=== PATIENT | female | born 1940 | race Caucasian/White ===

== ENCOUNTER 2017-06-14 23:19 | Emergency (ER) | payer MEDICARE, SELFPAY ==
[2017-06-14 23:19] VITALS: BP 201/83; PULSE 102; RESP 16; TEMP 36.3; O2SAT 98; BMI 27.4
[2017-06-14 23:50] VITALS: BP 165/73; PULSE 78; RESP 18; O2SAT 98
--- NOTE | 2017-06-15 00:16 | ED.VISSUMM ---
- ER Visit Summary Date of Service: 06/15/17 Chief Complaint: Allergic reaction History of Present Illness: The patient is a 76 F presents with concerns allergic reaction with itching on the skin in her thighs. No lip or tongue swelling. No trouble breathing. History of psoriasis and itching around these regions. States proximal week ago seen in the ED for swelling of the lips. She is on losartan. Follow-up with her PCP yesterday, losartan is held. She is referred to an knitting inspector pending appointment. No new foods. No change in soaps or detergents. She is only on topical creams for her psoriasis. No history of diabetes. Physical Examination: General: Alert and oriented ?3, no acute distress HEENT: Normocephalic, atraumatic. Moist mucosa membranes Neck: supple, nontender. Cardiovascular: Regular rate and rhythm, no murmurs Respiratory: Normal breath sounds, symmetric, no distress Abdomen: Soft, nontender, nondistended Extremities: Nontender, no edema, pulses intact ?4 Neuro: no focal neurological deficits. Skin: Psoriasis plaques on her bilateral lateral thighs, volar forearm, back or her symptoms are. There is no urticaria. No active drainage. Nontender to palpation. Test Results: [] Emergency Department Course and Treatment: Patient with pruritic symptoms around her psoriasis plaques. There is no signs of infection. She is not a diabetic. She will be placed on prednisone for 10 days. She did an elevated blood pressure 201/83 in the triage. Checked in the room, 190/68. She is on blood pressure medications. She is asymptomatic. She will recheck as an outpatient. Treatment Plan: [] Disposition: Discharge Impression: 1. Psoriasis 2. Elevated blood pressure This note was generated with [employer] software. It may contain incorrect words, spelling, and punctuation that were not noted in review of the chart prior to signing ED Disposition - Plan for ED Patient: Disposition: Home or Assisted Living Chief Complaint: Allergic Reaction Diagnosis: Psoriasis, Elevated blood pressure reading Instructions: ED Psoriasis Prescriptions: Prednisone 20 mg PO DAILY #10 tablet Referrals: Marilu Singletary MD [Primary Care Provider] - 5-7 Days Additional Instructions: Blood pressure 190/68. Take your blood pressure medicines record her blood pressure at home. Follow-up with your doctor. Take steroids as prescribed. Follow-up with her knitting inspector's for evaluation as referred by your PCP.
--- NOTE | 2017-06-15 00:21 | ED.DCSUM_ITS ---
- ER Visit Summary Date of Service: 06/15/17 Chief Complaint: Allergic reaction History of Present Illness: The patient is a 76 F presents with concerns allergic reaction with itching on the skin in her thighs. No lip or tongue swelling. No trouble breathing. History of psoriasis and itching around these regions. States proximal week ago seen in the ED for swelling of the lips. She is on losartan. Follow-up with her PCP yesterday, losartan is held. She is referred to an airplane engineer pending appointment. No new foods. No change in soaps or detergents. She is only on topical creams for her psoriasis. No history of diabetes. Physical Examination: General: Alert and oriented ?3, no acute distress HEENT: Normocephalic, atraumatic. Moist mucosa membranes Neck: supple, nontender. Cardiovascular: Regular rate and rhythm, no murmurs Respiratory: Normal breath sounds, symmetric, no distress Abdomen: Soft, nontender, nondistended Extremities: Nontender, no edema, pulses intact ?4 Neuro: no focal neurological deficits. Skin: Psoriasis plaques on her bilateral lateral thighs, volar forearm, back or her symptoms are. There is no urticaria. No active drainage. Nontender to palpation. Test Results: [] Emergency Department Course and Treatment: Patient with pruritic symptoms around her psoriasis plaques. There is no signs of infection. She is not a diabetic. She will be placed on prednisone for 10 days. She did an elevated blood pressure 201/83 in the triage. Checked in the room, 190/68. She is on blood pressure medications. She is asymptomatic. She will recheck as an outpatient. Treatment Plan: [] Disposition: Discharge Impression: 1. Psoriasis 2. Elevated blood pressure This note was generated with [employer] software. It may contain incorrect words, spelling, and punctuation that were not noted in review of the chart prior to signing ED Disposition - Plan for ED Patient: Disposition: Home or Assisted Living Chief Complaint: Allergic Reaction Diagnosis: Psoriasis, Elevated blood pressure reading Instructions: ED Psoriasis Prescriptions: Prednisone 20 mg PO DAILY #10 tablet Referrals: Marilu Singletary MD [Primary Care Provider] - 5-7 Days Additional Instructions: Blood pressure 190/68. Take your blood pressure medicines record her blood pressure at home. Follow-up with your doctor. Take steroids as prescribed. Follow-up with her airplane engineer's for evaluation as referred by your PCP.
[2017-06-15] MEDS: DiphenhydrAMINE 25 MG Capsule 50 MG PO (00:49)
== END 2017-06-15 00:50 | disposition home or self-care (01) ==
PROVIDERS: Emergency Provider Emergency Medicine; Family Provider Internal Medicine; PCP Internal Medicine
DX: L40.9 Psoriasis, unspecified (principal); I10 Essential (primary) hypertension; E78.00 Pure hypercholesterolemia, unspecified; I25.10 Atherosclerotic heart disease of native coronary artery without angina pectoris; Z95.1 Presence of aortocoronary bypass graft; Z85.3 Personal history of malignant neoplasm of breast; Z72.0 Tobacco use
CPT/HCPCS: 99283

== ENCOUNTER 2017-06-22 20:17 | Observation (INO) | payer MEDICARE, SELFPAY ==
[2017-06-22 20:18] VITALS: BP 181/75; PULSE 72; RESP 18; TEMP 36.7; O2SAT 97; BMI 27.3
--- NOTE | 2017-06-22 20:35 | EKG12_ITS ---
Test Reason : CP Blood Pressure : / mmHG Vent. Rate : 076 BPM Atrial Rate : 076 BPM P-R Int : 164 ms QRS Dur : 094 ms QT Int : 400 ms P-R-T Axes : 068 035 088 degrees QTc Int : 450 ms Normal sinus rhythm Septal infarct , age undetermined Abnormal ECG Confirmed by FAYE DELGADILLO, KAREN ([id number]), news video editor FABIEN COVARRUBIAS ([id number]) on 06/28/2017 2:02:19 PM Referred By: Marilu Singletary Confirmed By:KAREN MCKINNEY MD
--- NOTE | 2017-06-22 20:35 | RAD_ITS ---
STUDY: X-RAY CHEST REASON FOR EXAM: Female, 76 years old. Chest pain TECHNIQUE: Single AP portable view of the chest. COMPARISON: None. FINDINGS: The lungs are clear and expanded. There is no demonstrated pleural abnormality. Normal size heart. Patient status post sternotomy. Normal mediastinum and erasmo. Normal visualized pulmonary arteries. Normal visualized aortic arch and descending thoracic aorta. Normal visualized thoracic spine. Normal visualized ribs, clavicles, and shoulders. Right and left axillary surgical clips. There is no demonstrated abnormality of the visualized soft tissue structures of the upper abdomen. RAD/Chest 1 View (Portable) IMPRESSION: No acute infiltrate. Electronically Signed: Brian Shen DO at 20:57 EST , Service support ,
[2017-06-22 20:39] VITALS: BP 181/75; PULSE 74; RESP 15; O2SAT 95; O2SAT 96
[2017-06-22 20:47] LABS: Absolute Lymphocyte Count 3.33 X10^3/ul (0.83-4.51); Absolute Neutrophil Count 7.6 X10^3/uL (2.0-7.7); Basophil# 0.04 X10^3/uL; Basophil% 0.3 % (0-1); Eosinophil# 0.35 X10^3/uL; Eosinophils% 2.8 % (0-5); Hematocrit 32.7 % (37-47); Hemoglobin 9.8 g/dl (12.0-15.0); Lymphocyte # 3.33 X10^3/ul (4.0); Lymphocyte % 26.9 % (19-41); Mean Corpuscular Volume 80.1 fL (81-99); Mean Platelet Vol. 8.6 fl (6.2-12.0); Monocyte# 1.01 X10^3/uL; Monocyte% 8.2 % (0-10); Neutrophil # 7.61 X10^3/uL (2.7-7.7); Neutrophil % 61.5 % (47-70); Platelet Count 336 K/mm3 (150-450); RBC Distribution Width CV 16.4 % (11.6-14.6); RBC Distribution Width SD 47.8 fl (35.1-43.9); Red Blood Count 4.08 M/mm3 (4.2-5.4); White Blood Count 12.4 K/mm3 (4.4-11.0)
[2017-06-22 20:48] LABS: POSITIVE COUNT NO; POSITIVE DIFFERENTIAL NO; POSITIVE MORPHOLOGY NO
[2017-06-22 21:07] LABS: Anion Gap 9 (5-15); BUN 19 mg/dL (7-18); BUN/Creat Ratio 15.1 RATIO (10-20); Calcium,Total 8.3 mg/dL (8.5-10.1); Chloride 102 mmol/L (98-107); Creatinine, Serum 1.26 mg/dL (0.55-1.02); EST Glomerular Filtration Rate 44 mL/min (>60); Est Glom Filt Rate - Afr Amer 53 mL/min (>60); Estimated Creatinine Clearance 34.18 ml/min; Glucose 102 mg/dL (74-106); Sodium Level 139 mmol/L (136-145)
[2017-06-22 21:20] VITALS: BP 167/72; PULSE 75; RESP 16; O2SAT 100
[2017-06-22 22:15] VITALS: BP 139/62; PULSE 76; RESP 16; O2SAT 97
--- NOTE | 2017-06-22 22:43 | PCM.HP.STD ---
Problem List (1) Atypical chest pain Status: Acute (2) SOB (shortness of breath) on exertion Status: Chronic (3) Sleep disorder breathing Status: Chronic (4) History of mastectomy Status: Resolved (5) GERD (gastroesophageal reflux disease) Status: Chronic (6) HTN (hypertension) Status: Chronic (7) Psoriasis Status: Chronic (8) Carotid stenosis Status: Chronic (9) Paroxysmal A-fib Status: Chronic (10) Hypercholesterolemia Status: Chronic (11) CAD (coronary artery disease) Status: Chronic (12) Effusion, left knee Status: Chronic (13) Osteoarthritis Status: Chronic (14) Sleep disorder Status: Chronic (15) Tobacco abuse Status: Chronic (16) PND (post-nasal drip) Status: Chronic (17) DENVER (obstructive sleep apnea) Status: Chronic History of Present Illness Date of Admission: 06/23/17 Chief Complaint: Chest tightness bilateral today The patient is a 76 year old F with multiple comorbidities including coronary artery disease status post two-vessel CABG and bioprosthetic aortic valve replacement in August 2013, and [facility], his floor coverer Dr. Espinoza bilateral carotid endarterectomy came to ER with chest tightness across both chest in the evening today. Chest pain started spontaneously while patient was feeding her cats, persistent with radiation to bilateral carotids and neck. This was not associated with shortness of breath, palpitation, or syncope but patient felt mildly dizzy and her eyes were fluttering. Patient also had sweating. In the ED, EKG shows normal sinus rhythm at 76 bpm with old septal infarct. No change from the previous EKG of January 2016. Patient is further admitted. [] Past Medical History Past Medical History (Chronic Problems): Chronic Problems (Last Reviewed 06/22/17 @ 17:01 by Marci Zabala NP-C) SOB (shortness of breath) on exertion (Chronic) Sleep disorder breathing (Chronic) GERD (gastroesophageal reflux disease) (Chronic) HTN (hypertension) (Chronic) Psoriasis (Chronic) Carotid stenosis (Chronic) Paroxysmal A-fib (Chronic) Hypercholesterolemia (Chronic) CAD (coronary artery disease) (Chronic) Effusion, left knee (Chronic) Osteoarthritis (Chronic) Sleep disorder (Chronic) Tobacco abuse (Chronic) PND (post-nasal drip) (Chronic) DENVER (obstructive sleep apnea) (Chronic) Allergies Sulfa (Sulfonamide Antibiotics) Allergy (Severe, Verified 06/22/17 12:50) HEART RACING Latex, Natural Rubber Allergy (Verified 06/22/17 12:50) Rash amoxicillin [From Augmentin] Adverse Reaction (Verified 06/22/17 14:25) Nausea atorvastatin [From Lipitor] Adverse Reaction (Verified 06/22/17 14:25) Other CRAMPS clavulanic acid [From Augmentin] Adverse Reaction (Verified 06/22/17 14:25) Nausea Iodinated Contrast- Oral and IV Dye [CONTRASTS] Adverse Reaction (Verified 06/22/17 12:50) Other LOCKJAW niacin [From Niaspan Extended-Release] Adverse Reaction (Verified 06/22/17 14:25) Other FLUSH rosuvastatin [From Crestor] Adverse Reaction (Verified 06/22/17 14:25) Other CRAMPS turkey grease Adverse Reaction (Uncoded 06/22/17 12:50) Rash Home Medications: Ambulatory Orders Medication Instructions Recorded Cilostazol [Pletal] 50 mg PO BIDAC 09/01/13 Clopidogrel Bisulfate [Plavix] 75 mg PO DAILY 09/01/13 Ezetimibe [Zetia] 10 mg PO DAILY 09/01/13 Metoprolol Tartrate [Lopressor 75 mg PO BID 09/01/13 (Beta Johnathon)] Nitroglycerin [Nitrostat] 0.4 mg SUBLINGUAL Q5M PRN 09/01/13 Pantoprazole Sodium [Protonix] 40 mg PO DAILY 09/01/13 Triamterene 37.5MG/Hctz 25MG 1 tab PO DAILY 09/01/13 [Maxzide 37.5 mg-25 mg Tablet] Aspirin E.C. [Ecotrin] 1 tab PO DAILY 01/24/16 Acetaminophen [Tylenol] 325 mg PO PRN PRN 03/08/16 Niacin (Inositol Niacinate) 1,000 mg PO BID 03/08/16 [Niacin Flush Free 500 mg Cap] Prednisone 10 mg PO DAILY 06/22/17 Smoking Status: Never smoker - *Family History Paternal History Items: No pertinent history Review of Systems Constitutional: Denies: Chills, Fever, Weight Change HEENT: Denies: Head Aches, Sinus Congestion, Sinus Drainage Cardiovascular: Reports: Chest Tightness, - - History of CABG. Denies: Chest Pain, Palpitations Respiratory: Reports: Shortness of breath upon exertion. Denies: Cough, Shortness of breath at rest, Sputum production Gastrointestinal: Denies: Abdominal Pain, Nausea, Vomiting Genitourinary: Denies: Dysuria Musculoskeletal: Denies: Joint Pain, Joint Tenderness Skin: Denies: Rash, Wounds Neurological: Denies: Numbness, Tingling, Focal weakness Psychiatric: Denies: Anxiety, Depression, Homicidal Ideations, Suicidal Ideations Hematologic/ Lymphatic: Denies: Easy Bruising, Easy Bleeding VTE Information - Inpt Only VTE Present on Admission: No VTE Mechan Device Prophylaxis: SCD's VTE Pharm Prophylaxis ordered?: Yes Patient Problems: Active and Suspected Problems (Last Reviewed 06/22/17 @ 17:01 by Marci Zabala NP-C) Atypical chest pain (Acute) - Physical Exam General: Alert, Oriented x3, Cooperative HEENT: Atraumatic, PERRLA, EOMI, Normocephalic Neck: Supple, No JVD, Negative Carotid Bruits Lungs: Diminished, Rhonchi - Bilateral expiratory rhonchi present Cardiovascular: Regular rate, Regular Rhythm, Normal S1, Normal S2, No murmurs, - - CABG scar present Abdomen: Bowel Sounds Present, Soft, Non Tender, Non-Distended Extremities: No edema, Capillary Refill Less than 3 Seconds Skin: No breakdown, Rash Present - Patient has diffuse psoriatic rash mainly on lower legs and lumbar spinal region. Musculoskeletal: No Tenderness to Palpation of Joints or Extremities, Arthritic Changes Neurological: Cranial nerves II-XII grossly intact Psych/Mental Status: Normal Affect, Appropriate Vital Signs Temp Pulse Resp BP Pulse Ox 98.1 F 76 16 139/62 H 97 06/22/17 20:18 06/22/17 22:15 06/22/17 22:15 06/22/17 22:15 06/22/17 22:15 Assessment/Plan Active and Suspected Problems (Last Reviewed 06/22/17 @ 17:01 by Marci Zabala NP-C) Atypical chest pain (Acute) The patient is a 76 year old F with multiple comorbidities including coronary artery disease status post two-vessel CABG and bioprosthetic aortic valve replacement in August 2013, and [facility], his floor coverer Dr. Espinoza bilateral carotid endarterectomy, left CVA 1988, right CEA 1998 came to ER with chest tightness across both chest in the evening today. Chest pain started spontaneously while patient was feeding her cats, persistent with radiation to bilateral carotids and neck. This was not associated with shortness of breath, palpitation, or syncope but patient felt mildly dizzy and her eyes were fluttering. Patient also had sweating. In the ED, EKG shows normal sinus rhythm at 76 bpm with old septal infarct. No change from the previous EKG of January 2016. Patient is further admitted. 1. Atypical chest tightness, rule out acute coronary syndrome: Patient is admitted on the PCU. On ACS protocol with serial cardiac enzymes and if negative Lexiscan stress test tomorrow morning. Continue aspirin, Plavix, metoprolol and Zetia. Nitro sublingual and/or Nitro ointment as needed for chest pain 2. Cardiac disease: Coronary artery disease status post two-vessel CABG, valvular heart disease, aortic stenosis status post bioprosthetic bovine aortic valve replacement and paroxysmal A. fib: Continue home cardiac medications. 3. Peripheral arterial disease: Bilateral carotid stenosis: Admission above patient had bilateral CVA. As per patient, last carotid Doppler shows 75% carotid stenosis in left, 65% on right carotid artery. He is on cilostazol. 4. COPD with sleep disorder: Patient is still a smoker and smokes about 5 cigarettes daily, started at the age of 25. Smoking cessation counseling done. On bronchodilator. Advair added. CA breast status post bilateral mastectomy: Patient had right CA breast and benign cyst in the left breast. She had mastectomy in 1988. In remission. 5. Other multiple comorbidities include hypertension, osteoarthritis, obstructive sleep apnea, diffuse cutaneous psoriasis, GERD: Home medication reconciliation done. Code Visit OBSV E&M: 99582 Initial observation care L3
--- NOTE | 2017-06-22 22:53 | ED.VISSUMM ---
- ER Visit Summary Date of Service: 06/22/17 Chief Complaint: Chest pain History of Present Illness: The patient is a [address] Espinoza, Dr. Singletary, and Dr. Neves. She reports is 645 this evening while feeding the cat she had an onset of a substernal pressure and tightness. This radiates up into her neck. Made her very nauseated, diaphoretic, and lightheaded. She reports pain is 5 out of 10 severity at worst and currently. However, she reports that it is worse if she walks around. It is relieved by rest. States that she took nitroglycerin and to decrease the sweating associated with this. Physical Examination: Vitals: Stable. Afebrile. General: Well-nourished and well-developed. Head: Normocephalic atraumatic. Neck: Supple, no lymphadenopathy. No JVD. Nontender. Cardiovascular: Regular rate and rhythm. No murmurs. Respiratory: No respiratory distress. Clear to auscultation bilaterally. Abdominal: Soft, nontender, nondistended, normal bowel sounds. No guarding, rebound, or peritoneal signs. Back: Nontender. Extremities: Nontender, no edema. Skin: Normal color, no rash. Neurologic: Alert and oriented ?3. Cranial nerves II through XII are intact. Normal strength and sensation. Psych: Normal affect. Test Results: EKG is sinus at [address] changes. It actually looks better than her last EKG in 2016. CBC is more for white count of 12.4, H&H of 9.8 and 32.7. Chem-7 is more for BUN of 19, creatinine 1.26, calcium 8.3. Troponin is negative. Chest x-ray shows cardiomegaly and no acute disease. Emergency Department Course and Treatment: She was treated with aspirin. She refused any further nitro or pain medications. She is resting comfortably. Treatment Plan: The patient was discussed with Dr. Costa. She will be admitted to the hospital for further wish and treatment. Disposition: Admitted in improved condition. Impression: 1. Chest pain. 2. AVA score 4. This note was generated with uromovie dictation software. It may contain incorrect words, spelling, and punctuation that were not noted in review of the chart prior to signing ED Disposition - Plan for ED Patient: Chief Complaint: Chest Pain
--- NOTE | 2017-06-22 22:56 | ED.DCSUM_ITS ---
- ER Visit Summary Date of Service: 06/22/17 Chief Complaint: Chest pain History of Present Illness: The patient is a [address] Espinoza, Dr. Singletary, and Dr. Neves. She reports is 645 this evening while feeding the cat she had an onset of a substernal pressure and tightness. This radiates up into her neck. Made her very nauseated, diaphoretic, and lightheaded. She reports pain is 5 out of 10 severity at worst and currently. However, she reports that it is worse if she walks around. It is relieved by rest. States that she took nitroglycerin and to decrease the sweating associated with this. Physical Examination: Vitals: Stable. Afebrile. General: Well-nourished and well-developed. Head: Normocephalic atraumatic. Neck: Supple, no lymphadenopathy. No JVD. Nontender. Cardiovascular: Regular rate and rhythm. No murmurs. Respiratory: No respiratory distress. Clear to auscultation bilaterally. Abdominal: Soft, nontender, nondistended, normal bowel sounds. No guarding, rebound, or peritoneal signs. Back: Nontender. Extremities: Nontender, no edema. Skin: Normal color, no rash. Neurologic: Alert and oriented ?3. Cranial nerves II through XII are intact. Normal strength and sensation. Psych: Normal affect. Test Results: EKG is sinus at [address] changes. It actually looks better than her last EKG in 2016. CBC is more for white count of 12.4, H& H of 9.8 and 32.7. Chem-7 is more for BUN of 19, creatinine 1.26, calcium 8.3. Troponin is negative. Chest x-ray shows cardiomegaly and no acute disease. Emergency Department Course and Treatment: She was treated with aspirin. She refused any further nitro or pain medications. She is resting comfortably. Treatment Plan: The patient was discussed with Dr. Costa. She will be admitted to the hospital for further wish and treatment. Disposition: Admitted in improved condition. Impression: 1. Chest pain. 2. AVA score 4. This note was generated with [employer] dictation software. It may contain incorrect words, spelling, and punctuation that were not noted in review of the chart prior to signing ED Disposition - Plan for ED Patient: Chief Complaint: Chest Pain
[2017-06-22 23:09] VITALS: BP 113/55; PULSE 81; RESP 20; TEMP 36.7; O2SAT 97
[2017-06-23] VITALS (11 sets, daily range): BP systolic 131–143; BP diastolic 58–78; PULSE 70–83; RESP 12–16; TEMP 36.6–37.1; O2SAT 92–98; BMI 27.9; BMI 28.0
[2017-06-23 01:22] LABS: BNP,B-Type NATRIURETIC PEPTIDE 65.4 pg/mL (0-100)
[2017-06-23 05:28] LABS: Absolute Lymphocyte Count 2.55 X10^3/ul (0.83-4.51); Basophil# 0.04 X10^3/uL; Basophil% 0.4 % (0-1); Eosinophil# 0.38 X10^3/uL; Eosinophils% 3.5 % (0-5); Hemoglobin 9.7 g/dl (12.0-15.0); Lymphocyte # 2.55 X10^3/ul (4.0); Lymphocyte % 23.8 % (19-41); Mean Corp Hgb Conc 30.3 g/gl (32-36); Mean Corpuscular Hgb 24.4 pg (27.0-32.0); Mean Corpuscular Volume 80.4 fL (81-99); Mean Platelet Vol. 8.5 fl (6.2-12.0); Monocyte# 0.75 X10^3/uL; Neutrophil # 6.97 X10^3/uL (2.7-7.7); Platelet Count 361 K/mm3 (150-450); RBC Distribution Width CV 16.4 % (11.6-14.6); RBC Distribution Width SD 47.3 fl (35.1-43.9); Red Blood Count 3.98 M/mm3 (4.2-5.4); White Blood Count 10.7 K/mm3 (4.4-11.0)
[2017-06-23 05:34] LABS: International Normalized Ratio 1.1
[2017-06-23 05:35] LABS: Partial Thromboplast Time 31.8 Seconds (24.1-36.2)
[2017-06-23 05:42] LABS: POSITIVE COUNT NO; POSITIVE DIFFERENTIAL NO; POSITIVE MORPHOLOGY NO
[2017-06-23 05:51] LABS: AST(SGOT) 16 U/L (15-37); Alanine Aminotransfer ALT/SGPT 17 U/L (13-56); Albumin, Serum 3.2 g/dL (3.2-5.0); Alkaline Phosphatase 74 U/L (45-117); Anion Gap 7 (5-15); BUN 18 mg/dL (7-18); BUN/Creat Ratio 16.8 RATIO (10-20); Calcium,Total 8.4 mg/dL (8.5-10.1); Chloride 102 mmol/L (98-107); Cholesterol 180 mg/dL (200); Creatinine, Serum 1.07 mg/dL (0.55-1.02); EST Glomerular Filtration Rate 53 mL/min (>60); Est Glom Filt Rate - Afr Amer 64 mL/min (>60); Estimated Creatinine Clearance 38.63 ml/min; Globulin 3.3 g/dL (2.2-4.2); Glucose 83 mg/dL (74-106); High Density Lipoprotein 56 mg/dL; Magnesium 2.1 mg/dL (1.6-2.6); Potassium 4.1 mmol/L (3.5-5.1); Protein, Total 6.5 g/dL (6.4-8.2); Sodium Level 139 mmol/L (136-145); Thyroid Stim Hormone (TSH) 4.38 uIU/mL (0.358-3.74); Triglycerides 162 mg/dL; Very Low Density Lipoprotein 32 mg/dL (5-40)
--- NOTE | 2017-06-23 05:55 | EKG12_ITS ---
Test Reason : EM AKG Blood Pressure : / mmHG Vent. Rate : 077 BPM Atrial Rate : 077 BPM P-R Int : 152 ms QRS Dur : 092 ms QT Int : 386 ms P-R-T Axes : 067 018 097 degrees QTc Int : 436 ms Normal sinus rhythm Septal infarct , age undetermined Abnormal ECG When compared with ECG of 22-JUN-2017 20:22, MANUAL COMPARISON REQUIRED, DATA IS UNCONFIRMED Confirmed by FAYE DELGADILLO, KAREN ([id number]), state editor FABIEN COVARRUBIAS ([id number]) on 06/29/2017 1:18:59 PM Referred By: Confirmed By:KAREN MCKINNEY MD
[2017-06-23] MEDS: Aspirin E.C. 81 MG Tablet PO (06:32)
[2017-06-23] MEDS: Clopidogrel Bisulfate 75 MG Tablet PO (06:32)
[2017-06-23] MEDS: Cilostazol 50 MG Tablet PO (06:32)
[2017-06-23] MEDS: 0.9% NaCl Peripheral Flush Adult/Peds IV (06:34)
--- NOTE | 2017-06-23 10:47 | STRESSREP ---
Stress Test Report Pharmacologic myocardial perfusion stress test. 76-year-old lady with a history of chest pain. Stress protocol: Resting EKG demonstrates normal sinus rhythm with a rate of 83 bpm. Resting blood pressure is 184/70 mmHg. 0.4 mg of regadenoson was infused per usual protocol followed by rapid intravenous saline flush injection. Continuous EKG monitoring was performed. There were no ST or T-wave changes noted suggest abnormal flow reserve and at peak infusion no ST or T-wave changes were noted to suggest abnormal flow reserve. No clinical angina was noted. Heart rate attained was 96 bpm which was 66% maximum predicted heart rate the maximum workload was 1 metabolic equivalent. Myocardial perfusion protocol. 11.2 mCi of technetium 99m sestamibi was injected at rest. 0.4 mg of regadenoson was infused per usual protocol. Peak infusion 32.8 mCi of technetium 99m sestamibi was injected. Stress images were obtained. Stress and rest images were reconstructed and compared in the short axis vertical long and horizontal long axis. Gated images were also obtained. Perfusion SPECT analysis: Review of the stress images demonstrate normal uptake of tracer noted in all areas of the myocardium. The resting images similarly demonstrate normal uptake of tracer noted in all areas of the myocardium. No areas of reversibility are noted suggest ischemia. Gated SPECT analysis: The gated ejection fraction is noted to be 83%. Conclusion: Normal pharmacologic myocardial perfusion stress test. Preserved ejection fraction.
--- NOTE | 2017-06-23 11:04 | PCM.DC ---
- Discharge Diagnoses Current Active Problems: Current Active and Chronic Problems (Last Reviewed 06/22/17 @ 17:01 by JACLYN Morales) Atypical chest pain (Acute) You will use the following diet at home:: Cardiac Discharge Activity: Return to Normal Activity Call your doctor if you observe: Shortness of breath, Dizziness, Fainting spells, Chest pain, Increased palpitations (irregular heartbeat) Allergies/Adverse Reactions: Allergies Sulfa (Sulfonamide Antibiotics) Allergy (Severe, Verified 06/22/17 12:50) HEART RACING Latex, Natural Rubber Allergy (Verified 06/22/17 12:50) Rash amoxicillin [From Augmentin] Adverse Reaction (Verified 06/22/17 14:25) Nausea atorvastatin [From Lipitor] Adverse Reaction (Verified 06/22/17 14:25) Other CRAMPS clavulanic acid [From Augmentin] Adverse Reaction (Verified 06/22/17 14:25) Nausea Iodinated Contrast- Oral and IV Dye [CONTRASTS] Adverse Reaction (Verified 06/22/17 12:50) Other LOCKJAW niacin [From Niaspan Extended-Release] Adverse Reaction (Verified 06/22/17 14:25) Other FLUSH rosuvastatin [From Crestor] Adverse Reaction (Verified 06/22/17 14:25) Other CRAMPS turkey grease Adverse Reaction (Uncoded 06/22/17 12:50) Rash Medications to take at Discharge Cilostazol [Pletal] 50 mg PO BIDAC 09/01/13 Clopidogrel Bisulfate [Plavix] 75 mg PO DAILY 09/01/13 Ezetimibe [Zetia] 10 mg PO DAILY 09/01/13 Metoprolol Tartrate [Lopressor (beta mariah)] 75 mg PO BID 09/01/13 Nitroglycerin [Nitrostat] 0.4 mg SUBLINGUAL Q5M PRN 09/01/13 Pantoprazole Sodium [Protonix] 40 mg PO DAILY 09/01/13 Triamterene 37.5MG/Hctz 25MG [Maxzide 37.5 mg-25 mg Tablet] 1 tab PO DAILY 09/01/13 Aspirin E.C. [Ecotrin] 1 tab PO DAILY 01/24/16 Acetaminophen [Tylenol] 325 mg PO PRN PRN 03/08/16 Niacin (Inositol Niacinate) [Niacin Flush Free 500 mg Cap] 1,000 mg PO BID 03/08/16 Primary Care Physician: Marilu Singletary MD [Primary Care Provider] - Please follow up with your Primary Care Physician in: 3-5 Days Please Follow Up With: Tanner Bro MD When: 1-2 Weeks Please Follow Up With: Sung Neves DO When: As scheduled Proposed Discharge Date: 06/23/17
--- NOTE | 2017-06-23 11:08 | DCINST_ITS ---
- Discharge Diagnoses Current Active Problems: Current Active and Chronic Problems (Last Reviewed 06/22/17 @ 17:01 by JACLYN Morales) Atypical chest pain (Acute) You will use the following diet at home:: Cardiac Discharge Activity: Return to Normal Activity Call your doctor if you observe: Shortness of breath, Dizziness, Fainting spells , Chest pain, Increased palpitations (irregular heartbeat) Allergies/Adverse Reactions: Allergies Sulfa (Sulfonamide Antibiotics) Allergy (Severe, Verified 06/22/17 12:50) HEART RACING Latex, Natural Rubber Allergy (Verified 06/22/17 12:50) Rash amoxicillin [From Augmentin] Adverse Reaction (Verified 06/22/17 14:25) Nausea atorvastatin [From Lipitor] Adverse Reaction (Verified 06/22/17 14:25) Other CRAMPS clavulanic acid [From Augmentin] Adverse Reaction (Verified 06/22/17 14:25) Nausea Iodinated Contrast- Oral and IV Dye [CONTRASTS] Adverse Reaction (Verified 06/22 12:50) Other LOCKJAW niacin [From Niaspan Extended-Release] Adverse Reaction (Verified 06/22/17 14:25 ) Other FLUSH rosuvastatin [From Crestor] Adverse Reaction (Verified 06/22/17 14:25) Other CRAMPS turkey grease Adverse Reaction (Uncoded 06/22/17 12:50) Rash Medications to take at Discharge Cilostazol [Pletal] 50 mg PO BIDAC 09/01/13 Clopidogrel Bisulfate [Plavix] 75 mg PO DAILY 09/01/13 Ezetimibe [Zetia] 10 mg PO DAILY 09/01/13 Metoprolol Tartrate [Lopressor (beta mariah)] 75 mg PO BID 09/01/13 Nitroglycerin [Nitrostat] 0.4 mg SUBLINGUAL Q5M PRN 09/01/13 Pantoprazole Sodium [Protonix] 40 mg PO DAILY 09/01/13 Triamterene 37.5MG/Hctz 25MG [Maxzide 37.5 mg-25 mg Tablet] 1 tab PO DAILY 09/01 Aspirin E.C. [Ecotrin] 1 tab PO DAILY 01/24/16 Acetaminophen [Tylenol] 325 mg PO PRN PRN 03/08/16 Niacin (Inositol Niacinate) [Niacin Flush Free 500 mg Cap] 1,000 mg PO BID 03/08 Primary Care Physician: Marilu Singletary MD [Primary Care Provider] - Please follow up with your Primary Care Physician in: 3-5 Days Please Follow Up With: Tanner Bro MD When: 1-2 Weeks Please Follow Up With: Sung Neves DO When: As scheduled Proposed Discharge Date: 06/23/17
--- NOTE | 2017-06-23 11:09 | PCM.DC.SUM ---
Discharge Date and Diagnosis Date of Admission: 06/23/17 Date of Discharge: 06/23/17 - Primary Discharge Diagnosis Active and Suspected Problems (Last Reviewed 06/22/17 @ 17:01 by JACLYN Morales) 1. Atypical chest pain- ACS ruled out. - Secondary Discharge Diagnosis Chronic Problems (Last Reviewed 06/22/17 @ 17:01 by JACLYN Morales) SOB (shortness of breath) on exertion (Chronic) Sleep disorder breathing (Chronic) GERD (gastroesophageal reflux disease) (Chronic) HTN (hypertension) (Chronic) Psoriasis (Chronic) Carotid stenosis (Chronic) Paroxysmal A-fib (Chronic) Hypercholesterolemia (Chronic) CAD (coronary artery disease) (Chronic) Effusion, left knee (Chronic) Osteoarthritis (Chronic) Sleep disorder (Chronic) Tobacco abuse (Chronic) PND (post-nasal drip) (Chronic) [place] (obstructive sleep apnea) (Chronic) Hospital Course and Treatment Imaging Results: 06/23/17 05:55 Nuclear Stress Test - Chemical [NM] AM (NON MEDS) Operations: None Procedures: Stress test Summary of Care Provided: The patient is a 76 year old F admitted 06/23/2017 due to chest tightness. 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 ACS ruled out. Troponin negative. Patient underwent nuclear stress test which was negative for ischemia. Chest x-ray unremarkable. She follows with Dr. Bro [facility]. Patient will continue outpatient follow-up with cardiology. She follows up with vascular at [facility] for carotid artery stenosis. Patient is undergoing workup for COPD with Dr. Neves. Chest pain has resolved. Patient was started on prednisone and Benadryl as outpatient for reported hives of unknown etiology. These were discontinued going forward. Chronic medical conditions as noted above are stable at this time. Patient seen and examined prior to discharge. Heart rate regular in rate and rhythm. Lungs clear, diminished. Neuro grossly intact. No edema. Patient is stable for discharge home with the follow-up as noted above. This patient was seen by JACLYN Escamilla under the supervision of Dr. Leong. Discharge Diet: Low fat/ Low Cholesterol Discharge Activity: Return to Normal Activity Call your doctor if you observe: Shortness of breath, Dizziness, Fainting spells, Chest pain, Increased palpitations (irregular heartbeat) Home Medications: Medications to take at Discharge Cilostazol [Pletal] 50 mg PO BIDAC 09/01/13 Clopidogrel Bisulfate [Plavix] 75 mg PO DAILY 09/01/13 Ezetimibe [Zetia] 10 mg PO DAILY 09/01/13 Metoprolol Tartrate [Lopressor (beta mariah)] 75 mg PO BID 09/01/13 Nitroglycerin [Nitrostat] 0.4 mg SUBLINGUAL Q5M PRN 09/01/13 Pantoprazole Sodium [Protonix] 40 mg PO DAILY 09/01/13 Triamterene 37.5MG/Hctz 25MG [Maxzide 37.5 mg-25 mg Tablet] 1 tab PO DAILY 09/01/13 Aspirin E.C. [Ecotrin] 1 tab PO DAILY 01/24/16 Acetaminophen [Tylenol] 325 mg PO PRN PRN 03/08/16 Niacin (Inositol Niacinate) [Niacin Flush Free 500 mg Cap] 1,000 mg PO BID 03/08/16 Primary Care Physician: Marilu Singletary MD [Primary Care Provider] - Please follow up with your Primary Care Physician in: 3-5 Days Please Follow Up With: Tanner Bro MD When: 1-2 Weeks Please Follow Up With: Sung Neves DO When: As scheduled Disposition: Home Minutes spent on discharge:: 35 Patient Condition:: Stable Meaningful Use Info Meaningful Use Diagnoses (Choose all that apply): None applicable
[2017-06-23] MEDS: Pantoprazole Sodium 40 MG Tablet PO (11:16)
[2017-06-23] MEDS: Metoprolol Tartrate 25 MG Tablet 75 MG PO (11:16)
--- NOTE | 2017-06-23 11:22 | DS.PCM_ITS ---
Discharge Date and Diagnosis Date of Admission: 06/23/17 Date of Discharge: 06/23/17 - Primary Discharge Diagnosis Active and Suspected Problems (Last Reviewed 06/22/17 @ 17:01 by JACLYN Morales) 1. Atypical chest pain- ACS ruled out. - Secondary Discharge Diagnosis Chronic Problems (Last Reviewed 06/22/17 @ 17:01 by JACLYN Morales) SOB (shortness of breath) on exertion (Chronic) Sleep disorder breathing (Chronic) GERD (gastroesophageal reflux disease) (Chronic) HTN (hypertension) (Chronic) Psoriasis (Chronic) Carotid stenosis (Chronic) Paroxysmal A-fib (Chronic) Hypercholesterolemia (Chronic) CAD (coronary artery disease) (Chronic) Effusion, left knee (Chronic) Osteoarthritis (Chronic) Sleep disorder (Chronic) Tobacco abuse (Chronic) PND (post-nasal drip) (Chronic) [place] (obstructive sleep apnea) (Chronic) Hospital Course and Treatment Imaging Results: 06/23/17 05:55 Nuclear Stress Test - Chemical [NM] AM (NON MEDS) Operations: None Procedures: Stress test Summary of Care Provided: The patient is a 76 year old F admitted 06/23/2017 due to chest tightness. 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 ACS ruled out. Troponin negative. Patient underwent nuclear stress test which was negative for ischemia. Chest x-ray unremarkable. She follows with Dr. Bro [facility]. Patient will continue outpatient follow-up with cardiology. She follows up with vascular at [facility] for carotid artery stenosis. Patient is undergoing workup for COPD with Dr. Neves. Chest pain has resolved. Patient was started on prednisone and Benadryl as outpatient for reported hives of unknown etiology. These were discontinued going forward. Chronic medical conditions as noted above are stable at this time. Patient seen and examined prior to discharge. Heart rate regular in rate and rhythm. Lungs clear, diminished. Neuro grossly intact. No edema. Patient is stable for discharge home with the follow-up as noted above. This patient was seen by JACLYN Escamilla under the supervision of Dr. Leong. Discharge Diet: Low fat/ Low Cholesterol Discharge Activity: Return to Normal Activity Call your doctor if you observe: Shortness of breath, Dizziness, Fainting spells , Chest pain, Increased palpitations (irregular heartbeat) Home Medications: Medications to take at Discharge Cilostazol [Pletal] 50 mg PO BIDAC 09/01/13 Clopidogrel Bisulfate [Plavix] 75 mg PO DAILY 09/01/13 Ezetimibe [Zetia] 10 mg PO DAILY 09/01/13 Metoprolol Tartrate [Lopressor (beta mariah)] 75 mg PO BID 09/01/13 Nitroglycerin [Nitrostat] 0.4 mg SUBLINGUAL Q5M PRN 09/01/13 Pantoprazole Sodium [Protonix] 40 mg PO DAILY 09/01/13 Triamterene 37.5MG/Hctz 25MG [Maxzide 37.5 mg-25 mg Tablet] 1 tab PO DAILY 09/01 Aspirin E.C. [Ecotrin] 1 tab PO DAILY 01/24/16 Acetaminophen [Tylenol] 325 mg PO PRN PRN 03/08/16 Niacin (Inositol Niacinate) [Niacin Flush Free 500 mg Cap] 1,000 mg PO BID 03/08 Primary Care Physician: Marilu Singletary MD [Primary Care Provider] - Please follow up with your Primary Care Physician in: 3-5 Days Please Follow Up With: Tanner Bro MD When: 1-2 Weeks Please Follow Up With: Sung Neves DO When: As scheduled Disposition: Home Minutes spent on discharge:: 35 Patient Condition:: Stable Meaningful Use Info Meaningful Use Diagnoses (Choose all that apply): None applicable
[2017-06-23] MEDS: Albuterol 2.5 MG/3 ML VIAL.NEB. INHALATION (12:55)
[2017-06-23] MEDS: Budesonide Respules 0.5 MG/2 ML AMPUL.NEB. INHALATION (12:55)
== END 2017-06-23 11:06 | disposition home or self-care (01) ==
LOC: ED 20:54 → PCU 22:42
PROVIDERS: Admitting Provider Internal Medicine; Emergency Provider Emergency Medicine; Family Provider Internal Medicine; PCP Internal Medicine; Visit Provider Family Medicine
DX: R07.89 Other chest pain (principal); K21.9 Gastro-esophageal reflux disease without esophagitis; I10 Essential (primary) hypertension; L40.9 Psoriasis, unspecified; I48.0 Paroxysmal atrial fibrillation; E78.00 Pure hypercholesterolemia, unspecified; I25.10 Atherosclerotic heart disease of native coronary artery without angina pectoris; M19.90 Unspecified osteoarthritis, unspecified site; G47.33 Obstructive sleep apnea (adult) (pediatric); Z95.1 Presence of aortocoronary bypass graft; Z95.2 Presence of prosthetic heart valve; Z79.899 Other long term (current) drug therapy; Z79.02 Long term (current) use of antithrombotics/antiplatelets; Z79.82 Long term (current) use of aspirin; J44.9 Chronic obstructive pulmonary disease, unspecified; I65.23 Occlusion and stenosis of bilateral carotid arteries; I73.9 Peripheral vascular disease, unspecified; Z85.3 Personal history of malignant neoplasm of breast; R06.02 Shortness of breath; F17.210 Nicotine dependence, cigarettes, uncomplicated; K90.9 Intestinal malabsorption, unspecified; D50.9 Iron deficiency anemia, unspecified
CPT/HCPCS: 36415; 71045; 78452; 80048; 80053; 80061; 83735; 83880; 84443; 84484; 85025; 85610; 85730; 93005; 93017; 94640; 99218; 99285; 99406; A9500; J1756; J7030; J7050; A4216; G0378; J2785

== ENCOUNTER → 2017-06-22 | Outpatient (CLI) | payer MEDICARE, SELFPAY ==
[2017-06-22 14:09] VITALS: BP 170/68; PULSE 81; RESP 18; TEMP 36.5; O2SAT 98; BMI 27.3
[2017-06-22 15:52] VITALS: BP 151/62
== END | disposition home or self-care (01) ==
PROVIDERS: Family Provider Internal Medicine; PCP Internal Medicine; Visit Provider Internal Medicine
DX: D64.9 Anemia, unspecified (principal); K90.9 Intestinal malabsorption, unspecified
CPT/HCPCS: 96365; J1756; J7050; A4216

== ENCOUNTER → 2017-06-24 10:46 | Outpatient (CLI) | payer MEDICARE, SELFPAY ==
[2017-06-24 12:31] LABS: Absolute Lymphocyte Count 1.48 X10^3/ul (0.83-4.51); Absolute Neutrophil Count 7.5 X10^3/uL (2.0-7.7); Basophil# 0.03 X10^3/uL; Basophil% 0.3 % (0-1); Eosinophil# 0.16 X10^3/uL; Eosinophils% 1.6 % (0-5); Hemoglobin 9.1 g/dl (12.0-15.0); Lymphocyte # 1.48 X10^3/ul (4.0); Lymphocyte % 14.8 % (19-41); Mean Corp Hgb Conc 29.4 g/gl (32-36); Mean Corpuscular Hgb 23.8 pg (27.0-32.0); Mean Corpuscular Volume 81.2 fL (81-99); Mean Platelet Vol. 9.3 fl (6.2-12.0); Monocyte# 0.81 X10^3/uL; Monocyte% 8.1 % (0-10); Neutrophil # 7.48 X10^3/uL (2.7-7.7); Neutrophil % 74.5 % (47-70); Platelet Count 357 K/mm3 (150-450); RBC Distribution Width CV 16.5 % (11.6-14.6); RBC Distribution Width SD 47.2 fl (35.1-43.9); Red Blood Count 3.82 M/mm3 (4.2-5.4)
[2017-06-24 12:49] LABS: ALB/GLOB Ratio 1.1 RATIO (0.9-2.4); AST(SGOT) 17 U/L (15-37); Alanine Aminotransfer ALT/SGPT 17 U/L (13-56); Albumin, Serum 3.1 g/dL (3.2-5.0); Alkaline Phosphatase 71 U/L (45-117); Amylase 35 U/L (25-115); Anion Gap 7 (5-15); BUN 18 mg/dL (7-18); BUN/Creat Ratio 18.1 RATIO (10-20); Calcium,Total 7.7 mg/dL (8.5-10.1); Chloride 105 mmol/L (98-107); Creatinine, Serum 0.99 mg/dL (0.55-1.02); EST Glomerular Filtration Rate 58 mL/min (>60); Est Glom Filt Rate - Afr Amer 70 mL/min (>60); Globulin 2.8 g/dL (2.2-4.2); Glucose 113 mg/dL (74-106); Lipase 151 U/L (73-393); Potassium 4.6 mmol/L (3.5-5.1); Protein, Total 5.9 g/dL (6.4-8.2); Sodium Level 141 mmol/L (136-145)
[2017-06-24 12:55] LABS: POSITIVE COUNT NO; POSITIVE DIFFERENTIAL NO; POSITIVE MORPHOLOGY NO
[2017-06-24 12:58] LABS: Erythrocyte Sedimentation Rate 13 mm/hr (0-30)
== END ==
PROVIDERS: Family Provider Internal Medicine; PCP Internal Medicine; Visit Provider Internal Medicine
DX: R10.11 Right upper quadrant pain (principal)
CPT/HCPCS: 80053; 82150; 83690; 85025; 85652

== ENCOUNTER → 2017-06-27 10:13 | Outpatient (CLI) | payer MEDICARE, SELFPAY ==
--- NOTE | 2017-06-27 10:17 | CT_ITS ---
STUDY: CT ABDOMEN AND PELVIS WITHOUT CONTRAST REASON FOR EXAM: Female, 76 years old. Chronic right lower quadrant pain. History of breast cancer. RADIATION DOSAGE (If Supplied By Facility): CTDIvol = ( 9.87 ) mGy, DLP = ( 483.23 ) mGycm TECHNIQUE: Transaxial images were obtained from the dome of the diaphragm to the symphysis pubis without oral contrast, and without intravenous contrast. Sagittal and coronal images were reconstructed. Individualized dose optimization techniques were used for this CT. COMPARISON: None. FINDINGS: The visualized lung bases are unremarkable. Coronary artery calcification. Prior CABG. Normal liver. Normal gallbladder and extrahepatic biliary system. Normal spleen. Normal pancreas. Normal bilateral adrenal glands. Normal right kidney. Normal left kidney. Normal visualized stomach. Normal small intestine. There are multiple colonic diverticula consistent with diverticulosis. The appendix is visualized and appears normal. There is diffuse atherosclerotic calcification of the abdominal aorta and its major visceral branches, without a demonstrated aneurysm. Normal inferior vena cava. Normal retroperitoneum. Normal urinary bladder. There is a small umbilical hernia containing fat. Small right inguinal hernia containing fat. Normal osseous structures. CT/Abdomen/Pelvis without Cont IMPRESSION: Sigmoid diverticulosis. Electronically Signed: Manolo Sierra MD at 11:15 EST Tel [phone], Service support ,
== END ==
PROVIDERS: Family Provider Internal Medicine; PCP Internal Medicine; Visit Provider Internal Medicine
DX: R10.31 Right lower quadrant pain (principal)
CPT/HCPCS: 74176

== ENCOUNTER → 2017-09-13 13:18 | Outpatient (CLI) | payer MEDICARE, SELFPAY ==
--- NOTE | 2017-09-13 13:40 | CPS ---
Patient attempted testing and is not able to keep nose clips on or mouth piece in her mouth. Explained to patient that we need those things so we can measure all of the air she is breathing in and out for testing and that she would need to use those for proper Pulmonary Function Testing. Patient states she feels like she is going to throw up when her nose is plugged and cannot do the testing.
--- NOTE | 2017-09-13 13:45 | CPS ---
Patient attempted pulmonary function testing but cannot keep the nose clips on or the mouth piece in her mouth needed for proper testing. Patient states that she feels like she is going to throw up every time she puts the nose clips on. Patient refused to do testing at this time.
== END ==
PROVIDERS: Family Provider Internal Medicine; PCP Internal Medicine; Visit Provider Nurse Practitioner Acute Care
DX: R06.02 Shortness of breath (principal)

== ENCOUNTER → 2018-04-11 12:36 | Outpatient (CLI) | payer MEDICARE, SELFPAY ==
--- NOTE | 2018-04-11 12:59 | BD_ITS ---
STUDY: DUAL ENERGY X-RAY ABSORPTIOMETRY / DXA REASON FOR EXAM: Female, 77 years old. The patient is postmenopausal. History of breast cancer. Loss of height. TECHNIQUE: Bone Mineral Density (BMD) measurements of lumbar spine and bilateral hips were obtained. COMPARISON: Comparison is made with prior study dated February 24, 2016. FINDINGS: Lumbar Spine (L1-L4): g/cm2 (1.208) / T-score (0.1) / Z-score (1.9) Findings are suggestive of normal bone density with a low fracture risk. Increased thoracic kyphosis. Left Femur Total: g/cm2 (0.966) / T-score (-0.3) / Z-score (1.5) Left Femoral Neck: g/cm2 (0.892) / T-score (-1.1) / Z-score (1.0) Right Femur Total: g/cm2 (0.940) / T-score (-0.5) / Z-score (1.3) Right Femoral Neck: g/cm2 (0.837) / T-score (-1.4) / Z-score (0.6) The T-Scores on the most recent prior examination were: Lumbar Spine (L1-L4): There has been improvement of bone density since the previous examination. Left Femur Total: which represents an improvement of 2.8%. Right Femur Total: which represents an improvement of 0.4%. BD/Dexa Bone Density Study IMPRESSION: The patient is considered osteopenic as outlined below according to World Brandon Organization (WHO) criteria with a low fracture risk. There has been improvement of bone density since the previous examination. Reference Information: The T-score is the number of standard deviations above or below the standard which is normal for young adults at their peak bone mineral density. The World Health Organization (WHO) interprets the T-scores as follows: Above -1 Normal bone density Between -1 and -2.5 Osteopenia Equal to / or below -2.5 Osteoporosis As a practical clinical guideline, osteopenia may be graded as follows: Mild -1 through -1.5 Moderate -1.6 through -2.0 Severe -2.1 through -2.4 The Z-score is the number of standard deviations above or below age-matched controls. A Z-score of less than -1.5 would be considered abnormal. References: 1. NIH Osteoporosis and Related Bone Diseases http://www.osteo.org 2. International Society for Clinical Densitometry http://www.iscd.org 3. National Osteoporosis Foundation http://www.nof.org Electronically Signed: Manolo Sierra MD at 14:26 EST Tel [phone], Service support ,
--- OUTSIDE RECORDS SUMMARY | 2018-07-13 22:34 | XMS RPT_ITS | Continuity of Care Document ---
:1940 Author Organization [facility] Address [facility] [address] [place] [address] Phone Care Team Providers Name Role Phone Gemini DELGADILLO, Marilu Harris Unavailable Hearing Services-- Aldo Estrada Unavailable Phyllis Mcghee Unavailable Jean Pierre DELGADILLO, Hector Robins Unavailable Venice DELGADILLO, Brian Martínez Unavailable Luis DELGADILLO, Omega Lucero Unavailable Jae Glez MD Unavailable Dr. Dav Montero Unavailable Marilu Uribe MD Unavailable Toro Meek MD Unavailable TANNER Menendez Unavailable Unavailable Unavailable Unavailable Problems Name Dates Details Abdominal pain, acute, right lower quadrant (Renamed from Acute abdominal pain in right lower quadrant) (R10.31, 789.03) Comments: pt still having alot she now thinks that had chronic RLL pain into back for 3months. worsen after venofer. she though hip now think in abd. Status: Active Abdominal pain, acute, right upper quadrant (Renamed from Acute abdominal pain in right upper quadrant) (R10.11, 789.01) Status: Active Anemia (D64.9, 285.9) Status: Active Annual Medicare Physical (Z00.01, V70.0) Comments: 03-07-17 Medicare exam:03-07-17 [facility] reviewed with patient all questions. bilateral mastectomy. scope 2005 Dr. Smith states will not do anymore with age and comorbidities talk about again a ndtold if would consider than do cologuard her mother had poluyps . refuse immunizations. recommend bring copy here. BD 03-10 Status: Active Aortic valve disorder (I35.9, 424.1) Comments: replaced wt pericardial prosthesis. Status: Active BMI 29.0-29.9,adult (Z68.29, V85.25) Status: Active Carotid stenosis (I65.29, 433.10) Comments: Dr. Carroll orders, left 70% consider surgery soon. she refuse the CEA past. was in hospital for vertigo. not think stroke seeing Dr. casie meeks in past. seen in hospital and told asymptoma tic. MRI brain and US vertebral. carotids 11-08 and other 1999CTA showed 79% stenosis in right carotid bulb, and proximal internal carotid artery, and 60% stenosis in the proximal left internal carotid artery Status: Active Chronic nonintractable headache, unspecified headache type (R51, 784.0) Comments: think relaed to ension, could be related venofer because worse after that. ? sinus. Status: Active Coronary artery disease (I25.10, 414.00) Comments: stable had CAB. see Dr. carroll reviewed with patient specialist's note [facility]. 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 was taken off plavix and on 2 asa. 11-02-13 treadmill stress good. did rehab stable. seen Dr. carroll. she had some chest tightness with reaction and mo re fatigue. she thought musclar. will see Dr. carroll soon. Status: Active Deliveries (Parity) Comments: 2 Status: Active Diabetes mellitus type II, controlled, with no complications (Renamed from Controlled type 2 diabetes mellitus without complication) (E11.9, 250.00) Comments: 03-07-17 6.6% Status: Active Excessive daytime sleepiness (G47.19, 780.54) Comments: ? narcolepsy or [place]. passign out recomend see sleep lab but holdign off until see Dr. neves. Status: Active Gastroesophageal reflux disease without esophagitis (K21.9, 530.81) Comments: hx of duod ulcer. smith has her on PPI now with new literature told could try zantac, told risk of gastritis and bleeding Status: Active Hives (L50.9, 708.9) Comments: pt poor historian. but 2 episodes wonder angioedema by description will check C1 esterase inhibitor. w saw Dr. montero. did alergy testing and negative. still lip swelling episodic is off the [place]. now with benadryl every night not get again. Status: Active Hypercholesterolemia (E78.00, 272.0) Comments: MPO high so will add fish oil. cod liver oil. told how to take. handout given on fish oils. she is on niacin long talk about about stoppoing with sugars but upset her so much and flush free so just allegra p on this. will do [facility]. LDL higher than want but particle number and small particles not as bad as thought whoudl be. consider curcumin Status: Active Hyperlipidemia, mild (E78.5, 272.4) Comments: reveiwed with patient recent tests adn not able to take statins on niacin ? help because flush free. consider later PCKS9a Status: Active Iron deficiency anemia due to chronic blood loss (D50.0, 280.0) Comments: saw Dr. smith but with ministroke held on scopes. history of duod ulcer. feel good on protonix. right now on 1 baby aspirin, no nsiads. off iron and hgb and ferrtin went down./ not take ferrex both er stomach recheck labs. hgb lower and want her to be scoped will do CT scan talke to her again about doing colonscopy now that other medical issues stable. reaction to iron IV but able to do it in small dose IV Status: Active Malabsorption (K90.9, 579.9) Status: Active Mild hypertension (I10, 401.9) Comments: off losartan with lipi swelling. change dyazide to loop. Status: Active Paroxysmal a-fib (I48.0, 427.31) Comments: saw EP 02-05 and stable. Status: Active Personal history of breast cancer (Z85.3, V10.3) Comments: stable bilateral mastectomy Status: Active Personal history of TIA (transient ischemic attack) (Z86.73, V12.54) Comments: still gets small visiual ones told need to see about surgery at [facility] adn she will talkt to Dr. carroll talk to Dr. carroll and he willsee in in office and will go to plavix with one aspirin. will get US through him. know if worsen then usual TIA signs and symptoms then ER Status: Active Postnasal drip (R09.82, 784.91) Comments: makes cough at times. talka meka tynetti pot to rinse. Status: Active Pregnancies () Comments: 2 Status: Active Psoriasis (L40.9, 696.1) Comments: some around eye and near lid. will give steriod drop for eye and this area where irritated.only use for week Status: Active Renal insufficiency (N28.9, 593.9) Comments: told to increase water intake. talk about try zantac instead of PPI but GI want on PPI with ulcer histoyr Status: Active Stress reaction (Renamed from Acute reaction to stress) (F43.0, 308.9) Comments: with sister alot issues and live in her home. notice some signs and symptoms with upset. sister live with her and butt head. granddtr of her sister issues. niece with fetus have issues. Status: Active Subclavian artery stenosis, right (I77.1, 447.1) Comments: seen on us 10-16 will get reoprt form [facility]. Status: Active Tinnitus, left (H93.12, 388.30) Comments: seen Dr. alfaro ENT. MRI negative over year ? virus. saw Dr workman and told her what cause. told to avoid certain foods and better. not able to have caffiene it is better. Status: Active Tobacco use disorder (Renamed from Nondependent tobacco use disorder) (F17.200, 305.1) Comments: quit 5-14. she restart 12-15 because of stress sneak some. talk about stress and see counselor. has smoked for over 50 years, now 3-5 cigs a day but previous 1PPDLDCT 3-17 Status: Active Vitamin D insufficiency (E55.9, 268.9) Status: Active Medications Name Dates Details ASPIRIN, 81MG (Oral Tablet) 1 (one) Tablet QD for 0 days Quantity: 60 {Tablet} Refills: 0 Ordered:21-Aug-2015 Marilu Uribe MD, MD, Dana M Start : 21-Aug-2015 Active Basic's Multi Vitamin 1 qd Active Comments:with iron Gluten Free (18 mg ferrous sulfate) Cilostazol 50 MG Oral Tablet 1 (one) Tablet bid for 0 days Quantity: 180 {Tablet} Refills: 3 Ordered:24-Jan-2018 Marilu Uribe MD, MD, Dana M Start : 24-Jan-2018 Active Clopidogrel Bisulfate 75 MG Oral Tablet 1 Tablet daily for 0 days Quantity: 90 {Tablet} Refills: 3 Ordered:24-Jan-2018 Marilu Uribe MD, MD, Dana M Start : 24-Jan-2018 Active Lasix 20 MG Oral Tablet 1/2 Tablet Tablet in am for 0 days Quantity: 30 {Tablet} Refills: 3 Ordered:28-Jul-2017 Gen Jacobo Start : 28-Jul-2017 Active Lopressor 50 MG Oral Tablet 1 1/2 Tablet BID for 0 days Quantity: 270 {Tablet} Refills: 3 Ordered:24-Jan-2018 Marilu Uribe MD, MD, Dana M Start : 24-Jan-2018 Active Niacin Flush Free 500 MG Oral Capsule 2 (two) Capsule Capsule bid for 0 days Quantity: 120 {Capsule} Refills: 0 Ordered:11-Nov-2015 Marilu Uribe MD, MD, Dana M Start : 10-Nov-2015 Active Nitrostat 0.4 MG Sublingual Tablet Sublingual 1 Tab Sublingual q 5 minutes x3 doses for 0 days Quantity: 1 {Bottle} Refills: 1 Ordered:24-Jun-2017 Marilu Uribe MD, MD, Dana M Start : 24-Jun-2017 Active Peridex 0.12 % Mouth/Throat Solution 1 (one) Solution Solution 15 cc swich and spit bid for 0 days Quantity: 240 {Milliliter} Refills: 0 Ordered:16-May-2017 TANNER Menendez Start : 16-May-2017 Active Protonix 40 MG Oral Tablet Delayed Release 1 (one) Tablet DR qd for 0 days Quantity: 90 {Tablet} Refills: 3 Ordered:11-Apr-2017 Gemini DELGADILLO, Marilu Bartlett MD, Marilu Harris Start : 11-Apr-2017 Active Vitamin D3 Super Strength 2000 UNIT Oral Capsule 1 (one) Capsule Capsule in am for 0 days Quantity: 30 {Capsule} Refills: 0 Ordered:09-Jun-2017 TANNER Menendez Start : 07-Mar-2017 Active Zetia 10 MG Oral Tablet 1 Tablet QD for 0 days Quantity: 90 {Tablet} Refills: 3 Ordered:24-Jan-2018 Gemini DELGADILLO, Marilu Bartlett MD, Marilu Harris Start : 24-Jan-2018 Active ACETAMINOPHEN EXTRA STRENGTH, 500MG (Oral Tablet) 1 (one) Tablet qd for 30 days Refills: 0 Ordered:23-Oct-2013 Long NAIL FEEDER, Thelma L Start : 21-Sep-2013 End : 23-Oct-2013 Inactive AUGMENTIN, 875-125MG (Oral Tablet) 1 (one) Tablet bid for 0 days Quantity: 20 {Tablet} Refills: 0 Ordered:21-Aug-2015 TANNER Menendez Start : 28-Jul-2015 End : 21-Aug-2015 Inactive Comments:ignore bother patient stomach Calcium Inactive CARAFATE, 1GM (Oral Tablet) 1 Tablet QID/PRN for 0 days Quantity: 120 {Tablet} Refills: 3 Ordered:19-Mar-2014 TANNER Menendez Start : 18-Dec-2013 End : 19-Mar-2014 Inactive CHANTIX STARTING MONTH SHUKRI, 0.5 MG X 11 &1 MG X 42 (Oral Miscellaneous) 1 Daily x 1 month for 0 days Refills: 0 Ordered:16-Dec-2008 TANNER Menendez End : 16-Dec-2008 Inactive CIPRO HC, 0.2-1% (Otic Suspension) 3 (three) Drop(s) BID 7 days affected ear for 0 days Quantity: 1 {Suspension} Refills: 0 Ordered:29-Sep-2009 TANNER Menendez Start : 18-Mar-2009 Inactive COLCHICINE-PROBENECID, 0.5-500MG (Oral Tablet) 1 (one) Tablet qd x 3 weeks for 21 days Refills: 0 Ordered:23-Oct-2013 Long NAIL FEEDERGorgemilena Gonzalez Start : 21-Sep-2013 End : 23-Oct-2013 Inactive CYCLOBENZAPRINE HCL, 10MG (Oral Tablet) 1 Tablet Tablet tid prn for 0 days Quantity: 30 {Tablet} Refills: 2 Ordered:21-Sep-2013 Nithya Nieto LPN Start : 02-Feb-2013 End : 21-Sep-2013 Inactive Comments:thirty DOCUSATE SODIUM, 100MG (Oral Capsule) 1 (one) Capsule bid for 30 days Refills: 0 Ordered:23-Oct-2013 Gonzalo DYLAN Thelma Gonzalez Start : 21-Sep-2013 End : 23-Oct-2013 Inactive DOVONEX, 0.005% (External Cream) uad Cream Cream to affected area(s) prn for 0 days Quantity: 1 {Cream} Refills: 1 Ordered:16-May-2015 TANNER Menendez Start : 02-Feb-2013 End : 16-May-2015 Inactive ESCITALOPRAM OXALATE, 5MG (Oral Tablet) 1 Tablet daily for 0 days Quantity: 30 {Tablet} Refills: 1 Ordered:23-Oct-2013 Gonzalo RICHARDSON Thelma Gonzalez Start : 24-Jul-2012 End : 23-Oct-2013 Inactive FLUoxetine HCl 10 MG Oral Capsule 1 (one) Capsule Capsule in am for 0 days Quantity: 30 {Capsule} Refills: 0 Ordered:01-Jul-2016 Gemini DELGADILLO, Marilu Bartlett MD, Marilu Harris Start : 01-Jul-2016 End : 01-Jul-2016 Inactive FUROSEMIDE, 40MG (Oral Tablet) 1 (one) Tablet qd for 7 days Refills: 0 Ordered:15-Oct-2013 Casie Ramirez DO Start : 21-Sep-2013 End : 28-Sep-2013 Inactive IMDUR, 60MG (Oral Tablet Extended Release 24 Hour) 1 Tablet ER 24HR QD for 0 days Quantity: 30 {Tablet_ER_24HR} Refills: 6 Ordered:21-Sep-2013 Nithya Nieto LPN Start : 02-Feb-2013 End : 21-Sep-2013 Inactive Levaquin 500 MG Oral Tablet 1 (one) Tablet qd for 0 days Quantity: 10 {Tablet} Refills: 0 Ordered:27-Jan-2016 TANNER Menendez Start : 22-Dec-2015 End : 27-Jan-2016 Inactive Maxzide 25mg. QD Inactive MOBIC, 7.5MG (Oral Tablet) 1 Tablet daily for 0 days Quantity: 15 {Tablet} Refills: 0 Ordered:15-Jan-2011 TANNER Menendez Start : 12-Feb-2010 End : 15-Jan-2011 Inactive Multivitamin - Centrum QD Inactive Multivitamin Women 50+ Oral Tablet 1 (one) Tablet with iron daily for 0 days Quantity: 30 {Tablet} Refills: 0 Ordered:10-Nov-2015 TANNER Menendez Start : 05-Nov-2015 End : 10-Nov-2015 Inactive NIACIN, 500MG (Oral Tablet) Tablet TID for 0 days Refills: 0 Ordered:26-Feb-2008 TANNER Menendez Start : 06-Jan-2007 End : 26-Feb-2008 Inactive Niaspan 500 MG Oral Tablet Extended Release 1 (one) Tablet ER QD for 30 days Quantity: 30 {Tablet} Refills: 6 Ordered:07-Nov-2015 Gemini DELGADILLO, Marilu Bartlett MD, Marilu Harris Start : 07-Nov-2015 End : 07-Nov-2015 Inactive Comments:Adverse reaction, ?diabetes NICOTINE, 14MG/24HR (Transdermal Patch 24 Hour) uad Patch 24HR daily for 1 week for 0 days Quantity: 1 {Each} Refills: 0 Ordered:30-Jun-2015 TANNER Menendez Start : 16-May-2015 End : 30-Jun-2015 Inactive NICOTINE, 7MG/24HR (Transdermal Patch 24 Hour) 1 (one) Patch 24HR Patch 24HR change daily for 1 week then stop for 0 days Quantity: 7 {Each} Refills: 0 Ordered:28-Jul-2015 TANNER Menendez Start : 16-May-2015 End : 28-Jul-2015 Inactive NORVASC, 5MG (Oral Tablet) 1 Tablet bid for 30 days Quantity: 60 {Tablet} Refills: 6 Ordered:19-Mar-2014 TANNER Menendez Start : 18-Dec-2013 End : 19-Mar-2014 Inactive Nystatin 029117 UNIT/GM External Cream 1 (one) Cream Cream apply bid to skin rash for 0 days Quantity: 1 {Tube} Refills: 0 Ordered:07-Mar-2017 TANNER Menendez Start : 07-Oct-2016 End : 07-Mar-2017 Inactive PANTOPRAZOLE SODIUM, 40MG (Oral Tablet Delayed Release) [address] qd for 0 days Quantity: 30 {Tablet_DR} Refills: 6 Ordered:23-Oct-2013 Gonzalo RICHARDSONGorgen L Start : 02-Feb-2013 End : 23-Oct-2013 Inactive POTASSIUM CHLORIDE ER, 10MEQ (Oral Capsule Extended Release) 1 (one) Capsule ER qd for 7 days Refills: 0 Ordered:15-Oct-2013 Casie Ramirez DO Start : 21-Sep-2013 End : 28-Sep-2013 Inactive Pred Mild 0.12 % Ophthalmic Suspension 2 (two) gtt's to left corner of each eye for 1 week for 0 days Quantity: 1 {Bottle} Refills: 0 Ordered:27-Jan-2016 TANNER Menendez Start : 14-Nov-2015 End : 27-Jan-2016 Inactive PRILOSEC, 20MG (Oral Capsule Delayed Release) 1 QD for 0 days Refills: 0 Ordered:07-Nov-2012 TANNER Menendez End : 07-Nov-2012 Inactive TACLONEX, 0.005-0.064% (External Ointment) uad Ointment apply to affected areas prn for 0 days Refills: 3 Ordered:15-Jan-2011 TANNER Menendez Start : 29-Oct-2008 End : 15-Jan-2011 Inactive Temovate 0.05 % External Ointment uad Ointment bid to affected area(s) for 0 days Quantity: 15 {Gram} Refills: 0 Ordered:01-Jul-2016 TANNER Menendez Start : 09-Apr-2016 End : 01-Jul-2016 Inactive TRAMADOL HCL, 50MG (Oral Tablet) 1 (one) Tablet q 6hrs prn for 30 days Refills: 0 Ordered:23-Oct-2013 Thelma Sánchez LPN L Start : 21-Sep-2013 End : 23-Oct-2013 Inactive TYLENOL, 325MG (Oral Tablet) 2 (two) Tablet q6h prn for 0 days Quantity: 30 {Tablet} Refills: 0 Ordered:30-Jun-2015 TANNER Menendez Start : 23-Oct-2013 End : 30-Jun-2015 Inactive VALIUM, 5MG (Oral Tablet) Tablet BID/PRN for 0 days Quantity: 30 {Tablet} Refills: 1 Ordered:15-Jan-2011 TANNER Menendez Start : 25-Jun-2008 End : 15-Jan-2011 Inactive WELCHOL, 625MG (Oral Tablet) 3 (three) Tablet BID for 0 days Quantity: 180 {Tablet(s)} Refills: 6 Ordered:06-Jan-2007 TANNER Menendez Start : 21-Apr-2006 End : 06-Jan-2007 Inactive WELCHOL, 625MG (Oral Tablet) 2 Tablet tid for 0 days Quantity: 180 {Tablet} Refills: 4 Ordered:26-Nov-2011 TANNER Menendez Start : 26-Nov-2011 End : 26-Nov-2011 Inactive Comments:muscle aches and diarrhea ZITHROMAX Z-SHUKRI, 250MG (Oral Tablet) 1 (one) Tablet uad for 0 days Quantity: 1 {Package} Refills: 0 Ordered:21-Aug-2015 TANNER Menendez Start : 28-Jul-2015 End : 21-Aug-2015 Inactive Zofran 4 MG Oral Tablet 1 (one) Tablet every 8hours prn nasuea for 0 days Quantity: 20 {Tablet} Refills: 0 Ordered:15-Nov-2017 TANNER Menendez Start : 27-Jun-2017 End : 15-Nov-2017 Inactive CHANTIX CONTINUING MONTH SHUKRI, 1MG (Oral Tablet) Tablet BID for 0 days Quantity: 60 {Tablet} Refills: 1 Ordered:06-Oct-2006 TANNER Menendez Start : 06-Oct-2006 End : 13-Jul-2007 Discontinued CHANTIX STARTING MONTH HSUKRI, 0.5 MG X 11 &1 MG X 42 (Oral Miscellaneous) Misc BID for 0 days Refills: 0 Ordered:06-Oct-2006 TANNER Menendez Start : 06-Oct-2006 End : 13-Jul-2007 Discontinued Fergon 240 (27 Fe) MG Oral Tablet 1 (one) Tablet Tablet daily for 0 days Quantity: 30 {Tablet} Refills: 6 Ordered:05-Nov-2015 Marilu Uribe MD, MD, Dana M Start : 05-Nov-2015 End : 05-Nov-2015 Discontinued Ferrex 150 150 MG Oral Capsule 1 (one) Capsule in am with breakfast for 0 days Quantity: 90 {Capsule} Refills: 3 Ordered:15-Nov-2017 Gemini DELGADILLO, Marilu Nicholas MD Start : 15-Nov-2017 End : 15-Nov-2017 Discontinued Comments:bother stomach Ferrous Sulfate 325 (65 Fe) MG Oral Tablet Delayed Release [address] bid for 0 days Quantity: 60 {Tablet} Refills: 6 Ordered:07-Mar-2017 Marilu Uribe MD, MD, Dana M Start : 07-Mar-2017 End : 07-Mar-2017 Discontinued FLEXERIL, 10MG (Oral Tablet) 1 Tablet po tid prn for 0 days Quantity: 30 {Tablet} Refills: 1 Ordered:27-Jul-2012 Marilu Uribe MD, MD, Dana M Start : 27-Jul-2012 End : 21-Sep-2013 Discontinued Comments:This order discontinued per [facility]. Losartan Potassium 25 MG Oral Tablet 1/2 Tablet daily for 0 days Quantity: 45 {Tablet} Refills: 3 Ordered:09-Jun-2017 Marilu Uribe MD, MD, Dana M Start : 09-Jun-2017 End : 09-Jun-2017 Discontinued OMNICEF, 300MG (Oral Capsule) Capsule BID for 0 days Quantity: 20 {Capsule} Refills: 0 Ordered:07-Jul-2007 TANNER Menendez Start : 07-Jul-2007 End : 01-Aug-2007 Discontinued Triamterene-HCTZ 37.5-25 MG Oral Capsule 1 (one) Capsule qd for 0 days Quantity: 90 {Capsule} Refills: 3 Ordered:28-Jul-2017 Marilu Uribe MD, MD, Dana M Start : 28-Jul-2017 End : 28-Jul-2017 Discontinued ZOLOFT, 25MG (Oral Tablet) 1 (one) Tablet Tablet in am for 0 days Quantity: 30 {Tablet} Refills: 3 Ordered:21-Aug-2015 Marilu Uribe MD, MD, Dana M Start : 21-Aug-2015 End : 21-Aug-2015 Discontinued Allergies and Adverse Reactions Name Dates Details Augmentin *PENICILLINS* (Allergy) Status: Active Comments: side effects of nausea stomach upset Crestor (Allergy) Status: Active Iodinated Contrast (Allergy) Status: Active Latex (Allergy) Status: Active Lipitor (Allergy) Status: Active Niaspan *ANTIHYPERLIPIDEMICS* (Allergy) Status: Active Comments: flush and red. side effects Sulfa Drugs (Allergy) Status: Active Past Medical History Name Dates Details Abnormal blood chemistry (R79.9, 790.6) Comments: uric acid up talk about cut back red meat Status: Resolved as of 09-Jun-2017 Allergic reaction, sequela (T78.40XS, 909.9) Comments: happen twice when ate the blue frosting. not think related to losartan told her if have swellingof lip again then must stop losartan. she will stay away from blue dyes. Status: Resolved as of 07-Mar-2017 Atelectasis (J98.11, 518.0) Status: Inactive as of 04-Jul-2014 BMI 28.0-28.9,adult (Z68.28, V85.24) Comments: pt gaining since stop smoking. Status: Inactive as of 07-Oct-2014 BMI 28.0-28.9,adult (Z68.28, V85.24) Status: Resolved as of 15-Jun-2017 BMI 30.0-30.9,adult (Z68.30, V85.30) Comments: 30.61 Status: Resolved as of 15-Jun-2017 BMI 31.0-31.9,adult (Z68.31, V85.31) Comments: 30.99 Status: Resolved as of 15-Jun-2017 Cough (R05, 786.2) Comments: stillhave some cough off lisnipril. mucous. no reflux. try mucinex. get CT will see Dr. karen neves 06-12. await his input. Status: Resolved as of 14-Sep-2017 Current nonsmoker (Renamed from Current non-smoker) (Z78.9, V49.89) Status: Inactive as of 01-Jul-2016 Dehydration (E86.0, 276.51) Status: Resolved as of 15-Nov-2017 drug reaction Status: Inactive as of 02-Feb-2013 Duodenal ulcer, unspecified as acute or chronic, without hemorrhage or perforation, without mention of obstruction (532.90) 22-May-2010 Status: Inactive as of 02-Feb-2013 Encounter for screening fecal occult blood testing (Z12.11, V76.51) Status: Inactive as of 01-Jul-2016 Epigastric pain (Renamed from Abdominal pain, epigastric) (R10.13, 789.06) Status: Inactive as of 02-Feb-2013 Flu-like symptoms (R68.89, 780.99) Status: Resolved as of 15-Nov-2017 Hearing change Status: Inactive as of 02-Feb-2013 Hoarseness (R49.0, 784.42) Comments: stable on ppi Status: Inactive as of 19-Mar-2014 Hypokalemia (E87.6, 276.8) Status: Resolved as of 08-Feb-2017 Idiosyncratic reaction to medication after proper dose, subsequent encounter (T50.905D, V58.89) Comments: related to higher dose venofer. will repeat at lower dose did fine withthat. Status: Resolved as of 14-Sep-2017 Inflamed seborrheic keratosis (L82.0, 702.11) Status: Inactive as of 02-Feb-2013 Left knee pain (M25.562, 719.46) Comments: twisted only been one week. will rest, knee sleeve, and tyelnol. if not better in 2 weeks follow up for injection. Status: Inactive as of 16-May-2015 Low back pain (Renamed from LBP (low back pain)) (M54.5, 724.2) Comments: right lower back she think kidney Status: Inactive as of 19-Mar-2014 Malabsorption of iron (K90.9, 579.8) Status: Resolved as of 08-Feb-2017 Malignant neoplasm of breast (female) (C50.919, 174.9) Status: Inactive as of 17-Sep-2010 Nausea (R11.0, 787.02) Status: Resolved as of 28-Jul-2017 Other acute sinusitis (J01.80, 461.8) Status: Inactive as of 21-Aug-2015 Other chest pain (R07.89, 786.59) Comments: stable sounds muscular. in right pect and trap. talk about using muscle relaxnat. heat massage. with hisotry of PUD no nsaids tylenol 500 2 bid. Status: Inactive as of 02-Feb-2013 Other specified viral infection, in conditions classified elsewhere and of unspecified site (B97.89, 079.89) Comments: told when to call, if not better 1 week or sob higher fever call in Status: Resolved as of 01-Aug-2007 Otitis externa (Renamed from External otitis) (H60.90, 380.10) Comments: ? because has psoarosis Status: Inactive as of 02-Feb-2013 Palpitation (785.1) Comments: no change had episode sound vagal ? low sugar. alot situational things cause. allyn jennyferlibby and saulo send ekg over to Dr. carroll. Status: Inactive as of 02-Feb-2013 PMB (postmenopausal bleeding) (N95.0, 627.1) Comments: workup see Dr. bell [facility]. wanted to do endometrial biopsy and plan but not see set up. Dr. nguyen could not get in and sent to her. cause psoriasis out with stress. Status: Resolved as of 21-Jan-2015 Postmenopausal (Renamed from Postmenopausal status) (Z78.0, V49.81) Status: Resolved as of 08-Feb-2017 Rash (R21, 782.1) Status: Resolved as of 08-Feb-2017 Sebaceous cyst (L72.3, 706.2) Status: Inactive as of 02-Feb-2013 Skin yeast infection (B37.2, 112.3) Status: Resolved as of 15-Jun-2017 Stress-related physiological response affecting physical condition (F43.8, 308.3) Comments: issue with sister live with talk about downsizing. recommend counselor refuse. she is taking on more responsibility at home because sister sick. Status: Resolved as of 15-Nov-2017 Syncope (Renamed from Episode of syncope) (R55, 780.2) Comments: sound vagal episode. no reoccurance. had holter. see Dr. carroll in next week. Status: Inactive as of 07-Aug-2013 Tinnitus, left (H93.12, 388.30) Comments: told not able to do MRI because cow valve no other nuero signs and symptoms had CT scan and CTA head her sister had aneurysm in brain. . allie seen. saw Dr. hinds at [facility] noting suggest for this ringing in ear. not bother her at night and now able to do okay4-4-16 per patient better than was at last ov, Status: Resolved as of 09-Jun-2017 Tobacco abuse, in remission (Renamed from Tobacco dependence in remission) (F17.201, V15.82) Status: Inactive as of 05-Nov-2015 Tongue abnormality (Q38.3, 750.10) Comments: bleeding pimple now scrapit and not bleed at all no w. no foreign body no other pimple ? broken capillary. check patelets and PT and PTT. not think yeast. upper gums irriate ? why. ? reactionto eating dorritos Status: Resolved as of 09-Jun-2017 Unspecified Diagnosis Status: Inactive as of 19-Mar-2014 Unspecified Diagnosis Status: Inactive as of 16-May-2015 Unspecified Diagnosis Status: Inactive as of 16-May-2015 Vertigo (R42, 780.4) Comments: in hopital CT and MRI head 10-16 and good. CTA head and bneck Right 79% Left 60% gone now ? cause had preceding URI. ? inner ear. not felt ministroke will see Dr. carroll soon for heart workup. no signs and symptoms now seen up at [facility] main and had MRI , US vertebrals ? subclavian stenosis talk to Dr. carroll who talked to Dr. huffman. 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 [place] [address] OFFICE VISIT Date of Service: 06/22/17 MR#: [id number] Acct: [id number] Name: SAMMY MARTE Rep #: [id number] : 1940 Provider: Marci Zabala Age/Sex: 76/F [place] [facility] [place] Status: Signed Assessment AND Plan 1. SOB (shortness of breath) on exertion R06.02 Status Chron ic Plan Likely related to undiagnosed COPD. Plan to complete pulmonary function test as well as formal stress test prior to a 3 month follow-up with Dr. Neves. Patient is agreeable. No inhalers at this time, await pulmonary function test to determine if inhalers are appropriate. Orders Orders: 2. Tobacco abuse Z72.0 Status Chronic Plan 9 minute discussion on the continued deleterious effects of ongoi ng smoking. Discussed the nicotine addiction as well as the psychological addiction to cigarettes. Patient plans to quit cold turkey at this time. Continue to encourage smoking cessation. Plan Detail F ollow Up 3 Months (DMB) HPI 3 M FU: Chief Complaint: cough HPI Comments Details: This patient presents to the office today for routine follow-up on her shortness of breath. She is ambulatory and curre ntly on room air. She has not been seen in the ED urgent care since her last office visit for any respiratory illnesses. She has not required treatment with antibiotics or steroids. She is not currentl y on any inhalers. She did not receive the Flonase that was prescribed at her last office visit. She continues to have a cough that is productive of thick yellow sputum. She also has an occasional sore throat secondary to frequent coughing. She reports experiencing chest tightness and chest congestion. She has not tried any ieev-lkg-xmssnwq medications for these symptoms. She notices that her cough i s more frequent at night, after eating cold foods such as ice cream, and occasionally it is present in the morning. She admits that she continues to smoke 3-5 cigarettes per day. At the last office vis it she was recommended to have a sleep study, it was scheduled but she did not follow through. She reports that she does not have any sleep problems and does not need a sleep study. Robert jamison reports that she sleeps well at night, feels rested upon arising in the morning. She admits to a daily nap but states that it is only because she is retired and has nothing to do. See complete review of systems. She does report that she began having hives back in February 2017 and has been undergoing treatment off and on with her primary care physician as well as ER physicians regarding these hives . She has an appointment with an restaurant greeter next week. It Is unclear of the etiology of the hives. Intake Vital Signs06/22/17 Height 5 ft 5 in 06/22/17 Weight: 164 lb Intake Visit Reasons: 3 M FU Int erpreter Required: No Accompanied by: Self Is patient in pain?: No Allergies Sulfa (Sulfonamide Antibiotics) Allergy (Severe, Verified 06/22/17 12:50) HEART RACING Latex, Natural Rubber Allergy (Verifi ed 06/22/17 12:50) Rash amoxicillin [From Augmentin] Adverse Reaction (Verified 06/22/17 14:25) Nausea atorvastatin [From Lipitor] Adverse Reaction (Verified 06/22/17 14:25) Other clavulanic acid [From Augmentin] Adverse Reaction (Verified 06/22/17 14:25) Nausea Iodinated Contrast- Oral and IV Dye [CONTRASTS] Adverse Reaction (Verified 06/22/17 12:50) Other niacin [From Niaspan Extended-Release] Adver se Reaction (Verified 06/22/17 14:25) Other rosuvastatin [From Crestor] Adverse Reaction (Verified 06/22/17 14:25) Other turkey grease Adverse Reaction (Uncoded 06/22/17 12:50) Rash Medications Cilos tazol [Pletal] 50 mg PO BIDAC 09/01/13 [History Confirmed 06/22/17] Clopidogrel Bisulfate [Plavix] 75 mg PO DAILY 09/01/13 [History Confirmed 06/22/17] Ezetimibe [Zetia] 10 mg PO DAILY 09/01/13 [History Confirmed 06/22/17] Metoprolol Tartrate [Lopressor (Beta Johnathon)] 75 mg PO BID 09/01/13 [History Confirmed 06/22/17] Nitroglycerin [Nitrostat] 0.4 mg SUBLINGUAL Q5M PRN 09/01/13 [History Confirmed ] Pantoprazole Sodium [Protonix] 40 mg PO DAILY 09/01/13 [History Confirmed 06/22/17] Triamterene 37.5MG/Hctz 25MG [Maxzide 37.5 mg-25 mg Tablet] 1 tab PO DAILY 09/01/13 [History Confirmed 06/22/17 ] Aspirin E.C. [Ecotrin] 1 tab PO DAILY 01/24/16 [History Confirmed 06/22/17] Acetaminophen [Tylenol] 325 mg PO PRN PRN 03/08/16 [History Confirmed 06/22/17] Niacin (Inositol Niacinate) [Niacin Flush Fr ee 500 mg Cap] 1,000 mg PO BID 03/08/16 [History Confirmed 06/22/17] Prednisone 10 mg PO DAILY 06/22/17 [History Confirmed 06/22/17] [facility] Medical History GERD (gastroesophageal reflux disease) (Chronic) HTN (hypertension) (Chronic) Psoriasis (Chronic) Carotid stenosis (Chronic) Paroxysmal A-fib (Chronic) Hypercholesterolemia (Chronic) CAD (brooke nary artery disease) (Chronic) Effusion, left knee (Chronic) Osteoarthritis (Chronic) Sleep disorder (Chronic) Tobacco abuse (Chronic) PND (post-nasal drip) (Chronic) [place] (obstructive sleep apnea) ([employer] Cp[employer] skip) Surgical History History of mastectomy (Resolved) Family History Mother Heart diseas e Cancer Father Heart disease Cancer Sister Cancer Social History Smoking Status: Current some day smoker second hand exposure: Yes alcohol inta ke: never substance use type: does not use caffeine: Yes what type of physical activity do you participate in: none Review of Systems Const CONSTITUTIONAL: Positive fatigue and headache(s); nega tive anorexia, body ache, chills, daytime sleepiness, fever(s), night sweats, oral thrush, stops breathing during sleep, weight loss, sleeping in chair, weight loss, weight gain, frequent colds, seasona l allergies, other or orthopnea EETM Ear Nose Throat Mouth: Positive hearing normal, hoarseness, dry mouth in morning and headache(s); negative hard of hearing, change in vision, itchy eyes, eye pain, s wallowing Difficulty, ear pain, nose bleed, mouth pain, nasal congestion, nasal discharge, post nasal drip, sinus pain, sinus pressure, sore throat or other Cardio Cardiovascular: Positive edema; negati ve chest pain, chest pain at rest, chest pain with activity, irregular heart rhythm, shortness of breath when lying down, palpitations, murmur or other Resp Respiratory: Positive as per HPI and chest ti ghtness; negative shortness of breath, pain with cough, wheezing, chest congestion, cough, pain on inspiration, inhalers, increase use of rescue inhalers, snoring, apnea or other Gastro Gastrointestiona l: Negative bloody stools, change in appetite, difficulty swallowing, reflux, hematemesis, melena stool, loose stool, constipation or other Genitourinary: Negative blood in urine, nocturia, pain with urination or other Musc Musculoskeletal: Positive neck pain; negative body pain, back pain or other Skin/Breast Skin/Breast: Positive itching; negative dry skin, rash, unusual bruising, breast lump or other Neuro Neurological: Negative restless legs, confusion, weakness or other Psych Psychocological: Negative abnormal sleep pattern, anxiety, thoughts of hurting self/others, hopelessness or other Lym ph Lymphatic: Negative easy bleeding, easy bruising, swollen lymph nodes or other Exam Const Constitutional: Positive conversant, cooperative, in no acute respiratory distress, healthy appearing, well developed, well nourished and good hygiene Head Head: Positive normocephalic and atraumatic; negative cyanosis of lips/distal nose Eyes Eye: Positive clear conjunctiva and nystagmus; negative scleral a bnormality Ears Ear: Positive hearing normal and external ears normal; negative hard of hearing Nose Nose: Positive external nose normal and no nasal discharge; negative epistaxis Mouth Mouth: Positive oral mucosae normal, good dentition, no lesions and posterior oropharynx is adequate; negative post nasal drip, oral thrush present or malodorous breath Mallampati Score: II: Mallampati Score Neck Neck: Positive normal visual inspection, full ROM and trachea midline; negative lymphadenopathy, JVD or tender Chest Wall Chest: Positive normal inspection of the chest and symmetric chest movement; negative increased A/P diameter Resp lung sounds: Positive normal expiratory time, normal respiratory effort, clear to auscultation and diminished; negative wheezes, rhonchi, rales, dullness to percussion or wh eeze present on forced exhalation Cardio Cardiac: Positive regular rate, regular rhythm, S1 normal and S2 normal; negative murmur GI GI: Positive normal to inspection and normal bowel sounds; negative d istended Genitourinary: Positive deferred Musc Musculoskeletal: Positive steady gait and ROM normal; negative kyphosis or scoliosis Skin Pulmonary Skin Exam: Positive intact; negative rash, lesion, u lcers, erythema, scaly or dermal atrophy Pulses Pulse: Yes pulses normal x4 extremities Extremities Extremities: Yes capillary refill normal, No clubbing, No cyanosis, No edema, No stasis dermatitis Maria Alejandra ro Neurologic: Yes conversant, Yes no focal neuro deficits, Yes cooperative, Yes normal cognition, Yes normal coordination, Yes normal concentration, Yes understands questions Lymph Lymphatic: No lympha denopathy, No tenderness, No cervical adenopathy, No axillary adenopathy Psych Appearance: Positive grossly normal, eye contact and well kempt Mental Status: Positive mental status grossly normal Mood: Positive congruent mood Affect: Positive normal affect Office Procedures Smoking Cessation Time Spent 3-10 minutes: Yes Coding Level of Care Code Off vis,est,level 3 Diagnoses SOB (shortness of jcarlos ath) on exertion R06.02 Tobacco abuse Z72.0 Additional Codes Time Spent - 3-10 minutes: Yes (91959) 06/27/17 1553 <Electronically signed by Marci ANAYA> Date __ Marci ANAYA Cosigner Signature: Date (if applicable) CC: 27-Jun-2017 Abdomen/Pelvis without Cont Result: Comments: See Note; NOTES: [facility] Imaging Services [address] [place] [address] Abdomen/Pelvis without Cont MR#: [id number] Acct: [id number] Name: SAMMY SWANN Rep #: [id number] : 1940 F 76 From: Manolo Sierra MD PCP: Marilu Uribe MD Status: REG CLI Study: Abdomen/Pelvis without Cont Date of Exam: 06/27/17 Exam# [id number] Ordering Dr: Marilu Uribe MD STUDY: CT ABDOMEN AND PELVIS WITHOUT CONTRAST REASON FOR EXAM: Female, 76 years old. Chronic right lower quadrant pain. History of breast cancer. RADIATION DOSAGE (If Supplied By Facility): CTDIvol = ( 9.87 ) mGy, DLP = ( 483.23 ) mGycm TECHNIQUE: Transaxial images were obtained from the dome of the diaphragm to the symphysis pubis without oral contrast, and without intravenous contrast. Sagittal a nd coronal images were reconstructed. Individualized dose optimization techniques were used for this CT. COMPARISON: None. FINDINGS: The visualized lung bases are unremarkable. Coronary artery calcification. Prior CABG. Normal liver. Normal gallbladder and extrahepatic biliary system. Normal spleen. Normal pancreas. Normal bilateral adrenal glands. Normal righ t kidney. Normal left kidney. Normal visualized stomach. Normal small intestine. There are multiple colonic diverticula consistent with diverticulosis. The appendix is visualized and appears normal. T here is diffuse atherosclerotic calcification of the abdominal aorta and its major visceral branches, without a demonstrated aneurysm. Normal inferior vena cava. Normal retroperitoneum. Normal urinary bladder. There is a small umbilical hernia containing fat. Small right inguinal hernia containing fat. Normal osseous structures. CT/Abdomen/Pel vis without Cont IMPRESSION: Sigmoid diverticulosis. Electronically Signed: Manolo Sierra MD at 11:15 EST Tel [phone], Service support , CC: Marilu Uribe MD Turning Lathe Tender: Signed 22-Jun-2017 Chest 1 View (Portable) Result: Comments: See Note; NOTES: [facility] Imaging Services [address] [place] [address] Chest 1 View (Portable) MR#: [id number] Acct: [id number] Name: SAMMY SWANN Rep #: [id number] : 1940 F 76 From: Brian Shen PCP: Marilu Uribe MD Status: REG ER Study: Chest 1 View (Portable) Date of Exam: 06/22/17 Exam# [id number] Ordering Dr: Rodrigo Finley MD STUDY: X-RAY CHEST REASON FOR EXAM: Female, 76 years old. Chest pain TECHNIQUE: Single AP portable view of the chest. COMPARISON: None. FINDINGS: The lungs are clear and expanded. There is no demonstrated pleural abnormality. Normal size heart. Patient status post sternotomy. Normal mediastinum and erasmo. Normal visualized pulmonary arteries. Normal visualized aortic arch and michael cending thoracic aorta. Normal visualized thoracic spine. Normal visualized ribs, clavicles, and shoulders. Right and left axillary surgical clips. There is no demonstrated abnormality of the visualiz ed soft tissue structures of the upper abdomen. RAD/Chest 1 View (Portable) IMPRESSION: No acute infiltrate. Electronically Signed: Charlotte Fenton at 20:57 EST , Service support , CC: Marilu Uribe MD; Rodrigo Finley MD Turning Lathe Tender: Signed 15-Jun-2017 Emergency Department Summary Result: Comments: See Note; NOTES: [facility] Medical Records Department [address] [place] [address] Emergency Department Summary 06/15/17 0016 MR#: [id number] Acct: [id number] Name: SAMMY SWANN Rep #: [id number] : 1940 76 From: Maury Carmen PCP: Marilu Uribe MD Status: REG ER - ER Visit Summary Date of Service: 06/15/17 Chief Complaint: Allergic reaction History of Pr esent Illness: The patient is a 76 F presents with concerns allergic reaction with itching on the skin in her thighs. No lip or tongue swelling. No trouble breathing. History of psoriasis and itching ar ound these regions. States proximal week ago seen in the ED for swelling of the lips. She is on losartan. Follow-up with her PCP yesterday, losartan is held. She is referred to an restaurant greeter pending appo intment. No new foods. No change in soaps or detergents. She is only on topical creams for her psoriasis. No history of diabetes. Physical Examination: General: Alert and oriented 3, no acute distress HEENT: Normocephalic, atraumatic. Moist mucosa membranes Neck: supple, nontender. Cardiovascular: Regular rate and rhythm, no murmurs Respiratory: Normal breath sounds, symmetric, no distress Abdomen: S oft, nontender, nondistended Extremities: Nontender, no edema, pulses intact 4 Neuro: no focal neurological deficits. Skin: Psoriasis plaques on her bilateral lateral thighs, volar forearm, back or her symptoms are. There is no urticaria. No active drainage. Nontender to palpation. Test Results: [] Emergency Department Course and Treatment: Patient with pruritic symptoms around her psoriasis plaques . There is no signs of infection. She is not a diabetic. She will be placed on prednisone for 10 days. She did an elevated blood pressure 201/83 in the triage. Checked in the room, 190/68. She is on blo od pressure medications. She is asymptomatic. She will recheck as an outpatient. Treatment Plan: [] Disposition: Discharge Impression: 1. Psoriasis 2. Elevated blood pressure This note was generat ed with [employer] dictation software. It may contain incorrect words, spelling, and punctuation that were not noted in review of the chart prior to signing ED Disposition - Plan for ED Patient: Disposit ion: Home or Assisted Living Chief Complaint: Allergic Reaction Diagnosis: Psoriasis, Elevated blood pressure reading Instructions: ED Psoriasis Prescriptions: Prednisone 20 mg PO DAILY #10 tablet Refe rrals: Marilu Uribe MD [Primary Care Provider] - 5-7 Days Additional Instructions: Blood pressure 190/68. Take your blood pressure medicines record her blood pressure at home. Follow-up with your docto r. Take steroids as prescribed. Follow-up with her restaurant greeter's for evaluation as referred by your PCP. What to do if you have Problems For any increased pain, shortness of breath, bleeding, nausea o r vomiting, chest pain, or any unexpected problems, contact your Primary Care Provider. Call [facility] ([phone]) or report to the closest Emergency Room. Call 911 if necessary. 06/15/17 00 21 <Electronically signed by Maury Carmen> Date Maury Carmen Cosigner Signature (If Indicated): Date CC: Marilu Uribe MD 05-Feb-2017 Emergency Department Summary Result: Comments: See Note; NOTES: [facility] Medical Records Department [address] [place] [address] Emergency Department Summary 02/05/17 191 MR#: [id number] Acct: [id number] Name: SAMMY SWANN Rep #: [id number] : 1940 76 From: Anna Rincon MD PCP: aMrilu Uribe MD Status: DEP ER - ER Visit Summary Date of Service: 02/05/17 Chief Complaint: Lip and throat swelling History of Present Illness: The patient is a 76 F reports eating ice cream cake last week and developing mild swelling to the right upper and lower lip. She went to bed and then does resolve the next mo rning. She is somewhat ice cream cake tonight. Shortly after she developed right upper lip swelling and she feels tightness in the right side of her throat. She is able to swallow without difficulty. Keyshawn cassidy has a history of valve replacement with a cow valve and she was worried about taking any caji-dqp-hiyargr medications at home for allergies. Physical Examination: Blood pressure is 192/94, temper ature 97.8, heart rate 90, respiratory rate 16, pulse ox 97% on room air. Head and neck examination reveals mild right upper lip edema. There is no tongue edema. She is a strong voice and is tolerating secretions well. She has mild bilateral cervical lymphadenopathy that is equal. Heart is regular rate and rhythm. 2/6 murmur is noted. Lungs are clear with good air movement throughout. Abdomen is soft nontender. Skin examination reveals no rash or hives. Test Results: [] Emergency Department Course and Treatment: Patient is given Benadryl, Pepcid, and Solu- Medrol. Patient was rechecked multiple eileen es throughout her ER stay. She is now been observed for 3 hours and has had resolution of her symptoms. She has been able tolerate p.o. without difficulty. Treatment Plan: [] Disposition: Discharge I mpression: Allergic reaction This note was generated with [employer] dictation software. It may contain incorrect words, spelling, and punctuation that were not noted in review of the chart prior to signin g. ED Disposition - Plan for ED Patient: Chief Complaint: Allergic Reaction Referrals: Marilu Uribe MD [Primary Care Provider] - What to do if you have Problems For any increased pain, shortness of breath, bleeding, nausea or vomiting, chest pain, or any unexpected problems, contact your Primary Care Provider. Call [facility] ([phone]) or report to the closest Emergency Room. Call [phone] if necessary. 02/05/17 2344 <Electronically signed by Anna Rincon MD> Date Anna Rincon MD Cosigner Signature (If Indicated ): Date CC: Marilu Uribe MD 05-Feb-2017 Discharge Instruction Result: Comments: See Note; NOTES: [facility] Medical Records Department [address] [place] [address] Discharge Instruction 02/05/172235 MR#: [id number] Acct: [id number] Name: Boris SWANN Rep #: [id number] : 1940 76 From: Anna Rincon MD PCP: Marilu Uribe MD Status: REG ER ED Disposition - Plan for ED Patient: Disposition: Home or Assisted Living Chief Complaint: Al lergic Reaction Instructions: ED Allergic Reaction General Other Referrals: Marilu Uribe MD [Primary Care Provider] - As Needed What to do if you have Problems For any increased pain, shortness of breath, bleeding, nausea or vomiting, chest pain, or any unexpected problems, contact your Primary Care Provider. Call [facility] ([phone]) or report to the closest Emergency Room. Call 911 i f necessary. 02/05/172235 <Electronically signed by Anna Rincon MD> Date Anna Rincon MD Cosigner Signature (If Indicated): D ate CC: Marilu Uribe MD 07-Jul-[address] Lung Screening Result: Comments: See Note; NOTES: [facility] Imaging Services [address] [place] [address] Lung Screening MR#: [id number] Acct: [id number] Name: LUCIE SWANN Rep #: [id number] : 1940 F 75 From: Manolo Sierra MD PCP: Marilu Uribe MD Status: [facility] CLI Study: Low Dose CT Lung Screening Date of Exam: 07/07/16 Exam# [id number] Ordering Dr: Charlotte Uribe MD STUDY: CT CHEST WITHOUT CONTRAST- LOW DOSE SCREENING PROTOCOL REASON FOR EXAM: Female, 75 years old. Current smoker. 15 pack per year history. No current symptoms of lung cancer or pulmonary i nfection. Shared decision-making with referring PCP documented in patient's record. RADIATION DOSAGE (If Supplied By Facility): CTDIvol = ( 3.02 ) mGy, DLP = ( 102.69 ) mGycm TECHNIQUE: Low dose scree janie CT examination performed from the base of the neck to the upper abdomen. Sagittal and coronal reformatted images performed. Sagittal and coronal MIP images provided. The measurements provided are a verage, rounded measurements per ACR guidelines. Individualized dose optimization techniques were used for this CT. COMPARISON: None. FINDINGS: Hyperinflation. Mi ld degree of increased markings at the lung apices suggestive of apical scarring. Minimal increased markings in the lingular segment of the left upper lobe suggestive of mild degree of scarring. There i s no demonstrated pleural abnormality. Sternal cerclage wires and vascular clips are present from a prior sternotomy and coronary artery bypass graft procedure (CABG). There are calcifications of the c oronary arteries. Normal mediastinum. Normal hilar regions. Normal unenhanced pulmonary arteries. There is atherosclerotic calcification of the aortic arch and descending thoracic aorta. There are mul ti-level degenerative changes of the thoracic spine. Increased thoracic kyphosis. There is no demonstrated abnormality of the visualized upper abdomen. ORDER #: [id number] CT/Low Dose CT Lung Screening IMPRESSION: 1. No significant indeterminate incidental findings requiring additional imaging. 2. Incidental findings include findings suggestive of biapical scarr ing as well as scarring in the anterior aspect of the right middle lobe.. ASSESSMENT CATEGORY: LungRADS 2 - Benign Appearance or Behavior. Continue annual screening with LDCT in 12 months, per establi shed ACR guidelines. Electronically Signed: Manolo Sierra MD at 9:52 EDT Tel [phone], Service support [phone], CC: Marilu Uribe MD Turning Lathe Tender: Signed 24-Feb-2016 Dexa Bone Density Study (HP) Result: Comments: See Note; NOTES: [facility] Imaging Services [address] [place] [address] Verdana 4d Dexa Bone Density Study (HP) MR#: [id number] Acct: [id number] Name: ANGELES SWANN Rep #: [id number] : 1940 F 75 From: Manolo Sierra MD PCP: Mrailu Uribe MD Status: REG CLI Study: Dexa Bone Density Study (HP) Date of Exam: 02/24/16 Exam# [id number] Ordering Dr: Marilu Abreu MD STUDY: DUAL ENERGY X-RAY ABSORPTIOMETRY / DXA REASON FOR EXAM: Female, 75 years old. The patient is postmenopausal. Loss of height. TECHNIQUE: Bone Mineral Density (BMD) measurements of lumbar spine and bilateral hips were obtained. COMPARISON: None. FINDINGS: Lumbar Spine (L1-L4): g/cm2 (1.135) / T-score (-0.5) / Z-score (1.2) Findings are sugge stive of normal bone density with a low fracture risk. Increased thoracic kyphosis. Left Femur Total: g/cm2 (0.940) / T-score (-0.5) / Z-score (1.2) Left Femoral Neck: g/cm2 (0.944) / T-score (-0.7) / Z-score (1.3) Right Femur Total: g/cm2 (0.936) / T-score (-0.6) / Z-score (1.2) Right Femoral Neck: g/cm2 (0.883) / T-score (-1.1) / Z-score (0.8) 07 HPBD/Dexa Bone Density Study (HP) IMPRESSION: The patient is considered normal as outlined below according to World Brandon Organization (WHO) criteria with a low fracture risk. Reference Information: The T-score is the number of standard deviations above or below the standard which is normal for young adults at their peak bone mineral density. The World Health O rganization (WHO) interprets the T-scores as follows: Above -1 Normal bone density Between -1 and -2.5 Osteopenia Equal to / or below -2.5 Osteoporosis As a practical clinical guideline, osteopenia ma y be graded as follows: Mild -1 through -1.5 Moderate -1.6 through -2.0 Severe -2.1 through -2.4 The Z-score is the number of standard deviations above or below age-matched controls. A Z-score of less than -1.5 would be considered abnormal. References: 1. NIH Osteoporosis and Related Bone Diseases http://www.osteo.org 2. International Society for Clinical Densitometry http://www.iscd.org 3. National Osteoporosis Foundation http://www.nof.org Electronically Signed: Manolo Sierra MD at 12:31 EDT Tel [phone], Service support [phone], CC: Marilu Uribe MD Turning Lathe Tender: Signed 27-Jan-2016 12 Lead Electrocardiogram Result: Comments: See Note; NOTES: [facility] Cardiovascular Services [address] [place] [address] 12 Lead EKG 01/24/161955 MR#: [id number] Acct: [id number] Name: SAMMY SWANN Rebecca del real #: [id number] : 1940 75 From: Rigoberto Tadeo MD Attending Dr: Status: DEP ER Ordering Dr: Selene Sullivan MD Date: 01/24/16 Location: ED Sex: F C Admitted: Test Reason : DIZZINESS Blood Pressure : / mmHG Vent. Rate : 080 BPM Atrial Rate : 080 BPM P-R Int : 158 ms QRS Dur : 096 ms QT Int : 384 ms P-R-T Axes : 066 028 096 degrees QTc Int : 442 ms Normal sinus rhythm Septal infarct , age u ndetermined Abnormal ECG Confirmed by FAYE DELGADILLO, RIGOBERTO ([id number]), school photograph editor FABIEN COVARRUBIAS ([id number]) on 01/27/2016 3:55:07 PM Referred By: KALLI Confirmed By:RIGOBERTO TADEO MD 01/27/16 1555 Date Rigoberto Tadeo MD CC: Marilu Uribe MD Date Dictated: 01/24/161955 Date Transcribed: 01/24/161955 Turning Lathe Tender: Signed 25-Jan-2016 Emergency Department Summary Result: Comments: See Note; NOTES: [facility] Medical Records Department [address] [place] [address] Emergency Department Summary MR#: [id number] Acct: [id number] Name: SAADIA SWANN Rep #: [id number] : 1940 75 From: Selene Sullivan MD PCP: Marilu Uribe MD Status: DEP ER DATE OF SERVICE: 01/24/2016 CHIEF COMPLAINT: Lightheadedness. HISTORY OF PRESENT ILLNESS: This is a 75-year-old female who started having symptoms today of severe lightheadedness, especially when she turns her head. It is most noticeable when she turns her head to the right. She feels like she is abo ut to pass out. She breaks out in a cold sweat. She is not having any chest pain or dyspnea. No visual changes or tinnitus, no diplopia. She has never experienced anything like this before. Denies any t rauma or injury. PAST MEDICAL HISTORY: Coronary artery disease, hypertension, hypercholesterolemia, bilateral carotid endarterectomies with the right being done in 1998 and the left done in 1988. She h ad a bovine valve replacement at the [facility] back in July. PHYSICAL EXAMINATION: VITAL SIGNS: She is hypertensive with a blood pressure of 213/83 initially. Other vitals are unremarkable. GEN ERAL: She looks well, is sitting quietly in bed. NEUROLOGIC: Cranial nerves II- XII are intact. There is no carotid bruit. NIH is 0. HEART: Rate is regular. LUNGS: Clear to auscultation bilaterally with no respiratory distress. HEENT: Mucous membranes are moist. NECK: Supple and nontender. CLINICAL COURSE AND DECISION MAKING: EKG was normal sinus. Given the description of the patient's symptoms, I was concerned for potential vascular etiology and I did get a noncontrast head CT as well as a CTA of head and neck and she was pretreated with Benadryl and Solu-Medrol for reported ALLERGY OR REACTION TO CONTRAST DYE. She tolerated the imaging just fine and was actually found to have critical stenosis to the right carotid artery at 79% with only 1.1 mm patency. The left side was at a little over 60% occ lusion. CBC was notable for chronic anemia. Chemistry notable for potassium of 3.3 and glucose of 129. Troponin was negative. The patient reported that she is feeling better when I reevaluated her and t hat her symptoms have lessened, but she has not gotten out of bed. Case was initially discussed with Dr. Fox, who confirmed that he does not manage this type of patient. She will likely need stenting as opposed to endarterectomy because she has already had the endarterectomies and he recommended transfer and the patient requested the [facility] where she has been a patient in the past. I am cu rrently awaiting their call and presuming I am able to get a receiving physician. She will be transferred there in stable condition. DIAGNOSES: 1. Critical carotid stenosis with symptoms. 2. Hypertensi on. 3. Hypokalemia. 4. Anemia. MD Julienne Wilkerson C: Marilu Uribe MD T: [facility] JOB: [id number] 01/25/16 1520 <Electronically signed by Selene Sullivan MD> Date Selene Sullivan MD Cosigner Signature (If Indicated): Date CC: Marilu Uribe MD Date Dictated: 01/25/1624 Date Transcribed: 01/25/1624 Turning Lathe Tender: Signed 24-Jan-2016 CTA Head W/WO Contrast Result: Comments: See Note; NOTES: [facility] Imaging Services [address] [place] [address] Verdana 4d CTA Head W/WO Contrast MR#: [id number] Acct: [id number] Name: JUANITOSAMMY R #: [id number] : 1940 F 75 From: Catherine Lomas DO PCP: Marilu Uribe MD Status: REG ER Study: CTA Head W/WO Contrast Date of Exam: 01/24/16 Exam# [id number] Ordering Dr: Selene Sullivan MD STUD Y: CTA OF THE BRAIN REASON FOR EXAM: Female, 75 years old. Dizziness, hypertension, coronary artery disease, breast carcinoma, carotid endarterectomy RADIATION DOSAGE (If Supplied By Facility): CTDIvo l = ( 28.79 ) mGy, DLP = ( 1434.7 ) mGycm TECHNIQUE: CT angiography was performed with a multi-detector CT scanner. Data acquisition was obtained from the skull base through the vertex following intrav enous administration of 100 ml of Isovue-300. Axial coronal and sagittal images are sent for review. Individualized dose optimization techniques were used for this CT. COMPARISON: None. FINDINGS: Normal bilateral petrous carotid arteries. There is calcified plaque formation of the right cavernous carotid artery, with a mild stenosis (less than 50%). There is calc ified plaque formation of the left cavernous carotid artery, with a mild stenosis (less than 50%). Normal right A1 segments of the anterior cerebral artery. Normal left A1 segments of the anterior cere bral artery. Normal intact anterior communicating artery (ACOM). Normal bilateral A2 segments of the anterior cerebral arteries. Normal right M1 and M2 segments of the middle cerebral arteries, with a normal M1 bifurcation. Normal left M1 and M2 segments of the middle cerebral arteries, with a normal M1 bifurcation. There is non-visualization of the right posterior communicating artery (PCOM). There is non-visualization of the left posterior communicating artery (PCOM). Normal bilateral vertebral arteries. Normal basilar artery with a normal basilar bifurcation. The visualized bilateral superior cerebellar (SCA) arteries are normal. Normal bilateral P1, P2 and visualized P3 segments of the posterior cerebral arteries. There is no demonstrated aneurysm of the [place]. There is no demo nstrated abnormality of the visualized brain. CT/CTA Head W/WO Contrast IMPRESSION: Incomplete [place], a normal anatomic variation. No nstenotic calcification of the cavernous portions of the internal carotid arteries. Otherwise normal intracranial CTA. Electronically Signed: Catherine Lomas DO at 22:59 EDT Tel , Service support [phone], CC: Selene Sullivan MD; Marilu Uribe MD Turning Lathe Tender: Signed 24-Jan-2016 CTA Head W/WO Contrast Result: Comments: See Note; NOTES: [facility] Imaging Services [address] [place] [address] Verdana 4d CTA Head W/WO Contrast MR#: [id number] Acct: [id number] Name: SAMMY SWANN #: [id number] : 1940 F 75 From: Catherine Lomas DO PCP: Marilu Uribe MD Status: DEP ER Study: CTA Head W/WO Contrast Date of Exam: 01/24/16 Exam# [id number] Ordering Dr: Selene Sullivan MD ADDE NDUM by Catherine Lomas DO on 02/24/[address]/CTA Head W/WO Contrast 02/24/16 180 Date cc: Selene Sullivan MD; Marilu Uribe MD * Signed ADDENDUM by Catherine Porter O on 02/24/16 at 1802 ADDENDUM ADDENDUM: Request of the referring clinician study is reevaluated for patency of the left subclavian vein. There is hyperdense contrast in the left subclavian vein. This is seen on the coronal and sagittal reformatted images obtained through the neck. Venous evaluation i s limited. Left upper extremity venous sonogram is recommended in further assessment. Electronically Signed: Catherine Lomas DO at 18:02 EDT Tel , Service support [phone], 02/24/16 1802 Date cc: Selene Sullivan MD; Marilu Uribe MD * Signed STUDY: CTA OF THE BRAIN REASON FOR EXAM: Female, 75 years old. Dizziness, hypertension, coronary ar bridgette disease, breast carcinoma, carotid endarterectomy RADIATION DOSAGE (If Supplied By Facility): CTDIvol = ( 28.79 ) mGy, DLP = ( 1434.7 ) mGycm TECHNIQUE: CT angiography was performed with a multi- detector CT scanner. Data acquisition was obtained from the skull base through the vertex following intravenous administration of 100 ml of Isovue-300. Axial coronal and sagittal images are sent for rev iew. Individualized dose optimization techniques were used for this CT. COMPARISON: None. FINDINGS: Normal bilateral petrous carotid arteries. There is calcified p laque formation of the right cavernous carotid artery, with a mild stenosis (less than 50%). There is calcified plaque formation of the left cavernous carotid artery, with a mild stenosis (less than 50% ). Normal right A1 segments of the anterior cerebral artery. Normal left A1 segments of the anterior cerebral artery. Normal intact anterior communicating artery (ACOM). Normal bilateral A2 segments of the anterior cerebral arteries. Normal right M1 and M2 segments of the middle cerebral arteries, with a normal M1 bifurcation. Normal left M1 and M2 segments of the middle cerebral arteries, with a no rmal M1 bifurcation. There is non-visualization of the right posterior communicating artery (PCOM). There is non-visualization of the left posterior communicating artery (PCOM). Normal bilateral verte bral arteries. Normal basilar artery with a normal basilar bifurcation. The visualized bilateral superior cerebellar (SCA) arteries are normal. Normal bilateral P1, P2 and visualized P3 segments of the posterior cerebral arteries. There is no demonstrated aneurysm of the [place]. There is no demonstrated abnormality of the visualized brain. ORDER #: CT/CTA Head W/WO Contrast IMPRESSION: Incomplete [place], a normal anatomic variation. Nonstenotic calcification of the cavernous portions of the internal carotid arteries. Otherwise no rmal intracranial CTA. Electronically Signed: Catherine Lomas DO at 22:59 EDT Tel , Service support [phone], CC: Selene Sullivan MD; Marilu Uribe MD Turning Lathe Tender: Signed 24-Jan-2016 CTA Neck W/WO Contrast Result: Comments: See Note; NOTES: [facility] Imaging Services [address] [place] [address] Verdana 4d CTA Neck W/WO Contrast MR#: [id number] Acct: [id number] Name: SAMMY SWANN ep #: [id number] : 1940 F 75 From: Catherine Lomas DO PCP: Marilu Uribe MD Status: DEP ER Study: CTA Neck W/WO Contrast Date of Exam: 01/24/16 Exam# [id number] Ordering Dr: Selene Sullivan MD ADDE NDUM by Catherine Lomas DO on 02/24/[address]/CTA Neck W/WO Contrast 02/24/16 1751 Date cc: Selene Sullivan MD; Marilu Uribe MD * Signed ADDENDUM by Catherine Garcia on 02/24/16 at 1744 ADDENDUM ADDENDUM: This examination is being reevaluated at the request of the referring clinician specifically with respect to potential stenosis of the left subclavian vein. Site of injection is not specified. There is hyperdense contrast entering the superior vena cava from a small vessel anterior to the left subclavian vein which may represent collateral flow. The left subclavian vein enhances and demonstrates normal caliber. It is not clear if this is related to antegrade or retrograde flow. Sonogram may be beneficial in further assessment. Distal occlusion in the axillary vein or more peripheral cannot be excluded. Electronically Signed: Catherine Lomas DO a t 17:44 EDT Tel , Service support [phone], 02/24/16 1744 Date cc: Selene Sullivan MD; Marilu Uribe MD * Signed STUDY: CTA NECK WITH CONTRAST REASON FOR EXAM: Female, 75 years old. Dizziness, hypertension, coronary artery disease, breast carcinoma, carotid endarterectomy RADIATION DOSAGE (If Supplied By Facility): CTDIvol = ( ) mGy, DLP = ( ) mGycm TECHNIQUE: CT angiography with multi-detector data acquisition was performed from the aortic arch to the skull base following intravenous administration of 100 ml of Isovue 300 contrast. MIP images we re reconstructed from the axial data set. Post-processing of the angiographic images was performed, with multiplanar reformation and 3D reconstruction. Individualized dose optimization techniques were used for this CT. COMPARISON: None. FINDINGS: AORTIC ARCH: There is atherosclerotic calcific plaque formation of the aortic arch and great vessels arising from the aortic arch, without a hemodynamically significant stenosis. There is a normal origin of the brachiocephalic, left common carotid, and left subclavian arteries. RIGHT CAROTID ARTERIES: There is athero sclerotic tortuous elongation of the right common carotid artery. There is focal narrowing of the enhancing lumen in the right carotid bulb. The lumen measures 1.1 Mm diameter compared with the proximal right internal carotid artery 5.1 mm. There is estimated at 79 % diameter stenosis. There are is similar stenosis extending into the proximal right internal carotid artery. There is atherosclerotic to rtuous elongation of the cervical portion of the right internal carotid artery. There is mild distal calcific plaque. Normal origin of the right external carotid artery (ECA). LEFT CAROTID ARTERIES: T here is atherosclerotic tortuous elongation of the left common carotid artery. There is moderate atherosclerotic plaque formation with moderate narrowing of the carotid bulb. There is calcific and fibr ofatty atherosclerotic plaque at the origin of the left internal carotid artery. There is estimated 60% diameter stenosis at the origin of the left internal carotid artery. The patent lumen measures 1.8 mm. More distal the patent lumen measures 4.4 mm. There is atherosclerotic tortuous elongation of the cervical portion of the left internal carotid artery. Normal origin of the left external carotid a rtery (ECA). VERTEBRAL ARTERIES: Normal bilateral vertebral arteries. CT/CTA Neck W/WO Contrast IMPRESSION: Estimated 79% diameter stenosis in the right carotid bulb and proximal internal carotid artery. The patent lumen measures 1.1 mm. Estimated 60% diameter stenosis in the proximal left internal carotid artery. N.B. : The above information has been verbally conveyed by Catherine Lomas DO to Selene Sullivan MD, Referring Physician, on 01/24/2016 23:15:16 (ET). Electronically Signed: Catherine Lomas DO at 23:09 EDT Tel , Service support [phone], N.B. : The above information has been verbally conveyed by Catherine Lomas DO to Selene Sullivan MD, Referring Physician, on 01/24/2016 23:15:16 (ET). CC: Selene Sullivan MD; Marilu Uribe MD Turning Lathe Tender: Signed 24-Jan-2016 CTA Neck W/WO Contrast Result: Comments: See Note; NOTES: [facility] Imaging Services [address] [place] [address] Verdana 4d CTA Neck W/WO Contrast MR#: [id number] Acct: [id number] Name: SAMMY SWANN #: [id number] : 1940 F 75 From: Catherine Lomas DO PCP: Marilu Uribe MD Status: REG ER Study: CTA Neck W/WO Contrast Date of Exam: 01/24/16 Exam# [id number] Ordering Dr: Selene Sullivan MD STUD Y: CTA NECK WITH CONTRAST REASON FOR EXAM: Female, 75 years old. Dizziness, hypertension, coronary artery disease, breast carcinoma, carotid endarterectomy RADIATION DOSAGE (If Supplied By Facility): CTDIvol = ( ) mGy, DLP = ( ) mGycm TECHNIQUE: CT angiography with multi-detector data acquisition was performed from the aortic arch to the skull base following intravenous administration of 100 ml of Isovue 300 contrast. MIP images were reconstructed from the axial data set. Post- processing of the angiographic images was performed, with multiplanar reformation and 3D reconstruction. Individualized dose optimization techniques were used for this CT. COMPARISON: None. FINDINGS: AORTIC ARCH: There is atherosclerotic calcific plaque formation of the aortic arch and great vessels arising from the aortic arch, without a hemodynamically significant stenosis. There is a normal origin of the brachiocephalic, left common carotid, and left subclavian arteries. RIGHT CAROTID ARTERIES: There is atherosclerotic tortuous elongation of the right common carotid artery. There is focal narrowing of the enhancing lumen in the right carotid bulb. The lumen measures 1.1 Mm d iameter compared with the proximal right internal carotid artery 5.1 mm. There is estimated at 79 % diameter stenosis. There are is similar stenosis extending into the proximal right internal carotid a rtery. There is atherosclerotic tortuous elongation of the cervical portion of the right internal carotid artery. There is mild distal calcific plaque. Normal origin of the right external carotid arter y (ECA). LEFT CAROTID ARTERIES: There is atherosclerotic tortuous elongation of the left common carotid artery. There is moderate atherosclerotic plaque formation with moderate narrowing of the carotid bulb. There is calcific and fibrofatty atherosclerotic plaque at the origin of the left internal carotid artery. There is estimated 60% diameter stenosis at the origin of the left internal carotid art tami. The patent lumen measures 1.8 mm. More distal the patent lumen measures 4.4 mm. There is atherosclerotic tortuous elongation of the cervical portion of the left internal carotid artery. Normal sh[place]el gin of the left external carotid artery (ECA). VERTEBRAL ARTERIES: Normal bilateral vertebral arteries. CT/CTA Neck W/WO Contrast IMPRESSION: E stimated 79% diameter stenosis in the right carotid bulb and proximal internal carotid artery. The patent lumen measures 1.1 mm. Estimated 60% diameter stenosis in the proximal left internal carotid art tami. N.B. : The above information has been verbally conveyed by Catherine Lomas DO to Selene Sullivan MD, Referring Physician, on 01/24/2016 23:15:16 (ET). Electronically Signed: Catherine Lomas DO at 23:09 EDT Tel , Service support [phone], N.B. : The above information has been verbally conveyed by Catherine Lomas DO to Selene Sullivan MD, Referring Physicia n, on 01/24/2016 23:15:16 (ET). CC: Selene Sullivan MD; Marilu Uribe MD Turning Lathe Tender: Signed 15-Nov-2014 Transvaginal Non- Result: Comments: See Note; NOTES: [facility] Imaging Services [address] [place] [address] Ultrasound Report MR#: [id number] Acct: [id number] Name: SAMMY SWANN Rep #: [id number] : 1940 F 74 From: Isidro Walden DO PCP: Marilu Uribe MD Status: REG CLI Study: Transvaginal Non- Date of Exam: 11/15/14 Exam# [id number] Ordering Dr: Marilu Uribe MD STUDY: ULTRASOUND OF THE FEMALE PELVIS - COMPLETE REASON FOR EXAM: Female, 74 years old. LMP: Postmenopausal. Postmenopausal bleeding. TECHNIQUE: Transabdominal and Transvaginal TECHNICAL QUALITY: Adeq uate. COMPARISON: None. FINDINGS: The uterus is anteverted and is in a midline position. The uterus measures 5.5 x 3.7 x 3.0 cm. Normal uterine cervix. The end ometrium measures 7.4 mm in thickness, and is hyperechoic with multiple focal anechoic areas which may represent cystic change fluid.. There is no demonstrated endometrial mass. There is no demonstra shay myometrial mass. I.U.D. - The patient does not have an I.U.D. The right ovary is nonvisualized. There is no visualized right adnexal mass or complex lesion. The left ovary is visualized. The l eft ovary measures 2.1 x 1.4 x 1.1 cm. There is no left ovarian cyst or ovarian mass. There is no visualized left adnexal mass or complex lesion. There is normal arterial and normal venous vascularit y. There is no fluid in the cul-de-sac. The volume of the urinary bladder was 150 ml. IMPRESSION: 1. Mild prominence of the endometrium and questionable cyst ic changes versus fluid within the endometrial canal. 2. Nonvisualization of the right ovary. Electronically Signed: Isidro Walden DO at 13:25 EDT Tel [phone], Service support , CC: Marilu Uribe MD Turning Lathe Tender: Signed 15-Nov-2014 Pelvic (Non ) Result: Comments: See Note; NOTES: [facility] Imaging Services [address] [place] [address] Ultrasound Report MR#: [id number] Acct: [id number] Name: SAMMY SWANN Rep #: [id number] : 1940 F 74 From: Isidro Walden DO PCP: Marilu Uribe MD Status: REG CLI Study: Pelvic (Non ) Date of Exam: 11/15/14 Exam# [id number] Ordering Dr: Marilu Uribe MD STUDY: ULT RASOUND OF THE FEMALE PELVIS - COMPLETE REASON FOR EXAM: Female, 74 years old. LMP: Postmenopausal. Postmenopausal bleeding. TECHNIQUE: Transabdominal and Transvaginal TECHNICAL QUALITY: Adequate . COMPARISON: None. FINDINGS: The uterus is anteverted and is in a midline position. The uterus measures 5.5 x 3.7 x 3.0 cm. Normal uterine cervix. The endomet rium measures 7.4 mm in thickness, and is hyperechoic with multiple focal anechoic areas which may represent cystic change fluid.. There is no demonstrated endometrial mass. There is no demonstrated myometrial mass. I.U.D. - The patient does not have an I.U.D. The right ovary is nonvisualized. There is no visualized right adnexal mass or complex lesion. The left ovary is visualized. The left ovary measures 2.1 x 1.4 x 1.1 cm. There is no left ovarian cyst or ovarian mass. There is no visualized left adnexal mass or complex lesion. There is normal arterial and normal venous vascularity. There is no fluid in the cul-de-sac. The volume of the urinary bladder was 150 ml. IMPRESSION: 1. Mild prominence of the endometrium and questionable cystic c hanges versus fluid within the endometrial canal. 2. Nonvisualization of the right ovary. Electronically Signed: Isidro Walden DO at 13:25 EDT Tel [phone], Service support , CC: Marilu Uribe MD Turning Lathe Tender: Signed 22-Oct-2014 Knee 4 or More Views Result: Comments: See Note; NOTES: [facility] Imaging Services [address] [place] [address] Radiology Report MR#: [id number] Acct: [id number] Name: SAMMY SWANN Rep #: [id number] : 1940 F 74 From: Hector Oliva MD PCP: Marilu Uribe MD Status: REG CLI Study: Knee 4 or More Views Date of Exam: 10/22/14 Exam# [id number] Ordering Dr: Verna Silveira DO STUDY: X- RAY - LEFT KNEE REASON FOR EXAM: Female, 74 years old. Anterior knee pain and swelling. TECHNIQUE: 4 view(s) of the knee. COMPARISON: None. FINDINGS: Normal visualized distal femur. Normal visualized proximal tibia and fibula. Normal proximal tibiofibular articulation. There is mild degenerative arthrosis of the medial femorotibial compartment. Normal lateral femorotibial compartment. Normal patellofemoral articulation. There is a small joint effusion. The soft tissue structures are unremarkable. IMPRESSION: Medial compartmental arthrosis with small joint effusion. 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 Electronically Signed: Hector Oliva MD at 16:21 EDT , Servic e support [phone], CC: Verna Silveira DO; Marilu Uribe MD Turning Lathe Tender: Signed 15-May-2014 Emergency Department Summary Result: Comments: See Note; NOTES: [facility] Medical Records Department [address] [place] [address] Emergency Department Summary MR#: [id number] Acct: [id number] Name: SAMMY SWANN Rep #: [id number] : 1940 73 From: Donnie Escobar MD PCP: Marilu Uribe MD Status: DEP ER DATE OF SERVICE: 05/11/2014 METHOD OF ARRIVAL: EMS. CHIEF COMPLAINT: Nosebleed. PRIMA RY CARE: Marilu Uribe M.D. 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 She is on Pletal. She denies being on Plavix or Coumadin. She comes in by squad with nosebleed that just occurred prior to arrival. She states she sneezed and blew her nose and the n started bleeding. It is on right side only. She states it lasted 15 minutes. By the time she came in, it resolved. She denies any other complaints. Denies fever, chills, cough, shortness of breat h, nausea, vomiting, diarrhea or other complaints. PHYSICAL EXAMINATION: VITAL SIGNS: Stable. Afebrile. HEENT: There is no active bleeding at this time. She does have a clot in the right anterior septum without bleeding. There is no blood in the posterior pharynx. The left naris is unremarkable. LUNGS: Clear. HEART: Regular. ABDOMEN: Soft and nontender with remainder of the exam unremarkabl e. EMERGENCY DEPARTMENT COURSE: At this time, I do not believe blood work is indicated. She is not on anything that requires PT and INR. Her bleeding only lasted 15 minutes. I do not believe a CBC is indicated. She does have a scab on the right anterior septum. I discussed with her about no packing, option #2 was Merocel pack and option #3 was Rhino Rocket. She does not wish to do a Rhino Ruperto ket. She wished to go ahead and do Merocel pack; therefore, the patient had Afrin instilled cotton swabs and the Merocel pack was placed. She tolerated this well. She will be placed on clindamycin. E ncouraged to follow up with Dr. Toro Meek, who is on for ENT. CLINICAL IMPRESSION: Right anterior epistaxis. DISPOSITION: Home. MD Julienne Brennan C: Marilu Meek MD T: [facility] JOB: [id number] 05/15/14 0838 <Electronically signed by Donnie Escobar MD> Date Donnie Escobar MD CC: Marilu Uribe MD; Toro escalante MD Date Dictated: 05/11/141321 Date Transcribed: 05/11/141321 Turning Lathe Tender: Signed 11-May-2014 Discharge Instruction Result: Comments: See Note; NOTES: [facility] Medical Records Department [address] [place] [address] Discharge Instruction 05/11/14 1317 MR#: [id number] Acct: [id number] Name: SAMMY SWANN Rep #: [id number] : 1940 73 From: Donnie Escobar MD PCP: Marilu Uribe MD Status: PRE ER ED Disposition - Plan for ED Patient: Disposition: Home Chief Complaint: Nosebleed Instructions: Nosebleed Prescriptions: Clindamycin HCl 300 mg PO Q8 #30 capsule Referrals: Marilu Uribe MD [Primary Care Provider] - Toro Meek MD [STAFF PHYSICIAN] - 3-5 Days Additional Ins tructions: follow up with dr Meek. packing out in 3 days. return with problems. What to do if you have Problems For any increased pain, shortness of breath, bleeding, nausea or vomiting, chest pain, or any unexpected problems, contact your doctor. Call [facility] ) or report to the closest Emergency Room. Call 911 if necessary. 05/11/14 1319 <Electronically si gned by Donnie Escobar MD> Date Donnie Escobar MD Cosigner Signature (If Indicated): Date CC: Marilu Uribe MD 05-Sep-2013 Emergency Department Summary Result: Comments: See Note; NOTES: [facility] Medical Records Department [address] [place] [address] Emergency Department Summary MR#: [id number] Acct: [id number] Name: SAMMY SWANN Rep #: [id number] : 1940 73 From: Michael Jain MD PCP: Marilu Uribe MD Status: DEP ER DATE OF SERVICE: 09/01/2013 CHIEF COMPLAINT: Chest pain. HISTORY OF PRESENT ILLNESS: This is a 73-year-old female with known history of heart disease, has had prior heart catheterization, nothing done recently. She has also had carotid disease and bilateral carotid endarterectomies. States that she has had chest pain today, came on suddenly while she was in bed just watching TV. It was across her chest, there was a burning sensation in her shoulder. She became diaphoretic, florian seated and short of breath. This was without exertion. Currently, she said her symptoms are improving and almost resolved. PHYSICAL EXAMINATION: GENERAL: A 73-year-old female. VITAL SIGNS: Stable , afebrile. Pulse oximetry 100% on 3 L. No hypoxia. HEENT: Unremarkable. NECK: Nontender. LUNGS: Clear to auscultation bilaterally. HEART: Regular rate and rhythm with a IV/ systolic ejection murm ur. She has known history of heart murmur. Chest wall nontender. ABDOMEN: Soft, nontender and nondistended. No organomegaly or masses. EXTREMITIES: Moves all 4. Calves nontender. No edema. No cords. NEUROLOGIC: She is awake. She is alert. She has no focal motor deficits. EMERGENCY DEPARTMENT COURSE: Elderly female with chest discomfort. TEST RESULTS: Chest x-ray normal cardiac silhouette and mediastinum, portable 1 view, no acute process, read by myself. EKG sinus rhythm, rate 83 with LVH. CBC normal. Electrolytes normal. Normal BUN, creatinine and gap. Cardiac enzymes, her troponin is abnormal, slightly elevated at 0.18. Otherwise, her CK and MB are normal at 95 and 1.2. Repeat exam at 0418, resting comfortably and pain-free. IMPRESSION: 1. Chest pain of uncertain etiology. 2 . Abnormal troponin. 3. Valvular heart disease. 4. History of prior carotid disease. PLAN: I will speak to Dr. Leong about admitting the patient for further enzymes and some form of further cardi ac testing and evaluation. MD Julienne Okeefe C: Marilu Carroll MD T: [facility] JOB: [id number] 09/05/13 1701 <Electronically signed by Michael Jain MD> Date ___ Michael Jain MD CC: Marilu Uribe MD; Tanner Carroll MD Date Dictated: 09/01/134 Date Transcribed: 09/01/13423 Turning Lathe Tender: Signed 05-Sep-2013 Emergency Department Summary Result: Comments: See Note; NOTES: [facility] Medical Records Department [address] [place] [address] Emergency Department Summary MR#: [id number] Acct: [id number] Name: SAMMY SWANN Rep #: [id number] : 1940 73 From: Michael Jain MD PCP: Marilu Uribe MD Status: DEP ER DATE OF SERVICE: 09/01/2013 CHIEF COMPLAINT: Chest discomfort. HISTORY OF PRESENT ILL NESS: This is a 73-year-old female was at home in bed watching TV when she had a burning across her chest, across her shoulders, associated with dyspnea, diaphoresis and nausea. She has had these s ymptoms before. She has had prior bilateral carotid endarterectomies, one 25 years ago, the other 10. She has never had any cardiac surgeries but has had prior cardiac catheterization, never had any stents. She does have a history of aortic valvular heart disease and was told that she was going to need further evaluation of her carotids. PHYSICAL EXAMINATION: VITAL SIGNS: Stable, afebrile. Do es not look septic or toxic. Pulse ox 100 percent on 3 L. No hypoxia. HEENT: Unremarkable. NECK: Nontender. LUNGS: Clear. HEART: Regular rate and rhythm, IV/ systolic ejection murmur. Chest wall nontender. ABDOMEN: Soft and nontender. EXTREMITIES: Moves all 4. Calves nontender. No edema. No cords. NEUROLOGIC: Awake, alert, no focal deficits. EMERGENCY DEPARTMENT COURSE: 73-year-old with nonexertional chest pain with a known history of prior carotid disease and valvular heart disease. TEST RESULTS: Chest x-ray, normal cardiac silhouette, normal mediastinum. EKG sinus rhythm, rate 83, LVH. No acute signs of NC or ischemia. No old EKG available for comparison. CBC, white count is 6, H and H 10 and 31, no bands. Electrolytes are normal. Normal BUN, creatinine and gap. Troponin slightly elevated at 0.18. Normal CK-MB. The patient initially aspirin, but she deferred due to her being on Plavix. On repeat exam, she is doing well at 0418. IMPRESSION: 1. Chest pain, uncertai n etiology. 2. Abnormal troponin. 3. History of carotid disease. 4. History of valvular heart disease. PLAN: I spoke to hospitalist, Dr. Leong, was concerned of the patient's complexity of her car e including potential carotid and/or interventional cath with valvular heart disease. She would need a larger facility. Discussed with the patient and she will be transferred to [facility]. T mayi are on page, awaiting to speak to their physician. MD Julienne Okeefe C: Marilu Carroll MD T: [facility] JOB: [id number] 09/05/13 1701 <Electronically signed by Michael Jain MD> Date Michael Jain MD CC: Marilu Uribe MD; Tanner Carroll MD Date Dictated: 09/01/13447 Date Transcribed: 09/01/13447 Turning Lathe Tender: Signed 03-Sep-2013 12 Lead Electrocardiogram Result: Comments: See Note; NOTES: [facility] Cardiovascular Services [address] [place] [address] 12 Lead EKG 09/01/13255 MR#: [id number] Acct: [id number] Name: SAADIA SWANN Rep #: [id number] : 1940 73 From: Fredi Aponte MD Attending Dr: Status: DEP ER Ordering Dr: Michael Jain MD Date: 09/01/13 Location: ED Sex: F C Admitted: Test Reason : CP Bl ood Pressure : / mmHG Vent. Rate : 083 BPM Atrial Rate : 083 BPM P-R Int : 154 ms QRS Dur : 100 ms QT Int : 402 ms P-R-T Axes : 070 031 125 degrees QTc Int : 472 ms Normal sinus rhythm Left atrial enlargement Left ventricular hypertrophy with repolarization abnormality Abnormal ECG Confirmed by JOSE MANUEL DELGADILLO, FREDI ([id number]), school photograph editor FABIEN COVARRUBIAS ([id number]) on 2013 10:38:27 AM Referred By: Michael Jain Confirmed By:FREDI APONTE MD CC: Marilu Uribe MD Date Dictated: 09/01/13255 Date Transcribed: 09/01/13255 Turning Lathe Tender: Signed 01-Sep-2013 Chest 1 View (Portable) Result: Comments: See Note; NOTES: [facility] Imaging Services [address] [place] [address] Radiology Report MR#: [id number] Acct: [id number] Name: SAMMY SWANN Rep #: [id number] : 1940 F 73 From: Zeinab Escalona PCP: Marilu Uribe MD Status: DEP ER Study: Chest 1 View (Portable) Date of Exam: 09/01/13 Exam# [id number] Ordering Dr: Michael Jain MD STUDY: X-RAY CHEST REASON FOR EXAM: Female, 73 years old. Nausea, lightheadedness and shortness of breath. TECHNIQUE: Single AP portable view of the chest. COMPARISON: 11/26/2011 FINDINGS: There is hyperinflation of the lungs consistent with chronic obstructive lung disease (COPD). Bilaterally there is mild chronic diffuse interstitial thickening. There is no acut e demonstrable pulmonary abnormality. There is no demonstrated pleural abnormality. Normal size heart. Normal mediastinum and erasmo. Normal visualized pulmonary arteries. There is atherosclerotic nicolás cification of the aortic arch. There is demineralization of the osseous structures. Normal visualized ribs, clavicles, and shoulders. Surgical clips are seen along the right and left axilla/chest w all. There is no demonstrated abnormality of the visualized soft tissue structures of the upper abdomen. IMPRESSION: No evidence of acute cardiopulmonary diseas e. Stable chest. Electronically Signed: Virgen Escalona MD at 9:04 EDT Tel , Service support [phone], RAD/Chest 1 View (Portabl e) IMPRESSION: No evidence of acute cardiopulmonary disease. Stable chest. Electronically Signed: Virgen Escalona MD at 9:04 EDT Tel , Service support [phone], Fax CC: Marilu Uribe MD; Michael Jain MD Turning Lathe Tender: Signed Family History Unknown Family Member Name Dates Details Father Comments: Anxiety/depression, cancer (muscle cancer and pancreatic?) Status: Active Mother Comments: Breast 35 yo, colon polyps & HBP & Heart disease Status: Active Sister 1 Comments: Heart.lung disease, HBP & High cholesterol. Status: Active Social History Name Dates Details Caffeine Use Comments: 4 Cups QD Status: Active Current Work/Study Status Comments: Retired, [employer] Status: Active Exercise History Comments: mow yard and house work..not sedentary, walk hour a day use seat belt Status: Active Living Situation Comments: lives with sister, son live in [place] Status: Active No Drug Use Status: Active Non Drinker/No Alcohol Use Status: Active Tobacco Use: Light tobacco smoker. Comments: 3-5 cigs for over 50 years Status: Active Tobacco use: Current every day smoker. Comments: updated 08-27-11 Status: Inactive Smoking Status Name Dates Details Former smoker Light tobacco smoker Vital Signs Date Test Result Details :24 Temperature 97.2 f Comments: Method: Temporal Pulse 80 /min Comments: Pattern: Regular Respiration Rate 18 /min Comments: Pattern: Unlabored O2 SAT 97 % Comments: Room air BP Systolic 140 mm[Hg] Comments: Patient Position: Sitting; Cuff Location: Left Arm; Cuff Size: Standard BP Diastolic 74 mm[Hg] Comments: Patient Position: Sitting; Cuff Location: Left Arm; Cuff Size: Standard Weight 164 lb Height 62.5 in Body Mass Index Calculated 29.52 kg/m2 Body Surface Area Calculated 1.77 m2 :36 Temperature 96.9 f Pulse 88 /min Comments: Pattern: Regular Respiration Rate 18 /min Comments: Pattern: Unlabored O2 SAT 97 % Comments: Room air BP Systolic 146 mm[Hg] Comments: Patient Position: Sitting; Cuff Location: Left Arm; Cuff Size: Standard BP Diastolic 62 mm[Hg] Comments: Patient Position: Sitting; Cuff Location: Left Arm; Cuff Size: Standard Weight 166 lb Height 62.5 in Body Mass Index Calculated 29.88 kg/m2 Body Surface Area Calculated 1.78 m2 [id number] Temperature 97.6 f Comments: Method: Temporal Pulse 74 /min Comments: Pattern: Regular Respiration Rate 20 /min Comments: Pattern: Unlabored O2 SAT 98 % Comments: Room air BP Systolic 160 mm[Hg] Comments: Patient Position: Sitting; Cuff Location: Left Arm; Cuff Size: Standard BP Diastolic 80 mm[Hg] Comments: Patient Position: Sitting; Cuff Location: Left Arm; Cuff Size: Standard Weight 166 lb Height 62.5 in Body Mass Index Calculated 29.88 kg/m2 Body Surface Area Calculated 1.78 m2 :15 Temperature 97.8 f Pulse 78 /min Comments: Pattern: Regular Respiration Rate 18 /min Comments: Pattern: Unlabored O2 SAT 96 % Comments: Room air BP Systolic 148 mm[Hg] Comments: Patient Position: Sitting; Cuff Location: Left Arm; Cuff Size: Standard BP Diastolic 68 mm[Hg] Comments: Patient Position: Sitting; Cuff Location: Left Arm; Cuff Size: Standard Weight 165.125 lb Height 62.5 in Body Mass Index Calculated 29.72 kg/m2 Body Surface Area Calculated 1.77 m2 :50 Temperature 97.9 f Comments: Method: Temporal Pulse 88 /min Comments: Pattern: Regular Respiration Rate 20 /min Comments: Pattern: Unlabored O2 SAT 97 % Comments: Room air BP Systolic 170 mm[Hg] Comments: Patient Position: Sitting; Cuff Location: Left Arm; Cuff Size: Standard BP Diastolic 70 mm[Hg] Comments: Patient Position: Sitting; Cuff Location: Left Arm; Cuff Size: Standard Weight 165 lb Height 62.5 in Body Mass Index Calculated 29.7 kg/m2 Body Surface Area Calculated 1.77 m2 [id number] Temperature 97.6 f Comments: Method: Temporal Pulse 76 /min Comments: Pattern: Regular Respiration Rate 20 /min Comments: Pattern: Unlabored O2 SAT 98 % Comments: Room air BP Systolic 140 mm[Hg] Comments: Patient Position: Sitting; Cuff Location: Left Arm; Cuff Size: Standard BP Diastolic 78 mm[Hg] Comments: Patient Position: Sitting; Cuff Location: Left Arm; Cuff Size: Standard Weight 165 lb Height 62.5 in Body Mass Index Calculated 29.7 kg/m2 Body Surface Area Calculated 1.77 m2 [id number]:51 Temperature 96.8 f Pulse 86 /min Comments: Pattern: Regular Respiration Rate 16 /min Comments: Pattern: Unlabored O2 SAT 96 % Comments: Room air BP Systolic 124 mm[Hg] Comments: Patient Position: Sitting; Cuff Location: Left Arm; Cuff Size: Standard BP Diastolic 68 mm[Hg] Comments: Patient Position: Sitting; Cuff Location: Left Arm; Cuff Size: Standard Weight 161.375 lb Height 62.5 in Body Mass Index Calculated 29.05 kg/m2 Body Surface Area Calculated 1.76 m2 :55 Temperature 97.6 f Comments: Method: Temporal Pulse 90 /min Comments: Pattern: Regular Respiration Rate 24 /min Comments: Pattern: Unlabored O2 SAT 98 % Comments: Room air BP Systolic 136 mm[Hg] Comments: Patient Position: Sitting; Cuff Location: Left Arm; Cuff Size: Standard BP Diastolic 70 mm[Hg] Comments: Patient Position: Sitting; Cuff Location: Left Arm; Cuff Size: Standard Weight 160 lb Height 62.5 in Body Mass Index Calculated 28.8 kg/m2 Body Surface Area Calculated 1.75 m2 :18 Pulse 67 /min Comments: Pattern: Regular Respiration Rate 16 /min Comments: Pattern: Unlabored O2 SAT 97 % Comments: Room air BP Systolic 144 mm[Hg] Comments: Patient Position: Sitting; Cuff Location: Left Arm; Cuff Size: Standard BP Diastolic 60 mm[Hg] Comments: Patient Position: Sitting; Cuff Location: Left Arm; Cuff Size: Standard Weight 161.5 lb Height 61 in Body Mass Index Calculated 30.51 kg/m2 Body Surface Area Calculated 1.73 m2 :14 Temperature 97.4 f Comments: Method: Temporal Pulse 78 /min Comments: Pattern: Regular Respiration Rate 20 /min Comments: Pattern: Unlabored O2 SAT 97 % Comments: Room air BP Systolic 154 mm[Hg] Comments: Patient Position: Sitting; Cuff Location: Left Arm; Cuff Size: Standard BP Diastolic 80 mm[Hg] Comments: Patient Position: Sitting; Cuff Location: Left Arm; Cuff Size: Standard Weight 162 lb Height 61 in Body Mass Index Calculated 30.61 kg/m2 Body Surface Area Calculated 1.73 m2 :33 Comments: at home 130/70 Temperature 97.6 f Comments: Method: Temporal Pulse 84 /min Comments: Pattern: Regular Respiration Rate 20 /min Comments: Pattern: Unlabored O2 SAT 95 % Comments: Room air BP Systolic 160 mm[Hg] Comments: Patient Position: Sitting; Cuff Location: Left Arm; Cuff Size: Standard BP Diastolic 80 mm[Hg] Comments: Patient Position: Sitting; Cuff Location: Left Arm; Cuff Size: Standard Weight 167 lb Height 61 in Body Mass Index Calculated 31.55 kg/m2 Body Surface Area Calculated 1.75 m2 :31 Temperature 97.6 f Comments: Method: Temporal Pulse 74 /min Comments: Pattern: Regular Respiration Rate 20 /min Comments: Pattern: Unlabored O2 SAT 97 % Comments: Room air BP Systolic 140 mm[Hg] Comments: Patient Position: Sitting; Cuff Location: Left Arm; Cuff Size: Standard BP Diastolic 80 mm[Hg] Comments: Patient Position: Sitting; Cuff Location: Left Arm; Cuff Size: Standard Weight 165 lb Height 61 in Body Mass Index Calculated 31.18 kg/m2 Body Surface Area Calculated 1.74 m2 :14 Temperature 97.6 f Comments: Method: Temporal Pulse 76 /min Comments: Pattern: Regular Respiration Rate 20 /min Comments: Pattern: Unlabored O2 SAT 98 % Comments: Room air BP Systolic 120 mm[Hg] Comments: Patient Position: Sitting; Cuff Location: Left Arm; Cuff Size: Standard BP Diastolic 70 mm[Hg] Comments: Patient Position: Sitting; Cuff Location: Left Arm; Cuff Size: Standard Weight 164 lb Height 61 in Body Mass Index Calculated 30.99 kg/m2 Body Surface Area Calculated 1.74 m2 :21 Pulse 96 /min Comments: Pattern: Regular BP Systolic 140 mm[Hg] Comments: Patient Position: Sitting; Cuff Location: Left Arm; Cuff Size: Standard BP Diastolic 70 mm[Hg] Comments: Patient Position: Sitting; Cuff Location: Left Arm; Cuff Size: Standard :21 Pulse 94 /min Comments: Pattern: Regular BP Systolic 144 mm[Hg] Comments: Patient Position: Sitting; Cuff Location: Left Arm; Cuff Size: Standard BP Diastolic 74 mm[Hg] Comments: Patient Position: Sitting; Cuff Location: Left Arm; Cuff Size: Standard :17 Temperature 97.6 f Comments: Method: Temporal Pulse 96 /min Comments: Pattern: Regular Respiration Rate 20 /min Comments: Pattern: Unlabored O2 SAT 97 % Comments: Room air BP Systolic 160 mm[Hg] Comments: Patient Position: Supine; Cuff Location: Left Arm; Cuff Size: Standard BP Diastolic 80 mm[Hg] Comments: Patient Position: Supine; Cuff Location: Left Arm; Cuff Size: Standard Weight 164 lb Height 61 in Body Mass Index Calculated 30.99 kg/m2 Body Surface Area Calculated 1.74 m2 :07 Temperature 97.6 f Comments: Method: Temporal Pulse 86 /min Comments: Pattern: Regular Respiration Rate 24 /min Comments: Pattern: Labored O2 SAT 98 % Comments: Room air BP Systolic 140 mm[Hg] Comments: Patient Position: Sitting; Cuff Location: Left Arm; Cuff Size: Standard BP Diastolic 80 mm[Hg] Comments: Patient Position: Sitting; Cuff Location: Left Arm; Cuff Size: Standard Weight 164 lb Height 61 in Body Mass Index Calculated 30.99 kg/m2 Body Surface Area Calculated 1.74 m2 :25 Temperature 97.9 f Comments: Method: Temporal Pulse 78 /min Comments: Pattern: Regular Respiration Rate 20 /min Comments: Pattern: Unlabored O2 SAT 97 % Comments: Room air BP Systolic 110 mm[Hg] Comments: Patient Position: Sitting; Cuff Location: Left Arm; Cuff Size: Standard BP Diastolic 80 mm[Hg] Comments: Patient Position: Sitting; Cuff Location: Left Arm; Cuff Size: Standard Weight 162 lb Height 61 in Body Mass Index Calculated 30.61 kg/m2 Body Surface Area Calculated 1.73 m2 :00 Temperature 97.5 f Comments: Method: Temporal Pulse 74 /min Comments: Pattern: Regular Respiration Rate 20 /min Comments: Pattern: Unlabored O2 SAT 97 % Comments: Room air BP Systolic 120 mm[Hg] Comments: Patient Position: Sitting; Cuff Location: Left Arm; Cuff Size: Standard BP Diastolic 74 mm[Hg] Comments: Patient Position: Sitting; Cuff Location: Left Arm; Cuff Size: Standard Weight 155 lb Height 61 in Body Mass Index Calculated 29.29 kg/m2 Body Surface Area Calculated 1.7 m2 :39 Temperature 97.6 f Comments: Method: Temporal Pulse 82 /min Comments: Pattern: Regular Respiration Rate 20 /min Comments: Pattern: Unlabored O2 SAT 95 % Comments: Room air BP Systolic 140 mm[Hg] Comments: Patient Position: Sitting; Cuff Location: Left Arm; Cuff Size: Standard BP Diastolic 80 mm[Hg] Comments: Patient Position: Sitting; Cuff Location: Left Arm; Cuff Size: Standard Weight 155 lb Height 61 in Body Mass Index Calculated 29.29 kg/m2 Body Surface Area Calculated 1.7 m2 :46 Temperature 97.6 f Comments: Method: Temporal Pulse 70 /min Comments: Pattern: Regular Respiration Rate 18 /min Comments: Pattern: Unlabored O2 SAT 97 % Comments: Room air BP Systolic 140 mm[Hg] Comments: Patient Position: Sitting; Cuff Location: Left Arm; Cuff Size: Standard BP Diastolic 76 mm[Hg] Comments: Patient Position: Sitting; Cuff Location: Left Arm; Cuff Size: Standard Weight 159 lb Height 61 in Body Mass Index Calculated 30.04 kg/m2 Body Surface Area Calculated 1.71 m2 :03 Temperature 97.8 f Comments: Method: Temporal Pulse 80 /min Comments: Pattern: Regular Respiration Rate 20 /min Comments: Pattern: Unlabored O2 SAT 98 % Comments: Room air BP Systolic 142 mm[Hg] Comments: Patient Position: Sitting; Cuff Location: Left Arm; Cuff Size: Standard BP Diastolic 60 mm[Hg] Comments: Patient Position: Sitting; Cuff Location: Left Arm; Cuff Size: Standard Weight 161 lb Height 64 in Body Mass Index Calculated 27.64 kg/m2 Body Surface Area Calculated 1.78 m2 :27 Temperature 97.6 f Comments: Method: Temporal Pulse 74 /min Comments: Pattern: Regular Respiration Rate 20 /min Comments: Pattern: Unlabored O2 SAT 98 % Comments: Room air BP Systolic 120 mm[Hg] Comments: Patient Position: Sitting; Cuff Location: Left Arm; Cuff Size: Standard BP Diastolic 80 mm[Hg] Comments: Patient Position: Sitting; Cuff Location: Left Arm; Cuff Size: Standard Weight 165 lb Height 64 in Body Mass Index Calculated 28.32 kg/m2 Body Surface Area Calculated 1.8 m2 :27 Temperature 97.6 f Comments: Method: Temporal Pulse 76 /min Comments: Pattern: Regular Respiration Rate 18 /min Comments: Pattern: Unlabored O2 SAT 98 % Comments: Room air BP Systolic 140 mm[Hg] Comments: Patient Position: Sitting; Cuff Location: Left Arm; Cuff Size: Standard BP Diastolic 70 mm[Hg] Comments: Patient Position: Sitting; Cuff Location: Left Arm; Cuff Size: Standard Weight 165 lb Height 64 in Body Mass Index Calculated 28.32 kg/m2 Body Surface Area Calculated 1.8 m2 :06 Temperature 97.6 f Comments: Method: Temporal Pulse 70 /min Comments: Pattern: Regular Respiration Rate 18 /min Comments: Pattern: Unlabored O2 SAT 97 % Comments: Room air BP Systolic 160 mm[Hg] Comments: Patient Position: Sitting; Cuff Location: Left Arm; Cuff Size: Standard BP Diastolic 80 mm[Hg] Comments: Patient Position: Sitting; Cuff Location: Left Arm; Cuff Size: Standard Weight 165 lb Height 64 in Body Mass Index Calculated 28.32 kg/m2 Body Surface Area Calculated 1.8 m2 :09 Temperature 98.6 f Comments: Method: Oral Pulse 88 /min Comments: Pattern: Regular Respiration Rate 16 /min Comments: Pattern: Unlabored O2 SAT 98 % Comments: Room air BP Systolic 170 mm[Hg] Comments: Patient Position: Sitting; Cuff Location: Left Arm; Cuff Size: Standard BP Diastolic 68 mm[Hg] Comments: Patient Position: Sitting; Cuff Location: Left Arm; Cuff Size: Standard Weight 164 lb Height 64 in Body Mass Index Calculated 28.15 kg/m2 Body Surface Area Calculated 1.8 m2 :43 Temperature 98.2 f Comments: Method: Temporal Pulse 76 /min Comments: Pattern: Regular Respiration Rate 16 /min Comments: Pattern: Unlabored O2 SAT 97 % Comments: Room air BP Systolic 120 mm[Hg] Comments: Patient Position: Sitting; Cuff Location: Left Arm; Cuff Size: Standard BP Diastolic 74 mm[Hg] Comments: Patient Position: Sitting; Cuff Location: Left Arm; Cuff Size: Standard Weight 162 lb Height 64 in Body Mass Index Calculated 27.81 kg/m2 Body Surface Area Calculated 1.79 m2 :59 Temperature 97.4 f Comments: Method: Temporal Pulse 80 /min Comments: Pattern: Regular Respiration Rate 20 /min Comments: Pattern: Unlabored O2 SAT 98 % Comments: Room air BP Systolic 120 mm[Hg] Comments: Patient Position: Sitting; Cuff Location: Left Arm; Cuff Size: Standard BP Diastolic 80 mm[Hg] Comments: Patient Position: Sitting; Cuff Location: Left Arm; Cuff Size: Standard Weight 162 lb Height 64 in Body Mass Index Calculated 27.81 kg/m2 Body Surface Area Calculated 1.79 m2 :10 Temperature 97.5 f Comments: Method: Temporal Pulse 80 /min Comments: Pattern: Regular Respiration Rate 20 /min Comments: Pattern: Unlabored O2 SAT 98 % Comments: Room air BP Systolic 122 mm[Hg] Comments: Patient Position: Sitting; Cuff Location: Left Arm; Cuff Size: Standard BP Diastolic 80 mm[Hg] Comments: Patient Position: Sitting; Cuff Location: Left Arm; Cuff Size: Standard Weight 168 lb Height 64 in Body Mass Index Calculated 28.84 kg/m2 Body Surface Area Calculated 1.82 m2 :35 Temperature 97.7 f Comments: Method: Temporal Pulse 77 /min Comments: Pattern: Regular Respiration Rate 18 /min Comments: Pattern: Unlabored O2 SAT 98 % Comments: Room air BP Systolic 130 mm[Hg] Comments: Patient Position: Sitting; Cuff Location: Left Arm; Cuff Size: Standard BP Diastolic 80 mm[Hg] Comments: Patient Position: Sitting; Cuff Location: Left Arm; Cuff Size: Standard Weight 161 lb Height 64 in Body Mass Index Calculated 27.64 kg/m2 Body Surface Area Calculated 1.78 m2 :33 Temperature 97.6 f Comments: Method: Temporal Pulse 84 /min Comments: Pattern: Regular Respiration Rate 16 /min Comments: Pattern: Unlabored O2 SAT 96 % Comments: Room air BP Systolic 132 mm[Hg] Comments: Patient Position: Sitting; Cuff Location: Left Arm; Cuff Size: Standard BP Diastolic 78 mm[Hg] Comments: Patient Position: Sitting; Cuff Location: Left Arm; Cuff Size: Standard Weight 153.1 lb Height 64 in Body Mass Index Calculated 26.28 kg/m2 Body Surface Area Calculated 1.75 m2 :01 Temperature 98.5 f Comments: Method: Temporal Pulse 92 /min Comments: Pattern: Regular Respiration Rate 18 /min Comments: Pattern: Unlabored O2 SAT 98 % Comments: Room air BP Systolic 142 mm[Hg] Comments: Patient Position: Sitting; Cuff Location: Left Arm; Cuff Size: Standard BP Diastolic 80 mm[Hg] Comments: Patient Position: Sitting; Cuff Location: Left Arm; Cuff Size: Standard Weight 146 lb Height 64 in Body Mass Index Calculated 25.06 kg/m2 Body Surface Area Calculated 1.71 m2 :33 Weight 137.25 lb Height 64 in Body Mass Index Calculated 23.56 kg/m2 Body Surface Area Calculated 1.67 m2 :10 Temperature 97.6 f Comments: Method: Oral Pulse 104 /min Comments: Pattern: Regular Respiration Rate 20 /min Comments: Pattern: Unlabored O2 SAT 97 % Comments: Room air BP Systolic 140 mm[Hg] Comments: Patient Position: Sitting; Cuff Location: Left Arm; Cuff Size: Standard BP Diastolic 70 mm[Hg] Comments: Patient Position: Sitting; Cuff Location: Left Arm; Cuff Size: Standard Weight 137.25 lb Height 64 in Body Mass Index Calculated 23.56 kg/m2 Body Surface Area Calculated 1.67 m2 :15 Pulse 76 /min Comments: Pattern: Regular Respiration Rate 16 /min Comments: Pattern: Unlabored O2 SAT 98 % Comments: Room air BP Systolic 115 mm[Hg] Comments: Patient Position: Sitting; Cuff Location: Left Arm; Cuff Size: Standard BP Diastolic 62 mm[Hg] Comments: Patient Position: Sitting; Cuff Location: Left Arm; Cuff Size: Standard Weight 142 lb Height 64 in Body Mass Index Calculated 24.37 kg/m2 Body Surface Area Calculated 1.69 m2 :03 Temperature 98.5 f Comments: Method: Temporal Pulse 96 /min Comments: Pattern: Regular Respiration Rate 16 /min Comments: Pattern: Unlabored O2 SAT 98 % Comments: Room air BP Systolic 120 mm[Hg] Comments: Patient Position: Sitting; Cuff Location: Left Arm; Cuff Size: Standard BP Diastolic 70 mm[Hg] Comments: Patient Position: Sitting; Cuff Location: Left Arm; Cuff Size: Standard Weight 144 lb Height 64 in Body Mass Index Calculated 24.72 kg/m2 Body Surface Area Calculated 1.7 m2 :56 Temperature 97.6 f Comments: Method: Oral Pulse 76 /min Comments: Pattern: Regular Respiration Rate 20 /min Comments: Pattern: Unlabored BP Systolic 120 mm[Hg] Comments: Patient Position: Sitting; Cuff Location: Left Arm; Cuff Size: Standard BP Diastolic 78 mm[Hg] Comments: Patient Position: Sitting; Cuff Location: Left Arm; Cuff Size: Standard Weight 144 lb Height 64 in Body Mass Index Calculated 24.72 kg/m2 Body Surface Area Calculated 1.7 m2 :59 Temperature 98.7 f Comments: Method: Oral Pulse 86 /min Comments: Pattern: Regular Respiration Rate 20 /min Comments: Pattern: Unlabored O2 SAT 97 % Comments: Room air BP Systolic 160 mm[Hg] Comments: Patient Position: Sitting; Cuff Location: Left Arm; Cuff Size: Standard BP Diastolic 90 mm[Hg] Comments: Patient Position: Sitting; Cuff Location: Left Arm; Cuff Size: Standard Weight 142 lb Height 64 in Body Mass Index Calculated 24.37 kg/m2 Body Surface Area Calculated 1.69 m2 :20 Temperature 97.9 f Comments: Method: Oral Pulse 74 /min Comments: Pattern: Regular Respiration Rate 18 /min Comments: Pattern: Unlabored BP Systolic 118 mm[Hg] Comments: Patient Position: Sitting; Cuff Location: Left Arm; Cuff Size: Standard BP Diastolic 78 mm[Hg] Comments: Patient Position: Sitting; Cuff Location: Left Arm; Cuff Size: Standard Weight 142 lb Height 64 in Body Mass Index Calculated 24.37 kg/m2 Body Surface Area Calculated 1.69 m2 :59 Temperature 97.9 f Comments: Method: Oral Pulse 82 /min Comments: Pattern: Regular Respiration Rate 20 /min Comments: Pattern: Unlabored BP Systolic 114 mm[Hg] Comments: Patient Position: Sitting; Cuff Location: Left Arm; Cuff Size: Standard BP Diastolic 78 mm[Hg] Comments: Patient Position: Sitting; Cuff Location: Left Arm; Cuff Size: Standard Weight 142 lb Height 64 in Body Mass Index Calculated 24.37 kg/m2 Body Surface Area Calculated 1.69 m2 :01 Temperature 97.6 f Comments: Method: Oral Pulse 76 /min Comments: Pattern: Regular Respiration Rate 16 /min Comments: Pattern: Unlabored BP Systolic 130 mm[Hg] Comments: Patient Position: Sitting; Cuff Location: Left Arm; Cuff Size: Standard BP Diastolic 76 mm[Hg] Comments: Patient Position: Sitting; Cuff Location: Left Arm; Cuff Size: Standard Weight 149.5625 lb Height 64 in Body Mass Index Calculated 25.67 kg/m2 Body Surface Area Calculated 1.73 m2 :53 Temperature 98.1 f Comments: Method: Oral Pulse 72 /min Comments: Pattern: Regular Respiration Rate 16 /min Comments: Pattern: Unlabored BP Systolic 112 mm[Hg] Comments: Patient Position: Sitting; Cuff Location: Left Arm; Cuff Size: Standard BP Diastolic 60 mm[Hg] Comments: Patient Position: Sitting; Cuff Location: Left Arm; Cuff Size: Standard Weight 149.5625 lb Height 64 in Body Mass Index Calculated 25.67 kg/m2 Body Surface Area Calculated 1.73 m2 :42 Temperature 98.6 f Comments: Method: Oral Pulse 84 /min Comments: Pattern: Regular Respiration Rate 16 /min Comments: Pattern: Unlabored BP Systolic 142 mm[Hg] Comments: Patient Position: Sitting; Cuff Location: Left Arm; Cuff Size: Standard BP Diastolic 74 mm[Hg] Comments: Patient Position: Sitting; Cuff Location: Left Arm; Cuff Size: Standard Weight 148.5625 lb Height 64 in Body Mass Index Calculated 25.5 kg/m2 Body Surface Area Calculated 1.72 m2 :03 Temperature 97.8 f Comments: Method: Oral Pulse 70 /min Comments: Pattern: Regular Respiration Rate 20 /min Comments: Pattern: Unlabored BP Systolic 114 mm[Hg] Comments: Patient Position: Sitting; Cuff Location: Left Arm; Cuff Size: Standard BP Diastolic 74 mm[Hg] Comments: Patient Position: Sitting; Cuff Location: Left Arm; Cuff Size: Standard Weight 145 lb Height 64 in Body Mass Index Calculated 24.89 kg/m2 Body Surface Area Calculated 1.71 m2 :53 Temperature 98 f Comments: Method: Oral Pulse 88 /min Comments: Pattern: Regular Respiration Rate 18 /min Comments: Pattern: Unlabored O2 SAT 97 % Comments: Room air BP Systolic 110 mm[Hg] Comments: Patient Position: Sitting; Cuff Location: Left Arm; Cuff Size: Standard BP Diastolic 74 mm[Hg] Comments: Patient Position: Sitting; Cuff Location: Left Arm; Cuff Size: Standard Weight 143 lb Height 64 in Body Mass Index Calculated 24.55 kg/m2 Body Surface Area Calculated 1.7 m2 :14 Temperature 97.8 f Comments: Method: Oral Pulse 72 /min Comments: Pattern: Regular Respiration Rate 20 /min Comments: Pattern: Unlabored BP Systolic 114 mm[Hg] Comments: Patient Position: Sitting; Cuff Location: Left Arm; Cuff Size: Standard BP Diastolic 72 mm[Hg] Comments: Patient Position: Sitting; Cuff Location: Left Arm; Cuff Size: Standard Weight 143 lb Height 64 in Body Mass Index Calculated 24.55 kg/m2 Body Surface Area Calculated 1.7 m2 :30 Temperature 97.9 f Comments: Method: Oral Pulse 70 /min Comments: Pattern: Regular Respiration Rate 18 /min Comments: Pattern: Unlabored BP Systolic 122 mm[Hg] Comments: Patient Position: Sitting; Cuff Location: Left Arm; Cuff Size: Standard BP Diastolic 76 mm[Hg] Comments: Patient Position: Sitting; Cuff Location: Left Arm; Cuff Size: Standard Weight 144 lb Height 64 in Body Mass Index Calculated 24.72 kg/m2 Body Surface Area Calculated 1.7 m2 :26 Temperature 97.9 f Comments: Method: Oral Pulse 68 /min Comments: Pattern: Regular Respiration Rate 18 /min Comments: Pattern: Unlabored BP Systolic 130 mm[Hg] Comments: Patient Position: Sitting; Cuff Location: Left Arm; Cuff Size: Standard BP Diastolic 78 mm[Hg] Comments: Patient Position: Sitting; Cuff Location: Left Arm; Cuff Size: Standard Weight 148 lb Height 64 in Body Mass Index Calculated 25.4 kg/m2 Body Surface Area Calculated 1.72 m2 :26 Temperature 97.6 f Comments: Method: Oral Pulse 76 /min Comments: Pattern: Regular Respiration Rate 20 /min Comments: Pattern: Unlabored BP Systolic 116 mm[Hg] Comments: Patient Position: Sitting; Cuff Location: Left Arm; Cuff Size: Standard BP Diastolic 74 mm[Hg] Comments: Patient Position: Sitting; Cuff Location: Left Arm; Cuff Size: Standard Weight 144 lb Height 64 in Body Mass Index Calculated 24.72 kg/m2 Body Surface Area Calculated 1.7 m2 :22 Temperature 97.6 f Comments: Method: Oral Pulse 72 /min Comments: Pattern: Regular Respiration Rate 18 /min Comments: Pattern: Unlabored BP Systolic 130 mm[Hg] Comments: Patient Position: Sitting; Cuff Location: Left Arm; Cuff Size: Standard BP Diastolic 78 mm[Hg] Comments: Patient Position: Sitting; Cuff Location: Left Arm; Cuff Size: Standard Weight 142 lb Height 64 in Body Mass Index Calculated 24.37 kg/m2 Body Surface Area Calculated 1.69 m2 :43 Temperature 98.1 f Comments: Method: Oral Pulse 68 /min Comments: Pattern: Regular Respiration Rate 18 /min Comments: Pattern: Unlabored BP Systolic 120 mm[Hg] Comments: Patient Position: Sitting; Cuff Location: Left Arm; Cuff Size: Standard BP Diastolic 72 mm[Hg] Comments: Patient Position: Sitting; Cuff Location: Left Arm; Cuff Size: Standard Weight 138 lb :28 Temperature 97.6 f Comments: Method: Oral Pulse 70 /min Comments: Pattern: Regular Respiration Rate 18 /min Comments: Pattern: Unlabored BP Systolic 116 mm[Hg] Comments: Patient Position: Sitting; Cuff Location: Left Arm; Cuff Size: Standard BP Diastolic 76 mm[Hg] Comments: Patient Position: Sitting; Cuff Location: Left Arm; Cuff Size: Standard Weight 139 lb :24 Pulse 74 /min Comments: Pattern: Regular Respiration Rate 18 /min Comments: Pattern: Unlabored BP Systolic 118 mm[Hg] Comments: Patient Position: Sitting; Cuff Location: Left Arm; Cuff Size: Standard BP Diastolic 78 mm[Hg] Comments: Patient Position: Sitting; Cuff Location: Left Arm; Cuff Size: Standard Weight 139.05 lb :59 Pulse 70 /min Comments: Pattern: Regular Respiration Rate 16 /min Comments: Pattern: Unlabored BP Systolic 120 mm[Hg] Comments: Patient Position: Sitting; Cuff Location: Left Arm; Cuff Size: Standard BP Diastolic 80 mm[Hg] Comments: Patient Position: Sitting; Cuff Location: Left Arm; Cuff Size: Standard Weight 140 lb Height 0 in Head Circumference 0.00 cm :17 Pulse 74 /min Comments: Pattern: Regular Respiration Rate 18 /min Comments: Pattern: Unlabored BP Systolic 118 mm[Hg] Comments: Patient Position: Sitting; Cuff Location: Left Arm; Cuff Size: Standard BP Diastolic 74 mm[Hg] Comments: Patient Position: Sitting; Cuff Location: Left Arm; Cuff Size: Standard Weight 144.0375 lb Height 0 in Head Circumference 0.00 cm :45 Pulse 68 /min Comments: Pattern: Regular Respiration Rate 16 /min Comments: Pattern: Unlabored BP Systolic 120 mm[Hg] Comments: Patient Position: Sitting; Cuff Location: Left Arm; Cuff Size: Standard BP Diastolic 80 mm[Hg] Comments: Patient Position: Sitting; Cuff Location: Left Arm; Cuff Size: Standard Weight 153.0188 lb Height 0 in Head Circumference 0.00 cm :53 Pulse 70 /min Comments: Pattern: Regular Respiration Rate 16 /min Comments: Pattern: Unlabored BP Systolic 130 mm[Hg] Comments: Patient Position: Sitting; Cuff Location: Left Arm; Cuff Size: Standard BP Diastolic 84 mm[Hg] Comments: Patient Position: Sitting; Cuff Location: Left Arm; Cuff Size: Standard Weight 153 lb Height 0 in Head Circumference 0.00 cm :04 Pulse 76 /min Comments: Pattern: Regular Respiration Rate 16 /min Comments: Pattern: Unlabored BP Systolic 136 mm[Hg] Comments: Patient Position: Sitting; Cuff Location: Left Arm; Cuff Size: Standard BP Diastolic 80 mm[Hg] Comments: Patient Position: Sitting; Cuff Location: Left Arm; Cuff Size: Standard Weight 153 lb Height 0 in Head Circumference 0.00 cm :54 Temperature 98.2 f Comments: Method: Oral Pulse 68 /min Comments: Pattern: Regular Respiration Rate 16 /min Comments: Pattern: Unlabored BP Systolic 120 mm[Hg] Comments: Patient Position: Sitting; Cuff Location: Left Arm; Cuff Size: Standard BP Diastolic 80 mm[Hg] Comments: Patient Position: Sitting; Cuff Location: Left Arm; Cuff Size: Standard Weight 149 lb Height 0 in Head Circumference 0.00 cm :35 Temperature 98.2 f Comments: Method: Oral Pulse 70 /min Comments: Pattern: Regular Respiration Rate 16 /min Comments: Pattern: Unlabored BP Systolic 120 mm[Hg] Comments: Patient Position: Sitting; Cuff Location: Left Arm; Cuff Size: Standard BP Diastolic 80 mm[Hg] Comments: Patient Position: Sitting; Cuff Location: Left Arm; Cuff Size: Standard Weight 149.025 lb Height 0 in Head Circumference 0.00 cm :23 Temperature 98.2 f Comments: Method: Oral Pulse 70 /min Comments: Pattern: Regular Respiration Rate 18 /min Comments: Pattern: Unlabored BP Systolic 122 mm[Hg] Comments: Patient Position: Sitting; Cuff Location: Left Arm; Cuff Size: Standard BP Diastolic 78 mm[Hg] Comments: Patient Position: Sitting; Cuff Location: Left Arm; Cuff Size: Standard Weight 152 lb Height 0 in Head Circumference 0.00 cm :41 Temperature 98.6 f Comments: Method: Oral Pulse 76 /min Comments: Pattern: Regular Respiration Rate 18 /min Comments: Pattern: Unlabored BP Systolic 122 mm[Hg] Comments: Patient Position: Sitting; Cuff Location: Left Arm; Cuff Size: Standard BP Diastolic 82 mm[Hg] Comments: Patient Position: Sitting; Cuff Location: Left Arm; Cuff Size: Standard Weight 0 lb Height 0 in Head Circumference 0.00 cm :03 Temperature 98.2 f Comments: Method: Oral Pulse 80 /min Comments: Pattern: Regular Respiration Rate 18 /min Comments: Pattern: Unlabored BP Systolic 144 mm[Hg] Comments: Patient Position: Sitting; Cuff Location: Left Arm; Cuff Size: Standard BP Diastolic 84 mm[Hg] Comments: Patient Position: Sitting; Cuff Location: Left Arm; Cuff Size: Standard Weight 0 lb Height 0 in Head Circumference 0.00 cm :56 Temperature 97.6 f Comments: Method: Oral Pulse 74 /min Comments: Pattern: Regular Respiration Rate 18 /min Comments: Pattern: Unlabored BP Systolic 124 mm[Hg] Comments: Patient Position: Sitting; Cuff Location: Left Arm; Cuff Size: Standard BP Diastolic 78 mm[Hg] Comments: Patient Position: Sitting; Cuff Location: Left Arm; Cuff Size: Standard Weight 0 lb Height 0 in Head Circumference 0.00 cm :40 Temperature 97.8 f Comments: Method: Oral Pulse 74 /min Comments: Pattern: Regular Respiration Rate 20 /min Comments: Pattern: Unlabored BP Systolic 124 mm[Hg] Comments: Patient Position: Sitting; Cuff Location: Left Arm; Cuff Size: Standard BP Diastolic 80 mm[Hg] Comments: Patient Position: Sitting; Cuff Location: Left Arm; Cuff Size: Standard Weight 143 lb Height 0 in Head Circumference 0.00 cm :12 Temperature 97.6 f Comments: Method: Oral Pulse 70 /min Comments: Pattern: Regular Respiration Rate 20 /min Comments: Pattern: Unlabored BP Systolic 140 mm[Hg] Comments: Patient Position: Sitting; Cuff Location: Left Arm; Cuff Size: Standard BP Diastolic 80 mm[Hg] Comments: Patient Position: Sitting; Cuff Location: Left Arm; Cuff Size: Standard Weight 143 lb Height 0 in Head Circumference 0.00 cm :17 Temperature 97.6 f Comments: Method: Oral Pulse 72 /min Comments: Pattern: Regular Respiration Rate 20 /min Comments: Pattern: Unlabored BP Systolic 118 mm[Hg] Comments: Patient Position: Sitting; Cuff Location: Left Arm; Cuff Size: Standard BP Diastolic 76 mm[Hg] Comments: Patient Position: Sitting; Cuff Location: Left Arm; Cuff Size: Standard Weight 143 lb Height 0 in Head Circumference 0.00 cm :44 Temperature 97.7 f Comments: Method: Oral Pulse 71 /min Comments: Pattern: Regular Respiration Rate 16 /min Comments: Pattern: Undefined BP Systolic 118 mm[Hg] Comments: Patient Position: Sitting; Cuff Location: Undefined; Cuff Size: Undefined BP Diastolic 74 mm[Hg] Comments: Patient Position: Sitting; Cuff Location: Undefined; Cuff Size: Undefined Weight 147 lb Height 0 in Head Circumference 0.00 cm :42 Temperature 98.1 f Comments: Method: Oral Pulse 71 /min Comments: Pattern: Regular Respiration Rate 15 /min Comments: Pattern: Undefined BP Systolic 122 mm[Hg] Comments: Patient Position: Sitting; Cuff Location: Left Arm; Cuff Size: Standard BP Diastolic 72 mm[Hg] Comments: Patient Position: Sitting; Cuff Location: Left Arm; Cuff Size: Standard Weight 148.0625 lb Height 0 in Head Circumference 0.00 cm Results Date Description Value Details :01 CALCIFIDIOL (29645) VIT D 25 Comments: PATIENT NOT FASTINGPERFORMED BY: [email or web address] [facility] [id number] Vitamin D, 25-Hydroxy 31.1 ng/mL (Normal) Range: 30.0-100.0 Comments: Vitamin D deficiency has been defined by the [place] of[employer] and an Endocrine Society practice guideline as alevel of serum 25-OH vitamin D less than 20 ng/mL (1,2).The Endocrine Society went on to further define vitamin Dinsufficiency as a level between 21 and 29 ng/mL (2).1. IOM ([place] of [employer]). 2010. Dietary reference intakes for calcium and D. [place]: The National Academies Press.2. Kayleen MF, Rohit NC, Roxanna BUENO, et al. Evaluation, treatment, and prevention of vitamin D deficiency: an Endocrine Society clinical practice guideline. JCEM. 2010; 96(7):1911-30. [id number] Metabolic Panel, Comprehensive Comments: PATIENT NOT FASTINGPERFORMED BY: CastleOS [email or web address] [facility] [id number] ([id number]) ALT (SGPT) 15 [iU]/L (Normal) Range: 0-32 AST (SGOT) 21 [iU]/L (Normal) Range: 0-40 Alkaline Phosphatase 77 [iU]/L (Normal) Range: 39-117 Bilirubin, Total 0.5 mg/dL (Normal) Range: 0.0-1.2 A/G Ratio 1.7 (Normal) Range: 1.2-2.2 Globulin, Total 2.6 g/dL (Normal) Range: 1.5-4.5 Albumin 4.4 g/dL (Normal) Range: 3.5-4.8 Protein, Total 7.0 g/dL (Normal) Range: 6.0-8.5 Calcium 9.2 mg/dL (Normal) Range: 8.7-10.3 Carbon Dioxide, Total 24 mmol/L (Normal) Range: 20-29 Chloride 104 mmol/L (Normal) Range: 96-106 Potassium 4.4 mmol/L (Normal) Range: 3.5-5.2 Sodium 140 mmol/L (Normal) Range: 134-144 BUN/Creatinine Ratio 13 (Normal) Range: 12-28 eGFR If Africn Am 57 mL/min/1.73 (Abnormal) eGFR If NonAfricn Am 50 mL/min/1.73 (Abnormal) Creatinine 1.08 mg/dL (Abnormal) Range: 0.57-1.00 BUN 14 mg/dL (Normal) Range: 8-27 Glucose 110 mg/dL (Abnormal) Range: 65-99 [id number] Ferritin ([id number]) Comments: PATIENT NOT FASTINGPERFORMED BY: [facility]reobotNew [facility] Medical CenterReieos7831 [facility] [id number] Ferritin, Serum 15 ng/mL (Normal) Range: 15-150 [id number] CBC (Auto) ([id number]) Comments: PATIENT NOT FASTINGPERFORMED BY: LabCoNew [facility] Medical CenterPzzsrq8899 [facility] [id number] Platelets 354 {x10E3/uL} (Normal) Range: 150-379 RDW 17.2 % (Abnormal) Range: 12.3-15.4 MCHC 31.7 g/dL (Normal) Range: 31.5-35.7 MCH 24.5 pg (Abnormal) Range: 26.6-33.0 MCV 77 fL (Abnormal) Range: 79-97 Hematocrit 32.5 % (Abnormal) Range: 34.0-46.6 Hemoglobin 10.3 g/dL (Abnormal) Range: 11.1-15.9 RBC 4.20 {x10E6/uL} (Normal) Range: 3.77-5.28 WBC 8.0 {x10E3/uL} (Normal) Range: 3.4-10.8 [id number] HgA1C , Office ([id number]) HgA1C , Office 6.4 % (Normal) Range: 4.6 - 7.1 [id number] CBC, Platelets & Auto Diff Comments: PATIENT NOT FASTINGPERFORMED BY: LabCoNew [facility] CenterKksuiu3158 [facility] [id number] ([id number]) Immature Grans (Abs) 0.0 {x10E3/uL} (Normal) Range: 0.0-0.1 Immature Granulocytes 0 % (Normal) Baso (Absolute) 0.0 {x10E3/uL} (Normal) Range: 0.0-0.2 Eos (Absolute) 0.2 {x10E3/uL} (Normal) Range: 0.0-0.4 Monocytes(Absolute) 0.8 {x10E3/uL} (Normal) Range: 0.1-0.9 Lymphs (Absolute) 2.0 {x10E3/uL} (Normal) Range: 0.7-3.1 Neutrophils (Absolute) 5.6 {x10E3/uL} (Normal) Range: 1.4-7.0 Basos 1 % (Normal) Eos 3 % (Normal) Monocytes 9 % (Normal) Lymphs 23 % (Normal) Neutrophils 64 % (Normal) Platelets 349 {x10E3/uL} (Normal) Range: 150-379 RDW 17.7 % (Abnormal) Range: 12.3-15.4 MCHC 31.4 g/dL (Abnormal) Range: 31.5-35.7 MCH 25.7 pg (Abnormal) Range: 26.6-33.0 MCV 82 fL (Normal) Range: 79-97 Hematocrit 32.5 % (Abnormal) Range: 34.0-46.6 Hemoglobin 10.2 g/dL (Abnormal) Range: 11.1-15.9 RBC 3.97 {x10E6/uL} (Normal) Range: 3.77-5.28 WBC 8.7 {x10E3/uL} (Normal) Range: 3.4-10.8 [id number] Ferritin ([id number]) Comments: PATIENT NOT FASTINGPERFORMED BY: [facility]CoNew [facility] [id number] [facility] [id number] Ferritin, Serum 12 ng/mL (Abnormal) Range: 15-150 [id number] Metabolic Panel, Basic Comments: PATIENT NOT FASTINGPERFORMED BY: LabCoNew [facility] CenterVhkbil1246 [facility] [id number] ([id number]) Calcium 9.0 mg/dL (Normal) Range: 8.7-10.3 Carbon Dioxide, Total 27 mmol/L (Normal) Range: 18-29 Chloride 100 mmol/L (Normal) Range: 96-106 Potassium 4.6 mmol/L (Normal) Range: 3.5-5.2 Sodium 142 mmol/L (Normal) Range: 134-144 BUN/Creatinine Ratio 13 (Normal) Range: 12-28 eGFR If Africn Am 61 mL/min/1.73 (Normal) eGFR If NonAfricn Am 53 mL/min/1.73 (Abnormal) Creatinine 1.02 mg/dL (Abnormal) Range: 0.57-1.00 BUN 13 mg/dL (Normal) Range: 8-27 Glucose 123 mg/dL (Abnormal) Range: 65-99 0-Sic-707527:23 CBC W/Diff, Automated Comments: Order Date: 06/24/17Order Info: [id number] - CBCDOrder Info: [id number] - [facility] [address] [place], [address] Absolute Lymph 1.48 {X10_3/ul} (Normal) Range: 0.83-4.51 Absolute Neut 7.5 {X10_3/uL} (Normal) Range: 2.0-7.7 IM GRAN % 0.700 % (Normal) Range: 0.0-0.9 Comments: IG% - Immature Granulocytes (promyelocytes, myelocytes andmetamyelocytes) > 1% indicates that a LEFT SHIFT is Present. BASO% 0.3 % (Normal) Range: 0-1 EO% 1.6 % (Normal) Range: 0-5 MONO% 8.1 % (Normal) Range: 0-10 LY% 14.8 % (Abnormal) Range: 19-41 NEUT% 74.5 % (Abnormal) Range: 47-70 MPV 9.3 fL (Normal) Range: 6.2-12.0 PLT 357 K/mm3 (Normal) Range: 150-450 RDW SD 47.2 fL (Abnormal) Range: 35.1-43.9 RDW CV 16.5 % (Abnormal) Range: 11.6-14.6 MCHC 29.4 {g/gl} (Abnormal) Range: 32-36 MCH 23.8 pg (Abnormal) Range: 27.0-32.0 MCV 81.2 fL (Normal) Range: 81-99 HCT 31.0 % (Abnormal) Range: 37-47 HGB 9.1 g/dL (Abnormal) Range: 12.0-15.0 RBC 3.82 {M/mm3} (Abnormal) Range: 4.2-5.4 WBC 10.0 K/mm3 (Normal) Range: 4.4-11.0 1-Qkq-874061:23 Comprehensive Metabolic Profil Comments: Order Date: 06/24/17Order Info: [id number] - CMPOrder Info: [id number] - AMYComments: stat all labs.Order Info: 3040-3 - [facility] [address] [place], [place], [address] GAP 7 (Normal) Range: 5-15 CO2 29.0 mmol/L (Normal) Range: 21.0-32.0 CL 105 mmol/L (Normal) Range: 98-107 K 4.6 mmol/L (Normal) Range: 3.5-5.1 NA 141 mmol/L (Normal) Range: 136-145 T BILI 0.50 mg/dL (Normal) Range: 0.20-1.00 ALT 17 U/L (Normal) Range: 13-56 Comments: Please note revised ALT reference range cyzgbxjce91/28/2018. ALK P 71 U/L (Normal) Range: 45-117 AST 17 U/L (Normal) Range: 15-37 CA 7.7 mg/dL (Abnormal) Range: 8.5-10.1 A/G 1.1 {RATIO} (Normal) Range: 0.9-2.4 GLOB 2.8 g/dL (Normal) Range: 2.2-4.2 ALB 3.1 g/dL (Abnormal) Range: 3.2-5.0 T PROT 5.9 g/dL (Abnormal) Range: 6.4-8.2 BUN/CRE 18.1 {RATIO} (Normal) Range: 10-20 EST GFR - AA 70 mL/min (Normal) Comments: GFR Calc EST GFR 58 mL/min (Abnormal) Comments: Non- GFR Calc CREAT,SERUM 0.99 mg/dL (Normal) Range: 0.55-1.02 Comments: The validity of the calculated GFR AND GFRAA in patients over70 years has not been determined. Clinical correlation isessential. BUN 18 mg/dL (Normal) Range: 7-18 GLU 113 mg/dL (Abnormal) Range: 74-106 Comments: Fasting Glucose result from 100 to 125 mg/dLsuggests IMPAIRED HOMEOSTASIS per A.D.A. criteria.Please note revised GLUCOSE reference range blbxbseaz91/02/2018. 8-Mwd-906517:23 Erythrocyte Sed Rate Comments: Order Date: 06/24/17Order Info: [id number] - CBCDOrder Info: [id number] - [facility] [address]vrg[address] [place], [place], [address] SED RATE 13 mm/h (Normal) Range: 0-30 4-Nmz-647265:23 Amylase (35746) Comments: stat all labs.; Order Date: 06/24/17Order Info: [id number] - CMPOrder Info: [id number] - AMYComments: stat all labs.Order Info: 3040-3 - [facility] [address]ggeum[address] [place], [address] SELENE 35 U/L (Normal) Range: 25-115 6-Hgk-521494:23 Lipase (03753) Comments: Order Date: 06/24/17Order Info: 0786- [id number] - CMPOrder Info: [id number] - AMYComments: stat all labs.Order Info: 3040-3 - [facility] X[address]fcdnibo[address] [place], [address] LIPASE 151 U/L (Normal) Range: 73-393 :52 FLU A+B DIRECT AG, (RAPID) (30971) FLU A+B DIRECT AG, (RAPID) negative (Normal) 22-Jrx-807869:32 Basic Metabolic Profile (BMP) Comments: 'TROP' Serial specimen #1, #2, #3, or #4: 1WK[facility] [address]mprmaoqdg[address] [place], [place], [address] GAP 9 (Normal) Range: 5-15 CO2 28.0 mmol/L (Normal) Range: 21.0-32.0 CL 102 mmol/L (Normal) Range: 98-107 K 4.0 mmol/L (Normal) Range: 3.5-5.1 NA 139 mmol/L (Normal) Range: 136-145 CA 8.3 mg/dL (Abnormal) Range: 8.5-10.1 BUN/CRE 15.1 {RATIO} (Normal) Range: 10-20 Estimated CRCL 34.18 ml/min (Normal) EST GFR - AA 53 mL/min (Abnormal) Comments: GFR Calc EST GFR 44 mL/min (Abnormal) Comments: Non- GFR Calc CREAT,SERUM 1.26 mg/dL (Abnormal) Range: 0.55-1.02 Comments: The validity of the calculated GFR AND GFRAA in patients over70 years has not been determined. Clinical correlation isessential. BUN 19 mg/dL (Abnormal) Range: 7-18 GLU 102 mg/dL (Normal) Range: 74-106 Comments: Fasting Glucose result from 100 to 125 mg/dLsuggests IMPAIRED HOMEOSTASIS per A.D.A. criteria.Please note revised GLUCOSE reference range osckxrqws77/02/2018. 61-Iod-801111:32 CBC W/Diff, Automated Comments: [facility] [address] [place], [place], [address] Absolute Lymph 3.33 {X10_3/ul} (Normal) Range: 0.83-4.51 Absolute Neut 7.6 {X10_3/uL} (Normal) Range: 2.0-7.7 IM GRAN % 0.300 % (Normal) Range: 0.0-0.9 Comments: IG% - Immature Granulocytes (promyelocytes, myelocytes andmetamyelocytes) > 1% indicates that a LEFT SHIFT is Present. BASO% 0.3 % (Normal) Range: 0-1 EO% 2.8 % (Normal) Range: 0-5 MONO% 8.2 % (Normal) Range: 0-10 LY% 26.9 % (Normal) Range: 19-41 NEUT% 61.5 % (Normal) Range: 47-70 MPV 8.6 fL (Normal) Range: 6.2-12.0 PLT 336 K/mm3 (Normal) Range: 150-450 RDW SD 47.8 fL (Abnormal) Range: 35.1-43.9 RDW CV 16.4 % (Abnormal) Range: 11.6-14.6 MCHC 30.0 {g/gl} (Abnormal) Range: 32-36 MCH 24.0 pg (Abnormal) Range: 27.0-32.0 MCV 80.1 fL (Abnormal) Range: 81-99 HCT 32.7 % (Abnormal) Range: 37-47 HGB 9.8 g/dL (Abnormal) Range: 12.0-15.0 RBC 4.08 {M/mm3} (Abnormal) Range: 4.2-5.4 WBC 12.4 K/mm3 (Abnormal) Range: 4.4-11.0 80-Ynr-298926:32 Troponin-I Comments: 'TROP' Serial specimen #1, #2, #3, or #4: [address] [place] [address] [address] [place], [place], [address] TROPONIN-I < 0.02 ng/mL (Normal) Comments: TROPONIN-I EXPECTED VALUES <0.05 NEGATIVE 0.06 - 0.59 AT RISK OF NC > OR = 0.60 SUGGEST NC 76-Mpk-989352:05 C1 Esterase Inhibitor, Comments: PATIENT NOT FASTINGPERFORMED BY: [facility] Jzqgmghaon5881 [facility] [id number] BY: [facility] Vaegcc2796 [facility] [id number] [facility] C1 Est.Inhib.Funct. 107 {%mean_normal} Comments: Abnormal <41 Equivocal 41 - 67 Normal >67 (Normal) 09-Jun-19 Thyroid Peroxidase (TPO) 7 {IU/mL} (Normal) Comments: PATIENT NOT FASTINGPERFORMED BY: [address] [id number] BY: LabVibeWrite Elnqmt1767 Brown RoadDublin [place] [id number] 1814:05 Ab Range: 0-34 32-Krt-726879:05 COMPLEMENT C1Q (69232) Comments: coming out complement NEED N7OSBVOPJW INHIBITOR; PATIENT NOT FASTINGPERFORMED BY: [address] [id number] BY: StereobotChristian Ville 9677070 Brown RoadDublin [place] [id number] C1 Esterase Inhibitor, Serum 47 mg/dL (Abnormal) Range: 21-39 Comments: Results verified by repeat testing :05 CBC (Auto) (68589) Comments: PATIENT NOT FASTINGPERFORMED BY: [address] [id number] BY: [employer] Zcnkhf5760 [address] [facility] HospitalDublin [place] [id number] Platelets 358 {x10E3/uL} (Normal) Range: 150-379 RDW 16.2 % (Abnormal) Range: 12.3-15.4 MCHC 31.2 g/dL (Abnormal) Range: 31.5-35.7 MCH 24.2 pg (Abnormal) Range: 26.6-33.0 MCV 78 fL (Abnormal) Range: 79-97 Hematocrit 32.4 % (Abnormal) Range: 34.0-46.6 Hemoglobin 10.1 g/dL (Abnormal) Range: 11.1-15.9 RBC 4.18 {x10E6/uL} (Normal) Range: 3.77-5.28 WBC 9.7 {x10E3/uL} (Normal) Range: 3.4-10.8 37-Aua-347011:05 Vitamin B-12 Comments: PATIENT NOT FASTINGPERFORMED BY: [address] [id number] BY: [employer] Srcjlr6082 Brown RoadDublin [place] [id number] (cyanocobalamin) (56086) Vitamin B12 667 pg/mL (Normal) Range: 232-1245 93-Sfy-600098:05 Iron Binding Capacity Comments: PATIENT NOT FASTINGPERFORMED BY: Stereobot[address] [id number] BY: [employer] Ewisez4373 [address] RoadDublin [place] [id number] (TIBC) (39824) Iron Saturation 7 % (Abnormal) Range: 15-55 Iron, Serum 30 ug/dL (Normal) Range: 27-139 UIBC 407 ug/dL (Abnormal) Range: 118-369 Iron Bind.Cap.(TIBC) 437 ug/dL (Normal) Range: 250-450 46-Keo-879253:05 Ferritin (00988) Comments: PATIENT NOT FASTINGPERFORMED BY: Stereobot[address] [id number] BY: [employer] Uswzxw3345 Brown RoadDublin [place] [id number] Ferritin, Serum 11 ng/mL (Abnormal) Range: 15-150 13-Myp-237227:05 GLORIA (ANTINUCLEAR ANTIBODY) Comments: all these labs to Dr. carvalho; PATIENT NOT FASTINGPERFORMED BY: Stereobot[address] [id number] BY: [employer] Eouoax9886 [address] RoadDublin [place] [id number] ([address]76) GLORIA Direct Negative (Normal) 81-Far-485738:05 ESR-F (SED RATE Comments: PATIENT NOT FASTINGPERFORMED BY: [facility] [id number] BY: [employer] Zwgmdj4875 Brown RoadDublin [place] [id number] ERYTHROCYTE - FEMALE) (57427) Sedimentation Rate-Westergren 25 mm/h (Normal) Range: 0-40 92-Afk-814185:05 ANCA-C (ANTI NEUTROPHIL Comments: PATIENT NOT FASTINGPERFORMED BY: [facility] [employer] [facility] [id number] BY: CastleOS Bbmndr6716 [facility] [id number] CYTOPLASMIC ANTIBODY) Atypical pANCA <1:20 {titer} Comments: The atypical pANCA pattern has been observed in a significantpercentage of patients with ulcerative colitis, primary sclerosingcholangitis and autoimmune hepatitis. (Normal) Perinuclear (P-ANCA) <1:20 {titer} Comments: The presence of positive fluorescence exhibiting P-ANCA or C-ANCApatterns alone is not specific for the diagnosis of Arlet'sGranulomatosis (WG) or microscopic polyangiitis. Decisions about treatment sh (Normal) ould not be based solely on ANCA IFA results. TheInternational ANCA Group Consensus recommends follow up testing ofpositive sera with both NJ-3 and MPO-ANCA enzyme immunoassays. Asmany as 5% serum samp les are positive only by EIA.Ref. AM J Clin Pathol 1999;111:507-513. Cytoplasmic (C-ANCA) <1:20 {titer} (Normal) Antiproteinase 3 (NJ-3) Abs <3.5 U/mL (Normal) Range: 0.0-3.5 Antimyeloperoxidase (MPO) Abs <9.0 U/mL (Normal) Range: 0.0-9.0 89-Pvt-191923:05 TSH (48614) Comments: PATIENT NOT FASTINGPERFORMED BY: [facility] [id number] BY: StereobotNew Bridge Medical CenterXrhvpx4363 [facility] [id number] TSH 3.920 {uIU/mL} (Normal) Range: 0.450-4.500 56-Faf-851465:03 HgA1C , Office (30486) HgA1C , Office 6.3 % (Normal) Range: 4.6 - 7.1 82-Wsb-784039:58 Platelet Count on Citrated Comments: PATIENT NOT FASTINGPERFORMED BY: [facility] Hospital6370 [facility] [id number] Bld Plt Count, Citrated Bld 295 {X10E3/uL} (Normal) Range: 150-379 76-Zuu-191712:58 PTT (Activated Partial Comments: PATIENT NOT FASTINGPERFORMED BY: [facility]Select [facility] Hospital6370 [facility] [id number] Thromboplastin Time) (42269) aPTT 26 {sec} (Normal) Range: 24-33 Comments: This test has not been validated for monitoring unfractionated heparintherapy. aPTT-based therapeutic ranges for unfractionated heparintherapy have not been established. For general guidelines onHeparin monitoring, refer to the [facility] Directory of Services. 66-Fwh-690919:58 PT (Prothrobim Time) (79551) Comments: PATIENT NOT FASTINGPERFORMED BY: [facility]6370 [facility] [id number] Prothrombin Time 11.1 {sec} (Normal) Range: 9.1-12.0 INR 1.1 (Normal) Range: 0.8-1.2 Comments: Reference interval is for non-anticoagulated patients. . Suggested INR therapeutic range for Vitamin K anta gonist therapy: Standard Dose (moderate intensity therapeutic range): 2.0 - 3.0 Higher intensity therapeutic range 2.5 - 3.5 82-Lsp-675505:24 Bedside Glucose Comments: [facility] LaboratoryPoint of Owxk[address] [place] [address] BEDSIDE GLU 195 mg/dL (Abnormal) Range: 70-110 Comments: MANAGEMENT OF PATIENT CARE PER NURSING PROTOCOL 2-Kxk-445242:34 CBC (Auto) (21831) Comments: PATIENT NOT FASTINGPERFORMED BY: [facility]6370 [facility] [id number] Platelets 294 {x10E3/uL} (Normal) Range: 150-379 RDW 15.3 % (Normal) Range: 12.3-15.4 MCHC 32.1 g/dL (Normal) Range: 31.5-35.7 MCH 26.7 pg (Normal) Range: 26.6-33.0 MCV 83 fL (Normal) Range: 79-97 Hematocrit 34.9 % (Normal) Range: 34.0-46.6 Hemoglobin 11.2 g/dL (Normal) Range: 11.1-15.9 RBC 4.19 {x10E6/uL} (Normal) Range: 3.77-5.28 WBC 7.4 {x10E3/uL} (Normal) Range: 3.4-10.8 :34 Metabolic Panel, Comments: PATIENT NOT FASTINGPERFORMED BY: StereobotShiprock-Northern Navajo Medical CenterbOtvska5066 [facility] [id number] Information: NURSE DRAW Comprehensive (60994) ALT (SGPT) 16 [iU]/L (Normal) Range: 0-32 AST (SGOT) 20 [iU]/L (Normal) Range: 0-40 Alkaline Phosphatase, S 78 [iU]/L (Normal) Range: 39-117 Bilirubin, Total 0.6 mg/dL (Normal) Range: 0.0-1.2 A/G Ratio 1.4 (Normal) Range: 1.2-2.2 Globulin, Total 2.8 g/dL (Normal) Range: 1.5-4.5 Albumin, Serum 3.9 g/dL (Normal) Range: 3.5-4.8 Protein, Total, Serum 6.7 g/dL (Normal) Range: 6.0-8.5 Calcium, Serum 9.1 mg/dL (Normal) Range: 8.7-10.3 Carbon Dioxide, Total 25 mmol/L (Normal) Range: 18-29 Chloride, Serum 100 mmol/L (Normal) Range: 96-106 Potassium, Serum 4.6 mmol/L (Normal) Range: 3.5-5.2 Sodium, Serum 142 mmol/L (Normal) Range: 134-144 BUN/Creatinine Ratio 11 (Abnormal) Range: 12-28 eGFR If Africn Am 50 mL/min/1.73 (Abnormal) eGFR If NonAfricn Am 43 mL/min/1.73 (Abnormal) Creatinine, Serum 1.22 mg/dL (Abnormal) Range: 0.57-1.00 BUN 13 mg/dL (Normal) Range: 8-27 Glucose, Serum 115 mg/dL (Abnormal) Range: 65-99 :34 Ferritin (79429) Comments: PATIENT NOT FASTINGPERFORMED BY: [facility] Hospital6370 [facility] [id number] Ferritin, Serum 19 ng/mL (Normal) Range: 15-150 16-Jzh-487719:17 HgA1C , Office (39840) HgA1C , Office 6.3 % (Normal) Range: 4.6 - 7.1 47-Wmj-130651:13 LIPOPROTEIN, BLD, BY NMR Comments: copy to Dr. carroll; PATIENT WAS FASTINGPERFORMED BY: BN [facility] Ttbqbkqnmk8867 [facility] [id number] BY: CB [facility] Tvthkv0002 [facility] [id number] (22816) LP-IR Score 71 (Abnormal) Comments: INSULIN RESISTANCE MARKER <--Insulin Sensitive Insulin Resistant--> Percentile in Reference PopulationInsulin Resistance ScoreLP-IR Score Low 25th 50th 75th High <27 27 45 63 >63LP-IR Score is inaccurate if patient is non-fasting. .The LP-IR score is a laboratory developed i [facility] that has beenassociated with insulin resistance and diabetes risk and should beused as one component of a physician's clinical assessment. TheLP-IR score listed above has not been cleared by the [place] Food andDrug Administration. LDL Size 20.9 nm (Normal) Comments: INTERPRETATIVE INFORMATION PARTICLE CONCENTRATION AND SIZE <--Lower CVD Risk Highe r CVD Risk--> LDL AND HDL PARTICLES Percentile in Reference Population HDL-P (total) High 75th 50th 25th Low >34.9 34.9 30.5 26.7 <26.7 . Small LDL-P Low 25th 50th 75th High <117 117 527 839 >839 . LDL Size <-Large (Pattern A)-> <-Small (Pattern B)-> 23.0 20.6 20.5 19.0 Small LDL-P and LDL Size are associated with CVD risk, but not afterLDL-P is taken into account. .These assays were developed and their performance characteristicsdetermined by [employer]. These assays have not been cleared by [place] Food and Drug Administration. The clinical utility of theselaboratory values have not been fully established. Small LDL-P 197 nmol/L (Normal) HDL-P (Total) 35.3 umol/L (Normal) Cholesterol, Total 187 mg/dL (Normal) Range: 100-199 Triglycerides 158 mg/dL (Abnormal) Range: 0-149 HDL-C 52 mg/dL (Normal) LDL-C 103 mg/dL (Abnormal) Range: 0-99 Comments: . Optimal < 100 Above optimal 100 - 129 Borderline 1 30 - 159 High 160 - 189 Very high > 189 .LDL-C is inaccurate if patient is non-fasting. LDL-P 1080 nmol/L (Abnormal) Comments: Low < 1000 Moderate 1000 - 1299 Borderline-High 1300 - 1599 High 1600 - 2000 Very High > 2000 28-Lnc-739276:13 Ferritin (34126) Comments: PATIENT WAS FASTINGPERFORMED BY: [facility] [id number] BY: Crysalin [facility]South [facility]70 [facility] [id number] Ferritin, Serum 36 ng/mL (Normal) Range: 15-150 95-Rzc-906472:13 CBC with auto diff Comments: PATIENT WAS FASTINGPERFORMED BY: ticketscript LabCoMist.ioKiegmhasnd85[address] [id number] BY: Crysalin [employer] Klnhjh0072 [facility] [id number] (41495) Immature Grans (Abs) 0.0 {x10E3/uL} (Normal) Range: 0.0-0.1 Immature Granulocytes 0 % (Normal) Baso (Absolute) 0.0 {x10E3/uL} (Normal) Range: 0.0-0.2 Eos (Absolute) 0.3 {x10E3/uL} (Normal) Range: 0.0-0.4 Monocytes(Absolute) 0.6 {x10E3/uL} (Normal) Range: 0.1-0.9 Lymphs (Absolute) 1.7 {x10E3/uL} (Normal) Range: 0.7-3.1 Neutrophils (Absolute) 4.5 {x10E3/uL} (Normal) Range: 1.4-7.0 Basos 1 % (Normal) Eos 5 % (Normal) Monocytes 8 % (Normal) Lymphs 24 % (Normal) Neutrophils 62 % (Normal) Platelets 295 {x10E3/uL} (Normal) Range: 150-379 RDW 15.5 % (Abnormal) Range: 12.3-15.4 MCHC 32.5 g/dL (Normal) Range: 31.5-35.7 MCH 28.8 pg (Normal) Range: 26.6-33.0 MCV 89 fL (Normal) Range: 79-97 Hematocrit 38.8 % (Normal) Range: 34.0-46.6 Hemoglobin 12.6 g/dL (Normal) Range: 11.1-15.9 RBC 4.38 {x10E6/uL} (Normal) Range: 3.77-5.28 WBC 7.2 {x10E3/uL} (Normal) Range: 3.4-10.8 07-Kce-152121:13 METABOLIC PANEL, Comments: PATIENT WAS FASTINGPERFORMED BY: [facility] [address] [id number] BY: CB [facility] [address] [id number] COMPREHENSIVE (40662) ALT (SGPT) 13 [iU]/L (Normal) Range: 0-32 AST (SGOT) 18 [iU]/L (Normal) Range: 0-40 Alkaline Phosphatase, S 73 [iU]/L (Normal) Range: 39-117 Bilirubin, Total 0.5 mg/dL (Normal) Range: 0.0-1.2 A/G Ratio 1.6 (Normal) Range: 1.2-2.2 Globulin, Total 2.5 g/dL (Normal) Range: 1.5-4.5 Albumin, Serum 3.9 g/dL (Normal) Range: 3.5-4.8 Protein, Total, Serum 6.4 g/dL (Normal) Range: 6.0-8.5 Calcium, Serum 9.0 mg/dL (Normal) Range: 8.7-10.3 Carbon Dioxide, Total 27 mmol/L (Normal) Range: 18-29 Chloride, Serum 96 mmol/L (Normal) Range: 96-106 Potassium, Serum 4.2 mmol/L (Normal) Range: 3.5-5.2 Sodium, Serum 140 mmol/L (Normal) Range: 134-144 BUN/Creatinine Ratio 13 (Normal) Range: 12-28 eGFR If Africn Am 60 mL/min/1.73 (Normal) eGFR If NonAfricn Am 52 mL/min/1.73 (Abnormal) Creatinine, Serum 1.05 mg/dL (Abnormal) Range: 0.57-1.00 BUN 14 mg/dL (Normal) Range: 8-27 Glucose, Serum 121 mg/dL (Abnormal) Range: 65-99 9-Pcy-520900:39 HgA1C , Office (59272) HgA1C , Office 6.4 % (Normal) Range: 4.6 - 7.1 53-Tor-720938:20 Fecal Occult Blood , Office (87359) Fecal Occult Blood , Office (Inhouse) negative (Normal) 95-Sei-032629:52 Stool Guiac Test, Office (Medicare) (G0107) Stool Guiac Test, Office (Medicare) Negative (Normal) 5-Iwh-766626:54 Ferritin (88378) Comments: recheck in 4 weeks; PATIENT WAS FASTINGPERFORMED BY: [employer]6370 [facility] groupHardin [facility] Hospital [id number] Ferritin, Serum 139 ng/mL (Normal) Range: 15-150 5-Snn-502431:54 Iron Binding Capacity (TIBC) Comments: recheck in 4 weeks; PATIENT WAS FASTINGPERFORMED BY: [facility]70 [facility]wampEC[facility] [id number] (87329) Iron Saturation 14 % (Abnormal) Range: 15-55 Iron, Serum 50 ug/dL (Normal) Range: 27-139 UIBC 296 ug/dL (Normal) Range: 118-369 Iron Bind.Cap.(TIBC) 346 ug/dL (Normal) Range: 250-450 :54 CBC WITH MANUAL DIFF (66410) Comments: recheck in 4 weeks; PATIENT WAS FASTINGPERFORMED BY: [facility]70 [facility]wampEC[facility] [id number]; fu 12-16 Immature Grans (Abs) 0.0 {x10E3/uL} Range: 0.0-0.1 (Normal) Immature Granulocytes 0 % (Normal) Baso (Absolute) 0.0 {x10E3/uL} Range: 0.0-0.2 (Normal) Eos (Absolute) 0.2 {x10E3/uL} Range: 0.0-0.4 (Normal) Monocytes(Absolute) 0.7 {x10E3/uL} Range: 0.1-0.9 (Normal) Lymphs (Absolute) 1.7 {x10E3/uL} Range: 0.7-3.1 (Normal) Neutrophils (Absolute) 5.3 {x10E3/uL} Range: 1.4-7.0 (Normal) Basos 1 % (Normal) Eos 2 % (Normal) Monocytes 9 % (Normal) Lymphs 22 % (Normal) Neutrophils 66 % (Normal) Platelets 292 {x10E3/uL} Range: 150-379 (Normal) RDW 20.1 % (Abnormal) Range: 12.3-15.4 MCHC 32.1 g/dL (Normal) Range: 31.5-35.7 MCH 26.4 pg (Abnormal) Range: 26.6-33.0 MCV 82 fL (Normal) Range: 79-97 Hematocrit 35.5 % (Normal) Range: 34.0-46.6 Hemoglobin 11.4 g/dL (Normal) Range: 11.1-15.9 RBC 4.32 {x10E6/uL} Range: 3.77-5.28 (Normal) WBC 7.9 {x10E3/uL} Range: 3.4-10.8 (Normal) C-Reactive Protein, 8.3 mg/L (Abnormal) Comments: PERFORMED BY: StereobotNew Bridge Medical CenterOoncjb6[address] [place] [address] [id number] BY: [address] [id number] 3:14 Quant Range: 0.0-4.9 9-Tyy-169242:14 CBC, Platelet, No Comments: PERFORMED BY: StereobotNew Bridge Medical CenterGocvok89[address] [place] [address] [id number] BY: [address] [id number] Differential Platelets 346 {x10E3/uL} Range: 150-379 (Normal) RDW 16.2 % (Abnormal) Range: 12.3-15.4 MCHC 32.3 g/dL (Normal) Range: 31.5-35.7 MCH 25.3 pg (Abnormal) Range: 26.6-33.0 MCV 78 fL (Abnormal) Range: 79-97 Hematocrit 30.3 % (Abnormal) Range: 34.0-46.6 Hemoglobin 9.8 g/dL (Abnormal) Range: 11.1-15.9 RBC 3.88 {x10E6/uL} Range: 3.77-5.28 (Normal) WBC 7.9 {x10E3/uL} Range: 3.4-10.8 (Normal) Ferritin, Serum 12 ng/mL (Abnormal) Comments: PERFORMED BY: B[facility] [id number] BY: Stereobot[address] [id number] :14 Range: 15-150 Folate (Folic Acid), 14.8 ng/mL (Normal) Comments: PERFORMED BY: Bizily [facility] HospitalIntellipharmaceutics InternationalECU [facility] [id number] BY: [address] [id number] :14 Serum Comments: A serum folate concentration of less than 3.1 ng/mL isconsidered to represent clinical deficiency. :14 Iron and TIBC Comments: PERFORMED BY: [facility] [facility] [id number] BY: [address] [id number] Iron Saturation 7 % (Abnormal) Range: 15-55 Iron, Serum 32 ug/dL (Normal) Range: 27-139 UIBC 395 ug/dL (Abnormal) Range: 118-369 Iron Bind.Cap.(TIBC) 427 ug/dL (Normal) Range: 250-450 Methylmalonic Acid, 288 nmol/L (Normal) Comments: PERFORMED BY: [employer] [facility] [id number] BY: [address] [id number] 3:14 Serum Range: 0-378 Potassium, Serum 4.2 mmol/L (Normal) Comments: PERFORMED BY: [facility] CenterRqivbr0678 [facility] [id number] BY: [address] [id number] 3:14 Range: 3.5-5.2 Reticulocyte Count 1.5 % (Normal) Comments: PERFORMED BY: [facility] Aevrse6322 [facility] [id number] BY: [address] [id number] 3:14 Range: 0.6-2.6 Sedimentation 24 mm/h (Normal) Comments: PERFORMED BY: [facility] Lcludz1646 [facility] [id number] BY: [address] [id number] 3:14 Rate-Westergren Range: 0-40 Vitamin B12 532 pg/mL (Normal) Comments: PERFORMED BY: [facility] Rjkdxz4423 [facility] [id number] BY: [address] [id number] 3:14 Range: 211-946 [id number] Urinalysis, Complete Comments: note - microscopic exam done on unspun urine because only 1ml sample obtainedHow was Urine Obtained? [facility] [id number] PATRICK Snider, [id number] MUCUS, URINE 0 SEEN {/hpf} (Normal) BACTERIA 0 SEEN {/hpf} (Normal) SQUAM EPI 0-5 SEEN {/hpf} (Normal) Range: 5-10 RBC-UA 0-5 SEEN {/hpf} (Normal) Range: 0-5 WBC 0-5 SEEN {/hpf} (Normal) Range: 0-5 LEUK ESTERASE 100 /ul (Abnormal) OCCULT BLOOD-UR 10 /ul (Abnormal) NITRITE UR Negative (Normal) UROBILI Normal mg/dL (Normal) PROT DIPSTX Negative mg/dL (Normal) pH UR 8.0 (Normal) Range: 5.0 - 8.0 SP.GR. DIPSTX 1.010 (Normal) Range: 1.002-1.030 KETONE UR Negative mg/dL (Normal) BILIRUBIN URINE Negative mg/dL (Normal) GLUCOSE, UR Normal mg/dL (Normal) CLARITY Sl. Cloudy (Normal) COLOR Yellow (Normal) [id number] Basic Metabolic Profile (BMP) Comments: 'TROP' Serial specimen #1, #2, #3, or #4: [address] [place] [address] [address]unm[address]. [place], [place], [id number] GAP 6 (Normal) Range: 5-15 CO2 31.0 mmol/L (Normal) Range: 21.0-32.0 CL 101 mmol/L (Normal) Range: 98-107 K 3.3 mmol/L (Abnormal) Range: 3.5-5.1 NA 138 mmol/L (Normal) Range: 136-145 CA 9.1 mg/dL (Normal) Range: 8.5-10.1 BUN/CRE 15.8 {RATIO} (Normal) Range: 10-20 Estimated CRCL 38.37 ml/min (Normal) EST GFR - AA 60 mL/min (Normal) Comments: GFR Calc EST GFR 49 mL/min (Abnormal) Comments: Non- GFR Calc CREAT,SERUM 1.14 mg/dL (Normal) Range: 0.55-1.20 Comments: The validity of the calculated GFR AND GFRAA in patients over70 years has not been determined. Clinical correlation isessential. BUN 18 mg/dL (Normal) Range: 7-18 GLU 129 mg/dL (Abnormal) Range: 70-110 Comments: Fasting Glucose result greater than or equal to 126 mg/dLsuggests DIABETES MELLITUS per A.D.A. criteria. 3-Yhw-048922:25 CBC W/Diff, Automated Comments: [facility] Nweoepwfxk[address] [place], [address] Absolute Lymph 1.98 {X10_3/ul} (Normal) Range: 0.83-4.51 Absolute Neut 5.4 {X10_3/uL} (Normal) Range: 2.0-7.7 IM GRAN % 0.300 % (Normal) Range: 0.0-0.9 Comments: IG% - Immature Granulocytes (promyelocytes, myelocytes andmetamyelocytes) > 1% indicates that a LEFT SHIFT is Present. BASO% 0.3 % (Normal) Range: 0-1 EO% 3.4 % (Normal) Range: 0-5 MONO% 10.8 % (Abnormal) Range: 0-10 LY% 22.9 % (Normal) Range: 19-41 NEUT% 62.3 % (Normal) Range: 47-70 MPV 8.9 fL (Normal) Range: 6.2-12.0 PLT 344 K/mm3 (Normal) Range: 150-450 RDW SD 46.8 fL (Abnormal) Range: 35.1-43.9 RDW CV 15.5 % (Abnormal) Range: 11.6-14.6 MCHC 30.8 {g/gl} (Abnormal) Range: 32-36 MCH 25.4 pg (Abnormal) Range: 27.0-32.0 MCV 82.4 fL (Normal) Range: 81-99 HCT 35.1 % (Abnormal) Range: 37-47 HGB 10.8 g/dL (Abnormal) Range: 12.0-15.0 RBC 4.26 {M/mm3} (Normal) Range: 4.2-5.4 WBC 8.7 K/mm3 (Normal) Range: 4.4-11.0 4-Wka-888807:25 Troponin-I Comments: 'TROP' Serial specimen #1, #2, #3, or #4: [facility] Cawpilnbqp9[address] [place], [address] TROPONIN-I < 0.02 ng/mL (Normal) Comments: TROPONIN-I EXPECTED VALUES <0.05 NEGATIVE 0.06 - 0.59 AT RISK OF NC > OR = 0.60 SUGGEST NC 14-Agv-175774:54 CBC (Auto) (46403) Comments: PATIENT NOT FASTINGPERFORMED BY: LabGary [place] 1287570 [facility] [id number] BY: [address] [id number] Inf ormation: [id number], [id number] Platelets 374 {x10E3/uL} (Normal) Range: 150-379 RDW 14.8 % (Normal) Range: 12.3-15.4 MCHC 33.0 g/dL (Normal) Range: 31.5-35.7 MCH 27.6 pg (Normal) Range: 26.6-33.0 MCV 84 fL (Normal) Range: 79-97 Hematocrit 32.4 % (Abnormal) Range: 34.0-46.6 Hemoglobin 10.7 g/dL (Abnormal) Range: 11.1-15.9 RBC 3.87 {x10E6/uL} (Normal) Range: 3.77-5.28 WBC 9.4 {x10E3/uL} (Normal) Range: 3.4-10.8 :54 RETICULOCYTE COUNT (47254) Comments: PATIENT NOT FASTINGPERFORMED BY: [facility] [id number] BY: [address] [id number] Reticulocyte Count 2.0 % (Normal) Range: 0.6-2.6 :54 LDH (LD) (LACTATE Comments: PATIENT NOT FASTINGPERFORMED BY: [facility] Administration[facility]Write[address] [id number] BY: [address] [id number] DEHYDROGENASE) (69009) LDH 213 [iU]/L (Normal) Range: 119-226 :54 Methymalonic Acid, Serum Comments: PATIENT NOT FASTINGPERFORMED BY: [facility] Administration[facility] [id number] BY: [address] [id number] (11167) Methylmalonic Acid, Serum 238 nmol/L (Normal) Range: 0-378 47-Vtl-047756:54 Vitamin B-12 Comments: PATIENT NOT FASTINGPERFORMED BY: [facility]otShiprock-[facility] CenterbBjgvqc3174 [facility] [id number] BY: [address] [id number] (cyanocobalamin) (49057) Vitamin B12 565 pg/mL (Normal) Range: 211-946 99-Fpf-128093:54 Iron Binding Capacity Comments: PATIENT NOT FASTINGPERFORMED BY: [facility]obotNew Bridge Medical CenterUmzfus6396 [facility] [id number] BY: [address] [id number] (TIBC) (83216) Iron Saturation 7 % (Abnormal) Range: 15-55 Iron, Serum 31 ug/dL (Normal) Range: 27-139 UIBC 434 ug/dL (Abnormal) Range: 118-369 Iron Bind.Cap.(TIBC) 465 ug/dL (Abnormal) Range: 250-450 31-Gdy-080718:54 Ferritin (72383) Comments: PATIENT NOT FASTINGPERFORMED BY: [facility]otChristian [place] 9677070 [facility] [id number] BY: [address] [id number] Ferritin, Serum 10 ng/mL (Abnormal) Range: 15-150 :54 Folic Acid Serum (24987) Comments: PATIENT NOT FASTINGPERFORMED BY: [facility] [place] 9677070 [facility] [id number] BY: [address] [id number] Folate (Folic Acid), Serum 12.7 ng/mL (Normal) Comments: A serum folate concentration of less than 3.1 ng/mL isconsidered to represent clinical deficiency. 01-Jbt-630237:54 Metabolic Panel, Comments: PATIENT NOT FASTINGPERFORMED BY: [facility]6370 [facility] [id number] Information: [id number] Comprehensive (73392) ALT (SGPT) 20 [iU]/L (Normal) Range: 0-32 AST (SGOT) 28 [iU]/L (Normal) Range: 0-40 Alkaline Phosphatase, S 73 [iU]/L (Normal) Range: 39-117 Bilirubin, Total 0.6 mg/dL (Normal) Range: 0.0-1.2 A/G Ratio 1.6 (Normal) Range: 1.1-2.5 Globulin, Total 2.6 g/dL (Normal) Range: 1.5-4.5 Albumin, Serum 4.2 g/dL (Normal) Range: 3.5-4.8 Protein, Total, Serum 6.8 g/dL (Normal) Range: 6.0-8.5 Calcium, Serum 8.9 mg/dL (Normal) Range: 8.7-10.3 Carbon Dioxide, Total 25 mmol/L (Normal) Range: 18-29 Chloride, Serum 100 mmol/L (Normal) Range: 97-108 Potassium, Serum 4.0 mmol/L (Normal) Range: 3.5-5.2 Sodium, Serum 141 mmol/L (Normal) Range: 134-144 BUN/Creatinine Ratio 12 (Normal) Range: 11-26 eGFR If Africn Am 67 mL/min/1.73 (Normal) eGFR If NonAfricn Am 58 mL/min/1.73 (Abnormal) Creatinine, Serum 0.97 mg/dL (Normal) Range: 0.57-1.00 BUN 12 mg/dL (Normal) Range: 8-27 Glucose, Serum 132 mg/dL (Abnormal) Range: 65-99 94-Kat-857552:54 CBC (Auto) (17637) Comments: PATIENT NOT FASTINGPERFORMED BY: [facility] Szgfsa1733 [facility] [id number] Platelets 323 {x10E3/uL} (Normal) Range: 150-379 RDW 16.9 % (Abnormal) Range: 12.3-15.4 MCHC 32.8 g/dL (Normal) Range: 31.5-35.7 MCH 26.7 pg (Normal) Range: 26.6-33.0 MCV 82 fL (Normal) Range: 79-97 Hematocrit 36.6 % (Normal) Range: 34.0-46.6 Hemoglobin 12.0 g/dL (Normal) Range: 11.1-15.9 RBC 4.49 {x10E6/uL} (Normal) Range: 3.77-5.28 WBC 8.1 {x10E3/uL} (Normal) Range: 3.4-10.8 :54 Iron (33305) Comments: PATIENT NOT FASTINGPERFORMED BY: [facility] Ouxddk9553 [facility] [id number] Iron, Serum 40 ug/dL (Normal) Range: 27-139 Comments: Please note reference interval change :54 Ferritin (75123) Comments: PATIENT NOT FASTINGPERFORMED BY: [facility] Dvigrd5475 [facility] [id number] Ferritin, Serum 22 ng/mL (Normal) Range: 15-150 :01 TSH (89949) Comments: PATIENT NOT FASTINGPERFORMED BY: [facility] Khamfq7642 [facility] [id number] TSH 2.620 {uIU/mL} (Normal) Range: 0.450-4.500 :01 CBC (Auto) (41763) Comments: PATIENT NOT FASTINGPERFORMED BY: [facility] Ljfrmm0190 [facility] [id number] Information: [id number] Platelets 316 {x10E3/uL} (Normal) Range: 150-379 RDW 17.8 % (Abnormal) Range: 12.3-15.4 MCHC 31.2 g/dL (Abnormal) Range: 31.5-35.7 MCH 25.4 pg (Abnormal) Range: 26.6-33.0 MCV 82 fL (Normal) Range: 79-97 Hematocrit 35.3 % (Normal) Range: 34.0-46.6 Hemoglobin 11.0 g/dL (Abnormal) Range: 11.1-15.9 RBC 4.33 {x10E6/uL} (Normal) Range: 3.77-5.28 WBC 8.8 {x10E3/uL} (Normal) Range: 3.4-10.8 82-Ppf-858218:01 Ferritin (86069) Comments: PATIENT NOT FASTINGPERFORMED BY: [facility] Qhnczb7278 [address] [place] [id number] Ferritin, Serum 20 ng/mL (Normal) Range: 15-150 :54 Pap IG (Image Comments: Source.............Cervical;EndocervicalNo. of containers..01 CYTYC Thin Prep VialPATIENT NOT FASTINGPERFORMED BY: =G [facility] Kprxuwukar616 [address] PlazaSherry[place] [id number] BY: WB L Guided) abCIndoorAtlas120 [address] PlazaCharleston [place] [id number] Note: PAPSMR (Normal) Comments: The Pap smear is a screening test designed to aid in the detection ofpremalignant and malignant conditions of the uterine cervix. It is not adiagnostic procedure and should not be used as the sole mean s of detectingcervical cancer. Both false-positive and false-negative reports do occur. .This liquid based ThinPrep(R) pap test w as screened with theuse of an image guided system. See Note . (Normal) DIAGNOSIS: SPRCS (Normal) Comments: NEGATIVE FOR INTRAEPITHELIAL LESION AND MALIGNANCY.CELLULAR CHANGES ASSOCIATED WITH INFLAMMATION ARE PRESENT.THIS SPECIMEN WAS RESCREENED PART OF OUR CUSTOMER QUALITY ENGINEER PROGRAM.Satisfactory for evaluati on. Endocervical and/or squamous metaplasticcells (endocervical component) are present.627.1 ; Postmenopausal bleedingCynthitamar Horta Hotbed Operator (ASCP)Usha Davis Hotbed Operator (ASCP) 60-Ztd-67659:54 Thin Prep Pap Comments: Source.............Cervical;EndocervicalNo. of containers..01 CYTYC Thin Prep VialPATIENT NOT FASTINGPERFORMED BY: =G [facility] Bmammaatuc253 [address] PlazaSherryrl[place] [id number] BY: WB L (82629) [facility] Ufiemsgjun919 [address] PlazaCharleston [place] [id number] Information: [id number] Age Gdln ACOG Testing AGE6 (Normal) Comments: <21 or >65 or no age provided :56 Urinalysis, Office (03631) UA - LEUKOCYTE ESTERASE Small (Normal) UA - NITRITE Negative (Normal) URINE UROBILINGN BLANCO TIMED Normal mg/dL (Normal) UA - PROTEIN Negative mg/dL (Normal) UA - PH 7.5 (Normal) UA - BLOOD Non Hemolyzed Trace (Normal) UA - SPECIFIC GRAVITY 1.015 (Normal) UA - KETONES Negative mg/dL (Normal) UA - BILIRUBIN Negative (Normal) UA - GLUCOSE Negative (Normal) :13 Culture, Body Fluid Comments: Test performed at:[facility] Rxcntjstrd4285 [facility] [place] [address] ; ordered by another doctor CUBF See Note (Normal) Comments: List Antibiotics Last 48 Hours? UList Antibiotics to be Started? UComments: LEFT KNEEGram StainGram Stain No organisms seen No White Blood Cells Body Fluid CultNO GROWTH IN 14 DAYS Cult, AnaerobicNo anaerobic bacteria isolated. :13 Miscellaneous Lab Procedure Comments: Comments: LEFT KNEETest(s) Ordered: PROTEIN SYNOVIAL LC#[id number] Test(s) Ordered by Physician: GLUCOSE SYNOVIAL LC#[id number] performed at:[facility] Ibsqdhbjzs4895 [place] [address] MISC Comments: TEST RESULT UNITS REFERENCE INTERVALGlucose, Body Fluid 87 mg/dL : Peritoneal : Pleural : Synov LAB (Normal) ial :: : : :: : Transudate : Exudate : :: : : : :: Not Estab. : Equ TEST al to simultaneously drawn plasma :: : :The method performance specifications have not beenestablished for this test in body fluid. The test resul tshould be integrated into clinical context forinterpretation. The reference intervals and other methodperformance specifications have not been established forthis test. The test result should be integr ated into theclinical context for interpretation. TESTING PERFORMED AT [facility]. ORIGINAL REPORT ON FILE IN LAB CONTAINS ADDITIONAL TEST SITE INF ORMATION. 17-Mzh-455280:13 Miscellaneous Lab Procedure 2 Comments: Comments: LEFT KNEETest(s) Ordered: PROTEIN SYNOVIAL LC#[id number] Test(s) Ordered by Physician: GLUCOSE SYNOVIAL LC#[id number] performed at:[address] [id number] [facility] Comments: TEST RESULT UNITS REFERENCE INTERVALProtein, Body Fluid 3.6 g/dL : Peritoneal : Pleural : Synovial LAB (Normal) :: : : :: : Transudate : Exudate : :: : : : :: Not Estab. : < TEST 3 g/dL : >3 g/dL : <2.5 g/dL :: : : : :The method performance specifications have not beenestablished for this test in body fluid. The te 2 st resultshould be integrated into the clinical context forinterpretation. The method performance specifications havenot been established for this test in body fluid. The testresult should be integrated into the clinical context forinterpretation. TESTING PERFORMED AT [facility]. ORIGINAL REPORT ON FILE IN LAB CONTAINS ADDITIONAL TEST SITE INFORMA TION. 19-Jus-845290:13 Synovial Fluid RBC, WBC AND Comments: Test performed at:[facility] Zplwvcfbgw6741 [place], [place] [id number] ; ordered by Dr. Raoul Cordova PATH COM/SYFL May follow (Normal) MONO 96 % (Normal) LYMPH 2 % (Normal) NEUTROPHIL 2 % (Normal) Range: 0-25 SYBF MN WBC% 92.1 % (Normal) SYBF PMN WBC# 0.033 {10_3/ul} (Normal) SYBF PMN WBC% 7.9 % (Normal) SYNOVIAL WBC 0.4180 {10_3uL} Range: 0.000-0.002 (Abnormal) SYNOVIAL RBC 0.003 {10_6/uL} (Abnormal) SYN Tot Cell Ct 0.4290 {10_3_uL} Range: 0.000-0.000 (Abnormal) Comments: This is the Total Number of Nucleated Cell Types in the BodyFluid. SYNOVIAL WOJCIECH. Sl Cl (Normal) SYNOVIAL COLOR Yellow (Normal) SYNOVIAL SOURCE LT KNEE (Normal) :2 Reticulocyte Count 1.5 % (Normal) Comments: PATIENT NOT FASTINGPERFORMED BY: [facility]70 [facility] [id number] Information: [id number] Range: 0.6-2.6 :27 CBC With Differential/Platelet Comments: PATIENT WAS FASTINGPERFORMED BY: [facility]70 [facility] [id number] Information: [id number] Immature Grans (Abs) 0.0 {x10E3/uL} (Normal) Range: 0.0-0.1 Immature Granulocytes 0 % (Normal) Baso (Absolute) 0.0 {x10E3/uL} (Normal) Range: 0.0-0.2 Eos (Absolute) 0.3 {x10E3/uL} (Normal) Range: 0.0-0.4 Monocytes(Absolute) 0.5 {x10E3/uL} (Normal) Range: 0.1-0.9 Lymphs (Absolute) 1.4 {x10E3/uL} (Normal) Range: 0.7-3.1 Neutrophils (Absolute) 4.3 {x10E3/uL} (Normal) Range: 1.4-7.0 Basos 1 % (Normal) Eos 4 % (Normal) Monocytes 8 % (Normal) Lymphs 22 % (Normal) Neutrophils 65 % (Normal) Platelets 330 {x10E3/uL} (Normal) Range: 150-379 RDW 16.7 % (Abnormal) Range: 12.3-15.4 MCHC 31.4 g/dL (Abnormal) Range: 31.5-35.7 MCH 25.1 pg (Abnormal) Range: 26.6-33.0 MCV 80 fL (Normal) Range: 79-97 Hematocrit 34.1 % (Normal) Range: 34.0-46.6 Hemoglobin 10.7 g/dL (Abnormal) Range: 11.1-15.9 RBC 4.26 {x10E6/uL} (Normal) Range: 3.77-5.28 WBC 6.6 {x10E3/uL} (Normal) Range: 3.4-10.8 :27 Comp. Metabolic Panel (14) Comments: PATIENT WAS FASTINGPERFORMED BY: LabCoNew Bridge Medical CenterHuyryn3946 [facility] [id number] ALT (SGPT) 13 [iU]/L (Normal) Range: 0-32 AST (SGOT) 20 [iU]/L (Normal) Range: 0-40 Alkaline Phosphatase, 68 [iU]/L (Normal) Range: 39-117 S Bilirubin, Total 0.4 mg/dL (Normal) Range: 0.0-1.2 A/G Ratio 1.7 (Normal) Range: 1.1-2.5 Globulin, Total 2.3 g/dL (Normal) Range: 1.5-4.5 Albumin, Serum 4.0 g/dL (Normal) Range: 3.5-4.8 Protein, Total, Serum 6.3 g/dL (Normal) Range: 6.0-8.5 Calcium, Serum 9.0 mg/dL (Normal) Range: 8.7-10.3 Carbon Dioxide, Total 26 mmol/L (Normal) Range: 18-29 Chloride, Serum 100 mmol/L (Normal) Range: 97-108 Potassium, Serum 4.2 mmol/L (Normal) Range: 3.5-5.2 Sodium, Serum 141 mmol/L (Normal) Range: 134-144 BUN/Creatinine Ratio 15 (Normal) Range: 11-26 eGFR If Africn Am 63 mL/min/1.73 (Normal) eGFR If NonAfricn Am 55 mL/min/1.73 (Abnormal) Creatinine, Serum 1.01 mg/dL Range: 0.57-1.00 (Abnormal) BUN 15 mg/dL (Normal) Range: 8-27 Glucose, Serum 106 mg/dL Range: 65-99 (Abnormal) : Ferritin, Serum 18 ng/mL (Normal) Comments: PATIENT WAS FASTINGPERFORMED BY: [facility]6370 [facility] [id number] 27 Range: 15-150 Lipid Panel With LDL/HDL Comments: PATIENT WAS FASTINGPERFORMED BY: [facility]6370 [facility] [id number] Ratio LDL/HDL Ratio 2.0 {ratio_units} (Normal) Range: 0.0-3.2 Comments: LDL/HDL Ratio Men Women 1/2 Avg.Risk 1.0 1.5 Av g.Risk 3.6 3.2 2X Avg.Risk 6.2 5.0 3X Avg.Risk 8.0 6.1 LDL Cholesterol Calc 100 mg/dL (Abnormal) Range: 0-99 VLDL Cholesterol Nicolás 25 mg/dL (Normal) Range: 5-40 HDL Cholesterol 50 mg/dL (Normal) Comments: According to ATP-III Guidelines, HDL-C >59 mg/dL is considered anegative risk factor for CHD. Triglycerides 127 mg/dL (Normal) Range: 0-149 Cholesterol, Total 175 mg/dL (Normal) Range: 100-199 :27 Microscopic Examination Comments: PATIENT WAS FASTINGPERFORMED BY: [facility]6370 [facility] [id number] Bacteria Few (Normal) Mucus Threads Present (Normal) Epithelial Cells (non renal) 0-10 {/hpf} (Normal) Range: 0 - 10 RBC 3-10 {/hpf} (Abnormal) Range: 0 - 2 WBC 11-30 {/hpf} (Abnormal) Range: 0 - 5 Urinalysis, Complete Comments: PATIENT WAS FASTINGPERFORMED BY: [facility]6370 [facility] [id number] Microscopic Examination See below: (Normal) Comments: Microscopic was indicated and was performed. Nitrite, Urine Negative (Normal) Urobilinogen,Semi-Qn 0.2 mg/dL (Normal) Range: 0.0-1.9 Bilirubin Negative (Normal) Occult Blood 1+ (Abnormal) Ketones Negative (Normal) Glucose Negative (Normal) Protein Trace (Normal) WBC Esterase 2+ (Abnormal) Appearance Clear (Normal) Urine-Color Yellow (Normal) pH 6.5 (Normal) Range: 5.0-7.5 Specific [place]bee 1.021 (Normal) Range: 1.005-1.030 :37 CBC, Platelets & Auto Comments: PATIENT NOT FASTINGPERFORMED BY: [facility]6370 [facility] [id number] Information: [id number] Diff (64583) Immature Grans (Abs) 0.0 {x10E3/uL} (Normal) Range: 0.0-0.1 Immature Granulocytes 0 % (Normal) Baso (Absolute) 0.0 {x10E3/uL} (Normal) Range: 0.0-0.2 Eos (Absolute) 0.3 {x10E3/uL} (Normal) Range: 0.0-0.4 Monocytes(Absolute) 0.6 {x10E3/uL} (Normal) Range: 0.1-0.9 Lymphs (Absolute) 1.6 {x10E3/uL} (Normal) Range: 0.7-3.1 Neutrophils (Absolute) 4.9 {x10E3/uL} (Normal) Range: 1.4-7.0 Basos 0 % (Normal) Eos 4 % (Normal) Monocytes 8 % (Normal) Lymphs 22 % (Normal) Neutrophils 66 % (Normal) Platelets 307 {x10E3/uL} (Normal) Range: 150-379 RDW 16.1 % (Abnormal) Range: 12.3-15.4 MCHC 32.2 g/dL (Normal) Range: 31.5-35.7 MCH 26.5 pg (Abnormal) Range: 26.6-33.0 MCV 83 fL (Normal) Range: 79-97 Hematocrit 33.9 % (Abnormal) Range: 34.0-46.6 Hemoglobin 10.9 g/dL (Abnormal) Range: 11.1-15.9 RBC 4.11 {x10E6/uL} (Normal) Range: 3.77-5.28 WBC 7.4 {x10E3/uL} (Normal) Range: 3.4-10.8 :37 Metabolic Panel, Comprehensive Comments: PATIENT NOT FASTINGPERFORMED BY: [facility]6370 [facility] [id number] (52281) ALT (SGPT) 16 [iU]/L (Normal) Range: 0-32 AST (SGOT) 21 [iU]/L (Normal) Range: 0-40 Alkaline Phosphatase, S 74 [iU]/L (Normal) Range: 39-117 Bilirubin, Total 0.7 mg/dL (Normal) Range: 0.0-1.2 A/G Ratio 1.8 (Normal) Range: 1.1-2.5 Globulin, Total 2.3 g/dL (Normal) Range: 1.5-4.5 Albumin, Serum 4.1 g/dL (Normal) Range: 3.5-4.8 Protein, Total, Serum 6.4 g/dL (Normal) Range: 6.0-8.5 Calcium, Serum 8.8 mg/dL (Normal) Range: 8.7-10.3 Carbon Dioxide, Total 26 mmol/L (Normal) Range: 18-29 Chloride, Serum 98 mmol/L (Normal) Range: 97-108 Potassium, Serum 4.2 mmol/L (Normal) Range: 3.5-5.2 Sodium, Serum 143 mmol/L (Normal) Range: 134-144 BUN/Creatinine Ratio 14 (Normal) Range: 11-26 eGFR If Africn Am 65 mL/min/1.73 (Normal) eGFR If NonAfricn Am 56 mL/min/1.73 (Abnormal) Creatinine, Serum 1.00 mg/dL (Normal) Range: 0.57-1.00 BUN 14 mg/dL (Normal) Range: 8-27 Glucose, Serum 115 mg/dL (Abnormal) Range: 65-99 32-Asm-818058:37 Ferritin (48157) Comments: PATIENT NOT FASTINGPERFORMED BY: [facility] Cmoviv9795 [facility] [id number] Ferritin, Serum 20 ng/mL (Normal) Range: 15-150 63-Vhp-27139:49 Lipid Panel (29049) Comments: copy to Dr. carroll all labs.; PATIENT WAS FASTINGPERFORMED BY: [facility] Ztcmgt1990 [facility] [id number] LDL/HDL Ratio 1.9 {ratio_units} (Normal) Range: 0.0-3.2 Comments: LDL/HDL Ratio Men Women 1/2 Avg.Risk 1.0 1.5 Av g.Risk 3.6 3.2 2X Avg.Risk 6.2 5.0 3X Avg.Risk 8.0 6.1 LDL Cholesterol Calc 105 mg/dL (Abnormal) Range: 0-99 VLDL Cholesterol Nicolás 35 mg/dL (Normal) Range: 5-40 HDL Cholesterol 55 mg/dL (Normal) Comments: According to ATP-III Guidelines, HDL-C >59 mg/dL is considered anegative risk factor for CHD. Triglycerides 175 mg/dL (Abnormal) Range: 0-149 Cholesterol, Total 195 mg/dL (Normal) Range: 100-199 :49 Metabolic Panel, Comprehensive Comments: PATIENT WAS FASTINGPERFORMED BY: [facility]CoNew [facility] CenterPhvids7687 [facility] [id number] (63852) ALT (SGPT) 12 [iU]/L (Normal) Range: 0-32 AST (SGOT) 21 [iU]/L (Normal) Range: 0-40 Alkaline Phosphatase, S 74 [iU]/L (Normal) Range: 39-117 Bilirubin, Total 0.4 mg/dL (Normal) Range: 0.0-1.2 A/G Ratio 1.7 (Normal) Range: 1.1-2.5 Globulin, Total 2.4 g/dL (Normal) Range: 1.5-4.5 Albumin, Serum 4.1 g/dL (Normal) Range: 3.5-4.8 Protein, Total, Serum 6.5 g/dL (Normal) Range: 6.0-8.5 Calcium, Serum 8.9 mg/dL (Normal) Range: 8.6-10.2 Carbon Dioxide, Total 26 mmol/L (Normal) Range: 18-29 Chloride, Serum 97 mmol/L (Normal) Range: 97-108 Potassium, Serum 4.1 mmol/L (Normal) Range: 3.5-5.2 Sodium, Serum 141 mmol/L (Normal) Range: 134-144 BUN/Creatinine Ratio 14 (Normal) Range: 11-26 eGFR If Africn Am 65 mL/min/1.73 (Normal) eGFR If NonAfricn Am 56 mL/min/1.73 (Abnormal) Creatinine, Serum 1.00 mg/dL (Normal) Range: 0.57-1.00 BUN 14 mg/dL (Normal) Range: 8-27 Glucose, Serum 99 mg/dL (Normal) Range: 65-99 :49 Ferritin (49683) Comments: PATIENT WAS FASTINGPERFORMED BY: [facility]CoNew [facility] CenterNmnglv0414 [facility] [id number] Ferritin, Serum 21 ng/mL (Normal) Range: 15-150 :49 CBC W/AUTO DIFF WBC Comments: PATIENT WAS FASTINGPERFORMED BY: [facility]CoNew [facility] CenterPpibcq0539 [facility] [id number] Information: [id number] (97092) Immature Grans (Abs) 0.0 {x10E3/uL} (Normal) Range: 0.0-0.1 Immature Granulocytes 0 % (Normal) Baso (Absolute) 0.1 {x10E3/uL} (Normal) Range: 0.0-0.2 Eos (Absolute) 0.4 {x10E3/uL} (Normal) Range: 0.0-0.4 Monocytes(Absolute) 0.6 {x10E3/uL} (Normal) Range: 0.1-0.9 Lymphs (Absolute) 1.3 {x10E3/uL} (Normal) Range: 0.7-3.1 Neutrophils (Absolute) 4.3 {x10E3/uL} (Normal) Range: 1.4-7.0 Basos 1 % (Normal) Eos 5 % (Normal) Monocytes 9 % (Normal) Lymphs 20 % (Normal) Neutrophils 65 % (Normal) Platelets 315 {x10E3/uL} (Normal) Range: 150-379 RDW 16.1 % (Abnormal) Range: 12.3-15.4 MCHC 32.3 g/dL (Normal) Range: 31.5-35.7 MCH 26.3 pg (Abnormal) Range: 26.6-33.0 MCV 82 fL (Normal) Range: 79-97 Hematocrit 35.0 % (Normal) Range: 34.0-46.6 Hemoglobin 11.3 g/dL (Normal) Range: 11.1-15.9 RBC 4.29 {x10E6/uL} (Normal) Range: 3.77-5.28 WBC 6.6 {x10E3/uL} (Normal) Range: 3.4-10.8 [id number] Metabolic Panel, Comments: PATIENT NOT FASTINGPERFORMED BY: [facility]otNew [facility] CenterOmayvq9602 [facility] [id number] Information: [id number] Comprehensive ([id number]) ALT (SGPT) 14 [iU]/L (Normal) Range: 0-32 AST (SGOT) 22 [iU]/L (Normal) Range: 0-40 Alkaline Phosphatase, S 90 [iU]/L (Normal) Range: 39-117 Bilirubin, Total 0.5 mg/dL (Normal) Range: 0.0-1.2 A/G Ratio 2.0 (Normal) Range: 1.1-2.5 Globulin, Total 2.2 g/dL (Normal) Range: 1.5-4.5 Albumin, Serum 4.4 g/dL (Normal) Range: 3.5-4.8 Protein, Total, Serum 6.6 g/dL (Normal) Range: 6.0-8.5 Calcium, Serum 9.8 mg/dL (Normal) Range: 8.6-10.2 Carbon Dioxide, Total 26 mmol/L (Normal) Range: 18-29 Chloride, Serum 98 mmol/L (Normal) Range: 97-108 Potassium, Serum 4.4 mmol/L (Normal) Range: 3.5-5.2 Sodium, Serum 141 mmol/L (Normal) Range: 134-144 BUN/Creatinine Ratio 15 (Normal) Range: 11-26 eGFR If Africn Am 70 mL/min/1.73 (Normal) eGFR If NonAfricn Am 60 mL/min/1.73 (Normal) Creatinine, Serum 0.94 mg/dL (Normal) Range: 0.57-1.00 BUN 14 mg/dL (Normal) Range: 8-27 Glucose, Serum 79 mg/dL (Normal) Range: 65-99 [id number] CBC (Auto) ([id number]) Comments: PATIENT NOT FASTINGPERFORMED BY: LabCoNew [facility] CenterRwwbbb7708 [facility] [id number] Platelets 332 {x10E3/uL} (Normal) Range: 150-379 RDW 15.9 % (Abnormal) Range: 12.3-15.4 MCHC 32.0 g/dL (Normal) Range: 31.5-35.7 MCH 26.6 pg (Normal) Range: 26.6-33.0 MCV 83 fL (Normal) Range: 79-97 Hematocrit 34.7 % (Normal) Range: 34.0-46.6 Hemoglobin 11.1 g/dL (Normal) Range: 11.1-15.9 RBC 4.18 {x10E6/uL} (Normal) Range: 3.77-5.28 WBC 8.3 {x10E3/uL} (Normal) Range: 3.4-10.8 :40 Ferritin (54199) Comments: PATIENT NOT FASTINGPERFORMED BY: LabCoNew Bridge Medical CenterDcvpqy7380 [facility] [id number] Ferritin, Serum 35 ng/mL (Normal) Range: 15-150 :19 BMP Comments: Serial Specimen #1, #2 or #3? 1'TROP' Serial specimen #1, #2, #3, or #4: 1 GAP 6 (Normal) Range: 5-15 CO2 31.0 mmol/L (Normal) Range: 21.0-32.0 CL 100 mmol/L (Normal) Range: 98-107 K 3.5 mmol/L (Normal) Range: 3.5-5.1 Comments: Specimen slightly hemolyzed. Results may be affected. NA 137 mmol/L (Normal) Range: 136-145 CA 9.0 mg/dL (Normal) Range: 8.5-10.1 BC 16.3 {RATIO} (Normal) Range: 10-20 CREAT 0.8 mg/dL (Normal) Range: 0.6-1.0 BUN 13 mg/dL (Normal) Range: 7-18 GLU 95 mg/dL (Normal) Range: 70-110 :12 CBCD DC SCANNED (Normal) ANC 3.2 {X10_3/uL} (Normal) Range: 2.0-7.7 IG% 0.200 % (Normal) Range: 0.0-0.9 Comments: IG% - Immature Granulocytes (promyelocytes, myelocytes andmetamyelocytes) > 1% indicates that a LEFT SHIFT is Present. B% 0.5 % (Normal) Range: 0-1 E% 2.9 % (Normal) Range: 0-5 L% 34.2 % (Normal) Range: 19-41 M% 10.1 % (Abnormal) Range: 0-10 N% 52.1 % (Normal) Range: 47-70 MPV 9.6 fL (Normal) Range: 6.2-12.0 PLT 254 K/mm3 (Normal) Range: 150-450 RDWSD 46.9 fL (Abnormal) Range: 35.1-43.9 MCHC 32.4 {g/gl} (Normal) Range: 32-36 RDWCV 15.3 % (Abnormal) Range: 11.6-14.6 MCH 27.0 pg (Normal) Range: 27.0-32.0 MCV 83.5 fL (Normal) Range: 81-99 HCT 31.8 % (Abnormal) Range: 37-47 HGB 10.3 g/dL (Abnormal) Range: 12.0-15.0 RBC 3.81 {M/mm3} (Abnormal) Range: 4.2-5.4 WBC 6.1 K/mm3 (Normal) Range: 4.4-11.0 :19 CKMB Comments: Serial Specimen #1, #2 or #3? 1'TROP' Serial specimen #1, #2, #3, or #4: 1 CPKMB 1.2 ng/mL (Normal) Range: 0.0-5.0 Comments: CK-MB and RI Interpretation MB Relative IndexNon-AMI <or= 5 NAIndeterminate > 5 <or= 4AMI > 5 > 4 CPK 95 U/L (Normal) Range: 26-192 Comments: Specimen slightly hemolyzed. Results may be affected. :19 TROP 0.18 ng/mL (Abnormal) Comments: Serial Specimen #1, #2 or #3? 1'TROP' Serial specimen #1, #2, #3, or #4: 1 Comments: TROPONIN-I EXPECTED VALUES <0.05 NEGATIVE0.06 - 0.59 AT RISK OF NC> OR = 0.60 SUGGEST NC 37-Bbh-236394:16 Lipid Panel (15853) Comments: PATIENT WAS FASTINGPERFORMED BY: [facility]6370 [facility] [id number] LDL/HDL Ratio 1.8 {ratio_units} (Normal) Range: 0.0-3.2 LDL Cholesterol Calc 115 mg/dL (Abnormal) Range: 0-99 VLDL Cholesterol Nicolás 20 mg/dL (Normal) Range: 5-40 Cholesterol, Total 200 mg/dL (Abnormal) Range: 100-199 HDL Cholesterol 65 mg/dL (Normal) Comments: According to ATP-III Guidelines, HDL-C >59 mg/dL is considered anegative risk factor for CHD. Triglycerides 101 mg/dL (Normal) Range: 0-149 25-Uvn-129546:16 Ferritin (28081) Comments: PATIENT WAS FASTINGPERFORMED BY: [place] 7699870 [facility] [id number] Ferritin, Serum 9 ng/mL (Abnormal) Range: 15-150 88-Hpd-937381:43 URINE MUKESH CULTURE-IDENTIFICATN Comments: PATIENT NOT FASTINGPERFORMED BY: [place] 7699870 [facility] [id number] Information: [id number] ([id number]) Result 1 MUG (Normal) Comments: Mixed urogenital flora10,000-25,000 colony forming units per mL Urine Final report (Normal) Culture,Comprehensive 26-Ncs-126941:16 METABOLIC PANEL, COMPREHENSIVE Comments: PATIENT WAS FASTINGPERFORMED BY: [place] 7699870 [facility] [id number] ([id number]) ALT (SGPT) 11 [iU]/L (Normal) Range: 0-32 AST (SGOT) 21 [iU]/L (Normal) Range: 0-40 Alkaline Phosphatase, S 66 [iU]/L (Normal) Range: 39-117 Bilirubin, Total 0.5 mg/dL (Normal) Range: 0.0-1.2 A/G Ratio 1.9 (Normal) Range: 1.1-2.5 Globulin, Total 2.3 g/dL (Normal) Range: 1.5-4.5 Albumin, Serum 4.3 g/dL (Normal) Range: 3.5-4.8 Protein, Total, Serum 6.6 g/dL (Normal) Range: 6.0-8.5 Calcium, Serum 9.1 mg/dL (Normal) Range: 8.6-10.2 Carbon Dioxide, Total 28 mmol/L (Normal) Range: 19-28 Chloride, Serum 100 mmol/L (Normal) Range: 97-108 Potassium, Serum 3.5 mmol/L (Normal) Range: 3.5-5.2 Sodium, Serum 141 mmol/L (Normal) Range: 134-144 BUN/Creatinine Ratio 12 (Normal) Range: 11-26 eGFR If Africn Am 62 mL/min/1.73 (Normal) eGFR If NonAfricn Am 54 mL/min/1.73 (Abnormal) Creatinine, Serum 1.03 mg/dL (Abnormal) Range: 0.57-1.00 BUN 12 mg/dL (Normal) Range: 8-27 Glucose, Serum 103 mg/dL (Abnormal) Range: 65-99 37-Wfj-549055:16 CBC WITH MANUAL DIFF Comments: PATIENT WAS FASTINGPERFORMED BY: [facility] Sxfxaz1286 [facility] [id number] Information: [id number] (27959) Immature Grans (Abs) 0.0 {x10E3/uL} (Normal) Range: 0.0-0.1 Immature Granulocytes 0 % (Normal) Range: 0-2 Baso (Absolute) 0.0 {x10E3/uL} (Normal) Range: 0.0-0.2 Eos (Absolute) 0.2 {x10E3/uL} (Normal) Range: 0.0-0.4 Monocytes(Absolute) 0.6 {x10E3/uL} (Normal) Range: 0.1-0.9 Lymphs (Absolute) 1.8 {x10E3/uL} (Normal) Range: 0.7-3.1 Neutrophils (Absolute) 4.9 {x10E3/uL} (Normal) Range: 1.4-7.0 Basos 1 % (Normal) Range: 0-3 Eos 2 % (Normal) Range: 0-5 Monocytes 8 % (Normal) Range: 4-12 Lymphs 24 % (Normal) Range: 14-46 Neutrophils 65 % (Normal) Range: 40-74 Platelets 322 {x10E3/uL} (Normal) Range: 155-379 RDW 15.4 % (Normal) Range: 12.3-15.4 MCHC 33.2 g/dL (Normal) Range: 31.5-35.7 MCH 26.8 pg (Normal) Range: 26.6-33.0 MCV 81 fL (Normal) Range: 79-97 Hematocrit 34.0 % (Normal) Range: 34.0-46.6 Hemoglobin 11.3 g/dL (Normal) Range: 11.1-15.9 RBC 4.22 {x10E6/uL} (Normal) Range: 3.77-5.28 WBC 7.5 {x10E3/uL} (Normal) Range: 3.4-10.8 51-Hpu-463264:30 Urinalysis, Office (37444) UA - LEUKOCYTE ESTERASE Small (Normal) UA - NITRITE Negative (Normal) URINE UROBILINGN BLANCO TIMED Normal mg/dL (Normal) UA - PROTEIN Negative mg/dL (Normal) UA - PH 8 (Abnormal) UA - BLOOD Negative (Normal) UA - SPECIFIC GRAVITY 1.015 (Normal) UA - KETONES Negative mg/dL (Normal) UA - BILIRUBIN Negative (Normal) UA - GLUCOSE Negative (Normal) 54-Cje-716460:42 Lipid Panel (46965) Comments: PATIENT WAS FASTINGPERFORMED BY: [facility]ea [facility] [id number] LDL/HDL Ratio 1.8 {ratio_units} (Normal) Range: 0.0-3.2 LDL Cholesterol Calc 116 mg/dL (Abnormal) Range: 0-99 VLDL Cholesterol Nicolás 24 mg/dL (Normal) Range: 5-40 HDL Cholesterol 64 mg/dL (Normal) Comments: According to ATP-III Guidelines, HDL-C >59 mg/dL is considered anegative risk factor for CHD. Triglycerides 118 mg/dL (Normal) Range: 0-149 Cholesterol, Total 204 mg/dL (Abnormal) Range: 100-199 14-Mzw-327388:42 CBC (Auto) (27909) Comments: PATIENT WAS FASTINGPERFORMED BY: CastleOSNew Bridge Medical CenterFihpng5761 [facility] [id number] Information: [id number] Platelets 292 {x10E3/uL} (Normal) Range: 155-379 RDW 15.7 % (Abnormal) Range: 12.3-15.4 MCH 27.6 pg (Normal) Range: 26.6-33.0 MCHC 32.1 g/dL (Normal) Range: 31.5-35.7 MCV 86 fL (Normal) Range: 79-97 Hematocrit 39.0 % (Normal) Range: 34.0-46.6 Hemoglobin 12.5 g/dL (Normal) Range: 11.1-15.9 RBC 4.53 {x10E6/uL} (Normal) Range: 3.77-5.28 WBC 6.4 {x10E3/uL} (Normal) Range: 3.4-10.8 61-Zga-615632:30 METABOLIC PANEL, COMPREHENSIVE Comments: PATIENT NOT FASTINGPERFORMED BY: [facility] Tzqpky2858 [facility] [id number] ([id number]) ALT (SGPT) 15 [iU]/L (Normal) Range: 0-32 AST (SGOT) 24 [iU]/L (Normal) Range: 0-40 Alkaline Phosphatase, S 68 [iU]/L (Normal) Range: 45-108 Bilirubin, Total 0.6 mg/dL (Normal) Range: 0.0-1.2 A/G Ratio 1.4 (Normal) Range: 1.1-2.5 Globulin, Total 2.9 g/dL (Normal) Range: 1.5-4.5 Albumin, Serum 4.2 g/dL (Normal) Range: 3.5-4.8 Protein, Total, Serum 7.1 g/dL (Normal) Range: 6.0-8.5 Calcium, Serum 9.4 mg/dL (Normal) Range: 8.6-10.2 Carbon Dioxide, Total 27 mmol/L (Normal) Range: 19-28 Chloride, Serum 98 mmol/L (Normal) Range: 97-108 Potassium, Serum 3.6 mmol/L (Normal) Range: 3.5-5.2 Sodium, Serum 139 mmol/L (Normal) Range: 134-144 BUN/Creatinine Ratio 15 (Normal) Range: 11-26 eGFR If Africn Am 72 mL/min/1.73 (Normal) eGFR If NonAfricn Am 62 mL/min/1.73 (Normal) Creatinine, Serum 0.92 mg/dL (Normal) Range: 0.57-1.00 BUN 14 mg/dL (Normal) Range: 8-27 Glucose, Serum 104 mg/dL (Abnormal) Range: 65-99 91-Mbo-907382:30 CBC with manual diff Comments: PATIENT NOT FASTINGPERFORMED BY: LabCoNew Bridge Medical CenterQcqiyu1675 Stephanie Velazquez [place] [id number] Information: [id number] (76039) Immature Grans (Abs) 0.0 {x10E3/uL} (Normal) Range: 0.0-0.1 Immature Granulocytes 0 % (Normal) Range: 0-2 Baso (Absolute) 0.0 {x10E3/uL} (Normal) Range: 0.0-0.2 Eos (Absolute) 0.2 {x10E3/uL} (Normal) Range: 0.0-0.4 Monocytes(Absolute) 0.7 {x10E3/uL} (Normal) Range: 0.1-0.9 Lymphs (Absolute) 1.7 {x10E3/uL} (Normal) Range: 0.7-3.1 Neutrophils (Absolute) 5.2 {x10E3/uL} (Normal) Range: 1.4-7.0 Basos 1 % (Normal) Range: 0-3 Eos 2 % (Normal) Range: 0-5 Monocytes 9 % (Normal) Range: 4-12 Lymphs 22 % (Normal) Range: 14-46 Neutrophils 66 % (Normal) Range: 40-74 Platelets 304 {x10E3/uL} (Normal) Range: 155-379 RDW 16.1 % (Abnormal) Range: 12.3-15.4 MCHC 32.9 g/dL (Normal) Range: 31.5-35.7 MCH 27.3 pg (Normal) Range: 26.6-33.0 MCV 83 fL (Normal) Range: 79-97 Hematocrit 35.9 % (Normal) Range: 34.0-46.6 Hemoglobin 11.8 g/dL (Normal) Range: 11.1-15.9 RBC 4.32 {x10E6/uL} (Normal) Range: 3.77-5.28 WBC 7.8 {x10E3/uL} (Normal) Range: 3.4-10.8 60-Onz-263989:30 Iron (97626) Comments: PATIENT NOT FASTINGPERFORMED BY: [facility]6370 [facility] [id number] Iron, Serum 61 ug/dL (Normal) Range: 35-155 43-Taf-626657:30 Ferritin (92644) Comments: PATIENT NOT FASTINGPERFORMED BY: [place] 7699870 [facility] [id number] Ferritin, Serum 12 ng/mL (Abnormal) Range: 15-150 6-Swe-539803:40 CBC (Auto) (92877) Comments: PATIENT NOT FASTINGPERFORMED BY: [address] [id number] Information: [id number] Platelets 307 {x10E3/uL} (Normal) Range: 140-415 RDW 21.0 % (Abnormal) Range: 12.3-15.4 MCHC 31.6 g/dL (Normal) Range: 31.5-35.7 MCH 25.3 pg (Abnormal) Range: 26.6-33.0 MCV 80 fL (Normal) Range: 79-97 Hematocrit 34.8 % (Normal) Range: 34.0-46.6 Hemoglobin 11.0 g/dL (Abnormal) Range: 11.1-15.9 RBC 4.35 {x10E6/uL} (Normal) Range: 3.77-5.28 WBC 7.4 {x10E3/uL} (Normal) Range: 4.0-10.5 4-Udi-177953:40 Iron (92148) Comments: PATIENT NOT FASTINGPERFORMED BY: [place] [id number] [facility] [id number] Iron, Serum 30 ug/dL (Abnormal) Range: 35-155 2-Nhg-982166:40 Ferritin (10859) Comments: PATIENT NOT FASTINGPERFORMED BY: [address] [id number] Ferritin, Serum 16 ng/mL (Normal) Range: 15-150 2-Zur-451258:11 CBC (Auto) (87538) Comments: PATIENT NOT FASTINGPERFORMED BY: [address] [id number] Information: [id number] Platelets 428 {x10E3/uL} Range: 140-415 (Abnormal) RDW 16.9 % (Abnormal) Range: 12.3-15.4 MCHC 30.7 g/dL (Abnormal) Range: 31.5-35.7 MCH 22.5 pg (Abnormal) Range: 26.6-33.0 MCV 73 fL (Abnormal) Range: 79-97 Hematocrit 31.6 % (Abnormal) Range: 34.0-46.6 Hemoglobin 9.7 g/dL (Abnormal) Range: 11.1-15.9 RBC 4.32 {x10E6/uL} Range: 3.77-5.28 (Normal) WBC 6.9 {x10E3/uL} Range: 4.0-10.5 (Normal) : H. pylori Stool Ag, EIA Negative (Normal) Comments: PERFORMED BY: [facility] [address] [id number] Information: [facility] 71-Azw-55730:47 CBC With Differential/Platelet Comments: PERFORMED BY: [facility] Riksvz5164 [facility] [id number] Immature Grans (Abs) 0.0 {x10E3/uL} (Normal) Range: 0.0-0.1 Immature Granulocytes 0 % (Normal) Range: 0-2 Baso (Absolute) 0.1 {x10E3/uL} (Normal) Range: 0.0-0.2 Eos (Absolute) 0.3 {x10E3/uL} (Normal) Range: 0.0-0.4 Monocytes(Absolute) 0.7 {x10E3/uL} (Normal) Range: 0.1-1.0 Lymphs (Absolute) 1.7 {x10E3/uL} (Normal) Range: 0.7-4.5 Neutrophils (Absolute) 4.7 {x10E3/uL} (Normal) Range: 1.8-7.8 Basos 1 % (Normal) Range: 0-3 Eos 4 % (Normal) Range: 0-7 Monocytes 10 % (Normal) Range: 4-13 Lymphs 23 % (Normal) Range: 14-46 Neutrophils 62 % (Normal) Range: 40-74 Platelets 367 {x10E3/uL} (Normal) Range: 140-415 RDW 16.2 % (Abnormal) Range: 12.3-15.4 MCHC 30.3 g/dL (Abnormal) Range: 31.5-35.7 MCH 23.5 pg (Abnormal) Range: 26.6-33.0 MCV 78 fL (Abnormal) Range: 79-97 Hematocrit 31.4 % (Abnormal) Range: 34.0-46.6 Hemoglobin 9.5 g/dL (Abnormal) Range: 11.1-15.9 RBC 4.05 {x10E6/uL} (Normal) Range: 3.77-5.28 WBC 7.5 {x10E3/uL} (Normal) Range: 4.0-10.5 :47 Comp. Metabolic Panel (14) Comments: PERFORMED BY: LabCoNew [facility] Medical CenterRvpaww2088 [facility] [id number] ALT (SGPT) 14 [iU]/L (Normal) Range: 0-32 AST (SGOT) 20 [iU]/L (Normal) Range: 0-40 Alkaline Phosphatase, 73 [iU]/L (Normal) Range: 25-165 S Bilirubin, Total 0.5 mg/dL (Normal) Range: 0.0-1.2 A/G Ratio 1.8 (Normal) Range: 1.1-2.5 Globulin, Total 2.4 g/dL (Normal) Range: 1.5-4.5 Albumin, Serum 4.2 g/dL (Normal) Range: 3.5-4.8 Protein, Total, Serum 6.6 g/dL (Normal) Range: 6.0-8.5 Calcium, Serum 9.1 mg/dL (Normal) Range: 8.6-10.2 Carbon Dioxide, Total 25 mmol/L (Normal) Range: 20-32 Chloride, Serum 100 mmol/L (Normal) Range: 97-108 Potassium, Serum 3.9 mmol/L (Normal) Range: 3.5-5.2 Sodium, Serum 141 mmol/L (Normal) Range: 134-144 BUN/Creatinine Ratio 18 (Normal) Range: 11-26 eGFR If Africn Am 71 mL/min/1.73 (Normal) eGFR If NonAfricn Am 61 mL/min/1.73 (Normal) Creatinine, Serum 0.94 mg/dL (Normal) Range: 0.57-1.00 BUN 17 mg/dL (Normal) Range: 8-27 Glucose, Serum 98 mg/dL (Normal) Range: 65-99 : Ferritin, Serum 6 ng/mL (Abnormal) Comments: PERFORMED BY: [facility]Ship[facility] CenterbQuahld3803 [facility] [id number] 47 Range: 13-150 : Iron, Serum 28 ug/dL (Abnormal) Comments: PERFORMED BY: [facility] [place] [address] [id number] 47 Range: 35-155 : LDH 203 [iU]/L (Normal) Comments: PERFORMED BY: [facility]otNew [facility] Medical CenterBrphla2247 [facility] [id number] 47 Range: 0-214 :47 Lipid Panel With LDL/HDL Comments: PERFORMED BY: [facility]obotNew [facility] Medical CenterDpdekl4548 [facility] [id number] Ratio LDL/HDL Ratio 1.6 {ratio_units} Range: 0.0-3.2 (Normal) LDL Cholesterol Calc 110 mg/dL (Abnormal) Range: 0-99 VLDL Cholesterol Nicolás 16 mg/dL (Normal) Range: 5-40 HDL Cholesterol 67 mg/dL (Normal) Comments: According to ATP-III Guidelines, HDL-C >59 mg/dL is considered anegative risk factor for CHD. Triglycerides 82 mg/dL (Normal) Range: 0-149 Cholesterol, Total 193 mg/dL (Normal) Range: 100-199 14-Jul-2012 Reticulocyte Count 1.8 % (Normal) Comments: PERFORMED BY: [facility] [place] [address] [id number] 8:47 Range: 0.6-2.6 4-Uea-853816:36 CHEST, PA AND LATERAL Radiology Report See Note (Normal) Comments: PROCEDURE: X-RAY CHEST REASON FOR EXAM: Female, 71 years old. Chest tightness. TECHNIQUE: PA and lateral views of the chest. COMPARISON: None. FINDINGS: The lungs are expanded. 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 No acute infiltration is seen. There is no demonstratedpleuralabnormality. Normal heart and pericardium. Normal mediastinum and erasmo. Normal visualized pulmo nary arteries.Normalvisualized aortic arch and descending thoracic aorta. There are diffuse degenerative changes of the visualized thoracic spine.The patient is status post bilateral mastectomy and bila teral axillarylymph node dissection. There is no demonstrated abnormality of the visualized soft tissuestructures of the upper abdomen. IMPRESSION:No acute abnormality is seen. Signed:Manolo Sierra M.D.November 27, 2011 at 7:18:04 AM [id number] Signed GP/GP If you are the referring physician and would like to consult with theradiologist who provided this interpretation, please co ntact Natasha Cade at [phone]. If this radiologist is unavailable, youwill be directed to another radiologist to assist. If you are a patient with a question regarding this report, pleas econtactyour referring physician directly. Professional Interpretation Provided By: [employer], Phone , These documents contain legally protected and confidential healthin formation intended only for the use of the individual or entity namedabove. If you are not the intended recipient, you are hereby notifiedthatany disclosure, copying, distribution, or other use of these documents isstrictly prohibited. If you have received this information in error,pleasenotify the sender immediately and arrange for the return or destructionofthese documents. Dictated on 11/26/11 1 147 by Salvatore Sierra MDranscribed on 11/27/11 0723 by ITS IMPORTSign by Manolo Sierra MD on 11/27/11723 Sign by: Manolo Sierra MD 41-Hkb-42060:35 MICROALBUMIN: CREATININE RATIO Comments: PATIENT WAS FASTINGPERFORMED BY: [facility]CoNew [facility] CenterWdwwmm9984 [facility] [id number] (81173) AND (27171) Microalb/Creat Ratio 7.6 {mg/g_creat} (Normal) Range: 0.0-30.0 Microalbumin, Urine 5.9 ug/mL (Normal) Range: 0.0-17.0 Creatinine, Urine 77.3 mg/dL (Normal) Range: 15.0-278.0 61-Fbz-054555:09 Comp. Metabolic Panel (14) Comments: PATIENT WAS FASTINGPERFORMED BY: [facility] [id number] ALT (SGPT) 16 [iU]/L (Normal) Range: 0-40 AST (SGOT) 23 [iU]/L (Normal) Range: 0-40 Alkaline Phosphatase, S 71 [iU]/L (Normal) Range: 25-165 Bilirubin, Total 0.5 mg/dL (Normal) Range: 0.0-1.2 A/G Ratio 1.7 (Normal) Range: 1.1-2.5 Globulin, Total 2.5 g/dL (Normal) Range: 1.5-4.5 Albumin, Serum 4.2 g/dL (Normal) Range: 3.5-4.8 Protein, Total, Serum 6.7 g/dL (Normal) Range: 6.0-8.5 Calcium, Serum 9.3 mg/dL (Normal) Range: 8.6-10.2 Carbon Dioxide, Total 27 mmol/L (Normal) Range: 20-32 Chloride, Serum 101 mmol/L (Normal) Range: 97-108 Potassium, Serum 3.9 mmol/L (Normal) Range: 3.5-5.2 Sodium, Serum 141 mmol/L (Normal) Range: 134-144 BUN/Creatinine Ratio 15 (Normal) Range: 11-26 eGFR If Africn Am 79 mL/min/1.73 (Normal) eGFR If NonAfricn Am 68 mL/min/1.73 (Normal) Creatinine, Serum 0.86 mg/dL (Normal) Range: 0.57-1.00 BUN 13 mg/dL (Normal) Range: 8-27 Glucose, Serum 94 mg/dL (Normal) Range: 65-99 :35 LIPID PANEL (95962) Comments: PATIENT WAS FASTINGPERFORMED BY: [facility] [id number] LDL/HDL Ratio 1.8 {ratio_units} (Normal) Range: 0.0-3.2 LDL Cholesterol Calc 112 mg/dL (Abnormal) Range: 0-99 VLDL Cholesterol Nicolás 28 mg/dL (Normal) Range: 5-40 HDL Cholesterol 62 mg/dL (Normal) Comments: According to ATP-III Guidelines, HDL-C >59 mg/dL is considered anegative risk factor for CHD. Triglycerides 139 mg/dL (Normal) Range: 0-149 Cholesterol, Total 202 mg/dL (Abnormal) Range: 100-199 19-Vla-61885:35 CBC WITH MANUAL DIFF Comments: PATIENT WAS FASTINGPERFORMED BY: [facility]CoChristian [facility] 9677070 [facility] [id number] Information: [id number] (73843) Immature Grans (Abs) 0.0 {x10E3/uL} (Normal) Range: 0.0-0.1 Immature Granulocytes 0 % (Normal) Range: 0-2 Baso (Absolute) 0.0 {x10E3/uL} (Normal) Range: 0.0-0.2 Eos (Absolute) 0.2 {x10E3/uL} (Normal) Range: 0.0-0.4 Monocytes(Absolute) 0.5 {x10E3/uL} (Normal) Range: 0.1-1.0 Lymphs (Absolute) 1.5 {x10E3/uL} (Normal) Range: 0.7-4.5 Neutrophils (Absolute) 4.6 {x10E3/uL} (Normal) Range: 1.8-7.8 Basos 0 % (Normal) Range: 0-3 Eos 3 % (Normal) Range: 0-7 Monocytes 8 % (Normal) Range: 4-13 Lymphs 22 % (Normal) Range: 14-46 Neutrophils 67 % (Normal) Range: 40-74 Platelets 348 {x10E3/uL} (Normal) Range: 140-415 RDW 15.0 % (Normal) Range: 12.3-15.4 MCHC 32.1 g/dL (Normal) Range: 31.5-35.7 MCH 26.3 pg (Abnormal) Range: 26.6-33.0 MCV 82 fL (Normal) Range: 79-97 Hematocrit 34.3 % (Normal) Range: 34.0-46.6 Hemoglobin 11.0 g/dL (Abnormal) Range: 11.1-15.9 RBC 4.19 {x10E6/uL} (Normal) Range: 3.77-5.28 WBC 6.9 {x10E3/uL} (Normal) Range: 4.0-10.5 :57 LIPID PANEL (55615) Comments: PATIENT WAS FASTINGPERFORMED BY: [facility] [id number] LDL/HDL Ratio 1.7 {ratio_units} (Normal) Range: 0.0-3.2 LDL Cholesterol Calc 107 mg/dL (Abnormal) Range: 0-99 VLDL Cholesterol Nicolás 25 mg/dL (Normal) Range: 5-40 HDL Cholesterol 63 mg/dL (Normal) Comments: According to ATP-III Guidelines, HDL-C >59 mg/dL is considered anegative risk factor for CHD. Triglycerides 125 mg/dL (Normal) Range: 0-149 Cholesterol, Total 195 mg/dL (Normal) Range: 100-199 :57 CBC WITH MANUAL DIFF Comments: PATIENT WAS FASTINGPERFORMED BY: [employer].sh6370 [facility] [id number] Information: [id number] ([id number]) Immature Grans (Abs) 0.0 {x10E3/uL} (Normal) Range: 0.0-0.1 Immature Granulocytes 0 % (Normal) Range: 0-2 Baso (Absolute) 0.1 {x10E3/uL} (Normal) Range: 0.0-0.2 Eos (Absolute) 0.3 {x10E3/uL} (Normal) Range: 0.0-0.4 Monocytes(Absolute) 0.7 {x10E3/uL} (Normal) Range: 0.1-1.0 Lymphs (Absolute) 1.8 {x10E3/uL} (Normal) Range: 0.7-4.5 Neutrophils (Absolute) 3.5 {x10E3/uL} (Normal) Range: 1.8-7.8 Basos 1 % (Normal) Range: 0-3 Eos 4 % (Normal) Range: 0-7 Monocytes 10 % (Normal) Range: 4-13 Lymphs 29 % (Normal) Range: 14-46 Neutrophils 56 % (Normal) Range: 40-74 Platelets 315 {x10E3/uL} (Normal) Range: 140-415 RDW 14.7 % (Normal) Range: 11.7-15.0 MCHC 32.6 g/dL (Normal) Range: 32.0-36.0 MCH 29.0 pg (Normal) Range: 27.0-34.0 MCV 89 fL (Normal) Range: 80-98 Hematocrit 38.9 % (Normal) Range: 34.0-44.0 Hemoglobin 12.7 g/dL (Normal) Range: 11.5-15.0 RBC 4.38 {x10E6/uL} (Normal) Range: 3.80-5.10 WBC 6.3 {x10E3/uL} (Normal) Range: 4.0-10.5 03-May-20119:28 CBC WITH MANUAL DIFF Comments: PATIENT WAS FASTINGPERFORMED BY: [facility] [id number] Information: [id number] ([id number]) Immature Grans (Abs) 0.0 {x10E3/uL} (Normal) Range: 0.0-0.1 Immature Granulocytes 0 % (Normal) Range: 0-2 Baso (Absolute) 0.0 {x10E3/uL} (Normal) Range: 0.0-0.2 Eos (Absolute) 0.2 {x10E3/uL} (Normal) Range: 0.0-0.4 Monocytes(Absolute) 0.4 {x10E3/uL} (Normal) Range: 0.1-1.0 Lymphs (Absolute) 1.5 {x10E3/uL} (Normal) Range: 0.7-4.5 Neutrophils (Absolute) 3.7 {x10E3/uL} (Normal) Range: 1.8-7.8 Basos 1 % (Normal) Range: 0-3 Eos 3 % (Normal) Range: 0-7 Monocytes 8 % (Normal) Range: 4-13 Lymphs 25 % (Normal) Range: 14-46 Neutrophils 63 % (Normal) Range: 40-74 Platelets 282 {x10E3/uL} (Normal) Range: 140-415 RDW 14.9 % (Normal) Range: 11.7-15.0 MCHC 32.9 g/dL (Normal) Range: 32.0-36.0 MCH 29.1 pg (Normal) Range: 27.0-34.0 MCV 89 fL (Normal) Range: 80-98 Hematocrit 39.2 % (Normal) Range: 34.0-44.0 Hemoglobin 12.9 g/dL (Normal) Range: 11.5-15.0 RBC 4.43 {x10E6/uL} (Normal) Range: 3.80-5.10 WBC 5.9 {x10E3/uL} (Normal) Range: 4.0-10.5 :28 LIPID PANEL ([id number]) Comments: PATIENT WAS FASTINGPERFORMED BY: [facility] [id number] LDL/HDL Ratio 2.0 {ratio_units} (Normal) Range: 0.0-3.2 LDL Cholesterol Calc 127 mg/dL (Abnormal) Range: 0-99 VLDL Cholesterol Nicolás 19 mg/dL (Normal) Range: 5-40 HDL Cholesterol 62 mg/dL (Normal) Comments: According to ATP-III Guidelines, HDL-C >59 mg/dL is considered anegative risk factor for CHD. Triglycerides 95 mg/dL (Normal) Range: 0-149 Cholesterol, Total 208 mg/dL (Abnormal) Range: 100-199 :28 METABOLIC PANEL, COMPREHENSIVE Comments: PATIENT WAS FASTINGPERFORMED BY: [id number] [facility] [id number] ([id number]) ALT (SGPT) 19 [iU]/L (Normal) Range: 0-40 AST (SGOT) 25 [iU]/L (Normal) Range: 0-40 Alkaline Phosphatase, S 69 [iU]/L (Normal) Range: 25-165 Bilirubin, Total 0.5 mg/dL (Normal) Range: 0.0-1.2 A/G Ratio 1.8 (Normal) Range: 1.1-2.5 Globulin, Total 2.4 g/dL (Normal) Range: 1.5-4.5 Albumin, Serum 4.2 g/dL (Normal) Range: 3.5-4.8 Protein, Total, Serum 6.6 g/dL (Normal) Range: 6.0-8.5 Calcium, Serum 9.3 mg/dL (Normal) Range: 8.6-10.2 Carbon Dioxide, Total 28 mmol/L (Normal) Range: 20-32 Chloride, Serum 101 mmol/L (Normal) Range: 97-108 Potassium, Serum 3.8 mmol/L (Normal) Range: 3.5-5.2 Sodium, Serum 141 mmol/L (Normal) Range: 134-144 Comments: Please note reference interval change BUN/Creatinine Ratio 16 (Normal) Range: 11-26 eGFR If Africn Am 77 mL/min/1.73 (Normal) Comments: Note: A persistent eGFR <60 mL/min/1.73 m2 (3 months or more) mayindicate chronic kidney disease. An eGFR >59 mL/min/1.73 m2 with anelevated urine protein also may indicate chronic kidney disease.Calculated using CKD-EPI formula. eGFR If NonAfricn Am 67 mL/min/1.73 (Normal) Creatinine, Serum 0.88 mg/dL (Normal) Range: 0.57-1.00 BUN 14 mg/dL (Normal) Range: 8-27 Glucose, Serum 92 mg/dL (Normal) Range: 65-99 :51 LIPID PANEL ([id number]) Comments: PATIENT WAS FASTINGPERFORMED BY: [facility] [id number] LDL Cholesterol Calc 105 mg/dL (Abnormal) Range: 0-99 LDL/HDL Ratio 1.8 {ratio_units} (Normal) Range: 0.0-3.2 VLDL Cholesterol Nicolás 34 mg/dL (Normal) Range: 5-40 HDL Cholesterol 57 mg/dL (Normal) Comments: According to ATP-III Guidelines, HDL-C >59 mg/dL is considered anegative risk factor for CHD. Triglycerides 171 mg/dL (Abnormal) Range: 0-149 Cholesterol, Total 196 mg/dL (Normal) Range: 100-199 :51 METABOLIC PANEL, Comments: PATIENT WAS FASTINGPERFORMED BY: [facility]70 [facility] [id number] Information: [id number] COMPREHENSIVE (91609) ALT (SGPT) 20 [iU]/L (Normal) Range: 0-40 AST (SGOT) 27 [iU]/L (Normal) Range: 0-40 Alkaline Phosphatase, S 69 [iU]/L (Normal) Range: 25-165 Bilirubin, Total 0.6 mg/dL (Normal) Range: 0.0-1.2 A/G Ratio 1.8 (Normal) Range: 1.1-2.5 Globulin, Total 2.4 g/dL (Normal) Range: 1.5-4.5 Albumin, Serum 4.4 g/dL (Normal) Range: 3.5-4.8 Protein, Total, Serum 6.8 g/dL (Normal) Range: 6.0-8.5 Calcium, Serum 9.2 mg/dL (Normal) Range: 8.6-10.2 Carbon Dioxide, Total 27 mmol/L (Normal) Range: 20-32 Chloride, Serum 100 mmol/L (Normal) Range: 97-108 Potassium, Serum 4.2 mmol/L (Normal) Range: 3.5-5.2 Sodium, Serum 142 mmol/L (Normal) Range: 135-145 BUN/Creatinine Ratio 14 (Normal) Range: 11-26 eGFR If Africn Am 75 mL/min/1.73 (Normal) Comments: Note: A persistent eGFR <60 mL/min/1.73 m2 (3 months or more) mayindicate chronic kidney disease. An eGFR >59 mL/min/1.73 m2 with anelevated urine protein also may indicate chronic kidney disease.Calculated using CKD-EPI formula. eGFR If NonAfricn Am 65 mL/min/1.73 (Normal) Creatinine, Serum 0.90 mg/dL (Normal) Range: 0.57-1.00 BUN 13 mg/dL (Normal) Range: 8-27 Glucose, Serum 85 mg/dL (Normal) Range: 65-99 31-Ezr-35158:00 Microscopic Examination Comments: PERFORMED BY: [facility]6370 [facility] [id number] Bacteria None seen (Normal) Crystal Type Amorphous Sediment (Normal) Crystals Present (Abnormal) Mucus Threads Present (Normal) Epithelial Cells (non renal) 0-10 {/hpf} (Normal) Range: 0 - 10 RBC None seen {/hpf} (Normal) Range: 0 - 3 WBC 0-5 {/hpf} (Normal) Range: 0 - 5 :22 Microscopic Examination Comments: PATIENT WAS FASTINGPERFORMED BY: [facility] Eyqjaf1792 [facility] [id number] Bacteria None seen (Normal) Mucus Threads Present (Normal) Crystal Type Calcium Oxalate (Normal) Crystals Present (Abnormal) Cast Type Hyaline casts (Normal) Casts Present {/lpf} (Abnormal) Epithelial Cells (non renal) 0-10 {/hpf} (Normal) Range: 0 - 10 RBC 0-3 {/hpf} (Normal) Range: 0 - 3 WBC 6-10 {/hpf} (Abnormal) Range: 0 - 5 :22 LIPID PANEL ([id number]) Comments: PATIENT WAS FASTINGPERFORMED BY: [facility] [id number] LDL Cholesterol Calc 119 mg/dL (Abnormal) Range: 0-99 LDL/HDL Ratio 2.4 {ratio_units} (Normal) Range: 0.0-3.2 VLDL Cholesterol Nicolás 33 mg/dL (Normal) Range: 5-40 HDL Cholesterol 49 mg/dL (Normal) Comments: According to ATP-III Guidelines, HDL-C >59 mg/dL is considered anegative risk factor for CHD. Triglycerides 164 mg/dL (Abnormal) Range: 0-149 Cholesterol, Total 201 mg/dL (Abnormal) Range: 100-199 :22 URINALYSIS (70667) Comments: PATIENT WAS FASTINGPERFORMED BY: [facility] [id number] Microscopic Examination See below: (Normal) Nitrite, Urine Negative (Normal) Urobilinogen,Semi-Qn 0.2 mg/dL (Normal) Range: 0.0-1.9 Bilirubin Negative (Normal) Occult Blood Negative (Normal) Glucose Negative (Normal) Ketones Negative (Normal) Protein Trace (Normal) WBC Esterase 2+ (Abnormal) Appearance Clear (Normal) pH 7.0 (Normal) Range: 5.0-7.5 Specific [place] 1.025 (Normal) Range: 1.005-1.030 Urine-Color Yellow (Normal) :22 CBC (Auto) (77896) Comments: PATIENT WAS FASTINGPERFORMED BY: [facility]6370 [facility] [id number] Platelets 274 {x10E3/uL} (Normal) Range: 140-415 RDW 14.5 % (Normal) Range: 11.7-15.0 Hematocrit 40.6 % (Normal) Range: 34.0-44.0 MCH 30.9 pg (Normal) Range: 27.0-34.0 MCHC 34.7 g/dL (Normal) Range: 32.0-36.0 MCV 89 fL (Normal) Range: 80-98 Hemoglobin 14.1 g/dL (Normal) Range: 11.5-15.0 RBC 4.57 {x10E6/uL} (Normal) Range: 3.80-5.10 WBC 7.0 {x10E3/uL} (Normal) Range: 4.0-10.5 :22 Metabolic Panel, Comments: PATIENT WAS FASTINGPERFORMED BY: [facility]CoNew Bridge Medical CenterFcyknx9348 [facility] [id number] Information: [id number] Comprehensive (59356) ALT (SGPT) 15 [iU]/L (Normal) Range: 0-40 Alkaline Phosphatase, S 66 [iU]/L (Normal) Range: 25-165 AST (SGOT) 25 [iU]/L (Normal) Range: 0-40 Bilirubin, Total 0.5 mg/dL (Normal) Range: 0.0-1.2 A/G Ratio 1.8 (Normal) Range: 1.1-2.5 Albumin, Serum 4.3 g/dL (Normal) Range: 3.6-4.8 Globulin, Total 2.4 g/dL (Normal) Range: 1.5-4.5 Protein, Total, Serum 6.7 g/dL (Normal) Range: 6.0-8.5 Calcium, Serum 9.5 mg/dL (Normal) Range: 8.6-10.2 Carbon Dioxide, Total 27 mmol/L (Normal) Range: 20-32 Chloride, Serum 100 mmol/L (Normal) Range: 97-108 Potassium, Serum 4.3 mmol/L (Normal) Range: 3.5-5.2 Sodium, Serum 140 mmol/L (Normal) Range: 135-145 BUN/Creatinine Ratio 20 (Normal) Range: 8-27 eGFR AfricanAmerican >59 mL/min/1.73 Comments: Note: Persistent reduction for 3 months or more in an eGFR<60 mL/min/1.73 m2 defines CKD. Patients with eGFR values>/=60 mL/min/1.73 m2 may also have CKD if evidence of persistentproteinuria is (Normal) present. Additional information may be found [email or web address]. eGFR >59 mL/min/1.73 (Normal) BUN 17 mg/dL (Normal) Range: 5-26 Creatinine, Serum 0.87 mg/dL (Normal) Range: 0.57-1.00 Glucose, Serum 91 mg/dL (Normal) Range: 65-99 88-Pvg-291616:04 CBC With Differential/Platelet Comments: A courtesy copy of this report has been sent [phone].PATIENT WAS FASTINGClinical Information: [id number] PERFORMED BY: [facility]6370 [facility] [id number] Baso (Absolute) 0.0 {x10E3/uL} (Normal) Range: 0.0-0.2 Basos 0 % (Normal) Range: 0-3 Eos 3 % (Normal) Range: 0-7 Eos (Absolute) 0.2 {x10E3/uL} (Normal) Range: 0.0-0.4 Hematocrit 41.5 % (Normal) Range: 34.0-44.0 Hemoglobin 14.1 g/dL (Normal) Range: 11.5-15.0 Lymphs 24 % (Normal) Range: 14-46 Lymphs (Absolute) 1.6 {x10E3/uL} (Normal) Range: 0.7-4.5 MCH 31.5 pg (Normal) Range: 27.0-34.0 MCHC 33.9 g/dL (Normal) Range: 32.0-36.0 MCV 93 fL (Normal) Range: 80-98 Monocytes 6 % (Normal) Range: 4-13 Monocytes(Absolute) 0.4 {x10E3/uL} (Normal) Range: 0.1-1.0 Neutrophils 67 % (Normal) Range: 40-74 Neutrophils (Absolute) 4.4 {x10E3/uL} (Normal) Range: 1.8-7.8 Platelets 244 {x10E3/uL} (Normal) Range: 140-415 RBC 4.47 {x10E6/uL} (Normal) Range: 3.80-5.10 RDW 15.7 % (Abnormal) Range: 11.7-15.0 WBC 6.6 {x10E3/uL} (Normal) Range: 4.0-10.5 89-Hfx-011138:04 Comp. Metabolic Panel (14) Comments: A courtesy copy of this report has been sent [phone].PATIENT WAS FASTINGPERFORMED BY: [facility] Lmuwdb5867 [facility] [id number] A/G Ratio 1.6 (Normal) Range: 1.1-2.5 Albumin, Serum 4.4 g/dL (Normal) Range: 3.6-4.8 Alkaline Phosphatase, S 73 [iU]/L (Normal) Range: 25-165 ALT (SGPT) 21 [iU]/L (Normal) Range: 0-40 AST (SGOT) 29 [iU]/L (Normal) Range: 0-40 Bilirubin, Total 0.8 mg/dL (Normal) Range: 0.1-1.2 BUN 12 mg/dL (Normal) Range: 5-26 BUN/Creatinine Ratio 13 (Normal) Range: 8-27 Calcium, Serum 9.6 mg/dL (Normal) Range: 8.5-10.6 Carbon Dioxide, Total 32 mmol/L (Normal) Range: 20-32 Chloride, Serum 102 mmol/L Range: 97-108 (Normal) Creatinine, Serum 0.95 mg/dL Range: 0.57-1.00 (Normal) eGFR 58 mL/min/1.73 (Abnormal) eGFR AfricanAmerican >59 mL/min/1.73 Comments: Note: Persistent reduction for 3 months or more in an eGFR<60 mL/min/1.73 m2 defines CKD. Patients with eGFR values>/=60 mL/min/1.73 m2 may also have CKD if evidence of persistentproteinuria is (Normal) present. Additional information may be found [email or web address]. Globulin, Total 2.7 g/dL (Normal) Range: 1.5-4.5 Glucose, Serum 87 mg/dL (Normal) Range: 65-99 Potassium, Serum 4.4 mmol/L Range: 3.5-5.2 (Normal) Protein, Total, Serum 7.1 g/dL (Normal) Range: 6.0-8.5 Sodium, Serum 142 mmol/L Range: 135-145 (Normal) 21-Feb-2009 LDH 198 [iU]/L Comments: A courtesy copy of this report has been sent [phone].PATIENT WAS FASTINGPERFORMED BY: [employer] Iwuryi9109 [facility] [id number] 11:04 (Normal) Range: 100-250 03-Dri-046665:04 Lipid Panel With LDL/HDL Comments: A courtesy copy of this report has been sent [phone].PATIENT WAS FASTINGPERFORMED BY: [employer] Zjoskc9813 [facility] [id number] Ratio Cholesterol, Total 210 mg/dL (Abnormal) Range: 100-199 HDL Cholesterol 57 mg/dL (Normal) Comments: According to ATP-III Guidelines, HDL-C >59 mg/dL is considered anegative risk factor for CHD. LDL Cholesterol Calc 129 mg/dL (Abnormal) Range: 0-99 LDL/HDL Ratio 2.3 {ratio_units} (Normal) Range: 0.0-3.2 Triglycerides 118 mg/dL (Normal) Range: 0-149 VLDL Cholesterol Nicolás 24 mg/dL (Normal) Range: 5-40 21-Uln-590044:04 Microscopic Examination Comments: A courtesy copy of this report has been sent [phone].PATIENT WAS FASTINGPERFORMED BY: [facility]obotNew Bridge Medical CenterUadbqa8775 [facility] [id number] Bacteria None seen (Normal) Cast Type Hyaline casts (Normal) Casts Present {/lpf} (Abnormal) Crystal Type Calcium Oxalate (Normal) Comments: Amorphous Sediment Crystals Present (Abnormal) Epithelial Cells (non renal) 0-10 {/hpf} (Normal) Range: 0 - 10 Mucus Threads Present (Normal) RBC None seen {/hpf} (Normal) Range: 0 - 3 WBC 0-5 {/hpf} (Normal) Range: 0 - 5 50-Zmm-748430:04 Urinalysis, Routine Comments: A courtesy copy of this report has been sent [phone].PATIENT WAS FASTINGPERFORMED BY: [facility] [id number] Appearance Cloudy (Abnormal) Bilirubin Negative (Normal) Glucose Negative (Normal) Ketones Negative (Normal) Microscopic Examination See below: (Normal) Nitrite, Urine Negative (Normal) Occult Blood Negative (Normal) pH 7.0 (Normal) Range: 5.0-7.5 Protein 1+ (Abnormal) Specific [place] 1.023 (Normal) Range: 1.005-1.030 Urine-Color Yellow (Normal) Urobilinogen,Semi-Qn 0.2 mg/dL (Normal) Range: 0.0-1.9 WBC Esterase 1+ (Abnormal) 93-Owi-39966:00 URINALYSIS W/O MICRO (99320) Comments: PERFORMED BY: [employer] Vscpbb3974 [facility] [id number] Bilirubin Negative (Normal) Microscopic Examination See below: (Normal) Nitrite, Urine Negative (Normal) Occult Blood Negative (Normal) Urobilinogen,Semi-Qn 0.2 mg/dL (Normal) Range: 0.0-1.9 Glucose Negative (Normal) Ketones Negative (Normal) Protein Trace (Normal) WBC Esterase Trace (Abnormal) Appearance Cloudy (Abnormal) pH 7.0 (Normal) Range: 5.0-7.5 Specific [place] 1.021 (Normal) Range: 1.005-1.030 Urine-Color Yellow (Normal) :00 METABOLIC PANEL, COMPREHENSIVE Comments: PERFORMED BY: [facility]6370 [facility] [id number] ([id number]) A/G Ratio 1.6 (Normal) Range: 1.1-2.5 Albumin, Serum 4.2 g/dL (Normal) Range: 3.6-4.8 Alkaline Phosphatase, S 65 [iU]/L (Normal) Range: 25-165 ALT (SGPT) 18 [iU]/L (Normal) Range: 0-40 AST (SGOT) 24 [iU]/L (Normal) Range: 0-40 Bilirubin, Total 0.7 mg/dL (Normal) Range: 0.0-1.2 Globulin, Total 2.6 g/dL (Normal) Range: 1.5-4.5 Calcium, Serum 9.1 mg/dL (Normal) Range: 8.6-10.2 Carbon Dioxide, Total 29 mmol/L (Normal) Range: 20-32 Chloride, Serum 102 mmol/L (Normal) Range: 97-108 Potassium, Serum 3.9 mmol/L (Normal) Range: 3.5-5.2 Protein, Total, Serum 6.8 g/dL (Normal) Range: 6.0-8.5 BUN/Creatinine Ratio 14 (Normal) Range: 11-26 Comments: Please note reference interval change eGFR AfricanAmerican >59 mL/min/1.73 Comments: Note: Persistent reduction for 3 months or more in an eGFR<60 mL/min/1.73 m2 defines CKD. Patients with eGFR values>/=60 mL/min/1.73 m2 may also have CKD if evidence of persistentproteinuria is (Normal) present. Additional information may be found [email or web address]. Sodium, Serum 143 mmol/L (Normal) Range: 135-145 BUN 12 mg/dL (Normal) Range: 8-27 Comments: Please note reference interval change Creatinine, Serum 0.87 mg/dL (Normal) Range: 0.57-1.00 eGFR >59 mL/min/1.73 (Normal) Glucose, Serum 84 mg/dL (Normal) Range: 65-99 42-Fgk-09560:00 LIPID PANEL (50340) Comments: PERFORMED BY: [facility]6370 [facility] [id number] HDL Cholesterol 52 mg/dL (Normal) Comments: According to ATP-III Guidelines, HDL-C >59 mg/dL is considered anegative risk factor for CHD. LDL Cholesterol Calc 121 mg/dL (Abnormal) Range: 0-99 LDL/HDL Ratio 2.3 {ratio_units} (Normal) Range: 0.0-3.2 VLDL Cholesterol Nicolás 29 mg/dL (Normal) Range: 5-40 Cholesterol, Total 202 mg/dL (Abnormal) Range: 100-199 Triglycerides 143 mg/dL (Normal) Range: 0-149 71-Mgu-44985:00 CBC WITH MANUAL DIFF (73722) Comments: send copy to Dr. sav carroll and yakov; PERFORMED BY: [facility] [facility] NetworkNov[facility] [id number] Baso (Absolute) 0.0 {x10E3/uL} (Normal) Range: 0.0-0.2 Immature Grans (Abs) 0.0 {x10E3/uL} (Normal) Range: 0.0-0.1 Immature Granulocytes 0 % (Normal) Range: 0-1 Eos (Absolute) 0.2 {x10E3/uL} (Normal) Range: 0.0-0.4 Lymphs (Absolute) 1.6 {x10E3/uL} (Normal) Range: 0.7-4.5 Monocytes(Absolute) 0.6 {x10E3/uL} (Normal) Range: 0.1-1.0 Neutrophils (Absolute) 3.6 {x10E3/uL} (Normal) Range: 1.8-7.8 Basos 1 % (Normal) Range: 0-3 Eos 3 % (Normal) Range: 0-7 Lymphs 27 % (Normal) Range: 14-46 MCHC 32.6 g/dL (Normal) Range: 32.0-36.0 Monocytes 10 % (Normal) Range: 4-13 Neutrophils 59 % (Normal) Range: 40-74 Platelets 265 {x10E3/uL} (Normal) Range: 140-415 RDW 14.7 % (Normal) Range: 11.7-15.0 MCH 30.4 pg (Normal) Range: 27.0-34.0 MCV 93 fL (Normal) Range: 80-98 Hematocrit 41.4 % (Normal) Range: 34.0-44.0 Hemoglobin 13.5 g/dL (Normal) Range: 11.5-15.0 RBC 4.44 {x10E6/uL} (Normal) Range: 3.80-5.10 WBC 6.0 {x10E3/uL} (Normal) Range: 4.0-10.5 45-Fcp-75667:43 Metabolic Panel, Comprehensive Comments: in three months (approximately); PATIENT WAS FASTINGClinical Information: ADD DRAW FEE [id number] ADD J [id number] PERFORMED BY: Breitbart News NetworkDublin [place] [address] [id number] (10418) A/G Ratio 1.7 (Normal) Range: 1.1-2.5 Albumin, Serum 4.3 g/dL (Normal) Range: 3.6-4.8 Alkaline Phosphatase, S 78 [iU]/L (Normal) Range: 25-165 ALT (SGPT) 20 [iU]/L (Normal) Range: 0-40 AST (SGOT) 28 [iU]/L (Normal) Range: 0-40 Bilirubin, Total 0.8 mg/dL (Normal) Range: 0.1-1.2 BUN 10 mg/dL (Normal) Range: 5-26 BUN/Creatinine Ratio 11 (Normal) Range: 8-27 Calcium, Serum 9.7 mg/dL (Normal) Range: 8.5-10.6 Carbon Dioxide, Total 28 mmol/L (Normal) Range: 20-32 Chloride, Serum 103 mmol/L (Normal) Range: 97-108 Creatinine, Serum 0.91 mg/dL (Normal) Range: 0.57-1.00 eGFR >59 mL/min/1.73 (Normal) eGFR AfricanAmerican >59 mL/min/1.73 Comments: Note: Persistent reduction for 3 months or more in an eGFR<60 mL/min/1.73 m2 defines CKD. Patients with eGFR values>/=60 mL/min/1.73 m2 may also have CKD if evidence of persistentproteinuria is (Normal) present. Additional information may be found [email or web address]. Globulin, Total 2.6 g/dL (Normal) Range: 1.5-4.5 Glucose, Serum 97 mg/dL (Normal) Range: 65-99 Potassium, Serum 4.3 mmol/L (Normal) Range: 3.5-5.2 Protein, Total, Serum 6.9 g/dL (Normal) Range: 6.0-8.5 Sodium, Serum 142 mmol/L (Normal) Range: 135-145 09-Icw-05470:43 Lipid Panel (36765) Comments: PATIENT WAS FASTINGPERFORMED BY: JOHNATHON [facility] Aeehxw7226 [facility] [id number] Cholesterol, Total 207 mg/dL (Abnormal) Range: 100-199 Comment SPRCS (Normal) Comments: If initial LDL-cholesterol result is >100 mg/dL, assess forrisk factors. HDL Cholesterol 55 mg/dL (Normal) Comments: According to ATP-III Guidelines, HDL-C >59 mg/dL is considered anegative risk factor for CHD. LDL Cholesterol Calc 130 mg/dL (Abnormal) Range: 0-99 LDL/HDL Ratio 2.4 {ratio_units} (Normal) Range: 0.0-3.2 Triglycerides 110 mg/dL (Normal) Range: 0-149 VLDL Cholesterol Nicolás 22 mg/dL (Normal) Range: 5-40 : MICROALBUMIN: CREATININE RATIO Comments: PATIENT WAS FASTINGPERFORMED BY: [facility]OSNew Bridge Medical CenterXadqww9861 [facility] [id number] ([id number]) AND (32860) Creatinine, Urine 224.8 mg/dL (Normal) Range: 15.0-278.0 Microalb/Creat Ratio 3.4 {ug/mg_creat} (Normal) Range: 0.0-30.0 Microalbum.,U,Random 7.7 ug/mL (Normal) Range: 0.0-17.0 : METABOLIC PANEL, COMPREHENSIVE Comments: PATIENT WAS FASTINGPERFORMED BY: [employer]6370 [facility] [id number] (26119) A/G Ratio 1.6 (Normal) Range: 1.1-2.5 Albumin, Serum 4.1 g/dL (Normal) Range: 3.6-4.8 Alkaline Phosphatase, S 72 [iU]/L (Normal) Range: 25-165 ALT (SGPT) 17 [iU]/L (Normal) Range: 0-40 AST (SGOT) 24 [iU]/L (Normal) Range: 0-40 Bilirubin, Total 0.4 mg/dL (Normal) Range: 0.1-1.2 BUN 12 mg/dL (Normal) Range: 5-26 BUN/Creatinine Ratio 13 (Normal) Range: 8-27 Calcium, Serum 9.6 mg/dL (Normal) Range: 8.5-10.6 Carbon Dioxide, Total 32 mmol/L (Normal) Range: 20-32 Chloride, Serum 102 mmol/L (Normal) Range: 97-108 Creatinine, Serum 0.90 mg/dL (Normal) Range: 0.57-1.00 Globulin, Total 2.5 g/dL (Normal) Range: 1.5-4.5 Glom Filt Rate, Est >59 mL/min/1.73 (Normal) Glucose, Serum 89 mg/dL (Normal) Range: 65-99 If -Canadian >59 mL/min/1.73 Comments: Note: Persistent reduction for 3 months or more in an eGFR<60 mL/min/1.73 m2 defines CKD. Patients with eGFR values>/=60 mL/min/1.73 m2 may also have CKD if evidence of persistentproteinur ia is (Normal) present. Additional information may be found [email or web address]. Potassium, Serum 4.8 mmol/L (Normal) Range: 3.5-5.2 Protein, Total, Serum 6.6 g/dL (Normal) Range: 6.0-8.5 Sodium, Serum 143 mmol/L (Normal) Range: 135-145 :00 LIPID PANEL (95718) Comments: PATIENT WAS FASTINGPERFORMED BY: [employer] [place] [id number] Cholesterol, Total 208 mg/dL (Abnormal) Range: 100-199 Comment SPRCS (Normal) Comments: If initial LDL-cholesterol result is >100 mg/dL, assess forrisk factors. HDL Cholesterol 46 mg/dL (Normal) Comments: According to ATP-III Guidelines, HDL-C >59 mg/dL is considered anegative risk factor for CHD. LDL Cholesterol Calc 118 mg/dL (Abnormal) Range: 0-99 LDL/HDL Ratio 2.6 {ratio_units} (Normal) Range: 0.0-3.2 Triglycerides 222 mg/dL (Abnormal) Range: 0-149 VLDL Cholesterol Nicolás 44 mg/dL (Abnormal) Range: 5-40 :00 CBC WITH MANUAL DIFF (44514) Comments: PATIENT WAS FASTINGClinical Information: ADD DRAW FEE [id number] ADD J [id number] PERFORMED BY: [facility] [id number] Baso (Absolute) 0.1 {x10E3/uL} (Normal) Range: 0.0-0.2 Basos 1 % (Normal) Range: 0-3 Eos 3 % (Normal) Range: 0-7 Eos (Absolute) 0.2 {x10E3/uL} (Normal) Range: 0.0-0.4 Hematocrit 39.8 % (Normal) Range: 34.0-44.0 Hemoglobin 13.4 g/dL (Normal) Range: 11.5-15.0 Lymphs 23 % (Normal) Range: 14-46 Lymphs (Absolute) 1.6 {x10E3/uL} (Normal) Range: 0.7-4.5 MCH 31.1 pg (Normal) Range: 27.0-34.0 MCHC 33.8 g/dL (Normal) Range: 32.0-36.0 MCV 92 fL (Normal) Range: 80-98 Monocytes 8 % (Normal) Range: 4-13 Monocytes(Absolute) 0.6 {x10E3/uL} (Normal) Range: 0.1-1.0 Neutrophils 65 % (Normal) Range: 40-74 Neutrophils (Absolute) 4.5 {x10E3/uL} (Normal) Range: 1.8-7.8 Platelets 266 {x10E3/uL} (Normal) Range: 140-415 RBC 4.33 {x10E6/uL} (Normal) Range: 3.80-5.10 RDW 14.9 % (Normal) Range: 11.7-15.0 WBC 6.9 {x10E3/uL} (Normal) Range: 4.0-10.5 :01 LIPID CHOL 196 mg/dL (Normal) Comments: <200 mg/dL Desirable 200-240 mg/dL Borderline >240 mg/dL High Risk HDL 55 mg/dL (Normal) Comments: Reference Range HDL <40 mg/dL Low HDL Cholesterol HDL >or= 60 mg/dL High HDL Cholesterol LDL 123 mg/dL (Normal) Range: 0-130 TRIG 91 mg/dL (Normal) Comments: Serum Triglycerides Reference Interval Normal <150 mg/dL Borderline high 150 - 199 mg/dL High 200 - 499 mg/dL Very High > or = 500 mg/dL VLDL 18 mg/dL (Normal) Range: 5-40 :01 LIVER ALB 4.0 g/dL (Normal) Range: 3.4-5.0 ALK P 78 U/L (Normal) Range: 50-136 ALT 37 U/L (Normal) Range: 30-65 AST 22 U/L (Normal) Range: 15-37 D BILI 0.08 mg/dL (Normal) Range: 0.00-0.30 T BILI 0.43 mg/dL (Normal) Range: 0.00-1.00 T PROT 7.3 g/dL (Normal) Range: 6.4-8.2 :16 CBCD BASO% 0.4 % (Normal) Range: 0-1 EO% 3.9 % (Normal) Range: 0-5 HCT 38.3 % (Normal) Range: 37-47 HGB 12.9 g/dL (Normal) Range: 12.0-16.0 LY% 27.0 % (Normal) Range: 19-41 MCH 30.0 pg (Normal) Range: 27.0-32.0 MCHC 33.7 g/dL (Normal) Range: 32-36 MCV 88.9 fL (Normal) Range: 81-99 MONO% 8.1 % (Normal) Range: 0-10 MPV 8.6 fL (Normal) Range: 6.5-12.0 NEUT% 60.6 % (Normal) Range: 47-70 PLT 305 K/mm3 (Normal) Range: 150-450 RBC 4.31 {M/mm3} (Normal) Range: 4.2-5.4 RDW 14.9 % (Abnormal) Range: 11.6-14.6 WBC 7.0 K/mm3 (Normal) Range: 4.4-11.0 :16 COMP METABOLIC A/G 1.1 {RATIO} (Normal) Range: 0.9-2.4 ALB 3.6 g/dL (Normal) Range: 3.4-5.0 ALK P 66 U/L (Normal) Range: 50-136 ALT 35 [iU]/L (Normal) Range: 30-65 AST 20 U/L (Normal) Range: 15-37 BUN 15 mg/dL (Normal) Range: 7-18 BUN/CRE 16.7 {RATIO} (Normal) Range: 10-20 CA 8.6 mg/dL (Normal) Range: 8.5-10.1 CL 103 mmol/L (Normal) Range: 98-107 CO2 29.3 mmol/L (Normal) Range: 21.0-32.0 CREAT,SERUM 0.9 mg/dL (Normal) Range: 0.6-1.0 GAP 7 (Normal) Range: 5-15 GLOB 3.4 g/dL (Normal) Range: 2.7-4.2 GLU 94 mg/dL (Normal) Range: 70-110 K 4.0 mmol/L (Normal) Range: 3.5-5.1 NA 139 mmol/L (Normal) Range: 136-145 T BILI 0.41 mg/dL (Normal) Range: 0.00-1.00 T PROT 7.0 g/dL (Normal) Range: 6.4-8.2 :16 LIPID CHOL 182 mg/dL (Normal) Comments: <200 mg/dL Desirable 200-240 mg/dL Borderline >240 mg/dL High Risk HDL 39 mg/dL (Normal) Comments: Reference Range HDL <40 mg/dL Low HDL Cholesterol HDL >or= 60 mg/dL High HDL Cholesterol LDL 111 mg/dL (Normal) Range: 0-130 TRIG 162 mg/dL (Normal) Comments: Serum Triglycerides Reference Interval Normal <150 mg/dL Borderline high 150 - 199 mg/dL High 200 - 499 mg/dL Very High > or = 500 mg/dL VLDL 32 mg/dL (Normal) Range: 5-40 :22 LIPID CHOL 196 mg/dL (Normal) Comments: <200 mg/dL Desirable 200-240 mg/dL Borderline >240 mg/dL High Risk HDL 52 mg/dL (Normal) Comments: Reference Range HDL <40 mg/dL Low HDL Cholesterol HDL >or= 60 mg/dL High HDL Cholesterol LDL 120 mg/dL (Normal) Range: 0-130 TRIG 119 mg/dL (Normal) Comments: Serum Triglycerides Reference Interval Normal <150 mg/dL Borderline high 150 - 199 mg/dL High 200 - 499 mg/dL Very High > or = 500 mg/dL VLDL 24 mg/dL (Normal) Range: 5-40 :41 L/S SPINE,MIN 4 VIEWS Radiology Report See Note (Normal) Comments: Exam Number: [id number] FIVE VIEW LUMBAR SPINE AP, LATERAL, BOTH OBLIQUES AND CONED DOWN L5-S1 HISTORYLow back pain. There is a mild scoliosis with convexity to the left. Pedicles areintact. SI joints are unremarkable as demonstrated. There aremoderate sclerotic changes in the L4-5 and L5-S1 facet articulations. There is moderate calcification in the abdominal aorta. Ultrasound orCT suggested to ev aluate the abdominal aorta in view of the patient'vera and amount of calcification present. I do not see any aneurysmaldilatation. IMPRESSIONDegenerative changes, lower lumbar spine. If patient pers ists inbeing symptomatic, MR scan is suggested to evaluate possible nerveroot irritation. Reported By: FREDI QUICK M.D. :30 COMP METABOLIC A/G 1.1 {RATIO} (Normal) Range: 0.9-2.4 ALB 3.7 g/dL (Normal) Range: 3.4-5.0 ALK P 70 U/L (Normal) Range: 50-136 ALT 34 [iU]/L (Normal) Range: 30-65 AST 22 U/L (Normal) Range: 15-37 BUN 13 mg/dL (Normal) Range: 7-18 BUN/CRE 16.3 {RATIO} (Normal) Range: 10-20 CA 8.5 mg/dL (Normal) Range: 8.5-10.1 CL 102 mmol/L (Normal) Range: 98-107 CO2 29.0 mmol/L (Normal) Range: 21.0-32.0 Comments: Please Note Reference Interval Change CREAT,SERUM 0.8 mg/dL (Normal) Range: 0.6-1.0 GAP 10 (Normal) Range: 5-15 GLOB 3.3 g/dL (Normal) Range: 2.7-4.2 Comments: Please Note Reference Interval Change GLU 88 mg/dL (Normal) Range: 70-110 K 3.7 mmol/L (Normal) Range: 3.5-5.1 NA 141 mmol/L (Normal) Range: 136-145 T BILI 0.50 mg/dL (Normal) Range: 0.00-1.00 T PROT 7.0 g/dL (Normal) Range: 6.4-8.2 :30 LIPID CHOL 188 mg/dL (Normal) Comments: <200 mg/dL Desirable 200-240 mg/dL Borderline >240 mg/dL High Risk HDL 45 mg/dL (Normal) Comments: Reference Range HDL <40 mg/dL Low HDL Cholesterol HDL >or= 60 mg/dL High HDL Cholesterol LDL 115 mg/dL (Normal) Range: 0-130 TRIG 140 mg/dL (Normal) Comments: Serum Triglycerides Reference Interval Normal <150 mg/dL Borderline high 150 - 199 mg/dL High 200 - 499 mg/dL Very High > or = 500 mg/dL VLDL 28 mg/dL (Normal) Range: 40 :04 LIPID CHOL 187 mg/dL (Normal) Comments: <200 mg/dL Desirable 200-240 mg/dL Borderline >240 mg/dL High Risk HDL 43 mg/dL (Normal) Comments: Reference Range HDL <40 mg/dL Low HDL Cholesterol HDL >or= 60 mg/dL High HDL Cholesterol LDL 115 mg/dL (Normal) Range: 0-130 TRIG 144 mg/dL (Normal) Comments: Serum Triglycerides Reference Interval Normal <150 mg/dL Borderline high 150 - 199 mg/dL High 200 - 499 mg/dL Very High > or = 500 mg/dL VLDL 29 mg/dL (Normal) Range: 40 :04 LIVER ALB 3.7 g/dL (Normal) Range: 3.4-5.0 ALK P 64 U/L (Normal) Range: 50-136 ALT 37 [iU]/L (Normal) Range: 30-65 AST 24 U/L (Normal) Range: 15-37 D BILI 0.06 mg/dL (Normal) Range: 0.00-0.30 T BILI 0.34 mg/dL (Normal) Range: 0.00-1.00 T PROT 6.7 g/dL (Normal) Range: 6.4-8.2 :56 BMP BUN 13 mg/dL (Normal) Range: 7-18 BUN/CRE 14.4 {RATIO} (Normal) Range: 10-20 CA 9.2 mg/dL (Normal) Range: 8.5-10.1 CL 104 mmol/L (Normal) Range: 98-107 CO2 32.7 mmol/L (Abnormal) Range: 22.0-29.0 CREAT,SERUM 0.9 mg/dL (Normal) Range: 0.6-1.0 GAP 5 (Normal) Range: 5-15 GLU 90 mg/dL (Normal) Range: 70-110 K 3.9 mmol/L (Normal) Range: 3.5-5.1 NA 142 mmol/L (Normal) Range: 136-145 :56 CBCD,SMEAR DIFF CELLS COUNTED 100 (Normal) EOS 3 % (Normal) Range: 0-5 HCT 40.6 % (Normal) Range: 37-47 HGB 13.9 g/dL (Normal) Range: 12.0-16.0 LYMPH 19 % (Normal) Range: 19-41 MCH 31.0 pg (Normal) Range: 27.0-32.0 MCHC 34.3 g/dL (Normal) Range: 32-36 MCV 90.6 fL (Normal) Range: 81-99 PLT 271 K/mm3 (Normal) Range: 150-450 PLT EST SeeNote (Normal) Comments: Result: ADEQUATE RBC 4.49 {M/mm3} (Normal) Range: 4.2-5.4 RDW 14.5 % (Normal) Range: 11.6-14.6 RED CELL MORPH SeeNote {NORMAL} (Normal) Comments: Result: NORM C&C SEGS 78 % (Abnormal) Range: 47-70 WBC 9.1 K/mm3 (Normal) Range: 4.4-11.0 :56 COMPLETE UA BACTERIA 0 SEEN {/hpf} (Normal) BILIRUBIN URINE SeeNote (Normal) Comments: Result: NEGATIVE CLARITY CLEAR (Normal) COLOR YELLOW (Normal) GLUCOSE, UR SeeNote (Normal) Comments: Result: NEGATIVE KETONE UR SeeNote mg/dL (Normal) Comments: Result: NEGATIVE LEUK ESTERASE 1+ (Abnormal) MUCUS, URINE 0 SEEN {/hpf} (Normal) NITRITE UR SeeNote (Normal) Comments: Result: NEGATIVE OCCULT BLOOD-UR SeeNote (Normal) Comments: Result: NEGATIVE pH UR 7.0 (Normal) Range: 5.0-8.0 PROT DIPSTX SeeNote (Normal) Comments: Result: NEGATIVE RBC-UA 0 SEEN {/hpf} (Normal) Range: 0-5 SP.GR. DIPSTX 1.010 (Normal) Range: 1.002-1.030 SQUAM EPI SeeNote {/hpf} (Normal) Range: 5-10 Comments: Result: 0-5 SEEN UROBILI 0.2 EU/dl (Normal) Range: 0.2 - 1.0 WBC SeeNote {/hpf} (Normal) Range: 0-5 Comments: Result: 0-5 SEEN :56 PFLIP CHOL 202 mg/dL (Abnormal) Comments: <200 mg/dL Desirable 200-240 mg/dL Borderline >240 mg/dL High Risk HDL 48 mg/dL (Normal) Comments: Reference Range HDL <40 mg/dL Low HDL Cholesterol HDL >or= 60 mg/dL High HDL Cholesterol LDL 134 mg/dL (Abnormal) Range: 0-130 TRIG 99 mg/dL (Normal) Comments: Serum Triglycerides Reference Interval Normal <150 mg/dL Borderline high 150 - 199 mg/dL High 200 - 499 mg/dL Very High > or = 500 mg/dL VLDL 20 mg/dL (Normal) Range: 5-40 Plan of Care Name Dates Details Instructions Hives : Eprescribed prescriptions (G8553) Indication: Hives Tobacco use disorder (Renamed from Nondependent tobacco use disorder) : Eprescribed prescriptions (G8553) Indication: Tobacco use disorder (Renamed from Nondependent tobacco use disorder) Tobacco use disorder (Renamed from Nondependent tobacco use disorder) : Eprescribed prescriptions (G8553) Indication: Tobacco use disorder (Renamed from Nondependent tobacco use disorder) Tobacco use disorder (Renamed from Nondependent tobacco use disorder) : Eprescribed prescriptions (G8553) Indication: Tobacco use disorder (Renamed from Nondependent tobacco use disorder) Rash : Eprescribed prescriptions (G8553) Indication: Rash Tobacco use disorder (Renamed from Nondependent tobacco use disorder) : fall reduction handout Indication: Tobacco use disorder (Renamed from Nondependent tobacco use disorder) Tobacco use disorder (Renamed from Nondependent tobacco use disorder) : elderly packet given Indication: Tobacco use disorder (Renamed from Nondependent tobacco use disorder) Tobacco use disorder (Renamed from Nondependent tobacco use disorder) : advance planning information Indication: Tobacco use disorder (Renamed from Nondependent tobacco use disorder) Mild hypertension : Flu (Influenza) *: flu Indication: Mild hypertension Mild hypertension : Eprescribed prescriptions (G8553) Indication: Mild hypertension PMB (postmenopausal bleeding) : Eprescribed prescriptions (G8553) Indication: PMB (postmenopausal bleeding) Mild hypertension : Eprescribed prescriptions (G8553) Indication: Mild hypertension Mild hypertension : Eprescribed prescriptions (G8553) Indication: Mild hypertension Coronary atherosclerosis of bypass graft : Eprescribed prescriptions (G8553) Indication: Coronary atherosclerosis of bypass graft Atelectasis : Follow up in [address] uribe and keep october as well Indication: Atelectasis Coronary artery disease : Reviewed Diagnostic Tests Indication: Coronary artery disease Coronary artery disease : Reviewed Plant Quality Manager Letter Indication: Coronary artery disease Tobacco use disorder (Renamed from Nondependent tobacco use disorder) : Smoking: Ways to Quit: addiction Indication: Tobacco use disorder (Renamed from Nondependent tobacco use disorder) Hypercholesterolemia : High Cholesterol (Hypercholesterolemia) *: cardiovascular health Indication: Hypercholesterolemia Hypercholesterolemia : High Cholesterol (Hypercholesterolemia) *: cardiovascular health Indication: Hypercholesterolemia Mild hypertension : High Blood Pressure (Essential Hypertension) *: bp Indication: Mild hypertension Sebaceous cyst : I/D Cyst/Abscess Indication: Sebaceous cyst Planned Observations CBC WITH MANUAL DIFF (10423)Indication: Anemia On: 47-Bcp-859376:39 Request Comments: recheck in February Ferritin (78943)Indication: Anemia On: 59-Lkt-193529:38 Request Comments: re check in February Stool Guiac Test, Office (Medicare) (G0107)Indication: Iron deficiency anemia due to chronic blood loss On: 27-Jun-20179:36 Request Sed Rate Erythrocyte (35633)Indication: Abdominal pain, acute, right upper quadrant (Renamed from Acute abdominal pain in right upper quadrant) On: 2-Lpr-365405:20 Request CBC, Platelets & Auto Diff (24129)Indication: Abdominal pain, acute, right upper quadrant (Renamed from Acute abdominal pain in right upper quadrant) On: 7-Ajh-657958:20 Request Metabolic Panel, Comprehensive (65009)Indication: Abdominal pain, acute, right upper quadrant (Renamed from Acute abdominal pain in right upper quadrant) On: 8-Taf-707909:19 Request COMPLEMENT FUNC ACT-EA COMP (48515)Indication: Hives On: 19-Jdo-651371:47 Request Comments: C1 esterase inhibitor functional Iron (91955)Indication: Iron deficiency anemia due to chronic blood loss On: 15-Fak-655659:42 Request ANCA-P (ANTI NEUTROPHIL CYTOPLASMIC ANTIBODY)Indication: Hives On: 34-Oxd-864273:34 Request Anti-TPO Antibody (43787)Indication: Hives On: 56-Xpm-633348:34 Request Platelet 07832 (citrate, nonclumping tube)Indication: Tongue abnormality On: :26 Request LIPOPROTEIN, BLD, BY NMR (92534)Indication: Mild hypertension On: 39-Gow-957402:32 Request METABOLIC PANEL, COMPREHENSIVE (92683)Indication: Mild hypertension On: :32 Request CALCIFIDIOL (14794) VIT D 25Indication: Vitamin D insufficiency On: :31 Request MICROALBUMIN: CREATININE RATIO (00219) AND (30352)Indication: Mild hypertension On: :53 Request LIPOPROTEIN, BLD, BY NMR (33800)Indication: Mild hypertension On: :53 Request Ferritin (97333)Indication: Iron deficiency anemia due to chronic blood loss On: 61-Tus-189227:11 Request CBC (Auto) (20312)Indication: Iron deficiency anemia due to chronic blood loss On: 36-Fbf-510989:10 Request Iron (25454)Indication: Iron deficiency anemia due to chronic blood loss On: 9-Qlu-212983:46 Request Comments: recheck in 4 weeks RETICULOCYTE COUNT (27070)Indication: Iron deficiency anemia due to chronic blood loss On: 1-Lej-199331:51 Request Iron Binding Capacity (TIBC) (16778)Indication: Iron deficiency anemia due to chronic blood loss On: 6-Gnk-539223:51 Request Iron (69578)Indication: Iron deficiency anemia due to chronic blood loss On: 9-Qys-537601:51 Request Methymalonic Acid, Serum (81959)Indication: Iron deficiency anemia due to chronic blood loss On: 5-Thq-990416:50 Request Vitamin B-12 (cyanocobalamin) (62356)Indication: Iron deficiency anemia due to chronic blood loss On: :50 Request Folic Acid Serum (89076)Indication: Iron deficiency anemia due to chronic blood loss On: 2-Ygo-347262:50 Request Ferritin (94551)Indication: Iron deficiency anemia due to chronic blood loss On: 7-Eto-439919:50 Request CBC (Auto) (87907)Indication: Iron deficiency anemia due to chronic blood loss On: 0-Nwv-850757:50 Request POTASSIUM SERUM (70517)Indication: Hypokalemia On: :48 Request C-Reactive Protein (18927)Indication: Chronic nonintractable headache, unspecified headache type On: :46 Request Sed Rate Erythrocyte (77582)Indication: Chronic nonintractable headache, unspecified headache type On: :46 Request Renal function Panel (79534)Indication: Mild hypertension On: 49-Cdi-825776:46 Request Stool Guiac Test, Office (Medicare) (G0107)Indication: Iron deficiency anemia due to chronic blood loss On: :52 Request Iron (42687)Indication: Iron deficiency anemia due to chronic blood loss On: :51 Request Iron (17473)Indication: Iron deficiency anemia due to chronic blood loss On: 33-Lso-497578:14 Request Ferritin (60729)Indication: Iron deficiency anemia due to chronic blood loss On: 03-Qeh-274252:14 Request CBC & PLATELETS (AUTO) (14032)Indication: PMB (postmenopausal bleeding) On: :12 Request PTT (ACTIVATED PARTIAL THROMBOPLASTIN TIME) (76017)Indication: PMB (postmenopausal bleeding) On: :12 Request PT/INR, Office (33656)Indication: PMB (postmenopausal bleeding) On: :12 Request PROLACTIN (89090)Indication: PMB (postmenopausal bleeding) On: :12 Request TSH (THYROID STIMULATING HORMONE) (75442)Indication: PMB (postmenopausal bleeding) On: 04-Xpq-425833:12 Request RETICULOCYTE COUNT (70878)Indication: Iron deficiency anemia due to chronic blood loss On: :38 Request Ferritin (48797)Indication: Iron deficiency anemia due to chronic blood loss On: :35 Request URINALYSIS, W/ MICRO (97751)Indication: Mild hypertension On: :33 Request METABOLIC PANEL, COMPREHENSIVE (19058)Indication: Mild hypertension On: :33 Request LIPID PANEL (60320)Indication: Mild hypertension On: 89-Fbi-015645:33 Request CBC with auto diff (18383)Indication: Mild hypertension On: 45-Gtq-816783:33 Request Ferritin (97982)Indication: Iron deficiency anemia due to chronic blood loss On: 83-Fms-604513:19 Request Comments: recheck in 6 weeks Iron Binding Capacity (TIBC) (54691)Indication: Iron deficiency anemia due to chronic blood loss On: 57-Zot-567218:19 Request Comments: recheck in 6 weeks Iron (71053)Indication: Iron deficiency anemia due to chronic blood loss On: 79-Xhx-023125:19 Request Comments: recheck in 6 weeks METABOLIC PANEL, COMPREHENSIVE (41897)Indication: Mild hypertension On: 49-Ctv-645248:29 Request CBC (Auto) (22810)Indication: Iron deficiency anemia due to chronic blood loss On: 74-Amy-423353:27 Request Ferritin (73977)Indication: Iron deficiency anemia due to chronic blood loss On: 19-Mba-476681:27 Request Metabolic Panel, Comprehensive (34124)Indication: Iron deficiency anemia due to chronic blood loss On: 1-Gmw-558592:46 Request CBC with manual diff (38743)Indication: Iron deficiency anemia due to chronic blood loss On: 1-Wab-688463:46 Request Ferritin (99682)Indication: Iron deficiency anemia due to chronic blood loss On: 3-Bpf-489132:46 Request CBC (Auto) (28909)Indication: Iron deficiency anemia due to chronic blood loss On: 68-Atp-436421:16 Request Ferritin (09716)Indication: Iron deficiency anemia due to chronic blood loss On: 7-Yge-765902:36 Request Comments: 4 weeks CBC (Auto) (04962)Indication: Iron deficiency anemia due to chronic blood loss On: 6-Wqi-545824:36 Request Comments: 4 weeks Helicobacter pylori Ag, EIA (22874)Indication: Iron deficiency anemia due to chronic blood loss On: 5-Wuy-015304:31 Request Comments: do [place] RETICULOCYTE COUNT (54459)Indication: Abnormal blood chemistry On: :26 Request IRON (99230)Indication: Abnormal blood chemistry On: :26 Request FERRITIN (42076)Indication: Abnormal blood chemistry On: :26 Request LDH (LD) (LACTATE DEHYDROGENASE) (81720)Indication: Abnormal blood chemistry On: :25 Request OCCULT BLOOD FECES SCREEN - card done in office (96471)Indication: Abnormal blood chemistry On: : Request FECAL OCCULT- Tubes sent home (04187)Indication: Abnormal blood chemistry On: :25 Request METABOLIC PANEL, COMPREHENSIVE (45601)Indication: Mild hypertension On: :40 Request LIPID PANEL (48778)Indication: Mild hypertension On: :40 Request CBC WITH MANUAL DIFF (08425)Indication: Mild hypertension On: :40 Request Comments: in three months (approximately) CBC (Auto) (43289)Indication: Mild hypertension On: :02 Request Metabolic Panel, Comprehensive (37725)Indication: Mild hypertension On: :02 Request Lipid Panel (13998)Indication: Mild hypertension On: :02 Request Comments: in three months (approximately) HEPATIC FUNCTION PANEL (00614)Indication: Hypercholesterolemia On: :58 Request Comments: in three months (approximately) Lipid Panel (36729)Indication: Hypercholesterolemia On: 5-Eda-484135:58 Request CBC (Auto) (48142)Indication: Mild hypertension On: :18 Request Metabolic Panel, Comprehensive (68350)Indication: Mild hypertension On: 46-Puf-730467:18 Request Lipid Panel (09365)Indication: Mild hypertension On: 25-Hgg-337473:18 Request Comments: in three months (approximately) CBC WITH MANUAL DIFF (71853)Indication: Hypercholesterolemia On: 25-Grj-170390:50 Request METABOLIC PANEL, COMPREHENSIVE (84064)Indication: Hypercholesterolemia On: 86-Ikx-012901:50 Request LIPID PANEL (76066)Indication: Hypercholesterolemia On: 78-Yuj-428226:50 Request Metabolic Panel, Comprehensive (35383)Indication: Hypercholesterolemia On: 23-Dzk-836040:48 Request Lipid Panel (97976)Indication: Hypercholesterolemia On: 99-Jjd-030419:48 Request Comments: in three months HEPATIC FUNCTION PANEL (36016)Indication: Hypercholesterolemia On: 71-Pmj-967965:07 Request LIPID PANEL (76043)Indication: Hypercholesterolemia On: 23-Luw-549512:07 Request Comments: in six months URINALYSIS W/O MICRO (58512)Indication: Mild hypertension On: 39-Qbm-286334:04 Request CBC WITH MANUAL DIFF (28298)Indication: Mild hypertension On: 71-Nes-709068:04 Request LIPID PANEL (76641)Indication: Mild hypertension On: 07-Cqo-312949:04 Request METABOLIC PANEL, COMPREHENSIVE (57230)Indication: Mild hypertension On: 78-Akl-402678:04 Request Planned Encounters Medical; [facility] Exam (Nurse) - On: 06-Mar-2018 10:00 [facility]; [facility] (Doctor) - On: 03-Apr-2018 13:30 [facility] Marilu Uribe MD, MD, Dana M Planned Procedures CT - Abdomen & Pelvis (Without On: 27-Jun-2017 Intent Contrast)By: Marilu Uribe MD Comments: rule out appenditis rule out tumor with iron def. anemia Marilu Uribe MD INFUSION, NORMAL SALINE SOLUTION , On: 24-Jun-2017 Intent 1000 CC (Special Coverage Comments: IV Therapy [id number], 1 inchSite: L ac Tolerated: wellno redness or swelling, no s/s infiltrationmlong, import/export specialist Instructions Apply. See MCM: 2047) (J7030)By: Marilu Uribe MD, MD, Dana M CT - LDCT CHEST ( WITHOUT CONTRAST On: 01-Jul-2016 Intent )By: Marilu Uribe MD, MD, Comments: LDCT pt has over 30 pack year history, current smoker, no had one in the last year, would have curative surgery if need, no current signs or suymptoms Marilu Harris DEXA SCAN AXIAL SKELETON (73637)By: On: 19-Feb-2016 Intent Marilu Uribe MD, MD, Dana M CT - Chest (Without Contrast)By: On: 05-Nov-2015 Intent Marilu Uribe MD, MD, Dana Comments: LDCT for smoking history no contrastMasha Harris Ultrasound - PelvisBy: Gemini DELGADILLO, On: 12-Nov-2014 Intent Marilu Berman MD Comments: can do transvaginal probe Eprescribed prescriptions On: 13-Aug-2013 Intent (G8553)By: Marilu Uribe MD, MD, Dana M Eprescribed prescriptions On: 13-Aug-2013 Intent (G8553)By: Marilu Uribe MD, MD, Dana M Eprescribed prescriptions On: 08-May-2013 Intent (G8553)By: Thelma Sánchez LPN Holter Monitor 24 hrsBy: Gemini On: 22-Jan-2013 Intent Marilu DELGADILLO MD, Dana M EKG (38568)By: Marilu Uribe MD On: 22-Jan-2013 Intent Marilu Uribe MD Comments: see scanned document of test done to see results reviewed today with patient EKG ([id number])By: Nithya Nieto On: 29-Jun-2012 Intent NAIL FEEDER Eprescribed prescriptions On: 21-Mar-2012 Intent (G8553)By: Marilu Uribe MD, MD, Dana M Radiology - ChestBy: Gemini DELGADILLO, On: 26-Nov-2011 Intent Marilu Berman MD Radiology - Lumbar SpineBy: Gemini On: 06-Jan-2007 Intent Marilu DELGADILLO MD, Dana M Planned Medications INFUSION, NORMAL SALINE SOLUTION , 1000 CC Ordered: 24-Jun-2017 Pending Marilu Uribe MD, MD, Dana M Instructions Name Dates Details Tobacco use disorder (Renamed from Nondependent tobacco use disorder) : How to access health information online Indication: Tobacco use disorder (Renamed from Nondependent tobacco use disorder) Tobacco use disorder (Renamed from Nondependent tobacco use disorder) : How to access health information online - Detail Indication: Tobacco use disorder (Renamed from Nondependent tobacco use disorder) Tobacco use disorder (Renamed from Nondependent tobacco use disorder) : Patient Instructions Indication: Tobacco use disorder (Renamed from Nondependent tobacco use disorder) Hives : How to access health information online Indication: Hives Hives : How to access health information online - Detail Indication: Hives Hives : Patient Instructions Indication: Hives BMI 29.0-29.9,adult : How to access health information online Indication: BMI 29.0-29.9,adult BMI 29.0-29.9,adult : How to access health information online - Detail Indication: BMI 29.0-29.9,adult BMI 29.0-29.9,adult : Patient Instructions Indication: BMI 29.0-29.9,adult Tobacco use disorder (Renamed from Nondependent tobacco use disorder) : How to access health information online Indication: Tobacco use disorder (Renamed from Nondependent tobacco use disorder) Tobacco use disorder (Renamed from Nondependent tobacco use disorder) : How to access health information online - Detail Indication: Tobacco use disorder (Renamed from Nondependent tobacco use disorder) Tobacco use disorder (Renamed from Nondependent tobacco use disorder) : Patient Instructions Indication: Tobacco use disorder (Renamed from Nondependent tobacco use disorder) Flu-like symptoms : How to access health information online Indication: Flu-like symptoms Flu-like symptoms : How to access health information online - Detail Indication: Flu-like symptoms Flu-like symptoms : Patient Instructions Indication: Flu-like symptoms BMI 29.0-29.9,adult : How to access health information online Indication: BMI 29.0-29.9,adult BMI 29.0-29.9,adult : How to access health information online - Detail Indication: BMI 29.0-29.9,adult BMI 29.0-29.9,adult : Patient Instructions Indication: BMI 29.0-29.9,adult Tobacco use disorder (Renamed from Nondependent tobacco use disorder) : How to access health information online Indication: Tobacco use disorder (Renamed from Nondependent tobacco use disorder) Tobacco use disorder (Renamed from Nondependent tobacco use disorder) : How to access health information online - Detail Indication: Tobacco use disorder (Renamed from Nondependent tobacco use disorder) Tobacco use disorder (Renamed from Nondependent tobacco use disorder) : Patient Instructions Indication: Tobacco use disorder (Renamed from Nondependent tobacco use disorder) Annual Medicare Physical : How to access health information online Indication: Annual Medicare Physical Annual Medicare Physical : How to access health information online - Detail Indication: Annual Medicare Physical Annual Medicare Physical : Patient Instructions Indication: Annual Medicare Physical Tobacco use disorder (Renamed from Nondependent tobacco use disorder) : How to access health information online Indication: Tobacco use disorder (Renamed from Nondependent tobacco use disorder) Tobacco use disorder (Renamed from Nondependent tobacco use disorder) : How to access health information online - Detail Indication: Tobacco use disorder (Renamed from Nondependent tobacco use disorder) Tobacco use disorder (Renamed from Nondependent tobacco use disorder) : Patient Instructions Indication: Tobacco use disorder (Renamed from Nondependent tobacco use disorder) Diabetes mellitus type II, controlled, with no complications (Renamed from Controlled type 2 diabetes mellitus without complication) : How to access health information online Indication: Diabetes mellitus type II, controlled, with no complications (Renamed from Controlled type 2 diabetes mellitus without complication) Diabetes mellitus type II, controlled, with no complications (Renamed from Controlled type 2 diabetes mellitus without complication) : How to access health information online - Detail Indication: Diabetes mellitus type II, controlled, with no complications (Renamed from Controlled type 2 diabetes mellitus without complication) Diabetes mellitus type II, controlled, with no complications (Renamed from Controlled type 2 diabetes mellitus without complication) : Patient Instructions Indication: Diabetes mellitus type II, controlled, with no complications (Renamed from Controlled type 2 diabetes mellitus without complication) Tobacco use disorder (Renamed from Nondependent tobacco use disorder) : How to access health information online Indication: Tobacco use disorder (Renamed from Nondependent tobacco use disorder) Tobacco use disorder (Renamed from Nondependent tobacco use disorder) : How to access health information online - Detail Indication: Tobacco use disorder (Renamed from Nondependent tobacco use disorder) Tobacco use disorder (Renamed from Nondependent tobacco use disorder) : Patient Instructions Indication: Tobacco use disorder (Renamed from Nondependent tobacco use disorder) Iron deficiency anemia due to chronic blood loss : How to access health information online Indication: Iron deficiency anemia due to chronic blood loss Iron deficiency anemia due to chronic blood loss : How to access health information online - Detail Indication: Iron deficiency anemia due to chronic blood loss Iron deficiency anemia due to chronic blood loss : Patient Instructions Indication: Iron deficiency anemia due to chronic blood loss BMI 31.0-31.9,adult : How to access health information online Indication: BMI 31.0-31.9,adult BMI 31.0-31.9,adult : How to access health information online - Detail Indication: BMI 31.0-31.9,adult BMI 31.0-31.9,adult : Patient Instructions Indication: BMI 31.0-31.9,adult Vertigo : How to access health information online Indication: Vertigo Vertigo : How to access health information online - Detail Indication: Vertigo Vertigo : Patient Instructions Indication: Vertigo Annual Medicare Physical : How to access health information online Indication: Annual Medicare Physical Annual Medicare Physical : How to access health information online - Detail Indication: Annual Medicare Physical Annual Medicare Physical : Patient Instructions Indication: Annual Medicare Physical Carotid stenosis : How to access health information online Indication: Carotid stenosis Carotid stenosis : How to access health information online - Detail Indication: Carotid stenosis Carotid stenosis : Patient Instructions Indication: Carotid stenosis Iron deficiency anemia due to chronic blood loss : How to access health information online Indication: Iron deficiency anemia due to chronic blood loss Iron deficiency anemia due to chronic blood loss : How to access health information online - Detail Indication: Iron deficiency anemia due to chronic blood loss Iron deficiency anemia due to chronic blood loss : Patient Instructions Indication: Iron deficiency anemia due to chronic blood loss Annual Medicare Physical : How to access health information online Indication: Annual Medicare Physical Annual Medicare Physical : How to access health information online - Detail Indication: Annual Medicare Physical Annual Medicare Physical : Patient Instructions Indication: Annual Medicare Physical Cough : How to access health information online Indication: Cough Cough : How to access health information online - Detail Indication: Cough Cough : Patient Instructions Indication: Cough Mild hypertension : How to access health information online Indication: Mild hypertension Mild hypertension : How to access health information online - Detail Indication: Mild hypertension Mild hypertension : Patient Instructions Indication: Mild hypertension Tinnitus, left : How to access health information online Indication: Tinnitus, left Tinnitus, left : How to access health information online - Detail Indication: Tinnitus, left Tinnitus, left : Patient Instructions Indication: Tinnitus, left Mild hypertension : How to access health information online Indication: Mild hypertension Mild hypertension : How to access health information online - Detail Indication: Mild hypertension Mild hypertension : Patient Instructions Indication: Mild hypertension Mild hypertension : How to access health information online Indication: Mild hypertension Mild hypertension : How to access health information online - Detail Indication: Mild hypertension Mild hypertension : Patient Instructions Indication: Mild hypertension Mild hypertension : How to access health information online Indication: Mild hypertension Mild hypertension : How to access health information online - Detail Indication: Mild hypertension Mild hypertension : Patient Instructions Indication: Mild hypertension PMB (postmenopausal bleeding) : How to access health information online Indication: PMB (postmenopausal bleeding) PMB (postmenopausal bleeding) : How to access health information online - Detail Indication: PMB (postmenopausal bleeding) PMB (postmenopausal bleeding) : Patient Instructions Indication: PMB (postmenopausal bleeding) Mild hypertension : How to access health information online - Detail Indication: Mild hypertension Coronary atherosclerosis of bypass graft : Patient Instructions Indication: Coronary atherosclerosis of bypass graft Atelectasis : Patient Instructions Indication: Atelectasis Mild hypertension : Patient Instructions Indication: Mild hypertension Hypercholesterolemia : Patient Instructions Indication: Hypercholesterolemia Syncope (Renamed from Episode of syncope) : Patient Instructions Indication: Syncope (Renamed from Episode of syncope) Tobacco use disorder (Renamed from Nondependent tobacco use disorder) : Patient Instructions Indication: Tobacco use disorder (Renamed from Nondependent tobacco use disorder) Hypercholesterolemia : Patient Instructions Indication: Hypercholesterolemia Hypercholesterolemia : Patient Instructions Indication: Hypercholesterolemia Other chest pain : Patient Instructions Indication: Other chest pain Encounters Lab Order On: 17-Nov-2017 10:36 Encounter Diagnosis: Anemia End: 17-Nov-2017 10:39 [facility] Office Visit On: 15-Nov-2017 15:24 Encounter Reason: Follow up for chronic medical issues - The patient feels well with no complaints and has good energy level. Patient has been compliant with instructions. Current medication use: no side effects and comp End: 15-Nov-2017 15:53 liant with dosing regimen. Patient sleeps 7 hours per night. Impact of disease: emotional impact-mild. Nutrition: balanced diet and low salt diet. The medical issues the patient is following up for incl ude blood sugar issues, cardiac issues, depression, high blood pressure, high cholesterol, kidney problems and other (anemia, malabsorption, psoriasis, hx. breast cancer).Encounter Diagnosis: BMI 29.0-29.9,adult, Tobacco use disorder (Renamed from Nondependent tobacco use disorder), Diabetes mellitus type II, controlled, with no complications (Renamed from Controlled type 2 diabetes mellitus without complication), Hypercholesterolemia, Psoriasis, Personal history of breast cancer, Hyperlipidemia, mild, Coronary atherosclerosis of bypass graft, Aortic valve disorder, Paroxysmal a-fib, Coronary artery disease, Excessive daytime sleepiness, Mild hypertension, Postnasal drip, Personal history of TIA (transient ischemic attack), Subclavian artery stenosis, right, Vitamin D insufficiency, Gastroesophageal reflux disease without esophagitis, Renal insufficiency, Carotid stenosis, Stress reaction (Renamed from Acute reaction to stress), Tinnitus, left, Malabsorption, Iron deficiency anemia due to chronic blood loss, Stress-related physiological response affecting physical condition, Chronic nonintractable headache, unspecified headache type, Abdominal pain, acute, right upper quadrant (Renamed from Acute abdominal pain in right upper quadrant), Hives, Abdominal pain, acute, right lower quadrant (Renamed from Acute abdominal pain in right lower quadrant) [facility] Office Visit On: 14-Sep-2017 11:34 Encounter Reason: Follow up for chronic medical issues - The patient feels well with minor complaints and has decreased energy level. Patient has been compliant with instructions. Current medication use: compliant with d End: 14-Sep-2017 12:29 osing regimen. Patient sleeps 7 hours per night. Impact of disease: emotional impact- mild. Nutrition: balanced diet and supplemental vitamins. The medical issues the patient is following up for include cardiac issues, depression, gastric reflux, high blood pressure, high cholesterol, kidney problems, other (chronic h/a, psoriasis, vitamin d def., tobacco use) and peripheral vascular disease.Encounter Diagnosis: Hives, Mild hypertension, Tobacco use disorder (Renamed from Nondependent tobacco use disorder), BMI 29.0- 29.9,adult, Excessive daytime sleepiness, Coronary artery disease, Subclavian artery stenosis, right, Personal history of TIA (transient ischemic attack), Diabetes mellitus type II, controlled, with no complications (Renamed from Controlled type 2 diabetes mellitus without complication), Postnasal drip, Paroxysmal a- fib, Personal history of breast cancer, Psoriasis, Hypercholesterolemia, Aortic valve disorder, Coronary atherosclerosis of bypass graft, Abdominal pain, acute, right upper quadrant (Renamed from Acute abdominal pain in right upper quadrant), Hyperlipidemia, mild, Malabsorption, Tinnitus, left, Iron deficiency anemia due to chronic blood loss, Carotid stenosis, Chronic nonintractable headache, unspecified headache type, Stress-related physiological response affecting physical condition, Gastroesophageal reflux disease without esophagitis, Vitamin D insufficiency, Idiosyncratic reaction to medication after proper dose, subsequent encounter, Renal insufficiency, Abdominal pain, acute, right lower quadrant (Renamed from Acute abdominal pain in right lower quadrant), Cough, Flu-like symptoms, Dehydration, Stress reaction (Renamed from Acute reaction to stress) [facility] Office Visit On: 28-Jul-2017 13:35 Encounter Reason: Follow up acute care visit - The patient feels the same. Patient has been compliant with instructions. Current medication use: experiencing side effects (?rash from Triamterene). Patient sleeps 7 hours End: 28-Jul-2017 14:26 per night. Impact of disease: emotional impact-moderate. Nutrition: balanced diet and supplemental vitamins. The medical issues the patient is following up for include other (RUQ pain, fatigue and hives).Encounter Diagnosis: BMI 29.0-29.9,adult, Tobacco use disorder (Renamed from Nondependent tobacco use disorder), Hives, Abdominal pain, acute, right upper quadrant (Renamed from Acute abdominal pain in right upper quadrant), Iron deficiency anemia due to chronic blood loss, Carotid stenosis , Mild hypertension, Tinnitus, left [facility] Office Visit On: 27-Jun-2017 9:11 Encounter Reason: Flu Like Symptoms - Symptoms include chills, body aches, nasal congestion, scratchy throat, hoarseness and headache. Associated symptoms include fatigue and weakness. Note for Flu like symptoms: f/u f End: 27-Jun-2017 9:43 delilah hicks. pt states she feels about the sameEncounter Diagnosis: BMI 29.0-29.9,adult, Tobacco use disorder (Renamed from Nondependent tobacco use disorder), Iron deficiency anemia due to chronic blood loss, Nausea, Abdominal pain, acute, right lower quadrant (Renamed from Acute abdominal pain in right lower quadrant), Chronic nonintractable headache, unspecified headache type [facility] Office Visit On: 24-Jun-2017 9:50 Encounter Reason: Flu Like Symptoms - Symptoms include chills, body aches, nasal congestion, scratchy throat, hoarseness and headache. Associated symptoms include fatigue and weakness., End: 24-Jun-2017 12:45 [ADDITIONAL REASON] Follow up hospital - Reason for ER visit: note: (chills, fever, sweats nausea). The patient does not feel well and has decreased energy level. Encounter Diagnosis: Flu-like symptoms, Nausea, Abdominal pain, acute, right upper quadrant (Renamed from Acute abdominal pain in right upper quadrant), Chronic nonintractable headache, unspecified headache type, Dehydration, Idiosyncratic reaction to medication after proper dose, subsequent encounter [facility] Phone Encounter On: 15-Jun-2017 15:33 Encounter Diagnosis: Malabsorption End: 15-Jun-2017 15:38 [facility] Office Visit On: 09-Jun-2017 12:56 Encounter Reason: Follow up for chronic medical issues - The patient feels well with minor complaints and has decreased energy level. Patient has been compliant with instructions. Current medication use: compliant with d End: 09-Jun-2017 13:51 osing regimen. Patient sleeps 7 hours per night. Impact of disease: emotional impact- mild. Nutrition: balanced diet and supplemental vitamins. The medical issues the patient is following up for include cardiac issues, depression, gastric reflux, high blood pressure, high cholesterol, kidney problems, other (chronic h/a, psoriasis, vitamin d def., tobacco use) and peripheral vascular disease.Encounter Diagnosis: Tobacco use disorder (Renamed from Nondependent tobacco use disorder), BMI 29.0- 29.9,adult, Diabetes mellitus type II, controlled, with no complications (Renamed from Controlled type 2 diabetes mellitus without complication), Coronary artery disease , Subclavian artery stenosis, right, Chronic nonintractable headache, unspecified headache type, Paroxysmal a-fib, Personal history of breast cancer, Excessive daytime sleepiness, Psoriasis, Mild hypertension, Coronary atherosclerosis of bypass graft , Aortic valve disorder, Hypercholesterolemia, Renal insufficiency, Stress-related physiological response affecting physical condition, Tongue abnormality, Gastroesophageal reflux disease without esophagitis, Postnasal drip, Personal history of TIA (transient ischemic attack), Vitamin D insufficiency, Hyperlipidemia, mild, Carotid stenosis, BMI 31.0-31.9,adult, BMI 30.0-30.9,adult, Skin yeast infection, BMI 28.0-28.9,adult, Stress reaction (Renamed from Acute reaction to stress), Hives, Cough, Iron deficiency anemia due to chronic blood loss [facility] Office Visit On: 16-May-2017 12:46 Encounter Reason: Tongue Abnormalities - The history today is reported by the patient. Symptoms include tongue pain (and bleeding) and lesion(s) on tongue. Symptoms are located on the right side of tongue. Onset was 1 da End: 16-May-2017 13:33 y(s) ago. There is no known event that preceded symptom onset. Associated symptoms include rash (itchy, all over, came last night and now are gone) and gum inflammation (and redness).Encounter Diagnosis: Tobacco use disorder (Renamed from Nondependent tobacco use disorder), BMI 29.0- 29.9,adult, Tongue abnormality [facility] Office Visit On: 07-Mar-2017 9:53 Encounter Reason: Physical female exam - Last seen between 1-3 months ago. General health: feels well with minor complaints and has decreased energy level. The patient's appetite is normal. Nutrition: normal/adequate. Ex End: 10-Mar-2017 9:29 ercises 5 days per week. Sleeps on average 8 hours per night. Normal bowel and bladder habits. Safety measures include appropriate use of safety belts and home smoke detectors. Current emotional problem s include anxiety. screening, colonoscopy (2005) and screening, mammography (2016)., [ADDITIONAL REASON] Annual Medicare Exam - The patient had reviewed and updated the family history, medication/s, past medical history and social history. Yes the patient did have a mini mental status exam done today. The activities of daily living the patient needs help with are none. The patient wood s have durable power of estate planning attorney and living will. Other providers contributing to the patient's care are layaway clerk. Note for Annual Medicare Exam: see all scanned mdvip documents. has all these Encounter Diagnosis: Personal history of breast cancer, Carotid stenosis, Diabetes mellitus type II, controlled, with no complications (Renamed from Controlled type 2 diabetes mellitus without complication), Subclavian artery stenosis, right, Stress-related physiological response affecting physical condition, Chronic nonintractable headache, unspecified headache type, Coronary artery disease, Tobacco use disorder (Renamed from Nondependent tobacco use disorder), Coronary atherosclerosis of bypass graft, Allergic reaction, sequela, Aortic valve disorder, Gastroesophageal reflux disease without esophagitis, Mild hypertension, Psoriasis, Personal history of TIA (transient ischemic attack), BMI 28.0-28.9,adult, Annual Medicare Physical (V70.0), Excessive daytime sleepiness, Postnasal drip, Tinnitus, left, Renal insufficiency, Hyperlipidemia, mild, Vitamin D insufficiency, Abnormal blood chemistry, Iron deficiency anemia due to chronic blood loss [facility] Office Visit On: 08-Feb-2017 11:14 Encounter Reason: Follow up ER - Reason for hospitalization note: (lip and throat swelling). Patient has been compliant with instructions. Current medication use: no side effects (was not sent home with any meds. Got sle End: 08-Feb-2017 12:05 epy with the Benadryl given to her in the hospital). The patient feels well with minor complaints (still not feeling the greatest. Feels strange) and has decreased energy level.Encounter Diagnosis: BMI 30.0-30.9,adult, Tobacco use disorder (Renamed from Nondependent tobacco use disorder), Allergic reaction, sequela, Coronary atherosclerosis of bypass graft [facility] Office Visit On: 07-Oct-2016 14:13 Encounter Reason: Follow up for chronic medical issues - The patient feels well with minor complaints and has decreased energy level. Patient has been compliant with instructions. Current medication use: no side effects, End: 16-Nov-2016 12:36 compliant with dosing regimen and considered effective by patient. Patient sleeps 7 hours per night. Impact of disease: emotional impact-mild. Nutrition: balanced diet and supplemental vitamins. The vt dical issues the patient is following up for include blood sugar issues, cardiac issues, depression, high blood pressure, high cholesterol and other (psoriasis, hx. breast cancer, anemia ).Encounter Diagnosis: BMI 30.0-30.9,adult, Diabetes mellitus type II, controlled, with no complications (Renamed from Controlled type 2 diabetes mellitus without complication), Tobacco use disorder (Renamed from Nondependent tobacco use disorder), Rash, Carotid stenosis, Personal history of breast cancer, Paroxysmal a-fib, Subclavian artery stenosis, right, Stress-related physiological response affecting physical condition, Chronic nonintractable headache, unspecified headache type, Malabsorption of iron, Coronary atherosclerosis of bypass graft, Hypercholesterolemia, Coronary artery disease, Personal history of TIA (transient ischemic attack), Gastroesophageal reflux disease without esophagitis, Stress reaction (Renamed from Acute reaction to stress) , Iron deficiency anemia due to chronic blood loss, Aortic valve disorder, Psoriasis, Mild hypertension, BMI 31.0-31.9,adult, Skin yeast infection [facility] Office Visit On: 01-Jul-2016 11:33 Encounter Reason: Follow up for chronic medical issues - The patient feels well with minor complaints and has decreased energy level. Patient has been compliant with instructions. Current medication use: no side effects, End: 01-Jul-2016 12:19 compliant with dosing regimen and considered effective by patient. Patient sleeps 7 hours per night. Impact of disease: emotional impact-moderate. Nutrition: balanced diet and supplemental vitamins. Th e medical issues the patient is following up for include blood sugar issues, cardiac issues, COPD, depression, gastric reflux, high blood pressure, high cholesterol and other (anemia, hx. breast cancer, current smoker, psoriasis ). Encounter Diagnosis: BMI 31.0-31.9,adult, Tobacco use disorder (Renamed from Nondependent tobacco use disorder), Diabetes mellitus type II, controlled, with no complications (Renamed from Controlled type 2 diabetes mellitus without complication), Malabsorption of iron, Chronic nonintractable headache, unspecified headache type, Stress reaction (Renamed from Acute reaction to stress), Hypercholesterolemia, Gastroesophageal reflux disease without esophagitis, Coronary atherosclerosis of bypass graft, Stress-related physiological response affecting physical condition, Personal history of breast cancer, Carotid stenosis, Subclavian artery stenosis, right, Vertigo, Paroxysmal a-fib, Aortic valve disorder, Iron deficiency anemia due to chronic blood loss, Mild hypertension, Postmenopausal (Renamed from Postmenopausal status), Psoriasis, Personal history of TIA (transient ischemic attack), Hypokalemia, Coronary artery disease, Rash [facility] Office Visit On: 09-Apr-2016 14:18 Encounter Diagnosis: Encounter for screening fecal occult blood testing End: 12-Apr-2016 7:54 [facility] Office Visit On: 09-Apr-2016 13:30 Encounter Reason: Follow up, Diagnostic Procedure Results - Diagnostic tests include other (labs ). Date: (03-31-16).Encounter Diagnosis: Iron deficiency anemia due to chronic blood loss, End: 09-Apr-2016 14:18 Tobacco use disorder (Renamed from Nondependent tobacco use disorder), Rash, Mild hypertension [facility] Phone Encounter On: 25-Mar-2016 14:18 Encounter Diagnosis: Malabsorption of iron End: 25-Mar-2016 14:20 [facility] Office Visit On: 11-Mar-2016 11:13 Encounter Reason: Follow up acute care visit - The patient worsening. Patient has been compliant with instructions. Current medication use: experiencing side effects (?from IV iron ). Patient sleeps 7 hours per night. Im End: 11-Mar-2016 12:10 pact of disease: emotional impact-mild. Nutrition: balanced diet and supplemental vitamins. The medical issues the patient is following up for include other (patient did not start the prozac and or test her blood sugars bc too many things to do at once she seen Dr. Huffman, she sent to ENT and he said vertigo is from her b/p meds, not coming from her inner ear ).Encounter Diagnosis: BMI 31.0-31.9,adult, Tobacco use disorder (Renamed from Nondependent tobacco use disorder), Iron deficiency anemia due to chronic blood loss, Carotid stenosis, Tinnitus, left, Chronic nonintractable headache, unspecified headache type, Stress reaction (Renamed from Acute reaction to stress), Hypertension [facility] Lab Order On: 01-Mar-2016 12:36 Encounter Diagnosis: Iron deficiency anemia due to chronic blood loss End: 01-Mar-2016 12:47 [facility] Visit On: 26-Feb-2016 12:17 Encounter Diagnosis: Vertigo, Tobacco use disorder (Renamed from Nondependent tobacco use disorder), Chronic nonintractable headache, unspecified headache type, Hypokalemia, Iron deficiency anemia due to chronic blood loss, End: 26-Feb-2016 12:56 Stress reaction (Renamed from Acute reaction to stress) [facility] Historical Summary On: 25-Feb-2016 10:04 Encounter Diagnosis: Carotid stenosis End: 25-Feb-2016 10:16 [facility] Office Visit On: 19-Feb-2016 10:52 Encounter Reason: Annual Medicare Exam - The patient had reviewed and updated the family history, medication/s, past medical history and social history. Yes the patient did have (MOCA=25/30 ) a mini mental status exam do End: 19-Feb-2016 16:24 ne today. The patient would like education and information on smoking cessation. The activities of daily living the patient needs help with are none. The patient has driven in past 6 months, but the pat ient has not had fecal incontinence, had urinary incontinence, missed or ran out of medications to soon, fallen in the past 6 months, gotten lost, has a medalert necklace or bracelet, put area rugs thro ugh house or put handrails in bathroom. The patient has completed the following preventative measures: PAP smear (over 70 yrs old ), mammography (bilateral masectomy ) and colonoscopy (2005). The patien t does have durable power of estate planning attorney and living will. The patient has noticed getting bored and lack of energy (intermittent ). Other providers contributing to the patient's care are layaway clerk (Dr. Carroll ), gastrologist (Dr. Smith ) and other: (Opthalm: Dr. Greenfield ).Encounter Diagnosis: Annual Medicare Physical (V70.0), Tobacco use disorder (Renamed from Nondependent tobacco use disorder), BMI 31.0-31.9,adult, Personal history of breast cancer , Aortic valve disorder, Coronary atherosclerosis of bypass graft, Coronary artery disease, Psoriasis, Iron deficiency anemia, unspecified, Personal history of TIA (transient ischemic attack), Gastroesophageal reflux disease without esophagitis, Hypertension, Carotid stenosis, Hypercholesterolemia, Stress-related physiological response affecting physical condition, Paroxysmal a-fib, Diabetes mellitus type II, controlled, with no complications (Renamed from Controlled type 2 diabetes mellitus without complication), Cough, Subclavian artery stenosis, right, Postmenopausal (Renamed from Postmenopausal status), Vertigo [facility] Office Visit On: 27-Jan-2016 12:25 Encounter Reason: Follow up hospital - Reason for ER visit: note: (carotid stenosis ). The patient feels well with minor complaints and has decreased energy level. Patient has been compliant with instructions. Current me End: 27-Jan-2016 13:11 dication use: compliant with dosing regimen. Patient sleeps 7 hours per night. Impact of disease: emotional impact-mild. Nutrition: balanced diet and supplemental vitamins.Encounter Diagnosis: Carotid stenosis, Tobacco use disorder (Renamed from Nondependent tobacco use disorder), Vertigo, Diabetes mellitus type II, controlled, with no complications (Renamed from Controlled type 2 diabetes mellitus without complication), Hypertension, Hypercholesterolemia [facility] Phone Encounter On: 22-Dec-2015 17:35 Encounter Diagnosis: Cough End: 22-Dec-2015 17:37 [facility] Office Visit On: 11-Nov-2015 12:51 Encounter Reason: Follow up, Diagnostic Procedure Results - Diagnostic tests include other (labs ). Date: (11-05-15).Encounter Diagnosis: Iron deficiency anemia, unspecified, Tobacco use disorder (Renamed from Nondependent tobacco use disorder), End: 14-Nov-2015 13:03 Diabetes mellitus type II, controlled, with no complications (Renamed from Controlled type 2 diabetes mellitus without complication), Hypercholesterolemia, Psoriasis [facility] Refill Request On: 10-Nov-2015 16:58 Encounter Diagnosis: Hypercholesterolemia End: 10-Nov-2015 17:13 [facility] Office Visit On: 05-Nov-2015 14:39 Encounter Diagnosis: Annual Medicare Physical (V70.0), Tobacco use disorder (Renamed from Nondependent tobacco use disorder), Coronary atherosclerosis of bypass graft, Gastroesophageal reflux disease without esophagitis, End: 06-Nov-2015 7:05 Iron deficiency anemia, unspecified, Paroxysmal a-fib, Hypertension, Personal history of breast cancer, Aortic valve disorder, Stress-related physiological response affecting physical condition, Coronary artery disease, Carotid stenosis, Hypercholesterolemia, Personal history of TIA (transient ischemic attack), Psoriasis, Cough, Diabetes mellitus type II, controlled, with no complications (Renamed from Controlled type 2 diabetes mellitus without complication) [facility] Office Visit On: 21-Oct-2015 10:45 Encounter Reason: Follow up for chronic medical issues - The patient feels well with minor complaints. Patient has been compliant with instructions. Current medication use: experiencing side effects (lisinopril causing c End: 21-Oct-2015 11:29 ough ) and compliant with dosing regimen. Patient sleeps 7 hours per night. Impact of disease: emotional impact-moderate. Nutrition: balanced diet and supplemental vitamins. The medical issues the patie nt is following up for include cardiac issues, depression, gastric reflux, high blood pressure, high cholesterol and other (anemia, psoriasis, hx. breast cancer, smoker ).Encounter Diagnosis: Cough, Tobacco use disorder (Renamed from Nondependent tobacco use disorder), Hypertension, Personal history of breast cancer, Aortic valve disorder, Paroxysmal a-fib, Coronary atherosclerosis of bypass graft, Gastroesophageal reflux disease without esophagitis, Iron deficiency anemia, unspecified, Hypercholesterolemia, Carotid stenosis, Personal history of TIA (transient ischemic attack), Psoriasis, Stress-related physiological response affecting physical condition, Coronary artery disease [facility] Office Visit On: 21-Aug-2015 12:15 Encounter Diagnosis: Personal history of TIA (transient ischemic attack) End: 21-Aug-2015 12:19 [facility] Office Visit On: 21-Aug-2015 11:02 Encounter Reason: Follow up for chronic medical issues - The patient feels well with minor complaints and has decreased energy level. Patient has been compliant with instructions. Current medication use: no side effects, End: 21-Aug-2015 12:03 compliant with dosing regimen and considered effective by patient. Patient sleeps 7 hours per night. Impact of disease: emotional impact-mild. Nutrition: balanced diet and supplemental vitamins. The me dical issues the patient is following up for include cardiac issues, depression, gastric reflux, high blood pressure, high cholesterol and other (anemia, hx. breast cancer ).Encounter Diagnosis: Hypertension, Tobacco use disorder (Renamed from Nondependent tobacco use disorder), Coronary atherosclerosis of bypass graft, Gastroesophageal reflux disease without esophagitis, Iron deficiency anemia, unspecified, Personal history of TIA (transient ischemic attack), Personal history of breast cancer, Aortic valve disorder, Paroxysmal a-fib, Psoriasis, Stress-related physiological response affecting physical condition, Tinnitus, left, Coronary artery disease, Carotid stenosis, Hypercholesterolemia [facility] Office Visit On: 28-Jul-2015 13:25 Encounter Reason: Follow up acute care visit - The patient feeling better since last seen and improving. Patient has been compliant with instructions. Current medication use: experiencing side effects (zoloft caused cram End: 28-Jul-2015 14:16 ping in hands and legs ). Patient sleeps 7 hours per night. Impact of disease: emotional impact-mild. Nutrition: balanced diet and supplemental vitamins. The medical issues the patient is following up for include other (tinnitus ). Encounter Diagnosis: Tinnitus, left, Tobacco use disorder (Renamed from Nondependent tobacco use disorder), Stress-related physiological response affecting physical condition, Other acute sinusitis [facility] Office Visit On: 30-Jun-2015 13:26 Encounter Reason: Follow up acute care visit - The patient feeling better since last seen and improving. Patient has been compliant with instructions. Current medication use: no side effects, compliant with dosing regime End: 30-Jun-2015 14:23 n and considered effective by patient. Patient sleeps 7 hours per night. Impact of disease: emotional impact-mild. Nutrition: balanced diet and supplemental vitamins. The medical issues the patient is following up for include high blood pressure. Encounter Diagnosis: Hypertension, Tobacco use disorder (Renamed from Nondependent tobacco use disorder), Tinnitus, left [facility] Office Visit On: 16-May-2015 11:06 Encounter Reason: Follow up for chronic medical issues - The patient feels well with minor complaints, has good energy level and is sleeping well. Patient has been compliant with instructions. Current medication use: no End: 16-May-2015 11:47 side effects, compliant with dosing regimen and considered effective by patient. Patient sleeps 8 hours per night. Impact of disease: emotional impact-mild. Nutrition: balanced diet and supplemental vit amins. The medical issues the patient is following up for include cardiac issues, gastric reflux, high blood pressure, high cholesterol and other (anemia, psoriasis, hx. TIA, hx. breast cancer ).Encounter Diagnosis: Hypertension, Personal history of TIA (transient ischemic attack) (V12.54), Coronary atherosclerosis of bypass graft, Hypercholesterolemia, Gastroesophageal reflux disease without esophagitis, Paroxysmal a-fib, Psoriasis, Aortic valve disorder, Personal history of breast cancer, Stress-related physiological response affecting physical condition, Carotid stenosis, Coronary artery disease, Iron deficiency anemia, unspecified, Tobacco use disorder (Renamed from Nondependent tobacco use disorder) [facility] Office Visit On: 21-Jan-2015 14:05 Encounter Reason: Annual Medicare Exam - The patient had reviewed and updated the family history, medication/s, past medical history and social history. Yes the patient did have ( Alert) a mini mental status exam do End: 21-Jan-2015 14:53 ne today. The activities of daily living the patient needs help with are none. The patient has driven in past 6 months, has a medalert necklace or bracelet and put handrails in bathroom, but the patient has not had fecal incontinence, had urinary incontinence, missed or ran out of medications to soon, fallen in the past 6 months, gotten lost or put area rugs through house. The patient has completed following preventative measures: PAP smear (2014), mammography (unsure of timing, had masectomy) and colonoscopy (longer than 10 yrs). The patient does not have durable power of estate planning attorney or living saulo l. The patient has noticed nothing from the geriatic depression scale. Other providers contributing to the patient's care are layaway clerk (Dr. Carroll)., [ADDITIONAL REASON] Follow up for chronic medical issues - The patient feels well with no complaints, has good energy level and is sleeping well. Patient has been compliant with instructions. Current m edication use: no side effects, compliant with dosing regimen and considered effective by patient. Patient sleeps 7 hours per night. Impact of disease: emotional impact-mild. Nutrition: balanced diet an d supplemental vitamins. The medical issues the patient is following up for include cardiac issues, gastric reflux, high blood pressure, high cholesterol and other (anemia, psoriasis, hx. breast cancer ). Encounter Diagnosis: Hypertension 401.1 (Renamed from Hypertension (401.0)), Coronary Artery Disease (414.00), Iron Deficiency Anemia,Unspecified (280.9), Gastroesophageal reflux disease without esophagitis, Paroxysmal a-fib, Psoriasis, Left knee pain, Carotid stenosis (433.10), Personal history of TIA (transient ischemic attack) (V12.54), AORTIC VALVE DISORDERS (424.1), PMB (postmenopausal bleeding), Coronary atherosclerosis of bypass graft, Hypercholesterolemia (272.0), Stress reaction (308.3), HX, PERSONAL, MALIGNANCY, BREAST (V10.3), Annual Medicare Physical (V70.0) [facility] Office Visit On: 12-Nov-2014 15:42 Encounter Diagnosis: PMB (postmenopausal bleeding) End: 12-Nov-2014 16:27 [facility] Office Visit On: 07-Oct-2014 13:59 Encounter Reason: Follow up for chronic medical issues - The patient feels well with minor complaints and has decreased energy level. Patient has been compliant with instructions. Current medication use: no side effects, End: 07-Oct-2014 15:02 compliant with dosing regimen and considered effective by patient. Patient sleeps 7 hours per night. Impact of disease: emotional impact-mild. Nutrition: balanced diet and supplemental vitamins. The me dical issues the patient is following up for include cardiac issues, gastric reflux, high blood pressure, high cholesterol and other (anemia, psoriasis, hx. breast cancer ).Encounter Diagnosis: Hypercholesterolemia (272.0), Hypertension 401.1 (Renamed from Hypertension (401.0)), Iron Deficiency Anemia,Unspecified (280.9), Gastroesophageal reflux disease without esophagitis, Stress reaction (308.3), Personal history of TIA (transient ischemic attack) (V12.54), AORTIC VALVE DISORDERS (424.1), HX, PERSONAL, MALIGNANCY, BREAST (V10.3), Coronary atherosclerosis of bypass graft, Coronary Artery Disease (414.00), Carotid stenosis (433.10), Paroxysmal a-fib, Psoriasis, Left knee pain [facility] Phone Encounter On: 08-Jul-2014 16:35 Encounter Diagnosis: Iron Deficiency Anemia,Unspecified (280.9) End: 08-Jul-2014 16:38 [facility] Office Visit On: 04-Jul-2014 13:10 Encounter Reason: Follow up for chronic medical issues - The patient feels well with no complaints, has good energy level and is sleeping well. Patient has been compliant with instructions. Current medication use: no polo End: 04-Jul-2014 13:41 e effects, compliant with dosing regimen and considered effective by patient. Patient sleeps 7 hours per night. Impact of disease: emotional impact-mild. Nutrition: balanced diet and supplemental vitami ns. The medical issues the patient is following up for include cardiac issues, gastric reflux, high blood pressure, high cholesterol and other (anemia, psoriasis, hx. breast cancer ).Encounter Diagnosis: AORTIC VALVE DISORDERS (424.1), Hypercholesterolemia (272.0), HX, PERSONAL, MALIGNANCY, BREAST (V10.3), Stress reaction (308.3), Coronary Artery Disease (414.00), Personal history of TIA (transient ischemic attack) (V12.54), Coronary atherosclerosis of bypass graft, Paroxysmal a-fib, Hypertension 401.1 (Renamed from Hypertension (401.0)), Gastroesophageal reflux disease without esophagitis, Carotid stenosis (433.10), Psoriasis, Iron Deficiency Anemia,Unspecified (280.9), BMI 28.0-28.9,adult [facility] Office Visit On: 19-Mar-2014 14:35 Encounter Reason: Follow up for chronic medical issues - The patient feels well with minor complaints, has decreased energy level and is sleeping well. Patient has been compliant with instructions. Current medication use End: 19-Mar-2014 15:03 : no side effects, compliant with dosing regimen and considered effective by patient. Patient sleeps 7 hours per night. Impact of disease: emotional impact-mild. Nutrition: balanced diet and supplementa l vitamins. The medical issues the patient is following up for include cardiac issues, high blood pressure, high cholesterol and other (anemia ).Encounter Diagnosis: Hypertension 401.1 (Renamed from Hypertension (401.0)), Hoarseness, Stress reaction (308.3), Coronary Artery Disease (414.00), Personal history of TIA (transient ischemic attack) (V12.54), AORTIC VALVE DISORDERS (424.1), Hypercholesterolemia (272.0), HX, PERSONAL, MALIGNANCY, BREAST (V10.3), Coronary atherosclerosis of bypass graft, Carotid stenosis (433.10), Psoriasis, Paroxysmal a-fib, Atelectasis, Iron Deficiency Anemia,Unspecified (280.9), Gastroesophageal reflux disease without esophagitis [facility] Office Visit On: 18-Dec-2013 14:24 Encounter Reason: Follow up for chronic medical issues - The patient has decreased energy level and is sleeping well. Patient has been compliant with instructions. Current medication use: no side effects. Patient sleeps End: 18-Dec-2013 15:28 6 hours per night. Impact of disease: emotional impact-mild. Nutrition: balanced diet. The medical issues the patient is following up for include cardiac issues, high blood pressure, high cholesterol an d other (psoriasis, anemia, tobacco use, duodenal ulcer ).Encounter Diagnosis: Hypertension 401.1 (Renamed from Hypertension (401.0)), Hypercholesterolemia (272.0), Hoarseness, Coronary atherosclerosis of bypass graft, Iron Deficiency Anemia,Unspecified (280.9), Carotid stenosis (433.10), Psoriasis, Tobacco use disorder (Renamed from Nondependent tobacco use disorder) [facility] Office Visit On: 23-Oct-2013 12:57 Encounter Reason: Follow up acute care visit - The patient feels the same. Current medication use: experiencing side effects (iron pill). Patient sleeps 6 hours per night.Encounter Diagnosis: Hoarseness, Coronary atherosclerosis of bypass graft, End: 23-Oct-2013 13:41 AORTIC VALVE DISORDERS (424.1), Iron Deficiency Anemia,Unspecified (280.9), Hypertension 401.1 (Renamed from Hypertension (401.0)) [facility] Error Encounter On: 16-Oct-2013 11:28 Encounter Reason: Follow up acute care visit - The medical issues the patient is following up for include other (cardiac -- seea ppt 09/21/13 with [facility]).Encounter Diagnosis: Coronary atherosclerosis of bypass graft End: 16-Oct-2013 12:16 [facility] Office Visit On: 21-Sep-2013 11:10 Encounter Reason: Transition into care - The patient is transitioning into care from a hospital (09/06/13 to 09/14/13 she was at for a triple bypass) and a summary of care was reviewed .Encounter Diagnosis: AORTIC VALVE DISORDERS (424.1), End: 21-Sep-2013 12:24 Coronary Artery Disease (414.00), Paroxysmal a-fib, Coronary atherosclerosis of bypass graft, Atelectasis [facility] Lab Order On: 21-Aug-2013 12:18 Encounter Diagnosis: Iron Deficiency Anemia,Unspecified (280.9) End: 21-Aug-2013 12:20 [facility] Office Visit On: 13-Aug-2013 13:06 Encounter Reason: Follow up for chronic medical issues - The patient feels well with minor complaints (vaginal discharge), has decreased energy level and is sleeping well. Patient has been compliant with instructions. Cu End: 13-Aug-2013 13:49 rrent medication use: no side effects. Patient sleeps 8 hours per night. Impact of disease: emotional impact-mild. Nutrition: balanced diet. The medical issues the patient is following up for include ca rdiac issues, high blood pressure, high cholesterol and other (psoriasis, anemia, tobacco use, duodenal ulcer ).Encounter Diagnosis: Hypertension 401.1 (Renamed from Hypertension (401.0)), Hypercholesterolemia (272.0), Psoriasis, Tobacco use disorder (Renamed from Nondependent tobacco use disorder), AORTIC VALVE DISORDERS (424.1), HX, PERSONAL, MALIGNANCY, BREAST (V10.3), Coronary Artery Disease (414.00), Stress reaction (308.3), Iron Deficiency Anemia,Unspecified (280.9), Personal history of TIA (transient ischemic attack) (V12.54), Carotid stenosis (433.10), Low back pain (Renamed from LBP (low back pain)) [facility] Office Visit On: 08-May-2013 12:58 Encounter Reason: Follow up for chronic medical issues - The patient feels well with minor complaints and has decreased energy level. Patient has been compliant with instructions. Current medication use: no side effects. End: 08-May-2013 13:30 Patient sleeps 7 hours per night. Impact of disease: emotional impact-mild. Nutrition: balanced diet. The medical issues the patient is following up for include cardiac issues, high blood pressure, hig h cholesterol and other (psoriasis, anemia, tobacco use, duodenal ulcer ).Encounter Diagnosis: Hypercholesterolemia (272.0), HX, PERSONAL, MALIGNANCY, BREAST (V10.3), WWV, Coronary Artery Disease (414.00), Tobacco use disorder (Renamed from Nondependent tobacco use disorder), Psoriasis, Hypertension 401.1 (Renamed from Hypertension (401.0)), Syncope (Renamed from Episode of syncope), Stress reaction (308.3), Carotid stenosis (433.10), Iron Deficiency Anemia,Unspecified (280.9), AORTIC VALVE DISORDERS (424.1), Personal history of TIA (transient ischemic attack) (V12.54) [facility] Office Visit On: 02-Feb-2013 12:56 Encounter Reason: Annual Medicare Exam - The patient had reviewed and updated the family history, medication/s, past medical history and social history. Yes the patient did have a mini mental status exam done today. The End: 02-Feb-2013 13:37 patient would like education and information on smoking cessation. The activities of daily living the patient needs help with are none. The patient has driven in past 6 months. The patient has completed the following preventative measures: PAP smear (many years ago ), mammography (hx. bilateral masectomy ) and colonoscopy (Dr. Smith 2005). The patient does have durable power of estate planning attorney (patient need s to have updated since her husbands ) and living will. The patient has noticed nothing from the geriatic depression scale. Other providers contributing to the patient's care are layaway clerk (Dr. Sav Carroll ), gastrologist (Dr. Smith ) and other: (Opthalm: Dr. Olmstead ).Encounter Diagnosis: Low back pain (Renamed from LBP (low back pain)), Tobacco use disorder (Renamed from Nondependent tobacco use disorder), Psoriasis, Hypertension 401.1 (Renamed from Hypertension (401.0)), Abnormal blood chemistry (790.6), HX, PERSONAL, MALIGNANCY, BREAST (V10.3), Hypercholesterolemia (272.0), WWV, Coronary Artery Disease (414.00), Carotid stenosis (433.10), Syncope (Renamed from Episode of syncope), Iron Deficiency Anemia,Unspecified (280.9), AORTIC VALVE DISORDERS (424.1), Stress reaction (308.3), Personal history of TIA (transient ischemic attack) (V12.54), Annual Medicare Physical (V70.0) [facility] Lab Order On: 23-Jan-2013 12:45 Encounter Diagnosis: Iron Deficiency Anemia,Unspecified (280.9) End: 23-Jan-2013 12:46 [facility] Office Visit On: 22-Jan-2013 15:59 Encounter Diagnosis: Syncope (780.2) End: 22-Jan-2013 16:41 [facility] Prescription Refill On: 07-Nov-2012 14:28 Encounter Diagnosis: Epigastric pain (789.06) End: 07-Nov-2012 14:29 [facility] Office Visit On: 06-Nov-2012 14:20 Encounter Diagnosis: Carotid stenosis (433.10), Iron Deficiency Anemia,Unspecified (280.9), Personal history of TIA (transient ischemic attack) (V12.54) End: 06-Nov-2012 15:21 [facility] Annotation/Addendum On: 27-Oct-2012 8:13 Encounter Diagnosis: Iron Deficiency Anemia,Unspecified (280.9) End: 27-Oct-2012 8:15 [facility] Office Visit On: 24-Oct-2012 12:59 Encounter Reason: Follow up for chronic medical issues - The patient feels well with minor complaints and has decreased energy level. Patient has been compliant with instructions. Current medication use: no side effects, End: 24-Oct-2012 13:43 compliant with dosing regimen and considered effective by patient. Patient sleeps 7 hours per night. Impact of disease: emotional impact-mild. Nutrition: balanced diet. The medical issues the patient i s following up for include cardiac issues, high blood pressure, high cholesterol and other (psoriasis, anemia, tobacco use, duodenal ulcer ).Encounter Diagnosis: Hypercholesterolemia (272.0), Duodenal ulcer, unspecified as acute or chronic, without hemorrhage or perforation, without mention of obstruction (532.90), Psoriasis (696.1), Palpitation (785.1), Coronary Artery Disease (414.00), WWV, Abnormal blood chemistry (790.6), Hypertension 401.1 (Renamed from Hypertension (401.0)), Carotid stenosis (433.10), Stress reaction (308.3), Iron Deficiency Anemia,Unspecified (280.9), HX, PERSONAL, MALIGNANCY, BREAST (V10.3), Tobacco use disorder (305.1), AORTIC VALVE DISORDERS (424.1) [facility] Office Visit On: 28-Aug-2012 11:53 Encounter Diagnosis: Stress reaction (308.3), Iron Deficiency Anemia,Unspecified (280.9), Nausea (787.02) End: 29-Aug-2012 16:47 [facility] Office Visit On: 24-Jul-2012 11:50 Encounter Reason: Follow up tests - Date: (07/14/12).Encounter Diagnosis: Iron Deficiency Anemia,Unspecified (280.9), Stress reaction (308.3) End: 24-Jul-2012 12:41 [facility] Office Visit On: 29-Jun-2012 12:37 Encounter Reason: Follow up for chronic medical issues - The patient feels well with minor complaints, has good energy level and is sleeping poorly. Patient has been compliant with instructions. Current medication use: n End: 29-Jun-2012 13:35 o side effects and compliant with dosing regimen. Patient sleeps 6 hours per night. Nutrition: balanced diet and supplemental vitamins. The medical issues the patient is following up for include All heidi ntified problems below, high blood pressure and high cholesterol.Encounter Diagnosis: Palpitation (785.1), Carotid stenosis (433.10), Tobacco use disorder (305.1), Low back pain (724.2), Hypercholesterolemia (272.0), Hypertension 401.1 (Renamed from Hypertension (401.0)), WWV, AORTIC VALVE DISORDERS (424.1), Abnormal blood chemistry (790.6), Coronary Artery Disease (414.00), HX, PERSONAL, MALIGNANCY, BREAST (V10.3), Psoriasis (696.1) [facility] Phone Encounter On: 24-Mar-2012 9:22 Encounter Diagnosis: Abnormal blood chemistry (790.6) End: 24-Mar-2012 9:26 [facility] Office Visit On: 21-Mar-2012 9:03 Encounter Reason: Follow up for chronic medical issues - The patient feels well with minor complaints and has decreased energy level. Patient has been compliant with instructions. Current medication use: no side effects, End: 21-Mar-2012 9:34 compliant with dosing regimen and considered effective by patient. Patient sleeps 7 hours per night. Impact of disease: emotional impact-mild. Nutrition: balanced diet and supplemental vitamins. The me dical issues the patient is following up for include cardiac issues, high blood pressure, high cholesterol and other (tobacco use ).Encounter Diagnosis: Hypercholesterolemia (272.0), Hypertension 401.1 (Renamed from Hypertension (401.0)), Low back pain (724.2), Carotid stenosis (433.10), Tobacco use disorder (305.1), WWV, HX, PERSONAL, MALIGNANCY, BREAST (V10.3), Coronary Artery Disease (414.00), Psoriasis (696.1), Duodenal ulcer, unspecified as acute or chronic, without hemorrhage or perforation, without mention of obstruction (532.90), Epigastric pain (789.06), Sebaceous cyst (706.2), drug reaction, Otitis externa (380.10), Hearing change, AORTIC VALVE DISORDERS (424.1) [facility] Office Visit On: 07-Feb-2012 11:52 Encounter Reason: Breast pain - The onset of the pain has been sudden and has been occurring for days (4).Encounter Diagnosis: Chest pain (786.59) End: 07-Feb-2012 12:27 [facility] Office Visit On: 26-Nov-2011 10:13 Encounter Reason: Follow up for chronic medical issues - The patient feels well with minor complaints, has good energy level and is sleeping well. Patient has been compliant with instructions. Current medication use: no End: 26-Nov-2011 11:12 side effects, compliant with dosing regimen and considered effective by patient. Patient sleeps 7 hours per night. Impact of disease: emotional impact-mild. Nutrition: balanced diet and supplemental vit amins. The medical issues the patient is following up for include cardiac issues, high blood pressure, high cholesterol and other (tobacco use, psoriasis ).Encounter Diagnosis: Hypertension 401.1 (Renamed from Hypertension (401.0)), Hypercholesterolemia (272.0), Coronary Artery Disease (414.00), HX, PERSONAL, MALIGNANCY, BREAST (V10.3), Tobacco use disorder (305.1), Carotid stenosis (433.10), WWV, Chest pain (786.59) [facility] Office Visit On: 27-Aug-2011 10:30 Encounter Reason: Follow up for chronic medical issues - The patient feels well with minor complaints and has decreased energy level. Patient has been compliant with instructions. Current medication use: no side effects, End: 27-Aug-2011 11:35 compliant with dosing regimen and considered effective by patient. Patient sleeps 7 hours per night. Impact of disease: emotional impact-mild. Nutrition: balanced diet and supplemental vitamins. The me dical issues the patient is following up for include cardiac issues, high blood pressure, high cholesterol and other (psoriasis, hx. breast cancer, tobacco use ).Encounter Diagnosis: Hypertension 401.1 (Renamed from Hypertension (401.0)), Hypercholesterolemia (272.0), Carotid stenosis (433.10), Coronary Artery Disease (414.00), Tobacco use disorder (305.1), HX, PERSONAL, MALIGNANCY, BREAST (V10.3), WWV, Nausea (787.02) [facility] Lab Order On: 09-Aug-2011 11:56 Encounter Diagnosis: Hypertension 401.1 (Renamed from Hypertension (401.0)), Hypercholesterolemia (272.0) End: 09-Aug-2011 11:57 [facility] Office Visit On: 15-Apr-2011 11:26 Encounter Reason: Follow up for chronic medical issues - The patient feels well with no complaints, has good energy level and is sleeping well. Patient has been compliant with instructions. Current medication use: no polo End: 15-Apr-2011 12:05 e effects, compliant with dosing regimen and considered effective by patient. Patient sleeps 7 hours per night. Impact of disease: emotional impact-mild. Nutrition: balanced diet and supplemental vitami ns. The medical issues the patient is following up for include cardiac issues, gastric reflux, high blood pressure, high cholesterol and other (hx. breast cancer, tobacco use, psoriasis ).Encounter Diagnosis: HX, PERSONAL, MALIGNANCY, BREAST (V10.3) , Hypercholesterolemia (272.0), Hypertension 401.1 (Renamed from Hypertension (401.0)), Carotid stenosis (433.10), Tobacco use disorder (305.1), Coronary Artery Disease (414.00) [facility] Office Visit On: 15-Jan-2011 10:26 Encounter Reason: Follow up for chronic medical issues - The patient feels well with minor complaints and has decreased energy level. Patient has been compliant with instructions. Current medication use: no side effects End: 15-Jan-2011 10:55 and compliant with dosing regimen. Patient sleeps 7 hours per night. Impact of disease: emotional impact-mild. Nutrition: balanced diet and supplemental vitamins. The medical issues the patient is follo wing up for include cardiac issues, high blood pressure, high cholesterol and other (tobacco use, psoriasis ).Encounter Diagnosis: Coronary Artery Disease (414.00), HX, PERSONAL, MALIGNANCY, BREAST (V10.3), Tobacco use disorder (305.1), Hypercholesterolemia (272.0), Carotid stenosis (433.10), Hypertension 401.1 (Renamed from Hypertension (401.0)) [facility] Office Visit On: 17-Sep-2010 11:22 Encounter Reason: Follow up for chronic medical issues - The patient feels well with no complaints, has good energy level and is sleeping well. Patient has been compliant with instructions. Current medication use: no polo End: 17-Sep-2010 11:55 e effects, compliant with dosing regimen and considered effective by patient. Patient sleeps 7 hours per night. Impact of disease: emotional impact-mild. Nutrition: balanced diet and supplemental vitami ns. The medical issues the patient is following up for include cardiac issues, high blood pressure, high cholesterol and other (tobacco use, psoriasis, hx. breast cancer ).Encounter Diagnosis: Hypertension 401.1 (Renamed from Hypertension (401.0)), Psoriasis (696.1), Coronary Artery Disease (414.00), Carotid stenosis (433.10), Hypercholesterolemia (272.0), Breast Cancer (174.9), Tobacco use disorder (305.1), HX, PERSONAL, MALIGNANCY, BREAST (V10.3) [facility] Office Visit On: 22-May-2010 11:42 Encounter Reason: Follow up for chronic medical issues - The patient feels well with minor complaints, has good energy level and is sleeping well. Patient has been compliant with instructions. Current medication use: no End: 22-May-2010 12:15 side effects, compliant with dosing regimen and considered effective by patient. Patient sleeps 8 hours per night. Impact of disease: emotional impact-mild. Nutrition: balanced diet and supplemental vit amins. The medical issues the patient is following up for include cardiac issues, gastric reflux, high blood pressure, high cholesterol and other (tobacco use, hx. breast cancer, psoriasis ).Encounter Diagnosis: Hypercholesterolemia (272.0), Carotid stenosis (433.10), Tobacco use disorder (305.1), Hypertension 401.1 (Renamed from Hypertension (401.0)), Breast Cancer (174.9), Coronary Artery Disease (414.00), Psoriasis (696.1), Duodenal ulcer, unspecified as acute or chronic, without hemorrhage or perforation, without mention of obstruction (532.90), Inflamed seborrheic keratosis (702.11) [facility] Office Visit On: 12-Feb-2010 8:25 Encounter Diagnosis: Chest pain (786.59) End: 12-Feb-2010 8:58 [facility] Phone Encounter On: 09-Oct-2009 15:02 [facility] End: 09-Oct-2009 15:04 Office Visit On: 29-Sep-2009 13:24 Encounter Reason: Follow up for chronic medical issues - The patient feels well with no complaints ,has good energy level and is sleeping well. Patient has been compliant with instructions. Current medication use: no polo End: 29-Sep-2009 14:03 e effects ,compliant with dosing regimen and considered effective by patient. Patient sleeps 8 hours per night. Impact of disease: emotional impact-mild. Nutrition: balanced diet and supplemental vitami ns. The medical issues the patient is following up for include cardiac issues ,high blood pressure and other (tobacco use, hx. breast cancer, psoriasis). Encounter Diagnosis: Hypertension 401.1 (Renamed from Hypertension (401.0)), Hypercholesterolemia (272.0), Carotid stenosis (433.10), Tobacco use disorder (305.1), Psoriasis (696.1), Breast Cancer (174.9), Coronary Artery Disease (414.00) [facility] Office Visit On: 18-Mar-2009 12:58 Encounter Reason: Follow up for chronic medical issues - The patient feels well with minor complaints ,has good energy level and is sleeping well. Patient has been compliant with instructions. Current medication use: no End: 18-Mar-2009 13:41 side effects ,compliant with dosing regimen and considered effective by patient. Patient sleeps 8 hours per night. Impact of disease: emotional impact-mild. Nutrition: balanced diet and supplemental vit amins. The medical issues the patient is following up for include cardiac issues ,high blood pressure ,high cholesterol and other (psoriasis, hx. breast cancer, tobacco use disorder ). Encounter Diagnosis: Hypertension 401.1 (Renamed from Hypertension (401.0)), Hypercholesterolemia (272.0), Tobacco use disorder (305.1), Carotid stenosis (433.10), Psoriasis (696.1), Breast Cancer (174.9), Coronary Artery Disease (414.00), Duodenal ulcer, unspecified as acute or chronic, without hemorrhage or perforation, without mention of obstruction (532.90), Otitis externa (380.10) [facility] Office Visit On: 16-Dec-2008 13:17 Encounter Reason: Follow up for chronic medical issues - The patient feels well with no complaints ,has good energy level and is sleeping well. Patient has been compliant with instructions. Current medication use: no polo End: 16-Dec-2008 13:56 e effects ,compliant with dosing regimen and considered effective by patient. Patient sleeps 7 hours per night. Impact of disease: emotional impact-mild. Nutrition: balanced diet and supplemental vitami ns. The medical issues the patient is following up for include cardiac issues ,high blood pressure ,high cholesterol and other (psoriasis, hx. breast cancer ). Encounter Diagnosis: Tobacco use disorder (305.1), Carotid stenosis (433.10), Psoriasis (696.1), Breast Cancer (174.9), Coronary Artery Disease (414.00), Hypertension 401.1 (Renamed from Hypertension (401.0)), Hypercholesterolemia (272.0), [facility] Office Visit On: 10-Sep-2008 12:45 Encounter Reason: Follow up for chronic medical issues - The patient feels well with no complaints ,has good energy level and is sleeping well. Patient has been compliant with instructions. Current medication use: no polo End: 10-Sep-2008 13:16 e effects ,compliant with dosing regimen and considered effective by patient. Patient sleeps 7 hours per night. Impact of disease: emotional impact-mild. Nutrition: balanced diet and supplemental vitami ns. The medical issues the patient is following up for include cardiac issues ,high blood pressure ,high cholesterol and other (hx. breast cacner, tob. abuse, psoriasis ). Encounter Diagnosis: Hypertension (401.0), Hypercholesterolemia (272.0), Tobacco use disorder (305.1), Carotid stenosis (433.10), Duodenal ulcer, unspecified as acute or chronic, without hemorrhage or perforation, without mention of obstruction (532.90), Psoriasis (696.1), Breast Cancer (174.9), Coronary Artery Disease (414.00), [facility] Historical Summary On: 25-Jun-2008 16:31 [facility] End: 25-Jun-2008 16:32 Office Visit On: 25-Jun-2008 12:53 Encounter Diagnosis: Tobacco use disorder (305.1), Carotid stenosis (433.10), Coronary Artery Disease (414.00), Duodenal ulcer, unspecified as acute or chronic, without hemorrhage or perforation, without mention of obstruction (532.90) End: 25-Jun-2008 13:18 [facility] Office Visit On: 11-Jun-2008 10:04 Encounter Reason: Follow up for chronic medical issues - The patient feels well with minor complaints ,has good energy level and is sleeping well. Patient has been compliant with instructions. Current medication use: no End: 11-Jun-2008 10:32 side effects ,compliant with dosing regimen and considered effective by patient. Patient sleeps 7 hours per night. Impact of disease: emotional impact-mild. Nutrition: balanced diet and supplemental vit amins. The medical issues the patient is following up for include cardiac issues ,high blood pressure ,high cholesterol and other (hx. breast cancer, psoriasis, tob. abuse ). Encounter Diagnosis: Hypertension 401.1 (Renamed from Hypertension (401.0)) , Hypercholesterolemia (272.0), Tobacco use disorder (305.1), Carotid stenosis (433.10), Coronary Artery Disease (414.00), Breast Cancer (174.9), Psoriasis (696.1), Duodenal ulcer, unspecified as acute or chronic, without hemorrhage or perforation, without mention of obstruction (532.90), [facility] Office Visit On: 26-Feb-2008 12:54 Encounter Reason: Follow up for chronic medical issues - The patient feels well with no complaints ,has good energy level and is sleeping well. Patient has been compliant with instructions. Current medication use: no polo End: 26-Feb-2008 13:07 e effects ,compliant with dosing regimen and considered effective by patient. Patient sleeps 7 hours per night. Impact of disease: emotional impact-mild. Nutrition: balanced diet and supplemental vitami ns. The medical issues the patient is following up for include cardiac issues ,gastric reflux ,high blood pressure ,high cholesterol and other (hx. breast cancer ). Encounter Diagnosis: Hypertension 401.1 (Renamed from Hypertension (401.0)), Hypercholesterolemia (272.0), Tobacco use disorder (305.1), Psoriasis (696.1), Breast Cancer (174.9), Carotid stenosis (433.10), Coronary Artery Disease (414.00), [facility] Office Visit On: 21-Nov-2007 14:35 Encounter Reason: Follow up for chronic medical issues - The patient feels well with minor complaints ,has good energy level and is sleeping well. Patient has been compliant with instructions. Current medication use: no End: 21-Nov-2007 15:03 side effects ,compliant with dosing regimen and considered effective by patient. Patient sleeps 7 hours per night. Impact of disease: emotional impact-mild. Nutrition: balanced diet. The medical issues the patient is following up for include cardiac issues ,gastric reflux ,high blood pressure ,high cholesterol and other (breast cancer, psoriasis ). Encounter Diagnosis: Hypertension 401.1 (Renamed from Hypertension (401.0)), Hypercholesterolemia (272.0), Tobacco use disorder (305.1), Carotid stenosis (433.10), Breast Cancer (174.9), Psoriasis (696.1), Coronary Artery Disease (414.00), Duodenal ulcer, unspecified as acute or chronic, without hemorrhage or perforation, without mention of obstruction (532.90), Hearing change [facility] Office Visit On: 01-Aug-2007 14:23 Encounter Reason: Follow up for chronic medical issues - The patient feels well with no complaints ,has good energy level and is sleeping well. Patient has been compliant with instructions. Current medication use: no polo End: 01-Aug-2007 15:01 e effects ,compliant with dosing regimen and considered effective by patient. Patient sleeps 7 hours per night. Impact of disease: emotional impact-mild. Nutrition: balanced diet. The medical issues the patient is following up for include cardiac issues ,COPD ,high blood pressure ,high cholesterol and other (psoriasis, hx breast cancer ). Encounter Diagnosis: Hypertension 401.1 (Renamed from Hypertension (401.0)), Sebaceous cyst (706.2), Viral infection, unspecified (079.99), Breast Cancer (174.9), Psoriasis (696.1), Hypercholesterolemia (272.0), Coronary Artery Disease (414.00), Duodenal ulcer, unspecified as acute or chronic, without hemorrhage or perforation, without mention o f obstruction (532.90), Hearing change, Epigastric pain (789.06), drug reaction, Tobacco use disorder (305.1), Carotid stenosis (433.10), Low back pain (724.2) [facility] Office Visit On: 13-Jul-2007 11:41 Encounter Reason: Follow up acute care visit - The patient feeling better since last seen. Patient has been compliant with instructions. Current medication use: no side effects ,compliant with dosing regimen and consider End: 13-Jul-2007 12:07 ed effective by patient. Patient sleeps 7 hours per night. Impact of disease: emotional impact-mild. Nutrition: balanced diet. The medical issues the patient is following up for include other (miguel cyst to vaginal area ). Note for Follow up acute care visit: having bad cough. fever 2 days ago, sick.Encounter Diagnosis: Hypertension 401.1 (Renamed from Hypertension (401.0)), Sebaceous cyst (706.2), Viral infection, unspecified (079.99) [facility] Office Visit On: 07-Jul-2007 10:04 Encounter Reason: Skin lesion - The skin lesion appeared rapidly and has been occurring for 3 days. It has been increasing in size. The skin lesion is characterized as red and raised above the skin. The skin lesion is lo End: 07-Jul-2007 10:41 cated on the genital area. There has been associated pain. Encounter Diagnosis: Sebaceous cyst (706.2) [facility] Office Visit On: 02-Jun-2007 7:55 Encounter Diagnosis: Hearing change, Epigastric pain (789.06), drug reaction End: 02-Jun-2007 8:52 [facility] Office Visit On: 07-Apr-2007 9:40 Encounter Reason: Follow up for chronic medical issues - The patient feels well with no complaints ,has good energy level and is sleeping well. Patient has been compliant with instructions. Current medication use: no polo End: 07-Apr-2007 10:25 e effects ,compliant with dosing regimen and considered effective by patient. Patient sleeps 8 hours per night. Impact of disease: emotional impact-mild. Nutrition: balanced diet. The medical issues the patient is following up for include cardiac issues ,COPD ,high blood pressure ,high cholesterol and other (psoriasis, hx breast cancer ). Encounter Diagnosis: hypertension 401.1 (Renamed from Hypertension (401.0)), Hypercholesterolemia (272.0), Psoriasis (696.1), Tobacco use disorder (305.1), Carotid stenosis (433.10), Duodenal ulcer, unspecified as acute or chronic, without hemorrhage or perforation, without mention of obstruction (532.90), Coronary Artery Disease (414.00), Low back pain (724.2), Breast Cancer (174.9) [facility] Office Visit On: 06-Jan-2007 10:12 Encounter Reason: Follow up for chronic medical issues - The patient feels well with no complaints ,has good energy level and is sleeping well. Patient has been compliant with instructions. Current medication use: experi End: 06-Jan-2007 13:03 encing side effects (stopped welchol d/t duodenal ulcer ) and considered effective by patient. Patient sleeps 6 hours per night. Impact of disease: emotional impact-mild. Nutrition: balanced diet and lezama pplemental vitamins. The medical issues the patient is following up for include cardiac issues ,high blood pressure ,high cholesterol and other (hx breast cancer ). Note for Follow up for chronic medic al issues: noting in summer, restart 3 weeks ago, on and off ache. not hard to walk once get going work way outEncounter Diagnosis: Breast Cancer (174.9), Psoriasis (696.1), Tobacco use disorder (305.1), Carotid stenosis (433.10), Duodenal ulcer, unspecified as acute or chronic, without hemorrhage or perforation, without mention of obstruction (532.90), hypertension 401.1 (Renamed from Hypertension (401.0)), Hypercholesterolemia (272.0), Coronary Artery Disease (414.00), Low back pain (724.2) [facility] Office Visit On: 06-Oct-2006 11:17 Encounter Reason: Follow up for chronic medical issues - The patient feels well with no complaints ,has good energy level and is sleeping well. Patient has been compliant with instructions. Current medication use: no polo End: 06-Oct-2006 11:53 e effects ,compliant with dosing regimen and considered effective by patient. Patient sleeps 8 hours per night. Impact of disease: emotional impact-mild. Nutrition: balanced diet and supplemental vitami ns. The medical issues the patient is following up for include cardiac issues ,COPD ,gastric reflux ,high blood pressure ,high cholesterol and other (psoriasis, hx. breast cancer ). Encounter Diagnosis: Hypertension (401.0), Hypercholesterolemia (272.0), Coronary Artery Disease (414.00), Breast Cancer (174.9), Psoriasis (696.1), Tobacco use disorder (305.1), Carotid stenosis (433.10) [facility] Office Visit On: 21-Apr-2006 11:36 Encounter Reason: Follow up, Laboratory Test Results - Lab results: other. Date: (04-08-2006). Current symptoms/reason for visit include/s Follow up visit with no current symptoms. , End: 21-Apr-2006 12:11 [ADDITIONAL REASON] Follow up for chronic medical issues - The patient feels well with no complaints ,has good energy level and is sleeping well. Patient has been compliant with instructions. Current m edication use: compliant with dosing regimen. Patient sleeps 8 hours per night. Impact of disease: no overall impact. Nutrition: balanced diet. The medical issues the patient is following up for include cardiac issues ,high blood pressure ,high cholesterol and other (CAD,breast cancer). Encounter Diagnosis: Hypertension (401.0), Hypercholesterolemia (272.0), Breast Cancer (174.9), Psoriasis (696.1), Coronary Artery Disease (414.00), Duodenal ulcer, unspecified as acute or chronic, without hemorrhage or perforation, without mention of obstruction (532.90), Tobacco use disorder (305.1), Carotid stenosis (433.10) [facility] Office Visit On: 21-Jan-2006 9:42 Encounter Reason: Follow up Hypertension - The symptoms have been associated with excessive caffeine intake (4 cups of coffee daily) and family history of hypertension (parents, sibling). Encounter Diagnosis: Breast Cancer (174.9), Psoriasis (696.1) End: 21-Jan-2006 10:15 , Hypertension (401.0), Hypercholesterolemia (272.0), Coronary Artery Disease (414.00), Duodenal ulcer, unspecified as acute or chronic, without hemorrhage or perforation, without mention of obstruction (532.90), Tobacco use disorder (305.1), Carotid stenosis (433.10) [facility] Historical Summary On: 20-Jan-2006 11:55 [facility] End: 20-Jan-2006 12:07 Payers Hardytlissette Zhao Ins/MedicareROSEMARY BRUCE; tamar guarantor
--- OUTSIDE RECORDS SUMMARY | 2018-07-13 22:36 | XMS RPT_ITS | Continuity of Care Document ---
:1940 Author Organization [facility] Address [facility] [facility] [address] [place] [address] Phone Care Team Providers Name Role Phone [...] told need to see about surgery at [facility] adn she will talkt to Dr. carroll [...] on us 10-16 will get reoprt form [facility]. Status: Active Tinnitus, left (H93.12, 388.30) [...] for 30 days Refills: 0 Ordered:23-Oct-2013 Long TELEGRAPH PRINTER MECHANIC, Thelma L Start : 21-Sep-2013 End : [...] for 21 days Refills: 0 Ordered:23-Oct-2013 Long TELEGRAPH PRINTER MECHANICGorgemilena Gonzalez Start : 21-Sep-2013 End : 23-Oct-2013 [...] : 18-Dec-2013 End : 19-Mar-2014 Inactive Nystatin 548410 UNIT/GM External Cream 1 (one) Cream Cream [...] End : 13-Jul-2007 Discontinued CHANTIX STARTING MONTH SHUKRI, 0.5 MG X [...] (N95.0, 627.1) Comments: workup see Dr. bell [facility]. wanted to do endometrial biopsy and plan [...] . allie seen. saw Dr. hinds at [facility] noting suggest for this ringing in ear. [...] signs and symptoms now seen up at [facility] main and had MRI , US vertebrals [...] Comments: See Note; NOTES: [facility] of [address] [place] [address] OFFICE VISIT Date of Service: 06/22/17 MR#: [id number] Acct: [id number] Name: SAMMY MARTE Rep #: [id number] : 1940 Provider: Marci Zabala Age/Sex: 76/F [place] [facility] [place] Status: Signed Assessment AND Plan 1. SOB [...] chest congestion. She has not tried any ogrq-fux-gsgnzlv medications for these symptoms. She notices that [...] . She has an appointment with an manufacturing technician next week. 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) Surgical History History of mastectomy (Resolved) [...] Codes Time Spent - 3-10 minutes: Yes (22950) 06/27/17 1553 <Electronically signed by Marci ANAYA> Date __ Marci ANAYA Cosigner Signature: Date (if applicable) CC: 27-Jun-2017 Abdomen/Pelvis without Cont Result: Comments: See Note; NOTES: [facility] Imaging Services [address] [place] [address] Abdomen/Pelvis without Cont MR#: [id number] Acct: [id number] Name: SAMMY SWANN Rep #: [id number] : 1940 F 76 From: Manolo Sierra MD PCP: Marilu Uribe MD Status: REG CLI Study: Abdomen/Pelvis without Cont Date of Exam: 06/27/17 Exam# [id number] Ordering Dr: Marilu Uribe MD STUDY: CT [...] Manolo Sierra MD at 11:15 EST Tel [phone], Service support , CC: Marilu Uribe MD Relocation Director: Signed 22-Jun-2017 Chest 1 View (Portable) Result: Comments: See Note; NOTES: [facility] Imaging Services [address] [place] [address] Chest 1 View (Portable) MR#: [id number] Acct: [id number] Name: SAMMY SWANN Rep #: [id number] : 1940 F 76 From: Brian Shen PCP: Marilu Uribe MD Status: REG ER Study: Chest 1 View (Portable) Date of Exam: 06/22/17 Exam# [id number] Ordering Dr: Rodrigo Finley MD STUDY: X-RAY [...] CC: Marilu Uribe MD; Rodrigo Finley MD Relocation Director: Signed 15-Jun-2017 Emergency Department Summary Result: Comments: See Note; NOTES: [facility] Medical Records Department [address] [place] [address] Emergency Department Summary 06/15/17 0016 MR#: [id number] Acct: [id number] Name: SAMMY SWANN Rep #: [id number] : 1940 76 From: Maury Carmen PCP: [...] is held. She is referred to an manufacturing technician pending appo intment. No new foods. No [...] pressure This note was generat ed with [employer] dictation software. It may contain incorrect words, [...] Take steroids as prescribed. Follow-up with her manufacturing technician's for evaluation as referred by your PCP. What to do if you have Problems For any increased pain, shortness of breath, bleeding, nausea o r vomiting, chest pain, or any unexpected problems, contact your Primary Care Provider. Call [facility] ([phone]) or report to the closest Emergency Room. Call 911 if necessary. 06/15/17 00 21 <Electronically signed by Maury Carmen> Date Maury Carmen Cosigner Signature (If Indicated): Date CC: Marilu Uribe MD 05-Feb-2017 Emergency Department Summary Result: Comments: See Note; NOTES: [facility] Medical Records Department [address] [place] [address] Emergency Department Summary 02/05/17 191 MR#: [id number] Acct: [id number] Name: SAMMY SWANN Rep #: [id number] : 1940 76 From: Anna Rincon MD PCP: Marilu Uribe MD Status: DEP ER - ER [...] and she was worried about taking any evtk-vqj-ykaeuxk medications at home for allergies. Physical Examination: [...] Allergic reaction This note was generated with [employer] dictation software. It may contain incorrect words, [...] your Primary Care Provider. Call [facility] ([phone]) or report to the closest Emergency Room. Call [phone] if necessary. 02/05/17 2344 <Electronically signed by Anna Rincon MD> Date Anna Rincon MD Cosigner Signature (If Indicated ): Date CC: Marilu Uribe MD 05-Feb-2017 Discharge Instruction Result: Comments: See Note; NOTES: [facility] Medical Records Department [address] [place] [address] Discharge Instruction 02/05/172235 MR#: [id number] Acct: [id number] Name: Boris SWANN Rep #: [id number] : 1940 76 From: Anna Rincon MD [...] your Primary Care Provider. Call [facility] ([phone]) or report to the closest Emergency Room. Call 911 i f necessary. 02/05/172235 <Electronically signed by Anna Rincon MD> Date Anna Rincon MD Cosigner Signature (If Indicated): D ate CC: Marilu Uribe MD 07-Jul-[address] Lung Screening Result: Comments: See Note; NOTES: [facility] Imaging Services [address] [place] [address] Lung Screening MR#: [id number] Acct: [id number] Name: LUCIE SWANN Rep #: [id number] : 1940 F 75 From: Manolo Sierra MD PCP: Marilu Uribe MD Status: [facility] CLI Study: Low Dose CT Lung Screening Date of Exam: 07/07/16 Exam# [id number] Ordering Dr: Charlotte Uribe MD STUDY: CT [...] Manolo Sierra MD at 9:52 EDT Tel [phone], Service support [phone], CC: Marilu Uribe MD Relocation Director: Signed 24-Feb-2016 Dexa Bone Density Study (HP) Result: Comments: See Note; NOTES: [facility] Imaging Services [address] [place] [address] Verdana 4d Dexa Bone Density Study (HP) MR#: [id number] Acct: [id number] Name: ANGELES SWANN Rep #: [id number] : 1940 F 75 From: Manolo Sierra MD PCP: Marilu Uribe MD Status: REG CLI Study: Dexa Bone Density Study (HP) Date of Exam: 02/24/16 Exam# [id number] Ordering Dr: Marilu Abreu MD STUDY: DUAL [...] Manolo Sierra MD at 12:31 EDT Tel [phone], Service support [phone], CC: Marilu Uribe MD Relocation Director: Signed 27-Jan-2016 12 Lead Electrocardiogram Result: Comments: See Note; NOTES: [facility] Cardiovascular Services [address] [place] [address] 12 Lead EKG 01/24/161955 MR#: [id number] Acct: [id number] Name: SAMMY SWANN Rebecca del real #: [id number] : 1940 75 From: Rigoberto Tadeo MD [...] ECG Confirmed by FAYE DELGADILLO, RIGOBERTO ([id number]), telegraph editor FABIEN COVARRUBIAS (56) on 01/27/2016 3:55:07 PM Referred By: KALLI Confirmed By:RIGOBERTO TADEO MD 01/27/16 1555 Date Rigoberto Tadeo MD CC: Marilu Uribe MD Date Dictated: 01/24/161955 Date Transcribed: 01/24/161955 Relocation Director: Signed 25-Jan-2016 Emergency Department Summary Result: Comments: See Note; NOTES: [facility] Medical Records Department [address] [place] [address] Emergency Department Summary MR#: [id number] Acct: [id number] Name: SAADIA SWANN Rep #: [id number] : 1940 75 From: Selene Sullivan MD [...] ad a bovine valve replacement at the [facility] back in July. PHYSICAL EXAMINATION: [...] bed. Case was initially discussed with Dr. Fxo, who confirmed that he does not manage this type of patient. She will likely need stenting as opposed to endarterectomy because she has already had the endarterectomies and he recommended transfer and the patient requested the [facility] where she has been a patient in the past. I am cu rrently awaiting their call and presuming I am able to get a receiving physician. She will be transferred there in stable condition. DIAGNOSES: 1. Critical carotid stenosis with symptoms. 2. Hypertensi on. 3. Hypokalemia. 4. Anemia. MD Julienne Wilkerson C: Marilu Uribe MD T: [facility] JOB: [id number] 01/25/16 1520 <Electronically signed by Selene Sullivan MD> Date Selene Sullivan MD Cosigner Signature (If Indicated): Date CC: Marilu Uribe MD Date Dictated: 01/25/1624 Date Transcribed: 01/25/1624 Relocation Director: Signed 24-Jan-2016 CTA Head W/WO Contrast Result: Comments: See Note; NOTES: [facility] Imaging Services [address] [place] [address] Verdana 4d CTA Head W/WO Contrast MR#: [id number] Acct: [id number] Name: JUANITOSAMMY R #: [id number] : 1940 F 75 From: Catherine Lomas DO PCP: Marilu Uribe MD Status: REG ER Study: CTA Head W/WO Contrast Date of Exam: 01/24/16 Exam# [id number] Ordering Dr: Selene Sullivan MD STUD Y: [...] There is no demonstrated aneurysm of the [place] of [place]. There is no demo nstrated abnormality of the visualized brain. CT/CTA Head W/WO Contrast IMPRESSION: Incomplete [place] of [place], a normal anatomic variation. No nstenotic calcification of the cavernous portions of the internal carotid arteries. Otherwise normal intracranial CTA. Electronically Signed: Catherine Lomas DO at 22:59 EDT Tel , Service support [phone], CC: Selene Sullivan MD; Marilu Uribe MD Relocation Director: Signed 24-Jan-2016 CTA Head W/WO Contrast Result: Comments: See Note; NOTES: [facility] Imaging Services [address] [place] [address] Verdana 4d CTA Head W/WO Contrast MR#: [id number] Acct: [id number] Name: SAMMY SWANN #: [id number] : 1940 F 75 From: Catherine Lomas DO PCP: Marilu Uribe MD Status: DEP ER Study: CTA Head W/WO Contrast Date of Exam: 01/24/16 Exam# [id number] Ordering Dr: Selene Sullivan MD ADDE NDUM [...] at 18:02 EDT Tel , Service support [phone], 02/24/16 1802 Date cc: Selene Sullivan MD; [...] There is no demonstrated aneurysm of the [place] of [place]. There is no demonstrated abnormality of the visualized brain. ORDER #: CT/CTA Head W/WO Contrast IMPRESSION: Incomplete [place] of [place], a normal anatomic variation. Nonstenotic calcification of the cavernous portions of the internal carotid arteries. Otherwise no rmal intracranial CTA. Electronically Signed: Catherine Lomas DO at 22:59 EDT Tel , Service support [phone], CC: Selene Sullivan MD; Marilu Uribe MD Relocation Director: Signed 24-Jan-2016 CTA Neck W/WO Contrast Result: Comments: See Note; NOTES: [facility] Imaging Services [address] [place] [address] Verdana 4d CTA Neck W/WO Contrast MR#: [id number] Acct: [id number] Name: SAMMY SWANN ep #: [id number] : 1940 F 75 From: Catherine Lomas DO PCP: Marilu Uribe MD Status: DEP ER Study: CTA Neck W/WO Contrast Date of Exam: 01/24/16 Exam# [id number] Ordering Dr: Selene Sullivan MD ADDE NDUM [...] t 17:44 EDT Tel , Service support [phone], 02/24/16 1744 Date cc: Selene Sullivan MD; [...] at 23:09 EDT Tel , Service support [phone], N.B. : The above information has been verbally conveyed by Catherine Lomas DO to Selene Sullivan MD, Referring Physician, on 01/24/2016 23:15:16 (ET). CC: Selene Sullivan MD; Marilu Uribe MD Relocation Director: Signed 24-Jan-2016 CTA Neck W/WO Contrast Result: Comments: See Note; NOTES: [facility] Imaging Services [address] [place] [address] Verdana 4d CTA Neck W/WO Contrast MR#: [id number] Acct: [id number] Name: SAMMY SWANN #: [id number] : 1940 F 75 From: Catherine Lomas DO PCP: Marilu Uribe MD Status: REG ER Study: CTA Neck W/WO Contrast Date of Exam: 01/24/16 Exam# [id number] Ordering Dr: Selene Sullivan MD STUD Y: [...] at 23:09 EDT Tel , Service support [phone], N.B. : The above information has been verbally conveyed by Catherine Lomas DO to Selene Sullivan MD, Referring Physicia n, on 01/24/2016 23:15:16 (ET). CC: Selene Sullivan MD; Marilu Uribe MD Relocation Director: Signed 15-Nov-2014 Transvaginal Non- Result: Comments: See Note; NOTES: [facility] Imaging Services [address] [place] [address] Ultrasound Report MR#: [id number] Acct: [id number] Name: SAMMY SWANN Rep #: [id number] : 1940 F 74 From: Isidro Walden DO PCP: Marilu Uribe MD Status: REG CLI Study: Transvaginal Non- Date of Exam: 11/15/14 Exam# [id number] Ordering Dr: Marilu Uribe MD STUDY: ULTRASOUND [...] Isidro Walden DO at 13:25 EDT Tel [phone], Service support , CC: Marilu Uribe MD Relocation Director: Signed 15-Nov-2014 Pelvic (Non ) Result: Comments: See Note; NOTES: [facility] Imaging Services [address] [place] [address] Ultrasound Report MR#: [id number] Acct: [id number] Name: SAMMY SWANN Rep #: [id number] : 1940 F 74 From: Isidro Walden DO PCP: Marilu Uribe MD Status: REG CLI Study: Pelvic (Non ) Date of Exam: 11/15/14 Exam# [id number] Ordering Dr: Marilu Uribe MD STUDY: ULT [...] Isidro Walden DO at 13:25 EDT Tel [phone], Service support [phone], CC: Marilu Uribe MD Relocation Director: Signed 22-Oct-2014 Knee 4 or More Views Result: Comments: See Note; NOTES: [facility] Imaging Services [address] [place] [address] Radiology Report MR#: [id number] Acct: [id number] Name: SAMMY SWANN Rep #: [id number] : 1940 F 74 From: Hector Oliva MD PCP: Marilu Uribe MD Status: REG CLI Study: Knee 4 or More Views Date of Exam: 10/22/14 Exam# [id number] Ordering Dr: Verna Silveira DO STUDY: X- [...] MD at 16:21 EDT , Service support [phone], RAD/Knee 4 or More Views IMPRESSION: Medial compartmental arthrosis with small joint effusion. Electronically Signed: Hector Oliva MD at 16:21 EDT , Servic e support [phone], CC: Verna Silveira DO; Marilu Uribe MD Relocation Director: Signed 15-May-2014 Emergency Department Summary Result: Comments: See Note; NOTES: [facility] Medical Records Department [address] [place] [address] Emergency Department Summary MR#: [id number] Acct: [id number] Name: SAMMY SWANN Rep #: [id number] : 1940 73 From: Donnie Escobar MD [...] C: Marilu Meek MD T: [facility] JOB: [id number] 05/15/14 0838 <Electronically signed by Donnie Escobar MD> Date Donnie Escobar MD CC: Marilu Uribe MD; Toro escalante MD Date Dictated: 05/11/141321 Date Transcribed: 05/11/141321 Relocation Director: Signed 11-May-2014 Discharge Instruction Result: Comments: See Note; NOTES: [facility] Medical Records Department [address] [place] [address] Discharge Instruction 05/11/14 1317 MR#: [id number] Acct: [id number] Name: SAMMY SWANN Rep #: [id number] : 1940 73 From: Donnie Escobar MD [...] any unexpected problems, contact your doctor. Call [employer] [facility] ) or report to the closest Emergency Room. Call 911 if necessary. 05/11/14 1319 <Electronically si gned by Donnie Escobar MD> Date Donnie Escobar MD Cosigner Signature (If Indicated): Date CC: Marilu Uribe MD 05-Sep-2013 Emergency Department Summary Result: Comments: See Note; NOTES: [facility] Medical Records Department [address] [place] [address] Emergency Department Summary MR#: [id number] Acct: [id number] Name: SAMMY SWANN Rep #: [id number] : 1940 73 From: Michael Jain MD [...] Julienne Okeefe C: Marilu Carroll MD T: [facility] JOB: [id number] 09/05/13 1701 <Electronically signed by Michael Jain MD> Date ___ Michael Jain MD CC: Marilu Uribe MD; Tanner Carroll MD Date Dictated: 09/01/134 Date Transcribed: 09/01/13423 Relocation Director: Signed 05-Sep-2013 Emergency Department Summary Result: Comments: See Note; NOTES: [facility] Medical Records Department [address] [place] [address] Emergency Department Summary MR#: [id number] Acct: [id number] Name: SAMMY SWANN Rep #: [id number] : 1940 73 From: Michael Jain MD [...] rate 83, LVH. No acute signs of VT or ischemia. No old EKG available for [...] patient and she will be transferred to [facility]. T mayi are on page, awaiting to speak to their physician. MD Julienne Okeefe C: Marilu Carroll MD T: [facility] JOB: [id number] 09/05/13 1701 <Electronically signed by Michael Jain MD> Date Michael Jain MD CC: Marilu Uribe MD; Tanner Carroll MD Date Dictated: 09/01/13447 Date Transcribed: 09/01/13447 Relocation Director: Signed 03-Sep-2013 12 Lead Electrocardiogram Result: Comments: See Note; NOTES: [facility] Cardiovascular Services [address] [place] [address] 12 Lead EKG 09/01/13255 MR#: [id number] Acct: [id number] Name: SAADIA SWANN Rep #: [id number] : 1940 73 From: Fredi Aponte MD [...] Confirmed by JOSE MANUEL DELGADILLO, FREDI ([id number]), telegraph editor FABIEN COVARRUBIAS (56) on 2013 10:38:27 AM Referred By: Michael Jain Confirmed By:FREDI APONTE MD CC: Marilu Uribe MD Date Dictated: 09/01/13255 Date Transcribed: 09/01/13255 Relocation Director: Signed 01-Sep-2013 Chest 1 View (Portable) Result: Comments: See Note; NOTES: [facility] Imaging Services [address] [place] [address] Radiology Report MR#: [id number] Acct: [id number] Name: SAMYM SWANN Rep #: [id number] : 1940 F 73 From: Zeinab Escalona PCP: Marilu Uribe MD Status: DEP ER Study: Chest 1 View (Portable) Date of Exam: 09/01/13 Exam# [id number] Ordering Dr: Michael Jain MD STUDY: X-RAY [...] at 9:04 EDT Tel , Service support [phone], RAD/Chest 1 View (Portabl e) IMPRESSION: No evidence of acute cardiopulmonary disease. Stable chest. Electronically Signed: Virgen Escalona MD at 9:04 EDT Tel , Service support [phone], Fax CC: Marilu Uribe MD; Michael Jain MD Relocation Director: Signed Family History Unknown Family Member Name Dates Details Father Comments: Anxiety/depression, cancer (muscle cancer and pancreatic?) Status: Active Mother Comments: Breast 35 yo, colon polyps & HBP & Heart disease Status: Active Sister 1 Comments: Heart.lung disease, HBP & High cholesterol. Status: Active Social History Name Dates Details Caffeine Use Comments: 4 Cups QD Status: Active Current Work/Study Status Comments: Retired, [employer] Status: Active Exercise History Comments: mow yard and house work..not sedentary, walk hour a day use seat belt Status: Active Living Situation Comments: lives with sister, son live in [place] Status: Active No Drug Use Status: Active [...] kg/m2 Body Surface Area Calculated 1.78 m2 0-Wam-275917:35 Temperature 97.6 f Comments: Method: Temporal Pulse [...] kg/m2 Body Surface Area Calculated 1.77 m2 05-Mfb-611599:57 Temperature 97.6 f Comments: Method: Temporal Pulse [...] kg/m2 Body Surface Area Calculated 1.77 m2 45-Mhm-142900:51 Temperature 96.8 f Pulse 86 /min Comments: [...] Results Date Description Value Details :01 CALCIFIDIOL (87361) VIT D 25 Comments: PATIENT NOT FASTINGPERFORMED BY: [employer]6370 [facility] [id number] Vitamin D, 25-Hydroxy 31.1 ng/mL (Normal) Range: 30.0-100.0 Comments: Vitamin D deficiency has been defined by the [place] of[place]icine and an Endocrine Society practice guideline as alevel of serum 25-OH vitamin D less than 20 ng/mL (1,2).The Endocrine Society went on to further define vitamin Dinsufficiency as a level between 21 and 29 ng/mL (2).1. IOM ([place] of Medicine). 2010. Dietary reference intakes for calcium and D. [place]: The National Academies Press.2. Kayleen MF, Rohit NC, Roxanna BUENO, et al. Evaluation, treatment, and prevention of vitamin D deficiency: an Endocrine Society clinical practice guideline. JCEM. 2010; 96(7):1911-30. 34-Msk-512885:01 Metabolic Panel, Comprehensive Comments: PATIENT NOT FASTINGPERFORMED BY: [employer] Chnmnh9597 [employer] [facility] [id number] (86556) ALT (SGPT) 15 [iU]/L (Normal) Range: 0-32 [...] 8-27 Glucose 110 mg/dL (Abnormal) Range: 65-99 67-Jcj-678285:01 Ferritin (43941) Comments: PATIENT NOT FASTINGPERFORMED BY: [facility] RehabilitationAtlantiCare [facility] CampusRfwrpo6974 [facility] [id number] Ferritin, Serum 15 ng/mL (Normal) Range: 15-150 59-Utu-795883:01 CBC (Auto) (18582) Comments: PATIENT NOT FASTINGPERFORMED BY: LabCoAtlantiCare [facility], [facility] CampusNthrzm4901 [facility] [id number] Platelets 354 {x10E3/uL} (Normal) Range: 150-379 RDW 17.2 % (Abnormal) Range: 12.3-15.4 MCHC 31.7 g/dL (Normal) Range: 31.5-35.7 MCH 24.5 pg (Abnormal) Range: 26.6-33.0 MCV 77 fL (Abnormal) Range: 79-97 Hematocrit 32.5 % (Abnormal) Range: 34.0-46.6 Hemoglobin 10.3 g/dL (Abnormal) Range: 11.1-15.9 RBC 4.20 {x10E6/uL} (Normal) Range: 3.77-5.28 WBC 8.0 {x10E3/uL} (Normal) Range: 3.4-10.8 10-Lwz-093682:27 HgA1C , Office (90193) HgA1C , Office 6.4 % (Normal) Range: 4.6 - 7.1 31-Hgb-353280:27 CBC, Platelets & Auto Diff Comments: PATIENT NOT FASTINGPERFORMED BY: LabCoAtl[facility], [facility] CampusIeeaoy8647 [facility] [id number] (64424) Immature Grans (Abs) 0.0 {x10E3/uL} (Normal) Range: [...] 3.77-5.28 WBC 8.7 {x10E3/uL} (Normal) Range: 3.4-10.8 87-Lqz-836819:27 Ferritin (93066) Comments: PATIENT NOT FASTINGPERFORMED BY: LabCoAtl[facility] CampusClctni2728 [facility] [id number] Ferritin, Serum 12 ng/mL (Abnormal) Range: 15-150 01-Trg-042070:27 Metabolic Panel, Basic Comments: PATIENT NOT FASTINGPERFORMED BY: LabCoAtl[facility] CampusUkeweh3071 [facility] [id number] (77935) Calcium 9.0 mg/dL (Normal) Range: 8.7-10.3 Carbon [...] 8-27 Glucose 123 mg/dL (Abnormal) Range: 65-99 4-Nht-357198:23 CBC W/Diff, Automated Comments: Order Date: 06/24/17Order Info: 0184-1 - CBCDOrder Info: 75382-8 - [facility] [address] [place], [address] Absolute Lymph 1.48 {X10_3/ul} (Normal) [...] 4.2-5.4 WBC 10.0 K/mm3 (Normal) Range: 4.4-11.0 3-Rog-455616:23 Comprehensive Metabolic Profil Comments: Order Date: 06/24/17Order Info: 0786-1 - CMPOrder Info: 1798-8 - AMYComments: stat all labs.Order Info: 3040-3 - [facility] [address] [place], [place], [address] GAP 7 (Normal) Range: 5-15 CO2 29.0 mmol/L (Normal) Range: 21.0-32.0 CL 105 mmol/L (Normal) Range: 98-107 K 4.6 mmol/L (Normal) Range: 3.5-5.1 NA 141 mmol/L (Normal) Range: 136-145 T BILI 0.50 mg/dL (Normal) Range: 0.20-1.00 ALT 17 U/L (Normal) Range: 13-56 Comments: Please note revised ALT reference range jdyfxctxe30/28/2018. ALK P 71 U/L (Normal) Range: 45-117 [...] A.D.A. criteria.Please note revised GLUCOSE reference range hfnolahvv87/02/2018. 2-Gmp-892117:23 Erythrocyte Sed Rate Comments: Order Date: 06/24/17Order Info: 0184-1 - CBCDOrder Info: 33641-6 - [facility] [address] [place], [place], [address] SED RATE 13 mm/h (Normal) Range: 0-30 5-Bqu-937751:23 Amylase (43600) Comments: stat all labs.; Order Date: 06/24/17Order Info: 0786-1 - CMPOrder Info: 1798-8 - AMYComments: stat all labs.Order Info: 3040-3 - [facility] [address] [place], [address] SELENE 35 U/L (Normal) Range: 25-115 6-Oli-243786:23 Lipase (41701) Comments: Order Date: 06/24/17Order Info: 0786- 1 - CMPOrder Info: 1798-8 - AMYComments: stat all labs.Order Info: 3040-3 - [facility] Sapsawrcsx05[address], [address] LIPASE 151 U/L (Normal) Range: 73-393 :52 FLU A+B DIRECT AG, (RAPID) (83439) FLU A+B DIRECT AG, (RAPID) negative (Normal) 23-Hrf-287892:32 Basic Metabolic Profile (BMP) Comments: 'TROP' Serial specimen #1, #2, #3, or #4: 1[facility] Jdhegigfvz13[address]. [place], [place], [address] GAP 9 (Normal) Range: 5-15 CO2 28.0 [...] A.D.A. criteria.Please note revised GLUCOSE reference range oxigldmgg96/02/2018. 20-Ucj-527715:32 CBC W/Diff, Automated Comments: [facility] Lslqujcpds62[address]. [place], [place], [address] Absolute Lymph 3.33 {X10_3/ul} (Normal) Range: 0.83-4.51 [...] 4.2-5.4 WBC 12.4 K/mm3 (Abnormal) Range: 4.4-11.0 42-Zll-825024:32 Troponin-I Comments: 'TROP' Serial specimen #1, #2, #3, or #4: [address] [place] [address] Husrbdsqxp0881 Eugenie [place], [place], [address] TROPONIN-I < 0.02 ng/mL (Normal) Comments: TROPONIN-I EXPECTED VALUES <0.05 NEGATIVE 0.06 - 0.59 AT RISK OF VT > OR = 0.60 SUGGEST VT 81-Rgf-616448:05 C1 Esterase Inhibitor, Comments: PATIENT NOT FASTINGPERFORMED BY: [facility] Cuweehfizs5994 [facility] [id number] BY: [facility] Ecqnbp0610 [facility] [id number] [facility] C1 Est.Inhib.Funct. 107 {%mean_normal} Comments: Abnormal <41 Equivocal 41 - 67 Normal >67 (Normal) 09-Jun-19 Thyroid Peroxidase (TPO) 7 {IU/mL} (Normal) Comments: PATIENT NOT FASTINGPERFORMED BY: [address] [id number] BY: LabBuddytruk Qmqpfr4945 Brown RoadDublin [place] [id number] 1814:05 Ab Range: 0-34 68-Xtp-300170:05 COMPLEMENT C1Q (40675) Comments: coming out complement NEED C6CGDSAEBL INHIBITOR; PATIENT NOT FASTINGPERFORMED BY: [address] [id number] BY: [facility] RehabilitationSherry Ville 9164570 Brown RoadDublin [place] [id number] C1 Esterase Inhibitor, Serum 47 mg/dL (Abnormal) Range: 21-39 Comments: Results verified by repeat testing :05 CBC (Auto) (28582) Comments: PATIENT NOT FASTINGPERFORMED BY: [address] [id number] BY: [facility] Gzweed9934 [address] [facility] SystemDublin [place] [id number] Platelets 358 {x10E3/uL} (Normal) Range: 150-379 RDW 16.2 % (Abnormal) Range: 12.3-15.4 MCHC 31.2 g/dL (Abnormal) Range: 31.5-35.7 MCH 24.2 pg (Abnormal) Range: 26.6-33.0 MCV 78 fL (Abnormal) Range: 79-97 Hematocrit 32.4 % (Abnormal) Range: 34.0-46.6 Hemoglobin 10.1 g/dL (Abnormal) Range: 11.1-15.9 RBC 4.18 {x10E6/uL} (Normal) Range: 3.77-5.28 WBC 9.7 {x10E3/uL} (Normal) Range: 3.4-10.8 21-Gqv-556813:05 Vitamin B-12 Comments: PATIENT NOT FASTINGPERFORMED BY: [address] [id number] BY: [facility] Zhzpfv4616 Brown RoadDublin [place] [id number] (cyanocobalamin) (61361) Vitamin B12 667 pg/mL (Normal) Range: 232-1245 65-Kjy-301590:05 Iron Binding Capacity Comments: PATIENT NOT FASTINGPERFORMED BY: [facility] [id number] BY: [facility] Qnpdkd1895 Brown RoadDublin [place] [id number] (TIBC) (40359) Iron Saturation 7 % (Abnormal) Range: 15-55 Iron, Serum 30 ug/dL (Normal) Range: 27-139 UIBC 407 ug/dL (Abnormal) Range: 118-369 Iron Bind.Cap.(TIBC) 437 ug/dL (Normal) Range: 250-450 44-Eqq-836207:05 Ferritin (72038) Comments: PATIENT NOT FASTINGPERFORMED BY: [facility] [id number] BY: [facility] Gpjniq5524 Brown RoadDublin [place] [id number] Ferritin, Serum 11 ng/mL (Abnormal) Range: 15-150 74-Aqp-099660:05 GLORIA (ANTINUCLEAR ANTIBODY) Comments: all these labs to Dr. carvalho; PATIENT NOT FASTINGPERFORMED BY: [facility] [id number] BY: [facility] Neluph4355 Brown RoadDublin [place] [id number] (31506) GLORIA Direct Negative (Normal) 32-Hqh-868011:05 ESR-F (SED RATE Comments: PATIENT NOT FASTINGPERFORMED BY: [employer] [id number] BY: [facility] Aziiey2678 Brown RoadDublin [place] [id number] ERYTHROCYTE - FEMALE) (51692) Sedimentation Rate-Westergren 25 mm/h (Normal) Range: 0-40 02-Gxp-515040:05 ANCA-C (ANTI NEUTROPHIL Comments: PATIENT NOT FASTINGPERFORMED BY: [employer] [id number] BY: [employer] Swpuok8250 [facility] [id number] CYTOPLASMIC ANTIBODY) Atypical pANCA <1:20 {titer} Comments: [...] follow up testing ofpositive sera with both PA-3 and MPO-ANCA enzyme immunoassays. Asmany as 5% serum samp les are positive only by EIA.Ref. AM J Clin Pathol 1999;111:507-513. Cytoplasmic (C-ANCA) <1:20 {titer} (Normal) Antiproteinase 3 (PA-3) Abs <3.5 U/mL (Normal) Range: 0.0-3.5 Antimyeloperoxidase (MPO) Abs <9.0 U/mL (Normal) Range: 0.0-9.0 77-Mic-633085:05 TSH (87543) Comments: PATIENT NOT FASTINGPERFORMED BY: [employer] [id number] BY: [facility] RehabilitationAtlantiCare [facility] Center, Atlantic [facility] CampusBzpbpp5266 [facility] [id number] TSH 3.920 {uIU/mL} (Normal) Range: 0.450-4.500 40-Ioy-768828:03 HgA1C , Office (94684) HgA1C , Office 6.3 % (Normal) Range: 4.6 - 7.1 17-Efa-310235:58 Platelet Count on Citrated Comments: PATIENT NOT FASTINGPERFORMED BY: [employer] Global PrivateHenry Ford West Bloomfield Hospital6370 [facility] [id number] Bld Plt Count, Citrated Bld 295 {X10E3/uL} (Normal) Range: 150-379 71-Fes-406116:58 PTT (Activated Partial Comments: PATIENT NOT FASTINGPERFORMED BY: LabHenry [facility] Hospital6370 [facility] [id number] Thromboplastin Time) (71009) aPTT 26 {sec} (Normal) Range: 24-33 Comments: This test has not been validated for monitoring unfractionated heparintherapy. aPTT-based therapeutic ranges for unfractionated heparintherapy have not been established. For general guidelines onHeparin monitoring, refer to the [facility] Directory of Services. 67-Lta-664197:58 PT (Prothrobim Time) (55081) Comments: PATIENT NOT FASTINGPERFORMED BY: [facility]6370 [facility] [id number] Prothrombin Time 11.1 {sec} (Normal) Range: 9.1-12.0 INR 1.1 (Normal) Range: 0.8-1.2 Comments: Reference interval is for non-anticoagulated patients. . Suggested INR therapeutic range for Vitamin K anta gonist therapy: Standard Dose (moderate intensity therapeutic range): 2.0 - 3.0 Higher intensity therapeutic range 2.5 - 3.5 46-Uha-315440:24 Bedside Glucose Comments: [facility] LaboratoryPoint of Paqt45[address] [place] [address] BEDSIDE GLU 195 mg/dL (Abnormal) Range: 70-110 Comments: MANAGEMENT OF PATIENT CARE PER NURSING PROTOCOL 6-Efp-621878:34 CBC (Auto) (79396) Comments: PATIENT NOT FASTINGPERFORMED BY: [facility]6370 [facility] [id number] Platelets 294 {x10E3/uL} (Normal) Range: 150-379 RDW 15.3 % (Normal) Range: 12.3-15.4 MCHC 32.1 g/dL (Normal) Range: 31.5-35.7 MCH 26.7 pg (Normal) Range: 26.6-33.0 MCV 83 fL (Normal) Range: 79-97 Hematocrit 34.9 % (Normal) Range: 34.0-46.6 Hemoglobin 11.2 g/dL (Normal) Range: 11.1-15.9 RBC 4.19 {x10E6/uL} (Normal) Range: 3.77-5.28 WBC 7.4 {x10E3/uL} (Normal) Range: 3.4-10.8 :34 Metabolic Panel, Comments: PATIENT NOT FASTINGPERFORMED BY: [facility] RehabilitationAdvanced Care Hospital of Southern New MexicoYknqod6685 [facility] [id number] Information: NURSE DRAW Comprehensive (40005) ALT (SGPT) 16 [iU]/L (Normal) Range: 0-32 [...] 115 mg/dL (Abnormal) Range: 65-99 :34 Ferritin (98284) Comments: PATIENT NOT FASTINGPERFORMED BY: [employer] Global PrivateHenry Ford West Bloomfield Hospital6370 [facility] [id number] Ferritin, Serum 19 ng/mL (Normal) Range: 15-150 04-Wvd-553436:17 HgA1C , Office (58549) HgA1C , Office 6.3 % (Normal) Range: 4.6 - 7.1 27-Cva-304098:13 LIPOPROTEIN, BLD, BY NMR Comments: copy to Dr. carroll; PATIENT WAS FASTINGPERFORMED BY: BN [facility] Bonukrogwg4222 [facility] [id number] BY: CB [facility] Rrpvhs5848 [facility] [id number] (11884) LP-IR Score 71 (Abnormal) Comments: INSULIN RESISTANCE MARKER <--Insulin Sensitive Insulin Resistant--> Percentile in Reference PopulationInsulin Resistance ScoreLP-IR Score Low 25th 50th 75th High <27 27 45 63 >63LP-IR Score is inaccurate if patient is non-fasting. .The LP-IR score is a laboratory developed i [facility] that has beenassociated with insulin [...] 1600 - 2000 Very High > 2000 21-Yyq-879753:13 Ferritin (73970) Comments: PATIENT WAS FASTINGPERFORMED BY: [employer] [id number] BY: [employer] LabHoudini, Inc.70 [facility] [id number] Ferritin, Serum 36 ng/mL (Normal) Range: 15-150 35-May-685404:13 CBC with auto diff Comments: PATIENT WAS FASTINGPERFORMED BY: [employer] LabCoUserVoiceCutkqpukpg[address] [id number] BY: [employer] LabCoImpact Driven Qbyvrl3078 [facility] [id number] (35777) Immature Grans (Abs) 0.0 {x10E3/uL} (Normal) Range: [...] 3.77-5.28 WBC 7.2 {x10E3/uL} (Normal) Range: 3.4-10.8 31-Cwg-370196:13 METABOLIC PANEL, Comments: PATIENT WAS FASTINGPERFORMED BY: [facility] [address] [id number] BY: CB [facility] [address] [id number] COMPREHENSIVE (72566) ALT (SGPT) 13 [iU]/L (Normal) Range: 0-32 [...] Glucose, Serum 121 mg/dL (Abnormal) Range: 65-99 6-Zfg-199876:39 HgA1C , Office (53291) HgA1C , Office 6.4 % (Normal) Range: 4.6 - 7.1 95-Umm-694434:20 Fecal Occult Blood , Office (79409) Fecal Occult Blood , Office (Inhouse) negative (Normal) 20-Lih-691547:52 Stool Guiac Test, Office (Medicare) (G0107) Stool Guiac Test, Office (Medicare) Negative (Normal) 4-Edn-590952:54 Ferritin (96655) Comments: recheck in 4 weeks; PATIENT WAS FASTINGPERFORMED BY: Chosen.fm6370 RJMetricsJackson [facility] [id number] Ferritin, Serum 139 ng/mL (Normal) Range: 15-150 6-Ddf-221700:54 Iron Binding Capacity (TIBC) Comments: recheck in 4 weeks; PATIENT WAS FASTINGPERFORMED BY: [facility]70 [facility]aBlue [facility] Hospital [id number] (24922) Iron Saturation 14 % (Abnormal) Range: 15-55 Iron, Serum 50 ug/dL (Normal) Range: 27-139 UIBC 296 ug/dL (Normal) Range: 118-369 Iron Bind.Cap.(TIBC) 346 ug/dL (Normal) Range: 250-450 :54 CBC WITH MANUAL DIFF (14687) Comments: recheck in 4 weeks; PATIENT WAS FASTINGPERFORMED BY: Pathflow70 ArzedaBlue Ridge Regional Hospital [id number]; fu 12-16 Immature Grans (Abs) 0.0 {x10E3/uL} [...] Protein, 8.3 mg/L (Abnormal) Comments: PERFORMED BY: [facility] RehabilitationAtlantiCare Regional Medical Center, Atlantic City CampusNamgbc317[address] [place] [address] [id number] BY: [address] [id number] 3:14 Quant Range: 0.0-4.9 7-Cce-804214:14 CBC, Platelet, No Comments: PERFORMED BY: [facility] RehabilitationAtlantiCare [facility] Medical Center, [facility] CampusWttyzr3515[address] [place] [address] [id number] BY: [address] [id number] Differential Platelets 346 {x10E3/uL} Range: 150-379 (Normal) RDW 16.2 % (Abnormal) Range: 12.3-15.4 MCHC 32.3 g/dL (Normal) Range: 31.5-35.7 MCH 25.3 pg (Abnormal) Range: 26.6-33.0 MCV 78 fL (Abnormal) Range: 79-97 Hematocrit 30.3 % (Abnormal) Range: 34.0-46.6 Hemoglobin 9.8 g/dL (Abnormal) Range: 11.1-15.9 RBC 3.88 {x10E6/uL} Range: 3.77-5.28 (Normal) WBC 7.9 {x10E3/uL} Range: 3.4-10.8 (Normal) Ferritin, Serum 12 ng/mL (Abnormal) Comments: PERFORMED BY: Ro[facility]yn [facility] [id number] BY: [facility] [id number] :14 Range: 15-150 Folate (Folic Acid), 14.8 ng/mL (Normal) Comments: PERFORMED BY: Roovyn [facility] SystemRoundarchBlue Ridge Regional Hospital [id number] BY: [facility] [id number] :14 Serum Comments: A serum folate concentration of less than 3.1 ng/mL isconsidered to represent clinical deficiency. :14 Iron and TIBC Comments: PERFORMED BY: [employer] [facility] [id number] BY: [facility] [id number] Iron Saturation 7 % (Abnormal) Range: 15-55 Iron, Serum 32 ug/dL (Normal) Range: 27-139 UIBC 395 ug/dL (Abnormal) Range: 118-369 Iron Bind.Cap.(TIBC) 427 ug/dL (Normal) Range: 250-450 Methylmalonic Acid, 288 nmol/L (Normal) Comments: PERFORMED BY: [employer] [facility] [id number] BY: [address] [id number] 3:14 Serum Range: 0-378 Potassium, Serum 4.2 mmol/L (Normal) Comments: PERFORMED BY: LabCoAtlantiCare Regional Medical Center, [facility] CampusNfgzxt7157 [facility] [id number] BY: [address] [id number] 3:14 Range: 3.5-5.2 Reticulocyte Count 1.5 % (Normal) Comments: PERFORMED BY: [facility] Vaacdj1324 [facility] [id number] BY: [address] [id number] 3:14 Range: 0.6-2.6 Sedimentation 24 mm/h (Normal) Comments: PERFORMED BY: [facility] Eyfusm7392 [facility] [id number] BY: [address] [id number] 3:14 Rate-Westergren Range: 0-40 Vitamin B12 532 pg/mL (Normal) Comments: PERFORMED BY: [facility] Kjedlr0982 [facility] [id number] BY: [address] [id number] 3:14 Range: 211-946 2-Txo-762908:05 Urinalysis, Complete Comments: note - microscopic exam done on unspun urine because only 1ml sample obtainedHow was Urine Obtained? [facility] Shoelkpxvh4625 PATRICK Snider, [id number] MUCUS, URINE 0 SEEN {/hpf} (Normal) BACTERIA [...] CLARITY Sl. Cloudy (Normal) COLOR Yellow (Normal) 1-Apj-833937:25 Basic Metabolic Profile (BMP) Comments: 'TROP' Serial specimen #1, #2, #3, or #4: [address] [place] [address] Jzzopsdxmr1563 [address]. [place], [place], [address] GAP 6 (Normal) Range: 5-15 CO2 31.0 [...] 126 mg/dLsuggests DIABETES MELLITUS per A.D.A. criteria. 4-Svm-243180:25 CBC W/Diff, Automated Comments: [facility] Hdztnpuivh1670 [place], [address] Absolute Lymph 1.98 {X10_3/ul} (Normal) [...] 4.2-5.4 WBC 8.7 K/mm3 (Normal) Range: 4.4-11.0 7-Pna-494798:25 Troponin-I Comments: 'TROP' Serial specimen #1, #2, #3, or #4: 1[facility] Pwuyhgyime7813 [place], [address] TROPONIN-I < 0.02 ng/mL (Normal) Comments: TROPONIN-I EXPECTED VALUES <0.05 NEGATIVE 0.06 - 0.59 AT RISK OF VT > OR = 0.60 SUGGEST VT 29-Ljn-439104:54 CBC (Auto) (90984) Comments: PATIENT NOT FASTINGPERFORMED BY: LabSandra Ville 9386070 [facility] [id number] BY: [address] [id number] Inf ormation: C03988, 523974 Platelets 374 {x10E3/uL} (Normal) Range: 150-379 RDW 14.8 % (Normal) Range: 12.3-15.4 MCHC 33.0 g/dL (Normal) Range: 31.5-35.7 MCH 27.6 pg (Normal) Range: 26.6-33.0 MCV 84 fL (Normal) Range: 79-97 Hematocrit 32.4 % (Abnormal) Range: 34.0-46.6 Hemoglobin 10.7 g/dL (Abnormal) Range: 11.1-15.9 RBC 3.87 {x10E6/uL} (Normal) Range: 3.77-5.28 WBC 9.4 {x10E3/uL} (Normal) Range: 3.4-10.8 :54 RETICULOCYTE COUNT (14690) Comments: PATIENT NOT FASTINGPERFORMED BY: [employer] [id number] BY: [address] [id number] Reticulocyte Count 2.0 % (Normal) Range: 0.6-2.6 :54 LDH (LD) (LACTATE Comments: PATIENT NOT FASTINGPERFORMED BY: [facility] Medical CenterBuddytruk[address] [id number] BY: [address] [id number] DEHYDROGENASE) (38130) LDH 213 [iU]/L (Normal) Range: 119-226 :54 Methymalonic Acid, Serum Comments: PATIENT NOT FASTINGPERFORMED BY: [facility] Medical CenterBuddytruk[address] [id number] BY: [address] [id number] (49161) Methylmalonic Acid, Serum 238 nmol/L (Normal) Range: 0-378 07-Ekf-554808:54 Vitamin B-12 Comments: PATIENT NOT FASTINGPERFORMED BY: [facility] RehabilitationAdvanced Care Hospital of Southern New MexicoYskepn8429 [facility] [id number] BY: [address] [id number] (cyanocobalamin) (24849) Vitamin B12 565 pg/mL (Normal) Range: 211-946 49-Tjq-855522:54 Iron Binding Capacity Comments: PATIENT NOT FASTINGPERFORMED BY: [facility] RehabilitationAtlantiCare [facility] Medical Center, [facility] CampusJrwyss4578 [facility] [id number] BY: [address] [id number] (TIBC) (44776) Iron Saturation 7 % (Abnormal) Range: 15-55 Iron, Serum 31 ug/dL (Normal) Range: 27-139 UIBC 434 ug/dL (Abnormal) Range: 118-369 Iron Bind.Cap.(TIBC) 465 ug/dL (Abnormal) Range: 250-450 95-Nyo-939726:54 Ferritin (73833) Comments: PATIENT NOT FASTINGPERFORMED BY: [facility] RehabilitationSherry [place] 9164570 [facility] [id number] BY: [address] [id number] Ferritin, Serum 10 ng/mL (Abnormal) Range: 15-150 :54 Folic Acid Serum (55070) Comments: PATIENT NOT FASTINGPERFORMED BY: [facility] RehabilitationSherry [place] 9164570 [facility] [id number] BY: [address] [id number] Folate (Folic Acid), Serum 12.7 ng/mL (Normal) Comments: A serum folate concentration of less than 3.1 ng/mL isconsidered to represent clinical deficiency. 02-Jfx-328441:54 Metabolic Panel, Comments: PATIENT NOT FASTINGPERFORMED BY: [employer] Global PrivateHenry Ford [facility] Bloom[facility] Hospital6370 [facility] [id number] Information: [id number],[id number] Comprehensive (90159) ALT (SGPT) 20 [iU]/L (Normal) Range: 0-32 [...] Glucose, Serum 132 mg/dL (Abnormal) Range: 65-99 72-Juu-241984:54 CBC (Auto) (40121) Comments: PATIENT NOT FASTINGPERFORMED BY: [facility] Yyyvhu6344 [facility] [id number] Platelets 323 {x10E3/uL} (Normal) Range: 150-379 RDW 16.9 % (Abnormal) Range: 12.3-15.4 MCHC 32.8 g/dL (Normal) Range: 31.5-35.7 MCH 26.7 pg (Normal) Range: 26.6-33.0 MCV 82 fL (Normal) Range: 79-97 Hematocrit 36.6 % (Normal) Range: 34.0-46.6 Hemoglobin 12.0 g/dL (Normal) Range: 11.1-15.9 RBC 4.49 {x10E6/uL} (Normal) Range: 3.77-5.28 WBC 8.1 {x10E3/uL} (Normal) Range: 3.4-10.8 :54 Iron (64831) Comments: PATIENT NOT FASTINGPERFORMED BY: [facility] Kkkdbz8406 [facility] [id number] Iron, Serum 40 ug/dL (Normal) Range: 27-139 Comments: Please note reference interval change :54 Ferritin (26215) Comments: PATIENT NOT FASTINGPERFORMED BY: [facility] Ifwfht9176 [facility] [id number] Ferritin, Serum 22 ng/mL (Normal) Range: 15-150 :01 TSH (30630) Comments: PATIENT NOT FASTINGPERFORMED BY: [facility] Efuwgp4443 [facility] [id number] TSH 2.620 {uIU/mL} (Normal) Range: 0.450-4.500 :01 CBC (Auto) (59189) Comments: PATIENT NOT FASTINGPERFORMED BY: [facility] Ewrvgp5439 [facility] [id number] Information: 544140,S41875 Platelets 316 {x10E3/uL} (Normal) Range: 150-379 RDW 17.8 % (Abnormal) Range: 12.3-15.4 MCHC 31.2 g/dL (Abnormal) Range: 31.5-35.7 MCH 25.4 pg (Abnormal) Range: 26.6-33.0 MCV 82 fL (Normal) Range: 79-97 Hematocrit 35.3 % (Normal) Range: 34.0-46.6 Hemoglobin 11.0 g/dL (Abnormal) Range: 11.1-15.9 RBC 4.33 {x10E6/uL} (Normal) Range: 3.77-5.28 WBC 8.8 {x10E3/uL} (Normal) Range: 3.4-10.8 35-Yow-617931:01 Ferritin (33843) Comments: PATIENT NOT FASTINGPERFORMED BY: [facility] Yrtqzs1795 Stephanie Juarezgillian [place] [id number] Ferritin, Serum 20 ng/mL (Normal) Range: 15-150 :54 Pap IG (Image Comments: Source.............Cervical;EndocervicalNo. of containers..01 CYTYC Thin Prep VialPATIENT NOT FASTINGPERFORMED BY: =G [facility] Xrklqoqtpb867 [address] PlazaSherryrleston [place] [id number] BY: WB L Guided) abCCloudjutsu120 [address]ley PlazaCharleston [place] [id number] Note: PAPSMR (Normal) Comments: The Pap smear [...] PRESENT.THIS SPECIMEN WAS RESCREENED PART OF OUR HALL WORKER PROGRAM.Satisfactory for evaluati on. Endocervical and/or squamous metaplasticcells (endocervical component) are present.627.1 ; Postmenopausal bleedingCynthitamar Horta Dry Wall Installer (ASCP)Usha Davis Dry Wall Installer (ASCP) 14-Lcs-77665:54 Thin Prep Pap Comments: Source.............Cervical;EndocervicalNo. of containers..01 CYTYC Thin Prep VialPATIENT NOT FASTINGPERFORMED BY: =G [facility] Zvbzspkrmr711 [address] PlazaSherryrleston [place] [id number] BY: WB L (43633) [facility] Emjiwsfgjd923 [address] PlazaCharleston [place] [id number] Information: [id number] Age Gdln ACOG Testing AGE6 (Normal) Comments: <21 or >65 or no age provided :56 Urinalysis, Office (96393) UA - LEUKOCYTE ESTERASE Small (Normal) UA [...] :13 Culture, Body Fluid Comments: Test performed at:[facility] Hcuuezjwny5279 [facility] [place] [address] ; ordered by another doctor CUBF See Note (Normal) Comments: List Antibiotics Last 48 Hours? UList Antibiotics to be Started? UComments: LEFT KNEEGram StainGram Stain No organisms seen No White Blood Cells Body Fluid CultNO GROWTH IN 14 DAYS Cult, AnaerobicNo anaerobic bacteria isolated. :13 Miscellaneous Lab Procedure Comments: Comments: LEFT KNEETest(s) Ordered: PROTEIN SYNOVIAL LC#[id number] Test(s) Ordered by Physician: GLUCOSE SYNOVIAL LC#[id number] performed at:[facility] Eajsqhbero6946 [place] [address] MISC Comments: TEST RESULT UNITS [...] theclinical context for interpretation. TESTING PERFORMED AT [facility]. ORIGINAL REPORT ON FILE IN LAB CONTAINS ADDITIONAL TEST SITE INF ORMATION. 96-Xov-907094:13 Miscellaneous Lab Procedure 2 Comments: Comments: LEFT KNEETest(s) Ordered: PROTEIN SYNOVIAL LC#[id number] Test(s) Ordered by Physician: GLUCOSE SYNOVIAL LC#[id number] performed at:[address] [id number] [facility] Comments: TEST RESULT UNITS REFERENCE INTERVALProtein, Body [...] the clinical context forinterpretation. TESTING PERFORMED AT [facility]. ORIGINAL REPORT ON FILE IN LAB CONTAINS ADDITIONAL TEST SITE INFORMA TION. 10-Wnn-303945:13 Synovial Fluid RBC, WBC AND Comments: Test performed at:[facility] Qyxcvhvihk6895 [place], [place] [address] ; ordered by Dr. Raoul Cordova PATH [...] % (Normal) Comments: PATIENT NOT FASTINGPERFORMED BY: [employer]flow70 [facility] [id number] Information: [id number] 8 Range: 0.6-2.6 :27 CBC With Differential/Platelet Comments: PATIENT WAS FASTINGPERFORMED BY: [employer] [facility] [id number] Information: [id number] Immature Grans (Abs) 0.0 {x10E3/uL} (Normal) Range: [...] Panel (14) Comments: PATIENT WAS FASTINGPERFORMED BY: [facility] CampusCzmbef9934 [facility] [id number] ALT (SGPT) 13 [iU]/L (Normal) Range: 0-32 [...] ng/mL (Normal) Comments: PATIENT WAS FASTINGPERFORMED BY: [facility] [facility] [id number] 27 Range: 15-150 Lipid Panel With LDL/HDL Comments: PATIENT WAS FASTINGPERFORMED BY: [facility] [facility] [id number] Ratio LDL/HDL Ratio 2.0 {ratio_units} (Normal) Range: [...] Microscopic Examination Comments: PATIENT WAS FASTINGPERFORMED BY: [facility]6[address] [facility] [id number] Bacteria Few (Normal) Mucus Threads Present (Normal) Epithelial Cells (non renal) 0-10 {/hpf} (Normal) Range: 0 - 10 RBC 3-10 {/hpf} (Abnormal) Range: 0 - 2 WBC 11-30 {/hpf} (Abnormal) Range: 0 - 5 Urinalysis, Complete Comments: PATIENT WAS FASTINGPERFORMED BY: [facility]6[address] [facility] [id number] Microscopic Examination See below: (Normal) Comments: Microscopic was indicated and was performed. Nitrite, Urine Negative (Normal) Urobilinogen,Semi-Qn 0.2 mg/dL (Normal) Range: 0.0-1.9 Bilirubin Negative (Normal) Occult Blood 1+ (Abnormal) Ketones Negative (Normal) Glucose Negative (Normal) Protein Trace (Normal) WBC Esterase 2+ (Abnormal) Appearance Clear (Normal) Urine-Color Yellow (Normal) pH 6.5 (Normal) Range: 5.0-7.5 Specific Marston 1.021 (Normal) Range: 1.005-1.030 :37 CBC, Platelets & Auto Comments: PATIENT NOT FASTINGPERFORMED BY: [facility] [id number] Information: [id number] Diff (65162) Immature Grans (Abs) 0.0 {x10E3/uL} (Normal) Range: [...] Panel, Comprehensive Comments: PATIENT NOT FASTINGPERFORMED BY: [facility]Henry [facility] [id number] (42785) ALT (SGPT) 16 [iU]/L (Normal) Range: 0-32 [...] Glucose, Serum 115 mg/dL (Abnormal) Range: 65-99 91-Uiu-643623:37 Ferritin (82158) Comments: PATIENT NOT FASTINGPERFORMED BY: [facility] Cziahw0699 [facility] [id number] Ferritin, Serum 20 ng/mL (Normal) Range: 15-150 13-Kba-81801:49 Lipid Panel (35030) Comments: copy to Dr. carroll all labs.; PATIENT WAS FASTINGPERFORMED BY: [facility] Fengef4579 [facility] [id number] LDL/HDL Ratio 1.9 {ratio_units} (Normal) Range: 0.0-3.2 [...] Panel, Comprehensive Comments: PATIENT WAS FASTINGPERFORMED BY: [facility]CoAtlantiCare [facility] CampusDhulbf8876 [facility] [id number] (79022) ALT (SGPT) 12 [iU]/L (Normal) Range: 0-32 [...] 99 mg/dL (Normal) Range: 65-99 :49 Ferritin (36722) Comments: PATIENT WAS FASTINGPERFORMED BY: LabCoAtlantiCare [facility] CampusNbuvyq6069 [facility] [id number] Ferritin, Serum 21 ng/mL (Normal) Range: 15-150 :49 CBC W/AUTO DIFF WBC Comments: PATIENT WAS FASTINGPERFORMED BY: [facility]CoAtlantiCare [facility] CampusIegzlo8034 [facility] [id number] Information: [id number] (56898) Immature Grans (Abs) 0.0 {x10E3/uL} (Normal) Range: [...] 3.77-5.28 WBC 6.6 {x10E3/uL} (Normal) Range: 3.4-10.8 6-Xdb-938235:40 Metabolic Panel, Comments: PATIENT NOT FASTINGPERFORMED BY: [facility] RehabilitationAtlantiCare [facility] CampusWvqhwc3562 [facility] [id number] Information: [id number] Comprehensive (59684) ALT (SGPT) 14 [iU]/L (Normal) Range: 0-32 [...] Glucose, Serum 79 mg/dL (Normal) Range: 65-99 5-Joc-410929:40 CBC (Auto) (24482) Comments: PATIENT NOT FASTINGPERFORMED BY: LabCoAtlantiCare [facility] CampusIsetqg4212 [facility] [id number] Platelets 332 {x10E3/uL} (Normal) Range: 150-379 RDW 15.9 % (Abnormal) Range: 12.3-15.4 MCHC 32.0 g/dL (Normal) Range: 31.5-35.7 MCH 26.6 pg (Normal) Range: 26.6-33.0 MCV 83 fL (Normal) Range: 79-97 Hematocrit 34.7 % (Normal) Range: 34.0-46.6 Hemoglobin 11.1 g/dL (Normal) Range: 11.1-15.9 RBC 4.18 {x10E6/uL} (Normal) Range: 3.77-5.28 WBC 8.3 {x10E3/uL} (Normal) Range: 3.4-10.8 :40 Ferritin (72281) Comments: PATIENT NOT FASTINGPERFORMED BY: LabCoAtlantiCare [facility], [facility] CampusPmsnrh7263 [facility] [id number] Ferritin, Serum 35 ng/mL (Normal) Range: 15-150 [...] <0.05 NEGATIVE0.06 - 0.59 AT RISK OF VT> OR = 0.60 SUGGEST VT 88-Zsn-852203:16 Lipid Panel (76491) Comments: PATIENT WAS FASTINGPERFORMED BY: [facility]6[address] [facility] [id number] LDL/HDL Ratio 1.8 {ratio_units} (Normal) Range: 0.0-3.2 LDL Cholesterol Calc 115 mg/dL (Abnormal) Range: 0-99 VLDL Cholesterol Nicolás 20 mg/dL (Normal) Range: 5-40 Cholesterol, Total 200 mg/dL (Abnormal) Range: 100-199 HDL Cholesterol 65 mg/dL (Normal) Comments: According to ATP-III Guidelines, HDL-C >59 mg/dL is considered anegative risk factor for CHD. Triglycerides 101 mg/dL (Normal) Range: 0-149 73-Ziw-736980:16 Ferritin (44321) Comments: PATIENT WAS FASTINGPERFORMED BY: [place] 7444570 [facility] [id number] Ferritin, Serum 9 ng/mL (Abnormal) Range: 15-150 41-Yeb-946242:43 URINE MUKESH CULTURE-IDENTIFICATN Comments: PATIENT NOT FASTINGPERFORMED BY: [place] 7444570 [facility] [id number] Information: [id number] (99948) Result 1 MUG (Normal) Comments: Mixed urogenital flora10,000-25,000 colony forming units per mL Urine Final report (Normal) Culture,Comprehensive 85-Cif-531062:16 METABOLIC PANEL, COMPREHENSIVE Comments: PATIENT WAS FASTINGPERFORMED BY: [place] 7444570 [facility] [id number] (24563) ALT (SGPT) 11 [iU]/L (Normal) Range: 0-32 [...] Glucose, Serum 103 mg/dL (Abnormal) Range: 65-99 36-Yzc-157373:16 CBC WITH MANUAL DIFF Comments: PATIENT WAS FASTINGPERFORMED BY: LabSt. [facility] Rtowna1041 [facility] [id number] Information: [id number] (88643) Immature Grans (Abs) 0.0 {x10E3/uL} (Normal) Range: [...] 3.77-5.28 WBC 7.5 {x10E3/uL} (Normal) Range: 3.4-10.8 80-Nvq-791835:30 Urinalysis, Office (76543) UA - LEUKOCYTE ESTERASE Small (Normal) UA - NITRITE Negative (Normal) URINE UROBILINGN BLANCO TIMED Normal mg/dL (Normal) UA - PROTEIN Negative mg/dL (Normal) UA - PH 8 (Abnormal) UA - BLOOD Negative (Normal) UA - SPECIFIC GRAVITY 1.015 (Normal) UA - KETONES Negative mg/dL (Normal) UA - BILIRUBIN Negative (Normal) UA - GLUCOSE Negative (Normal) 25-Izm-523496:42 Lipid Panel (53378) Comments: PATIENT WAS FASTINGPERFORMED BY: [employer] [facility] [id number] LDL/HDL Ratio 1.8 {ratio_units} (Normal) Range: 0.0-3.2 LDL Cholesterol Calc 116 mg/dL (Abnormal) Range: 0-99 VLDL Cholesterol Nicolás 24 mg/dL (Normal) Range: 5-40 HDL Cholesterol 64 mg/dL (Normal) Comments: According to ATP-III Guidelines, HDL-C >59 mg/dL is considered anegative risk factor for CHD. Triglycerides 118 mg/dL (Normal) Range: 0-149 Cholesterol, Total 204 mg/dL (Abnormal) Range: 100-199 41-Rng-471887:42 CBC (Auto) (66452) Comments: PATIENT WAS FASTINGPERFORMED BY: RocketOnAtlantiCare Regional Medical Center, [facility] CampusVilwpb8003 [facility] [id number] Information: [id number] Platelets 292 {x10E3/uL} (Normal) Range: 155-379 RDW 15.7 % (Abnormal) Range: 12.3-15.4 MCH 27.6 pg (Normal) Range: 26.6-33.0 MCHC 32.1 g/dL (Normal) Range: 31.5-35.7 MCV 86 fL (Normal) Range: 79-97 Hematocrit 39.0 % (Normal) Range: 34.0-46.6 Hemoglobin 12.5 g/dL (Normal) Range: 11.1-15.9 RBC 4.53 {x10E6/uL} (Normal) Range: 3.77-5.28 WBC 6.4 {x10E3/uL} (Normal) Range: 3.4-10.8 28-Abq-116427:30 METABOLIC PANEL, COMPREHENSIVE Comments: PATIENT NOT FASTINGPERFORMED BY: [facility] Yglhhw8852 [facility] [id number] (73016) ALT (SGPT) 15 [iU]/L (Normal) Range: 0-32 [...] Glucose, Serum 104 mg/dL (Abnormal) Range: 65-99 82-Uwu-903929:30 CBC with manual diff Comments: PATIENT NOT FASTINGPERFORMED BY: LabCoAtlantiCare [facility], [facility] [place] CampusYduwto7066 Stephanie Velazquez [place] [id number] Information: [id number] (91894) Immature Grans (Abs) 0.0 {x10E3/uL} (Normal) Range: [...] 3.77-5.28 WBC 7.8 {x10E3/uL} (Normal) Range: 3.4-10.8 41-Efb-600880:30 Iron (02943) Comments: PATIENT NOT FASTINGPERFORMED BY: [facility]6[address] [facility] [id number] Iron, Serum 61 ug/dL (Normal) Range: 35-155 35-Ots-221389:30 Ferritin (22400) Comments: PATIENT NOT FASTINGPERFORMED BY: [place] 7444570 [facility] [id number] Ferritin, Serum 12 ng/mL (Abnormal) Range: 15-150 5-Neb-844104:40 CBC (Auto) (72652) Comments: PATIENT NOT FASTINGPERFORMED BY: [address] [id number] Information: [id number] Platelets 307 {x10E3/uL} (Normal) Range: 140-415 RDW 21.0 % (Abnormal) Range: 12.3-15.4 MCHC 31.6 g/dL (Normal) Range: 31.5-35.7 MCH 25.3 pg (Abnormal) Range: 26.6-33.0 MCV 80 fL (Normal) Range: 79-97 Hematocrit 34.8 % (Normal) Range: 34.0-46.6 Hemoglobin 11.0 g/dL (Abnormal) Range: 11.1-15.9 RBC 4.35 {x10E6/uL} (Normal) Range: 3.77-5.28 WBC 7.4 {x10E3/uL} (Normal) Range: 4.0-10.5 7-Lro-073597:40 Iron (85774) Comments: PATIENT NOT FASTINGPERFORMED BY: [place] 7444570 [facility] [id number] Iron, Serum 30 ug/dL (Abnormal) Range: 35-155 8-Pzt-922131:40 Ferritin (50518) Comments: PATIENT NOT FASTINGPERFORMED BY: [address] [id number] Ferritin, Serum 16 ng/mL (Normal) Range: 15-150 8-Qgo-539701:11 CBC (Auto) (90953) Comments: PATIENT NOT FASTINGPERFORMED BY: [address] [id number] Information: [id number] Platelets 428 {x10E3/uL} Range: 140-415 (Abnormal) RDW [...] EIA Negative (Normal) Comments: PERFORMED BY: [facility] [address] [id number] Information: [facility] 71-Vmb-50723:47 CBC With Differential/Platelet Comments: PERFORMED BY: [facility] Envgbs3936 [facility] [id number] Immature Grans (Abs) 0.0 {x10E3/uL} (Normal) Range: [...] Comp. Metabolic Panel (14) Comments: PERFORMED BY: LabCoAtlantiCare [facility], [facility] CampusVeeckk2969 [facility] [id number] ALT (SGPT) 14 [iU]/L (Normal) Range: 0-32 [...] Serum 6 ng/mL (Abnormal) Comments: PERFORMED BY: [facility] RehabilitationAdvanced [facility] Hospital of Southern New MexicoXygxhd1663 [facility] [id number] 47 Range: 13-150 : Iron, Serum 28 ug/dL (Abnormal) Comments: PERFORMED BY: [facility] Global PrivateHenry [facility] Hospital[address] [place] [address] [id number] Range: 35-155 : LDH 203 [iU]/L (Normal) Comments: PERFORMED BY: [facility] RehabilitationAtlantiCare [facility] CampusGmoxoj6793 [facility] [id number] 47 Range: 0-214 :47 Lipid Panel With LDL/HDL Comments: PERFORMED BY: [facility] RehabilitationAtl[facility]Care [facility], [facility] CampusDtlzzg4463 [facility] [id number] Ratio LDL/HDL Ratio 1.6 {ratio_units} Range: 0.0-3.2 [...] Count 1.8 % (Normal) Comments: PERFORMED BY: [facility] PrivateHenry [facility] Hospital[address] [place] [address] [id number] 8:47 Range: 0.6-2.6 3-Dyf-022606:36 CHEST, PA AND LATERAL Radiology Report See [...] Sierra M.D.November 27, 2011 at 7:18:04 AM [id number] Signed GP/GP If you are the referring physician and would like to consult with theradiologist who provided this interpretation, please co ntact Natasha Cade at [phone]. If this radiologist is unavailable, youwill be directed to another radiologist to assist. If you are a patient with a question regarding this report, pleas econtactyour referring physician directly. Professional Interpretation Provided By: [employer], Phone , These documents contain legally protected [...] on 11/27/11723 Sign by: Manolo Sierra MD 61-Dnd-77315:35 MICROALBUMIN: CREATININE RATIO Comments: PATIENT WAS FASTINGPERFORMED BY: LabCoAtlantiCare [facility] CampusNcnlhw2678 [facility] [id number] (91445) AND (40274) Microalb/Creat Ratio 7.6 {mg/g_creat} (Normal) Range: 0.0-30.0 Microalbumin, Urine 5.9 ug/mL (Normal) Range: 0.0-17.0 Creatinine, Urine 77.3 mg/dL (Normal) Range: 15.0-278.0 09-Kdz-316853:09 Comp. Metabolic Panel (14) Comments: PATIENT WAS FASTINGPERFORMED BY: Pathflow70 [facility] [id number] ALT (SGPT) 16 [iU]/L (Normal) Range: 0-40 [...] mg/dL (Normal) Range: 65-99 :35 LIPID PANEL (83767) Comments: PATIENT WAS FASTINGPERFORMED BY: [facility]ordBlue [facility] [id number] LDL/HDL Ratio 1.8 {ratio_units} (Normal) Range: 0.0-3.2 LDL Cholesterol Calc 112 mg/dL (Abnormal) Range: 0-99 VLDL Cholesterol Nicolás 28 mg/dL (Normal) Range: 5-40 HDL Cholesterol 62 mg/dL (Normal) Comments: According to ATP-III Guidelines, HDL-C >59 mg/dL is considered anegative risk factor for CHD. Triglycerides 139 mg/dL (Normal) Range: 0-149 Cholesterol, Total 202 mg/dL (Abnormal) Range: 100-199 08-Vow-91128:35 CBC WITH MANUAL DIFF Comments: PATIENT WAS FASTINGPERFORMED BY: LabCoSherry Ville 9164570 [facility] [id number] Information: [id number] (91894) Immature Grans (Abs) 0.0 {x10E3/uL} (Normal) Range: [...] {x10E3/uL} (Normal) Range: 4.0-10.5 :57 LIPID PANEL (01844) Comments: PATIENT WAS FASTINGPERFORMED BY: Pathflow70 [facility] [id number] LDL/HDL Ratio 1.7 {ratio_units} (Normal) Range: 0.0-3.2 [...] MANUAL DIFF Comments: PATIENT WAS FASTINGPERFORMED BY: [employer]6370 [facility] [id number] Information: [id number] (29922) Immature Grans (Abs) 0.0 {x10E3/uL} (Normal) Range: [...] MANUAL DIFF Comments: PATIENT WAS FASTINGPERFORMED BY: [facility]6370 [facility] [id number] Information: [id number] (48306) Immature Grans (Abs) 0.0 {x10E3/uL} (Normal) Range: [...] {x10E3/uL} (Normal) Range: 4.0-10.5 :28 LIPID PANEL (05988) Comments: PATIENT WAS FASTINGPERFORMED BY: Pathflow70 [facility] [id number] LDL/HDL Ratio 2.0 {ratio_units} (Normal) Range: 0.0-3.2 [...] PANEL, COMPREHENSIVE Comments: PATIENT WAS FASTINGPERFORMED BY: biNu Cswxwg1997 [facility] [id number] (41291) ALT (SGPT) 19 [iU]/L (Normal) Range: 0-40 [...] mg/dL (Normal) Range: 65-99 :51 LIPID PANEL (05135) Comments: PATIENT WAS FASTINGPERFORMED BY: Pathflow70 [employer] [facility] [id number] LDL Cholesterol Calc 105 mg/dL (Abnormal) Range: [...] METABOLIC PANEL, Comments: PATIENT WAS FASTINGPERFORMED BY: Pathflow70 [facility] [id number] Information: [id number] COMPREHENSIVE (96853) ALT (SGPT) 20 [iU]/L (Normal) Range: 0-40 [...] Glucose, Serum 85 mg/dL (Normal) Range: 65-99 09-Alf-33513:00 Microscopic Examination Comments: PERFORMED BY: LabHenry [facility] Hospital6370 [facility] [id number] Bacteria None seen (Normal) Crystal Type Amorphous Sediment (Normal) Crystals Present (Abnormal) Mucus Threads Present (Normal) Epithelial Cells (non renal) 0-10 {/hpf} (Normal) Range: 0 - 10 RBC None seen {/hpf} (Normal) Range: 0 - 3 WBC 0-5 {/hpf} (Normal) Range: 0 - 5 :22 Microscopic Examination Comments: PATIENT WAS FASTINGPERFORMED BY: [employer] Iuhaff3259 [facility] [id number] Bacteria None seen (Normal) Mucus Threads Present (Normal) Crystal Type Calcium Oxalate (Normal) Crystals Present (Abnormal) Cast Type Hyaline casts (Normal) Casts Present {/lpf} (Abnormal) Epithelial Cells (non renal) 0-10 {/hpf} (Normal) Range: 0 - 10 RBC 0-3 {/hpf} (Normal) Range: 0 - 3 WBC 6-10 {/hpf} (Abnormal) Range: 0 - 5 :22 LIPID PANEL (39356) Comments: PATIENT WAS FASTINGPERFORMED BY: Pathflow70 [facility] [id number] LDL Cholesterol Calc 119 mg/dL (Abnormal) Range: 0-99 LDL/HDL Ratio 2.4 {ratio_units} (Normal) Range: 0.0-3.2 VLDL Cholesterol Nicolás 33 mg/dL (Normal) Range: 5-40 HDL Cholesterol 49 mg/dL (Normal) Comments: According to ATP-III Guidelines, HDL-C >59 mg/dL is considered anegative risk factor for CHD. Triglycerides 164 mg/dL (Abnormal) Range: 0-149 Cholesterol, Total 201 mg/dL (Abnormal) Range: 100-199 :22 URINALYSIS (85918) Comments: PATIENT WAS FASTINGPERFORMED BY: Pathflow70 [facility] [id number] Microscopic Examination See below: (Normal) Nitrite, Urine Negative (Normal) Urobilinogen,Semi-Qn 0.2 mg/dL (Normal) Range: 0.0-1.9 Bilirubin Negative (Normal) Occult Blood Negative (Normal) Glucose Negative (Normal) Ketones Negative (Normal) Protein Trace (Normal) WBC Esterase 2+ (Abnormal) Appearance Clear (Normal) pH 7.0 (Normal) Range: 5.0-7.5 Specific Marston 1.025 (Normal) Range: 1.005-1.030 Urine-Color Yellow (Normal) :22 CBC (Auto) (27702) Comments: PATIENT WAS FASTINGPERFORMED BY: [facility] Global PrivateHenry [facility] Hospital6370 [facility] [id number] Platelets 274 {x10E3/uL} (Normal) Range: 140-415 RDW 14.5 % (Normal) Range: 11.7-15.0 Hematocrit 40.6 % (Normal) Range: 34.0-44.0 MCH 30.9 pg (Normal) Range: 27.0-34.0 MCHC 34.7 g/dL (Normal) Range: 32.0-36.0 MCV 89 fL (Normal) Range: 80-98 Hemoglobin 14.1 g/dL (Normal) Range: 11.5-15.0 RBC 4.57 {x10E6/uL} (Normal) Range: 3.80-5.10 WBC 7.0 {x10E3/uL} (Normal) Range: 4.0-10.5 :22 Metabolic Panel, Comments: PATIENT WAS FASTINGPERFORMED BY: LabCoAtlantiCare [facility], [facility] CampusPwxkvb9861 [facility] [id number] Information: [id number] Comprehensive (94904) ALT (SGPT) 15 [iU]/L (Normal) Range: 0-40 [...] Glucose, Serum 91 mg/dL (Normal) Range: 65-99 01-Nmu-633143:04 CBC With Differential/Platelet Comments: A courtesy copy of this report has been sent [phone].PATIENT WAS FASTINGClinical Information: [id number] PERFORMED BY: LabHenry [facility]6370 [facility] [id number] Baso (Absolute) 0.0 {x10E3/uL} (Normal) Range: 0.0-0.2 [...] 11.7-15.0 WBC 6.6 {x10E3/uL} (Normal) Range: 4.0-10.5 60-Awn-291892:04 Comp. Metabolic Panel (14) Comments: A courtesy copy of this report has been sent [phone].PATIENT WAS FASTINGPERFORMED BY: LabSt. [facility] Crdmts5351 [facility] [id number] A/G Ratio 1.6 (Normal) Range: 1.1-2.5 Albumin, [...] copy of this report has been sent [phone].PATIENT WAS FASTINGPERFORMED BY: [facility] Xbyzpw6831 [facility] [id number] 11:04 (Normal) Range: 100-250 33-Jgr-010280:04 Lipid Panel With LDL/HDL Comments: A courtesy copy of this report has been sent [phone].PATIENT WAS FASTINGPERFORMED BY: [facility] Opyyff3334 [facility] [id number] Ratio Cholesterol, Total 210 mg/dL (Abnormal) Range: 100-199 HDL Cholesterol 57 mg/dL (Normal) Comments: According to ATP-III Guidelines, HDL-C >59 mg/dL is considered anegative risk factor for CHD. LDL Cholesterol Calc 129 mg/dL (Abnormal) Range: 0-99 LDL/HDL Ratio 2.3 {ratio_units} (Normal) Range: 0.0-3.2 Triglycerides 118 mg/dL (Normal) Range: 0-149 VLDL Cholesterol Nicolás 24 mg/dL (Normal) Range: 5-40 52-Nlt-711771:04 Microscopic Examination Comments: A courtesy copy of this report has been sent [phone].PATIENT WAS FASTINGPERFORMED BY: [facility] RehabilitationAtlantiCare [facility] CampusIhrgsy5430 [facility] [id number] Bacteria None seen (Normal) Cast Type Hyaline casts (Normal) Casts Present {/lpf} (Abnormal) Crystal Type Calcium Oxalate (Normal) Comments: Amorphous Sediment Crystals Present (Abnormal) Epithelial Cells (non renal) 0-10 {/hpf} (Normal) Range: 0 - 10 Mucus Threads Present (Normal) RBC None seen {/hpf} (Normal) Range: 0 - 3 WBC 0-5 {/hpf} (Normal) Range: 0 - 5 77-Jft-164210:04 Urinalysis, Routine Comments: A courtesy copy of this report has been sent [phone].PATIENT WAS FASTINGPERFORMED BY: [facility]6370 [facility] [id number] Appearance Cloudy (Abnormal) Bilirubin Negative (Normal) Glucose Negative (Normal) Ketones Negative (Normal) Microscopic Examination See below: (Normal) Nitrite, Urine Negative (Normal) Occult Blood Negative (Normal) pH 7.0 (Normal) Range: 5.0-7.5 Protein 1+ (Abnormal) Specific Marston 1.023 (Normal) Range: 1.005-1.030 Urine-Color Yellow (Normal) Urobilinogen,Semi-Qn 0.2 mg/dL (Normal) Range: 0.0-1.9 WBC Esterase 1+ (Abnormal) 34-Gru-82134:00 URINALYSIS W/O MICRO (87275) Comments: PERFORMED BY: [facility] Hyacdr7945 [facility] [id number] Bilirubin Negative (Normal) Microscopic Examination See below: (Normal) Nitrite, Urine Negative (Normal) Occult Blood Negative (Normal) Urobilinogen,Semi-Qn 0.2 mg/dL (Normal) Range: 0.0-1.9 Glucose Negative (Normal) Ketones Negative (Normal) Protein Trace (Normal) WBC Esterase Trace (Abnormal) Appearance Cloudy (Abnormal) pH 7.0 (Normal) Range: 5.0-7.5 Specific Marston 1.021 (Normal) Range: 1.005-1.030 Urine-Color Yellow (Normal) :00 METABOLIC PANEL, COMPREHENSIVE Comments: PERFORMED BY: [facility] [facility] PrivateHenry [facility]6370 [facility] [id number] (03048) A/G Ratio 1.6 (Normal) Range: 1.1-2.5 Albumin, [...] Glucose, Serum 84 mg/dL (Normal) Range: 65-99 31-Cea-10850:00 LIPID PANEL (56465) Comments: PERFORMED BY: LabHenry [facility] Hospital6370 [facility] [id number] HDL Cholesterol 52 mg/dL (Normal) Comments: According to ATP-III Guidelines, HDL-C >59 mg/dL is considered anegative risk factor for CHD. LDL Cholesterol Calc 121 mg/dL (Abnormal) Range: 0-99 LDL/HDL Ratio 2.3 {ratio_units} (Normal) Range: 0.0-3.2 VLDL Cholesterol Nicolás 29 mg/dL (Normal) Range: 5-40 Cholesterol, Total 202 mg/dL (Abnormal) Range: 100-199 Triglycerides 143 mg/dL (Normal) Range: 0-149 16-Ptv-90812:00 CBC WITH MANUAL DIFF (84383) Comments: send copy to Dr. sav carroll and yakov; PERFORMED BY: TempoIQFormerly [facility] [id number] Baso (Absolute) 0.0 {x10E3/uL} (Normal) Range: 0.0-0.2 [...] 3.80-5.10 WBC 6.0 {x10E3/uL} (Normal) Range: 4.0-10.5 07-Egs-05464:43 Metabolic Panel, Comprehensive Comments: in three months (approximately); PATIENT WAS FASTINGClinical Information: ADD DRAW FEE [id number] ADD J 25188 PERFORMED BY: TempoIQDublin [place] [address] [id number] (30977) A/G Ratio 1.7 (Normal) Range: 1.1-2.5 Albumin, [...] Sodium, Serum 142 mmol/L (Normal) Range: 135-145 59-Ehi-04094:43 Lipid Panel (63609) Comments: PATIENT WAS FASTINGPERFORMED BY: JOHNATHON [facility] Tizlrl0490 [facility] [id number] Cholesterol, Total 207 mg/dL (Abnormal) Range: 100-199 [...] CREATININE RATIO Comments: PATIENT WAS FASTINGPERFORMED BY: RocketOnAtlantiCare Regional Medical Center, [facility] CampusZtvvef9952 [facility] [id number] (87255) AND (48783) Creatinine, Urine 224.8 mg/dL (Normal) Range: 15.0-278.0 Microalb/Creat Ratio 3.4 {ug/mg_creat} (Normal) Range: 0.0-30.0 Microalbum.,U,Random 7.7 ug/mL (Normal) Range: 0.0-17.0 : METABOLIC PANEL, COMPREHENSIVE Comments: PATIENT WAS FASTINGPERFORMED BY: Chosen.fm6370 [facility] [id number] (79554) A/G Ratio 1.6 (Normal) Range: 1.1-2.5 Albumin, [...] Serum 89 mg/dL (Normal) Range: 65-99 If -South African >59 mL/min/1.73 Comments: Note: Persistent reduction for [...] mmol/L (Normal) Range: 135-145 :00 LIPID PANEL (72105) Comments: PATIENT WAS FASTINGPERFORMED BY: [employer] [place] [id number] Cholesterol, Total 208 mg/dL (Abnormal) Range: 100-199 [...] Range: 5-40 :00 CBC WITH MANUAL DIFF (59026) Comments: PATIENT WAS FASTINGClinical Information: ADD DRAW FEE [id number] ADD J 86700 PERFORMED BY: [facility] [id number] Baso (Absolute) 0.1 {x10E3/uL} (Normal) Range: 0.0-0.2 [...] Report See Note (Normal) Comments: Exam Number: [id number] FIVE VIEW LUMBAR SPINE AP, LATERAL, BOTH [...] artery disease Coronary artery disease : Reviewed Facial Operator Letter Indication: Coronary artery disease Tobacco use [...] I/D Cyst/Abscess Indication: Sebaceous cyst Planned Observations MICROALBUMIN: CREATININE RATIO (49429) AND (59126)Indication: Diabetes mellitus type II, controlled, with no complications (Renamed from Controlled type 2 diabetes mellitus without complication) On: 4-Phf-139246:23 Request URINALYSIS (97502)Indication: Diabetes mellitus type II, controlled, with no complications (Renamed from Controlled type 2 diabetes mellitus without complication) On: 3-Vnc-580534:23 Request CBC WITH MANUAL DIFF (16109)Indication: Diabetes mellitus type II, controlled, with no complications (Renamed from Controlled type 2 diabetes mellitus without complication) On: 9-Sqh-786346:23 Request Metabolic Panel, Comprehensive (42230)Indication: Diabetes mellitus type II, controlled, with no complications (Renamed from Controlled type 2 diabetes mellitus without complication) On: 4-Oqy-853417:23 Request CBC WITH MANUAL DIFF (94814)Indication: Anemia On: 93-Qca-387156:39 Request Comments: recheck in February Ferritin (96673)Indication: Anemia On: 53-Uwj-028930:38 Request Comments: re check in February Stool Guiac Test, Office (Medicare) (G0107)Indication: Iron deficiency anemia due to chronic blood loss On: 27-Jun-20179:36 Request Sed Rate Erythrocyte (27965)Indication: Abdominal pain, acute, right upper quadrant (Renamed from Acute abdominal pain in right upper quadrant) On: 5-Rxx-125805:20 Request CBC, Platelets & Auto Diff (72183)Indication: Abdominal pain, acute, right upper quadrant (Renamed from Acute abdominal pain in right upper quadrant) On: :20 Request Metabolic Panel, Comprehensive (15637)Indication: Abdominal pain, acute, right upper quadrant (Renamed from Acute abdominal pain in right upper quadrant) On: :19 Request COMPLEMENT FUNC ACT-EA COMP (16848)Indication: Hives On: :47 Request Comments: C1 esterase inhibitor functional Iron (51274)Indication: Iron deficiency anemia due to chronic blood loss On: :42 Request ANCA-P (ANTI NEUTROPHIL CYTOPLASMIC ANTIBODY)Indication: Hives On: :34 Request Anti-TPO Antibody (85437)Indication: Hives On: :34 Request Platelet 70814 (citrate, nonclumping tube)Indication: Tongue abnormality On: 60-Vlz-760537:26 Request LIPOPROTEIN, BLD, BY NMR (30541)Indication: Mild hypertension On: 15-Bbg-344664:32 Request METABOLIC PANEL, COMPREHENSIVE (28098)Indication: Mild hypertension On: 14-Vts-513139:32 Request CALCIFIDIOL (33486) VIT D 25Indication: Vitamin D insufficiency On: 35-Cew-296229:31 Request MICROALBUMIN: CREATININE RATIO (72875) AND (10666)Indication: Mild hypertension On: 52-Yjr-035283:53 Request LIPOPROTEIN, BLD, BY NMR (21004)Indication: Mild hypertension On: 32-Hsx-502906:53 Request Ferritin (07878)Indication: Iron deficiency anemia due to chronic blood loss On: 99-Akz-849577:11 Request CBC (Auto) (65963)Indication: Iron deficiency anemia due to chronic blood loss On: 08-Vtu-749486:10 Request Iron (68275)Indication: Iron deficiency anemia due to chronic blood loss On: 4-Dru-702139:46 Request Comments: recheck in 4 weeks RETICULOCYTE COUNT (33820)Indication: Iron deficiency anemia due to chronic blood loss On: 5-Ndj-060661:51 Request Iron Binding Capacity (TIBC) (36196)Indication: Iron deficiency anemia due to chronic blood loss On: 0-Zpp-820885:51 Request Iron (44920)Indication: Iron deficiency anemia due to chronic blood loss On: 7-Aym-721161:51 Request Methymalonic Acid, Serum (05714)Indication: Iron deficiency anemia due to chronic blood loss On: :50 Request Vitamin B-12 (cyanocobalamin) (13583)Indication: Iron deficiency anemia due to chronic blood loss On: :50 Request Folic Acid Serum (75924)Indication: Iron deficiency anemia due to chronic blood loss On: :50 Request Ferritin (73126)Indication: Iron deficiency anemia due to chronic blood loss On: :50 Request CBC (Auto) (79952)Indication: Iron deficiency anemia due to chronic blood loss On: :50 Request POTASSIUM SERUM (06362)Indication: Hypokalemia On: :48 Request C-Reactive Protein (40742)Indication: Chronic nonintractable headache, unspecified headache type On: :46 Request Sed Rate Erythrocyte (72457)Indication: Chronic nonintractable headache, unspecified headache type On: :46 Request Renal function Panel (95997)Indication: Mild hypertension On: 08-Pao-747891:46 Request Stool Guiac Test, Office (Medicare) (G0107)Indication: Iron deficiency anemia due to chronic blood loss On: 60-Ekq-115111:52 Request Iron (47190)Indication: Iron deficiency anemia due to chronic blood loss On: 47-Rnd-494843:51 Request Iron (07382)Indication: Iron deficiency anemia due to chronic blood loss On: 61-Awp-123763:14 Request Ferritin (04208)Indication: Iron deficiency anemia due to chronic blood loss On: 90-Myx-903821:14 Request CBC & PLATELETS (AUTO) (76724)Indication: PMB (postmenopausal bleeding) On: :12 Request PTT (ACTIVATED PARTIAL THROMBOPLASTIN TIME) (64736)Indication: PMB (postmenopausal bleeding) On: :12 Request PT/INR, Office (58685)Indication: PMB (postmenopausal bleeding) On: 67-Nmf-156936:12 Request PROLACTIN (06320)Indication: PMB (postmenopausal bleeding) On: 85-Jtp-056846:12 Request TSH (THYROID STIMULATING HORMONE) (29955)Indication: PMB (postmenopausal bleeding) On: 47-Dwo-376209:12 Request RETICULOCYTE COUNT (09826)Indication: Iron deficiency anemia due to chronic blood loss On: 42-Hcg-099993:38 Request Ferritin (17784)Indication: Iron deficiency anemia due to chronic blood loss On: 84-Nnm-541157:35 Request URINALYSIS, W/ MICRO (90637)Indication: Mild hypertension On: 70-Oyc-039651:33 Request METABOLIC PANEL, COMPREHENSIVE (64312)Indication: Mild hypertension On: :33 Request LIPID PANEL (39257)Indication: Mild hypertension On: :33 Request CBC with auto diff (77890)Indication: Mild hypertension On: :33 Request Ferritin (97287)Indication: Iron deficiency anemia due to chronic blood loss On: 56-Bif-388986:19 Request Comments: recheck in 6 weeks Iron Binding Capacity (TIBC) (36950)Indication: Iron deficiency anemia due to chronic blood loss On: 66-Tze-146678:19 Request Comments: recheck in 6 weeks Iron (56224)Indication: Iron deficiency anemia due to chronic blood loss On: 18-Elt-719249:19 Request Comments: recheck in 6 weeks METABOLIC PANEL, COMPREHENSIVE (04680)Indication: Mild hypertension On: 99-Jwz-416473:29 Request CBC (Auto) (39864)Indication: Iron deficiency anemia due to chronic blood loss On: 63-Vif-647007:27 Request Ferritin (59914)Indication: Iron deficiency anemia due to chronic blood loss On: 35-Jkg-237663:27 Request Metabolic Panel, Comprehensive (83351)Indication: Iron deficiency anemia due to chronic blood loss On: 5-Tzw-597448:46 Request CBC with manual diff (06295)Indication: Iron deficiency anemia due to chronic blood loss On: 2-Kjw-786737:46 Request Ferritin (87544)Indication: Iron deficiency anemia due to chronic blood loss On: 1-Byz-808047:46 Request CBC (Auto) (04499)Indication: Iron deficiency anemia due to chronic blood loss On: 68-Sed-826284:16 Request Ferritin (21799)Indication: Iron deficiency anemia due to chronic blood loss On: 6-Sds-115629:36 Request Comments: 4 weeks CBC (Auto) (02070)Indication: Iron deficiency anemia due to chronic blood loss On: 3-Ima-792809:36 Request Comments: 4 weeks Helicobacter pylori Ag, EIA (52594)Indication: Iron deficiency anemia due to chronic blood loss On: 0-Auu-564557:31 Request Comments: do [place] RETICULOCYTE COUNT (19423)Indication: Abnormal blood chemistry On: :26 Request IRON (13074)Indication: Abnormal blood chemistry On: :26 Request FERRITIN (30078)Indication: Abnormal blood chemistry On: :26 Request LDH (LD) (LACTATE DEHYDROGENASE) (95229)Indication: Abnormal blood chemistry On: :25 Request OCCULT BLOOD FECES SCREEN - card done in office (17588)Indication: Abnormal blood chemistry On: :25 Request FECAL OCCULT- Tubes sent home (94263)Indication: Abnormal blood chemistry On: :25 Request METABOLIC PANEL, COMPREHENSIVE (45440)Indication: Mild hypertension On: 65-Xpb-827727:40 Request LIPID PANEL (44868)Indication: Mild hypertension On: 75-Msh-372389:40 Request CBC WITH MANUAL DIFF (63154)Indication: Mild hypertension On: 88-Nme-820158:40 Request Comments: in three months (approximately) CBC (Auto) (14859)Indication: Mild hypertension On: 28-Usm-732567:02 Request Metabolic Panel, Comprehensive (31804)Indication: Mild hypertension On: 16-Pci-773889:02 Request Lipid Panel (38005)Indication: Mild hypertension On: 30-Rvg-880970:02 Request Comments: in three months (approximately) HEPATIC FUNCTION PANEL (89660)Indication: Hypercholesterolemia On: :58 Request Comments: in three months (approximately) Lipid Panel (89528)Indication: Hypercholesterolemia On: 0-Ocx-136691:58 Request CBC (Auto) (36346)Indication: Mild hypertension On: 78-Joc-092177:18 Request Metabolic Panel, Comprehensive (35418)Indication: Mild hypertension On: 85-Pif-343089:18 Request Lipid Panel (16220)Indication: Mild hypertension On: 19-Igf-746674:18 Request Comments: in three months (approximately) CBC WITH MANUAL DIFF (51291)Indication: Hypercholesterolemia On: 38-Efq-179515:50 Request METABOLIC PANEL, COMPREHENSIVE (32328)Indication: Hypercholesterolemia On: 31-Fyl-866189:50 Request LIPID PANEL (53763)Indication: Hypercholesterolemia On: 64-Fck-763452:50 Request Metabolic Panel, Comprehensive (79025)Indication: Hypercholesterolemia On: 22-Xyi-582471:48 Request Lipid Panel (17604)Indication: Hypercholesterolemia On: 08-Bfz-277496:48 Request Comments: in three months HEPATIC FUNCTION PANEL (45114)Indication: Hypercholesterolemia On: :07 Request LIPID PANEL (22759)Indication: Hypercholesterolemia On: :07 Request Comments: in six months URINALYSIS W/O MICRO (34456)Indication: Mild hypertension On: 34-Zkd-070547:04 Request CBC WITH MANUAL DIFF (27149)Indication: Mild hypertension On: 83-Uoh-733234:04 Request LIPID PANEL (39434)Indication: Mild hypertension On: 05-Rhm-455878:04 Request METABOLIC PANEL, COMPREHENSIVE (22864)Indication: Mild hypertension On: 53-Lam-376527:04 Request Planned Encounters Medical; [facility] (Doctor) - On: 03-Apr-2018 13:30 [facility] Gemini DELGADILLO, Marilu Berman MD Planned Procedures CT - Abdomen & Pelvis (Without On: 27-Jun-2017 Intent Contrast)By: Marilu Uribe MD Comments: rule out appenditis rule out tumor with iron def. anemia Marilu Uribe MD INFUSION, NORMAL SALINE SOLUTION , On: 24-Jun-2017 Intent 1000 CC (Special Coverage Comments: IV Therapy [id number], 1 inchSite: L ac Tolerated: wellno redness or swelling, no s/s infiltrationmlong, surveillance sensor officer Instructions Apply. See MCM: 2049) (J7030)By: Gemini DELGADILLO, Marilu Berman MD CT - LDCT CHEST ( WITHOUT CONTRAST On: 01-Jul-2016 Intent )By: Gemini DELGADILLO, Marilu Uribe MD, Comments: LDCT pt has over 30 pack year history, current smoker, no had one in the last year, would have curative surgery if need, no current signs or suymptoms Marilu Harris DEXA SCAN AXIAL SKELETON (79209)By: On: 19-Feb-2016 Intent Marilu Uribe MD, MD, Dana M CT - Chest (Without Contrast)By: On: 05-Nov-2015 Intent Marilu Uribe MD, MD, Dana Comments: LDCT for smoking history no contrast. M Ultrasound - PelvisBy: Gemini DELGADILLO, On: 12-Nov-2014 Intent Marilu Berman MD Comments: can do transvaginal probe Eprescribed prescriptions On: 13-Aug-2013 Intent (G8553)By: Marilu Uribe MD, MD, Dana M Eprescribed prescriptions On: 13-Aug-2013 Intent (G8553)By: Marilu Uribe MD, MD, Dana M Eprescribed prescriptions On: 08-May-2013 Intent (G8553)By: Thelma Sánchez LPN Holter Monitor 24 hrsBy: Gemini On: 22-Jan-2013 Intent Marilu DELGADILLO MD, Dana M EKG (58080)By: Marilu Uribe MD On: 22-Jan-2013 Intent Marilu Uribe MD Comments: see scanned document of test done to see results reviewed today with patient EKG (02025)By: Nithya Nieto On: 29-Jun-2012 Intent DYLAN Eprescribed prescriptions On: 21-Mar-2012 Intent (G8553)By: Marilu Uribe MD, MD, Dana M Radiology - ChestBy: Gemini DELGADILLO, On: 26-Nov-2011 Intent Marilu Berman MD Radiology - Lumbar SpineBy: Gemini On: 06-Jan-2007 Marilu Escobedo MD, MD, Dana M Planned Medications INFUSION, NORMAL [...] Other chest pain Encounters Lab Order On: 03-Mar-2018 15:20 Encounter Diagnosis: Diabetes mellitus type II, controlled, with no complications (Renamed from Controlled type 2 diabetes mellitus without complication) End: 03-Mar-2018 15:24 [facility] Lab Order On: 17-Nov-2017 10:36 Encounter Diagnosis: [...] like symptoms: f/u f End: 27-Jun-2017 9:43 rom fabiola. pt states she feels about the sameEncounter [...] patient wood s have durable power of attorney law clerk and living will. Other providers contributing to the patient's care are application operations engineer. Note for Annual Medicare Exam: see all [...] in past 6 months, but the pat barry has not had fecal incontinence, had urinary [...] (bilateral masectomy ) and colonoscopy (2005). The naten t does have durable power of attorney law clerk and living will. The patient has noticed getting bored and lack of energy (intermittent ). Other providers contributing to the patient's care are application operations engineer (Dr. Carroll ), gastrologist (Dr. Smith ) [...] patient does not have durable power of attorney law clerk or living saulo l. The patient has noticed nothing from the geriatic depression scale. Other providers contributing to the patient's care are application operations engineer (Dr. Carroll)., [ADDITIONAL REASON] Follow up for [...] Nutrition: balanced diet and supplemental vitamins. The ar dical issues the patient is following up [...] The patient does have durable power of attorney law clerk (patient need s to have updated since her husbands ) and living will. The patient has noticed nothing from the geriatic depression scale. Other providers contributing to the patient's care are application operations engineer (Dr. Sav Carroll ), gastrologist (Dr. Smith [...] 401.1 (Renamed from Hypertension (401.0)), Hypercholesterolemia (272.0), [facility] Office Visit On: 10-Sep-2008 [...] Breast Cancer (174.9), Coronary Artery Disease (414.00), [facility] Historical Summary On: 25-Jun-2008 16:31 [...] or perforation, without mention of obstruction (532.90), [facility] Office Visit On: 26-Feb-2008 [...] Carotid stenosis (433.10), Coronary Artery Disease (414.00), [facility] Office Visit On: 21-Nov-2007 [...] [facility] End: 20-Jan-2006 12:07 Payers [employer]/MedicareSAMMY SWANN; tamar guarantor
--- OUTSIDE RECORDS SUMMARY | 2018-07-13 22:38 | XMS RPT_ITS | Continuity of Care Document ---
:1940 Author Organization [facility] Address [facility] [address] [place] [address] Phone Care Team Providers Name Role Phone Gemini DELGADILLO, Marilu Harris Unavailable Hearing Services-- Aldo Estrada Unavailable Phyllis Mcghee Unavailable Jean Pierre DELGADILLO, Hector Robins Unavailable [place] DELGADILLO, Brian Martínez Unavailable Luis DELGADILLO, Omega Lucero Unavailable Jae Glez MD Unavailable Dr. Dav Montero Unavailable Gemini DELGADILLO, Marilu Harris Unavailable Toro Meek MD Unavailable TANNER Menendez Unavailable Unavailable Unavailable Unavailable Problems Name Dates Details Anemia (D64.9, 285.9) Status: Active Annual Medicare Physical (Z00.01, V70.0) Comments: 03-07-17 Medicare exam:04-03-18 [facility] reviewed with patient all questions. bilateral mastectomy. scope 2005 Dr. Smith states will not do anymore with age and comorbidities talk about again a nd told if would consider than do cologuard her mother had polyp refuse immunizations, BD 11-16, hx. bilateral masectomy does not do mammogram, last eye exam was with Dr. 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 Status: Active BMI 29.0-29.9,adult (Z68.29, V85.25) Status: Active Carotid stenosis (I65.29, 433.10) Comments: Dr. Carroll orders, left 70% consider surgery soon. she refuse the CEA past. was in hospital for vertigo. not think stroke seeing Dr. casie huffman vasc sx in past. seen in hospital and told [...] 414.00) Comments: stable had CAB. see Dr. Carroll reviewed with patient specialist's note from [facility]. Status: Active Coronary atherosclerosis of [...] (K21.9, 530.81) Comments: hx of duod ulcer. luis has her on PPI now with new [...] Status: Active Malabsorption (K90.9, 579.9) Status: Active Menopausal state (N95.1, 627.2) Status: Active Mild hypertension (I10, 401.9) Comments: off Losartan with lip swelling. change Dyazide to loop. Status: Active Paroxysmal a-fib (I48.0, 427.31) Comments: saw EMILY Petersen 02-05 and stable. Status: Active Personal history of breast cancer (Z85.3, V10.3) Comments: stable bilateral mastectomy Status: Active Personal history of TIA (transient ischemic attack) (Z86.73, V12.54) Comments: still gets small visiual ones told need to see about surgery at [facility] adn she will talkt to Dr. carroll talk to Dr. carroll and he willsee in in office and will go to plavix with one aspirin. will get US through him. know if worsen then usual TIA signs and symptoms then ER Status: Active Postnasal drip (R09.82, 784.91) Comments: makes cough at times told to use netti pot to rinse. Status: Active Pregnancies () [...] on us 10-16 will get reoprt form [facility] neuro. Status: Active Tinnitus, left (H93.12, 388.30) [...] MD, Dana M Start : 21-Aug-2015 Active Cilostazol 50 MG Oral Tablet 1 (one) Tablet bid for 0 days Quantity: 180 {Tablet} Refills: 3 Ordered:03-Apr-2018 Marilu Uribe MD, MD, Dana M Start : 03-Apr-2018 Active Clopidogrel Bisulfate 75 MG Oral Tablet 1 Tablet daily for 0 days Quantity: 90 {Tablet} Refills: 3 Ordered:03-Apr-2018 Marilu Uribe MD, MD, Dana M Start : 03-Apr-2018 Active Lasix 20 MG Oral Tablet 1/2 Tablet Tablet in am for 0 days Quantity: 30 {Tablet} Refills: 3 Ordered:28-Jul-2017 Gen Jacobo Start : 28-Jul-2017 Active Lopressor 50 MG Oral Tablet 1 1/2 Tablet BID for 0 days Quantity: 270 {Tablet} Refills: 3 Ordered:03-Apr-2018 Marilu Uribe MD, MD, Dana M Start : 03-Apr-2018 Active Niacin Flush Free 500 MG Oral [...] MD, Dana M Start : 24-Jun-2017 Active Protonix 40 MG Oral Tablet Delayed Release 1 (one) Tablet DR qd for 0 days Quantity: 90 {Tablet} Refills: 3 Ordered:03-Apr-2018 Marilu Uribe MD, MD, Dana M Start : 03-Apr-2018 Active Zetia 10 MG Oral Tablet 1 Tablet QD for 0 days Quantity: 90 {Tablet} Refills: 3 Ordered:03-Apr-2018 Marilu Uribe MD, MD, Dana M Start : 03-Apr-2018 Active ACETAMINOPHEN EXTRA STRENGTH, 500MG (Oral Tablet) 1 (one) Tablet qd for 30 days Refills: 0 Ordered:23-Oct-2013 Thelma Sánchez LPN Start : 21-Sep-2013 End : 23-Oct-2013 Inactive AUGMENTIN, 875-125MG (Oral Tablet) 1 (one) Tablet bid for 0 days Quantity: 20 {Tablet} Refills: 0 Ordered:21-Aug-2015 TANNER Menendez Start : 28-Jul-2015 End : 21-Aug-2015 Inactive Comments:ignore bother patient stomach Basic's Multi Vitamin 1 qd Inactive Comments:with iron Gluten Free (18 mg ferrous sulfate) Calcium Inactive CARAFATE, 1GM (Oral Tablet) 1 [...] weeks for 21 days Refills: 0 Ordered:23-Oct-2013 Thelma Sánchez LPN Start : 21-Sep-2013 End : 23-Oct-2013 Inactive CYCLOBENZAPRINE HCL, 10MG (Oral Tablet) 1 Tablet Tablet tid prn for 0 days Quantity: 30 {Tablet} Refills: 2 Ordered:21-Sep-2013 Nithya Nieto LPN Start : 02-Feb-2013 End : 21-Sep-2013 Inactive Comments:thirty DOCUSATE SODIUM, 100MG (Oral Capsule) 1 (one) Capsule bid for 30 days Refills: 0 Ordered:23-Oct-2013 Thelma Sánchez LPN Start : 21-Sep-2013 End : 23-Oct-2013 Inactive DOVONEX, 0.005% (External Cream) uad Cream Cream to affected area(s) prn for 0 days Quantity: 1 {Cream} Refills: 1 Ordered:16-May-2015 TANNER Menendez Start : 02-Feb-2013 End : 16-May-2015 Inactive ESCITALOPRAM OXALATE, 5MG (Oral Tablet) 1 Tablet daily for 0 days Quantity: 30 {Tablet} Refills: 1 Ordered:23-Oct-2013 Thelma Sánchez LPN Start : 24-Jul-2012 End : 23-Oct-2013 Inactive FLUoxetine HCl 10 MG Oral Capsule 1 (one) Capsule Capsule in am for 0 days Quantity: 30 {Capsule} Refills: 0 Ordered:01-Jul-2016 Gemini DELGADILLO, Marilu Bartlett MD, Mairlu Harris Start : 01-Jul-2016 End : 01-Jul-2016 [...] : 18-Dec-2013 End : 19-Mar-2014 Inactive Nystatin 486715 UNIT/GM External Cream 1 (one) Cream Cream apply bid to skin rash for 0 days Quantity: 1 {Tube} Refills: 0 Ordered:07-Mar-2017 TANNER Menendez Start : 07-Oct-2016 End : 07-Mar-2017 Inactive PANTOPRAZOLE SODIUM, 40MG (Oral Tablet Delayed Release) [address] qd for 0 days Quantity: 30 {Tablet_DR} Refills: 6 Ordered:23-Oct-2013 Thelma Sánchez LPN Start : 02-Feb-2013 End : 23-Oct-2013 Inactive Peridex 0.12 % Mouth/Throat Solution 1 (one) Solution Solution 15 cc swich and spit bid for 0 days Quantity: 240 {Milliliter} Refills: 0 Ordered:03-Apr-2018 TANNER Menendez Start : 16-May-2017 End : 03-Apr-2018 Inactive POTASSIUM CHLORIDE ER, 10MEQ (Oral Capsule [...] prn for 30 days Refills: 0 Ordered:23-Oct-2013 Long SHEET METAL ROOFER, Thelma L Start : 21-Sep-2013 End : 23-Oct-2013 Inactive TYLENOL, 325MG (Oral Tablet) 2 (two) Tablet q6h prn for 0 days Quantity: 30 {Tablet} Refills: 0 Ordered:30-Jun-2015 TANNER Menendez Start : 23-Oct-2013 End : 30-Jun-2015 Inactive VALIUM, 5MG (Oral Tablet) Tablet BID/PRN for 0 days Quantity: 30 {Tablet} Refills: 1 Ordered:15-Jan-2011 TANNER Menendez Start : 25-Jun-2008 End : 15-Jan-2011 Inactive Vitamin D3 Super Strength 2000 UNIT Oral Capsule 1 (one) Capsule Capsule in am for 0 days Quantity: 30 {Capsule} Refills: 0 Ordered:03-Apr-2018 TANNER Menendez Start : 07-Mar-2017 End : 03-Apr-2018 Inactive WELCHOL, 625MG (Oral Tablet) 3 (three) [...] days Quantity: 90 {Capsule} Refills: 3 Ordered:15-Nov-2017 Marilu Uribe MD, MD, Marilu Harris Start : 15-Nov-2017 End : 15-Nov-2017 Discontinued [...] Active Past Medical History Name Dates Details Abdominal pain, acute, right lower quadrant (Renamed from Acute abdominal pain in right lower quadrant) (R10.31, 789.03) Comments: pt still having alot she now thinks that had chronic RLL pain into back for 3months. worsen after venofer. she though hip now think in abd. Status: Resolved as of 03-Apr-2018 Abdominal pain, acute, right upper quadrant (Renamed from Acute abdominal pain in right upper quadrant) (R10.11, 789.01) Status: Resolved as of 03-Apr-2018 Abnormal blood chemistry (R79.9, 790.6) Comments: uric [...] as of 04-Jul-2014 BMI 28.0-28.9,adult (Z68.28, V85.24) Status: Resolved as of 15-Jun-2017 BMI 28.0-28.9,adult (Z68.28, V85.24) Comments: pt gaining since stop smoking. Status: Inactive as of 07-Oct-2014 BMI 30.0-30.9,adult (Z68.30, V85.30) Comments: 30.61 Status: [...] low sugar. alot situational things cause. allyn rnow and saulo send ekg over to Dr. carroll. Status: Inactive as of 02-Feb-2013 PMB (postmenopausal bleeding) (N95.0, 627.1) Comments: workup see Dr. bell [facility]. wanted to do endometrial biopsy and plan [...] . allie seen. saw Dr. hinds at [facility] noting suggest for this ringing in ear. [...] signs and symptoms now seen up at [facility] main and had MRI , US vertebrals [...] bilateral 1998 Completed Tubal ligation Completed Comments: 1969's also had adhesions 1972 Triple Bypass Completed Date Value Details 27-Jun-2017 Pulmonary Visit Report Result: Comments: See Note; NOTES: [facility] [address] [place] [address] OFFICE VISIT Date of Service: 06/22/17 MR#: [id number] Acct: [id number] Name: SAMMY MARTE Rep #: [id number] : 1940 Provider: Marci Zabala Age/Sex: 76/F Location: [facility].PMW Status: Signed Assessment AND Plan 1. SOB [...] chest congestion. She has not tried any vnwj-wwy-dedbjnj medications for these symptoms. She notices that [...] and does not need a sleep study. Sh keren reports that she sleeps well at night, [...] . She has an appointment with an graphotype operator next week. 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) Surgical History History of mastectomy (Resolved) [...] colds, seasona l allergies, other or orthopnea EE Ear Nose Throat Mouth: Positive hearing normal, [...] Codes Time Spent - 3-10 minutes: Yes (88540) 06/27/17 1553 <Electronically signed by aMrci ANAYA> Date __ Marci ANAYA Cosigner Signature: Date (if applicable) CC: 27-Jun-2017 Abdomen/Pelvis without Cont Result: Comments: See Note; NOTES: [facility] Imaging Services [address] [place] [address] Abdomen/Pelvis without Cont MR#: [id number] Acct: [id number] Name: SAMMY SWANN Rep #: [id number] : 1940 F 76 From: Manolo Sierra MD PCP: Marilu Uribe MD Status: REG CLI Study: Abdomen/Pelvis without Cont Date of Exam: 06/27/17 Exam# [id number] Ordering Dr: Marilu Uribe MD STUDY: CT [...] Manolo Sierra MD at 11:15 EST Tel [phone], Service support , CC: Marilu Uribe MD Anode Worker: Signed 22-Jun-2017 Chest 1 View (Portable) Result: Comments: See Note; NOTES: [facility] Imaging Services [address] [place] [address] Chest 1 View (Portable) MR#: [id number] Acct: [id number] Name: SAMMY SWANN Rep #: [id number] : 1940 F 76 From: Brian Shen PCP: Marilu Uribe MD Status: REG ER Study: Chest 1 View (Portable) Date of Exam: 06/22/17 Exam# [id number] Ordering Dr: Rodrigo Finley MD STUDY: X-RAY [...] CC: Marilu Uribe MD; Rodrigo Finley MD Anode Worker: Signed 15-Jun-2017 Emergency Department Summary Result: Comments: See Note; NOTES: [facility] Medical Records Department [address] [place] [address] Emergency Department Summary 06/15/17 0016 MR#: [id number] Acct: [id number] Name: SAMMY SWANN Rep #: [id number] : 1940 76 From: Maury Carmen PCP: [...] is held. She is referred to an graphotype operator pending appo intment. No new foods. No [...] pressure This note was generat ed with [employer] dictation software. It may contain incorrect words, [...] Take steroids as prescribed. Follow-up with her graphotype operator's for evaluation as referred by your PCP. What to do if you have Problems For any increased pain, shortness of breath, bleeding, nausea o r vomiting, chest pain, or any unexpected problems, contact your Primary Care Provider. Call [facility] ([phone]) or report to the closest Emergency Room. Call 911 if necessary. 06/15/17 00 21 <Electronically signed by Maury Carmen> Date Maury Carmen Cosigner Signature (If Indicated): Date CC: Marilu Uribe MD 05-Feb-2017 Emergency Department Summary Result: Comments: See Note; NOTES: [facility] Medical Records Department [address] [place] [address] Emergency Department Summary 02/05/17 191 MR#: [id number] Acct: [id number] Name: SAMMY SWANN Rep #: [id number] : 1940 76 From: Anna Rincon MD [...] and she was worried about taking any tmkc-jwd-ctiwehm medications at home for allergies. Physical Examination: [...] Allergic reaction This note was generated with [employer] dictation software. It may contain incorrect words, spelling, and punctuation that were not noted in review of the chart prior to [facility] ED Disposition - Plan for ED Patient: Chief Complaint: Allergic Reaction Referrals: Marilu Uribe MD [Primary Care Provider] - What to do if you have Problems For any increased pain, shortness of breath, bleeding, nausea or vomiting, chest pain, or any unexpected problems, contact your Primary Care Provider. Call [facility] ([phone]) or report to the closest Emergency Room. Call [phone] if necessary. 02/05/17 2344 <Electronically signed by Anna Rincon MD> Date Anna Rincon MD Cosigner Signature (If Indicated ): Date CC: Marilu Uribe MD 05-Feb-2017 Discharge Instruction Result: Comments: See Note; NOTES: [facility] Medical Records Department [facility] [place] [address] Discharge Instruction 02/05/17 2236 MR#: [id number] Acct: [id number] Name: Boris SWANN Rep #: [id number] : 1940 76 From: Anna Rincon MD [...] your Primary Care Provider. Call [facility] ([phone]) or report to the closest Emergency Room. Call 911 i f necessary. 02/05/17 2236 <Electronically signed by Anna Rincon MD> Date Anna Rincon MD Cosigner Signature (If Indicated): D ate CC: Marilu Uribe MD 07-Jul-[address] Lung Screening Result: Comments: See Note; NOTES: [facility] Imaging Services [address] [place] [address] Lung Screening MR#: [id number] Acct: [id number] Name: LUCIE SWANN Rep #: [id number] : 1940 F 75 From: Manolo Sierra MD PCP: Marilu Uribe MD Status: REG CLI Study: Low Dose CT Lung Screening Date of Exam: 07/07/16 Exam# [id number] Ordering Dr: Charlotte Uribe MD STUDY: CT [...] Manolo Sierra MD at 9:52 EDT Tel [phone], Service support [phone], CC: Marilu Uribe MD Anode Worker: Signed 24-Feb-2016 Dexa Bone Density Study (HP) Result: Comments: See Note; NOTES: [facility] Imaging Services [address] [place] [address] Verdana 4d Dexa Bone Density Study (HP) MR#: [id number] Acct: [id number] Name: ANGELES SWANN Rep #: [id number] : 1940 F 75 From: Manolo Sierra MD PCP: Marilu Uribe MD Status: REG CLI Study: Dexa Bone Density Study (HP) Date of Exam: 02/24/16 Exam# [id number] Ordering Dr: Marilu Abreu MD STUDY: DUAL [...] Manolo Sierra MD at 12:31 EDT Tel [phone], Service support [phone], CC: Marilu Uribe MD Anode Worker: Signed 27-Jan-2016 12 Lead Electrocardiogram Result: Comments: See Note; NOTES: [facility] Cardiovascular Services [address] [place] [address] 12 Lead EKG 01/24/161955 MR#: [id number] Acct: [id number] Name: SAMMY SWANN Rebecca del real #: [id number] : 1940 75 From: Rigoberto Tadeo MD [...] age u ndetermined Abnormal ECG Confirmed by RIGOBERTO TADEO MD ([id number]), film editor supervisor FABIEN COVARRUBIAS ([id number]) on 01/27/2016 3:55:07 PM Referred By: KALLI Confirmed By:RIGOBERTO TADEO MD 01/27/16 1555 Date Rigoberto Tadeo MD CC: Marilu Uribe MD Date Dictated: 01/24/161955 Date Transcribed: 01/24/161955 Anode Worker: Signed 2-Oct-2016 Emergency Department Summary Result: Comments: See Note; NOTES: [facility] Medical Records Department [address] [place] [address] Emergency Department Summary MR#: [id number] Acct: [id number] Name: SAADIA SWANN Rep #: [id number] : 1940 75 From: Selene Sullivan MD [...] ad a bovine valve replacement at the [facility] back in July. PHYSICAL EXAMINATION: VITAL SIGNS: [...] recommended transfer and the patient requested the [facility] where she has been a patient in the past. I am cu rrently awaiting their call and presuming I am able to get a receiving physician. She will be transferred there in stable condition. DIAGNOSES: 1. Critical carotid stenosis with symptoms. 2. Hypertensi on. 3. Hypokalemia. 4. Anemia. MD Julienne Wilkerson C: Marilu Uribe MD T: NTS JOB: [id number] 01/25/16 1520 <Electronically signed by Selene Sullivan MD> Date Selene Sullivan MD Cosigner Signature (If Indicated): Date CC: Marilu Uribe MD Date Dictated: 01/25/1624 Date Transcribed: 01/25/1624 Anode Worker: Signed 24-Jan-2016 CTA Head W/WO Contrast Result: Comments: See Note; NOTES: [facility] Imaging Services [address] [place] [address] Verdana 4d CTA Head W/WO Contrast MR#: [id number] Acct: [id number] Name: SAMMY SWANN ep #: [id number] : 1940 F 75 From: Catherine Lomas DO PCP: Marilu Uribe MD Status: REG ER Study: CTA Head W/WO Contrast Date of Exam: 01/24/16 Exam# [id number] Ordering Dr: Selene Sullivan MD STUD Y: [...] There is no demonstrated aneurysm of the lower elwha of Bender. There is no demo nstrated abnormality of the visualized brain. CT/CTA Head W/WO Contrast IMPRESSION: Incomplete lower elwha of [place], a normal anatomic variation. No nstenotic calcification of the cavernous portions of the internal carotid arteries. Otherwise normal intracranial CTA. Electronically Signed: Catherine Lomas DO at 22:59 EDT Tel [phone], Service support [phone], CC: Selene Sullivan MD; Marilu Uribe MD Anode Worker: Signed 24-Jan-2016 CTA Head W/WO Contrast Result: Comments: See Note; NOTES: [facility] Imaging Services [address] [place] [address] Verdana 4d CTA Head W/WO Contrast MR#: [id number] Acct: [id number] Name: SAMMY SWANN ep #: [id number] : 1940 F 75 From: Catherine Lomas DO PCP: Marilu Uribe MD Status: DEP ER Study: CTA Head W/WO Contrast Date of Exam: 01/24/16 Exam# [id number] Ordering Dr: Selene Sullivan MD ADDE NDUM by Catherine Lomas DO on 02/24/[address]/CTA Head W/WO Contrast 02/24/16 1809 Date cc: Selene Sullivan MD; Marilu Uribe MD * Signed ADDENDUM by Catherine Garcia on 02/24/16 at 1802 ADDENDUM ADDENDUM: Request [...] at 18:02 EDT Tel , Service support [phone], 02/24/161801 Date cc: Selene Sullivan MD; Marilu Uribe [...] There is no demonstrated aneurysm of the lower elwha of [place]. There is no demonstrated abnormality of the visualized brain. ORDER #: CT/CTA Head W/WO Contrast IMPRESSION: Incomplete lower elwha of [place], a normal anatomic variation. Nonstenotic calcification of the cavernous portions of the internal carotid arteries. Otherwise no rmal intracranial CTA. Electronically Signed: Catherine Lomas DO at 22:59 EDT Tel , Service support [phone], CC: Selene Sullivan MD; Marilu Uribe MD Anode Worker: Signed 24-Jan-2016 CTA Neck W/WO Contrast Result: Comments: See Note; NOTES: [facility] Imaging Services [address] [place] [address] Verdana 4d CTA Neck W/WO Contrast MR#: [id number] Acct: [id number] Name: SAMMY SWANN ep #: [id number] : 1940 F 75 From: Catherine Lomas DO PCP: Marilu Uribe MD Status: DEP ER Study: CTA Neck W/WO Contrast Date of Exam: 01/24/16 Exam# [id number] Ordering Dr: Selene Sullivan MD ADDE NDUM [...] be excluded. Electronically Signed: Catherine Lomas DO tamar t 17:44 EDT Tel , Service support [phone], 02/24/16 6331 Date cc: Selene Sullivan MD; Marilu Uribe [...] at 23:09 EDT Tel , Service support [phone], N.B. : The above information has been verbally conveyed by Catherine Lomas DO to Selene Sullivan MD, Referring Physician, on 01/24/2016 23:15:16 (ET). CC: Selene Sullivan MD; Marilu Uribe MD Anode Worker: Signed 24-Jan-2016 CTA Neck W/WO Contrast Result: Comments: See Note; NOTES: [facility] Imaging Services [address] [place] [address] Verdana 4d CTA Neck W/WO Contrast MR#: [id number] Acct: [id number] Name: SAMMY SWANN #: [id number] : 1940 F 75 From: Catherine Lomas DO PCP: Marilu Uribe MD Status: REG ER Study: CTA Neck W/WO Contrast Date of Exam: 01/24/16 Exam# [id number] Ordering Dr: Selene Sullivan MD Y: CTA NECK WITH CONTRAST REASON FOR [...] of the left internal carotid artery. Normal hsantel gin of the left external carotid artery [...] at 23:09 EDT Tel , Service support [phone], N.B. : The above information has been verbally conveyed by Catherine Lomas DO to Selene Sullivan MD, Referring Physicia n, on 01/24/2016 23:15:16 (ET). CC: Selene Sullivan MD; Marilu Uribe MD Anode Worker: Signed 15-Nov-2014 Transvaginal Non- Result: Comments: See Note; NOTES: [facility] Imaging Services [address] [place] [address] Ultrasound Report MR#: [id number] Acct: [id number] Name: SAMMY SWANN Rep #: [id number] : 1940 F 74 From: Isidro Walden DO PCP: Marilu Uribe MD Status: REG CLI Study: Transvaginal Non- Date of Exam: 11/15/14 Exam# [id number] Ordering Dr: Marilu Uribe MD STUDY: ULTRASOUND [...] Isidro Walden DO at 13:25 EDT Tel [phone], Service support , CC: Marilu Uribe MD Anode Worker: Signed 15-Nov-2014 Pelvic (Non ) Result: Comments: See Note; NOTES: [facility] Imaging Services [address] [place] [address] Ultrasound Report MR#: [id number] Acct: [id number] Name: SAMMY SWANN Rep #: [id number] : 1940 F 74 From: Isidro Walden DO PCP: Marilu Uribe MD Status: REG CLI Study: Pelvic (Non ) Date of Exam: 11/15/14 Exam# [id number] Ordering Dr: Marilu Uribe MD STUDY: ULT [...] Isidro Walden DO at 13:25 EDT Tel [phone], Service support [phone], CC: Marilu Uribe MD Anode Worker: Signed 22-Oct-2014 Knee 4 or More Views Result: Comments: See Note; NOTES: [facility] Imaging Services [address] [place] [address] Radiology Report MR#: [id number] Acct: [id number] Name: SAMMY SWANN Rep #: [id number] : 1940 F 74 From: Hector Oliva MD PCP: Marilu Uribe MD Status: REG CLI Study: Knee 4 or More Views Date of Exam: 10/22/14 Exam# [id number] Ordering Dr: Verna Silveira DO STUDY: X- [...] MD at 16:21 EDT , Service support [phone], RAD/Knee 4 or More Views IMPRESSION: Medial compartmental arthrosis with small joint effusion. Electronically Signed: Hector Oliva MD at 16:21 EDT , Servic e support [phone], CC: Verna Silveira DO; Marilu Uribe MD Anode Worker: Signed 15-May-2014 Emergency Department Summary Result: Comments: See Note; NOTES: [facility] Medical Records Department [address] [place] [address] Emergency Department Summary MR#: [id number] Acct: [id number] Name: SAMMY SWANN Rep #: [id number] : 1940 73 From: Donnie Escobar MD [...] Julienne Brennan C: Marilu Meek MD T: MIL[place] JOB: [id number] 05/15/14 0838 <Electronically signed by Donnie Escobar MD> Date Donnie Escobar MD CC: Marilu Uribe MD; Toro shane MD Date Dictated: 05/11/14 1322 Date Transcribed: 05/11/141321 Anode Worker: Signed 11-May-2014 Discharge Instruction Result: Comments: See Note; NOTES: [facility] Medical Records Department [address] [place] [address] Discharge Instruction 05/11/147 MR#: [id number] Acct: [id number] Name: SAMMY SWANN Rep #: [id number] : 1940 73 From: Donnie Escobar MD [...] any unexpected problems, contact your doctor. Call [facility] ( [phone]) or report to the closest Emergency Room. Call 911 if necessary. 05/11/141318 <Electronically si gned by Donnie Escobar MD> Date Donnie Escobar MD Cosigner Signature (If Indicated): Date CC: Marilu Uribe MD 05-Sep-2013 Emergency Department Summary Result: Comments: See Note; NOTES: [facility] Medical Records Department [address] [place] [address] Emergency Department Summary MR#: [id number] Acct: [id number] Name: SAMMY SWANN Rep #: [id number] : 1940 73 From: Michael Jain MD [...] Julienne Okeefe C: Marilu Carroll MD T: [facility] JOB: [id number] 09/05/13 8829 <Electronically signed by Michael Jain MD> Date ___ Michael Jain MD CC: Marilu Uribe MD; Tanner Carroll MD Date Dictated: 09/01/13423 Date Transcribed: 09/01/13423 Anode Worker: Signed 05-Sep-2013 Emergency Department Summary Result: Comments: See Note; NOTES: [facility] Medical Records Department [address] [place] [address] Emergency Department Summary MR#: [id number] Acct: [id number] Name: SAMMY SWANN Rep #: [id number] : 1940 73 From: Michael Jain MD [...] rate 83, LVH. No acute signs of VA or ischemia. No old EKG available for [...] patient and she will be transferred to [facility]. Ligia see are on page, awaiting to speak to their physician. MD Julienne Okeefe C: Marilu Carroll MD T: [facility] JOB: [id number] 09/05/13 1701 <Electronically signed by Michael Jain MD> Date Michael Jain MD CC: Marilu Uribe MD; Tanner Carroll MD Date Dictated: 09/01/13447 Date Transcribed: 09/01/13447 Anode Worker: Signed 03-Sep-2013 12 Lead Electrocardiogram Result: Comments: See Note; NOTES: [facility] Cardiovascular Services [address] [place] [address] 12 Lead EKG 09/01/13 0256 MR#: [id number] Acct: [id number] Name: SAADIA SWANN Rep #: [id number] : 1940 73 From: Fredi Aponte MD [...] ECG Confirmed by JOSE MANUEL DELGADILLO, FREDI ([id number]), film editor supervisor FABIEN COVARRUBIAS ([id number]) on 2013 10:38:27 AM Referred By: Michael Jain Confirmed By:FREDI APONTE MD CC: Marilu Uribe MD Date Dictated: 09/01/13255 Date Transcribed: 09/01/13255 Anode Worker: Signed 01-Sep-2013 Chest 1 View (Portable) Result: Comments: See Note; NOTES: [facility] Imaging Services [address] [place] [address] Radiology Report MR#: [id number] Acct: [id number] Name: SAMMY SWANN Rep #: [id number] : 1940 F 73 From: Zeinab Escalona PCP: Marilu Uribe MD Status: DEP ER Study: Chest 1 View (Portable) Date of Exam: 09/01/13 Exam# [id number] Ordering Dr: Michael Jain MD STUDY: X-RAY [...] at 9:04 EDT Tel , Service support [phone], RAD/Chest 1 View (Portabl e) IMPRESSION: No evidence of acute cardiopulmonary disease. Stable chest. Electronically Signed: Virgen Escalona MD at 9:04 EDT Tel , Service support [phone], Fax CC: Marilu Uribe MD; Michael Jain MD Anode Worker: Signed Family History Unknown Family Member Name Dates Details Father Comments: Anxiety/depression, cancer (muscle cancer and pancreatic?) Status: Active Mother Comments: Breast 35 yo, colon polyps & HBP & Heart disease Status: Active Sister 1 Comments: Heart.lung disease, HBP & High cholesterol. Status: Active Social History Name Dates Details Caffeine Use Comments: 4 Cups QD Status: Active Current Work/Study Status Comments: Retired, [place] Status: Active Exercise History Comments: mow yard and house work..not sedentary, walk hour a day use seat belt Status: Active Living Situation Comments: lives with sister, son live in [place] Status: Active No Drug Use Status: Active Non Drinker/No Alcohol Use Status: Active Tobacco Use: Light tobacco smoker. Comments: 3-5 cigs for over 50 years Status: Active Tobacco use: Current every day smoker. Comments: updated 08-27-11 Status: Inactive Smoking Status Name Dates Details Former smoker Light tobacco smoker Vital Signs Date Test Result Details :34 Temperature 97.9 f Comments: Method: Temporal Pulse 76 /min Comments: Pattern: Regular Respiration Rate 20 /min Comments: Pattern: Unlabored O2 SAT 98 % Comments: Room air BP Systolic 160 mm[Hg] Comments: Patient Position: Sitting; Cuff Location: Left Arm; Cuff Size: Standard BP Diastolic 70 mm[Hg] Comments: Patient Position: Sitting; Cuff Location: Left Arm; Cuff Size: Standard Weight 163 lb Height 62.5 in Body Mass Index Calculated 29.34 kg/m2 Body Surface Area Calculated 1.76 m2 :24 Temperature 97.2 f Comments: Method: Temporal [...] kg/m2 Body Surface Area Calculated 1.78 m2 :35 Temperature 97.6 f Comments: Method: Temporal Pulse [...] kg/m2 Body Surface Area Calculated 1.77 m2 :57 Temperature 97.6 f Comments: Method: Temporal Pulse [...] kg/m2 Body Surface Area Calculated 1.77 m2 :51 Temperature 96.8 f Pulse 86 /min Comments: [...] kg/m2 Body Surface Area Calculated 1.75 m2 42-Qgm-088108:18 Pulse 67 /min Comments: Pattern: Regular Respiration [...] kg/m2 Body Surface Area Calculated 1.73 m2 30-Wal-288382:00 Temperature 97.5 f Comments: Method: Temporal Pulse [...] Height 0 in Head Circumference 0.00 cm 03-Oie-435616:45 Pulse 68 /min Comments: Pattern: Regular Respiration [...] 0.00 cm Results Date Description Value Details :53 Ferritin, Serum 11 ng/mL Comments: PATIENT NOT FASTINGPERFORMED BY: [employer] Jlwhgv6339 [facility] [id number] (Abnormal) Range: 15-150 :53 MICROALBUMIN: CREATININE RATIO Comments: PATIENT NOT FASTINGPERFORMED BY: [employer] Eftzib9071 [facility] [id number] (09150) AND (44001) Alb/Creat Ratio 10.1 {mg/g_creat} (Normal) Range: 0.0-30.0 Comments: Normal: 0.0 - 30.0 Albuminuria: 31.0 - 300.0 Clinical albuminuria: >300.0 Albumin, Urine 25.6 ug/mL (Normal) Creatinine, Urine 254.0 mg/dL (Normal) 75-Bpt-637940:53 URINALYSIS (14306) Comments: PATIENT NOT FASTINGPERFORMED BY: Youbei GameDeborah Heart and Lung CenterCbtnbj9554 [facility] [id number] Microscopic Examination MICNIP (Normal) Comments: Microscopic not indicated and not performed. Nitrite, Urine Negative (Normal) Urobilinogen,Semi-Qn 0.2 mg/dL (Normal) Range: 0.2-1.0 Bilirubin Negative (Normal) Occult Blood Negative (Normal) Ketones Negative (Normal) Glucose Negative (Normal) Protein Trace (Normal) WBC Esterase Negative (Normal) Appearance Turbid (Abnormal) Urine-Color Yellow (Normal) pH 5.0 (Normal) Range: 5.0-7.5 Specific [place] 1.024 (Normal) Range: 1.005-1.030 00-Fiz-773532:53 CBC WITH MANUAL DIFF Comments: PATIENT NOT FASTINGPERFORMED BY: Youbei GameDeborah Heart and Lung CenterUhitne6799 [facility] [id number] Information: ADD FERRITIN 907019 NURSE DRAW; fu 12-10 DB (73618) Immature Grans (Abs) 0.0 {x10E3/uL} (Normal) Range: 0.0-0.1 Immature Granulocytes 0 % (Normal) Baso (Absolute) 0.0 {x10E3/uL} (Normal) Range: 0.0-0.2 Eos (Absolute) 0.2 {x10E3/uL} (Normal) Range: 0.0-0.4 Monocytes(Absolute) 0.7 {x10E3/uL} (Normal) Range: 0.1-0.9 Lymphs (Absolute) 1.5 {x10E3/uL} (Normal) Range: 0.7-3.1 Neutrophils (Absolute) 6.8 {x10E3/uL} (Normal) Range: 1.4-7.0 Basos 0 % (Normal) Eos 2 % (Normal) Monocytes 7 % (Normal) Lymphs 16 % (Normal) Neutrophils 75 % (Normal) Platelets 379 {x10E3/uL} (Normal) Range: 150-379 RDW 16.4 % (Abnormal) Range: 12.3-15.4 MCHC 30.0 g/dL (Abnormal) Range: 31.5-35.7 MCH 23.8 pg (Abnormal) Range: 26.6-33.0 MCV 80 fL (Normal) Range: 79-97 Hematocrit 33.7 % (Abnormal) Range: 34.0-46.6 Hemoglobin 10.1 g/dL (Abnormal) Range: 11.1-15.9 RBC 4.24 {x10E6/uL} (Normal) Range: 3.77-5.28 WBC 9.2 {x10E3/uL} (Normal) Range: 3.4-10.8 66-Wau-341927:53 Metabolic Panel, Comprehensive Comments: PATIENT NOT FASTINGPERFORMED BY: LabCoDeborah Heart and Lung CenterUjtmmy2836 [facility] [id number] (49882) ALT (SGPT) 14 [iU]/L (Normal) Range: 0-32 AST (SGOT) 19 [iU]/L (Normal) Range: 0-40 Alkaline Phosphatase 83 [iU]/L (Normal) Range: 39-117 Bilirubin, Total 0.5 mg/dL (Normal) Range: 0.0-1.2 A/G Ratio 1.7 (Normal) Range: 1.2-2.2 Globulin, Total 2.6 g/dL (Normal) Range: 1.5-4.5 Albumin 4.5 g/dL (Normal) Range: 3.5-4.8 Protein, Total 7.1 g/dL (Normal) Range: 6.0-8.5 Calcium 9.3 mg/dL (Normal) Range: 8.7-10.3 Carbon Dioxide, Total 25 mmol/L (Normal) Range: 20-29 Chloride 98 mmol/L (Normal) Range: 96-106 Potassium 4.7 mmol/L (Normal) Range: 3.5-5.2 Sodium 143 mmol/L (Normal) Range: 134-144 BUN/Creatinine Ratio 13 (Normal) Range: 12-28 eGFR If Africn Am 47 mL/min/1.73 (Abnormal) eGFR If NonAfricn Am 41 mL/min/1.73 (Abnormal) Creatinine 1.26 mg/dL (Abnormal) Range: 0.57-1.00 BUN 17 mg/dL (Normal) Range: 8-27 Glucose 131 mg/dL (Abnormal) Range: 65-99 55-Jut-334531:01 CALCIFIDIOL (52216) VIT D 25 Comments: PATIENT NOT FASTINGPERFORMED BY: [facility]6370 [facility] [id number] Vitamin D, 25-Hydroxy 31.1 ng/mL (Normal) Range: 30.0-100.0 Comments: Vitamin D deficiency has been defined by the [place] ofFire[facility] Medical Centercine and an Endocrine Society practice guideline as alevel of serum 25-OH vitamin D less than 20 ng/mL (1,2).The Endocrine Society went on to further define vitamin Dinsufficiency as a level between 21 and 29 ng/mL (2).1. IOM ([place] of Medicine). 2010. Dietary reference intakes for calcium and D. [place]: The National Academies Press.2. Kayleen MF, Rohit BOLANOS, Roxanna BUENO, et al. Evaluation, treatment, and prevention of vitamin D deficiency: an Endocrine Society clinical practice guideline. JCEM. 2010; 96(7):1911-30. 35-Xek-806812:01 Metabolic Panel, Comprehensive Comments: PATIENT NOT FASTINGPERFORMED BY: LabCoDeborah Heart and Lung CenterQegkqz5583 [facility] [id number] (91560) ALT (SGPT) 15 [iU]/L (Normal) Range: 0-32 [...] 8-27 Glucose 110 mg/dL (Abnormal) Range: 65-99 98-Uky-339047:01 Ferritin (78943) Comments: PATIENT NOT FASTINGPERFORMED BY: [employer] Oumgtd4932 [facility]BN[facility] [id number] Ferritin, Serum 15 ng/mL (Normal) Range: 15-150 04-Zzk-971785:01 CBC (Auto) (76860) Comments: PATIENT NOT FASTINGPERFORMED BY: [employer] Matomy MarketNovant Health [facility] Center [id number] Platelets 354 {x10E3/uL} (Normal) Range: 150-379 RDW 17.2 % (Abnormal) Range: 12.3-15.4 MCHC 31.7 g/dL (Normal) Range: 31.5-35.7 MCH 24.5 pg (Abnormal) Range: 26.6-33.0 MCV 77 fL (Abnormal) Range: 79-97 Hematocrit 32.5 % (Abnormal) Range: 34.0-46.6 Hemoglobin 10.3 g/dL (Abnormal) Range: 11.1-15.9 RBC 4.20 {x10E6/uL} (Normal) Range: 3.77-5.28 WBC 8.0 {x10E3/uL} (Normal) Range: 3.4-10.8 86-Sij-672709:27 HgA1C , Office (06276) HgA1C , Office 6.4 % (Normal) Range: 4.6 - 7.1 86-Tsp-075619:27 CBC, Platelets & Auto Diff Comments: PATIENT NOT FASTINGPERFORMED BY: [employer] Ipwqwg4727 [facility]BNovant Health [facility] Center [id number] (56391) Immature Grans (Abs) 0.0 {x10E3/uL} (Normal) Range: [...] 3.77-5.28 WBC 8.7 {x10E3/uL} (Normal) Range: 3.4-10.8 56-Qfm-600927:27 Ferritin (65674) Comments: PATIENT NOT FASTINGPERFORMED BY: [facility]6370 [facility] [id number] Ferritin, Serum 12 ng/mL (Abnormal) Range: 15-150 83-Pxu-024471:27 Metabolic Panel, Basic Comments: PATIENT NOT FASTINGPERFORMED BY: [facility]6370 [facility] [id number] (58560) Calcium 9.0 mg/dL (Normal) Range: 8.7-10.3 Carbon [...] 8-27 Glucose 123 mg/dL (Abnormal) Range: 65-99 0-Wwb-212853:23 CBC W/Diff, Automated Comments: Order Date: 06/24/17Order Info: 0184-1 - CBCDOrder Info: 65469-2 - [facility] [address] [place], [address] Absolute Lymph 1.48 {X10_3/ul} (Normal) Range: 0.83-4.51 [...] 4.2-5.4 WBC 10.0 K/mm3 (Normal) Range: 4.4-11.0 1-Azq-415270:23 Comprehensive Metabolic Profil Comments: Order Date: 06/24/17Order Info: 0786-1 - CMPOrder Info: 1798-8 - AMYComments: stat all labs.Order Info: 3040-3 - [facility] [address] [place], [place], [address] GAP 7 (Normal) Range: 5-15 CO2 29.0 mmol/L (Normal) Range: 21.0-32.0 CL 105 mmol/L (Normal) Range: 98-107 K 4.6 mmol/L (Normal) Range: 3.5-5.1 NA 141 mmol/L (Normal) Range: 136-145 T BILI 0.50 mg/dL (Normal) Range: 0.20-1.00 ALT 17 U/L (Normal) Range: 13-56 Comments: Please note revised ALT reference range phvrizkca81/28/2018. ALK P 71 U/L (Normal) Range: 45-117 [...] A.D.A. criteria.Please note revised GLUCOSE reference range nvljelfld62/02/2018. 8-Hwq-883592:23 Erythrocyte Sed Rate Comments: Order Date: 06/24/17Order Info: 0184-1 - CBCDOrder Info: 75775-9 - [facility] Pxjkrvbnur[address] Sn[address], [id number] SED RATE 13 mm/h (Normal) Range: 0-30 9-Jmw-805333:23 Amylase (72713) Comments: stat all labs.; Order Date: 06/24/17Order Info: 0786-1 - CMPOrder Info: 1798-8 - AMYComments: stat all labs.Order Info: 3040-3 - L[facility]ASEBl[facility] Gdbyhveavo2362 [address] Snider, [id number] SELENE 35 U/L (Normal) Range: 25-115 3-Ugj-794055:23 Lipase (90424) Comments: Order Date: 06/24/17Order Info: 0786- 1 - CMPOrder Info: 1798-8 - AMYComments: stat all labs.Order Info: 3040- - [facility]ASEBl[facility] Hfhhqxeeed8205 [address] Snider, [id number] LIPASE 151 U/L (Normal) Range: 73-393 24-Jun-20179:52 FLU A+B DIRECT AG, (RAPID) (12277) FLU A+B DIRECT AG, (RAPID) negative (Normal) 31-Euw-830250:32 Basic Metabolic Profile (BMP) Comments: 'TROP' Serial specimen #1, #2, #3, or #4: 1[facility] Esxuaissic1982PATRICK Jameson, [id number] GAP 9 (Normal) Range: 5-15 CO2 28.0 [...] A.D.A. criteria.Please note revised GLUCOSE reference range lljroaiiz96/02/2018. 74-Qfl-298511:32 CBC W/Diff, Automated Comments: [facility] [address] [place], [address] Absolute Lymph 3.33 {X10_3/ul} (Normal) Range: 0.83-4.51 [...] 4.2-5.4 WBC 12.4 K/mm3 (Abnormal) Range: 4.4-11.0 50-Nxq-963196:32 Troponin-I Comments: 'TROP' Serial specimen #1, #2, #3, or #4: [address] [place] [address] Szshoftefu225[address] [place], [place], [id number] TROPONIN-I < 0.02 ng/mL (Normal) Comments: TROPONIN-I EXPECTED VALUES <0.05 NEGATIVE 0.06 - 0.59 AT RISK OF VA > OR = 0.60 SUGGEST VA 77-Ovl-850271:05 C1 Esterase Inhibitor, Comments: PATIENT NOT FASTINGPERFORMED BY: [employer] [id number] BY: DTTNovant Health Matthews Medical Center [id number] Func C1 Est.Inhib.Funct. 107 {%mean_normal} Comments: Abnormal <41 Equivocal 41 - 67 Normal >67 (Normal) 09-Jun-19 Thyroid Peroxidase (TPO) 7 {IU/mL} (Normal) Comments: PATIENT NOT FASTINGPERFORMED BY: [employer] [address] [id number] BY: [employer]70 [facility] ServicesAarden PharmaceuticalsNovant Health [facility] Medical Center [id number] 1814:05 Ab Range: 0-34 30-Fuc-720559:05 COMPLEMENT C1Q (16827) Comments: coming out complement NEED F5HOVPUWCV INHIBITOR; PATIENT NOT FASTINGPERFORMED BY: [employer] [address] [id number] BY: [employer]70 [facility] [id number] C1 Esterase Inhibitor, Serum 47 mg/dL (Abnormal) Range: 21-39 Comments: Results verified by repeat testing :05 CBC (Auto) (26888) Comments: PATIENT NOT FASTINGPERFORMED BY: Youbei Game[address] [id number] BY: [employer] Devyzh6108 Brown RoadCritical Access Hospitalin [place] [id number] Platelets 358 {x10E3/uL} (Normal) Range: 150-379 RDW 16.2 % (Abnormal) Range: 12.3-15.4 MCHC 31.2 g/dL (Abnormal) Range: 31.5-35.7 MCH 24.2 pg (Abnormal) Range: 26.6-33.0 MCV 78 fL (Abnormal) Range: 79-97 Hematocrit 32.4 % (Abnormal) Range: 34.0-46.6 Hemoglobin 10.1 g/dL (Abnormal) Range: 11.1-15.9 RBC 4.18 {x10E6/uL} (Normal) Range: 3.77-5.28 WBC 9.7 {x10E3/uL} (Normal) Range: 3.4-10.8 22-Qxk-233232:05 Vitamin B-12 Comments: PATIENT NOT FASTINGPERFORMED BY: [employer]bei Game[address] [id number] BY: [employer] Fmwwub8757 ZYBNovant Health Matthews Medical Center [id number] (cyanocobalamin) (74444) Vitamin B12 667 pg/mL (Normal) Range: 232-1245 33-Tfu-837070:05 Iron Binding Capacity Comments: PATIENT NOT FASTINGPERFORMED BY: Youbei Game[address] [id number] BY: [employer] Murtmp3251 [address] [place] [id number] (TIBC) (45733) Iron Saturation 7 % (Abnormal) Range: 15-55 Iron, Serum 30 ug/dL (Normal) Range: 27-139 UIBC 407 ug/dL (Abnormal) Range: 118-369 Iron Bind.Cap.(TIBC) 437 ug/dL (Normal) Range: 250-450 41-Zog-635903:05 Ferritin (36880) Comments: PATIENT NOT FASTINGPERFORMED BY: [employer] [address] [id number] BY: [employer] Rspqfr6484 [facility] [id number] Ferritin, Serum 11 ng/mL (Abnormal) Range: 15-150 51-Khx-008903:05 GLORIA (ANTINUCLEAR ANTIBODY) Comments: all these labs to Dr. carvalho; PATIENT NOT FASTINGPERFORMED BY: Youbei Game[address] [id number] BY: [email or web address] [facility] [id number] (19466) GLORIA Direct Negative (Normal) 26-Vrb-881457:05 ESR-F (SED RATE Comments: PATIENT NOT FASTINGPERFORMED BY: [employer] [address] [id number] BY: C4Robolin6370 [facility] [id number] ERYTHROCYTE - FEMALE) (75678) Sedimentation Rate-Westergren 25 mm/h (Normal) Range: 0-40 39-Lva-064502:05 ANCA-C (ANTI NEUTROPHIL Comments: PATIENT NOT FASTINGPERFORMED BY: [employer] [address] [id number] BY: C4Robolin6370 [facility] [id number] CYTOPLASMIC ANTIBODY) Atypical pANCA <1:20 {titer} Comments: [...] follow up testing ofpositive sera with both KY-3 and MPO-ANCA enzyme immunoassays. Asmany as 5% serum samp les are positive only by EIA.Ref. AM J Clin Pathol 1999;111:507-513. Cytoplasmic (C-ANCA) <1:20 {titer} (Normal) Antiproteinase 3 (KY-3) Abs <3.5 U/mL (Normal) Range: 0.0-3.5 Antimyeloperoxidase (MPO) Abs <9.0 U/mL (Normal) Range: 0.0-9.0 64-Crp-475168:05 TSH (68103) Comments: PATIENT NOT FASTINGPERFORMED BY: [place] 374127 [facility] [id number] BY: [address] [id number] TSH 3.920 {uIU/mL} (Normal) Range: 0.450-4.500 88-Kpa-963883:03 HgA1C , Office (94954) HgA1C , Office 6.3 % (Normal) Range: 4.6 - 7.1 33-Jvw-499144:58 Platelet Count on Citrated Comments: PATIENT NOT FASTINGPERFORMED BY: [address] [id number] Bld Plt Count, Citrated Bld 295 {X10E3/uL} (Normal) Range: 150-379 09-Bhz-988054:58 PTT (Activated Partial Comments: PATIENT NOT FASTINGPERFORMED BY: [facility]6370 [facility] [id number] Thromboplastin Time) (68019) aPTT 26 {sec} (Normal) Range: 24-33 Comments: This test has not been validated for monitoring unfractionated heparintherapy. aPTT-based therapeutic ranges for unfractionated heparintherapy have not been established. For general guidelines onHeparin monitoring, refer to the [facility] Directory of Services. 82-Hin-856071:58 PT (Prothrobim Time) (76310) Comments: PATIENT NOT FASTINGPERFORMED BY: [place] 7377870 [facility] [id number] Prothrombin Time 11.1 {sec} (Normal) Range: 9.1-12.0 INR 1.1 (Normal) Range: 0.8-1.2 Comments: Reference interval is for non-anticoagulated patients. . Suggested INR therapeutic range for Vitamin K anta gonist therapy: Standard Dose (moderate intensity therapeutic range): 2.0 - 3.0 Higher intensity therapeutic range 2.5 - 3.5 :24 Bedside Glucose Comments: [facility] LaboratoryPoint of Nyqc[address] [place], [place] [address] BEDSIDE GLU 195 mg/dL (Abnormal) Range: 70-110 Comments: MANAGEMENT OF PATIENT CARE PER NURSING PROTOCOL :34 CBC (Auto) (80260) Comments: PATIENT NOT FASTINGPERFORMED BY: Youbei GameDeborah Heart and Lung CenterOyhuis7646 [facility] [id number] Platelets 294 {x10E3/uL} (Normal) Range: 150-379 RDW 15.3 % (Normal) Range: 12.3-15.4 MCHC 32.1 g/dL (Normal) Range: 31.5-35.7 MCH 26.7 pg (Normal) Range: 26.6-33.0 MCV 83 fL (Normal) Range: 79-97 Hematocrit 34.9 % (Normal) Range: 34.0-46.6 Hemoglobin 11.2 g/dL (Normal) Range: 11.1-15.9 RBC 4.19 {x10E6/uL} (Normal) Range: 3.77-5.28 WBC 7.4 {x10E3/uL} (Normal) Range: 3.4-10.8 :34 Metabolic Panel, Comments: PATIENT NOT FASTINGPERFORMED BY: LabCoDeborah Heart and Lung CenterWbuwhm9047 [facility] [id number] Information: NURSE DRAW Comprehensive (54733) ALT (SGPT) 16 [iU]/L (Normal) Range: 0-32 [...] Glucose, Serum 115 mg/dL (Abnormal) Range: 65-99 7-Eke-108941:34 Ferritin (48515) Comments: PATIENT NOT FASTINGPERFORMED BY: [employer] Bzzxhu9280 [facility] [id number] Ferritin, Serum 19 ng/mL (Normal) Range: 15-150 11-Nso-483129:17 HgA1C , Office (83923) HgA1C , Office 6.3 % (Normal) Range: 4.6 - 7.1 10-Kgd-952116:13 LIPOPROTEIN, BLD, BY NMR Comments: copy to Dr. carroll; PATIENT WAS FASTINGPERFORMED BY: LabCoDorothy Ville 175997 [facility] [id number] BY: [employer] Dfncci9414 [facility] [id number] (46127) LP-IR Score 71 (Abnormal) Comments: INSULIN RESISTANCE MARKER <--Insulin Sensitive Insulin Resistant--> Percentile in Reference PopulationInsulin Resistance ScoreLP-IR Score Low 25th 50th 75th High <27 27 45 63 >63LP-IR Score is inaccurate if patient is non-fasting. .The LP-IR score is a laboratory developed [facility] that has beenassociated with insulin resistance and [...] 1600 - 2000 Very High > 2000 13-Iha-857358:13 Ferritin (72860) Comments: PATIENT WAS FASTINGPERFORMED BY: Youbei Game[address] [id number] BY: [facility]6370 [facility] [id number] Ferritin, Serum 36 ng/mL (Normal) Range: 15-150 13-Ict-719729:13 CBC with auto diff Comments: PATIENT WAS FASTINGPERFORMED BY: Youbei Game[address] [id number] BY: Youbei GameDeborah Heart and Lung CenterWfvjso9709 [facility] [id number] (27730) Immature Grans (Abs) 0.0 {x10E3/uL} (Normal) Range: [...] 3.77-5.28 WBC 7.2 {x10E3/uL} (Normal) Range: 3.4-10.8 99-Ran-186866:13 METABOLIC PANEL, Comments: PATIENT WAS FASTINGPERFORMED BY: BN [facility] Dkvqjbhkvb4058 [facility] [id number] BY: CB [facility] Ywiftk0557 [facility] [id number] COMPREHENSIVE (12066) ALT (SGPT) 13 [iU]/L (Normal) Range: 0-32 [...] Glucose, Serum 121 mg/dL (Abnormal) Range: 65-99 6-Vgz-905547:39 HgA1C , Office (65595) HgA1C , Office 6.4 % (Normal) Range: 4.6 - 7.1 24-Yun-345787:20 Fecal Occult Blood , Office (63858) Fecal Occult Blood , Office (Inhouse) negative (Normal) 27-Zea-966891:52 Stool Guiac Test, Office (Medicare) (G0107) Stool Guiac Test, Office (Medicare) Negative (Normal) 7-Coz-363786:54 Ferritin (28718) Comments: recheck in 4 weeks; PATIENT WAS FASTINGPERFORMED BY: [email or web address] [facility]ooCarroll [facility] Hospital [id number] Ferritin, Serum 139 ng/mL (Normal) Range: 15-150 8-Cpw-074966:54 Iron Binding Capacity (TIBC) Comments: recheck in 4 weeks; PATIENT WAS FASTINGPERFORMED BY: DTTNovant Health Matthews Medical Center [id number] ([id number]) Iron Saturation 14 % (Abnormal) Range: 15-55 Iron, Serum 50 ug/dL (Normal) Range: 27-139 UIBC 296 ug/dL (Normal) Range: 118-369 Iron Bind.Cap.(TIBC) 346 ug/dL (Normal) Range: 250-450 :54 CBC WITH MANUAL DIFF ([id number]) Comments: recheck in 4 weeks; PATIENT WAS FASTINGPERFORMED BY: [email or web address] ZYBNov[facility] [id number]; fu 12-16 Immature Grans (Abs) 0.0 {x10E3/uL} [...] Protein, 8.3 mg/L (Abnormal) Comments: PERFORMED BY: Youbei [address] [id number] BY: [address] [id number] 3:14 Quant Range: 0.0-4.9 [id number]-[id number]:14 CBC, Platelet, No Comments: PERFORMED BY: Youbei Game08 [address] [id number] BY: [address] [id number] Differential Platelets 346 {x10E3/uL} Range: 150-379 (Normal) RDW 16.2 % (Abnormal) Range: 12.3-15.4 MCHC 32.3 g/dL (Normal) Range: 31.5-35.7 MCH 25.3 pg (Abnormal) Range: 26.6-33.0 MCV 78 fL (Abnormal) Range: 79-97 Hematocrit 30.3 % (Abnormal) Range: 34.0-46.6 Hemoglobin 9.8 g/dL (Abnormal) Range: 11.1-15.9 RBC 3.88 {x10E6/uL} Range: 3.77-5.28 (Normal) WBC 7.9 {x10E3/uL} Range: 3.4-10.8 (Normal) Ferritin, Serum 12 ng/mL (Abnormal) Comments: PERFORMED BY: Youbei GameDeborah Heart and Lung CenterMlnmxc7326 [facility] [id number] BY: [place] [id number] :14 Range: 15-150 Folate (Folic Acid), 14.8 ng/mL (Normal) Comments: PERFORMED BY: Youbei GameDeborah Heart and Lung CenterSattky0568 [facility] [id number] BY: [place] [id number] :14 Serum Comments: A serum folate concentration of less than 3.1 ng/mL isconsidered to represent clinical deficiency. :14 Iron and TIBC Comments: PERFORMED BY: Youbei GameDeborah Heart and Lung CenterDkmrtx4777 [facility] [id number] BY: [place] [id number] Iron Saturation 7 % (Abnormal) Range: 15-55 Iron, Serum 32 ug/dL (Normal) Range: 27-139 UIBC 395 ug/dL (Abnormal) Range: 118-369 Iron Bind.Cap.(TIBC) 427 ug/dL (Normal) Range: 250-450 Methylmalonic Acid, 288 nmol/L (Normal) Comments: PERFORMED BY: Youbei GameDeborah Heart and Lung CenterIvjvvh3237 [facility] [id number] BY: [address] [id number] 3:14 Serum Range: 0-378 Potassium, Serum 4.2 mmol/L (Normal) Comments: PERFORMED BY: Youbei GameDeborah Heart and Lung CenterMcgtbx2583 [facility] [id number] BY: [address] [id number] 3:14 Range: 3.5-5.2 Reticulocyte Count 1.5 % (Normal) Comments: PERFORMED BY: [facility] Fuajoy0814 [facility] [id number] BY: Lab[address] [id number] 3:14 Range: 0.6-2.6 Sedimentation 24 mm/h (Normal) Comments: PERFORMED BY: [facility] Fvggwc4776 [facility] [id number] BY: LabCo[address] [id number] 3:14 Rate-Westergren Range: 0-40 Vitamin B12 532 pg/mL (Normal) Comments: PERFORMED BY: [facility] Jidcqd5654 [facility] [id number] BY: LabCo[address] [id number] 3:14 Range: 211-946 4-Ezn-658515:05 Urinalysis, Complete Comments: note - microscopic exam done on unspun urine because only 1ml sample obtainedHow was Urine Obtained? [facility] Szvczncvlw7417 [place], [place], [id number] MUCUS, URINE 0 SEEN {/hpf} (Normal) BACTERIA [...] CLARITY Sl. Cloudy (Normal) COLOR Yellow (Normal) 9-Lru-388373:25 Basic Metabolic Profile (BMP) Comments: 'TROP' Serial specimen #1, #2, #3, or #4: [facility] Sguksioawi[address] [place], [place], [id number] GAP 6 (Normal) Range: 5-15 CO2 31.0 [...] 126 mg/dLsuggests DIABETES MELLITUS per A.D.A. criteria. 1-Dme-674409:25 CBC W/Diff, Automated Comments: [facility] Rmbjzimbkz12[address] [place], [place], [address] Absolute Lymph 1.98 {X10_3/ul} (Normal) Range: 0.83-4.51 [...] 4.2-5.4 WBC 8.7 K/mm3 (Normal) Range: 4.4-11.0 9-Bqy-233240:25 Troponin-I Comments: 'TROP' Serial specimen #1, #2, #3, or #4: [address] [place] [address] Xxrfmyoads8229 [address] [place], [place], [address] TROPONIN-I < 0.02 ng/mL (Normal) Comments: TROPONIN-I EXPECTED VALUES <0.05 NEGATIVE 0.06 - 0.59 AT RISK OF VA > OR = 0.60 SUGGEST VA 15-Yhu-512362:54 CBC (Auto) (12474) Comments: PATIENT NOT FASTINGPERFORMED BY: CB [facility] [address] [id number] BY: BN [facility] [address] [id number] Inf ormation: [id number], 827169 Platelets 374 {x10E3/uL} (Normal) Range: 150-379 RDW 14.8 % (Normal) Range: 12.3-15.4 MCHC 33.0 g/dL (Normal) Range: 31.5-35.7 MCH 27.6 pg (Normal) Range: 26.6-33.0 MCV 84 fL (Normal) Range: 79-97 Hematocrit 32.4 % (Abnormal) Range: 34.0-46.6 Hemoglobin 10.7 g/dL (Abnormal) Range: 11.1-15.9 RBC 3.87 {x10E6/uL} (Normal) Range: 3.77-5.28 WBC 9.4 {x10E3/uL} (Normal) Range: 3.4-10.8 :54 RETICULOCYTE COUNT (73545) Comments: PATIENT NOT FASTINGPERFORMED BY: CinnaBid LabCartesian Yqzrvo2646 Brown RoadDublin [place] [id number] BY: [address] [id number] Reticulocyte Count 2.0 % (Normal) Range: 0.6-2.6 :54 LDH (LD) (LACTATE Comments: PATIENT NOT FASTINGPERFORMED BY: [employer] Suikfd0316 Brown RoadDublin [place] [id number] BY: [address] [id number] DEHYDROGENASE) (32247) LDH 213 [iU]/L (Normal) Range: 119-226 09-Ygy-338763:54 Methymalonic Acid, Serum Comments: PATIENT NOT FASTINGPERFORMED BY: [employer] Htdmpj9693 Brown RoadDublin [place] [id number] BY: [address] [id number] (99437) Methylmalonic Acid, Serum 238 nmol/L (Normal) Range: 0-378 :54 Vitamin B-12 Comments: PATIENT NOT FASTINGPERFORMED BY: [employer] Qfealq2746 Brown RoadDublin [place] [id number] BY: [address] [id number] (cyanocobalamin) (13454) Vitamin B12 565 pg/mL (Normal) Range: 211-946 :54 Iron Binding Capacity Comments: PATIENT NOT FASTINGPERFORMED BY: LabCartesian Cttafa3207 Brown RoadDublin [place] [id number] BY: [facility] [id number] (TIBC) (69329) Iron Saturation 7 % (Abnormal) Range: 15-55 Iron, Serum 31 ug/dL (Normal) Range: 27-139 UIBC 434 ug/dL (Abnormal) Range: 118-369 Iron Bind.Cap.(TIBC) 465 ug/dL (Abnormal) Range: 250-450 :54 Ferritin (73232) Comments: PATIENT NOT FASTINGPERFORMED BY: WhirlpoolPatrick Ville 7237270 [facility] [id number] BY: Leetchi[address] [id number] Ferritin, Serum 10 ng/mL (Abnormal) Range: 15-150 :54 Folic Acid Serum (92922) Comments: PATIENT NOT FASTINGPERFORMED BY: WhirlpoolPatrick Ville 7237270 [facility] [id number] BY: Youbei Game[address] [id number] Folate (Folic Acid), Serum 12.7 ng/mL (Normal) Comments: A serum folate concentration of less than 3.1 ng/mL isconsidered to represent clinical deficiency. :54 Metabolic Panel, Comments: PATIENT NOT FASTINGPERFORMED BY: WhirlpoolDeborah Heart and Lung CenterZivfub2859 [facility] [id number] Information: [id number] [facility] (29871) ALT (SGPT) 20 [iU]/L (Normal) Range: 0-32 [...] Glucose, Serum 132 mg/dL (Abnormal) Range: 65-99 :54 CBC (Auto) (37063) Comments: PATIENT NOT FASTINGPERFORMED BY: Tifen.comCommunity Health [id number] Platelets 323 {x10E3/uL} (Normal) Range: 150-379 RDW 16.9 % (Abnormal) Range: 12.3-15.4 MCHC 32.8 g/dL (Normal) Range: 31.5-35.7 MCH 26.7 pg (Normal) Range: 26.6-33.0 MCV 82 fL (Normal) Range: 79-97 Hematocrit 36.6 % (Normal) Range: 34.0-46.6 Hemoglobin 12.0 g/dL (Normal) Range: 11.1-15.9 RBC 4.49 {x10E6/uL} (Normal) Range: 3.77-5.28 WBC 8.1 {x10E3/uL} (Normal) Range: 3.4-10.8 :54 Iron (99146) Comments: PATIENT NOT FASTINGPERFORMED BY: WhirlpoolDeborah Heart and Lung CenterVnyjru7062 Tap2printCommunity Health [id number] Iron, Serum 40 ug/dL (Normal) Range: 27-139 Comments: Please note reference interval change :54 Ferritin (39429) Comments: PATIENT NOT FASTINGPERFORMED BY: LabCoDeborah Heart and Lung CenterUwakwz2396 [facility] [id number] Ferritin, Serum 22 ng/mL (Normal) Range: 15-150 45-Sax-409802:01 TSH (94833) Comments: PATIENT NOT FASTINGPERFORMED BY: LabCoDeborah Heart and Lung CenterSlyetj7372 [facility] [id number] TSH 2.620 {uIU/mL} (Normal) Range: 0.450-4.500 95-Nna-130785:01 CBC (Auto) (46170) Comments: PATIENT NOT FASTINGPERFORMED BY: [facility]6370 [facility] [id number] Information: [id number] Platelets 316 {x10E3/uL} (Normal) Range: 150-379 RDW 17.8 % (Abnormal) Range: 12.3-15.4 MCHC 31.2 g/dL (Abnormal) Range: 31.5-35.7 MCH 25.4 pg (Abnormal) Range: 26.6-33.0 MCV 82 fL (Normal) Range: 79-97 Hematocrit 35.3 % (Normal) Range: 34.0-46.6 Hemoglobin 11.0 g/dL (Abnormal) Range: 11.1-15.9 RBC 4.33 {x10E6/uL} (Normal) Range: 3.77-5.28 WBC 8.8 {x10E3/uL} (Normal) Range: 3.4-10.8 61-Vid-321001:01 Ferritin (07057) Comments: PATIENT NOT FASTINGPERFORMED BY: LabCoDeborah Heart and Lung CenterNuvfeh4548 [facility] [id number] Ferritin, Serum 20 ng/mL (Normal) Range: 15-150 :54 Pap IG (Image Comments: Source.............Cervical;EndocervicalNo. of containers..01 CYTYC Thin Prep VialPATIENT NOT FASTINGPERFORMED BY: =Annia LabCochrissy Jmwhqupsxo245 [facility] [id number] BY: BRADY L Guided) Neida Hotktlvzpa130 [facility] W [id number] Note: PAPSMR (Normal) Comments: The Pap smear [...] PRESENT.THIS SPECIMEN WAS RESCREENED PART OF OUR CASE FITTER PROGRAM.Satisfactory for evaluati on. Endocervical and/or squamous metaplasticcells (endocervical component) are present.627.1 ; Postmenopausal bleedingCyntjose d Horta, Etiology Teacher (ASCP)Usha Davis Etiology Teacher (ASCP) 99-Jbz-66168:54 Thin Prep Pap Comments: Source.............Cervical;EndocervicalNo. of containers..01 CYTYC Thin Prep VialPATIENT NOT FASTINGPERFORMED BY: =G [facility] [address] [id number] BY: BRADY Gonzalez (35461) [facility] Aepfuflvpe689 [facility] [id number] Information: [id number] Age Gdln ACOG Testing AGE6 (Normal) Comments: <21 or >65 or no age provided 10-Jox-847659:56 Urinalysis, Office (65867) UA - LEUKOCYTE ESTERASE Small (Normal) UA - NITRITE Negative (Normal) URINE UROBILINGN BLANCO TIMED Normal mg/dL (Normal) UA - PROTEIN Negative mg/dL (Normal) UA - PH 7.5 (Normal) UA - BLOOD Non Hemolyzed Trace (Normal) UA - SPECIFIC GRAVITY 1.015 (Normal) UA - KETONES Negative mg/dL (Normal) UA - BILIRUBIN Negative (Normal) UA - GLUCOSE Negative (Normal) 33-Gsv-091494:13 Culture, Body Fluid Comments: Test performed at:[facility] Rkvulglumg[address] [place] [address] ; ordered by another doctor CUBF See Note (Normal) Comments: List Antibiotics Last 48 Hours? UList Antibiotics to be Started? UComments: LEFT KNEEGram StainGram Stain No organisms seen No White Blood Cells Body Fluid CultNO GROWTH IN 14 DAYS Cult, AnaerobicNo anaerobic bacteria isolated. 41-Tns-551045:13 Miscellaneous Lab Procedure Comments: Comments: LEFT KNEETest(s) Ordered: PROTEIN SYNOVIAL LC#[id number] Test(s) Ordered by Physician: GLUCOSE SYNOVIAL LC#[id number] performed at:[facility] Pumhygxwxu8440 [facility] [place], [place] [address] MISC Comments: TEST RESULT UNITS REFERENCE INTERVALGlucose, [...] theclinical context for interpretation. TESTING PERFORMED AT [facility]. ORIGINAL REPORT ON FILE IN LAB CONTAINS ADDITIONAL TEST SITE INF ORMATION. 21-Osd-801521:13 Miscellaneous Lab Procedure 2 Comments: Comments: LEFT KNEETest(s) Ordered: PROTEIN SYNOVIAL LC#[id number] Test(s) Ordered by Physician: GLUCOSE SYNOVIAL LC#[id number] performed at:[facility] [place] [address] [facility] Comments: TEST RESULT UNITS REFERENCE INTERVALProtein, Body [...] the clinical context forinterpretation. TESTING PERFORMED AT [facility]. ORIGINAL REPORT ON FILE IN LAB CONTAINS ADDITIONAL TEST SITE INFORMA TION. :13 Synovial Fluid RBC, WBC AND Comments: Test performed at:[facility] Nauzpovtkg7968 [place] [address] ; ordered by Dr. Silveira Diff PATH COM/SYFL May follow (Normal) MONO 96 [...] % (Normal) Comments: PATIENT NOT FASTINGPERFORMED BY: JOHNATHON [facility]Saint [facility] Qrymuu8804 [facility] [id number] Information: [id number] Range: 0.6-2.6 :27 CBC With Differential/Platelet Comments: PATIENT WAS FASTINGPERFORMED BY: [facility]6370 [facility] [id number] Information: [id number] Immature Grans (Abs) 0.0 {x10E3/uL} (Normal) Range: [...] Panel (14) Comments: PATIENT WAS FASTINGPERFORMED BY: [facility]6370 [facility] [id number] ALT (SGPT) 13 [iU]/L (Normal) Range: 0-32 [...] ng/mL (Normal) Comments: PATIENT WAS FASTINGPERFORMED BY: [employer]6370 [facility] [id number] 27 Range: 15-150 :27 Lipid Panel With LDL/HDL Comments: PATIENT WAS FASTINGPERFORMED BY: [employer] Kjsnpu2184 [facility] [id number] Ratio LDL/HDL Ratio 2.0 {ratio_units} (Normal) Range: [...] Microscopic Examination Comments: PATIENT WAS FASTINGPERFORMED BY: [employer] [place] EnplugCommunity [facility] [id number] Bacteria Few (Normal) Mucus Threads Present (Normal) Epithelial Cells (non renal) 0-10 {/hpf} (Normal) Range: 0 - 10 RBC 3-10 {/hpf} (Abnormal) Range: 0 - 2 WBC 11-30 {/hpf} (Abnormal) Range: 0 - 5 :27 Urinalysis, Complete Comments: PATIENT WAS FASTINGPERFORMED BY: [employer] [facility] [id number] Microscopic Examination See below: (Normal) Comments: Microscopic was indicated and was performed. Nitrite, Urine Negative (Normal) Urobilinogen,Semi-Qn 0.2 mg/dL (Normal) Range: 0.0-1.9 Bilirubin Negative (Normal) Occult Blood 1+ (Abnormal) Ketones Negative (Normal) Glucose Negative (Normal) Protein Trace (Normal) WBC Esterase 2+ (Abnormal) Appearance Clear (Normal) Urine-Color Yellow (Normal) pH 6.5 (Normal) Range: 5.0-7.5 Specific [place] 1.021 (Normal) Range: 1.005-1.030 65-Znm-491430:37 CBC, Platelets & Auto Comments: PATIENT NOT FASTINGPERFORMED BY: [employer]i [employer] Anmhty4825 [facility] [id number] Information: [id number] Diff (06498) Immature Grans (Abs) 0.0 {x10E3/uL} (Normal) Range: [...] 3.77-5.28 WBC 7.4 {x10E3/uL} (Normal) Range: 3.4-10.8 39-Lme-750870:37 Metabolic Panel, Comprehensive Comments: PATIENT NOT FASTINGPERFORMED BY: LabCoDeborah Heart and Lung CenterXjkzst5309 [facility] [id number] (65774) ALT (SGPT) 16 [iU]/L (Normal) Range: 0-32 [...] Glucose, Serum 115 mg/dL (Abnormal) Range: 65-99 53-Dll-640535:37 Ferritin (35942) Comments: PATIENT NOT FASTINGPERFORMED BY: CinnaBid LabCoEdoomeMmbfcg2155 [facility] [id number] Ferritin, Serum 20 ng/mL (Normal) Range: 15-150 :49 Lipid Panel (55573) Comments: copy to Dr. carroll all labs.; PATIENT WAS FASTINGPERFORMED BY: CinnaBid [facility] Jlxjhv8479 [facility] [id number] LDL/HDL Ratio 1.9 {ratio_units} (Normal) Range: 0.0-3.2 [...] Panel, Comprehensive Comments: PATIENT WAS FASTINGPERFORMED BY: [employer] Amgwbu9213 [facility] [id number] (57666) ALT (SGPT) 12 [iU]/L (Normal) Range: 0-32 [...] 99 mg/dL (Normal) Range: 65-99 :49 Ferritin (96596) Comments: PATIENT WAS FASTINGPERFORMED BY: [employer] Nnfutt1376 [facility] [id number] Ferritin, Serum 21 ng/mL (Normal) Range: 15-150 :49 CBC W/AUTO DIFF WBC Comments: PATIENT WAS FASTINGPERFORMED BY: [employer] Zbsghm3816 [facility] [id number] Information: [id number] (91943) Immature Grans (Abs) 0.0 {x10E3/uL} (Normal) Range: [...] 3.77-5.28 WBC 6.6 {x10E3/uL} (Normal) Range: 3.4-10.8 4-Nyi-296093:40 Metabolic Panel, Comments: PATIENT NOT FASTINGPERFORMED BY: LabCoDeborah Heart and Lung CenterYhqfie4475 [facility] [id number] Information: [id number] Comprehensive (35172) ALT (SGPT) 14 [iU]/L (Normal) Range: 0-32 [...] Glucose, Serum 79 mg/dL (Normal) Range: 65-99 0-Xdo-912409:40 CBC (Auto) (35372) Comments: PATIENT NOT FASTINGPERFORMED BY: [facility] Wwaron0591 [facility] [id number] Platelets 332 {x10E3/uL} (Normal) Range: 150-379 RDW 15.9 % (Abnormal) Range: 12.3-15.4 MCHC 32.0 g/dL (Normal) Range: 31.5-35.7 MCH 26.6 pg (Normal) Range: 26.6-33.0 MCV 83 fL (Normal) Range: 79-97 Hematocrit 34.7 % (Normal) Range: 34.0-46.6 Hemoglobin 11.1 g/dL (Normal) Range: 11.1-15.9 RBC 4.18 {x10E6/uL} (Normal) Range: 3.77-5.28 WBC 8.3 {x10E3/uL} (Normal) Range: 3.4-10.8 6-Kvs-483959:40 Ferritin (32147) Comments: PATIENT NOT FASTINGPERFORMED BY: LabCoDeborah Heart and Lung CenterJietww1206 Stephanie FountainCritical Access Hospitalgillian [place] [id number] Ferritin, Serum 35 ng/mL (Normal) Range: 15-150 [...] <0.05 NEGATIVE0.06 - 0.59 AT RISK OF VA> OR = 0.60 SUGGEST VA 79-Hxl-588268:16 Lipid Panel (95251) Comments: PATIENT WAS FASTINGPERFORMED BY: [facility] Gkzqnp8469 [facility] [id number] LDL/HDL Ratio 1.8 {ratio_units} (Normal) Range: 0.0-3.2 LDL Cholesterol Calc 115 mg/dL (Abnormal) Range: 0-99 VLDL Cholesterol Nicolás 20 mg/dL (Normal) Range: 5-40 Cholesterol, Total 200 mg/dL (Abnormal) Range: 100-199 HDL Cholesterol 65 mg/dL (Normal) Comments: According to ATP-III Guidelines, HDL-C >59 mg/dL is considered anegative risk factor for CHD. Triglycerides 101 mg/dL (Normal) Range: 0-149 87-Hag-558422:16 Ferritin (46003) Comments: PATIENT WAS FASTINGPERFORMED BY: [facility]chiTr[facility]6370 [facility] [id number] Ferritin, Serum 9 ng/mL (Abnormal) Range: 15-150 43-Egi-255641:43 URINE MUKESH CULTURE-IDENTIFICATN Comments: PATIENT NOT FASTINGPERFORMED BY: [facility]chiTr[facility]6370 [facility] [id number] Information: [id number] (47293) Result 1 MUG (Normal) Comments: Mixed urogenital flora10,000-25,000 colony forming units per mL Urine Final report (Normal) Culture,Comprehensive 62-Mld-886316:16 METABOLIC PANEL, COMPREHENSIVE Comments: PATIENT WAS FASTINGPERFORMED BY: [facility]chiTr[facility]6370 [facility] [id number] (95496) ALT (SGPT) 11 [iU]/L (Normal) Range: 0-32 [...] Glucose, Serum 103 mg/dL (Abnormal) Range: 65-99 :16 CBC WITH MANUAL DIFF Comments: PATIENT WAS FASTINGPERFORMED BY: LabCoMountain View Regional Medical CenterArwczy8741 [facility] [id number] Information: [id number] (67034) Immature Grans (Abs) 0.0 {x10E3/uL} (Normal) Range: [...] 3.77-5.28 WBC 7.5 {x10E3/uL} (Normal) Range: 3.4-10.8 37-Qlj-552869:30 Urinalysis, Office (46958) UA - LEUKOCYTE ESTERASE Small (Normal) UA - NITRITE Negative (Normal) URINE UROBILINGN BLANCO TIMED Normal mg/dL (Normal) UA - PROTEIN Negative mg/dL (Normal) UA - PH 8 (Abnormal) UA - BLOOD Negative (Normal) UA - SPECIFIC GRAVITY 1.015 (Normal) UA - KETONES Negative mg/dL (Normal) UA - BILIRUBIN Negative (Normal) UA - GLUCOSE Negative (Normal) 13-Dcy-544085:42 Lipid Panel (39606) Comments: PATIENT WAS FASTINGPERFORMED BY: [employer] Zzddcw6103 [facility] [id number] LDL/HDL Ratio 1.8 {ratio_units} (Normal) Range: 0.0-3.2 LDL Cholesterol Calc 116 mg/dL (Abnormal) Range: 0-99 VLDL Cholesterol Nicolás 24 mg/dL (Normal) Range: 5-40 HDL Cholesterol 64 mg/dL (Normal) Comments: According to ATP-III Guidelines, HDL-C >59 mg/dL is considered anegative risk factor for CHD. Triglycerides 118 mg/dL (Normal) Range: 0-149 Cholesterol, Total 204 mg/dL (Abnormal) Range: 100-199 77-Yan-959084:42 CBC (Auto) (67895) Comments: PATIENT WAS FASTINGPERFORMED BY: Youbei GameDeborah Heart and Lung CenterXjrqab5465 [facility] [id number] Information: [id number] Platelets 292 {x10E3/uL} (Normal) Range: 155-379 RDW 15.7 % (Abnormal) Range: 12.3-15.4 MCH 27.6 pg (Normal) Range: 26.6-33.0 MCHC 32.1 g/dL (Normal) Range: 31.5-35.7 MCV 86 fL (Normal) Range: 79-97 Hematocrit 39.0 % (Normal) Range: 34.0-46.6 Hemoglobin 12.5 g/dL (Normal) Range: 11.1-15.9 RBC 4.53 {x10E6/uL} (Normal) Range: 3.77-5.28 WBC 6.4 {x10E3/uL} (Normal) Range: 3.4-10.8 97-Gto-711555:30 METABOLIC PANEL, COMPREHENSIVE Comments: PATIENT NOT FASTINGPERFORMED BY: Youbei GameDeborah Heart and Lung CenterHupbjh8192 [facility] [id number] (85198) ALT (SGPT) 15 [iU]/L (Normal) Range: 0-32 [...] Glucose, Serum 104 mg/dL (Abnormal) Range: 65-99 90-Jhh-725265:30 CBC with manual diff Comments: PATIENT NOT FASTINGPERFORMED BY: [facility]6370 [facility] [id number] Information: [id number] (95149) Immature Grans (Abs) 0.0 {x10E3/uL} (Normal) Range: [...] 3.77-5.28 WBC 7.8 {x10E3/uL} (Normal) Range: 3.4-10.8 67-Dlc-725881:30 Iron (39318) Comments: PATIENT NOT FASTINGPERFORMED BY: [facility]chiTr[facility]6370 [facility] [id number] Iron, Serum 61 ug/dL (Normal) Range: 35-155 34-Vwf-829720:30 Ferritin (62872) Comments: PATIENT NOT FASTINGPERFORMED BY: [facility]chiTr[facility] Hospital[address] [place] [address] [id number] Ferritin, Serum 12 ng/mL (Abnormal) Range: 15-150 8-Sqi-566286:40 CBC (Auto) (25715) Comments: PATIENT NOT FASTINGPERFORMED BY: [facility] [place] [address] [id number] Information: [id number] Platelets 307 {x10E3/uL} (Normal) Range: 140-415 RDW 21.0 % (Abnormal) Range: 12.3-15.4 MCHC 31.6 g/dL (Normal) Range: 31.5-35.7 MCH 25.3 pg (Abnormal) Range: 26.6-33.0 MCV 80 fL (Normal) Range: 79-97 Hematocrit 34.8 % (Normal) Range: 34.0-46.6 Hemoglobin 11.0 g/dL (Abnormal) Range: 11.1-15.9 RBC 4.35 {x10E6/uL} (Normal) Range: 3.77-5.28 WBC 7.4 {x10E3/uL} (Normal) Range: 4.0-10.5 3-Bdm-533733:40 Iron (66715) Comments: PATIENT NOT FASTINGPERFORMED BY: [employer] [facility] Gjqzri2358 [facility] [id number] Iron, Serum 30 ug/dL (Abnormal) Range: 35-155 5-Kfz-951651:40 Ferritin (31314) Comments: PATIENT NOT FASTINGPERFORMED BY: CinnaBid [facility] Bozsfv1304 [facility] [id number] Ferritin, Serum 16 ng/mL (Normal) Range: 15-150 8-Vwl-111341:11 CBC (Auto) (94362) Comments: PATIENT NOT FASTINGPERFORMED BY: [facility] Gngsnh1557 [facility] [id number] Information: [id number] Platelets 428 {x10E3/uL} Range: 140-415 (Abnormal) RDW [...] EIA Negative (Normal) Comments: PERFORMED BY: [facility] Vxgnldjapr5911 [facility] [id number] Information: SRC: 43 :47 CBC With Differential/Platelet Comments: PERFORMED BY: [facility] Dpwknq9325 [facility] [id number] Immature Grans (Abs) 0.0 {x10E3/uL} (Normal) Range: [...] Comp. Metabolic Panel (14) Comments: PERFORMED BY: [employer] [facility] [id number] ALT (SGPT) 14 [iU]/L (Normal) Range: 0-32 [...] Serum 6 ng/mL (Abnormal) Comments: PERFORMED BY: [employer] [facility] [id number] 47 Range: 13-150 : Iron, Serum 28 ug/dL (Abnormal) Comments: PERFORMED BY: Figure 1 [facility] [id number] 47 Range: 35-155 [id number]-[id number]: LDH 203 [iU]/L (Normal) Comments: [facility]: [facility] [id number] 47 Range: 0-214 [id number]:47 Lipid Panel With LDL/HDL Comments: [facility]: [facility] [id number] Ratio LDL/HDL Ratio 1.6 {ratio_units} Range: 0.0-3.2 [...] Count 1.8 % (Normal) Comments: [facility]: [facility] [id number] 8:47 Range: 0.6-2.6 [id number] CHEST, PA AND LATERAL Radiology Report See [...] Sierra M.D.November 27, 2011 at 7:18:04 AM [id number] Signed GP/GP If you are the referring physician and would like to consult with theradiologist who provided this interpretation, please co eduard Cade M.D. at [phone]. If this radiologist is unavailable, youwill be directed to another radiologist to assist. If you are a patient with a question regarding this report, rashaun waltersyoavery referring physician directly. Professional Interpretation Provided By: Exam18, Phone , These documents contain legally protected [...] ITS IMPORTSign by Manolo Sierra MD on 11/27/11 0724 Sign by: Manolo Sierra MD 28-Kqw-09631:35 MICROALBUMIN: CREATININE RATIO Comments: PATIENT WAS FASTINGPERFORMED BY: [employer] Mfksic7887 [facility] ServicesAarden PharmaceuticalsNovant Health [facility] Medical Center [id number] (23981) AND (64980) Microalb/Creat Ratio 7.6 {mg/g_creat} (Normal) Range: 0.0-30.0 Microalbumin, Urine 5.9 ug/mL (Normal) Range: 0.0-17.0 Creatinine, Urine 77.3 mg/dL (Normal) Range: 15.0-278.0 04-Zdg-537224:09 Comp. Metabolic Panel (14) Comments: PATIENT WAS FASTINGPERFORMED BY: WhirlpoolDeborah Heart and Lung CenterTvqsvg6985 [facility] [id number] ALT (SGPT) 16 [iU]/L (Normal) Range: 0-40 [...] mg/dL (Normal) Range: 65-99 :35 LIPID PANEL (85384) Comments: PATIENT WAS FASTINGPERFORMED BY: DTTNovant Health Matthews Medical Center [id number] LDL/HDL Ratio 1.8 {ratio_units} (Normal) Range: 0.0-3.2 LDL Cholesterol Calc 112 mg/dL (Abnormal) Range: 0-99 VLDL Cholesterol Nicolás 28 mg/dL (Normal) Range: 5-40 HDL Cholesterol 62 mg/dL (Normal) Comments: According to ATP-III Guidelines, HDL-C >59 mg/dL is considered anegative risk factor for CHD. Triglycerides 139 mg/dL (Normal) Range: 0-149 Cholesterol, Total 202 mg/dL (Abnormal) Range: 100-199 :35 CBC WITH MANUAL DIFF Comments: PATIENT WAS FASTINGPERFORMED BY: DTTNovant Health Matthews Medical Center [id number] Information: [id number] (14003) Immature Grans (Abs) 0.0 {x10E3/uL} (Normal) Range: [...] {x10E3/uL} (Normal) Range: 4.0-10.5 :57 LIPID PANEL (09056) Comments: PATIENT WAS FASTINGPERFORMED BY: [facility] Sibrup8757 [facility] [id number] LDL/HDL Ratio 1.7 {ratio_units} (Normal) Range: 0.0-3.2 LDL Cholesterol Calc 107 mg/dL (Abnormal) Range: 0-99 VLDL Cholesterol Nioclás 25 mg/dL (Normal) Range: 5-40 HDL Cholesterol 63 mg/dL (Normal) Comments: According to ATP-III Guidelines, HDL-C >59 mg/dL is considered anegative risk factor for CHD. Triglycerides 125 mg/dL (Normal) Range: 0-149 Cholesterol, Total 195 mg/dL (Normal) Range: 100-199 92-Upt-455917:57 CBC WITH MANUAL DIFF Comments: PATIENT WAS FASTINGPERFORMED BY: LabCoDeborah Heart and Lung CenterQvfwdq1524 [facility] [id number] Information: [id number] (42022) Immature Grans (Abs) 0.0 {x10E3/uL} (Normal) Range: [...] 3.80-5.10 WBC 6.3 {x10E3/uL} (Normal) Range: 4.0-10.5 :28 CBC WITH MANUAL DIFF Comments: PATIENT WAS FASTINGPERFORMED BY: LabTr[facility]6370 [facility] [id number] Information: [id number] (39619) Immature Grans (Abs) 0.0 {x10E3/uL} (Normal) Range: [...] {x10E3/uL} (Normal) Range: 4.0-10.5 :28 LIPID PANEL (03226) Comments: PATIENT WAS FASTINGPERFORMED BY: Youbei GameDeborah Heart and Lung CenterQptcle9585 [facility] [id number] LDL/HDL Ratio 2.0 {ratio_units} (Normal) Range: 0.0-3.2 [...] PANEL, COMPREHENSIVE Comments: PATIENT WAS FASTINGPERFORMED BY: Culture Kitchenlin6370 [facility] [id number] (31031) ALT (SGPT) 19 [iU]/L (Normal) Range: 0-40 [...] mg/dL (Normal) Range: 65-99 :51 LIPID PANEL (12562) Comments: PATIENT WAS FASTINGPERFORMED BY: Rally.org70 [facility] [id number] LDL Cholesterol Calc 105 mg/dL (Abnormal) Range: [...] METABOLIC PANEL, Comments: PATIENT WAS FASTINGPERFORMED BY: C4Robolin6370 [facility] [id number] Information: [id number] COMPREHENSIVE (17172) ALT (SGPT) 20 [iU]/L (Normal) Range: 0-40 [...] Glucose, Serum 85 mg/dL (Normal) Range: 65-99 79-Ryd-33231:00 Microscopic Examination Comments: PERFORMED BY: Rally.org70 [facility]YBNovant Health [facility] Medical Center [id number] Bacteria None seen (Normal) Crystal Type Amorphous Sediment (Normal) Crystals Present (Abnormal) Mucus Threads Present (Normal) Epithelial Cells (non renal) 0-10 {/hpf} (Normal) Range: 0 - 10 RBC None seen {/hpf} (Normal) Range: 0 - 3 WBC 0-5 {/hpf} (Normal) Range: 0 - 5 09-Ubt-28216:22 Microscopic Examination Comments: PATIENT WAS FASTINGPERFORMED BY: Athos6370 [facility]BNovant [facility] [id number] Bacteria None seen (Normal) Mucus Threads Present (Normal) Crystal Type Calcium Oxalate (Normal) Crystals Present (Abnormal) Cast Type Hyaline casts (Normal) Casts Present {/lpf} (Abnormal) Epithelial Cells (non renal) 0-10 {/hpf} (Normal) Range: 0 - 10 RBC 0-3 {/hpf} (Normal) Range: 0 - 3 WBC 6-10 {/hpf} (Abnormal) Range: 0 - 5 :22 LIPID PANEL (39479) Comments: PATIENT WAS FASTINGPERFORMED BY: Youbei GameDeborah Heart and Lung CenterEprorx3043 [facility] [id number] LDL Cholesterol Calc 119 mg/dL (Abnormal) Range: 0-99 LDL/HDL Ratio 2.4 {ratio_units} (Normal) Range: 0.0-3.2 VLDL Cholesterol Nicolás 33 mg/dL (Normal) Range: 5-40 HDL Cholesterol 49 mg/dL (Normal) Comments: According to ATP-III Guidelines, HDL-C >59 mg/dL is considered anegative risk factor for CHD. Triglycerides 164 mg/dL (Abnormal) Range: 0-149 Cholesterol, Total 201 mg/dL (Abnormal) Range: 100-199 :22 URINALYSIS (78636) Comments: PATIENT WAS FASTINGPERFORMED BY: Youbei Game Xkbnlp8504 [facility] [id number] Microscopic Examination See below: (Normal) Nitrite, Urine Negative (Normal) Urobilinogen,Semi-Qn 0.2 mg/dL (Normal) Range: 0.0-1.9 Bilirubin Negative (Normal) Occult Blood Negative (Normal) Glucose Negative (Normal) Ketones Negative (Normal) Protein Trace (Normal) WBC Esterase 2+ (Abnormal) Appearance Clear (Normal) pH 7.0 (Normal) Range: 5.0-7.5 Specific [place] 1.025 (Normal) Range: 1.005-1.030 Urine-Color Yellow (Normal) :22 CBC (Auto) (80416) Comments: PATIENT WAS FASTINGPERFORMED BY: Youbei GameDeborah Heart and Lung CenterDkludk8419 [facility] [id number] Platelets 274 {x10E3/uL} (Normal) Range: 140-415 RDW 14.5 % (Normal) Range: 11.7-15.0 Hematocrit 40.6 % (Normal) Range: 34.0-44.0 MCH 30.9 pg (Normal) Range: 27.0-34.0 MCHC 34.7 g/dL (Normal) Range: 32.0-36.0 MCV 89 fL (Normal) Range: 80-98 Hemoglobin 14.1 g/dL (Normal) Range: 11.5-15.0 RBC 4.57 {x10E6/uL} (Normal) Range: 3.80-5.10 WBC 7.0 {x10E3/uL} (Normal) Range: 4.0-10.5 :22 Metabolic Panel, Comments: PATIENT WAS FASTINGPERFORMED BY: LabCoDeborah Heart and Lung CenterCzaixm3360 [facility] [id number] Information: [id number] Comprehensive (28777) ALT (SGPT) 15 [iU]/L (Normal) Range: 0-40 [...] Glucose, Serum 91 mg/dL (Normal) Range: 65-99 60-Zci-966284:04 CBC With Differential/Platelet Comments: A courtesy copy of this report has been sent [phone].PATIENT WAS FASTINGClinical Information: [id number] PERFORMED BY: JOHNATHON LabTr[facility] Hospital6370 [facility] [id number] Baso (Absolute) 0.0 {x10E3/uL} (Normal) Range: 0.0-0.2 [...] 11.7-15.0 WBC 6.6 {x10E3/uL} (Normal) Range: 4.0-10.5 :04 Comp. Metabolic Panel (14) Comments: A courtesy copy of this report has been sent [phone].PATIENT WAS FASTINGPERFORMED BY: JOHNATHON Youbei Game Guumbd9721 [facility] [id number] A/G Ratio 1.6 (Normal) Range: 1.1-2.5 Albumin, [...] Sodium, Serum 142 mmol/L Range: 135-145 (Normal) -Jan-2009 LDH 198 [iU]/L Comments: A courtesy copy of this report has been sent [phone].PATIENT WAS FASTINGPERFORMED BY: Youbei GameDeborah Heart and Lung CenterGfucxo0753 [facility] [id number] 11:04 (Normal) Range: 100-250 03-Ear-788562:04 Lipid Panel With LDL/HDL Comments: A courtesy copy of this report has been sent [phone].PATIENT WAS FASTINGPERFORMED BY: [facility]6370 [facility] [id number] Ratio Cholesterol, Total 210 mg/dL (Abnormal) Range: 100-199 HDL Cholesterol 57 mg/dL (Normal) Comments: According to ATP-III Guidelines, HDL-C >59 mg/dL is considered anegative risk factor for CHD. LDL Cholesterol Calc 129 mg/dL (Abnormal) Range: 0-99 LDL/HDL Ratio 2.3 {ratio_units} (Normal) Range: 0.0-3.2 Triglycerides 118 mg/dL (Normal) Range: 0-149 VLDL Cholesterol Nicolás 24 mg/dL (Normal) Range: 5-40 80-Jwg-273325:04 Microscopic Examination Comments: A courtesy copy of this report has been sent [phone].PATIENT WAS FASTINGPERFORMED BY: LeetchiTrinity Health Oakland Hospital6370 [facility] [id number] Bacteria None seen (Normal) Cast Type Hyaline casts (Normal) Casts Present {/lpf} (Abnormal) Crystal Type Calcium Oxalate (Normal) Comments: Amorphous Sediment Crystals Present (Abnormal) Epithelial Cells (non renal) 0-10 {/hpf} (Normal) Range: 0 - 10 Mucus Threads Present (Normal) RBC None seen {/hpf} (Normal) Range: 0 - 3 WBC 0-5 {/hpf} (Normal) Range: 0 - 5 09-Avy-068199:04 Urinalysis, Routine Comments: A courtesy copy of this report has been sent [phone].PATIENT WAS FASTINGPERFORMED BY: [facility]6370 [facility] [id number] Appearance Cloudy (Abnormal) Bilirubin Negative (Normal) Glucose Negative (Normal) Ketones Negative (Normal) Microscopic Examination See below: (Normal) Nitrite, Urine Negative (Normal) Occult Blood Negative (Normal) pH 7.0 (Normal) Range: 5.0-7.5 Protein 1+ (Abnormal) Specific [place] 1.023 (Normal) Range: 1.005-1.030 Urine-Color Yellow (Normal) Urobilinogen,Semi-Qn 0.2 mg/dL (Normal) Range: 0.0-1.9 WBC Esterase 1+ (Abnormal) :00 URINALYSIS W/O MICRO (99415) Comments: PERFORMED BY: C4Robolin6370 [facility] [id number] Bilirubin Negative (Normal) Microscopic Examination See below: (Normal) Nitrite, Urine Negative (Normal) Occult Blood Negative (Normal) Urobilinogen,Semi-Qn 0.2 mg/dL (Normal) Range: 0.0-1.9 Glucose Negative (Normal) Ketones Negative (Normal) Protein Trace (Normal) WBC Esterase Trace (Abnormal) Appearance Cloudy (Abnormal) pH 7.0 (Normal) Range: 5.0-7.5 Specific [place] 1.021 (Normal) Range: 1.005-1.030 Urine-Color Yellow (Normal) :00 METABOLIC PANEL, COMPREHENSIVE Comments: PERFORMED BY: C4Robolin6370 [facility] [id number] (09225) A/G Ratio 1.6 (Normal) Range: 1.1-2.5 Albumin, [...] Glucose, Serum 84 mg/dL (Normal) Range: 65-99 :00 LIPID PANEL (30876) Comments: PERFORMED BY: NoWait [place] [id number] HDL Cholesterol 52 mg/dL (Normal) Comments: According to ATP-III Guidelines, HDL-C >59 mg/dL is considered anegative risk factor for CHD. LDL Cholesterol Calc 121 mg/dL (Abnormal) Range: 0-99 LDL/HDL Ratio 2.3 {ratio_units} (Normal) Range: 0.0-3.2 VLDL Cholesterol Nicolás 29 mg/dL (Normal) Range: 5-40 Cholesterol, Total 202 mg/dL (Abnormal) Range: 100-199 Triglycerides 143 mg/dL (Normal) Range: 0-149 :00 CBC WITH MANUAL DIFF (77831) Comments: send copy to Dr. sav sanderson; PERFORMED BY: CinnaBid LabCoEdoomeLdwjmb3109 [facility]BNovant [facility] [id number] Baso (Absolute) 0.0 {x10E3/uL} (Normal) Range: 0.0-0.2 [...] 3.80-5.10 WBC 6.0 {x10E3/uL} (Normal) Range: 4.0-10.5 88-Qii-65610:43 Metabolic Panel, Comprehensive Comments: in three months (approximately); PATIENT WAS FASTINGClinical Information: ADD DRAW FEE [id number] ADD J 53370 PERFORMED BY: LabSharon V[place] [id number] [place] [address] [id number] (01912) A/G Ratio 1.7 (Normal) Range: 1.1-2.5 Albumin, [...] Sodium, Serum 142 mmol/L (Normal) Range: 135-145 :43 Lipid Panel (12275) Comments: PATIENT WAS FASTINGPERFORMED BY: SeekSherpa [facility] [id number] Cholesterol, Total 207 mg/dL (Abnormal) Range: 100-199 [...] Cholesterol Nicolás 22 mg/dL (Normal) Range: 5-40 52-Jnp-47036:00 MICROALBUMIN: CREATININE RATIO Comments: PATIENT WAS FASTINGPERFORMED BY: Tifen.comDublin [place] [id number] (36391) AND (20099) Creatinine, Urine 224.8 mg/dL (Normal) Range: 15.0-278.0 Microalb/Creat Ratio 3.4 {ug/mg_creat} (Normal) Range: 0.0-30.0 Microalbum.,U,Random 7.7 ug/mL (Normal) Range: 0.0-17.0 15-Iif-48217:00 METABOLIC PANEL, COMPREHENSIVE Comments: PATIENT WAS FASTINGPERFORMED BY: JOHNATHON LabCoDeborah Heart and Lung CenterEmhgjq3834 [facility] [id number] (08167) A/G Ratio 1.6 (Normal) Range: 1.1-2.5 Albumin, [...] Serum 89 mg/dL (Normal) Range: 65-99 If -Bahraini >59 mL/min/1.73 Comments: Note: Persistent reduction for [...] Sodium, Serum 143 mmol/L (Normal) Range: 135-145 68-Fyl-94149:00 LIPID PANEL (39389) Comments: PATIENT WAS FASTINGPERFORMED BY: CinnaBid LabHopkins Golf70 [facility] [id number] Cholesterol, Total 208 mg/dL (Abnormal) Range: 100-199 [...] Range: 5-40 :00 CBC WITH MANUAL DIFF (45875) Comments: PATIENT WAS FASTINGClinical Information: ADD DRAW FEE [id number] ADD J 89731 PERFORMED BY: LabGemvaraTjaxvw6074 [facility] [id number] Baso (Absolute) 0.1 {x10E3/uL} (Normal) Range: 0.0-0.2 [...] 500 mg/dL VLDL 24 mg/dL (Normal) Range: -40 :41 L/S SPINE,MIN 4 VIEWS Radiology Report See Note (Normal) Comments: Exam Number: [id number] FIVE VIEW LUMBAR SPINE AP, LATERAL, BOTH [...] 500 mg/dL VLDL 28 mg/dL (Normal) Range: 5-40 :04 LIPID CHOL 187 mg/dL (Normal) Comments: [...] 500 mg/dL VLDL 29 mg/dL (Normal) Range: 5-40 :04 LIVER ALB 3.7 g/dL (Normal) Range: [...] artery disease Coronary artery disease : Reviewed Inside Wireman Letter Indication: Coronary artery disease Tobacco use [...] cyst Planned Observations CBC WITH MANUAL DIFF (40885)Indication: Anemia On: 54-Ews-293376:39 Request Comments: recheck in February Ferritin (40274)Indication: Anemia On: 00-Lqz-256543:38 Request Comments: re check in February Stool Guiac Test, Office (Medicare) (G0107)Indication: Iron deficiency anemia due to chronic blood loss On: 27-Jun-20179:36 Request Sed Rate Erythrocyte (32078)Indication: Abdominal pain, acute, right upper quadrant (Renamed from Acute abdominal pain in right upper quadrant) On: 8-Ahu-451957:20 Request CBC, Platelets & Auto Diff (30675)Indication: Abdominal pain, acute, right upper quadrant (Renamed from Acute abdominal pain in right upper quadrant) On: 3-Xah-559225:20 Request Metabolic Panel, Comprehensive (93643)Indication: Abdominal pain, acute, right upper quadrant (Renamed from Acute abdominal pain in right upper quadrant) On: 8-Swu-551870:19 Request COMPLEMENT FUNC ACT-EA COMP (73680)Indication: Hives On: 56-Wpw-536299:47 Request Comments: C1 esterase inhibitor functional Iron (55677)Indication: Iron deficiency anemia due to chronic blood loss On: 08-Oce-774569:42 Request ANCA-P (ANTI NEUTROPHIL CYTOPLASMIC ANTIBODY)Indication: Hives On: 20-Gbm-619274:34 Request Anti-TPO Antibody (64930)Indication: Hives On: 85-Drg-172221:34 Request Platelet 47037 (citrate, nonclumping tube)Indication: Tongue abnormality On: 71-Ttf-490824:26 Request LIPOPROTEIN, BLD, BY NMR (27670)Indication: Mild hypertension On: 16-Ywl-631228:32 Request METABOLIC PANEL, COMPREHENSIVE (29261)Indication: Mild hypertension On: 17-Vjy-354788:32 Request CALCIFIDIOL (78853) VIT D 25Indication: Vitamin D insufficiency On: 24-Oyr-720919:31 Request MICROALBUMIN: CREATININE RATIO (02926) AND (25549)Indication: Mild hypertension On: 38-Pkq-005030:53 Request LIPOPROTEIN, BLD, BY NMR (17479)Indication: Mild hypertension On: :53 Request Ferritin (35087)Indication: Iron deficiency anemia due to chronic blood loss On: :11 Request CBC (Auto) (79232)Indication: Iron deficiency anemia due to chronic blood loss On: :10 Request Iron (55449)Indication: Iron deficiency anemia due to chronic blood loss On: :46 Request Comments: recheck in 4 weeks RETICULOCYTE COUNT (43965)Indication: Iron deficiency anemia due to chronic blood loss On: :51 Request Iron Binding Capacity (TIBC) (58531)Indication: Iron deficiency anemia due to chronic blood loss On: :51 Request Iron (48909)Indication: Iron deficiency anemia due to chronic blood loss On: :51 Request Methymalonic Acid, Serum (73202)Indication: Iron deficiency anemia due to chronic blood loss On: :50 Request Vitamin B-12 (cyanocobalamin) (15442)Indication: Iron deficiency anemia due to chronic blood loss On: :50 Request Folic Acid Serum (67622)Indication: Iron deficiency anemia due to chronic blood loss On: :50 Request Ferritin (37994)Indication: Iron deficiency anemia due to chronic blood loss On: :50 Request CBC (Auto) (00279)Indication: Iron deficiency anemia due to chronic blood loss On: :50 Request POTASSIUM SERUM (62785)Indication: Hypokalemia On: :48 Request C-Reactive Protein (76750)Indication: Chronic nonintractable headache, unspecified headache type On: :46 Request Sed Rate Erythrocyte (23465)Indication: Chronic nonintractable headache, unspecified headache type On: :46 Request Renal function Panel (85048)Indication: Mild hypertension On: :46 Request Stool Guiac Test, Office (Medicare) (G0107)Indication: Iron deficiency anemia due to chronic blood loss On: 13-Ron-960055:52 Request Iron (14302)Indication: Iron deficiency anemia due to chronic blood loss On: 29-Ssb-362174:51 Request Iron (84980)Indication: Iron deficiency anemia due to chronic blood loss On: 79-Xkq-017196:14 Request Ferritin (87302)Indication: Iron deficiency anemia due to chronic blood loss On: 64-Yjf-792832:14 Request CBC & PLATELETS (AUTO) (46762)Indication: PMB (postmenopausal bleeding) On: 95-Nkv-258329:12 Request PTT (ACTIVATED PARTIAL THROMBOPLASTIN TIME) (34399)Indication: PMB (postmenopausal bleeding) On: 04-Bas-528133:12 Request PT/INR, Office (31309)Indication: PMB (postmenopausal bleeding) On: :12 Request PROLACTIN (22195)Indication: PMB (postmenopausal bleeding) On: :12 Request TSH (THYROID STIMULATING HORMONE) (35573)Indication: PMB (postmenopausal bleeding) On: 47-Rze-254481:12 Request RETICULOCYTE COUNT (22523)Indication: Iron deficiency anemia due to chronic blood loss On: 99-Pul-063897:38 Request Ferritin (33621)Indication: Iron deficiency anemia due to chronic blood loss On: 48-Suf-971034:35 Request URINALYSIS, W/ MICRO (13093)Indication: Mild hypertension On: 56-Eet-245599:33 Request METABOLIC PANEL, COMPREHENSIVE (26354)Indication: Mild hypertension On: 70-Ekn-687033:33 Request LIPID PANEL (98293)Indication: Mild hypertension On: :33 Request CBC with auto diff (77873)Indication: Mild hypertension On: 43-Hjd-777127:33 Request Ferritin (65251)Indication: Iron deficiency anemia due to chronic blood loss On: 03-Yit-783002:19 Request Comments: recheck in 6 weeks Iron Binding Capacity (TIBC) (38411)Indication: Iron deficiency anemia due to chronic blood loss On: 99-Epx-621680:19 Request Comments: recheck in 6 weeks Iron (98958)Indication: Iron deficiency anemia due to chronic blood loss On: 26-Nte-173062:19 Request Comments: recheck in 6 weeks METABOLIC PANEL, COMPREHENSIVE (80958)Indication: Mild hypertension On: 01-Wsm-790035:29 Request CBC (Auto) (92704)Indication: Iron deficiency anemia due to chronic blood loss On: 71-Oon-780918:27 Request Ferritin (19912)Indication: Iron deficiency anemia due to chronic blood loss On: 64-Tae-922126:27 Request Metabolic Panel, Comprehensive (91914)Indication: Iron deficiency anemia due to chronic blood loss On: 2-Ldi-541824:46 Request CBC with manual diff (90784)Indication: Iron deficiency anemia due to chronic blood loss On: 2-Otf-155390:46 Request Ferritin (13570)Indication: Iron deficiency anemia due to chronic blood loss On: 5-Utb-084739:46 Request CBC (Auto) (79290)Indication: Iron deficiency anemia due to chronic blood loss On: 12-Sxa-341368:16 Request Ferritin (51247)Indication: Iron deficiency anemia due to chronic blood loss On: 3-Sld-936452:36 Request Comments: 4 weeks CBC (Auto) (81517)Indication: Iron deficiency anemia due to chronic blood loss On: 8-Tvd-244645:36 Request Comments: 4 weeks Helicobacter pylori Ag, EIA (48123)Indication: Iron deficiency anemia due to chronic blood loss On: 5-Vus-779030:31 Request Comments: do [place] RETICULOCYTE COUNT (79762)Indication: Abnormal blood chemistry On: :26 Request IRON (43883)Indication: Abnormal blood chemistry On: :26 Request FERRITIN (03882)Indication: Abnormal blood chemistry On: :26 Request LDH (LD) (LACTATE DEHYDROGENASE) (62165)Indication: Abnormal blood chemistry On: :25 Request OCCULT BLOOD FECES SCREEN - card done in office (33040)Indication: Abnormal blood chemistry On: :25 Request FECAL OCCULT- Tubes sent home (91924)Indication: Abnormal blood chemistry On: :25 Request METABOLIC PANEL, COMPREHENSIVE (85606)Indication: Mild hypertension On: :40 Request LIPID PANEL (96184)Indication: Mild hypertension On: :40 Request CBC WITH MANUAL DIFF (09585)Indication: Mild hypertension On: :40 Request Comments: in three months (approximately) CBC (Auto) (14554)Indication: Mild hypertension On: :02 Request Metabolic Panel, Comprehensive (95033)Indication: Mild hypertension On: :02 Request Lipid Panel (92631)Indication: Mild hypertension On: :02 Request Comments: in three months (approximately) HEPATIC FUNCTION PANEL (86692)Indication: Hypercholesterolemia On: :58 Request Comments: in three months (approximately) Lipid Panel (14473)Indication: Hypercholesterolemia On: :58 Request CBC (Auto) (31752)Indication: Mild hypertension On: :18 Request Metabolic Panel, Comprehensive (73304)Indication: Mild hypertension On: :18 Request Lipid Panel (99446)Indication: Mild hypertension On: :18 Request Comments: in three months (approximately) CBC WITH MANUAL DIFF (79750)Indication: Hypercholesterolemia On: 83-Ntx-531130:50 Request METABOLIC PANEL, COMPREHENSIVE (92226)Indication: Hypercholesterolemia On: 69-Eyu-974339:50 Request LIPID PANEL (96333)Indication: Hypercholesterolemia On: 68-Prq-920667:50 Request Metabolic Panel, Comprehensive (46515)Indication: Hypercholesterolemia On: 32-Aqx-248741:48 Request Lipid Panel (01332)Indication: Hypercholesterolemia On: 63-Luz-413476:48 Request Comments: in three months HEPATIC FUNCTION PANEL (18828)Indication: Hypercholesterolemia On: 41-Wzq-847691:07 Request LIPID PANEL (60621)Indication: Hypercholesterolemia On: 41-Ozn-089105:07 Request Comments: in six months URINALYSIS W/O MICRO (37741)Indication: Mild hypertension On: 48-Zos-163544:04 Request CBC WITH MANUAL DIFF (22550)Indication: Mild hypertension On: 34-Ash-929826:04 Request LIPID PANEL (48423)Indication: Mild hypertension On: 08-Mdc-845511:04 Request METABOLIC PANEL, COMPREHENSIVE (73501)Indication: Mild hypertension On: 10-Vrt-217577:04 Request Planned Procedures Bone Density StudyBy: Gemini DELGADILLO, On: 03-Apr-2018 Intent Marilu Uribe MD, Marilu Harris CT - Abdomen & Pelvis (Without On: 27-Jun-2017 Intent Contrast)By: Marilu Uribe MD Comments: rule out appenditis rule out tumor with iron def. anemia Marilu Uribe MD INFUSION, NORMAL SALINE SOLUTION , On: 24-Jun-2017 Intent 1000 CC (Special Coverage Comments: IV Therapy eclllgpep80V, 1 inchSite: L ac Tolerated: wellno redness or swelling, no s/s infiltrationmlong, advertising designer Instructions Apply. See MCM: 2049) (J7030)By: Marilu Uribe MD, MD, Dana M CT - LDCT CHEST ( WITHOUT CONTRAST On: 01-Jul-2016 Intent )By: Marilu Uribe MD, MD, Comments: LDCT pt has over 30 pack year history, current smoker, no had one in the last year, would have curative surgery if need, no current signs or suymptoms Marilu Harris DEXA SCAN AXIAL SKELETON (25153)By: On: 19-Feb-2016 Intent Marilu Uribe MD, MD, [...] Intent Marilu DELGADILLO MD, Dana M EKG (21462)By: Marilu Uribe MD On: 22-Jan-2013 Intent Marilu Uribe MD Comments: see scanned document of test done to see results reviewed today with patient EKG (21332)By: Nithya Nieto On: 29-Jun-2012 Intent [employer]ET [employer]OOFER Eprescribed prescriptions On: 21-Mar-2012 Intent (G8553)By: Gemini DELGADILLO, Marilu Berman MD Radiology - ChestBy: Gemini DELGADILLO, On: 26-Nov-2011 Intent Marilu Berman MD Radiology - Lumbar SpineBy: Gemini On: 06-Jan-2007 Intent Marilu DELGADILLO MD, Dana M Planned Medications INFUSION, NORMAL SALINE SOLUTION , 1000 CC Ordered: 24-Jun-2017 Pending Marilu Uribe MD, MD, Marilu Harris Instructions Name Dates Details Annual Medicare Physical : How to access [...] Patient Instructions Indication: Other chest pain Encounters Review On: 03-Apr-2018 12:34 Encounter Reason: Physical female exam - Last seen between 3-6 months ago. General health: feels well with minor complaints and has good energy level. The patient's appetite is normal. Nutrition: normal/adequate. Exercis es 3 days per week. Sleeps on average 7 hours per night. Normal bowel and bladder habits. Safety measures include appropriate use of safety belts and home smoke detectors. Current emotional problems inc lude anxiety. screening, colonoscopy (not do anymore with age), screening, mammography (hx. bilateral masectomy) and screening, visual acuity (Dr. Greenfield November 2017).Encounter Diagnosis: Annual Medicare Physical (V70.0), Tobacco use disorder (Renamed from Nondependent tobacco use disorder), BMI 29.0- 29.9,adult, Excessive daytime sleepiness, Coronary artery disease, Paroxysmal a- fib, Personal history of TIA (transient ischemic attack), Postnasal drip, Mild hypertension, Personal history of breast cancer, Psoriasis, Hypercholesterolemia, Aortic valve disorder, Coronary atherosclerosis of bypass graft, Hyperlipidemia, mild, Tinnitus, left, Carotid stenosis, Diabetes mellitus type II, controlled, with no complications (Renamed from Controlled type 2 diabetes mellitus without complication), Anemia, Renal insufficiency, Gastroesophageal reflux disease without esophagitis, Vitamin D insufficiency, Subclavian artery stenosis, right, Stress reaction (Renamed from Acute reaction to stress), Iron deficiency anemia due to chronic blood loss, Chronic nonintractable headache, unspecified headache type, Menopausal state [facility] Lab Order On: 03-Mar-2018 15:20 Encounter Diagnosis: [...] symptoms: f/u f End: 27-Jun-2017 9:43 delilah fabiola. pt states she feels about the [...] patient wood s have durable power of sports attorney and living will. Other providers contributing to the patient's care are radio equipment repairer. Note for Annual Medicare Exam: see all [...] Nutrition: balanced diet and supplemental vitamins. The al dical issues the patient is following up [...] naten t does have durable power of sports attorney and living will. The patient has noticed getting bored and lack of energy (intermittent ). Other providers contributing to the patient's care are radio equipment repairer (Dr. Carroll ), gastrologist (Dr. Smith ) [...] patient does not have durable power of sports attorney or living saulo l. The patient has noticed nothing from the geriatic depression scale. Other providers contributing to the patient's care are radio equipment repairer (Dr. Carroll)., [ADDITIONAL REASON] Follow up for [...] The patient does have durable power of sports attorney (patient need s to have updated since her husbands ) and living will. The patient has noticed nothing from the geriatic depression scale. Other providers contributing to the patient's care are radio equipment repairer (Dr. Sav Carroll ), gastrologist (Dr. Smith [...] 401.1 (Renamed from Hypertension (401.0)), Hypercholesterolemia (272.0), [facility] Office Visit On: [...] Breast Cancer (174.9), Coronary Artery Disease (414.00), [facility] Historical Summary On: [...] or perforation, without mention of obstruction (532.90), [facility] Office Visit On: [...] Carotid stenosis (433.10), Coronary Artery Disease (414.00), [facility] Office Visit On: [...]
--- OUTSIDE RECORDS SUMMARY | 2018-07-13 22:38 | XMS RPT_ITS ---
:1940 Author Organization OHIP Support Name Relationship Address Phone LEMUS, ZAINAB Unavailable [address] + [place] [address] R Unavailable Unavailable Unavailable LEMUS, ZAINAB Unavailable [address] + [place] [address] R Unavailable Unavailable Unavailable LEMUS, ZAINAB Unavailable [address] + [place] [address] R Unavailable Unavailable Unavailable LEMUS, ZAINAB Unavailable [address] + [place] [address] R Unavailable Unavailable Unavailable LEMUS, ZAINAB Unavailable [address] + [place] [address] R Unavailable Unavailable Unavailable LEMUS, ZAINAB Unavailable [address] + [place] [address] R Unavailable Unavailable Unavailable LEMUS, ZAINAB Unavailable [address] + [place] [address] R Unavailable Unavailable Unavailable LEMUS, ZAINAB Unavailable [address] + [place] [address] R Unavailable Unavailable Unavailable LEMUS, ZAINAB Unavailable [address] + [place] [address] R Unavailable Unavailable Unavailable LEMUS, ZAINAB Unavailable [address] + [place] [address] R Unavailable Unavailable Unavailable LEMUS, ZAINAB Unavailable [address] + [place] [address] R Unavailable Unavailable Unavailable LEMUS, ZAINAB Unavailable [address] + [place] [address] R Unavailable Unavailable Unavailable Care Team Providers Name Role Phone Marilu Singletary Attending Unavailable Marilu Singletary Referring Unavailable Bonezzi, Marilu Primary Care Unavailable Bonezzi, Marilu Primary Care Unavailable Maury Negron Attending Unavailable Bonezzi, Marilu Attending Unavailable Bonezzi, Marilu Referring Unavailable Bonezzi, Marilu Primary Care Unavailable Marci Zabala Attending Unavailable Bonezzi, Marilu Referring Unavailable Bonezzi, Marilu Primary Care Unavailable Igor, Patrice Admitting Unavailable White, Ria Attending Unavailable Igor, Patrice Admitting Unavailable Igor, Patrice Attending Unavailable Bonezzi, Marilu Primary Care Unavailable Igor, Patrice Consulting Unavailable Igor, Patrice Admitting Unavailable White, Ria Attending Unavailable Bonezzi, Marilu Primary Care Unavailable White, Ria Consulting Unavailable Bonezzi, Marilu Attending Unavailable Bonezzi, Marilu Referring Unavailable Bonezzi, Marilu Primary Care Unavailable Bonezzi, Marilu Attending Unavailable Bonezzi, Marilu Referring Unavailable Bonezzi, Marilu Primary Care Unavailable Rigoberto Tadeo Attending Unavailable Igor, Patrice Referring Unavailable ZabalaMarci Attending Unavailable Zabala, Marci Referring Unavailable Bonezzi, Marilu Primary Care Unavailable Sung Neves D.O. Attending Unavailable Bonezzi, Marilu Referring Unavailable CELE HAMILTON Referring Unavailable BRITT MCALLISTER Attending Unavailable BRITT MCALLISTER Referring Unavailable Bonezzi Marilu DELGADILLO Attending Unavailable Bonezzi Marilu DELGADILLO Referring Unavailable Bonezzi Marilu DELGADILLO Consulting Unavailable BRITT MCALLISTER Attending Unavailable BRITT MCALLISTER Referring Unavailable BONEZZI, MARILU Primary Care Unavailable PROBLEMS PROBLEMS DATE TYPE CONDITION / CODE ATTENDING STATUS SOURCE 04/11/2018 Unknown N95.9 - Unspecified Bonezzi, Marilu Active [place] menopausal and [facility] perimenopausal Hospital disorder / Repository N95.9(ICD-10) 10/24/2017 Active Unknown / ESVIN, Active [place] UNK(Unknown) [facility] [place] Repository 10/24/2017 Admitting Unknown / ESVIN, Active [place] [facility] diagnosis UNK(Unknown) [facility] Repository 08/31/2017 Active [place] and NA Active [place] stenosis of Clinic Main bilateral carotid [place] arteries / Repository I65.23(ICD-10) 06/24/2017 Unknown R10.11 - Right upper Bonezzi, Marilu Active [place] quadrant pain / Community R10.11(ICD-10) Hospital Repository 07/26/2017 Unknown R07.9 - Chest pain, [place], [place] Active [place] unspecified / Community R07.9(ICD-10) Hospital Repository 06/29/2017 Unknown D64.9 - Anemia, Marilu Singletary Active [place] unspecified / Community D64.9(ICD-10) Hospital Repository 06/22/2017 Unknown R06.02 - Shortness Zabala, Active [place] of breath / Marci Community R06.02(ICD-10) Hospital Repository PROCEDURES PROCEDURES No Procedure Records FoundRESULTS RESULTS DEXA BONE DENSITY Observed: 04/11/2018 Status: F Source: [place] STUDY 12:40 PM [facility] REPOSITORY [facility] Imaging Services [address] [place] [address] Dexa Bone Density Study MR#: [id number] Acct: [id number] Name: IVANNA SWANN Rep #: [id number] : 1940 F 77 From: Manolo Sierra MD PCP: Marilu Singletary MD Status: REG CLI Study: Dexa Bone Density Study Date of Exam: 04/11/18 Exam# [id number] Ordering Dr: Marilu Singletary MD STUDY: DUAL ENERGY X-RAY ABSORPTIOMETRY / DXA REASON FOR EXAM: Female, 77 years old. The patient is postmenopausal. History of breast cancer. Loss of height. TECHNIQUE: Bone Mineral Density (BMD) measurements of lumbar spine and bilateral hips were obtained. COMPARISON: Comparison is made with prior study dated February 24, 2016. FINDINGS: Lumbar Spine (L1-L4): g/cm2 (1.208) / T-score (0.1) / Z-score (1.9) Findings are suggestive of normal bone density with a low fracture risk. Increased thoracic kyphosis. Left Femur Total: g/cm2 (0.966) / T-score (-0.3) / Z- score (1.5) Left Femoral Neck: g/cm2 (0.892) / T-score (-1.1) / Z- score (1.0) Right Femur Total: g/cm2 (0.940) / T-score (-0.5) / Z- score (1.3) Right Femoral Neck: g/cm2 (0.837) / T-score (-1.4) / Z-score (0.6) The T-Scores on the most recent prior examination were: Lumbar Spine (L1-L4): There has been improvement of bone density since the previous examination. Left Femur Total: which represents an improvement of 2.8%. Right Femur Total: which represents an improvement of 0.4%. BD/Dexa Bone Density Study IMPRESSION: The patient is considered osteopenic as outlined below according to World Brandon Organization (WHO) criteria with a low fracture risk. There has been improvement of bone density since the previous examination. Reference Information: The T-score is the number of standard deviations above or below the standard which is normal for young adults at their peak bone mineral density. The World Health Organization (WHO) interprets the T-scores as follows: Above -1 Normal bone density Between -1 and -2.5 Osteopenia Equal to / or below -2.5 Osteoporosis As a practical clinical guideline, osteopenia may be graded as follows: Mild -1 through [...] http://www.nof.org Electronically Signed: Manolo Sierra MD at 14:26 EST Tel [phone], Service support , CC: Marilu Singletary MD Outbound Sales Representative: Signed PROGRESS Observed: 10/24/2017 Status: COMPLETED Source: [place] 5:51 PM [facility] REPOSITORY O ID: [id number] Author: Britt Mcallister Service: (none) Author Type: Physician Type: Progress Notes Filed: 10/24/2017 5:55 PM Note Text: PERTINENT CARDIAC HISTORY ASHD - CABGx2 2013 Aortic stenosis - AVR (bio) 2013 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 Statin therapy for ASHD or FHL or DM - intolerant BMI documented and plan if >25 (NQF 0421) - lifestyle recommendation form Tobacco use screening and referral (NQF 0028) - lifestyle recommendation form Recommendation for whole food, plant based diet - lifestyle recommendation form CLINICAL IMPRESSION/PLAN: Ivanna Swann has stable cardiac issues, as itemized above. She's had no recent angina. She reports blood pressures in the 130/70 range at home. She continues to be statin intolerant. I encouraged her to follow-up with vascular surgery. She would benefit from more intensive drug therapy for her lipid disturbance but cannot tolerate this. She will continue her current medications. I will see her in 8 months, at which time she will have an echocardiogram for follow-up of her LV function and valvular disease. If there is increased chest pain or shortness of breath, she has been advised to contact me. Written and verbal health teaching given to patient, patient verbalizes understanding and agrees with treatment plan. DIAGNOSIS FOR VISIT: ASHD AVR HISTORY OF PRESENT ILLNESS Ivanna Swann returns for follow-up of multiple cardiac issues, as noted above. She's had no recent chest discomfort. She reports stable exercise tolerance. She's had no orthopnea, syncope, TIAs, amaurosis or claudication. She's had minimal edema. She's had no recent palpitations. She is overdue follow-up with vascular surgery. ALLERGIES: ALLERGIES Allergen Reactions - Augmentin [Amoxicil* GI Upset - Crestor [Rosuvastat* - Iodine And Iodide C* Intolerance LOCKJAW - Latex - Lipitor [Atorvastat* Other: See Comments Muscle cramps - Lisinopril Cough - Niaspan [Niacin] Rash, Itching - Penicillins GI Upset Oral pills per patient, pain in abdomen - Sulfa (Sulfonamide * Intolerance TACHYCARDIA - [place] Grease [Othe* Intolerance CURRENT OUTPATIENT MEDICATIONS: furosemide (LASIX) 20 mg tablet Take 10 mg by mouth once daily. NITROSTAT 0.4 mg SL tablet clopidogrel (PLAVIX) 75 mg tablet Take 1 tablet by mouth once daily. metoprolol tartrate, short acting, (LOPRESSOR) 50 mg tablet Take 1.5 tablets by mouth twice daily. aspirin 81 mg chewable tablet Take 2 tablets by mouth once daily. acetaminophen 325 mg tablet Take 2 tablets by mouth every 4 hours as needed for Pain (mild pain). (Do not exceed 4000mg of acetaminophen in 24 hours from all sources). pantoprazole (PROTONIX) 40 mg tablet Take 1 tablet by mouth once daily. calcipotriene (DOVONEX) 0.005 % cream Apply 1 application to affected area as needed (psoriasis). cilostazol (PLETAL) 50 mg tablet Take 50 mg by mouth twice daily. niacin(NIASPAN 500 MG TAB) take 2 in the morning and 2 at night ezetimibe(ZETIA 10 MG TAB) Take one(1) tablet daily. FLUoxetine (PROZAC) 10 mg capsule triamterene-hydrochlorothiazide 37.5-25 mg per capsule Take 1 capsule by mouth once daily. PHYSICAL EXAMINATION: VITAL SIGNS: BP 132/70 Pulse 76 Wt 166 lb 1.6 oz (75.3kg) Chest: Clear to percussion and auscultation. Trachea is midline. Air entry is equal. Cardiac: Regular rhythm. S1 and S2 are normal. PMI is nondisplaced. There is a soft systolic ejection murmur. Carotids are brisk With soft bilateral bruits. JVP is less than 10 cm. Abdomen: Soft and nontender. There are no pulsatile masses or bruits. No liver enlargement. Bowel sounds are active. Extremities: No edema. Pulses are diminished but symmetrical. EKG shows sinus rhythm and is unchanged from 06/17/15. There is a septal Q wave. Recent labs were reviewed. Calculated LDL was 111. There is moderate renal insufficiency. Electronically Signed: Britt Mcallister MD October 24, 2017 5:51 PM CC: Marilu Singletary MD CNOV Observed: 10/24/2017 Status: COMPLETED Source: [place] 1:00 PM [facility] REPOSITORY Office Visit (CAWSTR) IVANNA SWANN ([id number]) 1940 F Date Time Provider Department 10/24/17 1:00 PM BRITT MCALLISTER [facility]WSTR During your visit today, we recorded the following information about you: Pulse Blood pressure Weight 76/minute 132/70 75.3 kg Britt Mcallister MD 10/24/2017 1:32 PM Signed LIFESTYLE CHANGE A healthy lifestyle is the most important component of your overall treatment plan. Please give serious thought to the following areas and commit to making watermelon inspector changes. EAT A WHOLE FOOD, PLANT BASED DIET The nutrition your body gets is more important than the medicine you take. What matters most is the overall way you eat. We encourage you to minimize the use of animal products (which include dairy and all meats except fatty fish) and use whole, unprocessed plant foods to provide your protein, vitamins and other nutrients. We have a lot of information to share with you on this topic. This is not a diet. It is a way of life that you will keep with you. EXERCISE REGULARLY It is not important to spend hours in the gym, lifting weights and perspiring heavily. A total of 2-3 hours per week of aerobic (causing you to be moderately short of breath) exercise is sufficient to improve your health. Talk to us before you begin a new exercise program, if you have heart disease or experience shortness of breath or chest pain. REDUCE STRESS Chronic emotional and physical stress leads to disease. Ways of reducing stress include meditation, visualization, prayer, yoga and other forms of relaxation therapy. Consistency is the valentin. Find a technique that works for you and do it every day. CULTIVATE RELATIONSHIPS Loneliness and isolation have a major negative impact on health. Seek out others who can love, care for and nurture you. Avoid hurtful relationships. MAINTAIN IDEAL BODY WEIGHT The best way to do this is to do all the things above. Our bodies naturally find the right weight if we keep moving and feed ourselves the right food. If your BMI is greater than 25, we strongly recommend a referral to a weight management program. Please speak to us or your family physician about available programs. AVOID NICOTINE IN ALL FORMS This includes all tobacco products, whether chewed, smoked, vaped, or rubbed on the skin. Smoking cessation programs, which can make use of tobacco substitutes, medications to suppress cravings and behavior management, are available. Please contact your family physician about programs in your area. 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 Statin therapy for ASHD or FHL or DM - intolerant BMI documented and plan if >25 (NQF 0421) - lifestyle recommendation form Tobacco use screening and referral (NQF 0028) - lifestyle recommendation form Recommendation for whole food, plant based diet - lifestyle recommendation form CLINICAL IMPRESSION/PLAN: Ivanna Swann has stable cardiac issues, as itemized above. She's had no recent angina. She reports blood pressures in the 130/70 range at home. She continues to be statin intolerant. I encouraged her to follow-up with vascular surgery. She would benefit from more intensive drug therapy for her lipid disturbance but cannot tolerate this. She will continue her current medications. I will see her in 8 months, at which time she will have an echocardiogram for follow-up of her LV function and valvular disease. If there is increased chest pain or shortness of breath, she has been advised to contact me. Written and verbal health teaching given to patient, patient verbalizes understanding and agrees with treatment plan. DIAGNOSIS FOR VISIT: ASHD AVR HISTORY OF PRESENT ILLNESS Ivanna Swann returns for follow-up of multiple cardiac issues, as noted above. She's had no recent chest discomfort. She reports stable exercise tolerance. She's had no orthopnea, syncope, TIAs, amaurosis or claudication. She's had minimal edema. She's had no recent palpitations. She is overdue follow-up with vascular surgery. ALLERGIES: ALLERGIES Allergen Reactions - Augmentin [Amoxicil* GI Upset - Crestor [Rosuvastat* - Iodine And Iodide C* Intolerance LOCKJAW - Latex - Lipitor [Atorvastat* Other: See Comments Muscle cramps - Lisinopril Cough - Niaspan [Niacin] Rash, Itching - Penicillins GI Upset Oral pills per patient, pain in abdomen - Sulfa (Sulfonamide * Intolerance TACHYCARDIA - [place] Grease [Othe* Intolerance CURRENT OUTPATIENT MEDICATIONS: furosemide (LASIX) 20 mg tablet Take 10 mg by mouth once daily. NITROSTAT 0.4 mg SL tablet clopidogrel (PLAVIX) 75 mg tablet Take 1 tablet by mouth once daily. metoprolol tartrate, short acting, (LOPRESSOR) 50 mg tablet Take 1.5 tablets by mouth twice daily. aspirin 81 mg chewable tablet Take 2 tablets by mouth once daily. acetaminophen 325 mg tablet Take 2 tablets by mouth every 4 hours as needed for Pain (mild pain). (Do not exceed 4000mg of acetaminophen in 24 hours from all sources). pantoprazole (PROTONIX) 40 mg tablet Take 1 tablet by mouth once daily. calcipotriene (DOVONEX) 0.005 % cream Apply 1 application to affected area as needed (psoriasis). cilostazol (PLETAL) 50 mg tablet Take 50 mg by mouth twice daily. niacin(NIASPAN 500 MG TAB) take 2 in the morning and 2 at night ezetimibe(ZETIA 10 MG TAB) Take one(1) tablet daily. FLUoxetine (PROZAC) 10 mg capsule triamterene-hydrochlorothiazide 37.5-25 mg per capsule Take 1 capsule by mouth once daily. PHYSICAL EXAMINATION: VITAL SIGNS: BP 132/70 Pulse 76 Wt 166 lb 1.6 oz (75.3kg) Chest: Clear to percussion and auscultation. Trachea is midline. Air entry is equal. Cardiac: Regular rhythm. S1 and S2 are normal. PMI is nondisplaced. There is a soft systolic ejection murmur. Carotids are brisk With soft bilateral bruits. JVP is less than 10 cm. Abdomen: Soft and nontender. There are no pulsatile masses or bruits. No liver enlargement. Bowel sounds are active. Extremities: No edema. Pulses are diminished but symmetrical. EKG shows sinus rhythm and is unchanged from 06/17/15. There is a septal Q wave. Recent labs were reviewed. Calculated LDL was 111. There is moderate renal insufficiency. Electronically Signed: Britt Mcallister MD October 24, 2017 5:51 PM CC: Marilu Singletary MD Referring Provider: BRITT MCALLISTER [[id number]] Allergies As of Date: 10/24/2017 Noted Allergy Reaction AUGMENTIN (AMOXICILLIN-POT CLAVUL*09/04/2015 8 - GI Upset CRESTOR (ROSUVASTATIN CALCIUM) 08/10/2005 IODINE AND IODIDE CONTAINING PROD*05/17/2003 5 - Intolerance Comments: LOCKJAW LATEX 06/19/2008 LIPITOR (ATORVASTATIN) 11/03/2004 14 - Other: See Comments Comments: Muscle cramps LISINOPRIL 02/17/2016 3 - Cough NIASPAN (NIACIN) 09/01/2013 2 - Rash 9 - Itching PENICILLINS 12/12/2014 8 - GI Upset Comments: Oral pills per patient, pain in abdomen SULFA (SULFONAMIDE ANTIBIOTICS) 05/17/2003 5 - Intolerance Comments: TACHYCARDIA turkey grease [Other] 06/19/2008 5 - Intolerance Date Reviewed: 10/24/2017 Reviewed by: Jacob Gomez RN - Fully Assessed Reason for Visit: Recheck [92] Primary Visit Diagnosis:ASHD (arteriosclerotic heart disease) [I25.10] Other Visit Diagnosis:S/P AVR [Z95.2] Order(s):ECG COMPLETE W INTERPRETATION [ECG01] Order #: [id number] FUTURE ECHO [837651] Order #: [id number]: 1 FUTURE Prescriptions as of 10/24/2017 Sig: FUROSEMIDE 20 MG TABLET Take 10 mg by mouth once jeffery* NITROSTAT 0.4 MG SUBLINGUAL T* CLOPIDOGREL 75 MG TABLET Take 1 tablet by mouth once d* METOPROLOL TARTRATE 50 MG TAB* Take 1.5 tablets by mouth twi* ASPIRIN 81 MG CHEWABLE TABLET Take 2 tablets by mouth once * Patient taking differently: Take 81 mg by mouth once jeffery* ACETAMINOPHEN 325 MG TABLET Take 2 tablets by mouth every* PANTOPRAZOLE 40 MG TABLET,DEL* Take 1 tablet by mouth once d* CALCIPOTRIENE 0.005 % TOPICAL* Apply 1 application to affect* CILOSTAZOL 50 MG TABLET Take 50 mg by mouth twice milagros* * NIASPAN 500 MG TABLET,EXTENDE* take 2 in the morning and 2 a* * ZETIA 10 MG TABLET Take one(1) tablet daily. FLUOXETINE 10 MG CAPSULE TRIAMTERENE 37.5 MG-HYDROCHLO* Take 1 capsule by mouth once * Patient not taking: Reported on 10/24/2017 Medication notes this encounter FLUOXETINE 10 MG CAPSULE >> Jacob Gomez RN 10/24/2017 1:10 PM >> JACOB GOMEZ RN Mon Oct 24, 2017 1:10 PM Problem List As Of Date 10/24/2017 Noted Resolved ENLARGEMENT LYMPH NODES [R59.9] INVALID FOR* TOBACCO USE DISORDER [F17.200] INVALID FOR* ASA CLASS III [1003] INVALID FOR* Mixed hyperlipidemia [E78.2] Priority: B More... HYPERTENSION NOS [I10] More... CORONARY ATHEROSCLER UNSPEC VESSEL [I25.10] More... PERIPH VASCULAR DIS NOS [I73.9] More... 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 SUMMARY [V999.95] INVALID FOR* Priority: Mild More... CAD: 09/06/2013 CABG x 2 [I25.10] INVALID FOR* Priority: A More... Lightheadedness [R42] INVALID FOR* Priority: D More... Aortic stenosis: 09/06/2013 AVR [I35.0] INVALID FOR* Priority: A More... Carotid artery stenosis [I65.29] INVALID FOR* Priority: D More... DVT prophylaxis [[id number]] INVALID FOR* Priority: H More... Atrial fibrillation: 09/06/2013 PVI, EARL clip [I*INVALID FOR* Priority: A More... More... Mechanically assisted ventilation (HCC) [Z99.11]INVALID FOR*09/07/2013 Priority: B More... Tobacco abuse [Z72.0] INVALID FOR* Priority: G More... More... Stress hyperglycemia [R73.9] INVALID FOR*09/11/2013 Priority: E More... Cardiac insufficiency following cardiac surgery*INVALID FOR*09/10/2013 Priority: C More... Hypertension [I10] INVALID FOR* Priority: B More... Hyperkalemia [E87.5] INVALID FOR*09/11/2013 Priority: F More... Pericardial rub [R01.2] INVALID FOR*09/11/2013 Priority: E Iron deficiency [E61.1] INVALID FOR* Priority: E More... post op Anemia [D64.9] INVALID FOR* Priority: E More... Pericardial rub [R01.2] INVALID FOR* Priority: B More... Pleural effusion [J90] INVALID FOR* Priority: C More... S/P CABG (coronary artery bypass graft) [Z95.1] INVALID FOR* Palpitation [R00.2] INVALID FOR* Vertigo [R42] INVALID FOR* Carotid stenosis [I65.29] INVALID FOR* Other instructions from your clinician: LIFESTYLE CHANGE A healthy lifestyle is the most important component of your overall treatment plan. Please give serious thought to the following areas and commit to making watermelon inspector changes. EAT A WHOLE FOOD, PLANT BASED DIET The nutrition your body gets is more important than the medicine you take. What matters most is the overall way you eat. We encourage you to minimize the use of animal products (which include dairy and all meats except fatty fish) and use whole, unprocessed plant foods to provide your protein, vitamins and other nutrients. We have a lot of information to share with you on this topic. This is not a diet. It is a way of life that you will keep with you. EXERCISE REGULARLY It is not important to spend hours in the gym, lifting weights and perspiring heavily. A total of 2-3 hours per week of aerobic (causing you to be moderately short of breath) exercise is sufficient to improve your health. Talk to us before you begin a new exercise program, if you have heart disease or experience shortness of breath or chest pain. REDUCE STRESS Chronic emotional and physical stress leads to disease. Ways of reducing stress include meditation, visualization, prayer, yoga and other forms of relaxation therapy. Consistency is the valentin. Find a technique that works for you and do it every day. CULTIVATE RELATIONSHIPS Loneliness and isolation have a major negative impact on health. Seek out others who can love, care for and nurture you. Avoid hurtful relationships. MAINTAIN IDEAL BODY WEIGHT The best way to do this is to do all the things above. Our bodies naturally find the right weight if we keep moving and feed ourselves the right food. If your BMI is greater than 25, we strongly recommend a referral to a weight management program. Please speak to us or your family physician about available programs. AVOID NICOTINE IN ALL FORMS This includes all tobacco products, whether chewed, smoked, vaped, or rubbed on the skin. Smoking cessation programs, which can make use of tobacco substitutes, medications to suppress cravings and behavior management, are available. Please contact your family physician about programs in your area. Encounter Status:Closed by BRITT MCALLISTER MD on 10/24/17 12 LEAD ELECTROCARDIOGRAM Observed: 06/29/2017 Status: F Source: [place] 1:19 PM [facility] REPOSITORY [facility] [facility] [address] [place] [address] 12 Lead EKG 06/23/17 0609 MR#: [id number] Acct: [id number] Name: IVANNA SWANN Rep #: [id number] : 1940 76 From: Rigoberto Tadeo MD Attending Dr: Ria Leong Status: DIS NESTOR Ordering Dr: Patrice Costa MD Date: 06/23/17 Location: U Sex: F C Admitted: 06/22/17 Test Reason : EM AKG Blood Pressure : / mmHG Vent. Rate : 077 BPM Atrial Rate : 077 BPM P-R Int : 152 ms QRS Dur : 092 ms QT Int : 386 ms P-R-T Axes : 067 018 097 degrees QTc Int : 436 ms Normal sinus rhythm Septal infarct , age undetermined Abnormal ECG When compared with ECG of 22-JUN-2017 20:22, MANUAL COMPARISON REQUIRED, DATA IS UNCONFIRMED Confirmed by RIGOBERTO TADEO MD ([id number]), mapping editor FABIEN COVARRUBIAS ([id number]) on 06/29/2017 1:18:59 PM Referred By: Confirmed By:RIGOBERTO TADEO MD 06/29/17 1319 Date Rigoberto Tadeo MD CC: Marilu Singletary MD; Patrice Costa MD Signed 12 LEAD ELECTROCARDIOGRAM Observed: 06/28/2017 Status: F Source: [place] 2:02 PM [facility] REPOSITORY [facility] Cardiovascular Services [address] [place] [address] [place] [address] 12 Lead EKG 06/22/172021 MR#: [id number] Acct: [id number] Name: IVANNA SWANN Rep #: [id number] : 1940 76 From: Rigoberto Tadeo MD Attending Dr: Ria Leong Status: DIS NESTOR Ordering Dr: Rodrigo Finley MD Date: 06/22/17 Location: [facility] Sex: F C Admitted: 06/22/17 Test Reason : CP Blood Pressure : / mmHG Vent. Rate : 076 BPM Atrial Rate : 076 BPM P-R Int : 164 ms QRS Dur : 094 ms QT Int : 400 ms P-R-T Axes : 068 035 088 degrees QTc Int : 450 ms Normal sinus rhythm Septal infarct , age undetermined Abnormal ECG Confirmed by RIGOBERTO TADEO MD ([id number]), mapping editor FABIEN COVARRUBIAS ([id number]) on 06/28/2017 2:02:19 PM Referred By: Marilu Singletary Confirmed By:RIGOBERTO TADEO MD 06/28/17 1402 Date Rigoberto Tadeo MD CC: Marilu Singletary MD; Rodrigo Finley MD Signed PULMONARY VISIT REPORT Observed: 06/27/2017 Status: F Source: [place] 3:53 PM [facility] REPOSITORY [facility] [address] [place] [address] OFFICE VISIT Date of Service: 06/22/17 MR#: [id number] Acct: [id number] Name: IVANNA SWANN Rep #: [id number] : 1940 Provider: Marci Zabala Age/Sex: 76/F Location[place] [facility] Status: Signed Assessment AND Plan 1. SOB (shortness of breath) on exertion R06.02 Status Chronic Plan Likely related to undiagnosed COPD. Plan to complete pulmonary function test as well as formal stress test prior to a 3 month follow-up with Dr. Neves. Patient is agreeable. No inhalers at this time, await pulmonary function test to determine if inhalers are appropriate. Orders Orders: 2. Tobacco abuse Z72.0 Status Chronic Plan 9 minute discussion on the continued deleterious effects of ongoing smoking. Discussed the nicotine addiction as well as the psychological addiction to cigarettes. Patient plans to quit cold turkey at this time. Continue to encourage smoking cessation. Plan Detail Follow Up 3 Months (DMB) HPI 3 M FU: Chief Complaint: cough HPI Comments Details: This patient presents to the office today for routine follow-up on her shortness of breath. She is ambulatory and currently on room air. She has not been seen in the ED urgent care since her last office visit for any respiratory illnesses. She has not required treatment with antibiotics or steroids. She is not currently on any inhalers. She did not receive the Flonase that was prescribed at her last office visit. She continues to have a cough that is productive of thick yellow sputum. She also has an occasional sore throat secondary to frequent coughing. She reports experiencing chest tightness and chest congestion. She has not tried any bhxy-ndl-epvqyfy medications for these symptoms. She notices that her cough is more frequent at night, after eating cold foods such as ice cream, and occasionally it is present in the morning. She admits that she continues to smoke 3-5 cigarettes per day. At the last office visit she was recommended to have a sleep study, it was scheduled but she did not follow through. She reports that she does not have any sleep problems and does not need a sleep study. She reports that she sleeps well at night, [...] as well as ER physicians regarding these hives. She has an appointment with an underground truck operator next week. It Is unclear of the etiology of the hives. Intake Vital Signs06/22/17 Height 5 ft 5 in 06/22/17 Weight: 164 lb Intake Visit Reasons: 3 M FU Stick Feeder Required: No Accompanied by: Self Is patient in pain?: No Allergies Sulfa (Sulfonamide Antibiotics) Allergy (Severe, Verified 06/22/17 12:50) HEART RACING Latex, Natural Rubber Allergy (Verified 06/22/17 12:50) Rash amoxicillin [From Augmentin] Adverse Reaction (Verified 06/22/17 14:25) Nausea atorvastatin [From Lipitor] Adverse Reaction (Verified 06/22/17 14:25) Other clavulanic acid [From Augmentin] Adverse Reaction (Verified 06/22/17 14:25) Nausea Iodinated Contrast- Oral and IV Dye [CONTRASTS] Adverse Reaction (Verified 06/22/17 12:50) Other niacin [From Niaspan Extended-Release] Adverse Reaction (Verified 06/22/17 14:25) Other rosuvastatin [From Crestor] Adverse Reaction (Verified 06/22/17 14:25) Other turkey grease Adverse Reaction (Uncoded 06/22/17 12:50) Rash Medications Cilostazol [Pletal] 50 mg PO BIDAC 09/01/13 [History Confirmed 06/22/17] Clopidogrel Bisulfate [Plavix] 75 mg PO DAILY 09/01/13 [History Confirmed 06/22/17] Ezetimibe [Zetia] 10 mg PO DAILY 09/01/13 [History Confirmed 06/22/17] Metoprolol Tartrate [Lopressor (Beta Johnathon)] 75 mg PO BID 09/01/13 [History Confirmed 06/22/17] Nitroglycerin [Nitrostat] 0.4 mg SUBLINGUAL Q5M PRN 09/01/13 [History Confirmed 06/22/17] Pantoprazole Sodium [Protonix] 40 mg PO DAILY 09/01/13 [History Confirmed 06/22/17] Triamterene 37.5MG/Hctz 25MG [Maxzide 37.5 mg-25 mg Tablet] 1 tab PO DAILY 09/01/13 [History Confirmed 06/22/17] Aspirin E.C. [Ecotrin] 1 tab PO DAILY 01/24/16 [History Confirmed 06/22/17] Acetaminophen [Tylenol] 325 mg PO PRN PRN 03/08/16 [History Confirmed 06/22/17] Niacin (Inositol Niacinate) [Niacin Flush Free 500 mg Cap] 1,000 mg PO BID 03/08/16 [History Confirmed 06/22/17] Prednisone 10 mg PO DAILY 06/22/17 [History Confirmed 06/22/17] [facility] Medical History GERD (gastroesophageal reflux disease) (Chronic) HTN (hypertension) (Chronic) Psoriasis (Chronic) Carotid stenosis (Chronic) Paroxysmal A-fib (Chronic) Hypercholesterolemia (Chronic) CAD (coronary artery disease) (Chronic) Effusion, left knee (Chronic) Osteoarthritis (Chronic) Sleep disorder (Chronic) Tobacco abuse (Chronic) PND (post-nasal drip) (Chronic) DENVER (obstructive sleep apnea) (Chronic) Surgical History History of mastectomy (Resolved) Family History Mother Heart disease Cancer Father Heart disease Cancer Sister Cancer Social History Smoking Status: Current some day smoker second hand exposure: Yes alcohol intake: never substance use type: does not use caffeine: Yes what type of physical activity do you participate in: none Review of Systems Const CONSTITUTIONAL: Positive fatigue and headache(s); negative anorexia, body ache, chills, daytime sleepiness, fever(s), night sweats, oral thrush, stops breathing during sleep, weight loss, sleeping in chair, weight loss, weight gain, frequent colds, seasonal allergies, other or orthopnea EETM Ear Nose Throat Mouth: Positive hearing normal, hoarseness, dry mouth in morning and headache(s); negative hard of hearing, change in vision, itchy eyes, eye pain, swallowing Difficulty, ear pain, nose bleed, mouth pain, nasal congestion, nasal discharge, post nasal drip, sinus pain, sinus pressure, sore throat or other Cardio Cardiovascular: Positive edema; negative chest pain, chest pain at rest, chest pain with activity, irregular heart rhythm, shortness of breath when lying down, palpitations, murmur or other Resp Respiratory: Positive as per HPI and chest tightness; negative shortness of breath, pain with cough, wheezing, chest congestion, cough, pain on inspiration, inhalers, increase use of rescue inhalers, snoring, apnea or other Gastro Gastrointestional: Negative bloody stools, change in appetite, difficulty [...] thoughts of hurting self/others, hopelessness or other Lymph Lymphatic: Negative easy bleeding, easy bruising, swollen lymph nodes or other Exam Const Constitutional: Positive conversant, cooperative, in no acute respiratory distress, healthy appearing, well developed, well nourished and good hygiene Head Head: Positive normocephalic and atraumatic; negative cyanosis of lips/distal nose Eyes Eye: Positive clear conjunctiva and nystagmus; negative scleral abnormality Ears Ear: Positive hearing normal and external [...] wheezes, rhonchi, rales, dullness to percussion or wheeze present on forced exhalation Cardio Cardiac: Positive regular rate, regular rhythm, S1 normal and S2 normal; negative murmur GI GI: Positive normal to inspection and normal bowel sounds; negative distended Genitourinary: Positive deferred Musc Musculoskeletal: Positive steady gait and ROM normal; negative kyphosis or scoliosis Skin Pulmonary Skin Exam: Positive intact; negative rash, lesion, ulcers, erythema, scaly or dermal atrophy Pulses Pulse: Yes pulses normal x4 extremities Extremities Extremities: Yes capillary refill normal, No clubbing, No cyanosis, No edema, No stasis dermatitis Neuro Neurologic: Yes conversant, Yes no focal neuro deficits, Yes cooperative, Yes normal cognition, Yes normal coordination, Yes normal concentration, Yes understands questions Lymph Lymphatic: No lymphadenopathy, No tenderness, No cervical adenopathy, No axillary adenopathy Psych Appearance: Positive grossly normal, eye contact and well kempt Mental Status: Positive mental status grossly normal Mood: Positive congruent mood Affect: Positive normal affect Office Procedures Smoking Cessation Time Spent 3-10 minutes: Yes Coding Level of Care Code Off vis,est,level 3 Diagnoses SOB (shortness of breath) on exertion R06.02 Tobacco abuse Z72.0 Additional Codes Time Spent - 3-10 minutes: Yes ([id number]) 06/27/17 1553 <Electronically signed by Marci ANAYA> Date Marci ANAYA Cosigner Signature: Date (if applicable) CC: ABDOMEN/PELVIS WITHOUT Observed: 06/27/2017 Status: F Source: [place] CONT 10:18 AM [facility] REPOSITORY [facility] Imaging Services [address] [place] [address] Abdomen/Pelvis without Cont MR#: [id number] Acct: [id number] Name: IVANNA SWANN Rep #: [id number] : 1940 F 76 From: Manolo Sierra MD PCP: Marilu Singletary MD Status: REG CLI Study: Abdomen/Pelvis without Cont Date of Exam: 06/27/17 Exam# [id number] Ordering Dr: Marilu Singletary MD STUDY: CT ABDOMEN AND PELVIS WITHOUT [...] oral contrast, and without intravenous contrast. Sagittal and coronal images were reconstructed. Individualized dose optimization techniques were used for this CT. COMPARISON: None. FINDINGS: The visualized lung bases are unremarkable. Coronary artery calcification. Prior CABG. Normal liver. Normal gallbladder and extrahepatic biliary system. Normal spleen. Normal pancreas. Normal bilateral adrenal glands. Normal right kidney. Normal left kidney. Normal visualized stomach. Normal small intestine. There are multiple colonic diverticula consistent with diverticulosis. The appendix is visualized and appears normal. There is diffuse atherosclerotic calcification of the abdominal aorta and its major visceral branches, without a demonstrated aneurysm. Normal inferior vena cava. Normal retroperitoneum. Normal urinary bladder. There is a small umbilical hernia containing fat. Small right inguinal hernia containing fat. Normal osseous structures. CT/Abdomen/Pelvis without Cont IMPRESSION: Sigmoid diverticulosis. Electronically Signed: Manolo Sierra MD at 11:15 EST Tel [phone], Service support , CC: Marilu Singletary MD Outbound Sales Representative: Signed EMERGENCY DEPARTMENT Observed: 06/24/2017 Status: F Source: [place] SUMMARY 2:49 PM [facility] REPOSITORY [facility] Medical Records Department [address] [place] [address] Emergency Department Summary 06/22/17 2253 MR#: [id number] Acct: [id number] Name: IVANNA SWANN Rep #: [id number] : 1940 76 From: Rodrigo Finley MD PCP: Marilu Singletary MD Status: DIS NESTOR - ER Visit Summary Date of Service: 06/22/17 Chief Complaint: Chest pain History of Present Illness: The patient is a [address] Espinoza, Dr. Singletary, and Dr. Neves. She reports is 645 this evening while feeding the cat she had an onset of a substernal pressure and tightness. This radiates up into her neck. Made her very nauseated, diaphoretic, and lightheaded. She reports pain is 5 out of 10 severity at worst and currently. However, she reports that it is worse if she walks around. It is relieved by rest. States that she took nitroglycerin and to decrease the sweating associated with this. Physical Examination: Vitals: Stable. Afebrile. General: Well-nourished and well-developed. Head: Normocephalic atraumatic. Neck: Supple, no lymphadenopathy. No JVD. Nontender. Cardiovascular: Regular rate and rhythm. No murmurs. Respiratory: No respiratory distress. Clear to auscultation bilaterally. Abdominal: Soft, nontender, nondistended, normal bowel sounds. No guarding, rebound, or peritoneal signs. Back: Nontender. Extremities: Nontender, no edema. Skin: Normal color, no rash. Neurologic: Alert and oriented 3. Cranial nerves II through XII are intact. Normal strength and sensation. Psych: Normal affect. Test Results: EKG is sinus at [address] changes. It actually looks better than her last EKG in 2016. CBC is more for white count of 12.4, H AND H of 9.8 and 32.7. Chem-7 is more for BUN of 19, creatinine 1.26, calcium 8.3. Troponin is negative. Chest x-ray shows cardiomegaly and no acute disease. Emergency Department Course and Treatment: She was treated with aspirin. She refused any further nitro or pain medications. She is resting comfortably. Treatment Plan: The patient was discussed with Dr. Costa. She will be admitted to the hospital for further wish and treatment. Disposition: Admitted in improved condition. Impression: 1. Chest pain. 2. AVA score 4. This note was generated with [employer] dictation software. It may contain incorrect words, spelling, and punctuation that were not noted in review of the chart prior to signing ED Disposition - Plan for ED Patient: Chief Complaint: Chest Pain What to do if you have Problems For any increased pain, shortness of breath, bleeding, nausea or vomiting, chest pain, or any unexpected problems, contact your Primary Care Provider. Call [facility] ([phone]) or report to the closest Emergency Room. Call 911 if necessary. 06/24/17 1449 <Electronically signed by Rodrigo Finley MD> Date Rodrigo Finley MD Cosigner Signature (If Indicated): Date CC: Marilu Singletary MD COMPREHENSIVE METABOLIC Collected: 06/24/2017 Status: F Source: [place] OLIVEROS 12:23 PM [facility] REPOSITORY Order Comment: Order Date: 06/24/17 Order Info: [id number] - CMP Order Info: [id number] - YARON Comments: stat all labs. Order Info: 3040-3 - LIPASE TYPE CODE TESTS RESULT OUT OF RANGE REFERENCE UNITS LAB L501.0100 74-106 mg/dL High GLU 113 Result Comment: Fasting Glucose result from 100 to 125 mg/dL suggests IMPAIRED HOMEOSTASIS per A.D.A. criteria. Please note revised GLUCOSE reference range effective 2017. LAB L501.1000 7-18 mg/dL Normal BUN 18 LAB L501.1100 0.55-1.02 mg/dL Normal CREAT,SERUM 0.99 Result Comment: The validity of the calculated GFR AND GFRAA in patients over 70 years has not been determined. Clinical correlation is essential. LAB L501.1110 >60 mL/min Low EST GFR 58 Result Comment: Non- GFR Calc LAB L501.1115 >60 mL/min Normal EST GFR - AA 70 Result Comment: GFR Calc LAB L501.1300 10-20 RATIO Normal BUN/CRE 18.1 LAB L501.1500 6.4-8.2 g/dL Low T PROT 5.9 LAB L501.1800 3.2-5.0 g/dL Low ALB 3.1 LAB L501.1950 2.2-4.2 g/dL Normal GLOB 2.8 LAB L501.2000 0.9-2.4 RATIO Normal A/G 1.1 LAB L501.2200 8.5-10.1 mg/dL Low CA 7.7 LAB L501.4100 15-37 U/L Normal AST 17 LAB L501.4305 45-117 U/L Normal ALK P 71 LAB L501.4405 13-56 U/L Normal ALT 17 Result Comment: Please note revised ALT reference range effective 2017. LAB L501.4600 0.20-1.00 mg/dL Normal T BILI 0.50 LAB L501.5300 136-145 mmol/L Normal NA 141 LAB L501.5600 3.5-5.1 mmol/L Normal K 4.6 LAB L501.5900 98-107 mmol/L Normal CL 105 LAB L501.6100 21.0-32.0 mmol/L Normal CO2 29.0 LAB L501.6200 5-15 Normal GAP 7 Performed By: #### L500.4050, L501.2400, L501.2450, L100.0100, L101.9900 #### [facility] [address] [facility] [address] [place], [place], [address] AMYLASE Collected: 06/24/2017 Status: F Source: [place] 12:23 PM [facility] REPOSITORY Order Comment: Order Date: 06/24/17 Order Info: [id number] - CMP Order Info: [id number] - YARON Comments: stat all labs. Order Info: 3040-3 - LIPASE TYPE CODE TESTS RESULT OUT OF RANGE REFERENCE UNITS LAB L501.2400 25-115 U/L Normal YARON 35 Performed By: #### L500.4050, L501.2400, L501.2450, L100.0100, L101.9900 #### [facility] [address] [place], [place], [address] LIPASE Collected: 06/24/2017 Status: F Source: [place] 12:23 PM [facility] REPOSITORY Order Comment: Order Date: 06/24/17 Order Info: [id number] - CMP Order Info: [id number] - YARON Comments: stat all labs. Order Info: 3040-3 - LIPASE TYPE CODE TESTS RESULT OUT OF RANGE REFERENCE UNITS LAB L501.2450 73-393 U/L Normal LIPASE 151 Performed By: #### L500.4050, L501.2400, L501.2450, L100.0100, L101.9900 #### [facility] [address] [place], [address] CBC W/DIFF, AUTOMATED Collected: 06/24/2017 Status: F Source: [place] 12:23 PM [facility] REPOSITORY Order Comment: Order Date: 06/24/17 Order Info: [id number] - CBCD Order Info: [id number] - SED TYPE CODE TESTS RESULT OUT OF RANGE REFERENCE UNITS LAB L100.1000 4.4-11.0 K/mm3 Normal WBC 10.0 LAB L100.1200 4.2-5.4 M/mm3 Low RBC 3.82 LAB L100.1300 12.0-15.0 g/dl Low HGB 9.1 LAB L100.1400 37-47 % Low HCT 31.0 LAB L100.1500 81-99 fL Normal MCV 81.2 LAB L100.1600 27.0-32.0 pg Low MCH 23.8 LAB L100.1700 32-36 g/gl Low MCHC 29.4 LAB L100.1810 11.6-14.6 % High RDW CV 16.5 LAB L100.1820 35.1-43.9 fl High RDW SD 47.2 LAB L100.1900 150-450 K/mm3 Normal PLT 357 LAB L100.2000 6.2-12.0 fl Normal MPV 9.3 LAB L100.2100 47-70 % High NEUT% 74.5 LAB L100.2200 19-41 % Low LY% 14.8 LAB L100.2300 0-10 % Normal MONO% 8.1 LAB L100.2400 0-5 % Normal EO% 1.6 LAB L100.2500 0-1 % Normal BASO% 0.3 LAB L100.2550 0.0-0.9 % Normal IM GRAN % 0.700 Result Comment: IG% - Immature Granulocytes (promyelocytes, myelocytes and metamyelocytes) > 1% indicates that a LEFT SHIFT is Present. LAB L100.2620 2.0-7.7 X10 3/uL Normal Absolute Neut 7.5 LAB L100.2720 0.83-4.51 X10 3/ul Normal Absolute Lymph 1.48 Performed By: #### L500.4050, L501.2400, L501.2450, L100.0100, L101.9900 #### [facility] [address] [facility] [place], [address] ERYTHROCYTE SED RATE Collected: 06/24/2017 Status: F Source: [place] 12:23 PM [facility] REPOSITORY Order Comment: Order Date: 06/24/17 Order Info: [id number] - CBCD Order Info: [id number] - SED TYPE CODE TESTS RESULT OUT OF RANGE REFERENCE UNITS LAB L102.0000 0-30 mm/hr Normal SED RATE 13 Performed By: #### L500.4050, L501.2400, L501.2450, L100.0100, L101.9900 #### [facility] [address] [place], [address] DISCHARGE SUMMARY Observed: 06/23/2017 Status: F Source: [place] 2:14 PM [facility] REPOSITORY [facility] Medical Records Department [address] [place] [address] Discharge Summary 06/23/17 1109 MR#: [id number] Acct: [id number] Name: IVANNA SWANN Rep #: [id number] : 1940 76 From: Yolanda Patel ELECTION WATCHER-C PCP: Marilu Singletary MD Status: ADM NESTOR Y Location: [place] [address] ADDENDUM by Ria Leong on 06/23/17 at 1414 Code Visit ATTENDING PHYSICIAN DISCHARGE NOTE: I have seen and examined the patient independently and agree with the assessment, plan, history per Yolanda Patel as noted. Discharge Diagnoses: Chest Pain, Atypical, ACS ruled out, Non-cardiac, possible musculoskeletal etiology CAD s/p CABG x 2 Bioprosthetic aortic valve replacement Carotid Stenosis HTN HLD GERD PAF DENVER Tobacco use COPD Anxiety Hx Breast CA Recent Hives secondary to ? ARB/ACEI Discharge Summary: The patient is a 76 y/o F w/ PMHx: CAD, Carotid Disease, HTN, HLD, Chronic COPD, Continued Tobacco use, Anxiety, Hx Breast CA, PAF, Valvular Heart Disease s/p AVR, DENVER, recent hives onset 1.5 weeks prior felt likely secondary to ARB/ACEI reaction who presents to the [facility] ED on 06/22/17 w/ chest tightness with dizziness, lightheadedness following a long day of irritability, recent ongoing burst steroid usage and benadryl with hives onst 1.5 weeks prior felt likely secondary to ACEI/ARB. In the ED work-up included EKG sinus rhythm without evidence of acute ischemia, CXR without acute process, unremarkable CBC and chemistry, cardiac enzyme set x 1 normal. The patient was admitted to PCU, maintained on cardiac telemetry, serial cardiac enzymes were obtained as well as serial EKGs which remained unremarable. Patient underwent stress testing which was noted to be negative for inducible ischemia. FLP was obtained during admission and noted to be unremarkable. Patient was discharged to home in stable condition with recommendation for follow-up with primary care physician within 1-2 weeks, General Accountant Dr. Mcallister 1-2 weeks and Tube Puller 1-2 weeks. Discharge Time: 35 Minutes DAY OF DISCHARGE PROGRESS NOTE: Subjective: Patient without acute event overnight per self and nursing report. Patient denies fever, chills, nausea, emesis, abdominal pain, chest pain or dyspnea. Patient agreeable to discharge to home with recommended given resolution hives discontinuation steroids and benadryl given > 1 week treatment. Patient will be discharged with follow-up with primary care physician within 1-2 weeks, General Accountant Dr. Mcallister 1-2 weeks and Tube Puller 1-2 weeks. Objective: T 97.9, HR 70, BP 136/78, RR 16, 98% on RA. Physical Examination: General: awake, alert, oriented x 3 and cooperative, seated upright in the bed, NAD. Skin: normal color, turgor, no icterus, cyanosis. HEENT: AT/NC, EOMI, PERRLA, MMM. Lungs: Diminished BS, > bases, moderate effort, no rales, ronchi or wheezing. Heart: Regular rate and rhythm; no gallop, rub audible, murmur s/p AVR. Abdomen: soft, NTTP, ND, normal BS. Extremities: no cyanosis, clubbing, or edema. Neurological: patient awake, alert, oriented x 3; cognitive function appears intact upon questioning,; pupils equally reactive to light and accomodation; cranial nerves II-XII grossly normal, moving all 4 extremities, strength mildly globally decreased. Psychiatric: affect appears normal, no acute evidence of depressive or anxiety feelings. Assessment and Plan: Please see hospital summary above. OBSV E AND M: [id number] Observation care discharge 06/23/17 1414 <Electronically signed by Ria Leong > Date Ria Leong cc: JACLYN Patel; Ria Leong; Marilu Singletary MD * Signed Discharge Date and Diagnosis Date of Admission: 06/23/17 Date of Discharge: 06/23/17 - Primary Discharge Diagnosis Active and Suspected Problems (Last Reviewed 06/22/17 @ 17:01 by JACLYN Morales) 1. Atypical chest pain- ACS ruled out. - Secondary Discharge Diagnosis Chronic Problems (Last Reviewed 06/22/17 @ 17:01 by JACLYN Morales) SOB (shortness of breath) on exertion (Chronic) Sleep disorder breathing (Chronic) GERD (gastroesophageal reflux disease) (Chronic) HTN (hypertension) (Chronic) Psoriasis (Chronic) Carotid stenosis (Chronic) Paroxysmal A-fib (Chronic) Hypercholesterolemia (Chronic) CAD (coronary artery disease) (Chronic) Effusion, left knee (Chronic) Osteoarthritis (Chronic) Sleep disorder (Chronic) Tobacco abuse (Chronic) PND (post-nasal drip) (Chronic) DENVER (obstructive sleep apnea) (Chronic) Hospital Course and Treatment Imaging Results: 06/23/17 05:55 Nuclear Stress Test - Chemical [NM] AM (NON MEDS) Operations: None Procedures: Stress test Summary of Care Provided: The patient is a 76 year old F admitted 06/23/2017 due to chest tightness. 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 ACS ruled out. Troponin negative. Patient underwent nuclear stress test which was negative for ischemia. Chest x-ray unremarkable. She follows with MYRIAM Mathur. Patient will continue outpatient follow-up with cardiology. She follows up with vascular at [facility] for carotid artery stenosis. Patient is undergoing workup for COPD with Dr. Neves. Chest pain has resolved. Patient was started on prednisone and Benadryl as outpatient for reported hives of unknown etiology. These were discontinued going forward. Chronic medical conditions as noted above are stable at this time. Patient seen and examined prior to discharge. Heart rate regular in rate and rhythm. Lungs clear, diminished. Neuro grossly intact. No edema. Patient is stable for discharge home with the follow-up as noted above. This patient was seen by JACLYN Escamilla under the supervision of Dr. Leong. Discharge Diet: Low fat/ Low Cholesterol Discharge Activity: Return to Normal Activity Call your doctor if you observe: Shortness of breath, Dizziness, Fainting spells, Chest pain, Increased palpitations (irregular heartbeat) Home Medications: Medications to take at Discharge Cilostazol [Pletal] 50 mg PO BIDAC 09/01/13 Clopidogrel Bisulfate [Plavix] 75 mg PO DAILY 09/01/13 Ezetimibe [Zetia] 10 mg PO DAILY 09/01/13 Metoprolol Tartrate [Lopressor (beta johnathon)] 75 mg PO BID 09/01/13 Nitroglycerin [Nitrostat] 0.4 mg SUBLINGUAL Q5M PRN 09/01/13 Pantoprazole Sodium [Protonix] 40 mg PO DAILY 09/01/13 Triamterene 37.5MG/Hctz 25MG [Maxzide 37.5 mg-25 mg Tablet] 1 tab PO DAILY 09/01/13 Aspirin E.C. [Ecotrin] 1 tab PO DAILY 01/24/16 Acetaminophen [Tylenol] 325 mg PO PRN PRN 03/08/16 Niacin (Inositol Niacinate) [Niacin Flush Free 500 mg Cap] 1,000 mg PO BID 03/08/16 Primary Care Physician: Marilu Singletary MD [Primary Care Provider] - Please follow up with your Primary Care Physician in: 3-5 Days Please Follow Up With: Britt Mcallister MD When: 1-2 Weeks Please Follow Up With: Sung Neves DO When: As scheduled Disposition: Home Minutes spent on discharge:: 35 Patient Condition:: Stable Meaningful Use Info Meaningful Use Diagnoses (Choose all that apply): None applicable 06/23/17 1124 <Electronically signed by Yolanda Patel NP-C> Date Yolanda Patel ELECTION WATCHERLuzC 06/23/17 1353<Electronically signed by Ria Leong > Cosigner Signature (if applicable): Date Ria Leong CC: ELECTION WATCHER-C Yolanda Patel; Ria Leong; Marilu Singletary MD Signed TROPONIN-I Collected: 06/23/2017 Status: F Source: [place] 11:32 AM [facility] REPOSITORY Order Comment: 'TROP' Serial specimen #1, #2, #3, or #4: 4 TYPE CODE TESTS RESULT OUT OF RANGE REFERENCE UNITS LAB L501.4010 <0.06 ng/mL Normal < 0.02 TROPONIN-I Result Comment: TROPONIN-I EXPECTED VALUES <0.05 NEGATIVE 0.06 - 0.59 AT RISK OF AK > OR = 0.60 SUGGEST AK Performed By: #### L501.4010 #### [facility] Laboratory [address] [place], [address] DISCHARGE INSTRUCTION Observed: 06/23/2017 Status: F Source: [place] 11:09 AM [facility] REPOSITORY [facility] Medical Records Department [address] [place] [address] Instructions for Home/Discharge Instructions 06/23/17 1104 MR#: [id number] Acct: [id number] Name: IVANNA SWANN Rep #: [id number] : 1940 76 From: Yolanda ANAYA PCP: Marilu Singletary MD Status: ADM NESTOR - Discharge Diagnoses Current Active Problems: Current Active and Chronic Problems (Last Reviewed 06/22/17 @ 17:01 by JACLYN Morales) Atypical chest pain (Acute) You will use the following diet at home:: Cardiac Discharge Activity: Return to Normal Activity Call your doctor if you observe: Shortness of breath, Dizziness, Fainting spells, Chest pain, Increased palpitations (irregular heartbeat) Allergies/Adverse Reactions: Allergies Sulfa (Sulfonamide Antibiotics) Allergy (Severe, Verified 06/22/17 12:50) HEART RACING Latex, Natural Rubber Allergy (Verified 06/22/17 12:50) Rash amoxicillin [From Augmentin] Adverse Reaction (Verified 06/22/17 14:25) Nausea atorvastatin [From Lipitor] Adverse Reaction (Verified 06/22/17 14:25) Other CRAMPS clavulanic acid [From Augmentin] Adverse Reaction (Verified 06/22/17 14:25) Nausea Iodinated Contrast- Oral and IV Dye [CONTRASTS] Adverse Reaction (Verified 06/22/17 12:50) Other LOCKJAW niacin [From Niaspan Extended-Release] Adverse Reaction (Verified 06/22/17 14:25) Other FLUSH rosuvastatin [From Crestor] Adverse Reaction (Verified 06/22/17 14:25) Other CRAMPS turkey grease Adverse Reaction (Uncoded 06/22/17 12:50) Rash Medications to take at Discharge Cilostazol [Pletal] 50 mg PO BIDAC 09/01/13 Clopidogrel Bisulfate [Plavix] 75 mg PO DAILY 09/01/13 Ezetimibe [Zetia] 10 mg PO DAILY 09/01/13 Metoprolol Tartrate [Lopressor (beta johnathon)] 75 mg PO BID 09/01/13 Nitroglycerin [Nitrostat] 0.4 mg SUBLINGUAL Q5M PRN 09/01/13 Pantoprazole Sodium [Protonix] 40 mg PO DAILY 09/01/13 Triamterene 37.5MG/Hctz 25MG [Maxzide 37.5 mg-25 mg Tablet] 1 tab PO DAILY 09/01/13 Aspirin E.C. [Ecotrin] 1 tab PO DAILY 01/24/16 Acetaminophen [Tylenol] 325 mg PO PRN PRN 03/08/16 Niacin (Inositol Niacinate) [Niacin Flush Free 500 mg Cap] 1,000 mg PO BID 03/08/16 Primary Care Physician: Marilu Singletary MD [Primary Care Provider] - Please follow up with your Primary Care Physician in: 3-5 Days Please Follow Up With: Britt Mcallister MD When: 1-2 Weeks Please Follow Up With: Sung Neves DO When: As scheduled Proposed Discharge Date: 06/23/17 06/23/17 1109 <Electronically signed by Yolanda LORDC> Date Yolanda LORDC CC: Marilu Singletary MD STRESS REPORT Observed: 06/23/2017 Status: F Source: [place] 10:51 AM [facility] REPOSITORY [facility] Cardiovascular Services [address] [place] [address] MR#: [id number] Acct: [id number] Name: IVANNA SWANN Rep #: [id number] : 1940 76 From: Rigoberto Tadeo MD Primary Care: Marilu Singletary MD Status: ADM NESTOR Ordering Dr: Sex: F C Stress Test Report Pharmacologic myocardial perfusion stress test. 76-year-old lady with a history of chest pain. Stress protocol: Resting EKG demonstrates normal sinus rhythm with a rate of 83 bpm. Resting blood pressure is 184/70 mmHg. 0.4 mg of regadenoson was infused per usual protocol followed by rapid intravenous saline flush injection. Continuous EKG monitoring was performed. There were no ST or T-wave changes noted suggest abnormal flow reserve and at peak infusion no ST or T-wave changes were noted to suggest abnormal flow reserve. No clinical angina was noted. Heart rate attained was 96 bpm which was 66% maximum predicted heart rate the maximum workload was 1 metabolic equivalent. Myocardial perfusion protocol. 11.2 mCi of technetium 99m sestamibi was injected at rest. 0.4 mg of regadenoson was infused per usual protocol. Peak infusion 32.8 mCi of technetium 99m sestamibi was injected. Stress images were obtained. Stress and rest images were reconstructed and compared in the short axis vertical long and horizontal long axis. Gated images were also obtained. Perfusion SPECT analysis: Review of the stress images demonstrate normal uptake of tracer noted in all areas of the myocardium. The resting images similarly demonstrate normal uptake of tracer noted in all areas of the myocardium. No areas of reversibility are noted suggest ischemia. Gated SPECT analysis: The gated ejection fraction is noted to be 83%. Conclusion: Normal pharmacologic myocardial perfusion stress test. Preserved ejection fraction. 06/23/17 1051 <Electronically signed by Rigoberto Tadeo MD> Date Rigoberto Tadeo MD CC: Marilu Singletary MD Date Dictated: 06/23/171046 Date Transcribed: 06/23/171046 Outbound Sales Representative: [place] Signed CBC W/DIFF, AUTOMATED Collected: 06/23/2017 Status: F Source: [place] 5:15 AM [facility] REPOSITORY TYPE CODE TESTS RESULT OUT OF RANGE REFERENCE UNITS LAB L100.1000 4.4-11.0 K/mm3 Normal WBC 10.7 LAB L100.1200 4.2-5.4 M/mm3 Low RBC 3.98 LAB L100.1300 12.0-15.0 g/dl Low HGB 9.7 LAB L100.1400 37-47 % Low HCT 32.0 LAB L100.1500 81-99 fL Low MCV 80.4 LAB L100.1600 27.0-32.0 pg Low MCH 24.4 LAB L100.1700 32-36 g/gl Low MCHC 30.3 LAB L100.1810 11.6-14.6 % High RDW CV 16.4 LAB L100.1820 35.1-43.9 fl High RDW SD 47.3 LAB L100.1900 150-450 K/mm3 Normal PLT 361 LAB L100.2000 6.2-12.0 fl Normal MPV 8.5 LAB L100.2100 47-70 % Normal NEUT% 65.0 LAB L100.2200 19-41 % Normal LY% 23.8 LAB L100.2300 0-10 % Normal MONO% 7.0 LAB L100.2400 0-5 % Normal EO% 3.5 LAB L100.2500 0-1 % Normal BASO% 0.4 LAB L100.2550 0.0-0.9 % Normal IM GRAN % 0.300 Result Comment: IG% - Immature Granulocytes (promyelocytes, myelocytes and metamyelocytes) > 1% indicates that a LEFT SHIFT is Present. LAB L100.2620 2.0-7.7 X10 3/uL Normal Absolute Neut 7.0 LAB L100.2720 0.83-4.51 X10 3/ul Normal Absolute Lymph 2.55 Performed By: #### L100.0100 #### [facility] Laboratory [address] [place], [address] PROTHROMBIN TIME W/INR Collected: 06/23/2017 Status: F Source: [place] 5:15 AM [facility] REPOSITORY TYPE CODE TESTS RESULT OUT OF RANGE REFERENCE UNITS LAB L300.4150 11.7-14.9 SECONDS Normal PROTIME 14.0 LAB L300.4200 Normal INR 1.1 Performed By: #### L300.3900, L300.4310 #### [facility] [address] [place], [address] PARTIAL THROMBOPLAST Collected: 06/23/2017 Status: F Source: [facility] 5:15 AM [facility] REPOSITORY TYPE CODE TESTS RESULT OUT OF RANGE REFERENCE UNITS LAB L300.4310 24.1-36.2 Seconds Normal PTT 31.8 Performed By: #### L300.3900, L300.4310 #### [facility] Laboratory [address] [place], [address] COMPREHENSIVE METABOLIC Collected: 06/23/2017 Status: F Source: [place]IL 5:15 AM [facility] REPOSITORY Order Comment: 'TROP' Serial specimen #1, #2, #3, or #4: 3 TYPE CODE TESTS RESULT OUT OF RANGE REFERENCE UNITS LAB L501.0100 74-106 mg/dL Normal GLU 83 Result Comment: Please note revised GLUCOSE reference range effective 2017. LAB L501.1000 7-18 mg/dL Normal BUN 18 LAB L501.1100 0.55-1.02 mg/dL High CREAT,SERUM 1.07 Result Comment: The validity of the calculated GFR AND GFRAA in patients over 70 years has not been determined. Clinical correlation is essential. LAB L501.1110 >60 mL/min Low EST GFR 53 Result Comment: Non- GFR Calc LAB L501.1115 >60 mL/min Normal EST GFR - AA 64 Result Comment: GFR Calc LAB L501.1255 ml/min Normal Estimated CRCL 38.63 LAB L501.1300 10-20 RATIO Normal BUN/CRE 16.8 LAB L501.1500 6.4-8. g/dL Normal 2 T PROT 6.5 LAB L501.1800 3.2-5. g/dL Normal 0 ALB 3.2 LAB L501.1950 2.2-4. g/dL Normal 2 GLOB 3.3 LAB L501.2000 0.9-2. RATIO Normal 4 A/G 1.0 LAB L501.2200 8.5-10 mg/dL Low .1 CA 8.4 LAB L501.4100 15-37 U/L Normal AST 16 LAB L501.4305 45-117 U/L Normal ALK P 74 LAB L501.4405 13-56 U/L Normal ALT 17 Result Comment: Please note revised ALT reference range effective 2017. LAB L501.4600 0.20-1.00 mg/dL Normal T BILI 0.70 LAB L501.5300 136-145 mmol/L Normal NA 139 LAB L501.5600 3.5-5.1 mmol/L Normal K 4.1 LAB L501.5900 98-107 mmol/L Normal CL 102 LAB L501.6100 21.0-32.0 mmol/L Normal CO2 30.0 LAB L501.6200 5-15 Normal GAP 7 Performed By: #### L500.4050, L500.4100, L501.4010, L501.5200, L501.9520 #### [facility] Laboratory [address] [place], [place], [id number] LIPID PROFILE Collected: 06/23/2017 Status: F Source: [place] 5:15 AM [facility] REPOSITORY Order Comment: 'TROP' Serial specimen #1, #2, #3, or #4: 3 TYPE CODE TESTS RESULT OUT OF RANGE REFERENCE UNITS LAB L501.4900 200 mg/dL Normal CHOL 180 Result Comment: <200 mg/dL Desirable 200-240 mg/dL Borderline >240 mg/dL High Risk LAB L501.5000 mg/dL Normal TRIG 162 Result Comment: The drugs N-Acetylcysteine and Metamizole may falsely depress this assay. Serum Triglycerides Reference Interval Normal <150 mg/dL Borderline high 150 - 199 mg/dL High 200 - 499 mg/dL Very High > or = 500 mg/dL LAB L501.6400 mg/dL Normal HDL 56 Result Comment: The drugs N-Acetylcysteine and Metamizole may falsely depress this assay. Reference Range HDL <40 mg/dL Low HDL Cholesterol HDL >or= 60 mg/dL High HDL Cholesterol LAB L501.6500 0-130 mg/dL Normal LDL 92 LAB L501.6600 5-40 mg/dL Normal VLDL 32 Performed By: #### L500.4050, L500.4100, L501.4010, L501.5200, L501.9520 #### [facility] [address] [place], [place], [id number] TROPONIN-I Collected: 06/23/2017 Status: F Source: [place] 5:15 AM [facility] REPOSITORY Order Comment: 'TROP' Serial specimen #1, #2, #3, or #4: 3 TYPE CODE TESTS RESULT OUT OF RANGE REFERENCE UNITS LAB L501.4010 <0.06 ng/mL Normal < 0.02 TROPONIN-I Result Comment: TROPONIN-I EXPECTED VALUES <0.05 NEGATIVE 0.06 - 0.59 AT RISK OF AK > OR = 0.60 SUGGEST AK Performed By: #### L500.4050, L500.4100, L501.4010, L501.5200, L501.9520 #### [facility] [address] [place], [place], [id number] MAGNESIUM Collected: 06/23/2017 Status: F Source: [place] 5:15 AM [facility] REPOSITORY Order Comment: 'TROP' Serial specimen #1, #2, #3, or #4: 3 TYPE CODE TESTS RESULT OUT OF RANGE REFERENCE UNITS LAB L501.5200 1.6-2.6 mg/dL Normal MG 2.1 Result Comment: Please note revised Magnesium reference range effective 2017. Performed By: #### L500.4050, L500.4100, L501.4010, L501.5200, L501.9520 #### [facility] [address] [place], [address] THYROID STIM HORMONE Collected: 06/23/2017 Status: F Source: [place] (TSH) 5:15 AM [facility] REPOSITORY Order Comment: 'TROP' Serial specimen #1, #2, #3, or #4: 3 TYPE CODE TESTS RESULT OUT OF RANGE REFERENCE UNITS LAB L501.9520 0.358-3.74 uIU/mL High TSH 4.38 Performed By: #### L500.4050, L500.4100, L501.4010, L501.5200, L501.9520 #### [facility] [address] [place], [address] TROPONIN-I Collected: 06/23/2017 Status: F Source: [place] 1:55 AM [facility] REPOSITORY Order Comment: 'TROP' Serial specimen #1, #2, #3, or #4: 2 TYPE CODE TESTS RESULT OUT OF RANGE REFERENCE UNITS LAB L501.4010 <0.06 ng/mL Normal < 0.02 TROPONIN-I Result Comment: TROPONIN-I EXPECTED VALUES <0.05 NEGATIVE 0.06 - 0.59 AT RISK OF AK > OR = 0.60 SUGGEST AK Performed By: #### L501.4010 #### [facility] [address], [address] HISTORY AND PHYSICAL Observed: 06/23/2017 Status: F Source: [place] EXAM 12:46 AM [facility] REPOSITORY [facility] Medical Records Department [address] [place] [address] History and Physical 06/22/17 2243 MR#: [id number] Acct: [id number] Name: IVANNA SWANN Rep #: [id number] : 1940 76 From: Patrice Costa MD PCP: Marilu Singletary MD Status: ADM NESTOR Y Location: [place] [address] Problem List (1) Atypical chest pain Status: Acute (2) SOB (shortness of breath) on exertion Status: Chronic (3) Sleep disorder breathing Status: Chronic (4) History of mastectomy Status: Resolved (5) GERD (gastroesophageal reflux disease) Status: Chronic (6) HTN (hypertension) Status: Chronic (7) Psoriasis Status: Chronic (8) Carotid stenosis Status: Chronic (9) Paroxysmal A-fib Status: Chronic (10) Hypercholesterolemia Status: Chronic (11) CAD (coronary artery disease) Status: Chronic (12) Effusion, left knee Status: Chronic (13) Osteoarthritis Status: Chronic (14) Sleep disorder Status: Chronic (15) Tobacco abuse Status: Chronic (16) PND (post-nasal drip) Status: Chronic (17) DENVER (obstructive sleep apnea) Status: Chronic History of Present Illness Date of Admission: 06/23/17 Chief Complaint: Chest tightness bilateral today The patient is a 76 year old F with multiple comorbidities including coronary artery disease status post two-vessel CABG and bioprosthetic aortic valve replacement in August 2013, and [facility], 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 Espinoza bilateral carotid endarterectomy came to ER with chest tightness across both chest in the evening today. Chest pain started spontaneously while patient was feeding her cats, persistent with radiation to bilateral carotids and neck. This was not associated with shortness of breath, palpitation, or syncope but patient felt mildly dizzy and her eyes were fluttering. Patient also had sweating. In the ED, EKG shows normal sinus rhythm at 76 bpm with old septal infarct. No change from the previous EKG of January 2016. Patient is further admitted. [] Past Medical History Past Medical History (Chronic Problems): Chronic Problems (Last Reviewed 06/22/17 @ 17:01 by JACLYN Morales) SOB (shortness of breath) on exertion (Chronic) Sleep disorder breathing (Chronic) GERD (gastroesophageal reflux disease) (Chronic) HTN (hypertension) (Chronic) Psoriasis (Chronic) Carotid stenosis (Chronic) Paroxysmal A-fib (Chronic) Hypercholesterolemia (Chronic) CAD (coronary artery disease) (Chronic) Effusion, left knee (Chronic) Osteoarthritis (Chronic) Sleep disorder (Chronic) Tobacco abuse (Chronic) PND (post-nasal drip) (Chronic) DENVER (obstructive sleep apnea) (Chronic) Allergies Sulfa (Sulfonamide Antibiotics) Allergy (Severe, Verified 06/22/17 12:50) HEART RACING Latex, Natural Rubber Allergy (Verified 06/22/17 12:50) Rash amoxicillin [From Augmentin] Adverse Reaction (Verified 06/22/17 14:25) Nausea atorvastatin [From Lipitor] Adverse Reaction (Verified 06/22/17 14:25) Other CRAMPS clavulanic acid [From Augmentin] Adverse Reaction (Verified 06/22/17 14:25) Nausea Iodinated Contrast- Oral and IV Dye [CONTRASTS] Adverse Reaction (Verified 06/22/17 12:50) Other LOCKJAW niacin [From Niaspan Extended-Release] Adverse Reaction (Verified 06/22/17 14:25) Other FLUSH rosuvastatin [From Crestor] Adverse Reaction (Verified 06/22/17 14:25) Other CRAMPS turkey grease Adverse Reaction (Uncoded 06/22/17 12:50) Rash Home Medications: Ambulatory Orders Medication Instructions Recorded Cilostazol [Pletal] 50 mg PO BIDAC 09/01/13 Clopidogrel Bisulfate [Plavix] 75 mg PO DAILY 09/01/13 Smoking Status: Never smoker - *Family History Paternal History Items: No pertinent history Review of Systems Constitutional: Denies: Chills, Fever, Weight Change HEENT: Denies: Head Aches, Sinus Congestion, Sinus Drainage Cardiovascular: Reports: Chest Tightness, - - History of CABG. Denies: Chest Pain, Palpitations Respiratory: Reports: Shortness of breath upon exertion. Denies: Cough, Shortness of breath at rest, Sputum production Gastrointestinal: Denies: Abdominal Pain, Nausea, Vomiting Genitourinary: Denies: Dysuria Musculoskeletal: Denies: Joint Pain, Joint Tenderness Skin: Denies: Rash, Wounds Neurological: Denies: Numbness, Tingling, Focal weakness Psychiatric: Denies: Anxiety, Depression, Homicidal Ideations, Suicidal Ideations Hematologic/ Lymphatic: Denies: Easy Bruising, Easy Bleeding VTE Information - Inpt Only VTE Present on Admission: No VTE Mechan Device Prophylaxis: SCD's VTE Pharm Prophylaxis ordered?: Yes Patient Problems: Active and Suspected Problems (Last Reviewed 06/22/17 @ 17:01 by Marci Zabala NP-C) Atypical chest pain (Acute) - Physical Exam General: Alert, Oriented x3, Cooperative HEENT: Atraumatic, PERRLA, EOMI, Normocephalic Neck: Supple, No JVD, Negative Carotid Bruits Lungs: Diminished, Rhonchi - Bilateral expiratory rhonchi present Cardiovascular: Regular rate, Regular Rhythm, Normal S1, Normal S2, No murmurs, - - CABG scar present Abdomen: Bowel Sounds Present, Soft, Non Tender, Non-Distended Extremities: No edema, Capillary Refill Less than 3 Seconds Skin: No breakdown, Rash Present - Patient has diffuse psoriatic rash mainly on lower legs and lumbar spinal region. Musculoskeletal: No Tenderness to Palpation of Joints or Extremities, Arthritic Changes Neurological: Cranial nerves II-XII grossly intact Psych/Mental Status: Normal Affect, Appropriate Vital Signs Temp Pulse Resp BP Pulse Ox 98.1 F 76 16 139/62 H 97 06/22/17 20:18 06/22/17 22:15 06/22/17 22:15 06/22/17 22:15 06/22/17 22:15 Assessment/Plan Active and Suspected Problems (Last Reviewed 06/22/17 @ 17:01 by Marci Zabala NP-C) Atypical chest pain (Acute) The patient is a 76 year old F with multiple comorbidities including coronary artery disease status post two-vessel CABG and bioprosthetic aortic valve replacement in August 2013, and [facility], 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 Espinoza bilateral carotid endarterectomy, left CVA 1988, right CEA 1998 came to ER with chest tightness across both chest in the evening today. Chest pain started spontaneously while patient was feeding her cats, persistent with radiation to bilateral carotids and neck. This was not associated with shortness of breath, palpitation, or syncope but patient felt mildly dizzy and her eyes were fluttering. Patient also had sweating. In the ED, EKG shows normal sinus rhythm at 76 bpm with old septal infarct. No change from the previous EKG of January 2016. Patient is further admitted. 1. Atypical chest tightness, rule out acute coronary syndrome: Patient is admitted on the PCU. On ACS protocol with serial cardiac enzymes and if negative Lexiscan stress test tomorrow morning. Continue aspirin, Plavix, metoprolol and Zetia. Nitro sublingual and/or Nitro ointment as needed for chest pain 2. Cardiac disease: Coronary artery disease status post two- vessel CABG, valvular heart disease, aortic stenosis status post bioprosthetic bovine aortic valve replacement and paroxysmal A. fib: Continue home cardiac medications. 3. Peripheral arterial disease: Bilateral carotid stenosis: Admission above patient had bilateral CVA. As per patient, last carotid Doppler shows 75% carotid stenosis in left, 65% on right carotid artery. He is on cilostazol. 4. COPD with sleep disorder: Patient is still a smoker and smokes about 5 cigarettes daily, started at the age of 25. Smoking cessation counseling done. On bronchodilator. Advair added. CA breast status post bilateral mastectomy: Patient had right CA breast and benign cyst in the left breast. She had mastectomy in 1988. In remission. 5. Other multiple comorbidities include hypertension, osteoarthritis, obstructive sleep apnea, diffuse cutaneous psoriasis, GERD: Home medication reconciliation done. Code Visit OBSV E AND M: [id number] Initial observation care L3 06/23/17 0046 <Electronically signed by Patrice Costa MD> Date Patrice Costa MD Cosigner Signature: Date (if applicable) CC: Marilu Singletary MD; Patrice Costa MD Signed CHEST 1 VIEW Observed: 06/22/2017 Status: F Source: [place] (PORTABLE) 8:36 PM [facility] REPOSITORY [facility] Imaging Services [address] [place] [id number] Chest 1 View (Portable) MR#: [id number] Acct: [id number] Name: IVANNA SWANN Rep #: [id number] : 1940 F 76 From: Brian Shen PCP: Marilu Singletary MD Status: REG ER Study: Chest 1 View (Portable) Date of Exam: 06/22/17 Exam# [id number] Ordering Dr: Rodrigo Finley MD STUDY: X-RAY CHEST REASON FOR EXAM: Female, 76 years old. Chest pain TECHNIQUE: Single AP portable view of the chest. COMPARISON: None. FINDINGS: The lungs are clear and expanded. There is no demonstrated pleural abnormality. Normal size heart. Patient status post sternotomy. Normal mediastinum and erasmo. Normal visualized pulmonary arteries. Normal visualized aortic arch and descending thoracic aorta. Normal visualized thoracic spine. Normal visualized ribs, clavicles, and shoulders. Right and left axillary surgical clips. There is no demonstrated abnormality of the visualized soft tissue structures of the upper abdomen. RAD/Chest 1 View (Portable) IMPRESSION: No acute infiltrate. Electronically Signed: Brian Shen DO at 20:57 EST , Service support , CC: Marilu Singletary MD; Rodrigo Finley MD Outbound Sales Representative: Signed CBC W/DIFF, AUTOMATED Collected: 06/22/2017 Status: F Source: [place] 8:32 PM [facility] REPOSITORY TYPE CODE TESTS RESULT OUT OF RANGE REFERENCE UNITS LAB L100.1000 4.4-11.0 K/mm3 High WBC 12.4 LAB L100.1200 4.2-5.4 M/mm3 Low RBC 4.08 LAB L100.1300 12.0-15.0 g/dl Low HGB 9.8 LAB L100.1400 37-47 % Low HCT 32.7 LAB L100.1500 81-99 fL Low MCV 80.1 LAB L100.1600 27.0-32.0 pg Low MCH 24.0 LAB L100.1700 32-36 g/gl Low MCHC 30.0 LAB L100.1810 11.6-14.6 % High RDW CV 16.4 LAB L100.1820 35.1-43.9 fl High RDW SD 47.8 LAB L100.1900 150-450 K/mm3 Normal PLT 336 LAB L100.2000 6.2-12.0 fl Normal MPV 8.6 LAB L100.2100 47-70 % Normal NEUT% 61.5 LAB L100.2200 19-41 % Normal LY% 26.9 LAB L100.2300 0-10 % Normal MONO% 8.2 LAB L100.2400 0-5 % Normal EO% 2.8 LAB L100.2500 0-1 % Normal BASO% 0.3 LAB L100.2550 0.0-0.9 % Normal IM GRAN % 0.300 Result Comment: IG% - Immature Granulocytes (promyelocytes, myelocytes and metamyelocytes) > 1% indicates that a LEFT SHIFT is Present. LAB L100.2620 2.0-7.7 X10 3/uL Normal Absolute Neut 7.6 LAB L100.2720 0.83-4.51 X10 3/ul Normal Absolute Lymph 3.33 Performed By: #### L100.0100 #### [facility] [address] [place], [address] BASIC METABOLIC Collected: 06/22/2017 Status: F Source: [place] PROFILE (BMP) 8:32 PM [facility] REPOSITORY Order Comment: 'TROP' Serial specimen #1, #2, #3, or #4: 1 TYPE CODE TESTS RESULT OUT OF RANGE REFERENCE UNITS LAB L501.0100 74-106 mg/dL Normal GLU 102 Result Comment: Fasting Glucose result from 100 to 125 mg/dL suggests IMPAIRED HOMEOSTASIS per A.D.A. criteria. Please note revised GLUCOSE reference range effective 2017. LAB L501.1000 7-18 mg/dL High BUN 19 LAB L501.1100 0.55-1.02 mg/dL High CREAT,SERUM 1.26 Result Comment: The validity of the calculated GFR AND GFRAA in patients over 70 years has not been determined. Clinical correlation is essential. LAB L501.1110 >60 mL/min Low EST GFR 44 Result Comment: Non- GFR Calc LAB L501.1115 >60 mL/min Low EST GFR - AA 53 Result Comment: GFR Calc LAB L501.1255 ml/min Normal Estimated CRCL 34.18 LAB L501.1300 10-20 RATIO Normal BUN/CRE 15.1 LAB L501.2200 8.5-10 mg/dL Low .1 CA 8.3 LAB L501.5300 136-14 mmol/L Normal 5 NA 139 LAB L501.5600 3.5-5. mmol/L Normal 1 K 4.0 LAB L501.5900 98-107 mmol/L Normal CL 102 LAB L501.6100 21.0-3 mmol/L Normal 2.0 CO2 28.0 LAB L501.6200 5-15 Normal GAP 9 Performed By: #### L500.2500, L501.4010 #### [facility] [address] [place], [address] TROPONIN-I Collected: 06/22/2017 Status: F Source: [place] 8:32 PM [facility] REPOSITORY Order Comment: 'TROP' Serial specimen #1, #2, #3, or #4: 1 TYPE CODE TESTS RESULT OUT OF RANGE REFERENCE UNITS LAB L501.4010 <0.06 ng/mL Normal < 0.02 TROPONIN-I Result Comment: TROPONIN-I EXPECTED VALUES <0.05 NEGATIVE 0.06 - 0.59 AT RISK OF AK > OR = 0.60 SUGGEST AK Performed By: #### L500.2500, L501.4010 #### [facility] [address] [place], [address] BNP,B-TYPE NATRIURETIC Collected: 06/22/2017 Status: F Source: [place] PEPTIDE 8:32 PM [facility] REPOSITORY TYPE CODE TESTS RESULT OUT OF RANGE REFERENCE UNITS LAB L503.6620 0-100 pg/mL Normal B-TYPE 65.4 PANCHO PEP Performed By: #### L503.6620 #### [facility] [address] [place], [address] EMERGENCY DEPARTMENT Observed: 06/15/2017 Status: F Source: [place] SUMMARY 12:21 AM [facility] REPOSITORY [facility] Medical Records Department [address] [place] [address] Emergency Department Summary 06/15/17 0016 MR#: [id number] Acct: [id number] Name: IVANNA SWANN Rep #: [id number] : 1940 76 From: Maury Carmen PCP: Marilu Singletary MD Status: REG ER - ER Visit Summary Date of Service: 06/15/17 Chief Complaint: Allergic reaction History of Present Illness: The patient is a 76 F presents with concerns allergic reaction with itching on the skin in her thighs. No lip or tongue swelling. No trouble breathing. History of psoriasis and itching around these regions. States proximal week ago seen in the ED for swelling of the lips. She is on losartan. Follow-up with her PCP yesterday, losartan is held. 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 No new foods. No change in soaps or detergents. She is only on topical creams for her psoriasis. No history of diabetes. Physical Examination: General: Alert and oriented 3, no acute distress HEENT: Normocephalic, atraumatic. Moist mucosa membranes Neck: supple, nontender. Cardiovascular: Regular rate and rhythm, no murmurs Respiratory: Normal breath sounds, symmetric, no distress Abdomen: Soft, nontender, nondistended Extremities: Nontender, no edema, pulses intact 4 Neuro: no focal neurological deficits. Skin: Psoriasis plaques on her bilateral lateral thighs, volar forearm, back or her symptoms are. There is no urticaria. No active drainage. Nontender to palpation. Test Results: [] Emergency Department Course and Treatment: Patient with pruritic symptoms around her psoriasis plaques. There is no signs of infection. She is not a diabetic. She will be placed on prednisone for 10 days. She did an elevated blood pressure 201/83 in the triage. Checked in the room, 190/68. She is on blood pressure medications. She is asymptomatic. She will recheck as an outpatient. Treatment Plan: [] Disposition: Discharge Impression: 1. Psoriasis 2. Elevated blood pressure This note was generated with Skoovyation software. It may contain incorrect words, spelling, and punctuation that were not noted in review of the chart prior to signing ED Disposition - Plan for ED Patient: Disposition: Home or Assisted Living Chief Complaint: Allergic Reaction Diagnosis: Psoriasis, Elevated blood pressure reading Instructions: ED Psoriasis Prescriptions: Prednisone 20 mg PO DAILY #10 tablet Referrals: Marilu Singletary MD [Primary Care Provider] - 5-7 Days Additional Instructions: Blood pressure 190/68. Take your blood pressure medicines record her blood pressure at home. Follow-up with your doctor. Take steroids as prescribed. Follow-up with her underground truck operator's for evaluation as referred by your PCP. What to do if you have Problems For any increased pain, shortness of breath, bleeding, nausea or vomiting, chest pain, or any unexpected problems, contact your Primary Care Provider. Call [facility] ([phone]) or report to the closest Emergency Room. Call 911 if necessary. 06/15/17 0021 <Electronically signed by Maury Carmen> Date aMury Carmen Cosigner Signature (If Indicated): Date CC: Marilu Singletary MD ALLERGIES ALLERGIES DATE TYPE / CODE NAME / CODE REACTION SEVERITY SOURCE Drug Iodinated Other Unknown [place] [facility] Allergy/268609807( Contrast- Oral Community SNOMED CT) and IV Hospital Dye/T602808108(RX Repository NORM) Drug Sulfa heart racing SV [place] 8 Allergy/124727202( (Sulfonamide Community SNOMED CT) Antibiotics)/F001 Hospital 256757(RXNORM) Repository Drug Latex, Natural Rash Unknown [place] Allergy/336558534( Rubber/[id number] Community SNOMED CT) (RXNORM) Hospital Repository Drug niacin/D270326950 Other Unknown [place] Allergy/899996743( (RXNORM) Community SNOM[facility]) Hospital Repository Drug clavulanic Nausea Unknown [place] [facility] Allergy/671296747( acid/O060683943(R Community SNOMED CT) XNORM) Hospital Repository Drug amoxicillin/F0060 Nausea Unknown [place] Allergy/088663445( 33392(RXNORM) Community SNOMED CT) Hospital Repository Drug atorvastatin/F006 Other Unknown [place] Allergy/129220933( 318620(RXNORM) Community SNOMED CT) Hospital Repository Drug rosuvastatin/F006 Other Unknown [place] Allergy/476179699( 003943(RXNORM) [facility] SNOMED CT) Hospital Repository Miscellaneous turkey grease Rash Unknown [place] 8 Allergy/682785798( [facility] SNOMED CT) Hospital Repository Drug Penicillins/F0010 Abd MO [place] Allergy/817240828( [address]288(RXNORM) cramps/diarrhea [facility] SNOMED CT) Hospital Repository DRUG LISINOPRIL COUGH [place] [facility] INGREDI/023688167( Clinic Main SNOMED [facility]) [place] Repository DRUG/626164915(SNO AMOXICILLIN-POT GI UPSET [place] [address]) CLAVULANATE Clinic Main [place] Repository Drug PENICILLINS GI UPSET [place] Class/376808380(SN Clinic Main OMED CT) [place] Repository DRUG NIACIN RASH [place] 4 INGREDI/314163705( Clinic Main SNOMED CT) [place] Repository DRUG LATEX [place] INGREDI/115979733( Clinic Main SNOMED CT) [place] Repository Miscellaneous OTHER INTOLERANCE [place] 9 Allergy/765661576( Clinic Main SNOMED CT) [place] Repository DRUG ROSUVASTATIN [place] INGREDI/991322826( CALCIUM Clinic Main SNOMED CT) [place] Repository DRUG ATORVASTATIN OTHER: SEE C [place] INGREDI/554611510( Clinic Main SNOMED CT) [place] Repository Drug IODINE AND IODIDE INTOLERANCE [place] Class/345869091(SN CONTAINING Clinic Main OMED CT) PRODUCTS [place] Repository Drug SULFA INTOLERANCE [place] Class/576757609(SN (SULFONAMIDE Clinic Main OMED CT) ANTIBIOTICS) [place] Repository NG/465828257(SNOME AMOXICILLIN-POT [facility] D CT) CLAVULANATE [facility] Repository NG/702599864(SNOME ROSUVASTATIN [facility] D CT) CALCIUM [facility] Repository NG/369576650(SNOME IODINE AND IODIDE [facility] D CT) CONTAINING Health System PRODUCTS Repository NG/595445895(SNOME LATEX [facility] D CT) [facility] System Repository NG/213206074(SNOME ATORVASTATIN [facility] D CT) Health System Repository NG/896526706(SNOME LISINOPRIL [facility] D CT) Health System Repository NG/320880884(SNOME NIACIN [facility] D CT) Health System Repository NG/097487023(SNOME PENICILLINS [facility] D CT) Health System Repository NG/428113902(SNOME SULFA [facility] D CT) (SULFONAMIDE Health System ANTIBIOTICS) Repository NG/619503706(SNOME OTHER [facility] D CT) Health System Repository ENCOUNTERS ENCOUNTERS ADMIT/DISCHARGE ACCOUNT NUMBER ADMITTING ENCOUNTER LOCATION SOURCE CLASS 04/11/2018 [id number] Ambulatory [facility] ding:OPBD Repository 04/03/2018 [id number] Ambulatory Building:[facility] Repository 10/24/2017/10/25/19 [id number] Ambulatory [address] Repository 10/24/[id number] [facility] MEDICAL Repository CENTERBuildi ng:CAGWS 10/03/2017/10/04/19 [id number] Ambulatory BMSBuilding: [place] Repository 09/13/2017 [id number] Ambulatory [facility] ding:PSN Repository 08/31/2017/09/11/19 [id number] Ambulatory [address] Repository 06/27/2017 [id number] Ambulatory [facility] ding:CT Repository 06/24/2017 [id number] Ambulatory [facility] ding:LABSPEC Repository 06/23/2017/06/24/19 [id number] Ambulatory BMSBuilding: [place] 18 [facility] Repository 06/22/2017/06/24/19 [id number] I[place], Ambulatory [address] ding:PCURoom Repository : HYD303Dex: 1 06/22/2017 [id number] [place], Ambulatory BMSBuilding: [place] [facility] Repository 06/22/2017 [id number] [place], Ambulatory BMSBuilding: [place] [facility] Repository 06/22/2017/06/22/19 [id number] Ambulatory [place] [facility] ding:MEDOUTP Repository 06/22/2017/06/22/19 [id number] Ambulatory BMSBuilding: [place] 18 BMS.PMW [facility] [place] [place] Repository 06/14/2017/06/15/19 [id number] Emergency [place] 18 [facility] ding:ED Repository PAYERS PAYERS ENCOUNTER GUARANTOR PAYER SUBSCRIBER SOURCE 04/11/2018 IVANNA Primary IVANNA [place] [id number] [place] Insurance:AETNA BRUCEDOB: [facility] Number: [id number] Hospital [address]Qae: (330) [id number] Repository [phone] () Date:6880-02-21BI [address] [place]ACO[place] [address]MY: 04/11/2018 Secondary NOT GIVENUNK [place] Insurance:SELF PAY [facility] Number: Effective Repository Date:2018-04-03 04/03/2018 IVANNA Primary IVANNA OHIP Practices BRUCEDOB: Insurance:[employer] Life BRUCEDOB: Repository [id number] [facility]/MedicarePolicy [id number] [place] [address], Number: 7 [facility] [address]Rap: [id number] [place], [place] Date:4269-56-08Qsqu [address]Oic: [phone]) ()Tel: [phone]) Name:[facility] [phone] () [phone] () 525186Hw MOE Jacobs [id number]: 04/03/2018 Secondary IVANNA OHIP Practices Insurance:MANGO Clarke BRUCEDOB: Repository Sony.Policy Number: [id number] 7 [place] Date:2003-03-25 - [place] 3290-07-68Xxcn [address]Hef: [phone]) Name:[facility] [phone] () [place], [place] [address]OI: 10/24/2017 IVANNA Primary IVANNA [facility] BRUCEDOB: Insurance:AETNA BRUCEDOB: Health System MEDICARE PPOPolicy [id number] Repository [place] RDWOCTAVIA, Number: [place] [address]Szl: [id number] Date: (HP) 10/03/2017 IVANNA Primary IVANNA Salcedo [id number] [place] Insurance:AETNA BRUCEDOB: [facility] Number: [id number] Hospital [address]Lad: (330) [id number] Repository [phone] (HP) Date:1650-55-64ZO [address] [place] [address]PY: 10/03/2017 Secondary NOT GIVENUNK [place] Insurance:SELF PAY [facility] Number: Effective Repository Date:2017-09-23 09/13/2017 IVANNA Primary IVANNA [place] [id number] [place] Insurance:AETNA BRUCEDOB: [facility] Number: [id number] Hospital [address]Yis: (330) [id number] Repository [phone] () Date:0266-22-31TS [address] [place] [address]JG: 09/13/2017 Secondary NOT GIVENUNK [place] Insurance:SELF PAY [facility] Number: Effective Repository Date:2017-06-22 06/27/2017 IVANNA Primary IVANNA [place] [id number] [place] Insurance:AETNA BRUCEDOB: [facility] Number: [id number] Hospital [address]Qzc: (330) [id number] Repository [phone] (HP) Date:1713-48-80JN [address] [place] [address]GG: 06/27/2017 Secondary NOT GIVENUNK [place] Insurance:SELF PAY [facility] Number: Effective Repository Date:2017-06-27 06/24/2017 IVANNA Primary IVANNA Salcedo [id number] ANH Insurance:AETNA [facility]: [id number] Hospital [address]Pfr: (330) [id number] Repository [phone] () Date:2943-69-09CX [address] [place] [address]AM: 06/24/2017 Secondary NOT GIVENUNK [place] Insurance:SELF PAY [facility] Number: Effective Repository Date:2017-06-24 06/23/2017 IVANNA Primary IVANNA Salcedo [id number] [place] Insurance:AETNA BRUCEDOB: [facility] Number: [id number] Hospital [address]Ioy: (115) [id number] Repository [phone] () Date:6747-98-50AO [address] [place] [address]UC: 06/23/2017 Secondary NOT GIVENUNK [place] Insurance:SELF PAY [facility] Number: Effective Repository Date:2017-06-23 06/22/2017 IVANNA Primary IVANNA Saldanaoster [id number] [place] Insurance:AETNA BRUCEDOB: [facility] Number: [id number] Hospital [address]Its: (330) [id number] Repository [phone] (HP) Date:8859-25-31SJ [address]HB[address] [place] [address]YL: 06/22/2017 Secondary NOT GIVENUNK [place] Insurance:SELF PAY [facility] Number: Effective Repository Date:2017-06-22 06/22/2017 IVANNA Primary IVANNA Salcedo [id number] [place] Insurance:AETNA BRUCEDOB: [facility] Number: [id number] Hospital [address]Yix: (330) [id number] Repository [phone] () Date:1311-77-69DR [address] [place] [address]MM: 06/22/2017 Secondary NOT GIVENUNK [place] Insurance:SELF PAY [facility] Number: Effective Repository Date:2017-06-22 06/22/2017 IVANNA Primary IVANNA [place] [id number] [place] Insurance:AETNA BRUCEDOB: [facility] Number: [id number] Hospital [address]Cdm: 330 [id number] Repository [phone] () Date:9342-92-00AG [address] [place] [address]SV: 06/22/2017 Secondary NOT GIVENUNK [place] Insurance:SELF PAY [facility] Number: Effective Repository Date:2017-06-22 06/22/2017 IVANNA Primary IVANNA [place] [id number] [place] Insurance:AETNA [facility]OB[facility]: [id number] Hospital [address]Qnh: 330 [id number] Repository [phone] () Date:0975-81-39AM [address] [address]FY: 06/22/2017 Secondary NOT GIVENUNK [place] Insurance:SELF PAY [facility] Number: Effective Repository Date:2017-06-20 06/22/2017 IVANNA Primary IVANNA [place] [id number] [place] Insurance:MEDICARE BRUCEDOB: [place] PART A BPolicy [id number] Hospital [address]Zcs: (330) Number: Repository [phone] () [id number] Date:2017-04-04 06/22/2017 Secondary IVANNA [place] Insurance:ANTHEMPolic BRUCEDOB: Community y Number: [id number] Hospital [id number] Repository Date:7153-20-69NB [address]Z[address], [place] [address]TK: 06/22/2017 Tertiary NOT GIVENUNK [place] Insurance:SELF PAY [facility] Number: Effective Repository Date:2017-04-04 06/14/2017 IVANNA Primary IVANNA Salcedo [id number] [place] Insurance:AETNA ISRAELB: [facility]DWOOROYA, [facility]: [id number] Hospital [address]Bgq: ([phone]) [id number] Repository [phone] () Date:1594-31-89BT [address] [place] [place] [address]OR: 06/14/2017 Secondary NOT GIVENUNK [place] Insurance:SELF PAY [facility] Number: Effective Repository Date:2017-06-14
== END ==
PROVIDERS: Family Provider Internal Medicine; PCP Internal Medicine; Referring Provider Internal Medicine; Visit Provider Internal Medicine
DX: N95.9 Unspecified menopausal and perimenopausal disorder (principal)
CPT/HCPCS: 77080

== ENCOUNTER → 2019-03-21 16:04 | Outpatient (CLI) | payer MEDICARE, SELFPAY ==
[2019-03-21 14:50] VITALS: BMI 28.8
--- NOTE | 2019-03-21 16:10 | RAD_ITS ---
STUDY: X-RAY CHEST REASON FOR EXAM: Female, 78 years old. Chest pain. TECHNIQUE: PA and lateral views of the chest. COMPARISON: June 22, 2017. FINDINGS: There is no new focal consolidation. Sternal cerclage wires are present from a prior sternotomy. There appears to be in atrial appendage clip in place. The cardiac silhouette is within normal limits. Normal mediastinum and erasmo. Normal visualized pulmonary arteries. There is atherosclerotic calcification of the aortic arch and descending thoracic aorta. There are diffuse degenerative changes of the visualized thoracic spine. Normal visualized ribs, clavicles, and shoulders. There are surgical clips projecting over the axilla. There is no demonstrated abnormality of the visualized soft tissue structures of the upper abdomen. RAD/Chest PA and Lateral IMPRESSION: No acute cardiopulmonary process. Electronically Signed: Jessica Prakash MD at 16:52 EST Tel , Service support ,
== END ==
PROVIDERS: Family Provider Internal Medicine; PCP Internal Medicine; Referring Provider Nurse Practitioner Family; Visit Provider Nurse Practitioner Family
DX: I25.10 Atherosclerotic heart disease of native coronary artery without angina pectoris (principal); R07.9 Chest pain, unspecified; Z95.1 Presence of aortocoronary bypass graft; Z95.3 Presence of xenogenic heart valve
CPT/HCPCS: 71046

== ENCOUNTER → 2019-04-10 07:00 | Outpatient (CLI) | payer MEDICARE, SELFPAY ==
[2019-03-21 14:50] VITALS: BMI 28.8
--- NOTE | 2019-04-10 13:37 | STRESSREP_ITS ---
Stress Test Report Date: 04-10-19 Procedure: Pharmacologic stress nuclear imaging study Indications: Chest pain; CAD; CABG; aortic valve replacement Consent: Per the patient Procedure: The patient underwent pharmacologic (Regadenoson) evaluation with a peak heart rate of 126 beats per minute (88 %predicted maximal heart rate) and a peak blood pressure of 172/110 mmHg. The baseline ECG demonstrated normal sinus rhythm; incomplete left bundle branch block pattern. The peak pharmacologic ECG demonstrated a left bundle branch block pattern. There was a rare PVC during infusion and recovery. The patient experienced chest pain, abdominal pain, nausea, emesis, and headache during infusion and recovery with improvement status post nitroglycerin lezama blingual. The examination was discontinued secondary to completion of protocol. Impression: 1. Pharmacologic (Regadenoson) evaluation 2. Peak pharmacologic ECG with left bundle branch block pattern. 3. There was a rare PVC during infusion and recovery. 4. Nuclear images pending Myocardial perfusion imaging study: Technique: The patient was injected with 10.0 millicuries of technetium 99m Cardiolite and subsequently rest SPECT Cardiolite nuclear imaging was obtained in the horizontal long, vertical long, and short axis views. The patient underwent pharmacologic (Regadenoson) evaluation with a peak heart rate of 126 beats per minute (88 % percent predicted maximal heart rate) and a peak blood pressure of 172/110 mmHg. The patient was injected with 30.0 millicuries of technetium 99m Cardiolite and subsequently stress SPECT Cardiolite nuclear imaging was obtained in the horizontal long, vertical long, and short axis views. A gated Cardiolite study at peak stress was obtained. Interpretation: Rest and stress SPECT Cardiolite nuclear imaging status post realignment, normalization, and attenuation correction demonstrate relative uniform tracer uptake and myocardial perfusion appearing within normal limits. There is end systolic thickening and brightening. The gated Cardiolite study demonstrates myocardial thickening and inward wall motion. The reported LVEF is 77 %. Impression: 1. Rest and stress SPECT Cardiolite nuclear imaging demonstrate relative uniform tracer uptake and myocardial perfusion appearing within normal limits. 2. The gated Cardiolite study reports an LVEF of 77 %. Comment: The patient's case was discussed and reviewed with the patient's primary care physician-Dr. Singletary. This note was generated with LocalSortation software. It may contain incorrect words, spelling, and punctuation that were not noted in checking the note before signing.
== END ==
PROVIDERS: Family Provider Internal Medicine; PCP Internal Medicine; Referring Provider Nurse Practitioner Family; Visit Provider Nurse Practitioner Family
DX: I25.10 Atherosclerotic heart disease of native coronary artery without angina pectoris (principal); I48.0 Paroxysmal atrial fibrillation; I10 Essential (primary) hypertension; E78.00 Pure hypercholesterolemia, unspecified; I65.23 Occlusion and stenosis of bilateral carotid arteries; Z95.1 Presence of aortocoronary bypass graft; Z95.3 Presence of xenogenic heart valve; R07.9 Chest pain, unspecified
CPT/HCPCS: 78452; 93017; A9500; A4216; J2785

== ENCOUNTER → 2019-04-11 09:01 | Outpatient (CLI) | payer MEDICARE, SELFPAY ==
[2019-03-21 14:50] VITALS: BMI 28.8
[2019-04-11] VITALS (7 sets, daily range): BP systolic 132–163; BP diastolic 42–81; PULSE 70–81; RESP 16–18; TEMP 35.9–37.1; O2SAT 97–100; BMI 28.8
== END ==
PROVIDERS: Family Provider Internal Medicine; PCP Internal Medicine; Referring Provider Internal Medicine; Visit Provider Internal Medicine
DX: D64.9 Anemia, unspecified (principal)
CPT/HCPCS: 36415; 36430; 86850; 86900; 86901; 86920; 86922; J7040; P9016; A4216

== ENCOUNTER 2019-04-12 18:27 | Observation (INO) | payer MEDICARE, SELFPAY ==
[2019-04-11 09:34] VITALS: BMI 28.8
[2019-04-12] VITALS (7 sets, daily range): BP systolic 170–204; BP diastolic 66–80; PULSE 76–115; RESP 14–18; TEMP 36.7–36.8; O2SAT 98–99; BMI 29.9; BMI 29.4
--- NOTE | 2019-04-12 18:51 | RAD_ITS ---
STUDY: X-RAY CHEST REASON FOR EXAM: Female, 78 years old. PT STATED CHEST PRESSURE, HX OF HEART VALVE REPLACEMENT AND BYPASS SURG TECHNIQUE: AP COMPARISON: 03/21/2019 FINDINGS: Bilateral mastectomy with surgical clips in the axilla. The lungs are clear and expanded. There is no demonstrated pleural abnormality. Normal size heart. Sternal wires and mediastinal surgical clips compatible with prior CABG. Atrial appendage clip noted. Normal mediastinum and erasmo. Normal visualized pulmonary arteries. There is atherosclerotic calcification of the aortic arch with tortuosity. No acute bony process. There is no demonstrated abnormality of the visualized soft tissue structures of the upper abdomen. RAD/Chest 1 View (Portable) IMPRESSION: Stable, nonacute portable x-ray examination of the chest. Electronically Signed: Cristian Hickey MD ([place]) at 19:22 EST , Service support ,
--- NOTE | 2019-04-12 18:51 | EKG12_ITS ---
Test Reason : CP Blood Pressure : / mmHG Vent. Rate : 076 BPM Atrial Rate : 076 BPM P-R Int : 134 ms QRS Dur : 100 ms QT Int : 388 ms P-R-T Axes : 059 001 112 degrees QTc Int : 436 ms Sinus rhythm with occasional Premature ventricular complexes Possible Left atrial enlargement Septal infarct , age undetermined ST & T wave abnormality, consider lateral ischemia Abnormal ECG Confirmed by FAYE DELGADILLO, KAREN ([id number]), television news video editor CHRISTIN BARTHOLOMEW ([id number]) on 04/16/2019 11:33:31 AM Referred By: LISA Confirmed By:KAREN MCKINNEY MD
--- NOTE | 2019-04-12 18:59 | ED.DCSUM_ITS ---
- ER Visit Summary Date of Service: 04/12/19 Chief Complaint: Chest pain History of Present Illness: The patient is a 78 F presenting with chest pressure and tightness. She states she initially started having tightness in her chest. She had pain that radiated to the right side of her neck and her right face. She took 2 nitro and this improved her symptoms. She denies headache. She states she had blurry vision after taking nitro that has now resolved. She had associated shortness of breath. She had a blood transfusion yesterday due to anemia. Her Plavix was recently stopped. Physical Examination: Vitals are stable. Patient is afebrile. Alert no acute distress. HEENT exam is unremarkable. Neck is supple. Lungs are clear and equal bilaterally. Heart is regular rate and rhythm. Abdomen is soft nontender nondistended. Extremities are unremarkable. Skin is warm and dry. No focal neurologic deficit. Remainder of exam is unremarkable. Emergency Department Course and Treatment: Patient was given aspirin. EKG is sinus rhythm rate of 76 with PVCs. Chest x-ray shows no acute process. CBC shows hemoglobin 9.6. Chemistries show glucose 151, creatinine 1.13. Troponin is negative. Discussed with Dr. Aponte. Patient had a nuclear stress test 2 days ago. Following the nuclear stress she was found to be anemic and was transfused 2 units of blood. Patient will need upper endoscopy and possible heart catheterization. Discussed with Dr. Jimenez who is agreeable to upper endoscopy. Discussed with the hospitalist who will admit the patient. Disposition: Admission Impression: Chest pain This note was generated with [employer] dictation software. It may contain incorrect words, spelling, and punctuation that were not noted in review of the chart prior to signing ED Disposition - Plan for ED Patient: Referrals: Marilu Singletary MD [Primary Care Provider] -
[2019-04-12] MEDS: Aspirin 81 MG TAB.CHEW 324 MG PO (19:04)
[2019-04-12 19:08] LABS: Absolute Lymphocyte Count 1.76 X10^3/uL (0.83-4.51); Absolute Neutrophil Count 6.1 X10^3/uL (2.0-7.7); Basophil# 0.06 X10^3/uL; Basophil% 0.6 % (0-1); Eosinophil# 0.45 X10^3/uL; Eosinophils% 4.9 % (0-5); Hematocrit 32.4 % (37-47); Hemoglobin 9.6 g/dL (12.0-15.0); Lymphocyte # 1.76 X10^3/ul (4.0); Mean Corp Hgb Conc 29.6 g/dL (32-36); Mean Corpuscular Hgb 24.1 pg (27.0-32.0); Mean Corpuscular Volume 81.4 fL (81-99); Mean Platelet Vol. 9.2 fl (6.2-12.0); Monocyte# 0.82 X10^3/uL; Monocyte% 8.9 % (0-10); NRBC Flagged by Analyzer 0 % (0-5); Neutrophil # 6.12 X10^3/uL (2.7-7.7); Neutrophil % 66.3 % (47-70); Platelet Count 330 K/mm3 (150-450); RBC Distribution Width CV 17.1 % (11.6-14.6); Red Blood Count 3.98 M/mm3 (4.2-5.4); White Blood Count 9.2 K/mm3 (4.4-11.0)
[2019-04-12 19:51] LABS: Anion Gap 5 (5-15); BUN 14 mg/dL (7-18); BUN/Creat Ratio 12.4 RATIO (10-20); Calcium,Total 8.8 mg/dL (8.5-10.1); Chloride 107 mmol/L (98-107); Creatinine, Serum 1.13 mg/dL (0.55-1.02); EST Glomerular Filtration Rate 49 mL/min (>60); Est Glom Filt Rate - Afr Amer 60 mL/min (>60); Estimated Creatinine Clearance 32.45 ml/min; Glucose 151 mg/dL (74-106); Potassium 4.3 mmol/L (3.5-5.1); Sodium Level 141 mmol/L (136-145)
--- NOTE | 2019-04-12 21:29 | PCM.HP.STD ---
Problem List (1) Chest pain Status: Acute (2) Bilateral carotid bruits Status: Chronic (3) Bilateral carotid artery stenosis Status: Chronic (4) Type 2 diabetes mellitus Status: Chronic (5) TIA (transient ischemic attack) Status: Inactive (6) History of bilateral carotid endarterectomy Status: Resolved Comment: 1997,1998 (7) History of aortic valve replacement with bioprosthetic valve Status: Chronic Comment: 21mm Trifecta pericardial prosthesis (8) Nonrheumatic aortic (valve) stenosis Status: Chronic (9) Jayson's syndrome Status: Inactive (10) Pure hypercholesterolemia Status: Chronic (11) Paroxysmal atrial fibrillation Status: Chronic (12) Essential hypertension Status: Chronic (13) History of coronary artery bypass surgery Status: Chronic Comment: CABG x2- YADIRA to LAD, SVG to OM1 w/pulmonary vein isolation and isolation of the left atrial appendage 09/06/13 @ [facility] (14) Atherosclerotic heart disease of [place] coronary artery without angina pectoris Status: Chronic Qualifiers: [place] vs. transplanted heart: [place] heart Qualified Code(s): I25.10 - Atherosclerotic heart disease of [place] coronary artery without angina pectoris (15) Atypical chest pain Status: Acute (16) SOB (shortness of breath) on exertion Status: Chronic (17) Sleep disorder breathing Status: Chronic (18) GERD (gastroesophageal reflux disease) Status: Chronic (19) Psoriasis Status: Chronic (20) Effusion, left knee Status: Chronic (21) Osteoarthritis Status: Chronic (22) Sleep disorder Status: Chronic (23) Tobacco abuse Status: Chronic (24) DENVER (obstructive sleep apnea) Status: Chronic History of Present Illness Date of Admission: 04/13/19 Chief Complaint: Chest pain The patient is a 78 year old F with a significant history of CAD; GERD; hypertension; nonrheumatic aortic valve stenosis; obstructive sleep apnea; paroxysmal A. fib who presents emergency department with chest pain. She describes the chest pain as a tightness. The chest pain started few hours before presentation. Her pain is predominantly located at the right neck; and her right head; her right shoulder and her right chest. Patient is unable to quantify her chest pain. He describes her chest pain as a tightness. Walking made the pain worse. She denies any relieving factors. Patient had a stress test 2 days ago. While having a stress test she had chest pain and was given nitroglycerin which took her pain away. Because her hemoglobin was low at 7.4 patient was taken off her Plavix and her aspirin which was twice daily was changed to once daily. On this new presentation at the emergency department hemoglobin was 9.6. Emergent department doctor discussed the case with Dr. Aponte who recommended the patient get an EGD and then further cardiac work-up to be considered. Past Medical History Past Medical History (Chronic Problems): Chronic Problems (Last Reviewed 04/13/19 @ 09:20 by Russ Rooney MD) Bilateral carotid bruits (Chronic) Bilateral carotid artery stenosis (Chronic) Type 2 diabetes mellitus (Chronic) History of aortic valve replacement with bioprosthetic valve (Chronic ~09/06/13) 21mm Trifecta pericardial prosthesis Nonrheumatic aortic (valve) stenosis (Chronic) Pure hypercholesterolemia (Chronic) Paroxysmal atrial fibrillation (Chronic) Essential hypertension (Chronic) History of coronary artery bypass surgery (Chronic) CABG x2- YADIRA to LAD, SVG to OM1 w/pulmonary vein isolation and isolation of the left atrial appendage 09/06/13 @ [facility] Atherosclerotic heart disease of [place] coronary artery without angina pectoris (Chronic) SOB (shortness of breath) on exertion (Chronic) Sleep disorder breathing (Chronic) GERD (gastroesophageal reflux disease) (Chronic) Psoriasis (Chronic) Effusion, left knee (Chronic) Osteoarthritis (Chronic) Sleep disorder (Chronic) Tobacco abuse (Chronic) DEN[place] (obstructive sleep apnea) (Chronic) Medical History: Medical History (Last Reviewed 04/13/19 @ 09:20 by Russ Rooney MD) Bilateral carotid bruits (Chronic) R09.89 Bilateral carotid artery stenosis (Chronic) I65.23 Type 2 diabetes mellitus (Chronic) E11.9 TIA (transient ischemic attack) (Chronic) G45.9 Nonrheumatic aortic (valve) stenosis (Acute) 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 Pure hypercholesterolemia (Chronic) E78.00 Paroxysmal atrial fibrillation (Chronic) I48.0 Essential hypertension (Chronic) I10 Atherosclerotic heart disease of [place] coronary artery without angina pectoris (Chronic) I25.10 Atypical chest pain (Acute) R07.89 SOB (shortness of breath) on exertion (Chronic) R06.02 Sleep disorder breathing (Chronic) G47.30 GERD (gastroesophageal reflux disease) (Chronic) K21.9 Psoriasis (Chronic) L40.9 Effusion, left knee (Chronic) M25.462 Osteoarthritis (Chronic) M19.90 Sleep disorder (Chronic) G47.9 Tobacco abuse (Chronic) Z72.0 [place] (obstructive sleep apnea) (Chronic) G47.33 CAD (coronary artery disease) (Inactive) I25.10 Carotid stenosis (Inactive) I65.29 HTN (hypertension) (Inactive) I10 PND (post-nasal drip) (Inactive) R09.82 Allergies Sulfa (Sulfonamide Antibiotics) Allergy (Severe, Verified 03/21/19 14:50) HEART RACING Latex, Natural Rubber Allergy (Verified 03/21/19 14:50) Rash amoxicillin [From Augmentin] Adverse Reaction (Verified 03/21/19 14:50) Nausea atorvastatin [From Lipitor] Adverse Reaction (Verified 03/21/19 14:50) Other CRAMPS clavulanic acid [From Augmentin] Adverse Reaction (Verified 03/21/19 14:50) Nausea Iodinated Contrast Media [CONTRASTS] Adverse Reaction (Verified 03/21/19 14:50) Other LOCKJAW niacin [From Niaspan Extended-Release] Adverse Reaction (Verified 03/21/19 14:50) Other FLUSH rosuvastatin [From Crestor] Adverse Reaction (Verified 03/21/19 14:50) Other CRAMPS turkey grease Adverse Reaction (Uncoded 10/05/18 14:15) Rash Home Medications: Ambulatory Orders Medication Instructions Recorded Cilostazol [Pletal] 50 mg PO BIDAC 09/01/13 Ezetimibe [Zetia] 10 mg PO QHS 09/01/13 Pantoprazole Sodium [Protonix] 40 mg PO BID 09/01/13 Aspirin E.C. [Ecotrin] 81 mg PO DAILY 01/24/16 metoprolol tartrate 100 mg tablet 100 mg PO BID #180 tab 10/05/18 nitroglycerin 0.4 mg sublingual 0.4 mg SUBLINGUAL Q5M PRN #25 tab 10/05/18 tablet Acetaminophen [Tylenol Extra 500 mg PO DAILY PRN PRN 04/12/19 Strength] Niacin (Inositol Niacinate) 1,000 mg PO DAILY 04/12/19 [Niacin 500 mg Capsule] Surgical History: Surgical History (Last Reviewed 04/13/19 @ 09:21 by Russ Rooney MD) History of bilateral carotid endarterectomy (Resolved) Z98.890 1997,1998 History of aortic valve replacement with bioprosthetic valve (Chronic) Onset Date: ~09/06/13 Z95.3 21mm Trifecta pericardial prosthesis History of coronary artery bypass surgery (Chronic) Z95.1 CABG x2- YADIRA to LAD, SVG to OM1 w/pulmonary vein isolation and isolation of the left atrial appendage 09/06/13 @ [facility] History of left mastectomy Onset Date: ~1998 Z90.12 simple, phrophylactic 1998 History of right mastectomy Onset Date: ~1998 Z90.11 Mod Radical History of tubal ligation Z98.51 Smoking Status: Current every day smoker Tobacco Use: Cigarettes - *Family History Paternal Family History: Family History (Last Reviewed 04/13/19 @ 09:21 by Russ Rooney MD) Mother Heart disease Cancer Father Heart disease Cancer Sister Cancer History Items: No pertinent history Review of Systems Constitutional: Denies: Chills, Fever, Weight Change HEENT: Denies: Head Aches, Sinus Congestion, Sinus Drainage Cardiovascular: Reports: Chest Pain. Denies: Palpitations Respiratory: Denies: Cough, Shortness of breath at rest, Sputum production Gastrointestinal: Reports: Abdominal Pain. Denies: Nausea, Vomiting Genitourinary: Denies: Dysuria Musculoskeletal: Denies: Joint Pain, Joint Tenderness Skin: Denies: Rash, Wounds Neurological: Denies: Numbness, Tingling, Focal weakness Psychiatric: Denies: Anxiety, Depression, Homicidal Ideations, Suicidal Ideations Hematologic/ Lymphatic: Denies: Easy Bruising, Easy Bleeding VTE Information - Inpt Only VTE Present on Admission: No VTE Mechan Device Prophylaxis: SCD's VTE Pharm Prophylaxis ordered?: No Patient Problems: Active and Suspected Problems (Last Reviewed 04/13/19 @ 09:20 by Russ Rooney MD) Chest pain (Acute) - Physical Exam Vitals/I&O's: Vital Signs Temp Pulse Resp BP Pulse Ox 98.3 F 82 16 170/78 H 98 04/12/19 18:27 04/12/19 21:00 04/12/19 21:00 04/12/19 21:00 04/12/19 21:00 Oxygen Delivery Method Room Air Weight: 74.2 kg Body Mass Index (BMI) 29.9 Finger Stick Blood Glucose 195 General: Alert, Oriented x3, Cooperative HEENT: Atraumatic, PERRLA, EOMI, Normocephalic Neck: Supple, No JVD, Negative Carotid Bruits Lungs: Clear to auscultation, Normal air movement Cardiovascular: Regular rate, - - Click heart sounds Abdomen: Bowel Sounds Present, Soft, Non Tender Extremities: No edema, Capillary Refill Less than 3 Seconds Skin: No rashes, No breakdown Musculoskeletal: No Tenderness to Palpation of Joints or Extremities Neurological: Cranial nerves II-XII grossly intact Psych/Mental Status: - - Excessive talkativeness and does not produced direct answers. Laboratory Results 04/12/19 18:55: WBC 9.2, RBC 3.98 L, Hgb 9.6 L, Hct 32.4 L, MCV 81.4, MCH 24.1 L, MCHC 29.6 L, RDW Std Deviation 50.0 H, RDW Coeff of Velasquez 17.1 H, Plt Count 330, MPV 9.2, Immature Gran % (Auto) 0.300, Neut % (Auto) 66.3, Lymph % (Auto) 19.0, [place] % (Auto) 8.9, Eos % (Auto) 4.9, Baso % (Auto) 0.6, Absolute Neuts (auto) 6.1, Absolute Lymphs (auto) 1.76, Nucleated RBC % 0 04/12/19 18:55: Sodium 141, Potassium 4.3, Chloride 107, Carbon Dioxide 29.0, Anion Gap 5, BUN 14, Creatinine 1.13 H, Estim Creat Clear Calc 32.45, Est GFR (MDRD) Af Amer 60, Est GFR (MDRD) Non-Af 49 L, BUN/Creatinine Ratio 12.4, Glucose 151 H, Calcium 8.8, Troponin I < 0.015 Assessment/Plan All Active Problems (Last Reviewed 04/13/19 @ 09:20 by Russ Rooney MD) Chest pain (Acute) History of bilateral carotid endarterectomy (Resolved) Atypical chest pain (Acute) The patient is a 78 year old F with a significant history of CAD; GERD; hypertension; nonrheumatic aortic valve stenosis; obstructive sleep apnea; paroxysmal A. fib who presents emergency department with chest pain Chest pain Place on a monitored bed at [facility] CXR independently reviewed confirms no acute cardiopulmonary process. EKG independently reviewed confirms Q waves in V1 V2 which is unchanged. ASA 81 mg p.o. daily daily continued SL NTG 0.4 mg prn as needed for chest pain Serial cardiac enzymes Stat EKG as needed for chest pain Per recommendation from cardiology will consult general surgery for endoscopy. Emergent department doctor discussed the case with general surgery empiric mentations patient put on clear liquid diet and later n.p.o. prepare for endoscopy. Patient is on home Protonix 40 mg p.o. twice daily and emergency department upper recommendation from cardiology patient was given Protonix 40 mg IV. Continue patient on Protonix 40 mg IV twice daily. So far plan is after an endoscopy further cardiology work-up will be continued. Metoprolol continued DVT prophylaxis SCD Code Visit OBSV E&M: 94228 Initial observation care L3
--- NOTE | 2019-04-12 22:29 | EKG12_ITS ---
Test Reason : CP ADMIT Blood Pressure : / mmHG Vent. Rate : 077 BPM Atrial Rate : 077 BPM P-R Int : 158 ms QRS Dur : 096 ms QT Int : 384 ms P-R-T Axes : 070 020 101 degrees QTc Int : 434 ms Normal sinus rhythm Septal infarct , age undetermined Abnormal ECG No previous ECGs available Confirmed by CHRISTINA DELGADILLO, JANE ([id number]), art editor FABIEN COVARRUBIAS ([id number]) on 04/20/2019 10:38:20 AM Referred By: DR RIVER Confirmed By:VARUN VASQUEZ MD
[2019-04-12] MEDS: 0.9% Saline Lock 10 ML Syringe IV (23:30)
[2019-04-12] MEDS: Ezetimibe 10 MG Tablet PO (23:31)
[2019-04-12] MEDS: Cilostazol 50 MG Tablet PO (23:31)
[2019-04-12] MEDS: Metoprolol Tartrate 100 MG Tablet PO (23:32)
[2019-04-13] VITALS (14 sets, daily range): BP systolic 120–158; BP diastolic 51–71; PULSE 72–82; RESP 16–18; TEMP 36.7–37.2; O2SAT 93–98
--- NOTE | 2019-04-13 | EGD_PTH ---
PATIENT: SAMMY SOLOMON LOC: [facility] U#:[id number] AGE/SX: 78/F ROOM: [facility] RE04/12/[address]: Dr. Carolann Naranjo MD : [id number] BED: 1 DIS: 04/14/2019 SPEC #: [id number] RECD: 04/13/19 17:23 STATUS: JANIS REQ #: [id number] KEMAL: 04/13/19 00:[address]: Dona Crump DEPT: SURGICAL PATHOLOGY RECD BY: Hao Montes ENTERED: 04/16/19 12:05 SP TYPE: EGD BIOPSY OTHR DR: MD Dr. Marilu Rosas MD Dr. Joseph Agyepong, MD Dr. Nana Yaa Koram, MD Dr. Tamera Robotham, MD Tissues: A - Stomach, NOS B - Gastric mucous membrane Procedures: Special Stain Group II Surgery Specimen Level IV Alcian Blue/PAS (control) Comments: @ Ordering doctor for DARNELL edited from to @ by RGOOD at 04/16/19 1311 @ Submitting doctor edited from to @ by RGOOD at 04/16/19 1317 HEADER OPERATION: EGD ([facility]) PRE-OP DIAGNOSIS: Anemia TISSUE SUBMITTED: A - Body of stomach biopsy for H. pylori and pathology, B - GE junction biopsy MICROSCOPIC DIAGNOSIS A. Body of stomach, biopsy: Moderate chronic gastritis. See microscopic description and comment. B. GE junction, biopsy: A fragment of gastric mucosa with mild to moderate chronic inflammation, congestion and hemorrhage. Intestinal metaplasia (goblet cell metaplasia) is not identified. Minute lymphoid aggregates, favor benign. See comment. SJ:bruno 04/17/19 COMMENT A. The results of immunohistochemistry for Helicobacter pylori will be reported separately ([id number]). B. Alcian blue/PAS stain with matched control is used in the evaluation of the specimen. MICROSCOPIC DESCRIPTION Slides are reviewed. A. The specimen shows fragments of gastric mucosa with chronic inflammatory cell infiltrates in the lamina propria consisting of lymphocytes and plasma cells, consistent with moderate chronic gastritis. Focal mucosal congestion and hemorrhage are also noted. GROSS DESCRIPTION A - Received in fixative is one container labeled with the patient's name and designated body of stomach biopsy. The specimen consists of one irregular fragment of light bah soft tissue that measures 0.4 x 0.2 x 0.1 cm. The specimen is totally submitted in one cassette. B - Received in fixative is one container labeled with the patient's name and designated GE junction biopsy. The specimen consists of one irregular fragment of light bah soft tissue that measures 0.5 x 0.2 x 0.1 cm. The specimen is totally submitted in one cassette. / SJ:rg 04/16/19 TC:3 CPT: 01446 x2, 56020
[2019-04-13 06:17] LABS: Magnesium 2.2 mg/dL (1.6-2.6)
[2019-04-13] MEDS: Cilostazol 50 MG Tablet PO ×2 (06:39→17:34)
[2019-04-13 06:55] LABS: Absolute Lymphocyte Count 1.63 X10^3/uL (0.83-4.51); Absolute Neutrophil Count 5.3 X10^3/uL (2.0-7.7); Basophil# 0.05 X10^3/uL; Basophil% 0.6 % (0-1); Eosinophil# 0.41 X10^3/uL; Hematocrit 31.8 % (37-47); Hemoglobin 9.5 g/dL (12.0-15.0); Lymphocyte # 1.63 X10^3/ul (4.0); Mean Corp Hgb Conc 29.9 g/dL (32-36); Mean Corpuscular Hgb 24.1 pg (27.0-32.0); Mean Corpuscular Volume 80.7 fL (81-99); Mean Platelet Vol. 9.3 fl (6.2-12.0); Monocyte# 0.74 X10^3/uL; Monocyte% 9.1 % (0-10); NRBC Flagged by Analyzer 0 % (0-5); Neutrophil # 5.27 X10^3/uL (2.7-7.7); Neutrophil % 64.9 % (47-70); Platelet Count 333 K/mm3 (150-450); RBC Distribution Width CV 17.1 % (11.6-14.6); RBC Distribution Width SD 50.4 fl (35.1-43.9); Red Blood Count 3.94 M/mm3 (4.2-5.4); White Blood Count 8.1 K/mm3 (4.4-11.0)
--- NOTE | 2019-04-13 07:37 | PCM.CONS.GEN ---
Reason for Consult Date of Consultation: 04/13/19 History of Present Illness: The patient is a 78 year old F presented to the ER due to tightness chestnuts which did repeat improved with some nitro. Patient saw her PCP on Tuesday is noted to have a hemoglobin of 7.4 at her PCPs office. Patient is Plavix was stopped and patient's Protonix at 40 mg p.o. daily was increased to twice daily. Patient denies any symptoms of heartburn or reflux prior to Tuesday or after Tuesday. Patient did undergo a stress test on Tuesday and again have recurrent chest pain during the test which did appear otherwise normal. Pain did report improved with nitro. Patient was given 2 units packed red blood cells on Tuesday patient's current hemoglobin is 9.5 on admit. Patient states she has daily light brown bowel movements denies any blood. Patient states her last colonoscopy was 7 years ago and was negative. Patient states her last EGD was prior greater than 10 years ago and is due to a duodenal ulcer she did have increased stress at that time. Patient was also given Carafate during that time as well. Plan is for patient to get on EGD prior to any cardiac cath due to the anemia. Past Medical History Past Medical History (Chronic Problems): Chronic Problems (Last Reviewed 10/05/18 @ 14:23 by Dayan Singh) Bilateral carotid bruits (Chronic) Bilateral carotid artery stenosis (Chronic) Type 2 diabetes mellitus (Chronic) TIA (transient ischemic attack) (Chronic) History of aortic valve replacement with bioprosthetic valve (Chronic ~09/06/13) 21mm Trifecta pericardial prosthesis Pure hypercholesterolemia (Chronic) Paroxysmal atrial fibrillation (Chronic) Essential hypertension (Chronic) History of coronary artery bypass surgery (Chronic) CABG x2- YADIRA to LAD, SVG to OM1 w/pulmonary vein isolation and isolation of the left atrial appendage 09/06/13 @ [facility] Atherosclerotic heart disease of [place] coronary artery without angina pectoris (Chronic) SOB (shortness of breath) on exertion (Chronic) Sleep disorder breathing (Chronic) GERD (gastroesophageal reflux disease) (Chronic) Psoriasis (Chronic) Effusion, left knee (Chronic) Osteoarthritis (Chronic) Sleep disorder (Chronic) Tobacco abuse (Chronic) [place] (obstructive sleep apnea) (Chronic) Medical History: Medical History (Last Reviewed 10/05/18 @ 14:23 by Dayan Singh) Bilateral carotid bruits (Chronic) R09.89 Bilateral carotid artery stenosis (Chronic) I65.23 Type 2 diabetes mellitus (Chronic) E11.9 TIA (transient ischemic attack) (Chronic) G45.9 Nonrheumatic aortic (valve) stenosis (Acute) 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 Pure hypercholesterolemia (Chronic) E78.00 Paroxysmal atrial fibrillation (Chronic) I48.0 Essential hypertension (Chronic) I10 Atherosclerotic heart disease of [place] coronary artery without angina pectoris (Chronic) I25.10 Atypical chest pain (Acute) R07.89 SOB (shortness of breath) on exertion (Chronic) R06.02 Sleep disorder breathing (Chronic) G47.30 GERD (gastroesophageal reflux disease) (Chronic) K21.9 Psoriasis (Chronic) L40.9 Effusion, left knee (Chronic) M25.462 Osteoarthritis (Chronic) M19.90 Sleep disorder (Chronic) G47.9 Tobacco abuse (Chronic) Z72.0 [place] (obstructive sleep apnea) (Chronic) G47.33 CAD (coronary artery disease) (Inactive) I25.10 Carotid stenosis (Inactive) I65.29 HTN (hypertension) (Inactive) I10 PND (post-nasal drip) (Inactive) R09.82 Allergies Sulfa (Sulfonamide Antibiotics) Allergy (Severe, Verified 04/12/19 22:47) HEART RACING Latex, Natural Rubber Allergy (Verified 04/12/19 22:47) Rash, psioriasis amoxicillin [From Augmentin] Adverse Reaction (Verified 04/12/19 22:47) Nausea atorvastatin [From Lipitor] Adverse Reaction (Verified 04/12/19 22:47) Other CRAMPS clavulanic acid [From Augmentin] Adverse Reaction (Verified 04/12/19 22:47) Nausea Iodinated Contrast Media [CONTRASTS] Adverse Reaction (Verified 04/12/19 22:47) Other LOCKJAW niacin [From Niaspan Extended-Release] Adverse Reaction (Verified 04/12/19 22:47) Other FLUSH rosuvastatin [From Crestor] Adverse Reaction (Verified 04/12/19 22:47) Other CRAMPS turkey grease Adverse Reaction (Uncoded 04/12/19 22:47) Rash Home Medications: Ambulatory Orders Medication Instructions Recorded Cilostazol [Pletal] 50 mg PO BIDAC 09/01/13 Ezetimibe [Zetia] 10 mg PO QHS 09/01/13 Pantoprazole Sodium [Protonix] 40 mg PO BID 09/01/13 Aspirin E.C. [Ecotrin] 81 mg PO DAILY 01/24/16 metoprolol tartrate 100 mg tablet 100 mg PO BID #180 tab 10/05/18 nitroglycerin 0.4 mg sublingual 0.4 mg SUBLINGUAL Q5M PRN #25 tab 10/05/18 tablet Acetaminophen [Tylenol Extra 500 mg PO DAILY PRN PRN 04/12/19 Strength] Niacin (Inositol Niacinate) 1,000 mg PO DAILY 04/12/19 [Niacin 500 mg Capsule] Surgical History: Surgical History (Last Reviewed 10/05/18 @ 14:23 by Dayan Singh) History of bilateral carotid endarterectomy (Resolved) Z98.890 1997,1998 History of aortic valve replacement with bioprosthetic valve (Chronic) Onset Date: ~09/06/13 Z95.3 21mm Trifecta pericardial prosthesis History of coronary artery bypass surgery (Chronic) Z95.1 CABG x2- YADIRA to LAD, SVG to OM1 w/pulmonary vein isolation and isolation of the left atrial appendage 09/06/13 @ [facility] History of left mastectomy Onset Date: ~1998 Z90.12 simple, phrophylactic 1998 History of right mastectomy Onset Date: ~1998 Z90.11 Mod Radical History of tubal ligation Z98.51 Smoking Status: Current some day smoker - *Family History Paternal Family History: Family History (Last Reviewed 10/05/18 @ 14:23 by Dayan Singh) Mother Heart disease Cancer Father Heart disease Cancer Sister Cancer History Items: No pertinent history Review of Systems Constitutional: Denies: Anorexia HEENT: Denies: Difficulty Swallowing Cardiovascular: Reports: Chest Tightness - Had go before she went to the ER denies any now Respiratory: Denies: Shortness of Breath Gastrointestinal: Denies: Abdominal Pain, Nausea, Vomiting - Physical Exam Vitals/I&O's: Vital Signs Temp Pulse Resp BP Pulse Ox 98.3 F 79 16 148/64 H 98 04/13/19 04:29 04/13/19 04:29 04/13/19 04:29 04/13/19 04:29 04/13/19 04:29 Oxygen Delivery Method Room Air Weight: 160 lb 11.472 oz Body Mass Index (BMI) 29.4 Finger Stick Blood Glucose 195 Intake and Output for Last 24 Hours 04/11/19 04/12/19 04/13/19 23:59 23:59 23:59 Intake Total 240 / 240 Balance 240 / 240 General: Alert, Oriented x3, Cooperative, No apparent distress HEENT: Atraumatic Lungs: Normal air movement Cardiovascular: Regular rate Abdomen: Soft, Non Tender, Non-Distended Extremities: No clubbing, No cyanosis, No edema Neurological: Cranial nerves II-XII grossly intact Psych/Mental Status: Normal Affect Laboratory Results 04/12/19 18:55: WBC 9.2, RBC 3.98 L, Hgb 9.6 L, Hct 32.4 L, MCV 81.4, MCH 24.1 L, MCHC 29.6 L, RDW Std Deviation 50.0 H, RDW Coeff of [place] 17.1 H, Plt Count 330, MPV 9.2, Immature Gran % (Auto) 0.300, Neut % (Auto) 66.3, Lymph % (Auto) 19.0, [place] % (Auto) 8.9, Eos % (Auto) 4.9, Baso % (Auto) 0.6, Absolute Neuts (auto) 6.1, Absolute Lymphs (auto) 1.76, Nucleated RBC % 0 04/12/19 18:55: Sodium 141, Potassium 4.3, Chloride 107, Carbon Dioxide 29.0, Anion Gap 5, BUN 14, Creatinine 1.13 H, Estim Creat Clear Calc 32.45, Est GFR (MDRD) Af Amer 60, Est GFR (MDRD) Non-Af 49 L, BUN/Creatinine Ratio 12.4, Glucose 151 H, Calcium 8.8, Troponin I < 0.015 04/12/19 22:20: Troponin I < 0.015 04/13/19 00:50: Troponin I < 0.015 04/13/19 00:50: Magnesium 2.2 04/13/19 06:22: WBC 8.1, RBC 3.94 L, Hgb 9.5 L, Hct 31.8 L, MCV 80.7 L, MCH 24.1 L, MCHC 29.9 L, RDW Std Deviation 50.4 H, RDW Coeff of [place] 17.1 H, Plt Count 333, MPV 9.3, Immature Gran % (Auto) 0.400, Neut % (Auto) 64.9, Lymph % (Auto) 20.0, [place] % (Auto) 9.1, Eos % (Auto) 5.0, Baso % (Auto) 0.6, Absolute Neuts (auto) 5.3, Absolute Lymphs (auto) 1.63, Nucleated RBC % 0 Current Medications Acetaminophen (Tylenol) 500 mg PO DAILY PRN PRN PRN Reason: Pain Score 1-10/10 Aspirin (Ecotrin) 81 mg PO DAILY@0800 [facility] Cilostazol (Pletal) 50 mg PO BIDAC [facility] Last Admin: 04/13/19 06:39 Dose: 50 mg Documented by: Ezetimibe (Zetia) 10 mg PO QHS [facility] Glucagon () 1 mg IM .X1 PRN PRN Reason: Hypoglycemia Pantoprazole Sodium 40 mg/ (Sodium Chloride) 110 mls @ 330 mls/hr IV Q12 [facility] Sodium Chloride () 250 mls @ 15 mls/hr IV .[id number] PRN PRN Reason: Saline Flush Sodium Chloride () 250 mls @ 15 mls/hr IV .[id number] PRN PRN Reason: Additional IVPB Infusion Melatonin (Melatonin) 3 mg PO QHS PRN PRN PRN Reason: INSOMNIA Metoprolol Tartrate (Lopressor (Beta Johnathon)) 100 mg PO BID [facility] Last Admin: 04/12/19 23:32 Dose: 100 mg Documented by: Nitroglycerin (Nitrostat) 0.4 mg SUBLINGUAL Q5M PRN PRN Reason: CARDIAC/CHEST PAIN Ondansetron HCl (Zofran) 4 mg IV Q8H PRN PRN PRN Reason: NAUSEA/VOMITING Sodium Chloride () 10 - 40 ml IV UD PRN PRN Reason: SALINE FLUSH Last Admin: 04/12/19 23:30 Dose: 10 ml Documented by: Assessment/Plan All Active Problems (Last Reviewed 10/05/18 @ 14:23 by Dayan Singh) History of bilateral carotid endarterectomy (Resolved) Nonrheumatic aortic (valve) stenosis (Acute) Jayson's syndrome (Acute) Atypical chest pain (Acute) 78-year-old female with anemia status post 2 units packed red blood cells on Tuesday after hemoglobin 7.4 on Tuesday at PCPs office?current hemoglobin 9.5, stress test on Tuesday with some chest pain during the test. 1. I have discussed the above with the patient. I have offered the patient EGD for evaluation. Will be sometime this afternoon. I have explained the risks/benefits of the procedure and described the procedure. I have discussed the risks with the patient, including but not limited to: infection, bleeding, perforation of the GI tract requiring emergency surgery, inability to complete the procedure, injury to any internal organs, complications of anesthesia, etc. - the patient understands and agrees to proceed. I have answered all the patient's questions to the patient's satisfaction and the patient has no further questions. 2. Continue IV Protonix. Patient states she is also on Protonix once a day then on Tuesday her PCP did up it to twice a day. Dona Crump M.D. Pager: [phone] [facility] [address] [place] [address], [facility], [address] [place] [address] Office: [phone] Code Visit Inpatient E&M: 62209 Init Hosp L1
--- NOTE | 2019-04-13 07:56 | PCM.CONS.C ---
Reason for Consult History of Present Illness: The patient is a 78 year old F who presented to the emergency room with complaints of chest discomfort. She had previously been seen by her primary physician and had a pharmacologic stress test ordered earlier on during the week. It was reportedly negative. Blood work that had been done reportedly demonstrated a hemoglobin of 7.4 and she was in the process of being worked up, she did receive 2 units of packed red blood cells and had her aspirin dose reduced. She presented to the hospital with the above and cardiology was consulted to see her. She has a history of underlying CAD, CABG, valvular heart disease with aortic valve stenosis status post aortic valve replacement-bioprosthetic, cardiac dysrhythmia with report based on past medical records of paroxysmal atrial fibrillation as well as ventricular arrhythmia , bilateral carotid artery disease status post bilateral carotid endarterectomies, hyperlipidemia, and hypertension. Has not had any further chest discomfort since she has been in the hospital. Past Medical History Allergies/Adverse Reactions: Allergies Sulfa (Sulfonamide Antibiotics) Allergy (Severe, Verified 04/12/19 22:47) HEART RACING Latex, Natural Rubber Allergy (Verified 04/12/19 22:47) Rash, psioriasis amoxicillin [From Augmentin] Adverse Reaction (Verified 04/12/19 22:47) Nausea atorvastatin [From Lipitor] Adverse Reaction (Verified 04/12/19 22:47) Other CRAMPS clavulanic acid [From Augmentin] Adverse Reaction (Verified 04/12/19 22:47) Nausea Iodinated Contrast Media [CONTRASTS] Adverse Reaction (Verified 04/12/19 22:47) Other LOCKJAW niacin [From Niaspan Extended-Release] Adverse Reaction (Verified 04/12/19 22:47) Other FLUSH rosuvastatin [From Crestor] Adverse Reaction (Verified 04/12/19 22:47) Other CRAMPS turkey grease Adverse Reaction (Uncoded 04/12/19 22:47) Rash Home Medications: Ambulatory Orders Medication Instructions Recorded Cilostazol [Pletal] 50 mg PO BIDAC 09/01/13 Ezetimibe [Zetia] 10 mg PO QHS 09/01/13 Pantoprazole Sodium [Protonix] 40 mg PO BID 09/01/13 Aspirin E.C. [Ecotrin] 81 mg PO DAILY 01/24/16 metoprolol tartrate 100 mg tablet 100 mg PO BID #180 tab 10/05/18 nitroglycerin 0.4 mg sublingual 0.4 mg SUBLINGUAL Q5M PRN #25 tab 10/05/18 tablet Acetaminophen [Tylenol Extra 500 mg PO DAILY PRN PRN 04/12/19 Strength] Niacin (Inositol Niacinate) 1,000 mg PO DAILY 04/12/19 [Niacin 500 mg Capsule] Past Medical History (Chronic Problems): Chronic Problems (Last Reviewed 10/05/18 @ 14:23 by Dayan Singh) Bilateral carotid bruits (Chronic) Bilateral carotid artery stenosis (Chronic) Type 2 diabetes mellitus (Chronic) TIA (transient ischemic attack) (Chronic) History of aortic valve replacement with bioprosthetic valve (Chronic ~09/06/13) 21mm Trifecta pericardial prosthesis Pure hypercholesterolemia (Chronic) Paroxysmal atrial fibrillation (Chronic) Essential hypertension (Chronic) History of coronary artery bypass surgery (Chronic) CABG x2- YADIRA to LAD, SVG to OM1 w/pulmonary vein isolation and isolation of the left atrial appendage 09/06/13 @ [facility] Atherosclerotic heart disease of [place] coronary artery without angina pectoris (Chronic) SOB (shortness of breath) on exertion (Chronic) Sleep disorder breathing (Chronic) GERD (gastroesophageal reflux disease) (Chronic) Psoriasis (Chronic) Effusion, left knee (Chronic) Osteoarthritis (Chronic) Sleep disorder (Chronic) Tobacco abuse (Chronic) [place] (obstructive sleep apnea) (Chronic) - *Family History Paternal Family History: Family History (Last Reviewed 10/05/18 @ 14:23 by Dayan Singh) Mother Heart disease Cancer Father Heart disease Cancer Sister Cancer History Items: No pertinent history Smoking Status: Current some day smoker Alcohol: None Drugs: None Review of Systems - Review of Systems General: Denies: Fever, Night Sweats, Fatigue HEENT: Denies: Vision Change Cardiovascular: Reports: Chest Discomfort. Denies: Shortness of Breath, Orthopnea, PND, Peripheral Edema, Palpitations, Lightheadedness, Dizziness, Near Syncope, Syncope Respiratory: Denies: Cough, Sputum Production, Hemoptysis Gastrointestinal: Denies: Hematemesis, Hematochezia, Melena Genitourinary: Denies: Dysuria, Hematuria Muscoloskeletal: Denies: Myalgias Skin: Denies: Rash Neurological: Denies: Dizziness Psychiatric: Denies: Anxiety Endocrine: Denies: Heat Intolerance Hematologic/ Lymphatic: Reports: Anemia Subjectve: Pleasant lady in no distress Objective: Vital Signs Temp Pulse Resp BP Pulse Ox 98.3 F 72 16 148/64 H 98 04/13/19 04:29 04/13/19 07:00 04/13/19 04:29 04/13/19 04:29 04/13/19 04:29 Oxygen Delivery Method Room Air Weight: 160 lb 11.472 oz Body Mass Index (BMI) 29.4 Finger Stick Blood Glucose 195 Intake and Output for Last 24 Hours 04/11/19 04/12/19 04/13/19 23:59 23:59 23:59 Intake Total / 265 240 / 240 Balance / 265 240 / 240 General: Awake, Alert, Oriented x 3 HEENT: PERRL, EOMI, Sclera Non Icteric, Pallor Neck: Supple, Good ROM, No Lymph Node Enlargement Lungs: Clear to auscultation Cardiovascular: Regular Rhythm, Normal S1, Normal S2, No Murmurs, No Rubs, No Gallops Vascular: No Carotid Bruits, Normal Femoral Pulses, Normal Radial Pulses, Normal Dorsalis Pedal Pulse, Normal Posterior Tibial Pulses Abdomen: Bowel Sounds Present, Soft, Non Tender, No HSM, No Organomegaly Extremities: No Cyanosis, No Clubbing, No edema Musculoskeletal: No Erythema Skin: No Rashes Neurological: No Focal Motor or Sensory Deficit Psych/Mental Status: Appropriate 04/12/19 18:55: WBC 9.2, RBC 3.98 L, Hgb 9.6 L, Hct 32.4 L, MCV 81.4, MCH 24.1 L, MCHC 29.6 L, Plt Count 330, MPV 9.2, Immature Gran % (Auto) 0.300, Neut % (Auto) 66.3, Lymph % (Auto) 19.0, [place] % (Auto) 8.9, Eos % (Auto) 4.9, Baso % (Auto) 0.6, Absolute Neuts (auto) 6.1, Nucleated RBC % 0 04/12/19 18:55: Sodium 141, Potassium 4.3, Chloride 107, Carbon Dioxide 29.0, Anion Gap 5, BUN 14, Creatinine 1.13 H, Est GFR (MDRD) Af Amer 60, Est GFR (MDRD) Non-Af 49 L, BUN/Creatinine Ratio 12.4, Glucose 151 H, Calcium 8.8, Troponin I < 0.015 04/12/19 22:20: Troponin I < 0.015 04/13/19 00:50: Troponin I < 0.015 04/13/19 00:50: Magnesium 2.2 04/13/19 06:22: WBC 8.1, RBC 3.94 L, Hgb 9.5 L, Hct 31.8 L, MCV 80.7 L, MCH 24.1 L, MCHC 29.9 L, Plt Count 333, MPV 9.3, Immature Gran % (Auto) 0.400, Neut % (Auto) 64.9, Lymph % (Auto) 20.0, [place] % (Auto) 9.1, Eos % (Auto) 5.0, Baso % (Auto) 0.6, Absolute Neuts (auto) 5.3, Nucleated RBC % 0 Rhythm: EKG: Normal sinus rhythm with nonspecific ST changes ECHO: Stress Test: Cardiac Cath: PCI: CT Surgery: Holter monitor: EPS: PPM: CXR: Chest CT Scan: Assessment/Plan 1. Atherosclerosis of [place] coronary artery of [place] heart She did undergo stress testing which did not demonstrate any evidence of ischemia. It is possible that she does have underlying fixed coronary artery disease and this was exacerbated by her anemia. My recommendation at this time would be to work-up her anemia and as a cardiac enzymes are normal to treat this and get her blood hemoglobin to a decent level before considering any invasive therapy. That can be considered and undertaken as an outpatient. 2. History of coronary artery bypass surgery Z95.1 CABG x2- YADIRA to LAD, SVG to OM1 w/pulmonary vein isolation and isolation of the left atrial appendage 09/06/13 @ [facility] Patient appears to be stable at this particular time and we will plan on continue medical therapy. 3. Paroxysmal atrial fibrillation I48.0 Plan She did undergo pulmonary vein isolation during her open heart surgery in August 2013. She is also undergo isolation of her left atrial appendage. She is not on oral anticoagulation. She will continue current beta-mariah and we will continue to monitor. 4. History of aortic valve replacement with bioprosthetic valve Z95.3 21mm Trifecta pericardial prosthesis Plan Her most recent echocardiogram in June 2018 showed just fraction of 68% with trace aortic valve insufficiency. This appears stable on exam. She will continue current medical therapy and will continue to monitor. She will continue with antibiotic prophylaxis according to AHA guidelines. 5. Essential hypertension I10 Plan She states her blood pressure has been better controlled outside the office. If no etiology for chest pain is discerned, she may benefit for such medication as Isosorbide or Amlodipine to assist both chest pain and hypertension seen in the office. Orders 6. Pure hypercholesterolemia E78.00 Plan She is expecting this be monitored by PCP in the near future. She will continue current cholesterol lower medication. Orders 7. Bilateral carotid artery stenosis I65.23 Plan She was instructed that her carotid artery disease could be followed by Dr. Fox or Dr. Cervantes locally. She wishes to contemplate this further. At this juncture of the overall approach would be watchful waiting from the cardiac standpoint. It would be prudent to optimize her hemoglobin, get her off her antiplatelet agents, improve her iron stores, and then see her as an outpatient to determine whether any other investigative therapy needs to be undertaken. Thank you for allowing me to participate in the care of your patient. Please don't hesitate to call if any issues arise
[2019-04-13] MEDS: Aspirin E.C. 81 MG Tablet PO (09:32)
[2019-04-13] MEDS: Metoprolol Tartrate 100 MG Tablet PO ×2 (09:33→21:17)
[2019-04-13] MEDS: 0.9% Saline Lock 10 ML Syringe IV ×3 (09:36→21:47)
--- NOTE | 2019-04-13 12:51 | PN_ITS ---
<Yolanda Patel - Last Filed: 04/13/19 13:02> Patient Problems: Active and Suspected Problems (Last Reviewed 04/13/19 @ 09:20 by Russ Rooeny MD) Chest pain (Acute) Subjective: Patient seen and examined. Reports continuous pain across to her chest and into her bilateral axillary area. She does note improved from prior. Denies shortness of breath or other symptoms. Denies blood in stool/black stool. - Physical Exam Vitals/I&O's: Vital Signs Temp Pulse Resp BP Pulse Ox 98.9 F 73 16 126/51 H 96 04/13/19 09:29 04/13/19 09:33 04/13/19 09:29 04/13/19 09:29 04/13/19 09:29 Oxygen Delivery Method Room Air Weight: 160 lb 11.472 oz Body Mass Index (BMI) 29.4 Finger Stick Blood Glucose 195 Intake and Output for Last 24 Hours 04/11/19 04/12/19 04/13/19 23:59 23:59 23:59 Intake Total 25 / 265 350 / 350 Balance 25 / 265 350 / 350 General: Alert, Oriented x3, Cooperative HEENT: Atraumatic, PERRLA, EOMI, Normocephalic Neck: Supple, No JVD, Negative Carotid Bruits Lungs: Clear to auscultation, Normal air movement Cardiovascular: Regular rate, Regular Rhythm, Normal S1, Normal S2, No murmurs Abdomen: Bowel Sounds Present, Soft, Non Tender Extremities: No clubbing, No cyanosis, No edema, Capillary Refill Less than 3 Seconds Skin: No rashes, No breakdown Musculoskeletal: No Tenderness to Palpation of Joints or Extremities Neurological: Cranial nerves II-XII grossly intact, Neuro grossly intact Psych/Mental Status: Normal Affect, Appropriate Laboratory Results 04/12/19 18:55: WBC 9.2, RBC 3.98 L, Hgb 9.6 L, Hct 32.4 L, MCV 81.4, MCH 24.1 L , MCHC 29.6 L, RDW Std Deviation 50.0 H, RDW Coeff of Velasquez 17.1 H, Plt Count 330, MPV 9.2, Immature Gran % (Auto) 0.300, Neut % (Auto) 66.3, Lymph % (Auto) 19.0, Price % (Auto) 8.9, Eos % (Auto) 4.9, Baso % (Auto) 0.6, Absolute Neuts (auto) 6.1, Absolute Lymphs (auto) 1.76, Nucleated RBC % 0 04/12/19 18:55: Sodium 141, Potassium 4.3, Chloride 107, Carbon Dioxide 29.0, Anion Gap 5, BUN 14, Creatinine 1.13 H, Estim Creat Clear Calc 32.45, Est GFR (MDRD) Af Amer 60, Est GFR (MDRD) Non-Af 49 L, BUN/Creatinine Ratio 12.4, Glucose 151 H, Calcium 8.8, Troponin I < 0.015 04/12/19 22:20: Troponin I < 0.015 04/13/19 00:50: Troponin I < 0.015 04/13/19 00:50: Magnesium 2.2 04/13/19 06:22: WBC 8.1, RBC 3.94 L, Hgb 9.5 L, Hct 31.8 L, MCV 80.7 L, MCH 24.1 L, MCHC 29.9 L, RDW Std Deviation 50.4 H, RDW Coeff of Velasquez 17.1 H, Plt Count 333, MPV 9.3, Immature Gran % (Auto) 0.400, Neut % (Auto) 64.9, Lymph % (Auto) 20.0, Price % (Auto) 9.1, Eos % (Auto) 5.0, Baso % (Auto) 0.6, Absolute Neuts (auto) 5.3, Absolute Lymphs (auto) 1.63, Nucleated RBC % 0 Current Medications Acetaminophen (Tylenol) 500 mg PO DAILY PRN PRN PRN Reason: Pain Score 1-10/10 Aspirin (Ecotrin) 81 mg PO DAILY@0800 [facility] Last Admin: 04/13/19 09:32 Dose: 81 mg Documented by: Cilostazol (Pletal) 50 mg PO BIDAC [facility] Last Admin: 04/13/19 06:39 Dose: 50 mg Documented by: Ezetimibe (Zetia) 10 mg PO QHS [facility] Glucagon () 1 mg IM .X1 PRN PRN Reason: Hypoglycemia Pantoprazole Sodium 40 mg/ (Sodium Chloride) 110 mls @ 330 mls/hr IV Q12 [facility] Last Infusion: 04/13/19 10:16 Dose: Infused Documented by: Sodium Chloride () 250 mls @ 15 mls/hr IV .[id number] PRN PRN Reason: Saline Flush Sodium Chloride () 250 mls @ 15 mls/hr IV .[id number] PRN PRN Reason: Additional IVPB Infusion Melatonin (Melatonin) 3 mg PO QHS PRN PRN PRN Reason: INSOMNIA Metoprolol Tartrate (Lopressor (Beta Johnathon)) 100 mg PO BID [facility] Last Admin: 04/13/19 09:33 Dose: 100 mg Documented by: Nitroglycerin (Nitrostat) 0.4 mg SUBLINGUAL Q5M PRN PRN Reason: CARDIAC/CHEST PAIN Ondansetron HCl (Zofran) 4 mg IV Q8H PRN PRN PRN Reason: NAUSEA/VOMITING Sodium Chloride () 10 - 40 ml IV UD PRN PRN Reason: SALINE FLUSH Last Admin: 04/13/19 09:36 Dose: 10 ml Documented by: Medical Necessity - Tobacco Use Smoking Status: Current some day smoker Tobacco Use: Cigarettes Assessment/Plan All Active Problems (Last Reviewed 04/13/19 @ 09:20 by Russ Rooney MD) Chest pain (Acute) History of bilateral carotid endarterectomy (Resolved) Atypical chest pain (Acute) 1. Chest pain-troponin negative. EKG without ST-T changes. Recent stress test 04/10/2019 negative for ischemia. Cardiology consulted. Patient will undergo work-up for anemia and consider further cardiac evaluation as outpatient. Continue medical management. 2. Acute on chronic normocytic/microcytic anemia- Dr. Crump, general surgery on consult. Plan for EGD this afternoon. Continue IV PPI. Recent outpatient blood transfusion for hemoglobin 7.4. Trend CBC. Check iron studies. 3. CAD-history of CABG x2 in 2013. Continue aspirin, Zetia, metoprolol. 4. Hypertension-stable, continue metoprolol regimen. 5. 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 6. Paroxysmal atrial fibrillation-continue beta-johnathon. Not on anticoagulation. 7. [place] 8. Carotid stenosis-continue outpatient follow-up with vascular surgery. 9. History of breast cancer status post mastectomy 10. GERD-on IV PPI. DVT prophylaxis-SCDs This patient was seen by JACLYN Escamilla under the supervision of Dr. Naranjo. <Carolann Naranjo - Last Filed: 04/13/19 15:17> - Physical Exam Vitals/I&O's: Vital Signs Temp Pulse Resp BP Pulse Ox 98.3 F 76 16 147/62 H 97 04/13/19 13:38 04/13/19 13:38 04/13/19 13:38 04/13/19 13:38 04/13/19 13:38 Oxygen Delivery Method Room Air Weight: 160 lb 11.472 oz Body Mass Index (BMI) 29.4 Finger Stick Blood Glucose 195 Intake and Output for Last 24 Hours 04/11/19 04/12/19 04/13/19 23:59 23:59 23:59 Intake Total 265 350 / 350 Balance 265 350 / 350 Laboratory Results 04/12/19 18:55: WBC 9.2, RBC 3.98 L, Hgb 9.6 L, Hct 32.4 L, MCV 81.4, MCH 24.1 L , MCHC 29.6 L, RDW Std Deviation 50.0 H, RDW Coeff of Velasquez 17.1 H, Plt Count 330, MPV 9.2, Immature Gran % (Auto) 0.300, Neut % (Auto) 66.3, Lymph % (Auto) 19.0, Price % (Auto) 8.9, Eos % (Auto) 4.9, Baso % (Auto) 0.6, Absolute Neuts (auto) 6.1, Absolute Lymphs (auto) 1.76, Nucleated RBC % 0 04/12/19 18:55: Sodium 141, Potassium 4.3, Chloride 107, Carbon Dioxide 29.0, Anion Gap 5, BUN 14, Creatinine 1.13 H, Estim Creat Clear Calc 32.45, Est GFR (MDRD) Af Amer 60, Est GFR (MDRD) Non-Af 49 L, BUN/Creatinine Ratio 12.4, Glucose 151 H, Calcium 8.8, Troponin I < 0.015 04/12/19 22:20: Troponin I < 0.015 04/13/19 00:50: Troponin I < 0.015 04/13/19 00:50: Magnesium 2.2 04/13/19 06:22: WBC 8.1, RBC 3.94 L, Hgb 9.5 L, Hct 31.8 L, MCV 80.7 L, MCH 24.1 L, MCHC 29.9 L, RDW Std Deviation 50.4 H, RDW Coeff of Velasquez 17.1 H, Plt Count 333, MPV 9.3, Immature Gran % (Auto) 0.400, Neut % (Auto) 64.9, Lymph % (Auto) 20.0, Price % (Auto) 9.1, Eos % (Auto) 5.0, Baso % (Auto) 0.6, Absolute Neuts (auto) 5.3, Absolute Lymphs (auto) 1.63, Nucleated RBC % 0 04/13/19 13:45: Vitamin B12 406 04/13/19 13:45: Iron 25 L, TIBC 435, Iron Saturation 5.7 L, Ferritin 8, Folate 19.80 Current Medications Acetaminophen (Tylenol) 500 mg PO DAILY PRN PRN PRN Reason: Pain Score 1-10/10 Aspirin (Ecotrin) 81 mg PO DAILY@0800 [facility] Last Admin: 04/13/19 09:32 Dose: 81 mg Documented by: Cilostazol (Pletal) 50 mg PO BIDAC [facility] Last Admin: 04/13/19 06:39 Dose: 50 mg Documented by: Ezetimibe (Zetia) 10 mg PO QHS [facility] Glucagon () 1 mg IM .X1 PRN PRN Reason: Hypoglycemia Pantoprazole Sodium 40 mg/ (Sodium Chloride) 110 mls @ 330 mls/hr IV Q12 [facility] Last Infusion: 04/13/19 10:16 Dose: Infused Documented by: Sodium Chloride () 250 mls @ 15 mls/hr IV .[id number] PRN PRN Reason: Saline Flush Sodium Chloride () 250 mls @ 15 mls/hr IV .[id number] PRN PRN Reason: Additional IVPB Infusion Melatonin (Melatonin) 3 mg PO QHS PRN PRN PRN Reason: INSOMNIA Metoprolol Tartrate (Lopressor (Beta Johnathon)) 100 mg PO BID [facility] Last Admin: 04/13/19 09:33 Dose: 100 mg Documented by: Nitroglycerin (Nitrostat) 0.4 mg SUBLINGUAL Q5M PRN PRN Reason: CARDIAC/CHEST PAIN Ondansetron HCl (Zofran) 4 mg IV Q8H PRN PRN PRN Reason: NAUSEA/VOMITING Sodium Chloride () 10 - 40 ml IV UD PRN PRN Reason: SALINE FLUSH Last Admin: 04/13/19 09:36 Dose: 10 ml Documented by: Assessment/Plan Patient seen by JACLYN Escamilla under my supervision. Patient was admitted with a complaint of chest pain which he described as tightness and started a few hours prior to presentation. Admission, troponins x3 were negative. He had recently had a stress test 2 days ago which was negative for ischemia. Cardiology was consulted. Noted to be anemic with hemoglobin of 9.5. General surgery on board and patient is for EGD today. She is currently on IV pantoprazole. She had recently been transfused 2 units of packed red blood cells in the outpatient unit for hemoglobin of 7.4. Patient complains of chest pain this morning, which she describes as a burning tightness across her chest. SHe does admit to having a history of peptic ulcer disease. Review of systems otherwise negative. o/e: Vital Signs Height 5 ft 2 in Weight: 160 lb 11.472 oz Weight in Pounds 160.7 lbs Pulse Ox 97 Temperature 98.3 F Pulse Rate 76 Respiratory Rate 16 Blood Pressure 147/62 Blood Pressure Position Semi-Fowlers General: Alert, Oriented x3, Cooperative HEENT: Atraumatic, PERRLA, EOMI, Normocephalic Neck: Supple, No JVD, Negative Carotid Bruits Lungs: Clear to auscultation, Normal air movement Cardiovascular: Regular rate, Regular Rhythm, Normal S1, Normal S2, No murmurs Abdomen: Bowel Sounds Present, Soft, Non Tender Extremities: No clubbing, No cyanosis, No edema, Capillary Refill Less than 3 Seconds Skin: No rashes, No breakdown Musculoskeletal: No Tenderness to Palpation of Joints or Extremities Neurological: Cranial nerves II-XII grossly intact, Neuro grossly intact Psych/Mental Status: Normal Affect, Appropriate Plan is for EGD today. Cardiology consulted on account of chest pain to me that she had a negative stress test 2 days ago. Per cardiology, overall approach would be for watchful waiting, and to optimize her hemoglobin and get her off antiplatelet agents as well as improve her iron stores. She can then be followed up on outpatient basis. Will await findings of EGD to determine further management. Continue IV PPI. Rest of management as per Yolanda Jorge, CALL WORKER PERSON-C's notes which I reviewed and endorsed. Code Visit OBSV E&M: 65452 Subsequent observation care L2
[2019-04-13 14:28] LABS: Vitamin B12 406 pg/mL (211-911)
[2019-04-13 14:54] LABS: Ferritin 8 ng/mL (8-252); Iron 25 ug/dL (50-170); Iron Binding Capacity,Total 435 ug/dL (250-450); PERCENT IRON SATURATION 5.7 % (15.0-55.0)
--- NOTE | 2019-04-13 15:05 | IMM_PTH ---
PATIENT: SAMMY SOLOMON LOC: PCU U#:[id number] AGE/SX: 78/F ROOM: [facility] RE04/12/[address]: Dr. Carolann Naranjo MD : 1940 BED: 1 DIS: 04/14/2019 SPEC #: [id number] RECD: 04/16/19 12:29 STATUS: JANIS REQ #: [id number] KEMAL: 04/13/19 15:[address]: Dona Crump DEPT: IMMUNOHISTOCHEMISTRY RECD BY: Rajwinder Jennings ENTERED: 04/16/19 12:32 SP TYPE: IMMUNO OTHR DR: MD Dr. Marilu Rosas MD Dr. Joseph Agyepong, MD Dr. Nana Yaa Koram, MD Tissues: A - Stomach, NOS Procedures: H Pylori (initial) PHYSICIAN & INSTITUTION [place] [id number] SPECIMEN INFORMATION: Tissue Source: A - Body of stomach biopsy Clinical Info: [place] Specimen Number: [id number] CPT code: 33144 METHODOLOGY: Deparaffinized sections of prefer/formalin-fixed tissue or PAP/DQ stained slides are incubated with monoclonal/polyclonal antibodies/oligonucleotide probes. Localization is made via biotin free immunoperoxidase method. Appropriate controls are performed and reacted as expected. Results on target cell population are indicated in the following table: RESULTS: ANTIBODY / CLONE RESULT Block A H Pylori (polyclonal) negative These tests were developed and their performance characteristics determined by [facility]. They may not have been cleared or approved by the U.S. Food and Drug Administration. The FDA has determined that such clearance or approval is not necessary. INTERPRETATION: A. Body of stomach biopsy: Negative for Helicobacter pylori organisms. SJ:bruno 04/17/19
[2019-04-13] MEDS: Lactated Ringers 1,000 ML 100 ML IV (15:25)
--- NOTE | 2019-04-13 16:47 | OP.EGD_ITS ---
Patient Name: Ivanna Swann Procedure Date: 04/13/2019 2:26 PM Date of : 1940 Age: 78 Procedure: Upper GI endoscopy Indications: Iron deficiency anemia Providers: Dona Crump MD Medicines: Monitored Anesthesia Care Patient Profile: This is a 78 year old female. Complications: No immediate complications. Procedure: Pre-Anesthesia Assessment: - Prior to the procedure, a History and Physical was performed, and patient medications and allergies were reviewed. The patient's tolerance of previous anesthesia was also reviewed. The risks and benefits of the procedure and the sedation options and risks were discussed with the patient. All questions were answered, and informed consent was obtained. Prior Anticoagulants: The patient has taken no previous anticoagulant or antiplatelet agents. ASA Grade Assessment: II - A patient with mild systemic disease. After reviewing the risks and benefits, the patient was deemed in satisfactory condition to undergo the procedure. After obtaining informed consent, the endoscope was passed under direct vision. Throughout the procedure, the patient's blood pressure, pulse, and oxygen saturations were monitored continuously. The gastroscope was introduced through the mouth, and advanced to the second part of duodenum. The upper GI endoscopy was accomplished without difficulty. The patient tolerated the procedure well. Scope In: 4:27:28 PM Scope Out: 4:39:40 PM Total Procedure Duration Time 0 hours 12 minutes 12 seconds Findings: A small hiatal hernia was present. The Z-line was irregular and was found 35 cm from the incisors. Biopsies were taken with a cold forceps for histology. Inflammation was found in the gastric body and in the gastric antrum. Biopsies were taken with a cold forceps for histology. Biopsies were taken with a cold forceps for Helicobacter pylori cultures. The examined duodenum was normal. Impression: - Small hiatal hernia. - Z-line irregular, 35 cm from the incisors. Biopsied. - Gastritis. Biopsied. - Normal examined duodenum. Recommendation: - Await pathology results. - Cardiac diet. - Continue present medications. - Use sucralfate tablets 1 gram PO QID. Procedure Code(s): --- Professional --- 94068, Esophagogastroduodenoscopy, flexible, transoral; with biopsy, single or multiple Diagnosis Code(s): --- Professional --- K44.9, Diaphragmatic hernia without obstruction or gangrene K22.8, Other specified diseases of esophagus K29.70, Gastritis, unspecified, without bleeding D50.9, Iron deficiency anemia, unspecified CPT copyright 2017 [employer]. All rights reserved. The codes documented in this report are preliminary and upon humanities department chair review may be revised to meet current compliance requirements. MD Dona Horn MD 04/13/2019 4:47:21 PM This report has been signed electronically. Number of Addenda: 0 Note Initiated On: 04/13/2019 2:26 PM
[2019-04-13] MEDS: Ezetimibe 10 MG Tablet PO (21:17)
[2019-04-14 02:58] VITALS: PULSE 73
[2019-04-14 03:15] VITALS: BP 140/82; PULSE 77; RESP 16; TEMP 36.8; O2SAT 95
--- NOTE | 2019-04-14 05:22 | PN.SURG_ITS ---
Patient Problems: Active and Suspected Problems (Last Reviewed 04/13/19 @ 09:20 by Russ Rooney MD) Chest pain (Acute) Subjective: Pt resting No recorded stools - Physical Exam Vitals/I&O's: Vital Signs Temp Pulse Resp BP Pulse Ox 98.3 F 77 16 140/82 H 95 04/14/19 03:15 04/14/19 03:15 04/14/19 03:15 04/14/19 03:15 04/14/19 03:15 Oxygen Delivery Method Room Air Weight: 160 lb 11.472 oz Body Mass Index (BMI) 29.4 Finger Stick Blood Glucose 195 Intake and Output for Last 24 Hours 04/12/19 04/13/19 04/14/19 23:59 23:59 23:59 Intake Total 1076.67 / 1076.67 Balance 1076.67 / 1076.67 Abdomen: Bowel Sounds Present, Soft, Non Tender Laboratory Results 04/13/19 00:50: Magnesium 2.2 04/13/19 06:22: WBC 8.1, RBC 3.94 L, Hgb 9.5 L, Hct 31.8 L, MCV 80.7 L, MCH 24.1 L, MCHC 29.9 L, RDW Std Deviation 50.4 H, RDW Coeff of Velasquez 17.1 H, Plt Count 333, MPV 9.3, Immature Gran % (Auto) 0.400, Neut % (Auto) 64.9, Lymph % (Auto) 20.0, [place] % (Auto) 9.1, Eos % (Auto) 5.0, Baso % (Auto) 0.6, Absolute Neuts (auto) 5.3, Absolute Lymphs (auto) 1.63, Nucleated RBC % 0 04/13/19 13:45: Vitamin B12 406 04/13/19 13:45: Iron 25 L, TIBC 435, Iron Saturation 5.7 L, Ferritin 8, Folate 19.80 Current Medications Acetaminophen (Tylenol) 500 mg PO DAILY PRN PRN PRN Reason: Pain Score 1-10/10 Aspirin (Ecotrin) 81 mg PO DAILY@0800 [facility] Last Admin: 04/13/19 09:32 Dose: 81 mg Documented by: Cilostazol (Pletal) 50 mg PO BIDAC [facility] Last Admin: 04/13/19 17:34 Dose: 50 mg Documented by: Ezetimibe (Zetia) 10 mg PO QHS [facility] Last Admin: 04/13/19 21:17 Dose: 10 mg Documented by: Glucagon () 1 mg IM .X1 PRN PRN Reason: Hypoglycemia Pantoprazole Sodium 40 mg/ (Sodium Chloride) 110 mls @ 330 mls/hr IV Q12 [facility] Last Infusion: 04/13/19 21:39 Dose: Infused Documented by: Sodium Chloride () 250 mls @ 15 mls/hr IV .[id number] PRN PRN Reason: Saline Flush Sodium Chloride () 250 mls @ 15 mls/hr IV .[id number] PRN PRN Reason: Additional IVPB Infusion Melatonin (Melatonin) 3 mg PO QHS PRN PRN PRN Reason: INSOMNIA Metoprolol Tartrate (Lopressor (Beta Johnathon)) 100 mg PO BID [facility] Last Admin: 04/13/19 21:17 Dose: 100 mg Documented by: Nitroglycerin (Nitrostat) 0.4 mg SUBLINGUAL Q5M PRN PRN Reason: CARDIAC/CHEST PAIN Ondansetron HCl (Zofran) 4 mg IV Q8H PRN PRN PRN Reason: NAUSEA/VOMITING Sodium Chloride () 10 - 40 ml IV UD PRN PRN Reason: SALINE FLUSH Last Admin: 04/13/19 21:47 Dose: 10 ml Documented by: Sodium Chloride/Electrolytes (Nulytely) 4,000 ml PO X1 ONE Stop: 04/15/19 10:01 Medical Necessity - Tobacco Use Smoking Status: Current some day smoker Tobacco Use: Cigarettes Assessment/Plan All Active Problems (Last Reviewed 04/13/19 @ 09:20 by Russ Rooney MD) Chest pain (Acute) History of bilateral carotid endarterectomy (Resolved) Atypical chest pain (Acute) Findings do not suggest an active GI bleed Preparations underway for a colonoscopy on Tuesday
[2019-04-14] MEDS: Cilostazol 50 MG Tablet PO (06:42)
[2019-04-14 06:56] LABS: Hematocrit 32.3 % (37-47); Hemoglobin 9.8 g/dL (12.0-15.0); Mean Corp Hgb Conc 30.3 g/dL (32-36); Mean Corpuscular Hgb 24.4 pg (27.0-32.0); Mean Corpuscular Volume 80.3 fL (81-99); Platelet Count 311 K/mm3 (150-450); RBC Distribution Width CV 17.4 % (11.6-14.6); RBC Distribution Width SD 50.7 fl (35.1-43.9); Red Blood Count 4.02 M/mm3 (4.2-5.4)
[2019-04-14 07:04] VITALS: PULSE 70
[2019-04-14 08:36] VITALS: BP 135/53; PULSE 72; RESP 16; TEMP 36.8; O2SAT 93
[2019-04-14 08:39] VITALS: BP 135/53; PULSE 72
[2019-04-14] MEDS: Metoprolol Tartrate 100 MG Tablet PO (08:39)
[2019-04-14] MEDS: Aspirin E.C. 81 MG Tablet PO (08:39)
--- NOTE | 2019-04-14 09:19 | PCM.DC ---
- Discharge Diagnoses Current Active Problems: Current Active and Chronic Problems (Last Reviewed 04/13/19 @ 09:20 by Russ Rooney MD) Chest pain (Acute) You will use the following diet at home:: Cardiac Discharge Activity: Return to Normal Activity Call your doctor if you observe: Shortness of breath, Dizziness, Fainting spells, Chest pain Allergies/Adverse Reactions: Allergies Sulfa (Sulfonamide Antibiotics) Allergy (Severe, Verified 04/12/19 22:47) HEART RACING Latex, Natural Rubber Allergy (Verified 04/12/19 22:47) Rash, psioriasis amoxicillin [From Augmentin] Adverse Reaction (Verified 04/12/19 22:47) Nausea atorvastatin [From Lipitor] Adverse Reaction (Verified 04/12/19 22:47) Other CRAMPS clavulanic acid [From Augmentin] Adverse Reaction (Verified 04/12/19 22:47) Nausea Iodinated Contrast Media [CONTRASTS] Adverse Reaction (Verified 04/12/19 22:47) Other LOCK[place]AW niacin [From Niaspan Extended-Release] Adverse Reaction (Verified 04/12/19 22:47) Other FLUSH rosuvastatin [From Crestor] Adverse Reaction (Verified 04/12/19 22:47) Other CRAMPS turkey grease Adverse Reaction (Uncoded 04/12/19 22:47) Rash Medications to take at Discharge Cilostazol [Pletal] 50 mg PO BIDAC 09/01/13 Ezetimibe [Zetia] 10 mg PO QHS 09/01/13 Pantoprazole Sodium [Protonix] 40 mg PO BID 09/01/13 Aspirin E.C. [Ecotrin] 81 mg PO DAILY 01/24/16 metoprolol tartrate 100 mg tablet 100 mg PO BID #180 tab 10/05/18 nitroglycerin 0.4 mg sublingual tablet 0.4 mg SUBLINGUAL Q5M PRN #25 tab 10/05/18 Acetaminophen [Tylenol Extra Strength] 500 mg PO DAILY PRN PRN 04/12/19 Niacin (Inositol Niacinate) [Niacin 500 mg Capsule] 1,000 mg PO DAILY 04/12/19 Ferrous Sulfate [Iron] 325 mg PO BID #60 tab 04/14/19 The following prescriptions were given: Ferrous Sulfate [Iron] 325 mg PO BID #60 tab Transmission Status: Pending to [facility]/pharmacy #[id number] Primary Care Physician: Marilu Singletary MD [Primary Care Provider] - Please follow up with your Primary Care Physician in: 3-5 Days Test Results: Test results from this visit will be discussed in further detail at your follow-up appointment, if applicable. Please Follow Up With: Dona Crump MD When: Call if you decide to complete colonoscopy Proposed Discharge Date: 04/14/19
--- NOTE | 2019-04-14 09:24 | PCM.DC.SUM ---
<Yolanda Patel - Last Filed: 04/14/19 09:43> Discharge Date and Diagnosis Date of Admission: 04/13/19 Date of Discharge: 04/14/19 - Primary Discharge Diagnosis Active and Suspected Problems (Last Reviewed 04/13/19 @ 09:20 by Russ Rooney MD) 1. Musculoskeletal chest pain, ACS ruled out 2. Acute on chronic microcytic anemia/iron deficiency anemia 3. CAD-history of CABG x2 in 2013. 4. Hypertension 5. 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 6. Paroxysmal atrial fibrillation 7. DENVER 8. Carotid stenosis 9. History of breast cancer status post mastectomy 10. GERD - Secondary Discharge Diagnosis Chronic Problems (Last Reviewed 04/13/19 @ 09:20 by Russ Rooney MD) Bilateral carotid bruits (Chronic) Bilateral carotid artery stenosis (Chronic) Type 2 diabetes mellitus (Chronic) History of aortic valve replacement with bioprosthetic valve (Chronic ~09/06/13) 21mm Trifecta pericardial prosthesis Nonrheumatic aortic (valve) stenosis (Chronic) Pure hypercholesterolemia (Chronic) Paroxysmal atrial fibrillation (Chronic) Essential hypertension (Chronic) History of coronary artery bypass surgery (Chronic) CABG x2- YADIRA to LAD, SVG to OM1 w/pulmonary vein isolation and isolation of the left atrial appendage 09/06/13 @ [facility] Atherosclerotic heart disease of circle coronary artery without angina pectoris (Chronic) SOB (shortness of breath) on exertion (Chronic) Sleep disorder breathing (Chronic) GERD (gastroesophageal reflux disease) (Chronic) Psoriasis (Chronic) Effusion, left knee (Chronic) Osteoarthritis (Chronic) Sleep disorder (Chronic) Tobacco abuse (Chronic) DENVER (obstructive sleep apnea) (Chronic) Hospital Course and Treatment Imaging Results: Diagnostic Data Chest X-Ray 04/12/19 18:51 IMPRESSION: Stable, nonacute portable x-ray examination of the chest. Electronically Signed: Cristian Hickey MD (Brooks) at 19:22 EST , Service support , Dr. Crump- General surgery Dr. Tadeo- Cardiology Operations: None Procedures: EGD Summary of Care Provided: The patient is a 78 year old F admitted 04/13/2019 due to chest pain. 1. Musculoskeletal chest pain-troponin negative. EKG without ST-T changes. Recent stress test 04/10/2019 negative for ischemia. Cardiology consulted. Patient will undergo work-up for anemia and consider further cardiac evaluation as outpatient. Continue medical management. Pain is reproducible and more so in the bilateral axillary areas. Feel continuous discomfort is musculoskeletal in nature. Follow-up with cardiology in 1 to 2 weeks. 2. Acute on chronic microcytic anemia/iron deficiency anemia- Dr. Crump, general surgery on consult. Recent outpatient blood transfusion for hemoglobin 7.4. Patient underwent EGD 04/13/2019 which demonstrated small hiatal hernia, gastritis. Continue home PPI regimen. Additionally added sucralfate 1 g p.o. 4 times daily. Patient was recommended colonoscopy however declined. Follow up with Dr. Crump in 1 Week. Iron 25, iron saturation 5.7. Initiated on ferrous sulfate 325 mg p.o. twice daily. 3. CAD-history of CABG x2 in 2013. Continue aspirin, Zetia, metoprolol. 4. Hypertension-stable, continue metoprolol regimen. 5. 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 6. Paroxysmal atrial fibrillation-continue beta-johnathon. Not on anticoagulation. 7. DENVER 8. Carotid stenosis-continue outpatient follow-up with vascular surgery. 9. History of breast cancer status post mastectomy 10. GERD-continue PPI. General: Alert, Oriented x3, Cooperative HEENT: Atraumatic, PERRLA, EOMI, Normocephalic Neck: Supple, No JVD, Negative Carotid Bruits Lungs: Clear to auscultation, Normal air movement Cardiovascular: Regular rate, Regular Rhythm, Normal S1, Normal S2, No murmurs Abdomen: Bowel Sounds Present, Soft, Non Tender Extremities: No clubbing, No cyanosis, No edema, Capillary Refill Less than 3 Seconds Skin: No rashes, No breakdown Musculoskeletal: No Tenderness to Palpation of Joints or Extremities Neurological: Cranial nerves II-XII grossly intact, Neuro grossly intact Psych/Mental Status: Normal Affect, Appropriate Patient seen and examined prior to discharge. Physical assessment as noted above. Patient is stable for discharge with follow up recommendations as noted above. This patient was seen by JACLYN Escamilla under the supervision of Dr. Naranjo. - Physical Exam Vitals/I&O's: Vital Signs Temp Pulse Resp BP Pulse Ox 98.3 F 72 16 135/53 H 93 04/14/19 08:36 04/14/19 08:39 04/14/19 08:36 04/14/19 08:39 04/14/19 08:36 Oxygen Delivery Method Room Air Weight: 160 lb 11.472 oz Body Mass Index (BMI) 29.4 Finger Stick Blood Glucose 195 Intake and Output for Last 24 Hours 04/12/19 04/13/19 04/14/19 23:59 23:59 23:59 Intake Total 1076.67 / 1076.67 Balance 1076.67 / 1076.67 Laboratory Results 04/13/19 13:45: Vitamin B12 406 04/13/19 13:45: Iron 25 L, TIBC 435, Iron Saturation 5.7 L, Ferritin 8, Folate 19.80 04/14/19 06:41: WBC 8.0, RBC 4.02 L, Hgb 9.8 L, Hct 32.3 L, MCV 80.3 L, MCH 24.4 L, MCHC 30.3 L, RDW Std Deviation 50.7 H, RDW Coeff of Velasquez 17.4 H, Plt Count 311, MPV 9.0 Current Medications Acetaminophen (Tylenol) 500 mg PO DAILY PRN PRN PRN Reason: Pain Score 1-10/10 Aspirin (Ecotrin) 81 mg PO DAILY@0800 [facility] [place] Last Admin: 04/14/19 08:39 Dose: 81 mg Documented by: Cilostazol (Pletal) 50 mg PO BIDAC [facility] [place] Last Admin: 04/14/19 06:42 Dose: 50 mg Documented by: Ezetimibe (Zetia) 10 mg PO QHS [facility] [place] Last Admin: 04/13/19 21:17 Dose: 10 mg Documented by: Glucagon () 1 mg IM .X1 PRN PRN Reason: Hypoglycemia Pantoprazole Sodium 40 mg/ (Sodium Chloride) 110 mls @ 330 mls/hr IV Q12 [facility] [place] Last Admin: 04/14/19 08:42 Dose: 330 mls/hr Documented by: Sodium Chloride () 250 mls @ 15 mls/hr IV .[id number] PRN PRN Reason: Saline Flush Sodium Chloride () 250 mls @ 15 mls/hr IV .[id number] PRN PRN Reason: Additional IVPB Infusion Melatonin (Melatonin) 3 mg PO QHS PRN PRN PRN Reason: INSOMNIA Metoprolol Tartrate (Lopressor (Beta Johnathon)) 100 mg PO BID [facility] Last Admin: 04/14/19 08:39 Dose: 100 mg Documented by: Nitroglycerin (Nitrostat) 0.4 mg SUBLINGUAL Q5M PRN PRN Reason: CARDIAC/CHEST PAIN Ondansetron HCl (Zofran) 4 mg IV Q8H PRN PRN PRN Reason: NAUSEA/VOMITING Sodium Chloride () 10 - 40 ml IV UD PRN PRN Reason: SALINE FLUSH Last Admin: 04/13/19 21:47 Dose: 10 ml Documented by: Sodium Chloride/Electrolytes (Nulytely) 4,000 ml PO X1 ONE Stop: 04/15/19 10:01 Discharge Diet: Low fat/ Low Cholesterol Discharge Activity: Return to Normal Activity Call your doctor if you observe: Shortness of breath, Dizziness, Fainting spells, Chest pain Home Medications: Medications to take at Discharge Cilostazol [Pletal] 50 mg PO BIDAC 09/01/13 Ezetimibe [Zetia] 10 mg PO QHS 09/01/13 Pantoprazole Sodium [Protonix] 40 mg PO BID 09/01/13 Aspirin E.C. [Ecotrin] 81 mg PO DAILY 01/24/16 metoprolol tartrate 100 mg tablet 100 mg PO BID #180 tab 10/05/18 nitroglycerin 0.4 mg sublingual tablet 0.4 mg SUBLINGUAL Q5M PRN #25 tab 10/05/18 Acetaminophen [Tylenol Extra Strength] 500 mg PO DAILY PRN PRN 04/12/19 Niacin (Inositol Niacinate) [Niacin 500 mg Capsule] 1,000 mg PO DAILY 04/12/19 Ferrous Sulfate [Iron] 325 mg PO BID #60 tab 04/14/19 Sucralfate [Carafate] 1 gm PO 4X/DAY #120 tab 04/14/19 Following Prescrptions Were Given to Patient: Sucralfate [Carafate] 1 gm PO 4X/DAY #120 tab Transmission Status: Received by [id number] Ferrous Sulfate [Iron] 325 mg PO BID #60 tab Transmission Status: Received by [id number] Primary Care Physician: Marilu Singletary MD [Primary Care Provider] - Please follow up with your Primary Care Physician in: 3-5 Days Please Follow Up With: Dona Crump MD When: Call if you decide to complete colonoscopy Disposition: Home Minutes spent on discharge:: 35 Patient Condition:: Stable Medical Necessity - Tobacco Use Smoking Status: Current some day smoker Tobacco Use: Cigarettes Meaningful Use Info Meaningful Use Diagnoses (Choose all that apply): None applicable <Carolann Naranjo - Last Filed: 04/14/19 14:20> Discharge Date and Diagnosis - Secondary Discharge Diagnosis Chronic Problems (Last Reviewed 04/13/19 @ 09:20 by Russ Rooney MD) Bilateral carotid bruits (Chronic) Bilateral carotid artery stenosis (Chronic) Type 2 diabetes mellitus (Chronic) History of aortic valve replacement with bioprosthetic valve (Chronic ~09/06/13) 21mm Trifecta pericardial prosthesis Nonrheumatic aortic (valve) stenosis (Chronic) Pure hypercholesterolemia (Chronic) Paroxysmal atrial fibrillation (Chronic) Essential hypertension (Chronic) History of coronary artery bypass surgery (Chronic) CABG x2- YADIRA to LAD, SVG to OM1 w/pulmonary vein isolation and isolation of the left atrial appendage 09/06/13 @ [facility] Atherosclerotic heart disease of circle coronary artery without angina pectoris (Chronic) SOB (shortness of breath) on exertion (Chronic) Sleep disorder breathing (Chronic) GERD (gastroesophageal reflux disease) (Chronic) Psoriasis (Chronic) Effusion, left knee (Chronic) Osteoarthritis (Chronic) Sleep disorder (Chronic) Tobacco abuse (Chronic) DENVER (obstructive sleep apnea) (Chronic) Hospital Course and Treatment Summary of Care Provided: Patient seen by JACLYN Escamilla under my supervision The patient is a 78 year old F who was admitted with a complaint of chest pain and abdominal pain. EKG x3 was negative and he had had a stress test on 04/10/2019 which was negative for ischemia. Cardiology was consulted and plan was for medical management and follow-up with cardiology on outpatient basis. Of note, patient was noted to be anemic and she had recently had transfusion on outpatient basis. General surgery was consulted and she had EGD on 04/13/2019 which was essentially negative. He had recently been transfused with 2 units of packed red blood cells on account of hemoglobin of 7.4. She had EGD on 04/14/2019 findings of which was mostly hiatal hernia and the Z line which was irregular and biopsies were taken. There was inflammation in the gastric body in the gastric antrum but was otherwise negative. Plan was for patient to have colonoscopy on 04/16/2019. However patient insisted on being discharged on 04/14/2019 and she says she felt stable and did not see what she should stay in the hospital till Tuesday just for colonoscopy. She also stated that she had cats to take care of at home and so wanted to be home to clean up any meds that the cats had made while she was in the hospital. She stated that she had been given a kit to check for stool occult blood by her primary care doctor and she preferred to do that and if that was abnormal, then she would follow-up for colonoscopy. Patient was counseled about risks of worsening anemia if she did not have colonoscopy on Tuesday. Patient stated that she did not think that her anemia was that severe and she knew that she did not have any bleeding going on. When asked how she knew she just replied, because I just know. Patient was discharged home on 04/14/2019 with a prescription for pantoprazole and sucralfate. She is follow-up with her primary care doctor and general surgery. Patient seen and examined prior to discharge. She had no complaints and felt well. Review of systems otherwise negative. Labs and vitals reviewed. Home medication reviewed and reconciled. o/e: Vital Signs Height 5 ft 2 in Weight: 160 lb 11.472 oz Weight in Pounds 160.7 lbs Pulse Ox 93 Temperature 98.3 F Pulse Rate 72 Respiratory Rate 16 Blood Pressure 135/53 Blood Pressure Position Semi-Fowlers General: Alert, Oriented x3, Cooperative HEENT: Atraumatic, PERRLA, EOMI, Normocephalic Neck: Supple, No JVD, Negative Carotid Bruits Lungs: Clear to auscultation, Normal air movement Cardiovascular: Regular rate, Regular Rhythm, Normal S1, Normal S2, No murmurs Abdomen: Bowel Sounds Present, Soft, Non Tender Extremities: No clubbing, No cyanosis, No edema, Capillary Refill Less than 3 Seconds Skin: No rashes, No breakdown Musculoskeletal: No Tenderness to Palpation of Joints or Extremities Neurological: Cranial nerves II-XII grossly intact, Neuro grossly intact Psych/Mental Status: Normal Affect, Appropriate Plan as above. Rest as per Yolanda Patel COMMUNITY RELATIONS REPRESENTATIVE-c's note, which I have reviewed, and endorsed. [] - Physical Exam Vitals/I&O's: Vital Signs Temp Pulse Resp BP Pulse Ox 98.3 F 72 16 135/53 H 93 04/14/19 08:36 04/14/19 08:39 04/14/19 08:36 04/14/19 08:39 04/14/19 08:36 Oxygen Delivery Method Room Air Weight: 160 lb 11.472 oz Body Mass Index (BMI) 29.4 Finger Stick Blood Glucose 195 Intake and Output for Last 24 Hours 04/12/19 04/13/19 04/14/19 23:59 23:59 23:59 Intake Total 1076.67 / 1076.67 110 / 110 Balance 1076.67 / 1076.67 110 / 110 Laboratory Results 04/13/19 13:45: Vitamin B12 406 04/13/19 13:45: Iron 25 L, TIBC 435, Iron Saturation 5.7 L, Ferritin 8, Folate 19.80 04/14/19 06:41: WBC 8.0, RBC 4.02 L, Hgb 9.8 L, Hct 32.3 L, MCV 80.3 L, MCH 24.4 L, MCHC 30.3 L, RDW Std Deviation 50.7 H, RDW Coeff of Velasquez 17.4 H, Plt Count 311, MPV 9.0 Code Visit OBSV E&M: 66050 Observation care discharge
== END 2019-04-14 09:26 | disposition home or self-care (01) ==
LOC: ED 18:46 → PCU 21:40
PROVIDERS: Nurse Practitioner Family; Surgery; Admitting Provider Hospitalist; Emergency Provider Emergency Medicine; Family Provider Internal Medicine; PCP Internal Medicine; Visit Provider Student in an Organized Health Care Education/Training Program
PROC: 0DJ08ZZ Inspection of Upper Intestinal Tract, Via Natural or Artificial Opening Endoscopic (ICD-10-PCS; CPT 43235; principal; 2019-04-13 15:00)
DX: R07.89 Other chest pain (principal); D50.9 Iron deficiency anemia, unspecified; E78.00 Pure hypercholesterolemia, unspecified; K44.9 Diaphragmatic hernia without obstruction or gangrene; K29.50 Unspecified chronic gastritis without bleeding; I25.10 Atherosclerotic heart disease of native coronary artery without angina pectoris; I10 Essential (primary) hypertension; G47.33 Obstructive sleep apnea (adult) (pediatric); I48.0 Paroxysmal atrial fibrillation; K21.9 Gastro-esophageal reflux disease without esophagitis; E11.9 Type 2 diabetes mellitus without complications; F17.210 Nicotine dependence, cigarettes, uncomplicated; R06.02 Shortness of breath; I65.23 Occlusion and stenosis of bilateral carotid arteries; L40.9 Psoriasis, unspecified; M19.90 Unspecified osteoarthritis, unspecified site; Z95.1 Presence of aortocoronary bypass graft; Z95.2 Presence of prosthetic heart valve; Z79.899 Other long term (current) drug therapy; Z79.82 Long term (current) use of aspirin; Z87.11 Personal history of peptic ulcer disease
CPT/HCPCS: 43239; 36415; 71045; 80048; 82607; 82728; 82746; 83540; 83550; 83735; 84484; 85025; 85027; 88305; 88313; 88342; 93005; 96361; 96365; 96366; 99218; 99283; 99406; J7120; A4216; G0378; J3490

== ENCOUNTER → 2019-04-17 11:17 | Outpatient (CLI) | payer MEDICARE, SELFPAY ==
[2019-04-12 22:33] VITALS: BMI 29.4
--- NOTE | 2019-04-17 11:29 | RAD_ITS ---
HISTORY: anterior left rib pain, no trauma, hx bilateral mastectomy many years ago EXAMINATION/TECHNIQUE: XR Ribs Unilateral W/ PA Chest Min 3 Views: Left COMPARISON: Chest x-ray from April 12, 2019 FINDINGS: LINES/DEVICES: Sternal wires. Left atrial appendage clip. Mediastinal clips. Left and right axillary surgical clips. Prosthetic aortic valve is unchanged. LUNGS: No consolidation, edema or effusion. No pneumothorax. MEDIASTINUM AND CARDIOVASCULAR STRUCTURES: Cardiac silhouette not enlarged. Central airways and mediastinal contour are unremarkable. RIBS AND OSSEOUS STRUCTURES: Unremarkable. No evidence of displaced rib fractures. RAD/Ribs Uni Min 3V w/PA Chest IMPRESSION: Negative chest and ribs series. Multiple surgeries with left and right axillary clips, mediastinal clips, sternal wires, aortic valve replacement, and left atrial appendage clip. Carotid bulb calcifications at 0601 Reported and signed by: Lee Blevins MD Electronically Signed: Lee Blevins MD at 6:00 EST Tel , Service support ,
== END ==
PROVIDERS: Family Provider Internal Medicine; PCP Internal Medicine; Referring Provider Internal Medicine; Visit Provider Internal Medicine
DX: R07.89 Other chest pain (principal)
CPT/HCPCS: 71101

== ENCOUNTER 2019-05-22 14:00 | Outpatient (RCR) | payer MEDICARE, SELFPAY ==
[2019-04-12 22:33] VITALS: BMI 29.4
--- NOTE | 2019-04-27 12:43 | HP.PTEVAL ---
Patient's Visit Information SAMMY SOLOMON is a 78 year old F referred to Physical Therapy by Marilu Singletary MD with a diagnosis of MUSCOSKELETAL CHEST AND NECK PAIN. Date of Evaluation: 04/27/19 Physical Therapist: Omega Shields, PT, Cert MDT, OCS - Visit Plan Frequency: 2x /Week Duration: 4 Weeks Plan: PT INTERVENTIONS MANUAL THERAPY STM,US,MHP,CERVICAL/POSTURAL EX'S - Subjective Findings: This 78 y/o female presents to physical therapy with neck and musculosckeletal chest pain pain. Patient has had cervical pain about pain incidous onset on right side .Pain is located right chest shoulder pain.Patient has multiple comorbities with found to have anemia ,hospitalilized blood test anemia cuase is unknown. Comorbities carotid surgery, breast CA masectomy 1998 , H/O TIA,CABG. Decsribed as burning pain chest/neck shoulder. Aggraveing factors lifting heavy affects housework tasks and ADL'S. Alleviating factors rest.Patient has BUENO ,occasional dizziness ,denies tinnutus. Patient condtion affects QOL. SOCAIL: single. VOCATION: retired - Pain Bilateral Neck Pain Intensity (Out of 10): 8 Pain Intensity Range: 10 - Objective POSTURE:mild foward posture rounded shoulders head foward. PALAPTION: tender UT/levators/paraspinals right worse. AROM: BUE WFL. NEURO: denies parathesia/tingling,reflexes C5-6-7 1/3. CERCVICAL ROM: flexion min loss,rotation/lateral flexion mod loss ,extension mod loss - Special Tests C/S Radiculapathy - Left Upper limb tension test: Negative C/S Radiculapathy - Right Upper limb tension test: Negative C/S Radiculapathy - Left Spurlings: Negative C/S Radiculapathy - Right Spurlings: Negative C/S Radiculapathy - Left Cervical distraction: Negative C/S Radiculapathy - Right Cervical distraction: Negative Sharp Lino: Negative Vertebral Artery Test: Negative Alar Ligament Test: Negative - Goals Goal 1:: Independant with HEP. Goal Time Frame: 4-6 Weeks Goal 2:: Improve posture for ADL'S Goal Time Frame: 4-6 Weeks Goal 3:: Decrease cercvical pain by 40% or > to improve function. Goal Time Frame: 4-6 Weeks Goal 4:: Patient to improve cervical ROM for function of recovery Goal Time Frame: 4-6 Weeks Goal 5:: Patient improve cervical owestry score by 5 points or > to improve QOL. Goal Time Frame: 4-6 Weeks - Rehabilitation Potential Physical Therapy Diagnosis: This 78 y/o female presents to physical therapy with muscoskeletal and neck pain with decrease ROM,tenderness impairs ADL'S and functional tasks Rehabilitation Potential: Good - Anticipated Interventions Patient/Client Instruction: Educate patient on: Condition, Plan of Care For the Purpose of:: To decrease pain, To increase ROM, To improve muscle performance and motor function, To improve ability to perform ADL's, To increase tolerance to activity/condition/position, To improve ability of physical actions for home/community/work/leisure, To improve health of tissue, To decrease soft tissue restriction, To increase flexibility/ROM, To reduce risk of recurrence, To improve ability to perform tasks related to life management Therapeutic Exercise to Include: Strength training, Postural training, Flexibilty training, Active ROM For the Purpose of:: To decrease pain, To increase ROM, To improve muscle performance and motor function, To improve ability to perform ADL's, To improve ability of physical actions for home/community/work/leisure, To improve health of tissue, To decrease soft tissue restriction, To improve ability to perform tasks related to life management Manual Therapy Techniques to Include: Soft tissue mobilization For the Purpose of:: To decrease pain, To increase ROM, To improve nutrient delivery to tissue, To increase oxygenation perfusion, To improve health of tissue, To decrease soft tissue restriction Thermo therapy (hot pack): Yes Ultrasound (thermal/non thermal): Yes For the Purpose of:: To decrease pain, To increase ROM, To improve health of tissue, To decrease soft tissue restriction Thank you for the opportunity to evaluate your patient. For Medicare and Medicare HMO plans, please review the plan of care and approve it. It will need to be FAXED BACK to us at [phone] for Medicare purposes. For Medicare only, by signing this I certify the plan of care. Please let me know if there are questions or concerns regarding this plan of care. Physician Signature: Date:
--- NOTE | 2019-06-15 13:17 | HP.PT.NRP ---
HP - Discharge Summary (1) - Patient Information SAMMY SOLOMON was seen in my office for initial evaluation on 04/27/19. The following Plan of Care was established for this patient: Initial Frequency: 2x /Week Initial Duration: 4 Weeks - Anticipated Interventions Patient/Client Instruction: Educate patient on: Condition, Plan of Care For the Purpose of:: To decrease pain, To increase ROM, To improve muscle performance and motor function, To improve ability to perform ADL's, To increase tolerance to activity/condition/position, To improve ability of physical actions for home/community/work/leisure, To improve health of tissue, To decrease soft tissue restriction, To increase flexibility/ROM, To reduce risk of recurrence, To improve ability to perform tasks related to life management Therapeutic Exercise to Include: Strength training, Postural training, Flexibilty training, Active ROM For the Purpose of:: To decrease pain, To increase ROM, To improve muscle performance and motor function, To improve ability to perform ADL's, To improve ability of physical actions for home/community/work/leisure, To improve health of tissue, To decrease soft tissue restriction, To improve ability to perform tasks related to life management Manual Therapy Techniques to Include: Soft tissue mobilization For the Purpose of:: To decrease pain, To increase ROM, To improve nutrient delivery to tissue, To increase oxygenation perfusion, To improve health of tissue, To decrease soft tissue restriction Thermo therapy (hot pack): Yes Ultrasound (thermal/non thermal): Yes For the Purpose of:: To decrease pain, To increase ROM, To improve health of tissue, To decrease soft tissue restriction This patient was last seen in our office 05/22/19. Pertinent comments regarding their Physical therapy will appear below: Pateint seen for PT for cervical spasm with tx on posture,modalties and manual therapy ,Pateint did well thus is d/c from therapy. At this point I will be discontinuing this patient from physical therapy. I would be happy to see this patient again in the future if found appropriate by the physician. Thank you! Omega Shields, PT, Cert MDT, OCS
== END 2019-05-22 19:00 | disposition home or self-care (01) ==
LOC: PT 14:00
PROVIDERS: Family Provider Internal Medicine; PCP Internal Medicine; Referring Provider Internal Medicine; Visit Provider Internal Medicine
DX: R07.9 Chest pain, unspecified (principal); M54.2 Cervicalgia
CPT/HCPCS: 97035; 97140; 97162

== ENCOUNTER → 2019-05-28 13:47 | Outpatient (CLI) | payer MEDICARE, SELFPAY ==
[2019-05-10 13:59] VITALS: BMI 28.5
--- NOTE | 2019-05-28 13:47 | ECHOD_ITS ---
Reason For Study: VALVE REPLACEMENT EVAL Procedure This was a 2D Doppler, Color Flow transthoracic echocardiogram. The study was technically difficult. Exam performed in department. Left Ventricle Normal LV size. Sigmoid septum. Left ventricular systolic function is normal. The estimated ejection fraction is 60 %. No regional wall motion abnormalities noted. Right Ventricle Normal RV size. Normal systolic function. Atria The left atrium is mildly enlarged. Normal right atrium. No doppler evidence for ASD. Mitral Valve There is moderate mitral annular calcification. Extension of the mitral annular calcification onto the mitral valve leaflets. Mild diffuse mitral valve thickening. Trivial mitral valve insufficiency. Tricuspid Valve Normal tricuspid valve. Mild tricuspid valve insufficiency. Right ventricular systolic pressure estimated to be 32 mmHg. Aortic Valve Mild diffuse aortic valve thickening. Moderate diffuse aortic valve calcification. Moderate aortic stenosis. Stable appearing bioprosthetic aortic valve apparatus. Trivial transvalvular insufficiency of the aortic valve. Pulmonic Valve The pulmonic valve is not well visualized. Great Vessels The aortic root is not well visualized. Pericardium/Pleural No pericardial effusion. MMode/2D Measurements & Calculations LVIDd: 3.6 cm IVSd: 1.3 cm LVOT diam: 1.8 cm LVIDs: 2.4 cm LVPWd: 1.1 cm LVOT area: 2.5 cm2 RVDd: 3.3 cm FS: 33.8 % LAV(MOD-bp): 51.5 ml LA A4 area: 16.8 cm2 LA dimension(2D): 4.1 cm LAV(MOD-bp) Indexed: 29.6 ml/m2 LAV(MOD-sp2): 57.4 ml LAV(MOD-sp4): 46.3 ml RA A4 area: 14.9 cm2 Time Measurements MV dec time: 0.26 sec Doppler Measurements & Calculations MV E max andrews: 145.9 cm/sec Lat Peak E' Andrews: 4.8 cm/sec Med Peak E' Andrews: 3.1 cm/sec MV A max andrews: 86.8 cm/sec E/E' lat: 30.5 E/E' med: 47.8 MV E/A: 1.7 Ao V2 max: 309.9 cm/sec LV V1 max: 122.3 cm/sec SV(LVOT): 77.0 ml Ao max P.4 mmHg LV V1 max P.0 mmHg Ao V2 mean: 235.4 cm/sec LV V1 mean P.5 mmHg Ao mean P.9 mmHg LV V1 mean: 90.4 cm/sec Ao V2 VTI: 78.2 cm LV V1 VTI: 30.2 cm MILES(I,D): 0.98 cm2 MILES(V,D): 1.0 cm2 PA V2 max: 127.2 cm/sec TR max andrews: 256.0 cm/sec PA V2 mean: 83.6 cm/sec TR max P.0 mmHg PA V2 VTI: 27.6 cm Interpretation Summary The study was technically difficult. Left ventricular systolic function is normal. The estimated ejection fraction is 60 %. Sigmoid septum. The left atrium is mildly enlarged. There is moderate mitral annular calcification. Extension of the mitral annular calcification onto the mitral valve leaflets Mild diffuse mitral valve thickening. Trivial mitral valve insufficiency. Mild tricuspid valve insufficiency. Stable appearing bioprosthetic aortic valve apparatus. Moderate aortic stenosis. Trivial transvalvular insufficiency of the aortic valve. Right ventricular systolic pressure estimated to be 32 mmHg. Transmitral diastolic flow velocities suggest diastolic dysfunction (pseudonormal pattern). Ordering Physician: Fredi Aponte MD Referring Physician: Fredi Aponte Performed By: Susan Mckenzie, FABRICIO, RVT
== END ==
PROVIDERS: PCP Internal Medicine; Referring Provider Internal Medicine Cardiovascular Disease; Visit Provider Internal Medicine Cardiovascular Disease
DX: I25.10 Atherosclerotic heart disease of native coronary artery without angina pectoris (principal)
CPT/HCPCS: 93306

== ENCOUNTER 2019-11-04 14:42 | Emergency (ER) | payer MEDICARE, SELFPAY ==
[2019-05-10 13:59] VITALS: BMI 28.5
[2019-11-04 14:45] VITALS: BP 156/83; PULSE 71; RESP 17; TEMP 36.6; O2SAT 96; BMI 29.8
[2019-11-04] MEDS: Tetracaine 0.5% Ophthalmic Bottle OPHTHALMIC (15:10)
[2019-11-04] MEDS: Fluorescein 1 MG STRIP 1 STRIP OPHTHALMIC (15:11)
--- NOTE | 2019-11-04 15:42 | ED.VISSUMM ---
- ER Visit Summary Date of Service: 11/04/19 Chief Complaint: Foreign body sensation right eye History of Present Illness: The patient is a [address] Ramirez and Dr. Greenfield. She reports that yesterday she was out weeding and developed a foreign body sensation in her right eye. She reports she has an aching pain that is mild currently moderate at worst. Is worsened by blinking. Is relieved by nothing. She reports that her eyes been tearing. It itches from time to time. She does complain of blurred vision in his right eye. She does not wear contacts. She has not been welding or grinding. Physical Examination: Vitals: Stable. Afebrile. General: Well-nourished and well-developed. Head: Normocephalic atraumatic. Eyes: Right upper eyelid was everted. This was swept with a Q-tip and there was a small foreign body that removed. Patient reports that the foreign body sensation is resolved. She does have diffuse conjunctival injection. There is a half-rosa shaped corneal abrasion just inferior to her pupil with fluorescein dye uptake. Neck: Supple, no lymphadenopathy. No JVD. Nontender. Cardiovascular: Regular rate and rhythm. No murmurs. Respiratory: No respiratory distress. Clear to auscultation bilaterally. Abdominal: Soft, nontender, nondistended, normal bowel sounds. No guarding, rebound, or peritoneal signs. Back: Nontender. Extremities: Nontender, no edema. Skin: Normal color, no rash. Neurologic: Alert and oriented ?3. Cranial nerves II through XII are intact. Normal strength and sensation. Psych: Normal affect. Emergency Department Course and Treatment: Patient was treated with erythromycin ointment. Treatment Plan: Patient will be discharged erythromycin ointment. Instructed to follow-up with Dr. Greenfield in 2 days for another exam. Return to the emergency department for any worsening symptoms. Disposition: To home in improved and stable condition. Impression: 1. Corneal abrasion right eye. This note was generated with [employer] dictation software. It may contain incorrect words, spelling, and punctuation that were not noted in review of the chart prior to signing ED Disposition - Plan for ED Patient: Instructions: ED Corneal Abrasion Referrals: Hector Greenfield MD [STAFF PHYSICIAN] - 2 Days
[2019-11-04] MEDS: Erythromycin Base 1 OPTH.TUBE 1 APPLIC RIGHT EYE (15:51)
== END 2019-11-04 15:52 | disposition home or self-care (01) ==
LOC: ED 15:27
PROVIDERS: Emergency Provider Emergency Medicine; PCP Internal Medicine
DX: S05.01XA Injury of conjunctiva and corneal abrasion without foreign body, right eye, initial encounter (principal); W45.8XXA Other foreign body or object entering through skin, initial encounter; Y93.H2 Activity, gardening and landscaping; Y92.89 Other specified places as the place of occurrence of the external cause; Y99.9 Unspecified external cause status; I10 Essential (primary) hypertension; F17.210 Nicotine dependence, cigarettes, uncomplicated; Z86.73 Personal history of transient ischemic attack (TIA), and cerebral infarction without residual deficits
CPT/HCPCS: 99283

== ENCOUNTER 2020-01-31 13:39 | Emergency (ER) | payer MEDICARE, SELFPAY ==
[2019-11-22 15:43] VITALS: BMI 28.5
[2020-01-31 13:40] VITALS: BP 161/69; PULSE 86; RESP 16; TEMP 36.4; O2SAT 98; BMI 29.6
--- NOTE | 2020-01-31 14:07 | ED.VIS.GEN ---
History of Present Illness Chief Complaint: Other, Pain/Inj Narrative: 79-year-old female presents with concern for bleeding tongue. Patient states that she has had a small dot on her tongue for a decade which she attributes to eating a [employer] and cutting her tongue approximately 8 to 9 years ago. States that she was putting her dentures in when she noticed it was bleeding. Made an appointment with her primary care physician who was able to cauterize this with silver nitrate. Primary care concerned that she may need suturing. Sent in for further evaluation. Past Medical History - Allergies and Home Meds Allergies/Adverse Reactions: Allergies Sulfa (Sulfonamide Antibiotics) Allergy (Severe, Verified 01/31/20 13:43) HEART RACING Latex, Natural Rubber Allergy (Verified 01/31/20 13:43) Rash, psioriasis amoxicillin [From Augmentin] Adverse Reaction (Verified 01/31/20 13:43) Nausea atorvastatin [From Lipitor] Adverse Reaction (Verified 01/31/20 13:43) Other CRAMPS clavulanic acid [From Augmentin] Adverse Reaction (Verified 01/31/20 13:43) Nausea Iodinated Contrast Media [CONTRASTS] Adverse Reaction (Verified 01/31/20 13:43) Other LOCKJAW niacin [From Niaspan Extended-Release] Adverse Reaction (Verified 01/31/20 13:43) Other FLUSH rosuvastatin [From Crestor] Adverse Reaction (Verified 01/31/20 13:43) Other CRAMPS turkey grease Adverse Reaction (Uncoded 01/31/20 13:43) Rash Primary Care Physician: Daisha Ramirez DO [Primary Care Provider] - Past Medical History: - - CAD, HTN, Valvular disease, CVA, DMII Surgical History: noncontributory Smoking Status: Former smoker Alcohol: None Drugs: None - Family History Paternal Family History: Family History (Last Reviewed 05/10/19 @ 14:01 by Dayan Singh) Mother Heart disease Cancer Father Heart disease Cancer Sister Cancer Family History: Reports: No pertinent history Review of Systems General: Denies: Chills, Fever, Sweats Eyes: Denies: Visual changes - bilaterally, Diplopia ENT: Reports: - - Bleeding tongue. Denies: Rhinorrhea, Sore throat Cardiovascular: Denies: Chest pain, Palpitations Respiratory: Denies: Dyspnea, Cough, Dyspnea on exertion Gastrointestinal: Denies: Abdominal pain, Nausea, Vomiting, Diarrhea, Melena, Hematochezia Genitourinary: Denies: Dysuria, Hematuria, Frequency Musculoskeletal: Denies: Back pain, Extremity Pain Skin: Denies: Rash, Wounds Neurological: Denies: Headache, Weakness, Numbness Physical Exam Vital Signs/Narrative: Vital Signs Temp Pulse Resp BP Pulse Ox 01/31/20 13:40 97.6 F L 86 16 161/69 H 98 General: Well nourished, Well developed, No Acute Distress Head: Normocephalic, Atraumatic Eyes: Perrl, EOMI ENT: Moist mucous membranes, No rhinorrhea, - - Area on the tongue which is dark and appears to be cauterized. Not actively bleeding. Neck: Supple, Nontender Cardiovascular: Regular rate, Regular rhythm, No murmurs Respiratory: No distress, CTA bilaterally, Chest nontender Abdomen: Soft, Nontender, Nondistended, Normal bowel sounds Back: Nontender, Normal Inspection Extremities: Nontender, No edema Skin: Normal color, No rash Neurological: Alert, Oriented x3, Cranial nerves II-XII grossly intact, Normal Strength, Normal Sensation Psychological: Normal affect, Normal Mood Diagnostic/Tx/Re-eval - Medical Decision Making Patient appears well nontoxic. Vital signs within normal limits. Lesion not actively bleeding. Spoke with primary care provider Dr. Escalera. I will refer to ENT for possible biopsy. Asked to return for any further bleeding. Patient agreeable and discharged home in stable condition. 1. Tongue lesion 2. Tongue bleeding - resolved ED Disposition - Plan for ED Patient: Disposition: Home or Assisted Living Instructions: What Are Oral Lesions? (Precancerous and Cancerous) Referrals: Toro Meek MD [STAFF PHYSICIAN] - 3-5 Days Daisha Ramirez DO [Primary Care Provider] - 1 Day
== END 2020-01-31 14:21 | disposition home or self-care (01) ==
LOC: ED 14:16
PROVIDERS: Emergency Provider Emergency Medicine
CPT/HCPCS: 99284

== ENCOUNTER → 2020-02-05 14:51 | Outpatient (CLI) | payer MEDICARE, SELFPAY ==
[2020-01-31 13:40] VITALS: BMI 29.6
[2020-02-05 17:41] LABS: Absolute Lymphocyte Count 1.59 X10^3/uL (0.83-4.51); Absolute Neutrophil Count 6.2 X10^3/uL (2.0-7.7); Basophil# 0.05 X10^3/uL; Basophil% 0.6 % (0-1); Eosinophils% 3.3 % (0-5); Hematocrit 25.2 % (37-47); Hemoglobin 6.8 g/dL (12.0-15.0); Lymphocyte # 1.59 X10^3/ul (4.0); Lymphocyte % 17.5 % (19-41); Mean Corpuscular Hgb 23.2 pg (27.0-32.0); Mean Platelet Vol. 9.7 fl (6.2-12.0); Monocyte# 0.85 X10^3/uL; Monocyte% 9.4 % (0-10); NRBC Flagged by Analyzer 0 % (0-5); Neutrophil # 6.22 X10^3/uL (2.7-7.7); Neutrophil % 68.4 % (47-70); Platelet Count 333 K/mm3 (150-450); RBC Distribution Width CV 17.2 % (11.6-14.6); RBC Distribution Width SD 53.6 fl (35.1-43.9); Red Blood Count 2.93 M/mm3 (4.2-5.4); White Blood Count 9.1 K/mm3 (4.4-11.0)
== END ==
PROVIDERS: PCP Internal Medicine; Referring Provider Internal Medicine; Visit Provider Internal Medicine
DX: K14.8 Other diseases of tongue (principal)
CPT/HCPCS: 36415; 85025

== ENCOUNTER → 2020-02-08 09:57 | Outpatient (CLI) | payer MEDICARE, SELFPAY ==
[2020-01-31 13:40] VITALS: BMI 29.6
[2020-02-08] MEDS: 0.9% NaCl Peripheral Flush Adult/Peds IV (09:30)
[2020-02-08 10:43] VITALS: BP 132/44; PULSE 73; RESP 16; TEMP 36.3; O2SAT 99; BMI 29.2
[2020-02-08 12:51] VITALS: BP 132/44; PULSE 73; RESP 16; TEMP 36.3; O2SAT 99
[2020-02-08 13:06] VITALS: BP 146/45; PULSE 77; RESP 16; TEMP 36.3; O2SAT 95
[2020-02-08 14:06] VITALS: BP 134/43; PULSE 84; RESP 16; TEMP 36.4; O2SAT 98
[2020-02-08 15:06] VITALS: BP 136/44; PULSE 83; RESP 16; TEMP 36.1; O2SAT 99
[2020-02-08 16:12] VITALS: BP 122/39; PULSE 80; RESP 14; TEMP 36.1; O2SAT 97
== END ==
PROVIDERS: PCP Internal Medicine; Referring Provider Internal Medicine; Visit Provider Internal Medicine
DX: D64.9 Anemia, unspecified (principal)
CPT/HCPCS: 36430; 86850; 86900; 86901; 86920; 86922; J7040; P9016; P9040; A4216

== ENCOUNTER → 2020-02-11 07:39 | Outpatient (CLI) | payer MEDICARE, SELFPAY ==
[2020-02-08 10:43] VITALS: BMI 29.2
[2020-02-11 08:11] VITALS: BP 149/48; PULSE 73; RESP 16; TEMP 36.2; O2SAT 97; BMI 29.2
[2020-02-11 08:34] VITALS: BP 149/48; PULSE 73; RESP 16; TEMP 36.2; O2SAT 97
[2020-02-11 08:55] VITALS: BP 127/45; PULSE 62; RESP 16; TEMP 35.9; O2SAT 98
[2020-02-11 10:49] VITALS: BP 138/45; PULSE 57; RESP 16; TEMP 36; O2SAT 99
[2020-02-11 12:10] VITALS: BP 175/49; PULSE 72; RESP 14; TEMP 36.3; O2SAT 98
[2020-02-11 13:10] VITALS: BP 146/44; PULSE 69; RESP 16; TEMP 36.3; O2SAT 98
== END ==
PROVIDERS: PCP Internal Medicine; Referring Provider Internal Medicine; Visit Provider Internal Medicine
DX: D64.9 Anemia, unspecified (principal)
CPT/HCPCS: 36430; 86850; 86900; 86901; 86920; 86922; J7040; P9016

== ENCOUNTER 2020-05-14 22:19 | Observation (INO) | payer MEDICARE, SELFPAY ==
[2020-02-11 08:11] VITALS: BMI 29.2
[2020-05-14 22:21] VITALS: PULSE 82; RESP 16; TEMP 36.9; O2SAT 97; BMI 32.2
--- NOTE | 2020-05-14 22:41 | EKG12_ITS ---
Test Reason : CP Blood Pressure : / mmHG Vent. Rate : 077 BPM Atrial Rate : 077 BPM P-R Int : 170 ms QRS Dur : 118 ms QT Int : 396 ms P-R-T Axes : 063 007 136 degrees QTc Int : 448 ms Normal sinus rhythm Septal infarct (cited on or before 24-JAN-2016) ST & T wave abnormality, consider lateral ischemia Abnormal ECG Confirmed by FAYE DELGADILLO, KAREN ([id number]), editorial specialist REECE NUNEZ ([id number]) on 05/15/2020 2:16:07 PM Referred By: HEVER/LUCIANA Confirmed By:KAREN MCKINNEY MD
--- NOTE | 2020-05-14 22:42 | CT_ITS ---
STUDY: CTA CHEST REASON FOR EXAM: Female, 79 years old. CONCERN FOR DISSECTION, SUDDEN ONSET BACK PAIN WRAPPING AROUND CHEST AND LEFT ARM, HX TIA, HTN, CABG, BREAST CA, DIAB, DRESSLERS SYNDROME, IODINE ALLERGIE-LOCKJAW, PT WAS PRE-MEDICATED AND TOLERATED WELL RADIATION DOSAGE (If Supplied By Facility): CTDIvol = ( 12.08 ) mGy, DLP = ( 385.36 ) mGycm TECHNIQUE: The examination was performed with the intravenous administration of IV 100mL Isovue-370. Post-processing of the angiographic images was performed, with multiplanar reformation and 3D reconstruction. Individualized dose optimization techniques were used for this CT. COMPARISON: CT chest dated 07/07/2016 FINDINGS: Normal enhancement of the main pulmonary artery and right and left pulmonary arteries. Normal enhancement of the bilateral peripheral pulmonary arteries. There is no demonstrated pulmonary embolism. Normal thoracic aorta and visualized great vessels. There is no demonstrated aortic dissection. Normal heart and pericardium. Stable mildly prominent AP window lymph node and subcarinal lymph node. Normal hilar regions. Normal visualized trachea and bronchi. The lungs are hyper expanded, with flattening of the hemidiaphragms. Stable appearance of mild COPD and emphysema. No evidence of acute airspace disease or suspicious masses or nodules. Normal pleura. Normal chest wall structures. Normal osseous structures. Normal visualized upper abdomen. CT/CTA Chest W/WO Contrast IMPRESSION: Normal CTA chest examination, without a demonstrated pulmonary embolism or arterial dissection. Stable COPD and emphysema. Lungs are clear. Stable mediastinal lymph nodes compared to 2017 exam Electronically Signed: Jamal Vasquez DO at 0:16 EST Tel , Service support ,
--- NOTE | 2020-05-14 22:44 | ED.VIS.GEN ---
History of Present Illness Chief Complaint: Chest Pain Informant: Patient Onset: Today Current Severity: Mild Maximum Severity: Moderate Narrative: Patient present secondary to back pain that radiated around to her chest. Patient states that for the last several nights she is got up in the middle the night to go the bathroom. Upon getting back in bed she has to hold the pillow to her chest because she has some anterior chest pain. Tonight she got up to go to the restroom. Upon standing from the commode she developed severe pain to the mid to lower thoracic area of her back that wrapped around to her chest. She states the pain did feel it went down the back of her arms and up into the right side of her neck. She states pain is improved currently but is not resolved. She denies shortness of breath. - Past Medical History (1) Essential hypertension Status: Chronic (2) GERD (gastroesophageal reflux disease) Status: Chronic (3) History of aortic valve replacement with bioprosthetic valve Status: Chronic Comment: 21mm Trifecta pericardial prosthesis (4) History of coronary artery bypass surgery Status: Chronic Comment: CABG x2- YADIRA to LAD, SVG to OM1 w/pulmonary vein isolation and isolation of the left atrial appendage 09/06/13 @ [facility] (5) Osteoarthritis Status: Chronic (6) Paroxysmal atrial fibrillation Status: Chronic (7) Pure hypercholesterolemia Status: Chronic (8) Type 2 diabetes mellitus Status: Chronic Past Medical History - Allergies and Home Meds Allergies/Adverse Reactions: Allergies Sulfa (Sulfonamide Antibiotics) Allergy (Severe, Verified 05/14/20 22:24) HEART RACING Latex, Natural Rubber Allergy (Verified 05/14/20 22:24) Rash, psioriasis amoxicillin [From Augmentin] Adverse Reaction (Verified 05/14/20 22:24) Nausea atorvastatin [From Lipitor] Adverse Reaction (Verified 05/14/20 22:24) Other CRAMPS clavulanic acid [From Augmentin] Adverse Reaction (Verified 05/14/20 22:24) Nausea Iodinated Contrast Media [CONTRASTS] Adverse Reaction (Verified 05/14/20 22:24) Other LOCKJAW niacin [From Niaspan Extended-Release] Adverse Reaction (Verified 05/14/20 22:24) Other FLUSH rosuvastatin [From Crestor] Adverse Reaction (Verified 05/14/20 22:24) Other CRAMPS turkey grease Adverse Reaction (Uncoded 05/14/20 22:24) Rash Primary Care Physician: Daisha Ramirez DO [Primary Care Provider] - Prior records reviewed: Yes Surgical History: noncontributory Smoking Status: Never smoker - Family History Paternal Family History: Family History (Last Reviewed 05/10/19 @ 14:01 by Dayan Singh) Mother Heart disease Cancer Father Heart disease Cancer Sister Cancer Family History: Reports: No pertinent history Review of Systems General: Denies: Chills, Fever Eyes: Denies: Visual changes - bilaterally ENT: Denies: Bilateral ear pain Cardiovascular: Reports: Chest pain. Denies: Palpitations, Heart racing Respiratory: Denies: Dyspnea Gastrointestinal: Denies: Abdominal pain, Vomiting, Diarrhea Musculoskeletal: Reports: Neck pain, Extremity Pain Skin: Denies: Rash Hematologic: Denies: Easy bruising, Easy bleeding Allergy: Denies: Uticaria Physical Exam Vital Signs/Narrative: Vital Signs Temp Pulse Resp Pulse Ox 05/14/20 22:21 98.4 F 82 16 97 Inital Vital Signs reviewed: Yes General: Well nourished, Well developed Head: Normocephalic ENT: Moist mucous membranes Neck: Supple Cardiovascular: Regular rate, Regular rhythm Respiratory: No distress, CTA bilaterally Abdomen: Soft, Nontender Extremities: Nontender, - - Equal radial pulses bilaterally Skin: Normal color Neurological: Alert, Oriented x3 Psychological: Normal affect Diagnostic/Tx/Re-eval Chest X-Ray - ED: 1 View, Read by ED Physician, Normal, Heart, Lungs, Mediastinum Impressions Chest CTA 05/14/20 22:42 IMPRESSION: Normal CTA chest examination, without a demonstrated pulmonary embolism or arterial dissection. Stable COPD and emphysema. Lungs are clear. Stable mediastinal lymph nodes compared to 2017 exam Electronically Signed: Jamal Vasquez DO at 0:16 EST Tel , Service support , Chest X-Ray 05/14/20 22:58 IMPRESSION: Lungs are clear Electronically Signed: Jamal Vasquez DO at 23:36 EST Tel , Service support , 05/14/20 22:42 CTA Chest W/WO Contrast [CT] Stat 05/14/20 22:58 Chest 1 View (Portable) [RAD] Stat Laboratory Results 05/14/20 05/14/20 22:08 22:08 WBC 8.7 RBC 3.49 L Hgb 8.9 L Hct 30.1 L MCV 86.2 MCH 25.5 L MCHC 29.6 L RDW Std Deviation 53.8 H RDW Coeff of Velasquez 17.4 H Plt Count 391 MPV 9.2 Immature Gran % (Auto) 0.500 Neut % (Auto) 67.8 Lymph % (Auto) 18.2 L [place] % (Auto) 8.9 Eos % (Auto) 4.0 Baso % (Auto) 0.6 Absolute Neuts (auto) 5.9 Absolute Lymphs (auto) 1.58 Nucleated RBC % 0 Sodium 138 Potassium 4.0 Chloride 105 Carbon Dioxide 29.0 Anion Gap 4 L BUN 17 Creatinine 1.16 H Estim Creat Clear Calc 31.10 Est GFR (MDRD) Af Amer 58 L Est GFR (MDRD) Non-Af 48 L BUN/Creatinine Ratio 14.7 Glucose 161 H Calcium 8.6 Troponin I 0.033 - EKG Initial EKG Interpretation: Sinus Rhythm - Sinus at 77. Lateral T inversions, more pronounced when compared to prior study of March 2019. - Medical Decision Making Patient story is concerning for possible aortic disease. She was premedicated with Benadryl and Solu-Medrol and underwent CTA of her chest. There is no evidence of aortic dissection or PE. Blood work reveals mild anemia. Troponin is 0.033. Her EKG does appear slightly different than her prior study 13 months ago. I will recommend observation for cycling of cardiac enzymes. Patient is comfortable this plan. ED Disposition - Plan for ED Patient: Disposition: Acute Care Hospital [facility] Diagnosis: Chest pain Referrals: Daisha Ramirez DO [Primary Care Provider] -
[2020-05-14] MEDS: DiphenhydrAMINE 50 MG/ML Syringe 25 MG IV (22:49)
[2020-05-14] MEDS: MethylPREDNISolone 125 MG/2 ML Vial 60 MG IV (22:49)
[2020-05-14 22:50] LABS: Absolute Lymphocyte Count 1.58 X10^3/uL (0.83-4.51); Absolute Neutrophil Count 5.9 X10^3/uL (2.0-7.7); Basophil# 0.05 X10^3/uL; Basophil% 0.6 % (0-1); Eosinophil# 0.35 X10^3/uL; Hematocrit 30.1 % (37-47); Hemoglobin 8.9 g/dL (12.0-15.0); Lymphocyte # 1.58 X10^3/ul (4.0); Lymphocyte % 18.2 % (19-41); Mean Corp Hgb Conc 29.6 g/dL (32-36); Mean Corpuscular Hgb 25.5 pg (27.0-32.0); Mean Corpuscular Volume 86.2 fL (81-99); Mean Platelet Vol. 9.2 fl (6.2-12.0); Monocyte# 0.77 X10^3/uL; Monocyte% 8.9 % (0-10); NRBC Flagged by Analyzer 0 % (0-5); Neutrophil # 5.89 X10^3/uL (2.7-7.7); Neutrophil % 67.8 % (47-70); Platelet Count 391 K/mm3 (150-450); RBC Distribution Width CV 17.4 % (11.6-14.6); RBC Distribution Width SD 53.8 fl (35.1-43.9); Red Blood Count 3.49 M/mm3 (4.2-5.4); White Blood Count 8.7 K/mm3 (4.4-11.0)
--- NOTE | 2020-05-14 22:58 | RAD_ITS ---
STUDY: X-RAY CHEST REASON FOR EXAM: Female, 79 years old. SUDDEN ONSET BACK PAIN WRAPPING AROUND CHEST AND BACK OF ARMS. TECHNIQUE: Single AP portable view of the chest. COMPARISON: 04/17/2019 FINDINGS: The lungs are clear and expanded. There is no demonstrated pleural abnormality. Stable postsurgical changes of the heart. Normal mediastinum and erasmo. Normal visualized pulmonary arteries. Normal visualized aortic arch and descending thoracic aorta. Normal visualized thoracic spine. Normal visualized ribs, clavicles, and shoulders. There is no demonstrated abnormality of the visualized soft tissue structures of the upper abdomen. RAD/Chest 1 View (Portable) IMPRESSION: Lungs are clear Electronically Signed: Jamal Vasquez DO at 23:36 EST Tel , Service support ,
[2020-05-14 23:04] LABS: Anion Gap 4 (5-15); BUN 17 mg/dL (7-18); BUN/Creat Ratio 14.7 RATIO (10-20); Calcium,Total 8.6 mg/dL (8.5-10.1); Chloride 105 mmol/L (98-107); Creatinine, Serum 1.16 mg/dL (0.55-1.02); EST Glomerular Filtration Rate 48 mL/min (>60); Est Glom Filt Rate - Afr Amer 58 mL/min (>60); Glucose 161 mg/dL (74-106); Sodium Level 138 mmol/L (136-145)
[2020-05-14 23:20] VITALS: BP 185/79; PULSE 83; RESP 19; O2SAT 95
[2020-05-15] VITALS (10 sets, daily range): BP systolic 140–189; BP diastolic 65–83; PULSE 81–89; RESP 15–18; TEMP 36.4–36.7; O2SAT 93–97; BMI 30.5
--- NOTE | 2020-05-15 00:58 | HP.PCM_ITS ---
Problem List (1) Chest pain Status: Acute (2) Bilateral carotid bruits Status: Chronic (3) Bilateral carotid artery stenosis Status: Chronic (4) Type 2 diabetes mellitus Status: Chronic (5) History of bilateral carotid endarterectomy Status: Resolved Comment: (6) History of aortic valve replacement with bioprosthetic valve Status: Chronic Comment: 21mm Trifecta pericardial prosthesis (7) Nonrheumatic aortic (valve) stenosis Status: Chronic (8) Pure hypercholesterolemia Status: Chronic (9) Paroxysmal atrial fibrillation Status: Chronic (10) Essential hypertension Status: Chronic (11) History of coronary artery bypass surgery Status: Chronic Comment: CABG x2- YADIRA to LAD, SVG to OM1 w/pulmonary vein isolation and isolation of the left atrial appendage 09/06/13 @ [facility] (12) Atherosclerotic heart disease of [place] coronary artery without angina pectoris Status: Chronic Qualifiers: [place] vs. transplanted heart: [place] heart Qualified Code(s): I25.10 - Atherosclerotic heart disease of [place] coronary artery without angina pectoris (13) Atypical chest pain Status: Acute (14) SOB (shortness of breath) on exertion Status: Chronic (15) Sleep disorder breathing Status: Chronic (16) GERD (gastroesophageal reflux disease) Status: Chronic (17) Psoriasis Status: Chronic (18) Effusion, left knee Status: Chronic (19) Osteoarthritis Status: Chronic (20) Sleep disorder Status: Chronic (21) Tobacco abuse Status: Chronic (22) DEN[place] (obstructive sleep apnea) Status: Chronic History of Present Illness Date of Admission: 05/15/20 Chief Complaint: chest pain The patient is a 79 year old F with a significant history of CAD status post CABG in 2013; bovine aortic valve; carotid enterectomy who presents to the emergency department with intermittent excruciating chest pain that radiates to her neck to bilateral arms and to her upper back. She reported her chest pain has been going on for about a year. But on the day of presentation it was so severe that she could not bear it. However chest pain as heaviness; a tightness and burning. Associated with her symptoms is anxiety. Past Medical History Past Medical History (Chronic Problems): Chronic Problems (Last Reviewed 05/15/20 @ 02:[address] Russ Rooney MD) Bilateral carotid bruits (Chronic) Bilateral carotid artery stenosis (Chronic) Type 2 diabetes mellitus (Chronic) History of aortic valve replacement with bioprosthetic valve (Chronic ~09/06/13) 21mm Trifecta pericardial prosthesis Nonrheumatic aortic (valve) stenosis (Chronic) Pure hypercholesterolemia (Chronic) Paroxysmal atrial fibrillation (Chronic) Essential hypertension (Chronic) History of coronary artery bypass surgery (Chronic) CABG x2- YADIRA to LAD, SVG to OM1 w/pulmonary vein isolation and isolation of the left atrial appendage 09/06/13 @ [facility] Atherosclerotic heart disease of [place] coronary artery without angina pectoris (Chronic) SOB (shortness of breath) on exertion (Chronic) Sleep disorder breathing (Chronic) GERD (gastroesophageal reflux disease) (Chronic) Psoriasis (Chronic) Effusion, left knee (Chronic) Osteoarthritis (Chronic) Sleep disorder (Chronic) Tobacco abuse (Chronic) [place] (obstructive sleep apnea) (Chronic) Medical History: Medical History (Last Reviewed 05/15/20 @ 02:[address] 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) I24.1 Pure hypercholesterolemia (Chronic) E78.00 Paroxysmal atrial fibrillation (Chronic) I48.0 Essential hypertension (Chronic) I10 Atherosclerotic heart disease of [place] coronary artery without angina pectoris (Chronic) I25.10 Atypical chest pain (Acute) R07.89 SOB (shortness of breath) on exertion (Chronic) R06.02 Sleep disorder breathing (Chronic) G47.30 GERD (gastroesophageal reflux disease) (Chronic) K21.9 Psoriasis (Chronic) L40.9 Effusion, left knee (Chronic) M25.462 Osteoarthritis (Chronic) M19.90 Sleep disorder (Chronic) G47.9 Tobacco abuse (Chronic) Z72.0 [place] (obstructive sleep apnea) (Chronic) G47.33 CAD (coronary artery disease) (Inactive) I25.10 Carotid stenosis (Inactive) I65.29 HTN (hypertension) (Inactive) I10 PND (post-nasal drip) (Inactive) R09.82 Allergies Sulfa (Sulfonamide Antibiotics) Allergy (Severe, Verified 05/14/20 22:24) HEART RACING Latex, Natural Rubber Allergy (Verified 05/14/20 22:24) Rash, psioriasis amoxicillin [From Augmentin] Adverse Reaction (Verified 05/14/20 22:24) Nausea atorvastatin [From Lipitor] Adverse Reaction (Verified 05/14/20 22:24) Other CRAMPS clavulanic acid [From Augmentin] Adverse Reaction (Verified 05/14/20 22:24) Nausea Iodinated Contrast Media [CONTRASTS] Adverse Reaction (Verified 05/14/20 22:24) Other LOCKJAW niacin [From Niaspan Extended-Release] Adverse Reaction (Verified 05/14/20 22:24) Other FLUSH rosuvastatin [From Crestor] Adverse Reaction (Verified 05/14/20 22:24) Other CRAMPS turkey grease Adverse Reaction (Uncoded 05/14/20 22:24) Rash Home Medications: Ambulatory Orders Medication Instructions Recorded Cilostazol [Pletal] 50 mg PO BIDAC 09/01/13 Ezetimibe [Zetia] 10 mg PO QHS 09/01/13 Pantoprazole Sodium [Protonix] 40 mg PO BID 09/01/13 Aspirin E.C. [Ecotrin] 81 mg PO BID 01/24/16 metoprolol tartrate 100 mg tablet 100 mg PO BID #180 tab 10/05/18 nitroglycerin 0.4 mg sublingual 0.4 mg SUBLINGUAL Q5M PRN #25 tab 10/05/18 tablet Acetaminophen [Tylenol Extra 500 mg PO DAILY PRN PRN 04/12/19 Strength] Niacin (Inositol Niacinate) 1,000 mg PO DAILY 04/12/19 [Niacin 500 mg Capsule] Ferrous Sulfate [Iron] 325 mg PO BID #60 tab 04/14/19 clopidogrel 75 mg tablet 75 mg PO DAILY 11/22/19 Ascorbic Acid [Vitamin C] 500 mg PO DAILY 05/14/20 Surgical History: Surgical History (Last Reviewed 05/15/20 @ 02:[address] Russ Rooney MD) History of bilateral carotid endarterectomy (Resolved) Z98.890 1997,1998 History of aortic valve replacement with bioprosthetic valve (Chronic) Onset Date: ~09/06/13 Z95.3 21mm Trifecta pericardial prosthesis History of coronary artery bypass surgery (Chronic) Z95.1 CABG x2- YADIRA to LAD, SVG to OM1 w/pulmonary vein isolation and isolation of the left atrial appendage 09/06/13 @ [facility] History of left mastectomy Onset Date: ~1998 Z90.12 simple, phrophylactic 1998 History of right mastectomy Onset Date: ~1998 Z90.11 Mod Radical History of tubal ligation Z98.51 Smoking Status: Current some day smoker Tobacco Use: Cigarettes - *Family History Paternal Family History: Family History (Last Reviewed 05/15/20 @ 02:[address] Russ Rooney MD) Mother Heart disease Cancer Father Heart disease Cancer Sister Cancer History Items: No pertinent history Review of Systems Constitutional: Denies: Chills, Fever, Weight Change HEENT: Denies: Head Aches, Sinus Congestion, Sinus Drainage Cardiovascular: Reports: Chest Pain. Denies: Palpitations Respiratory: Denies: Cough, Shortness of breath at rest, Sputum production Gastrointestinal: Denies: Abdominal Pain, Nausea, Vomiting Genitourinary: Denies: Dysuria Musculoskeletal: Reports: Back Pain, Neck Pain. Denies: Joint Pain, Joint Tenderness Skin: Denies: Rash, Wounds Neurological: Denies: Numbness, Tingling, Focal weakness Psychiatric: Denies: Anxiety, Depression, Homicidal Ideations, Suicidal Ideations Hematologic/ Lymphatic: Denies: Easy Bruising, Easy Bleeding VTE Information - Inpt Only VTE Present on Admission: No VTE Mechan Device Prophylaxis: SCD's VTE Pharm Prophylaxis ordered?: No Patient Problems: Active and Suspected Problems (Last Reviewed 05/15/20 @ 02:[address] Russ Rooney MD) Chest pain (Acute) Atypical chest pain (Acute) - Physical Exam Vitals/I&O's: Vital Signs Temp Pulse Resp BP Pulse Ox 98.4 F 83 18 189/73 H 93 05/14/20 22:21 05/15/20 00:00 05/15/20 00:00 05/15/20 00:00 05/15/20 00:00 Oxygen Delivery Method Room Air Weight: 79.9 kg Body Mass Index (BMI) 32.2 Finger Stick Blood Glucose 195 General: Alert, Oriented x3, Cooperative HEENT: Atraumatic, PERRLA, EOMI, Normocephalic, - - Bilateral injection of conjunctiva Neck: Supple, No JVD, Negative Carotid Bruits Lungs: Clear to auscultation, Normal air movement Cardiovascular: Regular rate, Normal S1, Normal S2 Abdomen: Bowel Sounds Present, Soft, Non Tender Extremities: No edema, Capillary Refill Less than 3 Seconds Skin: No rashes, No breakdown Musculoskeletal: No Tenderness to Palpation of Joints or Extremities Neurological: Cranial nerves II-XII grossly intact Psych/Mental Status: Normal Affect, Appropriate Laboratory Results 05/14/20 22:08: WBC 8.7, RBC 3.49 L, Hgb 8.9 L, Hct 30.1 L, MCV 86.2, MCH 25.5 L , MCHC 29.6 L, RDW Std Deviation 53.8 H, RDW Coeff of Velasquez 17.4 H, Plt Count 391, MPV 9.2, Immature Gran % (Auto) 0.500, Neut % (Auto) 67.8, Lymph % (Auto) 18.2 L , [place] % (Auto) 8.9, Eos % (Auto) 4.0, Baso % (Auto) 0.6, Absolute Neuts (auto) 5.9, Absolute Lymphs (auto) 1.58, Nucleated RBC % 0 05/14/20 22:08: Sodium 138, Potassium 4.0, Chloride 105, Carbon Dioxide 29.0, Anion Gap 4 L, BUN 17, Creatinine 1.16 H, Estim Creat Clear Calc 31.10, Est GFR (MDRD) Af Amer 58 L, Est GFR (MDRD) Non-Af 48 L, BUN/Creatinine Ratio 14.7, Glucose 161 H, Calcium 8.6, Troponin I 0.033 Assessment/Plan All Active Problems (Last Reviewed 05/15/20 @ 02:[address] Russ Rooney MD) Chest pain (Acute) History of bilateral carotid endarterectomy (Resolved) Atypical chest pain (Acute) The patient is a 79 year old F with a significant history of CAD status post CABG in 2014; bovine aortic valve; carotid enterectomy who presents to the emergency department with intermittent excruciating chest pain. Chest pain Her chest pain could be from cardiac source; hypertension; anxiety disorder; or esophageal disorder. Place on a monitored bed at the PCU Impression of chest x-ray by radiologist: Lungs are clear. Actual CXR image was independently visualized. No acute cardiopulmonary process was noted. Actual EKG tracing was independently visualized. EKG tracing showed T wave inversions in lead aVL; V4 to V6. Review of old EKG shows that previous EKG has worsening of T wave inversions in above leads. Patient took a baby aspirin at home and received aspirin at emergency department. ASA 81 mg p.o. daily ordered On aspirin; and Plavix which will be continued. Morphine as needed for pain ordered Initial cardiac enzymes was negative. Serial cardiac enzymes ordered Stat EKG as needed for chest pain Chemical stress test in the AM if the cardiac enzymes are negative Hypertension Her blood pressure is uncontrolled and may be contributing to her chest pain. Metoprolol continue PRN hydralazine ordered. Trend blood pressure and adjust blood pressure medication as necessary. Peripheral artery disease With history of endarterectomy Aspirin; Plavix and Pletal continued Bilateral conjunctivitis This is been going on for more than 4 weeks. Reportedly patient has already seen [facility] press hand. Per patient the ophtha lmologist she saw did not provide her with any help. Advised her to follow-up with another [facility] hand outpatient. Tobacco abuse Counseled DVT prophylaxis SCD while planning for cardiac work up for chest pain OBSV E&M: [id number] Initial observation care L2
[2020-05-15] MEDS: Aspirin 81 MG TAB.CHEW 243 MG PO (01:14)
[2020-05-15] MEDS: Labetalol (Prefilled) 20 MG/4 ML 10 MG IV (01:37)
--- NOTE | 2020-05-15 02:15 | EKG12_ITS ---
Test Reason : CP ADMIT Blood Pressure : / mmHG Vent. Rate : 084 BPM Atrial Rate : 084 BPM P-R Int : 178 ms QRS Dur : 116 ms QT Int : 394 ms P-R-T Axes : 072 001 141 degrees QTc Int : 465 ms Normal sinus rhythm Septal infarct , age undetermined ST & T wave abnormality, consider lateral ischemia Abnormal ECG When compared with ECG of 14-MAY-2020 22:27, MANUAL COMPARISON REQUIRED, DATA IS UNCONFIRMED Confirmed by FAYE DELGADILLO, KAREN ([id number]), clinical editor REECE NUNEZ ([id number]) on 05/21/2020 11:20:46 AM Referred By: HOSPITALIST Confirmed By:KAREN MCKINNEY MD
--- NOTE | 2020-05-15 05:43 | PCS.PANDOC ---
PANDEMIC DOCUMENTATION INITIATED: Date: 05/15/2020 Time: 5404
[2020-05-15 05:50] LABS: Cholesterol 175 mg/dL (200); High Density Lipoprotein 53 mg/dL; Triglycerides 56 mg/dL; Very Low Density Lipoprotein 11 mg/dL (5-40)
[2020-05-15] MEDS: 0.9% Saline Lock 10 ML Syringe IV (06:09)
[2020-05-15] MEDS: Pantoprazole Sodium 40 MG Tablet PO (06:15)
[2020-05-15] MEDS: Aspirin E.C. 81 MG Tablet PO ×2 (06:16→17:26)
--- NOTE | 2020-05-15 08:17 | ECHOD_ITS ---
Reason For Study: Abn.EKG Procedure This was a 2D Doppler, Color Flow transthoracic echocardiogram. The exam was of adequate technical quality. Exam performed in department. Left Ventricle Normal LV size. Moderate concentric left ventricular hypertrophy. Left ventricular systolic function is normal. The estimated ejection fraction is 65 %. There is evidence of diastolic dysfunction. Right Ventricle Normal RV size. Normal systolic function. Atria The left atrium is moderately enlarged. Normal right atrium. No doppler evidence for ASD. Mitral Valve There is moderate mitral annular calcification. Extension of the mitral annular calcification on the base of the posterior mitral valve leaflet. Anterior leaflet diffuse mitral valve thickening. Mild (1+) mitral valve insufficiency. Tricuspid Valve Normal tricuspid valve. Mild to moderate (1-2+) eccentric tricuspid valve insufficiency. Right ventricular systolic pressure estimated to be 34 mmHg. Aortic Valve Mild diffuse aortic valve thickening. Moderate focal aortic valve calcification. Severe aortic stenosis. Stable appearing bioprosthetic aortic valve apparatus. Pulmonic Valve The pulmonic valve is not well visualized. Great Vessels Normal sized aortic root. Pericardium/Pleural No pericardial effusion. MMode/2D Measurements & Calculations LVIDd: 3.6 cm IVSd: 1.8 cm LVOT diam: 1.8 cm LVIDs: 1.8 cm LVPWd: 1.3 cm LVOT area: 2.5 cm2 RVDd: 3.0 cm FS: 50.9 % Ao root diam: 2.9 cm LAV(MOD-sp2): 45.3 ml Doppler Measurements & Calculations MV E max andrews: 144.2 cm/sec Lat Peak E' Andrews: 5.9 cm/sec Med Peak E' Andrews: 7.6 cm/sec MV A max andrews: 173.2 cm/sec E/E' lat: 24.2 E/E' med: 18.9 MV E/A: 0.83 MV V2 max: 182.1 cm/sec Ao V2 max: 411.2 cm/sec LV V1 max: 149.8 cm/sec MV max P.3 mmHg Ao max P.8 mmHg LV V1 max P.0 mmHg MV V2 mean: 137.4 cm/sec Ao V2 mean: 303.1 cm/sec LV V1 mean P.8 mmHg MV mean P.2 mmHg Ao mean P.9 mmHg LV V1 mean: 104.8 cm/sec MV V2 VTI: 36.8 cm Ao V2 VTI: 92.1 cm LV V1 VTI: 31.8 cm MVA(VTI): 2.1 cm2 MILES(I,D): 0.85 cm2 MILES(V,D): 0.89 cm2 SV(LVOT): 77.9 ml PA V2 max: 158.3 cm/sec TR max andrews: 280.1 cm/sec TR max P.4 mmHg Interpretation Summary Left ventricular systolic function is normal. The estimated ejection fraction is 65 %. Moderate concentric left ventricular hypertrophy. The left atrium is moderately enlarged. There is moderate mitral annular calcification. Extension of the mitral annular calcification on the base of the posterior mitral valve leaflet. Anterior leaflet diffuse mitral valve thickening. Mild (1+) mitral valve insufficiency. Mild to moderate (1-2+) eccentric tricuspid valve insufficiency. Stable appearing bioprosthetic aortic valve apparatus. Severe aortic stenosis. Right ventricular systolic pressure estimated to be 34 mmHg. There is evidence of diastolic dysfunction. Ordering Physician: Minor Griffin Referring Physician: Daisha Ramirez M.D. Performed By: Kourtney Dominguez RDCS
--- NOTE | 2020-05-15 08:59 | CON.PCM_ITS ---
Problem List (1) Chest pain Status: Acute Qualifiers: Chest pain type: precordial pain Qualified Code(s): R07.2 - Precordial pain - Consult Date of Consult: 05/15/20 79-year-old patient Admitted last night with symptoms of chest pain. Patient had history of CAD with aorto?coronary bypass surgery done in September 06, 2013 Patient also has [place] aortic valve replacement/tissue valve in the same setting. Has multiple other medical problems with history of vascular disease and bilateral carotid endarterectomy This was done last year patient had a history of TIA anemia, diabetes mellitus. She had nonspecific symptoms of chest pain with some radiation to the back. There is no other associated symptoms in particular no symptoms of dizziness no symptoms of shortness of breath. She is a , lives by herself Also she mentioned to me that she currently has been seen in follow-up up by the primary information consultant I reviewed her current evaluation here in the hospital On physical exam she has diastolic murmur in the aortic valve area. Review of the EKG showed sinus with evidence of LVH Assessment and plan;. From cardiac standpoint she had atypical symptoms of chest pain with a prior bypass surgery we will get the record of bypass surgery and also will proceed with nuclear stress test She had clear evidence of diastolic murmur and will evaluate with echocardiogram. The series of cardiac biomarkers with high sensitive troponin has been negative. I will continue to monitor and follow-up this patient during this admission and will review the results of his stress test and echocardiogram and based on that we will discuss possible need for cardiac catheterization.
--- NOTE | 2020-05-15 09:14 | CON.PCM_ITS ---
Problem List (1) Chest pain Status: Acute Qualifiers: Chest pain type: precordial pain Qualified Code(s): R07.2 - Precordial pain Reason for Consult Date of Consultation: 05/15/20 History of Present Illness: 79-year-old patient Admitted last night with symptoms of chest pain. Patient had history of CAD with aorto?coronary bypass surgery done in September 06, 2013 Patient also has [place] aortic valve replacement/tissue valve in the same setting. Has multiple other medical problems with history of vascular disease and bilateral carotid endarterectomy This was done last year patient had a history of TIA anemia, diabetes mellitus. She had nonspecific symptoms of chest pain with some radiation to the back. There is no other associated symptoms in particular no symptoms of dizziness no symptoms of shortness of breath. 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 Review of the EKG showed sinus with evidence of LVH Assessment and plan;. From cardiac standpoint she had atypical symptoms of chest pain with a prior bypass surgery we will get the record of bypass surgery and also will proceed with nuclear stress test She had clear evidence of diastolic murmur and will evaluate with echocardiogram. The series of cardiac biomarkers with high sensitive troponin has been negative. I will continue to monitor and follow-up this patient during this admission and will review the results of his stress test and echocardiogram and based on that we will discuss possible need for cardiac catheterization. Past Medical History Allergies/Adverse Reactions: Allergies Sulfa (Sulfonamide Antibiotics) Allergy (Severe, Verified 05/14/20 22:24) HEART RACING Latex, Natural Rubber Allergy (Verified 05/14/20 22:24) Rash, psioriasis amoxicillin [From Augmentin] Adverse Reaction (Verified 05/14/20 22:24) Nausea atorvastatin [From Lipitor] Adverse Reaction (Verified 05/14/20 22:24) Other CRAMPS clavulanic acid [From Augmentin] Adverse Reaction (Verified 05/14/20 22:24) Nausea Iodinated Contrast Media [CONTRASTS] Adverse Reaction (Verified 05/14/20 22:24) Other LOCKJAW niacin [From Niaspan Extended-Release] Adverse Reaction (Verified 05/14/20 22:24) Other FLUSH rosuvastatin [From Crestor] Adverse Reaction (Verified 05/14/20 22:24) Other CRAMPS turkey grease Adverse Reaction (Uncoded 05/14/20 22:24) Rash Home Medications: Ambulatory Orders Medication Instructions Recorded Cilostazol [Pletal] 50 mg PO BIDAC 09/01/13 Ezetimibe [Zetia] 10 mg PO QHS 09/01/13 Pantoprazole Sodium [Protonix] 40 mg PO BID 09/01/13 Aspirin E.C. [Ecotrin] 81 mg PO BID 01/24/16 metoprolol tartrate 100 mg tablet 100 mg PO BID #180 tab 10/05/18 nitroglycerin 0.4 mg sublingual 0.4 mg SUBLINGUAL Q5M PRN #25 tab 10/05/18 tablet Acetaminophen [Tylenol Extra 500 mg PO DAILY PRN PRN 04/12/19 Strength] Niacin (Inositol Niacinate) 1,000 mg PO DAILY 04/12/19 [Niacin 500 mg Capsule] Ferrous Sulfate [Iron] 325 mg PO BID #60 tab 04/14/19 clopidogrel 75 mg tablet 75 mg PO DAILY 11/22/19 Ascorbic Acid [Vitamin C] 500 mg PO DAILY 05/14/20 Past Medical History (Chronic Problems): Chronic Problems (Last Reviewed 05/15/20 @ 02:[address] Russ Rooney MD) Bilateral carotid bruits (Chronic) Bilateral carotid artery stenosis (Chronic) Type 2 diabetes mellitus (Chronic) History of aortic valve replacement with bioprosthetic valve (Chronic ~09/06/13) 21mm Trifecta pericardial prosthesis Nonrheumatic aortic (valve) stenosis (Chronic) Pure hypercholesterolemia (Chronic) Paroxysmal atrial fibrillation (Chronic) Essential hypertension (Chronic) History of coronary artery bypass surgery (Chronic) CABG x2- YADIRA to LAD, SVG to OM1 w/pulmonary vein isolation and isolation of the left atrial appendage 09/06/13 @ [facility] Atherosclerotic heart disease of [place] coronary artery without angina pectoris (Chronic) SOB (shortness of breath) on exertion (Chronic) Sleep disorder breathing (Chronic) GERD (gastroesophageal reflux disease) (Chronic) Psoriasis (Chronic) Effusion, left knee (Chronic) Osteoarthritis (Chronic) Sleep disorder (Chronic) Tobacco abuse (Chronic) [place] (obstructive sleep apnea) (Chronic) Surgical History: noncontributory - *Family History Paternal Family History: Family History (Last Reviewed 05/15/20 @ 02:[address] Russ Rooney MD) Mother Heart disease Cancer Father Heart disease Cancer Sister Cancer History Items: No pertinent history Smoking Status: Current some day smoker Tobacco Use: Cigarettes Objective: Vital Signs Temp Pulse Resp BP Pulse Ox 97.5 F L 81 18 140/73 H 93 05/15/20 06:07 05/15/20 07:00 05/15/20 06:07 05/15/20 06:07 05/15/20 06:07 Oxygen Delivery Method Room Air Weight: 166 lb 14.239 oz Body Mass Index (BMI) 30.5 Finger Stick Blood Glucose 195 Intake and Output for Last 24 Hours 05/13/20 05/14/20 05/15/20 23:59 23:59 23:59 Intake Total 0 / 0 Balance 0 / 0 Murmur Murmur: - - Patient had mid diastolic murmur well heard in the aortic valve area. 05/14/20 22:08: WBC 8.7, RBC 3.49 L, Hgb 8.9 L, Hct 30.1 L, MCV 86.2, MCH 25.5 L , MCHC 29.6 L, Plt Count 391, MPV 9.2, Immature Gran % (Auto) 0.500, Neut % (Auto) 67.8, Lymph % (Auto) 18.2 L, [place] % (Auto) 8.9, Eos % (Auto) 4.0, Baso % (Auto) 0.6, Absolute Neuts (auto) 5.9, Nucleated RBC % 0 05/14/20 22:08: Sodium 138, Potassium 4.0, Chloride 105, Carbon Dioxide 29.0, Anion Gap 4 L, BUN 17, Creatinine 1.16 H, Est GFR (MDRD) Af Amer 58 L, Est GFR (MDRD) Non-Af 48 L, BUN/Creatinine Ratio 14.7, Glucose 161 H, Calcium 8.6, Troponin I 0.033 05/15/20 02:30: Troponin I 0.036 05/15/20 05:18: Troponin I 0.024, Triglycerides 56, Cholesterol 175, LDL Cholesterol 111, VLDL Cholesterol 11, HDL Cholesterol 53 Rhythm: EKG: Electrocardiogram reveals normal sinus rhythm with LVH. ECHO: Will be evaluated by echocardiogram during this admission Stress Test: Scheduled to undergo stress test today. Cardiac Cath: CV S?surgery: Patient has a prior AVR/[place] tissue valve/aorto?coronary bypass surgery As well has bilateral carotid endarterectomy.
--- NOTE | 2020-05-15 12:42 | STRESSREP_ITS ---
Stress Test Report Date: 05-15-2020 Procedure: Pharmacologic stress nuclear imaging study Indications: Chest pain; CAD; CABG; status post AVR; PAF Consent: Per the patient Procedure: The patient underwent pharmacologic (Regadenoson) evaluation with a peak heart rate of 115 beats per minute (81%predicted maximal heart rate) and a peak blood pressure of 200/90 mmHg. The baseline ECG demonstrated sinus rhythm; left bundle branch block pattern. The peak pharmacologic ECG demonstrated no obvious ECG changes. There were no cardiac dysrhythmias pretest, during pharmacologic infusion, or recovery. The patient noted, chest discomfort which was reported as both right and left- sided for which she received nitroglycerin sublingual x1 and O2 nasal cannula and was evaluated by interventional cardiology and was subsequently noted to have spontaneous resolution of her symptoms.. The examination was discontinued secondary to completion of protocol. Impression: 1. Pharmacologic (Regadenoson) evaluation 2. Peak pharmacologic ECG with no obvious ECG changes. 3. There were no cardiac dysrhythmias pretest, during pharmacologic infusion, or recovery. 4. Nuclear images pending Myocardial perfusion imaging study: Technique: The patient was injected with 11.3 millicuries of technetium 99m Cardiolite and subsequently rest SPECT Cardiolite nuclear imaging was obtained in the horizontal long, vertical long, and short axis views. The patient underwent pharmacologic (Regadenoson) evaluation with a peak heart rate of 115 beats per minute (81% percent predicted maximal heart rate) and a peak blood pressure of 200/90 mmHg. The patient was injected with 32.8 millicuries of technetium 99m Cardiolite and subsequently stress SPECT Cardiolite nuclear imaging was obtained in the horizontal long, vertical long, and short axis views. A gated Cardiolite study at peak stress was obtained. Interpretation: Rest and stress SPECT Cardiolite nuclear imaging status post realignment, normalization, and attenuation correction demonstrate relative uniform tracer uptake and myocardial perfusion appearing within normal limits. There is end systolic thickening and brightening. The gated Cardiolite study demonstrates myocardial thickening and inward wall motion. The reported LVEF is 59%. Impression: 1. Rest and stress SPECT Cardiolite nuclear imaging demonstrate relative uniform tracer uptake and myocardial perfusion appearing within normal limits. 2. The gated Cardiolite study reports an LVEF of 59%. This note was generated with paymio software. It may contain incorrect words, spelling, and punctuation that were not noted in checking the note before signing.
[2020-05-15] MEDS: Metoprolol Tartrate 100 MG Tablet PO (13:19)
[2020-05-15] MEDS: Ascorbic Acid 500 MG Tablet PO (13:19)
[2020-05-15] MEDS: Clopidogrel Bisulfate 75 MG Tablet PO (13:19)
[2020-05-15] MEDS: Cilostazol 50 MG Tablet PO ×2 (13:19→17:25)
[2020-05-15] MEDS: Ferrous Sulfate 325 MG Tablet PO ×2 (13:19→17:26)
--- NOTE | 2020-05-15 13:41 | PCM.DC ---
- Discharge Diagnoses Current Active Problems: Current Active and Chronic Problems (Last Reviewed 05/15/20 @ 02:[address] Russ Rooney MD) Chest pain (Acute) Bilateral carotid bruits (Chronic) Bilateral carotid artery stenosis (Chronic) Type 2 diabetes mellitus (Chronic) History of aortic valve replacement with bioprosthetic valve (Chronic ~09/06/13) 21mm Trifecta pericardial prosthesis Nonrheumatic aortic (valve) stenosis (Chronic) Pure hypercholesterolemia (Chronic) Paroxysmal atrial fibrillation (Chronic) Essential hypertension (Chronic) History of coronary artery bypass surgery (Chronic) CABG x2- YADIRA to LAD, SVG to OM1 w/pulmonary vein isolation and isolation of the left atrial appendage 09/06/13 @ [facility] Atherosclerotic heart disease of [place] coronary artery without angina pectoris (Chronic) Atypical chest pain (Acute) SOB (shortness of breath) on exertion (Chronic) Sleep disorder breathing (Chronic) GERD (gastroesophageal reflux disease) (Chronic) Psoriasis (Chronic) Effusion, left knee (Chronic) Osteoarthritis (Chronic) Sleep disorder (Chronic) Tobacco abuse (Chronic) [place] (obstructive sleep apnea) (Chronic) You will use the following diet at home:: Cardiac Your food should be the consistency of: Regular Discharge Activity: Return to Normal Activity Weight Bearing Status: Weight bearing as tolerated Call your doctor if you observe: Fever of 101 or Higher, Shortness of breath, Dizziness, Fainting spells, Chest pain, Increased palpitations (irregular heartbeat), Uncontrolled pain Allergies/Adverse Reactions: Allergies Sulfa (Sulfonamide Antibiotics) Allergy (Severe, Verified 05/14/20 22:24) HEART RACING Latex, Natural Rubber Allergy (Verified 05/14/20 22:24) Rash, psioriasis amoxicillin [From Augmentin] Adverse Reaction (Verified 05/14/20 22:24) Nausea atorvastatin [From Lipitor] Adverse Reaction (Verified 05/14/20 22:24) Other CRAMPS clavulanic acid [From Augmentin] Adverse Reaction (Verified 05/14/20 22:24) Nausea Iodinated Contrast Media [CONTRASTS] Adverse Reaction (Verified 05/14/20 22:24) Other LOCKJAW niacin [From Niaspan Extended-Release] Adverse Reaction (Verified 05/14/20 22:24) Other FLUSH rosuvastatin [From Crestor] Adverse Reaction (Verified 01/20/21 22:24) Other CRAMPS turkey grease Adverse Reaction (Uncoded 05/14/20 22:24) Rash Medications to take at Discharge Cilostazol [Pletal] 50 mg PO BIDAC 09/01/13 Ezetimibe [Zetia] 10 mg PO QHS 09/01/13 Pantoprazole Sodium [Protonix] 40 mg PO BID 09/01/13 Aspirin E.C. [Ecotrin] 81 mg PO BID 01/24/16 metoprolol tartrate 100 mg tablet 100 mg PO BID #180 tab 10/05/18 nitroglycerin 0.4 mg sublingual tablet 0.4 mg SUBLINGUAL Q5M PRN #25 tab 10/05/18 Acetaminophen [Tylenol Extra Strength] 500 mg PO DAILY PRN PRN 04/12/19 Niacin (Inositol Niacinate) [Niacin 500 mg Capsule] 1,000 mg PO DAILY 04/12/19 Ferrous Sulfate [Iron] 325 mg PO BID #60 tab 04/14/19 clopidogrel 75 mg tablet 75 mg PO DAILY 11/22/19 Ascorbic Acid [Vitamin C] 500 mg PO DAILY 05/14/20 Primary Care Physician: Daisha Ramirez DO [Primary Care Provider] - Please follow up with your Primary Care Physician in: 1 week. Test Results: Test results from this visit will be discussed in further detail at your follow-up appointment, if applicable. Please Follow Up With: Ari Cruz MD When: Please call his office.
--- NOTE | 2020-05-15 13:43 | DS.PCM_ITS ---
Discharge Date and Diagnosis - Problem List Patient Problems: Active and Suspected Problems (Last Reviewed 05/15/20 @ 02:[address] Russ Rooney MD) Atypical chest pain (Acute) Date of Admission: 05/15/20 Date of Discharge: 05/15/20 - Primary Discharge Diagnosis Acute Problems: Active Problems (Last Reviewed 05/15/20 @ 02:[address] Russ Rooney MD) #1 atypical chest pain. #2 severe aortic stenosis. - Secondary Discharge Diagnosis Chronic Problems: Chronic Problems (Last Reviewed 05/15/20 @ 02:[address] Russ Rooney MD) Bilateral carotid bruits (Chronic) Bilateral carotid artery stenosis (Chronic) Type 2 diabetes mellitus (Chronic) History of aortic valve replacement with bioprosthetic valve (Chronic ~09/06/13) 21mm Trifecta pericardial prosthesis Nonrheumatic aortic (valve) stenosis (Chronic) Pure hypercholesterolemia (Chronic) Paroxysmal atrial fibrillation (Chronic) Essential hypertension (Chronic) History of coronary artery bypass surgery (Chronic) CABG x2- YADIRA to LAD, SVG to OM1 w/pulmonary vein isolation and isolation of the left atrial appendage 09/06/13 @ [facility] Atherosclerotic heart disease of [place] coronary artery without angina pectoris (Chronic) SOB (shortness of breath) on exertion (Chronic) Sleep disorder breathing (Chronic) GERD (gastroesophageal reflux disease) (Chronic) Psoriasis (Chronic) Effusion, left knee (Chronic) Osteoarthritis (Chronic) Sleep disorder (Chronic) Tobacco abuse (Chronic) [place] (obstructive sleep apnea) (Chronic) Hospital Course and Treatment Imaging Results: 05/15/20 05:55 Nuclear Stress Test - Chemical [NM] AM (NON MEDS) 05/15/20 08:17 Echo Complete [ECHO] Urgent Clinical Impression(s) from Imaging Studies Chest CTA 05/14/20 22:42 IMPRESSION: Normal CTA chest examination, without a demonstrated pulmonary embolism or arterial dissection. Stable COPD and emphysema. Lungs are clear. Stable mediastinal lymph nodes compared to 2017 exam Electronically Signed: Jamal Vasquez DO at 0:16 EST Tel , Service support , Chest X-Ray 05/14/20 22:58 IMPRESSION: Lungs are clear Electronically Signed: Jamal Vasquez DO at 23:36 EST Tel , Service support , Dr. Landers, cardiology. Operations: None Procedures: 2-D Echocardiogram, EKG, Stress test Summary of Care Provided: Patient seen and examined on the day of discharge and appeared to be stable to be discharged home. Her pain has been kind of atypical, intermittent but improved. Her vital signs are stable. The patient is a 79 year old F presented to the emergency room because of atypical chest pain and she was admitted for evaluation. EKG revealed normal sinus rhythm, inverted T waves in leads I, V4, V5 and V6 and peak T waves in leads V1 and V2, no acute ST elevation. Her troponin was negative x3. Routine blood work was remarkable only for chronic anemia with stable hemoglobin. Chest x-ray showed no acute findings. CTA of the chest showed no PE or dissection, no infiltrate or consolidation. Cardiology consulted and recommended 2D echocardiogram and nuclear stress test. Nuclear stress test done and showed no evidence of stress-induced myocardial ischemia. Acute ACS ruled out. 2D echocardiogram revealed ejection fraction 65% and severe aortic stenosis with aortic valve surface area of 0.89 cm? and mean gradient of 40.9 mhg. Patient had a history of aortic valve replacement with bioprosthetic valve back in [address] [facility]. After discussion with cardiology, patient will need evaluation for this severe arctic stenosis which was recurrent which can be done as outpatient. I called patient's laboratory asst at [facility], Dr. Cruz and I spoke with his nurse and I left a message and a request for the doctor to see this patient in the near future for this recurrent severe aortic stenosis and probably she would need referral to [facility] for further evaluation and treatment. I requested the patient to call Dr. Lopez office on Tuesday if they did not call her tomorrow or Tuesday. Patient discharged home in a stable condition, continued on her previous home medications without any changes, recommended follow-up with cardiology as above, follow-up with PCP in 1 week. Patient Problems: Active and Suspected Problems (Last Reviewed 05/15/20 @ 02:[address] Russ Rooney MD) Atypical chest pain (Acute) - Physical Exam Vitals/I&O's: Vital Signs Temp Pulse Resp BP Pulse Ox 98.1 F 89 18 154/65 H 96 05/15/20 12:00 05/15/20 13:19 05/15/20 12:00 05/15/20 12:00 05/15/20 12:00 Oxygen Delivery Method Room Air Weight: 166 lb 14.239 oz Body Mass Index (BMI) 30.5 Finger Stick Blood Glucose 195 Intake and Output for Last 24 Hours 05/13/20 05/14/20 05/15/20 23:59 23:59 23:59 Intake Total 0 / 0 Balance 0 / 0 General: Alert, Oriented x3, Cooperative, No apparent distress HEENT: Atraumatic, PERRLA, EOMI, Normocephalic Oral: Moist Mucosa, No Gingival or Mucosal Lesions/ Ulcerations Neck: Supple, No JVD, Negative Carotid Bruits, Trachea Midline, Thyroid Normal Size and Texture Lungs: Clear to auscultation, Normal air movement, No rhonchi, No wheeze, No rales, Diminished Cardiovascular: Regular rate, Regular Rhythm, Normal S1, Normal S2, Murmur Abdomen: Bowel Sounds Present, Soft, Non Tender, Non-Distended, No Hepato- splenomegaly Extremities: No clubbing, No cyanosis, No edema Skin: No rashes, No breakdown Lymphatic: No Cervical, Supraclavicular, or Inguinal Adenopathy Neurological: Cranial nerves II-XII grossly intact, Neuro grossly intact Psych/Mental Status: Normal Affect, Appropriate Laboratory Results 05/14/20 22:08: WBC 8.7, RBC 3.49 L, Hgb 8.9 L, Hct 30.1 L, MCV 86.2, MCH 25.5 L , MCHC 29.6 L, RDW Std Deviation 53.8 H, RDW Coeff of Velasquez 17.4 H, Plt Count 391, MPV 9.2, Immature Gran % (Auto) 0.500, Neut % (Auto) 67.8, Lymph % (Auto) 18.2 L, Cooper % (Auto) 8.9, Eos % (Auto) 4.0, Baso % (Auto) 0.6, Absolute Neuts (auto) 5.9, Absolute Lymphs (auto) 1.58, Nucleated RBC % 0 05/14/20 22:08: Sodium 138, Potassium 4.0, Chloride 105, Carbon Dioxide 29.0, Anion Gap 4 L, BUN 17, Creatinine 1.16 H, Estim Creat Clear Calc 31.10, Est GFR (MDRD) Af Amer 58 L, Est GFR (MDRD) Non-Af 48 L, BUN/Creatinine Ratio 14.7, Glucose 161 H, Calcium 8.6, Troponin I 0.033 05/15/20 02:30: Troponin I 0.036 05/15/20 05:18: Troponin I 0.024, Triglycerides 56, Cholesterol 175, LDL Cholesterol 111, VLDL Cholesterol 11, HDL Cholesterol 53 Current Medications Acetaminophen (Acetaminophen 500 Mg Tablet) 500 mg PO DAILY PRN PRN PRN Reason: Pain 1-10 or Fever Ascorbic Acid (Ascorbic Acid 500 Mg Tablet) 500 mg PO DAILY [facility] Last Admin: 05/15/20 13:19 Dose: 500 mg Documented by: Aspirin (Aspirin E.C. 81 Mg Tablet) [facility] Last Admin: 05/15/20 06:16 Dose: 81 mg Documented by: Cilostazol ([facility] 50 Mg Table[facility]) [facility] Last Admin: 05/15/20 13:19 Dose: 50 mg Documented by: Clopidogrel Bisulfate (Clopidogrel Bisulfate 75 Mg Tablet) 75 mg PO DAILY [facility] Last Admin: 05/15/20 13:19 Dose: 75 mg Documented by: Ezetimibe (Ezetimibe 10 Mg Tablet) 10 mg PO QHS [facility] Ferrous Sulfate (Ferrous Sulfate 325 Mg Tablet) [facility] Last Admin: 05/15/20 13:19 Dose: 325 mg Documented by: Hydralazine HCl (Hydralazine 20 Mg/Ml Vial) 10 mg IV Q4H PRN PRN PRN Reason: SBP > 160 or DBP > 120 Melatonin (Melatonin 3 Mg Tablet) 3 mg PO QHS PRN PRN PRN Reason: INSOMNIA Metoprolol Tartrate (Metoprolol Tartrate 100 Mg Tablet) 100 mg PO BID [facility] Last Admin: 05/15/20 13:19 Dose: 100 mg Documented by: Morphine Sulfate (Morphine 2 Mg/Ml Syringe) 2 mg IV Q3H PRN PRN PRN Reason: Pain Score 6-10 Ondansetron HCl (Ondansetron 4 Mg/2 Ml Vial) 4 mg IV Q8H PRN PRN PRN Reason: NAUSEA/VOMITING Pantoprazole Sodium (Pantoprazole Sodium 40 Mg Tablet) 40 mg PO BID [facility] Last Admin: 05/15/20 06:15 Dose: 40 mg Documented by: Senna/Docusate Sodium (Senna/Docusate Sodium 1 Tablet) 2 tablet PO BID PRN PRN PRN Reason: Constipation Sodium Chloride (0.9% Saline Lock 10 Ml Syringe) 10 - 40 ml IV UD PRN PRN Reason: SALINE FLUSH Last Admin: 05/15/20 06:09 Dose: 10 ml Documented by: Discharge Activity: Return to Normal Activity Weight Bearing Status: Weight bearing as tolerated Call your doctor if you observe: Fever of 101 or Higher, Shortness of breath, Dizziness, Fainting spells, Chest pain, Increased palpitations (irregular heartbeat), Uncontrolled pain Home Medications: Medications to take at Discharge Cilostazol [Pletal] 50 mg PO BIDAC 09/01/13 Ezetimibe [Zetia] 10 mg PO QHS 09/01/13 Pantoprazole Sodium [Protonix] 40 mg PO BID 09/01/13 Aspirin E.C. [Ecotrin] 81 mg PO BID 01/24/16 metoprolol tartrate 100 mg tablet 100 mg PO BID #180 tab 10/05/18 nitroglycerin 0.4 mg sublingual tablet 0.4 mg SUBLINGUAL Q5M PRN #25 tab 10/05/18 Acetaminophen [Tylenol Extra Strength] 500 mg PO DAILY PRN PRN 04/12/19 Niacin (Inositol Niacinate) [Niacin 500 mg Capsule] 1,000 mg PO DAILY 04/12/19 Ferrous Sulfate [Iron] 325 mg PO BID #60 tab 04/14/19 clopidogrel 75 mg tablet 75 mg PO DAILY 11/22/19 Ascorbic Acid [Vitamin C] 500 mg PO DAILY 05/14/20 Primary Care Physician: Daisha Ramirez DO [Primary Care Provider] - Please follow up with your Primary Care Physician in: 1 week. Please Follow Up With: Ari Cruz MD When: Please call his office. Disposition: Home Minutes spent on discharge:: 28 Patient Condition:: Stable Medical Necessity - Tobacco Use Smoking Status: Current some day smoker Tobacco Use: Cigarettes Meaningful Use Info Meaningful Use Diagnoses (Choose all that apply): None applicable OBSV E&M: 33690 Observ/hosp same date L2
== END 2020-05-15 13:42 | disposition home or self-care (01) ==
LOC: ED 05-15 00:31 → PCU 05-15 01:17
PROVIDERS: Admitting Provider Hospitalist; Emergency Provider Emergency Medicine; PCP Internal Medicine; Visit Provider Hospitalist
DX: R07.89 Other chest pain (principal); I35.0 Nonrheumatic aortic (valve) stenosis; K21.9 Gastro-esophageal reflux disease without esophagitis; I10 Essential (primary) hypertension; M19.90 Unspecified osteoarthritis, unspecified site; I48.0 Paroxysmal atrial fibrillation; E78.00 Pure hypercholesterolemia, unspecified; I25.10 Atherosclerotic heart disease of native coronary artery without angina pectoris; G47.33 Obstructive sleep apnea (adult) (pediatric); L40.9 Psoriasis, unspecified; E11.51 Type 2 diabetes mellitus with diabetic peripheral angiopathy without gangrene; F41.9 Anxiety disorder, unspecified; F17.210 Nicotine dependence, cigarettes, uncomplicated; H10.9 Unspecified conjunctivitis; Z79.899 Other long term (current) drug therapy; Z79.02 Long term (current) use of antithrombotics/antiplatelets; Z79.82 Long term (current) use of aspirin; Z95.3 Presence of xenogenic heart valve; Z95.1 Presence of aortocoronary bypass graft
CPT/HCPCS: 36415; 71045; 71275; 78452; 80048; 80061; 84484; 85025; 93005; 93017; 93306; 96374; 96375; 99218; 99285; A9500; Q9967; A4216; G0378; J2785

== ENCOUNTER → 2020-07-01 07:43 | Outpatient (CLI) | payer MEDICARE, SELFPAY ==
[2020-05-15 02:06] VITALS: BMI 30.5
[2020-07-01] VITALS (8 sets, daily range): BP systolic 112–145; BP diastolic 46–68; PULSE 70–82; RESP 16; TEMP 35.9–36.1; O2SAT 96–98; BMI 30.5
[2020-07-01] MEDS: 0.9% NaCl Peripheral Flush Adult/Peds IV (08:05)
[2020-07-01] MEDS: Furosemide 20 MG/2 ML VIAL IV ×2 (11:40→15:12)
== END ==
PROVIDERS: PCP Internal Medicine; Referring Provider Nurse Practitioner; Visit Provider Nurse Practitioner
DX: D50.0 Iron deficiency anemia secondary to blood loss (chronic) (principal)
CPT/HCPCS: 36430; 86850; 86900; 86901; 86920; 86922; J7040; P9016; A4216; J1940

== ENCOUNTER → 2020-08-20 15:02 | Outpatient (CLI) | payer MEDICARE, SELFPAY ==
[2020-07-01 08:00] VITALS: BMI 30.5
[2020-08-20 15:17] LABS: Hematocrit 26.6 % (37-47); Hemoglobin 7.5 g/dL (12.0-15.0); Mean Corp Hgb Conc 28.2 g/dL (32-36); Mean Corpuscular Hgb 24.8 pg (27.0-32.0); Mean Corpuscular Volume 88.1 fL (81-99); Mean Platelet Vol. 9.7 fl (6.2-12.0); Platelet Count 347 K/mm3 (150-450); RBC Distribution Width CV 17.6 % (11.6-14.6); RBC Distribution Width SD 55.5 fl (35.1-43.9); Red Blood Count 3.02 M/mm3 (4.2-5.4); White Blood Count 9.9 K/mm3 (4.4-11.0)
== END ==
PROVIDERS: PCP Internal Medicine; Referring Provider Internal Medicine; Visit Provider Internal Medicine
DX: R53.83 Other fatigue (principal)
CPT/HCPCS: 85027

== ENCOUNTER → 2020-08-21 07:40 | Outpatient (CLI) | payer MEDICARE, SELFPAY ==
[2020-07-01 08:00] VITALS: BMI 30.5
[2020-08-21] VITALS (9 sets, daily range): BP systolic 111–153; BP diastolic 45–83; PULSE 72–85; RESP 16; TEMP 36.3–37; O2SAT 96–99; BMI 30.2
[2020-08-21] MEDS: 0.9% NaCl Peripheral Flush Adult/Peds IV (08:57)
[2020-08-21] MEDS: Furosemide 20 MG/2 ML VIAL IV (11:38)
== END ==
PROVIDERS: PCP Internal Medicine; Referring Provider Internal Medicine; Visit Provider Internal Medicine
DX: D50.0 Iron deficiency anemia secondary to blood loss (chronic) (principal)
CPT/HCPCS: 36415; 36430; 86850; 86900; 86901; 86920; 86922; J7040; P9016; A4216; J1940

== ENCOUNTER → 2020-10-10 07:58 | Outpatient (CLI) | payer MEDICARE, SELFPAY ==
[2020-08-21 07:54] VITALS: BMI 30.2
[2020-10-10] VITALS (7 sets, daily range): BP systolic 112–139; BP diastolic 38–53; PULSE 67–82; RESP 16; TEMP 36–36.6; O2SAT 97–99; BMI 30.2
[2020-10-10] MEDS: 0.9% NaCl Peripheral Flush Adult/Peds IV (10:11)
[2020-10-10] MEDS: Furosemide 20 MG/2 ML VIAL IV (11:14)
== END ==
PROVIDERS: PCP Internal Medicine; Referring Provider Internal Medicine; Visit Provider Internal Medicine
DX: D50.0 Iron deficiency anemia secondary to blood loss (chronic) (principal)
CPT/HCPCS: 36415; 36430; 86850; 86900; 86901; 86920; 86922; J7040; J7050; P9016; A4216; J1940

== ENCOUNTER → 2020-11-21 07:32 | Outpatient (CLI) | payer MEDICARE, SELFPAY ==
[2020-10-10 08:23] VITALS: BMI 30.2
[2020-11-21] VITALS (8 sets, daily range): BP systolic 121–161; BP diastolic 41–54; PULSE 71–86; RESP 16–18; TEMP 36.2–36.4; O2SAT 97–100; BMI 29.6
[2020-11-21] MEDS: 0.9% NaCl Peripheral Flush Adult/Peds IV (08:11)
[2020-11-21] MEDS: Furosemide 20 MG/2 ML VIAL IV (10:55)
== END ==
PROVIDERS: PCP Internal Medicine; Referring Provider Internal Medicine; Visit Provider Internal Medicine
DX: D58.9 Hereditary hemolytic anemia, unspecified (principal)
CPT/HCPCS: 36415; 36430; 86644; 86850; 86900; 86901; 86920; 86922; J7040; P9016; P9040; A4216; J1940

== ENCOUNTER 2020-12-15 00:12 | Emergency (ER) | payer MEDICARE, SELFPAY ==
[2020-12-15] VITALS (30 sets, daily range): BP systolic 120–161; BP diastolic 50–93; PULSE 71–844; RESP 15–143; TEMP 36.6–37.1; O2SAT 94–99; BMI 31.3
--- NOTE | 2020-12-15 00:50 | RAD_ITS ---
STUDY: X-RAY CHEST REASON FOR EXAM: Female, 80 years old. Chest pain TECHNIQUE: Portable, upright, AP chest radiograph COMPARISON: 06/30/2020 FINDINGS: CABG, atrial exclusion device, and bilateral axillary surgical clips redemonstrated. The lungs are clear and expanded. There is no demonstrated pleural abnormality. Normal size heart. Normal mediastinum and erasmo. Normal visualized pulmonary arteries. Normal visualized aortic arch and descending thoracic aorta. There are diffuse degenerative changes of the visualized thoracic spine. There is degenerative osteoarthritis of the bilateral shoulders. There is no demonstrated abnormality of the visualized soft tissue structures of the upper abdomen. RAD/Chest 1 View (Portable) IMPRESSION: No acute abnormal cardiopulmonary finding. Electronically Signed: Fredi Hirsch MD at 1:32 EDT Tel , Service support ,
--- NOTE | 2020-12-15 00:50 | EKG12_ITS ---
Test Reason : CP Blood Pressure : / mmHG Vent. Rate : 089 BPM Atrial Rate : 089 BPM P-R Int : 174 ms QRS Dur : 126 ms QT Int : 386 ms P-R-T Axes : 069 -01 143 degrees QTc Int : 469 ms Normal sinus rhythm Left bundle branch block Abnormal ECG Confirmed by FAYE DELGADILLO, KAREN ([id number]), online editor CHRISTIN BARTHOLOMEW ([id number]) on 12/18/2020 10:14:14 AM Referred By: ZEE Confirmed By:KAREN MCKINNEY MD
--- NOTE | 2020-12-15 00:57 | ED.VIS.CHEST ---
HPI History of Present Illness Chief Complaint: Chest Pain Informant: patient Onset/Context/Timing Onset: Today Timing: Intermittent Quality: Positive for Heaviness Location: Substernal Current Severity: Gone Maximum Severity: Mild Worsened By: Nothing Associated Symptoms: Positive for Nausea and Vomiting Narrative Prior Similar Symptoms: Yes Recent Illness/Hospitalization: Yes CVD Risk Factors: Positive for Hypertension, Diabetes and Hypercholesterolemia PE Risk Factors: Negative for Recent Travel/Surgery and Prior DVT or PE TAD Risk Factors: Positive for Marfan's Syndrome PFSH [facility] Medical History Atherosclerotic heart disease of [place] coronary artery without angina pectoris Atypical chest pain Bilateral carotid artery stenosis Bilateral carotid bruits CAD (coronary artery disease) Carotid stenosis Jayson's syndrome Effusion, left knee Essential hypertension GERD (gastroesophageal reflux disease) History of left heart catheterization (LHC) (~07/14/20) HTN (hypertension) Nonrheumatic aortic (valve) stenosis [place] (obstructive sleep apnea) Osteoarthritis Paroxysmal atrial fibrillation PND (post-nasal drip) Psoriasis Pure hypercholesterolemia Sleep disorder Sleep disorder breathing SOB (shortness of breath) on exertion TIA (transient ischemic attack) Tobacco abuse Type 2 diabetes mellitus Home Medications cilostazol 50 mg PO BIDAC 09/01/13 [History Last Taken 04/12/19] ezetimibe 10 mg PO QHS 09/01/13 [History Last Taken 04/11/19] pantoprazole 40 mg PO BID 09/01/13 [History Last Taken 04/12/19] aspirin 81 mg PO BID 01/24/16 [History Last Taken 04/11/19] metoprolol tartrate 100 mg tablet 100 mg PO BID #180 tab 10/05/18 [Rx Last Taken 04/12/19] nitroglycerin 0.4 mg sublingual tablet 0.4 mg SUBLINGUAL Q5M PRN #25 tab 10/05/18 [Rx Last Taken 04/12/19] acetaminophen 500 mg PO DAILY PRN PRN 04/12/19 [History Last Taken 04/08/19] niacin (inositol niacinate) 1,000 mg PO DAILY 04/12/19 [History Last Taken 04/12/19] clopidogrel 75 mg tablet 75 mg PO DAILY 11/22/19 [History Last Taken Unknown] ascorbic acid (vitamin C) 500 mg PO DAILY 05/14/20 [History Last Taken Unknown] ferrous sulfate 325 mg PO DAILY 08/21/20 [History Last Taken Unknown] furosemide [Lasix] 20 mg DAILY 12/15/20 [History Last Taken Unknown] Allergy/AdvReac Type Severity Reaction Status Date / Time Sulfa (Sulfonamide Allergy Severe HEART Verified 12/15/20 00:25 Antibiotics) RACING Latex, Natural Rubber Allergy Rash, Verified 12/15/20 00:25 psioriasis amoxicillin [From Augmentin] AdvReac Nausea Verified 12/15/20 00:25 atorvastatin [From Lipitor] AdvReac Other Verified 12/15/20 00:25 clavulanic acid AdvReac Nausea Verified 12/15/20 00:25 [From Augmentin] Iodinated Contrast Media AdvReac Other Verified 12/15/20 00:25 [CONTRASTS] niacin AdvReac Other Verified 12/15/20 00:25 [From Niaspan Extended-Release] rosuvastatin [From Crestor] AdvReac Other Verified 12/15/20 00:25 turkey grease AdvReac Rash Uncoded 12/15/20 00:25 Family History Mother Heart disease Cancer Father Heart disease Cancer Sister Cancer Surgical History History of aortic valve replacement with bioprosthetic valve (~09/06/13) History of bilateral carotid endarterectomy History of coronary artery bypass surgery (~09/06/13) History of left mastectomy (~1998) History of right mastectomy (~1998) History of tubal ligation Social History Smoking Status: Former smoker second hand exposure: Yes alcohol intake: never substance use type: does not use caffeine: Yes Type: coffee Number of servings: 2 what type of physical activity do you participate in: none ROS ROS ED ROS Narrative Denies recent illness. States she has felt weak recently. Review of Systems ROS Unobtainable: Denies due to encephalopathy Constitutional Constitutional ED: Denies chills or fever(s) Eyes Eyes: Denies none ENT ENT ED: Denies ear pain or sore throat Cardiovascular Cardiovascular: Reports as per HPI and chest pain Respiratory/Chest Respiratory/Chest: Denies cough or dyspnea Gastrointestinal Gastrointestinal: Reports nausea and vomiting; Denies abdominal pain or diarrhea Genitourinary Genitourinary ED: Denies dysuria Musculoskeletal Musculoskeletal: Denies myalgias Integumentary Denies rash Neurologic Neurologic: Denies headache(s) Psychiatric Psychiatric: Denies depression Endocrine Endocrinology: Denies polyuria Hematologic/Lymphatic Hematologic/Lymphatic: Denies easy bruising Allergic/Immunologic Allergic/Immunologic ED: Denies urticaria EXAM Physical Exam Narrative Exam Narrative: 80-year-old female no acute distress vital signs stable afebrile. Pulse ox 97%. HEENT exam unremarkable. Lungs are clear equal symmetrical. Heart regular rhythm for over 6 murmur. Abdomen soft nontender. Const Vital Signs: 12/15/20 00:13 12/15/20 00:29 12/15/20 00:56 Temperature 98.4 F Temperature Source Oral Pulse Rate 86 Respiratory Rate 16 Respiratory Effort Normal Blood Pressure 141/52 H Blood Pressure Mean 81 Blood Pressure Source Blood Pressure Position Blood Pressure Location Pulse Ox 97 95 Oxygen Delivery Method Room Air Room Air 12/15/20 03:00 12/15/20 03:04 12/15/20 03:15 Temperature 98.2 F 98.1 F 98.4 F Temperature Source Oral Oral Oral Pulse Rate 79 844 H 84 Respiratory Rate 17 16 16 Respiratory Effort Blood Pressure 140/60 H 146/61 H 138/57 H Blood Pressure Mean 86 89 84 Blood Pressure Source Monitor Monitor Blood Pressure Position Semi-Fowlers Semi-Fowlers Blood Pressure Location Left Arm Left Arm Pulse Ox 98 96 97 Oxygen Delivery Method Room Air Room Air Room Air 12/15/20 03:19 12/15/20 03:24 12/15/20 03:25 Temperature 98.5 F 98.4 F 98.4 F Temperature Source Oral Oral Oral Pulse Rate 79 82 81 Respiratory Rate 17 16 16 Respiratory Effort Blood Pressure 141/58 H 153/50 H 153/50 H Blood Pressure Mean 85 84 84 Blood Pressure Source Monitor Monitor Blood Pressure Position Semi-Fowlers Supine Blood Pressure Location Left Arm Left Arm Pulse Ox 97 94 98 Oxygen Delivery Method Room Air Room Air Room Air 12/15/20 04:19 12/15/20 05:45 12/15/20 05:46 Temperature 98.4 F 98.5 F 98.8 F Temperature Source Oral Oral Oral Pulse Rate 84 80 86 Respiratory Rate 17 16 16 Respiratory Effort Blood Pressure 120/63 144/62 H 161/66 H Blood Pressure Mean 82 89 97 Blood Pressure Source Monitor Monitor Blood Pressure Position Semi-Fowlers Blood Pressure Location Left Arm Left Arm Pulse Ox 98 97 98 Oxygen Delivery Method Room Air Room Air Room Air 12/15/20 05:50 12/15/20 06:24 12/15/20 06:38 Temperature 98.4 F 98 F Temperature Source Oral Oral Pulse Rate 80 77 75 Respiratory Rate 17 18 17 Respiratory Effort Blood Pressure 126/58 H 146/62 H 123/54 H Blood Pressure Mean 80 90 77 Blood Pressure Source Monitor Blood Pressure Position Semi-Fowlers Blood Pressure Location Left Arm Pulse Ox 98 98 97 Oxygen Delivery Method Room Air Room Air Room Air Positive well nourished and well developed General Appearance ED: well developed and NAD HEENT Reports moist mucous membranes normocephalic and atraumatic; Negative for trauma or tenderness Eyes PERRL and EOMs intact bilaterally Neck no lymphadenopathy, supple and no JVD General: Negative for tenderness Chest Wall inspection of chest normal and palpation of chest normal Resp normal respiratory effort and clear to auscultation bilaterally Effort and Inspection: respiratory distress Auscultation: Negative for rales, rhonchi or wheezes Cardio regular rate and regular rhythm Rate: other Other Details: For 6 murmur. GI normal to inspection, nondistended, normoactive bowel sounds, soft to palpation, non-tender, non-distended and no masses Auscultation: Negative for hyperactive bowel sounds Back/Spine no CVA tenderness Extremity normal to inspection General Extremety ED: Negative for edema or tenderness General Extremity: Negative for edema Neuro oriented x3 Sensorium / Orientation: awake, alert, oriented to person and oriented to place Motor Exam: strength 5/5 throughout Psych mental status grossly normal Mood & Affect: Negative for depressed Skin no rashes or lesions noted and no wounds General Skin Exam: Negative for jaundice Heart Score History: Moderately Suspicious ECG: Normal Age: >/= 65 years Risk Factors: >/= 3 Risk Factors or History of CAD Troponin: </= Normal Limit Score: 5 MDM MDM MDM Narrative Medical decision making narrative: 80-year-old female history of coronary disease. Chest pain is concerning. Exam benign. Chronic murmur. She undergo cardiac work-up. Repeat exam patient doing well at 1:29 AM. I will speak to the hospitalist about admission. Repeat exam patient is doing well at 5 AM. The hospitalist has not admitted her as of this time. The patient is doing well. I do not find any need to transfer her. She is having all of her chronic conditions specifically for aortic stenosis being followed and worked up at [facility] facilities. Her last blood transfusion was 2 months ago in September. She said her symptoms tonight were no different than they have been in the past. She did not realize her blood count was so low. She is currently receiving her first unit of blood and is doing well. Lab Data Attestation: I reviewed the patient's lab results. Lab results narrative: CBC shows a white count of 10. Hemoglobin of 5.7. Patient has a history of chronic anemia requiring transfusions. She was transfused several weeks ago. She has been typed and crossed and will be started on transfusion again. Electrolytes potassium 3.4 gap of 6 creatinine 1.1. High-sensitivity troponin 49. Labs: Laboratory Results - last 24 hr 12/15/20 12/15/20 12/15/20 00:34 01:15 Unknown WBC 10.5 RBC 2.30 L Hgb 5.7 L* Hct 19.7 L MCV 85.7 MCH 24.8 L MCHC 28.9 L RDW Std Deviation 54.7 H RDW Coeff of Velasquez 17.6 H Plt Count 316 MPV 9.7 Immature Gran % (Auto) 1.400 H Neut % (Auto) 78.1 H Lymph % (Auto) 10.7 L Saline % (Auto) 6.2 Eos % (Auto) 3.1 Baso % (Auto) 0.5 Absolute Neuts (auto) 8.2 H Absolute Lymphs (auto) 1.12 Nucleated RBC % 0.3 Sodium 138 Potassium 3.4 L Chloride 102 Carbon Dioxide 30.0 Anion Gap 6 BUN 22 H Creatinine 1.13 H Estim Creat Clear Calc 31.40 Est GFR (MDRD) Af Amer 60 Est GFR (MDRD) Non-Af 49 L BUN/Creatinine Ratio 19.5 Glucose 133 H Calcium 8.4 L Troponin I High Sens 49 Blood Type A POSITIVE Antibody Screen NEGATIVE Crossmatch See Detail Radiography Chest X-Ray - ED: 1 View, Read by ED Physician, Normal, Heart, Lungs, Mediastinum, Bony Structures, No Acute Disease and Chronic Changes Diagnostic Testing: Radiology Impression Chest X-Ray 12/15/20 00:50 IMPRESSION: No acute abnormal cardiopulmonary finding. Electronically Signed: Fredi Hirsch MD at 1:32 EDT Tel , Service support , Portable single view chest x-ray interpreted by myself shows no acute abnormality. Chronic changes. No acute change. Prior sternotomy. Rhythm Strip Rhythm Strip: Sinus Rhythm Rate: 89 Ectopy: None EKG Initial EKG: Attestation: I personally reviewed and interpreted this EKG as follows: Interpretation: Sinus Rhythm and No Acute Injury Pattern Comments: Normal sinus rhythm rate 89. Interim ventricular conduction delay. 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 Prior EKG tracings: available for review Prior: Unchanged Follow-up EKG: Attestation: I personally reviewed and interpreted this EKG as follows: Interpretation: Sinus Rhythm and No Acute Injury Pattern Comments: Repeat EKG was obtained by nursing staff to the patient having recurrent chest pain. Patient often has chest pain. Second EKG showed a normal sinus rhythm with no acute change. Patient has an old septal infarct. Discharge Plan Dx/Rx/DC Orders Clinical Impression: Acute on chronic anemia, Chest pain, History of coronary artery disease, History of heart valve replacement Disposition Disposition: [facility]
[2020-12-15 01:05] LABS: Absolute Lymphocyte Count 1.12 X10^3/uL (0.83-4.51); Absolute Neutrophil Count 8.2 X10^3/uL (2.0-7.7); Basophil# 0.05 X10^3/uL; Basophil% 0.5 % (0-1); Eosinophil# 0.33 X10^3/uL; Eosinophils% 3.1 % (0-5); Hematocrit 19.7 % (37-47); Lymphocyte # 1.12 X10^3/ul (0.83-4.51); Lymphocyte % 10.7 % (19-41); Mean Corp Hgb Conc 28.9 g/dL (32-36); Mean Corpuscular Hgb 24.8 pg (27.0-32.0); Mean Corpuscular Volume 85.7 fL (81-99); Mean Platelet Vol. 9.7 fl (6.2-12.0); Monocyte# 0.65 X10^3/uL; Monocyte% 6.2 % (0-10); NRBC Flagged by Analyzer 0.3 % (0-5); Neutrophil # 8.18 X10^3/uL (2.7-7.7); Neutrophil % 78.1 % (47-70); POSITIVE COUNT YES; Platelet Count 316 K/mm3 (150-450); RBC Distribution Width CV 17.6 % (11.6-14.6); RBC Distribution Width SD 54.7 fl (35.1-43.9); White Blood Count 10.5 K/mm3 (4.4-11.0)
[2020-12-15 01:12] LABS: Hemoglobin 5.7 g/dL (12.0-15.0)
[2020-12-15 01:24] LABS: Anion Gap 6 (5-15); BUN 22 mg/dL (7-18); BUN/Creat Ratio 19.5 RATIO (10-20); Calcium,Total 8.4 mg/dL (8.5-10.1); Chloride 102 mmol/L (98-107); Creatinine, Serum 1.13 mg/dL (0.55-1.02); EST Glomerular Filtration Rate 49 mL/min (>60); Est Glom Filt Rate - Afr Amer 60 mL/min (>60); Glucose 133 mg/dL (74-106); Potassium 3.4 mmol/L (3.5-5.1); Sodium Level 138 mmol/L (136-145); Troponin-I HS 49 pg/mL (3.0-54.0)
--- NOTE | 2020-12-15 02:09 | PCM.HP.STD ---
HPI - General HPI Narrative SAMMY SOLOMON, is a 80 F with a significant history of CAD status post 2 vessel-CABG and bovine aortic valve replacements; and chronic anemia who presents to emergency department with 1 day history of chest tightness. Her symptoms started with her first feeling warm. After which she vomited. She attributes her feeling warm to her severe aortic stenosis. In regard to her chest tightness it radiates to her back. She took multiple deep breaths and her symptoms improved. She denies any aggravating factor to her chest tightness. Associated with her symptoms is presyncope x2 and dyspnea. [facility] Medical History Atherosclerotic heart disease of [place] coronary artery without angina pectoris Atypical chest pain Bilateral carotid artery stenosis Bilateral carotid bruits CAD (coronary artery disease) Carotid stenosis Jayson's syndrome Effusion, left knee Essential hypertension GERD (gastroesophageal reflux disease) History of left heart catheterization (LHC) (~07/14/20) HTN (hypertension) Nonrheumatic aortic (valve) stenosis [place] (obstructive sleep apnea) Osteoarthritis Paroxysmal atrial fibrillation PND (post-nasal drip) Psoriasis Pure hypercholesterolemia Sleep disorder Sleep disorder breathing SOB (shortness of breath) on exertion TIA (transient ischemic attack) Tobacco abuse Type 2 diabetes mellitus Home Medications cilostazol 50 mg PO BIDAC 09/01/13 [History Last Taken 04/12/19] ezetimibe 10 mg PO QHS 09/01/13 [History Last Taken 04/11/19] pantoprazole 40 mg PO BID 09/01/13 [History Last Taken 04/12/19] aspirin 81 mg PO BID 01/24/16 [History Last Taken 04/11/19] metoprolol tartrate 100 mg tablet 100 mg PO BID #180 tab 10/05/18 [Rx Last Taken 04/12/19] nitroglycerin 0.4 mg sublingual tablet 0.4 mg SUBLINGUAL Q5M PRN #25 tab 10/05/18 [Rx Last Taken 04/12/19] acetaminophen 500 mg PO DAILY PRN PRN 04/12/19 [History Last Taken 04/08/19] niacin (inositol niacinate) 1,000 mg PO DAILY 04/12/19 [History Last Taken 04/12/19] clopidogrel 75 mg tablet 75 mg PO DAILY 07/30/20 [History Last Taken Unknown] ascorbic acid (vitamin C) 500 mg PO DAILY 05/14/20 [History Last Taken Unknown] ferrous sulfate 325 mg PO DAILY 08/21/20 [History Last Taken Unknown] furosemide [Lasix] 20 mg DAILY 12/15/20 [History Last Taken Unknown] Allergy/AdvReac Type Severity Reaction Status Date / Time Sulfa (Sulfonamide Allergy Severe HEART Verified 12/15/20 00:25 Antibiotics) RACING Latex, Natural Rubber Allergy Rash, Verified 12/15/20 00:25 psioriasis amoxicillin [From Augmentin] AdvReac Nausea Verified 12/15/20 00:25 atorvastatin [From Lipitor] AdvReac Other Verified 12/15/20 00:25 clavulanic acid AdvReac Nausea Verified 12/15/20 00:25 [From Augmentin] Iodinated Contrast Media AdvReac Other Verified 12/15/20 00:25 [CONTRASTS] niacin AdvReac Other Verified 12/15/20 00:25 [From Niaspan Extended-Release] rosuvastatin [From Crestor] AdvReac Other Verified 12/15/20 00:25 turkey grease AdvReac Rash Uncoded 12/15/20 00:25 Family History Mother Heart disease Cancer Father Heart disease Cancer Sister Cancer Surgical History History of aortic valve replacement with bioprosthetic valve (~09/06/13) History of bilateral carotid endarterectomy History of coronary artery bypass surgery (~09/06/13) History of left mastectomy (~1998) History of right mastectomy (~1998) History of tubal ligation Social History Smoking Status: Former smoker second hand exposure: Yes alcohol intake: never substance use type: does not use caffeine: Yes Type: coffee Number of servings: 2 what type of physical activity do you participate in: none ROS ROS Narrative Constitutional: Denies anorexia and change in weight Eyes: Denies blurry vision, change in eye color, change in vision, discharge from eye(s), double vision, erythema, eye pain, loss of vision or other HEENT: Denies abnormal hearing, dysphagia, ear pain, epistaxis, headache(s), hearing loss, nasal congestion, nasal discharge, post nasal drip, sinus pressure, sore throat or other Cardiovascular: Reports chest pain. Denies orthopnea and paroxysmal nocturnal dyspnea Respiratory/Chest: Denies cough, excessive phlegm production, shortness of breath with exertion and wheezing Gastrointestinal: Reports vomiting. Denies abdominal pain, coffee ground emesis, constipation, diarrhea, dyspepsia, hematemesis, hematochezia, loose stools, melena, nausea, or other Genitourinary: Denies burning urination, difficulty urinating, dysuria, hematuria, nocturia, urinary frequency, urinary hesitancy, urinary incontinence, urinary urgency or other Musculoskeletal: Denies arthralgias, back pain, joint pain, joint stiffness, joint swelling, myalgias, neck pain or other Neurologic: Denies abnormal gait, abnormal speech, confusion, disequilibrium, dizziness, focal weakness, headache(s), numbness, paresthesias, seizure-like activity, seizures, tingling, tremor(s) or other Psychiatric: Denies anxiety, depression, homicidal ideation, suicidal ideation or other Endocrinology: Denies change in body appearance, cold intolerance, excessive sweating, heat intolerance, polydipsia, polyuria or other Hematologic/Lymphatic: Reports anemia. Denies easy bleeding, easy bruising, lymphadenopathy or other Integumentary: Denies rashes on buttocks. Allergic/Immunologic: Denies rhinitis, hives, eczema, asthma or other Vital Signs Vital Signs Vital Signs: 12/15/20 00:13 12/15/20 00:29 12/15/20 00:56 Temperature 98.4 F Temperature Source Oral Pulse Rate 86 Respiratory Rate 16 Respiratory Effort Normal Blood Pressure 141/52 H Blood Pressure Mean 81 Pulse Ox 97 95 Oxygen Delivery Method Room Air Room Air Weight Weight: 77.6 kg Body Mass Index (BMI) 31.3 Physical Exam Narrative Physical exam: General: Well-nourished, well-developed, no acute distress Head: Normocephalic, atraumatic, no tenderness Eyes: PERRLA, EOMI ENT, no trauma, moist mucous membranes, no rhinorrhea Neck: Nontender, full range of motion, no spinal tenderness, deformities, step-off CVS: Regular rate and rhythm. Murmur 5 out of 6 present. Respiratory no acute distress, clear to auscultation bilaterally, chest wall nontender, no wheezing Abdomen: Soft, nontender, nondistended, normal bowel sounds, no masses : Deferred Back: Nontender, no CVA tenderness, no midline spinal tenderness, deformities, step-offs Extremities: Nontender full range of motion, no trauma Skin: Normal color, no trauma, abrasions Neuro: Alert, oriented, cranial nerves II through XII grossly intact. Psychiatry: Normal mood. Normal affect. Not depressed. Not anxious. Results Lab / Micro Data Result Diagrams: 12/15/20 00:34 12/15/20 Unknown Labs: Laboratory Results - last 24 hr 12/15/20 00:34: WBC 10.5, RBC 2.30 L, Hgb 5.7 L*, Hct 19.7 L, MCV 85.7, MCH 24.8 L, MCHC 28.9 L, RDW Std Deviation 54.7 H, RDW Coeff of Velasquez 17.6 H, Plt Count 316, MPV 9.7, Immature Gran % (Auto) 1.400 H, Neut % (Auto) 78.1 H, Lymph % (Auto) 10.7 L, [place] % (Auto) 6.2, Eos % (Auto) 3.1, Baso % (Auto) 0.5, Absolute Neuts (auto) 8.2 H, Absolute Lymphs (auto) 1.12, Nucleated RBC % 0.3 12/15/20 01:15: Crossmatch See Detail 12/15/20 : Sodium 138, Potassium 3.4 L, Chloride 102, Carbon Dioxide 30.0, Anion Gap 6, BUN 22 H, Creatinine 1.13 H, Estim Creat Clear Calc 31.40, Est GFR (MDRD) Af Amer 60, Est GFR (MDRD) Non-Af 49 L, BUN/Creatinine Ratio 19.5, Glucose 133 H, Calcium 8.4 L, Troponin I High Sens 49 Rhythm Strip Rhythm Strip: Sinus Rhythm Rate: 89 Ectopy: None Radiology Impression Chest X-Ray 12/15/20 00:50 IMPRESSION: No acute abnormal cardiopulmonary finding. Electronically Signed: Fredi Hirsch MD at 1:32 EDT Tel , Service support , Assessment & Plan Assessment/Plan (1) Severe aortic stenosis: (2) Acute on chronic anemia: PLAN: Severe aortic stenosis CXR showed no acute abnormal cardiopulmonary finding. Actual CXR was independently interpreted and I agree with radiologist interpretation. EKG upon my interpretation shows left bundle branch block. Previous EKG reviewed showed LBBB which is unchanged from current. Initial high sensitivity troponin is negative. Review of charts showed that patient has a history of aorto?coronary bypass surgery in August 2013; and also [place] aortic valve replacement/tissue valve at that same time. Patient had a stress test at our hospital on 05/15/2020. Impression of stress test report by cardiology: 1. Rest and stress SPECT Cardiolite nuclear imaging demonstrate relative uniform tracer uptake and myocardial perfusion appearing within normal limits. 2. The gated Cardiolite study reports an LVEF of 59%. Echocardiogram on 05/15/2020 showed severe aortic stenosis. Cardiac cath at [facility] showed patent YOO graft, patent SVG to the left circumflex obtuse marginal branch, right coronary with mild diffuse disease. Mild disease in the left main and proximal LAD. Discussed with emergency doctor to discuss case with cardiology. Patient was seen and examined. After examination case were discussed with cardiology who recommended that patient be transferred to outside institution where she is being followed up for her aortic stenosis and with plan to do TAVR vs Surgical AVR. Case was accordingly discussed with ED doc. Symptomatic anemia Hgb on presentation was 5.7. Patient reports history of multiple transfusions and a history of iron replacement. Per ED doc, patient has been typed and crossed for 3 units of blood; and with plans to give 2 units as soon as possible. Charges/Coding Multi Select Codes Visit Charges Office Visit/Consults: 30267 ED Visit; Moderate Severity
[2020-12-15] MEDS: Furosemide 20 MG/2 ML VIAL IV ×2 (05:24→08:59)
--- NOTE | 2020-12-15 06:26 | NURSING ---
Addendum entered by hTelma Sánchez RN 12/15/20 06:27: transfusion stopped for this time to alert doctor Original Note: patient c/o chest pain that is new again for her and denies chikks, fever itching, back pain, etc. Called for ECG and blood transfusioni stopped for this tinm
--- NOTE | 2020-12-15 06:35 | EKG12_ITS ---
Test Reason : REPEAT-CP Blood Pressure : / mmHG Vent. Rate : 076 BPM Atrial Rate : 076 BPM P-R Int : 164 ms QRS Dur : 118 ms QT Int : 404 ms P-R-T Axes : 060 -05 138 degrees QTc Int : 454 ms Normal sinus rhythm Septal infarct , age undetermined ST & T wave abnormality, consider lateral ischemia Abnormal ECG Confirmed by FAYE DELGADILLO, KAREN ([id number]), online content editor CHRISTIN BARTHOLOMEW ([id number]) on 12/18/2020 10:16:04 AM Referred By: ZEE Confirmed By:KAREN MCKINNEY MD
--- NOTE | 2020-12-15 06:41 | ED.RN ---
blood restarted and Dr Jain is aware
--- NOTE | 2020-12-15 07:13 | ED.RN ---
Lasix to be given before 3rd bag of blood per .
--- NOTE | 2020-12-15 09:16 | CASEMGMT ---
Insurance review for hospitals In-network with [employer] PPO Insurance if transfer is recommended is as follows: [facility], [place], [facility], [facility], [facility], [facility]), and . Hank CHANDN RN CM
--- NOTE | 2020-12-15 18:28 | NURSING ---
PER [facility] STILL WAITING ON A BED; COULD BE A WEEK
[2020-12-16 01:44] VITALS: BP 154/59; PULSE 73; RESP 14; O2SAT 98
[2020-12-16 03:55] VITALS: BP 166/66; PULSE 126; RESP 20
--- NOTE | 2020-12-16 03:56 | ED.RN ---
PT HAD A 6 BEAT RUN OF VTACH. PT DENIES FEELING LIGHTHEADED.
--- NOTE | 2020-12-16 04:48 | ED.RN ---
THIS NURSE IN THE ROOM TO TELL THE PT WE ORDERED ALL OF HER DAILY MEDICATIONS AND TO DRAW ADDITIONAL BLOOD. PT BECAME VERY ARGUMENTATIVE WITH THIS NURSE. PT STATES I'M LEAVING. I HAVE NOTHING HERE. NO CLOTHES. NO SHOWER. NO FOOD. THIS NURSE EXPLAINED TO THE PT THAT WE WILL GET HER MEAL TRAYS BUT UNFORTUNATELY WE DO NOT HAVE SHOWERS IN THE ER ROOMS. PT STATES IT COULD BE A WEEK BEFORE I GET TO [facility]. THIS IS ILLEGAL. YOU CAN'T KEEP SOMEONE IN THE ER FOR A WEEK. I'M GOING TO LEAVE. THIS NURSE ATTEMPTED TO EXPLAIN TO THE PT WE ARE WILLING TO ADMIT HER TO [facility] BUT I HAVE NO WAY OF GETTING HER A BED RIGHT NOW AT [facility]. PT STARTED RAISING HER VOICE. THIS NURSE LET THE PT KNOW THAT I WILL TELL THE DOCTOR THAT SHE WANTS TO LEAVE AGAINST MEDICAL ADVICE. DR OWUSU INFORMED OF THE SAME
--- NOTE | 2020-12-16 08:02 | NURSING ---
CALLED [facility], TALKED TO ETELVINA IN TRANSFER LINE. CANCELLED TRANSFER BED
[2020-12-16 08:04] VITALS: BP 138/54; PULSE 83; RESP 16; O2SAT 96
[2020-12-16 12:40] LABS: Pathologist Review Reviewed
== END 2020-12-16 08:06 | disposition left against medical advice (07) ==
PROVIDERS: Emergency Provider Emergency Medicine; PCP Internal Medicine
DX: R07.9 Chest pain, unspecified (principal); D64.9 Anemia, unspecified; I25.10 Atherosclerotic heart disease of native coronary artery without angina pectoris; Z95.2 Presence of prosthetic heart valve; E11.9 Type 2 diabetes mellitus without complications; E78.00 Pure hypercholesterolemia, unspecified; G47.33 Obstructive sleep apnea (adult) (pediatric); I10 Essential (primary) hypertension; I35.0 Nonrheumatic aortic (valve) stenosis; I44.7 Left bundle-branch block, unspecified; I48.0 Paroxysmal atrial fibrillation; K21.9 Gastro-esophageal reflux disease without esophagitis; Z79.82 Long term (current) use of aspirin; Z79.899 Other long term (current) drug therapy; Z87.891 Personal history of nicotine dependence; Z95.1 Presence of aortocoronary bypass graft; Z86.73 Personal history of transient ischemic attack (TIA), and cerebral infarction without residual deficits; Z90.13 Acquired absence of bilateral breasts and nipples
CPT/HCPCS: 36430; 71045; 80048; 84484; 85025; 86850; 86900; 86901; 86920; 86922; 87426; 93005; 99285; J7030; P9016; A4216; J1940

== ENCOUNTER 2021-01-01 09:49 | Inpatient (IN) | payer MEDICARE, SELFPAY ==
[2021-01-01] VITALS (22 sets, daily range): BP systolic 108–157; BP diastolic 42–80; PULSE 86–122; RESP 14–20; TEMP 36.6–36.9; O2SAT 2–100; BMI 31.0; BMI 29.5
--- NOTE | 2021-01-01 10:05 | EKG12_ITS ---
Test Reason : Blood Pressure : / mmHG Vent. Rate : 084 BPM Atrial Rate : 084 BPM P-R Int : 162 ms QRS Dur : 116 ms QT Int : 384 ms P-R-T Axes : 062 015 172 degrees QTc Int : 453 ms Normal sinus rhythm Left ventricular hypertrophy with QRS widening with repolarization abnormality Abnormal ECG Confirmed by JOSE MANUEL DELGADILLO, CRISTIAN ([id number]), electronic news gathering editor CHRISTIN BARTHOLOMEW ([id number]) on 01/05/2021 1:02:54 PM Referred By: ZEE Confirmed By:CRISTIAN RICHARD MD
[2021-01-01 10:15] LABS: Absolute Lymphocyte Count 1.39 X10^3/uL (0.83-4.51); Absolute Neutrophil Count 8.8 X10^3/uL (2.0-7.7); Basophil# 0.03 X10^3/uL; Basophil% 0.3 % (0-1); Eosinophil# 0.47 X10^3/uL; Eosinophils% 4.2 % (0-5); Hematocrit 22.1 % (37-47); Hemoglobin 6.5 g/dL (12.0-15.0); Lymphocyte # 1.39 X10^3/ul (0.83-4.51); Lymphocyte % 12.3 % (19-41); Mean Corp Hgb Conc 29.4 g/dL (32-36); Mean Corpuscular Hgb 26.7 pg (27.0-32.0); Mean Corpuscular Volume 90.9 fL (81-99); Mean Platelet Vol. 9.6 fl (6.2-12.0); Monocyte# 0.54 X10^3/uL; Monocyte% 4.8 % (0-10); NRBC Flagged by Analyzer 0.3 % (0-5); Neutrophil # 8.76 X10^3/uL (2.7-7.7); Neutrophil % 77.4 % (47-70); Platelet Count 333 K/mm3 (150-450); RBC Distribution Width CV 17.1 % (11.6-14.6); RBC Distribution Width SD 55.5 fl (35.1-43.9); Red Blood Count 2.43 M/mm3 (4.2-5.4); White Blood Count 11.3 K/mm3 (4.4-11.0)
--- NOTE | 2021-01-01 10:16 | EX.ED.DYSGE1 ---
HPI History of Present Illness Chief Complaint: Dizziness Informant: patient Onset/Context/Timing Onset: Yesterday Context: Gradual Onset Timing: Intermittent Current Severity: Mild Maximum Severity: Mild Narrative Narrative: 80-year-old female history of chronic anemia was transfused 3 units of blood about 3 weeks ago. She also has a history of coronary disease, double bypass surgery 2013 and a cow valve replacement. She is also had breast cancer and carotid endarterectomies. She is on Plavix and aspirin. Patient has a history of chronic anemia with MBL figure out the specific cause. She states she just feels generally weak and more lightheaded when she stands. She is also had some intermittent chest discomfort. Prior similar symptoms: Yes Recent Illness/Hospitalization: Yes [facility] Medical History Atherosclerotic heart disease of [place] coronary artery without angina pectoris Atypical chest pain Bilateral carotid artery stenosis Bilateral carotid bruits CAD (coronary artery disease) Carotid stenosis Jayson's syndrome Effusion, left knee Essential hypertension GERD (gastroesophageal reflux disease) History of left heart catheterization (LHC) (~07/14/20) HTN (hypertension) Nonrheumatic aortic (valve) stenosis [place] (obstructive sleep apnea) Osteoarthritis Paroxysmal atrial fibrillation PND (post-nasal drip) Psoriasis Pure hypercholesterolemia Sleep disorder Sleep disorder breathing SOB (shortness of breath) on exertion TIA (transient ischemic attack) Tobacco abuse Type 2 diabetes mellitus Home Medications cilostazol 50 mg PO BIDAC 09/01/13 [History Last Taken 04/12/19] ezetimibe 10 mg PO QHS 09/01/13 [History Last Taken 04/11/19] pantoprazole 40 mg PO BID 09/01/13 [History Last Taken 04/12/19] aspirin 81 mg PO BID 01/24/16 [History Last Taken 04/11/19] metoprolol tartrate 100 mg tablet 100 mg PO BID #180 tab 10/05/18 [Rx Last Taken 04/12/19] nitroglycerin 0.4 mg sublingual tablet 0.4 mg SUBLINGUAL Q5M PRN #25 tab 10/05/18 [Rx Last Taken 04/12/19] acetaminophen 500 mg PO DAILY PRN PRN 04/12/19 [History Last Taken 04/08/19] niacin (inositol niacinate) 1,000 mg PO DAILY 04/12/19 [History Last Taken 04/12/19] clopidogrel 75 mg tablet 75 mg PO DAILY 11/22/19 [History Last Taken Unknown] ascorbic acid (vitamin C) 500 mg PO DAILY 05/14/20 [History Last Taken Unknown] ferrous sulfate 325 mg PO DAILY 08/21/20 [History Last Taken Unknown] furosemide [Lasix] 20 mg DAILY PRN 12/15/20 [History Last Taken Unknown] Allergy/AdvReac Type Severity Reaction Status Date / Time Sulfa (Sulfonamide Allergy Severe HEART Verified 01/01/21 09:58 Antibiotics) RACING Latex, Natural Rubber Allergy Rash, Verified 01/01/21 09:58 psioriasis amoxicillin [From Augmentin] AdvReac Nausea Verified 01/01/21 09:58 atorvastatin [From Lipitor] AdvReac Other Verified 01/01/21 09:58 clavulanic acid AdvReac Nausea Verified 01/01/21 09:58 [From Augmentin] Iodinated Contrast Media AdvReac Other Verified 01/01/21 09:58 [CONTRASTS] niacin AdvReac Other Verified 01/01/21 09:58 [From Niaspan Extended-Release] rosuvastatin [From Crestor] AdvReac Other Verified 01/01/21 09:58 turkey grease AdvReac Rash Uncoded 01/01/21 09:58 Family History Mother Heart disease Cancer Father Heart disease Cancer Sister Cancer Surgical History History of aortic valve replacement with bioprosthetic valve (~09/06/13) History of bilateral carotid endarterectomy History of coronary artery bypass surgery (~09/06/13) History of left mastectomy (~1998) History of right mastectomy (~1998) History of tubal ligation Social History Smoking Status: Former smoker second hand exposure: Yes alcohol intake: never substance use type: does not use caffeine: Yes Type: coffee Number of servings: 2 what type of physical activity do you participate in: none ROS ROS ED ROS Narrative Denies nausea, vomiting diarrhea. Review of Systems ROS Unobtainable: Denies due to encephalopathy Constitutional Constitutional ED: Denies chills or fever(s) Eyes Eyes: Denies change in vision ENT ENT ED: Denies ear pain Cardiovascular Cardiovascular: Reports chest pain; Denies palpitations Respiratory/Chest Respiratory/Chest: Denies cough or dyspnea Gastrointestinal Gastrointestinal: Denies abdominal pain, diarrhea, nausea or vomiting Genitourinary Genitourinary ED: Denies dysuria or hematuria Musculoskeletal Musculoskeletal: Denies myalgias Integumentary Denies rash Neurologic Neurologic: Denies headache(s) Psychiatric Psychiatric: Denies depression Endocrine Endocrinology: Denies polyuria Allergic/Immunologic Allergic/Immunologic ED: Denies urticaria EXAM Physical Exam Narrative Exam Narrative: Well-appearing 80-year-old female no acute distress. Vital signs are stable. HEENT exam unremarkable. Neck nontender. Lungs clear to auscultation. Heart regular rhythm rate about 85 with a 4/6 talk ejection murmur. Abdomen soft nontender. Moving all 4 extremities. Calves are nontender. No edema. Neurologically she is awake alert with no focal motor deficits. Const Vital Signs: 01/01/21 09:55 01/01/21 10:00 01/01/21 10:13 Temperature 98.4 F Temperature Source Oral Pulse Rate 87 Respiratory Rate 20 H Respiratory Effort Normal Non-Labored Blood Pressure 150/54 H Blood Pressure Mean 86 Pulse Ox 98 Oxygen Delivery Method Room Air Room Air 01/01/21 11:24 Temperature Temperature Source Pulse Rate 86 Respiratory Rate 17 Respiratory Effort Blood Pressure 157/53 H Blood Pressure Mean 87 Pulse Ox 99 Oxygen Delivery Method Room Air Positive well nourished and well developed; Negative for obese, cachectic, contractures or unkempt General Appearance ED: well developed and NAD; Negative for unkempt, cachectic or contractures Nutritional Appearance: Negative for cachectic or obese HEENT Reports moist mucous membranes Negative for trauma or tenderness Eyes PERRL and EOMs intact bilaterally Neck no lymphadenopathy, supple and no JVD General: Negative for tenderness Chest Wall inspection of chest normal and palpation of chest normal Resp normal respiratory effort and clear to auscultation bilaterally Resp Narrative: 4/6 systolic ejection murmur. Effort and Inspection: Negative for pain with movement Auscultation: Negative for rales, rhonchi or wheezes Cardio regular rate, regular rhythm and no murmurs GI normal to inspection, nondistended, normoactive bowel sounds, non-tender, non-distended and no masses Auscultation: normoactive bowel sounds Palpation: soft; Negative for tender or guarding Back/Spine no CVA tenderness Extremity normal to inspection General Extremety ED: Negative for edema or tenderness General Extremity: Negative for edema Neuro oriented x3 Sensorium / Orientation: alert; Negative for lethargic or stuporous Motor Exam: strength 5/5 throughout; Negative for general weakness Psych mental status grossly normal Appearance: Negative for unkempt Skin no rashes or lesions noted and no wounds MDM MDM MDM Narrative Medical decision making narrative: 80 female history recurrent anemia on both Plavix and aspirin due to underlying cardiac disease. Think she may be anemic again. She is also had some intermittent chest pain shortness on cardiac work-up along with type and screen. Most likely is going to need to be admitted. Repeat exam patient is doing well at 11:50 AM. He is currently not having any chest pain. We went over her test results. I am going to add a type and cross for 2 units and began transfusing her and speak to the hospitalist about admission. Lab Data Attestation: I reviewed the patient's lab results. Lab results narrative: CBC shows a white count 11. Hemoglobin is 6.5. Electrolytes unremarkable gap of 5 creatinine of 1 glucose 163 and troponin of 26. Labs: Laboratory Results - last 24 hr 01/01/21 01/01/21 01/01/21 09:36 09:36 10:15 WBC 11.3 H RBC 2.43 L Hgb 6.5 L Hct 22.1 L MCV 90.9 MCH 26.7 L MCHC 29.4 L RDW Std Deviation 55.5 H RDW Coeff of Velasquez 17.1 H Plt Count 333 MPV 9.6 Immature Gran % (Auto) 1.000 H Neut % (Auto) 77.4 H Lymph % (Auto) 12.3 L [place] % (Auto) 4.8 Eos % (Auto) 4.2 Baso % (Auto) 0.3 Absolute Neuts (auto) 8.8 H Absolute Lymphs (auto) 1.39 Nucleated RBC % 0.3 Sodium 141 Potassium 4.1 Chloride 108 H Carbon Dioxide 28.0 Anion Gap 5 BUN 35 H Creatinine 1.00 Estim Creat Clear Calc 35.49 Est GFR (MDRD) Af Amer 69 Est GFR (MDRD) Non-Af 57 L BUN/Creatinine Ratio 35.1 H Glucose 163 H Calcium 8.6 Troponin I High Sens 26 Blood Type A POSITIVE Antibody Screen NEGATIVE Radiography Chest X-Ray - ED: 1 View, Read by ED Physician, Read by Radiologist, Heart, Lungs, Mediastinum, Bony Structures, No Acute Disease and Chronic Changes Diagnostic Testing: Radiology Impression Chest X-Ray 01/01/21 10:36 IMPRESSION: Hyperinflation. No acute abnormality is seen. Electronically Signed: Manolo Sierra MD at 10:56 EDT , Service support , Rhythm Strip Rhythm Strip: Sinus Rhythm Rate: 84 Ectopy: None EKG Initial EKG: Attestation: I personally reviewed and interpreted this EKG as follows: Interpretation: Sinus Rhythm and No Acute Injury Pattern Comments: Normal sinus rhythm rate 84 no acute signs of [place] or ischemia. LVH with an interventricular conduction delay. Seen on a prior EKG from November. Old septal infarct. Prior: Unchanged Follow-up EKG: Interpretation: No Acute Injury Pattern Comments: Repeat EKG showed a normal sinus rhythm rate 84 with interventricular conduction delay and no change from the prior. Prior EKG tracings: available for review Prior: Unchanged Discharge Plan Dx/Rx/DC Orders Clinical Impression: Symptomatic anemia, Chest pain, Coronary artery disease Disposition Disposition: Acute Care Hospital [facility]
[2021-01-01 10:32] LABS: Anion Gap 5 (5-15); BUN 35 mg/dL (7-18); BUN/Creat Ratio 35.1 RATIO (10-20); Calcium,Total 8.6 mg/dL (8.5-10.1); Chloride 108 mmol/L (98-107); EST Glomerular Filtration Rate 57 mL/min (>60); Est Glom Filt Rate - Afr Amer 69 mL/min (>60); Estimated Creatinine Clearance 35.49 ml/min; Glucose 163 mg/dL (74-106); Potassium 4.1 mmol/L (3.5-5.1); Sodium Level 141 mmol/L (136-145); Troponin-I HS 26 pg/mL (3.0-54.0)
--- NOTE | 2021-01-01 10:36 | RAD_ITS ---
STUDY: X-RAY CHEST REASON FOR EXAM: Female, 80 years old. Chest pain TECHNIQUE: Single AP portable view of the chest. COMPARISON: Comparison is made with prior study dated 12/15/2020. FINDINGS: EKG electrodes are seen. Once again, surgical clips are seen in both axillary region. Findings suggestive of bilateral mastectomy. There is hyperinflation of the lungs consistent with chronic obstructive lung disease (COPD). There is no demonstrated pleural abnormality. Sternal cerclage wires and vascular clips are present from a prior sternotomy and coronary artery bypass graft procedure (CABG). Normal mediastinum and erasmo. Normal visualized pulmonary arteries. Normal visualized aortic arch and descending thoracic aorta. Normal visualized thoracic spine. Normal visualized ribs, clavicles, and shoulders. There is no demonstrated abnormality of the visualized soft tissue structures of the upper abdomen. RAD/Chest 1 View (Portable) IMPRESSION: Hyperinflation. No acute abnormality is seen. Electronically Signed: Manolo Sierra MD at 10:56 EDT , Service support ,
--- NOTE | 2021-01-01 11:25 | ED.RN ---
PT C/O CHEST PAIN ON LEFT SIDE. CALLED FOR EKG
--- NOTE | 2021-01-01 12:02 | NURSING ---
DR ELENA IN ER
--- NOTE | 2021-01-01 12:06 | NURSING ---
PCU ANEMIA, CP, HX OF CAD KASSY
--- NOTE | 2021-01-01 12:26 | HP.PCM.HOS_ITS ---
HPI - General HPI Narrative SAMMY SOLOMON, is a 80 F who presented to the emergency department [facility] on 01/01/2021 with a chief complaint of fatigue and intermittent chest pain. The patient was here approximately 3 weeks ago on 12/15/2020 and was noted to be anemic. She received 3 units of blood at that time and was pending transfer to [facility] per her wishes but never got a bed so she left from the emergency department AGAINST MEDICAL ADVICE. She states she was feeling better but over the last several days she has been feeling worse. She states yesterday she saw her PCP for right hip pain for which she was given a muscle relaxant but she did not fill the prescription or take it as she was afraid that the muscle relaxant would make her heart weaker. She has a marked cardiac history with a history of coronary artery disease status post bypass and aortic valve replacement. Her aortic valve is currently failing and she is undergoing evaluation for TAVR versus SAVR. She follows with Dr. Cruz for this and has an appointment with him in January. She has had an ongoing anemia for which an EGD was done in 2018 and showed mild gastritis but no other signs of bleeding. She does states she has a history of duodenal ulcer remotely. She has had no abdominal pain, nausea, vomiting, diarrhea, constipation, melena, hematochezia, or hematemesis. She feels generally weak and more lightheaded when she stands and took her blood pressure after standing and noted that was lower than she typically runs. She called her doctor's office and they told her to come to the emergency department. On arrival she was hemodynamically stable. Her CBC shows a mild leukocytosis of 11.3, hemoglobin of 6.5 with a normal MCV and a normal platelet count. Her BNP is overall fairly unremarkable other than a mildly elevated BUN at 35. Given her chest pain high-sensitivity troponin was done and it was 26. An EKG was performed and shows and shows chronic changes that are stable but no acute ST-T wave changes consistent with acute ischemia. Her chest x-ray showed hyperinflation but no other abnormalities. The ER ordered 2 units of packed red blood cells and requested admission. The patient is agreeable for further work- up at this time and transfusion. Given her chest pain and her cardiac history, I will admit her to PCU. [facility] Medical History Atherosclerotic heart disease of [place] coronary artery without angina pectoris Atypical chest pain Bilateral carotid artery stenosis Bilateral carotid bruits CAD (coronary artery disease) Carotid stenosis Jayson's syndrome Effusion, left knee Essential hypertension GERD (gastroesophageal reflux disease) History of left heart catheterization (LHC) (~07/14/20) HTN (hypertension) Nonrheumatic aortic (valve) stenosis [place] (obstructive sleep apnea) Osteoarthritis Paroxysmal atrial fibrillation PND (post-nasal drip) Psoriasis Pure hypercholesterolemia Sleep disorder Sleep disorder breathing SOB (shortness of breath) on exertion TIA (transient ischemic attack) Tobacco abuse Type 2 diabetes mellitus Home Medications cilostazol 50 mg PO BIDAC 09/01/13 [History Last Taken 04/12/19] ezetimibe 10 mg PO QHS 09/01/13 [History Last Taken 04/11/19] pantoprazole 40 mg PO BID 09/01/13 [History Last Taken 04/12/19] aspirin 81 mg PO BID 01/24/16 [History Last Taken 04/11/19] metoprolol tartrate 100 mg tablet 100 mg PO BID #180 tab 10/05/18 [Rx Last Taken 04/12/19] nitroglycerin 0.4 mg sublingual tablet 0.4 mg SUBLINGUAL Q5M PRN #25 tab 10/05/18 [Rx Last Taken 04/12/19] acetaminophen 500 mg PO DAILY PRN PRN 04/12/19 [History Last Taken 04/08/19] niacin (inositol niacinate) 1,000 mg PO DAILY 04/12/19 [History Last Taken 04/12/19] clopidogrel 75 mg tablet 75 mg PO DAILY 11/22/19 [History Last Taken Unknown] ascorbic acid (vitamin C) 500 mg PO DAILY 05/14/20 [History Last Taken Unknown] ferrous sulfate 325 mg PO DAILY 08/21/20 [History Last Taken Unknown] furosemide [Lasix] 20 mg DAILY PRN 12/15/20 [History Last Taken Unknown] Allergy/AdvReac Type Severity Reaction Status Date / Time Sulfa (Sulfonamide Allergy Severe HEART Verified 01/01/21 09:58 Antibiotics) RACING Latex, Natural Rubber Allergy Rash, Verified 01/01/21 09:58 psioriasis amoxicillin [From Augmentin] AdvReac Nausea Verified 01/01/21 09:58 atorvastatin [From Lipitor] AdvReac Other Verified 01/01/21 09:58 clavulanic acid AdvReac Nausea Verified 01/01/21 09:58 [From Augmentin] Iodinated Contrast Media AdvReac Other Verified 01/01/21 09:58 [CONTRASTS] niacin AdvReac Other Verified 01/01/21 09:58 [From Niaspan Extended-Release] rosuvastatin [From Crestor] AdvReac Other Verified 01/01/21 09:58 turkey grease AdvReac Rash Uncoded 01/01/21 09:58 Family History Mother Heart disease Cancer Father Heart disease Cancer Sister Cancer Surgical History History of aortic valve replacement with bioprosthetic valve (~09/06/13) History of bilateral carotid endarterectomy History of coronary artery bypass surgery (~09/06/13) History of left mastectomy (~1998) History of right mastectomy (~1998) History of tubal ligation Social History Smoking Status: Former smoker second hand exposure: Yes alcohol intake: never substance use type: does not use caffeine: Yes Type: coffee Number of servings: 2 what type of physical activity do you participate in: none ROS Constitutional Constitutional: Reports fatigue and weakness; Denies anorexia, change in weight, chills, fever(s), malaise, night sweats or other Eyes Eyes: Denies blurry vision, change in eye color, change in vision, discharge from eye(s), double vision, erythema, eye pain, loss of vision or other ENT HEENT: Denies abnormal hearing, dysphagia, ear pain, epistaxis, headache(s), he aring loss, nasal congestion, nasal discharge, post nasal drip, sinus pressure, sore throat or other Cardiovascular Cardiovascular: Reports chest pain and dyspnea on exertion; Denies claudication, edema, lightheadedness, orthopnea, palpitations, paroxysmal nocturnal dyspnea, rapid heart rate, syncope or other Respiratory/Chest Respiratory/Chest: Reports shortness of breath with exertion; Denies cough, d yspnea, excessive phlegm production, hemoptysis, productive cough, shortness of breath at rest, wheezing or other Gastrointestinal Gastrointestinal: Denies abdominal pain, coffee ground emesis, constipation, diarrhea, dyspepsia, hematemesis, hematochezia, loose stools, melena, nausea, vomiting or other Genitourinary Genitourinary: Denies burning urination, difficulty urinating, dysuria, hematuria, nocturia, urinary frequency, urinary hesitancy, urinary incontinence, urinary urgency or other Musculoskeletal Musculoskeletal: Reports joint pain, joint stiffness, myalgias and other Details: Right lower extremity sciatica Psychiatric Psychiatric: Denies anxiety, depression, homicidal ideation, suicidal ideation or other Endocrine Endocrinology: Denies change in body appearance, cold intolerance, excessive sweating, heat intolerance, polydipsia, polyuria or other Hematologic/Lymphatic Hematologic/Lymphatic: Reports anemia; Denies easy bleeding, easy bruising, lymphadenopathy or other Allergic/Immunologic Allergic/Immunologic: Denies rhinitis, hives, eczemia, asthma or other Vital Signs Vital Signs Vital Signs: 01/01/21 09:55 01/01/21 10:00 01/01/21 10:13 Temperature 98.4 F Temperature Source Oral Pulse Rate 87 Respiratory Rate 20 H Respiratory Effort Normal Non-Labored Blood Pressure 150/54 H Blood Pressure Mean 86 Pulse Ox 98 Oxygen Delivery Method Room Air Room Air 01/01/21 11:24 01/01/21 12:11 Temperature 98 F Temperature Source Temporal Pulse Rate 86 90 Respiratory Rate 17 18 Respiratory Effort Blood Pressure 157/53 H 143/46 H Blood Pressure Mean 87 78 Pulse Ox 99 95 Oxygen Delivery Method Room Air Room Air Weight Weight: 76.9 kg Body Mass Index (BMI) 31.0 Results Lab / Micro Data Result Diagrams: 01/01/21 09:36 01/01/21 09:36 Labs: Laboratory Results - last 24 hr 01/01/21 09:36: WBC 11.3 H, RBC 2.43 L, Hgb 6.5 L, Hct 22.1 L, MCV 90.9, MCH 26.7 L, MCHC 29.4 L, RDW Std Deviation 55.5 H, RDW Coeff of Velasquez 17.1 H, Plt Count 333, MPV 9.6, Immature Gran % (Auto) 1.000 H, Neut % (Auto) 77.4 H, Lymph % (Auto) 12.3 L, [place] % (Auto) 4.8, Eos % (Auto) 4.2, Baso % (Auto) 0.3, Absolut e Neuts (auto) 8.8 H, Absolute Lymphs (auto) 1.39, Nucleated RBC % 0.3 01/01/21 09:36: Sodium 141, Potassium 4.1, Chloride 108 H, Carbon Dioxide 28.0, Anion Gap 5, BUN 35 H, Creatinine 1.00, Estim Creat Clear Calc 35.49, Est GFR (MDRD) Af Amer 69, Est GFR (MDRD) Non-Af 57 L, BUN/Creatinine Ratio 35.1 H, Glucose 163 H, Calcium 8.6, Troponin I High Sens 26 01/01/21 10:15: Blood Type A POSITIVE, Antibody Screen NEGATIVE 01/01/21 10:15: Crossmatch See Detail Micro: Microbiology 01/01/21 10:22 Nasal Secretion SARS-CoV-2 Antigen (Rapid) - Final Rhythm Strip Rhythm Strip: Sinus Rhythm Rate: 84 Ectopy: None Radiology Impression Chest X-Ray 01/01/21 10:36 IMPRESSION: Hyperinflation. No acute abnormality is seen. Electronically Signed: Manolo Sierra MD at 10:56 EDT , Service support , Assessment & Plan Assessment/Plan (1) Symptomatic anemia: (2) Chest pain: (3) Severe aortic stenosis: (4) Coronary artery disease: PLAN: Acute on chronic symptomatic anemia -Patient has required repeated transfusions and initially has been resistant to work-up but is now agreeable -EGD done in 2018 showed gastritis but no other abnormalities -Patient does have a history of duodenal ulcer -Transfuse 2 units packed red blood cells -Cycle H&H -Consult general surgery for consideration of repeat EGD and colonoscopy -Check iron studies prior to transfusion, reticulocyte count, B12, folate -These may be a bit skewed given her transfusions recently -Continue home iron -Plavix and cilostazol on hold Chest pain -No EKG changes consistent with acute ischemia -High-sensitivity troponin negative -We will cycle cardiac enzymes -If any cardiac needs patient will need transfer to [facility] CAD/aortic valve stenosis -Patient is status post CABG and aortic valve replacement with bovine graft -Unfortunately aortic valve has failed and she is undergoing further evaluation for TAVR versus TAVR with surgery -Follows with Dr. Cruz and has appointment with him in January - home Plavix and cilostazol -Continue baby aspirin -Continue all other cardiac medications Hypertension/hyperlipidemia -Continue Lasix -Continue metoprolol -Continue Zetia -Patient has statin intolerance Gastritis/history of duodenal ulcer/GERD -Remote -Continue p.o. Protonix 40 mg twice daily -Patient has been on Carafate in the past but appears that this has been discontinued DM-2 -It appears the patient is not on any medications for this -Blood sugar in the emergency department was 163 -Monitor fasting sugars and if remain elevated consider checking a hemoglobin A 1c and starting a sliding scale Psoriasis -Patient is not on any chronic treatment -Lotion as needed DVT prophylaxis -SCDs -Hold chemical prophylaxis given recurrent anemia without known source Charges/Coding Visit Charges Inpatient E&M: 32021 Init Hosp L3
[2021-01-01 13:01] LABS: Platelet Count 268 K/mm3 (150-450); Reticulocyte Count 4.12 % (0.5-1.5)
[2021-01-01 13:25] LABS: Ferritin 7 ng/mL (8-252); Iron 36 ug/dL (50-170); Iron Binding Capacity,Total 384 ug/dL (250-450); PERCENT IRON SATURATION 9.4 % (15.0-55.0); Troponin-I HS 28 pg/mL (3.0-54.0)
[2021-01-01] MEDS: morphine 8 MG/ML Syringe 6 MG IV (13:38)
[2021-01-01] MEDS: Ondansetron 4 MG/2 ML Vial IV (13:39)
--- NOTE | 2021-01-01 15:24 | ED.RN ---
this rn in to room to draw repeat troponin
--- NOTE | 2021-01-01 15:25 | ED.RN ---
pt yelling at this rn about her pain. states no-one has been in to see me in hours, so I started taking my nitroglycerin. pt aware that is not appropriate. dr schwartz
[2021-01-01 15:47] LABS: Troponin-I HS 34 pg/mL (3.0-54.0)
--- NOTE | 2021-01-01 17:32 | EKG12_ITS ---
Test Reason : CP REPEAT Blood Pressure : / mmHG Vent. Rate : 115 BPM Atrial Rate : 115 BPM P-R Int : 150 ms QRS Dur : 134 ms QT Int : 364 ms P-R-T Axes : 079 -11 100 degrees QTc Int : 503 ms Sinus tachycardia Left ventricular hypertrophy with QRS widening and repolarization abnormality Abnormal ECG When compared with ECG of 01-JAN-2021 17:32, MANUAL COMPARISON REQUIRED, DATA IS UNCONFIRMED Confirmed by FAYE DELGADILLO, KAREN ([id number]), editor book CHRISTIN BARTHOLOMEW ([id number]) on 01/06/2021 10:42:24 AM Referred By: KASSY Confirmed By:KAREN MCKINNEY MD
[2021-01-01] MEDS: Nitroglycerin (INPATIENT USE) 0.4 MG TAB.SUBL SL (17:35)
--- NOTE | 2021-01-01 17:37 | EKG12_ITS ---
Test Reason : CP Blood Pressure : / mmHG Vent. Rate : 124 BPM Atrial Rate : 124 BPM P-R Int : 124 ms QRS Dur : 132 ms QT Int : 342 ms P-R-T Axes : 073 -14 111 degrees QTc Int : 491 ms Sinus tachycardia Left ventricular hypertrophy with QRS widening and repolarization abnormality Abnormal ECG When compared with ECG of 01-JAN-2021 11:35, MANUAL COMPARISON REQUIRED, DATA IS UNCONFIRMED Confirmed by FAYE DELGADILLO, KAREN ([id number]), acquisitions editor CHRISTIN BARTHOLOMEW ([id number]) on 01/06/2021 10:42:15 AM Referred By: KASSY Confirmed By:KAREN MCKINNEY MD
[2021-01-01] MEDS: Morphine 2 MG/ML Syringe IV (17:46)
--- NOTE | 2021-01-01 17:54 | ECHOD_ITS ---
Reason For Study: CHF Procedure This was a 2D Doppler, Color Flow transthoracic echocardiogram. Exam performed portable in patient room. Left Ventricle Normal left ventricle. Mild Concentric LVH. The estimated ejection fraction is EF 55-60 %. Right Ventricle Normal right ventricle. Normal systolic function. Atria The left atrium is mildly enlarged. Normal right atrium. Mitral Valve There is moderate mitral annular calcification. Mild (1+) mitral valve insufficiency. Tricuspid Valve Normal tricuspid valve. Moderate (2+) tricuspid valve insufficiency. Aortic Valve Moderate diffuse aortic valve calcification. Severe aortic stenosis. Mild (1+) aortic valve insufficiency. Bioprosthetic aortic valve. Pulmonic Valve The pulmonic valve is not well visualized. Great Vessels Normal aortic root. Pericardium/Pleural No pericardial effusion. MMode/2D Measurements & Calculations LVIDd: 4.0 cm IVSd: 1.2 cm LVOT diam: 1.8 cm LVIDs: 2.8 cm LVPWd: 1.2 cm LVOT area: 2.4 cm2 RVDd: 3.0 cm FS: 29.5 % Ao root diam: 2.9 cm LAV(MOD-bp): 59.8 ml LVAd ap4: 22.5 cm2 LAV(MOD-bp) Indexed: 34.3 ml/m2 LVLd ap4: 7.1 cm LAV(MOD-sp2): 50.7 ml EDV(MOD-sp4): 57.6 ml LAV(MOD-sp4): 62.3 ml EDV(sp4-el): 60.7 ml LVAs ap4: 12.4 cm2 LVLs ap4: 5.9 cm ESV(MOD-sp4): 21.5 ml ESV(sp4-el): 22.4 ml EF(MOD-sp4): 62.7 % EF(sp4-el): 63.0 % LVAd ap2: 29.6 cm2 SV(MOD-sp4): 36.2 ml SV(MOD-sp2): 56.4 ml LVLd ap2: 8.3 cm EDV(MOD-sp2): 87.2 ml EDV(sp2-el): 89.9 ml LVAs ap2: 16.2 cm2 LVLs ap2: 6.9 cm ESV(MOD-sp2): 30.8 ml ESV(sp2-el): 32.2 ml EF(MOD-sp2): 64.6 % SV(sp4-el): 38.2 ml Aortic Valve Planimetry: 0.64 cm2 LA A4 area: 19.4 cm2 LA dimension(2D): 4.2 cm RA A4 area: 14.0 cm2 Doppler Measurements & Calculations MV E max andrews: 175.7 cm/sec Lat Peak E' Andrews: 5.7 cm/sec Med Peak E' Andrews: 1.7 cm/sec MV A max andrews: 151.3 cm/sec E/E' lat: 30.9 E/E' med: 100.8 MV E/A: 1.2 MV V2 max: 230.5 cm/sec Ao V2 max: 417.9 cm/sec LV V1 max: 131.9 cm/sec MV max P.5 mmHg Ao max P.0 mmHg LV V1 max P.7 mmHg MV V2 mean: 146.1 cm/sec Ao V2 mean: 329.2 cm/sec LV V1 mean P.6 mmHg MV mean P.8 mmHg Ao mean P.3 mmHg LV V1 mean: 102.4 cm/sec MV V2 VTI: 42.4 cm Ao V2 VTI: 100.7 cm LV V1 VTI: 33.7 cm MVA(VTI): 1.9 cm2 MILES(I,D): 0.82 cm2 MILES(V,D): 0.77 cm2 SV(LVOT): 82.3 ml PA V2 max: 138.4 cm/sec TR max andrews: 335.5 cm/sec TR max P.0 mmHg MV P1/2t-pr_phl: 42.7 msec ECHO/Echo Complete Interpretation Summary Normal LV systolic function. The estimated ejection fraction is EF 55-60 %. Mild Concentric LVH Moderate Pulmonary hypertension. PASP 55 mmhg Severe MILES 0.77 cm2 Mild AI Ordering Physician: Kaelyn Landers Referring Physician: CELE OLVERA Performed By: Pam Rodarte, FABRICIO, RVT
--- NOTE | 2021-01-01 18:04 | PCM.HOSP.N ---
Hospitalist Note Called at about 5:30 in the evening. The patient had gotten up to go to the bathroom and had a dark stool but I was able to observe. The stool was very dark and had a red halo around it. She then developed what she called crushing chest pain and was screaming became tachycardic and hypertensive and began hyperventilating. She was able to be lied in the bed and she was given nitroglycerin and 2 of morphine and her symptoms subsided. EKG showed a chronic left bundle branch with possible depression in the lateral leads I discussed this case with Dr. Landers from cardiology who came to the bedside and he did not think any acute coronary intervention needed to be performed at this time. She has not yet received her blood. I discussed with the nurse to start hang the blood to transfuse her and continue her every 4 hour H&H's. I also discussed the case with Dr. Villa who will be and evaluate the patient. I discontinued her oral PPI given her stool and will place her on IV Protonix drip. I also discontinued her aspirin at this time other anticoagulants and platelet hemorrhages were discontinued earlier today. The patient symptoms had completely resolved by the time I left the floor.
--- NOTE | 2021-01-01 18:26 | CON.PCM.CA_ITS ---
Documented by User: Dr. Kaelyn Landers MD 01/01/21 18:33 Assessment & Plan Assessment/Plan (1) Symptomatic anemia: (2) History of coronary artery disease: (3) History of heart valve replacement: (4) History of aortic valve replacement with bioprosthetic valve: (5) History of coronary artery bypass surgery: PLAN: 80-year-old patient who presented to the ER with symptoms of intermittent chest pain and fatigue I saw in PCU along with the nursing staff she was having left-sided chest pain EKG showed underlying left bundle branch block with sinus tachycardia This patient had history of CAD with CABG done in 2013 YOO to LAD and SVG to OM1 she underwent cardiac catheterization in June 2020, findings revealed mild left main and proximal LAD stenosis significant atherosclerosis of mid LAD and occluded circumflex Patency of YOO to LAD and patency of SVG to the left circumflex and n onobstructive sclerosis of the RCA She also had evaluation by stress test here at [facility] which showed ejection fraction 49% with normal perfusion. Patient has bioprosthetic aortic valve and has severe aortic stenosis and plan is to proceed with TAVR at [facility] Patient regularly see her shorthand teacher Dr. Ari Cruz On this admission noted she had anemia with hemoglobin 6.5 and started on blood transfusion Cardiac recommendation plan; 1. Continue to monitor and follow-up on PCU/high sensitive troponins negative We will continue medical treatment with the nitroglycerin and patient will be evaluated for the underlying etiology of anemia which she has a prior EGD in 2019 which showed mild gastritis. 2. We will repeat an echocardiogram in the morning 3. Primary shorthand teacher Dr. Aponte/will discuss cardiac plan in the morning. HPI Consult Data Date of Consult: 01/01/21 HPI Narrative Reason for Consultation: Chest pain with abnormal EKG/ HPI Narrative: SAMMY SOLOMON, is a 80 F who presents [facility] Medical History Atherosclerotic heart disease of [place] coronary artery without angina pectoris Atypical chest pain Bilateral carotid artery stenosis Bilateral carotid bruits CAD (coronary artery disease) Carotid stenosis Jayson's syndrome Effusion, left knee Essential hypertension GERD (gastroesophageal reflux disease) History of left heart catheterization (LHC) (~07/14/20) HTN (hypertension) Nonrheumatic aortic (valve) stenosis [place] (obstructive sleep apnea) Osteoarthritis Paroxysmal atrial fibrillation PND (post-nasal drip) Psoriasis Pure hypercholesterolemia Sleep disorder Sleep disorder breathing SOB (shortness of breath) on exertion TIA (transient ischemic attack) Tobacco abuse Type 2 diabetes mellitus Home Medications cilostazol 50 mg PO BIDAC 09/01/13 [History Last Taken 04/12/19] ezetimibe 10 mg PO QHS 09/01/13 [History Last Taken 04/11/19] pantoprazole 40 mg PO BID 09/01/13 [History Last Taken 04/12/19] aspirin 81 mg PO BID 01/24/16 [History Last Taken 04/11/19] metoprolol tartrate 100 mg tablet 100 mg PO BID #180 tab 10/05/18 [Rx Last Taken 04/12/19] nitroglycerin 0.4 mg sublingual tablet 0.4 mg SUBLINGUAL Q5M PRN #25 tab 10/05/18 [Rx Last Taken 04/12/19] acetaminophen 500 mg PO DAILY PRN PRN 04/12/19 [History Last Taken 04/08/19] niacin (inositol niacinate) 1,000 mg PO DAILY 04/12/19 [History Last Taken 04/12/19] clopidogrel 75 mg tablet 75 mg PO DAILY 11/22/19 [History Last Taken Unknown] ascorbic acid (vitamin C) 500 mg PO DAILY 05/14/20 [History Last Taken Unknown] ferrous sulfate 325 mg PO DAILY 08/21/20 [History Last Taken Unknown] furosemide [Lasix] 20 mg DAILY PRN 12/15/20 [History Last Taken Unknown] Allergy/AdvReac Type Severity Reaction Status Date / Time Sulfa (Sulfonamide Allergy Severe HEART Verified 01/01/21 09:58 Antibiotics) RACING Latex, Natural Rubber Allergy Rash, Verified 01/01/21 09:58 psioriasis amoxicillin [From Augmentin] AdvReac Nausea Verified 01/01/21 09:58 atorvastatin [From Lipitor] AdvReac Other Verified 01/01/21 09:58 clavulanic acid AdvReac Nausea Verified 01/01/21 09:58 [From Augmentin] Iodinated Contrast Media AdvReac Other Verified 01/01/21 09:58 [CONTRASTS] niacin AdvReac Other Verified 01/01/21 09:58 [From Niaspan Extended-Release] rosuvastatin [From Crestor] AdvReac Other Verified 01/01/21 09:58 turkey grease AdvReac Rash Uncoded 01/01/21 09:58 Family History Mother Heart disease Cancer Father Heart disease Cancer Sister Cancer Surgical History History of aortic valve replacement with bioprosthetic valve (~09/06/13) History of bilateral carotid endarterectomy History of coronary artery bypass surgery (~09/06/13) History of left mastectomy (~1998) History of right mastectomy (~1998) History of tubal ligation Social History (Updated 01/01/21 @ 17:55 by Jaja Carcamo) household members: none housing: house Smoking Status: Former smoker second hand exposure: Yes alcohol intake: never substance use type: does not use caffeine: Yes Type: coffee Number of servings: 2 what type of physical activity do you participate in: none Physical Exam Narrative She was still having chest pain when I came to see him left-sided improving with nitroglycerin and morphine Cardiovascular examination S1-S2 is regular, she had systolic murmur heard in the aortic valve area Chest examination clear to auscultation Abdomen soft Central nervous system exam no focal logical deficit Examination lower extremity no clubbing no cyanosis no lower extremity edema Objective Data Vital Signs: Vital Signs Temp Pulse Resp BP Pulse Ox 98.4 F 104 H 15 130/55 H 2 01/01/21 18:14 01/01/21 18:14 01/01/21 18:14 01/01/21 18:14 01/01/21 18:17 Oxygen Flow Rate (L/min) 2 Oxygen Delivery Method Nasal Cannula Weight: 161 lb 9.581 oz Body Mass Index (BMI) 29.5 Intake & Output: Intake and Output for Last 24 Hours 12/30/20 12/31/20 01/01/21 23:59 23:59 23:59 Intake Total 0 / 0 Balance 0 / 0 Lab / Micro Data Result Diagrams: 01/02/21 09:58 01/02/21 05:24 Labs: Laboratory Results - last 24 hr 01/01/21 09:36: WBC 11.3 H, RBC 2.43 L, Hgb 6.5 L, Hct 22.1 L, MCV 90.9, MCH 26.7 L, MCHC 29.4 L, RDW Std Deviation 55.5 H, RDW Coeff of Velasquez 17.1 H, Plt Count 333, MPV 9.6, Immature Gran % (Auto) 1.000 H, Neut % (Auto) 77.4 H, Lymph % (Auto) 12.3 L, Banner % (Auto) 4.8, Eos % (Auto) 4.2, Baso % (Auto) 0.3, Absolute Neuts (auto) 8.8 H, Absolute Lymphs (auto) 1.39, Nucleated RBC % 0.3 01/01/21 09:36: Sodium 141, Potassium 4.1, Chloride 108 H, Carbon Dioxide 28.0, Anion Gap 5, BUN 35 H, Creatinine 1.00, Estim Creat Clear Calc 35.49, Est GFR (MDRD) Af Amer 69, Est GFR (MDRD) Non-Af 57 L, BUN/Creatinine Ratio 35.1 H, Glucose 163 H, Calcium 8.6, Troponin I High Sens 26 01/01/21 10:15: Blood Type A POSITIVE, Antibody Screen NEGATIVE 01/01/21 10:15: Crossmatch See Detail 01/01/21 12:48: Retic Count 4.12 H, Immature Retic Fraction 47.60 H, Retic Hgb Equivalent 28.0 L 01/01/21 12:48: Iron 36 L, TIBC 384, Iron Saturation 9.4 L, Ferritin 7 L, Trop onin I High Sens 28, Folate 9.30 01/01/21 15:20: Troponin I High Sens 34 Micro: Microbiology 01/01/21 10:22 Nasal Secretion SARS-CoV-2 Antigen (Rapid) - Final Rhythm Strip Rhythm Strip: Sinus Rhythm Rate: 84 Ectopy: None Cardiology Labs/Tests 01/01/21 09:36: WBC 11.3 H, RBC 2.43 L, Hgb 6.5 L, Hct 22.1 L, MCV 90.9, MCH 26.7 L, MCHC 29.4 L, Plt Count 333, MPV 9.6, Immature Gran % (Auto) 1.000 H, Neut % (Auto) 77.4 H, Lymph % (Auto) 12.3 L, Banner % (Auto) 4.8, Eos % (Auto) 4.2, Baso % (Auto) 0.3, Absolute Neuts (auto) 8.8 H, Nucleated RBC % 0.3 01/01/21 09:36: Sodium 141, Potassium 4.1, Chloride 108 H, Carbon Dioxide 28.0, Anion Gap 5, BUN 35 H, Creatinine 1.00, Est GFR (MDRD) Af Amer 69, Est GFR (MDRD) Non-Af 57 L, BUN/Creatinine Ratio 35.1 H, Glucose 163 H, Calcium 8.6 01/01/21 12:48: Iron 36 L, TIBC 384, Iron Saturation 9.4 L, Ferritin 7 L Rhythm: Sinus tach/normal sinus rhythm EKG: Left bundle branch block with sinus tachycardia Radiography Diagnostic Testing: Radiology Impression Chest X-Ray 01/01/21 10:36 IMPRESSION: Hyperinflation. No acute abnormality is seen. Electronically Signed: Manolo Sierra MD at 10:56 EDT , Service support , Documented by User: SHELLEY Cruz 01/02/21 16:54 HPI Consult Data Date of Consult: 01/02/21 HPI Narrative HPI Narrative: 80-year-old patient who presented to the ER with symptoms of inte rmittent chest pain and fatigue. On this admission noted she had anemia with hemoglobin 6.5 and started on blood transfusion She has a hx of history of underlying CAD, CABG, paroxysmal atrial fibrillation, bioprosthetic aortic valve replacement, bilateral carotid artery stenosis status post endarterectomy, superimposed upon hyperlipidemia and hypertension. Her bioprosthetic aortic valve has severe aortic stenosis. She follow with Dr. Cruz for this. She sts that she was told that her aortic valve is not bad enough to be replaced yet and she has a f/u with them in January. She also has a hx of anemia. EKG showed underlying left bundle branch block with sinus tachycardia [facility] Medical History Atherosclerotic heart disease of [place] coronary artery without angina pectoris Atypical chest pain Bilateral carotid artery stenosis Bilateral carotid bruits CAD (coronary artery disease) Carotid stenosis Jayson's syndrome Effusion, left knee Essential hypertension GERD (gastroesophageal reflux disease) History of left heart catheterization (LHC) (~07/14/20) HTN (hypertension) Nonrheumatic aortic (valve) stenosis [place] (obstructive sleep apnea) Osteoarthritis Paroxysmal atrial fibrillation PND (post-nasal drip) Psoriasis Pure hypercholesterolemia Sleep disorder Sleep disorder breathing SOB (shortness of breath) on exertion TIA (transient ischemic attack) Tobacco abuse Type 2 diabetes mellitus Home Medications cilostazol 50 mg PO BIDAC 09/01/13 [History Last Taken 04/12/19] ezetimibe 10 mg PO QHS 09/01/13 [History Last Taken 04/11/19] pantoprazole 40 mg PO BID 09/01/13 [History Last Taken 04/12/19] aspirin 81 mg PO BID 01/24/16 [History Last Taken 04/11/19] metoprolol tartrate 100 mg tablet 100 mg PO BID #180 tab 10/05/18 [Rx Last Taken 04/12/19] nitroglycerin 0.4 mg sublingual tablet 0.4 mg SUBLINGUAL Q5M PRN #25 tab 10/05/18 [Rx Last Taken 04/12/19] acetaminophen 500 mg PO DAILY PRN PRN 04/12/19 [History Last Taken 04/08/19] niacin (inositol niacinate) 1,000 mg PO DAILY 04/12/19 [History Last Taken 04/12/19] clopidogrel 75 mg tablet 75 mg PO DAILY 11/22/19 [History Last Taken Unknown] ascorbic acid (vitamin C) 500 mg PO DAILY 05/14/20 [History Last Taken Unknown] ferrous sulfate 325 mg PO DAILY 08/21/20 [History Last Taken Unknown] furosemide [Lasix] 20 mg DAILY PRN 12/15/20 [History Last Taken Unknown] Allergy/AdvReac Type Severity Reaction Status Date / Time Sulfa (Sulfonamide Allergy Severe HEART Verified 01/01/21 09:58 Antibiotics) RACING Latex, Natural Rubber Allergy Rash, Verified 01/01/21 09:58 psioriasis amoxicillin [From Augmentin] AdvReac Nausea Verified 01/01/21 09:58 atorvastatin [From Lipitor] AdvReac Other Verified 01/01/21 09:58 clavulanic acid AdvReac Nausea Verified 01/01/21 09:58 [From Augmentin] Iodinated Contrast Media AdvReac Other Verified 01/01/21 09:58 [CONTRASTS] niacin AdvReac Other Verified 01/01/21 09:58 [From Niaspan Extended-Release] rosuvastatin [From Crestor] AdvReac Other Verified 01/01/21 09:58 turkey grease AdvReac Rash Uncoded 01/01/21 09:58 Family History Mother Heart disease Cancer Father Heart disease Cancer Sister Cancer Surgical History History of aortic valve replacement with bioprosthetic valve (~09/06/13) History of bilateral carotid endarterectomy History of coronary artery bypass surgery (~09/06/13) History of left mastectomy (~1998) History of right mastectomy (~1998) History of tubal ligation Social History (Updated 01/01/21 @ 17:55 by Jaja Carcamo) household members: none housing: house Smoking Status: Former smoker second hand exposure: Yes alcohol intake: never substance use type: does not use caffeine: Yes Type: coffee Number of servings: 2 what type of physical activity do you participate in: none ROS Constitutional Constitutional: Reports fatigue; Denies fever(s), frequent falls or weight gain Eyes Eyes: Reports systems reviewed and no addt'l complaints, except as documented ENT HEENT: Reports systems reviewed and no addt'l complaints, except as documented Cardiovascular Cardiovascular: Reports chest pain, chest pain at rest, chest pain with activity, dyspnea on exertion, easily tiring during activity, pounding heartbeat and racing heartbeat; Denies irregular heart rhythm, pedal edema or syncope Respiratory/Chest Respiratory/Chest: Reports shortness of breath with exertion; Denies dry cough or wheezing Gastrointestinal Gastrointestinal: Denies coffee ground emesis, diarrhea, hematemesis or rectal bleeding Musculoskeletal Musculoskeletal: Reports arthralgias, muscle weakness and myalgias Psychiatric Psychiatric: Reports systems reviewed and no addt'l complaints, except as documented Charges/Coding Visit Charges Office Visits / Consults: [id number] IP Consult L3 Lab / Micro Data Result Diagrams: 01/02/21 09:58 01/02/21 05:24
[2021-01-01 19:07] LABS: Troponin-I HS 44 pg/mL (3.0-54.0)
[2021-01-01 19:38] LABS: Vitamin B12 323 pg/mL (211-911)
[2021-01-01] MEDS: Aspirin E.C. 81 MG Tablet PO (20:30)
[2021-01-01] MEDS: 0.9% Saline Lock 10 ML Syringe IV ×2 (20:57→22:26)
[2021-01-01] MEDS: Ezetimibe 10 MG Tablet PO (21:07)
[2021-01-01] MEDS: Metoprolol Tartrate 100 MG Tablet PO (21:07)
[2021-01-01 22:30] LABS: Hematocrit 22.1 % (37-47); Hemoglobin 7.1 g/dL (12.0-15.0)
[2021-01-02] VITALS (18 sets, daily range): BP systolic 114–172; BP diastolic 46–61; PULSE 71–93; RESP 14–18; TEMP 36.3–37.3; O2SAT 2–100
[2021-01-02 03:14] LABS: Hematocrit 27.6 % (37-47); Hemoglobin 8.6 g/dL (12.0-15.0)
[2021-01-02 05:54] LABS: Absolute Lymphocyte Count 1.56 X10^3/uL (0.83-4.51); Absolute Neutrophil Count 7.7 X10^3/uL (2.0-7.7); Basophil# 0.06 X10^3/uL; Basophil% 0.6 % (0-1); Eosinophil# 0.36 X10^3/uL; Eosinophils% 3.4 % (0-5); Hematocrit 25.4 % (37-47); Hemoglobin 8.1 g/dL (12.0-15.0); Lymphocyte # 1.56 X10^3/ul (0.83-4.51); Lymphocyte % 14.6 % (19-41); Mean Corp Hgb Conc 31.9 g/dL (32-36); Mean Corpuscular Hgb 28.9 pg (27.0-32.0); Mean Corpuscular Volume 90.7 fL (81-99); Mean Platelet Vol. 9.6 fl (6.2-12.0); Monocyte# 0.81 X10^3/uL; Monocyte% 7.6 % (0-10); NRBC Flagged by Analyzer 0.3 % (0-5); Neutrophil # 7.72 X10^3/uL (2.7-7.7); Neutrophil % 72.5 % (47-70); Platelet Count 200 K/mm3 (150-450); RBC Distribution Width CV 16.4 % (11.6-14.6); RBC Distribution Width SD 53.8 fl (35.1-43.9); White Blood Count 10.7 K/mm3 (4.4-11.0)
[2021-01-02 06:28] LABS: ALB/GLOB Ratio 0.8 RATIO (0.9-2.4); AST(SGOT) 13 U/L (15-37); Alanine Aminotransfer ALT/SGPT 15 U/L (13-56); Albumin, Serum 2.2 g/dL (3.2-5.0); Alkaline Phosphatase 36 U/L (45-117); Anion Gap 4 (5-15); BUN 41 mg/dL (7-18); BUN/Creat Ratio 47.4 RATIO (10-20); Calcium,Total 7.4 mg/dL (8.5-10.1); Chloride 111 mmol/L (98-107); Creatinine, Serum 0.86 mg/dL (0.55-1.02); EST Glomerular Filtration Rate 67 mL/min (>60); Est Glom Filt Rate - Afr Amer 81 mL/min (>60); Estimated Creatinine Clearance 41.26 ml/min; Globulin 2.6 g/dL (2.2-4.2); Glucose 108 mg/dL (74-106); Magnesium 1.7 mg/dL (1.6-2.6); Phosphorus 2.8 mg/dL (2.5-4.9); Potassium 4.3 mmol/L (3.5-5.1); Protein, Total 4.8 g/dL (6.4-8.2); Sodium Level 141 mmol/L (136-145)
--- NOTE | 2021-01-02 08:00 | CON.PCM.SX_ITS ---
Assessment & Plan Assessment/Plan (1) Symptomatic anemia: PLAN: Patient was anemic upon admission and required 3 units of blood. The patient did not have any bloody bowel movements overnight. She is not having any abdominal pain. She is on 3 blood thinners including Pletal, Plavix, aspirin. The Pletal and aspirin have been held. The patient has severe aortic stenosis with a history of bovine valve repair and she is awaiting another valve repair. Given the fact that she is on 3 antiplatelet agents I would like these to be metabolized before performing any scopes. I believe that the bleeding may have already stopped as she has not had any bloody or black bowel movements overnight. If her hemoglobin stabilizes over the weekend I can perform an outpatient EGD and colonoscopy. If she has ongoing signs of active bleeding I will perform an EGD and colonoscopy on Tuesday. Gabriel Villa MD Pager: [facility] [address] [place] [address], [address] [place] [address] Office: HPI Consult Data Date of Consult: 01/02/21 HPI Narrative HPI Narrative: SAMMY SOLOMON, is a 80 F who presents with black stool and chest pain. Patient reports she has been having these chest spasms which hurt in her middle of her chest and they have been getting worse and more frequent. She also reports has been having black stools but she thinks is due to the iron that she is taking. She says she had an EGD and colonoscopy within the last year but the last one I could find on file was 2019 only showed minor gastritis. She does not complain of any abdominal pain at this time. [facility] Medical History Atherosclerotic heart disease of [place] coronary artery without angina pectoris Atypical chest pain Bilateral carotid artery stenosis Bilateral carotid bruits CAD (coronary artery disease) Carotid stenosis Jayson's syndrome Effusion, left knee Essential hypertension GERD (gastroesophageal reflux disease) History of left heart catheterization (LHC) (~07/14/20) HTN (hypertension) Nonrheumatic aortic (valve) stenosis [place] (obstructive sleep apnea) Osteoarthritis Paroxysmal atrial fibrillation PND (post-nasal drip) Psoriasis Pure hypercholesterolemia Sleep disorder Sleep disorder breathing SOB (shortness of breath) on exertion TIA (transient ischemic attack) Tobacco abuse Type 2 diabetes mellitus Home Medications cilostazol 50 mg PO BIDAC 09/01/13 [History Last Taken 04/12/19] ezetimibe 10 mg PO QHS 09/01/13 [History Last Taken 04/11/19] pantoprazole 40 mg PO BID 09/01/13 [History Last Taken 04/12/19] aspirin 81 mg PO BID 01/24/16 [History Last Taken 04/11/19] metoprolol tartrate 100 mg tablet 100 mg PO BID #180 tab 10/05/18 [Rx Last Taken 04/12/19] nitroglycerin 0.4 mg sublingual tablet 0.4 mg SUBLINGUAL Q5M PRN #25 tab [Rx Last Taken 04/12/19] acetaminophen 500 mg PO DAILY PRN PRN 04/12/19 [History Last Taken 04/08/19] niacin (inositol niacinate) 1,000 mg PO DAILY 04/12/19 [History Last Taken 04/12/19] clopidogrel 75 mg tablet 75 mg PO DAILY 11/22/19 [History Last Taken Unknown] ascorbic acid (vitamin C) 500 mg PO DAILY 05/14/20 [History Last Taken Unknown] ferrous sulfate 325 mg PO DAILY 08/21/20 [History Last Taken Unknown] furosemide [Lasix] 20 mg DAILY PRN 12/15/20 [History Last Taken Unknown] Allergy/AdvReac Type Severity Reaction Status Date / Time Sulfa (Sulfonamide Allergy Severe HEART Verified 01/01/21 09:58 Antibiotics) RACING Latex, Natural Rubber Allergy Rash, Verified 01/01/21 09:58 psioriasis amoxicillin [From Augmentin] AdvReac Nausea Verified 01/01/21 09:58 atorvastatin [From Lipitor] AdvReac Other Verified 01/01/21 09:58 clavulanic acid AdvReac Nausea Verified 01/01/21 09:58 [From Augmentin] Iodinated Contrast Media AdvReac Other Verified 01/01/21 09:58 [CONTRASTS] niacin AdvReac Other Verified 01/01/21 09:58 [From Niaspan Extended-Release] rosuvastatin [From Crestor] AdvReac Other Verified 01/01/21 09:58 turkey grease AdvReac Rash Uncoded 01/01/21 09:58 Family History Mother Heart disease Cancer Father Heart disease Cancer Sister Cancer Surgical History History of aortic valve replacement with bioprosthetic valve (~09/06/13) History of bilateral carotid endarterectomy History of coronary artery bypass surgery (~09/06/13) History of left mastectomy (~1998) History of right mastectomy (~1998) History of tubal ligation Social History (Updated 01/01/21 @ 17:55 by Jaja Carcamo) household members: none housing: house Smoking Status: Former smoker second hand exposure: Yes alcohol intake: never substance use type: does not use caffeine: Yes Type: coffee Number of servings: 2 what type of physical activity do you participate in: none ROS Constitutional Constitutional: Denies anorexia or fatigue Eyes Eyes: Denies blurry vision ENT HEENT: Denies abnormal hearing Cardiovascular Cardiovascular: Denies chest pain Respiratory/Chest Respiratory/Chest: Denies cough or productive cough Gastrointestinal Gastrointestinal: Reports melena; Denies abdominal pain, nausea or vomiting Musculoskeletal Musculoskeletal: Denies abnormal gait Integumentary Integumentary: Denies jaundice Neurologic Neurologic: Denies abnormal gait Psychiatric Psychiatric: Denies anxiety Hematologic/Lymphatic Hematologic/Lymphatic: Reports easy bleeding Physical Exam Const alert and oriented x3 HEENT normocephalic Neck full ROM Resp normal respiratory effort Cardio Rate: regular rate GI soft to palpation and non-tender Neuro CN's II-XII intact bilaterally Lab / Micro Data Result Diagrams: 01/02/21 05:24 01/02/21 05:24 Labs: Laboratory Results - last 24 hr 01/01/21 09:36: WBC 11.3 H, RBC 2.43 L, Hgb 6.5 L, Hct 22.1 L, MCV 90.9, MCH 26.7 L, MCHC 29.4 L, RDW Std Deviation 55.5 H, RDW Coeff of [place] 17.1 H, Plt Count 333, MPV 9.6, Immature Gran % (Auto) 1.000 H, Neut % (Auto) 77.4 H, Lymph % (Auto) 12.3 L, [place] % (Auto) 4.8, Eos % (Auto) 4.2, Baso % (Auto) 0.3, Abs olute Neuts (auto) 8.8 H, Absolute Lymphs (auto) 1.39, Nucleated RBC % 0.3 01/01/21 09:36: Sodium 141, Potassium 4.1, Chloride 108 H, Carbon Dioxide 28.0, Anion Gap 5, BUN 35 H, Creatinine 1.00, Estim Creat Clear Calc 35.49, Est GFR (MDRD) Af Amer 69, Est GFR (MDRD) Non-Af 57 L, BUN/Creatinine Ratio 35.1 H, Glucose 163 H, Calcium 8.6, Troponin I High Sens 26 01/01/21 10:15: Blood Type A POSITIVE, Antibody Screen NEGATIVE 01/01/21 10:15: Crossmatch See Detail 01/01/21 12:48: Retic Count 4.12 H, Immature Retic Fraction 47.60 H, Retic Hgb Equivalent 28.0 L 01/01/21 12:48: Iron 36 L, TIBC 384, Iron Saturation 9.4 L, Ferritin 7 L, Troponin I High Sens 28, Folate 9.30 01/01/21 12:48: Hgb Cancelled, Hct Cancelled 01/01/21 15:20: Troponin I High Sens 34 01/01/21 18:12: Troponin I High Sens 44 01/01/21 18:12: Vitamin B12 323 01/01/21 22:00: Hgb 7.1 L, Hct 22.1 L 01/02/21 02:50: Hgb 8.6 L, Hct 27.6 L 01/02/21 05:24: WBC 10.7, RBC 2.80 L, Hgb 8.1 L, Hct 25.4 L, MCV 90.7, MCH 28.9, MCHC 31.9 L D, RDW Std Deviation 53.8 H, RDW Coeff of [place] 16.4 H, Plt Count 200, MPV 9.6, Immature Gran % (Auto) 1.300 H, Neut % (Auto) 72.5 H, Lymph % (Auto) 14.6 L, [place] % (Auto) 7.6, Eos % (Auto) 3.4, Baso % (Auto) 0.6, Absolute Neuts (auto) 7.7, Absolute Lymphs (auto) 1.56, Nucleated RBC % 0.3 01/02/21 05:24: Sodium 141, Potassium 4.3, Chloride 111 H, Carbon Dioxide 26.0, Anion Gap 4 L, BUN 41 H, Creatinine 0.86, Estim Creat Clear Calc 41.26, Est GFR (MDRD) Af Amer 81, Est GFR (MDRD) Non-Af 67, BUN/Creatinine Ratio 47.4 H, Glucose 108 H, Calcium 7.4 L, Phosphorus 2.8, Magnesium 1.7, Total Bilirubin 0.90, AST 13 L, ALT 15, Alkaline Phosphatase 36 L, Total Protein 4.8 L, Albumin 2.2 L, Globulin 2.6, Albumin/Globulin Ratio 0.8 L Micro: Microbiology 01/01/21 10:22 Nasal Secretion SARS-CoV-2 Antigen (Rapid) - Final Rhythm Strip Rhythm Strip: Sinus Rhythm Rate: 84 Ectopy: None Radiology Impression Chest X-Ray 01/01/21 10:36 IMPRESSION: Hyperinflation. No acute abnormality is seen. Electronically Signed: Manolo Sierra MD at 10:56 EDT , Service support ,
[2021-01-02] MEDS: Ascorbic Acid 500 MG Tablet PO (09:04)
[2021-01-02] MEDS: Metoprolol Tartrate 100 MG Tablet PO ×2 (09:04→21:01)
[2021-01-02] MEDS: 0.9% Saline Lock 10 ML Syringe IV ×2 (09:21→17:42)
[2021-01-02 10:09] LABS: Hematocrit 26.4 % (37-47); Hemoglobin 8.2 g/dL (12.0-15.0)
--- NOTE | 2021-01-02 11:55 | CASEMGMT ---
[facility] Face to Face with patient for initial transition planning/care coordination assessment. RN CM introduced self and role at [facility]. Patient lying in bed, alert and oriented. Patient willing to participate in assessment and is able to answer all questions appropriately. Care providers, pharmacy, and demographics verified. Patient wishes to discharge home, denies need for home health at this time, will follow progress with therapy. Patient states she has no further needs or concerns at this time. CM to follow for discharge planning needs that may arise. PCP: James Specialists: [facility] bro[facility] Preferred [facility]acy: [facility] Insurance: [employer] [facility] Prescription Benefit: yes Living Will/HPOA: yes, son Don Swann LNOK: son, grandson, niece Living Arrangements: Patient lives alone in a single story home with 2 steps to enter. Patient states she is independent at home. Transportation: self/grandson/niece DME/HHC: Patient states she has shower chair, raised toilet, and walker at home. Patient denies previous HHC or SNF Disposition Plan: Patient to discharge home with family support and follow-up plans in place. Will monitor for need for HHC at discharge. Mamta SOTO, RN, CM
--- NOTE | 2021-01-02 14:50 | PN.CARD_ITS ---
Documented by User: Dayan ROSA, SHELLEY 01/02/21 16:41 Subjective Subjective This is an 80 year old female that presented to [facility] for just not feeling right. She was admitted for chest pain and fatigue. 3 weeks ago she was in the ER for anemia. She did receive 3 PRBCs. She left AMA as she did not want to wait to be transferred to [facility] for further work up with her anemia. She does have a hx of CAD, CABG, paroxysmal atrial fibrillation, bioprosthetic aortic valve replacement, bilateral carotid artery stenosis status post endarterectomy, superimposed upon hyperlipidemia and hypertension. She has been following with Dr. Phillips for her aortic valve. She tells me that at the last OV she was told that her valve was not bad enough to be fixed yet. She tells me that she has a f/u with them in January. Pt feels better today. She has not had any further chest pain that she had yesterday. She does not have any SOB at rest. She is not sure what would happen if she gets up to walk. Objective Data Vital Signs: Vital Signs Temp Pulse Resp BP Pulse Ox 98.2 F 80 14 126/47 H 99 01/02/21 08:21 01/02/21 11:28 01/02/21 08:21 01/02/21 08:21 01/02/21 08:21 Oxygen Flow Rate (L/min) 2 Oxygen Delivery Method Nasal Cannula Weight: 161 lb 9.581 oz Body Mass Index (BMI) 29.5 Intake & Output: Intake and Output for Last 24 Hours 12/31/20 01/01/21 01/02/21 23:59 23:59 23:59 Intake Total 746 / 746 483.84 / 483.84 Output Total 900 / 900 Balance 746 / 746 -416.16 / -416.16 Lab / Micro Data Result Diagrams: 01/02/21 09:58 01/02/21 05:24 Labs: Laboratory Results - last 24 hr 01/01/21 10:15: Crossmatch See Detail 01/01/21 12:48: Hgb Cancelled, Hct Cancelled 01/01/21 15:20: Troponin I High Sens 34 01/01/21 18:12: Troponin I High Sens 44 01/01/21 18:12: Vitamin B12 323 01/01/21 22:00: Hgb 7.1 L, Hct 22.1 L 01/02/21 02:50: Hgb 8.6 L, Hct 27.6 L 01/02/21 05:24: WBC 10.7, RBC 2.80 L, Hgb 8.1 L, Hct 25.4 L, MCV 90.7, MCH 28.9, MCHC 31.9 L D, RDW Std Deviation 53.8 H, RDW Coeff of Velasquez 16.4 H, Plt Count 200, MPV 9.6, Immature Gran % (Auto) 1.300 H, Neut % (Auto) 72.5 H, Lymph % (Auto) 14.6 L, [place] % (Auto) 7.6, Eos % (Auto) 3.4, Baso % (Auto) 0.6, Absolute Neuts (auto) 7.7, Absolute Lymphs (auto) 1.56, Nucleated RBC % 0.3 01/02/21 05:24: Sodium 141, Potassium 4.3, Chloride 111 H, Carbon Dioxide 26.0, Anion Gap 4 L, BUN 41 H, Creatinine 0.86, Estim Creat Clear Calc 41.26, Est GFR (MDRD) Af Amer 81, Est GFR (MDRD) Non-Af 67, BUN/Creatinine Ratio 47.4 H, Glucose 108 H, Calcium 7.4 L, Phosphorus 2.8, Magnesium 1.7, Total Bilirubin 0.90, AST 13 L, ALT 15, Alkaline Phosphatase 36 L, Total Protein 4.8 L, Albumin 2.2 L, Globulin 2.6, Albumin/Globulin Ratio 0.8 L 01/02/21 09:58: Hgb 8.2 L, Hct 26.4 L Micro: Microbiology 01/01/21 10:22 Nasal Secretion SARS-CoV-2 Antigen (Rapid) - Final Rhythm Strip Rhythm Strip: Sinus Rhythm Rate: 84 Ectopy: None Cardiology Labs/Tests 01/01/21 12:48: Hgb Cancelled, Hct Cancelled 01/01/21 22:00: Hgb 7.1 L, Hct 22.1 L 01/02/21 02:50: Hgb 8.6 L, Hct 27.6 L 01/02/21 05:24: WBC 10.7, RBC 2.80 L, Hgb 8.1 L, Hct 25.4 L, MCV 90.7, MCH 28.9, MCHC 31.9 L D, Plt Count 200, MPV 9.6, Immature Gran % (Auto) 1.300 H, Neut % (Auto) 72.5 H, Lymph % (Auto) 14.6 L, [place] % (Auto) 7.6, Eos % (Auto) 3.4, Baso % (Auto) 0.6, Absolute Neuts (auto) 7.7, Nucleated RBC % 0.3 01/02/21 05:24: Sodium 141, Potassium 4.3, Chloride 111 H, Carbon Dioxide 26.0, Anion Gap 4 L, BUN 41 H, Creatinine 0.86, Est GFR (MDRD) Af Amer 81, Est GFR (MDRD) Non-Af 67, BUN/Creatinine Ratio 47.4 H, Glucose 108 H, Calcium 7.4 L, Phosphorus 2.8, Magnesium 1.7, Total Bilirubin 0.90 01/02/21 09:58: Hgb 8.2 L, Hct 26.4 L Rhythm: EKG: NSR, St&T wave abnormality, consider lateral ischemia ECHO: 04/2020: Left ventricular systolic function is normal. The estimated ejection fraction is 65 %. Moderate concentric left ventricular hypertrophy. The left atrium is moderately enlarged. There is moderate mitral annular calcification. Extension of the mitral annular calcification on the base of the posterior mitral valve leaflet. Anterior leaflet diffuse mitral valve thickening. Mild (1+) mitral valve insufficiency. Mild to moderate (1-2+) eccentric tricuspid valve insufficiency. Stable appearing bioprosthetic aortic valve apparatus. Severe aortic stenosis. Right ventricular systolic pressure estimated to be 34 mmHg. There is evidence of diastolic dysfunction. Stress Test: 04/2020: 1. Rest and stress SPECT Cardiolite nuclear imaging demonstrate relative uniform tracer uptake and myocardial perfusion appearing within normal limits. 2. The gated Cardiolite study reports an LVEF of 59%. CXR: 01/01/21: Hyperinflation. No acute abnormality is seen. Physical Exam Const alert, oriented x3 and no apparent distress Constitutional Narrative: pale HEENT normocephalic, head/scalp atraumatic, hearing grossly normal bilaterally, external ears normal and moist oral mucous membranes Eyes PERRL, EOMs intact bilaterally, conjunctivae normal and no scleral icterus Neck full ROM, no lymphadenopathy and supple Chest inspection of chest normal Resp normal respiratory effort, normal air movement, no retractions and clear to auscultation bilaterally Cardio Jugular Venous Distention: JVD Rate: regular rate Rhythm: regular rhythm Heart Sounds: S1 normal, S2 normal and murmur systolic III/ GI normal to inspection, nondistended, normoactive bowel sounds, soft to palpation, non-tender and non-distended Neuro oriented x3, CN's II-XII intact bilaterally and moves all extremities Assessment & Plan Assessment/Plan (1) Chest pain: (2) Symptomatic anemia: (3) Severe aortic stenosis: (4) History of aortic valve replacement with bioprosthetic valve: (5) Essential hypertension: (6) Paroxysmal atrial fibrillation: (7) Atherosclerotic heart disease of [place] coronary artery without angina pectoris: QUALIFIERS: [place] vs. transplanted heart: [place] heart Qualified Code(s): I25.10 - Atherosclerotic heart disease of [place] coronary artery without angina pectoris PLAN: * Echo is pending to further assess her aortic stenosis. * she does have symptomatic anemia, surgery was consulted, plans are to undergo upper and lower GI on tuesday, with pts severe she would benefit to keep Hgb closer to 10 * BP is stable, continue to monitor. Charges/Coding Visit Charges Inpatient E&M: 96522 Subs Hosp L2 Documented by User: Dr. Kaelyn Landers MD 01/02/21 16:49 Lab / Micro Data Result Diagrams: 01/02/21 09:58 01/02/21 05:24 Assessment & Plan Assessment/Plan (1) Symptomatic anemia: (2) Severe aortic stenosis: (3) History of aortic valve replacement with bioprosthetic valve: (4) Atherosclerotic heart disease of [place] coronary artery without angina pectoris: QUALIFIERS: [place] vs. transplanted heart: [place] heart Qualified Code(s): I25.10 - Atherosclerotic heart disease of [place] coronary artery without angina pectoris PLAN: I reviewed the current data, including current lab, medication cardiac care plan and agree with the documentation as. The midlevel Patient has symptomatic anemia with severe aortic stenosis with a history of aortic valve replacement using bioprosthetic aortic valve as well as a history of atherosclerotic coronary artery disease. She underwent cardiac catheterization which showed patency of her graft We will continue to monitor and follow-up clinically. Once GI evaluation completed and hemoglobin improved patient will be arranged for transfer to [facility] to evaluate and assess for TAVR.
--- NOTE | 2021-01-02 20:50 | PCM.PN.HOSP ---
Subjective Subjective Patient was seen and examined today, her hemoglobin appears to be stable at this time, I have changed her continuous Protonix drip to IV Protonix every 12 hours. Patient will undergo endoscopy and colonoscopy on Tuesday, she prefers not to be discharged home at this time, I will recheck her hemoglobin in the morning. Objective Data Objective Data Vital Signs: Vital Signs Temp Pulse Resp BP Pulse Ox 99.2 F H 75 15 124/46 H 99 01/02/21 14:00 01/02/21 19:00 01/02/21 14:00 01/02/21 14:00 01/02/21 14:00 Oxygen Flow Rate (L/min) 2 Oxygen Delivery Method Nasal Cannula Weight: 73.3 kg Body Mass Index (BMI) 29.5 Intake & Output: Intake and Output for Last 24 Hours 12/31/20 01/01/21 01/02/21 23:59 23:59 23:59 Intake Total 746 / 746 967.34 / 967.34 Output Total 1800 / 1800 Balance 746 / 746 -832.66 / -832.66 Lab / Micro Data Result Diagrams: 01/02/21 09:58 01/02/21 05:24 Labs: Laboratory Results - last 24 hr 01/01/21 10:15: Crossmatch See Detail 01/01/21 22:00: Hgb 7.1 L, Hct 22.1 L 01/02/21 02:50: Hgb 8.6 L, Hct 27.6 L 01/02/21 05:24: WBC 10.7, RBC 2.80 L, Hgb 8.1 L, Hct 25.4 L, MCV 90.7, MCH 28.9, MCHC 31.9 L D, RDW Std Deviation 53.8 H, RDW Coeff of Velasquez 16.4 H, Plt Count 200, MPV 9.6, Immature Gran % (Auto) 1.300 H, Neut % (Auto) 72.5 H, Lymph % (Auto) 14.6 L, [place] % (Auto) 7.6, Eos % (Auto) 3.4, Baso % (Auto) 0.6, Absolute Neuts (auto) 7.7, Absolute Lymphs (auto) 1.56, Nucleated RBC % 0.3 01/02/21 05:24: Sodium 141, Potassium 4.3, Chloride 111 H, Carbon Dioxide 26.0, Anion Gap 4 L, BUN 41 H, Creatinine 0.86, Estim Creat Clear Calc 41.26, Est GFR (MDRD) Af Amer 81, Est GFR (MDRD) Non-Af 67, BUN/Creatinine Ratio 47.4 H, Glucose 108 H, Calcium 7.4 L, Phosphorus 2.8, Magnesium 1.7, Total Bilirubin 0.90, AST 13 L, ALT 15, Alkaline Phosphatase 36 L, Total Protein 4.8 L, Albumin 2.2 L, Globulin 2.6, Albumin/Globulin Ratio 0.8 L 01/02/21 09:58: Hgb 8.2 L, Hct 26.4 L Micro: Microbiology 01/01/21 10:22 Nasal Secretion SARS-CoV-2 Antigen (Rapid) - Final Radiography Diagnostic Testing: Radiology Impression Echocardiogram 01/01/21 17:54 Interpretation Summary Normal LV systolic function. The estimated ejection fraction is EF 55-60 %. Mild Concentric LVH Moderate Pulmonary hypertension. PASP 55 mmhg Severe MILES 0.77 cm2 Mild AI Ordering Physician: Kaelyn Landers Referring Physician: CELE OLVERA Performed By: Pam Rodarte, FABRICIO, RVT Rhythm Strip Rhythm Strip: Sinus Rhythm Rate: 84 Ectopy: None Physical Exam Const alert, oriented x3, no apparent distress, average body habitus and well nourished General Appearance: cooperative, well kempt and well developed Orientation / Consciousness: awake, oriented to person, oriented to place and oriented to time HEENT normocephalic, head/scalp atraumatic and moist oral mucous membranes Head and Scalp: normocephalic Eyes PERRL, EOMs intact bilaterally and conjunctivae normal Neck nuchal rigidity, supple, no JVD, thyroid normal and no carotid bruits General: trachea midline Resp normal respiratory effort and clear to auscultation bilaterally Auscultation: Negative for rales, rhonchi or wheezes Cardio regular rate, regular rhythm, S1 normal heart sound, S2 normal heart sound, no murmurs, no rub and no gallops GI normal to inspection, nondistended, normoactive bowel sounds, soft to palpation, non-tender and non-distended Extremity normal to inspection and no clubbing, cyanosis or edema Skin no rashes or lesions noted General Skin Exam: no breakdown Neuro oriented x3, CN's II-XII intact bilaterally, no focal motor deficits and no sensory deficits noted Sensorium / Orientation: awake and alert Speech: speech normal Psych thought process normal and affect normal Assessment & Plan Assessment/Plan (1) Acute on chronic anemia: PLAN: 1. Acute on chronic iron deficiency anemia-etiology unclear at this point, patient will undergo endoscopy and colonoscopy on Tuesday, she will remain on clear liquids, general surgery is participating in her care, continue to monitor H&H, I will give the patient a transfusion of Venofer tomorrow #2 coronary artery disease-cardiology is participating in her care, no intervention is planned at this time #3 type 2 diabetes #4 aortic valvular disease-aortic stenosis-patient was evaluated for possible TAVR recently but was not felt to be in need of this procedure at this time. This is according to the patient. #5 essential hypertension #6 hyperlipidemia Charges/Coding Visit Charges Inpatient E&M: 70600 Subs Hosp L2
[2021-01-02] MEDS: Ezetimibe 10 MG Tablet PO (21:01)
[2021-01-03] VITALS (23 sets, daily range): BP systolic 115–171; BP diastolic 55–72; PULSE 72–86; RESP 14–18; TEMP 36.2–36.9; O2SAT 94–100
[2021-01-03 07:32] LABS: Hematocrit 24.3 % (37-47); Hemoglobin 7.6 g/dL (12.0-15.0)
[2021-01-03] MEDS: Metoprolol Tartrate 100 MG Tablet PO ×2 (09:08→21:30)
[2021-01-03] MEDS: Ascorbic Acid 500 MG Tablet PO (09:08)
[2021-01-03] MEDS: 0.9% Saline Lock 10 ML Syringe IV ×2 (15:35→21:31)
--- NOTE | 2021-01-03 15:40 | PN.CARD_ITS ---
Subjective Subjective Patient had no symptoms to report today. Objective Data Vital Signs: Vital Signs Temp Pulse Resp BP Pulse Ox 97.3 F L 78 18 115/56 L 100 01/03/21 15:33 01/03/21 15:33 01/03/21 15:33 01/03/21 15:33 01/03/21 15:33 Oxygen Flow Rate (L/min) 2 Oxygen Delivery Method Nasal Cannula Weight: 161 lb 9.581 oz Body Mass Index (BMI) 29.5 Intake & Output: Intake and Output for Last 24 Hours 01/01/21 01/02/21 01/03/21 23:59 23:59 23:59 Intake Total 746 / 746 1077.34 / 1077.34 620 / 620 Output Total 1800 / 2825 2075 / 2075 Balance 746 / 746 -722.66 / -1747.66 -1455 / -1455 Lab / Micro Data Result Diagrams: 01/03/21 06:00 01/02/21 05:24 Labs: Laboratory Results - last 24 hr 01/01/21 10:15: Crossmatch See Detail 01/01/21 10:15: Crossmatch See Detail 01/03/21 06:00: Hgb 7.6 L, Hct 24.3 L Rhythm Strip Rhythm Strip: Sinus Rhythm Rate: 84 Ectopy: None Cardiology Labs/Tests 01/03/21 06:00: Hgb 7.6 L, Hct 24.3 L Rhythm: EKG: ECHO: Stress Test: Cardiac Cath: PCI: CT Surgery: Holter monitor: EPS: PPM: CXR: Chest CT Scan: Radiography Diagnostic Testing: Radiology Impression Echocardiogram 01/01/21 17:54 Interpretation Summary Normal LV systolic function. The estimated ejection fraction is EF 55-60 %. Mild Concentric LVH Moderate Pulmonary hypertension. PASP 55 mmhg Severe MILES 0.77 cm2 Mild AI Ordering Physician: Kaelyn Landers Referring Physician: CELE OLVERA Performed By: Pam Rodarte, RDCS, RVT Physical Exam Narrative Patient alert and orientated Cardiovascular exam cardiac monitor revealed normal sinus She had systolic murmur well heard in the aortic valve area There is no diastolic murmur Chest exam is clear to auscultation Examination abdomen is soft Examination lower extremity no clubbing no cyanosis no lower extremity edema. Central nervous system no focal neurological deficit. Assessment & Plan Assessment/Plan (1) History of coronary artery disease: (2) History of aortic valve replacement with bioprosthetic valve: (3) Paroxysmal atrial fibrillation: (4) History of coronary artery bypass surgery: (5) Atypical chest pain: (6) Severe aortic stenosis: PLAN: 80-year-old patient with history of CAD CABG with aortic valve bioprosthesis She has evaluation by our jewel oliving machine operator at [facility] Dr. Cruz with current angiography showing patency of the graft Patient had severe aortic valve stenosis with aortic valve area 0.77 cm?, patient has normal LV systolic function ejection fraction 55-60% mild concentric left ventricle hypertrophy with moderate pulmonary hypertension with pulmonary artery systolic pressure in the range of 55 mmHg. This presentation with anemia, acute on chronic iron deficiency anemia await for GI evaluation with endoscopy and colonoscopy. Cardiac recommendation plan; Patient to follow-up with her primary jewel oliving machine operator Dr. Cruz She actually had appointment in February 16 to discuss further plan and recommendation regarding severe aortic stenosis possible TAVR We will continue current medical treatment.
--- NOTE | 2021-01-03 19:59 | PCS.PANDOC ---
PANDEMIC DOCUMENTATION INITIATED: Date: 12/08/2020 Time: 190
--- NOTE | 2021-01-03 20:26 | PCM.PN.HOSP ---
Subjective Subjective Patient was seen and examined today, her hemoglobin this morning was 7.6 and I have decided to transfuse 2 units of packed red blood cells in addition to giving Venofer today. Patient will undergo prep for colonoscopy starting tomorrow, EGD and colonoscopy will be performed on Tuesday. Objective Data Objective Data Vital Signs: Vital Signs Temp Pulse Resp BP Pulse Ox 98.4 F 74 16 136/62 H 100 01/03/21 19:46 01/03/21 19:46 01/03/21 19:46 01/03/21 19:46 01/03/21 20:04 Oxygen Flow Rate (L/min) 2 Oxygen Delivery Method Nasal Cannula Weight: 73.3 kg Body Mass Index (BMI) 29.5 Intake & Output: Intake and Output for Last 24 Hours 01/01/21 01/02/21 01/03/21 23:59 23:59 23:59 Intake Total 746 / 746 1077.34 / 1077.34 1020 / 1020 Output Total 1800 / 2825 2075 / 2075 Balance 746 / 746 -722.66 / -1747.66 -1055 / -1055 Lab / Micro Data Result Diagrams: 01/03/21 06:00 01/02/21 05:24 Labs: Laboratory Results - last 24 hr 01/01/21 10:15: Crossmatch See Detail 01/01/21 10:15: Crossmatch See Detail 01/03/21 06:00: Hgb 7.6 L, Hct 24.3 L Micro: Microbiology 01/01/21 10:22 Nasal Secretion SARS-CoV-2 Antigen (Rapid) - Final Rhythm Strip Rhythm Strip: Sinus Rhythm Rate: 84 Ectopy: None Physical Exam Narrative alert, oriented x3, no apparent distress, average body habitus and well nourished General Appearance: cooperative, well kempt and well developed Orientation / Consciousness: awake, oriented to person, oriented to place and oriented to time HEENT normocephalic, head/scalp atraumatic and moist oral mucous membranes Head and Scalp: normocephalic Eyes PERRL, EOMs intact bilaterally and conjunctivae normal Neck nuchal rigidity, supple, no JVD, thyroid normal and no carotid bruits General: trachea midline Resp normal respiratory effort and clear to auscultation bilaterally Auscultation: Negative for rales, rhonchi or wheezes Cardio regular rate, regular rhythm, S1 normal heart sound, S2 normal heart sound, no murmurs, no rub and no gallops GI normal to inspection, nondistended, normoactive bowel sounds, soft to palpation, non-tender and non-distended Extremity normal to inspection and no clubbing, cyanosis or edema Skin no rashes or lesions noted General Skin Exam: no breakdown Neuro oriented x3, CN's II-XII intact bilaterally, no focal motor deficits and no sensory deficits noted Sensorium / Orientation: awake and alert Speech: speech normal Psych thought process normal and affect normal Assessment & Plan Assessment/Plan (1) Acute on chronic anemia: PLAN: 1. Acute on chronic iron deficiency anemia-etiology unclear at this point, patient will undergo endoscopy and colonoscopy on Tuesday, she will remain on clear liquids, general surgery is participating in her care, continue to monitor H&H, I will give the patient a transfusion of Venofer tomorrow, patient had 2 units of packed red blood cells transfused today. #2 coronary artery disease-cardiology is participating in her care, no intervention is planned at this time #3 type 2 diabetes #4 aortic valvular disease-aortic stenosis-patient was evaluated for possible TAVR recently but was not felt to be in need of this procedure at this time. This is according to the patient. #5 essential hypertension #6 hyperlipidemia Charges/Coding Visit Charges Inpatient E&M: 65202 Subs Hosp L2
--- NOTE | 2021-01-03 20:31 | PCM.PN.SRG ---
Subjective Subjective patient complaint of slight abdominal pain has not had a bloody bowel movement receiving additional blood transfusion Objective Data Objective Data Vital Signs: Vital Signs Temp Pulse Resp BP Pulse Ox 98.4 F 74 16 136/62 H 100 01/03/21 19:46 01/03/21 19:46 01/03/21 19:46 01/03/21 19:46 01/03/21 20:04 Oxygen Flow Rate (L/min) 2 Oxygen Delivery Method Nasal Cannula Weight: 73.3 kg Body Mass Index (BMI) 29.5 Intake & Output: Intake and Output for Last 24 Hours 01/01/21 01/02/21 01/03/21 23:59 23:59 23:59 Intake Total 746 / 746 1077.34 / 1077.34 1020 / 1020 Output Total 1800 / 2825 2075 / 2075 Balance 746 / 746 -722.66 / -1747.66 -1055 / -1055 Lab / Micro Data Result Diagrams: 01/03/21 06:00 01/02/21 05:24 Labs: Laboratory Results - last 24 hr 01/01/21 10:15: Crossmatch See Detail 01/01/21 10:15: Crossmatch See Detail 01/03/21 06:00: Hgb 7.6 L, Hct 24.3 L Micro: Microbiology 01/01/21 10:22 Nasal Secretion SARS-CoV-2 Antigen (Rapid) - Final Rhythm Strip Rhythm Strip: Sinus Rhythm Rate: 84 Ectopy: None Physical Exam Const alert and oriented x3 Resp normal respiratory effort GI GI Narrative: soft and benign, no peritoneal signs noted Assessment & Plan Assessment/Plan (1) Symptomatic anemia: PLAN: patient awaiting upper and lower endoscopy by Dr. Villa on Tuesday
[2021-01-03] MEDS: Ezetimibe 10 MG Tablet PO (21:30)
[2021-01-04] VITALS (12 sets, daily range): BP systolic 127–133; BP diastolic 53–62; PULSE 63–85; RESP 16–18; TEMP 36.8–37; O2SAT 94–98
--- NOTE | 2021-01-04 05:22 | NURSING ---
21:50 Pt called out and reported having a mini TIA. This nurse went into room to assess patient and NIH score was 0. Patient states it last for about 15 minutes when she has these mini TIA. Will continue to monitor throughout the night call light within reach.
[2021-01-04 05:40] LABS: Hematocrit 32.1 % (37-47); Hemoglobin 10.5 g/dL (12.0-15.0)
[2021-01-04] MEDS: Electrolyte Solution/Peg's 4000 ML 2000 ML PO ×2 (06:22→16:09)
[2021-01-04] MEDS: Ascorbic Acid 500 MG Tablet PO (08:20)
[2021-01-04] MEDS: Metoprolol Tartrate 100 MG Tablet PO ×2 (08:20→20:33)
--- NOTE | 2021-01-04 14:51 | PN.CARD_ITS ---
Subjective Subjective Doing well no symptoms reported today Objective Data Vital Signs: Vital Signs Temp Pulse Resp BP Pulse Ox 98.3 F 64 16 128/57 H 98 01/04/21 14:18 01/04/21 14:18 01/04/21 14:18 01/04/21 14:18 01/04/21 14:18 Oxygen Flow Rate (L/min) 2 Oxygen Delivery Method Room Air Weight: 161 lb 9.581 oz Body Mass Index (BMI) 29.5 Intake & Output: Intake and Output for Last 24 Hours 01/02/21 01/03/21 01/04/21 23:59 23:59 23:59 Intake Total 1077.34 / 1077.34 1530 / 1530 380 / 380 Output Total 1800 / 2825 3075 / 3075 750 / 750 Balance -722.66 / -1747.66 -1545 / -1545 -370 / -370 Lab / Micro Data Result Diagrams: 01/04/21 05:25 01/02/21 05:24 Labs: Laboratory Results - last 24 hr 01/01/21 10:15: Crossmatch See Detail 01/01/21 10:15: Crossmatch See Detail 01/04/21 05:25: Hgb 10.5 L, Hct 32.1 L Rhythm Strip Rhythm Strip: Sinus Rhythm Rate: 84 Ectopy: None Cardiology Labs/Tests 01/04/21 05:25: Hgb 10.5 L, Hct 32.1 L Rhythm: Normal sinus rhythm Physical Exam Narrative Alert orientated Not in acute distress Cardiovascular exam Telemetry showed normal sinus rhythm Card examination S1-S2 regular Systolic murmur heard in the aortic area consistent with aortic stenosis Chest examination clear to auscultation bilateral Examination abdomen soft Examination lower extremity no clubbing no cyanosis no lower extremity edema Examination Central nervous system no focal logical deficit. Assessment & Plan Assessment/Plan (1) Symptomatic anemia: (2) History of aortic valve replacement with bioprosthetic valve: (3) History of coronary artery bypass surgery: (4) Severe aortic stenosis: PLAN: This patient with CAD prior carotid bypass surgery and aortic valve bioprosthesis She see her primary director of personnel Dr. Cruz And had a cardiac catheterization in June 2020 which showed patency of her bypass grafts and she had severe aortic valve stenosis Echocardiogram over here showed ejection fraction is preserved, with severe aortic stenosis with aortic valve area 0.77 cm? On this admission main problem is anemia requiring blood transfusion. 9 due to symptomatic anemia patient awaiting upper and lower endoscopy From cardiac standpoint we will continue to monitor on telemetry and once she is stable she can follow-up with her primary director of personnel to discuss plan of management of severe aortic stenosis/TAVR
--- NOTE | 2021-01-04 16:54 | PCM.PN.SRG ---
Subjective Subjective patient denies abdominal pain doing her colon cleansing preparation right now, concern to be completely out during procedure, concern about dermatitis Objective Data Objective Data Vital Signs: Vital Signs Temp Pulse Resp BP Pulse Ox 98.3 F 63 16 128/57 H 98 01/04/21 14:18 01/04/21 15:01 01/04/21 14:18 01/04/21 14:18 01/04/21 14:18 Oxygen Flow Rate (L/min) 2 Oxygen Delivery Method Room Air Weight: 73.3 kg Body Mass Index (BMI) 29.5 Intake & Output: Intake and Output for Last 24 Hours 01/02/21 01/03/21 01/04/21 23:59 23:59 23:59 Intake Total 1077.34 / 1077.34 1530 / 1530 380 / 380 Output Total 1800 / 2825 3075 / 3075 750 / 750 Balance -722.66 / -1747.66 -1545 / -1545 -370 / -370 Lab / Micro Data Result Diagrams: 01/04/21 05:25 01/02/21 05:24 Labs: Laboratory Results - last 24 hr 01/01/21 10:15: Crossmatch See Detail 01/04/21 05:25: Hgb 10.5 L, Hct 32.1 L Micro: Microbiology 01/01/21 10:22 Nasal Secretion SARS-CoV-2 Antigen (Rapid) - Final Rhythm Strip Rhythm Strip: Sinus Rhythm Rate: 84 Ectopy: None Physical Exam Const alert and oriented x3 Resp normal respiratory effort Assessment & Plan Assessment/Plan (1) Symptomatic anemia: PLAN: scheduled for upper and lower endoscopy tomorrow by Dr. Villa
--- NOTE | 2021-01-04 19:57 | PCM.PN.HOSP ---
Subjective Subjective Patient was seen and examined today, her hemoglobin today was 10.5. I instituted to prep for her colonoscopy tomorrow. Objective Data Objective Data Vital Signs: Vital Signs Temp Pulse Resp BP Pulse Ox 98.3 F 67 16 128/57 H 98 01/04/21 14:18 01/04/21 19:00 01/04/21 14:18 01/04/21 14:18 01/04/21 14:18 Oxygen Flow Rate (L/min) 2 Oxygen Delivery Method Room Air Weight: 73.3 kg Body Mass Index (BMI) 29.5 Intake & Output: Intake and Output for Last 24 Hours 01/02/21 01/03/21 01/04/21 23:59 23:59 23:59 Intake Total 1077.34 / 1077.34 1530 / 1530 380 / 380 Output Total 1800 / 2825 3075 / 3075 750 / 750 Balance -722.66 / -1747.66 -1545 / -1545 -370 / -370 Lab / Micro Data Result Diagrams: 01/04/21 05:25 01/02/21 05:24 Labs: Laboratory Results - last 24 hr 01/01/21 10:15: Crossmatch See Detail 01/04/21 05:25: Hgb 10.5 L, Hct 32.1 L Micro: Microbiology 01/01/21 10:22 Nasal Secretion SARS-CoV-2 Antigen (Rapid) - Final Rhythm Strip Rhythm Strip: Sinus Rhythm Rate: 84 Ectopy: None Physical Exam Const alert, oriented x3 and no apparent distress General Appearance: cooperative, well kempt and well developed Orientation / Consciousness: awake, oriented to person, oriented to place and oriented to time HEENT normocephalic and moist oral mucous membranes Eyes PERRL, EOMs intact bilaterally and conjunctivae normal Neck nuchal rigidity, supple, no JVD, thyroid normal and no carotid bruits General: trachea midline Resp normal respiratory effort, no retractions, no use of accessory muscles and clear to auscultation bilaterally Auscultation: Negative for rales, rhonchi or wheezes Cardio regular rate, regular rhythm, S1 normal heart sound, S2 normal heart sound, no murmurs, no rub and no gallops GI normal to inspection, nondistended, normoactive bowel sounds, soft to palpation, non-tender and non-distended Extremity no clubbing, cyanosis or edema Skin no rashes or lesions noted and skin turgor normal General Skin Exam: no breakdown Neuro oriented x3, CN's II-XII intact bilaterally, no focal motor deficits and no sensory deficits noted Sensorium / Orientation: awake and alert Speech: speech normal Psych thought process normal and affect normal Assessment & Plan Assessment/Plan (1) Acute on chronic anemia: PLAN: 1. Acute on chronic iron deficiency anemia-etiology unclear at this point, patient will undergo endoscopy and colonoscopy on Tuesday, she will remain on clear liquids, general surgery is participating in her care, I will give the patient a transfusion of Venofer tomorrow #2 coronary artery disease-cardiology is participating in her care, no intervention is planned at this time #3 type 2 diabetes #4 aortic valvular disease-aortic stenosis-patient was evaluated for possible TAVR recently but was not felt to be in need of this procedure at this time. This is according to the patient. #5 essential hypertension #6 hyperlipidemia Charges/Coding Visit Charges Inpatient E&M: 21285 Subs Hosp L2
[2021-01-04] MEDS: 0.9% Saline Lock 10 ML Syringe IV ×2 (20:23→20:47)
[2021-01-04] MEDS: Ezetimibe 10 MG Tablet PO (20:33)
[2021-01-05] VITALS (14 sets, daily range): BP systolic 123–165; BP diastolic 45–69; PULSE 74–88; RESP 16–18; TEMP 36.2–37.1; O2SAT 92–99; BMI 29.5
--- NOTE | 2021-01-05 | COLBX_PTH ---
PATIENT: SAMMY SOLOMON LOC: [facility] U#:[id number] AGE/SX: 80/F ROOM: [facility] RE01/01/[address]: Dr. Sanjay Avalos DO : 1940 BED: 1 DIS: 01/05/2021 SPEC #: [id number] RECD: 01/05/21 15:51 STATUS: JANIS REAly #: [id number] KEMAL: 01/05/21 00:[address]: Gabriel Villa DEPT: SURGICAL PATHOLOGY RECD BY: Hao Montes ENTERED: 01/06/21 12:12 SP TYPE: COLON BX OTHR DR: MD Dr. Kaelyn Kay MD Dr. Kathleen Fearon, DO Dr. Sanjay Mcnair Dr., Tissues: Rectum, NOS Procedures: Surgery Specimen Level IV Comments: @ Ordering doctor for SUIV edited from to @ kenneth ARORA at 01/06/21 1419 @ Submitting doctor edited from to @ by MAITE at 01/06/21 1419 HEADER OPERATION: Colonoscopy, EGD ([place]) PRE-OP DIAGNOSIS: Symptomatic anemia TISSUE SUBMITTED: Rectal polyp MICROSCOPIC DIAGNOSIS Rectal polyp, biopsy: Tubulovillous adenoma. AM:bruno 01/07/2021 MICROSCOPIC DESCRIPTION Slides are reviewed. GROSS DESCRIPTION Received in fixative is one container labeled with the patient's name and designated rectal polyp. The specimen consists of one irregular fragment of light bah soft tissue that measures 0.5 x 0.5 x 0.2 cm. The specimen is totally submitted in one cassette. / AM:bruno 01/06/2021 TC:5 [facility]: [id number]
--- NOTE | 2021-01-05 04:45 | EKG12_ITS ---
Test Reason : AM EKG Blood Pressure : / mmHG Vent. Rate : 085 BPM Atrial Rate : 085 BPM P-R Int : 166 ms QRS Dur : 122 ms QT Int : 390 ms P-R-T Axes : 066 -07 151 degrees QTc Int : 464 ms Normal sinus rhythm Left bundle branch block Abnormal ECG When compared with ECG of 01-JAN-2021 17:37, MANUAL COMPARISON REQUIRED, DATA IS UNCONFIRMED Confirmed by FAYE DELGADILLO, KAREN ([id number]), editor book CHRISTIN BARTHOLOMEW ([id number]) on 01/06/2021 10:50:46 AM Referred By: TAE Confirmed By:KAREN MCKINNEY MD
--- NOTE | 2021-01-05 05:55 | EKG12_ITS ---
Test Reason : Blood Pressure : / mmHG Vent. Rate : 084 BPM Atrial Rate : 084 BPM P-R Int : 154 ms QRS Dur : 118 ms QT Int : 388 ms P-R-T Axes : 071 027 166 degrees QTc Int : 458 ms Normal sinus rhythm Left ventricular hypertrophy with QRS widening and repolarization abnormality Abnormal ECG Confirmed by JOSE MANUEL DELGADILLO, CRISTIAN ([id number]), mapping editor CHRISTIN BARTHOLOMEW ([id number]) on 01/05/2021 1:03:17 PM Referred By: ZEE Confirmed By:CRISTIAN RICHARD MD
--- NOTE | 2021-01-05 07:41 | PCM.PN.SRG ---
Subjective Subjective Patient did have some ongoing black stools over the weekend and required transfusion yesterday. She is continues to complain of right-sided abdominal pain Objective Data Objective Data Vital Signs: Vital Signs Temp Pulse Resp BP Pulse Ox 98.1 F 88 16 144/55 H 93 01/05/21 07:37 01/05/21 07:37 01/05/21 07:37 01/05/21 07:37 01/05/21 07:37 Oxygen Flow Rate (L/min) 2 Oxygen Delivery Method Room Air Weight: 161 lb 9.581 oz Body Mass Index (BMI) 29.5 Intake & Output: Intake and Output for Last 24 Hours 01/03/21 01/04/21 01/05/21 23:59 23:59 23:59 Intake Total 1530 / 1530 490 / 1690 1200 / 1200 Output Total 3075 / 3075 750 / 750 Balance -1545 / -1545 -260 / 940 1200 / 1200 Lab / Micro Data Result Diagrams: 01/04/21 05:25 01/02/21 05:24 Micro: Microbiology 01/01/21 10:22 Nasal Secretion SARS-CoV-2 Antigen (Rapid) - Final Rhythm Strip Rhythm Strip: Sinus Rhythm Rate: 84 Ectopy: None Physical Exam Const oriented x3 and no apparent distress Resp normal respiratory effort Cardio regular rhythm GI soft to palpation Palpation: tender RUQ Assessment & Plan Assessment/Plan (1) Symptomatic anemia: PLAN: Patient required transfusion over the weekend and still continues to have some black stools. She has been continued on her Plavix but the other antiplatelet agents have been stopped. Plan for EGD and colonoscopy at 1030 this morning. I explained endoscopy in detail to the patient. I explained the risks including but not limited to stroke or heart attack with anesthesia, perforation of the GI tract, bleeding, infection. I explained that any of these could necessitate further emergency surgery. The patient understands and all questions were answered sufficiently. The patient wishes to proceed with procedure. Gabriel Villa MD Pager: [facility] [address] [place] [address], [address] [place] [address] Office:
[2021-01-05 08:01] LABS: Absolute Neutrophil Count 8.2 X10^3/uL (2.0-7.7); Basophil# 0.03 X10^3/uL; Basophil% 0.3 % (0-1); Eosinophils% 2.9 % (0-5); Hematocrit 31.3 % (37-47); Hemoglobin 9.9 g/dL (12.0-15.0); Lymphocyte % 8.7 % (19-41); Mean Corp Hgb Conc 31.6 g/dL (32-36); Mean Corpuscular Hgb 28.4 pg (27.0-32.0); Mean Corpuscular Volume 89.9 fL (81-99); Mean Platelet Vol. 9.9 fl (6.2-12.0); Monocyte# 0.81 X10^3/uL; Monocyte% 7.9 % (0-10); NRBC Flagged by Analyzer 0 % (0-5); Neutrophil # 8.17 X10^3/uL (2.7-7.7); Neutrophil % 79.4 % (47-70); Platelet Count 184 K/mm3 (150-450); RBC Distribution Width CV 17.6 % (11.6-14.6); RBC Distribution Width SD 52.7 fl (35.1-43.9); Red Blood Count 3.48 M/mm3 (4.2-5.4); White Blood Count 10.3 K/mm3 (4.4-11.0)
[2021-01-05 08:18] LABS: Hemoglobin A1c 5.6 % (3.8-5.6)
[2021-01-05 08:23] LABS: Anion Gap 8 (5-15); BUN 12 mg/dL (7-18); BUN/Creat Ratio 14.9 RATIO (10-20); Calcium,Total 8.1 mg/dL (8.5-10.1); Chloride 107 mmol/L (98-107); Creatinine, Serum 0.81 mg/dL (0.55-1.02); EST Glomerular Filtration Rate 72 mL/min (>60); Est Glom Filt Rate - Afr Amer 88 mL/min (>60); Estimated Creatinine Clearance 43.81 ml/min; Glucose 102 mg/dL (74-106); Potassium 3.5 mmol/L (3.5-5.1); Sodium Level 143 mmol/L (136-145)
[2021-01-05] MEDS: Metoprolol Tartrate 100 MG Tablet PO (08:28)
[2021-01-05 08:30] LABS: International Normalized Ratio 1.3
[2021-01-05 08:31] LABS: Partial Thromboplast Time 33.2 Seconds (24.1-36.2)
[2021-01-05] MEDS: Lactated Ringers 1,000 ML 100 ML IV (10:00)
--- NOTE | 2021-01-05 10:55 | OP.EGD_ITS ---
Patient Name: Ivanna Swann Procedure Date: 01/05/2021 10:11 AM Date of : 1940 Age: 80 Procedure: Upper GI endoscopy Indications: Iron deficiency anemia Providers: Gabriel Villa MD Medicines: Monitored Anesthesia Care Patient Profile: This is an 80 year old female. Refer to note in patient chart for documentation of history and physical. Complications: No immediate complications. Procedure: Pre-Anesthesia Assessment: - Prior to the procedure, a History and Physical was performed, and patient medications and allergies were reviewed. The patient's tolerance of previous anesthesia was also reviewed. The risks and benefits of the procedure and the sedation options and risks were discussed with the patient. All questions were answered, and informed consent was obtained. Prior Anticoagulants: The patient has taken Plavix (clopidogrel), last dose was 1 day prior to procedure. After reviewing the risks and benefits, the patient was deemed in satisfactory condition to undergo the procedure. After obtaining informed consent, the endoscope was passed under direct vision. Throughout the procedure, the patient's blood pressure, pulse, and oxygen saturations were monitored continuously. The gastroscope was introduced through the mouth, and advanced to the fourth part of duodenum. The upper GI endoscopy was accomplished without difficulty. The patient tolerated the procedure well. Scope In: 10:28:58 AM Scope Out: 10:31:48 AM Total Procedure Duration Time 0 hours 2 minutes 50 seconds Findings: The esophagus was normal. The stomach was normal. The examined duodenum was normal. Impression: - Normal esophagus. - Normal stomach. - Normal examined duodenum. - No specimens collected. Recommendation: - Return patient to [facility] for [facility] care. - Advance diet as tolerated. - Continue present medications. Procedure Code(s): --- Professional --- 91733, Esophagogastroduodenoscopy, flexible, transoral; diagnostic, including collection of specimen(s) by brushing or washing, when performed (separate procedure) Diagnosis Code(s): --- Professional --- D50.9, Iron deficiency anemia, unspecified CPT copyright 2017 [employer]. All rights reserved. The codes documented in this report are preliminary and upon adjunct philosophy faculty review may be revised to meet current compliance requirements. Gabriel Villa MD 01/05/2021 10:54:16 AM This report has been signed electronically. Number of Addenda: 0 Note Initiated On: 01/05/2021 10:11 AM
--- NOTE | 2021-01-05 10:55 | OP.CCLET_ITS ---
01/05/2021 Daisha Ramirez [address] [place] [address] Re : Upper GI endoscopy procedure for Ivanna Bruce Dear Dr. Ramirez This procedure was performed on Tuesday, January 05, 2021. My impressions and recommendations are as follows: Impressions : - Normal esophagus. - Normal stomach. - Normal examined duodenum. - No specimens collected. Recommendations : - Return patient to [facility] for ongoing care. - Advance diet as tolerated. - Continue present medications. My findings are described in the full procedure note, which is enclosed. If I can be of further assistance, please feel free to contact me at Doctor phone number(s): , Work: . Sincerely, Gabriel Villa MD 01/05/2021 10:54:16 AM This report has been signed electronically.
--- NOTE | 2021-01-05 11:00 | OP.COLON_ITS ---
Patient Name: Ivanna Swann Procedure Date: 01/05/2021 10:34 AM Date of : 1940 Age: 80 Procedure: Colonoscopy Indications: Hematochezia, Iron deficiency anemia Providers: Gabriel Villa MD Medicines: Monitored Anesthesia Care Patient Profile: This is an 80 year old female. Refer to note in patient chart for documentation of history and physical. Last Colonoscopy: within the past 3 years. Complications: No immediate complications. Procedure: Pre-Anesthesia Assessment: - Prior to the procedure, a History and Physical was performed, and patient medications and allergies were reviewed. The patient's tolerance of previous anesthesia was also reviewed. The risks and benefits of the procedure and the sedation options and risks were discussed with the patient. All questions were answered, and informed consent was obtained. Prior Anticoagulants: The patient has taken Plavix (clopidogrel), last dose was 1 day prior to procedure. After reviewing the risks and benefits, the patient was deemed in satisfactory condition to undergo the procedure. After I obtained informed consent, the scope was passed under direct vision. Throughout the procedure, the patient's blood pressure, pulse, and oxygen saturations were monitored continuously. The pediatric colonoscope was introduced through the anus and advanced to the cecum, identified by appendiceal orifice and ileocecal valve. Scope In: 10:34:42 AM Scope Withdrawal Time 0 hours 3 minutes 51 seconds Scope Out: 10:47:52 AM Total Procedure Duration Time 0 hours 13 minutes 10 seconds Findings: A polyp was found in the rectum. The polyp was removed with a hot snare. Resection and retrieval were complete. The exam was otherwise without abnormality on direct and retroflexion views. Impression: - One polyp in the rectum, removed with a hot snare. Resected and retrieved. - The examination was otherwise normal on direct and retroflexion views. Recommendation: - Return patient [facility] for ongoing care. - Advance diet as tolerated. - Continue present medications. - Await pathology results. - Repeat colonoscopy for surveillance based on pathology results. Procedure Code(s): --- Professional --- 85671, Colonoscopy, flexible; with removal of tumor(s), polyp(s), or other lesion(s) by snare technique Diagnosis Code(s): --- Professional --- K62.1, Rectal polyp K92.1, Melena (includes Hematochezia) D50.9, Iron deficiency anemia, unspecified CPT copyright 2017 [employer]. All rights reserved. The codes documented in this report are preliminary and upon tire mounter review may be revised to meet current compliance requirements. Gabriel Villa MD 01/05/2021 10:59:58 AM This report has been signed electronically. Number of Addenda: 0 Note Initiated On: 01/05/2021 10:34 AM
--- NOTE | 2021-01-05 11:01 | OP.CCLET_ITS ---
01/05/2021 Daisha Ramirez [address] [place] [address] Re : Colonoscopy procedure for Ivanna Swann Dear Dr. Ramirez This procedure was performed on Tuesday, January 05, 2021. My impressions and recommendations are as follows: Impressions : - One polyp in the rectum, removed with a hot snare. Resected and retrieved. - The examination was otherwise normal on direct and retroflexion views. Recommendations : - Return patient to [facility] for ongoing care. - Advance diet as tolerated. - Continue present medications. - Await pathology results. - Repeat colonoscopy for surveillance based on pathology results. My findings are described in the full procedure note, which is enclosed. If I can be of further assistance, please feel free to contact me at Doctor phone number(s): , Work: . Sincerely, Gabriel Villa MD 01/05/2021 10:59:58 AM This report has been signed electronically.
[2021-01-05] MEDS: Ascorbic Acid 500 MG Tablet PO (15:05)
--- NOTE | 2021-01-05 16:14 | NURSING ---
This RN reviewed SN charting
--- NOTE | 2021-01-05 17:17 | DCINST_ITS ---
Discharge Instructions Diet Discharge Diet: No restrictions Activity Discharge Activity: Return to Normal Activity Weight Bearing Status: Full weight bearing Follow Up Care Test Results: Test results from this visit will be discussed in further detail at your follow-up appointment, if applicable. Discharge Plan Admission Admit Date/Time: 01/01/21 15:07 Primary Reason for Your Visit: anemia Attending Provider: Sanjay Avalos Primary Care Provider: Daisha Ramirez Consulting Providers: Gabriel Villa ; Kaelyn Landers Instructions Patient Instructions: ED Chest Pain, Noncardiac Additional Instructions / Restrictions: Recommend follow-up with fur repairer (Dr. Villafuerte) for further work-up Discharge Orders/Prescriptions Prescriptions: New aspirin 81 mg tablet,delayed release (DR/EC) 81 mg PO DAILY Qty: 1 RF: 0 Continued nitroglycerin 0.4 mg tablet, sublingual 0.4 mg SUBLINGUAL Q5M PRN (Reason: Chest Pain) Qty: 25 RF: 1 metoprolol tartrate 100 mg tablet 100 mg PO BID Qty: 180 RF: 3 clopidogrel [Plavix] 75 mg tablet 75 mg PO DAILY RF: 0 pantoprazole 40 MG tablet 40 mg PO BID RF: 0 ezetimibe 10 MG tablet 10 mg PO QHS RF: 0 acetaminophen 500 MG tablet 500 mg PO DAILY PRN PRN (Reason: Pain Or Fever) RF: 0 niacin (inositol niacinate) 500 MG capsule 1,000 mg PO DAILY RF: 0 ascorbic acid (vitamin C) 500 MG capsule 500 mg PO DAILY RF: 0 furosemide [Lasix] 20 mg Tablet 20 mg DAILY PRN (Reason: Edema) RF: 0 Changed ferrous sulfate 325 MG tablet 325 mg PO TID Qty: 0 RF: 0 Discontinued cilostazol 50 MG tablet 50 mg PO BIDAC RF: 0 aspirin 81 MG tablet 81 mg PO BID RF: 0 Referrals / Follow Up: Daisha Ramirez, [Primary Care Provider] - Within 1 Week (Have Dr. Ramirez schedule you an appointment with Dr. Villafuerte (hematology)) Disposition Disposition (needs filled in before D/C Order can be placed): Home, Self Care
--- NOTE | 2021-01-05 20:36 | DS.PCM_ITS ---
Providers Date of Admission: 01/01/21 Date of Discharge: 01/05/21 Primary Care Physician: Dr. Daisha Ramirez, Consultations 01/01/21 16:42 Consult: General Surgery Routine Consulting Provider: Gabriel Villa Reason for Consult: Anemia with recurrent transfusions--> needs cscope, had EGD 03/2019 EMERGENT Consult: No Notified: Yes Date Notified: 01/01/21 Time Notified: 17:19 Method of Notification: Text 01/01/21 18:01 Consult: Cardiology Routine Consulting Provider: Kaelyn Landers Reason for Consult: CP EMERGENT Consult: No Notified: Yes Date Notified: 01/01/21 Time Notified: 18:01 Method of Notification: Verbal Reason For Visit: SEVERE ANEMIA Diagnosis Discharge Diagnosis (1) Symptomatic anemia: Status: Acute Code(s): D64.9 - Anemia, unspecified Plan: Discharge diagnosis: #1 acute on chronic iron deficiency anemia-etiology unclear #2 coronary artery disease #3 type 2 diabetes #4 aortic valvular disease-aortic stenosis #5 essential hypertension #6 hyperlipidemia #7 chest pain-etiology unclear Medications at Discharge Home Medications ezetimibe 10 mg PO QHS 09/01/13 pantoprazole 40 mg PO BID 09/01/13 metoprolol tartrate 100 mg tablet 100 mg PO BID #180 tab 10/05/18 nitroglycerin 0.4 mg sublingual tablet 0.4 mg SUBLINGUAL Q5M PRN #25 tab 10/05/18 acetaminophen 500 mg PO DAILY PRN PRN 04/12/19 niacin (inositol niacinate) 1,000 mg PO DAILY 04/12/19 clopidogrel 75 mg tablet 75 mg PO DAILY 11/22/19 ascorbic acid (vitamin C) 500 mg PO DAILY 05/14/20 furosemide [Lasix] 20 mg DAILY PRN 12/15/20 aspirin 81 mg PO DAILY #1 tab 01/05/21 ferrous sulfate 325 mg PO TID #0 tab 01/05/21 Hospital Course Operations None Procedures Blood transfusion, Colonoscopy and EGD Summary of Care Provided Minutes Spent on Discharge: 33 Hospital Course: This 80-year-old white female was seen in the emergency room at [facility] with complaints of lightheadedness and generalized weakness, she also complained of some intermittent chest discomfort, work-up in the emergency room revealed the patient to be anemic with a hemoglobin of 6.5, troponin was unremarkable. Chest x-ray picked up no abnormality. Patient was admitted to PCU, she was seen in consultation by cardiology, serial cardiac isoenzymes were obtained and these did not elevate. Patient was seen in consultation by general surgery who recommended an EGD and a colonoscopy, patient was given blood transfusions, serum iron revealed that the patient was iron deficient. Patient had an ongoing history of iron deficiency anemia and had received outpatient blood transfusions. Patient underwent an EGD and a colonoscopy which showed no evidence for the patient's iron deficiency anemia, she was given IV iron infusions while in the hospital. On 01/05/2021, patient was seen and examined: On examination she appeared in good health and spirits, she does not appear to be in any distress. Vital signs as documented. Skin warm and dry and without overt rashes. Neck without JVD, thyroid appears normal, trachea is midline, neck is supple. Lungs clear, normal air movement was noted. Heart exam notable for regular rhythm, normal sounds and absence of murmurs, rubs or gallops. Abdomen unremarkable and without evidence of organomegaly, masses, or abdominal aortic enlargement, bowel sounds are present in all 4 quadrants, no abdominal tenderness was noted. Extremities nonedematous, no cyanosis was noted, no clubbing was noted. Neuro: Cranial nerves II through XII are grossly intact, no focal motor deficits were noted, sensation to light touch and pinprick is intact, motor exam 5/5 throughout. Psych: Patient is alert and oriented x3, she does not appear anxious or depressed, she does not appear agitated. Patient appears stable for discharge on 01/05/2021. Weight / BMI Weight Weight: 73.3 kg Body Mass Index (BMI) 29.5 ABG / Lab / Microbiology Data Result Diagrams: 01/05/21 07:38 01/05/21 07:38 Laboratory: Laboratory Results - last 24 hr 01/05/21 07:38: WBC 10.3, RBC 3.48 L, Hgb 9.9 L, Hct 31.3 L, MCV 89.9, MCH 28.4, MCHC 31.6 L, RDW Std Deviation 52.7 H, RDW Coeff of Velasquez 17.6 H, Plt Count 184, MPV 9.9, Immature Gran % (Auto) 0.800, Neut % (Auto) 79.4 H, Lymph % (Auto) 8.7 L, [place] % (Auto) 7.9, Eos % (Auto) 2.9, Baso % (Auto) 0.3, Absolute Neuts (auto) 8.2 H, Absolute Lymphs (auto) 0.90, Nucleated RBC % 0 01/05/21 07:38: PT 15.0 H, INR 1.3, APTT 33.2 01/05/21 07:38: Sodium 143, Potassium 3.5, Chloride 107, Carbon Dioxide 28.0, Anion Gap 8, BUN 12, Creatinine 0.81, Estim Creat Clear Calc 43.81, Est GFR (MDRD) Af Amer 88, Est GFR (MDRD) Non-Af 72, BUN/Creatinine Ratio 14.9, Glucose 102, Calcium 8.1 L 01/05/21 07:38: Hemoglobin A1c 5.6 Microbiology: Microbiology 01/01/21 10:22 Nasal Secretion SARS-CoV-2 Antigen (Rapid) - Final D/C Instructions Discharge Diet: No restrictions Weight Bearing Status: Full weight bearing Meaningful Use Info Meaningful Use Diagnoses (Choose all that apply): None applicable Discharge Plan Admission Admit Date/Time: 01/01/21 15:07 Primary Reason for Your Visit: anemia Attending Provider: Sanjay Avalos Primary Care Provider: Daisha Ramirez Consulting Providers: Gabriel Villa ; Kaelyn Landers Instructions Patient Instructions: ED Chest Pain, Noncardiac Additional Instructions / Restrictions: Recommend follow-up with beater dumper (Dr. Villafuerte) for further work-up Discharge Orders/Prescriptions Prescriptions: New aspirin 81 mg tablet,delayed release (DR/EC) 81 mg PO DAILY Qty: 1 RF: 0 Continued nitroglycerin 0.4 mg tablet, sublingual 0.4 mg SUBLINGUAL Q5M PRN (Reason: Chest Pain) Qty: 25 RF: 1 metoprolol tartrate 100 mg tablet 100 mg PO BID Qty: 180 RF: 3 clopidogrel [Plavix] 75 mg tablet 75 mg PO DAILY RF: 0 pantoprazole 40 MG tablet 40 mg PO BID RF: 0 ezetimibe 10 MG tablet 10 mg PO QHS RF: 0 acetaminophen 500 MG tablet 500 mg PO DAILY PRN PRN (Reason: Pain Or Fever) RF: 0 niacin (inositol niacinate) 500 MG capsule 1,000 mg PO DAILY RF: 0 ascorbic acid (vitamin C) 500 MG capsule 500 mg PO DAILY RF: 0 furosemide [Lasix] 20 mg Tablet 20 mg DAILY PRN (Reason: Edema) RF: 0 Changed ferrous sulfate 325 MG tablet 325 mg PO TID Qty: 0 RF: 0 Discontinued cilostazol 50 MG tablet 50 mg PO BIDAC RF: 0 aspirin 81 MG tablet 81 mg PO BID RF: 0 Referrals / Follow Up: Daisha Ramirez DO [Primary Care Provider] - Within 1 Week (Have Dr. Ramirez schedule you an appointment with Dr. Villafuerte (hematology)) Disposition Disposition (needs filled in before D/C Order can be placed): Home, Self Care Charges/Coding Visit Charges Inpatient E&M: 18251 Disch Hosp
--- NOTE | 2021-01-06 13:35 | CASEMGMT ---
[facility] Discharge Follow-up Phone Call: JUDE: Cam Strata: 3 Call Date: 01/06/21 Discharge Date: 01/05/21 Time of Call: 1333 Duration: 3 min Admitting Diagnosis: severe anemia [facility] completed follow-up phone call after recent hospitalization. Patient states that she is doing well. Patient had no questions or concern regarding discharge instructions. Patient is aware to schedule follow-up appt. Patient had no further questions at this time.
== END 2021-01-05 18:36 | disposition home or self-care (01) | DRG 812 ==
LOC: ED 11:45 → PCU 15:01
PROVIDERS: Anesthesiology; Surgery; Admitting Provider Internal Medicine; Emergency Provider Emergency Medicine; PCP Internal Medicine; Visit Provider Internal Medicine
PROC: 0DJD8ZZ Inspection of Lower Intestinal Tract, Via Natural or Artificial Opening Endoscopic (ICD-10-PCS; CPT 45378; principal; 2021-01-05 10:25)
DX: D50.9 Iron deficiency anemia, unspecified (principal); I24.1 Dressler's syndrome; I25.10 Atherosclerotic heart disease of native coronary artery without angina pectoris; I35.0 Nonrheumatic aortic (valve) stenosis; K62.1 Rectal polyp; I10 Essential (primary) hypertension; E78.5 Hyperlipidemia, unspecified; K21.9 Gastro-esophageal reflux disease without esophagitis; I44.7 Left bundle-branch block, unspecified; R07.9 Chest pain, unspecified; I48.0 Paroxysmal atrial fibrillation; G47.33 Obstructive sleep apnea (adult) (pediatric); E11.9 Type 2 diabetes mellitus without complications; L40.9 Psoriasis, unspecified; Z95.1 Presence of aortocoronary bypass graft; Z87.11 Personal history of peptic ulcer disease; Z95.3 Presence of xenogenic heart valve; Z86.73 Personal history of transient ischemic attack (TIA), and cerebral infarction without residual deficits; Z79.02 Long term (current) use of antithrombotics/antiplatelets; Z79.82 Long term (current) use of aspirin; Z82.49 Family history of ischemic heart disease and other diseases of the circulatory system; Z88.2 Allergy status to sulfonamides; Z90.11 Acquired absence of right breast and nipple; Z90.12 Acquired absence of left breast and nipple; Z98.51 Tubal ligation status
CPT/HCPCS: 36415; 71045; 80048; 80053; 82607; 82728; 82746; 83036; 83540; 83550; 83735; 84100; 84484; 85014; 85018; 85025; 85045; 85610; 85730; 86850; 86900; 86901; 86920; 86922; 87426; 88305; 93005; 93306; 99251; 99285; J7040; J7050; J7120; P9016; A4216; G0463; J2405; J2916; J3490

== ENCOUNTER → 2021-02-13 | Outpatient (CLI) | payer MEDICARE, SELFPAY ==
[2021-02-13 10:08] LABS: Absolute Lymphocyte Count 1.07 X10^3/uL (0.83-4.51); Absolute Neutrophil Count 7.2 X10^3/uL (2.0-7.7); Basophil# 0.04 X10^3/uL; Basophil% 0.4 % (0-1); Eosinophils% 4.2 % (0-5); Hematocrit 26.8 % (37-47); Hemoglobin 8.1 g/dL (12.0-15.0); Lymphocyte # 1.07 X10^3/ul (0.83-4.51); Lymphocyte % 11.2 % (19-41); Mean Corp Hgb Conc 30.2 g/dL (32-36); Mean Corpuscular Hgb 30.5 pg (27.0-32.0); Mean Corpuscular Volume 100.8 fL (81-99); Mean Platelet Vol. 10.5 fl (6.2-12.0); Monocyte# 0.75 X10^3/uL; Monocyte% 7.9 % (0-10); NRBC Flagged by Analyzer 0.4 % (0-5); Neutrophil # 7.15 X10^3/uL (2.7-7.7); POSITIVE MORPHOLOGY YES; Platelet Count 282 K/mm3 (150-450); RBC Distribution Width CV 19.1 % (11.6-14.6); Red Blood Count 2.66 M/mm3 (4.2-5.4); White Blood Count 9.5 K/mm3 (4.4-11.0)
[2021-02-13 10:11] LABS: Differential Indicated SCAN CRITERIA MET
[2021-02-13 10:38] LABS: Anisocytosis 1+; Differential Comment SCANNED
== END | disposition home or self-care (01) ==
LOC: LABSPEC 09:51
PROVIDERS: PCP Internal Medicine; Visit Provider Internal Medicine
DX: D50.0 Iron deficiency anemia secondary to blood loss (chronic) (principal)
CPT/HCPCS: 85025

== ENCOUNTER 2021-02-20 09:21 | Inpatient (IN) | payer MEDICARE, SELFPAY ==
[2021-02-20] VITALS (30 sets, daily range): BP systolic 70–168; BP diastolic 29–123; PULSE 60–95; RESP 14–19; TEMP 35.7–36.9; O2SAT 92–100; BMI 30.1; BMI 28.5
--- NOTE | 2021-02-20 09:59 | US_ITS ---
STUDY: ABDOMINAL ULTRASOUND - RIGHT UPPER QUADRANT REASON FOR VISIT: Female, 80 years old abdominal pain. TECHNIQUE: Ultrasound evaluation of the right upper quadrant was performed with real-time and static odonnell-scale imaging. TECHNICAL QUALITY: Adequate. COMPARISON: None. FINDINGS: Liver: The liver measures 16.2 cm. There is normal echogenicity of the liver. The bile ducts are within normal limits. There is hepatic color flow. The direction of portal flow is hepatopetal. There is no demonstrated mass lesion. Gallbladder: There is a contracted gallbladder. The gallbladder wall measures 2.2 mm. There is a negative sonographic Smith''s sign. There is no pericholecystic fluid. There are multiple echogenic structures within the gallbladder, consistent with multiple gallstones. Common Bile Duct (C.B.D.): The common bile duct measures 5.8 mm. Pancreas: Normal size of the head, body and tail of the pancreas. There is increased echogenicity of the pancreas. There is no demonstrated pancreatic mass or cyst. Right Kidney: Normal size of the right kidney. The right kidney measures 9.6 cm x 4.3 cm x 3.4 cm. Normal renal cortex. The right cortex measures 0.94 cm. There is no demonstrated renal mass or cyst. There is no right hydronephrosis. US/Gallbladder IMPRESSION: Multiple gallstones. Partially contracted gallbladder. Electronically Signed: Manolo Sierra MD at 11:42 EDT , Service support ,
--- NOTE | 2021-02-20 10:00 | EKG12_ITS ---
Test Reason : WEAKNESS Blood Pressure : / mmHG Vent. Rate : 063 BPM Atrial Rate : 063 BPM P-R Int : 156 ms QRS Dur : 112 ms QT Int : 432 ms P-R-T Axes : 061 000 138 degrees QTc Int : 442 ms Normal sinus rhythm Incomplete left bundle branch block Abnormal ECG Confirmed by JOSE MANUEL DELGADILLO, CRISTIAN ([id number]), material expeditor CHRISTIN BARTHOLOMEW ([id number]) on 02/24/2021 8:56:30 AM Referred By: RANDI Confirmed By:CRISTIAN RICHARD MD
--- NOTE | 2021-02-20 10:01 | EX.ED.DYSGE1 ---
HPI History of Present Illness Chief Complaint: Weakness Informant: patient and EMS Narrative Narrative: 80-year-old female states this morning around 430 she was awoken from her sleep and had a bowel movement. States shortly thereafter she had diarrhea with incontinence. She was on the commode for about 20 minutes no further diarrhea was had. She states that when she got up her right leg did not seem like it was working correctly. She began to feel very weak and eventually got herself cleaned up fed the cats and then called the ambulance. Patient has a long history of iron deficiency anemia superimposed on acute blood loss anemia which is from a presumed GI source though nothing has been found definitively. She has a history of peptic ulcer disease and is on PPI therapy. She saw hematology yesterday. Noted that her hemoglobin was 7.8. She notes that she recently saw her metallurgical analyst. She has been having pain right shoulder into the chest down into her abdomen. She felt that perhaps it could be related to her gallbladder as she tends to get discomfort with eating. [facility] Medical History Atherosclerotic heart disease of [place] coronary artery without angina pectoris Atypical chest pain Bilateral carotid artery stenosis Bilateral carotid bruits CAD (coronary artery disease) Carotid stenosis Jayson's syndrome Effusion, left knee Essential hypertension GERD (gastroesophageal reflux disease) History of left heart catheterization (LHC) (~07/14/20) HTN (hypertension) Iron deficiency anemia due to chronic blood loss Nonrheumatic aortic (valve) stenosis [place] (obstructive sleep apnea) Osteoarthritis Paroxysmal atrial fibrillation PND (post-nasal drip) Psoriasis Pure hypercholesterolemia Sleep disorder Sleep disorder breathing SOB (shortness of breath) on exertion TIA (transient ischemic attack) Tobacco abuse Type 2 diabetes mellitus Home Medications ezetimibe 10 mg PO QHS 09/01/13 [History Last Taken 04/11/19] pantoprazole 40 mg PO BID 09/01/13 [History Last Taken 04/12/19] metoprolol tartrate 100 mg tablet 100 mg PO BID #180 tab 10/05/18 [Rx Last Taken 04/12/19] nitroglycerin 0.4 mg sublingual tablet 0.4 mg SUBLINGUAL Q5M PRN #25 tab 10/05/18 [Rx Last Taken 04/12/19] acetaminophen 500 mg PO DAILY PRN PRN 04/12/19 [History Last Taken 04/08/19] niacin (inositol niacinate) 1,000 mg PO DAILY 04/12/19 [History Last Taken 04/12/19] clopidogrel 75 mg tablet 75 mg PO DAILY 11/22/19 [History Last Taken Unknown] ascorbic acid (vitamin C) 500 mg PO DAILY 05/14/20 [History Last Taken Unknown] furosemide [Lasix] 20 mg DAILY PRN 12/15/20 [History Last Taken Unknown] aspirin 81 mg PO DAILY #1 tab 01/05/21 [Rx Last Taken Unknown] ferrous sulfate 325 mg PO TID #0 tab 01/05/21 [Rx Last Taken Unknown] Allergy/AdvReac Type Severity Reaction Status Date / Time Sulfa (Sulfonamide Allergy Severe HEART Verified 02/19/21 14:41 Antibiotics) RACING Latex, Natural Rubber Allergy Rash, Verified 02/19/21 14:41 psioriasis amoxicillin [From Augmentin] AdvReac Nausea Verified 02/19/21 14:41 atorvastatin [From Lipitor] AdvReac Other Verified 02/19/21 14:41 clavulanic acid AdvReac Nausea Verified 02/19/21 14:41 [From Augmentin] Iodinated Contrast Media AdvReac Other Verified 02/19/21 14:41 [CONTRASTS] niacin AdvReac Other Verified 02/19/21 14:41 [From Niaspan Extended-Release] rosuvastatin [From Crestor] AdvReac Other Verified 02/19/21 14:41 turkey grease AdvReac Rash Uncoded 01/01/21 09:58 Family History Mother Heart disease Diabetes Father Heart disease Cancer Sister Cancer COPD (chronic obstructive pulmonary disease) Surgical History History of aortic valve replacement with bioprosthetic valve (~09/06/13) History of bilateral carotid endarterectomy History of coronary artery bypass surgery (~09/06/13) History of left mastectomy (~1998) History of right mastectomy (~1998) History of tubal ligation Social History household members: none housing: house Smoking Status: Former smoker how long ago did patient quit smokin second hand exposure: No alcohol intake: never substance use type: does not use caffeine: Yes Type: coffee Number of servings: 2 and tea what type of physical activity do you participate in: none franci/restoration: Christian seatbelt use: always do you feel safe at home: Yes ROS ROS ED Constitutional Constitutional ED: Denies chills, fever(s) or weight loss Eyes Eyes: Denies change in vision or diplopia ENT ENT ED: Denies ear pain, rhinorrhea or sore throat Cardiovascular Cardiovascular: Denies chest pain, orthopnea, palpitations or racing heartbeat Respiratory/Chest Respiratory/Chest: Denies cough, dyspnea or orthopnea Gastrointestinal Gastrointestinal: Reports abdominal pain and diarrhea; Denies nausea or vomiting Genitourinary Genitourinary ED: Denies dysuria, hematuria or urinary frequency Musculoskeletal Musculoskeletal: Denies arthralgias or myalgias Integumentary Denies abscess or rash Neurologic Neurologic: Denies headache(s) or weakness Psychiatric Psychiatric: Denies anxiety, depression, suicidal ideation or suicidal thoughts Endocrine Endocrinology: Denies polydipsia, polyphagia or polyuria Allergic/Immunologic Allergic/Immunologic ED: Denies mouth swelling, tongue swelling or urticaria EXAM Physical Exam Const Vital Signs: 02/20/21 09:26 02/20/21 09:29 02/20/21 09:32 Temperature 97.6 F L 97.6 F L Temperature Source Oral Oral Pulse Rate 70 67 Respiratory Rate 15 16 Respiratory Effort Normal Non-Labored Respiratory Pattern Normal Blood Pressure 114/40 L Blood Pressure Mean 64 Pulse Ox 95 98 Oxygen Delivery Method Room Air Room Air 02/20/21 10:29 02/20/21 11:58 02/20/21 12:00 Temperature 97.6 F L 97.6 F L Temperature Source Oral Oral Pulse Rate 71 71 71 Respiratory Rate 16 16 16 Respiratory Effort Respiratory Pattern Blood Pressure 120/55 L 123/47 H 123/47 H Blood Pressure Mean 76 72 72 Pulse Ox 98 99 99 Oxygen Delivery Method Room Air Room Air Room Air Positive well nourished and well developed General Appearance ED: well developed HEENT Reports normocephalic, head/scalp atraumatic, TM's clear and moist mucous membranes Negative for trauma Tympanic Membrane ED: Yes TM's clear Eyes PERRL and EOMs intact bilaterally Neck no lymphadenopathy, supple and no JVD Resp normal respiratory effort and clear to auscultation bilaterally Cardio regular rate, regular rhythm and no murmurs GI normal to inspection, nondistended, normoactive bowel sounds and non-tender Palpation: soft Back/Spine no CVA tenderness and normal ROM Lumbar Spine / Lower Back: Negative for lumbar spinal tenderness Extremity normal to inspection General Extremety ED: Negative for edema General Extremity: Negative for edema Neuro oriented x3 and CN's II-XII intact bilaterally Sensorium / Orientation: alert Motor Exam: strength 5/5 throughout Psych mental status grossly normal Mood & Affect: Negative for depressed or tearful Skin no rashes or lesions noted and no wounds MDM MDM MDM Narrative Medical decision making narrative: Hemoglobin returns at 5.8. Should be typed and crossed. Creatinine 1.0 with a BUN of 30. Gallbladder ultrasound shows cholelithiasis. Patient will need a blood transfusion of several units. Again this is been a chronic ongoing issue for her. She may need her gallbladder removed at some point but at this point does not appear to be acutely infected or obstructed. Lab Data Attestation: I reviewed the patient's lab results. Labs: Laboratory Results - last 24 hr 02/20/21 02/20/21 02/20/21 10:10 10:10 10:44 WBC 11.2 H RBC 1.89 L Hgb 5.8 L* Hct 19.6 L MCV 103.7 H MCH 30.7 MCHC 29.6 L RDW Std Deviation 71.5 H RDW Coeff of Velasquez 19.2 H Plt Count 233 MPV 9.4 Immature Gran % (Auto) 1.000 H Neut % (Auto) 85.8 H Lymph % (Auto) 6.9 L [place] % (Auto) 4.7 Eos % (Auto) 1.3 Baso % (Auto) 0.3 Absolute Neuts (auto) 9.6 H Absolute Lymphs (auto) 0.77 L Nucleated RBC % 0.2 Hypochromasia 1+ Anisocytosis 2+ Sodium 140 Potassium 4.6 Chloride 106 Carbon Dioxide 29.0 Anion Gap 5 BUN 30 H Creatinine 1.08 H Estim Creat Clear Calc 32.86 Est GFR (MDRD) Af Amer 63 Est GFR (MDRD) Non-Af 52 L BUN/Creatinine Ratio 27.8 H Glucose 130 H Calcium 8.2 L Total Bilirubin 0.50 AST 16 ALT 15 Alkaline Phosphatase 50 Total Protein 5.6 L Albumin 2.8 L Globulin 2.8 Albumin/Globulin Ratio 1.0 Lipase 101 Crossmatch See Detail Discharge Plan Dx/Rx/DC Orders Clinical Impression: Iron deficiency anemia due to chronic blood loss, Atherosclerotic heart disease of [place] coronary artery without angina pectoris, History of aortic valve replacement with bioprosthetic valve, Diarrhea, Near syncope, Cholelithiasis, Biliary colic Disposition Disposition: Acute Care Hospital [facility]
[2021-02-20 10:16] LABS: Absolute Lymphocyte Count 0.77 X10^3/uL (0.83-4.51); Absolute Neutrophil Count 9.6 X10^3/uL (2.0-7.7); Basophil# 0.03 X10^3/uL; Basophil% 0.3 % (0-1); Eosinophil# 0.15 X10^3/uL; Eosinophils% 1.3 % (0-5); Hematocrit 19.6 % (37-47); Hemoglobin 5.8 g/dL (12.0-15.0); Lymphocyte # 0.77 X10^3/ul (0.83-4.51); Lymphocyte % 6.9 % (19-41); Mean Corp Hgb Conc 29.6 g/dL (32-36); Mean Corpuscular Hgb 30.7 pg (27.0-32.0); Mean Corpuscular Volume 103.7 fL (81-99); Mean Platelet Vol. 9.4 fl (6.2-12.0); Monocyte# 0.53 X10^3/uL; Monocyte% 4.7 % (0-10); NRBC Flagged by Analyzer 0.2 % (0-5); Neutrophil # 9.64 X10^3/uL (2.7-7.7); Neutrophil % 85.8 % (47-70); POSITIVE COUNT YES; POSITIVE MORPHOLOGY YES; Platelet Count 233 K/mm3 (150-450); RBC Distribution Width CV 19.2 % (11.6-14.6); RBC Distribution Width SD 71.5 fl (35.1-43.9); Red Blood Count 1.89 M/mm3 (4.2-5.4); White Blood Count 11.2 K/mm3 (4.4-11.0)
[2021-02-20 10:20] LABS: Differential Indicated SCAN CRITERIA MET
[2021-02-20 10:38] LABS: Anisocytosis 2+; Hypochromasia 1+
[2021-02-20 10:42] LABS: AST(SGOT) 16 U/L (15-37); Alanine Aminotransfer ALT/SGPT 15 U/L (13-56); Albumin, Serum 2.8 g/dL (3.2-5.0); Alkaline Phosphatase 50 U/L (45-117); Anion Gap 5 (5-15); BUN 30 mg/dL (7-18); BUN/Creat Ratio 27.8 RATIO (10-20); Calcium,Total 8.2 mg/dL (8.5-10.1); Chloride 106 mmol/L (98-107); Creatinine, Serum 1.08 mg/dL (0.55-1.02); EST Glomerular Filtration Rate 52 mL/min (>60); Est Glom Filt Rate - Afr Amer 63 mL/min (>60); Estimated Creatinine Clearance 32.86 ml/min; Globulin 2.8 g/dL (2.2-4.2); Glucose 130 mg/dL (74-106); Lipase 101 U/L (73-393); Potassium 4.6 mmol/L (3.5-5.1); Protein, Total 5.6 g/dL (6.4-8.2); Sodium Level 140 mmol/L (136-145)
--- NOTE | 2021-02-20 14:00 | HP.PCM.HOS_ITS ---
Documented by User: Kyrie ROSA 02/20/21 14:39 HPI - General General Date of Admission: 02/20/21 HPI Narrative SAMMY SOLOMON is an 80 y/o female who presents to the ED at [facility] with a chief complaint of weakness and not feelign right. Patient reports that she awoke at 4:30 AM this morning from her sleep and had a bowel movement where she experienced diarrhea. After said bowel movement, patient relieved her cell from the commode and reported that her right leg seemed to not be working correctly at which point she began to feel very weak and called 911. Patient denies any weakness, tingling, facial droop or difficulty speaking. Of note, patient has a history of iron deficiency anemia for which she sees Dr. Potts. Of note, patient had an appointment w/ Dr. Potts yesterday and her hemoglobin was 7.8. Vital signs in the ED are stable and patient is afebrile. Also during a recent admission, patient had an EGD and colonoscopy on January 05, 2021 which revealed a rectal polyp that was excised, otherwise the exam was normal. Currently satting 98% on room air. CBC demonstrates significant anemia with a hemoglobin of 5.8. WBCs and platelets are within normal limits. BMP is unremarkable. Gallbladder results are ordered/pending. Patient was given IV PPI in the ED. [facility] Medical History Atherosclerotic heart disease of [place] coronary artery without angina pectoris Atypical chest pain Bilateral carotid artery stenosis Bilateral carotid bruits CAD (coronary artery disease) Carotid stenosis Jayson's syndrome Effusion, left knee Essential hypertension GERD (gastroesophageal reflux disease) History of left heart catheterization (LHC) (~07/14/20) HTN (hypertension) Iron deficiency anemia due to chronic blood loss Nonrheumatic aortic (valve) stenosis [place] (obstructive sleep apnea) Osteoarthritis Paroxysmal atrial fibrillation PND (post-nasal drip) Psoriasis Pure hypercholesterolemia Sleep disorder Sleep disorder breathing SOB (shortness of breath) on exertion TIA (transient ischemic attack) Tobacco abuse Type 2 diabetes mellitus Home Medications ezetimibe 10 mg PO QHS 09/01/13 [History Last Taken 02/19/21] pantoprazole 40 mg PO DAILY 09/01/13 [History Last Taken 02/19/21] metoprolol tartrate 100 mg tablet 100 mg PO BID #180 tab 10/05/18 [Rx Last Taken 02/19/21] nitroglycerin 0.4 mg sublingual tablet 0.4 mg SUBLINGUAL Q5M PRN #25 tab 9 [Rx Last Taken 04/12/19] acetaminophen 1,000 mg PO DAILY PRN PRN 04/12/19 [History Last Taken 02/19/21] niacin (inositol niacinate) 1,000 mg PO BID 04/12/19 [History Last Taken 02/19/21] clopidogrel 75 mg tablet 75 mg PO DAILY 11/22/19 [History Last Taken 02/19/21] furosemide [Lasix] 10 mg PO DAILY PRN 12/15/20 [History Last Taken Unknown] aspirin 81 mg PO DAILY #1 tab 01/05/21 [Rx Last Taken 02/19/21] ferrous sulfate 325 mg PO BID 02/20/21 [History Last Taken 02/19/21] levocetirizine [Xyzal] 5 mg PO QPM 02/20/21 [History Last Taken 02/19/21] Allergy/AdvReac Type Severity Reaction Status Date / Time Sulfa (Sulfonamide Allergy Severe HEART Verified 02/19/21 14:41 Antibiotics) RACING Latex, Natural Rubber Allergy Rash, Verified 02/19/21 14:41 psioriasis amoxicillin [From Augmentin] AdvReac Nausea Verified 02/19/21 14:41 atorvastatin [From Lipitor] AdvReac Other Verified 02/19/21 14:41 clavulanic acid AdvReac Nausea Verified 02/19/21 14:41 [From Augmentin] Iodinated Contrast Media AdvReac Other Verified 02/19/21 14:41 [CONTRASTS] niacin AdvReac Other Verified 02/19/21 14:41 [From Niaspan Extended-Release] rosuvastatin [From Crestor] AdvReac Other Verified 02/19/21 14:41 turkey grease AdvReac Rash Uncoded 01/01/21 09:58 Family History Mother Heart disease Diabetes Father Heart disease Cancer Sister Cancer COPD (chronic obstructive pulmonary disease) Surgical History History of aortic valve replacement with bioprosthetic valve (~09/06/13) History of bilateral carotid endarterectomy History of coronary artery bypass surgery (~09/06/13) History of left mastectomy (~1998) History of right mastectomy (~1998) History of tubal ligation Social History household members: none housing: house Smoking Status: Former smoker how long ago did patient quit smokin second hand exposure: No alcohol intake: never substance use type: does not use caffeine: Yes Type: coffee Number of servings: 2 and tea what type of physical activity do you participate in: none franci/zoroastrianism: Protestant seatbelt use: always do you feel safe at home: Yes ROS Constitutional Constitutional: Reports fatigue and weakness; Denies anorexia, change in weight, chills, fever(s), malaise, night sweats or other Eyes Eyes: Denies blurry vision, change in eye color, change in vision, discharge from eye(s), double vision, erythema, eye pain, loss of vision or other ENT HEENT: Denies abnormal hearing, dysphagia, ear pain, epistaxis, headache(s), hearing loss, nasal congestion, nasal discharge, post nasal drip, sinus pressure, sore throat or other Cardiovascular Cardiovascular: Denies chest pain, claudication, dyspnea on exertion, edema, lightheadedness, orthopnea, palpitations, paroxysmal nocturnal dyspnea, rapid heart rate, syncope or other Respiratory/Chest Respiratory/Chest: Denies cough, dyspnea, excessive phlegm production, hemoptysis, productive cough, shortness of breath at rest, shortness of breath with exertion, wheezing or other Gastrointestinal Gastrointestinal: Denies abdominal pain, coffee ground emesis, constipation, diarrhea, dyspepsia, hematemesis, hematochezia, loose stools, melena, nausea, vomiting or other Genitourinary Genitourinary: Denies burning urination, difficulty urinating, dysuria, hematuria, nocturia, urinary frequency, urinary hesitancy, urinary incontinence, urinary urgency or other Musculoskeletal Musculoskeletal: Denies arthralgias, back pain, joint pain, joint stiffness, joint swelling, myalgias, neck pain or other Neurologic Neurologic: Denies abnormal gait, abnormal speech, confusion, disequilibrium, dizziness, focal weakness, headache(s), numbness, paresthesias, seizure-like activity, seizures, syncope, tingling, tremor(s) or other Psychiatric Psychiatric: Denies anxiety, depression, homicidal ideation, suicidal ideation or other Endocrine Endocrinology: Denies change in body appearance, cold intolerance, excessive sweating, heat intolerance, polydipsia, polyuria or other Hematologic/Lymphatic Hematologic/Lymphatic: Denies anemia, easy bleeding, easy bruising, lymphadenopathy or other Allergic/Immunologic Allergic/Immunologic: Denies rhinitis, hives, eczemia, asthma or other Vital Signs Vital Signs Vital Signs: 02/20/21 09:26 02/20/21 09:29 02/20/21 09:32 Temperature 97.6 F L 97.6 F L Temperature Source Oral Oral Pulse Rate 70 67 Respiratory Rate 15 16 Respiratory Effort Normal Non-Labored Respiratory Pattern Normal Blood Pressure 114/40 L Blood Pressure Mean 64 Pulse Ox 95 98 Oxygen Delivery Method Room Air Room Air 02/20/21 10:29 02/20/21 11:58 02/20/21 12:00 Temperature 97.6 F L 97.6 F L Temperature Source Oral Oral Pulse Rate 71 71 71 Respiratory Rate 16 16 16 Respiratory Effort Respiratory Pattern Blood Pressure 120/55 L 123/47 H 123/47 H Blood Pressure Mean 76 72 72 Pulse Ox 98 99 99 Oxygen Delivery Method Room Air Room Air Room Air 02/20/21 13:07 Temperature 98.3 F Temperature Source Oral Pulse Rate 71 Respiratory Rate 16 Respiratory Effort Respiratory Pattern Blood Pressure 124/45 H Blood Pressure Mean 71 Pulse Ox 98 Oxygen Delivery Method Room Air Weight Weight: 164 lb 10.965 oz Body Mass Index (BMI) 30.1 Physical Exam Const alert, oriented x3 and no apparent distress General Appearance: cooperative HEENT normocephalic, head/scalp atraumatic and hearing grossly normal bilaterally Eyes PERRL, EOMs intact bilaterally and conjunctivae normal Neck no lymphadenopathy, supple and no JVD Resp normal respiratory effort, no retractions, no use of accessory muscles and clear to auscultation bilaterally Cardio regular rate, regular rhythm, no murmurs and no JVD GI normal to inspection, nondistended, normoactive bowel sounds, soft to palpation and non-tender Extremity normal to inspection, full ROM and no clubbing, cyanosis or edema Skin no rashes or lesions noted, no wounds, skin turgor normal and no jaundice Neuro CN's II-XII intact bilaterally Psych affect normal Results Lab / Micro Data Result Diagrams: 02/20/21 15:24 02/20/21 10:10 Labs: Laboratory Results - last 24 hr 02/20/21 10:10: WBC 11.2 H, RBC 1.89 L, Hgb 5.8 L*, Hct 19.6 L, MCV 103.7 H, MCH 30.7, MCHC 29.6 L, RDW Std Deviation 71.5 H, RDW Coeff of Velasquez 19.2 H, Plt Count 233, MPV 9.4, Immature Gran % (Auto) 1.000 H, Neut % (Auto) 85.8 H, Lymph % (Auto) 6.9 L, Crisp % (Auto) 4.7, Eos % (Auto) 1.3, Baso % (Auto) 0.3, Absolute Neuts (auto) 9.6 H, Absolute Lymphs (auto) 0.77 L, Nucleated RBC % 0.2, Hypoch romasia 1+, Anisocytosis 2+ 02/20/21 10:10: Sodium 140, Potassium 4.6, Chloride 106, Carbon Dioxide 29.0, Anion Gap 5, BUN 30 H, Creatinine 1.08 H, Estim Creat Clear Calc 32.86, Est GFR (MDRD) Af Amer 63, Est GFR (MDRD) Non-Af 52 L, BUN/Creatinine Ratio 27.8 H, Glucose 130 H, Calcium 8.2 L, Total Bilirubin 0.50, AST 16, ALT 15, Alkaline Phosphatase 50, Total Protein 5.6 L, Albumin 2.8 L, Globulin 2.8, Albumin/Globulin Ratio 1.0, Lipase 101 02/20/21 10:44: Blood Type A POSITIVE, Antibody Screen NEGATIVE, Crossmatch See Detail Assessment & Plan Assessment/Plan (1) Diarrhea: (2) Near syncope: (3) Acute on chronic anemia: PLAN: Patient is an 80-year-old female who presents to the ED at [facility] on 02/19/2021 with a chief complaint of generalized weakness. Patient will be admitted for management of acute on chronic anemia. 1) acute on chronic anemia Hemoglobin currently 5.8. Unclear etiology. Patient follows with Dr. Gan for management of iron deficiency anemia. Recent EGD and colonoscopy from 01/05/2021 only revealed a polyp which was excised however was overall unremarkable. Plan; admit to PCU, transfused 2 units of PRBCs, initiate IV PPI, GI consult ordered, gallbladder ultrasound ordered, case management eval ordered, PT/OT eval ordered, hold home aspirin and Plavix. 2) CAD status post left heart catheterization Hold aspirin and Plavix as above. Continue beta-mariah. 3) HTN Stable, continue beta-mariah. 4) DM2 Accu-Cheks with sliding scale insulin ordered. DVT prophylaxis - not indicated Patient seen by Kyrie Wilson PA-C, under the supervision of Dr. Gomes. Documented by User: Dr. Ramya Gomes MD 02/20/21 18:15 HPI - General General Date of Admission: 02/20/21 [facility] Medical History Atherosclerotic heart disease of [place] coronary artery without angina pectoris Atypical chest pain Bilateral carotid artery stenosis Bilateral carotid bruits CAD (coronary artery disease) Carotid stenosis Jayson's syndrome Effusion, left knee Essential hypertension GERD (gastroesophageal reflux disease) History of left heart catheterization (LHC) (~07/14/20) HTN (hypertension) Iron deficiency anemia due to chronic blood loss Nonrheumatic aortic (valve) stenosis [place] (obstructive sleep apnea) Osteoarthritis Paroxysmal atrial fibrillation PND (post-nasal drip) Psoriasis Pure hypercholesterolemia Sleep disorder Sleep disorder breathing SOB (shortness of breath) on exertion TIA (transient ischemic attack) Tobacco abuse Type 2 diabetes mellitus Home Medications ezetimibe 10 mg PO QHS 09/01/13 [History Last Taken 02/19/21] pantoprazole 40 mg PO DAILY 09/01/13 [History Last Taken 02/19/21] metoprolol tartrate 100 mg tablet 100 mg PO BID #180 tab 10/05/18 [Rx Last Taken 02/19/21] nitroglycerin 0.4 mg sublingual tablet 0.4 mg SUBLINGUAL Q5M PRN #25 tab 10/05/18 [Rx Last Taken 04/12/19] acetaminophen 1,000 mg PO DAILY PRN PRN 04/12/19 [History Last Taken 02/19/21] niacin (inositol niacinate) 1,000 mg PO BID 04/12/19 [History Last Taken 02/19/21] clopidogrel 75 mg tablet 75 mg PO DAILY 11/22/19 [History Last Taken 02/19/21] furosemide [Lasix] 10 mg PO DAILY PRN 12/15/20 [History Last Taken Unknown] aspirin 81 mg PO DAILY #1 tab 01/05/21 [Rx Last Taken 02/19/21] ferrous sulfate 325 mg PO BID 02/20/21 [History Last Taken 02/19/21] levocetirizine [Xyzal] 5 mg PO QPM 02/20/21 [History Last Taken 02/19/21] Allergy/AdvReac Type Severity Reaction Status Date / Time Sulfa (Sulfonamide Allergy Severe HEART Verified 02/19/21 14:41 Antibiotics) RACING Latex, Natural Rubber Allergy Rash, Verified 02/19/21 14:41 psioriasis amoxicillin [From Augmentin] AdvReac Nausea Verified 02/19/21 14:41 atorvastatin [From Lipitor] AdvReac Other Verified 02/19/21 14:41 clavulanic acid AdvReac Nausea Verified 02/19/21 14:41 [From Augmentin] Iodinated Contrast Media AdvReac Other Verified 02/19/21 14:41 [CONTRASTS] niacin AdvReac Other Verified 02/19/21 14:41 [From Niaspan Extended-Release] rosuvastatin [From Crestor] AdvReac Other Verified 02/19/21 14:41 turkey grease AdvReac Rash Uncoded 01/01/21 09:58 Family History Mother Heart disease Diabetes Father Heart disease Cancer Sister Cancer COPD (chronic obstructive pulmonary disease) Surgical History History of aortic valve replacement with bioprosthetic valve (~09/06/13) History of bilateral carotid endarterectomy History of coronary artery bypass surgery (~09/06/13) History of left mastectomy (~1998) History of right mastectomy (~1998) History of tubal ligation Social History household members: none housing: house Smoking Status: Former smoker how long ago did patient quit smokin second hand exposure: No alcohol intake: never substance use type: does not use caffeine: Yes Type: coffee Number of servings: 2 and tea what type of physical activity do you participate in: none franci/zoroastrianism: Protestant seatbelt use: always do you feel safe at home: Yes Results Lab / Micro Data Result Diagrams: 02/20/21 15:24 02/20/21 10:10 Charges/Coding Addendum Addendum: This patient was seen in conjunction with SHELLEY Blankenship. I have independently interviewed and examined the patient and reviewed pertinent historical, laboratory, and other data. Please refer to SHELLEY Blankenship's note for his patient's presentation, findings, and recommendations. I have reviewed and his note and concur with his documentation 80-year-old female with past medical history of CAD, severe aortic stenosis who comes in with complaints of dark stools that was noticed this morning. Patient has history of chronic iron deficiency anemia/chronic GI bleeds and has been getting outpatient infusions. She follows with hematology in the outpatient. Her hemoglobin yesterday was 7.8. Patient hemoglobin here was 5.3. She had maroon stools as well as coffee-ground emesis on the floor. Patient's blood pressure was relatively low. She received fluid boluses as well as start of blood. GI was consulted. Patient was continued on IV PPI drip Physical Exam: Gen: Appears frail, not pale, not jaundiced CVS:HS I +II, regular, no murmurs RESP: CTA GI: BS present and normal, soft, nontender, no palpable organs EXT:No edema ASSESSMENT: 1. Acute blood loss anemia secondary to acute GI bleed 2. Acute GI bleed probably upper 3. Severe aortic stenosis 4. CAD Plan: Hold aspirin and Plavix Obtain medical records GI consulted Transfuse 2 units of packed RBCs H&H every 4h Continue on IV PPI drip Visit Charges Inpatient E&M: 55636 Init Hosp L3
[2021-02-20] MEDS: 0.9% Normal Saline 1,000 ML 999 ML IV ×2 (15:00→16:20)
[2021-02-20 15:33] LABS: POSITIVE COUNT YES
--- NOTE | 2021-02-20 15:35 | PCS.PANDOC ---
PANDEMIC DOCUMENTATION INITIATED: Date: 12/08/2020 Time: 190
--- NOTE | 2021-02-20 16:09 | NURSING ---
Addendum entered by Yolanda See 02/20/21 16:45: 1445-Notifed Dr Gomes in person of c/o chest pain, shakes, & EKG ordered. V/o to stop NS, and slow blood down. Pt resting in bed talking to staff, VS obtained. Original Note: 1450-Pt taken to bathroom. C/o feeling overheated; started vomiting coffee ground emesis and having sam blood stools. Assisted pt back to bed x3 assist. Dr Gomes was on unit, asked ore charger to have her come into room. Once sat on edge of bed, pt stated I'm going to pass out. Pt laid in bed, HOB elevated d/t pt vomiting again. VS obtained. Emesis and stool shown to Dr Gomes. V/o from Dr Gomes to give 2L NS IV boluses, and contact lab for blood STAT. Maik JARRELL called lab for PRBCs and STAT H&H. Pt remains talkative and is resistive to blood draw. Education provided on need for blood draw and current health status; Pt allowed for blood drawn. Dr Gomes notified Dr Montague of emesis and stools. PRBCs to room, verified and started. 1530-Dr Gomes notified of VS.
--- NOTE | 2021-02-20 16:17 | PCS.PANDOC ---
PANDEMIC DOCUMENTATION INITIATED: Date: 12/08/2020 Time: 190
--- NOTE | 2021-02-20 16:35 | EKG12_ITS ---
Test Reason : CP Blood Pressure : / mmHG Vent. Rate : 076 BPM Atrial Rate : 076 BPM P-R Int : 166 ms QRS Dur : 114 ms QT Int : 420 ms P-R-T Axes : 083 016 116 degrees QTc Int : 472 ms Normal sinus rhythm Low voltage QRS Septal infarct , age undetermined T wave abnormality, consider lateral ischemia Abnormal ECG When compared with ECG of 20-FEB-2021 10:12, MANUAL COMPARISON REQUIRED, DATA IS UNCONFIRMED Confirmed by CHRISTINA DELGADILLO, JANE ([id number]), commercial production editor CHRISTIN BARTHOLOMEW ([id number]) on 02/24/2021 12:28:46 P M Referred By: ERIC Confirmed By:VARUN VASQUEZ MD
--- NOTE | 2021-02-20 17:41 | EX.PCM.CON.G ---
HPI Consult Data Date of Consult: 02/20/21 HPI Narrative HPI Narrative: SAMMY SOLOMON, is a 80 F who presents with abdominal pain followed by diarrhea. She has a history of iron deficiency anemia. She also has a history of CAD status post CABG x2 and PTCA with stenting on aspirin and Plavix. Her last cardiac catheterization was in June 2020 and it showed no progression of coronary artery disease. She has a history of iron deficiency anemia and has been getting iron transfusions. She recently underwent an upper and lower endoscopy. Her upper and lower endoscopy did not find any signs of bleeding. I was called to see the patient because she had episode of coffee-ground emesis and multiple episodes of lower GI bleeding. She does not have any pain at this time. Her hemoglobin was 5.3 and she received 2 units of packed red blood cells. Her previous hemoglobin was 7.4. She received 4 iron transfusions for a ferritin of 7. She is being followed by hematology. [facility] Medical History Atherosclerotic heart disease of [place] coronary artery without angina pectoris Atypical chest pain Bilateral carotid artery stenosis Bilateral carotid bruits CAD (coronary artery disease) Carotid stenosis Jayson's syndrome Effusion, left knee Essential hypertension GERD (gastroesophageal reflux disease) History of left heart catheterization (LHC) (~07/14/20) HTN (hypertension) Iron deficiency anemia due to chronic blood loss Nonrheumatic aortic (valve) stenosis [place] (obstructive sleep apnea) Osteoarthritis Paroxysmal atrial fibrillation PND (post-nasal drip) Psoriasis Pure hypercholesterolemia Sleep disorder Sleep disorder breathing SOB (shortness of breath) on exertion TIA (transient ischemic attack) Tobacco abuse Type 2 diabetes mellitus Home Medications ezetimibe 10 mg PO QHS 09/01/13 [History Last Taken 02/19/21] pantoprazole 40 mg PO DAILY 09/01/13 [History Last Taken 02/19/21] metoprolol tartrate 100 mg tablet 100 mg PO BID #180 tab 10/05/18 [Rx Last Taken 02/19/21] nitroglycerin 0.4 mg sublingual tablet 0.4 mg SUBLINGUAL Q5M PRN #25 tab 10/05/18 [Rx Last Taken 04/12/19] acetaminophen 1,000 mg PO DAILY PRN PRN 04/12/19 [History Last Taken 02/19/21] niacin (inositol niacinate) 1,000 mg PO BID 04/12/19 [History Last Taken 02/19/21] clopidogrel 75 mg tablet 75 mg PO DAILY 11/22/19 [History Last Taken 02/19/21] furosemide [Lasix] 10 mg PO DAILY PRN 12/15/20 [History Last Taken Unknown] aspirin 81 mg PO DAILY #1 tab 01/05/21 [Rx Last Taken 02/19/21] ferrous sulfate 325 mg PO BID 02/20/21 [History Last Taken 02/19/21] levocetirizine [Xyzal] 5 mg PO QPM 02/20/21 [History Last Taken 02/19/21] Allergy/AdvReac Type Severity Reaction Status Date / Time Sulfa (Sulfonamide Allergy Severe HEART Verified 02/19/21 14:41 Antibiotics) RACING Latex, Natural Rubber Allergy Rash, Verified 02/19/21 14:41 psioriasis amoxicillin [From Augmentin] AdvReac Nausea Verified 02/19/21 14:41 atorvastatin [From Lipitor] AdvReac Other Verified 02/19/21 14:41 clavulanic acid AdvReac Nausea Verified 02/19/21 14:41 [From Augmentin] Iodinated Contrast Media AdvReac Other Verified 02/19/21 14:41 [CONTRASTS] niacin AdvReac Other Verified 02/19/21 14:41 [From Niaspan Extended-Release] rosuvastatin [From Crestor] AdvReac Other Verified 02/19/21 14:41 turkey grease AdvReac Rash Uncoded 01/01/21 09:58 Family History Mother Heart disease Diabetes Father Heart disease Cancer Sister Cancer COPD (chronic obstructive pulmonary disease) Surgical History History of aortic valve replacement with bioprosthetic valve (~09/06/13) History of bilateral carotid endarterectomy History of coronary artery bypass surgery (~09/06/13) History of left mastectomy (~1998) History of right mastectomy (~1998) History of tubal ligation Social History household members: none housing: house Smoking Status: Former smoker how long ago did patient quit smokin second hand exposure: No alcohol intake: never substance use type: does not use caffeine: Yes Type: coffee Number of servings: 2 and tea what type of physical activity do you participate in: none franci/caodaism: Amish seatbelt use: always do you feel safe at home: Yes ROS Review of Systems ROS Unobtainable: other Constitutional Constitutional: Denies fatigue, fever(s), poor appetite, weight gain or weight loss ENT HEENT: Denies mouth lesions Cardiovascular Cardiovascular: Denies abdominal bloating, abdominal edema or abdominal pain Respiratory/Chest Respiratory/Chest: Denies change in mental status, change in phlegm color, chest congestion or chest tightness Gastrointestinal Gastrointestinal: Denies belching, bloating, change in bowel habits, change in stool character, chewing difficulty, coffee ground emesis, constipation, cramping, diarrhea, dyspepsia, dysphagia, early satiety, excessive flatus, fecal incontinence, heartburn, hematemesis, hematochezia, hemorrhoids, loose stools, melena, nausea, odynophagia, rectal bleeding, tenesmus, vomiting or weight changes Genitourinary Genitourinary: Denies abdominal discomfort, burning urination or itching Musculoskeletal Musculoskeletal: Reports as per HPI; Denies muscle weakness or myalgias Integumentary Integumentary: Denies jaundice Neurologic Neurologic: Denies lack of coordination or weakness Psychiatric Psychiatric: Denies confusion, depression, memory loss, mood swings, paranoia or suicidal ideation Endocrine Endocrinology: Denies systems reviewed and no addt'l complaints, except as documented Hematologic/Lymphatic Hematologic/Lymphatic: Denies anemia, easy bleeding, easy bruising or lymphadenopathy Allergic/Immunologic Allergic/Immunologic: Denies systems reviewed and no addt'l complaints, except as documented Physical Exam Const alert General Appearance: cooperative Orientation / Consciousness: oriented to person HEENT hearing grossly normal bilaterally Head and Scalp: normal to inspection Face and Sinus: face symmetric Nose: external nose normal Mouth: oral and palatal mucosa normal Eyes conjunctivae normal General Eye: normal appearance of both eyes Neck full ROM General: normal visual inspection Lymph Lymphatic: no lymphadenopathy noted Chest inspection of chest normal and palpation of chest normal Chest: symmetrical chest wall rise Resp normal respiratory effort Effort and Inspection: able to speak in complete sentences Cardio regular rate GI non-distended Percussion: normal to percussion Rectal Exam: deferred Neuro Speech: speech normal Gait (Neuro): normal gait Lab / Micro Data Result Diagrams: 02/20/21 15:24 02/20/21 10:10 Labs: Laboratory Results - last 24 hr 02/20/21 10:10: WBC 11.2 H, RBC 1.89 L, Hgb 5.8 L*, Hct 19.6 L, MCV 103.7 H, MCH 30.7, MCHC 29.6 L, RDW Std Deviation 71.5 H, RDW Coeff of Velasquez 19.2 H, Plt Count 233, MPV 9.4, Immature Gran % (Auto) 1.000 H, Neut % (Auto) 85.8 H, Lymph % (Auto) 6.9 L, [place] % (Auto) 4.7, Eos % (Auto) 1.3, Baso % (Auto) 0.3, Absolute Neuts (auto) 9.6 H, Absolute Lymphs (auto) 0.77 L, Nucleated RBC % 0.2, Hypochromasia 1+, Anisocytosis 2+ 02/20/21 10:10: Sodium 140, Potassium 4.6, Chloride 106, Carbon Dioxide 29.0, Anion Gap 5, BUN 30 H, Creatinine 1.08 H, Estim Creat Clear Calc 32.86, Est GFR (MDRD) Af Amer 63, Est GFR (MDRD) Non-Af 52 L, BUN/Creatinine Ratio 27.8 H, Glucose 130 H, Calcium 8.2 L, Total Bilirubin 0.50, AST 16, ALT 15, Alkaline Phosphatase 50, Total Protein 5.6 L, Albumin 2.8 L, Globulin 2.8, Albumin/Globulin Ratio 1.0, Lipase 101 02/20/21 10:44: Blood Type A POSITIVE, Antibody Screen NEGATIVE, Crossmatch See Detail 02/20/21 15:24: Hgb 5.3 L*, Hct 18.0 L Assessment & Plan Assessment/Plan (1) Diarrhea: PLAN: Possibly secondary to GI bleed. It is possibly in her small bowel which would explain her diarrhea. On the differential diagnosis would be an upper GI bleed rapid transit and also ischemic colitis due to hypotension. (2) Symptomatic anemia: PLAN: Her BUN to creatinine ratio is elevated at 3 to 1 which is suspicious for an upper GI bleed. She will undergo upper endoscopy for evaluation of her upper GI tract and if that is normal then she will need a repeat colonoscopy. Charges/Coding Visit Charges Inpatient E&M: 50427 Init Hosp L2
[2021-02-20 18:30] LABS: Bedside Glucose 106 mg/dL (70-110)
--- NOTE | 2021-02-20 19:41 | OP.EGD_ITS ---
Patient Name: Ivanna Swann Procedure Date: 02/20/2021 6:19 PM Date of : 1940 Age: 80 Procedure: Upper GI endoscopy Indications: Acute post hemorrhagic anemia Providers: Bairon Montague DO Medicines: Propofol per Anesthesia Patient Profile: This is an 80 year old female. Refer to note in patient chart for documentation of history and physical. Patient has symptoms of acute epigastric abdominal pain. The symptoms first began 01,. She is status post EGD (normal) within the past three months. Complications: No immediate complications. Procedure: Pre-Anesthesia Assessment: - Prior to the procedure, a History and Physical was performed, and patient medications and allergies were reviewed. The patient is competent. The risks and benefits of the procedure and the sedation options and risks were discussed with the patient. All questions were answered and informed consent was obtained. Patient identification and proposed procedure were verified by the physician in the pre-procedure area. Mental Status Examination: alert and oriented. Airway Examination: normal oropharyngeal airway and neck mobility. Respiratory Examination: clear to auscultation. CV Examination: normal. Prophylactic Antibiotics: The patient does not require prophylactic antibiotics. Prior Anticoagulants: The patient has taken no previous anticoagulant or antiplatelet agents. ASA Grade Assessment: II - A patient with mild systemic disease. After reviewing the risks and benefits, the patient was deemed in satisfactory condition to undergo the procedure. The anesthesia plan was to use moderate sedation / analgesia (conscious sedation). Immediately prior to administration of medications, the patient was re-assessed for adequacy to receive sedatives. The heart rate, respiratory rate, oxygen saturations, blood pressure, adequacy of pulmonary ventilation, and response to care were monitored throughout the procedure. The physical status of the patient was re-assessed after the procedure. After obtaining informed consent, the endoscope was passed under direct vision. Throughout the procedure, the patient's blood pressure, pulse, and oxygen saturations were monitored continuously. The gastroscope was introduced through the mouth, and advanced to the. The pediatric colonoscope was introduced through the mouth, and advanced to the jejunum. The upper GI endoscopy was accomplished without difficulty. The patient tolerated the procedure well. Moderate Sedation: Moderate (conscious) sedation was administered by the endoscopy nurse and supervised by the endoscopist. The patient's oxygen saturation, heart rate, blood pressure and response to care were monitored. Total physician intraservice time was 15 minutes. Scope In: 6:42:51 PM Scope Out: 7:06:44 PM Total Procedure Duration Time 0 hours 23 minutes 53 seconds Findings: Red blood was found in the lower third of the esophagus. Coagulation for hemostasis using bipolar probe was successful. Estimated blood loss was minimal. A medium-sized hiatal hernia was present. A few 3 mm angiodysplastic lesions with stigmata of recent bleeding were found in the second portion of the duodenum. Coagulation for hemostasis using heater probe was successful. Estimated blood loss was minimal. A single 5 mm angioectasia with bleeding was found in the jejunum. Coagulation for hemostasis using heater probe was successful. Estimated blood loss was minimal. Impression: - Red blood in the lower third of the esophagus. Treated with bipolar cautery. - Medium-sized hiatal hernia. - No specimens collected. 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 Treated with argon plasma coagulation (APC). Recommendation: - [facility] care. - Clear liquid diet today. - Continue present medications. - No aspirin, ibuprofen, naproxen, or other non-steroidal anti-inflammatory drugs for 2 weeks. Procedure Code(s): --- Professional --- 18984, Esophagogastroduodenoscopy, flexible, transoral; with control of bleeding, any method G0500, Moderate sedation services provided by the same physician or other qualified health child caregiver performing a gastrointestinal endoscopic service that sedation supports, requiring the presence of an independent trained observer to assist in the monitoring of the patient's level of consciousness and physiological status; initial 15 minutes of intra-service time; patient age 5 years or older (additional time may be reported with 80583, as appropriate) CPT copyright 2017 [employer]. All rights reserved. The codes documented in this report are preliminary and upon bank secrecy act officer review may be revised to meet current compliance requirements. Bairon Montague DO 02/20/2021 7:40:32 PM This report has been signed electronically. Number of Addenda: 1 Note Initiated On: 02/20/2021 6:19 PM Addendum Number: 1 Addendum Date: 12/24/2021 4:51:27 PM MAC was used instead of moderate sedation for this patient. Bairon Montague DO 12/24/2021 4:51:38 PM This report has been signed electronically.
--- NOTE | 2021-02-20 19:41 | OP.CCLET_ITS ---
12/24/2021 Daisha Ramirez [address] [place] [address] Re : Upper GI endoscopy procedure for Ivanna Swann Dear Dr. Ramirez This procedure was performed on Saturday, February 20, 2021. My impressions and recommendations are as follows: Impressions : - Red blood in the lower third of the esophagus. Treated with bipolar cautery. - Medium-sized hiatal hernia. - No specimens collected. 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 Treated with argon plasma coagulation (APC). Recommendations : - [facility] for [facility] care. - Clear liquid diet today. - Continue present medications. - No aspirin, ibuprofen, naproxen, or other non-steroidal anti-inflammatory drugs for 2 weeks. My findings are described in the full procedure note, which is enclosed. If I can be of further assistance, please feel free to contact me at . Sincerely, Bairon Montague, 02/20/2021 7:40:32 PM This report has been signed electronically.
[2021-02-20] MEDS: Metoprolol Tartrate 100 MG Tablet PO (21:10)
[2021-02-20] MEDS: Ezetimibe 10 MG Tablet PO (21:10)
[2021-02-20 23:24] LABS: Hematocrit 24.9 % (37-47); Hemoglobin 7.7 g/dL (12.0-15.0)
[2021-02-20 23:55] LABS: Bedside Glucose 101 mg/dL (70-110)
[2021-02-21] VITALS (15 sets, daily range): BP systolic 103–146; BP diastolic 42–55; PULSE 73–84; RESP 16–18; TEMP 36.4–36.9; O2SAT 91–100
[2021-02-21 06:06] LABS: Absolute Lymphocyte Count 1.62 X10^3/uL (0.83-4.51); Absolute Neutrophil Count 7.6 X10^3/uL (2.0-7.7); Basophil# 0.04 X10^3/uL; Basophil% 0.4 % (0-1); Eosinophil# 0.27 X10^3/uL; Eosinophils% 2.6 % (0-5); Hematocrit 25.6 % (37-47); Hemoglobin 7.6 g/dL (12.0-15.0); Lymphocyte # 1.62 X10^3/ul (0.83-4.51); Lymphocyte % 15.8 % (19-41); Mean Corp Hgb Conc 29.7 g/dL (32-36); Mean Corpuscular Hgb 28.4 pg (27.0-32.0); Mean Corpuscular Volume 95.5 fL (81-99); Mean Platelet Vol. 9.7 fl (6.2-12.0); Monocyte# 0.72 X10^3/uL; NRBC Flagged by Analyzer 0.3 % (0-5); Neutrophil # 7.55 X10^3/uL (2.7-7.7); Neutrophil % 73.5 % (47-70); POSITIVE MORPHOLOGY YES; Platelet Count 173 K/mm3 (150-450); RBC Distribution Width CV 20.8 % (11.6-14.6); Red Blood Count 2.68 M/mm3 (4.2-5.4); White Blood Count 10.3 K/mm3 (4.4-11.0)
[2021-02-21 06:08] LABS: Differential Indicated SCAN CRITERIA MET
[2021-02-21 06:25] LABS: Differential Comment SCANNED
[2021-02-21 06:26] LABS: Anisocytosis 1+; Macrocytosis 1+; Polychromasia RARE
[2021-02-21 06:29] LABS: Anion Gap 3 (5-15); BUN 24 mg/dL (7-18); BUN/Creat Ratio 26.7 RATIO (10-20); Calcium,Total 7.8 mg/dL (8.5-10.1); Chloride 113 mmol/L (98-107); EST Glomerular Filtration Rate 64 mL/min (>60); Est Glom Filt Rate - Afr Amer 78 mL/min (>60); Estimated Creatinine Clearance 39.43 ml/min; Glucose 94 mg/dL (74-106); Potassium 4.8 mmol/L (3.5-5.1); Sodium Level 144 mmol/L (136-145)
[2021-02-21 06:31] LABS: Bedside Glucose 92 mg/dL (70-110)
[2021-02-21] MEDS: Ascorbic Acid 500 MG Tablet PO (10:28)
[2021-02-21] MEDS: Furosemide 20 MG/2 ML VIAL IV (10:33)
[2021-02-21] MEDS: 0.9% Saline Lock 10 ML Syringe IV ×2 (10:36→17:07)
--- NOTE | 2021-02-21 10:40 | CASEMGMT ---
RN JESUSITA Face to Face with patient for initial transition planning/care coordination assessment. RN CM introduced self and role at [facility]. Patient lying in bed, alert and oriented. Patient willing to participate in assessment and is able to answer all questions appropriately. Care providers, pharmacy, and demographics verified. Patient wishes to discharge home, denies need for home health at this time. Patient states she has no further needs or concerns at this time. CM to follow for discharge planning needs that may arise. PCP: James Specialists: Christo, engineering inspector [facility] Prescription Benefit: yes Living Will/HPOA: yes, son Kolby Swann LNOK: son, grandson, cousin Living Arrangements: Patient lives in a single story home with 2 steps to enter the home. Patient states she is independent at home. Transportation: self/cousin DME/HHC: Patient states she has shower chair, raised toilet, walker, grab bars, and wheelchair at home. Patient has had [facility] in the past. Disposition Plan: Patient to discharge home with family support and follow-up plans in place. Mamta SOTO, RN, CM
--- NOTE | 2021-02-21 12:18 | PCM.PN.HOSP ---
Documented by User: Kyrie ROSA 02/21/21 12:36 Subjective Subjective Patient is a 80-year-old female comfortably resting in bed, alert and orient x3. Patient denies any more ongoing hematemesis or hematochezia. Denies development of any new symptoms overnight. Does not appear to be in acute distress. Objective Data Objective Data Vital Signs: Vital Signs Temp Pulse Resp BP Pulse Ox 98.5 F 78 16 113/55 L 91 02/21/21 10:12 02/21/21 10:32 02/21/21 10:12 02/21/21 10:32 02/21/21 10:12 Oxygen Delivery Method Room Air Weight: 165 lb 9.074 oz Body Mass Index (BMI) 28.5 Intake & Output: Intake and Output for Last 24 Hours 02/19/21 02/20/21 02/21/21 23:59 23:59 23:59 Intake Total 2182.95 / 2182.95 99.5 / 99.5 Output Total 150 / 150 Balance 2032.95 / 2032.95 99.5 / 99.5 Lab / Micro Data Result Diagrams: 02/21/21 05:26 02/21/21 05:26 Labs: Laboratory Results - last 24 hr 02/20/21 10:10: Diff Path Review August02/20/21 10:44: Blood Type A POSITIVE, Antibody Screen NEGATIVE, Crossmatch See Detail 02/20/21 10:44: Crossmatch See Detail 02/20/21 15:24: Hgb 5.3 L*, Hct 18.0 L 02/20/21 17:43: POC Glucose 106 02/20/21 22:56: Hgb 7.7 L, Hct 24.9 L 02/20/21 23:45: POC Glucose 101 02/21/21 05:26: WBC 10.3, RBC 2.68 L, Hgb 7.6 L, Hct 25.6 L, MCV 95.5 D, MCH 28.4, MCHC 29.7 L, RDW Std Deviation 69.0 H, RDW Coeff of Velasquez 20.8 H, Plt Count 173, MPV 9.7, Immature Gran % (Auto) 0.700, Neut % (Auto) 73.5 H, Lymph % (Auto) 15.8 L, [place] % (Auto) 7.0, Eos % (Auto) 2.6, Baso % (Auto) 0.4, Absolute Neuts (auto) 7.6, Absolute Lymphs (auto) 1.62, Nucleated RBC % 0.3, Differential Comment SCANNED, Polychromasia RARE, Anisocytosis 1+, Macrocytosis 1+ 02/21/21 05:26: Sodium 144, Potassium 4.8, Chloride 113 H, Carbon Dioxide 28.0, Anion Gap 3 L, BUN 24 H, Creatinine 0.90, Estim Creat Clear Calc 39.43, Est GFR (MDRD) Af Amer 78, Est GFR (MDRD) Non-Af 64, BUN/Creatinine Ratio 26.7 H, Glucose 94, Calcium 7.8 L 02/21/21 06:10: POC Glucose 92 Micro: Microbiology 02/20/21 17:38 Nasal Secretion SARS-CoV-2 Antigen (Rapid) - Final Physical Exam Const alert, oriented x3 and no apparent distress HEENT head/scalp atraumatic and moist oral mucous membranes Head and Scalp: normocephalic Eyes PERRL, EOMs intact bilaterally and conjunctivae normal Neck no lymphadenopathy, supple and no JVD Resp normal respiratory effort, no retractions and no use of accessory muscles Cardio regular rate, regular rhythm, no murmurs and no JVD GI normal to inspection, nondistended, normoactive bowel sounds, soft to palpation and non-tender Extremity normal to inspection, full ROM and no clubbing, cyanosis or edema Peripheral Pulses: Yes pulses 2+ throughout Skin no rashes or lesions noted, no wounds and skin turgor normal Neuro CN's II-XII intact bilaterally Psych affect normal Assessment & Plan Assessment/Plan (1) UGIB (upper gastrointestinal bleed): (2) Acute blood loss anemia (ABLA): PLAN: Day 1 Discharge planning: Current plan is unclear at this time, SNF versus returning home. Case management and social work following. 1) Acute blood loss anemia secondary to upper GI bleed Hematemesis and hematochezia observed in the ED. EGD performed by Dr. Montague, which found red blood in the lower esophagus, which was cauterized. 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 Hemoglobin is currently 7.6, was 5.8 on admission. Current plan, per GI, is to monitor, continue clear liquid diet and avoid any medications that may exacerbate bleeds. Also continue PPI, trend CBC in a.m. 2) CAD status post left heart catheterization Hold aspirin and Plavix as above. Continue beta-mariah. 3) HTN Stable, continue beta-mariah. 4) DM2 Accu-Cheks with sliding scale insulin ordered. DVT prophylaxis - not indicated Patient seen by Kyrie Wilson PA-C, under the supervision of Dr. Gomes. Documented by User: Dr. Ramya Gomes MD 02/21/21 16:11 Objective Data Lab / Micro Data Result Diagrams: 02/21/21 05:26 02/21/21 05:26 Charges/Coding Addendum Addendum: This patient was seen in conjunction with SHELLEY Blankenship. I have independently interviewed and examined the patient and reviewed pertinent historical, laboratory, and other data. Please refer to SHELLEY Blankenship's note for his patient's presentation, findings, and recommendations. I have reviewed and his note and concur with his documentation Patient was seen and examined. No more bleeding seen. Vitals remained stable Physical Exam: Gen: Appears frail, not pale, not jaundiced CVS:HS I +II, regular, no murmurs RESP: CTA GI: BS present and normal, soft, nontender, no palpable organs EXT:No edema ASSESSMENT: 1. Acute blood loss anemia secondary to acute GI bleed 2. Acute GI bleed secondary to AVMs and lower esophagitis 3. Severe aortic stenosis 4. CAD Plan: Continue to hold aspirin and Plavix Transfuse 1 unit of packed RBCs Continue on IV PPI drip Repeat blood work in a.m. Visit Charges Inpatient E&M: 77068 Subs Hosp L2
[2021-02-21 12:50] LABS: Bedside Glucose 114 mg/dL (70-110)
[2021-02-21 16:50] LABS: Bedside Glucose 89 mg/dL (70-110)
[2021-02-21] MEDS: Ezetimibe 10 MG Tablet PO (21:44)
[2021-02-21] MEDS: Metoprolol Tartrate 100 MG Tablet PO (21:44)
[2021-02-21 22:15] LABS: Bedside Glucose 90 mg/dL (70-110)
[2021-02-22] VITALS (9 sets, daily range): BP systolic 123–149; BP diastolic 50–73; PULSE 60–79; RESP 16–20; TEMP 36.8–37.1; O2SAT 96–100
[2021-02-22 00:16] LABS: Bedside Glucose 85 mg/dL (70-110)
[2021-02-22 05:46] LABS: Bedside Glucose 103 mg/dL (70-110)
[2021-02-22 05:57] LABS: Absolute Neutrophil Count 5.9 X10^3/uL (2.0-7.7); Basophil# 0.04 X10^3/uL; Basophil% 0.5 % (0-1); Eosinophil# 0.53 X10^3/uL; Eosinophils% 6.3 % (0-5); Hematocrit 28.8 % (37-47); Lymphocyte % 14.3 % (19-41); Mean Corp Hgb Conc 31.3 g/dL (32-36); Mean Corpuscular Hgb 29.1 pg (27.0-32.0); Mean Corpuscular Volume 93.2 fL (81-99); Mean Platelet Vol. 9.9 fl (6.2-12.0); Monocyte# 0.65 X10^3/uL; Monocyte% 7.7 % (0-10); NRBC Flagged by Analyzer 0.2 % (0-5); Neutrophil # 5.93 X10^3/uL (2.7-7.7); Neutrophil % 70.6 % (47-70); Platelet Count 173 K/mm3 (150-450); RBC Distribution Width CV 19.1 % (11.6-14.6); Red Blood Count 3.09 M/mm3 (4.2-5.4); White Blood Count 8.4 K/mm3 (4.4-11.0)
[2021-02-22 06:20] LABS: Anion Gap 5 (5-15); BUN 16 mg/dL (7-18); BUN/Creat Ratio 15.7 RATIO (10-20); Chloride 108 mmol/L (98-107); Creatinine, Serum 1.02 mg/dL (0.55-1.02); EST Glomerular Filtration Rate 55 mL/min (>60); Est Glom Filt Rate - Afr Amer 67 mL/min (>60); Estimated Creatinine Clearance 34.79 ml/min; Glucose 101 mg/dL (74-106); Potassium 3.9 mmol/L (3.5-5.1); Sodium Level 141 mmol/L (136-145)
--- NOTE | 2021-02-22 11:23 | PCM.DC ---
Discharge Instructions Diet Discharge Diet: No restrictions Activity Discharge Activity: Return to Normal Activity Weight Bearing Status: Weight bearing as tolerated Dressing / Incision Call your doctor if you observe: Fever of 101 or Higher, Numbness or Tingling, Shortness of breath, Dizziness, Chest pain, Increased palpitations (irregular heartbeat) and Calf discomfort Follow Up Care Please Follow Up With: Primary care provider When: Within the next two weeks. Test Results: Test results from this visit will be discussed in further detail at your follow-up appointment, if applicable. Discharge Plan Admission Admit Date/Time: 02/20/21 12:51 Primary Reason for Your Visit: Upper GI Bleed Attending Provider: Ramya Gomes Primary Care Provider: Daisha Ramirez Instructions Additional Instructions / Restrictions: Per Gastroenterology: No aspirin, ibuprofen, naproxen, or other non-steroidal anti-inflammatory drugs for 2 weeks. Discharge Orders/Prescriptions Prescriptions: Continued nitroglycerin 0.4 mg tablet, sublingual 0.4 mg SUBLINGUAL Q5M PRN (Reason: Chest Pain) Qty: 25 RF: 1 metoprolol tartrate 100 mg tablet 100 mg PO BID Qty: 180 RF: 3 pantoprazole 40 MG tablet 40 mg PO DAILY RF: 0 ezetimibe 10 MG tablet 10 mg PO QHS RF: 0 acetaminophen 500 MG tablet 1,000 mg PO DAILY PRN PRN (Reason: Pain Or Fever) RF: 0 niacin (inositol niacinate) 500 MG capsule 1,000 mg PO BID RF: 0 furosemide [Lasix] 20 mg Tablet 10 mg PO DAILY PRN (Reason: Edema) RF: 0 levocetirizine [Xyzal] 5 mg Tablet 5 mg PO QPM RF: 0 ferrous sulfate 325 MG tablet 325 mg PO BID RF: 0 Held clopidogrel [Plavix] 75 mg tablet 75 mg PO DAILY RF: 0 Hold Instructions: Resume on 03/06/21. aspirin 81 mg tablet,delayed release (DR/EC) 81 mg PO DAILY Qty: 1 RF: 0 Hold Instructions: Resume on 03/06/21. Referrals / Follow Up: Gabriel Villa MD [STAFF PHYSICIAN] - Within 1 Week (Follow up with Dr. Villa for potential Gallbladder surgery. ) Daisha Ramirez DO [Primary Care Provider] - Within 2 Weeks Friend,Bairon, DO [STAFF PHYSICIAN] - Within 2 Weeks (Appointment with Dr. Montague for capsule study as well as EGD follow up. ) Disposition Disposition (needs filled in before D/C Order can be placed): Home, Self Care
[2021-02-22] MEDS: Ascorbic Acid 500 MG Tablet PO (11:38)
[2021-02-22] MEDS: Metoprolol Tartrate 100 MG Tablet PO (11:38)
[2021-02-22] MEDS: Acetaminophen 500 MG Tablet 1000 MG PO (12:23)
[2021-02-22 13:51] LABS: Bedside Glucose 96 mg/dL (70-110)
--- NOTE | 2021-02-22 14:36 | PCM.DC.SUM ---
Documented by User: Kyrie ROSA 02/22/21 14:44 Providers Date of Admission: 02/20/21 Primary Care Physician: Dr. Daisha Ramirez, Consultations 02/20/21 14:11 Consult: Gastroenterology Routine Consulting Provider: [facility] Reason for Consult: Severe anemia EMERGENT Consult: No MD Notified: Yes Date Notified: 02/20/21 Time Notified: 15:10 Method of Notification: Text Reason For Visit: ACUTE ENEMA/GI BLEED Diagnosis Discharge Diagnosis (1) UGIB (upper gastrointestinal bleed): Status: Acute Code(s): K92.2 - Gastrointestinal hemorrhage, unspecified (2) Acute blood loss anemia (ABLA): Status: Acute Code(s): D62 - Acute posthemorrhagic anemia Medications at Discharge Home Medications ezetimibe 10 mg PO QHS 09/01/13 pantoprazole 40 mg PO DAILY 09/01/13 metoprolol tartrate 100 mg tablet 100 mg PO BID #180 tab 10/05/18 nitroglycerin 0.4 mg sublingual tablet 0.4 mg SUBLINGUAL Q5M PRN #25 tab 10/05/18 acetaminophen 1,000 mg PO DAILY PRN PRN 04/12/19 niacin (inositol niacinate) 1,000 mg PO BID 04/12/19 clopidogrel 75 mg tablet 75 mg PO DAILY 11/22/19 furosemide [Lasix] 10 mg PO DAILY PRN 12/15/20 aspirin 81 mg PO DAILY #1 tab 01/05/21 ferrous sulfate 325 mg PO BID 02/20/21 levocetirizine [Xyzal] 5 mg PO QPM 02/20/21 Hospital Course Procedures Colonoscopy and EGD Summary of Care Provided Minutes Spent on Discharge: 35 Hospital Course: Disposition: Patient to discharge home. 1) Acute blood loss anemia secondary to upper GI bleed Hematemesis and hematochezia observed in the ED. EGD performed by Dr. Montague, which found red blood in the lower esophagus, which was cauterized. 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 Hemoglobin is currently 7.6, was 5.8 on admission. Hemoglobin continued to improve to 9.0 this morning. Patient will be discharged home and is to avoid medications that will exacerbate bleeding like aspirin, Plavix or NSAIDs for the next 2 weeks. Patient is to follow-up with Dr. Montague within the next 2 weeks for appropriate outpatient follow-up. Follow-up with primary care provider within the next 2 weeks. 2) CAD status post left heart catheterization Hold aspirin and Plavix as above. Continue beta-mariah. 3) HTN Stable, continue beta-mariah. 4) DM2 Accu-Cheks with sliding scale insulin ordered. 5) left upper quadrant pain Patient observed having left upper quadrant pain on 02/22 on physical exam. Patient reports that this is due to her gallstones and that pain can be controlled with Tylenol. Gallbladder ultrasound obtained in the hospital and patient is to follow-up with Dr. Mcintosh for possible outpatient surgical management. Patient seen by Kyrie Wilson PA-C, under the supervision of Dr. Gomes. Physical Exam Narrative Patient is a 80-year-old female who is comfortably resting in bed, alert and orient x3. Patient reports resolution of her hematochezia and hematemesis from admission. Does report some abdominal pain, which she reports is due to her gallbladder and that is responsive to Tylenol. Does not appear in acute distress. Const alert, oriented x3 and no apparent distress HEENT normocephalic, head/scalp atraumatic and hearing grossly normal bilaterally Eyes PERRL, EOMs intact bilaterally and conjunctivae normal Neck no lymphadenopathy and no JVD Resp normal respiratory effort, no retractions, no use of accessory muscles and clear to auscultation bilaterally Cardio regular rate, regular rhythm, no murmurs and no JVD GI normal to inspection, nondistended, normoactive bowel sounds and soft to palpation Extremity normal to inspection, full ROM and no clubbing, cyanosis or edema Skin no rashes or lesions noted, no wounds and skin turgor normal Neuro CN's II-XII intact bilaterally Psych affect normal Weight / BMI Weight Weight: 162 lb 7.691 oz Body Mass Index (BMI) 28.5 ABG / Lab / Microbiology Data Result Diagrams: 02/22/21 05:36 02/22/21 05:36 Laboratory: Laboratory Results - last 24 hr 02/20/21 10:44: Crossmatch See Detail 02/21/21 16:40: POC Glucose 89 02/21/21 21:43: POC Glucose 90 02/22/21 00:11: POC Glucose 85 02/22/21 05:36: WBC 8.4, RBC 3.09 L, Hgb 9.0 L, Hct 28.8 L, MCV 93.2, MCH 29.1, MCHC 31.3 L D, RDW Std Deviation 62.0 H, RDW Coeff of Velasquez 19.1 H, Plt Count 173, MPV 9.9, Immature Gran % (Auto) 0.600, Neut % (Auto) 70.6 H, Lymph % (Auto) 14.3 L, [place] % (Auto) 7.7, Eos % (Auto) 6.3 H, Baso % (Auto) 0.5, Absolute Neuts (auto) 5.9, Absolute Lymphs (auto) 1.20, Nucleated RBC % 0.2 02/22/21 05:36: Sodium 141, Potassium 3.9, Chloride 108 H, Carbon Dioxide 28.0, Anion Gap 5, BUN 16, Creatinine 1.02, Estim Creat Clear Calc 34.79, Est GFR (MDRD) Af Amer 67, Est GFR (MDRD) Non-Af 55 L, BUN/Creatinine Ratio 15.7, Glucose 101, Calcium 8.0 L 02/22/21 05:41: POC Glucose 103 02/22/21 12:27: POC Glucose 96 Microbiology: Microbiology 02/20/21 17:38 Nasal Secretion SARS-CoV-2 Antigen (Rapid) - Final D/C Instructions Discharge Diet: No restrictions Weight Bearing Status: Weight bearing as tolerated Call your doctor if you observe: Fever of 101 or Higher, Numbness or Tingling, Shortness of breath, Dizziness, Chest pain, Increased palpitations (irregular heartbeat) and Calf discomfort Please Follow Up With: Primary care provider When: Within the next two weeks. Meaningful Use Info Meaningful Use Diagnoses (Choose all that apply): None applicable Discharge Plan Admission Admit Date/Time: 02/20/21 12:51 Primary Reason for Your Visit: Upper GI Bleed Attending Provider: Ramya Gomes Primary Care Provider: Daisha Ramirez Instructions Additional Instructions / Restrictions: Per Gastroenterology: No aspirin, ibuprofen, naproxen, or other non-steroidal anti-inflammatory drugs for 2 weeks. Discharge Orders/Prescriptions Prescriptions: Continued nitroglycerin 0.4 mg tablet, sublingual 0.4 mg SUBLINGUAL Q5M PRN (Reason: Chest Pain) Qty: 25 RF: 1 metoprolol tartrate 100 mg tablet 100 mg PO BID Qty: 180 RF: 3 pantoprazole 40 MG tablet 40 mg PO DAILY RF: 0 ezetimibe 10 MG tablet 10 mg PO QHS RF: 0 acetaminophen 500 MG tablet 1,000 mg PO DAILY PRN PRN (Reason: Pain Or Fever) RF: 0 niacin (inositol niacinate) 500 MG capsule 1,000 mg PO BID RF: 0 furosemide [Lasix] 20 mg Tablet 10 mg PO DAILY PRN (Reason: Edema) RF: 0 levocetirizine [Xyzal] 5 mg Tablet 5 mg PO QPM RF: 0 ferrous sulfate 325 MG tablet 325 mg PO BID RF: 0 Held clopidogrel [Plavix] 75 mg tablet 75 mg PO DAILY RF: 0 Hold Instructions: Resume on 03/06/21. aspirin 81 mg tablet,delayed release (DR/EC) 81 mg PO DAILY Qty: 1 RF: 0 Hold Instructions: Resume on 03/06/21. Referrals / Follow Up: Gabriel Villa MD [STAFF PHYSICIAN] - Within 1 Week (Follow up with Dr. Villa for potential Gallbladder surgery. ) Daisha Ramirez DO [Primary Care Provider] - Within 2 Weeks Bairon Montague DO [STAFF PHYSICIAN] - Within 2 Weeks (Appointment with Dr. Montague for capsule study as well as EGD follow up. ) Disposition Disposition (needs filled in before D/C Order can be placed): Home, Self Care Documented by User: Dr. Ramya Gomes MD 02/22/21 15:37 Providers Date of Admission: 02/20/21 Reason For Visit: ACUTE ENEMA/GI BLEED Medications at Discharge Home Medications ezetimibe 10 mg PO QHS 09/01/13 pantoprazole 40 mg PO DAILY 09/01/13 metoprolol tartrate 100 mg tablet 100 mg PO BID #180 tab 10/05/18 nitroglycerin 0.4 mg sublingual tablet 0.4 mg SUBLINGUAL Q5M PRN #25 tab 10/05/18 acetaminophen 1,000 mg PO DAILY PRN PRN 04/12/19 niacin (inositol niacinate) 1,000 mg PO BID 04/12/19 clopidogrel 75 mg tablet 75 mg PO DAILY 11/22/19 furosemide [Lasix] 10 mg PO DAILY PRN 12/15/20 aspirin 81 mg PO DAILY #1 tab 01/05/21 ferrous sulfate 325 mg PO BID 02/20/21 levocetirizine [Xyzal] 5 mg PO QPM 02/20/21 ABG / Lab / Microbiology Data Result Diagrams: 02/22/21 05:36 02/22/21 05:36 Discharge Plan Admission Admit Date/Time: 02/20/21 12:51 Primary Reason for Your Visit: Upper GI Bleed Attending Provider: Ramya Gomes Primary Care Provider: Daisha Ramirez Instructions Additional Instructions / Restrictions: Per Gastroenterology: No aspirin, ibuprofen, naproxen, or other non-steroidal anti-inflammatory drugs for 2 weeks. Discharge Orders/Prescriptions Prescriptions: Continued nitroglycerin 0.4 mg tablet, sublingual 0.4 mg SUBLINGUAL Q5M PRN (Reason: Chest Pain) Qty: 25 RF: 1 metoprolol tartrate 100 mg tablet 100 mg PO BID Qty: 180 RF: 3 pantoprazole 40 MG tablet 40 mg PO DAILY RF: 0 ezetimibe 10 MG tablet 10 mg PO QHS RF: 0 acetaminophen 500 MG tablet 1,000 mg PO DAILY PRN PRN (Reason: Pain Or Fever) RF: 0 niacin (inositol niacinate) 500 MG capsule 1,000 mg PO BID RF: 0 furosemide [Lasix] 20 mg Tablet 10 mg PO DAILY PRN (Reason: Edema) RF: 0 levocetirizine [Xyzal] 5 mg Tablet 5 mg PO QPM RF: 0 ferrous sulfate 325 MG tablet 325 mg PO BID RF: 0 Held clopidogrel [Plavix] 75 mg tablet 75 mg PO DAILY RF: 0 Hold Instructions: Resume on 03/06/21. aspirin 81 mg tablet,delayed release (DR/EC) 81 mg PO DAILY Qty: 1 RF: 0 Hold Instructions: Resume on 03/06/21. Referrals / Follow Up: Gabriel Villa MD [STAFF PHYSICIAN] - Within 1 Week (Follow up with Dr. Villa for potential Gallbladder surgery. ) Daisha Ramirez DO [Primary Care Provider] - Within 2 Weeks Bairon Montague DO [STAFF PHYSICIAN] - Within 2 Weeks (Appointment with Dr. Montague for capsule study as well as EGD follow up. ) Disposition Disposition (needs filled in before D/C Order can be placed): Home, Self Care Charges/Coding Addendum Addendum: This patient was seen in conjunction with SHELLEY Blankenship. I have independently interviewed and examined the patient and reviewed pertinent historical, laboratory, and other data. Please refer to SHELLEY Blankenship's note for his patient's presentation, findings, and recommendations. I have reviewed and his note and concur with his documentation 80-year-old female with past medical history of CAD, severe aortic stenosis who comes in with complaints of dark stools that was noticed this morning. Patient has history of chronic iron deficiency anemia/chronic GI bleeds and has been getting outpatient infusions. She follows with hematology in the outpatient. Her hemoglobin yesterday was 7.8. In the ED, her hemoglobin was 5.3. Patient was typed and crossmatched for 2 units of packed RBC. When the patient goes to the floor she had maroon stools as well as coffee-ground emesis. GI took patient to EGD emergently. Findings were that of severe bleeding lower esophagitis as well as AVMs. Patient got transfused a total of 3 units of packed RBCs. Her hemoglobin remained stable. No more melena or hematemesis. On the day of discharge, patient was seen and examined. She complains of right upper quadrant pain. Ultrasound of the gallbladder on admission was suggestive of gallstones but no acute cholecystitis. He was referred to follow-up with Dr. Villa within 1 to 2 weeks ago outpatient elective cholecystectomy Physical Exam: Gen: Appears frail, not pale, not jaundiced CVS:HS I +II, regular, no murmurs RESP: CTA GI: BS present and normal, soft, slight RUQ tenderness, no palpable organs EXT:No edema Visit Charges Inpatient E&M: 75853 Disch Hosp
[2021-02-23 12:42] LABS: Pathologist Review Reviewed
[2021-02-23 13:34] LABS: Hemoglobin 5.3 g/dL (12.0-15.0)
--- NOTE | 2021-02-23 14:34 | CASEMGMT ---
[facility] Discharge Follow-up Phone Call: JUDE: Frank Strata: 3 Call Date:02/23/21 Discharge Date: 02/22/21 Time of Call: 1430 Duration: 5 min Admitting Diagnosis: Acute enema/GI Bleed [facility] completed follow-up phone call after recent hospitalization. Patient states she is doing well, had a BM today and slept well. Patient had no questions regarding discharge instructions. Patient is aware to schedule follow-up appts with PCP, Allen, and Friend. Patient had no further questions or concerns at this time.
== END 2021-02-22 14:29 | disposition home or self-care (01) | DRG 378 ==
LOC: ED 12:59 → PCU 13:43
PROVIDERS: Internal Medicine Gastroenterology; Physician Assistant; Admitting Provider Internal Medicine; Emergency Provider Emergency Medicine; PCP Internal Medicine; Visit Provider Internal Medicine
PROC: 0DJ08ZZ Inspection of Upper Intestinal Tract, Via Natural or Artificial Opening Endoscopic (ICD-10-PCS; CPT 43235; principal; 2021-02-20 16:00)
DX: K31.811 Angiodysplasia of stomach and duodenum with bleeding (principal); D62 Acute posthemorrhagic anemia; I24.1 Dressler's syndrome; E11.9 Type 2 diabetes mellitus without complications; E78.00 Pure hypercholesterolemia, unspecified; G47.33 Obstructive sleep apnea (adult) (pediatric); I10 Essential (primary) hypertension; I25.10 Atherosclerotic heart disease of native coronary artery without angina pectoris; I34.1 Nonrheumatic mitral (valve) prolapse; I48.0 Paroxysmal atrial fibrillation; J44.9 Chronic obstructive pulmonary disease, unspecified; K80.20 Calculus of gallbladder without cholecystitis without obstruction; K21.00 Gastro-esophageal reflux disease with esophagitis, without bleeding; K44.9 Diaphragmatic hernia without obstruction or gangrene; I35.0 Nonrheumatic aortic (valve) stenosis; Z86.73 Personal history of transient ischemic attack (TIA), and cerebral infarction without residual deficits; Z72.0 Tobacco use; Z79.82 Long term (current) use of aspirin; Z88.2 Allergy status to sulfonamides; Z87.11 Personal history of peptic ulcer disease; Z82.49 Family history of ischemic heart disease and other diseases of the circulatory system; Z98.51 Tubal ligation status; Z90.13 Acquired absence of bilateral breasts and nipples; Z95.1 Presence of aortocoronary bypass graft; Z95.3 Presence of xenogenic heart valve
CPT/HCPCS: 36415; 76705; 80048; 80053; 82728; 82962; 83540; 83550; 83690; 85014; 85018; 85025; 86850; 86900; 86901; 86920; 86922; 87426; 93005; 97162; 99285; J7030; P9016; A4216; J1940; J2405

== ENCOUNTER 2021-03-12 22:33 | Emergency (ER) | payer MEDICARE, SELFPAY ==
[2021-03-12 22:34] VITALS: BP 197/91; PULSE 84; RESP 16; TEMP 36.4; O2SAT 98; BMI 27.1
--- NOTE | 2021-03-12 22:58 | EX.ED.DYSGE1 ---
HPI History of Present Illness Chief Complaint: Other, Pain/Inj Narrative Narrative: Patient is an 80-year-old female on Plavix. She states roughly 1 year ago she was eating a chip and scraped taste buds off. She states that she had to have the wound cauterized at that time. She states it seemed to be doing well but today she had new onset bleeding. She denies any trauma. She states she went to her family doctor where it was cauterized. She states this evening then she had sudden onset of bleeding once again which she cannot get to stop and therefore comes in for evaluation. [facility] Medical History Acute blood loss anemia Atherosclerotic heart disease of [place] coronary artery without angina pectoris Atypical chest pain Bilateral carotid artery stenosis Bilateral carotid bruits Biliary colic CAD (coronary artery disease) Carotid stenosis Cholelithiasis Jayson's syndrome Effusion, left knee Essential hypertension Gallstones GERD (gastroesophageal reflux disease) History of left heart catheterization (LHC) (~07/14/20) HTN (hypertension) Iron deficiency anemia due to chronic blood loss Near syncope Nonrheumatic aortic (valve) stenosis [place] (obstructive sleep apnea) Osteoarthritis Paroxysmal atrial fibrillation PND (post-nasal drip) Psoriasis Pure hypercholesterolemia Sleep disorder Sleep disorder breathing SOB (shortness of breath) on exertion TIA (transient ischemic attack) Tobacco abuse Type 2 diabetes mellitus UGIB (upper gastrointestinal bleed) Home Medications ezetimibe 10 mg PO QHS 09/01/13 [History Last Taken 02/19/21] pantoprazole 40 mg PO DAILY 09/01/13 [History Last Taken 02/19/21] metoprolol tartrate 100 mg tablet 100 mg PO BID #180 tab 10/05/18 [Rx Last Taken 02/19/21] nitroglycerin 0.4 mg sublingual tablet 0.4 mg SUBLINGUAL Q5M PRN #25 tab 10/05/18 [Rx Last Taken 04/12/19] acetaminophen 1,000 mg PO DAILY PRN PRN 04/12/19 [History Last Taken 02/19/21] niacin (inositol niacinate) 1,000 mg PO BID 04/12/19 [History Last Taken 02/19/21] clopidogrel 75 mg tablet 75 mg PO DAILY 11/22/19 [History Last Taken 02/19/21] furosemide [Lasix] 10 mg PO DAILY PRN 12/15/20 [History Last Taken Unknown] aspirin 81 mg PO DAILY #1 tab 01/05/21 [Rx Last Taken 02/19/21] ferrous sulfate 325 mg PO BID 02/20/21 [History Last Taken 02/19/21] levocetirizine [Xyzal] 5 mg PO QPM 02/20/21 [History Last Taken 02/19/21] Allergy/AdvReac Type Severity Reaction Status Date / Time Sulfa (Sulfonamide Allergy Severe HEART Verified 03/12/21 22:36 Antibiotics) RACING Latex, Natural Rubber Allergy Rash, Verified 03/12/21 22:36 psioriasis amoxicillin [From Augmentin] AdvReac Nausea Verified 03/12/21 22:36 atorvastatin [From Lipitor] AdvReac Other Verified 03/12/21 22:36 clavulanic acid AdvReac Nausea Verified 03/12/21 22:36 [From Augmentin] Iodinated Contrast Media AdvReac Other Verified 03/12/21 22:36 [CONTRASTS] niacin AdvReac Other Verified 03/12/21 22:36 [From Niaspan Extended-Release] rosuvastatin [From Crestor] AdvReac Other Verified 03/12/21 22:36 turkey grease AdvReac Rash Uncoded 02/26/21 12:09 Family History Mother Heart disease Diabetes Father Heart disease Cancer Sister Cancer COPD (chronic obstructive pulmonary disease) Surgical History History of aortic valve replacement with bioprosthetic valve (~09/06/13) History of bilateral carotid endarterectomy History of coronary artery bypass surgery (~09/06/13) History of left mastectomy (~1998) History of right mastectomy (~1998) History of tubal ligation Social History household members: none housing: house Smoking Status: Former smoker how long ago did patient quit smokin second hand exposure: No alcohol intake: never substance use type: does not use caffeine: Yes Type: coffee Number of servings: 2 and tea what type of physical activity do you participate in: none franci/pentecostal: Confucianism seatbelt use: always do you feel safe at home: Yes ROS ROS ED Constitutional Constitutional ED: Denies chills or fever(s) ENT ENT ED: Reports other Details: Positive bleeding tongue ; Denies sore throat Cardiovascular Cardiovascular: Denies chest pain Respiratory/Chest Respiratory/Chest: Denies cough or dyspnea Gastrointestinal Gastrointestinal: Denies abdominal pain, diarrhea, nausea or vomiting Genitourinary Genitourinary ED: Denies dysuria Musculoskeletal Musculoskeletal: Denies myalgias Integumentary Denies rash Neurologic Neurologic: Denies headache(s) Hematologic/Lymphatic Hematologic/Lymphatic: Reports easy bleeding and easy bruising EXAM Physical Exam Const Vital Signs: 03/12/21 22:34 Temperature 97.6 F L Temperature Source Temporal Pulse Rate 84 Respiratory Rate 16 Blood Pressure 197/91 H Blood Pressure Mean 126 Pulse Ox 98 Oxygen Delivery Method Room Air Positive well nourished and well developed General Appearance ED: well developed HEENT Reports moist mucous membranes HEENT Narrative: Patient has a avulsion of tissue along the right lateral portion of the tongue with spontaneous bleeding. No obvious airway edema or compromise noted Eyes PERRL and EOMs intact bilaterally Neck supple Resp normal respiratory effort and clear to auscultation bilaterally Cardio regular rate and regular rhythm Extremity normal to inspection Neuro oriented x3 and CN's II-XII intact bilaterally Sensorium / Orientation: alert Motor Exam: strength 5/5 throughout Psych mental status grossly normal Skin no rashes or lesions noted MDM MDM MDM Narrative Medical decision making narrative: Patient presented to the ER with stable vitals and spontaneous bleeding from the right lateral aspect of the tongue. She was given ice water to gargle and spit and this helped reduce the amount of bleeding. After this was performed I was able to assess the tongue and it is more of a skin avulsion/maceration with venous bleeding. I elected to take 5 silver nitrate sticks and performed direct cautery of the wound. After doing this the patient was watched in the ER and there was no return of spontaneous bleeding. She did report a history of blood transfusions and therefore elected to check a CBC on her. Her hemoglobin is actually 2 points above her previous value and her platelet count is normal. Therefore this time patient is not hemodynamically unstable she is not requiring a transfusion and there is no persistent bleeding and is therefore safe for discharge. Lab Data Attestation: I reviewed the patient's lab results. Labs: Laboratory Results - last 24 hr 03/12/21 23:22 WBC 7.9 RBC 3.89 L Hgb 11.4 L Hct 36.8 L MCV 94.6 MCH 29.3 MCHC 31.0 L RDW Std Deviation 58.5 H RDW Coeff of Velasquez 16.9 H Plt Count 258 MPV 9.8 Immature Gran % (Auto) 0.300 Neut % (Auto) 71.4 H Lymph % (Auto) 14.5 L [place] % (Auto) 8.5 Eos % (Auto) 4.7 Baso % (Auto) 0.6 Absolute Neuts (auto) 5.6 Absolute Lymphs (auto) 1.14 Nucleated RBC % 0 Discharge Plan Triage Chief Complaint: Other, Pain/Inj ED Provider: Brad Howard Dx/Rx/DC Orders Clinical Impression: Hemorrhage of tongue Instructions: First Aid: Bleeding Prescriptions: No Action nitroglycerin 0.4 mg tablet, sublingual 0.4 mg SUBLINGUAL Q5M PRN (Reason: Chest Pain) Qty: 25 RF: 1 metoprolol tartrate 100 mg tablet 100 mg PO BID Qty: 180 RF: 3 clopidogrel [Plavix] 75 mg tablet 75 mg PO DAILY RF: 0 Hold Instructions: Resume on 03/06/21. pantoprazole 40 MG tablet 40 mg PO DAILY RF: 0 ezetimibe 10 MG tablet 10 mg PO QHS RF: 0 acetaminophen 500 MG tablet 1,000 mg PO DAILY PRN PRN (Reason: Pain Or Fever) RF: 0 niacin (inositol niacinate) 500 MG capsule 1,000 mg PO BID RF: 0 furosemide [Lasix] 20 mg Tablet 10 mg PO DAILY PRN (Reason: Edema) RF: 0 aspirin 81 mg tablet,delayed release (DR/EC) 81 mg PO DAILY Qty: 1 RF: 0 Hold Instructions: Resume on 03/06/21. levocetirizine [Xyzal] 5 mg Tablet 5 mg PO QPM RF: 0 ferrous sulfate 325 MG tablet 325 mg PO BID RF: 0 Primary Care Provider: Daisha Ramirez Referrals: Daisha Ramirez DO [Primary Care Provider] - Activity Restrictions/Additional Instructions: If bleeding returns please take a washcloth and hold direct pressure to your tongue for a minimum of 15 minutes. If bleeding persists then you may return to the ER for repeat evaluation Disposition Disposition: Home, Self Care
[2021-03-12 23:38] LABS: Absolute Lymphocyte Count 1.14 X10^3/uL (0.83-4.51); Absolute Neutrophil Count 5.6 X10^3/uL (2.0-7.7); Basophil# 0.05 X10^3/uL; Basophil% 0.6 % (0-1); Eosinophil# 0.37 X10^3/uL; Eosinophils% 4.7 % (0-5); Hematocrit 36.8 % (37-47); Hemoglobin 11.4 g/dL (12.0-15.0); Lymphocyte # 1.14 X10^3/ul (0.83-4.51); Lymphocyte % 14.5 % (19-41); Mean Corpuscular Hgb 29.3 pg (27.0-32.0); Mean Corpuscular Volume 94.6 fL (81-99); Mean Platelet Vol. 9.8 fl (6.2-12.0); Monocyte# 0.67 X10^3/uL; Monocyte% 8.5 % (0-10); NRBC Flagged by Analyzer 0 % (0-5); Neutrophil # 5.63 X10^3/uL (2.7-7.7); Neutrophil % 71.4 % (47-70); Platelet Count 258 K/mm3 (150-450); RBC Distribution Width CV 16.9 % (11.6-14.6); RBC Distribution Width SD 58.5 fl (35.1-43.9); Red Blood Count 3.89 M/mm3 (4.2-5.4); White Blood Count 7.9 K/mm3 (4.4-11.0)
== END 2021-03-12 23:58 | disposition home or self-care (01) ==
PROVIDERS: Emergency Provider Emergency Medicine; PCP Internal Medicine
DX: K14.8 Other diseases of tongue (principal); E11.9 Type 2 diabetes mellitus without complications; E78.00 Pure hypercholesterolemia, unspecified; G47.33 Obstructive sleep apnea (adult) (pediatric); I10 Essential (primary) hypertension; I25.10 Atherosclerotic heart disease of native coronary artery without angina pectoris; I35.0 Nonrheumatic aortic (valve) stenosis; I48.0 Paroxysmal atrial fibrillation; K21.9 Gastro-esophageal reflux disease without esophagitis; Z86.73 Personal history of transient ischemic attack (TIA), and cerebral infarction without residual deficits; Z87.891 Personal history of nicotine dependence; Z79.82 Long term (current) use of aspirin; Z79.02 Long term (current) use of antithrombotics/antiplatelets
CPT/HCPCS: 36415; 85025

== ENCOUNTER → 2021-03-13 14:58 | Outpatient (CLI) | payer MEDICARE, SELFPAY ==
--- NOTE | 2021-03-13 15:02 | CT_ITS ---
STUDY: CTA NECK WITH CONTRAST REASON FOR EXAM: Female, 80 years old. CAROTID STENOSIS RADIATION DOSAGE (If Supplied By Facility): CTDIvol = ( 18.78 ) mGy, DLP = ( 361.38 ) mGycm TECHNIQUE: CT angiography with multi-detector data acquisition was performed from the aortic arch to the skull base following intravenous administration of IV 100mL [id number]-[id number]. MIP images were reconstructed from the axial data set. Post-processing of the angiographic images was performed, with multiplanar reformation and 3D reconstruction. Individualized dose optimization techniques were used for this CT. COMPARISON: 01/24/2016 FINDINGS: AORTIC ARCH: Normal visualized aortic arch. Normal origins of the brachiocephalic, left common carotid, and left subclavian arteries. RIGHT CAROTID ARTERIES: Mild calcific plaquing of the right common carotid artery (CCA). Severe calcific plaquing of the right common carotid bulb creating greater than 70% stenosis. Normal origin of the right internal carotid (ICA) artery without a hemodynamically significant stenosis. Normal visualized cervical portion of the right internal carotid artery. Normal origin of the right external carotid artery (ECA). LEFT CAROTID ARTERIES: Minor calcific plaquing of the left common carotid artery (CCA). Mild calcific plaquing of the left common carotid bulb. Normal origin of the left internal carotid (ICA) artery without a hemodynamically significant stenosis. Normal visualized cervical portion of the left internal carotid artery. Normal origin of the left external carotid artery (ECA). VERTEBRAL ARTERIES: Normal bilateral vertebral arteries. CT/CTA Neck W/WO Contrast IMPRESSION: Atherosclerotic disease more severe in the right with hemodynamically significant stenosis of the right carotid bulb utilizing NASCET criteria Electronically Signed: Michael Jiménez MD at 17:10 EST , Service support ,
== END ==
PROVIDERS: PCP Internal Medicine; Referring Provider Internal Medicine; Visit Provider Internal Medicine
DX: I65.29 Occlusion and stenosis of unspecified carotid artery (principal)
CPT/HCPCS: 70498; Q9967

== ENCOUNTER 2021-04-18 19:30 | Observation (INO) | payer MEDICARE, SELFPAY ==
[2021-04-18] VITALS (8 sets, daily range): BP systolic 115–168; BP diastolic 47–60; PULSE 67–78; RESP 15–24; TEMP 36.6–37.3; O2SAT 92–99; BMI 29.1; BMI 28.2
--- NOTE | 2021-04-18 20:04 | EKG12_ITS ---
Test Reason : DYSRYTHMIA Blood Pressure : / mmHG Vent. Rate : 073 BPM Atrial Rate : 073 BPM P-R Int : 164 ms QRS Dur : 112 ms QT Int : 410 ms P-R-T Axes : 067 -02 131 degrees QTc Int : 451 ms Normal sinus rhythm Septal infarct , age undetermined Incomplete left bundle branch block Abnormal ECG Confirmed by FAYE DELGADILLO, KAREN ([id number]), senior technical editor CHRISTIN BARTHOLOMEW ([id number]) on 04/21/2021 1:34:36 PM Referred By: LINA Confirmed By:KAREN MCKINNEY MD
[2021-04-18 20:21] LABS: Absolute Lymphocyte Count 1.81 X10^3/uL (0.83-4.51); Absolute Neutrophil Count 8.5 X10^3/uL (2.0-7.7); Basophil# 0.05 X10^3/uL; Basophil% 0.4 % (0-1); Eosinophil# 0.27 X10^3/uL; Eosinophils% 2.3 % (0-5); Hematocrit 23.2 % (37-47); Hemoglobin 6.9 g/dL (12.0-15.0); Lymphocyte # 1.81 X10^3/ul (0.83-4.51); Lymphocyte % 15.6 % (19-41); Mean Corp Hgb Conc 29.7 g/dL (32-36); Mean Corpuscular Hgb 29.2 pg (27.0-32.0); Mean Corpuscular Volume 98.3 fL (81-99); Monocyte# 0.89 X10^3/uL; Monocyte% 7.7 % (0-10); NRBC Flagged by Analyzer 0.5 % (0-5); Neutrophil # 8.47 X10^3/uL (2.7-7.7); Neutrophil % 73.1 % (47-70); Platelet Count 271 K/mm3 (150-450); RBC Distribution Width CV 16.8 % (11.6-14.6); RBC Distribution Width SD 57.1 fl (35.1-43.9); Red Blood Count 2.36 M/mm3 (4.2-5.4); White Blood Count 11.6 K/mm3 (4.4-11.0)
--- NOTE | 2021-04-18 20:25 | RAD_ITS ---
INDICATION: sob EXAMINATION/TECHNIQUE: X-RAY - XR Chest 1 View COMPARISON: 01/01/2021. FINDINGS: The lungs are clear. Sternal cerclage wires and vascular clips are present from a prior sternotomy and coronary artery bypass graft procedure (CABG). Tortuous and calcified thoracic aorta. No pleural effusion or pneumothorax. Degenerative changes of the thoracic spine. RAD/Chest 1 View (Portable) IMPRESSION: No acute radiographic abnormalities. Electronically Signed: Dayton Goldman MD at 22:01 EST Tel , Service support ,
[2021-04-18 20:32] LABS: International Normalized Ratio 1.1
[2021-04-18 20:33] LABS: Partial Thromboplast Time 27.8 Seconds (24.1-36.2)
--- NOTE | 2021-04-18 20:49 | EX.ED.DYSGE1 ---
HPI History of Present Illness Chief Complaint: Weakness Informant: patient Narrative Narrative: Patient is an 80-year-old female with history of anemia, follows with Dr. Carbajal through hematology, coronary artery disease, severe aortic stenosis and history of bovine valve replacement presenting with worsening chest pain, dyspnea on exertion and concern for recurrent anemia. Patient states for the past 2 days has had increased exercise intolerance and episodes of chest discomfort that are relieved with rest. She states she gets this when her hemoglobin is getting low. She denies any black or blood in her stool. She notes she has chronically dark stool because of iron. For the last month she has been receiving regular iron transfusions. She has had multiple scopes looking for source of anemia but does not know why. Her greaser helper states it is just the way she is. [facility] Medical History Acute blood loss anemia Atherosclerotic heart disease of [place] coronary artery without angina pectoris Atypical chest pain Bilateral carotid artery stenosis Bilateral carotid bruits Biliary colic CAD (coronary artery disease) Carotid stenosis Cholelithiasis Jayson's syndrome Effusion, left knee Essential hypertension Gallstones GERD (gastroesophageal reflux disease) History of left heart catheterization (LHC) (~07/14/20) HTN (hypertension) Iron deficiency anemia due to chronic blood loss Near syncope Nonrheumatic aortic (valve) stenosis [place] (obstructive sleep apnea) Osteoarthritis Paroxysmal atrial fibrillation PND (post-nasal drip) Psoriasis Pure hypercholesterolemia Sleep disorder Sleep disorder breathing SOB (shortness of breath) on exertion TIA (transient ischemic attack) Tobacco abuse Type 2 diabetes mellitus UGIB (upper gastrointestinal bleed) Home Medications ezetimibe 10 mg PO QHS 09/01/13 [History Last Taken 02/19/21] pantoprazole 40 mg PO DAILY 09/01/13 [History Last Taken 02/19/21] metoprolol tartrate 100 mg tablet 100 mg PO BID #180 tab 10/05/18 [Rx Last Taken 02/19/21] nitroglycerin 0.4 mg sublingual tablet 0.4 mg SUBLINGUAL Q5M PRN #25 tab 10/05/18 [Rx Last Taken 04/12/19] acetaminophen 1,000 mg PO DAILY PRN PRN 04/12/19 [History Last Taken 02/19/21] niacin (inositol niacinate) 1,000 mg PO BID 04/12/19 [History Last Taken 02/19/21] furosemide [Lasix] 10 mg PO DAILY PRN 12/15/20 [History Last Taken Unknown] aspirin 81 mg PO DAILY #1 tab 01/05/21 [Rx Last Taken 02/19/21] ferrous sulfate 325 mg PO BID 02/20/21 [History Last Taken 02/19/21] levocetirizine [Xyzal] 5 mg PO QPM 02/20/21 [History Last Taken 02/19/21] Allergy/AdvReac Type Severity Reaction Status Date / Time Sulfa (Sulfonamide Allergy Severe HEART Verified 04/18/21 19:33 Antibiotics) RACING Latex, Natural Rubber Allergy Rash, Verified 04/18/21 19:33 psioriasis amoxicillin [From Augmentin] AdvReac Nausea Verified 04/18/21 19:33 atorvastatin [From Lipitor] AdvReac Other Verified 04/18/21 19:33 clavulanic acid AdvReac Nausea Verified 04/18/21 19:33 [From Augmentin] Iodinated Contrast Media AdvReac Other Verified 04/18/21 19:33 [CONTRASTS] niacin AdvReac Other Verified 04/18/21 19:33 [From Niaspan Extended-Release] rosuvastatin [From Crestor] AdvReac Other Verified 04/18/21 19:33 turkey grease AdvReac Rash Uncoded 04/18/21 19:33 Family History Mother Heart disease Diabetes Father Heart disease Cancer Sister Cancer COPD (chronic obstructive pulmonary disease) Surgical History History of aortic valve replacement with bioprosthetic valve (~09/06/13) History of bilateral carotid endarterectomy History of coronary artery bypass surgery (~09/06/13) History of left mastectomy (~1998) History of right mastectomy (~1998) History of tubal ligation Social History household members: none housing: house Smoking Status: Former smoker how long ago did patient quit smokin second hand exposure: No alcohol intake: never substance use type: does not use caffeine: Yes Type: coffee Number of servings: 2 and tea what type of physical activity do you participate in: none franci/moravian: Temple seatbelt use: always do you feel safe at home: Yes ROS ROS ED Constitutional Constitutional ED: Denies chills or fever(s) Eyes Eyes: Denies change in vision ENT ENT ED: Denies ear pain or rhinorrhea Cardiovascular Cardiovascular: Reports chest pain; Denies palpitations Respiratory/Chest Respiratory/Chest: Reports dyspnea on exertion; Denies cough or dyspnea Gastrointestinal Gastrointestinal: Reports melena; Denies abdominal pain, nausea or vomiting Genitourinary Genitourinary ED: Reports urinary frequency; Denies dysuria or hematuria Musculoskeletal Musculoskeletal: Denies arthralgias or myalgias Integumentary Denies rash Neurologic Neurologic: Reports weakness; Denies headache(s) or paresthesias Psychiatric Psychiatric: Denies depression EXAM Physical Exam Const Vital Signs: 04/18/21 19:31 04/18/21 19:39 04/18/21 21:27 Temperature 98 F 97.8 F Temperature Source Temporal Temporal Pulse Rate 75 75 Respiratory Rate 15 16 Respiratory Effort Short of Breath Blood Pressure 168/60 H 160/60 H Blood Pressure Mean 96 93 Pulse Ox 98 96 Oxygen Delivery Method Room Air Positive well nourished and well developed General Appearance ED: well developed and pallor HEENT Reports moist mucous membranes Negative for tenderness Eyes PERRL and EOMs intact bilaterally General Eye ED: Yes pale conjunctiva Neck supple and no JVD Chest Wall inspection of chest normal Resp normal respiratory effort and clear to auscultation bilaterally Cardio regular rate and regular rhythm Heart Sounds: murmur GI normal to inspection, nondistended, normoactive bowel sounds and non-tender GI Narrative: Positive melena on rectal exam Palpation: soft Back/Spine no CVA tenderness Neuro oriented x3 Sensorium / Orientation: alert Motor Exam: general weakness Psych mental status grossly normal Skin Skin Narrative: Scattered rash on torso and extremities consistent with psoriasis General Skin Exam: pallor MDM MDM MDM Narrative Medical decision making narrative: Patient evaluated for chest pain on exertion what sounds like exertional angina. She states this happens when she is anemic. She reports dark stools but attributes that to her iron supplement. She is Hemoccult positive and has an acute anemia with a hemoglobin of 6.9. She is symptomatic. I suspect this is in fact melena. Patient is transfused 1 unit of packed red blood cells. She has an increase in her BUN to creatinine ratio again consistent with an upper GI bleed. She had an upper GI bleed requiring multiple transfusions of blood products 2 months ago. Her high since he troponin is normal. EKG is abnormal does not show any acute changes. Patient be admitted for further management of likely symptomatic anemia secondary to an upper GI bleed. She is given IV Protonix in the emergency room. She remains hemodynamically stable in the ER. Urinalysis does show 500 leuk esterase with 10-25 white blood cells, 0-5 squamous cells and no bacteria. We will send a culture but not treat at this time. Admitting physician is aware. Lab Data Attestation: I reviewed the patient's lab results. Labs: Laboratory Results - last 24 hr 04/18/21 04/18/21 04/18/21 20:10 20:10 20:10 WBC 11.6 H RBC 2.36 L Hgb 6.9 L Hct 23.2 L MCV 98.3 MCH 29.2 MCHC 29.7 L RDW Std Deviation 57.1 H RDW Coeff of Velasquez 16.8 H Plt Count 271 MPV 10.0 Immature Gran % (Auto) 0.900 Neut % (Auto) 73.1 H Lymph % (Auto) 15.6 L Ritchie % (Auto) 7.7 Eos % (Auto) 2.3 Baso % (Auto) 0.4 Absolute Neuts (auto) 8.5 H Absolute Lymphs (auto) 1.81 Nucleated RBC % 0.5 PT 14.0 INR 1.1 APTT 27.8 Sodium 143 Potassium 4.9 Chloride 110 H Carbon Dioxide 28.0 Anion Gap 5 BUN 35 H Creatinine 0.99 Estim Creat Clear Calc 35.85 Est GFR (MDRD) Af Amer 70 Est GFR (MDRD) Non-Af 58 L BUN/Creatinine Ratio 35.5 H Glucose 117 H Calcium 8.2 L Troponin I High Sens 15 B-Natriuretic Peptide Urine Color Urine Clarity Urine pH Ur Specific [place] Urine Protein Urine Glucose (UA) Urine Ketones Urine Occult Blood Urine Nitrite Urine Bilirubin Urine Urobilinogen Ur Leukocyte Esterase Urine RBC Urine WBC Ur Squamous Epith Cells Urine Bacteria Urine Mucus Blood Type Antibody Screen 04/18/21 04/18/21 04/18/21 20:10 20:10 20:50 WBC RBC Hgb Hct MCV MCH MCHC RDW Std Deviation RDW Coeff of Velasquez Plt Count MPV Immature Gran % (Auto) Neut % (Auto) Lymph % (Auto) Ritchie % (Auto) Eos % (Auto) Baso % (Auto) Absolute Neuts (auto) Absolute Lymphs (auto) Nucleated RBC % PT INR APTT Sodium Potassium Chloride Carbon Dioxide Anion Gap BUN Creatinine Estim Creat Clear Calc Est GFR (MDRD) Af Amer Est GFR (MDRD) Non-Af BUN/Creatinine Ratio Glucose Calcium Troponin I High Sens B-Natriuretic Peptide 252.5 H Urine Color Yellow Urine Clarity Sl. Cloudy Urine pH 6.5 Ur Specific [place] 1.010 Urine Protein 15 H Urine Glucose (UA) Normal Urine Ketones Negative Urine Occult Blood 50 H Urine Nitrite Negative Urine Bilirubin Negative Urine Urobilinogen Normal Ur Leukocyte Esterase 500 H Urine RBC 0 SEEN Urine WBC 10-25 SEEN Ur Squamous Epith Cells 0-5 SEEN Urine Bacteria 0 SEEN Urine Mucus 0 SEEN Blood Type A POSITIVE Antibody Screen NEGATIVE Radiography Chest X-Ray - ED: 1 View, Read by ED Physician and No Acute Disease Rhythm Strip Rhythm Strip: Sinus Rhythm Rate: 73 Ectopy: None EKG Initial EKG: Attestation: I personally reviewed and interpreted this EKG as follows: Interpretation: Sinus Rhythm Comments: Normal sinus rhythm rate of 73 Normal axis Normal intervals Incomplete left bundle branch No change compared to prior EKG Discharge Plan Triage Chief Complaint: Weakness ED Provider: Tiara Tai Dx/Rx/DC Orders Clinical Impression: Acute blood loss anemia, Coronary artery disease, Acute upper gastrointestinal bleeding Prescriptions: No Action nitroglycerin 0.4 mg tablet, sublingual 0.4 mg SUBLINGUAL Q5M PRN (Reason: Chest Pain) Qty: 25 RF: 1 metoprolol tartrate 100 mg tablet 100 mg PO BID Qty: 180 RF: 3 pantoprazole 40 MG tablet 40 mg PO DAILY RF: 0 ezetimibe 10 MG tablet 10 mg PO QHS RF: 0 acetaminophen 500 MG tablet 1,000 mg PO DAILY PRN PRN (Reason: Pain Or Fever) RF: 0 niacin (inositol niacinate) 500 MG capsule 1,000 mg PO BID RF: 0 furosemide [Lasix] 20 mg Tablet 10 mg PO DAILY PRN (Reason: Edema) RF: 0 aspirin 81 mg tablet,delayed release (DR/EC) 81 mg PO DAILY Qty: 1 RF: 0 Hold Instructions: Resume on 03/06/21. levocetirizine [Xyzal] 5 mg Tablet 5 mg PO QPM RF: 0 ferrous sulfate 325 MG tablet 325 mg PO BID RF: 0 Primary Care Provider: Daisha Ramirez Referrals: Daisha Ramirez DO [Primary Care Provider] - Disposition Disposition: Acute Care Hospital [facility]
--- NOTE | 2021-04-18 20:51 | PCM.HP.STD ---
HPI - General HPI Narrative SAMMY SOLOMON, is a 80 F with a significant history of bovine aortic valve replacement; peptic ulcer disease; angiodysplastic lesions of the duodenum who presents to emergency department with chest pressure. Has symptoms started a day before presentation and then it went away only to re-occur on the day of presentation after she has exerted herself by lifting some water bottles. Patient report that when she takes a couple of deep breaths her symptoms go away. She reported dyspnea with exertion to the emergency department doctor. However she is vague on dyspnea on exertion at the time of hospitalist's history taking. Emergency department doctor reported black stools that turned out to be occult positive. [facility] Medical History Acute blood loss anemia Atherosclerotic heart disease of [place] coronary artery without angina pectoris Atypical chest pain Bilateral carotid artery stenosis Bilateral carotid bruits Biliary colic CAD (coronary artery disease) Carotid stenosis Cholelithiasis Jayson's syndrome Effusion, left knee Essential hypertension Gallstones GERD (gastroesophageal reflux disease) History of left heart catheterization (LHC) (~07/14/20) HTN (hypertension) Iron deficiency anemia due to chronic blood loss Near syncope Nonrheumatic aortic (valve) stenosis [place] (obstructive sleep apnea) Osteoarthritis Paroxysmal atrial fibrillation PND (post-nasal drip) Psoriasis Pure hypercholesterolemia Sleep disorder Sleep disorder breathing SOB (shortness of breath) on exertion TIA (transient ischemic attack) Tobacco abuse Type 2 diabetes mellitus UGIB (upper gastrointestinal bleed) Home Medications ezetimibe 10 mg PO QHS 09/01/13 [History Last Taken 02/19/21] pantoprazole 40 mg PO DAILY 09/01/13 [History Last Taken 02/19/21] metoprolol tartrate 100 mg tablet 100 mg PO BID #180 tab 10/05/18 [Rx Last Taken 02/19/21] nitroglycerin 0.4 mg sublingual tablet 0.4 mg SUBLINGUAL Q5M PRN #25 tab 10/05/18 [Rx Last Taken 04/12/19] acetaminophen 1,000 mg PO DAILY PRN PRN 04/12/19 [History Last Taken 02/19/21] niacin (inositol niacinate) 1,000 mg PO BID 04/12/19 [History Last Taken 02/19/21] furosemide [Lasix] 10 mg PO DAILY PRN 12/15/20 [History Last Taken Unknown] aspirin 81 mg PO DAILY #1 tab 01/05/21 [Rx Last Taken 02/19/21] ferrous sulfate 325 mg PO BID 02/20/21 [History Last Taken 02/19/21] levocetirizine [Xyzal] 5 mg PO QPM 02/20/21 [History Last Taken 02/19/21] Allergy/AdvReac Type Severity Reaction Status Date / Time Sulfa (Sulfonamide Allergy Severe HEART Verified 04/18/21 19:33 Antibiotics) RACING Latex, Natural Rubber Allergy Rash, Verified 04/18/21 19:33 psioriasis amoxicillin [From Augmentin] AdvReac Nausea Verified 04/18/21 19:33 atorvastatin [From Lipitor] AdvReac Other Verified 04/18/21 19:33 clavulanic acid AdvReac Nausea Verified 04/18/21 19:33 [From Augmentin] Iodinated Contrast Media AdvReac Other Verified 04/18/21 19:33 [CONTRASTS] niacin AdvReac Other Verified 04/18/21 19:33 [From Niaspan Extended-Release] rosuvastatin [From Crestor] AdvReac Other Verified 04/18/21 19:33 turkey grease AdvReac Rash Uncoded 04/18/21 19:33 Family History Mother Heart disease Diabetes Father Heart disease Cancer Sister Cancer COPD (chronic obstructive pulmonary disease) Surgical History History of aortic valve replacement with bioprosthetic valve (~09/06/13) History of bilateral carotid endarterectomy History of coronary artery bypass surgery (~09/06/13) History of left mastectomy (~1998) History of right mastectomy (~1998) History of tubal ligation Social History household members: none housing: house Smoking Status: Former smoker how long ago did patient quit smokin second hand exposure: No alcohol intake: never substance use type: does not use caffeine: Yes Type: coffee Number of servings: 2 and tea what type of physical activity do you participate in: none franci/bahai: Mormonism seatbelt use: always do you feel safe at home: Yes ROS ROS Narrative Constitutional: Denies fever, chills, fatigue, anorexia and change in weight Eyes: Denies blurry vision, change in eye color, change in vision, discharge from eye(s), double vision, erythema, eye pain, loss of vision or other HEENT: Denies abnormal hearing, dysphagia, ear pain, epistaxis, headache(s), hearing loss, nasal congestion, nasal discharge, post nasal drip, sinus pressure, sore throat or other Cardiovascular: Reports chest pain. Denies palpitations. Respiratory/Chest: Denies cough, excessive phlegm production, shortness of breath with exertion and wheezing Gastrointestinal: Reports black stools. Denies abdominal pain, coffee ground emesis, constipation, diarrhea, dyspepsia, hematemesis, hematochezia, loose stools, nausea, vomiting or other Genitourinary: Denies burning urination, difficulty urinating, dysuria, hematuria, nocturia, urinary frequency, urinary hesitancy, urinary incontinence, urinary urgency or other Musculoskeletal: Denies arthralgias, back pain, joint pain, joint stiffness, joint swelling, myalgias, neck pain or other Neurologic: Denies abnormal gait, abnormal speech, confusion, disequilibrium, dizziness, focal weakness, headache(s), numbness, paresthesias, seizure-like activity, seizures, syncope, tingling, tremor(s) or other Psychiatric: Denies anxiety, depression, homicidal ideation, suicidal ideation or other Endocrinology: Denies change in body appearance, cold intolerance, excessive sweating, heat intolerance, polydipsia, polyuria or other Hematologic/Lymphatic: Denies anemia, easy bleeding, easy bruising, lymphadenopathy or other Integumentary: Denies rashes Allergic/Immunologic: Denies rhinitis, hives, eczema, asthma or other Vital Signs Vital Signs Vital Signs: 04/18/21 19:31 04/18/21 19:39 Temperature 98 F Temperature Source Temporal Pulse Rate 75 Respiratory Rate 15 Respiratory Effort Short of Breath Blood Pressure 168/60 H Blood Pressure Mean 96 Pulse Ox 98 Weight Weight: 72.3 kg Body Mass Index (BMI) 29.1 Physical Exam Narrative Physical exam: General: Well-nourished, well-developed. Head: Normocephalic, atraumatic, no tenderness Eyes: PERRLA, EOMI ENT, no trauma, moist mucous membranes, no rhinorrhea Neck: Nontender, full range of motion, no spinal tenderness, deformities, step-off CVS: Regular rate and rhythm. S1-S2 present. Murmur present. Respiratory : clear to auscultation bilaterally, chest wall nontender, no wheezing Abdomen: Soft, nontender, nondistended, normal bowel sounds, no masses : Deferred Back: Nontender, no CVA tenderness, no midline spinal tenderness, deformities, step-offs Extremities: Nontender full range of motion, no trauma Skin: Normal color, no trauma, abrasions Neuro: Alert, oriented, cranial nerves II through XII grossly intact. Psychiatry: Normal mood. Normal affect. Not depressed. Not anxious. Results Lab / Micro Data Result Diagrams: 04/18/21 20:10 04/18/21 20:10 Labs: Laboratory Results - last 24 hr 04/18/21 20:10: WBC 11.6 H, RBC 2.36 L, Hgb 6.9 L, Hct 23.2 L, MCV 98.3, MCH 29.2, MCHC 29.7 L, RDW Std Deviation 57.1 H, RDW Coeff of Velasquez 16.8 H, Plt Count 271, MPV 10.0, Immature Gran % (Auto) 0.900, Neut % (Auto) 73.1 H, Lymph % (Auto) 15.6 L, [place] % (Auto) 7.7, Eos % (Auto) 2.3, Baso % (Auto) 0.4, Absolute Neuts (auto) 8.5 H, Absolute Lymphs (auto) 1.81, Nucleated RBC % 0.5 04/18/21 20:10: PT 14.0, INR 1.1, APTT 27.8 Micro: Microbiology 04/18/21 20:10 Nasal Secretion SARS-CoV-2 Antigen (Rapid) - Final Assessment & Plan Assessment/Plan (1) Acute blood loss anemia: PLAN: Acute on chronic anemia Admit to [facility] on telemetry. Acute anemia secondary to acute blood loss anemia from upper GI bleed. Of labs showed that her hemoglobin on presentation was 6.9. Her hemoglobin on 03/26/2021 was 10.6 and on 03/12/2021 was 11.4. MCV is 98.3 showing normocytic anemia. BUN is 35 which is elevated from baseline. BUN over creatinine is 35.5. Elevated BUN points a picture of upper GI bleed. Manager Flight notes on 03/09/2021 was reviewed. Per notes patient had EGD performed on 02/20/2021. Findings included red blood in the lower third of the esophagus that was treated with bipolar cautery. Medium size had a hernia. Multiple bleeding angiodysplastic lesion in the duodenum, treated with argon plasma coagulation. In regard to chronic anemia patient follows up with Dr. Villafuerte, [facility] Binding Cutter/Oncologist and is on iron supplementation. Emergency department doctor ordered 1 unit of blood to be transfused and 2 more units to be held. Check H&H 1 hour after 1 unit of blood has been transfused. Check CBC in a.m. Hold aspirin. Received Protonix IV at the emergency department and continued. Hold home p.o. Protonix. No anticoagulants for DVT prophylaxis. N.p.o. after midnight. Consult pricing actuary. Protonix IV bid ordered. Abnormal urinalysis Emergent department labs reviewed showed urine protein of 15; urine occult blood of 50; urine leukocyte esterase of 500. Patient with a pyuria with urine white blood count of 30-25. Squamous cell is within range. Urine bacteria is within range. Reportedly patient used the bathroom several times at the emergency department. However patient denies any change in urinary habits. Urine culture ordered at the emergency department. If no change in urinary habits treatment may not be needed even if urine culture is positive. Hypertension Blood pressure is not within goal Metoprolol continued. Trend blood pressure and adjust blood pressure medications. DVT prophylaxis SCD ordered Charges/Coding Visit Charges Inpatient E&M: 63473 Init Hosp L3
[2021-04-18 20:53] LABS: Anion Gap 5 (5-15); BUN 35 mg/dL (7-18); BUN/Creat Ratio 35.5 RATIO (10-20); Calcium,Total 8.2 mg/dL (8.5-10.1); Chloride 110 mmol/L (98-107); Creatinine, Serum 0.99 mg/dL (0.55-1.02); EST Glomerular Filtration Rate 58 mL/min (>60); Est Glom Filt Rate - Afr Amer 70 mL/min (>60); Estimated Creatinine Clearance 35.85 ml/min; Glucose 117 mg/dL (74-106); Potassium 4.9 mmol/L (3.5-5.1); Sodium Level 143 mmol/L (136-145); Troponin-I HS 15 pg/mL (3.0-54.0)
[2021-04-18 20:54] LABS: Bacteria 0 SEEN /hpf (None Seen); Mucous, Urine 0 SEEN /hpf (<or=2+); Red Blood Cells-Urine 0 SEEN /hpf (0-5)
[2021-04-18 20:57] LABS: BNP,B-Type NATRIURETIC PEPTIDE 252.5 pg/mL (0-100)
[2021-04-18 20:59] LABS: Color, Urine Yellow (Yellow); Glucose, Dipstick Normal (Normal); Ketone-Dipstick Negative (Negative); Leukocyte Esterase-Dipstick 500 /ul (Negative); Nitrite-Dipstick Negative (Negative); Occult Blood-Urine 50 /ul (Negative); Protein-Dipstick 15 mg/dl (Negative); Urine Bilirubin Dipstick Negative (Negative); Urine Clarity Sl. Cloudy (Clear); Urine Urobilinogen Normal (Normal); Urine pH 6.5 (5.0 - 8.0)
[2021-04-18 21:06] LABS: Squamous Epithelial Cells - UA 0-5 SEEN /hpf (5-10); White Blood Cells 10-25 SEEN /hpf (0-5)
--- NOTE | 2021-04-18 22:53 | PCS.PANDOC ---
PANDEMIC DOCUMENTATION INITIATED: Date: 12/08/2020 Time: 190
[2021-04-18] MEDS: Metoprolol Tartrate 100 MG Tablet PO (23:18)
[2021-04-18] MEDS: Ezetimibe 10 MG Tablet PO (23:19)
[2021-04-19] VITALS (19 sets, daily range): BP systolic 112–150; BP diastolic 40–66; PULSE 63–85; RESP 18; TEMP 36.4–37.3; O2SAT 96–100
[2021-04-19 02:41] LABS: Hematocrit 22.1 % (37-47); Hemoglobin 7.3 g/dL (12.0-15.0)
--- NOTE | 2021-04-19 04:54 | NURSING ---
pt expressed concerns about insurance payments for her care. also expressed concerns about there being no cure for her and questioned why this hospital continues to do the same thing over and over. states that she recently received documents from her insurance company denying claims from the hospital. stated she felt like you guys aren't in any [place] to fix me this time since she was not seen by a specialist while in the emergency dept. this rn and oscar, charge nurse reassured pt that she is receiving appropriate care for her condition. reassured her that the hospital will continue to run tests and lab work to help determine an appropriate plan of care. encouraged her to discuss any billing concerns with the billing department of the hospital. addressed all of pt's questions at this time and reassured her. pt now resting comfortably in bed.
[2021-04-19 05:23] LABS: Absolute Lymphocyte Count 1.74 X10^3/uL (0.83-4.51); Absolute Neutrophil Count 7.6 X10^3/uL (2.0-7.7); Basophil# 0.04 X10^3/uL; Basophil% 0.4 % (0-1); Eosinophil# 0.27 X10^3/uL; Eosinophils% 2.6 % (0-5); Hemoglobin 7.6 g/dL (12.0-15.0); Lymphocyte # 1.74 X10^3/ul (0.83-4.51); Lymphocyte % 16.8 % (19-41); Mean Corp Hgb Conc 30.4 g/dL (32-36); Mean Corpuscular Hgb 29.7 pg (27.0-32.0); Mean Corpuscular Volume 97.7 fL (81-99); Mean Platelet Vol. 9.9 fl (6.2-12.0); Monocyte# 0.67 X10^3/uL; Monocyte% 6.5 % (0-10); NRBC Flagged by Analyzer 0 % (0-5); Neutrophil # 7.55 X10^3/uL (2.7-7.7); Platelet Count 214 K/mm3 (150-450); RBC Distribution Width CV 15.4 % (11.6-14.6); RBC Distribution Width SD 52.8 fl (35.1-43.9); Red Blood Count 2.56 M/mm3 (4.2-5.4); White Blood Count 10.3 K/mm3 (4.4-11.0)
[2021-04-19 05:56] LABS: Anion Gap 6 (5-15); BUN 32 mg/dL (7-18); BUN/Creat Ratio 35.1 RATIO (10-20); Chloride 111 mmol/L (98-107); Creatinine, Serum 0.91 mg/dL (0.55-1.02); EST Glomerular Filtration Rate 63 mL/min (>60); Est Glom Filt Rate - Afr Amer 76 mL/min (>60); Glucose 111 mg/dL (74-106); Potassium 4.1 mmol/L (3.5-5.1); Sodium Level 143 mmol/L (136-145)
--- NOTE | 2021-04-19 06:09 | NURSING ---
pt refused ferrous sulfate d/t red dye allergy (was not on her initial list of allergies, but now added). offered to get pt iron solution to take, she refuses at this time. dr guerrero aware.
[2021-04-19] MEDS: 0.9% Normal Saline 1,000 ML 100 ML IV (09:10)
--- NOTE | 2021-04-19 10:31 | PN.HOSP_ITS ---
Documented by User: Kyrie ROSA 04/19/21 10:46 Subjective Subjective Patient is an 80-year-old female comfortably resting in bed, alert and orient x3. Patient denies development of any new symptoms overnight. Does not appear in acute distress. Objective Data Objective Data Vital Signs: Vital Signs Temp Pulse Resp BP Pulse Ox 98.4 F 74 18 122/42 H 98 04/19/21 10:16 04/19/21 10:16 04/19/21 10:16 04/19/21 10:16 04/19/21 10:16 Oxygen Delivery Method Room Air Weight: 154 lb 5.177 oz Body Mass Index (BMI) 28.2 Intake & Output: Intake and Output for Last 24 Hours 04/17/21 04/18/21 04/19/21 23:59 23:59 23:59 Intake Total 35 35 600 / 600 Balance 35 / 35 600 / 600 Lab / Micro Data Result Diagrams: 04/19/21 12:00 04/19/21 05:12 Labs: Laboratory Results - last 24 hr 04/18/21 20:10: WBC 11.6 H, RBC 2.36 L, Hgb 6.9 L, Hct 23.2 L, MCV 98.3, MCH 29.2, MCHC 29.7 L, RDW Std Deviation 57.1 H, RDW Coeff of Velasquez 16.8 H, Plt Count 271, MPV 10.0, Immature Gran % (Auto) 0.900, Neut % (Auto) 73.1 H, Lymph % (Auto) 15.6 L, [place] % (Auto) 7.7, Eos % (Auto) 2.3, Baso % (Auto) 0.4, Absolute Neuts (auto) 8.5 H, Absolute Lymphs (auto) 1.81, Nucleated RBC % 0.5 04/18/21 20:10: PT 14.0, INR 1.1, APTT 27.8 04/18/21 20:10: Sodium 143, Potassium 4.9, Chloride 110 H, Carbon Dioxide 28.0, Anion Gap 5, BUN 35 H, Creatinine 0.99, Estim Creat Clear Calc 35.85, Est GFR (MDRD) Af Amer 70, Est GFR (MDRD) Non-Af 58 L, BUN/Creatinine Ratio 35.5 H, Glucose 117 H, Calcium 8.2 L, Troponin I High Sens 15 04/18/21 20:10: Blood Type A POSITIVE, Antibody Screen NEGATIVE 04/18/21 20:10: B-Natriuretic Peptide 252.5 H 04/18/21 20:10: Crossmatch See Detail 04/18/21 20:50: Urine Color Yellow, Urine Clarity Sl. Cloudy, Urine pH 6.5, Ur Specific [place] 1.010, Urine Protein 15 H, Urine Glucose (UA) Normal, Urine Ketones Negative, Urine Occult Blood 50 H, Urine Nitrite Negative, Urine Bilirubin Negative, Urine Urobilinogen Normal, Ur Leukocyte Esterase 500 H, Urine RBC 0 SEEN, Urine WBC 10-25 SEEN, Ur Squamous Epith Cells 0-5 SEEN, Urine Bacteria 0 SEEN, Urine Mucus 0 SEEN 04/19/21 02:26: Hgb 7.3 L, Hct 22.1 L 04/19/21 05:12: WBC 10.3, RBC 2.56 L, Hgb 7.6 L, Hct 25.0 L, MCV 97.7, MCH 29.7, MCHC 30.4 L, RDW Std Deviation 52.8 H, RDW Coeff of Velasquez 15.4 H, Plt Count 214, MPV 9.9, Immature Gran % (Auto) 0.700, Neut % (Auto) 73.0 H, Lymph % (Auto) 16.8 L, [place] % (Auto) 6.5, Eos % (Auto) 2.6, Baso % (Auto) 0.4, Absolute Neuts (auto) 7.6, Absolute Lymphs (auto) 1.74, Nucleated RBC % 0 04/19/21 05:12: Sodium 143, Potassium 4.1, Chloride 111 H, Carbon Dioxide 26.0, Anion Gap 6, BUN 32 H, Creatinine 0.91, Estim Creat Clear Calc 39.00, Est GFR (MDRD) Af Amer 76, Est GFR (MDRD) Non-Af 63, BUN/Creatinine Ratio 35.1 H, Glucose 111 H, Calcium 8.0 L Micro: Microbiology 04/18/21 21:05 Stool Stool Occult Blood (ORLY) - Final Occult Blood Positive 04/18/21 20:10 Nasal Secretion SARS-CoV-2 Antigen (Rapid) - Final Radiography Diagnostic Testing: Radiology Impression Chest X-Ray 04/18/21 20:25 IMPRESSION: No acute radiographic abnormalities. Electronically Signed: Dayton Goldman MD at 22:01 EST Tel , Service support , Rhythm Strip Rhythm Strip: Sinus Rhythm Rate: 73 Ectopy: None Physical Exam Const alert, oriented x3 and no apparent distress HEENT head/scalp atraumatic and moist oral mucous membranes Head and Scalp: normocephalic Eyes PERRL, EOMs intact bilaterally and conjunctivae normal Neck no lymphadenopathy, supple and no JVD Resp normal respiratory effort, no retractions, no use of accessory muscles and clear to auscultation bilaterally Cardio regular rate, regular rhythm, no murmurs and no JVD GI normal to inspection, nondistended, normoactive bowel sounds, soft to palpation and non-tender Extremity normal to inspection, full ROM and no clubbing, cyanosis or edema Skin no rashes or lesions noted, no wounds and skin turgor normal Neuro CN's II-XII intact bilaterally Psych affect normal Assessment & Plan Assessment/Plan (1) Acute blood loss anemia: PLAN: Day 1 Discharge planning: Current plan is for patient to discharge home when medically ready. 1) acute on chronic blood loss anemia secondary to suspected upper GI bleed Hemoglobin currently 7.6 after receiving 1 unit of PRBCs in the ED. Stool was oc cult positive on admission. GI has been consulted and has yet to evaluate patient. 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 Patient follows with Dr. Potts for chronic iron deficiency anemia. We will continue IV fluids and IV PPI while we wait for evaluation from GI, hold aspirin, Plavix and PPI. 2) abnormal UA Abnormal UA was noted in the ED on admission, although patient vital signs are stable and patient was without a leukocytosis. Currently awaiting urine culture results. 3) HTN Stable, continue metoprolol, hold daily Lasix due to low diastolic BP. 4) hyperlipidemia Continue ezetimibe and niacin. DVT prophylaxis - SCDs, chemoprophylaxis not indicated due to #1. Patient seen by Kyrie Wilson PA-C, under the supervision of Dr. Gomes. Documented by User: Dr. Ramya Gomes MD 04/19/21 13:16 Objective Data Lab / Micro Data Result Diagrams: 04/19/21 12:00 04/19/21 05:12 Charges/Coding Addendum Addendum: This patient was seen in conjunction with SHELLEY Blankenship. I have independently interviewed and examined the patient and reviewed pertinent hi storical, laboratory, and other data. Please refer to SHELLEY Blankenship's note for his patient's presentation, findings, and recommendations. I have reviewed and his note and concur with his documentation Patient was seen and examined. She denied any more melena or hematemesis. She has been kept n.p.o. Plavix is on hold. She was transfused 1 unit of packed RBC. She denied any chest pain she stated that she had chest discomfort not pain She is concerned about her gallstones. She stated that she was told she was high risk for surgery and [facility]. Physical Exam: Gen: Comfortable, not pale, not jaundiced CVS:HS I +II, regular, no murmurs RESP: Diminished at lung bases GI: BS present and normal, soft, nontender, no palpable organs EXT:No edema ASSESSMENT: 1. Acute on chronic blood loss anemia, likely secondary to upper GI loss 2. Hypertension 3. Status post bovine aortic valve replacement 4. Bilateral carotid artery stenosis 5. GERD Plan: Continue with IV PPI Continue to keep n.p.o. GI consulted Continue to monitor H&H Transfuse if hemoglobin less than 7 Visit Charges Inpatient E&M: 02887 Subs Hosp L2
[2021-04-19] MEDS: Metoprolol Tartrate 100 MG Tablet PO ×2 (10:46→21:58)
[2021-04-19 12:25] LABS: Hematocrit 22.7 % (37-47); Hemoglobin 6.9 g/dL (12.0-15.0)
--- NOTE | 2021-04-19 15:21 | CON.PCM.GI_ITS ---
HPI Consult Data Date of Consult: 04/19/21 HPI Narrative HPI Narrative: SAMMY SOLOMON, is a 80 F who presents with abdominal pain followed by diarrhea. She has a history of iron deficiency anemia. She also has a history of CAD status post CABG x2 and PTCA with stenting on aspirin and Plavix. Her last cardiac catheterization was in June 2020 and it showed no progression of coronary artery disease. She has a history of iron deficiency anemia and has been getting iron transfusions. She recently underwent an upper and lower endoscopy about 3 years ago. Her upper and lower endoscopy did not find any signs of bleeding. I was called to see the patient because she had episode of coffee-ground emesis and multiple episodes of lower GI bleeding. She does not have any pain at this time. Her hemoglobin was 5.3 and she received 2 units of packed red blood cells. Her previous hemoglobin was 7.4. She received 4 iron transfusions for a ferritin of 7. She is being followed by hematology. She underwent upper endoscopy myself and was discovered to have multiple AVMs that were seen in her upper GI tract. I saw her recently in office and she was feeling okay. However she recently became more fatigued and weak. She had her hemoglobin checked and was down about 2 g since being seen as an outpatient. [facility] Medical History Acute blood loss anemia Atherosclerotic heart disease of [place] coronary artery without angina pectoris Atypical chest pain Bilateral carotid artery stenosis Bilateral carotid bruits Biliary colic CAD (coronary artery disease) Carotid stenosis Cholelithiasis Jayson's syndrome Effusion, left knee Essential hypertension Gallstones GERD (gastroesophageal reflux disease) History of left heart catheterization (LHC) (~07/14/20) HTN (hypertension) Iron deficiency anemia due to chronic blood loss Near syncope Nonrheumatic aortic (valve) stenosis [place] (obstructive sleep apnea) Osteoarthritis Paroxysmal atrial fibrillation PND (post-nasal drip) Psoriasis Pure hypercholesterolemia Sleep disorder Sleep disorder breathing SOB (shortness of breath) on exertion TIA (transient ischemic attack) Tobacco abuse Type 2 diabetes mellitus UGIB (upper gastrointestinal bleed) Home Medications ezetimibe 10 mg PO QHS 09/01/13 [History Last Taken 04/17/21] pantoprazole 40 mg PO BID 09/01/13 [History Last Taken 04/18/21] metoprolol tartrate 100 mg tablet 100 mg PO BID #180 tab 10/05/18 [Rx Last Taken 04/18/21] nitroglycerin 0.4 mg sublingual tablet 0.4 mg SUBLINGUAL Q5M PRN #25 tab 10/05/18 [Rx Last Taken 04/12/19] acetaminophen 1,000 mg PO DAILY PRN PRN 04/12/19 [History Last Taken 02/19/21] niacin (inositol niacinate) 1,000 mg PO BID 04/12/19 [History Last Taken 04/18/21] furosemide [Lasix] 10 mg PO DAILY PRN 12/15/20 [History Last Taken Unknown] ferrous sulfate 325 mg PO BID 02/20/21 [History Last Taken 04/18/21] levocetirizine [Xyzal] 5 mg PO QPM 02/20/21 [History Last Taken 04/17/21] aspirin 81 mg PO QHS 04/18/21 [History Last Taken 04/16/21] clopidogrel 75 mg PO DAILY 04/18/21 [History Last Taken 04/18/21] Allergy/AdvReac Type Severity Reaction Status Date / Time Sulfa (Sulfonamide Allergy Severe HEART Verified 04/18/21 19:33 Antibiotics) RACING Latex, Natural Rubber Allergy Rash, Verified 04/18/21 19:33 psioriasis amoxicillin [From Augmentin] AdvReac Nausea Verified 04/18/21 19:33 atorvastatin [From Lipitor] AdvReac Other Verified 04/18/21 19:33 clavulanic acid AdvReac Nausea Verified 04/18/21 19:33 [From Augmentin] Iodinated Contrast Media AdvReac Other Verified 04/18/21 19:33 [CONTRASTS] niacin AdvReac Other Verified 04/18/21 19:33 [From Niaspan Extended-Release] red dye AdvReac NEEDS Verified 04/19/21 06:02 FOLLOW-UP rosuvastatin [From Crestor] AdvReac Other Verified 04/18/21 19:33 turkey grease AdvReac Rash Uncoded 04/18/21 19:33 Family History Mother Heart disease Diabetes Father Heart disease Cancer Sister Cancer COPD (chronic obstructive pulmonary disease) Surgical History History of aortic valve replacement with bioprosthetic valve (~09/06/13) History of bilateral carotid endarterectomy History of coronary artery bypass surgery (~09/06/13) History of left mastectomy (~1998) History of right mastectomy (~1998) History of tubal ligation Social History household members: none housing: house Smoking Status: Former smoker how long ago did patient quit smokin second hand exposure: No alcohol intake: never substance use type: does not use caffeine: Yes Type: coffee Number of servings: 2 and tea what type of physical activity do you participate in: none franci/catholic: Mu-Ism seatbelt use: always do you feel safe at home: Yes ROS Review of Systems ROS Unobtainable: other Constitutional Constitutional: Denies fatigue, fever(s), poor appetite, weight gain or weight loss ENT HEENT: Denies mouth lesions Cardiovascular Cardiovascular: Denies abdominal bloating, abdominal edema or abdominal pain Respiratory/Chest Respiratory/Chest: Denies change in mental status, change in phlegm color, chest congestion or chest tightness Gastrointestinal Gastrointestinal: Denies belching, bloating, change in bowel habits, change in stool character, chewing difficulty, coffee ground emesis, constipation, cramping, diarrhea, dyspepsia, dysphagia, early satiety, excessive flatus, fecal incontinence, heartburn, hematemesis, hematochezia, hemorrhoids, loose stools, melena, nausea, odynophagia, rectal bleeding, tenesmus, vomiting or weight changes Genitourinary Genitourinary: Denies abdominal discomfort, burning urination or itching Musculoskeletal Musculoskeletal: Reports as per HPI; Denies muscle weakness or myalgias Integumentary Integumentary: Denies jaundice Neurologic Neurologic: Denies lack of coordination or weakness Psychiatric Psychiatric: Denies confusion, depression, memory loss, mood swings, paranoia or suicidal ideation Endocrine Endocrinology: Denies systems reviewed and no addt'l complaints, except as documented Hematologic/Lymphatic Hematologic/Lymphatic: Denies anemia, easy bleeding, easy bruising or lymphadenopathy Allergic/Immunologic Allergic/Immunologic: Denies systems reviewed and no addt'l complaints, except as documented Physical Exam Const alert General Appearance: cooperative Orientation / Consciousness: oriented to person HEENT hearing grossly normal bilaterally Head and Scalp: normal to inspection Face and Sinus: face symmetric Nose: external nose normal Mouth: oral and palatal mucosa normal Eyes conjunctivae normal General Eye: normal appearance of both eyes Neck full ROM General: normal visual inspection Lymph Lymphatic: no lymphadenopathy noted Chest inspection of chest normal and palpation of chest normal Chest: symmetrical chest wall rise Resp normal respiratory effort Effort and Inspection: able to speak in complete sentences Cardio regular rate GI non-distended Percussion: normal to percussion Rectal Exam: deferred Neuro Speech: speech normal Gait (Neuro): normal gait Lab / Micro Data Result Diagrams: 04/19/21 12:00 04/19/21 05:12 Labs: Laboratory Results - last 24 hr 04/18/21 20:10: WBC 11.6 H, RBC 2.36 L, Hgb 6.9 L, Hct 23.2 L, MCV 98.3, MCH 29.2, MCHC 29.7 L, RDW Std Deviation 57.1 H, RDW Coeff of Velasquez 16.8 H, Plt Count 271, MPV 10.0, Immature Gran % (Auto) 0.900, Neut % (Auto) 73.1 H, Lymph % (Auto) 15.6 L, [place] % (Auto) 7.7, Eos % (Auto) 2.3, Baso % (Auto) 0.4, Absolute Neuts (auto) 8.5 H, Absolute Lymphs (auto) 1.81, Nucleated RBC % 0.5 04/18/21 20:10: PT 14.0, INR 1.1, APTT 27.8 04/18/21 20:10: Sodium 143, Potassium 4.9, Chloride 110 H, Carbon Dioxide 28.0, Anion Gap 5, BUN 35 H, Creatinine 0.99, Estim Creat Clear Calc 35.85, Est GFR (MDRD) Af Amer 70, Est GFR (MDRD) Non-Af 58 L, BUN/Creatinine Ratio 35.5 H, Glucose 117 H, Calcium 8.2 L, Troponin I High Sens 15 04/18/21 20:10: Blood Type A POSITIVE, Antibody Screen NEGATIVE 04/18/21 20:10: B-Natriuretic Peptide 252.5 H 04/18/21 20:10: Crossmatch See Detail 04/18/21 20:10: Crossmatch See Detail 04/18/21 20:50: Urine Color Yellow, Urine Clarity Sl. Cloudy, Urine pH 6.5, Ur Specific [place] 1.010, Urine Protein 15 H, Urine Glucose (UA) Normal, Urine Ketones Negative, Urine Occult Blood 50 H, Urine Nitrite Negative, Urine Bilirubin Negative, Urine Urobilinogen Normal, Ur Leukocyte Esterase 500 H, Urine RBC 0 SEEN, Urine WBC 10-25 SEEN, Ur Squamous Epith Cells 0-5 SEEN, Urine Bacteria 0 SEEN, Urine Mucus 0 SEEN 04/19/21 02:26: Hgb 7.3 L, Hct 22.1 L 04/19/21 05:12: WBC 10.3, RBC 2.56 L, Hgb 7.6 L, Hct 25.0 L, MCV 97.7, MCH 29.7, MCHC 30.4 L, RDW Std Deviation 52.8 H, RDW Coeff of [place]quez 15.4 H, Plt Count 214, MPV 9.9, Immature Gran % (Auto) 0.700, Neut % (Auto) 73.0 H, Lymph % (Auto) 16.8 L, [place] % (Auto) 6.5, Eos % (Auto) 2.6, Baso % (Auto) 0.4, Absolute Neuts (auto) 7.6, Absolute Lymphs (auto) 1.74, Nucleated RBC % 0 04/19/21 05:12: Sodium 143, Potassium 4.1, Chloride 111 H, Carbon Dioxide 26.0, Anion Gap 6, BUN 32 H, Creatinine 0.91, Estim Creat Clear Calc 39.00, Est GFR (MDRD) Af Amer 76, Est GFR (MDRD) Non-Af 63, BUN/Creatinine Ratio 35.1 H, Glucose 111 H, Calcium 8.0 L 04/19/21 12:00: Hgb 6.9 L, Hct 22.7 L Micro: Microbiology 04/18/21 20:50 Urine, Clean Catch Urine Culture - Preliminary Staphylococcus aureus 04/18/21 21:05 Stool Stool Occult Blood (ORLY) - Final Occult Blood Positive 04/18/21 20:10 Nasal Secretion SARS-CoV-2 Antigen (Rapid) - Final Rhythm Strip Rhythm Strip: Sinus Rhythm Rate: 73 Ectopy: None Radiology Impression Chest X-Ray 04/18/21 20:25 IMPRESSION: No acute radiographic abnormalities. Electronically Signed: Dayton Goldman MD at 22:01 EST Tel , Service support , Assessment & Plan Assessment/Plan (1) Acute blood loss anemia: PLAN: Patient BUN/creatinine ratio was elevated possibly secondary to upper GI bleed. However her small bowel is not been evaluated. She needs to take aspirin and Plavix because of her history of TIAs and strokes. She also has a history of CABG with aortic valve replacement back in 2013. She was on Xarelto but due to history of severe anemia and presumed acute on chronic GI blood loss that has been held. I would recommend transfuse 2 units of packed red blood cells, check iron studies and she will need a capsule endoscopy as an outpatient. She has not seen any blood at this time. If her hemoglobin continues to drop then she may benefit from an upper or lower endoscopy to see if we can evaluate her small bowel as much as possible while she is in the hospital. She wants to go home because she has 3 cats that no one can care for. (2) Paroxysmal atrial fibrillation: PLAN: At this time she is in normal sinus rhythm. Management as per primary team. Charges/Coding Visit Charges Inpatient E&M: 39858 Init Hosp L3
[2021-04-19] MEDS: Ezetimibe 10 MG Tablet PO (21:58)
[2021-04-20] VITALS (8 sets, daily range): BP systolic 109–147; BP diastolic 48–79; PULSE 67–81; RESP 18; TEMP 35.9–36.6; O2SAT 97–98
[2021-04-20 02:22] LABS: Absolute Neutrophil Count 6.4 X10^3/uL (2.0-7.7); Basophil# 0.05 X10^3/uL; Basophil% 0.6 % (0-1); Eosinophil# 0.48 X10^3/uL; Eosinophils% 5.3 % (0-5); Hematocrit 32.4 % (37-47); Hemoglobin 10.3 g/dL (12.0-15.0); Lymphocyte % 16.6 % (19-41); Mean Corp Hgb Conc 31.8 g/dL (32-36); Mean Corpuscular Volume 94.5 fL (81-99); Mean Platelet Vol. 9.6 fl (6.2-12.0); Monocyte% 6.6 % (0-10); NRBC Flagged by Analyzer 0 % (0-5); Neutrophil # 6.37 X10^3/uL (2.7-7.7); Neutrophil % 70.2 % (47-70); Platelet Count 173 K/mm3 (150-450); RBC Distribution Width CV 15.9 % (11.6-14.6); RBC Distribution Width SD 52.3 fl (35.1-43.9); Red Blood Count 3.43 M/mm3 (4.2-5.4); White Blood Count 9.1 K/mm3 (4.4-11.0)
[2021-04-20 02:40] LABS: ALB/GLOB Ratio 1.1 RATIO (0.9-2.4); AST(SGOT) 18 U/L (15-37); Alanine Aminotransfer ALT/SGPT 15 U/L (13-56); Albumin, Serum 2.9 g/dL (3.2-5.0); Alkaline Phosphatase 48 U/L (45-117); Anion Gap 3 (5-15); BUN 21 mg/dL (7-18); BUN/Creat Ratio 24.3 RATIO (10-20); Calcium,Total 8.2 mg/dL (8.5-10.1); Chloride 114 mmol/L (98-107); Creatinine, Serum 0.86 mg/dL (0.55-1.02); EST Glomerular Filtration Rate 67 mL/min (>60); Est Glom Filt Rate - Afr Amer 81 mL/min (>60); Estimated Creatinine Clearance 41.26 ml/min; Globulin 2.6 g/dL (2.2-4.2); Glucose 89 mg/dL (74-106); Potassium 4.3 mmol/L (3.5-5.1); Protein, Total 5.5 g/dL (6.4-8.2); Sodium Level 143 mmol/L (136-145)
[2021-04-20 08:14] LABS: Hematocrit 33.3 % (37-47); Hemoglobin 10.3 g/dL (12.0-15.0)
--- NOTE | 2021-04-20 08:54 | CASEMGMT ---
Social Work Note Per production line questions, pt has completed LW, not provided copy and pt unable to bring in copy. Pt has not completed HCPOA and declined wanting information. Mamta Mcgowan CIRCLE BEVELER, SKID ROAD WORKER
[2021-04-20] MEDS: Metoprolol Tartrate 100 MG Tablet PO (09:09)
[2021-04-20] MEDS: 0.9% Saline Lock 10 ML Syringe IV (09:17)
--- NOTE | 2021-04-20 10:44 | PCM.DC ---
Discharge Instructions Diet Discharge Diet: No restrictions Activity Discharge Activity: Return to Normal Activity Weight Bearing Status: Weight bearing as tolerated Dressing / Incision Call your doctor if you observe: Fever of 101 or Higher, Numbness or Tingling, Shortness of breath, Dizziness, Chest pain, Increased palpitations (irregular heartbeat) and Calf discomfort Follow Up Care Please Follow Up With: Primary care provider When: Within the next two weeks. Test Results: Test results from this visit will be discussed in further detail at your follow-up appointment, if applicable. Discharge Plan Admission Admit Date/Time: 04/18/21 21:15 Primary Reason for Your Visit: GI bleed Attending Provider: Sanjay Avalos Primary Care Provider: Daisha Ramirez Consulting Providers: Bairon Montague Discharge Orders/Prescriptions Prescriptions: Continued nitroglycerin 0.4 mg tablet, sublingual 0.4 mg SUBLINGUAL Q5M PRN (Reason: Chest Pain) Qty: 25 RF: 1 metoprolol tartrate 100 mg tablet 100 mg PO BID Qty: 180 RF: 3 pantoprazole 40 MG tablet 40 mg PO BID RF: 0 ezetimibe 10 MG tablet 10 mg PO QHS RF: 0 acetaminophen 500 MG tablet 1,000 mg PO DAILY PRN PRN (Reason: Pain Or Fever) RF: 0 niacin (inositol niacinate) 500 MG capsule 1,000 mg PO BID RF: 0 furosemide [Lasix] 20 mg Tablet 10 mg PO DAILY PRN (Reason: Edema) RF: 0 levocetirizine [Xyzal] 5 mg Tablet 5 mg PO QPM RF: 0 ferrous sulfate 325 MG tablet 325 mg PO BID RF: 0 clopidogrel 75 mg tablet 75 mg PO DAILY RF: 0 Hold Instructions: Hold until appointment with Dr. Montague. Held aspirin 81 mg Capsule 81 mg PO QHS RF: 0 Hold Instructions: Hold until appointment with Dr. Montague. Other Ambulatory Orders: CBC W/Diff, Automated (Routine) Timeframe: 1 Week Facility: [facility] - Location: Laboratory Ordered By: Kyrie ROSA Referrals / Follow Up: Daisha Ramirez DO [Primary Care Provider] - Within 2 Weeks Bairon Montague DO [STAFF PHYSICIAN] - See Referral Note (Proceed with your schedule May 09, 2020 appointment. ) Disposition Disposition (needs filled in before D/C Order can be placed): Home, Self Care
--- NOTE | 2021-04-20 12:28 | CASEMGMT ---
RN CM NOTE: To room to complete initial RN CM assessment. Pt has already been discharged. Hank CHANDN RN CM
--- NOTE | 2021-04-20 13:43 | DS.PCM_ITS ---
Documented by User: Kyrie ROSA 04/20/21 14:03 Providers Date of Admission: 04/18/21 Primary Care Physician: Dr. Daisha Ramirez, DO Consultations 04/18/21 22:38 Consult: Gastroenterology Routine Consulting Provider: Bairon Montague Reason for Consult: ABLA EMERGENT Consult: No MD Notified: Yes Date Notified: 04/19/21 Time Notified: 07:34 Method of Notification: via cortext Reason For Visit: SYMPTOMATIC ANEMIA; POSSIBLE ABLA Diagnosis Discharge Diagnosis (1) Acute blood loss anemia: Status: Acute Code(s): D62 - Acute posthemorrhagic anemia (2) Paroxysmal atrial fibrillation: Status: Chronic Code(s): I48.0 - Paroxysmal atrial fibrillation Medications at Discharge Home Medications ezetimibe 10 mg PO QHS 09/01/13 pantoprazole 40 mg PO BID 09/01/13 metoprolol tartrate 100 mg tablet 100 mg PO BID #180 tab 10/05/18 nitroglycerin 0.4 mg sublingual tablet 0.4 mg SUBLINGUAL Q5M PRN #25 tab 10/05/18 acetaminophen 1,000 mg PO DAILY PRN PRN 04/12/19 niacin (inositol niacinate) 1,000 mg PO BID 04/12/19 furosemide [Lasix] 10 mg PO DAILY PRN 12/15/20 ferrous sulfate 325 mg PO BID 02/20/21 levocetirizine [Xyzal] 5 mg PO QPM 02/20/21 aspirin 81 mg PO QHS 04/18/21 clopidogrel 75 mg PO DAILY 04/18/21 Hospital Course Summary of Care Provided Minutes Spent on Discharge: 35 Hospital Course: Disposition: Patient to be discharged home. 1) acute on chronic blood loss anemia secondary to suspected upper GI bleed Stable, hemoglobin currently 10. Patient received 3 units of PRBCs during admission. Patient was seen by Dr. Montague, who she follows with as an outpatient. Dr. Montague would like to proceed with capsule endoscopy as an outpatient. Patient to continue oral PPI, continue Plavix and hold aspirin until follow-up with Dr. Montague. 2) abnormal UA Abnormal UA was noted in the ED on admission, although patient vital signs are stable and patient was without a leukocytosis. Urine cultures demonstrate staph aureus. Patient declined antibiotics at time of discharge and would prefer to follow-up with her primary care provider. 3) HTN Stable, continue metoprolol, hold daily Lasix due to low diastolic BP. 4) hyperlipidemia Continue ezetimibe and niacin. Patient seen by Kyrie Wilson PA-C, under the supervision of Dr. Avalos. Physical Exam Narrative Patient is an 80-year-old female comfortably resting in bed, alert and orient x 3. Patient denies development of any new symptoms overnight. Does not appear in acute distress. Const alert, oriented x3 and no apparent distress HEENT normocephalic, head/scalp atraumatic and hearing grossly normal bilaterally Eyes PERRL, EOMs intact bilaterally and conjunctivae normal Neck no lymphadenopathy, supple and no JVD Resp normal respiratory effort, no retractions, no use of accessory muscles and clear to auscultation bilaterally Cardio regular rate, regular rhythm, no murmurs and no JVD GI normal to inspection, nondistended, normoactive bowel sounds, soft to palpation and non-tender Extremity normal to inspection, full ROM and no clubbing, cyanosis or edema Skin no rashes or lesions noted, no wounds and skin turgor normal Neuro CN's II-XII intact bilaterally Psych affect normal Weight / BMI Weight Weight: 154 lb 5.177 oz Body Mass Index (BMI) 28.2 ABG / Lab / Microbiology Data Result Diagrams: 04/20/21 08:02 04/20/21 02:15 Laboratory: Laboratory Results - last 24 hr 04/18/21 20:10: Crossmatch See Detail 04/18/21 20:10: Crossmatch See Detail 04/20/21 02:15: WBC 9.1, RBC 3.43 L, Hgb 10.3 L, Hct 32.4 L, MCV 94.5, MCH 30.0, MCHC 31.8 L, RDW Std Deviation 52.3 H, RDW Coeff of Velasquez 15.9 H, Plt Count 173, MPV 9.6, Immature Gran % (Auto) 0.700, Neut % (Auto) 70.2 H, Lymph % (Auto) 16.6 L, [place] % (Auto) 6.6, Eos % (Auto) 5.3 H, Baso % (Auto) 0.6, Absolute Neuts (auto) 6.4, Absolute Lymphs (auto) 1.50, Nucleated RBC % 0 04/20/21 02:15: Sodium 143, Potassium 4.3, Chloride 114 H, Carbon Dioxide 26.0, Anion Gap 3 L, BUN 21 H, Creatinine 0.86, Estim Creat Clear Calc 41.26, Est GFR (MDRD) Af Amer 81, Est GFR (MDRD) Non-Af 67, BUN/Creatinine Ratio 24.3 H, Glucose 89, Calcium 8.2 L, Total Bilirubin 1.20 H, AST 18, ALT 15, Alkaline Phosphatase 48, Total Protein 5.5 L, Albumin 2.9 L, Globulin 2.6, Albumin/Globulin Ratio 1.1 04/20/21 08:02: Hgb 10.3 L, Hct 33.3 L Microbiology: Microbiology 04/18/21 20:50 Urine, Clean Catch Urine Culture - Final Staphylococcus aureus 04/18/21 21:05 Stool Stool Occult Blood (ORLY) - Final Occult Blood Positive 04/18/21 20:10 Nasal Secretion SARS-CoV-2 Antigen (Rapid) - Final D/C Instructions Discharge Diet: No restrictions Weight Bearing Status: Weight bearing as tolerated Call your doctor if you observe: Fever of 101 or Higher, Numbness or Tingling, Shortness of breath, Dizziness, Chest pain, Increased palpitations (irregular heartbeat) and Calf discomfort Please Follow Up With: Primary care provider When: Within the next two weeks. Meaningful Use Info Meaningful Use Diagnoses (Choose all that apply): None applicable Discharge Plan Admission Admit Date/Time: 04/18/21 21:15 Primary Reason for Your Visit: GI bleed Attending Provider: Sanjay Avalos Primary Care Provider: Daisha Ramirez Consulting Providers: Bairon Montague Discharge Orders/Prescriptions Prescriptions: Continued nitroglycerin 0.4 mg tablet, sublingual 0.4 mg SUBLINGUAL Q5M PRN (Reason: Chest Pain) Qty: 25 RF: 1 metoprolol tartrate 100 mg tablet 100 mg PO BID Qty: 180 RF: 3 pantoprazole 40 MG tablet 40 mg PO BID RF: 0 ezetimibe 10 MG tablet 10 mg PO QHS RF: 0 acetaminophen 500 MG tablet 1,000 mg PO DAILY PRN PRN (Reason: Pain Or Fever) RF: 0 niacin (inositol niacinate) 500 MG capsule 1,000 mg PO BID RF: 0 furosemide [Lasix] 20 mg Tablet 10 mg PO DAILY PRN (Reason: Edema) RF: 0 levocetirizine [Xyzal] 5 mg Tablet 5 mg PO QPM RF: 0 ferrous sulfate 325 MG tablet 325 mg PO BID RF: 0 clopidogrel 75 mg tablet 75 mg PO DAILY RF: 0 Hold Instructions: Hold until appointment with Dr. Montague. Held aspirin 81 mg Capsule 81 mg PO QHS RF: 0 Hold Instructions: Hold until appointment with Dr. Montague. Other Ambulatory Orders: CBC W/Diff, Automated (Routine) Timeframe: 1 Week Facility: [facility] - Location: Laboratory Ordered By: Kyrie ROSA Referrals / Follow Up: Daisha Ramirez DO [Primary Care Provider] - Within 2 Weeks Bairon Montague DO [STAFF PHYSICIAN] - See Referral Note (Proceed with your schedule May 09, 2020 appointment. ) Disposition Disposition (needs filled in before D/C Order can be placed): Home, Self Care Documented by User: Dr. Sanjay Avalos DO 04/20/21 20:28 Providers Date of Admission: 04/18/21 Date of Discharge: 04/20/21 Reason For Visit: SYMPTOMATIC ANEMIA; POSSIBLE ABLA Medications at Discharge Home Medications ezetimibe 10 mg PO QHS 09/01/13 pantoprazole 40 mg PO BID 09/01/13 metoprolol tartrate 100 mg tablet 100 mg PO BID #180 tab 10/05/18 nitroglycerin 0.4 mg sublingual tablet 0.4 mg SUBLINGUAL Q5M PRN #25 tab acetaminophen 1,000 mg PO DAILY PRN PRN 04/12/19 niacin (inositol niacinate) 1,000 mg PO BID 04/12/19 furosemide [Lasix] 10 mg PO DAILY PRN 12/15/20 ferrous sulfate 325 mg PO BID 02/20/21 levocetirizine [Xyzal] 5 mg PO QPM 02/20/21 aspirin 81 mg PO QHS 04/18/21 clopidogrel 75 mg PO DAILY 04/18/21 ABG / Lab / Microbiology Data Result Diagrams: 04/20/21 08:02 04/20/21 02:15 Discharge Plan Admission Admit Date/Time: 04/18/21 21:15 Primary Reason for Your Visit: GI bleed Attending Provider: Sanjay Avalos Primary Care Provider: Daisha Ramirez Consulting Providers: Bairon Montague Discharge Orders/Prescriptions Prescriptions: Continued nitroglycerin 0.4 mg tablet, sublingual 0.4 mg SUBLINGUAL Q5M PRN (Reason: Chest Pain) Qty: 25 RF: 1 metoprolol tartrate 100 mg tablet 100 mg PO BID Qty: 180 RF: 3 pantoprazole 40 MG tablet 40 mg PO BID RF: 0 ezetimibe 10 MG tablet 10 mg PO QHS RF: 0 acetaminophen 500 MG tablet 1,000 mg PO DAILY PRN PRN (Reason: Pain Or Fever) RF: 0 niacin (inositol niacinate) 500 MG capsule 1,000 mg PO BID RF: 0 furosemide [Lasix] 20 mg Tablet 10 mg PO DAILY PRN (Reason: Edema) RF: 0 levocetirizine [Xyzal] 5 mg Tablet 5 mg PO QPM RF: 0 ferrous sulfate 325 MG tablet 325 mg PO BID RF: 0 clopidogrel 75 mg tablet 75 mg PO DAILY RF: 0 Hold Instructions: Hold until appointment with Dr. Montague. Held aspirin 81 mg Capsule 81 mg PO QHS RF: 0 Hold Instructions: Hold until appointment with Dr. Montague. Other Ambulatory Orders: CBC W/Diff, Automated (Routine) Timeframe: 1 Week Facility: [facility] - Location: Laboratory Ordered By: Kyrie ROSA Referrals / Follow Up: Daisha Ramirez DO [Primary Care Provider] - Within 2 Weeks Bairon Montague DO [STAFF PHYSICIAN] - See Referral Note (Proceed with your schedule May 09, 2020 appointment. ) Disposition Disposition (needs filled in before D/C Order can be placed): Home, Self Care Charges/Coding Addendum Addendum: Patient was seen and examined independently of Kyrie Wilson, patient's hemoglobin today appears stable. Please change #2 discharge diagnosis to read: Bacteriuria with staph aureus On examination she appeared in good health and spirits, she does not appear to be in any distress. Vital signs as documented. Skin warm and dry and without overt rashes. Neck without JVD, thyroid appears normal, trachea is midline, neck is supple. Lungs clear, normal air movement was noted. Heart exam notable for regular rhythm, normal sounds and absence of murmurs, rubs or gallops. Abdomen unremarkable and without evidence of organomegaly, masses, or abdominal aortic enlargement, bowel sounds are present in all 4 quadrants, no abdominal tenderness was noted. Extremities nonedematous, no cyanosis was noted, no clubbing was noted. Neuro: Cranial nerves II through XII are grossly intact, no focal motor deficits were noted, sensation to light touch and pinprick is intact, motor exam 5/5 throughout. Psych: Patient is alert and oriented x3, she does not appear anxious or depressed, she does not appear agitated. Patient appears stable for discharge at this time, I have reviewed Kyrie Wilson's discharge summary including his medical assessment and plan of care and endorse it. Visit Charges Inpatient E&M: 76797 Disch Hosp
== END 2021-04-20 12:17 | disposition home or self-care (01) | DRG 812 ==
LOC: ED 21:35 → MS3 04-19 07:07
PROVIDERS: Internal Medicine; Admitting Provider Hospitalist; Emergency Provider Emergency Medicine; PCP Internal Medicine; Visit Provider Internal Medicine
DX: D62 Acute posthemorrhagic anemia (principal); J44.9 Chronic obstructive pulmonary disease, unspecified; I48.0 Paroxysmal atrial fibrillation; I24.1 Dressler's syndrome; E11.9 Type 2 diabetes mellitus without complications; I25.10 Atherosclerotic heart disease of native coronary artery without angina pectoris; I65.23 Occlusion and stenosis of bilateral carotid arteries; E78.5 Hyperlipidemia, unspecified; I35.0 Nonrheumatic aortic (valve) stenosis; K92.2 Gastrointestinal hemorrhage, unspecified; K21.9 Gastro-esophageal reflux disease without esophagitis; Z79.02 Long term (current) use of antithrombotics/antiplatelets; Z87.891 Personal history of nicotine dependence; R82.71 Bacteriuria; I10 Essential (primary) hypertension; Z95.3 Presence of xenogenic heart valve; G47.33 Obstructive sleep apnea (adult) (pediatric); A49.01 Methicillin susceptible Staphylococcus aureus infection, unspecified site; M19.90 Unspecified osteoarthritis, unspecified site; Z82.49 Family history of ischemic heart disease and other diseases of the circulatory system; Z95.1 Presence of aortocoronary bypass graft; Z79.899 Other long term (current) drug therapy
CPT/HCPCS: 36415; 36430; 71045; 80048; 80053; 81001; 82274; 83880; 84484; 85014; 85018; 85025; 85610; 85730; 86850; 86900; 86901; 86920; 86921; 87077; 87086; 87088; 87186; 87426; 93005; 96361; 96365; 96366; 99218; 99285; J7030; J7040; J7050; P9016; A4216; G0378; J3490

== ENCOUNTER 2021-05-01 11:47 | Outpatient (CLI) | payer MEDICARE, SELFPAY ==
[2021-05-01 12:45] LABS: Absolute Lymphocyte Count 0.82 X10^3/uL (0.83-4.51); Absolute Neutrophil Count 4.1 X10^3/uL (2.0-7.7); Basophil# 0.02 X10^3/uL; Basophil% 0.3 % (0-1); Eosinophils% 1.7 % (0-5); Hematocrit 34.8 % (37-47); Hemoglobin 10.5 g/dL (12.0-15.0); Lymphocyte # 0.82 X10^3/ul (0.83-4.51); Mean Corp Hgb Conc 30.2 g/dL (32-36); Mean Corpuscular Hgb 28.8 pg (27.0-32.0); Mean Corpuscular Volume 95.6 fL (81-99); Mean Platelet Vol. 10.2 fl (6.2-12.0); Monocyte# 0.82 X10^3/uL; NRBC Flagged by Analyzer 0 % (0-5); Neutrophil # 4.08 X10^3/uL (2.7-7.7); Neutrophil % 69.5 % (47-70); Platelet Count 231 K/mm3 (150-450); RBC Distribution Width CV 15.8 % (11.6-14.6); RBC Distribution Width SD 54.9 fl (35.1-43.9); Red Blood Count 3.64 M/mm3 (4.2-5.4); White Blood Count 5.9 K/mm3 (4.4-11.0)
== END 2021-05-01 23:59 | disposition short-term general hospital (02) ==
PROVIDERS: PCP Internal Medicine; Referring Provider Internal Medicine; Visit Provider Internal Medicine
DX: D50.0 Iron deficiency anemia secondary to blood loss (chronic) (principal)
CPT/HCPCS: 36415; 85025

== ENCOUNTER 2021-05-05 11:54 | Emergency (ER) | payer MEDICARE, SELFPAY ==
[2021-05-05 11:55] VITALS: BP 161/126; PULSE 70; RESP 16; TEMP 37; O2SAT 98; BMI 28.8
--- NOTE | 2021-05-05 12:13 | EDS_ITS ---
HPI History of Present Illness Chief Complaint: Nosebleed Narrative Narrative: Patient presents with right epistaxis that started just prior to arrival. No other symptoms. No trauma. No cough or congestion recently. No chest pain or shortness of breath. [facility] Medical History Acute blood loss anemia Atherosclerotic heart disease of [place] coronary artery without angina pectoris Atypical chest pain Bilateral carotid artery stenosis Bilateral carotid bruits Biliary colic CAD (coronary artery disease) Carotid stenosis Cholelithiasis Jayson's syndrome Effusion, left knee Essential hypertension Gallstones GERD (gastroesophageal reflux disease) History of left heart catheterization (LHC) (~07/14/20) HTN (hypertension) Iron deficiency anemia due to chronic blood loss Near syncope Nonrheumatic aortic (valve) stenosis [place] (obstructive sleep apnea) Osteoarthritis Paroxysmal atrial fibrillation PND (post-nasal drip) Psoriasis Pure hypercholesterolemia Sleep disorder Sleep disorder breathing SOB (shortness of breath) on exertion TIA (transient ischemic attack) Tobacco abuse Type 2 diabetes mellitus UGIB (upper gastrointestinal bleed) Home Medications ezetimibe 10 mg PO QHS 09/01/13 [History Last Taken 04/17/21] pantoprazole 40 mg PO BID 09/01/13 [History Last Taken 04/18/21] metoprolol tartrate 100 mg tablet 100 mg PO BID #180 tab 10/05/18 [Rx Last Taken 04/18/21] nitroglycerin 0.4 mg sublingual tablet 0.4 mg SUBLINGUAL Q5M PRN #25 tab 10/05/18 [Rx Last Taken 04/12/19] acetaminophen 1,000 mg PO DAILY PRN PRN 04/12/19 [History Last Taken 02/19/21] niacin (inositol niacinate) 1,000 mg PO BID 04/12/19 [History Last Taken 04/18/21] furosemide [Lasix] 10 mg PO DAILY PRN 12/15/20 [History Last Taken Unknown] ferrous sulfate 325 mg PO BID 02/20/21 [History Last Taken 04/18/21] levocetirizine [Xyzal] 5 mg PO QPM 02/20/21 [History Last Taken 04/17/21] aspirin 81 mg PO QHS 04/18/21 [History Last Taken 04/16/21] clopidogrel 75 mg PO DAILY 04/18/21 [History Last Taken 04/18/21] Allergy/AdvReac Type Severity Reaction Status Date / Time Sulfa (Sulfonamide Allergy Severe HEART Verified 05/05/21 12:54 Antibiotics) RACING Latex, Natural Rubber Allergy Rash, Verified 05/05/21 12:54 psioriasis amoxicillin [From Augmentin] AdvReac Nausea Verified 05/05/21 12:54 atorvastatin [From Lipitor] AdvReac Other Verified 05/05/21 12:54 clavulanic acid AdvReac Nausea Verified 05/05/21 12:54 [From Augmentin] Iodinated Contrast Media AdvReac Other Verified 05/05/21 12:54 [CONTRASTS] niacin AdvReac Other Verified 05/05/21 12:54 [From Niaspan Extended-Release] red dye AdvReac NEEDS Verified 05/05/21 12:54 FOLLOW-UP rosuvastatin [From Crestor] AdvReac Other Verified 05/05/21 12:54 turkey grease AdvReac Rash Uncoded 05/05/21 12:54 Family History Mother Heart disease Diabetes Father Heart disease Cancer Sister Cancer COPD (chronic obstructive pulmonary disease) Surgical History History of aortic valve replacement with bioprosthetic valve (~09/06/13) History of bilateral carotid endarterectomy History of coronary artery bypass surgery (~09/06/13) History of left mastectomy (~1998) History of right mastectomy (~1998) History of tubal ligation Social History household members: none housing: house Smoking Status: Former smoker how long ago did patient quit smokin second hand exposure: No alcohol intake: never substance use type: does not use caffeine: Yes Type: coffee Number of servings: 2 and tea what type of physical activity do you participate in: none 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 Epistaxis as in HPI Neck: No neck pain Cardiovascular: No chest pain Respiratory: No shortness of breath or cough Gastrointestinal: No abdominal pain, nausea vomiting or diarrhea Skin: No rash Hematologic: No easy bleeding or easy bruising EXAM Physical Exam Narrative Exam Narrative: Physical exam General: Well nourished, Well developed, No Acute Distress Head: Normocephalic, Atraumatic Eyes: Conjunctiva not pale ENT: Right anterior plexus 1 mm point bleed it seems to have subsided. There is some slight excoriation throughout. Neck: Supple, Nontender, No lymphadenopathy Cardiovascular: Regular rate, Regular rhythm Respiratory: No distress, CTA bilaterally Const Vital Signs: 05/05/21 11:55 Temperature 98.6 F Temperature Source Temporal Pulse Rate 70 Respiratory Rate 16 Blood Pressure 161/126 H Blood Pressure Mean 137 Pulse Ox 98 Oxygen Delivery Method Room Air MDM MDM MDM Narrative Medical decision making narrative: Procedure note: Epistaxis management Verbal consent Patient has an anterior plexus small bleed about 1 to 2 mm, silver nitrate was used to cauterize. Patient was observed afterwards for about an hour she did not have any rebleeding. Patient tolerated procedure well. MDM: Patient was cauterized, she is no longer bleeding she was observed I will discharge her in stable condition. Discharge Plan Triage Chief Complaint: Nosebleed ED Provider: Fredi Andrade Dx/Rx/DC Orders Clinical Impression: Epistaxis Instructions: ED Epistaxis (Adult) Prescriptions: No Action nitroglycerin 0.4 mg tablet, sublingual 0.4 mg SUBLINGUAL Q5M PRN (Reason: Chest Pain) Qty: 25 RF: 1 metoprolol tartrate 100 mg tablet 100 mg PO BID Qty: 180 RF: 3 pantoprazole 40 MG tablet 40 mg PO BID RF: 0 ezetimibe 10 MG tablet 10 mg PO QHS RF: 0 acetaminophen 500 MG tablet 1,000 mg PO DAILY PRN PRN (Reason: Pain Or Fever) RF: 0 niacin (inositol niacinate) 500 MG capsule 1,000 mg PO BID RF: 0 furosemide [Lasix] 20 mg Tablet 10 mg PO DAILY PRN (Reason: Edema) RF: 0 levocetirizine [Xyzal] 5 mg Tablet 5 mg PO QPM RF: 0 ferrous sulfate 325 MG tablet 325 mg PO BID RF: 0 clopidogrel 75 mg tablet 75 mg PO DAILY RF: 0 Hold Instructions: Hold until appointment with Dr. Montague. aspirin 81 mg Capsule 81 mg PO QHS RF: 0 Hold Instructions: Hold until appointment with Dr. Montague. Primary Care Provider: Daisha Ramirez Referrals: Daisha Ramirez DO [Primary Care Provider] - 2 Days Disposition Disposition: Home, Self Care
[2021-05-05] MEDS: Silver Nitrate (BKC) 1 EACH TOPICAL (13:06)
[2021-05-05 13:28] VITALS: BP 123/65; PULSE 82; RESP 15; O2SAT 98
== END 2021-05-05 13:28 | disposition home or self-care (01) ==
PROVIDERS: Emergency Provider Emergency Medicine; PCP Internal Medicine; Visit Provider Emergency Medicine
DX: R04.0 Epistaxis (principal); E11.9 Type 2 diabetes mellitus without complications; E78.00 Pure hypercholesterolemia, unspecified; Z87.891 Personal history of nicotine dependence; I10 Essential (primary) hypertension; I25.10 Atherosclerotic heart disease of native coronary artery without angina pectoris; Z23 Encounter for immunization; U07.1 COVID-19
CPT/HCPCS: 30901; 99283; J7050; M0243; A4216; Q0244

== ENCOUNTER 2021-05-05 13:44 | Outpatient (CLI) | payer MEDICARE, SELFPAY ==
[2021-05-05 13:55] VITALS: BP 149/63; PULSE 68; RESP 16; TEMP 37; O2SAT 99; BMI 27.4
[2021-05-05] MEDS: 0.9% Saline Lock 10 ML Syringe IV (14:04)
[2021-05-05 14:36] VITALS: BP 135/46; PULSE 88; RESP 16; TEMP 36.9; O2SAT 100
[2021-05-05 15:35] VITALS: BP 177/55; PULSE 78; RESP 16; TEMP 36.8; O2SAT 95
== END 2021-05-05 23:59 | disposition home or self-care (01) ==
LOC: MS3OUT 13:46 → MS3 13:47
PROVIDERS: PCP Internal Medicine; Visit Provider Nurse Practitioner Adult Health
DX: Z23 Encounter for immunization (principal); U07.1 COVID-19
CPT/HCPCS: J7050; M0243; A4216; Q0244

== ENCOUNTER 2021-05-25 12:58 | Emergency (ER) | payer MEDICARE, SELFPAY ==
[2021-05-25 12:58] VITALS: BP 119/44; PULSE 64; RESP 16; TEMP 36; O2SAT 100; BMI 27.4
[2021-05-25] MEDS: Silver Nitrate (BKC) 1 EACH TOPICAL (13:37)
[2021-05-25 14:21] LABS: Hematocrit 27.8 % (37-47); Hemoglobin 8.3 g/dL (12.0-15.0); Mean Corp Hgb Conc 29.9 g/dL (32-36); Mean Corpuscular Hgb 28.3 pg (27.0-32.0); Mean Corpuscular Volume 94.9 fL (81-99); Platelet Count 302 K/mm3 (150-450); RBC Distribution Width CV 17.2 % (11.6-14.6); RBC Distribution Width SD 58.8 fl (35.1-43.9); Red Blood Count 2.93 M/mm3 (4.2-5.4); White Blood Count 7.8 K/mm3 (4.4-11.0)
--- NOTE | 2021-05-25 14:57 | EDS_ITS ---
HPI History of Present Illness Chief Complaint: Wound Informant: patient Onset/Context/Timing Onset: Yesterday Context: Sudden Onset Timing: Intermittent Quality: bleeding Location: chronic lesion on tongue Current Severity: Gone Maximum Severity: Moderate Worsened by: nothing Relieved by: nothing Associated Symptoms Associated Symptoms: tired this AM Narrative Narrative: Patient states she has a chronic lesion on her tongue that started last year after eating a [employer] and cutting it. She states it spontaneously started bleeding yesterday and she called her PCPs nurse very tired this morning as a result of the bleeding yesterday according to her, so she was referred here to the ER for cauterization and blood counts. She takes aspirin and clopidogrel due to a history of heart disease and peripheral arterial disease. [facility] Medical History Acute blood loss anemia Atherosclerotic heart disease of [place] coronary artery without angina pectoris Atypical chest pain Bilateral carotid artery stenosis Bilateral carotid bruits Biliary colic CAD (coronary artery disease) Carotid stenosis Cholelithiasis Jayson's syndrome Effusion, left knee Essential hypertension Gallstones GERD (gastroesophageal reflux disease) History of left heart catheterization (LHC) (~07/14/20) HTN (hypertension) Iron deficiency anemia due to chronic blood loss Near syncope Nonrheumatic aortic (valve) stenosis [place] (obstructive sleep apnea) Osteoarthritis Paroxysmal atrial fibrillation PND (post-nasal drip) Psoriasis Pure hypercholesterolemia Sleep disorder Sleep disorder breathing SOB (shortness of breath) on exertion TIA (transient ischemic attack) Tobacco abuse Type 2 diabetes mellitus UGIB (upper gastrointestinal bleed) Home Medications ezetimibe 10 mg PO QHS 09/01/13 [History Last Taken 04/17/21] pantoprazole 40 mg PO BID 09/01/13 [History Last Taken 04/18/21] metoprolol tartrate 100 mg tablet 100 mg PO BID #180 tab 10/05/18 [Rx Last Taken 04/18/21] nitroglycerin 0.4 mg sublingual tablet 0.4 mg SUBLINGUAL Q5M PRN #25 tab 10/05/18 [Rx Last Taken 04/12/19] acetaminophen 1,000 mg PO DAILY PRN PRN 04/12/19 [History Last Taken 02/19/21] niacin (inositol niacinate) 1,000 mg PO BID 04/12/19 [History Last Taken 04/18/21] furosemide [Lasix] 10 mg PO DAILY PRN 12/15/20 [History Last Taken Unknown] ferrous sulfate 325 mg PO DAILY 02/20/21 [History Last Taken 04/18/21] levocetirizine [Xyzal] 5 mg PO QPM 02/20/21 [History Last Taken 04/17/21] aspirin 81 mg PO QHS 04/18/21 [History Last Taken 04/16/21] clopidogrel 75 mg PO DAILY 04/18/21 [History Last Taken 04/18/21] azithromycin 250 mg PO DAILY 05/05/21 [History Last Taken Unknown] Allergy/AdvReac Type Severity Reaction Status Date / Time Sulfa (Sulfonamide Allergy Severe HEART Verified 05/25/21 13:36 Antibiotics) RACING Latex, Natural Rubber Allergy Rash, Verified 05/25/21 13:36 psioriasis amoxicillin [From Augmentin] AdvReac Nausea Verified 05/25/21 13:36 atorvastatin [From Lipitor] AdvReac Other Verified 05/25/21 13:36 clavulanic acid AdvReac Nausea Verified 05/25/21 13:36 [From Augmentin] Iodinated Contrast Media AdvReac Other Verified 05/25/21 13:36 [CONTRASTS] niacin AdvReac Other Verified 05/25/21 13:36 [From Niaspan Extended-Release] red dye AdvReac NEEDS Verified 05/25/21 13:36 FOLLOW-UP rosuvastatin [From Crestor] AdvReac Other Verified 05/25/21 13:36 turkey grease AdvReac Rash Uncoded 05/25/21 13:36 Family History Mother Heart disease Diabetes Father Heart disease Cancer Sister Cancer COPD (chronic obstructive pulmonary disease) Surgical History History of aortic valve replacement with bioprosthetic valve (~09/06/13) History of bilateral carotid endarterectomy History of coronary artery bypass surgery (~09/06/13) History of left mastectomy (~1998) History of right mastectomy (~1998) History of tubal ligation Social History household members: none housing: house Smoking Status: Former smoker how long ago did patient quit smokin second hand exposure: No alcohol intake: never substance use type: does not use caffeine: Yes Type: coffee Number of servings: 2 and tea what type of physical activity do you participate in: none franci/uatsdin: Yazidism seatbelt use: always do you feel safe at home: Yes ROS ROS ED Constitutional Constitutional ED: Reports fatigue and malaise; Denies chills or fever(s) Eyes Eyes: Denies change in vision or diplopia ENT ENT ED: Reports as per HPI and other Details: Bleeding from tongue, currently resolved ; Denies rhinorrhea or sore throat Cardiovascular Cardiovascular: Denies chest pain or palpitations Respiratory/Chest Respiratory/Chest: Denies cough or dyspnea Gastrointestinal Gastrointestinal: Denies abdominal pain, diarrhea, nausea or vomiting Genitourinary Genitourinary ED: Denies dysuria or hematuria Musculoskeletal Musculoskeletal: Denies back pain or neck pain Integumentary Denies abscess or rash Neurologic Neurologic: Denies headache(s), paresthesias or weakness Psychiatric Psychiatric: Denies anxiety or suicidal thoughts EXAM Physical Exam Const Vital Signs: 05/25/21 12:58 Temperature 96.8 F L Temperature Source Temporal Pulse Rate 64 Respiratory Rate 16 Blood Pressure 119/44 L Blood Pressure Mean 69 Pulse Ox 100 Oxygen Delivery Method Room Air Positive well nourished and well developed General Appearance ED: well developed and NAD HEENT Reports moist mucous membranes HEENT Narrative: Small purple papule right mid tongue no active bleeding or tenderness. normocephalic and atraumatic Eyes PERRL and EOMs intact bilaterally Neck full ROM and supple Resp normal respiratory effort and clear to auscultation bilaterally Cardio regular rate and regular rhythm Extremity normal to inspection General Extremety ED: Negative for edema, pulses abnormal or tenderness General Extremity: Negative for edema or pulses abnormal Neuro oriented x3, CN's II-XII intact bilaterally and no sensory deficits noted Sensorium / Orientation: awake and alert Motor Exam: strength 5/5 throughout Skin no rashes or lesions noted and no wounds MDM MDM MDM Narrative Medical decision making narrative: Cauterize the patient's tongue as requested. Hemoglobin 8.3. This is down from her last reading at 10, she states that she really did not hemorrhage from this tongue lesion that much so this may be chronic, she does not have any symptoms of GI bleeding right now or bleeding from anywhere else, but she states that my hemoglobin goes down and they do not know why she has had scopes in order to assess for this, she is walking the halls upset that we have not let her go yet, clearly doing very well and stable for discharge and outpatient follow-up. Lab Data Attestation: I reviewed the patient's lab results. Labs: Laboratory Results - last 24 hr 05/25/21 14:15 WBC 7.8 RBC 2.93 L Hgb 8.3 L Hct 27.8 L MCV 94.9 MCH 28.3 MCHC 29.9 L RDW Std Deviation 58.8 H RDW Coeff of Velasquez 17.2 H Plt Count 302 MPV 10.0 Procedures Other Procedures Procedure(s): Cauterization tongue lesion: Using silver nitrate stick after verbal consent from the patient, lightly cauterized the small papular tongue lesion on the dorsum of the right mid tongue, that the patient states the bleeding was coming from. No active bleeding. This was done without com plication, tolerated well. On reevaluation, no bleeding at all. Discharge Plan Triage Chief Complaint: Wound ED Provider: Blayne Zapata Dx/Rx/DC Orders Clinical Impression: Anemia, Hemorrhage of tongue Instructions: Anemia Prescriptions: No Action nitroglycerin 0.4 mg tablet, sublingual 0.4 mg SUBLINGUAL Q5M PRN (Reason: Chest Pain) Qty: 25 RF: 1 metoprolol tartrate 100 mg tablet 100 mg PO BID Qty: 180 RF: 3 pantoprazole 40 MG tablet 40 mg PO BID RF: 0 ezetimibe 10 MG tablet 10 mg PO QHS RF: 0 acetaminophen 500 MG tablet 1,000 mg PO DAILY PRN PRN (Reason: Pain Or Fever) RF: 0 niacin (inositol niacinate) 500 MG capsule 1,000 mg PO BID RF: 0 furosemide [Lasix] 20 mg Tablet 10 mg PO DAILY PRN (Reason: Edema) RF: 0 levocetirizine [Xyzal] 5 mg Tablet 5 mg PO QPM RF: 0 ferrous sulfate 325 MG tablet 325 mg PO DAILY RF: 0 clopidogrel 75 mg tablet 75 mg PO DAILY RF: 0 Hold Instructions: Hold until appointment with Dr. Montague. aspirin 81 mg Capsule 81 mg PO QHS RF: 0 Hold Instructions: Hold until appointment with Dr. Montague. azithromycin 250 mg tablet 250 mg PO DAILY RF: 0 Primary Care Provider: Daisha Ramirez Referrals: Daisha Ramirez DO [Primary Care Provider] - 3-5 Days (call for appt) Disposition Disposition: Home, Self Care
--- NOTE | 2021-05-25 15:09 | CM.ED ---
Social Work Telephone call from Adult Protective Services, Giovani. Giovani reports that there is an open case for patient. Giovani inquired about plan for patient. This social media coordinator noting that patient was just discharged from the ED to the community. Giovani inquired about alert/orientation status of patient while in ED. Per treating ED nurse, patient appeared alert/oriented. Giovani thanked this social media coordinator. Delaney ANDERSON, ANUJ-S
== END 2021-05-25 15:05 | disposition home or self-care (01) ==
PROVIDERS: Emergency Provider Emergency Medicine; PCP Internal Medicine; Visit Provider Emergency Medicine
DX: D64.9 Anemia, unspecified (principal); E11.9 Type 2 diabetes mellitus without complications; K14.8 Other diseases of tongue; Z87.891 Personal history of nicotine dependence; I25.10 Atherosclerotic heart disease of native coronary artery without angina pectoris; E78.00 Pure hypercholesterolemia, unspecified; I10 Essential (primary) hypertension; G47.33 Obstructive sleep apnea (adult) (pediatric)
CPT/HCPCS: 36415; 85027; 99282

== ENCOUNTER 2021-05-26 10:06 | Emergency (ER) | payer MEDICARE, SELFPAY ==
[2021-05-26 10:08] VITALS: BP 137/55; PULSE 57; RESP 18; TEMP 36.6; O2SAT 100; BMI 26.6
[2021-05-26] MEDS: Silver Nitrate (BKC) 1 EACH TOPICAL (10:39)
[2021-05-26 10:51] LABS: Absolute Neutrophil Count 5.2 X10^3/uL (2.0-7.7); Basophil# 0.04 X10^3/uL; Basophil% 0.6 % (0-1); Eosinophil# 0.25 X10^3/uL; Eosinophils% 3.6 % (0-5); Hematocrit 27.5 % (37-47); Hemoglobin 8.3 g/dL (12.0-15.0); Lymphocyte % 12.9 % (19-41); Mean Corp Hgb Conc 30.2 g/dL (32-36); Mean Corpuscular Hgb 28.8 pg (27.0-32.0); Mean Corpuscular Volume 95.5 fL (81-99); Mean Platelet Vol. 10.4 fl (6.2-12.0); Monocyte# 0.52 X10^3/uL; Monocyte% 7.5 % (0-10); NRBC Flagged by Analyzer 0 % (0-5); Neutrophil # 5.22 X10^3/uL (2.7-7.7); Neutrophil % 74.8 % (47-70); Platelet Count 273 K/mm3 (150-450); RBC Distribution Width CV 17.3 % (11.6-14.6); RBC Distribution Width SD 59.6 fl (35.1-43.9); Red Blood Count 2.88 M/mm3 (4.2-5.4)
--- NOTE | 2021-05-26 11:25 | EDS_ITS ---
HPI History of Present Illness Chief Complaint: General Illness Informant: patient Narrative Narrative: Patient is an 80-year-old female with extensive medical history presenting with bleeding from her tongue. Patient was seen for the same complaint yesterday. She had the area cauterized in H&H which showed hemoglobin of 8.3. Patient notes that around 9 AM and started bleeding again. She also she felt a little lightheaded with exertion today which is new. She states she has had similar problems in the past and was seeing Dr. Conway for her tongue. She is told that she might require surgery but she is not a candidate for surgery because of her heart valve. Patient follows at the clinic clinic for that. Patient has severe aortic stenosis. She is on Plavix and aspirin because of TIAs. She notes she is prone to bleeding with nosebleeds and has had bleeding from her tongue in the past as well. [facility] Medical History Acute blood loss anemia Atherosclerotic heart disease of [place] coronary artery without angina pectoris Atypical chest pain Bilateral carotid artery stenosis Bilateral carotid bruits Biliary colic CAD (coronary artery disease) Carotid stenosis Cholelithiasis Jayson's syndrome Effusion, left knee Essential hypertension Gallstones GERD (gastroesophageal reflux disease) History of left heart catheterization (LHC) (~07/14/20) HTN (hypertension) Iron deficiency anemia due to chronic blood loss Near syncope Nonrheumatic aortic (valve) stenosis [place] (obstructive sleep apnea) Osteoarthritis Paroxysmal atrial fibrillation PND (post-nasal drip) Psoriasis Pure hypercholesterolemia Sleep disorder Sleep disorder breathing SOB (shortness of breath) on exertion TIA (transient ischemic attack) Tobacco abuse Type 2 diabetes mellitus UGIB (upper gastrointestinal bleed) Home Medications ezetimibe 10 mg PO QHS 09/01/13 [History Last Taken 04/17/21] pantoprazole 40 mg PO BID 09/01/13 [History Last Taken 04/18/21] metoprolol tartrate 100 mg tablet 100 mg PO BID #180 tab 10/05/18 [Rx Last Taken 04/18/21] nitroglycerin 0.4 mg sublingual tablet 0.4 mg SUBLINGUAL Q5M PRN #25 tab 10/05/18 [Rx Last Taken 04/12/19] acetaminophen 1,000 mg PO DAILY PRN PRN 04/12/19 [History Last Taken 02/19/21] niacin (inositol niacinate) 1,000 mg PO BID 04/12/19 [History Last Taken 04/18/21] furosemide [Lasix] 10 mg PO DAILY PRN 12/15/20 [History Last Taken Unknown] ferrous sulfate 325 mg PO DAILY 02/20/21 [History Last Taken 04/18/21] levocetirizine [Xyzal] 5 mg PO QPM 02/20/21 [History Last Taken 04/17/21] aspirin 81 mg PO QHS 04/18/21 [History Last Taken 04/16/21] clopidogrel 75 mg PO DAILY 04/18/21 [History Last Taken 04/18/21] azithromycin 250 mg PO DAILY 05/05/21 [History Last Taken Unknown] Allergy/AdvReac Type Severity Reaction Status Date / Time Sulfa (Sulfonamide Allergy Severe HEART Verified 05/26/21 10:11 Antibiotics) RACING Latex, Natural Rubber Allergy Rash, Verified 05/26/21 10:11 psioriasis amoxicillin [From Augmentin] AdvReac Nausea Verified 05/26/21 10:11 atorvastatin [From Lipitor] AdvReac Other Verified 05/26/21 10:11 clavulanic acid AdvReac Nausea Verified 05/26/21 10:11 [From Augmentin] Iodinated Contrast Media AdvReac Other Verified 05/26/21 10:11 [CONTRASTS] niacin AdvReac Other Verified 05/26/21 10:11 [From Niaspan Extended-Release] red dye AdvReac NEEDS Verified 05/26/21 10:11 FOLLOW-UP rosuvastatin [From Crestor] AdvReac Other Verified 05/26/21 10:11 turkey grease AdvReac Rash Uncoded 05/26/21 10:11 Family History Mother Heart disease Diabetes Father Heart disease Cancer Sister Cancer COPD (chronic obstructive pulmonary disease) Surgical History History of aortic valve replacement with bioprosthetic valve (~09/06/13) History of bilateral carotid endarterectomy History of coronary artery bypass surgery (~09/06/13) History of left mastectomy (~1998) History of right mastectomy (~1998) History of tubal ligation Social History household members: none housing: house Smoking Status: Former smoker how long ago did patient quit smokin second hand exposure: No alcohol intake: never substance use type: does not use caffeine: Yes Type: coffee Number of servings: 2 and tea what type of physical activity do you participate in: none franci/gnosticist: Worship seatbelt use: always do you feel safe at home: Yes ROS ROS ED Constitutional Constitutional ED: Denies chills or fever(s) Eyes Eyes: Denies change in vision ENT ENT ED: Reports other Details: Bleeding from tongue Cardiovascular Cardiovascular: Denies chest pain Respiratory/Chest Respiratory/Chest: Denies cough or dyspnea Gastrointestinal Gastrointestinal: Denies abdominal pain, nausea or vomiting Genitourinary Genitourinary ED: Denies hematuria Musculoskeletal Musculoskeletal: Denies arthralgias or myalgias Integumentary Denies rash Neurologic Neurologic: Reports weakness; Denies headache(s) Psychiatric Psychiatric: Denies depression EXAM Physical Exam Const Vital Signs: 05/26/21 10:08 Temperature 98 F Temperature Source Temporal Pulse Rate 57 L Respiratory Rate 18 Blood Pressure 137/55 H Blood Pressure Mean 82 Pulse Ox 100 Oxygen Delivery Method Room Air Positive well nourished and well developed General Appearance ED: well developed HEENT Reports moist mucous membranes HEENT Narrative: Patient has erythematous lesion on her right mid tongue with no active bleeding. Negative for trauma Eyes PERRL and EOMs intact bilaterally General Eye ED: Negative for pale conjunctiva Neck supple Chest Wall inspection of chest normal Resp normal respiratory effort and clear to auscultation bilaterally Cardio regular rate and regular rhythm Rate: other Other Details: Positive murmur GI normal to inspection, nondistended, normoactive bowel sounds Extremity normal to inspection General Extremety ED: Negative for edema or tenderness General Extremity: Negative for edema Neuro oriented x3 Neuro Narrative: No focal deficits appreciated Sensorium / Orientation: alert Psych mental status grossly normal Mood & Affect: anxious Skin no rashes or lesions noted and no wounds MDM MDM MDM Narrative Medical decision making narrative: Patient evaluated for continued bleeding from her tongue. She is seen yesterday for the same complaint. She is not having active bleeding at this time. She states that she filled up bags of spit and blood so I will recheck H&H. CBC shows hemoglobin of 8.3. This is stable from yesterday. Patient is hemodynamically stable. Again nitro cautery is performed on the patient's tongue per her request. Patient discharged home. She is counseled on return precautions. She is counseled that the bleeding can recur and if it does she should first apply direct pressure. She is instructed to follow-up with ENT. She verbalizes agreement understanding this plan. Lab Data Labs: Laboratory Results - last 24 hr 05/26/21 10:42 WBC 7.0 RBC 2.88 L Hgb 8.3 L Hct 27.5 L MCV 95.5 MCH 28.8 MCHC 30.2 L RDW Std Deviation 59.6 H RDW Coeff of Velasquez 17.3 H Plt Count 273 MPV 10.4 Immature Gran % (Auto) 0.600 Neut % (Auto) 74.8 H Lymph % (Auto) 12.9 L [place] % (Auto) 7.5 Eos % (Auto) 3.6 Baso % (Auto) 0.6 Absolute Neuts (auto) 5.2 Absolute Lymphs (auto) 0.90 Nucleated RBC % 0 Discharge Plan Triage Chief Complaint: General Illness ED Provider: Tiara Tai Dx/Rx/DC Orders Clinical Impression: Hemorrhage of tongue, Anemia Instructions: ED Anemia, Type Not Specified (Adult) Prescriptions: No Action nitroglycerin 0.4 mg tablet, sublingual 0.4 mg SUBLINGUAL Q5M PRN (Reason: Chest Pain) Qty: 25 RF: 1 metoprolol tartrate 100 mg tablet 100 mg PO BID Qty: 180 RF: 3 pantoprazole 40 MG tablet 40 mg PO BID RF: 0 ezetimibe 10 MG tablet 10 mg PO QHS RF: 0 acetaminophen 500 MG tablet 1,000 mg PO DAILY PRN PRN (Reason: Pain Or Fever) RF: 0 niacin (inositol niacinate) 500 MG capsule 1,000 mg PO BID RF: 0 furosemide [Lasix] 20 mg Tablet 10 mg PO DAILY PRN (Reason: Edema) RF: 0 levocetirizine [Xyzal] 5 mg Tablet 5 mg PO QPM RF: 0 ferrous sulfate 325 MG tablet 325 mg PO DAILY RF: 0 clopidogrel 75 mg tablet 75 mg PO DAILY RF: 0 Hold Instructions: Hold until appointment with Dr. Montague. aspirin 81 mg Capsule 81 mg PO QHS RF: 0 Hold Instructions: Hold until appointment with Dr. Montague. azithromycin 250 mg tablet 250 mg PO DAILY RF: 0 Primary Care Provider: Daisha Ramirez Referrals: Kalyan Meek MD [STAFF PHYSICIAN] - Daisha Ramirez DO [Primary Care Provider] - Disposition Disposition: Home, Self Care Discharge Date/Time: 05/26/21 12:57
== END 2021-05-26 12:57 | disposition home or self-care (01) ==
PROVIDERS: Emergency Provider Emergency Medicine; PCP Internal Medicine; Visit Provider Emergency Medicine
DX: K14.8 Other diseases of tongue (principal); E11.9 Type 2 diabetes mellitus without complications; D64.9 Anemia, unspecified; I35.0 Nonrheumatic aortic (valve) stenosis; Z87.891 Personal history of nicotine dependence; E78.00 Pure hypercholesterolemia, unspecified; I25.10 Atherosclerotic heart disease of native coronary artery without angina pectoris; I10 Essential (primary) hypertension; Z86.73 Personal history of transient ischemic attack (TIA), and cerebral infarction without residual deficits; Z95.2 Presence of prosthetic heart valve
CPT/HCPCS: 36415; 85025; 99284; J7030

== ENCOUNTER 2021-07-16 14:30 | Outpatient (CLI) | payer MEDICARE, SELFPAY ==
[2021-07-16 15:30] LABS: Hemoglobin 8.7 g/dL (12.0-15.0)
[2021-07-16 16:03] LABS: Iron 55 ug/dL (50-170); Iron Binding Capacity,Total 403 ug/dL (250-450); PERCENT IRON SATURATION 13.6 % (15.0-55.0)
== END 2021-07-16 23:59 | disposition home or self-care (01) ==
LOC: LAB 14:31
PROVIDERS: PCP Internal Medicine; Visit Provider Internal Medicine Gastroenterology
DX: D62 Acute posthemorrhagic anemia (principal)
CPT/HCPCS: 36415; 83540; 83550; 85018

== ENCOUNTER 2021-07-20 14:18 | Emergency (ER) | payer MEDICARE, SELFPAY ==
[2021-07-20 14:19] VITALS: BP 152/62; PULSE 85; RESP 14; TEMP 36.3; O2SAT 100; BMI 25.8
--- NOTE | 2021-07-20 15:13 | EKG12_ITS ---
Test Reason : CP Blood Pressure : / mmHG Vent. Rate : 078 BPM Atrial Rate : 078 BPM P-R Int : 190 ms QRS Dur : 144 ms QT Int : 430 ms P-R-T Axes : 081 006 101 degrees QTc Int : 490 ms Normal sinus rhythm Left bundle branch block Abnormal ECG Confirmed by FAYE DELGADILLO, KAREN ([id number]), script editor CHRISTIN BARTHOLOMEW ([id number]) on 07/21/2021 10:33:06 AM Referred By: EUGENIA/DELON Confirmed By:KAREN MCKINNEY MD
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
[2021-07-20] MEDS: MethylPREDNISolone 125 MG/2 ML Vial IV (15:27)
[2021-07-20] MEDS: DiphenhydrAMINE 50 MG/ML Syringe IV (15:28)
--- NOTE | 2021-07-20 15:30 | CT_ITS ---
EXAM: CT ANGIOGRAPHY CHEST, ABDOMEN AND PELVIS WITH INTRAVENOUS CONTRAST CLINICAL INDICATION: dissection study TECHNIQUE: Helically acquired angiography images were obtained of the chest, abdomen and pelvis with intravenous contrast. This CT exam was performed using one or more of the following dose reduction techniques: automated exposure control, adjustment of the mA and/or kV according to patient size, and/or use of iterative reconstruction technique. This report was created using [employer] report generation technology. MIP reconstructed images were created and reviewed. CONTRAST: IV 100mL [id number] COMPARISON: None. FINDINGS: VASCULATURE: AORTA: There is no dissection or hematoma noted in the abdominal aorta. There are thoracic aortic calcifications consistent for atherosclerotic disease. There is no dissection or hematoma noted in the thoracic aorta. There are calcifications of the abdominal aorta. This is consistent for atherosclerotic disease. There is no abdominal aortic aneurysm. PULMONARY ARTERIES: No demonstrated pulmonary embolism or arterial dissection. GREAT VESSELS OF AORTIC ARCH: Unremarkable. Normal in caliber. No dissection. CELIAC TRUNK AND MESENTERIC ARTERIES: Celiac and superior mesenteric arteries: There is mild diffuse narrowing. Inferior mesenteric artery: There is mild diffuse narrowing. No dissection. RENAL ARTERIES: Right renal artery(arteries): There is severe diffuse narrowing. Left renal artery(arteries): There is moderate diffuse narrowing. No dissection. ILIAC ARTERIES: Right common iliac artery: There is mild diffuse narrowing. Right external iliac artery: There is mild diffuse narrowing. Right internal iliac artery: There is mild diffuse narrowing. Left common iliac artery: There is mild diffuse narrowing. Left external iliac artery: There is mild diffuse narrowing. Left internal iliac artery: There is mild diffuse narrowing. No dissection. CHEST: LUNGS AND PLEURAL SPACES: Unremarkable. No mass. No consolidation or edema. No pleural effusion or thickening. No pneumothorax. HEART: There are coronary arterial calcifications. MEDIASTINUM: Unremarkable. No mediastinal or hilar adenopathy. Esophagus is unremarkable. No hiatal hernia. THYROID: Unremarkable. No thyroid lesions. ABDOMEN: LIVER: Unremarkable. Homogeneous. No focal mass. GALLBLADDER AND BILE DUCTS: Unremarkable. No calcified gallstones. No gallbladder distention or wall edema. No intra- or extrahepatic biliary ductal dilation. PANCREAS: Unremarkable. No focal cystic or solid mass. SPLEEN: Unremarkable. Normal size without focal cystic or solid mass. ADRENALS: Unremarkable. No nodules. KIDNEYS AND URETERS: Unremarkable. Normal renal size and position. No hydronephrosis. STOMACH AND BOWEL: There is an umbilical hernia containing fat. There is no bowel involvement. There is no incarceration. There is no findings suggesting that this is causing a bowel obstruction. No focal inflammatory change. PELVIS: APPENDIX: The appendix is visualized and is normal. BLADDER: Unremarkable. REPRODUCTIVE: The uterus is normal. CHEST, ABDOMEN and PELVIS: INTRAPERITONEAL SPACE: Unremarkable. No ascites or other fluid collection. No free air. BONES/JOINTS: Multiple median sternotomy wires are noted consistent for cardiac surgery. Evidence for osteitis pubis. Degenerative findings in the lumbar spine. There are diffuse degenerative changes of the visualized thoracic spine. There is degenerative osteoarthritis of the bilateral shoulders. No suspicious lytic or blastic abnormality. SOFT TISSUES: There are multiple metallic clips in the bilateral axilla. This is consistent for a prior axillary dissection. There are mastectomy changes noted. LYMPH NODES: Unremarkable. No enlarged lymph nodes. TUBES, LINES AND DEVICES: There is an atrial appendage device noted. CT/CTA Chst, Abd, Pel W and/or WO IMPRESSION: 1. No demonstrated pulmonary embolism or arterial dissection. 2. There is no dissection or hematoma noted in the abdominal aorta. 3. Right renal artery(arteries): There is severe diffuse narrowing. 4. Left renal artery(arteries): There is moderate diffuse narrowing. Electronically Signed: Mendoza Hernandez MD at 17:12 EDT ,
--- NOTE | 2021-07-20 15:45 | RAD_ITS ---
STUDY: XR Chest 1 View 07/20/2021 3:55 PM REASON FOR EXAM: Female, 81 years old. CHEST PAIN chest pain COMPARISON: 12.25. TECHNIQUE: XR Chest 1 View FINDINGS: There is no demonstrated pleural abnormality. There are multiple median sternotomy wires. There are multiple metallic clips in the right and left axilla. This is consistent for a prior axillary dissection. There are mastectomy changes noted. There is an atrial appendage device noted. Normal heart size. Normal mediastinum. Normal erasmo. Prominent appearing increased interstitial lung markings. Normal visualized pulmonary arteries. There is atherosclerotic calcification of the aortic arch with tortuosity. There are diffuse degenerative changes of the visualized thoracic spine. There is degenerative osteoarthritis of the bilateral shoulders. There is no demonstrated abnormality of the visualized soft tissue structures of the upper abdomen. RAD/Chest 1 View (Portable) IMPRESSION: There are no acute findings. Electronically Signed: Mendoza Hernandez MD at 16:49 EDT ,
[2021-07-20 15:47] LABS: Absolute Lymphocyte Count 1.13 X10^3/uL (0.83-4.51); Absolute Neutrophil Count 5.8 X10^3/uL (2.0-7.7); Basophil# 0.05 X10^3/uL; Basophil% 0.6 % (0-1); Eosinophil# 0.34 X10^3/uL; Eosinophils% 4.3 % (0-5); Hematocrit 27.5 % (37-47); Hemoglobin 8.2 g/dL (12.0-15.0); Lymphocyte # 1.13 X10^3/ul (0.83-4.51); Lymphocyte % 14.3 % (19-41); Mean Corp Hgb Conc 29.8 g/dL (32-36); Mean Corpuscular Hgb 28.5 pg (27.0-32.0); Mean Corpuscular Volume 95.5 fL (81-99); Mean Platelet Vol. 9.8 fl (6.2-12.0); Monocyte# 0.58 X10^3/uL; Monocyte% 7.3 % (0-10); NRBC Flagged by Analyzer 0 % (0-5); Neutrophil # 5.76 X10^3/uL (2.7-7.7); Neutrophil % 72.9 % (47-70); Platelet Count 239 K/mm3 (150-450); RBC Distribution Width CV 16.2 % (11.6-14.6); RBC Distribution Width SD 55.8 fl (35.1-43.9); Red Blood Count 2.88 M/mm3 (4.2-5.4); White Blood Count 7.9 K/mm3 (4.4-11.0)
[2021-07-20 16:11] LABS: Anion Gap 6 (5-15); BUN 18 mg/dL (7-18); BUN/Creat Ratio 18.4 RATIO (10-20); Calcium,Total 8.3 mg/dL (8.5-10.1); Chloride 105 mmol/L (98-107); Creatinine, Serum 0.98 mg/dL (0.55-1.02); EST Glomerular Filtration Rate 58 mL/min (>60); Est Glom Filt Rate - Afr Amer 70 mL/min (>60); Estimated Creatinine Clearance 35.61 ml/min; Glucose 97 mg/dL (74-106); Potassium 4.2 mmol/L (3.5-5.1); Sodium Level 140 mmol/L (136-145); Troponin-I HS 25 pg/mL (3.0-54.0)
[2021-07-20 16:13] VITALS: O2SAT 95
[2021-07-20 16:16] VITALS: PULSE 86; RESP 22; O2SAT 98
[2021-07-20 17:29] VITALS: PULSE 73; RESP 18; O2SAT 100
[2021-07-20 17:53] LABS: Troponin-I HS 22 pg/mL (3.0-54.0)
[2021-07-20 18:05] VITALS: PULSE 81; RESP 22; O2SAT 100
[2021-07-20 19:06] VITALS: PULSE 86; RESP 20; O2SAT 96
== END 2021-07-20 19:07 | disposition home or self-care (01) ==
PROVIDERS: Emergency Provider Student in an Organized Health Care Education/Training Program; PCP Internal Medicine; Visit Provider Student in an Organized Health Care Education/Training Program
DX: R07.9 Chest pain, unspecified (principal); I70.1 Atherosclerosis of renal artery; E11.9 Type 2 diabetes mellitus without complications; I35.0 Nonrheumatic aortic (valve) stenosis; D64.9 Anemia, unspecified; E78.00 Pure hypercholesterolemia, unspecified; Z87.891 Personal history of nicotine dependence; I25.10 Atherosclerotic heart disease of native coronary artery without angina pectoris; I44.7 Left bundle-branch block, unspecified; I10 Essential (primary) hypertension; Z86.73 Personal history of transient ischemic attack (TIA), and cerebral infarction without residual deficits; G47.33 Obstructive sleep apnea (adult) (pediatric); K21.9 Gastro-esophageal reflux disease without esophagitis
CPT/HCPCS: 36415; 71045; 71275; 74174; 80048; 84484; 85025; 93005; 96374; 96375; 99284; J1756; J7050; Q9967; A4216

== ENCOUNTER 2021-08-11 22:56 | Emergency (ER) | payer MEDICARE, SELFPAY ==
[2021-08-11 22:57] VITALS: TEMP 36.4; BMI 27.5
--- NOTE | 2021-08-11 23:06 | EKG12_ITS ---
Test Reason : CP Blood Pressure : / mmHG Vent. Rate : 093 BPM Atrial Rate : 093 BPM P-R Int : 178 ms QRS Dur : 120 ms QT Int : 388 ms P-R-T Axes : 096 -03 139 degrees QTc Int : 482 ms Normal sinus rhythm Left ventricular hypertrophy with QRS widening and repolarization abnormality Abnormal ECG Confirmed by JOSE MANUEL DELGADILLO, CRISTIAN ([id number]), newspaper copy editor CHRISTIN BARTHOLOMEW ([id number]) on 08/13/2021 10:57:02 AM Referred By: EUGENIA Confirmed By:CRISTIAN RICHARD MD
--- NOTE | 2021-08-11 23:10 | EDS_ITS ---
HPI History of Present Illness Chief Complaint: Chest Pain Detail of Chief Complaint: Epigastric bilateral anterior chest discomfort Informant: patient Onset/Context/Timing Onset: Hours Activity at onset: sudden and rest Timing: Intermittent Quality: Positive for - (Discomfort/pain) Location: Right Chest, Left Chest and - (And subxiphoid) Current Severity: Gone Maximum Severity: Moderate Worsened By: - (Supine patient and belching) Relieved By: - (Upright position) Associated Symptoms: Positive for Nausea and Vomiting; Negative for Diaphoresis, Dyspnea, Cough, Fever, Lightheadedness, Acid Reflux and Palpitations Narrative Narrative: Patient is an 81-year-old woman who had endoscopy performed several months ago by Dr. Montague. Endoscopy revealed small hemorrhages and irritation distal esophagus and first part of the duodenum. Patient has history of anemia due to GI blood loss. Patient continues to have blood loss and had a capsule endoscopy this afternoon. She states she had to drink a bottle of mag citrate last evening. She has not taken any iron in the last 5 days. She denies black or maroon-colored stool. She states when she did vomit this evening it was not bloody, brown or coffee grounds in appearance. Patient states she was on the commode when she vomited. She was urinating. Prior Similar Symptoms: Yes (GI etiology) Recent Illness/Hospitalization: No CVD Risk Factors: Positive for Hypertension and Hypercholesterolemia; Negative for Diabetes PE Risk Factors: Negative for Recent Travel/Surgery, Recent Immobilization, Prior DVT or PE, Cancer and OCP + Smoking + >/=35 TAD Risk Factors: Positive for Hypertension; Negative for Marfan's Syndrome and Family History [facility] Medical History Acute blood loss anemia Atherosclerotic heart disease of [place] coronary artery without angina pectoris Atypical chest pain Bilateral carotid artery stenosis Bilateral carotid bruits Biliary colic CAD (coronary artery disease) Carotid stenosis Cholelithiasis Jayson's syndrome Effusion, left knee Essential hypertension Gallstones GERD (gastroesophageal reflux disease) History of left heart catheterization (LHC) (~07/14/20) HTN (hypertension) Iron deficiency anemia due to chronic blood loss Near syncope Nonrheumatic aortic (valve) stenosis [place] (obstructive sleep apnea) Osteoarthritis Paroxysmal atrial fibrillation PND (post-nasal drip) Psoriasis Pure hypercholesterolemia Sleep disorder Sleep disorder breathing SOB (shortness of breath) on exertion TIA (transient ischemic attack) Tobacco abuse Type 2 diabetes mellitus UGIB (upper gastrointestinal bleed) Home Medications ezetimibe 10 mg PO QHS 09/01/13 [History Last Taken 04/17/21] pantoprazole 40 mg PO BID 09/01/13 [History Last Taken 04/18/21] metoprolol tartrate 100 mg tablet 100 mg PO BID #180 tab 10/05/18 [Rx Last Taken 04/18/21] nitroglycerin 0.4 mg sublingual tablet 0.4 mg SUBLINGUAL Q5M PRN #25 tab 10/05/18 [Rx Last Taken 04/12/19] acetaminophen 1,000 mg PO DAILY PRN PRN 04/12/19 [History Last Taken 02/19/21] niacin (inositol niacinate) 1,000 mg PO BID 04/12/19 [History Last Taken 04/18/21] furosemide [Lasix] 10 mg PO DAILY PRN 12/15/20 [History Last Taken Unknown] aspirin 81 mg PO QHS 04/18/21 [History Last Taken 04/16/21] clopidogrel 75 mg PO DAILY 04/18/21 [History Last Taken 04/18/21] ascorbic acid (vitamin C) 500 mg capsule 1,000 mg PO DAILY cap 07/15/21 [History Last Taken Unknown] cholecalciferol (vitamin D3) 25 mcg (1,000 unit) capsule 125 mcg PO DAILY cap 07/15/21 [History Last Taken Unknown] levocetirizine 5 mg tablet 5 mg PO DAILY 07/15/21 [History Last Taken Unknown] vitamin A32-njawc acid 5,000 tab PO DAILY 07/27/21 [History Last Taken Unknown] Allergy/AdvReac Type Severity Reaction Status Date / Time Sulfa (Sulfonamide Allergy Severe HEART Verified 07/27/21 13:09 Antibiotics) RACING Latex, Natural Rubber Allergy Rash, Verified 07/27/21 13:09 psioriasis amoxicillin [From Augmentin] AdvReac Nausea Verified 07/27/21 13:09 atorvastatin [From Lipitor] AdvReac Other Verified 07/27/21 13:09 clavulanic acid AdvReac Nausea Verified 07/27/21 13:09 [From Augmentin] Iodinated Contrast Media AdvReac Other Verified 07/27/21 13:09 [CONTRASTS] niacin AdvReac Other Verified 07/27/21 13:09 [From Niaspan Extended-Release] red dye AdvReac NEEDS Verified 07/27/21 13:09 FOLLOW-UP rosuvastatin [From Crestor] AdvReac Other Verified 07/27/21 13:09 turkey grease AdvReac Rash Uncoded 07/20/21 14:23 Family History Mother Heart disease Diabetes Father Heart disease Cancer Sister Cancer COPD (chronic obstructive pulmonary disease) Surgical History History of aortic valve replacement with bioprosthetic valve (~09/06/13) History of bilateral carotid endarterectomy History of coronary artery bypass surgery (~09/06/13) History of left mastectomy (~1998) History of right mastectomy (~1998) History of tubal ligation Social History household members: none housing: house Smoking Status: Former smoker how long ago did patient quit smokin second hand exposure: No alcohol intake: never substance use type: does not use caffeine: Yes Type: coffee Number of servings: 2 and tea what type of physical activity do you participate in: none franci/oriental orthodox: Babita seatbelt use: always do you feel safe at home: Yes ROS ROS ED Constitutional Constitutional ED: Denies chills, fever(s), subjective, sweats or weight loss Eyes Eyes: Reports none ENT ENT ED: Denies ear pain, rhinorrhea or sore throat Cardiovascular Cardiovascular: Reports as per HPI; Denies orthopnea or paroxysmal nocturnal dyspnea Respiratory/Chest Respiratory/Chest: Denies cough, dyspnea, dyspnea on exertion, orthopnea or paroxysmal nocturnal dyspnea Gastrointestinal Gastrointestinal: Reports abdominal pain, nausea and vomiting; Denies constipation, diarrhea or melena Genitourinary Genitourinary ED: Denies dysuria, hematuria or urinary frequency Musculoskeletal Musculoskeletal: Denies arthralgias, back pain, myalgias or neck pain Integumentary Denies rash Neurologic Neurologic: Denies paresthesias or weakness Hematologic/Lymphatic Hematologic/Lymphatic: Denies easy bleeding or easy bruising EXAM Physical Exam Const Vital Signs: 08/11/21 22:57 08/12/21 01:49 Temperature 97.6 F L Temperature Source Temporal Pulse Rate 76 Respiratory Rate 16 Respiratory Effort Normal Positive well nourished and well developed General Appearance ED: well developed and NAD; Negative for pallor HEENT Reports TM's clear and moist mucous membranes normocephalic Tympanic Membrane ED: Yes TM's clear Eyes PERRL and EOMs intact bilaterally General Eye ED: Negative for pale conjunctiva or scleral icterus Neck no lymphadenopathy, supple and no JVD Chest Wall palpation of chest normal Resp normal respiratory effort and clear to auscultation bilaterally Effort and Inspection: respiratory distress Cardio regular rate, regular rhythm, S1 normal heart sound, S2 normal heart sound and no murmurs GI normal to inspection, nondistended, normoactive bowel sounds, soft to palpation, non-distended and no masses; Negative for non-tender or hepatosplenomegaly GI Narrative: Epigastric discomfort negative Smith sign Back/Spine no CVA tenderness and no thoracic nor lumbar tenderness Extremity normal to inspection Extremity Narrative: There is no asymmetry, swelling, discoloration, leg vein distention, palpable cords or tenderness along the distribution of the deep venous system. General Extremety ED: Negative for edema, pulses abnormal or tenderness General Extremity: Negative for edema or pulses abnormal Neuro oriented x3, CN's II-XII intact bilaterally and no sensory deficits noted Sensorium / Orientation: awake and alert Motor Exam: strength 5/5 throughout Psych mental status grossly normal Skin no rashes or lesions noted and no wounds General Skin Exam: Negative for jaundice or pallor Heart Score History: Slightly/Non-Suspicious ECG: Nonspecific Repolarization Age: >/= 65 years Risk Factors: >/= 3 Risk Factors or History of CAD Score: 5 MDM MDM MDM Narrative Medical decision making narrative: Heart score was filled out however based on patient's history physical prior records this is noncardiac chest pain. Will treat with GI cocktail. If she gets better no further work-up is warranted or indicated. EKG was obtained per nurse protocol and reveals normal sinus rhythm with a left bundle branch block and LVH with repolarization abnormality. I was informed by patient's nurse, Mamta, that she will not drink the GI cocktail. I explained to the patient I reviewed her records and that when she has had this pain in the past and had a cardiac work-up it was determined not to be heart. She is now insisting that her throat is closing up and needs a glass of water. When I informed her that causes for chest pain can also be noncardiac. She looked at me dumbfounded and states that no one will operate on her for gallbladder. Indicates she does have cholelithiasis. In light of this information she was reexamined and there is no pain in the right upper quadrant. Furthermore, she has a negative clinical Smith sign. There is no hepat omegaly. Nurse informing that she still refuses the GI cocktail. Will order IV Pepcid. Patient now states the pain is lateral aspect of the right pectoralis muscle. She admits that she has had intermittent pain in this area over the last 2 to 3 years. She informed me that this is not her heart. I again explained why I wanted to administer a GI cocktail. She adamantly refuses because this cannot be her stomach or esophagus because Dr. Montague took care of the problem. Since patient had right pectoral pain intermittently for 2 to 3 years and her EKG is unchanged and she will take the medicine that was originally prescribed IV Pepcid was ordered. Plan is to discharge patient since this is not cardiac in his in all likelihood GI. EKG Initial EKG: Attestation: I personally reviewed and interpreted this EKG as follows: Interpretation: Sinus Rhythm (Rate 93. [place] interval 178 ms. Cures duration 120 ms. QT duration 388 ms. There is evidence of a left bundle branch block and LVH.) Discharge Plan Triage Chief Complaint: Chest Pain ED Provider: Mir Campos Dx/Rx/DC Orders Clinical Impression: Recurrent epigastric abdominal pain, Intermittent right-sided chest pain, Hx of gastroesophageal reflux (GERD), Hx of iron deficiency anemia Instructions: GERD Lifestyle Changes, ED Chest Pain, Noncardiac, ED GERD (Adult), ED Epigastric Pain Uncertain Cause Prescriptions: No Action nitroglycerin 0.4 mg tablet, sublingual 0.4 mg SUBLINGUAL Q5M PRN (Reason: Chest Pain) Qty: 25 RF: 1 metoprolol tartrate 100 mg tablet 100 mg PO BID Qty: 180 RF: 3 levocetirizine [Xyzal] 5 mg tablet 5 mg PO DAILY RF: 0 ascorbic acid (vitamin C) 500 mg capsule 1,000 mg PO DAILY RF: 0 cholecalciferol (vitamin D3) 25 mcg (1,000 unit) capsule 125 mcg PO DAILY RF: 0 pantoprazole 40 MG tablet 40 mg PO BID RF: 0 ezetimibe 10 MG tablet 10 mg PO QHS RF: 0 acetaminophen 500 MG tablet 1,000 mg PO DAILY PRN PRN (Reason: Pain Or Fever) RF: 0 niacin (inositol niacinate) 500 MG capsule 1,000 mg PO BID RF: 0 furosemide [Lasix] 20 mg Tablet 10 mg PO DAILY PRN (Reason: Edema) RF: 0 vitamin V22-dnkpy acid 2,500-400 mcg Tablet,Disintegrating 5,000 tab PO DAILY RF: 0 clopidogrel 75 mg tablet 75 mg PO DAILY RF: 0 Hold Instructions: Hold until appointment with Dr. Montague. aspirin 81 mg Capsule 81 mg PO QHS RF: 0 Hold Instructions: Hold until appointment with Dr. Montague. Primary Care Provider: Daisha Ramirez Referrals: Daisha Ramirez, [Primary Care Provider] - 3-5 Days if not improving Disposition Disposition: Home, Self Care
--- NOTE | 2021-08-11 23:24 | ED.RN ---
PT REFUSED MEDICATION. THIS NURSE ATTEMPTED TO EDUCATE PT. PT STATED SHE REFUSES BECAUSE IT WILL NOT HELP HER
[2021-08-12 01:49] VITALS: PULSE 76; RESP 16
[2021-08-12] MEDS: Famotidine 200 MG/20 ML MDV 20 MG in 0.9% Normal Saline (Pres. free 8 ML 300 MG IV (01:53)
--- NOTE | 2021-08-12 02:39 | ED.RN ---
PT IV REMOVED AND BLEEDING. DRESSING RE-ENFORCED. PT INSTRUCTED TO WET THE DRESSING BEFORE TAKING IT OFF JUST A PRECAUTION TO HELP SO THAT IT MAY NOT BLEED AGAIN. IM NOT LEAVING, I CANT LEAVE WITH THAT LIKE THIS (MEANING THE DRESSING), I LIVE ALONE, YOU ARE RIDICULOUS YOU CANT MAKE ME LEAVE IN THIS SHAPE, GET THAT DR IN HERE. DR INFORMED. THIS RN REMOVED ALL OF THE DRESSINGS AND CLEANED THE AREA AND A NEW DRESSING APPLIED. PT ATTEMPTING TO CALL TO CALL FOR A RIDE.
== END 2021-08-12 02:49 | disposition home or self-care (01) ==
PROVIDERS: Emergency Provider Emergency Medicine; PCP Internal Medicine; Visit Provider Emergency Medicine
DX: R10.13 Epigastric pain (principal); E11.9 Type 2 diabetes mellitus without complications; R07.9 Chest pain, unspecified; E78.00 Pure hypercholesterolemia, unspecified; R11.2 Nausea with vomiting, unspecified; I25.10 Atherosclerotic heart disease of native coronary artery without angina pectoris; I44.7 Left bundle-branch block, unspecified; I10 Essential (primary) hypertension; Z87.891 Personal history of nicotine dependence; R14.2 Eructation; K21.9 Gastro-esophageal reflux disease without esophagitis; D50.9 Iron deficiency anemia, unspecified; G47.33 Obstructive sleep apnea (adult) (pediatric)
CPT/HCPCS: 93005; 99284; A4216; J3490

== ENCOUNTER 2021-08-27 11:28 | Inpatient (IN) | payer MEDICARE, SELFPAY ==
[2021-08-27] VITALS (15 sets, daily range): BP systolic 110–161; BP diastolic 39–89; PULSE 80–111; RESP 14–22; TEMP 36.1–36.9; O2SAT 96–100; BMI 25.7; BMI 26.4
--- NOTE | 2021-08-27 12:17 | EDS_ITS ---
HPI HPI - GI History of Present Illness Chief Complaint: Other, Pain/Inj Informant: patient Abdominal Pain/Flank Pain Onset: Yesterday Context: Gradual Onset Timing: Intermittent Quality: Dull Location: RUQ and Right Flank Worsened by: Nothing Relieved by: Nothing Nausea/Vomiting/Emesis GI Symptom: Positive for Nausea; Negative for Vomiting Diarrhea/Melena/Hematochezia GI Symptom: Positive for Melena and Hematochezia Onset: Yesterday Associated Symptoms Associated Symptoms: Negative for Dysuria, Frequency and Hematuria Narrative Narrative: Patient presents with rectal bleeding that began last evening. Patient states she has been having black stools because she is on iron. Patient states that she noted some red blood around the black stools last evening. Patient states she had another episode today. Patient states she has been feeling nauseated but denies any vomiting. Patient admits to some right upper quadrant and right flank pain. Patient states she has a history of cholelithiasis but her bank manager will not allow her to have a cholecystectomy and her surgeon will not perform the cholecystectomy due to her artificial heart valve. Patient had a recent capsule endoscopy but does not have the results of that yet. 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 Atypical chest pain Bilateral carotid artery stenosis Bilateral carotid bruits Biliary colic CAD (coronary artery disease) Carotid stenosis Cholelithiasis Jayson's syndrome Effusion, left knee Essential hypertension Former smoker Gallstones GERD (gastroesophageal reflux disease) History of left heart catheterization (LHC) (~07/14/20) HTN (hypertension) Hypertension Iron deficiency anemia due to chronic blood loss Near syncope Nonrheumatic aortic (valve) stenosis [place] (obstructive sleep apnea) Osteoarthritis Paroxysmal atrial fibrillation PND (post-nasal drip) Psoriasis Pure hypercholesterolemia Sleep disorder Sleep disorder breathing SOB (shortness of breath) on exertion TIA (transient ischemic attack) TIA (transient ischemic attack) Tobacco abuse Type 2 diabetes mellitus UGIB (upper gastrointestinal bleed) Home Medications ezetimibe 10 mg PO QHS 09/01/13 [History Last Taken 08/25/21] pantoprazole 40 mg PO BID 09/01/13 [History Last Taken 08/27/21] metoprolol tartrate 100 mg tablet 100 mg PO BID #180 tab 06/13/19 [Rx Last Taken 08/27/21] nitroglycerin 0.4 mg sublingual tablet 0.4 mg SUBLINGUAL Q5M PRN #25 tab 10/05/18 [Rx Last Taken 04/12/19] acetaminophen 1,000 mg PO DAILY PRN PRN 04/12/19 [History Last Taken 02/19/21] niacin (inositol niacinate) 1,000 mg PO BID 04/12/19 [History Last Taken 08/27/21] furosemide [Lasix] 10 mg PO DAILY PRN 12/15/20 [History Last Taken 08/27/21] clopidogrel 75 mg PO DAILY 04/18/21 [History Last Taken 08/27/21] ascorbic acid (vitamin C) 500 mg capsule 1,000 mg PO DAILY cap 07/15/21 [History Last Taken 08/27/21] cholecalciferol (vitamin D3) 25 mcg (1,000 unit) capsule 125 mcg PO DAILY cap 07/15/21 [History Last Taken 08/27/21] levocetirizine 5 mg tablet 5 mg PO DAILY 07/15/21 [History Last Taken 08/26/21] vitamin H52-yhvij acid 5,000 tab PO DAILY 07/27/21 [History Last Taken 08/27/21] Allergy/AdvReac Type Severity Reaction Status Date / Time Sulfa (Sulfonamide Allergy Severe HEART Verified 08/27/21 11:30 Antibiotics) RACING Latex, Natural Rubber Allergy Rash, Verified 08/27/21 11:30 psioriasis amoxicillin [From Augmentin] AdvReac Nausea Verified 08/27/21 11:30 atorvastatin [From Lipitor] AdvReac Other Verified 08/27/21 11:30 clavulanic acid AdvReac Nausea Verified 08/27/21 11:30 [From Augmentin] Iodinated Contrast Media AdvReac Other Verified 08/27/21 11:30 [CONTRASTS] niacin AdvReac Other Verified 08/27/21 11:30 [From Niaspan Extended-Release] red dye AdvReac NEEDS Verified 08/27/21 11:30 FOLLOW-UP rosuvastatin [From Crestor] AdvReac Other Verified 08/27/21 11:30 turkey grease AdvReac Rash Uncoded 08/27/21 11:30 Family History Mother Heart disease Diabetes Father Heart disease Cancer Sister Cancer COPD (chronic obstructive pulmonary disease) Surgical History History of aortic valve replacement with bioprosthetic valve (~09/06/13) History of bilateral carotid endarterectomy History of coronary artery bypass surgery (~09/06/13) History of left mastectomy (~1998) History of right mastectomy (~1998) History of tubal ligation Social History household members: none housing: house Smoking Status: Former smoker how long ago did patient quit smokin second hand exposure: No alcohol intake: never substance use type: does not use caffeine: Yes Type: coffee Number of servings: 2 and tea what type of physical activity do you participate in: none franci/adventism: Rastafari seatbelt use: always do you feel safe at home: Yes ROS ROS ED Constitutional Constitutional ED: Denies chills or fever(s) Eyes Eyes: Denies blurry vision or change in vision ENT ENT ED: Denies rhinorrhea or sore throat Cardiovascular Cardiovascular: Denies chest pain or palpitations Respiratory/Chest Respiratory/Chest: Denies cough or dyspnea Gastrointestinal Gastrointestinal: Reports abdominal pain, diarrhea, melena and nausea; Denies vomiting Genitourinary Genitourinary ED: Denies dysuria or hematuria Musculoskeletal Musculoskeletal: Reports back pain; Denies neck pain Integumentary Reports rash; Denies abscess Neurologic Neurologic: Denies headache(s) or weakness Allergic/Immunologic Allergic/Immunologic ED: Denies mouth swelling or urticaria EXAM Physical Exam Const Vital Signs: 08/27/21 11:30 08/27/21 11:47 08/27/21 12:28 Temperature 96.9 F L Temperature Source Temporal Pulse Rate 91 Pulse Rate [Lying] 86 Pulse Rate [Sitting (for 1 minute prior to obtaining)] 90 Pulse Rate [Standing (for 1 minute prior to obtaining)] 103 H Respiratory Rate 14 Respiratory Effort Normal Respiratory Pattern Normal Blood Pressure 134/48 H Blood Pressure [Lying] 132/44 H Blood Pressure [Sitting (for 1 minute prior to obtaining)] 131/44 H Blood Pressure [Standing (for 1 minute prior to obtaining)] 132/53 H Blood Pressure Mean 76 Blood Pressure Mean [Lying] 73 Blood Pressure Mean [Sitting (for 1 minute prior to obtaining)] 73 Blood Pressure Mean [Standing (for 1 minute prior to obtaining)] 79 Blood Pressure Source Blood Pressure Position Blood Pressure Location Pulse Ox 100 Oxygen Delivery Method Room Air 08/27/21 13:03 08/27/21 14:22 08/27/21 14:37 Temperature 98.2 F 97.1 F L Temperature Source Temporal Temporal Pulse Rate 90 93 95 Pulse Rate [Lying] Pulse Rate [Sitting (for 1 minute prior to obtaining)] Pulse Rate [Standing (for 1 minute prior to obtaining)] Respiratory Rate 16 18 16 Respiratory Effort Respiratory Pattern Blood Pressure 137/45 H 140/51 H 122/39 H Blood Pressure [Lying] Blood Pressure [Sitting (for 1 minute prior to obtaining)] Blood Pressure [Standing (for 1 minute prior to obtaining)] Blood Pressure Mean 75 80 66 Blood Pressure Mean [Lying] Blood Pressure Mean [Sitting (for 1 minute prior to obtaining)] Blood Pressure Mean [Standing (for 1 minute prior to obtaining)] Blood Pressure Source Monitor Monitor Blood Pressure Position Semi-Fowlers Semi-Fowlers Blood Pressure Location Left Arm Left Arm Pulse Ox 99 98 97 Oxygen Delivery Method Room Air Room Air Room Air 08/27/21 15:31 08/27/21 15:56 08/27/21 16:36 Temperature 97 F L 97.1 F L 97.7 F L Temperature Source Temporal Temporal Temporal Pulse Rate 84 80 81 Pulse Rate [Lying] Pulse Rate [Sitting (for 1 minute prior to obtaining)] Pulse Rate [Standing (for 1 minute prior to obtaining)] Respiratory Rate 19 H 19 H 17 Respiratory Effort Respiratory Pattern Blood Pressure 136/57 H 136/57 H 132/54 H Blood Pressure [Lying] Blood Pressure [Sitting (for 1 minute prior to obtaining)] Blood Pressure [Standing (for 1 minute prior to obtaining)] Blood Pressure Mean 83 83 80 Blood Pressure Mean [Lying] Blood Pressure Mean [Sitting (for 1 minute prior to obtaining)] Blood Pressure Mean [Standing (for 1 minute prior to obtaining)] Blood Pressure Source Monitor Monitor Blood Pressure Position Semi-Fowlers Semi-Fowlers Blood Pressure Location Left Arm Pulse Ox 100 98 99 Oxygen Delivery Method Room Air Room Air Room Air 08/27/21 16:47 08/27/21 17:00 Temperature 97.1 F L Temperature Source Temporal Pulse Rate 82 87 Pulse Rate [Lying] Pulse Rate [Sitting (for 1 minute prior to obtaining)] Pulse Rate [Standing (for 1 minute prior to obtaining)] Respiratory Rate 19 H 16 Respiratory Effort Respiratory Pattern Blood Pressure 132/54 H 124/53 H Blood Pressure [Lying] Blood Pressure [Sitting (for 1 minute prior to obtaining)] Blood Pressure [Standing (for 1 minute prior to obtaining)] Blood Pressure Mean 80 76 Blood Pressure Mean [Lying] Blood Pressure Mean [Sitting (for 1 minute prior to obtaining)] Blood Pressure Mean [Standing (for 1 minute prior to obtaining)] Blood Pressure Source Monitor Blood Pressure Position Semi-Fowlers Blood Pressure Location Left Arm Pulse Ox 100 100 Oxygen Delivery Method Room Air Room Air Positive well nourished and well developed General Appearance ED: well developed and NAD HEENT Reports moist mucous membranes Neck supple and no JVD Resp normal respiratory effort and clear to auscultation bilaterally Cardio regular rate and regular rhythm GI Palpation: soft and tender RUQ; Negative for guarding or rebound tenderness present Neuro CN's II-XII intact bilaterally, moves all extremities and no sensory deficits noted Sensorium / Orientation: alert, oriented to person, oriented to place and oriented to time Motor Exam: strength 5/5 throughout Psych mental status grossly normal MDM MDM MDM Narrative Medical decision making narrative: CBC shows a hemoglobin of 5.9 and hematocrit of 20.6. Platelets were normal. PT was 16.0 and INR is 1.3. PTT was normal. Comprehensive metabolic profile showed an elevated BUN of 43 with a normal creatinine of 0.92. Glucose was 132. The remainder was essentially within normal limits. EKG was obtained. On my interpretation, it shows a normal sinus rhythm with a rate of 89. There is a left bundle branch block pattern noted. There are no acute ST or T wave changes noted. Patient was typed and crossmatched for a unit of packed red blood cells. This was transfused. Case was discussed with the staff at Dr. Montague's office. They noted that the patient had lesions in the small bowel that were bleeding on the capsule endoscopy. These lesions are farther than Dr. Montague will be able to see on endoscopy. Because of this, he recommended transfer the patient to a higher level of care. Since the patient has an appoint with a bank manager, outpatient facility physical therapist, and cardiothoracic surgeon at [facility], case was discussed with the [facility] transfer line. Case was discussed with Dr. Ramires. She accepted the patient for transfer however, she stated that it may be a couple days before a bed would become available for the patient. Case was discussed with the hospitalist here. She will admit the patient to her service. Patient understood and was agreeable with the plan. All questions were answered. Lab Data Attestation: I reviewed the patient's lab results. Labs: Laboratory Results - last 24 hr 08/27/21 08/27/21 08/27/21 12:00 12:00 12:00 WBC 9.7 RBC 2.09 L Hgb 5.9 L* Hct 20.6 L MCV 98.6 MCH 28.2 MCHC 28.6 L RDW Std Deviation 68.0 H RDW Coeff of Velasquez 18.9 H Plt Count 251 MPV 10.3 Immature Gran % (Auto) 0.600 Neut % (Auto) 81.9 H Lymph % (Auto) 9.5 L [place] % (Auto) 6.8 Eos % (Auto) 0.9 Baso % (Auto) 0.3 Absolute Neuts (auto) 7.9 H Absolute Lymphs (auto) 0.92 Nucleated RBC % 0.3 Differential Comment SCANNED Diff Path Review May foll Hypochromasia 1+ Anisocytosis 2+ Microcytosis 1+ Macrocytosis 1+ PT 16.0 H INR 1.3 APTT 28.7 Sodium 141 Potassium 4.4 Chloride 108 H Carbon Dioxide 26.0 Anion Gap 7 BUN 43 H Creatinine 0.92 Estim Creat Clear Calc 37.93 Est GFR (MDRD) Af Amer 75 Est GFR (MDRD) Non-Af 62 BUN/Creatinine Ratio 46.5 H Glucose 132 H Calcium 8.3 L Total Bilirubin 0.70 AST 19 ALT 15 Alkaline Phosphatase 44 L Total Protein 6.0 L Albumin 3.3 Globulin 2.7 Albumin/Globulin Ratio 1.2 Urine Color Urine Clarity Urine pH Ur Specific [place] Urine Protein Urine Glucose (UA) Urine Ketones Urine Occult Blood Urine Nitrite Urine Bilirubin Urine Urobilinogen Ur Leukocyte Esterase Urine RBC Urine WBC Ur Squamous Epith Cells Urine Bacteria Urine Mucus Blood Type Antibody Screen Crossmatch 08/27/21 08/27/21 08/27/21 12:00 12:45 12:45 WBC RBC Hgb Hct MCV MCH MCHC RDW Std Deviation RDW Coeff of Velasquez Plt Count MPV Immature Gran % (Auto) Neut % (Auto) Lymph % (Auto) [place] % (Auto) Eos % (Auto) Baso % (Auto) Absolute Neuts (auto) Absolute Lymphs (auto) Nucleated RBC % Differential Comment Diff Path Review Hypochromasia Anisocytosis Microcytosis Macrocytosis PT INR APTT Sodium Potassium Chloride Carbon Dioxide Anion Gap BUN Creatinine Estim Creat Clear Calc Est GFR (MDRD) Af Amer Est GFR (MDRD) Non-Af BUN/Creatinine Ratio Glucose Calcium Total Bilirubin AST ALT Alkaline Phosphatase Total Protein Albumin Globulin Albumin/Globulin Ratio Urine Color Urine Clarity Urine pH Ur Specific [place] Urine Protein Urine Glucose (UA) Urine Ketones Urine Occult Blood Urine Nitrite Urine Bilirubin Urine Urobilinogen Ur Leukocyte Esterase Urine RBC Urine WBC Ur Squamous Epith Cells Urine Bacteria Urine Mucus Blood Type Cancelled A POSITIVE Antibody Screen Cancelled NEGATIVE Crossmatch See Detail 08/27/21 18:35 WBC RBC Hgb Hct MCV MCH MCHC RDW Std Deviation RDW Coeff of Velasquez Plt Count MPV Immature Gran % (Auto) Neut % (Auto) Lymph % (Auto) [place] % (Auto) Eos % (Auto) Baso % (Auto) Absolute Neuts (auto) Absolute Lymphs (auto) Nucleated RBC % Differential Comment Diff Path Review Hypochromasia Anisocytosis Microcytosis Macrocytosis PT INR APTT Sodium Potassium Chloride Carbon Dioxide Anion Gap BUN Creatinine Estim Creat Clear Calc Est GFR (MDRD) Af Amer Est GFR (MDRD) Non-Af BUN/Creatinine Ratio Glucose Calcium Total Bilirubin AST ALT Alkaline Phosphatase Total Protein Albumin Globulin Albumin/Globulin Ratio Urine Color Yellow Urine Clarity Clear Urine pH 7.0 Ur Specific [place] 1.005 Urine Protein Negative Urine Glucose (UA) Normal Urine Ketones 5 H Urine Occult Blood 50 H Urine Nitrite Negative Urine Bilirubin Negative Urine Urobilinogen Normal Ur Leukocyte Esterase 25 H Urine RBC 0 SEEN Urine WBC 0-5 SEEN Ur Squamous Epith Cells 0-5 SEEN Urine Bacteria 0 SEEN Urine Mucus 0 SEEN Blood Type Antibody Screen Crossmatch EKG Initial EKG: Attestation: I personally reviewed and interpreted this EKG as follows: Interpretation: Sinus Rhythm (89), No Acute Injury Pattern and LBBB Prior EKG tracings: available for review Prior: Unchanged (08/11/2021) Discharge Plan Dx/Rx/DC Orders Clinical Impression: Gastrointestinal bleeding, upper, Anemia Disposition Disposition: Acute Care Hospital [facility] Discharge Date/Time: 08/27/21 20:05
[2021-08-27 12:41] LABS: Absolute Lymphocyte Count 0.92 X10^3/uL (0.83-4.51); Absolute Neutrophil Count 7.9 X10^3/uL (2.0-7.7); Basophil# 0.03 X10^3/uL; Basophil% 0.3 % (0-1); Eosinophil# 0.09 X10^3/uL; Eosinophils% 0.9 % (0-5); Hematocrit 20.6 % (37-47); Hemoglobin 5.9 g/dL (12.0-15.0); Lymphocyte # 0.92 X10^3/ul (0.83-4.51); Lymphocyte % 9.5 % (19-41); Mean Corp Hgb Conc 28.6 g/dL (32-36); Mean Corpuscular Hgb 28.2 pg (27.0-32.0); Mean Corpuscular Volume 98.6 fL (81-99); Mean Platelet Vol. 10.3 fl (6.2-12.0); Monocyte# 0.66 X10^3/uL; Monocyte% 6.8 % (0-10); NRBC Flagged by Analyzer 0.3 % (0-5); Neutrophil # 7.89 X10^3/uL (2.7-7.7); Neutrophil % 81.9 % (47-70); POSITIVE COUNT YES; POSITIVE MORPHOLOGY YES; Platelet Count 251 K/mm3 (150-450); RBC Distribution Width CV 18.9 % (11.6-14.6); Red Blood Count 2.09 M/mm3 (4.2-5.4); White Blood Count 9.7 K/mm3 (4.4-11.0)
[2021-08-27 12:42] LABS: Differential Indicated SCAN CRITERIA MET
[2021-08-27 12:51] LABS: International Normalized Ratio 1.3; Partial Thromboplast Time 28.7 Seconds (24.1-36.2)
[2021-08-27 12:58] LABS: ALB/GLOB Ratio 1.2 RATIO (0.9-2.4); AST(SGOT) 19 U/L (15-37); Alanine Aminotransfer ALT/SGPT 15 U/L (13-56); Albumin, Serum 3.3 g/dL (3.2-5.0); Alkaline Phosphatase 44 U/L (45-117); Anion Gap 7 (5-15); BUN 43 mg/dL (7-18); BUN/Creat Ratio 46.5 RATIO (10-20); Calcium,Total 8.3 mg/dL (8.5-10.1); Chloride 108 mmol/L (98-107); Creatinine, Serum 0.92 mg/dL (0.55-1.02); EST Glomerular Filtration Rate 62 mL/min (>60); Est Glom Filt Rate - Afr Amer 75 mL/min (>60); Estimated Creatinine Clearance 37.93 ml/min; Globulin 2.7 g/dL (2.2-4.2); Glucose 132 mg/dL (74-106); Potassium 4.4 mmol/L (3.5-5.1); Sodium Level 141 mmol/L (136-145)
[2021-08-27 13:11] LABS: Anisocytosis 2+; Differential Comment SCANNED
[2021-08-27 13:12] LABS: Hypochromasia 1+; Macrocytosis 1+; Microcytosis 1+
--- NOTE | 2021-08-27 13:19 | EKG12_ITS ---
Test Reason : CHEST PAIN Blood Pressure : / mmHG Vent. Rate : 089 BPM Atrial Rate : 089 BPM P-R Int : 154 ms QRS Dur : 134 ms QT Int : 384 ms P-R-T Axes : 058 -20 122 degrees QTc Int : 467 ms Normal sinus rhythm Left bundle branch block Abnormal ECG Confirmed by FAYE DELGADILLO, KAREN ([id number]), brands editor CHRISTIN BARTHOLOMEW ([id number]) on 08/31/2021 1:45:38 PM Referred By: LACEY Confirmed By:KAREN MCKINNEY MD
[2021-08-27 18:39] LABS: Bacteria 0 SEEN /hpf (None Seen); Mucous, Urine 0 SEEN /hpf (<or=2+); Red Blood Cells-Urine 0 SEEN /hpf (0-5)
[2021-08-27 18:40] LABS: Color, Urine Yellow (Yellow); Glucose, Dipstick Normal (Normal); Ketone-Dipstick 5 mg/dl (Negative); Leukocyte Esterase-Dipstick 25 /ul (Negative); Nitrite-Dipstick Negative (Negative); Occult Blood-Urine 50 /ul (Negative); Protein-Dipstick Negative (Negative); Specific Gravity, Urine 1.005 (1.002-1.030); Urine Bilirubin Dipstick Negative (Negative); Urine Clarity Clear (Clear); Urine Urobilinogen Normal (Normal)
[2021-08-27 18:46] LABS: Squamous Epithelial Cells - UA 0-5 SEEN /hpf (5-10); White Blood Cells 0-5 SEEN /hpf (0-5)
--- NOTE | 2021-08-27 18:48 | HP.PCM.HOS_ITS ---
HPI - General General Date of Admission: 08/27/21 Date of Service: 08/27/21 Chief Complaint: Abdominal cramping, RUQ chronic pain, black tarry stools and BRB HPI Narrative The patient is an 81 y/o F w/ PMHx: Chronic normocytic anemia/Fe deficiency anemia on chronic IV and oral Fe supplementation, CAD s/p CABG, HTN, HLD, Carotid sease s/p BL CEA, GERD, PAF, [place], Hx TIA, Former tobacco use, Valvular heart disease s/p AVR bioprosthetic, Hx Breast CA s/p BL mastectomy, Diabetes mellitus type II, history of GI bleeds following w/ Dr. Montague who presents to the [facility] ED on 08/27/21 with history of black tarry stools and also bright red in h er stools with mildly loose stools with associated abdominal RUQ pain with history of biliary colic starting the day prior and mild generalized abdominal cramping as well but this has since resolved. She has been suffering from biliary colic for a lengthy period but because of her underlying health issues has not been a great candidate surgically. She had a recent capsule endoscopy with noted lesions in the small bowel which Dr. Montague noted he could not reach with his scopes and recommended transfer with planned transfer to [facility]. Work-up in the ED included T96.9, heart rate 91, BP 134/48, respiratory rate 14, 100% on room air, orthostatics not marked appearing, CBC with WBC 9.7, hemoglo bin 5.9 noted to be 7.1 on 08/13/2021 slowly trending down from review of records since March at which point patient had been 10, platelet 251 with left shift, coags not marked appearing aside PT 16, CMP with chloride 108, BUN/creat 43/0.92, glucose 132 otherwise not marked appearing, urinalysis unremarkable, type and cross performed per ED physician for 1 unit PRBC. In the ED patient administered PRBC x 1 and was administered protonix 80 mg x 1. Of note accepting [facility] physician Dr. Ramires ([facility], accepted). [facility] Medical History (Updated 08/27/21 @ 18:48 by Anna Tuttle) Acute blood loss anemia Atherosclerotic heart disease of [place] coronary artery without angina pectoris Atypical chest pain Bilateral carotid artery stenosis Bilateral carotid bruits Biliary colic CAD (coronary artery disease) Carotid stenosis Cholelithiasis Jayson's syndrome Effusion, left knee Essential hypertension Former smoker Gallstones GERD (gastroesophageal reflux disease) History of left heart catheterization (LHC) (~07/14/20) HTN (hypertension) Hypertension Iron deficiency anemia due to chronic blood loss Near syncope Nonrheumatic aortic (valve) stenosis [place] (obstructive sleep apnea) Osteoarthritis Paroxysmal atrial fibrillation PND (post-nasal drip) Psoriasis Pure hypercholesterolemia Sleep disorder Sleep disorder breathing SOB (shortness of breath) on exertion TIA (transient ischemic attack) TIA (transient ischemic attack) Tobacco abuse Type 2 diabetes mellitus UGIB (upper gastrointestinal bleed) Home Medications ezetimibe 10 mg PO QHS 09/01/13 [History Last Taken 08/25/21] pantoprazole 40 mg PO BID 09/01/13 [History Last Taken 08/27/21] metoprolol tartrate 100 mg tablet 100 mg PO BID #180 tab 10/05/18 [Rx Last Taken 08/27/21] nitroglycerin 0.4 mg sublingual tablet 0.4 mg SUBLINGUAL Q5M PRN #25 tab 10/05/18 [Rx Last Taken 04/12/19] acetaminophen 1,000 mg PO DAILY PRN PRN 04/12/19 [History Last Taken 02/19/21] niacin (inositol niacinate) 1,000 mg PO BID 04/12/19 [History Last Taken 08/27/21] furosemide [Lasix] 10 mg PO DAILY PRN 12/15/20 [History Last Taken 08/27/21] clopidogrel 75 mg PO DAILY 04/18/21 [History Last Taken 08/27/21] ascorbic acid (vitamin C) 500 mg capsule 1,000 mg PO DAILY cap 07/15/21 [History Last Taken 08/27/21] cholecalciferol (vitamin D3) 25 mcg (1,000 unit) capsule 125 mcg PO DAILY cap 07/15/21 [History Last Taken 08/27/21] levocetirizine 5 mg tablet 5 mg PO DAILY 07/15/21 [History Last Taken 08/26/21] vitamin Q50-ohhwm acid 5,000 tab PO DAILY 07/27/21 [History Last Taken 08/27/21] Allergy/AdvReac Type Severity Reaction Status Date / Time Sulfa (Sulfonamide Allergy Severe HEART Verified 08/27/21 11:30 Antibiotics) RACING Latex, Natural Rubber Allergy Rash, Verified 08/27/21 11:30 psioriasis amoxicillin [From Augmentin] AdvReac Nausea Verified 08/27/21 11:30 atorvastatin [From Lipitor] AdvReac Other Verified 08/27/21 11:30 clavulanic acid AdvReac Nausea Verified 08/27/21 11:30 [From Augmentin] Iodinated Contrast Media AdvReac Other Verified 08/27/21 11:30 [CONTRASTS] niacin AdvReac Other Verified 08/27/21 11:30 [From Niaspan Extended-Release] red dye AdvReac NEEDS Verified 08/27/21 11:30 FOLLOW-UP rosuvastatin [From Crestor] AdvReac Other Verified 08/27/21 11:30 turkey grease AdvReac Rash Uncoded 08/27/21 11:30 Family History Mother Heart disease Diabetes Father Heart disease Cancer Sister Cancer COPD (chronic obstructive pulmonary disease) Surgical History History of aortic valve replacement with bioprosthetic valve (~09/06/13) History of bilateral carotid endarterectomy History of coronary artery bypass surgery (~09/06/13) History of left mastectomy (~1998) History of right mastectomy (~1998) History of tubal ligation Social History household members: none housing: house Smoking Status: Former smoker how long ago did patient quit smokin second hand exposure: No alcohol intake: never substance use type: does not use caffeine: Yes Type: coffee Number of servings: 2 and tea what type of physical activity do you participate in: none franci/anabaptist: Voodoo seatbelt use: always do you feel safe at home: Yes ROS ROS Narrative Admission Review of Systems: CONSTITUTIONAL: No weight loss, fever, chills, + weakness or fatigue. HEENT: Eyes: No visual loss, blurred vision, double vision or yellow sclerae. Ears, Nose, Throat: No hearing loss, sneezing, congestion, runny nose or sore throat. SKIN: No rash or itching, lesions, wounds. CARDIOVASCULAR: No chest pain, chest pressure or chest discomfort, palpitations, edema, orthopnea, syncopal events. RESPIRATORY: No shortness of breath, cough or sputum, wheezing, hemoptysis. GASTROINTESTINAL: + anorexia, abdominal pain, blood tarry stools and bright red blood per rectum, loose stools, no specific nausea or emesis. GENITOURINARY: No dysuria, frequency, urgency or retention. NEUROLOGICAL: No headache, dizziness, syncope, paralysis, ataxia, numbness or tingling in the extremities, focal weakness, change in bowel or bladder control, seizure. MUSCULOSKELETAL: + muscle, back pain, joint pain or stiffness. HEMATOLOGIC: + anemia, bleeding or bruising. LYMPHATICS: No enlarged nodes. No history of splenectomy. PSYCHIATRIC: No history of depression or anxiety. ENDOCRINOLOGIC: No reports of sweating, cold or heat intolerance. No polyuria or polydipsia. ALLERGIES: No history of asthma, hives, eczema or rhinitis. Vital Signs Vital Signs Vital Signs: 08/27/21 11:30 08/27/21 11:47 08/27/21 12:28 Temperature 96.9 F L Temperature Source Temporal Pulse Rate 91 Pulse Rate [Lying] 86 Pulse Rate [Sitting (for 1 minute prior to obtaining)] 90 Pulse Rate [Standing (for 1 minute prior to obtaining)] 103 H Respiratory Rate 14 Respiratory Effort Normal Respiratory Pattern Normal Blood Pressure 134/48 H Blood Pressure [Lying] 132/44 H Blood Pressure [Sitting (for 1 minute prior to obtaining)] 131/44 H Blood Pressure [Standing (for 1 minute prior to obtaining)] 132/53 H Blood Pressure Mean 76 Blood Pressure Mean [Lying] 73 Blood Pressure Mean [Sitting (for 1 minute prior to obtaining)] 73 Blood Pressure Mean [Standing (for 1 minute prior to obtaining)] 79 Blood Pressure Source Blood Pressure Position Blood Pressure Location Pulse Ox 100 Oxygen Delivery Method Room Air 08/27/21 13:03 08/27/21 14:22 08/27/21 14:37 Temperature 98.2 F 97.1 F L Temperature Source Temporal Temporal Pulse Rate 90 93 95 Pulse Rate [Lying] Pulse Rate [Sitting (for 1 minute prior to obtaining)] Pulse Rate [Standing (for 1 minute prior to obtaining)] Respiratory Rate 16 18 16 Respiratory Effort Respiratory Pattern Blood Pressure 137/45 H 140/51 H 122/39 H Blood Pressure [Lying] Blood Pressure [Sitting (for 1 minute prior to obtaining)] Blood Pressure [Standing (for 1 minute prior to obtaining)] Blood Pressure Mean 75 80 66 Blood Pressure Mean [Lying] Blood Pressure Mean [Sitting (for 1 minute prior to obtaining)] Blood Pressure Mean [Standing (for 1 minute prior to obtaining)] Blood Pressure Source Monitor Monitor Blood Pressure Position Semi-Fowlers Semi-Fowlers Blood Pressure Location Left Arm Left Arm Pulse Ox 99 98 97 Oxygen Delivery Method Room Air Room Air Room Air 08/27/21 15:31 08/27/21 15:56 08/27/21 16:36 Temperature 97 F L 97.1 F L 97.7 F L Temperature Source Temporal Temporal Temporal Pulse Rate 84 80 81 Pulse Rate [Lying] Pulse Rate [Sitting (for 1 minute prior to obtaining)] Pulse Rate [Standing (for 1 minute prior to obtaining)] Respiratory Rate 19 H 19 H 17 Respiratory Effort Respiratory Pattern Blood Pressure 136/57 H 136/57 H 132/54 H Blood Pressure [Lying] Blood Pressure [Sitting (for 1 minute prior to obtaining)] Blood Pressure [Standing (for 1 minute prior to obtaining)] Blood Pressure Mean 83 83 80 Blood Pressure Mean [Lying] Blood Pressure Mean [Sitting (for 1 minute prior to obtaining)] Blood Pressure Mean [Standing (for 1 minute prior to obtaining)] Blood Pressure Source Monitor Monitor Blood Pressure Position Semi-Fowlers Semi-Fowlers Blood Pressure Location Left Arm Pulse Ox 100 98 99 Oxygen Delivery Method Room Air Room Air Room Air 08/27/21 16:47 08/27/21 17:00 Temperature 97.1 F L Temperature Source Temporal Pulse Rate 82 87 Pulse Rate [Lying] Pulse Rate [Sitting (for 1 minute prior to obtaining)] Pulse Rate [Standing (for 1 minute prior to obtaining)] Respiratory Rate 19 H 16 Respiratory Effort Respiratory Pattern Blood Pressure 132/54 H 124/53 H Blood Pressure [Lying] Blood Pressure [Sitting (for 1 minute prior to obtaining)] Blood Pressure [Standing (for 1 minute prior to obtaining)] Blood Pressure Mean 80 76 Blood Pressure Mean [Lying] Blood Pressure Mean [Sitting (for 1 minute prior to obtaining)] Blood Pressure Mean [Standing (for 1 minute prior to obtaining)] Blood Pressure Source Monitor Blood Pressure Position Semi-Fowlers Blood Pressure Location Left Arm Pulse Ox 100 100 Oxygen Delivery Method Room Air Room Air Weight Weight: 141 lb Body Mass Index (BMI) 25.7 Physical Exam Narrative Physical Examination: General: Awake, alert, oriented x 3 and cooperative, seated upright in the ED bed in no apparent distress. Skin: Pale color, normal turgor, no icterus, no cyanosis. HEENT: AT/NC, EOMI, PERRLA, mildly dry MM, no carotid bruits or JVD noted. Lungs: Mild diminished, greater bases, appropriate effort, no rales, ronchi or wheezing. Heart: Currently regular rate and rhythm; no gallop, rub audible, + SM. Abdomen: Soft, mild generalized discomfort with palpation but no rebound or guarding including the right upper quadrant, no obvious distention, hyperactive bowel sounds, no obvious HSM. Extremities: No cyanosis, clubbing, or edema. Neurological: Patient awake, alert, oriented as noted, cognitive function intact; pupils equally reactive to light and accommodation, cranial nerves II- XII grossly normal, moving all 4 extremities, no focal deficits, strength moderately to severely globally decreased secondary to acute presentation Psychiatric: Affect appears normal, extremely talkative, no acute evidence of depressive or anxiety feelings. Results Lab / Micro Data Result Diagrams: 08/27/21 12:00 08/27/21 12:00 Labs: Laboratory Results - last 24 hr 08/27/21 12:00: WBC 9.7, RBC 2.09 L, Hgb 5.9 L*, Hct 20.6 L, MCV 98.6, MCH 28.2, MCHC 28.6 L, RDW Std Deviation 68.0 H, RDW Coeff of Vel[place] 18.9 H, Plt Count 251, MPV 10.3, Immature Gran % (Auto) 0.600, Neut % (Auto) 81.9 H, Lymph % (Auto) 9.5 L, [place] % (Auto) 6.8, Eos % (Auto) 0.9, Baso % (Auto) 0.3, Absolute Neuts (auto) 7.9 H, Absolute Lymphs (auto) 0.92, Nucleated RBC % 0.3, Differential Comment SCANNED, Diff Path Review May foll, Hypochromasia 1+, Anisocytosis 2+, Microcytosis 1+, Macrocytosis 1+ 08/27/21 12:00: PT 16.0 H, INR 1.3, APTT 28.7 08/27/21 12:00: Sodium 141, Potassium 4.4, Chloride 108 H, Carbon Dioxide 26.0, Anion Gap 7, BUN 43 H, Creatinine 0.92, Estim Creat Clear Calc 37.93, Est GFR (MDRD) Af Amer 75, Est GFR (MDRD) Non-Af 62, BUN/Creatinine Ratio 46.5 H, Glucos e 132 H, Calcium 8.3 L, Total Bilirubin 0.70, AST 19, ALT 15, Alkaline Phosphatase 44 L, Total Protein 6.0 L, Albumin 3.3, Globulin 2.7, Albumin/Globulin Ratio 1.2 08/27/21 12:00: Blood Type Cancelled, Antibody Screen Cancelled 08/27/21 12:45: Blood Type A POSITIVE, Antibody Screen NEGATIVE 08/27/21 12:45: Crossmatch See Detail 08/27/21 18:35: Urine Color Yellow, Urine Clarity Clear, Urine pH 7.0, Ur Specific [place] 1.005, Urine Protein Negative, Urine Glucose (UA) Normal, Urine Ketones 5 H, Urine Occult Blood 50 H, Urine Nitrite Negative, Urine Bilirubin Negative, Urine Urobilinogen Normal, Ur Leukocyte Esterase 25 H, Urine RBC 0 SEEN, Urine WBC 0-5 SEEN, Ur Squamous Epith Cells 0-5 SEEN, Urine Bacteria 0 SEEN, Urine Mucus 0 SEEN Micro: Microbiology 08/27/21 15:15 Nasal Secretion SARS-CoV-2 Antigen (Rapid) - Final Assessment & Plan Assessment/Plan (1) Acute blood loss anemia: (2) Gastrointestinal bleeding, upper: PLAN: The patient is an 81 y/o F w/ PMHx: Chronic normocytic anemia/Fe deficiency anemia on chronic IV and oral Fe supplementation, CAD s/p CABG, HTN, HLD, Carotid stenosis s/p BL CEA, GERD, PAF, [place], Hx TIA, Former tobacco use, Valvular heart disease s/p AVR bioprosthetic, Hx Breast CA s/p BL mastectomy, Diabetes mellitus type II, history of GI bleeds following w/ Friend who presents to the [facility] ED on 08/27/21 with history of black tarry stools and also amy ght red in her stools with mildly loose stools with associated abdominal RUQ pain with history of biliary colic starting the day prior and mild generalized abdominal cramping as well but this has since resolved. #1. Acute GI Bleed w/ resultant Acute Blood Loss Anemia on chronic normocytic anemia/iron deficiency anemia: Will admit to PCU given hemoglobin level, maintain on judicious IV fluids, hold antiplatelet therapy, trend H&H, continue with planned PRBC administration initiated per ED with further as needed pending repeat levels, maintain on IV PPI, allow clears only, plan transfer to [facility] once bed available but in the interim we will have patient follow-up with Dr. Montague. #2. CAD: Status post CABG, will hold all antiplatelet therapy, continue metoprolol, not on SOCORRO inhibitor or ARB, not on statin therapy but on ezetimibe. #3. Hypertension: Continue home regimen including metoprolol, Lasix with hold parameters especially given presentation #1, PRN hydralazine. #4. Hyperlipidemia: Not on statin therapy, will continue ezetimibe. #5. Bilateral carotid stenosis: Status post bilateral CEA, holding antiplatelet therapies as noted with #1, continue hypertensive regimen, anti-hyperlipidemia regimen, from review of records not on any medications for diabetes but history listed. #6. Diabetes mellitus type II: Not on regimen per current list, HgBA1c requested, maintaining on clears as noted, continue accu check w/ ISS. #7. Valvular heart disease: Status post AVR bioprosthetic valve, most recent noted echo in [facility] 05/15/2020 with normal LV systolic function, EF 65%, moderate concentric LVH, moderately enlarged LA, mild MVI, mild to moderate TVI, stable appearing bioprosthetic AV apparatus, severe aortic stenosis, RVSP 34 mmHg with evidence of diastolic dysfunction. #8. History TIA: Holding antiplatelet therapy, continue hypertensive regimen, hemoglobin C requested, continue ezetimibe regimen. #9. PAF: We will continue metoprolol, not anticoagulant appropriate at this time as noted. #10. Former tobacco use: Encourage continued tobacco cessation. #11. GERD: Maintained on IV PPI as noted. #12. [place]: CPAP q HS if amenable. #13. DVT prophylaxis: SCDs, holding chemoprophylaxis given acute presentation number 1. #14. CODE status: Patient MICHELLE is her son Don and living will is currently in place. Discussed CODE status at length including difference between FULL code, DNR-CCA and DNR-CC status. Following discussions about the differences in these status, requested Full Code. Advanced Care Planning Face to Face Time: 16 minutes. Charges/Coding Visit Charges Inpatient E&M: 46051 Init Hosp L3 Procedures Hospitalists Procedures: 27033 Advncd Care Plan 30 Min
[2021-08-27 20:31] LABS: Bedside Glucose 95 mg/dL (74-106)
[2021-08-27] MEDS: Ezetimibe 10 MG Tablet PO (21:33)
[2021-08-27] MEDS: Metoprolol Tartrate 100 MG Tablet PO (21:33)
[2021-08-27 23:38] LABS: Hematocrit 21.7 % (37-47); Hemoglobin 6.7 g/dL (12.0-15.0)
[2021-08-28] VITALS (15 sets, daily range): BP systolic 114–142; BP diastolic 41–54; PULSE 69–84; RESP 16–20; TEMP 36.3–36.7; O2SAT 96–98
--- NOTE | 2021-08-28 00:18 | CPS ---
[2021] Pt. declines ever using CPAP/BiPAP, and she has no interest in wearing one at this time. Pt. oxygenating fine on Room Air and showing no signs of respiratory distress or discomfort.
[2021-08-28 05:08] LABS: Absolute Lymphocyte Count 1.24 X10^3/uL (0.83-4.51); Basophil# 0.04 X10^3/uL; Basophil% 0.4 % (0-1); Eosinophil# 0.27 X10^3/uL; Eosinophils% 2.9 % (0-5); Hematocrit 24.5 % (37-47); Hemoglobin 7.6 g/dL (12.0-15.0); Lymphocyte # 1.24 X10^3/ul (0.83-4.51); Lymphocyte % 13.5 % (19-41); Mean Corpuscular Volume 93.5 fL (81-99); Monocyte# 0.62 X10^3/uL; Monocyte% 6.7 % (0-10); NRBC Flagged by Analyzer 0.2 % (0-5); Neutrophil # 6.97 X10^3/uL (2.7-7.7); Platelet Count 179 K/mm3 (150-450); RBC Distribution Width CV 17.6 % (11.6-14.6); RBC Distribution Width SD 56.7 fl (35.1-43.9); Red Blood Count 2.62 M/mm3 (4.2-5.4); White Blood Count 9.2 K/mm3 (4.4-11.0)
[2021-08-28 05:25] LABS: ALB/GLOB Ratio 1.2 RATIO (0.9-2.4); AST(SGOT) 18 U/L (15-37); Alanine Aminotransfer ALT/SGPT 15 U/L (13-56); Albumin, Serum 2.8 g/dL (3.2-5.0); Alkaline Phosphatase 35 U/L (45-117); Anion Gap 4 (5-15); BUN 29 mg/dL (7-18); BUN/Creat Ratio 33.6 RATIO (10-20); Calcium,Total 7.8 mg/dL (8.5-10.1); Chloride 111 mmol/L (98-107); Creatinine, Serum 0.86 mg/dL (0.55-1.02); EST Glomerular Filtration Rate 67 mL/min (>60); Est Glom Filt Rate - Afr Amer 81 mL/min (>60); Estimated Creatinine Clearance 40.58 ml/min; Globulin 2.3 g/dL (2.2-4.2); Glucose 96 mg/dL (74-106); Potassium 4.2 mmol/L (3.5-5.1); Protein, Total 5.1 g/dL (6.4-8.2); Sodium Level 142 mmol/L (136-145)
[2021-08-28 06:41] LABS: Bedside Glucose 104 mg/dL (74-106)
[2021-08-28 07:03] LABS: Hemoglobin A1c 4.9 % (3.8-5.6)
--- NOTE | 2021-08-28 07:47 | PCM.CONS.GEN ---
Assessment & Plan Assessment/Plan (1) Anemia: PLAN: Iron deficiency anemia secondary to recurrent GI bleed in the small bowel. Patient's hemoglobin is currently 7.6 after transfusion of 2 units of packed blood cells. This is up from 5.9. She is awaiting transfer to [facility] for intervention. (2) Gastrointestinal bleeding, upper: PLAN: GI bleeding in the small bowel seen at 20 minutes into the capsule. 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 She is high risk for recurrent GI bleeding. Continue to follow H&H. She may be candidate for octreotide if the transfer will be significantly delayed and if she continues to drop her blood count. HPI Consult Data Date of Consult: 08/28/21 HPI Narrative HPI Narrative: SAMMY SOLOMON, is a 81 F who presents due to worsening anemia. She has a significant cardiac history including atherosclerotic coronary artery disease, valvular heart disease status post valve replacement, diabetes, dyslipidemia, paroxysmal atrial fibrillation, hypertension, psoriasis, chronic GERD, and degenerative joint disease. She is not on anticoagulation or antiplatelet therapy. She has a history of chronic iron deficiency anemia for several years, has been on oral iron supplement and periodic IV iron under the care of her PCP. She is undergone endoscopic evaluation for iron deficiency anemia. She was discovered to have AV malformations in the past and upper and lower GI tract. Recently she underwent capsule endoscopy which had shown active bleeding in her small bowel. She was advised to come to the emergency room for evaluation after the bleeding was seen. In the ED her hemoglobin discovered to be 5.9. She has not seen any blood in her stool. She did receive blood transfusion overnight. She does complain of intermittent right upper quadrant pain due to history of biliary colic. However because of her significant cardiovascular disease and her ongoing anemia she has not been a surgical candidate. [facility] Medical History (Updated 08/27/21 @ 18:48 by Anna Tuttle) Acute blood loss anemia Atherosclerotic heart disease of [place] coronary artery without angina pectoris Atypical chest pain Bilateral carotid artery stenosis Bilateral carotid bruits Biliary colic CAD (coronary artery disease) Carotid stenosis Cholelithiasis Jayson's syndrome Effusion, left knee Essential hypertension Former smoker Gallstones GERD (gastroesophageal reflux disease) History of left heart catheterization (LHC) (~07/14/20) HTN (hypertension) Hypertension Iron deficiency anemia due to chronic blood loss Near syncope Nonrheumatic aortic (valve) stenosis [place] (obstructive sleep apnea) Osteoarthritis Paroxysmal atrial fibrillation PND (post-nasal drip) Psoriasis Pure hypercholesterolemia Sleep disorder Sleep disorder breathing SOB (shortness of breath) on exertion TIA (transient ischemic attack) TIA (transient ischemic attack) Tobacco abuse Type 2 diabetes mellitus UGIB (upper gastrointestinal bleed) Home Medications ezetimibe 10 mg PO QHS 09/01/13 [History Last Taken 08/25/21] pantoprazole 40 mg PO BID 09/01/13 [History Last Taken 08/27/21] metoprolol tartrate 100 mg tablet 100 mg PO BID #180 tab 10/05/18 [Rx Last Taken 08/27/21] nitroglycerin 0.4 mg sublingual tablet 0.4 mg SUBLINGUAL Q5M PRN #25 tab 10/05/18 [Rx Last Taken 04/12/19] acetaminophen 1,000 mg PO DAILY PRN PRN 04/12/19 [History Last Taken 02/19/21] niacin (inositol niacinate) 1,000 mg PO BID 04/12/19 [History Last Taken 08/27/21] furosemide [Lasix] 10 mg PO DAILY PRN 12/15/20 [History Last Taken 08/27/21] clopidogrel 75 mg PO DAILY 04/18/21 [History Last Taken 08/27/21] ascorbic acid (vitamin C) 500 mg capsule 1,000 mg PO DAILY cap 07/15/21 [History Last Taken 08/27/21] cholecalciferol (vitamin D3) 25 mcg (1,000 unit) capsule 125 mcg PO DAILY cap 07/15/21 [History Last Taken 08/27/21] levocetirizine 5 mg tablet 5 mg PO DAILY 07/15/21 [History Last Taken 08/26/21] vitamin N39-[id number] acid 5,000 tab PO DAILY 07/27/21 [History Last Taken 08/27/21] Allergy/AdvReac Type Severity Reaction Status Date / Time Sulfa (Sulfonamide Allergy Severe HEART Verified 08/27/21 11:30 Antibiotics) RACING Latex, Natural Rubber Allergy Rash, Verified 08/27/21 11:30 psioriasis amoxicillin [From Augmentin] AdvReac Nausea Verified 08/27/21 11:30 atorvastatin [From Lipitor] AdvReac Other Verified 08/27/21 11:30 clavulanic acid AdvReac Nausea Verified 08/27/21 11:30 [From Augmentin] Iodinated Contrast Media AdvReac Other Verified 08/27/21 11:30 [CONTRASTS] niacin AdvReac Other Verified 08/27/21 11:30 [From Niaspan Extended-Release] red dye AdvReac NEEDS Verified 08/27/21 11:30 FOLLOW-UP rosuvastatin [From Crestor] AdvReac Other Verified 08/27/21 11:30 turkey grease AdvReac Rash Uncoded 08/27/21 11:30 Family History Mother Heart disease Diabetes Father Heart disease Cancer Sister Cancer COPD (chronic obstructive pulmonary disease) Surgical History History of aortic valve replacement with bioprosthetic valve (~09/06/13) History of bilateral carotid endarterectomy History of coronary artery bypass surgery (~09/06/13) History of left mastectomy (~1998) History of right mastectomy (~1998) History of tubal ligation Social History household members: none housing: house Smoking Status: Former smoker how long ago did patient quit smokin second hand exposure: No alcohol intake: never substance use type: does not use caffeine: Yes Type: coffee Number of servings: 2 and tea what type of physical activity do you participate in: none franci/jewish: Anabaptist seatbelt use: always do you feel safe at home: Yes ROS Review of Systems ROS Unobtainable: other Constitutional Constitutional: Denies fatigue, fever(s), poor appetite, weight gain or weight loss ENT HEENT: Denies mouth lesions Cardiovascular Cardiovascular: Denies abdominal bloating, abdominal edema or abdominal pain Respiratory/Chest Respiratory/Chest: Denies change in mental status, change in phlegm color, chest congestion or chest tightness Gastrointestinal Gastrointestinal: Denies belching, bloating, change in bowel habits, change in stool character, chewing difficulty, coffee ground emesis, constipation, cramping, diarrhea, dyspepsia, dysphagia, early satiety, excessive flatus, fecal incontinence, heartburn, hematemesis, hematochezia, hemorrhoids, loose stools, melena, nausea, odynophagia, rectal bleeding, tenesmus, vomiting or weight changes Genitourinary Genitourinary: Denies abdominal discomfort, burning urination or itching Musculoskeletal Musculoskeletal: Reports as per HPI; Denies muscle weakness or myalgias Integumentary Integumentary: Denies jaundice Neurologic Neurologic: Denies lack of coordination or weakness Psychiatric Psychiatric: Denies confusion, depression, memory loss, mood swings, paranoia or suicidal ideation Endocrine Endocrinology: Denies systems reviewed and no addt'l complaints, except as documented Hematologic/Lymphatic Hematologic/Lymphatic: Denies anemia, easy bleeding, easy bruising or lymphadenopathy Allergic/Immunologic Allergic/Immunologic: Denies systems reviewed and no addt'l complaints, except as documented Physical Exam Const alert General Appearance: cooperative Orientation / Consciousness: oriented to person HEENT hearing grossly normal bilaterally Head and Scalp: normal to inspection Face and Sinus: face symmetric Nose: external nose normal Mouth: oral and palatal mucosa normal Eyes conjunctivae normal General Eye: normal appearance of both eyes Neck full ROM General: normal visual inspection Lymph Lymphatic: no lymphadenopathy noted Chest inspection of chest normal and palpation of chest normal Chest: symmetrical chest wall rise Resp normal respiratory effort Effort and Inspection: able to speak in complete sentences Cardio regular rate GI non-distended Percussion: normal to percussion Rectal Exam: deferred Neuro Speech: speech normal Gait (Neuro): normal gait Lab / Micro Data Result Diagrams: 08/28/21 04:50 08/28/21 04:50 Labs: Laboratory Results - last 24 hr 08/27/21 12:00: WBC 9.7, RBC 2.09 L, Hgb 5.9 L*, Hct 20.6 L, MCV 98.6, MCH 28.2, MCHC 28.6 L, RDW Std Deviation 68.0 H, RDW Coeff of [place] 18.9 H, Plt Count 251, MPV 10.3, Immature Gran % (Auto) 0.600, Neut % (Auto) 81.9 H, Lymph % (Auto) 9.5 L, [place] % (Auto) 6.8, Eos % (Auto) 0.9, Baso % (Auto) 0.3, Absolute Neuts (auto) 7.9 H, Absolute Lymphs (auto) 0.92, Nucleated RBC % 0.3, Differential Comment SCANNED, Diff Path Review May foll, Hypochromasia 1+, Anisocytosis 2+, Microcytosis 1+, Macrocytosis 1+ 08/27/21 12:00: PT 16.0 H, INR 1.3, APTT 28.7 08/27/21 12:00: Sodium 141, Potassium 4.4, Chloride 108 H, Carbon Dioxide 26.0, Anion Gap 7, BUN 43 H, Creatinine 0.92, Estim Creat Clear Calc 37.93, Est GFR (MDRD) Af Amer 75, Est GFR (MDRD) Non-Af 62, BUN/Creatinine Ratio 46.5 H, Glucose 132 H, Calcium 8.3 L, Total Bilirubin 0.70, AST 19, ALT 15, Alkaline Phosphatase 44 L, Total Protein 6.0 L, Albumin 3.3, Globulin 2.7, Albumin/Globulin Ratio 1.2 08/27/21 12:00: Blood Type Cancelled, Antibody Screen Cancelled 08/27/21 12:45: Blood Type A POSITIVE, Antibody Screen NEGATIVE 08/27/21 12:45: Crossmatch See Detail 08/27/21 12:45: Crossmatch See Detail 08/27/21 18:35: Urine Color Yellow, Urine Clarity Clear, Urine pH 7.0, Ur Specific [place] 1.005, Urine Protein Negative, Urine Glucose (UA) Normal, Urine Ketones 5 H, Urine Occult Blood 50 H, Urine Nitrite Negative, Urine Bilirubin Negative, Urine Urobilinogen Normal, Ur Leukocyte Esterase 25 H, Urine RBC 0 SEEN, Urine WBC 0-5 SEEN, Ur Squamous Epith Cells 0-5 SEEN, Urine Bacteria 0 SEEN, Urine Mucus 0 SEEN 08/27/21 20:23: POC Glucose 95 08/27/21 23:00: Hgb 6.7 L, Hct 21.7 L 08/28/21 04:50: WBC 9.2, RBC 2.62 L, Hgb 7.6 L, Hct 24.5 L, MCV 93.5 D, MCH 29.0, MCHC 31.0 L D, RDW Std Deviation 56.7 H, RDW Coeff of [place]asquez 17.6 H, Plt Count 179, MPV 10.0, Immature Gran % (Auto) 0.500, Neut % (Auto) 76.0 H, Lymph % (Auto) 13.5 L, [place] % (Auto) 6.7, Eos % (Auto) 2.9, Baso % (Auto) 0.4, Absolute Neuts (auto) 7.0, Absolute Lymphs (auto) 1.24, Nucleated RBC % 0.2 08/28/21 04:50: Sodium 142, Potassium 4.2, Chloride 111 H, Carbon Dioxide 27.0, Anion Gap 4 L, BUN 29 H, Creatinine 0.86, Estim Creat Clear Calc 40.58, Est GFR (MDRD) Af Amer 81, Est GFR (MDRD) Non-Af 67, BUN/Creatinine Ratio 33.6 H, Glucose 96, Calcium 7.8 L, Total Bilirubin 2.40 H, AST 18, ALT 15, Alkaline Phosphatase 35 L, Total Protein 5.1 L, Albumin 2.8 L, Globulin 2.3, Albumin/Globulin Ratio 1.2 08/28/21 04:50: Hemoglobin A1c 4.9 08/28/21 06:32: POC Glucose 104 Micro: Microbiology 08/27/21 15:15 Nasal Secretion SARS-CoV-2 Antigen (Rapid) - Final Charges/Coding Visit Charges Inpatient E&M: 04451 Subs Hosp L3
[2021-08-28] MEDS: Metoprolol Tartrate 100 MG Tablet PO ×2 (08:00→22:26)
[2021-08-28] MEDS: Loratadine 10 MG Tablet PO (08:00)
--- NOTE | 2021-08-28 09:47 | PN.HOSP_ITS ---
Documented by User: Yolanda Patel NP, [employer] REPA[employer]ER-C 08/28/21 10:00 Subjective Subjective Patient seen and examined. Denies lightheadedness, shortness of breath. States she had dark bowel movement early this morning. Awaiting bed at [facility]. She denies nausea, vomiting. Denies other symptoms or complaints. Objective Data Objective Data Vital Signs: Vital Signs Temp Pulse Resp BP Pulse Ox 97.4 F L 75 16 131/41 H 97 08/28/21 09:30 08/28/21 09:30 08/28/21 09:30 08/28/21 09:30 08/28/21 09:30 Oxygen Delivery Method Room Air Weight: 148 lb 5.938 oz Body Mass Index (BMI) 26.4 Intake & Output: Intake and Output for Last 24 Hours 08/26/21 08/27/21 08/28/21 23:59 23:59 23:59 Intake Total 645 / 645 400 / 400 Balance 645 / 645 400 / 400 Lab / Micro Data Result Diagrams: 08/28/21 10:43 08/28/21 04:50 Labs: Laboratory Results - last 24 hr 08/27/21 12:00: WBC 9.7, RBC 2.09 L, Hgb 5.9 L*, Hct 20.6 L, MCV 98.6, MCH 28.2, MCHC 28.6 L, RDW Std Deviation 68.0 H, RDW Coeff of Velasquez 18.9 H, Plt Count 251, MPV 10.3, Immature Gran % (Auto) 0.600, Neut % (Auto) 81.9 H, Lymph % (Auto) 9.5 L, [place] % (Auto) 6.8, Eos % (Auto) 0.9, Baso % (Auto) 0.3, Absolute Neuts (auto) 7.9 H, Absolute Lymphs (auto) 0.92, Nucleated RBC % 0.3, Differential Comment SCANNED, Diff Path Review May foll, Hypochromasia 1+, Anisocytosis 2+, Microcytosis 1+, Macrocytosis 1+ 08/27/21 12:00: PT 16.0 H, INR 1.3, APTT 28.7 08/27/21 12:00: Sodium 141, Potassium 4.4, Chloride 108 H, Carbon Dioxide 26.0, Anion Gap 7, BUN 43 H, Creatinine 0.92, Estim Creat Clear Calc 37.93, Est GFR (MDRD) Af Amer 75, Est GFR (MDRD) Non-Af 62, BUN/Creatinine Ratio 46.5 H, Glucose 132 H, Calcium 8.3 L, Total Bilirubin 0.70, AST 19, ALT 15, Alkaline Phosphatase 44 L, Total Protein 6.0 L, Albumin 3.3, Globulin 2.7, Albumin/Globulin Ratio 1.2 08/27/21 12:00: Blood Type Cancelled, Antibody Screen Cancelled 08/27/21 12:45: Blood Type A POSITIVE, Antibody Screen NEGATIVE 08/27/21 12:45: Crossmatch See Detail 08/27/21 12:45: Crossmatch See Detail 08/27/21 18:35: Urine Color Yellow, Urine Clarity Clear, Urine pH 7.0, Ur Specif ic [place] 1.005, Urine Protein Negative, Urine Glucose (UA) Normal, Urine Ketones 5 H, Urine Occult Blood 50 H, Urine Nitrite Negative, Urine Bilirubin N egative, Urine Urobilinogen Normal, Ur Leukocyte Esterase 25 H, Urine RBC 0 S EEN, Urine WBC 0-5 SEEN, Ur Squamous Epith Cells 0-5 SEEN, Urine Bacteria 0 SEEN, Urine Mucus 0 SEEN 08/27/21 20:23: POC Glucose 95 08/27/21 23:00: Hgb 6.7 L, Hct 21.7 L 08/28/21 04:50: WBC 9.2, RBC 2.62 L, Hgb 7.6 L, Hct 24.5 L, MCV 93.5 D, MCH 29.0, MCHC 31.0 L D, RDW Std Deviation 56.7 H, RDW Coeff of Velasquez 17.6 H, Plt C ount 179, MPV 10.0, Immature Gran % (Auto) 0.500, Neut % (Auto) 76.0 H, Lymph % (Auto) 13.5 L, [place] % (Auto) 6.7, Eos % (Auto) 2.9, Baso % (Auto) 0.4, Absolute Neuts (auto) 7.0, Absolute Lymphs (auto) 1.24, Nucleated RBC % 0.2 08/28/21 04:50: Sodium 142, Potassium 4.2, Chloride 111 H, Carbon Dioxide 27.0, Anion Gap 4 L, BUN 29 H, Creatinine 0.86, Estim Creat Clear Calc 40.58, Est GFR (MDRD) Af Amer 81, Est GFR (MDRD) Non-Af 67, BUN/Creatinine Ratio 33.6 H, Glucose 96, Calcium 7.8 L, Total Bilirubin 2.40 H, AST 18, ALT 15, Alkaline Phosphatase 35 L, Total Protein 5.1 L, Albumin 2.8 L, Globulin 2.3, Albumin/Globulin Ratio 1.2 08/28/21 04:50: Hemoglobin A1c 4.9 08/28/21 06:32: POC Glucose 104 Micro: Microbiology 08/27/21 15:15 Nasal Secretion SARS-CoV-2 Antigen (Rapid) - Final Physical Exam Const alert, oriented x3 and no apparent distress Constitutional Narrative: Fatigued appearing Orientation / Consciousness: awake, oriented to person, oriented to place and oriented to time HEENT normocephalic and moist oral mucous membranes Eyes PERRL, EOMs intact bilaterally and conjunctivae normal Neck no lymphadenopathy Resp normal respiratory effort and clear to auscultation bilaterally Cardio regular rate and regular rhythm Cardio Narrative: + Murmur Peripheral Pulses: pulses 2+ throughout GI normal to inspection, nondistended, normoactive bowel sounds, non-tender and non-distended Extremity normal to inspection Skin no rashes or lesions noted Lesions: no lesions Rashes: no rashes Trauma: no lacerations or abrasions Neuro CN's II-XII intact bilaterally, no focal motor deficits, no sensory deficits noted and deep tendon reflexes 2+ bilaterally Psych mental status grossly normal and affect normal Assessment & Plan Assessment/Plan (1) Acute blood loss anemia: PLAN: 1. Acute blood loss anemia secondary to GI bleed on chronic normocytic anemia/iron deficiency anemia-GI following. Recurrent small bowel GI bleed. Status post 2 units PRBC. Trend H&H. Awaiting transfer to [facility] for further intervention. 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 High risk for recurrent GI bleeding. Continue IV PPI. 2. CAD with history of CABG-antiplatelet regimen on hold. Continue metoprolol, ezetimibe. 3. Hypertension-stable, continue metoprolol, Lasix. 4. Hyperlipidemia-on ezetimibe. 5. Bilateral carotid stenosis-status post bilateral CEA. Antiplatelet regimen on hold. 6. Type 2 diabetes mellitus-not on regimen. Accu-Cheks with sliding scale insulin. 7. Valvular heart disease with history of aortic valve bioprosthetic valve replacement 8. History of TIA-antiplatelet regimen on hold. Continue Zetia. 9. Paroxysmal atrial fibrillation-continue metoprolol. Anticoagulation contraindicated. 10. Former tobacco use-encouraged cessation. DVT prophylaxis-SCDs This patient was seen by JACLYN Escamilla under the supervision of Dr. Andrea. Time spent examining patient, reviewing data and subsequent management of care: 14 minutes Documented by User: Dr. Figueroa Andrea MD 08/28/21 11:52 Objective Data Lab / Micro Data Result Diagrams: 08/28/21 10:43 08/28/21 04:50 Charges/Coding Addendum Addendum: Dr. Andrea: I personally reviewed the chart and examined the patient, and agree with the above findings. 81-year-old female presents to the hospital with black tarry stools and bright red blood as well as abdominal cramping. She has had previous history of AVMs. She was transfused and we will continue to monitor her hemoglobin, on admission she was less than 6 and currently is at 8. Based on where her previous lesions were GI was consulted and felt that she would be better served at a tertiary center that has the equipment available to be able to evaluate her lesions endoscopically. Discussed with her the possibility for discharge today versus sometime in the future, she is okay with going to the [facility]. Appreciate GIs assistance. Clinical time spent in all aspects of patient care: 20 minutes Visit Charges Inpatient E&M: 41652 Subs Hosp L2
--- NOTE | 2021-08-28 10:30 | CASEMGMT ---
[facility] assessment: Face to Face with patient for initial transition planning/care coordination assessment. [facility] introduced self and role at [facility], pt voices understanding and consents to assessment. Pt is sitting in bed in no distress on room air. Pt is A/Ox4 and answers all questions appropriately. Care providers, pharmacy, and demographics verified. Presentation: Pt c/o rectal bleeding-recent upper and lower scope Admitting dx: GI bleed, ABLA PCP: James Specialists: Friend, GI Preferred [facility]acy: [facility] Insurance: AeR Prescription Benefit: AeR Living Will/HPOA: Pt states does have LW/HPOA and is aware that they are not on file at [facility]. Pt states her son, Kolby Swann, is HPOA. LNOK: Kolby Swann, son/HPOA; Yvonne Robbins, niece Living Arrangements: Pt lives alone 1 story home with 2 steps in and states no concerns at home. Pt is independent with ADL's. Transportation: Pt drives self and states no transportation concerns. DME/HHC: Pt has the following DME: grab bars, shower hair, tub bench, w/c, and walker. Pt states no further need for DME. Pt states no hx of HHC or SNF in the past. Pt states no concerns with going home at time of discharge. Pt is retired. Pt states does not smoke cigarettes or drink ETOH. Pt voices no further concerns/needs. CM to follow for any further discharge planning/needs. Advised pt to ask for CM if any further questions/concerns/needs arise, voices understanding. Pt Goal: Home Plan[place] [facility]
[2021-08-28 11:04] LABS: Hematocrit 26.2 % (37-47)
[2021-08-28 12:16] LABS: Bedside Glucose 101 mg/dL (74-106)
[2021-08-28] MEDS: Ensure Clear 120 ML Liquid PO (12:16)
[2021-08-28 15:59] LABS: Hematocrit 26.6 % (37-47); Hemoglobin 8.1 g/dL (12.0-15.0)
[2021-08-28 16:50] LABS: Bedside Glucose 91 mg/dL (74-106)
[2021-08-28 22:15] LABS: Hematocrit 25.3 % (37-47); Hemoglobin 7.8 g/dL (12.0-15.0)
[2021-08-28] MEDS: Ezetimibe 10 MG Tablet PO (22:26)
[2021-08-28 23:01] LABS: Bedside Glucose 123 mg/dL (74-106)
[2021-08-29] VITALS (10 sets, daily range): BP systolic 104–158; BP diastolic 55–83; PULSE 64–79; RESP 16–18; TEMP 36.5–36.8; O2SAT 93–97
[2021-08-29 06:05] LABS: Absolute Lymphocyte Count 1.01 X10^3/uL (0.83-4.51); Absolute Neutrophil Count 4.9 X10^3/uL (2.0-7.7); Basophil# 0.06 X10^3/uL; Basophil% 0.8 % (0-1); Eosinophil# 0.48 X10^3/uL; Eosinophils% 6.8 % (0-5); Hematocrit 25.5 % (37-47); Hemoglobin 7.8 g/dL (12.0-15.0); Lymphocyte # 1.01 X10^3/ul (0.83-4.51); Lymphocyte % 14.3 % (19-41); Mean Corp Hgb Conc 30.6 g/dL (32-36); Mean Corpuscular Volume 94.8 fL (81-99); Mean Platelet Vol. 9.8 fl (6.2-12.0); Monocyte% 8.5 % (0-10); NRBC Flagged by Analyzer 0 % (0-5); Neutrophil # 4.88 X10^3/uL (2.7-7.7); Platelet Count 159 K/mm3 (150-450); RBC Distribution Width CV 18.6 % (11.6-14.6); RBC Distribution Width SD 59.9 fl (35.1-43.9); Red Blood Count 2.69 M/mm3 (4.2-5.4); White Blood Count 7.1 K/mm3 (4.4-11.0)
[2021-08-29 06:36] LABS: Bedside Glucose 93 mg/dL (74-106)
[2021-08-29 06:53] LABS: Anion Gap 3 (5-15); BUN 16 mg/dL (7-18); Calcium,Total 7.9 mg/dL (8.5-10.1); Chloride 112 mmol/L (98-107); Creatinine, Serum 0.89 mg/dL (0.55-1.02); EST Glomerular Filtration Rate 65 mL/min (>60); Est Glom Filt Rate - Afr Amer 79 mL/min (>60); Estimated Creatinine Clearance 39.21 ml/min; Glucose 100 mg/dL (74-106); Sodium Level 143 mmol/L (136-145)
--- NOTE | 2021-08-29 10:09 | PN.HOSP_ITS ---
Documented by User: Yolanda Patel NP, RENTAL SALES REPRESENTATIVE-C 08/29/21 10:11 Subjective Subjective Patient seen and examined. Denies lightheadedness, shortness of breath, chest pain. Denies further bowel movement. Denies nausea, vomiting. Awaiting bed at [facility]. Objective Data Objective Data Vital Signs: Vital Signs Temp Pulse Resp BP Pulse Ox 98.1 F 71 18 116/55 L 96 08/29/21 04:30 08/29/21 07:02 08/29/21 04:30 08/29/21 04:30 08/29/21 04:30 Oxygen Delivery Method Room Air Weight: 145 lb 11.609 oz Body Mass Index (BMI) 26.4 Intake & Output: Intake and Output for Last 24 Hours 08/27/21 08/28/21 08/29/21 23:59 23:59 23:59 Intake Total 645 / 645 740 / 740 0 / 0 Output Total 0 / 0 Balance 645 / 645 740 / 740 0 / 0 Medical Nutrition Assessment Dietitian: Malnutrition Criteria Met Start: 08/28/21 13:35 Freq: Status: Active Protocol: Document 08/28/21 13:35 AG (Rec: 08/28/21 13:35 [id number]) Nutrition Malnutrition Evidence of Malnutrition Exists Yes Malnutrition (moderate): Chronic Evidenced By Suboptimal Energy Intake ( Moderate),Physical Changes ( Mild) Clinical Problem Chronic Disease or Condition Related Malnutrition Etiology moderate, chronic malnutrition r/t GI dysfunction, inadequate energy intake Signs/Symptoms as evidenced by mild muscle wasting/fat loss evident in clavicles, acromion, orbital, and temporal region per physical exam; estimated PO intake meeting <75% of estimated energy needs >3 months Status Active Problem Recommendation Dietitian Recommendations/Changes recommend advance diet as tolerated to transitional as medically appropriate; will provide ensure clear w/ medpass while on clear liquid diet Lab / Micro Data Result Diagrams: 08/29/21 05:48 08/29/21 05:48 Labs: Laboratory Results - last 24 hr 08/28/21 10:43: Hgb 8.0 L, Hct 26.2 L 08/28/21 12:08: POC Glucose 101 08/28/21 15:51: Hgb 8.1 L, Hct 26.6 L 08/28/21 16:41: POC Glucose 91 08/28/21 21:49: Hgb 7.8 L, Hct 25.3 L 08/28/21 22:23: POC Glucose 123 H 08/29/21 05:48: WBC 7.1, RBC 2.69 L, Hgb 7.8 L, Hct 25.5 L, MCV 94.8, MCH 29.0, MCHC 30.6 L, RDW Std Deviation 59.9 H, RDW Coeff of Velasquez 18.6 H, Plt Count 159, MPV 9.8, Immature Gran % (Auto) 0.600, Neut % (Auto) 69.0, Lymph % (Auto) 14.3 L , [place] % (Auto) 8.5, Eos % (Auto) 6.8 H, Baso % (Auto) 0.8, Absolute Neuts (auto) 4.9, Absolute Lymphs (auto) 1.01, Nucleated RBC % 0 08/29/21 05:48: Sodium 143, Potassium 4.0, Chloride 112 H, Carbon Dioxide 28.0, Anion Gap 3 L, BUN 16, Creatinine 0.89, Estim Creat Clear Calc 39.21, Est GFR (MDRD) Af Amer 79, Est GFR (MDRD) Non-Af 65, BUN/Creatinine Ratio 18.0, Glucose 100, Calcium 7.9 L 08/29/21 06:26: POC Glucose 93 Micro: Microbiology 08/27/21 15:15 Nasal Secretion SARS-CoV-2 Antigen (Rapid) - Final Physical Exam Const alert, oriented x3 and no apparent distress Orientation / Consciousness: awake, oriented to person, oriented to place and oriented to time HEENT normocephalic and moist oral mucous membranes Eyes PERRL, EOMs intact bilaterally and conjunctivae normal Neck no lymphadenopathy Resp normal respiratory effort and clear to auscultation bilaterally Cardio regular rate, regular rhythm and no murmurs Peripheral Pulses: pulses 2+ throughout GI normal to inspection, nondistended, normoactive bowel sounds, non-tender and non-distended Extremity normal to inspection Skin no rashes or lesions noted Lesions: no lesions Rashes: no rashes Trauma: no lacerations or abrasions Neuro CN's II-XII intact bilaterally, no focal motor deficits, no sensory deficits noted and deep tendon reflexes 2+ bilaterally Psych mental status grossly normal and affect normal Assessment & Plan Assessment/Plan (1) Anemia: PLAN: 1. Acute blood loss anemia secondary to GI bleed on chronic normocytic anemia/iron deficiency anemia-GI following. Recurrent small bowel GI bleed. Status post 2 units PRBC. Awaiting transfer to [facility] for further intervention. 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 High risk for recurrent GI bleeding. Continue IV PPI. Trend CBC. 2. CAD with history of CABG-antiplatelet regimen on hold. Continue metoprolol, ezetimibe. 3. Hypertension-stable, continue metoprolol, Lasix. 4. Hyperlipidemia-on ezetimibe. 5. Bilateral carotid stenosis-status post bilateral CEA. Antiplatelet regimen on hold. 6. Type 2 diabetes mellitus-not on regimen. Accu-Cheks with sliding scale insulin. 7. Valvular heart disease with history of aortic valve bioprosthetic valve replacement 8. History of TIA-antiplatelet regimen on hold. Continue Zetia. 9. Paroxysmal atrial fibrillation-continue metoprolol. Anticoagulation contraindicated. 10. Former tobacco use-encouraged cessation. DVT prophylaxis-SCDs This patient was seen by JACLYN Escamilla under the supervision of Dr. Andrea. Time spent examining patient, reviewing data and subsequent management of care: 12 minutes Documented by User: Dr. Figueroa Andrea MD 08/29/21 15:49 Objective Data Lab / Micro Data Result Diagrams: 08/29/21 05:48 08/29/21 05:48 Charges/Coding Addendum Addendum: Dr. Andrea: I personally reviewed the chart and examined the patient, and agree with the above findings. 81-year-old female presents to the hospital with black tarry stools and bright red blood as well as abdominal cramping. She has had previous history of AVMs. She was transfused and we will continue to monitor her hemoglobin, on admission she was less than 6 and currently is at 8. Based on where her previous lesions were GI was consulted and felt that she would be better served at a tertiary center that has the equipment available to be able to evaluate her lesions endoscopically. Discussed with her the possibility for discharge today versus sometime in the future, she is okay with going to the [facility]. Appreciate GIs assistance. Clinical time spent in all aspects of patient care: 20 minutes 08/29/2021: Doing well, no issues overnight. Hemoglobin today is 7.8 we will continue to monitor and transfuse as necessary. Still awaiting transfer to [facility] for intervention. Clinical time spent in all aspects of patient care: 15 minutes Visit Charges Inpatient E&M: 76403 Subs Hosp L2
[2021-08-29] MEDS: Loratadine 10 MG Tablet PO (10:10)
[2021-08-29] MEDS: Metoprolol Tartrate 100 MG Tablet PO ×2 (10:10→20:46)
[2021-08-29 12:00] LABS: Bedside Glucose 102 mg/dL (74-106)
[2021-08-29 16:16] LABS: Bedside Glucose 74 mg/dL (74-106)
--- NOTE | 2021-08-29 17:16 | PCM.DC.SUM ---
Documented by User: Yolanda Patel NP, SECURITY OPERATIONS CENTER ANALYST-C 08/29/21 17:19 Providers Date of Admission: 08/27/21 Date of Discharge: 08/29/21 Primary Care Physician: Dr. Daisha Ramirez, Consultations 08/27/21 20:05 Consult: Gastroenterology Routine Consulting Provider: [facility] Reason for Consult: GI bleed, acute blood loss anemia EMERGENT Consult: No MD Notified: Yes Date Notified: 08/27/21 Time Notified: 19:19 Method of Notification: called per ED. Reason For Visit: GI BLEED, ACUTE BLOOD LOSS ANEMIA Diagnosis Discharge Diagnosis (1) Anemia: Status: Acute Code(s): D64.9 - Anemia, unspecified Medications at Discharge Home Medications ezetimibe 10 mg PO QHS 09/01/13 pantoprazole 40 mg PO BID 09/01/13 metoprolol tartrate 100 mg tablet 100 mg PO BID #180 tab 10/05/18 nitroglycerin 0.4 mg sublingual tablet 0.4 mg SUBLINGUAL Q5M PRN #25 tab 10/05/18 acetaminophen 1,000 mg PO DAILY PRN PRN 04/12/19 niacin (inositol niacinate) 1,000 mg PO BID 04/12/19 furosemide [Lasix] 10 mg PO DAILY PRN 12/15/20 clopidogrel 75 mg PO DAILY 04/18/21 ascorbic acid (vitamin C) 500 mg capsule 1,000 mg PO DAILY cap 07/15/21 cholecalciferol (vitamin D3) 25 mcg (1,000 unit) capsule 125 mcg PO DAILY cap 07/15/21 levocetirizine 5 mg tablet 5 mg PO DAILY 07/15/21 vitamin S54-ebrkw acid 5,000 tab PO DAILY 07/27/21 Hospital Course Operations None Procedures None Summary of Care Provided Hospital Course: Patient is an 81 year old female admitted 08/27/21 due to GI bleed. 1. Acute blood loss anemia secondary to GI bleed on chronic normocytic anemia/iron deficiency anemia-GI following. Recurrent small bowel GI bleed. Status post 2 units PRBC. 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 High risk for recurrent GI bleeding. Continue IV PPI. Trend CBC. Transfer to [facility] for further intervention. 2. CAD with history of CABG-antiplatelet regimen on hold. Continue metoprolol, ezetimibe. 3. Hypertension-stable, continue metoprolol, Lasix. 4. Hyperlipidemia-on ezetimibe. 5. Bilateral carotid stenosis-status post bilateral CEA. Antiplatelet regimen on hold. 6. Type 2 diabetes mellitus-not on regimen. Accu-Cheks with sliding scale insulin. 7. Valvular heart disease with history of aortic valve bioprosthetic valve replacement 8. History of TIA-antiplatelet regimen on hold. Continue Zetia. 9. Paroxysmal atrial fibrillation-continue metoprolol. Anticoagulation contraindicated. 10. Former tobacco use-encouraged cessation. Physical Exam Const alert, oriented x3 and no apparent distress Orientation / Consciousness: awake, oriented to person, oriented to place and oriented to time HEENT normocephalic and moist oral mucous membranes Eyes PERRL, EOMs intact bilaterally and conjunctivae normal Neck no lymphadenopathy Resp normal respiratory effort and clear to auscultation bilaterally Cardio regular rate, regular rhythm and no murmurs Peripheral Pulses: pulses 2+ throughout GI normal to inspection, nondistended, normoactive bowel sounds, non-tender and non-distended Extremity normal to inspection Skin no rashes or lesions noted Lesions: no lesions Rashes: no rashes Trauma: no lacerations or abrasions Neuro CN's II-XII intact bilaterally, no focal motor deficits, no sensory deficits noted and deep tendon reflexes 2+ bilaterally Psych mental status grossly normal and affect normal patient seen and examined prior to discharge. Physical assessment as noted above. Transferred to [facility] as noted above. This patient was seen by JACLYN Escamilla under the supervision of Dr. Andrea. Time spent examining patient, reviewing data and subsequent management of care: 20 minutes Medical Records Data Medical Nutrition Assessment Dietitian: Malnutrition Criteria Met Start: 08/28/21 13:35 Freq: Status: Active Protocol: Document 08/28/21 13:35 AG (Rec: 08/28/21 13:35 AG [id number]) Nutrition Malnutrition Evidence of Malnutrition Exists Yes Malnutrition (moderate): Chronic Evidenced By Suboptimal Energy Intake ( Moderate),Physical Changes ( Mild) Clinical Problem Chronic Disease or Condition Related Malnutrition Etiology moderate, chronic malnutrition r/t GI dysfunction, inadequate energy intake Signs/Symptoms as evidenced by mild muscle wasting/fat loss evident in clavicles, acromion, orbital, and temporal region per physical exam; estimated PO intake meeting <75% of estimated energy needs >3 months Status Active Problem Recommendation Dietitian Recommendations/Changes recommend advance diet as tolerated to transitional as medically appropriate; will provide ensure clear w/ medpass while on clear liquid diet Weight / BMI Weight Weight: 145 lb 11.609 oz Body Mass Index (BMI) 26.4 ABG / Lab / Microbiology Data Result Diagrams: 08/29/21 05:48 08/29/21 05:48 Laboratory: Laboratory Results - last 24 hr 08/28/21 21:49: Hgb 7.8 L, Hct 25.3 L 08/28/21 22:23: POC Glucose 123 H 08/29/21 05:48: WBC 7.1, RBC 2.69 L, Hgb 7.8 L, Hct 25.5 L, MCV 94.8, MCH 29.0, MCHC 30.6 L, RDW Std Deviation 59.9 H, RDW Coeff of Velasquez 18.6 H, Plt Count 159, MPV 9.8, Immature Gran % (Auto) 0.600, Neut % (Auto) 69.0, Lymph % (Auto) 14.3 L, [place] % (Auto) 8.5, Eos % (Auto) 6.8 H, Baso % (Auto) 0.8, Absolute Neuts (auto) 4.9, Absolute Lymphs (auto) 1.01, Nucleated RBC % 0 08/29/21 05:48: Sodium 143, Potassium 4.0, Chloride 112 H, Carbon Dioxide 28.0, Anion Gap 3 L, BUN 16, Creatinine 0.89, Estim Creat Clear Calc 39.21, Est GFR (MDRD) Af Amer 79, Est GFR (MDRD) Non-Af 65, BUN/Creatinine Ratio 18.0, Glucose 100, Calcium 7.9 L 08/29/21 06:26: POC Glucose 93 08/29/21 11:22: POC Glucose 102 08/29/21 16:08: POC Glucose 74 Microbiology: Microbiology 08/27/21 15:15 Nasal Secretion SARS-CoV-2 Antigen (Rapid) - Final Meaningful Use Info Meaningful Use Diagnoses (Choose all that apply): None applicable Discharge Plan Admission Admit Date/Time: 08/27/21 19:17 Attending Provider: Figueroa Andrea Primary Care Provider: Daisha Ramirez Consulting Providers: White,Ria L Discharge Orders/Prescriptions Prescriptions: No Action nitroglycerin 0.4 mg tablet, sublingual 0.4 mg SUBLINGUAL Q5M PRN (Reason: Chest Pain) Qty: 25 RF: 1 metoprolol tartrate 100 mg tablet 100 mg PO BID Qty: 180 RF: 3 levocetirizine [Xyzal] 5 mg tablet 5 mg PO DAILY RF: 0 ascorbic acid (vitamin C) 500 mg capsule 1,000 mg PO DAILY RF: 0 cholecalciferol (vitamin D3) 25 mcg (1,000 unit) capsule 125 mcg PO DAILY RF: 0 pantoprazole 40 MG tablet 40 mg PO BID RF: 0 ezetimibe 10 MG tablet 10 mg PO QHS RF: 0 acetaminophen 500 MG tablet 1,000 mg PO DAILY PRN PRN (Reason: Pain Or Fever) RF: 0 niacin (inositol niacinate) 500 MG capsule 1,000 mg PO BID RF: 0 furosemide [Lasix] 20 mg Tablet 10 mg PO DAILY PRN (Reason: Edema) RF: 0 vitamin M11-ujjxi acid 2,500-400 mcg Tablet,Disintegrating 5,000 tab PO DAILY RF: 0 clopidogrel 75 mg tablet 75 mg PO DAILY RF: 0 Hold Instructions: Hold until appointment with Dr. Montague. Referrals / Follow Up: Daisha Ramirez DO [Primary Care Provider] - Disposition Disposition (needs filled in before D/C Order can be placed): [facility] Documented by User: Dr. Figueroa Andrea MD 08/29/21 17:35 Providers Date of Admission: 08/27/21 Reason For Visit: GI BLEED, ACUTE BLOOD LOSS ANEMIA Medications at Discharge Home Medications ezetimibe 10 mg PO QHS 09/01/13 pantoprazole 40 mg PO BID 09/01/13 metoprolol tartrate 100 mg tablet 100 mg PO BID #180 tab 10/05/18 nitroglycerin 0.4 mg sublingual tablet 0.4 mg SUBLINGUAL Q5M PRN #25 tab 10/05/18 acetaminophen 1,000 mg PO DAILY PRN PRN 04/12/19 niacin (inositol niacinate) 1,000 mg PO BID 04/12/19 furosemide [Lasix] 10 mg PO DAILY PRN 12/15/20 clopidogrel 75 mg PO DAILY 04/18/21 ascorbic acid (vitamin C) 500 mg capsule 1,000 mg PO DAILY cap 07/15/21 cholecalciferol (vitamin D3) 25 mcg (1,000 unit) capsule 125 mcg PO DAILY cap 07/15/21 levocetirizine 5 mg tablet 5 mg PO DAILY 07/15/21 vitamin F05-rcyzx acid 5,000 tab PO DAILY 07/27/21 ABG / Lab / Microbiology Data Result Diagrams: 08/29/21 05:48 08/29/21 05:48 Discharge Plan Admission Admit Date/Time: 08/27/21 19:17 Attending Provider: Figueroa Andrea Primary Care Provider: Daisha Ramirez Consulting Providers: Ria Leong Discharge Orders/Prescriptions Prescriptions: No Action nitroglycerin 0.4 mg tablet, sublingual 0.4 mg SUBLINGUAL Q5M PRN (Reason: Chest Pain) Qty: 25 RF: 1 metoprolol tartrate 100 mg tablet 100 mg PO BID Qty: 180 RF: 3 levocetirizine [Xyzal] 5 mg tablet 5 mg PO DAILY RF: 0 ascorbic acid (vitamin C) 500 mg capsule 1,000 mg PO DAILY RF: 0 cholecalciferol (vitamin D3) 25 mcg (1,000 unit) capsule 125 mcg PO DAILY RF: 0 pantoprazole 40 MG tablet 40 mg PO BID RF: 0 ezetimibe 10 MG tablet 10 mg PO QHS RF: 0 acetaminophen 500 MG tablet 1,000 mg PO DAILY PRN PRN (Reason: Pain Or Fever) RF: 0 niacin (inositol niacinate) 500 MG capsule 1,000 mg PO BID RF: 0 furosemide [Lasix] 20 mg Tablet 10 mg PO DAILY PRN (Reason: Edema) RF: 0 vitamin C85-uejtg acid 2,500-400 mcg Tablet,Disintegrating 5,000 tab PO DAILY RF: 0 clopidogrel 75 mg tablet 75 mg PO DAILY RF: 0 Hold Instructions: Hold until appointment with Dr. Montague. Referrals / Follow Up: Daisha Ramirez DO [Primary Care Provider] - Disposition Disposition (needs filled in before D/C Order can be placed): Acute Care Hospital Charges/Coding Addendum Addendum: Dr. Andrea: I personally reviewed the chart and examined the patient, and agree with the above findings. 81-year-old female presents to the hospital with black tarry stools and bright red blood as well as abdominal cramping. She has had previous history of AVMs. She was transfused and we will continue to monitor her hemoglobin, on admission she was less than 6 and currently is at 8. Based on where her previous lesions were GI was consulted and felt that she would be better served at a tertiary center that has the equipment available to be able to evaluate her lesions endoscopically. Discussed with her the possibility for discharge today versus sometime in the future, she is okay with going to the [facility]. Appreciate GIs assistance. Clinical time spent in all aspects of patient care: 20 minutes 08/29/2021: Doing well, no issues overnight. Hemoglobin today is 7.8, she did receive a bed at the [facility] and therefore will initiate transfer. I did discuss with her the plan for her to go to the [facility] and she is ready to go today as her daughter lives closer to the [facility] that she does here. Clinical time spent in all aspects of patient care: 23 minutes Visit Charges Inpatient E&M: 59104 Disch Hosp
[2021-08-29] MEDS: Ezetimibe 10 MG Tablet PO (20:47)
--- NOTE | 2021-08-29 21:55 | NURSING ---
Report called to [facility] nurse Valdez for transfer. Reviewed last vital signs, assessment details, and pt's history. All questions answered for transfer.
[2021-08-29 22:05] LABS: Bedside Glucose 84 mg/dL (74-106)
[2021-08-31 09:01] LABS: Pathologist Review Reviewed
== END 2021-08-29 21:55 | disposition short-term general hospital (02) | DRG 812 ==
LOC: ED 18:55 → PCU 19:23
PROVIDERS: Nurse Practitioner Family; Admitting Provider Family Medicine; Emergency Provider Emergency Medicine; PCP Internal Medicine; Visit Provider Family Medicine
DX: D62 Acute posthemorrhagic anemia (principal); E44.0 Moderate protein-calorie malnutrition; E11.9 Type 2 diabetes mellitus without complications; I48.0 Paroxysmal atrial fibrillation; E78.00 Pure hypercholesterolemia, unspecified; D50.9 Iron deficiency anemia, unspecified; E78.5 Hyperlipidemia, unspecified; I10 Essential (primary) hypertension; I25.10 Atherosclerotic heart disease of native coronary artery without angina pectoris; G47.33 Obstructive sleep apnea (adult) (pediatric); I35.0 Nonrheumatic aortic (valve) stenosis; I65.23 Occlusion and stenosis of bilateral carotid arteries; M19.90 Unspecified osteoarthritis, unspecified site; K21.9 Gastro-esophageal reflux disease without esophagitis; I44.7 Left bundle-branch block, unspecified; Z87.891 Personal history of nicotine dependence; Z79.02 Long term (current) use of antithrombotics/antiplatelets; Z66 Do not resuscitate; Z95.2 Presence of prosthetic heart valve; Z95.1 Presence of aortocoronary bypass graft; Z85.3 Personal history of malignant neoplasm of breast; Z68.26 Body mass index [BMI] 26.0-26.9, adult
CPT/HCPCS: 36415; 80048; 80053; 81001; 82962; 83036; 85014; 85018; 85025; 85610; 85730; 86850; 86900; 86901; 86920; 86922; 87811; 93005; 99251; 99284; P9016; G0463; J3490

== ENCOUNTER 2021-09-14 19:36 | Emergency (ER) | payer MEDICARE, SELFPAY ==
[2021-09-14 19:37] VITALS: BP 152/60; PULSE 88; RESP 16; TEMP 36.2; O2SAT 100; BMI 25.7
--- NOTE | 2021-09-14 20:55 | EX.ED.DYSGE1 ---
HPI History of Present Illness Chief Complaint: Other, Pain/Inj Informant: patient Onset/Context/Timing Onset: Today Context: Sudden Onset Timing: Continuous Quality: Bleeding Location: Tongue Worsened by: Nothing Relieved by: Nothing Narrative Narrative: OvernightPatient presents with bleeding from her tongue that began today. Patient saw her primary care physician for this who titrate to the area. Patient states the bleeding stopped after this. Patient states that later tonight her bleeding started up again. Patient states it is still just from the 1 spot on her tongue. Patient denies any other bleeding. Patient denies any difficulty breathing or difficulty swallowing. Patient denies any fevers or chills. [facility] Medical History Acute blood loss anemia Anemia Atherosclerotic heart disease of [place] coronary artery without angina pectoris Atypical chest pain Bilateral carotid artery stenosis Bilateral carotid bruits Biliary colic CAD (coronary artery disease) Carotid stenosis Cholelithiasis Jayson's syndrome Effusion, left knee Essential hypertension Former smoker Gallstones Gastrointestinal bleeding, upper GERD (gastroesophageal reflux disease) History of left heart catheterization (LHC) (~07/14/20) HTN (hypertension) Hypertension Iron deficiency anemia due to chronic blood loss Near syncope Nonrheumatic aortic (valve) stenosis [place] (obstructive sleep apnea) Osteoarthritis Paroxysmal atrial fibrillation PND (post-nasal drip) Psoriasis Pure hypercholesterolemia Sleep disorder Sleep disorder breathing SOB (shortness of breath) on exertion TIA (transient ischemic attack) TIA (transient ischemic attack) Tobacco abuse Type 2 diabetes mellitus UGIB (upper gastrointestinal bleed) Home Medications ezetimibe 10 mg PO QHS 09/01/13 [History Last Taken 08/25/21] pantoprazole 40 mg PO BID 09/01/13 [History Last Taken 08/27/21] metoprolol tartrate 100 mg tablet 100 mg PO BID #180 tab 10/05/18 [Rx Last Taken 08/27/21] nitroglycerin 0.4 mg sublingual tablet 0.4 mg SUBLINGUAL Q5M PRN #25 tab 10/05/18 [Rx Last Taken 04/12/19] acetaminophen 1,000 mg PO DAILY PRN PRN 04/12/19 [History Last Taken 02/19/21] niacin (inositol niacinate) 1,000 mg PO BID 04/12/19 [History Last Taken 08/27/21] furosemide [Lasix] 10 mg PO DAILY PRN 12/15/20 [History Last Taken 08/27/21] clopidogrel 75 mg PO DAILY 04/18/21 [History Last Taken 08/27/21] ascorbic acid (vitamin C) 500 mg capsule 1,000 mg PO DAILY cap 07/15/21 [History Last Taken 08/27/21] cholecalciferol (vitamin D3) 25 mcg (1,000 unit) capsule 125 mcg PO DAILY cap 07/15/21 [History Last Taken 08/27/21] levocetirizine 5 mg tablet 5 mg PO DAILY 07/15/21 [History Last Taken 08/26/21] vitamin G18-gwcpl acid 5,000 tab PO DAILY 07/27/21 [History Last Taken 08/27/21] Allergy/AdvReac Type Severity Reaction Status Date / Time Sulfa (Sulfonamide Allergy Severe HEART Verified 08/27/21 11:30 Antibiotics) RACING Latex, Natural Rubber Allergy Rash, Verified 08/27/21 11:30 psioriasis amoxicillin [From Augmentin] AdvReac Nausea Verified 08/27/21 11:30 atorvastatin [From Lipitor] AdvReac Other Verified 08/27/21 11:30 clavulanic acid AdvReac Nausea Verified 08/27/21 11:30 [From Augmentin] Iodinated Contrast Media AdvReac Other Verified 08/27/21 11:30 [CONTRASTS] niacin AdvReac Other Verified 08/27/21 11:30 [From Niaspan Extended-Release] red dye AdvReac NEEDS Verified 08/27/21 11:30 FOLLOW-UP rosuvastatin [From Crestor] AdvReac Other Verified 08/27/21 11:30 turkey grease AdvReac Rash Uncoded 08/27/21 11:30 Family History Mother Heart disease Diabetes Father Heart disease Cancer Sister Cancer COPD (chronic obstructive pulmonary disease) Surgical History History of aortic valve replacement with bioprosthetic valve (~09/06/13) History of bilateral carotid endarterectomy History of coronary artery bypass surgery (~09/06/13) History of left mastectomy (~1998) History of right mastectomy (~1998) History of tubal ligation Social History household members: none housing: house Smoking Status: Former smoker how long ago did patient quit smokin second hand exposure: No alcohol intake: never substance use type: does not use caffeine: Yes Type: coffee Number of servings: 2 and tea what type of physical activity do you participate in: none franci/sabianist: Muslim seatbelt use: always do you feel safe at home: Yes ROS ROS ED Constitutional Constitutional ED: Denies chills or fever(s) Eyes Eyes: Denies blurry vision or change in vision ENT ENT ED: Denies rhinorrhea or sore throat Cardiovascular Cardiovascular: Denies chest pain or palpitations Respiratory/Chest Respiratory/Chest: Denies cough or dyspnea Gastrointestinal Gastrointestinal: Denies nausea or vomiting Genitourinary Genitourinary ED: Denies dysuria or hematuria Musculoskeletal Musculoskeletal: Denies back pain or neck pain Integumentary Denies abscess or rash Neurologic Neurologic: Denies headache(s) or weakness Allergic/Immunologic Allergic/Immunologic ED: Denies mouth swelling or urticaria EXAM Physical Exam Const Vital Signs: 09/14/21 19:37 Temperature 97.2 F L Temperature Source Temporal Pulse Rate 88 Respiratory Rate 16 Blood Pressure 152/60 H Blood Pressure Mean 90 Pulse Ox 100 Oxygen Delivery Method Room Air Positive well nourished and well developed General Appearance ED: well developed and NAD HEENT HEENT Narrative: There is an area on the right midportion of her tongue that is bleeding. It is approximately 2 mm in diameter. There is no surrounding erythema. There is no tenderness. There is no swelling. Oropharynx is clear. Airway is patent. Neck supple and no JVD Resp normal respiratory effort and clear to auscultation bilaterally Cardio regular rate and regular rhythm Neuro oriented x3, CN's II-XII intact bilaterally and no sensory deficits noted Sensorium / Orientation: alert Motor Exam: strength 5/5 throughout Psych mental status grossly normal MDM MDM MDM Narrative Medical decision making narrative: The area of her tongue was cauterized with a silver nitrate stick. Bleeding was stopped. Patient tolerated the procedure well. Patient was instructed to follow-up with her primary care physician in 5 to 7 days. Patient was instructed to return if worse in any way. Patient also states she has an appointment with Dr. Meek this week. Patient was instructed to keep this appointment as well. Patient understood and was agreeable with the plan. All questions were answered. Discharge Plan Triage Chief Complaint: Other, Pain/Inj ED Provider: David Boyd Dx/Rx/DC Orders Clinical Impression: Open wound of tongue, Essential hypertension, Type 2 diabetes mellitus Instructions: ED Post Op Wound Check, Bleeding Prescriptions: No Action nitroglycerin 0.4 mg tablet, sublingual 0.4 mg SUBLINGUAL Q5M PRN (Reason: Chest Pain) Qty: 25 RF: 1 metoprolol tartrate 100 mg tablet 100 mg PO BID Qty: 180 RF: 3 levocetirizine [Xyzal] 5 mg tablet 5 mg PO DAILY RF: 0 ascorbic acid (vitamin C) 500 mg capsule 1,000 mg PO DAILY RF: 0 cholecalciferol (vitamin D3) 25 mcg (1,000 unit) capsule 125 mcg PO DAILY RF: 0 pantoprazole 40 MG tablet 40 mg PO BID RF: 0 ezetimibe 10 MG tablet 10 mg PO QHS RF: 0 acetaminophen 500 MG tablet 1,000 mg PO DAILY PRN PRN (Reason: Pain Or Fever) RF: 0 niacin (inositol niacinate) 500 MG capsule 1,000 mg PO BID RF: 0 furosemide [Lasix] 20 mg Tablet 10 mg PO DAILY PRN (Reason: Edema) RF: 0 vitamin V28-dxhcg acid 2,500-400 mcg Tablet,Disintegrating 5,000 tab PO DAILY RF: 0 clopidogrel 75 mg tablet 75 mg PO DAILY RF: 0 Hold Instructions: Hold until appointment with Dr. Montague. Primary Care Provider: Daisha Ramirez Referrals: Daisha Ramirez DO [Primary Care Provider] - 3-5 Days Disposition Disposition: Home, Self Care
[2021-09-14] MEDS: Silver Nitrate (BKC) 1 EACH TOPICAL (21:09)
== END 2021-09-14 21:11 | disposition home or self-care (01) ==
PROVIDERS: Emergency Provider Emergency Medicine; PCP Internal Medicine; Visit Provider Emergency Medicine
DX: S01.502A Unspecified open wound of oral cavity, initial encounter (principal); I48.0 Paroxysmal atrial fibrillation; E11.9 Type 2 diabetes mellitus without complications; I10 Essential (primary) hypertension; Z87.891 Personal history of nicotine dependence; I25.10 Atherosclerotic heart disease of native coronary artery without angina pectoris; E78.00 Pure hypercholesterolemia, unspecified; Y33.XXXA Other specified events, undetermined intent, initial encounter; K21.9 Gastro-esophageal reflux disease without esophagitis; G47.33 Obstructive sleep apnea (adult) (pediatric); Z86.73 Personal history of transient ischemic attack (TIA), and cerebral infarction without residual deficits
CPT/HCPCS: 99282

== ENCOUNTER 2021-09-15 11:47 | Emergency (ER) | payer MEDICARE, SELFPAY ==
[2021-09-15 11:48] VITALS: BP 173/47; PULSE 90; RESP 14; TEMP 35.6; O2SAT 99; BMI 25.5
--- NOTE | 2021-09-15 12:08 | EDS_ITS ---
HPI History of Present Illness Chief Complaint: Other, Pain/Inj Narrative Narrative: Patient presents with bleeding from the right side of her tongue that started again yesterday evening. She relates remote history that a year ago she was eating Doritos and had a tongue laceration. She has had to come to the emergency department and have it cauterized. She states that Dr. Toro Meek was going to do surgery on this area because it keeps rebleeding but she ended up having a gallbladder attack and was unable to do so. She denies any chest pain, shortness of breath, or lightheadedness. She does have history of anemia. She states the area had been doing well since April of this year, 5 months ago when she had to have it cauterized with silver nitrate sticks in the emergency department. She denies that she had eaten anything or disturbed the area, but yesterday evening had spontaneous bleeding of the area in question. She states is the same area that she has had problems with for over a year. Of note, she does take Plavix. [facility] Medical History Acute blood loss anemia Anemia Atherosclerotic heart disease of [place] coronary artery without angina pectoris Atypical chest pain Bilateral carotid artery stenosis Bilateral carotid bruits Biliary colic CAD (coronary artery disease) Carotid stenosis Cholelithiasis Jayson's syndrome Effusion, left knee Essential hypertension Former smoker Gallstones Gastrointestinal bleeding, upper GERD (gastroesophageal reflux disease) History of left heart catheterization (LHC) (~07/14/20) HTN (hypertension) Hypertension Iron deficiency anemia due to chronic blood loss Near syncope Nonrheumatic aortic (valve) stenosis [place] (obstructive sleep apnea) Osteoarthritis Paroxysmal atrial fibrillation PND (post-nasal drip) Psoriasis Pure hypercholesterolemia Sleep disorder Sleep disorder breathing SOB (shortness of breath) on exertion TIA (transient ischemic attack) TIA (transient ischemic attack) Tobacco abuse Type 2 diabetes mellitus UGIB (upper gastrointestinal bleed) Home Medications ezetimibe 10 mg PO QHS 09/01/13 [History Last Taken 08/25/21] pantoprazole 40 mg PO BID 09/01/13 [History Last Taken 08/27/21] metoprolol tartrate 100 mg tablet 100 mg PO BID #180 tab 10/05/18 [Rx Last Taken 08/27/21] nitroglycerin 0.4 mg sublingual tablet 0.4 mg SUBLINGUAL Q5M PRN #25 tab 10/05/18 [Rx Last Taken 04/12/19] acetaminophen 1,000 mg PO DAILY PRN PRN 04/12/19 [History Last Taken 02/19/21] niacin (inositol niacinate) 1,000 mg PO BID 04/12/19 [History Last Taken 08/27/21] furosemide [Lasix] 10 mg PO DAILY PRN 12/15/20 [History Last Taken 08/27/21] clopidogrel 75 mg PO DAILY 04/18/21 [History Last Taken 08/27/21] ascorbic acid (vitamin C) 500 mg capsule 1,000 mg PO DAILY cap 07/15/21 [History Last Taken 08/27/21] cholecalciferol (vitamin D3) 25 mcg (1,000 unit) capsule 125 mcg PO DAILY cap 07/15/21 [History Last Taken 08/27/21] levocetirizine 5 mg tablet 5 mg PO DAILY 07/15/21 [History Last Taken 08/26/21] vitamin J78-rnubt acid 5,000 tab PO DAILY 07/27/21 [History Last Taken 08/27/21] Allergy/AdvReac Type Severity Reaction Status Date / Time Sulfa (Sulfonamide Allergy Severe HEART Verified 09/15/21 11:48 Antibiotics) RACING Latex, Natural Rubber Allergy Rash, Verified 09/15/21 11:48 psioriasis amoxicillin [From Augmentin] AdvReac Nausea Verified 09/15/21 11:48 atorvastatin [From Lipitor] AdvReac Other Verified 09/15/21 11:48 clavulanic acid AdvReac Nausea Verified 09/15/21 11:48 [From Augmentin] Iodinated Contrast Media AdvReac Other Verified 09/15/21 11:48 [CONTRASTS] niacin AdvReac Other Verified 09/15/21 11:48 [From Niaspan Extended-Release] red dye AdvReac NEEDS Verified 09/15/21 11:48 FOLLOW-UP rosuvastatin [From Crestor] AdvReac Other Verified 09/15/21 11:48 turkey grease AdvReac Rash Uncoded 09/15/21 11:48 Family History Mother Heart disease Diabetes Father Heart disease Cancer Sister Cancer COPD (chronic obstructive pulmonary disease) Surgical History History of aortic valve replacement with bioprosthetic valve (~09/06/13) History of bilateral carotid endarterectomy History of coronary artery bypass surgery (~09/06/13) History of left mastectomy (~1998) History of right mastectomy (~1998) History of tubal ligation Social History household members: none housing: house Smoking Status: Former smoker how long ago did patient quit smokin second hand exposure: No alcohol intake: never substance use type: does not use caffeine: Yes Type: coffee Number of servings: 2 and tea what type of physical activity do you participate in: none franic/adventist: Protestant seatbelt use: always do you feel safe at home: Yes ROS ROS ED ROS Narrative Constitutional: No fever, no chills. HEENT: No sore throat. No neck pain. No loss of vision. No rhinorrhea. Bleeding from tongue. Cardiovascular: No chest pain. No palpitations. No pedal edema. Respiratory: No cough, no shortness of breath. Abdominal: No abdominal pain. No nausea. No vomiting. Genitourinary: No dysuria. No hematuria. Musculoskeletal: No myalgias. No arthralgias. Neurologic: No headaches. No dizziness. No lightheadedness. Skin: No rash. No change in color. Psychiatric: No depression. No anxiety. EXAM Physical Exam Narrative Exam Narrative: Afebrile. Vital signs noted. HEENT: Normocephalic. Atraumatic. PERRL, EOMI. Neck soft and supple. No point tenderness or step off. Small skin avulsion off right side of tongue surface. Minimal active bleeding. Cardiovascular: Regular rate and rhythm. No murmurs, rubs, or gallops appreciated. Respiratory: No tachypnea. Lungs clear to auscultation bilaterally. Gastrointestinal: Abdomen soft, nontender, with normoactive bowel sounds. No rebound or guarding. Neurological: Awake. Alert. Nonfocal, nonlateralizing. Skin: No rash. Normal color. No pallor. Musculoskeletal: No pedal edema. Full range of motion extremities. Const Vital Signs: 05/24/22 11:48 Temperature 96.1 F L Temperature Source Temporal Pulse Rate 90 Respiratory Rate 14 Blood Pressure 173/47 H Blood Pressure Mean 89 Pulse Ox 99 Oxygen Delivery Method Room Air MDM MDM MDM Narrative Medical decision making narrative: Patient is spinning up a small amount of blood out of her mouth. There is no acute hemorrhage. I will first try Gelfoam to ensure that it stops as I discussed the use of silver nitrate with the patient. I reviewed her prior records and it had been used previously, but there is not a good way to anesthetize her tongue before silver nitrate. Gelfoam was applied. Upon repeat examination, the bleeding has stopped. She states that she has a follow-up appointment with Dr. Meek tomorrow. She was told not to disturb the wound on her tongue as hemostasis has been achieved. I feel she be discharged safely home with follow-up. Return instructions were reviewed. Disposition is discharged home in stable condition. Discharge Plan Triage Chief Complaint: Other, Pain/Inj ED Provider: Maik Edwards Dx/Rx/DC Orders Clinical Impression: Hemorrhage of tongue, Open tongue wound Instructions: ED Laceration, Lip or Mouth Prescriptions: No Action nitroglycerin 0.4 mg tablet, sublingual 0.4 mg SUBLINGUAL Q5M PRN (Reason: Chest Pain) Qty: 25 RF: 1 metoprolol tartrate 100 mg tablet 100 mg PO BID Qty: 180 RF: 3 levocetirizine [Xyzal] 5 mg tablet 5 mg PO DAILY RF: 0 ascorbic acid (vitamin C) 500 mg capsule 1,000 mg PO DAILY RF: 0 cholecalciferol (vitamin D3) 25 mcg (1,000 unit) capsule 125 mcg PO DAILY RF: 0 pantoprazole 40 MG tablet 40 mg PO BID RF: 0 ezetimibe 10 MG tablet 10 mg PO QHS RF: 0 acetaminophen 500 MG tablet 1,000 mg PO DAILY PRN PRN (Reason: Pain Or Fever) RF: 0 niacin (inositol niacinate) 500 MG capsule 1,000 mg PO BID RF: 0 furosemide [Lasix] 20 mg Tablet 10 mg PO DAILY PRN (Reason: Edema) RF: 0 vitamin C06-pulej acid 2,500-400 mcg Tablet,Disintegrating 5,000 tab PO DAILY RF: 0 clopidogrel 75 mg tablet 75 mg PO DAILY RF: 0 Hold Instructions: Hold until appointment with Dr. Montague. Primary Care Provider: Daisha Ramirez Referrals: Daisha Ramirez DO [Primary Care Provider] - Toro Meek MD [STAFF PHYSICIAN] - 1 Day Disposition Disposition: Home, Self Care
[2021-09-15] MEDS: Gelatin Sponge Absorbable 50cm (1) 1 EACH TOPICAL (14:07)
== END 2021-09-15 14:11 | disposition home or self-care (01) ==
PROVIDERS: Emergency Provider Emergency Medicine; PCP Internal Medicine; Visit Provider Emergency Medicine
DX: S01.512A Laceration without foreign body of oral cavity, initial encounter (principal); E11.9 Type 2 diabetes mellitus without complications; I10 Essential (primary) hypertension; Z87.891 Personal history of nicotine dependence; E78.00 Pure hypercholesterolemia, unspecified; I25.10 Atherosclerotic heart disease of native coronary artery without angina pectoris
CPT/HCPCS: 99282

== ENCOUNTER 2021-09-17 11:24 | Observation (INO) | payer MEDICARE, SELFPAY ==
[2021-09-17] VITALS (12 sets, daily range): BP systolic 101–191; BP diastolic 37–72; PULSE 71–84; RESP 11–18; TEMP 36.4–37; O2SAT 93–100; BMI 25.9; BMI 25.4
--- NOTE | 2021-09-17 11:54 | US_ITS ---
STUDY: ABDOMINAL ULTRASOUND - RIGHT UPPER QUADRANT REASON FOR VISIT: Female, 81 years old prolonged pain after stent placement 3 weeks ago TECHNIQUE: Ultrasound evaluation of the right upper quadrant was performed with real-time and static odonnell-scale imaging. TECHNICAL QUALITY: Adequate. COMPARISON: Abdominal ultrasound from 02/20/2021. FINDINGS: Liver: The liver measures 15.0 cm. There is normal echogenicity of the liver. A few scattered punctate echogenic areas throughout the hepatic parenchyma favored to relate to pneumobilia the bile ducts from recent stent placement. There is hepatic color flow. The direction of portal flow is hepatopetal. No parenchymal masses. Gallbladder: Normal distended gallbladder. The gallbladder wall measures 2.2 mm. There is a negative sonographic Smith''s sign. Trace pericholecystic fluid. Multiple gallstones. Common Bile Duct (C.B.D.): The common bile duct measures 10 mm. There is a echogenic linear structure likely relating to the patient''s reported recently placed common bile duct stent which is located within the common bile duct and extends into the right hepatic duct. The distal portions of the stent and common bile duct are not visualized. Pancreas: Visualized portions of the pancreatic head and body are unremarkable. The tail is not visualized due to overlying bowel gas. No duct dilation in the visualized portions. Right Kidney: Normal size of the right kidney. The right kidney measures 9.0 x 3.5 x 3.1 cm. Normal renal cortex. The right cortex measures 1.2 cm. No mass or cyst. There is no right hydronephrosis. US/Gallbladder IMPRESSION: 1. Stent within the dilated common bile duct appears to extend into the right hepatic duct and may be malpositioned/migrated superiorly. The distal portions of the stent in common bile duct not visualized. Correlation with outside imaging if available recommended to assess stability in position. 2. Cholelithiasis and trace nonspecific pericholecystic fluid without definitive findings to suggest acute cholecystitis. 3. Scattered trace pneumobilia likely iatrogenic and expected from recent stent placement. 4. No other acute findings. Electronically Signed: Christopher Almonte, at 13:29 EDT ,
--- NOTE | 2021-09-17 11:54 | EX.ED.DYSGE1 ---
HPI <JACLYN Camacho - Last Filed: 09/17/21 16:17> History of Present Illness Chief Complaint: Abd Pain Narrative Narrative: 81-year-old female with a long history of cardiac issues, has been dealing with pain to her right upper quadrant has been on and off for 2 years. Patient has seen Dr. Montague here as well as surgery here and she just in the second week of August 2021 went up to the [facility] was admitted for 6 days and had a stent placed in her gallbladder. Patient had follow-up visits that went well. Patient states that for the last 2 days she has had worsening pain, this morning when she woke up she had severe pain to her right upper quadrant that radiated straight through to her back. Patient states the pain is unbearable, she also feels nausea and vomiting. She denies any blood in stool or vomit. [facility] <JACLYN Camacho - Last Filed: 09/17/21 16:17> [facility] Medical History Acute blood loss anemia Anemia Atherosclerotic heart disease of [place] coronary artery without angina pectoris Atypical chest pain Bilateral carotid artery stenosis Bilateral carotid bruits Biliary colic CAD (coronary artery disease) Carotid stenosis Cholelithiasis Jayson's syndrome Effusion, left knee Essential hypertension Former smoker Gallstones Gastrointestinal bleeding, upper GERD (gastroesophageal reflux disease) History of left heart catheterization (LHC) (~07/14/20) HTN (hypertension) Hypertension Iron deficiency anemia due to chronic blood loss Near syncope Nonrheumatic aortic (valve) stenosis [place] (obstructive sleep apnea) Osteoarthritis Paroxysmal atrial fibrillation PND (post-nasal drip) Psoriasis Pure hypercholesterolemia Sleep disorder Sleep disorder breathing SOB (shortness of breath) on exertion TIA (transient ischemic attack) TIA (transient ischemic attack) Tobacco abuse Type 2 diabetes mellitus UGIB (upper gastrointestinal bleed) Home Medications ezetimibe 10 mg PO QHS 09/01/13 [History Last Taken 08/25/21] pantoprazole 40 mg PO DAILY 09/01/13 [History Last Taken 08/27/21] nitroglycerin 0.4 mg sublingual tablet 0.4 mg SUBLINGUAL Q5M PRN #25 tab 10/05/18 [Rx Last Taken 04/12/19] niacin (inositol niacinate) 1,000 mg PO BID 12/19/19 [History Last Taken 08/27/21] furosemide [Lasix] 10 mg PO DAILY PRN 12/15/20 [History Last Taken 08/27/21] clopidogrel 75 mg PO DAILY 04/18/21 [History Last Taken 08/27/21] levocetirizine 5 mg tablet 5 mg PO DAILY 07/15/21 [History Last Taken 08/26/21] acetaminophen 650 mg PO Q4H PRN 09/17/21 [History Last Taken Unknown] cilostazol [Pletal] 50 mg PO BID 09/17/21 [History Last Taken Unknown] ergocalciferol (vitamin D2) [Vitamin D2] 50,000 unit PO MOTH 09/17/21 [History Last Taken Unknown] iron,carbonyl-vitamin C [Vitron-C] 1 tab PO BID 09/17/21 [History Last Taken Unknown] metoprolol tartrate 75 mg PO BID 09/17/21 [History Last Taken Unknown] Allergy/AdvReac Type Severity Reaction Status Date / Time Sulfa (Sulfonamide Allergy Severe HEART Verified 09/17/21 11:35 Antibiotics) RACING Latex, Natural Rubber Allergy Rash, Verified 09/17/21 11:35 psioriasis amoxicillin [From Augmentin] AdvReac Nausea Verified 09/17/21 11:35 atorvastatin [From Lipitor] AdvReac Other Verified 09/17/21 11:35 clavulanic acid AdvReac Nausea Verified 09/17/21 11:35 [From Augmentin] Iodinated Contrast Media AdvReac Other Verified 09/17/21 11:35 [CONTRASTS] niacin AdvReac Other Verified 09/17/21 11:35 [From Niaspan Extended-Release] red dye AdvReac NEEDS Verified 09/17/21 11:35 FOLLOW-UP rosuvastatin [From Crestor] AdvReac Other Verified 09/17/21 11:35 turkey grease AdvReac Rash Uncoded 09/17/21 11:35 Family History Mother Heart disease Diabetes Father Heart disease Cancer Sister Cancer COPD (chronic obstructive pulmonary disease) Surgical History History of aortic valve replacement with bioprosthetic valve (~09/06/13) History of bilateral carotid endarterectomy History of coronary artery bypass surgery (~09/06/13) History of left mastectomy (~1998) History of right mastectomy (~1998) History of tubal ligation Social History household members: none housing: house Smoking Status: Former smoker how long ago did patient quit smokin second hand exposure: No alcohol intake: never substance use type: does not use caffeine: Yes Type: coffee Number of servings: 2 and tea what type of physical activity do you participate in: none franci/roman catholic: Mosque seatbelt use: always do you feel safe at home: Yes ROS <JACLYN Camacho - Last Filed: 09/17/21 16:17> ROS ED ROS Narrative Constitutional: Negative for fever, chills, weight loss, weakness Eyes: Negative for vision loss, vision change, double vision ENT: Negative for any sore throat, ear pain, congestion Cardiovascular: Negative for any chest pain, tightness, palpitations, racing heartbeat Respiratory: Negative for any cough, sputum production, hemoptysis, shortness of breath, shortness of breath on exertion, orthopnea Gastrointestinal: Negative for any vomiting, diarrhea, constipation, blood in stool, blood in vomit. Positive for right upper quadrant abdominal pain, nausea : Negative for any urinary frequency, incontinence, dysuria, retention, blood in urine Muscle skeletal: Negative for any muscle joint pain, stiffness, myalgias, arthralgias, neck pain, back pain Neurological: Negative for any headache, dizziness, syncope, numbness or tingling Skin: Negative for any rashes, lumps, itching, abrasions, lacerations Psychiatric: Negative for any depression, anxiety, stress, suicidal ideation, homicidal ideation Hematologic: Negative for any easy bruising, excessive bruising, easy bleeding Allergies: Negative for any eczema, hives, rash EXAM <JACLYN Camacho - Last Filed: 09/17/21 16:17> Physical Exam Narrative Exam Narrative: Vital signs reviewed. Patient arrives in moderate distress secondary to right upper quadrant abdominal pain that radiates to her back. HEET: Head normocephalic atraumatic, TMs clear bilaterally. Posterior pharynx is clear, moist mucous membranes. Nares clear bilaterally. Neck: Supple with no lymphadenopathy or tenderness. No signs of meningismus, negative jolt sign. Cardiac: Regular rate and rhythm no murmurs gallops or rubs, equal peripheral pulses bilaterally. Respiratory: Lungs clear to auscultation bilaterally. No chest tenderness. Abdomen: Soft, nondistended. No abdominal bruit or pulsatile masses. No hepatosplenomegaly. Tenderness to the right upper quadrant positive Smith sign Extremities: No peripheral edema, no signs of gross trauma or deformity. Active full range of motion of all extremities. Neuro: Cranial nerves II through XII intact, no focal neurological deficits. Skin: Clean dry and intact with no rash, purpura, petechiae, vesicles or pustules. Backslash flank: No CVA tenderness, no midline spinal tenderness, no deformity. Psych: Normal mood and affect. No SI, HI or acute psychosis. Const Vital Signs: 09/17/21 11:25 09/17/21 11:27 09/17/21 13:27 Temperature 98.6 F 98.6 F Temperature Source Oral Oral Pulse Rate 83 84 72 Respiratory Rate 11 L 12 12 Blood Pressure 191/72 H 191/72 H 127/51 H Blood Pressure Mean 111 111 76 Pulse Ox 98 99 100 Oxygen Delivery Method Room Air Room Air Nasal Cannula Oxygen Flow Rate (L/min) 2 09/17/21 14:54 09/17/21 16:46 09/17/21 17:00 Temperature Temperature Source Pulse Rate 71 75 Respiratory Rate 18 15 Blood Pressure 115/46 L 101/37 L Blood Pressure Mean 69 58 Pulse Ox 100 96 96 Oxygen Delivery Method Nasal Cannula Room Air Room Air Oxygen Flow Rate (L/min) 2 09/17/21 19:00 Temperature Temperature Source Pulse Rate 72 Respiratory Rate 15 Blood Pressure 106/63 Blood Pressure Mean 77 Pulse Ox 96 Oxygen Delivery Method Room Air Oxygen Flow Rate (L/min) Positive well nourished and well developed General Appearance ED: well developed <Dr. Kendrick Donnelly, DO - Last Filed: 09/17/21 19:08> Physical Exam Const Vital Signs: 09/17/21 11:25 09/17/21 11:27 09/17/21 13:27 Temperature 98.6 F 98.6 F Temperature Source Oral Oral Pulse Rate 83 84 72 Respiratory Rate 11 L 12 12 Blood Pressure 191/72 H 191/72 H 127/51 H Blood Pressure Mean 111 111 76 Pulse Ox 98 99 100 Oxygen Delivery Method Room Air Room Air Nasal Cannula Oxygen Flow Rate (L/min) 2 09/17/21 14:54 09/17/21 16:46 09/17/21 17:00 Temperature Temperature Source Pulse Rate 71 75 Respiratory Rate 18 15 Blood Pressure 115/46 L 101/37 L Blood Pressure Mean 69 58 Pulse Ox 100 96 96 Oxygen Delivery Method Nasal Cannula Room Air Room Air Oxygen Flow Rate (L/min) 2 09/17/21 19:00 Temperature Temperature Source Pulse Rate 72 Respiratory Rate 15 Blood Pressure 106/63 Blood Pressure Mean 77 Pulse Ox 96 Oxygen Delivery Method Room Air Oxygen Flow Rate (L/min) [facility] <JACLYN Camacho - Last Filed: 09/17/21 16:17> [facility] Narrative Medical decision making narrative: Patient arrives in moderate distress secondary to right upper quadrant pain. Patient presents the emergency department with acute right upper quadrant abdominal pain, she also had a biliary stent placed 2 weeks ago at the [facility] for the same issue. Patient did receive basic lab values, patient CBC showed slight anemia at 8.6 however this appears to be chronic. Patient's chemistries show slight bump in her creatinine at 1.13, patient's liver function tests were unremarkable. I did obtain a ultrasound of the right upper quadrant. This showed a stent within the dilated common bile duct which appears to extend into the right hepatic duct and may be malpositioned/migrated superiorly. The distal portions of the stent are common bile duct not visualized. Cholelithiasis and trace nonspecific pericholecystic fluid without definitive findings to suggest acute cholecystitis. Patient did have IV fluids, IV Zofran, IV morphine, this did greatly improve her symptoms. Patient does have a long cardiac history with a [place] cow valve placed at [facility] in 2013. Patient did convert to rhythm with a different QRS however she was asymptomatic. This did convert back. She states this happens when she is stressed. Patient is now normal sinus rhythm. I did speak with [facility], they will admit this patient to [facility]. We are currently waiting on a bed. Patient admitted to Lab Data Attestation: I reviewed the patient's lab results. Labs: Laboratory Results - last 24 hr 09/17/21 09/17/21 12:00 12:00 WBC 8.9 RBC 3.12 L Hgb 8.6 L Hct 28.3 L MCV 90.7 MCH 27.6 MCHC 30.4 L RDW Std Deviation 53.1 H RDW Coeff of Velasquez 16.2 H Plt Count 323 MPV 10.0 Immature Gran % (Auto) 0.200 Neut % (Auto) 76.6 H Lymph % (Auto) 10.9 L Cole % (Auto) 6.9 Eos % (Auto) 4.7 Baso % (Auto) 0.7 Absolute Neuts (auto) 6.8 Absolute Lymphs (auto) 0.97 Nucleated RBC % 0 Sodium 137 Potassium 4.2 Chloride 103 Carbon Dioxide 27.0 Anion Gap 7 BUN 14 Creatinine 1.13 H Estim Creat Clear Calc 30.88 Est GFR (MDRD) Af Amer 59 L Est GFR (MDRD) Non-Af 49 L BUN/Creatinine Ratio 12.4 Glucose 125 H Calcium 8.9 Total Bilirubin 0.70 Direct Bilirubin 0.17 AST 20 ALT 17 Alkaline Phosphatase 66 Total Protein 7.3 Albumin 3.8 Globulin 3.5 Amylase 34 Lipase 169 Radiography Diagnostic Testing: Clinical Impression(s) from Imaging Studies Gallbladder Ultrasound 09/17/21 11:54 IMPRESSION: 1. Stent within the dilated common bile duct appears to extend into the right hepatic duct and may be malpositioned/migrated superiorly. The distal portions of the stent in common bile duct not visualized. Correlation with outside imaging if available recommended to assess stability in position. 2. Cholelithiasis and trace nonspecific pericholecystic fluid without definitive findings to suggest acute cholecystitis. 3. Scattered trace pneumobilia likely iatrogenic and expected from recent stent placement. 4. No other acute findings. Electronically Signed: Christopher Almonte, at 13:29 EDT , <Dr. Kendrick Donnelly, DO - Last Filed: 09/17/21 19:08> [facility] Narrative Medical decision making narrative: This patient was seen with a PA/AVIATION SAFETY EQUIPMENT TECHNICIAN Individually assessed they patient including history and physical. I have reviewed everything on the chart that is available and agree with the documentation provided by the PA/AVIATION SAFETY EQUIPMENT TECHNICIAN including discussion about the assessment, treatment plan, discussion, and return precautions. 81-year-old female presenting with right upper quadrant pain status post stenting at [facility]. She was treated with morphine and Zofran. POCUS obtained and she has no leukocytosis. Hemoglobin is stable at 8.6. Creatinine slightly elevated 1.13. Patient was given IV fluids. Electrolytes and LFTs are normal. Lipase is also normal. Right upper quadrant ultrasound shows that the stent within the common bile duct has migrated and this is likely the cause of her pain. Patient was discussed with [facility] for transfer. Accepted by Dr. Bryan. Impression: 1. Abdominal pain 2. History of CBD stent Lab Data Attestation: I reviewed the patient's lab results. Labs: Laboratory Results - last 24 hr 09/17/21 09/17/21 12:00 12:00 WBC 8.9 RBC 3.12 L Hgb 8.6 L Hct 28.3 L MCV 90.7 MCH 27.6 MCHC 30.4 L RDW Std Deviation 53.1 H RDW Coeff of Velasquez 16.2 H Plt Count 323 MPV 10.0 Immature Gran % (Auto) 0.200 Neut % (Auto) 76.6 H Lymph % (Auto) 10.9 L Cole % (Auto) 6.9 Eos % (Auto) 4.7 Baso % (Auto) 0.7 Absolute Neuts (auto) 6.8 Absolute Lymphs (auto) 0.97 Nucleated RBC % 0 Sodium 137 Potassium 4.2 Chloride 103 Carbon Dioxide 27.0 Anion Gap 7 BUN 14 Creatinine 1.13 H Estim Creat Clear Calc 30.88 Est GFR (MDRD) Af Amer 59 L Est GFR (MDRD) Non-Af 49 L BUN/Creatinine Ratio 12.4 Glucose 125 H Calcium 8.9 Total Bilirubin 0.70 Direct Bilirubin 0.17 AST 20 ALT 17 Alkaline Phosphatase 66 Total Protein 7.3 Albumin 3.8 Globulin 3.5 Amylase 34 Lipase 169 Radiography Diagnostic Testing: Clinical Impression(s) from Imaging Studies Gallbladder Ultrasound 09/17/21 11:54 IMPRESSION: 1. Stent within the dilated common bile duct appears to extend into the right hepatic duct and may be malpositioned/migrated superiorly. The distal portions of the stent in common bile duct not visualized. Correlation with outside imaging if available recommended to assess stability in position. 2. Cholelithiasis and trace nonspecific pericholecystic fluid without definitive findings to suggest acute cholecystitis. 3. Scattered trace pneumobilia likely iatrogenic and expected from recent stent placement. 4. No other acute findings. Electronically Signed: Christopher Almonte, at 13:29 EDT , Discharge Plan Triage Chief Complaint: Abd Pain ED Midlevel Provider: Fredi Giraldo ED Provider: Kendrick Donnelly Dx/Rx/DC Orders Clinical Impression: Biliary colic, Abdominal pain, acute, right upper quadrant Prescriptions: No Action nitroglycerin 0.4 mg tablet, sublingual 0.4 mg SUBLINGUAL Q5M PRN (Reason: Chest Pain) Qty: 25 RF: 1 levocetirizine [Xyzal] 5 mg tablet 5 mg PO DAILY RF: 0 pantoprazole 40 MG tablet 40 mg PO DAILY RF: 0 ezetimibe 10 MG tablet 10 mg PO QHS RF: 0 niacin (inositol niacinate) 500 MG capsule 1,000 mg PO BID RF: 0 furosemide [Lasix] 20 mg Tablet 10 mg PO DAILY PRN (Reason: Edema) RF: 0 clopidogrel 75 mg tablet 75 mg PO DAILY RF: 0 Hold Instructions: Hold until appointment with Dr. Montague. cilostazol [Pletal] 50 mg Tablet 50 mg PO BID RF: 0 Vitamin D2 25,000 unit Capsule 50,000 unit PO MOTH RF: 0 acetaminophen 325 mg Capsule 650 mg PO Q4H PRN (Reason: PAIN/FEVER) RF: 0 Vitron-C 65 mg iron- 125 mg Tablet,Delayed Release (Dr/Ec) 1 tab PO BID RF: 0 metoprolol tartrate 100 mg tablet 75 mg PO BID RF: 0 Primary Care Provider: Daisha Ramirez Referrals: Daisha Ramirez DO [Primary Care Provider] - Disposition Disposition: Acute Care Hospital Discharge Location: [facility]
[2021-09-17 12:11] LABS: Absolute Lymphocyte Count 0.97 X10^3/uL (0.83-4.51); Absolute Neutrophil Count 6.8 X10^3/uL (2.0-7.7); Basophil# 0.06 X10^3/uL; Basophil% 0.7 % (0-1); Eosinophil# 0.42 X10^3/uL; Eosinophils% 4.7 % (0-5); Hematocrit 28.3 % (37-47); Hemoglobin 8.6 g/dL (12.0-15.0); Lymphocyte # 0.97 X10^3/ul (0.83-4.51); Lymphocyte % 10.9 % (19-41); Mean Corp Hgb Conc 30.4 g/dL (32-36); Mean Corpuscular Hgb 27.6 pg (27.0-32.0); Mean Corpuscular Volume 90.7 fL (81-99); Monocyte# 0.62 X10^3/uL; Monocyte% 6.9 % (0-10); NRBC Flagged by Analyzer 0 % (0-5); Neutrophil # 6.84 X10^3/uL (2.7-7.7); Neutrophil % 76.6 % (47-70); Platelet Count 323 K/mm3 (150-450); RBC Distribution Width CV 16.2 % (11.6-14.6); RBC Distribution Width SD 53.1 fl (35.1-43.9); Red Blood Count 3.12 M/mm3 (4.2-5.4); White Blood Count 8.9 K/mm3 (4.4-11.0)
[2021-09-17] MEDS: Morphine 4 MG/ML Syringe IV (12:13)
[2021-09-17] MEDS: 0.9% Normal Saline 1,000 ML 1000 ML IV (12:13)
[2021-09-17] MEDS: Ondansetron 4 MG/2 ML Vial IV (12:13)
[2021-09-17 12:25] LABS: AST(SGOT) 20 U/L (15-37); Alanine Aminotransfer ALT/SGPT 17 U/L (13-56); Albumin, Serum 3.8 g/dL (3.2-5.0); Alkaline Phosphatase 66 U/L (45-117); Amylase 34 U/L (25-115); Anion Gap 7 (5-15); BUN 14 mg/dL (7-18); BUN/Creat Ratio 12.4 RATIO (10-20); Bilirubin, Direct 0.17 mg/dL (0.00-0.30); Calcium,Total 8.9 mg/dL (8.5-10.1); Chloride 103 mmol/L (98-107); Creatinine, Serum 1.13 mg/dL (0.55-1.02); EST Glomerular Filtration Rate 49 mL/min (>60); Est Glom Filt Rate - Afr Amer 59 mL/min (>60); Estimated Creatinine Clearance 30.88 ml/min; Globulin 3.5 g/dL (2.2-4.2); Glucose 125 mg/dL (74-106); Lipase 169 U/L (73-393); Potassium 4.2 mmol/L (3.5-5.1); Protein, Total 7.3 g/dL (6.4-8.2); Sodium Level 137 mmol/L (136-145)
--- NOTE | 2021-09-17 13:49 | EKG12_ITS ---
Test Reason : RYTHUM CHANGE Blood Pressure : / mmHG Vent. Rate : 067 BPM Atrial Rate : 067 BPM P-R Int : 168 ms QRS Dur : 116 ms QT Int : 460 ms P-R-T Axes : 082 -07 124 degrees QTc Int : 486 ms Normal sinus rhythm Left ventricular hypertrophy with QRS widening and repolarization abnormality Abnormal ECG Confirmed by FAYE DELGADILLO, KAREN ([id number]), editor map CHRISTIN BARTHOLOMEW ([id number]) on 09/23/2021 7:21:43 AM Referred By: ALANA Confirmed By:KAREN MCKINNEY MD
--- NOTE | 2021-09-17 22:24 | PCM.HP.STD ---
HPI - General HPI Narrative SAMMY SWANN, is a 81 F with a significant history of who presents CAD status post CABG in 2013 who presented to the emergency department with excruciating right-sided abdominal pain that radiated to her back. She described the pain as solid. The pain is progressively worsening. She denies any ameliorating or aggravating factors to the pain. Associated for symptoms is nausea without vomiting. Because of her pain as she missed a hematology appointment and a cardiology appointment that was scheduled on the same day of presentation Of note patient had a biliary stent placed second week of August [address] [facility]. Patient has been accepted at [facility] however there are no beds. On this presentation reportedly patient had a brief abnormal rhythm at the emergency department. [facility] Medical History Acute blood loss anemia Anemia Atherosclerotic heart disease of [place] coronary artery without angina pectoris Atypical chest pain Bilateral carotid artery stenosis Bilateral carotid bruits Biliary colic CAD (coronary artery disease) Carotid stenosis Cholelithiasis Jayson's syndrome Effusion, left knee Essential hypertension Former smoker Gallstones Gastrointestinal bleeding, upper GERD (gastroesophageal reflux disease) History of left heart catheterization (LHC) (~07/14/20) HTN (hypertension) Hypertension Iron deficiency anemia due to chronic blood loss Near syncope Nonrheumatic aortic (valve) stenosis [place] (obstructive sleep apnea) Osteoarthritis Paroxysmal atrial fibrillation PND (post-nasal drip) Psoriasis Pure hypercholesterolemia Sleep disorder Sleep disorder breathing SOB (shortness of breath) on exertion TIA (transient ischemic attack) TIA (transient ischemic attack) Tobacco abuse Type 2 diabetes mellitus UGIB (upper gastrointestinal bleed) Home Medications ezetimibe 10 mg PO QHS 09/01/13 [History Last Taken 08/25/21] pantoprazole 40 mg PO DAILY 09/01/13 [History Last Taken 08/27/21] nitroglycerin 0.4 mg sublingual tablet 0.4 mg SUBLINGUAL Q5M PRN #25 tab 10/05/18 [Rx Last Taken 04/12/19] niacin (inositol niacinate) 1,000 mg PO BID 04/12/19 [History Last Taken 08/27/21] furosemide [Lasix] 10 mg PO DAILY PRN 12/15/20 [History Last Taken 08/27/21] clopidogrel 75 mg PO DAILY 04/18/21 [History Last Taken 08/27/21] levocetirizine 5 mg tablet 5 mg PO DAILY 07/15/21 [History Last Taken 08/26/21] acetaminophen 650 mg PO Q4H PRN 09/17/21 [History Last Taken Unknown] cilostazol [Pletal] 50 mg PO BID 09/17/21 [History Last Taken Unknown] ergocalciferol (vitamin D2) [Vitamin D2] 50,000 unit PO MOTH 09/17/21 [History Last Taken Unknown] iron,carbonyl-vitamin C [Vitron-C] 1 tab PO BID 09/17/21 [History Last Taken Unknown] metoprolol tartrate 75 mg PO BID 09/17/21 [History Last Taken Unknown] Allergy/AdvReac Type Severity Reaction Status Date / Time Sulfa (Sulfonamide Allergy Severe HEART Verified 09/17/21 11:35 Antibiotics) RACING Latex, Natural Rubber Allergy Rash, Verified 09/17/21 11:35 psioriasis amoxicillin [From Augmentin] AdvReac Nausea Verified 09/17/21 11:35 atorvastatin [From Lipitor] AdvReac Other Verified 09/17/21 11:35 clavulanic acid AdvReac Nausea Verified 09/17/21 11:35 [From Augmentin] Iodinated Contrast Media AdvReac Other Verified 09/17/21 11:35 [CONTRASTS] niacin AdvReac Other Verified 09/17/21 11:35 [From Niaspan Extended-Release] red dye AdvReac NEEDS Verified 09/17/21 11:35 FOLLOW-UP rosuvastatin [From Crestor] AdvReac Other Verified 09/17/21 11:35 turkey grease AdvReac Rash Uncoded 09/17/21 11:35 Family History Mother Heart disease Diabetes Father Heart disease Cancer Sister Cancer COPD (chronic obstructive pulmonary disease) Surgical History History of aortic valve replacement with bioprosthetic valve (~09/06/13) History of bilateral carotid endarterectomy History of coronary artery bypass surgery (~09/06/13) History of left mastectomy (~1998) History of right mastectomy (~1998) History of tubal ligation Social History household members: none housing: house Smoking Status: Former smoker how long ago did patient quit smokin second hand exposure: No alcohol intake: never substance use type: does not use caffeine: Yes Type: coffee Number of servings: 2 and tea what type of physical activity do you participate in: none franci/nondenominational: Congregation seatbelt use: always do you feel safe at home: Yes ROS ROS Narrative Pertinent positives and pertinent negatives as noted in HPI. All other systems were reviewed and are negative. Vital Signs Vital Signs Vital Signs: 09/17/21 11:25 09/17/21 11:27 09/17/21 13:27 Temperature 98.6 F 98.6 F Temperature Source Oral Oral Pulse Rate 83 84 72 Respiratory Rate 11 L 12 12 Blood Pressure 191/72 H 191/72 H 127/51 H Blood Pressure Mean 111 111 76 Pulse Ox 98 99 100 Oxygen Delivery Method Room Air Room Air Nasal Cannula Oxygen Flow Rate (L/min) 2 09/17/21 14:54 09/17/21 16:46 09/17/21 17:00 Temperature Temperature Source Pulse Rate 71 75 Respiratory Rate 18 15 Blood Pressure 115/46 L 101/37 L Blood Pressure Mean 69 58 Pulse Ox 100 96 96 Oxygen Delivery Method Nasal Cannula Room Air Room Air Oxygen Flow Rate (L/min) 2 09/17/21 19:00 09/17/21 21:00 09/17/21 22:00 Temperature Temperature Source Pulse Rate 72 75 78 Respiratory Rate 15 16 13 Blood Pressure 106/63 102/49 L 102/49 L Blood Pressure Mean 77 66 66 Pulse Ox 96 95 93 Oxygen Delivery Method Room Air Room Air Room Air Oxygen Flow Rate (L/min) 09/17/21 22:14 Temperature 97.6 F L Temperature Source Temporal Pulse Rate 75 Respiratory Rate 15 Blood Pressure 102/69 Blood Pressure Mean 80 Pulse Ox 97 Oxygen Delivery Method Room Air Oxygen Flow Rate (L/min) Weight Weight: 64.41 kg Body Mass Index (BMI) 25.9 Physical Exam Narrative Physical exam: General: Well-nourished, well-developed. Head: Normocephalic, atraumatic, no tenderness Eyes: Vision is grossly intact. EOMI ENT, no trauma, moist mucous membranes, no rhinorrhea Neck: Nontender, full range of motion, no spinal tenderness, deformities, step-off CVS: Regular rate and rhythm. S1-S2 present. No murmur, gallop or rub. Respiratory : clear to auscultation bilaterally, chest wall nontender, no wheezing Abdomen: Soft, nontender, nondistended, normal bowel sounds, no masses : Deferred Back: Nontender, no CVA tenderness, no midline spinal tenderness, deformities, step-offs Extremities: Nontender full range of motion, no trauma Skin: Normal color, no trauma, abrasions Neuro: Alert, oriented, cranial nerves II through XII grossly intact. Psychiatry: Normal mood. Normal affect. Not depressed. Not anxious. Results Lab / Micro Data Result Diagrams: 09/17/21 12:00 09/17/21 12:00 Labs: Laboratory Results - last 24 hr 09/17/21 12:00: WBC 8.9, RBC 3.12 L, Hgb 8.6 L, Hct 28.3 L, MCV 90.7, MCH 27.6, MCHC 30.4 L, RDW Std Deviation 53.1 H, RDW Coeff of Velasquez 16.2 H, Plt Count 323, MPV 10.0, Immature Gran % (Auto) 0.200, Neut % (Auto) 76.6 H, Lymph % (Auto) 10.9 L, [place] % (Auto) 6.9, Eos % (Auto) 4.7, Baso % (Auto) 0.7, Absolute Neuts (auto) 6.8, Absolute Lymphs (auto) 0.97, Nucleated RBC % 0 09/17/21 12:00: Sodium 137, Potassium 4.2, Chloride 103, Carbon Dioxide 27.0, Anion Gap 7, BUN 14, Creatinine 1.13 H, Estim Creat Clear Calc 30.88, Est GFR (MDRD) Af Amer 59 L, Est GFR (MDRD) Non-Af 49 L, BUN/Creatinine Ratio 12.4, Glucose 125 H, Calcium 8.9, Total Bilirubin 0.70, Direct Bilirubin 0.17, AST 20, ALT 17, Alkaline Phosphatase 66, Total Protein 7.3, Albumin 3.8, Globulin 3.5, Amylase 34, Lipase 169 Radiology Impression Gallbladder Ultrasound 09/17/21 11:54 IMPRESSION: 1. Stent within the dilated common bile duct appears to extend into the right hepatic duct and may be malpositioned/migrated superiorly. The distal portions of the stent in common bile duct not visualized. Correlation with outside imaging if available recommended to assess stability in position. 2. Cholelithiasis and trace nonspecific pericholecystic fluid without definitive findings to suggest acute cholecystitis. 3. Scattered trace pneumobilia likely iatrogenic and expected from recent stent placement. 4. No other acute findings. Electronically Signed: Christopher Almonte, at 13:29 EDT , Assessment & Plan Assessment/Plan (1) Biliary stenosis: (2) Biliary colic: PLAN: Biliary colic with biliary stenosis Gallbladder ultrasound was visualized and independent interpreted and agree direct interpretation above. While awaiting for a bed patient ([facility]) will be observed at our hospital for ([facility]). As needed morphine IV for pain; as needed IV Zofran for nausea and vomiting. Put on clear liquid diet. Hold Plavix as patient may GI intervention with her biliary stents. Cilostazol continued. Abnormal heart rhythm. EKG showed left ventricular hypertrophy with IVCD. EKG before presentation showed left bundle branch block. Will place on MedSurg on telemetry Chronic anemia Stable Follows up with hematology. Trend CBC CKD stage II Stable Trend BMP. DVT prophylaxis: SCD ordered CODE STATUS: Full code. Patient's son, Kolby Swann reportedly is POA. Charges/Coding Visit Charges Inpatient E&M: 70356 Init Hosp L2 OBSV E&M: 50514 Initial observation care L3
[2021-09-18] VITALS (12 sets, daily range): BP systolic 110–132; BP diastolic 51–79; PULSE 66–105; RESP 18–20; TEMP 37.1–37.3; O2SAT 92–98
[2021-09-18] MEDS: 0.9% Saline Lock 10 ML Syringe IV ×2 (00:28→22:38)
[2021-09-18 06:23] LABS: Absolute Lymphocyte Count 1.01 X10^3/uL (0.83-4.51); Absolute Neutrophil Count 5.4 X10^3/uL (2.0-7.7); Basophil# 0.05 X10^3/uL; Basophil% 0.7 % (0-1); Eosinophil# 0.39 X10^3/uL; Eosinophils% 5.2 % (0-5); Hematocrit 26.7 % (37-47); Hemoglobin 8.1 g/dL (12.0-15.0); Lymphocyte # 1.01 X10^3/ul (0.83-4.51); Lymphocyte % 13.5 % (19-41); Mean Corp Hgb Conc 30.3 g/dL (32-36); Mean Corpuscular Hgb 27.3 pg (27.0-32.0); Mean Corpuscular Volume 89.9 fL (81-99); Mean Platelet Vol. 9.4 fl (6.2-12.0); Monocyte# 0.59 X10^3/uL; Monocyte% 7.9 % (0-10); NRBC Flagged by Analyzer 0 % (0-5); Neutrophil % 72.2 % (47-70); Platelet Count 286 K/mm3 (150-450); RBC Distribution Width CV 16.3 % (11.6-14.6); Red Blood Count 2.97 M/mm3 (4.2-5.4); White Blood Count 7.5 K/mm3 (4.4-11.0)
[2021-09-18 06:50] LABS: Anion Gap 5 (5-15); BUN 11 mg/dL (7-18); BUN/Creat Ratio 12.5 RATIO (10-20); Calcium,Total 8.3 mg/dL (8.5-10.1); Chloride 108 mmol/L (98-107); Creatinine, Serum 0.88 mg/dL (0.55-1.02); EST Glomerular Filtration Rate 65 mL/min (>60); Est Glom Filt Rate - Afr Amer 79 mL/min (>60); Estimated Creatinine Clearance 37.83 ml/min; Glucose 87 mg/dL (74-106); Potassium 4.1 mmol/L (3.5-5.1); Sodium Level 141 mmol/L (136-145)
--- NOTE | 2021-09-18 07:18 | PCM.PN.HOSP ---
Subjective Subjective No abdominal pain. Objective Data Objective Data Vital Signs: Vital Signs Temp Pulse Resp BP Pulse Ox 37.1 C 86 20 H 113/56 L 92 09/18/21 05:35 09/18/21 05:35 09/18/21 05:35 09/18/21 05:35 09/18/21 05:35 Oxygen Flow Rate (L/min) 2 Oxygen Delivery Method Room Air Weight: 62.9 kg Body Mass Index (BMI) 25.4 Intake & Output: Intake and Output for Last 24 Hours 09/16/21 09/17/21 09/18/21 23:59 23:59 23:59 Intake Total 1000 / 1000 Balance 1000 / 1000 Lab / Micro Data Result Diagrams: 09/18/21 06:10 09/18/21 06:10 Labs: Laboratory Results - last 24 hr 09/17/21 12:00: WBC 8.9, RBC 3.12 L, Hgb 8.6 L, Hct 28.3 L, MCV 90.7, MCH 27.6, MCHC 30.4 L, RDW Std Deviation 53.1 H, RDW Coeff of Velasquez 16.2 H, Plt Count 323, MPV 10.0, Immature Gran % (Auto) 0.200, Neut % (Auto) 76.6 H, Lymph % (Auto) 10.9 L, [place] % (Auto) 6.9, Eos % (Auto) 4.7, Baso % (Auto) 0.7, Absolute Neuts (auto) 6.8, Absolute Lymphs (auto) 0.97, Nucleated RBC % 0 09/17/21 12:00: Sodium 137, Potassium 4.2, Chloride 103, Carbon Dioxide 27.0, Anion Gap 7, BUN 14, Creatinine 1.13 H, Estim Creat Clear Calc 30.88, Est GFR (MDRD) Af Amer 59 L, Est GFR (MDRD) Non-Af 49 L, BUN/Creatinine Ratio 12.4, Glucose 125 H, Calcium 8.9, Total Bilirubin 0.70, Direct Bilirubin 0.17, AST 20, ALT 17, Alkaline Phosphatase 66, Total Protein 7.3, Albumin 3.8, Globulin 3.5, Amylase 34, Lipase 169 09/18/21 06:10: WBC 7.5, RBC 2.97 L, Hgb 8.1 L, Hct 26.7 L, MCV 89.9, MCH 27.3, MCHC 30.3 L, RDW Std Deviation 54.0 H, RDW Coeff of Velasquez 16.3 H, Plt Count 286, MPV 9.4, Immature Gran % (Auto) 0.500, Neut % (Auto) 72.2 H, Lymph % (Auto) 13.5 L, [place] % (Auto) 7.9, Eos % (Auto) 5.2 H, Baso % (Auto) 0.7, Absolute Neuts (auto) 5.4, Absolute Lymphs (auto) 1.01, Nucleated RBC % 0 09/18/21 06:10: Sodium 141, Potassium 4.1, Chloride 108 H, Carbon Dioxide 28.0, Anion Gap 5, BUN 11, Creatinine 0.88, Estim Creat Clear Calc 37.83, Est GFR (MDRD) Af Amer 79, Est GFR (MDRD) Non-Af 65, BUN/Creatinine Ratio 12.5, Glucose 87, Calcium 8.3 L Radiography Diagnostic Testing: Radiology Impression Gallbladder Ultrasound 09/17/21 11:54 IMPRESSION: 1. Stent within the dilated common bile duct appears to extend into the right hepatic duct and may be malpositioned/migrated superiorly. The distal portions of the stent in common bile duct not visualized. Correlation with outside imaging if available recommended to assess stability in position. 2. Cholelithiasis and trace nonspecific pericholecystic fluid without definitive findings to suggest acute cholecystitis. 3. Scattered trace pneumobilia likely iatrogenic and expected from recent stent placement. 4. No other acute findings. Electronically Signed: Christopher Almonte, at 13:29 EDT , Physical Exam Const alert and no apparent distress Resp normal respiratory effort, no retractions, no use of accessory muscles and clear to auscultation bilaterally Cardio regular rate, regular rhythm, S1 normal heart sound and S2 normal heart sound GI normal to inspection, nondistended, normoactive bowel sounds, soft to palpation, non-tender and non-distended Extremity normal to inspection Assessment & Plan Assessment/Plan (1) Biliary stent migration: PLAN: 1. malpositioned biliary stent pneumobilia may be from stent placement. stent within the dilated CBD appears to extend into the right hepatic duct. accepted at [facility], awaiting on bed CLD 2. CAD [facility] from June 2020. Mild disease in L main and prox LAD. s/p CABG. on clopidogrel, metoprolol tartrate 3. VTE prophylaxis: SCDs Charges/Coding Visit Charges Inpatient E&M: 14604 Subs Hosp L2 OBSV E&M: 38608 Subsequent observation care L2
[2021-09-18] MEDS: Metoprolol Tartrate 25 MG Tablet 75 MG PO ×2 (09:03→22:36)
[2021-09-18] MEDS: Loratadine 10 MG Tablet PO (09:03)
[2021-09-18] MEDS: Pantoprazole Sodium 40 MG Tablet PO (09:04)
[2021-09-18] MEDS: Cilostazol 50 MG Tablet PO (09:04)
--- NOTE | 2021-09-18 14:11 | NURSING ---
called [facility] transfer center, aware still awaiting on bed at this time
--- NOTE | 2021-09-18 15:05 | CHAPLAIN ---
Type of Pastoral Visit _x__ Initial Visit ___ Follow-up Visit ___ On-call Visit ___ General Patient Visit ___ Spiritual Assessment ___ Family Conference ___ Bereavement ___ Rapid Response ___ Code Blue ___ Other (describe below) Pastoral Care Referral From _x__ Patient ___ Family ___ Nurse ___ Physician ___ End Matcher ___ Fulling Mill Operator ___ Other (describe below) Sacrament/Intervention _x__ Active listening ___ Anointing ___ Synagogue ___ Bereavement ___ Communion ___ Gin exploration ___ _x__ Life review _x__ Prayer ___ Reconciliation ___ Sacrament of Sick _x__ Supportive presence ___ Wedding ___ Other (describe below) Pastoral Comments some life review done with patient; pt describes her situation and waiting on a bed for [facility] and hopes of having corrective surgery from a previous one; 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
[2021-09-18] MEDS: Ezetimibe 10 MG Tablet PO (22:36)
[2021-09-19] VITALS (11 sets, daily range): BP systolic 114–121; BP diastolic 43–84; PULSE 61–84; RESP 16–18; TEMP 36.6–37.1; O2SAT 96–99
[2021-09-19 06:22] LABS: Absolute Lymphocyte Count 0.95 X10^3/uL (0.83-4.51); Absolute Neutrophil Count 3.9 X10^3/uL (2.0-7.7); Basophil# 0.05 X10^3/uL; Basophil% 0.9 % (0-1); Eosinophil# 0.45 X10^3/uL; Eosinophils% 7.8 % (0-5); Hematocrit 26.4 % (37-47); Hemoglobin 7.7 g/dL (12.0-15.0); Lymphocyte # 0.95 X10^3/ul (0.83-4.51); Lymphocyte % 16.4 % (19-41); Mean Corp Hgb Conc 29.2 g/dL (32-36); Mean Corpuscular Hgb 26.8 pg (27.0-32.0); Mean Platelet Vol. 9.7 fl (6.2-12.0); Monocyte# 0.48 X10^3/uL; Monocyte% 8.3 % (0-10); NRBC Flagged by Analyzer 0 % (0-5); Neutrophil # 3.85 X10^3/uL (2.7-7.7); Neutrophil % 66.3 % (47-70); Platelet Count 298 K/mm3 (150-450); RBC Distribution Width CV 16.1 % (11.6-14.6); Red Blood Count 2.87 M/mm3 (4.2-5.4); White Blood Count 5.8 K/mm3 (4.4-11.0)
[2021-09-19 07:01] LABS: AST(SGOT) 18 U/L (15-37); Alanine Aminotransfer ALT/SGPT 12 U/L (13-56); Albumin, Serum 2.9 g/dL (3.2-5.0); Alkaline Phosphatase 56 U/L (45-117); Anion Gap 5 (5-15); BUN 10 mg/dL (7-18); BUN/Creat Ratio 11.6 RATIO (10-20); Calcium,Total 8.4 mg/dL (8.5-10.1); Chloride 107 mmol/L (98-107); Creatinine, Serum 0.86 mg/dL (0.55-1.02); EST Glomerular Filtration Rate 67 mL/min (>60); Est Glom Filt Rate - Afr Amer 81 mL/min (>60); Estimated Creatinine Clearance 38.71 ml/min; Glucose 89 mg/dL (74-106); Potassium 4.2 mmol/L (3.5-5.1); Protein, Total 5.9 g/dL (6.4-8.2); Sodium Level 141 mmol/L (136-145)
[2021-09-19] MEDS: Loratadine 10 MG Tablet PO (09:18)
[2021-09-19] MEDS: Pantoprazole Sodium 40 MG Tablet PO (09:18)
[2021-09-19] MEDS: Metoprolol Tartrate 25 MG Tablet 75 MG PO (09:18)
--- NOTE | 2021-09-19 09:55 | PCM.PN.HOSP ---
Subjective Subjective Patient seen and examined. She had no active complaints and had an uneventful night. Review of systems is otherwise negative. She is awaiting transfer to [facility]. Objective Data Objective Data Vital Signs: Vital Signs Temp Pulse Resp BP Pulse Ox 97.9 F 72 16 119/43 L 97 09/19/21 09:02 09/19/21 09:25 09/19/21 09:02 09/19/21 09:02 09/19/21 09:02 Oxygen Flow Rate (L/min) 2 Oxygen Delivery Method Room Air Weight: 138 lb 10.732 oz Body Mass Index (BMI) 25.4 Intake & Output: Intake and Output for Last 24 Hours 09/17/21 09/18/21 09/19/21 23:59 23:59 23:59 Intake Total 1000 / 1000 360 / 360 Balance 1000 / 1000 360 / 360 Lab / Micro Data Result Diagrams: 09/19/21 05:44 09/19/21 05:44 Labs: Laboratory Results - last 24 hr 09/19/21 05:44: WBC 5.8, RBC 2.87 L, Hgb 7.7 L, Hct 26.4 L, MCV 92.0, MCH 26.8 L, MCHC 29.2 L, RDW Std Deviation 54.0 H, RDW Coeff of Velasquez 16.1 H, Plt Count 298, MPV 9.7, Immature Gran % (Auto) 0.300, Neut % (Auto) 66.3, Lymph % (Auto) 16.4 L, [place] % (Auto) 8.3, Eos % (Auto) 7.8 H, Baso % (Auto) 0.9, Absolute Neuts (auto) 3.9, Absolute Lymphs (auto) 0.95, Nucleated RBC % 0 09/19/21 05:44: Sodium 141, Potassium 4.2, Chloride 107, Carbon Dioxide 29.0, Anion Gap 5, BUN 10, Creatinine 0.86, Estim Creat Clear Calc 38.71, Est GFR (MDRD) Af Amer 81, Est GFR (MDRD) Non-Af 67, BUN/Creatinine Ratio 11.6, Glucose 89, Calcium 8.4 L, Total Bilirubin 0.60, AST 18, ALT 12 L, Alkaline Phosphatase 56, Total Protein 5.9 L, Albumin 2.9 L, Globulin 3.0, Albumin/Globulin Ratio 1.0 Physical Exam Const alert, oriented x3 and no apparent distress Exam Limitations: no limitations HEENT head/scalp atraumatic and moist oral mucous membranes Head and Scalp: normocephalic Eyes PERRL, EOMs intact bilaterally and conjunctivae normal Neck no lymphadenopathy, supple and no JVD Resp normal respiratory effort, no retractions, no use of accessory muscles and clear to auscultation bilaterally Cardio regular rate, regular rhythm, S1 normal heart sound, S2 normal heart sound and no murmurs GI normal to inspection, nondistended, normoactive bowel sounds, soft to palpation, non-tender and non-distended Extremity normal to inspection, full ROM and no clubbing, cyanosis or edema Peripheral Pulses: Yes pulses 2+ throughout Skin no rashes or lesions noted Neuro oriented x3, CN's II-XII intact bilaterally and moves all extremities Sensorium / Orientation: awake and alert Psych affect normal Assessment & Plan Assessment/Plan (1) Biliary stent migration: PLAN: #Malpositioned biliary stent had a stent [id number] in her gallbladder at [facility] in August 2021 stent in dilated common bile duct seems to have extended into the right hepatic duct awaiting transfer to [facility] for further evaluation abdominal pain has resolved. #CAD s/p CABG on plavix and metoprolol #GERD: on PPI DVT prophylaxis: SCDs Charges/Coding Visit Charges Inpatient E&M: 79812 Subs Hosp L2
--- NOTE | 2021-09-19 18:54 | NURSING ---
called report to [facility]
--- NOTE | 2021-09-20 07:16 | PCM.DC.SUM ---
Providers Date of Admission: 09/17/21 Primary Care Physician: Dr. Daisha Ramirez DO Reason For Visit: BILIARY COLIC Diagnosis Discharge Diagnosis (1) Biliary stent migration: Status: Acute Code(s): T85.520A - Displacement of bile duct prosthesis, initial encounter Medications at Discharge Home Medications ezetimibe 10 mg PO QHS 09/01/13 pantoprazole 40 mg PO DAILY 09/01/13 nitroglycerin 0.4 mg sublingual tablet 0.4 mg SUBLINGUAL Q5M PRN #25 tab 10/05/18 niacin (inositol niacinate) 1,000 mg PO BID 04/12/19 furosemide [Lasix] 10 mg PO DAILY PRN 12/15/20 clopidogrel 75 mg PO DAILY 04/18/21 levocetirizine 5 mg tablet 5 mg PO DAILY 07/15/21 acetaminophen 650 mg PO Q4H PRN 09/17/21 metoprolol tartrate 75 mg PO BID 09/17/21 Hospital Course Operations None Procedures None Summary of Care Provided Minutes Spent on Discharge: 45 Hospital Course: Patient is an 81 y/o female with a PMH as outlined who was admitted via the ED wih a complaint of CAD s/p CABG who was admitted via the ED with a complaint of right sided abdominal pain that radiated to her back. Pain was progressively worsening, and had no aggravating or relieving factors. She had associated nausea and vomiting. She had had a biliary stent placed in the second week of August 2021 at the [facility]. Imaging done here showed stent in the dilated common bile duct which seems to have extended into the right hepatic duct. She was admitted and managed for malpositioned biliary stent. It was recommended that she should be transferred to [facility] for further evaluation. She was admitted to the medical floor pending having a bed at [facility]. She got a bed at [facility] and was transferred to [facility] on 09/19/2021. Patient was seen and examined. She had no active complaints and had an uneventful night. Review of systems is otherwise negative. Labs and vitals reviewed. Home meds reviewed and reconciled. Physical Exam Const alert, oriented x3 and no apparent distress General Appearance: cooperative, comfortable and well kempt Exam Limitations: no limitations HEENT normocephalic, head/scalp atraumatic, hearing grossly normal bilaterally and moist oral mucous membranes Eyes PERRL, EOMs intact bilaterally and conjunctivae normal Neck no lymphadenopathy, supple and no JVD Resp normal respiratory effort, no retractions, no use of accessory muscles and clear to auscultation bilaterally Cardio regular rate, regular rhythm, S1 normal heart sound, S2 normal heart sound and no murmurs GI normal to inspection, nondistended, normoactive bowel sounds, soft to palpation, non-tender and non-distended Extremity normal to inspection, full ROM and no clubbing, cyanosis or edema Skin no rashes or lesions noted Neuro oriented x3, CN's II-XII intact bilaterally and moves all extremities Sensorium / Orientation: awake and alert Psych affect normal Weight / BMI Weight Weight: 138 lb 10.732 oz Body Mass Index (BMI) 25.4 ABG / Lab / Microbiology Data Result Diagrams: 09/19/21 05:44 09/19/21 05:44 D/C Instructions Discharge Diet: Low fat / Low cholesterol Discharge Activity: Return to Normal Activity Meaningful Use Info Meaningful Use Diagnoses (Choose all that apply): None applicable Discharge Plan Admission Admit Date/Time: 09/17/21 22:12 Primary Reason for Your Visit: abdominal pain, malpositioned biliary stent Attending Provider: Carolann Naranjo Primary Care Provider: Daisha Ramirez Consulting Providers: Russ Rooney ; David Mcguire Instructions Patient Instructions: Abdominal Pain Discharge Orders/Prescriptions Prescriptions: Continued nitroglycerin 0.4 mg tablet, sublingual 0.4 mg SUBLINGUAL Q5M PRN (Reason: Chest Pain) Qty: 25 RF: 1 levocetirizine [Xyzal] 5 mg tablet 5 mg PO DAILY RF: 0 pantoprazole 40 MG tablet 40 mg PO DAILY RF: 0 ezetimibe 10 MG tablet 10 mg PO QHS RF: 0 niacin (inositol niacinate) 500 MG capsule 1,000 mg PO BID RF: 0 furosemide [Lasix] 20 mg Tablet 10 mg PO DAILY PRN (Reason: Edema) RF: 0 clopidogrel 75 mg tablet 75 mg PO DAILY RF: 0 Hold Instructions: Hold until appointment with Dr. Montague. acetaminophen 325 mg Capsule 650 mg PO Q4H PRN (Reason: PAIN/FEVER) RF: 0 metoprolol tartrate 100 mg tablet 75 mg PO BID RF: 0 Referrals / Follow Up: Daisha Ramirez DO [Primary Care Provider] - Within 2 Weeks Disposition Disposition (needs filled in before D/C Order can be placed): Acute Care Hospital Charges/Coding Visit Charges Inpatient E&M: 15566 Disch Hosp
== END 2021-09-19 19:45 | disposition short-term general hospital (02) ==
LOC: ED 22:26 → MS3 22:45
PROVIDERS: Nurse Practitioner; Admitting Provider Hospitalist; Emergency Provider Student in an Organized Health Care Education/Training Program; PCP Internal Medicine; Visit Provider Student in an Organized Health Care Education/Training Program
DX: T85.520A Displacement of bile duct prosthesis, initial encounter (principal); E11.22 Type 2 diabetes mellitus with diabetic chronic kidney disease; I48.0 Paroxysmal atrial fibrillation; I24.1 Dressler's syndrome; K80.71 Calculus of gallbladder and bile duct without cholecystitis with obstruction; E78.00 Pure hypercholesterolemia, unspecified; I25.10 Atherosclerotic heart disease of native coronary artery without angina pectoris; I12.9 Hypertensive chronic kidney disease with stage 1 through stage 4 chronic kidney disease, or unspecified chronic kidney disease; R11.0 Nausea; K83.8 Other specified diseases of biliary tract; D50.0 Iron deficiency anemia secondary to blood loss (chronic); Z79.02 Long term (current) use of antithrombotics/antiplatelets; Z87.891 Personal history of nicotine dependence; Z79.899 Other long term (current) drug therapy; Z95.1 Presence of aortocoronary bypass graft; K21.9 Gastro-esophageal reflux disease without esophagitis; M19.90 Unspecified osteoarthritis, unspecified site; G47.33 Obstructive sleep apnea (adult) (pediatric); Z86.73 Personal history of transient ischemic attack (TIA), and cerebral infarction without residual deficits; N18.2 Chronic kidney disease, stage 2 (mild); Y73.2 Prosthetic and other implants, materials and accessory gastroenterology and urology devices associated with adverse incidents
CPT/HCPCS: 36415; 76705; 80048; 80053; 80076; 82150; 83690; 85025; 93005; 96361; 96374; 96375; 99218; 99285; J7030; A4216; G0378; J2405

== ENCOUNTER 2021-09-26 17:11 | Emergency (ER) | payer MEDICARE, SELFPAY ==
[2021-09-26 17:11] VITALS: BP 173/62; PULSE 74; RESP 18; TEMP 36.7; O2SAT 98; BMI 25.9
--- NOTE | 2021-09-26 17:19 | EDS_ITS ---
HPI History of Present Illness Chief Complaint: Abd Pain Narrative Narrative: Presents with right upper quadrant pain that started today. She does have a history of gallstones and biliary colic, she has a biliary stent, apparently she has too many comorbidities and prior infection to have a cholecystectomy at this time. She was transferred to [facility] with similar complaints last time, the ultrasound read that there may be migration of the stent. It was found that the stent was actually correctly placed. She he does have intermittent pains at home. She is denying fever or chills. She tells me she ate eggs and ham and cheese this morning. [facility] Medical History Acute blood loss anemia Anemia Atherosclerotic heart disease of [place] coronary artery without angina pectoris Atypical chest pain Bilateral carotid artery stenosis Bilateral carotid bruits Biliary colic CAD (coronary artery disease) Carotid stenosis Cholelithiasis Jayson's syndrome Effusion, left knee Essential hypertension Former smoker Gallstones Gastrointestinal bleeding, upper GERD (gastroesophageal reflux disease) GI bleed History of left heart catheterization (LHC) (~07/14/20) HTN (hypertension) Hypertension Iron deficiency anemia due to chronic blood loss Near syncope Nonrheumatic aortic (valve) stenosis [place] (obstructive sleep apnea) Osteoarthritis Paroxysmal atrial fibrillation PND (post-nasal drip) Psoriasis Pure hypercholesterolemia Sleep disorder Sleep disorder breathing SOB (shortness of breath) on exertion TIA (transient ischemic attack) TIA (transient ischemic attack) Tobacco abuse Type 2 diabetes mellitus UGIB (upper gastrointestinal bleed) Home Medications ezetimibe 10 mg PO QHS 09/01/13 [History Last Taken 08/25/21] pantoprazole 40 mg PO DAILY 09/01/13 [History Last Taken 08/27/21] nitroglycerin 0.4 mg sublingual tablet 0.4 mg SUBLINGUAL Q5M PRN #25 tab 10/05/18 [Rx Last Taken 04/12/19] niacin (inositol niacinate) 1,000 mg PO BID 04/12/19 [History Last Taken 08/27/21] furosemide [Lasix] 10 mg PO DAILY PRN 12/15/20 [History Last Taken 08/27/21] clopidogrel 75 mg PO DAILY 04/18/21 [History Last Taken 08/27/21] levocetirizine 5 mg tablet 5 mg PO DAILY 07/15/21 [History Last Taken 08/26/21] acetaminophen 650 mg PO Q4H PRN 09/17/21 [History Last Taken Unknown] metoprolol tartrate 75 mg PO BID 09/17/21 [History Last Taken Unknown] cholecalciferol (vitamin D3) [Vitamin D3] 125 mcg PO DAILY 09/26/21 [History Last Taken Unknown] iron,carbonyl-vitamin C [Vitron-C] 1 tab PO BID 09/26/21 [History Last Taken Unknown] moxifloxacin 400 mg PO DAILY 09/26/21 [History Last Taken Unknown] oxycodone-acetaminophen [Percocet] 1 tab PO Q6H PRN 3 Days #12 tab 09/26/21 [Rx Last Taken Unknown] Allergy/AdvReac Type Severity Reaction Status Date / Time Sulfa (Sulfonamide Allergy Severe HEART Verified 09/26/21 17:15 Antibiotics) RACING Latex, Natural Rubber Allergy Rash, Verified 09/26/21 17:15 psioriasis amoxicillin [From Augmentin] AdvReac Nausea Verified 09/26/21 17:15 atorvastatin [From Lipitor] AdvReac Other Verified 09/26/21 17:15 clavulanic acid AdvReac Nausea Verified 09/26/21 17:15 [From Augmentin] Iodinated Contrast Media AdvReac Other Verified 09/26/21 17:15 [CONTRASTS] lisinopril AdvReac Other Verified 09/26/21 17:15 niacin AdvReac Other Verified 09/26/21 17:15 [From Niaspan Extended-Release] red dye AdvReac NEEDS Verified 09/26/21 17:15 FOLLOW-UP rosuvastatin [From Crestor] AdvReac Other Verified 09/26/21 17:15 turkey grease AdvReac Rash Uncoded 09/26/21 17:15 Family History Mother Heart disease Diabetes Father Heart disease Cancer Sister Cancer COPD (chronic obstructive pulmonary disease) Surgical History History of aortic valve replacement with bioprosthetic valve (~09/06/13) History of bilateral carotid endarterectomy History of coronary artery bypass surgery (~09/06/13) History of left mastectomy (~1998) History of right mastectomy (~1998) History of tubal ligation Social History household members: none housing: house Smoking Status: Former smoker how long ago did patient quit smokin second hand exposure: No alcohol intake: never substance use type: does not use caffeine: Yes Type: coffee Number of servings: 2 and tea what type of physical activity do you participate in: none franci/islam: Anabaptist seatbelt use: always do you feel safe at home: Yes ROS ROS ED ROS Narrative Past medical history: Reviewed, significant for coronary artery disease, aortic stenosis, biliary colic as above, type 2 diabetes, hypertension, history of GERD, [place] Jayson syndrome and other Medications: Reviewed in the medical record Social history: Noncontributory Review of systems: All systems negative except as indicated General: No fever Eyes: No visual changes ENT: No upper airway congestion, normal voice Neck: No neck pain Cardiovascular: No chest pain Respiratory: No shortness of breath or cough Gastrointestinal: As in HPI Genitourinary: No dysuria Musculoskeletal: Denies myalgias no difficulty with ambulation Skin: No rash Neurological: No memory loss, confusion or any focal weakness Psych: No recent behavioral changes Hematologic: No easy bleeding or easy bruising EXAM Physical Exam Narrative Exam Narrative: Physical exam General: Patient appears somewhat uncomfortable but she does not appear ill. Head: Normocephalic, Atraumatic Eyes: Conjunctiva not pale ENT: Moist mucous membranes. No signs of dehydration Neck: Supple, Nontender, No lymphadenopathy Cardiovascular: Regular rate, Regular rhythm. 3 out of 6 holosystolic murmur. Respiratory: No distress, CTA bilaterally Abdomen: Soft, right upper quadrant abdominal tenderness. She has a negative Smith's. She has no guarding or rebound. She has no lower abdominal pain. Relatively benign abdominal exam. Back: Nontender, Normal Inspection. Negative for: CVA tenderness Extremities: Nontender, No edema Skin: Normal color, No rash Neurological: Alert, Normal Strength, Normal Sensation Psychological: Slightly anxious but appropriate. Const Vital Signs: 09/26/21 17:11 09/26/21 18:38 09/26/21 19:27 Temperature 98.0 F Temperature Source Temporal Pulse Rate 74 74 70 Respiratory Rate 18 17 Blood Pressure 173/62 H 169/56 H 160/55 H Blood Pressure Mean 99 90 Pulse Ox 98 95 Oxygen Delivery Method Room Air Room Air MDM MDM MDM Narrative Medical decision making narrative: Patient's work-up is unremarkable, her ultrasound is unchanged from last week. Her pain improved. I will discharge her with analgesia for home. Of note she did require some nitroglycerin this was for her chronic aortic stenosis which she takes at home constantly. Lab Data Labs: Laboratory Results - last 24 hr 09/26/21 09/26/21 17:35 17:35 WBC 7.6 RBC 3.34 L Hgb 8.8 L Hct 29.4 L MCV 88.0 MCH 26.3 L MCHC 29.9 L RDW Std Deviation 52.2 H RDW Coeff of Velasquez 16.1 H Plt Count 294 MPV 10.1 Immature Gran % (Auto) 0.400 Neut % (Auto) 77.4 H Lymph % (Auto) 12.4 L [place] % (Auto) 8.1 Eos % (Auto) 1.3 Baso % (Auto) 0.4 Absolute Neuts (auto) 5.9 Absolute Lymphs (auto) 0.94 Nucleated RBC % 0 Sodium 142 Potassium 3.9 Chloride 108 H Carbon Dioxide 27.0 Anion Gap 7 BUN 14 Creatinine 1.21 H Estim Creat Clear Calc 28.84 Est GFR (MDRD) Af Amer 55 L Est GFR (MDRD) Non-Af 45 L BUN/Creatinine Ratio 11.6 Glucose 124 H Calcium 8.4 L Total Bilirubin 0.50 Direct Bilirubin 0.12 AST 32 ALT 16 Alkaline Phosphatase 53 Total Protein 6.6 Albumin 3.3 Globulin 3.3 Lipase 133 Radiography Diagnostic Testing: Clinical Impression(s) from Imaging Studies Gallbladder Ultrasound 09/26/21 17:20 IMPRESSION: No significant change compared to prior exam showing cholelithiasis and common bile duct stent. There does appear to be small amount of fluid around the gallbladder without gallbladder wall thickening and negative sonographic Smith''s sign. Mild pneumobilia secondary to stent. Electronically Signed: Donnie Childress DO at 20:21 EDT , Discharge Plan Triage Chief Complaint: Abd Pain ED Provider: Fredi Andrade Dx/Rx/DC Orders Clinical Impression: Disease of gallbladder, Aortic stenosis Instructions: Anatomy of the Digestive System Prescriptions: New oxycodone-acetaminophen [Percocet] 5-325 mg tablet 1 tab PO Q6H PRN (Reason: pain) 3 Days Qty: 12 RF: 0 No Action nitroglycerin 0.4 mg tablet, sublingual 0.4 mg SUBLINGUAL Q5M PRN (Reason: Chest Pain) Qty: 25 RF: 1 levocetirizine [Xyzal] 5 mg tablet 5 mg PO DAILY RF: 0 pantoprazole 40 MG tablet 40 mg PO DAILY RF: 0 ezetimibe 10 MG tablet 10 mg PO QHS RF: 0 niacin (inositol niacinate) 500 MG capsule 1,000 mg PO BID RF: 0 furosemide [Lasix] 20 mg Tablet 10 mg PO DAILY PRN (Reason: Edema) RF: 0 clopidogrel 75 mg tablet 75 mg PO DAILY RF: 0 Hold Instructions: Hold until appointment with Dr. Montague. acetaminophen 325 mg Capsule 650 mg PO Q4H PRN (Reason: PAIN/FEVER) RF: 0 metoprolol tartrate 100 mg tablet 75 mg PO BID RF: 0 moxifloxacin 400 mg tablet 400 mg PO DAILY RF: 0 cholecalciferol (vitamin D3) [Vitamin D3] 125 mcg (5,000 unit) Tablet 125 mcg PO DAILY RF: 0 Vitron-C 65 mg iron- 125 mg Tablet,Delayed Release (Dr/Ec) 1 tab PO BID RF: 0 Primary Care Provider: Daisha Ramirez Referrals: Daisha Ramirez DO [Primary Care Provider] - 2 Days Disposition Disposition: Home, Self Care
--- NOTE | 2021-09-26 17:20 | US_ITS ---
STUDY: ABDOMINAL ULTRASOUND - RIGHT UPPER QUADRANT REASON FOR VISIT: Female, 81 years old CONTINUED RUQ PAIN AFTER CBD STENT PLACEMENT TECHNIQUE: Ultrasound evaluation of the right upper quadrant was performed with real-time and static odonnell-scale imaging. TECHNICAL QUALITY: Adequate. COMPARISON: Right upper quadrant ultrasound 09/17/2021. FINDINGS: Liver: The liver measures 15.7 cm. There is normal echogenicity of the liver. The bile ducts are within normal limits. There is hepatic color flow. There is no demonstrated mass lesion. Joanne hepatis region foci of echogenicity likely representing pneumobilia. Gallbladder: Mildly distended gallbladder measuring 11.8 cm in length. This is not significantly changed in appearance compared to prior exam. The gallbladder wall measures 3 mm. There is a negative sonographic Smith''s sign. There does appear to be a small amount of pericholecystic fluid. This is unchanged in appearance compared to prior exam. Layering gallstones are seen in the gallbladder fundus. Common Bile Duct (C.B.D.): Contains a shadowing stent. Dilated common bile duct measuring 9 mm. Pancreas: 3 mm diameter pancreatic duct within the pancreatic head, upper limit of normal size. Otherwise normal appearance of pancreas. No demonstrated. No peripancreatic fluid. Right Kidney: 9 cm length. Normal contour and echogenicity. Normal hepatic color flow. No hydronephrosis or stone. No perinephric fluid. US/Gallbladder IMPRESSION: No significant change compared to prior exam showing cholelithiasis and common bile duct stent. There does appear to be small amount of fluid around the gallbladder without gallbladder wall thickening and negative sonographic Smith''s sign. Mild pneumobilia secondary to stent. Electronically Signed: Donnie Childress DO at 20:21 EDT ,
[2021-09-26] MEDS: Ondansetron 4 MG/2 ML Vial IV ×2 (17:36→20:40)
[2021-09-26] MEDS: Morphine 4 MG/ML Syringe IV ×2 (17:37→20:40)
[2021-09-26 17:45] LABS: Absolute Lymphocyte Count 0.94 X10^3/uL (0.83-4.51); Absolute Neutrophil Count 5.9 X10^3/uL (2.0-7.7); Basophil# 0.03 X10^3/uL; Basophil% 0.4 % (0-1); Eosinophils% 1.3 % (0-5); Hematocrit 29.4 % (37-47); Hemoglobin 8.8 g/dL (12.0-15.0); Lymphocyte # 0.94 X10^3/ul (0.83-4.51); Lymphocyte % 12.4 % (19-41); Mean Corp Hgb Conc 29.9 g/dL (32-36); Mean Corpuscular Hgb 26.3 pg (27.0-32.0); Mean Platelet Vol. 10.1 fl (6.2-12.0); Monocyte# 0.61 X10^3/uL; Monocyte% 8.1 % (0-10); NRBC Flagged by Analyzer 0 % (0-5); Neutrophil # 5.85 X10^3/uL (2.7-7.7); Neutrophil % 77.4 % (47-70); Platelet Count 294 K/mm3 (150-450); RBC Distribution Width CV 16.1 % (11.6-14.6); RBC Distribution Width SD 52.2 fl (35.1-43.9); Red Blood Count 3.34 M/mm3 (4.2-5.4); White Blood Count 7.6 K/mm3 (4.4-11.0)
--- NOTE | 2021-09-26 17:52 | NURSING ---
PTS O2 SATURATION DECREASES TO 88% ON ROOM AIR- NO DISTRESS NOTED. THIS RN PLACES 2L NC O2 AT THIS TIME. PT O2 SATS INCREASE TO 99%. PT TOLERATES WELL. DENIES FURTHER NEEDS AT THIS TIME.
[2021-09-26 18:10] LABS: BUN 14 mg/dL (7-18); Creatinine, Serum 1.21 mg/dL (0.55-1.02); Estimated Creatinine Clearance 28.84 ml/min; Glucose 124 mg/dL (74-106)
[2021-09-26 18:11] LABS: AST(SGOT) 32 U/L (15-37); Alanine Aminotransfer ALT/SGPT 16 U/L (13-56); Albumin, Serum 3.3 g/dL (3.2-5.0); Alkaline Phosphatase 53 U/L (45-117); Anion Gap 7 (5-15); BUN/Creat Ratio 11.6 RATIO (10-20); Bilirubin, Direct 0.12 mg/dL (0.00-0.30); Calcium,Total 8.4 mg/dL (8.5-10.1); Chloride 108 mmol/L (98-107); EST Glomerular Filtration Rate 45 mL/min (>60); Est Glom Filt Rate - Afr Amer 55 mL/min (>60); Globulin 3.3 g/dL (2.2-4.2); Lipase 133 U/L (73-393); Potassium 3.9 mmol/L (3.5-5.1); Protein, Total 6.6 g/dL (6.4-8.2); Sodium Level 142 mmol/L (136-145)
--- NOTE | 2021-09-26 18:32 | EKG12_ITS ---
Test Reason : CP Blood Pressure : / mmHG Vent. Rate : 076 BPM Atrial Rate : 076 BPM P-R Int : 166 ms QRS Dur : 116 ms QT Int : 410 ms P-R-T Axes : 059 -19 167 degrees QTc Int : 461 ms Normal sinus rhythm Septal infarct , age undetermined Marked ST abnormality, possible inferior subendocardial injury Abnormal ECG Confirmed by FAYE DELGADILLO, KAREN ([id number]), publication editor CHRISTIN BARTHOLOMEW ([id number]) on 09/28/2021 12:44:56 PM Referred By: LEO Confirmed By:KAREN MCKINNEY MD
[2021-09-26 18:38] VITALS: BP 169/56; PULSE 74
[2021-09-26] MEDS: Nitroglycerin SL (ED/IMG/CATH) 0.4 MG TABLET SL (18:38)
--- NOTE | 2021-09-26 18:40 | NURSING ---
PTS ERICA HO CALLED IN FOR UPDATE. OK TO GIVE INFO PER PT. PLEASE CALL WITH ANY UPDATES [phone]
[2021-09-26 19:27] VITALS: BP 160/55; PULSE 70; RESP 17; O2SAT 95
[2021-09-26 20:41] VITALS: BP 164/74; PULSE 74; RESP 18; O2SAT 99
== END 2021-09-26 21:02 | disposition home or self-care (01) ==
PROVIDERS: Emergency Provider Emergency Medicine; PCP Internal Medicine; Visit Provider Emergency Medicine
DX: K82.9 Disease of gallbladder, unspecified (principal); I48.0 Paroxysmal atrial fibrillation; I24.1 Dressler's syndrome; E11.9 Type 2 diabetes mellitus without complications; I35.0 Nonrheumatic aortic (valve) stenosis; E78.00 Pure hypercholesterolemia, unspecified; I25.10 Atherosclerotic heart disease of native coronary artery without angina pectoris; I10 Essential (primary) hypertension; Z87.891 Personal history of nicotine dependence; Z87.19 Personal history of other diseases of the digestive system; Z90.49 Acquired absence of other specified parts of digestive tract; K21.9 Gastro-esophageal reflux disease without esophagitis; G47.33 Obstructive sleep apnea (adult) (pediatric); Z86.73 Personal history of transient ischemic attack (TIA), and cerebral infarction without residual deficits; L40.9 Psoriasis, unspecified; Z79.899 Other long term (current) drug therapy; Z79.02 Long term (current) use of antithrombotics/antiplatelets; D50.0 Iron deficiency anemia secondary to blood loss (chronic); I65.23 Occlusion and stenosis of bilateral carotid arteries; Z95.1 Presence of aortocoronary bypass graft; Z95.2 Presence of prosthetic heart valve
CPT/HCPCS: 76705; 80048; 80076; 83690; 85025; 93005; 96361; 96374; 96375; 96376; 99285; J7040; A4216; J2405

== ENCOUNTER 2021-11-07 11:27 | Inpatient (IN) | payer MEDICARE, SELFPAY ==
[2021-11-07] VITALS (16 sets, daily range): BP systolic 102–164; BP diastolic 47–75; PULSE 66–105; RESP 16–20; TEMP 35.9–37.1; O2SAT 93–98; BMI 25.6; BMI 24.7
--- NOTE | 2021-11-07 11:59 | US_ITS ---
STUDY: ABDOMINAL ULTRASOUND - RIGHT UPPER QUADRANT REASON FOR VISIT: Female, 81 years old PAIN TECHNIQUE: Ultrasound evaluation of the right upper quadrant was performed with real-time and static odonnell-scale imaging. TECHNICAL QUALITY: Adequate. COMPARISON: None. FINDINGS: Liver: The liver measures 14.6 cm. There is normal echogenicity of the liver. The bile ducts are within normal limits. There is hepatic color flow. The direction of portal flow is hepatopetal. There is no demonstrated mass lesion. Gallbladder: Normal distended gallbladder. The gallbladder wall measures 3 mm. There is a negative sonographic Smith''s sign. There is no pericholecystic fluid. Layering, shadowing echogenic debris likely representing sludge and stones seen in the dependent fundus. Common Bile Duct (C.B.D.): The common bile duct measures 10 mm. There is a stent within the dilated common bile duct. Pancreas: Normal size and echogenicity with no dilated duct, evidence of mass lesion or inflammatory changes. Right Kidney: 9.4 cm length kidney shows no cortical thinning, hydronephrosis or solid or cystic mass lesion. Normal color flow in the right renal hilum. US/Gallbladder IMPRESSION: Distended common bile duct with stent. Cholelithiasis without cholecystitis. Electronically Signed: Donnie Childress DO at 14:16 EDT ,
--- NOTE | 2021-11-07 12:05 | EKG12_ITS ---
Test Reason : DISEASED GALLBLADER Blood Pressure : / mmHG Vent. Rate : 081 BPM Atrial Rate : 081 BPM P-R Int : 162 ms QRS Dur : 146 ms QT Int : 432 ms P-R-T Axes : 067 -20 114 degrees QTc Int : 501 ms Normal sinus rhythm Left bundle branch block Abnormal ECG Confirmed by FAYE DELGADILLO, KAREN ([id number]), tape editor EN HERNANDEZ ([id number]) on 11/09/2021 11:06:22 AM Referred By: ALANA Confirmed By:KAREN MCKINNEY MD
--- NOTE | 2021-11-07 12:05 | ED.VIS.GI ---
HPI HPI - GI History of Present Illness Chief Complaint: Abd Pain Narrative Narrative: This is an 81-year-old female with known symptomatic cholelithiasis presenting with right upper quadrant pain. She states she had a similar bout of this in October and was sent to [facility] where she had her stent assessed. When she was here and looked as if her stent was malpositioned and that is why she was transferred. She states that nobody did any procedures. She states that nobody will take out her gallbladder or do any surgery until she has her heart fixed and she states she has aortic stenosis which is supposed to be repaired in November. Patient reports he is only allowed to take Tylenol. She states she is not allowed to take any narcotics apparently because she is awaiting heart surgery. Patient has not had any fever, chills. She has associated nausea and vomiting. [facility] Medical History (Updated 11/07/21 @ 17:[address] Ari Madrid MD) Acute blood loss anemia Anemia Atherosclerotic heart disease of [place] coronary artery without angina pectoris Atypical chest pain Bilateral carotid artery stenosis Bilateral carotid bruits Biliary colic CAD (coronary artery disease) Carotid stenosis Cholelithiasis Jayson's syndrome Effusion, left knee Essential hypertension Former smoker Gallstones Gastrointestinal bleeding, upper GERD (gastroesophageal reflux disease) GI bleed History of left heart catheterization (LHC) (~07/14/20) HTN (hypertension) Hypertension Iron deficiency anemia due to chronic blood loss Near syncope Nonrheumatic aortic (valve) stenosis [place] (obstructive sleep apnea) Osteoarthritis Paroxysmal atrial fibrillation PND (post-nasal drip) Psoriasis Pure hypercholesterolemia Sleep disorder Sleep disorder breathing SOB (shortness of breath) on exertion TIA (transient ischemic attack) TIA (transient ischemic attack) Tobacco abuse Type 2 diabetes mellitus UGIB (upper gastrointestinal bleed) Home Medications ezetimibe 10 mg tablet 10 mg PO QHS cholesterol 09/01/13 [History Last Taken 08/25/21] pantoprazole 40 mg tablet,delayed release 40 mg PO DAILY gerd 09/01/13 [History Last Taken 08/27/21] nitroglycerin 0.4 mg sublingual tablet 0.4 mg sublingual Q5M PRN Chest Pain #25 tabs 10/05/18 [Rx Last Taken 04/12/19] niacin (inositol niacinate) 500 mg capsule 1,000 mg PO BID supplement 04/12/19 [History Last Taken 08/27/21] furosemide 20 mg tablet (Lasix) 10 mg PO DAILY PRN Edema 12/15/20 [History Last Taken 08/27/21] clopidogrel 75 mg tablet 75 mg PO DAILY blood thinner 04/18/21 [History Last Taken 08/27/21] levocetirizine 5 mg tablet (Xyzal) 5 mg PO DAILY 07/15/21 [History Last Taken 08/26/21] acetaminophen 325 mg capsule 650 mg PO Q4H PRN PAIN/FEVER 09/17/21 [History Last Taken Unknown] metoprolol tartrate 100 mg tablet 75 mg PO BID BP 09/17/21 [History Last Taken Unknown] cholecalciferol (vitamin D3) 125 mcg (5,000 unit) tablet (Vitamin D3) 125 mcg PO DAILY 09/26/21 [History Last Taken Unknown] iron,carbonyl 65 mg-vitamin C 125 mg tablet,delayed release (Vitron-C) 1 tab PO BID 09/26/21 [History Last Taken Unknown] moxifloxacin 400 mg tablet 400 mg PO DAILY 09/26/21 [History Last Taken Unknown] oxycodone-acetaminophen 5 mg-325 mg tablet (Percocet) 1 tab PO Q6H PRN pain 3 days #12 tabs 09/26/21 [Rx Last Taken Unknown] Allergy/AdvReac Type Severity Reaction Status Date / Time Sulfa (Sulfonamide Allergy Severe HEART Verified 11/07/21 11:30 Antibiotics) RACING Latex, Natural Rubber Allergy Rash, Verified 11/07/21 11:30 psioriasis amoxicillin [From Augmentin] AdvReac Nausea Verified 11/07/21 11:30 atorvastatin [From Lipitor] AdvReac Other Verified 11/07/21 11:30 clavulanic acid AdvReac Nausea Verified 11/07/21 11:30 [From Augmentin] Iodinated Contrast Media AdvReac Other Verified 11/07/21 11:30 [CONTRASTS] lisinopril AdvReac Other Verified 11/07/21 11:30 niacin AdvReac Other Verified 11/07/21 11:30 [From Niaspan Extended-Release] red dye AdvReac NEEDS Verified 11/07/21 11:30 FOLLOW-UP rosuvastatin [From Crestor] AdvReac Other Verified 11/07/21 11:30 turkey grease AdvReac Rash Uncoded 11/07/21 11:30 Family History Mother Heart disease Diabetes Father Heart disease Cancer Sister Cancer COPD (chronic obstructive pulmonary disease) Surgical History History of aortic valve replacement with bioprosthetic valve (~09/06/13) History of bilateral carotid endarterectomy History of coronary artery bypass surgery (~09/06/13) History of left mastectomy (~1998) History of right mastectomy (~1998) History of tubal ligation Social History household members: none housing: house Smoking Status: Former smoker how long ago did patient quit smokin second hand exposure: No alcohol intake: never substance use type: does not use caffeine: Yes Type: coffee Number of servings: 2 and tea what type of physical activity do you participate in: none franci/baptism: Moravian seatbelt use: always do you feel safe at home: Yes ROS ROS ED Constitutional Constitutional ED: Denies chills or fever(s) ENT ENT ED: Denies rhinorrhea or sore throat Cardiovascular Cardiovascular: Denies palpitations or racing heartbeat Respiratory/Chest Respiratory/Chest: Denies cough or dyspnea Gastrointestinal Gastrointestinal: Reports abdominal pain, nausea and vomiting Genitourinary Genitourinary ED: Denies dysuria or hematuria Musculoskeletal Musculoskeletal: Denies arthralgias or myalgias Integumentary Denies abscess Neurologic Neurologic: Denies headache(s) or paresthesias Psychiatric Psychiatric: Denies anxiety or depression EXAM Physical Exam Const Vital Signs: 11/07/21 11:28 11/07/21 14:01 11/07/21 16:03 Temperature 98.8 F 97.8 F Temperature Source Temporal Temporal Pulse Rate 105 H 73 83 Respiratory Rate 16 16 16 Blood Pressure 164/67 H 135/47 H 138/52 H Blood Pressure Mean 99 76 80 Blood Pressure Source Monitor Blood Pressure Position Semi-Fowlers Blood Pressure Location Left Forearm Pulse Ox 95 95 97 Oxygen Delivery Method Room Air Room Air Room Air 11/07/21 16:10 11/07/21 16:25 Temperature 98.0 F 98.0 F Temperature Source Oral Oral Pulse Rate 78 78 Respiratory Rate 18 18 Blood Pressure 143/55 H 140/55 H Blood Pressure Mean 84 83 Blood Pressure Source Monitor Monitor Blood Pressure Position Semi-Fowlers Semi-Fowlers Blood Pressure Location Left Forearm Left Forearm Pulse Ox 96 96 Oxygen Delivery Method Room Air Room Air Positive well nourished Constitutional Narrative: Appears to be in pain General Appearance ED: NAD; Negative for pallor HEENT Reports moist mucous membranes Eyes PERRL and EOMs intact bilaterally General Eye ED: Negative for pale conjunctiva or scleral icterus Resp normal respiratory effort Auscultation: Negative for rales, rhonchi or wheezes Cardio regular rate Rate: tachycardic GI Palpation: tender RUQ and Smith's sign Back/Spine no CVA tenderness Neuro CN's II-XII intact bilaterally and moves all extremities Sensorium / Orientation: alert Motor Exam: strength 5/5 throughout Skin General Skin Exam: Negative for jaundice or pallor MDM MDM MDM Narrative Medical decision making narrative: Patient presenting with right upper quadrant pain. She attributes this to her cholelithiasis. She has been symptomatic of this for a long time. She is status post stenting for her common bile duct. She states nobody will remove her gallbladder because she needs to have her aortic stenosis repaired for second time. Patient given morphine and Zofran as well as IV fluids. Blood work obtained shows no leukocytosis. Hemoglobin is decreased to 5.9. This is likely due to GI bleed as the patient has had these in the past. Creatinine slightly elevated at 1.16. Electrolytes are normal. LFTs within normal limits. Lipase normal. EKG is sinus rhythm with a ventricular rate of 81 bpm on my interpretation and there is no significant interval change from her previous EKG September 26, 2021. Initially I spoke with [facility] as that was where her care previously was at for her gallbladder. They state that they do not have any beds available currently and she will be on a waiting list. Discussed with GI who is amenable to keep the patient here. Second troponin came up to 88. Discussed with cardiology who stated this is likely due to her aortic stenosis and her anemia and this is likely not cardiac as the patient has no history of CAD. Recommendation was to admit the patient for blood transfusion. This was discussed with GI and they were again amenable to the patient being admitted here and amenable to consult. Patient was typed, screened, crossmatched for 2 units. Patient was discussed with hospitalist, and transported to the floor in stable condition. Impression: 1. History of cholelithiasis 2. GI bleed 3. Acute blood loss anemia 4. Elevated troponin Lab Data Attestation: I reviewed the patient's lab results. Labs: Laboratory Results - last 24 hr 11/07/21 11/07/21 11/07/21 11:40 11:40 12:20 WBC 8.3 RBC 2.56 L Hgb 5.9 L* Hct 21.2 L MCV 82.8 MCH 23.0 L MCHC 27.8 L RDW Std Deviation 51.2 H RDW Coeff of Velasquez 17.1 H Plt Count 347 MPV 10.0 Immature Gran % (Auto) 0.500 Neut % (Auto) 79.1 H Lymph % (Auto) 11.3 L Hughes % (Auto) 6.7 Eos % (Auto) 1.9 Baso % (Auto) 0.5 Absolute Neuts (auto) 6.6 Absolute Lymphs (auto) 0.94 Nucleated RBC % 0.4 [address] Review May foll Hypochromasia 1+ Sodium 139 Potassium 3.9 Chloride 107 Carbon Dioxide 24.0 Anion Gap 8 BUN 20 H Creatinine 1.16 H Estim Creat Clear Calc 30.08 Est GFR (MDRD) Af Amer 58 L Est GFR (MDRD) Non-Af 48 L BUN/Creatinine Ratio 17.2 Glucose 138 H Calcium 9.1 Total Bilirubin 0.90 AST 18 ALT 13 Alkaline Phosphatase 53 Troponin I High Sens 51 Total Protein 7.0 Albumin 3.6 Globulin 3.4 Albumin/Globulin Ratio 1.1 Lipase 98 Blood Type A POSITIVE Antibody Screen Not Reportable Antibody Identification Crossmatch See Detail 11/07/21 11/07/21 12:20 15:27 WBC RBC Hgb Hct MCV MCH MCHC RDW Std Deviation RDW Coeff of Velasquez Plt Count MPV Immature Gran % (Auto) Neut % (Auto) Lymph % (Auto) Hughes % (Auto) Eos % (Auto) Baso % (Auto) Absolute Neuts (auto) Absolute Lymphs (auto) Nucleated RBC % Diff Path Review Hypochromasia Sodium Potassium Chloride Carbon Dioxide Anion Gap BUN Creatinine Estim Creat Clear Calc Est GFR (MDRD) Af Amer Est GFR (MDRD) Non-Af BUN/Creatinine Ratio Glucose Calcium Total Bilirubin AST ALT Alkaline Phosphatase Troponin I High Sens 88 H Total Protein Albumin Globulin Albumin/Globulin Ratio Lipase Blood Type Antibody Screen NEGATIVE Antibody Identification NEGATIVE ANTIBODY PANEL Crossmatch Radiography Diagnostic Testing: Clinical Impression(s) from Imaging Studies Gallbladder Ultrasound 11/07/21 11:59 IMPRESSION: Distended common bile duct with stent. Cholelithiasis without cholecystitis. Electronically Signed: Donnie Childress DO at 14:16 EDT , Discharge Plan Triage Chief Complaint: Abd Pain ED Provider: Kendrick Donnelly Dx/Rx/DC Orders Prescriptions: No Action nitroglycerin 0.4 mg tablet, sublingual 0.4 mg SUBLINGUAL Q5M PRN (Reason: Chest Pain) Qty: 25 1RF levocetirizine [Xyzal] 5 mg tablet 5 mg PO DAILY pantoprazole 40 MG tablet 40 mg PO DAILY Label Comments: stomach acid ezetimibe 10 MG tablet 10 mg PO QHS Label Comments: cholesterol niacin (inositol niacinate) 500 MG capsule 1,000 mg PO BID furosemide [Lasix] 20 mg Tablet 10 mg PO DAILY PRN (Reason: Edema) clopidogrel 75 mg tablet 75 mg PO DAILY Hold Instructions: Hold until appointment with Dr. Montague. acetaminophen 325 mg Capsule 650 mg PO Q4H PRN (Reason: PAIN/FEVER) metoprolol tartrate 100 mg tablet 75 mg PO BID moxifloxacin 400 mg tablet 400 mg PO DAILY Label Comments: FOR 10 DAYS STARTING 09/23/21 cholecalciferol (vitamin D3) [Vitamin D3] 125 mcg (5,000 unit) Tablet 125 mcg PO DAILY Vitron-C 65 mg iron- 125 mg Tablet,Delayed Release (Dr/Ec) 1 tab PO BID oxycodone-acetaminophen [Percocet] 5-325 mg tablet 1 tab PO Q6H PRN (Reason: pain) 3 Days Qty: 12 0RF Primary Care Provider: Daisha Ramirez Referrals: Daisha Ramirez DO [Primary Care Provider] -
[2021-11-07 12:10] LABS: Absolute Lymphocyte Count 0.94 X10^3/uL (0.83-4.51); Absolute Neutrophil Count 6.6 X10^3/uL (2.0-7.7); Basophil# 0.04 X10^3/uL; Basophil% 0.5 % (0-1); Eosinophil# 0.16 X10^3/uL; Eosinophils% 1.9 % (0-5); Hematocrit 21.2 % (37-47); Hemoglobin 5.9 g/dL (12.0-15.0); Lymphocyte # 0.94 X10^3/ul (0.83-4.51); Lymphocyte % 11.3 % (19-41); Mean Corp Hgb Conc 27.8 g/dL (32-36); Mean Corpuscular Volume 82.8 fL (81-99); Monocyte# 0.56 X10^3/uL; Monocyte% 6.7 % (0-10); NRBC Flagged by Analyzer 0.4 % (0-5); Neutrophil # 6.59 X10^3/uL (2.7-7.7); Neutrophil % 79.1 % (47-70); POSITIVE COUNT YES; Platelet Count 347 K/mm3 (150-450); RBC Distribution Width CV 17.1 % (11.6-14.6); RBC Distribution Width SD 51.2 fl (35.1-43.9); Red Blood Count 2.56 M/mm3 (4.2-5.4); White Blood Count 8.3 K/mm3 (4.4-11.0)
[2021-11-07] MEDS: Morphine 4 MG/ML Syringe IV (12:12)
[2021-11-07] MEDS: Ondansetron 4 MG/2 ML Vial IV (12:12)
[2021-11-07 12:14] LABS: Differential Indicated SCAN CRITERIA MET
--- NOTE | 2021-11-07 12:22 | NURSING ---
call from lab, hgb 5.9, dr. gibson aware.
[2021-11-07 12:28] LABS: ALB/GLOB Ratio 1.1 RATIO (0.9-2.4); AST(SGOT) 18 U/L (15-37); Alanine Aminotransfer ALT/SGPT 13 U/L (13-56); Albumin, Serum 3.6 g/dL (3.2-5.0); Alkaline Phosphatase 53 U/L (45-117); Anion Gap 8 (5-15); BUN 20 mg/dL (7-18); BUN/Creat Ratio 17.2 RATIO (10-20); Calcium,Total 9.1 mg/dL (8.5-10.1); Chloride 107 mmol/L (98-107); Creatinine, Serum 1.16 mg/dL (0.55-1.02); EST Glomerular Filtration Rate 48 mL/min (>60); Est Glom Filt Rate - Afr Amer 58 mL/min (>60); Estimated Creatinine Clearance 30.08 ml/min; Globulin 3.4 g/dL (2.2-4.2); Glucose 138 mg/dL (74-106); Lipase 98 U/L (73-393); Potassium 3.9 mmol/L (3.5-5.1); Sodium Level 139 mmol/L (136-145); Troponin-I HS 51 pg/mL (3.0-54.0)
[2021-11-07 12:35] LABS: Hypochromasia 1+
[2021-11-07 16:02] LABS: Troponin-I HS 88 pg/mL (3.0-54.0)
--- NOTE | 2021-11-07 17:07 | HP.PCM.HOS_ITS ---
HPI - General General Date of Admission: 11/07/21 Date of Service: 11/07/21 Chief Complaint: Right upper quadrant pain HPI Narrative SAMMY SOLOMON, is a 81 F with multiple comorbidities including coronary artery disease with previous CABG, history of previous GI bleed secondary to AVM, history of chronic right upper quadrant pain with previous biliary stent who presents right upper quadrant pain. Patient has been seen in the ED almost a month prior to to her current admission transferred to the [facility] managed conservatively and discharged home with no intervention. Presented to the ED with recurrence of her right upper quadrant pain. Patient also noticed increasing fatigue with minimal exertion as well as swelling involving both lower extremities. Imaging studies obtained in the ED was essentially unchanged from previous. She was however found to be anemic with a hemoglobin of 5.9. Admitted to regular nursing floor for further management [facility] Medical History (Updated 11/07/21 @ 17:[address] Ari Madrid MD) Acute blood loss anemia Anemia Atherosclerotic heart disease of [place] coronary artery without angina pectoris Atypical chest pain Bilateral carotid artery stenosis Bilateral carotid bruits Biliary colic CAD (coronary artery disease) Carotid stenosis Cholelithiasis Jayson's syndrome Effusion, left knee Essential hypertension Former smoker Gallstones Gastrointestinal bleeding, upper GERD (gastroesophageal reflux disease) GI bleed History of left heart catheterization (LHC) (~07/14/20) HTN (hypertension) Hypertension Iron deficiency anemia due to chronic blood loss Near syncope Nonrheumatic aortic (valve) stenosis [place] (obstructive sleep apnea) Osteoarthritis Paroxysmal atrial fibrillation PND (post-nasal drip) Psoriasis Pure hypercholesterolemia Sleep disorder Sleep disorder breathing SOB (shortness of breath) on exertion TIA (transient ischemic attack) TIA (transient ischemic attack) Tobacco abuse Type 2 diabetes mellitus UGIB (upper gastrointestinal bleed) Home Medications ezetimibe 10 mg tablet 10 mg PO QHS cholesterol 09/01/13 [History Last Taken 08/25/21] pantoprazole 40 mg tablet,delayed release 40 mg PO DAILY gerd 09/01/13 [History Last Taken 08/27/21] nitroglycerin 0.4 mg sublingual tablet 0.4 mg sublingual Q5M PRN Chest Pain #25 tabs 10/05/18 [Rx Last Taken 04/12/19] niacin (inositol niacinate) 500 mg capsule 1,000 mg PO BID supplement 04/12/19 [History Last Taken 08/27/21] furosemide 20 mg tablet (Lasix) 10 mg PO DAILY PRN Edema 12/15/20 [History Last Taken 08/27/21] clopidogrel 75 mg tablet 75 mg PO DAILY blood thinner 04/18/21 [History Last Taken 08/27/21] levocetirizine 5 mg tablet (Xyzal) 5 mg PO DAILY 07/15/21 [History Last Taken 08/26/21] acetaminophen 325 mg capsule 650 mg PO Q4H PRN PAIN/FEVER 09/17/21 [History Last Taken Unknown] metoprolol tartrate 100 mg tablet 75 mg PO BID BP 09/17/21 [History Last Taken Unknown] cholecalciferol (vitamin D3) 125 mcg (5,000 unit) tablet (Vitamin D3) 125 mcg PO DAILY 09/26/21 [History Last Taken Unknown] iron,carbonyl 65 mg-vitamin C 125 mg tablet,delayed release (Vitron-C) 1 tab PO BID 09/26/21 [History Last Taken Unknown] moxifloxacin 400 mg tablet 400 mg PO DAILY 09/26/21 [History Last Taken Unknown] oxycodone-acetaminophen 5 mg-325 mg tablet (Percocet) 1 tab PO Q6H PRN pain 3 days #12 tabs 09/26/21 [Rx Last Taken Unknown] Allergy/AdvReac Type Severity Reaction Status Date / Time Sulfa (Sulfonamide Allergy Severe HEART Verified 11/07/21 11:30 Antibiotics) RACING Latex, Natural Rubber Allergy Rash, Verified 11/07/21 11:30 psioriasis amoxicillin [From Augmentin] AdvReac Nausea Verified 11/07/21 11:30 atorvastatin [From Lipitor] AdvReac Other Verified 11/07/21 11:30 clavulanic acid AdvReac Nausea Verified 11/07/21 11:30 [From Augmentin] Iodinated Contrast Media AdvReac Other Verified 11/07/21 11:30 [CONTRASTS] lisinopril AdvReac Other Verified 11/07/21 11:30 niacin AdvReac Other Verified 11/07/21 11:30 [From Niaspan Extended-Release] red dye AdvReac NEEDS Verified 11/07/21 11:30 FOLLOW-UP rosuvastatin [From Crestor] AdvReac Other Verified 11/07/21 11:30 turkey grease AdvReac Rash Uncoded 11/07/21 11:30 Family History Mother Heart disease Diabetes Father Heart disease Cancer Sister Cancer COPD (chronic obstructive pulmonary disease) Surgical History History of aortic valve replacement with bioprosthetic valve (~09/06/13) History of bilateral carotid endarterectomy History of coronary artery bypass surgery (~09/06/13) History of left mastectomy (~1998) History of right mastectomy (~1998) History of tubal ligation Social History household members: none housing: house Smoking Status: Former smoker how long ago did patient quit smokin second hand exposure: No alcohol intake: never substance use type: does not use caffeine: Yes Type: coffee Number of servings: 2 and tea what type of physical activity do you participate in: none franci/jehovah's witness: Jewish seatbelt use: always do you feel safe at home: Yes ROS ROS Narrative GENERAL: Fatigue HEENT: denies headache, sinus congestion, or drainage, dysphagia RESPIRATORY: denies cough, sputum production, shortness of breath, CARDIAC: denies chest pain, palpitations, orthopnea, PND GASTROINTESTINAL: Right upper quadrant abdominal pain GENITOURINARY: denies dysuria, urgency, frequency, heamaturia EXTREMITY: denies swelling MUSCULOSKELETAL: denies current joint pain or tenderness NEUROLOGIC: denies focal numbness, weakness, tingling HEMATOLOGIC: denies easy bruising and/or hemorrhage INTEGUMENT: denies rashes PSYCHIATRIC: denies suicidal or homicidal ideation Vital Signs Vital Signs Vital Signs: 11/07/21 11:28 11/07/21 14:01 11/07/21 16:03 Temperature 98.8 F 97.8 F Temperature Source Temporal Temporal Pulse Rate 105 H 73 83 Respiratory Rate 16 16 16 Blood Pressure 164/67 H 135/47 H 138/52 H Blood Pressure Mean 99 76 80 Blood Pressure Source Monitor Blood Pressure Position Semi-Fowlers Blood Pressure Location Left Forearm Pulse Ox 95 95 97 Oxygen Delivery Method Room Air Room Air Room Air 11/07/21 16:10 11/07/21 16:25 Temperature 98.0 F 98.0 F Temperature Source Oral Oral Pulse Rate 78 78 Respiratory Rate 18 18 Blood Pressure 143/55 H 140/55 H Blood Pressure Mean 84 83 Blood Pressure Source Monitor Monitor Blood Pressure Position Semi-Fowlers Semi-Fowlers Blood Pressure Location Left Forearm Left Forearm Pulse Ox 96 96 Oxygen Delivery Method Room Air Room Air Weight Weight: 63.5 kg Body Mass Index (BMI) 25.6 Results Lab / Micro Data Result Diagrams: 11/07/21 11:40 11/07/21 11:40 Labs: Laboratory Results - last 24 hr 11/07/21 11:40: WBC 8.3, RBC 2.56 L, Hgb 5.9 L*, Hct 21.2 L, MCV 82.8, MCH 23.0 L, MCHC 27.8 L, RDW Std Deviation 51.2 H, RDW Coeff of Velasquez 17.1 H, Plt Count 347, MPV 10.0, Immature Gran % (Auto) 0.500, Neut % (Auto) 79.1 H, Lymph % (Auto) 11.3 L, Coffey % (Auto) 6.7, Eos % (Auto) 1.9, Baso % (Auto) 0.5, Absolute Neuts (auto) 6.6, Absolute Lymphs (auto) 0.94, Nucleated RBC % 0.4, Diff Path Review May foll, Hypochromasia 1+ 11/07/21 11:40: Sodium 139, Potassium 3.9, Chloride 107, Carbon Dioxide 24.0, Anion Gap 8, BUN 20 H, Creatinine 1.16 H, Estim Creat Clear Calc 30.08, Est GFR (MDRD) Af Amer 58 L, Est GFR (MDRD) Non-Af 48 L, BUN/Creatinine Ratio 17.2, Glucose 138 H, Calcium 9.1, Total Bilirubin 0.90, AST 18, ALT 13, Alkaline Phosphatase 53, Troponin I High Sens 51, Total Protein 7.0, Albumin 3.6, Globulin 3.4, Albumin/Globulin Ratio 1.1, Lipase 98 11/07/21 12:20: Blood Type A POSITIVE, Antibody Screen Not Reportable, Crossmatch See Detail 11/07/21 12:20: Antibody Screen NEGATIVE, Antibody Identification NEGATIVE ANTIBODY PANEL 11/07/21 15:27: Troponin I High Sens 88 H Micro: Microbiology 11/07/21 15:35 Nasal Secretion SARS-CoV-2 & FLU Antigen (Rapid) - Final Radiology Impression Gallbladder Ultrasound 11/07/21 11:59 IMPRESSION: Distended common bile duct with stent. Cholelithiasis without cholecystitis. Electronically Signed: Donnie Childress, at 14:16 EDT , Assessment & Plan Assessment/Plan (1) Anemia: PLAN: Plan Patient is an 81-year-old lady with multiple comorbidities admitted with exertional fatigue and right upper quadrant abdominal pain 1. Acute symptomatic anemia ? Patient has history of recurrent GI bleed with previous ABL for which patient was previously treated with bipolar cautery. She presents with exertional fatigue. Hemoglobin 5.9. Blood transfusion initiated from the ED. Patient started on Protonix admitted to monitored bed ordered H&H every 6 posttransfusion. If patient hemoglobin continues to drop consult will be placed to GI for repeat endoscopic evaluation 2. Right upper quadrant abdominal pain ? Chronic secondary to biliary dyskinesia. Patient has history of biliary stent placement 3. Coronary artery disease ? With history of CABG patient is on antiplatelet therapy held in view of her anemia 4. Hypertension - Blood pressure controlled, home medications continued with dose adjustment as needed 5. Dyslipidemia -Patient is on statin therapy, continued at home dose 6. Valvular heart disease ? With known aortic valve disease with previous bioprosthetic valve replacement 7. Carotid artery disease ? With bilateral CEA 8. Paroxysmal A. fib ? Rate controlled not a candidate for systemic anticoagulation due to recurrent GI bleed 9. DVT prophylaxis ? SCDs Advance planning; did discuss with the patient regarding advanced directives as well as CODE STATUS. Did explain the various scenarios involved ( FULL CODE, DNR CCA, DNR CCA with no intubation, and DNR CC and what each meant) patient elected to be DNR CCA no intubation. Order was placed. Time spent on discussion 18 minutes. Charges/Coding Visit Charges OBSV E&M: 51902 Initial observation care L3 Procedures Hospitalists Procedures: 88623 Advncd Care Plan 30 Min
--- NOTE | 2021-11-07 19:46 | PCM.CONS.GEN ---
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 They were seen at 20 minutes into the study and capsule into the duodenum at 5 minutes. I do not think I can get to the previous active bleeding sites that were seen on capsule endoscopy. Recommend to transfuse to keep hemoglobin greater than 7. Cardiology is seeing her in regards to her increased troponin. (2) Biliary stent migration: PLAN: From the ultrasound I cannot tell if his stent migrated and asked the reason why she is having abdominal pain. That can be removed endoscopically. I think a lot of her symptoms does come from biliary colic. It does not seem that she has active cholecystitis at this time. She is not showing any signs of obstruction if the stent has migrated and is causing her right upper quadrant pain I will discuss with the patient to see if she wants me to remove the stent and possibly replace it and look to see if there is any other sites of bleeding. HPI Consult Data Date of Consult: 11/07/21 HPI Narrative Reason for Consultation: Anemia HPI Narrative: SAMMY SOLOMON, is a 81 F who presents 81 F who presents due to worsening anemia.? She has a significant cardiac history including atherosclerotic coronary artery disease status post CABG, valvular heart disease status post valve replacement, diabetes, dyslipidemia, paroxysmal atrial fibrillation, hypertension, psoriasis, chronic GERD, and degenerative joint disease.? She is not on anticoagulation or antiplatelet therapy.? She has a history of chronic iron deficiency anemia for several years, has been on oral iron supplement and periodic IV iron under the care of her PCP.? She is undergone endoscopic evaluation for iron deficiency anemia.? She was discovered to have AV malformations in the past and upper and lower GI tract.? Recently she underwent capsule endoscopy which had shown active bleeding in her small bowel.? She was advised to come to the emergency room for evaluation after the bleeding was seen.? In the ED her hemoglobin discovered to be 5.9.? She has not seen any blood in her stool.? She does complain of intermittent right upper quadrant pain due to history of biliary colic.? However because of her significant cardiovascular disease and her ongoing anemia she has not been a surgical candidate. [facility] Medical History Acute blood loss anemia Anemia Atherosclerotic heart disease of [place] coronary artery without angina pectoris Atypical chest pain Bilateral carotid artery stenosis Bilateral carotid bruits Biliary colic CAD (coronary artery disease) Carotid stenosis Cholelithiasis Jayson's syndrome Effusion, left knee Essential hypertension Former smoker Gallstones Gastrointestinal bleeding, upper GERD (gastroesophageal reflux disease) GI bleed History of left heart catheterization (LHC) (~07/14/20) HTN (hypertension) Hypertension Iron deficiency anemia due to chronic blood loss Near syncope Nonrheumatic aortic (valve) stenosis [place] (obstructive sleep apnea) Osteoarthritis Paroxysmal atrial fibrillation PND (post-nasal drip) Psoriasis Pure hypercholesterolemia Sleep disorder Sleep disorder breathing SOB (shortness of breath) on exertion TIA (transient ischemic attack) TIA (transient ischemic attack) Tobacco abuse Type 2 diabetes mellitus UGIB (upper gastrointestinal bleed) Home Medications ezetimibe 10 mg tablet 10 mg PO QHS cholesterol 09/01/13 [History Last Taken 08/25/21] pantoprazole 40 mg tablet,delayed release 40 mg PO DAILY gerd 09/01/13 [History Last Taken 08/27/21] nitroglycerin 0.4 mg sublingual tablet 0.4 mg sublingual Q5M PRN Chest Pain #25 tabs 10/05/18 [Rx Last Taken 04/12/19] niacin (inositol niacinate) 500 mg capsule 1,000 mg PO BID supplement 04/12/19 [History Last Taken 08/27/21] furosemide 20 mg tablet (Lasix) 10 mg PO DAILY PRN Edema 12/15/20 [History Last Taken 08/27/21] clopidogrel 75 mg tablet 75 mg PO DAILY blood thinner 04/18/21 [History Last Taken 08/27/21] levocetirizine 5 mg tablet (Xyzal) 5 mg PO DAILY 07/15/21 [History Last Taken 08/26/21] acetaminophen 325 mg capsule 650 mg PO Q4H PRN PAIN/FEVER 09/17/21 [History Last Taken Unknown] metoprolol tartrate 100 mg tablet 75 mg PO BID BP 09/17/21 [History Last Taken Unknown] cholecalciferol (vitamin D3) 125 mcg (5,000 unit) tablet (Vitamin D3) 125 mcg PO DAILY 09/26/21 [History Last Taken Unknown] iron,carbonyl 65 mg-vitamin C 125 mg tablet,delayed release (Vitron-C) 1 tab PO BID 09/26/21 [History Last Taken Unknown] moxifloxacin 400 mg tablet 400 mg PO DAILY 09/26/21 [History Last Taken Unknown] oxycodone-acetaminophen 5 mg-325 mg tablet (Percocet) 1 tab PO Q6H PRN pain 3 days #12 tabs 09/26/21 [Rx Last Taken Unknown] Allergy/AdvReac Type Severity Reaction Status Date / Time Sulfa (Sulfonamide Allergy Severe HEART Verified 11/07/21 11:30 Antibiotics) RACING Latex, Natural Rubber Allergy Rash, Verified 11/07/21 11:30 psioriasis amoxicillin [From Augmentin] AdvReac Nausea Verified 11/07/21 11:30 atorvastatin [From Lipitor] AdvReac Other Verified 11/07/21 11:30 clavulanic acid AdvReac Nausea Verified 11/07/21 11:30 [From Augmentin] Iodinated Contrast Media AdvReac Other Verified 11/07/21 11:30 [CONTRASTS] lisinopril AdvReac Other Verified 11/07/21 11:30 niacin AdvReac Other Verified 11/07/21 11:30 [From Niaspan Extended-Release] red dye AdvReac NEEDS Verified 11/07/21 11:30 FOLLOW-UP rosuvastatin [From Crestor] AdvReac Other Verified 11/07/21 11:30 turkey grease AdvReac Rash Uncoded 11/07/21 11:30 Family History Mother Heart disease Diabetes Father Heart disease Cancer Sister Cancer COPD (chronic obstructive pulmonary disease) Surgical History History of aortic valve replacement with bioprosthetic valve (~09/06/13) History of bilateral carotid endarterectomy History of coronary artery bypass surgery (~09/06/13) History of left mastectomy (~1998) History of right mastectomy (~1998) History of tubal ligation Social History household members: none housing: house Smoking Status: Former smoker how long ago did patient quit smokin second hand exposure: No alcohol intake: never substance use type: does not use caffeine: Yes Type: coffee Number of servings: 2 and tea what type of physical activity do you participate in: none franci/hoahaoism: [employer] seatbelt use: always do you feel safe at home: Yes ROS ROS Narrative GENERAL: Fatigue HEENT: denies headache, sinus congestion, or drainage, dysphagia RESPIRATORY: denies cough, sputum production, shortness of breath, CARDIAC: denies chest pain, palpitations, orthopnea, PND GASTROINTESTINAL: Right upper quadrant abdominal pain GENITOURINARY: denies dysuria, urgency, frequency, heamaturia EXTREMITY: denies swelling MUSCULOSKELETAL: denies current joint pain or tenderness NEUROLOGIC: denies focal numbness, weakness, tingling HEMATOLOGIC: denies easy bruising and/or hemorrhage INTEGUMENT: denies rashes PSYCHIATRIC: denies suicidal or homicidal ideation Physical Exam Const alert, oriented x3 and no apparent distress General Appearance: cooperative, comfortable and well kempt Exam Limitations: no limitations HEENT normocephalic, head/scalp atraumatic, hearing grossly normal bilaterally and moist oral mucous membranes Eyes PERRL, EOMs intact bilaterally and conjunctivae normal Neck no lymphadenopathy, supple and no JVD Resp normal respiratory effort, no retractions, no use of accessory muscles and clear to auscultation bilaterally Cardio regular rate, regular rhythm, S1 normal heart sound, S2 normal heart sound and no murmurs GI normal to inspection, nondistended, normoactive bowel sounds, soft to palpation, non-tender and non-distended Extremity normal to inspection, full ROM and no clubbing, cyanosis or edema Skin no rashes or lesions noted Neuro oriented x3, CN's II-XII intact bilaterally and moves all extremities Sensorium / Orientation: awake and alert Psych affect normal Lab / Micro Data Result Diagrams: 11/07/21 11:40 11/07/21 11:40 Labs: Laboratory Results - last 24 hr 11/07/21 11:40: WBC 8.3, RBC 2.56 L, Hgb 5.9 L*, Hct 21.2 L, MCV 82.8, MCH 23.0 L, MCHC 27.8 L, RDW Std Deviation 51.2 H, RDW Coeff of Velasquez 17.1 H, Plt Count 347, MPV 10.0, Immature Gran % (Auto) 0.500, Neut % (Auto) 79.1 H, Lymph % (Auto) 11.3 L, [place] % (Auto) 6.7, Eos % (Auto) 1.9, Baso % (Auto) 0.5, Absolute Neuts (auto) 6.6, Absolute Lymphs (auto) 0.94, Nucleated RBC % 0.4, Diff Path Review May foll, Hypochromasia 1+ 11/07/21 11:40: Sodium 139, Potassium 3.9, Chloride 107, Carbon Dioxide 24.0, Anion Gap 8, BUN 20 H, Creatinine 1.16 H, Estim Creat Clear Calc 30.08, Est GFR (MDRD) Af Amer 58 L, Est GFR (MDRD) Non-Af 48 L, BUN/Creatinine Ratio 17.2, Glucose 138 H, Calcium 9.1, Total Bilirubin 0.90, AST 18, ALT 13, Alkaline Phosphatase 53, Troponin I High Sens 51, Total Protein 7.0, Albumin 3.6, Globulin 3.4, Albumin/Globulin Ratio 1.1, Lipase 98 11/07/21 12:20: Blood Type A POSITIVE, Antibody Screen Not Reportable, Crossmatch See Detail 11/07/21 12:20: Antibody Screen NEGATIVE, Antibody Identification NEGATIVE ANTIBODY PANEL 11/07/21 15:27: Troponin I High Sens 88 H Micro: Microbiology 11/07/21 15:35 Nasal Secretion SARS-CoV-2 & FLU Antigen (Rapid) - Final Radiology Impression Gallbladder Ultrasound 11/07/21 11:59 IMPRESSION: Distended common bile duct with stent. Cholelithiasis without cholecystitis. Electronically Signed: Donnie Childress DO at 14:16 EDT , Charges/Coding Visit Charges Inpatient E&M: 84609 Init Hosp L3
[2021-11-07] MEDS: Ezetimibe 10 MG Tablet PO (20:20)
[2021-11-07] MEDS: Metoprolol Tartrate 25 MG Tablet 75 MG PO (20:20)
[2021-11-07] MEDS: 0.9% Saline Lock 10 ML Syringe IV (23:53)
[2021-11-08] VITALS (12 sets, daily range): BP systolic 111–126; BP diastolic 39–65; PULSE 66–74; RESP 16–18; TEMP 35.8–36.9; O2SAT 92–96
[2021-11-08 06:27] LABS: Absolute Lymphocyte Count 1.05 X10^3/uL (0.83-4.51); Absolute Neutrophil Count 6.4 X10^3/uL (2.0-7.7); Basophil# 0.08 X10^3/uL; Basophil% 0.9 % (0-1); Eosinophils% 6.6 % (0-5); Hematocrit 27.1 % (37-47); Hemoglobin 8.4 g/dL (12.0-15.0); Lymphocyte # 1.05 X10^3/ul (0.83-4.51); Lymphocyte % 11.6 % (19-41); Mean Corpuscular Hgb 25.6 pg (27.0-32.0); Mean Corpuscular Volume 82.6 fL (81-99); Mean Platelet Vol. 9.9 fl (6.2-12.0); Monocyte# 0.83 X10^3/uL; Monocyte% 9.2 % (0-10); NRBC Flagged by Analyzer 0.2 % (0-5); Neutrophil # 6.39 X10^3/uL (2.7-7.7); Neutrophil % 70.6 % (47-70); Platelet Count 269 K/mm3 (150-450); RBC Distribution Width CV 16.8 % (11.6-14.6); RBC Distribution Width SD 50.4 fl (35.1-43.9); Red Blood Count 3.28 M/mm3 (4.2-5.4); White Blood Count 9.1 K/mm3 (4.4-11.0)
[2021-11-08 06:50] LABS: Anion Gap 5 (5-15); BUN 17 mg/dL (7-18); BUN/Creat Ratio 18.6 RATIO (10-20); Calcium,Total 8.4 mg/dL (8.5-10.1); Chloride 109 mmol/L (98-107); Creatinine, Serum 0.91 mg/dL (0.55-1.02); EST Glomerular Filtration Rate 63 mL/min (>60); Est Glom Filt Rate - Afr Amer 76 mL/min (>60); Estimated Creatinine Clearance 38.35 ml/min; Glucose 77 mg/dL (74-106); Potassium 4.3 mmol/L (3.5-5.1); Sodium Level 140 mmol/L (136-145)
--- NOTE | 2021-11-08 07:37 | PN.HOSP_ITS ---
Subjective Subjective Patient seen hemoglobin came up to 8.4 following transfusion with 2 unit PRBC. Patient was seen in consultation by Dr. Montague his notes and recommendations reviewed Objective Data Objective Data Vital Signs: Vital Signs Temp Pulse Resp BP Pulse Ox O2 Del Method 96.5 F L 73 18 121/49 H 92 Room Air 11/08/21 03:44 11/08/21 03:44 11/08/21 03:44 11/08/21 03:44 11/08/21 03:44 11/08/21 03:46 Oxygen Delivery Method Room Air Weight: 61.5 kg Body Mass Index (BMI) 24.7 Intake & Output: Intake and Output for Last 24 Hours 11/06/21 11/07/21 11/08/21 23:59 23:59 23:59 Intake Total 740 / 740 60 / 60 Output Total 0 / 0 Balance 740 / 740 60 / 60 Lab / Micro Data Result Diagrams: 11/08/21 05:15 11/08/21 05:15 Labs: Laboratory Results - last 24 hr 11/07/21 11:40: WBC 8.3, RBC 2.56 L, Hgb 5.9 L*, Hct 21.2 L, MCV 82.8, MCH 23.0 L, MCHC 27.8 L, RDW Std Deviation 51.2 H, RDW Coeff of Velasquez 17.1 H, Plt Count 347, MPV 10.0, Immature Gran % (Auto) 0.500, Neut % (Auto) 79.1 H, Lymph % (Auto) 11.3 L, [place] % (Auto) 6.7, Eos % (Auto) 1.9, Baso % (Auto) 0.5, Absolute Neuts (auto) 6.6, Absolute Lymphs (auto) 0.94, Nucleated RBC % 0.4, Diff Path Review May foll, Hypochromasia 1+ 11/07/21 11:40: Sodium 139, Potassium 3.9, Chloride 107, Carbon Dioxide 24.0, Anion Gap 8, BUN 20 H, Creatinine 1.16 H, Estim Creat Clear Calc 30.08, Est GFR (MDRD) Af Amer 58 L, Est GFR (MDRD) Non-Af 48 L, BUN/Creatinine Ratio 17.2, Glucose 138 H, Calcium 9.1, Total Bilirubin 0.90, AST 18, ALT 13, Alkaline Phosphatase 53, Troponin I High Sens 51, Total Protein 7.0, Albumin 3.6, Globulin 3.4, Albumin/Globulin Ratio 1.1, Lipase 98 11/07/21 12:20: Blood Type A POSITIVE, Antibody Screen Not Reportable, Crossmatch See Detail 11/07/21 12:20: Antibody Screen NEGATIVE, Antibody Identification NEGATIVE ANTIBODY PANEL 11/07/21 15:27: Troponin I High Sens 88 H 11/08/21 05:15: WBC 9.1, RBC 3.28 L, Hgb 8.4 L, Hct 27.1 L, MCV 82.6, MCH 25.6 L , MCHC 31.0 L D, RDW Std Deviation 50.4 H, RDW Coeff of Velasquez 16.8 H, Plt Count 269, MPV 9.9, Immature Gran % (Auto) 1.100 H, Neut % (Auto) 70.6 H, Lymph % (Auto) 11.6 L, [place] % (Auto) 9.2, Eos % (Auto) 6.6 H, Baso % (Auto) 0.9, Absolute Neuts (auto) 6.4, Absolute Lymphs (auto) 1.05, Nucleated RBC % 0.2 11/08/21 05:15: Sodium 140, Potassium 4.3, Chloride 109 H, Carbon Dioxide 26.0, Anion Gap 5, BUN 17, Creatinine 0.91, Estim Creat Clear Calc 38.35, Est GFR (MDRD) Af Amer 76, Est GFR (MDRD) Non-Af 63, BUN/Creatinine Ratio 18.6, Glucose 77, Calcium 8.4 L Micro: Microbiology 11/07/21 15:35 Nasal Secretion SARS-CoV-2 & FLU Antigen (Rapid) - Final Radiography Diagnostic Testing: Radiology Impression Gallbladder Ultrasound 11/07/21 11:59 IMPRESSION: Distended common bile duct with stent. Cholelithiasis without cholecystitis. Electronically Signed: Donnie Childress DO at 14:16 EDT , Assessment & Plan Assessment/Plan (1) Anemia: PLAN: Plan Patient is an 81-year-old lady with multiple comorbidities admitted with exertional fatigue and right upper quadrant abdominal pain 1. Acute symptomatic anemia ? Patient has history of recurrent GI bleed with previous ABL for which patient was previously treated with bipolar cautery. She presents with exertional fatigue. Hemoglobin 5.9. Blood transfusion initiated from the ED. Patient started on Protonix admitted to monitored bed ordered H&H every 6 posttransfusion. If patient hemoglobin continues to drop consult will be placed to GI for repeat endoscopic evaluation ? 11/08/2021; hemoglobin up to 7.8 2. Right upper quadrant abdominal pain ? Chronic secondary to biliary dyskinesia. Patient has history of biliary stent placement -11/08/2021 Patient was seen in consultation by Dr. Montague. He did discuss with patient about possibility of stent removal and replacement. 3. Coronary artery disease ? With history of CABG patient is on antiplatelet therapy held in view of her anemia 4. Hypertension - Blood pressure controlled, home medications continued with dose adjustment as needed 5. Dyslipidemia -Patient is on statin therapy, continued at home dose 6. Valvular heart disease ? With known aortic valve disease with previous bioprosthetic valve replacement 7. Carotid artery disease ? With bilateral CEA 8. Paroxysmal A. fib ? Rate controlled not a candidate for systemic anticoagulation due to recurrent GI bleed 9. DVT prophylaxis ? SCDs Charges/Coding Visit Charges Inpatient E&M: 57478 Subs Hosp L2
[2021-11-08] MEDS: Cholecalciferol (Vit D3) 125 MCG CAPSULE (5,000 UNITS) PO (10:43)
[2021-11-08] MEDS: Metoprolol Tartrate 25 MG Tablet 75 MG PO ×2 (10:43→22:18)
[2021-11-08] MEDS: Loratadine 10 MG Tablet PO (10:50)
[2021-11-08] MEDS: 0.9% Saline Lock 10 ML Syringe IV ×2 (10:56→22:23)
[2021-11-08] MEDS: Ascorbic Acid 500 MG Tablet 250 MG PO (17:51)
[2021-11-08] MEDS: Ezetimibe 10 MG Tablet PO (22:18)
[2021-11-09] VITALS (18 sets, daily range): BP systolic 117–142; BP diastolic 40–63; PULSE 63–74; RESP 16–18; TEMP 36.5–36.9; O2SAT 91–98; BMI 25.0
[2021-11-09] MEDS: Metoprolol Tartrate 25 MG Tablet 75 MG PO ×2 (08:35→20:01)
[2021-11-09] MEDS: Cholecalciferol (Vit D3) 125 MCG CAPSULE (5,000 UNITS) PO (08:35)
[2021-11-09] MEDS: Ascorbic Acid 500 MG Tablet 250 MG PO ×2 (08:35→16:36)
[2021-11-09 10:21] LABS: Hematocrit 30.3 % (37-47); Hemoglobin 9.3 g/dL (12.0-15.0)
[2021-11-09] MEDS: Lactated Ringers 1,000 ML 15 ML IV (10:45)
--- NOTE | 2021-11-09 11:03 | PN.HOSP_ITS ---
Subjective Subjective Doing well, belly pain is improved. No issues overnight. Plan for EGD today Objective Data Objective Data Vital Signs: Vital Signs Temp Pulse Resp BP Pulse Ox O2 Del Method 98.4 F 64 18 125/40 H 94 Room Air 11/09/21 08:50 11/09/21 10:35 11/09/21 08:50 11/09/21 08:50 11/09/21 08:50 11/09/21 08:50 Oxygen Delivery Method Room Air Weight: 137 lb 3.2 oz Body Mass Index (BMI) 25.0 Intake & Output: Intake and Output for Last 24 Hours 11/08/21 11/09/21 11/10/21 03:59 03:59 03:59 Intake Total 740 / 740 1429.5 / 1429.5 310 / 310 Output Total 0 / 0 Balance 740 / 740 1429.5 / 1429.5 310 / 310 Medical Nutrition Assessment Dietitian: Malnutrition Criteria Met Start: 11/08/21 10:21 Freq: Status: Active Protocol: Document 11/08/21 10:32 AG (Rec: 11/08/21 10:32 [id number]) Nutrition Malnutrition Evidence of Malnutrition Exists Yes Malnutrition (moderate): Chronic Evidenced By Suboptimal Energy Intake ( Moderate),Weight Loss ( Moderate),Physical Changes ( Mild) Clinical Problem Chronic Disease or Condition Related Malnutrition Etiology moderate, chronic malnutrition related to inadequate oral intake d/t GI dysfunction Signs/Symptoms as evidenced by unintentional wt loss of 18.7#/12% x 7 months; estimated PO intake meeting <75% of estimated energy needs >3 months; mild muscle wasting/fat loss noted per physical exam- evident in clavicles, acromion, orbital, and temporal region. Status Active Problem Recommendation Dietitian Recommendations/Changes continue regular diet as tolerated; will try 4oz chocolate ensure TID w/ meals for additional calories/ protein if consumed. Lab / Micro Data Result Diagrams: 11/09/21 10:10 11/08/21 05:15 Labs: Laboratory Results - last 24 hr 11/09/21 10:10: Hgb 9.3 L, Hct 30.3 L Micro: Microbiology 11/07/21 15:35 Nasal Secretion SARS-CoV-2 & FLU Antigen (Rapid) - Final Physical Exam Const alert, oriented x3 and no apparent distress General Appearance: cooperative HEENT normocephalic and moist oral mucous membranes Eyes PERRL, EOMs intact bilaterally and conjunctivae normal Neck supple and no JVD Resp normal respiratory effort, no retractions, no use of accessory muscles and clear to auscultation bilaterally Auscultation: Negative for crackles, rales, rhonchi or wheezes Cardio regular rate, regular rhythm, S1 normal heart sound, S2 normal heart sound and no murmurs GI soft to palpation, non-tender and non-distended; Negative for hepatosplenomegaly Extremity no clubbing, cyanosis or edema Skin no rashes or lesions noted Neuro no focal motor deficits and no sensory deficits noted Psych affect normal Appearance: appropriate Assessment & Plan Assessment/Plan (1) Anemia: PLAN: Plan 1. Acute symptomatic anemia secondary to small bowel AVMs/right upper quadrant abdominal pain ? Hemoglobin yesterday was 8.4, will recheck today ? Plan for EGD and further evaluation, there is a possibility that her biliary stent has moved ? 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 She does need a valve replacement done at the [facility] early November 24. CAD status post CABG/HTN/HLD/aortic valve disease with a previous biopros thetic valve/coronary artery disease/paroxysmal A. fib ? We will hold her antiplatelets secondary to her anemia. ? Blood pressure is controlled, can continue with her home medications and make adjustments as necessary ? Continue with statin ? Plan to be evaluated at [facility] for valve replacement ? She is rate controlled but does not qualify for anticoagulation secondary to recurrent bleeding ? She has status post bilateral CEA DVT: SCDs Charges/Coding Visit Charges Inpatient E&M: 00076 Subs Hosp L2
[2021-11-09 12:03] LABS: Pathologist Review Reviewed
--- NOTE | 2021-11-09 12:18 | CASEMGMT ---
RN CM attempted to complete assessment at this time. Patient is out of the room currently. CM will attempt to complete assessment at later time.
--- NOTE | 2021-11-09 12:28 | OP.EGD_ITS ---
Patient Name: Ivanna Swann Procedure Date: 11/09/2021 11:20 AM Date of : 1940 Age: 81 Procedure: Upper GI endoscopy Indications: Acute post hemorrhagic anemia Providers: Bairon Montague DO Medicines: Monitored Anesthesia Care Patient Profile: This is an 81 year old female. Refer to note in patient chart for documentation of history and physical. Patient has symptoms of acute nausea and abdominal pain. Complications: No immediate complications. Procedure: Pre-Anesthesia Assessment: - Prior to the procedure, a History and Physical was performed, and patient medications and allergies were reviewed. The patient is competent. The risks and benefits of the procedure and the sedation options and risks were discussed with the patient. All questions were answered and informed consent was obtained. Patient identification and proposed procedure were verified by the physician in the pre-procedure area. Mental Status Examination: alert and oriented. Airway Examination: normal oropharyngeal airway and neck mobility. Respiratory Examination: clear to auscultation. CV Examination: normal. Prophylactic Antibiotics: The patient does not require prophylactic antibiotics. Prior Anticoagulants: The patient has taken no previous anticoagulant or antiplatelet agents. ASA Grade Assessment: II - A patient with mild systemic disease. After reviewing the risks and benefits, the patient was deemed in satisfactory condition to undergo the procedure. The anesthesia plan was to use moderate sedation / analgesia (conscious sedation). Immediately prior to administration of medications, the patient was re-assessed for adequacy to receive sedatives. The heart rate, respiratory rate, oxygen saturations, blood pressure, adequacy of pulmonary ventilation, and response to care were monitored throughout the procedure. The physical status of the patient was re-assessed after the procedure. After obtaining informed consent, the endoscope was passed under direct vision. Throughout the procedure, the patient's blood pressure, pulse, and oxygen saturations were monitored continuously. The colonoscope was introduced through the mouth, and advanced to the second part of duodenum. The upper GI endoscopy was accomplished without difficulty. The patient tolerated the procedure well. Scope In: 12:03:10 PM Scope Out: 12:19:53 PM Total Procedure Duration Time 0 hours 16 minutes 43 seconds Findings: The examined esophagus was normal. The entire examined stomach was normal. A foreign body was found in the second portion of the duodenum. Two 5 mm angiodysplastic lesions with bleeding were found in the third portion of the duodenum. Coagulation for hemostasis using argon plasma at 0.3 liters/minute and 20 rodríguez was successful. Estimated blood loss was minimal. One 5 mm angiodysplastic lesion with bleeding was found in the jejunum. Coagulation for hemostasis using argon plasma at 0.4 liters/minute and 20 rodríguez was successful. Estimated blood loss was minimal. Impression: - Normal esophagus. - Normal stomach. - Duodenal foreign body. - Two bleeding angiodysplastic lesions in the duodenum. Treated with argon plasma coagulation (APC). - One bleeding angiodysplastic lesion in the jejunum. Treated with argon plasma coagulation (APC). - No specimens collected. Recommendation: - - The signs and symptoms of potential delayed complications were discussed with the patient. - Patient has a contact number available for emergencies. - Return to normal activities tomorrow. - Resume previous diet. - Continue present medications. Procedure Code(s): --- Professional --- 40929, Esophagogastroduodenoscopy, flexible, transoral; with control of bleeding, any method CPT copyright 2017 [employer] [place] [employer]. All rights reserved. The codes documented in this report are preliminary and upon cloth mercerizer operator review may be revised to meet current compliance requirements. Bairon Montague DO 11/09/2021 12:28:19 PM This report has been signed electronically. Number of Addenda: 1 Note Initiated On: 11/09/2021 11:20 AM Addendum Number: 1 Addendum Date: 01/27/2022 6:18:07 AM MAC was used as sedation for this procedure. Bairon Montague DO 01/27/2022 6:18:13 AM This report has been signed electronically.
--- NOTE | 2021-11-09 12:29 | OP.CCLET_ITS ---
01/27/2022 Daisha Ramirez [address] [place] [address] Re : Upper GI endoscopy procedure for Ivanna Swann Dear Dr. Ramirez This procedure was performed on Tuesday, November 09, 2021. My impressions and recommendations are as follows: Impressions : - Normal esophagus. - Normal stomach. - Duodenal foreign body. - Two bleeding angiodysplastic lesions in the duodenum. Treated with argon plasma coagulation (APC). - One bleeding angiodysplastic lesion in the jejunum. Treated with argon plasma coagulation (APC). - No specimens collected. Recommendations : - - The signs and symptoms of potential delayed complications were discussed with the patient. - Patient has a contact number available for emergencies. - Return to normal activities tomorrow. - Resume previous diet. - Continue present medications. My findings are described in the full procedure note, which is enclosed. If I can be of further assistance, please feel free to contact me at . Sincerely, Bairon Montague DO 11/09/2021 12:28:19 PM This report has been signed electronically.
--- NOTE | 2021-11-09 14:22 | CASEMGMT ---
RN JESUSITA Face to Face with patient for initial transition planning/care coordination assessment. RN CM introduced self and role at [facility]. Patient lying in bed, alert and oriented. Patient willing to participate in assessment and is able to answer all questions appropriately. Care providers, pharmacy, and demographics verified. Patient wishes to discharge home, denies need for home health at this time. Patient states she has no further needs or concerns at this time. CM to follow for discharge planning needs that may arise. PCP: James Specialists: Jessica, point of care technician; Christo, digital associate media director; Friend, GI Preferred Pharmacy: [facility] Insurance: [employer] [facility] Prescription Benefit: yes Living Will/HPOA: yes, son Kolby Swann LNOK: son, niece Living Arrangements: Patient lives alone in a single story home with 2 steps to enter the home. Patient states she is independent at home. Transportation: self, niece, grandson DME/HHC: Patient states she has shower chair, raised toilet, cane, walker, grab bars, and wheelchair at home. Patient states she has had [facility] in the past. Patient denies needs at discharge Disposition Plan: Patient to discharge home with family support and follow-up plans in place. Mamta SOTO, RN, CM
--- NOTE | 2021-11-09 16:25 | CHAPLAIN ---
Type of Pastoral Visit _x__ Initial Visit ___ Follow-up Visit ___ On-call Visit ___ General Patient Visit ___ Spiritual Assessment ___ Family Conference ___ Bereavement ___ Rapid Response ___ Code Blue ___ Other (describe below) Pastoral Care Referral From _x__ Patient ___ Family ___ Nurse ___ Physician ___ Director University ___ Product Marketer ___ Other (describe below) Sacrament/Intervention _x__ Active listening ___ Anointing ___ Denominational ___ Bereavement ___ Communion ___ Gin exploration ___ _x__ Life review _x__ Prayer ___ Reconciliation ___ Sacrament of Sick _x__ Supportive presence ___ Wedding ___ Other (describe below) Pastoral Comments met this patient in a previous admission; pt gives updates on her life and health; pt is waiting for procedure at the Clinic in early November; pt will have to wait for further procedure/surgery and so discussion about waiting; pt gives some life goals and she is looking forward to living longer and getting well; pt is talkative and welcomes support and prayer
[2021-11-09] MEDS: 0.9% Saline Lock 10 ML Syringe IV (20:00)
[2021-11-09] MEDS: Ezetimibe 10 MG Tablet PO (20:00)
[2021-11-10] VITALS (19 sets, daily range): BP systolic 120–169; BP diastolic 40–88; PULSE 61–81; RESP 15–18; TEMP 36.2–36.8; O2SAT 59–100
[2021-11-10 05:16] LABS: Absolute Lymphocyte Count 0.94 X10^3/uL (0.83-4.51); Absolute Neutrophil Count 7.7 X10^3/uL (2.0-7.7); Basophil# 0.05 X10^3/uL; Basophil% 0.5 % (0-1); Eosinophil# 0.51 X10^3/uL; Hematocrit 28.3 % (37-47); Hemoglobin 8.7 g/dL (12.0-15.0); Lymphocyte # 0.94 X10^3/ul (0.83-4.51); Lymphocyte % 9.3 % (19-41); Mean Corp Hgb Conc 30.7 g/dL (32-36); Mean Corpuscular Hgb 25.1 pg (27.0-32.0); Mean Corpuscular Volume 81.8 fL (81-99); Mean Platelet Vol. 9.7 fl (6.2-12.0); Monocyte# 0.89 X10^3/uL; Monocyte% 8.8 % (0-10); NRBC Flagged by Analyzer 0 % (0-5); Neutrophil # 7.68 X10^3/uL (2.7-7.7); Platelet Count 240 K/mm3 (150-450); RBC Distribution Width CV 17.1 % (11.6-14.6); RBC Distribution Width SD 49.3 fl (35.1-43.9); Red Blood Count 3.46 M/mm3 (4.2-5.4); White Blood Count 10.1 K/mm3 (4.4-11.0)
[2021-11-10 05:24] LABS: International Normalized Ratio 1.3; Prothrombin Time (Protime)PT. 15.8 SECONDS (11.7-14.9)
[2021-11-10 05:25] LABS: Partial Thromboplast Time 30.1 Seconds (24.1-36.2)
[2021-11-10 05:44] LABS: BUN 10 mg/dL (7-18); Creatinine, Serum 0.87 mg/dL (0.55-1.02); EST Glomerular Filtration Rate 67 mL/min (>60); Estimated Creatinine Clearance 40.11 ml/min; Glucose 91 mg/dL (74-106)
[2021-11-10 05:45] LABS: Anion Gap 5 (5-15); BUN/Creat Ratio 11.5 RATIO (10-20); Calcium,Total 8.5 mg/dL (8.5-10.1); Chloride 108 mmol/L (98-107); Est Glom Filt Rate - Afr Amer 81 mL/min (>60); Potassium 4.2 mmol/L (3.5-5.1); Sodium Level 143 mmol/L (136-145)
[2021-11-10 07:31] LABS: Hemoglobin A1c 5.1 % (3.8-5.6)
--- NOTE | 2021-11-10 08:51 | PN.HOSP_ITS ---
Subjective Subjective Doing well today, still with some abdominal pain. Denies any chest pain or shortness of breath. Hemoglobin is stable at 8.7 Objective Data Objective Data Vital Signs: Vital Signs Temp Pulse Resp BP Pulse Ox O2 Del Method 98.1 F 61 16 142/57 H 94 Room Air 11/10/21 05:12 11/10/21 06:59 11/10/21 05:12 11/10/21 05:12 11/10/21 07:30 11/10/21 07:30 Oxygen Delivery Method Room Air Weight: 137 lb 3.2 oz Body Mass Index (BMI) 25.0 Intake & Output: Intake and Output for Last 24 Hours 11/09/21 11/10/21 11/11/21 03:59 03:59 03:59 Intake Total 1429.5 / 1429.5 1471.25 / 1471.25 Output Total 0 / 0 Balance 1429.5 / 1429.5 1471.25 / 1471.25 Medical Nutrition Assessment Dietitian: Malnutrition Criteria Met Start: 11/08/21 10:2 1 Freq: Status: Active Protocol: Document 11/08/21 10:32 AG (Rec: 11/08/21 10:32 AG [id number]) Nutrition Malnutrition Evidence of Malnutrition Exists Yes Malnutrition (moderate): Chronic Evidenced By Suboptimal Energy Intake ( Moderate),Weight Loss ( Moderate),Physical Changes ( Mild) Clinical Problem Chronic Disease or Condition Related Malnutrition Etiology moderate, chronic malnutrition related to inadequate oral intake d/t GI dysfunction Signs/Symptoms as evidenced by unintentional wt loss of 18.7#/12% x 7 months; estimated PO intake meeting <75% of estimated energy needs >3 months; mild muscle wasting/fat loss noted per physical exam- evident in clavicles, acromion, orbital, and temporal region. Status Active Problem Recommendation Dietitian Recommendations/Changes continue regular diet as tolerated; will try 4oz chocolate ensure TID w/ meals for additional calories/ protein if consumed. Lab / Micro Data Result Diagrams: 11/10/21 04:59 11/10/21 04:59 Labs: Laboratory Results - last 24 hr 11/07/21 11:40: Diff Path Review Reviewed 11/09/21 10:10: Hgb 9.3 L, Hct 30.3 L 11/10/21 04:59: WBC 10.1, RBC 3.46 L, Hgb 8.7 L, Hct 28.3 L, MCV 81.8, MCH 25.1 L, MCHC 30.7 L, RDW Std Deviation 49.3 H, RDW Coeff of Velasquez 17.1 H, Plt Count 240, MPV 9.7, Immature Gran % (Auto) 0.400, Neut % (Auto) 76.0 H, Lymph % (Auto) 9.3 L, Nye % (Auto) 8.8, Eos % (Auto) 5.0, Baso % (Auto) 0.5, Absolute Neuts (auto) 7.7, Absolute Lymphs (auto) 0.94, Nucleated RBC % 0 11/10/21 04:59: PT 15.8 H, INR 1.3, APTT 30.1 11/10/21 04:59: Sodium 143, Potassium 4.2, Chloride 108 H, Carbon Dioxide 30.0, Anion Gap 5, BUN 10, Creatinine 0.87, Estim Creat Clear Calc 40.11, Est GFR (MDRD) Af Amer 81, Est GFR (MDRD) Non-Af 67, BUN/Creatinine Ratio 11.5, Glucose 91, Calcium 8.5 11/10/21 04:59: Hemoglobin A1c 5.1 Micro: Microbiology 11/07/21 15:35 Nasal Secretion SARS-CoV-2 & FLU Antigen (Rapid) - Final Physical Exam Narrative Const alert, oriented x3 and no apparent distress General Appearance: cooperative HEENT normocephalic and moist oral mucous membranes Eyes PERRL, EOMs intact bilaterally and conjunctivae normal Neck supple and no JVD Resp normal respiratory effort, no retractions, no use of accessory muscles and clear to auscultation bilaterally Auscultation: Negative for crackles, rales, rhonchi or wheezes Cardio regular rate, regular rhythm, S1 normal heart sound, S2 normal heart sound and no murmurs GI soft to palpation, non-tender and non-distended; Negative for hepatosplenomegaly Extremity no clubbing, cyanosis or edema Skin no rashes or lesions noted Neuro no focal motor deficits and no sensory deficits noted Psych affect normal Appearance: appropriate Assessment & Plan Assessment/Plan (1) Anemia: PLAN: Plan 1. Acute symptomatic anemia secondary to small bowel AVMs/right upper quadrant abdominal pain ? Hemoglobin yesterday was 8.4, will recheck today ? EGD with multiple AVMs in her duodenum. Her biliary stent had migrated and she will have this replaced today ? 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 She does need a valve replacement done at the [facility] early November 24. CAD status post CABG/HTN/HLD/aortic valve disease with a previous bioprosthetic valve/coronary artery disease/paroxysmal A. fib ? We will hold her antiplatelets secondary to her anemia. ? Blood pressure is controlled, can continue with her home medications and make adjustments as necessary ? Continue with statin ? Plan to be evaluated at [facility] for valve replacement ? She is rate controlled but does not qualify for anticoagulation secondary to recurrent bleeding ? She has status post bilateral CEA DVT: SCDs Charges/Coding Visit Charges Inpatient E&M: 81273 Subs Hosp L2
[2021-11-10] MEDS: Lactated Ringers 1,000 ML 15 ML IV (13:26)
--- NOTE | 2021-11-10 15:05 | RAD_ITS ---
STUDY: ERCP. REASON FOR EXAM: Female, 81 years old. ERCP STENT REMOVAL FLUOROSCOPY TIME (if supplied): ( 59 seconds ) minutes/seconds. 8 images were submitted. TECHNIQUE: An ERCP was performed by the dental equipment technician. Imaging was provided. COMPARISON: None. FINDINGS: There is evidence of a dilated common bile duct as well as central intrahepatic biliary ducts. A balloon catheter is seen within the common bile duct. No free flow contrast is seen entering the second portion of the duodenum. RAD/ERCP Biliary Only IMPRESSION: Dilated intra and extra hepatic biliary ducts. No free flow of contrast is seen entering the second portion of the duodenum. Electronically Signed: Manolo Sierra MD at 13:46 EDT ,
--- NOTE | 2021-11-10 15:49 | OP.ERCP_ITS ---
Patient Name: Ivanna Swann Procedure Date: 11/10/2021 1:26 PM Date of : 1940 Age: 81 Procedure: ERCP Indications: Abdominal pain of suspected biliary origin, Abdominal pain of suspected biliary or pancreatic origin, Biliary stent removal Providers: Bairon Montague DO Medicines: General Anesthesia Patient Profile: This is an 81 year old female. Refer to note in patient chart for documentation of history and physical. Patient has symptoms of acute right upper quadrant abdominal pain, acute jaundice and acute nausea. She is status post ERCP for biliary evaluation and ERCP for stone removal within the past three months. Complications: No immediate complications. Procedure: Pre-Anesthesia Assessment: - Prior to the procedure, a History and Physical was performed, and patient medications and allergies were reviewed. The patient is competent. The risks and benefits of the procedure and the sedation options and risks were discussed with the patient. All questions were answered and informed consent was obtained. Patient identification and proposed procedure were verified by the physician in the pre-procedure area. Mental Status Examination: alert and oriented. Airway Examination: normal oropharyngeal airway and neck mobility. Respiratory Examination: clear to auscultation. CV Examination: normal. Prophylactic Antibiotics: The patient does not require prophylactic antibiotics. Prior Anticoagulants: The patient has taken no previous anticoagulant or antiplatelet agents. ASA Grade Assessment: II - A patient with mild systemic disease. After reviewing the risks and benefits, the patient was deemed in satisfactory condition to undergo the procedure. The anesthesia plan was to use moderate sedation / analgesia (conscious sedation). Immediately prior to administration of medications, the patient was re-assessed for adequacy to receive sedatives. The heart rate, respiratory rate, oxygen saturations, blood pressure, adequacy of pulmonary ventilation, and response to care were monitored throughout the procedure. The physical status of the patient was re-assessed after the procedure. After obtaining informed consent, the scope was passed under direct vision. Throughout the procedure, the patient's blood pressure, pulse, and oxygen saturations were monitored continuously. The Duodenoscope was introduced through the mouth, and advanced to the duodenum and used to inject contrast into the bile duct. The ERCP was accomplished without difficulty. The patient tolerated the procedure well. Scope In: 3:18:49 PM Scope Out: 3:34:33 PM Total Procedure Duration Time 0 hours 15 minutes 44 seconds Findings: The cloth classer film was normal. The esophagus was successfully intubated under direct vision. The scope was advanced to a normal major papilla in the descending duodenum without detailed examination of the pharynx, larynx and associated structures, and upper GI tract. The upper GI tract was grossly normal. The bile duct was deeply cannulated with the short-nosed traction sphincterotome. Contrast was injected. I personally interpreted the bile duct images. There was brisk flow of contrast through the ducts. Opacification of the entire biliary tree except for the cystic duct and gallbladder was successful. The maximum diameter of the ducts was 9 mm. The entire biliary tree except for the cystic duct and gallbladder and entire opacified area were moderately dilated, with a stone causing an obstruction. The largest diameter was 5 mm. A straight Roadrunner wire was passed into the biliary tree. A 5 mm biliary sphincterotomy was made with a traction (standard) sphincterotome using ERBE electrocautery. There was no post-sphincterotomy bleeding. The biliary tree was swept with a 15 mm balloon starting at the bifurcation. Sludge was swept from the duct. All stones were removed. Common bile duct was successfully dilated with a 6-7-8 mm balloon (to a maximum balloon size of 7 mm) dilator. One stent was removed from the biliary tree using a snare. The stent was found to be occluded via the water column test. Impression: - The biliary system was moderately dilated, with a stone causing an obstruction. - Choledocholithiasis was found. Complete removal was accomplished by biliary sphincterotomy and balloon extraction. - A biliary sphincterotomy was performed. - The biliary tree was swept. - Common bile duct was successfully dilated. - One stent was removed from the biliary tree. - Multiple partially obstructing non-bleeding duodenal ulcers with no stigmata of bleeding. Biopsied. Procedure Code(s): --- Professional --- 54534, 59, Endoscopic retrograde cholangiopancreatography (ERCP); with trans-endoscopic balloon dilation of biliary/pancreatic duct(s) or of ampulla (sphincteroplasty), including sphincterotomy, when performed, each duct 29022, 51, Endoscopic retrograde cholangiopancreatography (ERCP); with removal of foreign body(s) or stent(s) from biliary/pancreatic duct(s) 59653, Endoscopic retrograde cholangiopancreatography (ERCP); with removal of calculi/debris from biliary/pancreatic duct(s) 95994, 26, Endoscopic catheterization of the biliary ductal system, radiological supervision and interpretation CPT copyright 2017 [employer]. All rights reserved. The codes documented in this report are preliminary and upon medical records coder review may be revised to meet current compliance requirements. Bairon Montague DO 11/10/2021 3:49:04 PM This report has been signed electronically. Number of Addenda: 0 Note Initiated On: 11/10/2021 1:26 PM
--- NOTE | 2021-11-10 15:50 | OP.CCLET_ITS ---
11/10/2021 Daisha Ramirez [address] [place] [address] Re : ERCP procedure for Ivanna Swann Dear Dr. Ramirez This procedure was performed on Wednesday, November 10, 2021. My impressions and recommendations are as follows: Impressions : - The biliary system was moderately dilated, with a stone causing an obstruction. - Choledocholithiasis was found. Complete removal was accomplished by biliary sphincterotomy and balloon extraction. - A biliary sphincterotomy was performed. - The biliary tree was swept. - Common bile duct was successfully dilated. - One stent was removed from the biliary tree. - Multiple partially obstructing non-bleeding duodenal ulcers with no stigmata of bleeding. Biopsied. Recommendations : My findings are described in the full procedure note, which is enclosed. If I can be of further assistance, please feel free to contact me at . Sincerely, Bairon Montague, 11/10/2021 3:49:04 PM This report has been signed electronically.
[2021-11-10] MEDS: Metoprolol Tartrate 25 MG Tablet 75 MG PO (21:54)
[2021-11-10] MEDS: Ezetimibe 10 MG Tablet PO (21:54)
[2021-11-11 06:42] LABS: Absolute Lymphocyte Count 0.48 X10^3/uL (0.83-4.51); Absolute Neutrophil Count 6.3 X10^3/uL (2.0-7.7); Basophil# 0.01 X10^3/uL; Basophil% 0.1 % (0-1); Differential Comment SCANNED; Differential Indicated SCAN CRITERIA MET; Hematocrit 34.7 % (37-47); Hemoglobin 10.3 g/dL (12.0-15.0); Lymphocyte # 0.48 X10^3/ul (0.83-4.51); Mean Corp Hgb Conc 29.7 g/dL (32-36); Mean Corpuscular Hgb 25.2 pg (27.0-32.0); Mean Corpuscular Volume 84.8 fL (81-99); Mean Platelet Vol. 10.5 fl (6.2-12.0); Monocyte# 0.06 X10^3/uL; Monocyte% 0.9 % (0-10); NRBC Flagged by Analyzer 0 % (0-5); Neutrophil # 6.26 X10^3/uL (2.7-7.7); Neutrophil % 91.6 % (47-70); POSITIVE DIFFERENTIAL YES; Platelet Count 239 K/mm3 (150-450); RBC Distribution Width CV 17.1 % (11.6-14.6); RBC Distribution Width SD 50.1 fl (35.1-43.9); Red Blood Count 4.09 M/mm3 (4.2-5.4); White Blood Count 6.8 K/mm3 (4.4-11.0)
[2021-11-11 06:45] VITALS: BP 165/55; PULSE 71; RESP 16; TEMP 36.5; O2SAT 96
[2021-11-11 07:00] VITALS: PULSE 62
[2021-11-11 09:18] VITALS: BP 165/55; PULSE 62
[2021-11-11] MEDS: Loratadine 10 MG Tablet PO (09:18)
[2021-11-11] MEDS: Ascorbic Acid 500 MG Tablet 250 MG PO (09:18)
[2021-11-11] MEDS: Cholecalciferol (Vit D3) 125 MCG CAPSULE (5,000 UNITS) PO (09:18)
[2021-11-11] MEDS: Metoprolol Tartrate 25 MG Tablet 75 MG PO (09:18)
--- NOTE | 2021-11-11 09:29 | DCINST_ITS ---
Discharge Instructions Diet Discharge Diet: Low fat / Low cholesterol Activity Discharge Activity: Return to Normal Activity Dressing / Incision Call your doctor if you observe: Fever of 101 or Higher, Shortness of breath, Dizziness, Fainting spells, Swelling in the ankles, Chest pain and Increased palpitations (irregular heartbeat) Follow Up Care Test Results: Test results from this visit will be discussed in further detail at your follow- up appointment, if applicable. Discharge Plan Admission Admit Date/Time: 11/07/21 18:28 Attending Provider: Figueroa Andrea Primary Care Provider: Daisha Ramirez Consulting Providers: Ari Madrid Instructions Additional Instructions / Restrictions: Follow-up with your PCP in 3 to 5 days to monitor your hemoglobin. Discharge Orders/Prescriptions Prescriptions: New ascorbic acid (vitamin C) 500 mg Tablet 250 mg PO BIDCM Qty: 60 0RF ferrous sulfate [FeroSul] 325 mg (65 mg iron) Tablet 325 mg PO BIDCM Qty: 60 0RF Continued nitroglycerin 0.4 mg tablet, sublingual 0.4 mg SUBLINGUAL Q5M PRN (Reason: Chest Pain) Qty: 25 1RF levocetirizine [Xyzal] 5 mg tablet 5 mg PO DAILY pantoprazole 40 MG tablet 40 mg PO DAILY Label Comments: stomach acid ezetimibe 10 MG tablet 10 mg PO QHS Label Comments: cholesterol niacin (inositol niacinate) 500 MG capsule 1,000 mg PO BID furosemide [Lasix] 20 mg Tablet 10 mg PO DAILY PRN (Reason: Edema) clopidogrel 75 mg tablet 75 mg PO DAILY Hold Instructions: Hold until appointment with Dr. Montague. metoprolol tartrate 100 mg tablet 75 mg PO BID cholecalciferol (vitamin D3) [Vitamin D3] 125 mcg (5,000 unit) Tablet 125 mcg PO DAILY Referrals / Follow Up: Daisha Ramirez DO [Primary Care Provider] - Within 1 Week Bairon Montague DO [STAFF PHYSICIAN] - Within 1 Month Disposition Disposition (needs filled in before D/C Order can be placed): Home, Self Care
--- NOTE | 2021-11-11 09:32 | PCM.DC.SUM ---
Providers Date of Admission: 11/07/21 Primary Care Physician: Dr. Daisha Ramirez, DO Reason For Visit: ANEMIA Diagnosis Discharge Diagnosis (1) Anemia: Status: Acute Code(s): D64.9 - Anemia, unspecified Plan 1. Acute symptomatic anemia secondary to small bowel AVMs/right upper quadrant abdominal pain ? Hemoglobin yesterday was 8.4, will recheck today ? EGD with multiple AVMs in her duodenum. Her biliary stent had migrated and she will have this replaced today ? 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 She does need a valve replacement done at the [facility] early November 24. CAD status post CABG/HTN/HLD/aortic valve disease with a previous bioprosthetic valve/coronary artery disease/paroxysmal A. fib ? We will hold her antiplatelets secondary to her anemia. ? Blood pressure is controlled, can continue with her home medications and make adjustments as necessary ? Continue with statin ? Plan to be evaluated at [facility] for valve replacement ? She is rate controlled but does not qualify for anticoagulation secondary to recurrent bleeding ? She has status post bilateral CEA DVT: SCDs Medications at Discharge Home Medications ezetimibe 10 mg tablet 10 mg PO QHS cholesterol 09/01/13 pantoprazole 40 mg tablet,delayed release 40 mg PO DAILY gerd 09/01/13 nitroglycerin 0.4 mg sublingual tablet 0.4 mg sublingual Q5M PRN Chest Pain #25 tabs 10/05/18 niacin (inositol niacinate) 500 mg capsule 1,000 mg PO BID supplement 04/12/19 furosemide 20 mg tablet (Lasix) 10 mg PO DAILY PRN Edema 12/15/20 clopidogrel 75 mg tablet 75 mg PO DAILY blood thinner 04/18/21 levocetirizine 5 mg tablet (Xyzal) 5 mg PO DAILY supplement 07/15/21 metoprolol tartrate 100 mg tablet 75 mg PO BID BP 09/17/21 cholecalciferol (vitamin D3) 125 mcg (5,000 unit) tablet (Vitamin D3) 125 mcg PO DAILY supplement 09/26/21 ascorbic acid (vitamin C) 500 mg tablet 250 mg PO BIDCM #60 tabs 11/11/21 ferrous sulfate 325 mg (65 mg iron) tablet (FeroSul) 325 mg PO BIDCM #60 tabs 11/11/21 Hospital Course Operations ERCP Procedures EGD Summary of Care Provided Minutes Spent on Discharge: 43 Hospital Course: Per HPI: SAMMY SOLOMON, is a 81 F with multiple comorbidities including coronary artery disease with previous CABG, history of previous GI bleed secondary to AVM, history of chronic right upper quadrant pain with previous biliary stent who presents right upper quadrant pain.? Patient has been seen in the ED almost a month prior to to her current admission transferred to the [facility] managed conservatively and discharged home with no intervention.? Presented to the ED with recurrence of her right upper quadrant pain.? Patient also noticed increasing fatigue with minimal exertion as well as swelling involving both lower extremities.? Imaging studies obtained in the ED was essentially unchanged from previous.? She was however found to be anemic with a hemoglobin of 5.9.? Admitted to regular nursing floor for further management Hospital course: 1.? Acute symptomatic anemia secondary to small bowel AVMs with GI bleed/right upper quadrant abdominal pain ? Hemoglobin today is 10.3 ? EGD with multiple AVMs in her duodenum which were treated.? Stent was removed and biliary tree was swept, there was debris and stone. Stent was replaced ? 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 She does need a valve replacement done at the [facility] early November - Discussed with her the plan for discharge today, she expressed understading of the risks and benefits of going home and she would like to go home today. She will need to f/u with her PCP 3-5 days to monitor her hemoglobin and she will need to f/u with GI w/i a month. C/w iron supplements. She can resume her home antiplatelets tomorrow. 2.? CAD status post CABG/HTN/HLD/aortic valve disease with a previous bioprosthetic valve/coronary artery disease/paroxysmal A. fib ? We will hold her antiplatelets secondary to her anemia. ? Blood pressure is controlled, can continue with her home medications and make adjustments as necessary ? Continue with statin ? Plan to be evaluated at [facility] for valve replacement ? She is rate controlled but does not qualify for anticoagulation secondary to recurrent bleeding ? She has status post bilateral CEAe Physical Exam Narrative Const alert, oriented x3 and no apparent distress General Appearance: cooperative HEENT normocephalic and moist oral mucous membranes Eyes PERRL, EOMs intact bilaterally and conjunctivae normal Neck supple and no JVD Resp normal respiratory effort, no retractions, no use of accessory muscles and clear to auscultation bilaterally Auscultation: Negative for crackles, rales, rhonchi or wheezes Cardio regular rate, regular rhythm, S1 normal heart sound, S2 normal heart sound and no murmurs GI soft to palpation, non-tender and non-distended; Negative for hepatosplenomegaly Extremity no clubbing, cyanosis or edema Skin no rashes or lesions noted Neuro no focal motor deficits and no sensory deficits noted Psych affect normal Appearance: appropriate Medical Records Data Medical Nutrition Assessment Dietitian: Malnutrition Criteria Met Start: 11/08/21 10:21 Freq: Status: Active Protocol: Document 11/08/21 10:32 (Rec: 11/08/21 10:32 [id number]) Nutrition Malnutrition Evidence of Malnutrition Exists Yes Malnutrition (moderate): Chronic Evidenced By Suboptimal Energy Intake ( Moderate),Weight Loss ( Moderate),Physical Changes ( Mild) Clinical Problem Chronic Disease or Condition Related Malnutrition Etiology moderate, chronic malnutrition related to inadequate oral intake d/t GI dysfunction Signs/Symptoms as evidenced by unintentional wt loss of 18.7#/12% x 7 months; estimated PO intake meeting <75% of estimated energy needs >3 months; mild muscle wasting/fat loss noted per physical exam- evident in clavicles, acromion, orbital, and temporal region. Status Active Problem Recommendation Dietitian Recommendations/Changes continue regular diet as tolerated; will try 4oz chocolate ensure TID w/ meals for additional calories/ protein if consumed. Weight / BMI Weight Weight: 137 lb 3.2 oz Body Mass Index (BMI) 25.0 ABG / Lab / Microbiology Data Result Diagrams: 11/11/21 03:51 11/10/21 04:59 Laboratory: Laboratory Results - last 24 hr 11/11/21 03:51: WBC 6.8, RBC 4.09 L, Hgb 10.3 L, Hct 34.7 L, MCV 84.8, MCH 25.2 L, MCHC 29.7 L, RDW Std Deviation 50.1 H, RDW Coeff of Velasquez 17.1 H, Plt Count 239, MPV 10.5, Immature Gran % (Auto) 0.400, Neut % (Auto) 91.6 H, Lymph % (Auto) 7.0 L, [place] % (Auto) 0.9, Eos % (Auto) 0.0, Baso % (Auto) 0.1, Absolute Neuts (auto) 6.3, Absolute Lymphs (auto) 0.48 L, Nucleated RBC % 0, Differential Comment SCANNED Microbiology: Microbiology 11/07/21 15:35 Nasal Secretion SARS-CoV-2 & FLU Antigen (Rapid) - Final D/C Instructions Discharge Diet: Low fat / Low cholesterol Call your doctor if you observe: Fever of 101 or Higher, Shortness of breath, Dizziness, Fainting spells, Swelling in the ankles, Chest pain and Increased palpitations (irregular heartbeat) Meaningful Use Info Meaningful Use Diagnoses (Choose all that apply): None applicable Discharge Plan Admission Admit Date/Time: 11/07/21 18:28 Attending Provider: Figueroa Andrea Primary Care Provider: Daisha Ramirez Consulting Providers: Ari Madrid Instructions Additional Instructions / Restrictions: Follow-up with your PCP in 3 to 5 days to monitor your hemoglobin. Discharge Orders/Prescriptions Prescriptions: New ascorbic acid (vitamin C) 500 mg Tablet 250 mg PO BIDCM Qty: 60 0RF ferrous sulfate [FeroSul] 325 mg (65 mg iron) Tablet 325 mg PO BIDCM Qty: 60 0RF Continued nitroglycerin 0.4 mg tablet, sublingual 0.4 mg SUBLINGUAL Q5M PRN (Reason: Chest Pain) Qty: 25 1RF levocetirizine [Xyzal] 5 mg tablet 5 mg PO DAILY pantoprazole 40 MG tablet 40 mg PO DAILY Label Comments: stomach acid ezetimibe 10 MG tablet 10 mg PO QHS Label Comments: cholesterol niacin (inositol niacinate) 500 MG capsule 1,000 mg PO BID furosemide [Lasix] 20 mg Tablet 10 mg PO DAILY PRN (Reason: Edema) clopidogrel 75 mg tablet 75 mg PO DAILY Hold Instructions: Hold until appointment with Dr. Montague. metoprolol tartrate 100 mg tablet 75 mg PO BID cholecalciferol (vitamin D3) [Vitamin D3] 125 mcg (5,000 unit) Tablet 125 mcg PO DAILY Referrals / Follow Up: Daisha Ramirez DO [Primary Care Provider] - Within 1 Week Bairon Montague DO [STAFF PHYSICIAN] - Within 1 Month Disposition Disposition (needs filled in before D/C Order can be placed): Home, Self Care Charges/Coding Visit Charges Inpatient E&M: 26890 Disch Hosp
--- NOTE | 2021-11-11 10:41 | PHA.DC.MC ---
Pharmacy Service has performed discharge medication reconciliation and counseling for this patient. 1. ASCORBIC ACID 250MG PO BIDCM 2. FERROUS SULFATE 325MG PO BIDCM The patient's discharge medication list was reviewed for discrepancies and discrepancies were resolved. Home Medications ezetimibe 10 mg tablet 10 mg PO QHS cholesterol 09/01/13 pantoprazole 40 mg tablet,delayed release 40 mg PO DAILY gerd 09/01/13 nitroglycerin 0.4 mg sublingual tablet 0.4 mg sublingual Q5M PRN Chest Pain #25 tabs 10/05/18 niacin (inositol niacinate) 500 mg capsule 1,000 mg PO BID supplement 04/12/19 furosemide 20 mg tablet (Lasix) 10 mg PO DAILY PRN Edema 12/15/20 clopidogrel 75 mg tablet 75 mg PO DAILY blood thinner 04/18/21 levocetirizine 5 mg tablet (Xyzal) 5 mg PO DAILY supplement 07/15/21 metoprolol tartrate 100 mg tablet 75 mg PO BID BP 09/17/21 cholecalciferol (vitamin D3) 125 mcg (5,000 unit) tablet (Vitamin D3) 125 mcg PO DAILY supplement 09/26/21 ascorbic acid (vitamin C) 500 mg tablet 250 mg PO BIDCM #60 tabs 11/11/21 ferrous sulfate 325 mg (65 mg iron) tablet (FeroSul) 325 mg PO BIDCM #60 tabs 11/11/21 The patient was counseled on the following discharge medications and changes in medications for homegoing were reviewed. The Reason for Use, instructions for use, and potential side effects were reviewed for all new medications. The patient's questions regarding all of their medications were answered. The patient was able to verbally demonstrate an understanding of their discharge medications.
[2021-11-11 10:43] VITALS: BP 165/55; PULSE 71; RESP 18; TEMP 36.5; O2SAT 96
== END 2021-11-11 13:30 | disposition home or self-care (01) | DRG 378 ==
LOC: ED 12:01 → PCU 18:15
PROVIDERS: Anesthesiology; Internal Medicine Gastroenterology; Admitting Provider Internal Medicine; Emergency Provider Student in an Organized Health Care Education/Training Program; PCP Internal Medicine; Visit Provider Family Medicine
PROC: 0DJ08ZZ Inspection of Upper Intestinal Tract, Via Natural or Artificial Opening Endoscopic (ICD-10-PCS; CPT 43235; principal; 2021-11-09 11:25)
PROC: 0FC98ZZ Extirpation of Matter from Common Bile Duct, Via Natural or Artificial Opening Endoscopic (ICD-10-PCS; CPT 43260; principal; 2021-11-10 13:55)
DX: K31.811 Angiodysplasia of stomach and duodenum with bleeding (principal); D62 Acute posthemorrhagic anemia; E44.0 Moderate protein-calorie malnutrition; K80.71 Calculus of gallbladder and bile duct without cholecystitis with obstruction; K83.8 Other specified diseases of biliary tract; I48.0 Paroxysmal atrial fibrillation; E11.9 Type 2 diabetes mellitus without complications; I10 Essential (primary) hypertension; E78.00 Pure hypercholesterolemia, unspecified; E78.5 Hyperlipidemia, unspecified; I25.10 Atherosclerotic heart disease of native coronary artery without angina pectoris; I35.0 Nonrheumatic aortic (valve) stenosis; K82.8 Other specified diseases of gallbladder; Z51.5 Encounter for palliative care; Z87.891 Personal history of nicotine dependence; Z79.02 Long term (current) use of antithrombotics/antiplatelets; R77.8 Other specified abnormalities of plasma proteins; Z66 Do not resuscitate; Z95.1 Presence of aortocoronary bypass graft; Z68.25 Body mass index [BMI] 25.0-25.9, adult
CPT/HCPCS: 36415; 74328; 76000; 76705; 80048; 80053; 83036; 83690; 84484; 85014; 85018; 85025; 85610; 85730; 86644; 86850; 86870; 86900; 86901; 86920; 86922; 87428; 93005; 97162; 97166; 97802; 99285; J7030; J7050; J7120; P9016; P9040; A4216; J2405

== ENCOUNTER 2021-12-07 17:57 | Emergency (ER) | payer MEDICARE, SELFPAY ==
[2021-12-07 18:00] VITALS: BP 155/65; PULSE 100; RESP 18; TEMP 35.9; O2SAT 100; BMI 24.9
[2021-12-07 18:52] VITALS: TEMP 36
[2021-12-07 19:02] LABS: Absolute Lymphocyte Count 1.11 X10^3/uL (0.83-4.51); Absolute Neutrophil Count 7.7 X10^3/uL (2.0-7.7); Basophil# 0.04 X10^3/uL; Basophil% 0.4 % (0-1); Eosinophil# 0.28 X10^3/uL; Eosinophils% 2.9 % (0-5); Hematocrit 27.5 % (37-47); Hemoglobin 7.9 g/dL (12.0-15.0); Lymphocyte # 1.11 X10^3/ul (0.83-4.51); Lymphocyte % 11.4 % (19-41); Mean Corp Hgb Conc 28.7 g/dL (32-36); Mean Corpuscular Hgb 24.5 pg (27.0-32.0); Mean Corpuscular Volume 85.1 fL (81-99); Mean Platelet Vol. 9.3 fl (6.2-12.0); Monocyte# 0.59 X10^3/uL; Monocyte% 6.1 % (0-10); NRBC Flagged by Analyzer 0 % (0-5); Neutrophil # 7.66 X10^3/uL (2.7-7.7); Neutrophil % 78.6 % (47-70); Platelet Count 431 K/mm3 (150-450); RBC Distribution Width CV 18.6 % (11.6-14.6); RBC Distribution Width SD 57.7 fl (35.1-43.9); Red Blood Count 3.23 M/mm3 (4.2-5.4); White Blood Count 9.7 K/mm3 (4.4-11.0)
[2021-12-07 19:21] LABS: ALB/GLOB Ratio 1.1 RATIO (0.9-2.4); AST(SGOT) 39 U/L (15-37); Alanine Aminotransfer ALT/SGPT 19 U/L (13-56); Albumin, Serum 3.5 g/dL (3.2-5.0); Alkaline Phosphatase 99 U/L (45-117); Anion Gap 6 (5-15); BUN 12 mg/dL (7-18); BUN/Creat Ratio 14.1 RATIO (10-20); Calcium,Total 8.7 mg/dL (8.5-10.1); Chloride 104 mmol/L (98-107); Creatinine, Serum 0.85 mg/dL (0.55-1.02); EST Glomerular Filtration Rate 68 mL/min (>60); Est Glom Filt Rate - Afr Amer 82 mL/min (>60); Estimated Creatinine Clearance 41.05 ml/min; Globulin 3.3 g/dL (2.2-4.2); Glucose 145 mg/dL (74-106); Potassium 3.6 mmol/L (3.5-5.1); Protein, Total 6.8 g/dL (6.4-8.2); Sodium Level 140 mmol/L (136-145)
--- NOTE | 2021-12-07 19:40 | US_ITS ---
STUDY: ABDOMINAL ULTRASOUND - RIGHT UPPER QUADRANT REASON FOR VISIT: Female, 81 years old pain TECHNIQUE: Ultrasound evaluation of the right upper quadrant was performed with real-time and static odonnell-scale imaging. TECHNICAL QUALITY: Adequate. COMPARISON: Gallbladder ultrasound and DOPPLER ultrasound November 10 and 11/07/2021. FINDINGS: Liver: The liver measures 14.9 cm. There is normal echogenicity of the liver. No definite dilated intrahepatic bile ducts. There is some increased echogenicity suggesting air, especially in the left hepatic lobe; likely pneumobilia. There is hepatic color flow. The direction of portal flow is hepatopetal. There is no demonstrated mass lesion. Gallbladder: Collapsed gallbladder. The gallbladder wall measures 1.1 mm. There is a negative sonographic Smith''s sign. There is no pericholecystic fluid. Echogenic, debris within the collapsed gallbladder without shadowing favored to represent sludge. Common Bile Duct (C.B.D.): The common bile duct measures dilated to 10 mm. Pancreas: No mass lesion or pancreatic ductal dilation exemplified. No peripancreatic fluid. Right Kidney: Normal size of the right kidney. No cortical thinning. No solid or cystic mass lesion. Normal color flow seen in the right renal hilum.. US/Gallbladder IMPRESSION: Common bile duct stent no longer present. 10 mm distention common bile duct. Echogenic foci left hepatic lobe following a expected course of the bile ducts likely representing some pneumobilia. No appreciable intrahepatic biliary ductal dilation. Electronically Signed: Donnie Childress DO at 21:55 EDT ,
--- NOTE | 2021-12-07 19:58 | EDS_ITS ---
HPI History of Present Illness Chief Complaint: Abd Pain Informant: patient Onset/Context/Timing Onset: Today Context: Sudden Onset Current Severity: Mild Maximum Severity: Severe Narrative Narrative: Presents secondary to abrupt onset of right upper quadrant abdominal pain. She is a history of gallstones and has previously had problems with stone stuck in duct requiring ERCP. This evening she had sudden onset of right upper quadrant pain. She states pain is improved at this time. No nausea or vomiting. She underwent mitral valve replacement 2 weeks ago. She is currently on aspirin and Plavix. [facility] Medical History Acute blood loss anemia Atherosclerotic heart disease of [place] coronary artery without angina pectoris Atypical chest pain Bilateral carotid artery stenosis Bilateral carotid bruits Biliary colic CAD (coronary artery disease) Carotid stenosis Cholelithiasis Jayson's syndrome Effusion, left knee Essential hypertension Former smoker Gallstones Gastrointestinal bleeding, upper GERD (gastroesophageal reflux disease) GI bleed History of left heart catheterization (LHC) (~07/14/20) HTN (hypertension) Hypertension Iron deficiency anemia due to chronic blood loss Near syncope Nonrheumatic aortic (valve) stenosis [place] (obstructive sleep apnea) Osteoarthritis Paroxysmal atrial fibrillation PND (post-nasal drip) Psoriasis Pure hypercholesterolemia Sleep disorder Sleep disorder breathing SOB (shortness of breath) on exertion TIA (transient ischemic attack) TIA (transient ischemic attack) Tobacco abuse Type 2 diabetes mellitus UGIB (upper gastrointestinal bleed) Home Medications ezetimibe 10 mg tablet 10 mg PO QHS cholesterol 09/01/13 [History Last Taken 08/25/21] pantoprazole 40 mg tablet,delayed release 40 mg PO DAILY gerd 09/01/13 [History Last Taken 08/27/21] nitroglycerin 0.4 mg sublingual tablet 0.4 mg sublingual Q5M PRN Chest Pain #25 tabs 10/05/18 [Rx Last Taken 04/12/19] niacin (inositol niacinate) 500 mg capsule 1,000 mg PO BID supplement 04/12/19 [History Last Taken 08/27/21] furosemide 20 mg tablet (Lasix) 10 mg PO DAILY PRN Edema 12/15/20 [History Last Taken 08/27/21] clopidogrel 75 mg tablet 75 mg PO DAILY blood thinner 04/18/21 [History Last Taken 08/27/21] levocetirizine 5 mg tablet (Xyzal) 5 mg PO DAILY supplement 07/15/21 [History Last Taken 08/26/21] cholecalciferol (vitamin D3) 125 mcg (5,000 unit) tablet (Vitamin D3) 125 mcg PO DAILY supplement 09/26/21 [History Last Taken Unknown] ascorbic acid (vitamin C) 500 mg tablet 250 mg PO BIDCM #60 tabs 11/11/21 [Rx Last Taken Unknown] ferrous sulfate 325 mg (65 mg iron) tablet (FeroSul) 325 mg PO BIDCM #60 tabs 11/11/21 [Rx Last Taken Unknown] aspirin 81 mg capsule 81 mg PO DAILY 12/07/21 [History Last Taken Unknown] Allergy/AdvReac Type Severity Reaction Status Date / Time Sulfa (Sulfonamide Allergy Severe HEART Verified 12/07/21 18:59 Antibiotics) RACING Latex, Natural Rubber Allergy Rash, Verified 12/07/21 18:59 psioriasis amoxicillin [From Augmentin] AdvReac Nausea Verified 12/07/21 18:59 atorvastatin [From Lipitor] AdvReac Other Verified 12/07/21 18:59 clavulanic acid AdvReac Nausea Verified 12/07/21 18:59 [From Augmentin] Iodinated Contrast Media AdvReac Other Verified 12/07/21 18:59 [CONTRASTS] lisinopril AdvReac Other Verified 12/07/21 18:59 niacin AdvReac Other Verified 12/07/21 18:59 [From Niaspan Extended-Release] red dye AdvReac NEEDS Verified 12/07/21 18:59 FOLLOW-UP rosuvastatin [From Crestor] AdvReac Other Verified 12/07/21 18:59 turkey AdvReac Rash Verified 12/07/21 18:59 Family History Mother Heart disease Diabetes Father Heart disease Cancer Sister Cancer COPD (chronic obstructive pulmonary disease) Surgical History History of aortic valve replacement with bioprosthetic valve (~09/06/13) History of bilateral carotid endarterectomy History of coronary artery bypass surgery (~09/06/13) History of left mastectomy (~1998) History of right mastectomy (~1998) History of tubal ligation Social History household members: none housing: house Smoking Status: Former smoker how long ago did patient quit smokin second hand exposure: No alcohol intake: never substance use type: does not use caffeine: Yes Type: coffee Number of servings: 2 and tea what type of physical activity do you participate in: none franci/jainism: Worship seatbelt use: always do you feel safe at home: Yes ROS ROS ED Constitutional Constitutional ED: Denies chills or fever(s) Eyes Eyes: Denies change in vision or discharge from eye(s) ENT ENT ED: Denies discharge from eye(s), rhinorrhea or sore throat Cardiovascular Cardiovascular: Denies chest pain or palpitations Respiratory/Chest Respiratory/Chest: Denies cough or dyspnea Gastrointestinal Gastrointestinal: Reports abdominal pain; Denies diarrhea, nausea or vomiting Genitourinary Genitourinary ED: Denies difficulty urinating or dysuria Musculoskeletal Musculoskeletal: Denies back pain or extremity pain Integumentary Denies Abrasions or rash Neurologic Neurologic: Denies headache(s) or weakness Allergic/Immunologic Allergic/Immunologic ED: Denies lip swelling or urticaria EXAM Physical Exam Const Vital Signs: 12/07/21 18:00 12/07/21 18:52 12/07/21 22:14 Temperature 96.6 F L 96.8 F L Temperature Source Temporal Temporal Pulse Rate 100 79 Respiratory Rate 18 18 Blood Pressure 155/65 H 132/60 H Blood Pressure Mean 95 84 Pulse Ox 100 95 Oxygen Delivery Method Room Air Room Air Positive well nourished and well developed General Appearance ED: well developed HEENT Reports normocephalic and head/scalp atraumatic Eyes PERRL and EOMs intact bilaterally Neck supple Chest Wall inspection of chest normal and palpation of chest normal Resp normal respiratory effort and clear to auscultation bilaterally Cardio regular rate and regular rhythm GI non-tender Auscultation: hypoactive bowel sounds Palpation: soft Extremity normal to inspection Neuro oriented x3 and no sensory deficits noted Sensorium / Orientation: alert Motor Exam: strength 5/5 throughout Psych mental status grossly normal Skin no rashes or lesions noted MDM MDM MDM Narrative Medical decision making narrative: Lab work obtained along with right upper quadrant ultrasound. Lab Data Attestation: I reviewed the patient's lab results. Labs: Laboratory Results - last 24 hr 12/07/21 12/07/21 18:52 18:52 WBC 9.7 RBC 3.23 L Hgb 7.9 L Hct 27.5 L MCV 85.1 MCH 24.5 L MCHC 28.7 L RDW Std Deviation 57.7 H RDW Coeff of Velasquez 18.6 H Plt Count 431 MPV 9.3 Immature Gran % (Auto) 0.600 Neut % (Auto) 78.6 H Lymph % (Auto) 11.4 L [place] % (Auto) 6.1 Eos % (Auto) 2.9 Baso % (Auto) 0.4 Absolute Neuts (auto) 7.7 Absolute Lymphs (auto) 1.11 Nucleated RBC % 0 Sodium 140 Potassium 3.6 Chloride 104 Carbon Dioxide 30.0 Anion Gap 6 BUN 12 Creatinine 0.85 Estim Creat Clear Calc 41.05 Est GFR (MDRD) Af Amer 82 Est GFR (MDRD) Non-Af 68 BUN/Creatinine Ratio 14.1 Glucose 145 H Calcium 8.7 Total Bilirubin 0.40 AST 39 H ALT 19 Alkaline Phosphatase 99 Total Protein 6.8 Albumin 3.5 Globulin 3.3 Albumin/Globulin Ratio 1.1 Radiography Diagnostic Testing: Clinical Impression(s) from Imaging Studies Gallbladder Ultrasound 12/07/21 19:40 IMPRESSION: Common bile duct stent no longer present. 10 mm distention common bile duct. Echogenic foci left hepatic lobe following a expected course of the bile ducts likely representing some pneumobilia. No appreciable intrahepatic biliary ductal dilation. Electronically Signed: Donnie Childress DO at 21:55 EDT , Treatment and Re-Evaluation Narrative: CBC significant for hemoglobin of 7.9. I was able to pull up prior records and hemoglobin was 8.6 when she was discharged in the [facility] on November 25. Chemistry studies unremarkable. LFTs at this time is normal. Right upper quadrant ultrasound reveals a 10 mm common bile duct. They do not appreciate any stone. The common bile duct stent that was previously in place is no longer present. Gallbladder is unremarkable. On repeat evaluation patient continues to feel well. She will be discharged to home. She will follow-up with Dr. Montague as needed. Discharge Plan Triage Chief Complaint: Abd Pain ED Provider: Anna Rincon Dx/Rx/DC Orders Clinical Impression: Abdominal pain, acute, right upper quadrant Instructions: ED Abdominal Pain Unkn Cause Fem Prescriptions: No Action nitroglycerin 0.4 mg tablet, sublingual 0.4 mg SUBLINGUAL Q5M PRN (Reason: Chest Pain) Qty: 25 1RF levocetirizine [Xyzal] 5 mg tablet 5 mg PO DAILY pantoprazole 40 MG tablet 40 mg PO DAILY Label Comments: stomach acid ezetimibe 10 MG tablet 10 mg PO QHS Label Comments: cholesterol niacin (inositol niacinate) 500 MG capsule 1,000 mg PO BID furosemide [Lasix] 20 mg Tablet 10 mg PO DAILY PRN (Reason: Edema) clopidogrel 75 mg tablet 75 mg PO DAILY Hold Instructions: Hold until appointment with Dr. Montague. cholecalciferol (vitamin D3) [Vitamin D3] 125 mcg (5,000 unit) Tablet 125 mcg PO DAILY ascorbic acid (vitamin C) 500 mg Tablet 250 mg PO BIDCM Qty: 60 0RF ferrous sulfate [FeroSul] 325 mg (65 mg iron) Tablet 325 mg PO BIDCM Qty: 60 0RF aspirin 81 mg Capsule 81 mg PO DAILY Primary Care Provider: Daisha Ramirez Referrals: Daisha Ramirez DO [Primary Care Provider] - Bairon Montague DO [Med Staff - Active Staff] - As Needed Disposition Disposition: Home, Self Care
[2021-12-07 22:14] VITALS: BP 132/60; PULSE 79; RESP 18; O2SAT 95
== END 2021-12-07 22:36 | disposition home or self-care (01) ==
PROVIDERS: Emergency Provider Emergency Medicine; PCP Internal Medicine; Visit Provider Emergency Medicine
DX: R10.11 Right upper quadrant pain (principal); I48.0 Paroxysmal atrial fibrillation; E11.9 Type 2 diabetes mellitus without complications; I25.10 Atherosclerotic heart disease of native coronary artery without angina pectoris; Z87.891 Personal history of nicotine dependence; I10 Essential (primary) hypertension; E78.00 Pure hypercholesterolemia, unspecified; Z79.82 Long term (current) use of aspirin; G47.33 Obstructive sleep apnea (adult) (pediatric); Z86.73 Personal history of transient ischemic attack (TIA), and cerebral infarction without residual deficits
CPT/HCPCS: 76705; 80053; 85025; 99285; A4216

== ENCOUNTER → 2021-12-24 | Outpatient (CLI) | payer MEDICARE, SELFPAY ==
--- NOTE | 2021-12-24 12:37 | RAD_ITS ---
STUDY: X-RAY - UNILATERAL RIBS ( RIGHT ) REASON FOR EXAM: Female, 81 years old. PAIN following injury. TECHNIQUE: 2 view(s) of the ribs. COMPARISON: None. FINDINGS: Surgical clips are seen in the right axilla. Normal visualized ribs without a demonstrated fracture. Prior midline sternotomy and aortic valve replacement RAD/Ribs Unil 2V No CXR IMPRESSION: No rib fracture is seen. Electronically Signed: Manolo Sierra MD at 13:25 EDT ,
[2021-12-24 14:58] LABS: Absolute Lymphocyte Count 0.91 X10^3/uL (0.83-4.51); Absolute Neutrophil Count 7.3 X10^3/uL (2.0-7.7); Basophil# 0.04 X10^3/uL; Basophil% 0.4 % (0-1); Eosinophil# 0.19 X10^3/uL; Hematocrit 25.6 % (37-47); Hemoglobin 7.1 g/dL (12.0-15.0); Lymphocyte # 0.91 X10^3/ul (0.83-4.51); Lymphocyte % 9.7 % (19-41); Mean Corp Hgb Conc 27.7 g/dL (32-36); Mean Corpuscular Hgb 23.3 pg (27.0-32.0); Mean Corpuscular Volume 83.9 fL (81-99); Mean Platelet Vol. 10.1 fl (6.2-12.0); Monocyte# 0.87 X10^3/uL; Monocyte% 9.3 % (0-10); NRBC Flagged by Analyzer 0 % (0-5); Neutrophil # 7.29 X10^3/uL (2.7-7.7); Neutrophil % 78.2 % (47-70); Platelet Count 274 K/mm3 (150-450); RBC Distribution Width CV 17.3 % (11.6-14.6); RBC Distribution Width SD 53.1 fl (35.1-43.9); Red Blood Count 3.05 M/mm3 (4.2-5.4); White Blood Count 9.3 K/mm3 (4.4-11.0)
== END | disposition home or self-care (01) ==
PROVIDERS: PCP Internal Medicine; Referring Provider Internal Medicine; Visit Provider Internal Medicine
DX: R07.81 Pleurodynia (principal); D64.9 Anemia, unspecified
CPT/HCPCS: 36415; 71100; 85025

== ENCOUNTER 2021-12-29 17:09 | Inpatient (IN) | payer MEDICARE, SELFPAY ==
[2021-12-29 17:11] VITALS: BP 162/71; PULSE 106; RESP 16; TEMP 36.8; O2SAT 99; BMI 24.8
--- NOTE | 2021-12-29 18:00 | EDS_ITS ---
HPI History of Present Illness Chief Complaint: Abn Labs Informant: patient Narrative Narrative: 81-year-old female presents to the emergency department stating that she was sent here by her customer experience strategist for abnormal labs. Reportedly she has a hemoglobin of 7.1. Patient is a poor historian. Initially I asked her why she was here she stated because she had a valve replacement at the [facility]. Then she started talking about her biliary stent needing to be changed and her continued right upper quadrant pain. And then she mentions her low hemoglobin. When asked what the plan was she does not know. Unfortunately I have not been notified of a plan either. She then tells me to look in the computer because everything will be in there. I informed her that there are times when the computer system is down or the power is out we can get to the computer said not to rely on that for her health safety. [facility] Medical History Acute blood loss anemia Atherosclerotic heart disease of [place] coronary artery without angina pectoris Atypical chest pain Bilateral carotid artery stenosis Bilateral carotid bruits Biliary colic CAD (coronary artery disease) Carotid stenosis Cholelithiasis Jayson's syndrome Effusion, left knee Essential hypertension Former smoker Gallstones Gastrointestinal bleeding, upper GERD (gastroesophageal reflux disease) GI bleed History of left heart catheterization (LHC) (~07/14/20) HTN (hypertension) Hypertension Iron deficiency anemia due to chronic blood loss Near syncope Nonrheumatic aortic (valve) stenosis [place] (obstructive sleep apnea) Osteoarthritis Paroxysmal atrial fibrillation PND (post-nasal drip) Psoriasis Pure hypercholesterolemia Sleep disorder Sleep disorder breathing SOB (shortness of breath) on exertion TIA (transient ischemic attack) TIA (transient ischemic attack) Tobacco abuse Type 2 diabetes mellitus UGIB (upper gastrointestinal bleed) Home Medications ezetimibe 10 mg tablet 10 mg PO QHS cholesterol 09/01/13 [History Last Taken 08/25/21] pantoprazole 40 mg tablet,delayed release 40 mg PO DAILY gerd 09/01/13 [History Last Taken 08/27/21] nitroglycerin 0.4 mg sublingual tablet 0.4 mg sublingual Q5M PRN Chest Pain #25 tabs 10/05/18 [Rx Last Taken 04/12/19] niacin (inositol niacinate) 500 mg capsule 1,000 mg PO BID supplement 04/12/19 [History Last Taken 08/27/21] furosemide 20 mg tablet (Lasix) 10 mg PO DAILY PRN Edema 12/15/20 [History Last Taken 08/27/21] clopidogrel 75 mg tablet 75 mg PO DAILY blood thinner 04/18/21 [History Last Taken 08/27/21] levocetirizine 5 mg tablet (Xyzal) 5 mg PO DAILY supplement 07/15/21 [History Last Taken 08/26/21] cholecalciferol (vitamin D3) 125 mcg (5,000 unit) tablet (Vitamin D3) 125 mcg PO DAILY supplement 09/26/21 [History Last Taken Unknown] ascorbic acid (vitamin C) 500 mg tablet 250 mg PO BIDCM #60 tabs 11/11/21 [Rx Last Taken Unknown] ferrous sulfate 325 mg (65 mg iron) tablet (FeroSul) 325 mg PO BIDCM #60 tabs 11/11/21 [Rx Last Taken Unknown] aspirin 81 mg capsule 81 mg PO DAILY 12/07/21 [History Last Taken Unknown] Allergy/AdvReac Type Severity Reaction Status Date / Time Sulfa (Sulfonamide Allergy Severe HEART Verified 12/29/21 17:11 Antibiotics) RACING Latex, Natural Rubber Allergy Rash, Verified 12/29/21 17:11 psioriasis amoxicillin [From Augmentin] AdvReac Nausea Verified 12/29/21 17:11 atorvastatin [From Lipitor] AdvReac Other Verified 12/29/21 17:11 clavulanic acid AdvReac Nausea Verified 12/29/21 17:11 [From Augmentin] Iodinated Contrast Media AdvReac Other Verified 12/29/21 17:11 [CONTRASTS] lisinopril AdvReac Other Verified 12/29/21 17:11 niacin AdvReac Other Verified 12/29/21 17:11 [From Niaspan Extended-Release] red dye AdvReac NEEDS Verified 12/29/21 17:11 FOLLOW-UP rosuvastatin [From Crestor] AdvReac Other Verified 12/29/21 17:11 turkey AdvReac Rash Verified 12/29/21 17:11 Family History Mother Heart disease Diabetes Father Heart disease Cancer Sister Cancer COPD (chronic obstructive pulmonary disease) Surgical History History of aortic valve replacement with bioprosthetic valve (~09/06/13) History of bilateral carotid endarterectomy History of coronary artery bypass surgery (~09/06/13) History of left mastectomy (~1998) History of right mastectomy (~1998) History of tubal ligation Social History household members: none housing: house Smoking Status: Former smoker how long ago did patient quit smokin second hand exposure: No alcohol intake: never substance use type: does not use caffeine: Yes Type: coffee Number of servings: 2 and tea what type of physical activity do you participate in: none franci/restoration: Orthodoxy seatbelt use: always do you feel safe at home: Yes ROS ROS ED Constitutional Constitutional ED: Denies chills or weight loss Eyes Eyes: Denies blurry vision, change in vision or diplopia ENT ENT ED: Denies ear pain, rhinorrhea or sore throat Cardiovascular Cardiovascular: Denies chest pain, orthopnea, palpitations or racing heartbeat Respiratory/Chest Respiratory/Chest: Denies cough, dyspnea or orthopnea Gastrointestinal Gastrointestinal: Reports abdominal pain and other Details: Denies black or bloody stools ; Denies diarrhea, melena, nausea or vomiting Genitourinary Genitourinary ED: Denies dysuria, hematuria or urinary frequency Musculoskeletal Musculoskeletal: Denies arthralgias or myalgias Integumentary Denies abscess or rash Neurologic Neurologic: Denies headache(s) or weakness Psychiatric Psychiatric: Denies anxiety, depression, suicidal ideation or suicidal thoughts Endocrine Endocrinology: Denies polydipsia, polyphagia or polyuria Allergic/Immunologic Allergic/Immunologic ED: Denies mouth swelling, tongue swelling or urticaria EXAM Physical Exam Const Vital Signs: 12/29/21 17:11 Temperature 98.2 F Temperature Source Temporal Pulse Rate 106 H Respiratory Rate 16 Blood Pressure 162/71 H Blood Pressure Mean 101 Pulse Ox 99 Oxygen Delivery Method Room Air Positive well nourished and well developed General Appearance ED: well developed HEENT Reports normocephalic, head/scalp atraumatic and moist mucous membranes Eyes PERRL and EOMs intact bilaterally Neck no lymphadenopathy, supple and no JVD Resp normal respiratory effort and clear to auscultation bilaterally Cardio regular rate, regular rhythm and no murmurs GI Palpation: soft and tender RUQ; Negative for guarding or rebound tenderness present Back/Spine no CVA tenderness and normal ROM Extremity normal to inspection General Extremety ED: Negative for edema General Extremity: Negative for edema Neuro oriented x3 and CN's II-XII intact bilaterally Sensorium / Orientation: alert Motor Exam: strength 5/5 throughout Psych mental status grossly normal Mood & Affect: Negative for depressed or tearful Skin no rashes or lesions noted and no wounds MDM MDM MDM Narrative Medical decision making narrative: Hemoglobin today is 6.3. Normal coags. She is however on Plavix. CMP shows no elevation in transaminases and her lipase is normal. Her white count is 7.9. Patient was typed and crossed for [address] Montague plan is admission for transfusion. I do not think the patient needs an emergent gallbladder ultrasound as we already know she has gallbladder disease and her white count is normal liver enzymes and lipase are normal. Lab Data Attestation: I reviewed the patient's lab results. Labs: Laboratory Results - last 24 hr 12/29/21 12/29/21 12/29/21 17:50 17:50 17:50 WBC 7.9 RBC 2.67 L Hgb 6.3 L Hct 22.0 L MCV 82.4 MCH 23.6 L MCHC 28.6 L RDW Std Deviation 51.1 H RDW Coeff of Velasquez 17.2 H Plt Count 356 MPV 10.1 Immature Gran % (Auto) 0.500 Neut % (Auto) 73.3 H Lymph % (Auto) 14.8 L [place] % (Auto) 7.5 Eos % (Auto) 3.5 Baso % (Auto) 0.4 Absolute Neuts (auto) 5.8 Absolute Lymphs (auto) 1.17 Nucleated RBC % 0 PT 14.0 INR 1.1 APTT 30.3 Sodium 141 Potassium 4.4 Chloride 105 Carbon Dioxide 32.0 Anion Gap 4 L BUN 19 H Creatinine 0.94 Estim Creat Clear Calc 37.12 Est GFR (MDRD) Af Amer 74 Est GFR (MDRD) Non-Af 61 BUN/Creatinine Ratio 20.3 H Glucose 126 H Calcium 9.5 Total Bilirubin 0.30 Direct Bilirubin 0.10 AST 16 ALT 15 Alkaline Phosphatase 66 Total Protein 6.8 Albumin 3.5 Globulin 3.3 Amylase 55 Lipase 205 Discharge Plan Dx/Rx/DC Orders Clinical Impression: Biliary colic, Duodenal arteriovenous malformation, Gastric AVM, Anemia requiring transfusions, History of heart valve replacement Disposition Disposition: Acute Care Hospital [facility]
[2021-12-29] MEDS: Ondansetron 4 MG/2 ML Vial IV (18:08)
[2021-12-29] MEDS: Morphine 2 MG/ML Syringe IV (18:09)
--- NOTE | 2021-12-29 18:10 | ED.RN ---
Basali reduced pt pump by half.
[2021-12-29 18:29] LABS: Absolute Lymphocyte Count 1.17 X10^3/uL (0.83-4.51); Absolute Neutrophil Count 5.8 X10^3/uL (2.0-7.7); Basophil# 0.03 X10^3/uL; Basophil% 0.4 % (0-1); Eosinophil# 0.28 X10^3/uL; Eosinophils% 3.5 % (0-5); Hemoglobin 6.3 g/dL (12.0-15.0); Lymphocyte # 1.17 X10^3/ul (0.83-4.51); Lymphocyte % 14.8 % (19-41); Mean Corp Hgb Conc 28.6 g/dL (32-36); Mean Corpuscular Hgb 23.6 pg (27.0-32.0); Mean Corpuscular Volume 82.4 fL (81-99); Mean Platelet Vol. 10.1 fl (6.2-12.0); Monocyte# 0.59 X10^3/uL; Monocyte% 7.5 % (0-10); NRBC Flagged by Analyzer 0 % (0-5); Neutrophil % 73.3 % (47-70); Platelet Count 356 K/mm3 (150-450); RBC Distribution Width CV 17.2 % (11.6-14.6); RBC Distribution Width SD 51.1 fl (35.1-43.9); Red Blood Count 2.67 M/mm3 (4.2-5.4); White Blood Count 7.9 K/mm3 (4.4-11.0)
[2021-12-29 18:37] LABS: International Normalized Ratio 1.1
[2021-12-29 18:38] LABS: Partial Thromboplast Time 30.3 Seconds (24.1-36.2)
[2021-12-29 18:45] LABS: AST(SGOT) 16 U/L (15-37); Alanine Aminotransfer ALT/SGPT 15 U/L (13-56); Albumin, Serum 3.5 g/dL (3.2-5.0); Alkaline Phosphatase 66 U/L (45-117); Amylase 55 U/L (25-115); Anion Gap 4 (5-15); BUN 19 mg/dL (7-18); BUN/Creat Ratio 20.3 RATIO (10-20); Calcium,Total 9.5 mg/dL (8.5-10.1); Chloride 105 mmol/L (98-107); Creatinine, Serum 0.94 mg/dL (0.55-1.02); EST Glomerular Filtration Rate 61 mL/min (>60); Est Glom Filt Rate - Afr Amer 74 mL/min (>60); Estimated Creatinine Clearance 37.12 ml/min; Globulin 3.3 g/dL (2.2-4.2); Glucose 126 mg/dL (74-106); Lipase 205 U/L (73-393); Potassium 4.4 mmol/L (3.5-5.1); Protein, Total 6.8 g/dL (6.4-8.2); Sodium Level 141 mmol/L (136-145)
--- NOTE | 2021-12-29 19:41 | HP.PCM.HOS_ITS ---
HPI - General General Date of Admission: 12/29/21 Date of Service: 12/29/21 Chief Complaint: abnormal labs HPI Narrative SAMMY SOLOMON, is a 81 F with a PMH as outlined who presents via the ED on 12/29/2021 with a complaint of abnormal labs. She went to see her nurse esthetician today due to her history of AVMs in the stomach and duodenum. She had bloodwork last week and her Hb was 7.1; her hb today came back at 6.6. She has had 2 aortic valve repairs at [facility], with the most recent being in November 2021. She also has a biliary stent in place. SHe denies fever, chills, cough, chest pain, palpitations, dizziness, nausea, vomiting or diarrhea or any melena or hematochezia or coffee ground emesis. Review of systems was otherwise negative. Vitals in the ED were BP of 162/71, PA of 106, RR of 16 and temp of 98.2F with saturation of 99% on room air. CBC showed hemoglobin of 6.3 with WBC of 7.9 and platelets of 356. Chemistry was essentially unremarkable with BUN of 19 and creatinine of 20.4. Review of previous records showed gallbladder ultrasound on 2021 L which showed common bile duct stent no longer present and a 10 mm distention of the common bile duct with echogenic foci in the left hepatic lobe likely representing some pneumobilia and no appreciable intrahepatic biliary ductal dilatation. He has been admitted to be managed for acute on chronic anemia likely due to bleeding from AVMs. Gastroenterology referred to the ED, and per ED doctor, nurse esthetician said there was not much that could be done for her here performed transfusion. [facility] Medical History Acute blood loss anemia Atherosclerotic heart disease of [place] coronary artery without angina pectoris Atypical chest pain Bilateral carotid artery stenosis Bilateral carotid bruits Biliary colic CAD (coronary artery disease) Carotid stenosis Cholelithiasis Jayson's syndrome Effusion, left knee Essential hypertension Former smoker Gallstones Gastrointestinal bleeding, upper GERD (gastroesophageal reflux disease) GI bleed History of left heart catheterization (LHC) (~07/14/20) HTN (hypertension) Hypertension Iron deficiency anemia due to chronic blood loss Near syncope Nonrheumatic aortic (valve) stenosis [place] (obstructive sleep apnea) Osteoarthritis Paroxysmal atrial fibrillation PND (post-nasal drip) Psoriasis Pure hypercholesterolemia Sleep disorder Sleep disorder breathing SOB (shortness of breath) on exertion TIA (transient ischemic attack) TIA (transient ischemic attack) Tobacco abuse Type 2 diabetes mellitus UGIB (upper gastrointestinal bleed) Home Medications ezetimibe 10 mg tablet 10 mg PO QHS cholesterol 09/01/13 [History Last Taken 12/28/21] pantoprazole 40 mg tablet,delayed release 40 mg PO DAILY gerd 09/01/13 [History Last Taken 12/29/21] nitroglycerin 0.4 mg sublingual tablet 0.4 mg sublingual Q5M PRN Chest Pain #25 tabs 10/05/18 [Rx Last Taken 04/12/19] niacin (inositol niacinate) 500 mg capsule 1,000 mg PO BID supplement 04/12/19 [History Last Taken 12/29/21] furosemide 20 mg tablet (Lasix) 20 mg PO DAILY FLUID 12/15/20 [History Last Taken 08/27/21] clopidogrel 75 mg tablet 75 mg PO DAILY blood thinner 04/18/21 [History Last Taken 12/29/21] levocetirizine 5 mg tablet (Xyzal) 5 mg PO DAILY supplement 07/15/21 [History Last Taken 12/28/21] cholecalciferol (vitamin D3) 125 mcg (5,000 unit) tablet (Vitamin D3) 125 mcg PO DAILY supplement 09/26/21 [History Last Taken 12/29/21] ascorbic acid (vitamin C) 1,000 mg tablet 1 g PO DAILY SUPPLEMENT 12/29/21 [History Last Taken 12/29/21] aspirin 81 mg tablet,delayed release 81 mg PO DAILY HEALTH MAINTENANCE 12/29/21 [History Last Taken 12/28/21] cyanocobalamin (vitamin B-12) 1,000 mcg tablet 1,000 mcg PO DAILY SUPPLEMENT 12/29/21 [History Last Taken 12/29/21] ferrous sulfate 325 mg (65 mg iron) tablet (FeroSul) 325 mg PO BIDCM SUPPLEMENT 12/29/21 [History Last Taken Unknown] Allergy/AdvReac Type Severity Reaction Status Date / Time Sulfa (Sulfonamide Allergy Severe HEART Verified 12/29/21 17:11 Antibiotics) RACING Latex, Natural Rubber Allergy Rash, Verified 12/29/21 17:11 psioriasis amoxicillin [From Augmentin] AdvReac Nausea Verified 12/29/21 17:11 atorvastatin [From Lipitor] AdvReac Other Verified 12/29/21 17:11 clavulanic acid AdvReac Nausea Verified 12/29/21 17:11 [From Augmentin] Iodinated Contrast Media AdvReac Other Verified 12/29/21 17:11 [CONTRASTS] lisinopril AdvReac Other Verified 12/29/21 17:11 niacin AdvReac Other Verified 12/29/21 17:11 [From Niaspan Extended-Release] red dye AdvReac NEEDS Verified 12/29/21 17:11 FOLLOW-UP rosuvastatin [From Crestor] AdvReac Other Verified 12/29/21 17:11 turkey AdvReac Rash Verified 12/29/21 17:11 Family History Mother Heart disease Diabetes Father Heart disease Cancer Sister Cancer COPD (chronic obstructive pulmonary disease) Surgical History History of aortic valve replacement with bioprosthetic valve (~09/06/13) History of bilateral carotid endarterectomy History of coronary artery bypass surgery (~09/06/13) History of left mastectomy (~1998) History of right mastectomy (~1998) History of tubal ligation Social History household members: none housing: house Smoking Status: Former smoker how long ago did patient quit smokin second hand exposure: No alcohol intake: never substance use type: does not use caffeine: Yes Type: coffee Number of servings: 2 and tea what type of physical activity do you participate in: none franci/adventism: Hinduism seatbelt use: always do you feel safe at home: Yes ROS Constitutional Constitutional: Denies anorexia, change in weight, chills, fatigue, fever(s), malaise or weakness Eyes Eyes: Denies change in vision ENT HEENT: Denies dysphagia, headache(s), nasal congestion or sore throat Cardiovascular Cardiovascular: Denies chest pain, dyspnea on exertion, edema, lightheadedness, orthopnea, palpitations, paroxysmal nocturnal dyspnea, rapid heart rate or syncope Respiratory/Chest Respiratory/Chest: Denies cough, dyspnea, shortness of breath at rest or shortness of breath with exertion Gastrointestinal Gastrointestinal: Reports abdominal pain; Denies constipation, diarrhea, dyspepsia, hematemesis, hematochezia, loose stools, melena, nausea or vomiting Genitourinary Genitourinary: Denies burning urination or dysuria Musculoskeletal Musculoskeletal: Denies arthralgias, back pain or joint pain Neurologic Neurologic: Denies confusion, dizziness, focal weakness or headache(s) Psychiatric Psychiatric: Denies anxiety Endocrine Endocrinology: Denies change in body appearance Vital Signs Vital Signs Vital Signs: 12/29/21 17:11 Temperature 98.2 F Temperature Source Temporal Pulse Rate 106 H Respiratory Rate 16 Blood Pressure 162/71 H Blood Pressure Mean 101 Pulse Ox 99 Oxygen Delivery Method Room Air Weight Weight: 135 lb 12.876 oz Body Mass Index (BMI) 24.8 Physical Exam Const alert, oriented x3 and no apparent distress General Appearance: cooperative HEENT normocephalic, head/scalp atraumatic, hearing grossly normal bilaterally and moist oral mucous membranes Mouth: oral and palatal mucosa normal Eyes PERRL, EOMs intact bilaterally and conjunctivae normal Neck no lymphadenopathy, supple and no JVD Resp normal respiratory effort, no retractions, no use of accessory muscles and clear to auscultation bilaterally Cardio regular rhythm, S1 normal heart sound, S2 normal heart sound and no murmurs Cardio Narrative: tachycardic GI normal to inspection, nondistended, normoactive bowel sounds, soft to palpation, non-tender and non-distended Extremity normal to inspection, full ROM and no clubbing, cyanosis or edema Neuro oriented x3, CN's II-XII intact bilaterally, moves all extremities and no focal motor deficits Sensorium / Orientation: awake and alert Motor Exam: strength 5/5 throughout Psych affect normal Results Lab / Micro Data Result Diagrams: 12/30/21 05:38 12/29/21 17:50 Labs: Laboratory Results - last 24 hr 12/29/21 17:50: WBC 7.9, RBC 2.67 L, Hgb 6.3 L, Hct 22.0 L, MCV 82.4, MCH 23.6 L , MCHC 28.6 L, RDW Std Deviation 51.1 H, RDW Coeff of Velasquez 17.2 H, Plt Count 356, MPV 10.1, Immature Gran % (Auto) 0.500, Neut % (Auto) 73.3 H, Lymph % (Auto) 14.8 L, [place] % (Auto) 7.5, Eos % (Auto) 3.5, Baso % (Auto) 0.4, Absolute Neuts (auto) 5.8, Absolute Lymphs (auto) 1.17, Nucleated RBC % 0 12/29/21 17:50: PT 14.0, INR 1.1, APTT 30.3 12/29/21 17:50: Sodium 141, Potassium 4.4, Chloride 105, Carbon Dioxide 32.0, Anion Gap 4 L, BUN 19 H, Creatinine 0.94, Estim Creat Clear Calc 37.12, Est GFR (MDRD) Af Amer 74, Est GFR (MDRD) Non-Af 61, BUN/Creatinine Ratio 20.3 H, Glucose 126 H, Calcium 9.5, Total Bilirubin 0.30, Direct Bilirubin 0.10, AST 16, ALT 15, Alkaline Phosphatase 66, Total Protein 6.8, Albumin 3.5, Globulin 3.3, Amylase 55, Lipase 205 Assessment & Plan Assessment/Plan (1) Anemia requiring transfusions: (2) Anemia: PLAN: Plan #Acute on chronic anemia likely due to bleeding from AV malformations * admit to PCU * Hb is 6.3 * transfuse with 2 units of PRBCs * consult gastroenterology * hold aspirin and plavix * EGD done in October 2019 showed normal esophagus and stomach and duodenal forign body as well as 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 * says GI has told her it will be better for her to have the cholecystectomy done at [facility] or a tertiary facility due to her aortic valve replacement. * #CAD s/p CABG * aspirin and plavix held due to acute on chronic anemia #Aortic valve disease with valve replacement x 2 * had second valve replacement done in November 2021 * #Paroxysmal afib * mildly tachycardic today * not on anticoagulation in light of recurrent bleeding * #Hyperlipidemia: on ezetimibe. Allergic to statin #Carotid artery disease s/p bilateral CEA. Stable DVT prophylaxis: SCDs. No anticoagulation o/a of recurrent anemia requiring transfusions #GI prophylaxis: on PPI Code status: full code * Patient counseled extensively about different types of CODE STATUS including full code, DNR CCA and DNR CCA. Patient elects to be full code. * Total [id number] time 16 minutes. 12/30/2021 6:30am: I was informed this morning by nursing that patient hadnt received the blood yet as she had a lot of antiboidies in her blood, and so needed to get blood from the [facility] Charges/Coding Visit Charges Inpatient E&M: 28407 Init Hosp L3 Procedures Hospitalists Procedures: 16974 Advncd Care Plan 30 Min
[2021-12-29 20:44] VITALS: BP 162/71; PULSE 106; RESP 16; TEMP 36.8; O2SAT 99
[2021-12-29 20:48] VITALS: PULSE 101; BMI 22.1
[2021-12-29] MEDS: 0.9% Normal Saline 1,000 ML 125 ML IV (21:22)
[2021-12-29 21:35] VITALS: BP 132/58; PULSE 103; RESP 18; TEMP 36.6; O2SAT 100
[2021-12-30] VITALS (21 sets, daily range): BP systolic 108–140; BP diastolic 50–82; PULSE 81–99; RESP 14–18; TEMP 36.2–37.1; O2SAT 96–100
[2021-12-30] MEDS: 0.9% Normal Saline 1,000 ML 125 ML IV (05:28)
[2021-12-30 06:14] LABS: Absolute Lymphocyte Count 0.92 X10^3/uL (0.83-4.51); Absolute Neutrophil Count 4.4 X10^3/uL (2.0-7.7); Basophil# 0.04 X10^3/uL; Basophil% 0.6 % (0-1); Eosinophil# 0.33 X10^3/uL; Eosinophils% 5.2 % (0-5); Hematocrit 19.1 % (37-47); Hemoglobin 5.3 g/dL (12.0-15.0); Lymphocyte # 0.92 X10^3/ul (0.83-4.51); Lymphocyte % 14.6 % (19-41); Mean Corp Hgb Conc 27.7 g/dL (32-36); Mean Corpuscular Hgb 23.5 pg (27.0-32.0); Mean Corpuscular Volume 84.5 fL (81-99); Mean Platelet Vol. 9.7 fl (6.2-12.0); Monocyte% 9.5 % (0-10); NRBC Flagged by Analyzer 0.3 % (0-5); Neutrophil # 4.39 X10^3/uL (2.7-7.7); Neutrophil % 69.6 % (47-70); POSITIVE COUNT YES; Platelet Count 273 K/mm3 (150-450); RBC Distribution Width CV 17.3 % (11.6-14.6); RBC Distribution Width SD 53.9 fl (35.1-43.9); Red Blood Count 2.26 M/mm3 (4.2-5.4); White Blood Count 6.3 K/mm3 (4.4-11.0)
[2021-12-30 06:21] LABS: Differential Indicated SCAN CRITERIA MET
[2021-12-30 06:33] LABS: Anisocytosis 2+; Polychromasia RARE
[2021-12-30 06:43] LABS: Anion Gap 6 (5-15); BUN 16 mg/dL (7-18); BUN/Creat Ratio 20.6 RATIO (10-20); Calcium,Total 8.2 mg/dL (8.5-10.1); Chloride 108 mmol/L (98-107); Creatinine, Serum 0.78 mg/dL (0.55-1.02); EST Glomerular Filtration Rate 76 mL/min (>60); Est Glom Filt Rate - Afr Amer 92 mL/min (>60); Glucose 86 mg/dL (74-106); Potassium 4.4 mmol/L (3.5-5.1); Sodium Level 142 mmol/L (136-145)
--- NOTE | 2021-12-30 08:00 | PCM.PN.HOSP ---
Subjective Subjective Patient is an 81-year-old lady who was sent to the ED by GI on account of low hemoglobin Objective Data Objective Data Vital Signs: Vital Signs Temp Pulse Resp BP Pulse Ox O2 Del Method 97.8 F 89 18 137/66 H 98 Room Air 12/30/21 03:26 12/30/21 07:07 12/30/21 03:26 12/30/21 03:26 12/30/21 03:26 12/30/21 03:26 Oxygen Delivery Method Room Air Weight: 54.9 kg Body Mass Index (BMI) 22.1 Intake & Output: Intake and Output for Last 24 Hours 12/28/21 12/29/21 12/30/21 23:59 23:59 23:59 Intake Total 1000 / 1000 Balance 1000 / 1000 Lab / Micro Data Result Diagrams: 12/30/21 05:38 12/30/21 05:38 Labs: Laboratory Results - last 24 hr 12/29/21 17:50: WBC 7.9, RBC 2.67 L, Hgb 6.3 L, Hct 22.0 L, MCV 82.4, MCH 23.6 L, MCHC 28.6 L, RDW Std Deviation 51.1 H, RDW Coeff of Velasquez 17.2 H, Plt Count 356, MPV 10.1, Immature Gran % (Auto) 0.500, Neut % (Auto) 73.3 H, Lymph % (Auto) 14.8 L, [place] % (Auto) 7.5, Eos % (Auto) 3.5, Baso % (Auto) 0.4, Absolute Neuts (auto) 5.8, Absolute Lymphs (auto) 1.17, Nucleated RBC % 0 12/29/21 17:50: PT 14.0, INR 1.1, APTT 30.3 12/29/21 17:50: Sodium 141, Potassium 4.4, Chloride 105, Carbon Dioxide 32.0, Anion Gap 4 L, BUN 19 H, Creatinine 0.94, Estim Creat Clear Calc 37.12, Est GFR (MDRD) Af Amer 74, Est GFR (MDRD) Non-Af 61, BUN/Creatinine Ratio 20.3 H, Glucose 126 H, Calcium 9.5, Total Bilirubin 0.30, Direct Bilirubin 0.10, AST 16, ALT 15, Alkaline Phosphatase 66, Total Protein 6.8, Albumin 3.5, Globulin 3.3, Amylase 55, Lipase 205 12/29/21 17:50: Blood Type A POSITIVE 12/29/21 17:50: Crossmatch See Detail 12/30/21 05:38: WBC 6.3, RBC 2.26 L, Hgb 5.3 L*, Hct 19.1 L, MCV 84.5, MCH 23.5 L, MCHC 27.7 L, RDW Std Deviation 53.9 H, RDW Coeff of Velasquez 17.3 H, Plt Count 273, MPV 9.7, Immature Gran % (Auto) 0.500, Neut % (Auto) 69.6, Lymph % (Auto) 14.6 L, [place] % (Auto) 9.5, Eos % (Auto) 5.2 H, Baso % (Auto) 0.6, Absolute Neuts (auto) 4.4, Absolute Lymphs (auto) 0.92, Nucleated RBC % 0.3, Diff Path Review May foll, Polychromasia RARE, Anisocytosis 2+ 12/30/21 05:38: Sodium 142, Potassium 4.4, Chloride 108 H, Carbon Dioxide 28.0, Anion Gap 6, BUN 16, Creatinine 0.78, Estim Creat Clear Calc 34.90, Est GFR (MDRD) Af Amer 92, Est GFR (MDRD) Non-Af 76, BUN/Creatinine Ratio 20.6 H, Glucose 86, Calcium 8.2 L Physical Exam Narrative GENERAL: cooperative HEENT: Atraumatic; EYES; Anicteric, Normal Conjunctiva NECK; supple, normal thyroid, RESPIRATORY: Diminished to auscultation CARDIOVASCULAR: Regular S1 S2, GI: soft, normoactive bowel sounds, : No Renal angle tenderness; EXTREMITIES: No edema, no clubbing, MUSCULOSKELETAL: no muscle wasting NEURO: Awake; no lateralizing signs. SKIN: No Rash PSYCH; Flat affect Assessment & Plan Assessment/Plan (1) Anemia requiring transfusions: (2) Anemia: PLAN: Plan Patient is an 81-year-old lady who was sent to the ED by GI on account of low hemoglobin 1. Acute on chronic anemia ? Patient hemoglobin admission was 6.3 was admitted to a monitored bed, an order given for patient to be transfused 2 unit PRBC (awaiting blood transfusion?patient was found to have antibodies). Hemoglobin down to 5.3. Patient is on dual antiplatelet therapy with aspirin and Plavix held. 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 Chronic right upper quadrant pain ? Secondary to biliary dyskinesia. Plan is for patient to undergo surgical intervention at [facility] given her significant cardiac comorbidities. 3. Coronary artery disease ? Status post CABG patient dual antiplatelet therapy held in view of her anemia 4. Valvular heart disease ? With history of aortic valve replacement 2 previous occasion (last valvular replacement performed in November 2021) 5. Paroxysmal A. fib ? Rate controlled ? Patient not on systemic anticoagulation due to recurrent GI bleed 6. Dyslipidemia ? Patient apparently allergic to statins on ezetimibe as well as niacin 7. Carotid artery disease ? With previous bilateral CEA 8. Hypertension - Blood pressure controlled 9. GERD ? Patient is on PPI 10. Vitamin B12 deficiency ? Patient is on supplement 11. DVT prophylaxis ? Bilateral SCDs Charges/Coding Visit Charges Inpatient E&M: 95892 [facility] Hosp L3
[2021-12-30] MEDS: Pantoprazole Sodium 40 MG Tablet PO (08:29)
[2021-12-30] MEDS: Acetaminophen 325 MG Tablet 650 MG PO (09:13)
--- NOTE | 2021-12-30 11:15 | CASEMGMT ---
[facility] assessment: Face to Face with patient for initial transition planning/care coordination assessment. [facility]ESLY MC introduced self and role at [facility], pt voices understanding and consents to assessment. Pt is sitting up in chair in no distress on room air. Pt is A/Ox4 and answers all questions appropriately.? Care providers, pharmacy,?and demographics verified/updated. ? Presentation: Sent in by Dr. Montague for low Hgb-7.1 last Admitting dx: A on C anemia PCP: James Specialists: [facility]; Yong cardio [facility]erred [facility] Insurance: AeR Prescription Benefit:? AeR Living Will/HPOA: Pt states has LW/HPOA and is aware that they are not on file at [facility]. Pt states her niece, Yvonne Robbins, is HPOA. LNOK: Yvonne Robbins, niece/HPOA; Kolby Swann, son Living Arrangements: Pt lives alone in 1 story home with 2 steps in and states no concerns at home. Pt is independent with ADL's. Transportation: Pt drives self and states no transportation concerns. DME/HHC: Pt has the following DME: w/c, walker, raised toilet seat, grab bars, and shower chair. Pt states no need for any further DME. Pt states no hx of SNF but has had [facility] in past. Pt states no concerns with going home at time of discharge. Pt is retired. Pt states does not smoke cigarettes or drink ETOH. Pt voices no further concerns/needs. CM to follow for any further discharge planning/needs. Advised pt to ask for CM if any further questions/concerns/needs arise, voices understanding. Pt Goal: Home? Plan: [place] [facility]
--- NOTE | 2021-12-30 15:04 | CHAPLAIN ---
Type of Pastoral Visit _x__ Initial Visit ___ Follow-up Visit ___ On-call Visit ___ General Patient Visit ___ Spiritual Assessment ___ Family Conference ___ Bereavement ___ Rapid Response ___ Code Blue ___ Other (describe below) Pastoral Care Referral From _x__ Patient ___ Family ___ Nurse ___ Physician ___ Tool Engine Lathe Set Up Operator ___ Workers Compensation Manager ___ Other (describe below) Sacrament/Intervention _x__ Active listening ___ Anointing ___ Yazidi ___ Bereavement ___ Communion ___ Gin exploration ___ _x__ Life review _x__ Prayer ___ Reconciliation ___ Sacrament of Sick _x__ Supportive presence ___ Wedding ___ Other (describe below) Pastoral Comments patient has been seen previously by this security supervisor in other admissions; pt gives updates on her surgery and her current health; pt talks about her life and her family/friends; pt is focused on getting the help/surgery she needs to get well; pt welcomes presence and prayers
[2021-12-30 15:49] LABS: Pathologist Review Reviewed
--- NOTE | 2021-12-30 18:24 | CON.PCM_ITS ---
Assessment & Plan Assessment/Plan (1) Anemia requiring transfusions: PLAN: Patient should undergo deep enteroscopy. I will order CT angiography to see if she has any active bleeding tonight. She should undergo an EGD with push enteroscopy tomorrow. She was explained alternatives, risk, benefits including outstanding bleeding, infection, sepsis, perforation, need for emergency or . She will have an ASA of 3. HPI Consult Data Date of Consult: 01/01/22 HPI Narrative Reason for Consultation: Anemia HPI Narrative: SAMMY SOLOMON, 81 F who presents due to worsening anemia.? She has a significant cardiac history including atherosclerotic coronary artery disease status post CABG, valvular heart disease status post valve replacement, diabetes, dyslipidemia, paroxysmal atrial fibrillation, hypertension, psoriasis, chronic GERD, and degenerative joint disease.? She is not on anticoagulation or antiplatelet therapy.? She has a history of chronic iron deficiency anemia for several years, has been on oral iron supplement and periodic IV iron under the care of her PCP.? She is undergone endoscopic evaluation for iron deficiency anemia.? She was discovered to have AV malformations in the past and upper and lower GI tract.? Recently she underwent capsule endoscopy which had shown active bleeding in her small bowel.? She was advised to come to the emergency room for evaluation after the bleeding was seen.? As an outpatient with a hemoglobin of 7.7. She has a known history of angiodysplasia of the small bowel. Today her hemoglobin is 5.2. [facility] Medical History Acute blood loss anemia Atherosclerotic heart disease of [place] coronary artery without angina pectoris Atypical chest pain Bilateral carotid artery stenosis Bilateral carotid bruits Biliary colic CAD (coronary artery disease) Carotid stenosis Cholelithiasis Jayson's syndrome Effusion, left knee Essential hypertension Former smoker Gallstones Gastrointestinal bleeding, upper GERD (gastroesophageal reflux disease) GI bleed History of left heart catheterization (LHC) (~07/14/20) HTN (hypertension) Hypertension Iron deficiency anemia due to chronic blood loss Near syncope Nonrheumatic aortic (valve) stenosis [place] (obstructive sleep apnea) Osteoarthritis Paroxysmal atrial fibrillation PND (post-nasal drip) Psoriasis Pure hypercholesterolemia Sleep disorder Sleep disorder breathing SOB (shortness of breath) on exertion TIA (transient ischemic attack) TIA (transient ischemic attack) Tobacco abuse Type 2 diabetes mellitus UGIB (upper gastrointestinal bleed) Home Medications ezetimibe 10 mg tablet 10 mg PO QHS cholesterol 09/01/13 [History Last Taken 12/28/21] pantoprazole 40 mg tablet,delayed release 40 mg PO DAILY gerd 09/01/13 [History Last Taken 12/29/21] nitroglycerin 0.4 mg sublingual tablet 0.4 mg sublingual Q5M PRN Chest Pain #25 tabs 10/05/18 [Rx Last Taken 04/12/19] niacin (inositol niacinate) 500 mg capsule 1,000 mg PO BID supplement 04/12/19 [History Last Taken 12/29/21] furosemide 20 mg tablet (Lasix) 20 mg PO DAILY FLUID 12/15/20 [History Last Taken 08/27/21] clopidogrel 75 mg tablet 75 mg PO DAILY blood thinner 04/18/21 [History Last Taken 12/29/21] levocetirizine 5 mg tablet (Xyzal) 5 mg PO DAILY supplement 07/15/21 [History Last Taken 12/28/21] cholecalciferol (vitamin D3) 125 mcg (5,000 unit) tablet (Vitamin D3) 125 mcg PO DAILY supplement 09/26/21 [History Last Taken 12/29/21] ascorbic acid (vitamin C) 1,000 mg tablet 1 g PO DAILY SUPPLEMENT 12/29/21 [History Last Taken 12/29/21] aspirin 81 mg tablet,delayed release 81 mg PO DAILY HEALTH MAINTENANCE 12/29/21 [History Last Taken 12/28/21] cyanocobalamin (vitamin B-12) 1,000 mcg tablet 1,000 mcg PO DAILY SUPPLEMENT 12/29/21 [History Last Taken 12/29/21] ferrous sulfate 325 mg (65 mg iron) tablet (FeroSul) 325 mg PO BIDCM SUPPLEMENT 12/29/21 [History Last Taken Unknown] Allergy/AdvReac Type Severity Reaction Status Date / Time Sulfa (Sulfonamide Allergy Severe HEART Verified 12/29/21 17:11 Antibiotics) RACING Latex, Natural Rubber Allergy Rash, Verified 12/29/21 17:11 psioriasis amoxicillin [From Augmentin] AdvReac Nausea Verified 12/29/21 17:11 atorvastatin [From Lipitor] AdvReac Other Verified 12/29/21 17:11 clavulanic acid AdvReac Nausea Verified 12/29/21 17:11 [From Augmentin] Iodinated Contrast Media AdvReac Other Verified 12/29/21 17:11 [CONTRASTS] lisinopril AdvReac Other Verified 12/29/21 17:11 niacin AdvReac Other Verified 12/29/21 17:11 [From Niaspan Extended-Release] red dye AdvReac NEEDS Verified 12/29/21 17:11 FOLLOW-UP rosuvastatin [From Crestor] AdvReac Other Verified 12/29/21 17:11 turkey AdvReac Rash Verified 12/29/21 17:11 Family History Mother Heart disease Diabetes Father Heart disease Cancer Sister Cancer COPD (chronic obstructive pulmonary disease) Surgical History History of aortic valve replacement with bioprosthetic valve (~09/06/13) History of bilateral carotid endarterectomy History of coronary artery bypass surgery (~09/06/13) History of left mastectomy (~1998) History of right mastectomy (~1998) History of tubal ligation Social History household members: none housing: house Smoking Status: Former smoker how long ago did patient quit smokin second hand exposure: No alcohol intake: never substance use type: does not use caffeine: Yes Type: coffee Number of servings: 2 and tea what type of physical activity do you participate in: none franci/adventism: Islam seatbelt use: always do you feel safe at home: Yes ROS Constitutional Constitutional: Denies anorexia, change in weight, chills, fatigue, fever(s), malaise or weakness Eyes Eyes: Denies change in vision ENT HEENT: Denies dysphagia, headache(s), nasal congestion or sore throat Cardiovascular Cardiovascular: Denies chest pain, dyspnea on exertion, edema, lightheadedness, orthopnea, palpitations, paroxysmal nocturnal dyspnea, rapid heart rate or syncope Respiratory/Chest Respiratory/Chest: Denies cough, dyspnea, shortness of breath at rest or shortness of breath with exertion Gastrointestinal Gastrointestinal: Reports abdominal pain; Denies constipation, diarrhea, dyspepsia, hematemesis, hematochezia, loose stools, melena, nausea or vomiting Genitourinary Genitourinary: Denies burning urination or dysuria Musculoskeletal Musculoskeletal: Denies arthralgias, back pain or joint pain Neurologic Neurologic: Denies confusion, dizziness, focal weakness or headache(s) Psychiatric Psychiatric: Denies anxiety Endocrine Endocrinology: Denies change in body appearance Physical Exam Narrative GENERAL: cooperative HEENT: Atraumatic; EYES; Anicteric, Normal Conjunctiva NECK; supple, normal thyroid, RESPIRATORY: Diminished to auscultation CARDIOVASCULAR: Regular S1 S2, GI: soft, normoactive bowel sounds, : No Renal angle tenderness; EXTREMITIES: No edema, no clubbing, MUSCULOSKELETAL: no muscle wasting NEURO: Awake; no lateralizing signs. SKIN: No Rash PSYCH; Flat affect Medical Records Data Medical Nutrition Assessment Dietitian: Malnutrition Criteria Met Start: 12/30/21 13:02 Freq: Status: Active Protocol: Document 12/30/21 13:03 RMA (Rec: 12/30/21 13:03 RMA [id number]) Nutrition Malnutrition Evidence of Malnutrition Exists Yes Malnutrition (severe): Chronic Evidenced By Suboptimal Energy Intake ( Severe),Weight Loss (Severe) Clinical Problem Chronic Disease or Condition Related Malnutrition Etiology Severe protein-calorie malnutrition in the context of chronic disease related to inadequate oral intake Signs/Symptoms as evidenced by calculated wt loss~18-20% x past 6-7 months and PO meeting less than 50% estimated nutrition needs Status Active Problem Recommendation Dietitian Recommendations/Changes Given signs/symptoms of malnutrition, will liberalize diet to Regular. Will add 120ml ensure clear 4 times per day w/ medpass as tolerated. Please reweigh patient, will trend weights closely as available. Additional ONS as needed. Restrict carbohydrates in diet as needed if blood glucose rises. Lab / Micro Data Result Diagrams: 01/01/22 06:14 01/01/22 06:14 Labs: Laboratory Results - last 24 hr 12/29/21 17:50: WBC 7.9, RBC 2.67 L, Hgb 6.3 L, Hct 22.0 L, MCV 82.4, MCH 23.6 L , MCHC 28.6 L, RDW Std Deviation 51.1 H, RDW Coeff of Velasquez 17.2 H, Plt Count 356, MPV 10.1, Immature Gran % (Auto) 0.500, Neut % (Auto) 73.3 H, Lymph % (Auto) 14.8 L, [place] % (Auto) 7.5, Eos % (Auto) 3.5, Baso % (Auto) 0.4, Absolute Neuts (auto) 5.8, Absolute Lymphs (auto) 1.17, Nucleated RBC % 0 12/29/21 17:50: PT 14.0, INR 1.1, APTT 30.3 12/29/21 17:50: Sodium 141, Potassium 4.4, Chloride 105, Carbon Dioxide 32.0, Anion Gap 4 L, BUN 19 H, Creatinine 0.94, Estim Creat Clear Calc 37.12, Est GFR (MDRD) Af Amer 74, Est GFR (MDRD) Non-Af 61, BUN/Creatinine Ratio 20.3 H, Glucose 126 H, Calcium 9.5, Total Bilirubin 0.30, Direct Bilirubin 0.10, AST 16, ALT 15, Alkaline Phosphatase 66, Total Protein 6.8, Albumin 3.5, Globulin 3.3, Amylase 55, Lipase 205 12/29/21 17:50: Blood Type A POSITIVE, Antibody Screen POSITIVE H, Antibody Identification HIGH TITER LOW AVIDITY 12/29/21 17:50: Crossmatch See Detail 12/30/21 05:38: WBC 6.3, RBC 2.26 L, Hgb 5.3 L*, Hct 19.1 L, MCV 84.5, MCH 23.5 L, MCHC 27.7 L, RDW Std Deviation 53.9 H, RDW Coeff of [place]quez 17.3 H, Plt Count 273, MPV 9.7, Immature Gran % (Auto) 0.500, Neut % (Auto) 69.6, Lymph % (Auto) 14.6 L, [place] % (Auto) 9.5, Eos % (Auto) 5.2 H, Baso % (Auto) 0.6, Absolute Neuts (auto) 4.4, Absolute Lymphs (auto) 0.92, Nucleated RBC % 0.3, Diff Path Review Reviewed, Polychromasia RARE, Anisocytosis 2+ 12/30/21 05:38: Sodium 142, Potassium 4.4, Chloride 108 H, Carbon Dioxide 28.0, Anion Gap 6, BUN 16, Creatinine 0.78, Estim Creat Clear Calc 34.90, Est GFR (MDRD) Af Amer 92, Est GFR (MDRD) Non-Af 76, BUN/Creatinine Ratio 20.6 H, Glu cose 86, Calcium 8.2 L Charges/Coding Visit Charges Inpatient E&M: 20049 Init Hosp L2
[2021-12-31] VITALS (14 sets, daily range): BP systolic 122–153; BP diastolic 52–92; PULSE 78–94; RESP 16; TEMP 36.2–36.9; O2SAT 94–99; BMI 22.1
[2021-12-31] MEDS: Lactated Ringers 1,000 ML 15 ML IV (11:00)
--- NOTE | 2021-12-31 11:03 | PCM.PN.HOSP ---
Subjective Subjective Patient seen and scheduled to undergo EGD with push enteroscopy by Dr. Montague this morning. Patient hemoglobin level pending Objective Data Objective Data Vital Signs: Vital Signs Temp Pulse Resp BP Pulse Ox O2 Del Method 98.1 F 80 16 133/53 H 98 Room Air 12/31/21 07:52 12/31/21 07:52 12/31/21 07:52 12/31/21 07:52 12/31/21 07:52 12/31/21 07:52 Oxygen Delivery Method Room Air Weight: 54.9 kg Body Mass Index (BMI) 22.1 Intake & Output: Intake and Output for Last 24 Hours 12/29/21 12/30/21 12/31/21 23:59 23:59 23:59 Intake Total 3839 / 3839 Balance 3839 / 3839 Medical Nutrition Assessment Dietitian: Malnutrition Criteria Met Start: 12/30/21 13:02 Freq: Status: Active Protocol: Document 12/30/21 13:03 RMA (Rec: 12/30/21 13:03 RMA [id number]) Nutrition Malnutrition Evidence of Malnutrition Exists Yes Malnutrition (severe): Chronic Evidenced By Suboptimal Energy Intake ( Severe),Weight Loss (Severe) Clinical Problem Chronic Disease or Condition Related Malnutrition Etiology Severe protein-calorie malnutrition in the context of chronic disease related to inadequate oral intake Signs/Symptoms as evidenced by calculated wt loss~18-20% x past 6-7 months and PO meeting less than 50% estimated nutrition needs Status Active Problem Recommendation Dietitian Recommendations/Changes Given signs/symptoms of malnutrition, will liberalize diet to Regular. Will add 120ml ensure clear 4 times per day w/ medpass as tolerated. Please reweigh patient, will trend weights closely as available. Additional ONS as needed. Restrict carbohydrates in diet as needed if blood glucose rises. Lab / Micro Data Result Diagrams: 12/30/21 05:38 12/30/21 05:38 Labs: Laboratory Results - last 24 hr 12/29/21 17:50: Antibody Screen POSITIVE H, Antibody Identification HIGH TITER LOW AVIDITY 12/29/21 17:50: Crossmatch See Detail 12/30/21 05:38: Diff Path Review Reviewed Physical Exam Narrative GENERAL: cooperative HEENT: Atraumatic; EYES; Anicteric, Normal Conjunctiva NECK; supple, normal thyroid, RESPIRATORY: Diminished to auscultation CARDIOVASCULAR: Regular S1 S2, GI: soft, normoactive bowel sounds, : No Renal angle tenderness; EXTREMITIES: No edema, no clubbing, MUSCULOSKELETAL: no muscle wasting NEURO: Awake; no lateralizing signs. SKIN: No Rash PSYCH; Flat affect Assessment & Plan Assessment/Plan (1) Anemia requiring transfusions: (2) Anemia: PLAN: Plan Patient is an 81-year-old lady who was sent to the ED by GI on account of low hemoglobin 1. Acute on chronic anemia ? Patient hemoglobin admission was 6.3 was admitted to a monitored bed, an order given for patient to be transfused 2 unit PRBC (awaiting blood transfusion?patient was found to have antibodies). Hemoglobin down to 5.3. Patient is on dual antiplatelet therapy with aspirin and Plavix held. 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 12/31/2021; Patient seen and scheduled to undergo EGD with push enteroscopy by Dr. Montague this morning. Patient hemoglobin level pending 2. Chronic right upper quadrant pain ? Secondary to biliary dyskinesia. Plan is for patient to undergo surgical intervention at [facility] given her significant cardiac comorbidities. 3. Coronary artery disease ? Status post CABG patient dual antiplatelet therapy held in view of her anemia 4. Valvular heart disease ? With history of aortic valve replacement 2 previous occasion (last valvular replacement performed in November 2021) 5. Paroxysmal A. fib ? Rate controlled ? Patient not on systemic anticoagulation due to recurrent GI bleed 6. Dyslipidemia ? Patient apparently allergic to statins on ezetimibe as well as niacin 7. Carotid artery disease ? With previous bilateral CEA 8. Hypertension - Blood pressure controlled 9. GERD ? Patient is on PPI 10. Vitamin B12 deficiency ? Patient is on supplement 11. DVT prophylaxis ? Bilateral SCDs Charges/Coding Visit Charges Inpatient E&M: 50686 Subs Hosp L2
--- NOTE | 2021-12-31 12:32 | OP.EGD_ITS ---
Patient Name: Ivanna Swann Procedure Date: 12/31/2021 11:18 AM Date of : 1940 Age: 81 Procedure: Upper GI endoscopy Indications: Acute post hemorrhagic anemia, Recent gastrointestinal bleeding Providers: Bairon Montague DO Medicines: Monitored Anesthesia Care Patient Profile: This is an 81 year old female. Refer to note in patient chart for documentation of history and physical. Patient has symptoms of acute epigastric abdominal pain. Complications: No immediate complications. Procedure: Pre-Anesthesia Assessment: - Prior to the procedure, a History and Physical was performed, and patient medications and allergies were reviewed. The patient is competent. The risks and benefits of the procedure and the sedation options and risks were discussed with the patient. All questions were answered and informed consent was obtained. Patient identification and proposed procedure were verified by the physician in the pre-procedure area. Mental Status Examination: alert and oriented. Airway Examination: normal oropharyngeal airway and neck mobility. Respiratory Examination: clear to auscultation. CV Examination: normal. Prophylactic Antibiotics: The patient does not require prophylactic antibiotics. Prior Anticoagulants: The patient has taken no previous anticoagulant or antiplatelet agents. ASA Grade Assessment: II - A patient with mild systemic disease. After reviewing the risks and benefits, the patient was deemed in satisfactory condition to undergo the procedure. The anesthesia plan was to use monitored anesthesia care (MAC). Immediately prior to administration of medications, the patient was re-assessed for adequacy to receive sedatives. The heart rate, respiratory rate, oxygen saturations, blood pressure, adequacy of pulmonary ventilation, and response to care were monitored throughout the procedure. The physical status of the patient was re-assessed after the procedure. After obtaining informed consent, the endoscope was passed under direct vision. Throughout the procedure, the patient's blood pressure, pulse, and oxygen saturations were monitored continuously. The pediatric colonoscope was introduced through the mouth, and advanced to the proximal jejunum. The upper GI endoscopy was accomplished without difficulty. The patient tolerated the procedure well. Scope In: 11:54:10 AM Scope Out: 12:14:29 PM Total Procedure Duration Time 0 hours 20 minutes 19 seconds Findings: The examined esophagus was normal. Two 5 mm no bleeding angiodysplastic lesions were found in the gastric body. Coagulation for hemostasis using monopolar probe was successful. Estimated blood loss was minimal. Three 5 mm angiodysplastic lesions with bleeding were found in the third portion of the duodenum. Coagulation for hemostasis using heater probe was successful. Estimated blood loss was minimal. One 5 mm angiodysplastic lesion without bleeding was found in the jejunum. Coagulation for hemostasis using heater probe was successful. Estimated blood loss was minimal. Impression: - Normal esophagus. - Two non-bleeding angiodysplastic lesions in the stomach. Treated with a monopolar probe. - Three bleeding angiodysplastic lesions in the duodenum. Treated with a heater probe. - One non-bleeding angiodysplastic lesion in the jejunum. Treated with a heater probe. - No specimens collected. Recommendation: - Discharge patient to home. - Resume previous diet. - Continue present medications. - Await pathology results. Procedure Code(s): --- Professional --- 82211, Esophagogastroduodenoscopy, flexible, transoral; with control of bleeding, any method CPT copyright 2017 [employer]. All rights reserved. The codes documented in this report are preliminary and upon community director review may be revised to meet current compliance requirements. Bairon Montague DO 12/31/2021 12:31:45 PM This report has been signed electronically. Number of Addenda: 0 Note Initiated On: 12/31/2021 11:18 AM
--- NOTE | 2021-12-31 12:32 | OP.CCLET_ITS ---
12/31/2021 Daisha Ramirez [address] [place] [address] Re : Upper GI endoscopy procedure for Ivanna Swann Dear Dr. Ramirez This procedure was performed on December. My impressions and recommendations are as follows: Impressions : - Normal esophagus. - Two non-bleeding angiodysplastic lesions in the stomach. Treated with a monopolar probe. - Three bleeding angiodysplastic lesions in the duodenum. Treated with a heater probe. - One non-bleeding angiodysplastic lesion in the jejunum. Treated with a heater probe. - No specimens collected. Recommendations : - Discharge patient to home. - Resume previous diet. - Continue present medications. - Await pathology results. My findings are described in the full procedure note, which is enclosed. If I can be of further assistance, please feel free to contact me at . Sincerely, Bairon Montague DO 12/31/2021 12:31:45 PM This report has been signed electronically.
[2021-12-31 21:55] LABS: Hematocrit 32.5 % (37-47); Hemoglobin 9.5 g/dL (12.0-15.0); Mean Corp Hgb Conc 29.2 g/dL (32-36); Mean Corpuscular Volume 85.5 fL (81-99); Mean Platelet Vol. 9.9 fl (6.2-12.0); Platelet Count 335 K/mm3 (150-450); RBC Distribution Width CV 16.8 % (11.6-14.6); RBC Distribution Width SD 52.4 fl (35.1-43.9); White Blood Count 8.2 K/mm3 (4.4-11.0)
[2021-12-31 21:58] LABS: POSITIVE COUNT NO; POSITIVE DIFFERENTIAL NO; POSITIVE MORPHOLOGY NO; Scan Indicated on CBC? Y/N NO
[2021-12-31 22:16] LABS: AST(SGOT) 25 U/L (15-37); Alanine Aminotransfer ALT/SGPT 20 U/L (13-56); Albumin, Serum 3.4 g/dL (3.2-5.0); Alkaline Phosphatase 71 U/L (45-117); Anion Gap 6 (5-15); BUN 11 mg/dL (7-18); BUN/Creat Ratio 13.3 RATIO (10-20); Calcium,Total 9.1 mg/dL (8.5-10.1); Chloride 105 mmol/L (98-107); Creatinine, Serum 0.83 mg/dL (0.55-1.02); EST Glomerular Filtration Rate 70 mL/min (>60); Est Glom Filt Rate - Afr Amer 85 mL/min (>60); Estimated Creatinine Clearance 42.04 ml/min; Globulin 3.3 g/dL (2.2-4.2); Glucose 99 mg/dL (74-106); Magnesium 2.1 mg/dL (1.6-2.6); Potassium 4.2 mmol/L (3.5-5.1); Protein, Total 6.7 g/dL (6.4-8.2); Sodium Level 141 mmol/L (136-145)
[2022-01-01] VITALS (8 sets, daily range): BP systolic 120–137; BP diastolic 51–67; PULSE 78–84; RESP 16–17; TEMP 36.6–36.8; O2SAT 93–96
[2022-01-01 06:33] LABS: Basophil# 0.06 X10^3/uL; Basophil% 0.8 % (0-1); Eosinophil# 0.43 X10^3/uL; Eosinophils% 5.5 % (0-5); Hematocrit 31.9 % (37-47); Hemoglobin 9.6 g/dL (12.0-15.0); Mean Corp Hgb Conc 30.1 g/dL (32-36); Mean Corpuscular Hgb 25.8 pg (27.0-32.0); Mean Corpuscular Volume 85.8 fL (81-99); Mean Platelet Vol. 9.5 fl (6.2-12.0); Monocyte% 7.7 % (0-10); NRBC Flagged by Analyzer 0 % (0-5); Neutrophil # 6.01 X10^3/uL (2.7-7.7); Neutrophil % 76.9 % (47-70); Platelet Count 315 K/mm3 (150-450); Red Blood Count 3.72 M/mm3 (4.2-5.4); White Blood Count 7.8 K/mm3 (4.4-11.0)
[2022-01-01 06:56] LABS: Anion Gap 4 (5-15); BUN 9 mg/dL (7-18); BUN/Creat Ratio 10.9 RATIO (10-20); Chloride 106 mmol/L (98-107); Creatinine, Serum 0.82 mg/dL (0.55-1.02); EST Glomerular Filtration Rate 71 mL/min (>60); Est Glom Filt Rate - Afr Amer 86 mL/min (>60); Estimated Creatinine Clearance 42.56 ml/min; Glucose 99 mg/dL (74-106); Phosphorus 4.2 mg/dL (2.5-4.9); Potassium 3.9 mmol/L (3.5-5.1); Sodium Level 140 mmol/L (136-145)
--- NOTE | 2022-01-01 08:15 | PN.HOSP_ITS ---
Subjective Subjective Patient underwent EGD today prior results and recommendations are same assessment and plan. Patient be assessed for possible discharge. Objective Data Objective Data Vital Signs: Vital Signs Temp Pulse Resp BP Pulse Ox O2 Del Method 97.9 F 84 16 120/51 L 94 Room Air 01/01/22 05:10 01/01/22 06:59 01/01/22 05:10 01/01/22 05:10 01/01/22 05:10 01/01/22 05:10 Oxygen Delivery Method Room Air Weight: 54.9 kg Body Mass Index (BMI) 22.1 Intake & Output: Intake and Output for Last 24 Hours 12/30/21 12/31/21 01/01/22 23:59 23:59 23:59 Intake Total 3839 / 3839 Balance 383 / 3839 Medical Nutrition Assessment Dietitian: Malnutrition Criteria Met Start: 12/30/21 13:02 Freq: Status: Active Protocol: Document 12/30/21 13:03 RMA (Rec: 12/30/21 13:03 RMA [id number]) Nutrition Malnutrition Evidence of Malnutrition Exists Yes Malnutrition (severe): Chronic Evidenced By Suboptimal Energy Intake ( Severe),Weight Loss (Severe) Clinical Problem Chronic Disease or Condition Related Malnutrition Etiology Severe protein-calorie malnutrition in the context of chronic disease related to inadequate oral intake Signs/Symptoms as evidenced by calculated wt loss~18-20% x past 6-7 months and PO meeting less than 50% estimated nutrition needs Status Active Problem Recommendation Dietitian Recommendations/Changes Given signs/symptoms of malnutrition, will liberalize diet to Regular. Will add 120ml ensure clear 4 times per day w/ medpass as tolerated. Please reweigh patient, will trend weights closely as available. Additional ONS as needed. Restrict carbohydrates in diet as needed if blood glucose rises. Lab / Micro Data Result Diagrams: 01/01/22 06:14 01/01/22 06:14 Labs: Laboratory Results - last 24 hr 12/31/21 21:35: WBC 8.2, RBC 3.80 L, Hgb 9.5 L, Hct 32.5 L, MCV 85.5, MCH 25.0 L , MCHC 29.2 L D, RDW Std Deviation 52.4 H, RDW Coeff of Velasquez 16.8 H, Plt Count 335, MPV 9.9 12/31/21 21:35: Sodium 141, Potassium 4.2, Chloride 105, Carbon Dioxide 30.0, Anion Gap 6, BUN 11, Creatinine 0.83, Estim Creat Clear Calc 42.04, Est GFR (MDRD) Af Amer 85, Est GFR (MDRD) Non-Af 70, BUN/Creatinine Ratio 13.3, Glucose 99, Calcium 9.1, Magnesium 2.1, Total Bilirubin 1.00, AST 25, ALT 20, Alkaline Phosphatase 71, Total Protein 6.7, Albumin 3.4, Globulin 3.3, Albumin/Globulin Ratio 1.0 01/01/22 06:14: WBC 7.8, RBC 3.72 L, Hgb 9.6 L, Hct 31.9 L, MCV 85.8, MCH 25.8 L , MCHC 30.1 L, RDW Std Deviation 53.0 H, RDW Coeff of Velasquez 17.0 H, Plt Count 315, MPV 9.5, Immature Gran % (Auto) 0.100, Neut % (Auto) 76.9 H, Lymph % (Auto) 9.0 L, [place] % (Auto) 7.7, Eos % (Auto) 5.5 H, Baso % (Auto) 0.8, Absolute Neuts (auto) 6.0, Absolute Lymphs (auto) 0.70 L, Nucleated RBC % 0 01/01/22 06:14: Sodium 140, Potassium 3.9, Chloride 106, Carbon Dioxide 30.0, Anion Gap 4 L, BUN 9, Creatinine 0.82, Estim Creat Clear Calc 42.56, Est GFR (MDRD) Af Amer 86, Est GFR (MDRD) Non-Af 71, BUN/Creatinine Ratio 10.9, Glucose 99, Calcium 9.0, Phosphorus 4.2 Physical Exam Narrative GENERAL: cooperative HEENT: Atraumatic; EYES; Anicteric, Normal Conjunctiva NECK; supple, normal thyroid, RESPIRATORY: Diminished to auscultation CARDIOVASCULAR: Regular S1 S2, GI: soft, normoactive bowel sounds, : No Renal angle tenderness; EXTREMITIES: No edema, no clubbing, MUSCULOSKELETAL: no muscle wasting NEURO: Awake; no lateralizing signs. SKIN: No Rash PSYCH; Flat affect Assessment & Plan Assessment/Plan (1) Anemia requiring transfusions: (2) Anemia: PLAN: Plan Patient is an 81-year-old lady who was sent to the ED by GI on account of low hemoglobin 1. Acute on chronic anemia ? Patient hemoglobin admission was 6.3 was admitted to a monitored bed, an order given for patient to be transfused 2 unit PRBC (awaiting blood transfusion?patient was found to have antibodies). Hemoglobin down to 5.3. Patient is on dual antiplatelet therapy with aspirin and Plavix held. 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 12/31/2021; Patient seen and scheduled to undergo EGD with push enteroscopy by Dr. Montague this morning. Patient hemoglobin level pending 01/01/2022; EGD performed on 12/31/2021 impressions and recommendations as below Impressions : - Normal esophagus. - Two non-bleeding angiodysplastic lesions in the stomach.? Treated with a?monopolar probe. - Three bleeding angiodysplastic lesions in the duodenum.? Treated with a heater?probe. - One non-bleeding angiodysplastic lesion in the jejunum.? Treated with a heater?probe. Recommendations : - Discharge patient to home. - Resume previous diet. - Continue present medications. - Await pathology results. 2. Chronic right upper quadrant pain ? Secondary to biliary dyskinesia. Plan is for patient to undergo surgical intervention at [facility] given her significant cardiac comorbidities. 3. Coronary artery disease ? Status post CABG patient dual antiplatelet therapy held in view of her anemia 4. Valvular heart disease ? With history of aortic valve replacement 2 previous occasion (last valvular replacement performed in November 2021) 5. Paroxysmal A. fib ? Rate controlled ? Patient not on systemic anticoagulation due to recurrent GI bleed 6. Dyslipidemia ? Patient apparently allergic to statins on ezetimibe as well as niacin 7. Carotid artery disease ? With previous bilateral CEA 8. Hypertension - Blood pressure controlled 9. GERD ? Patient is on PPI 10. Vitamin B12 deficiency ? Patient is on supplement 11. DVT prophylaxis ? Bilateral SCDs 12. Severe protein-calorie malnutrition ? In the context of chronic disease related to inadequate oral intake as evidenced by calculated wt loss~18-20% x past 6-7 months and PO meeting less than 50% estimated nutrition needs. Given signs/symptoms of malnutrition, will liberalize diet to Regular. Will add 120ml ensure clear 4 times per day w/ medpass as tolerated. Please reweigh patient, will trend weights closely as available. Additional ONS as needed. Restrict carbohydrates in diet as needed if blood glucose rises. Charges/Coding Visit Charges Inpatient E&M: 68499 Subs Hosp L2
[2022-01-01] MEDS: Pantoprazole Sodium 40 MG Tablet PO (09:58)
--- NOTE | 2022-01-01 10:20 | DS.PCM_ITS ---
Providers Date of Admission: 12/29/21 Date of Discharge: 01/01/22 Primary Care Physician: Dr. Daisha Ramirez, DO Consultations 12/29/21 20:57 Consult: Gastroenterology Routine Consulting Provider: [facility] Reason for Consult: acute on chronic anemia EMERGENT Consult: No MD Notified: Yes Date Notified: 12/29/21 Time Notified: 20:13 Method of Notification: Text Reason For Visit: ACUTE ON CHRONIC ANEMIA Diagnosis Discharge Diagnosis (1) Anemia requiring transfusions: Status: Acute Code(s): D64.9 - Anemia, unspecified (2) Anemia: Status: Acute Code(s): D64.9 - Anemia, unspecified Plan Patient is an 81-year-old lady who was sent to the ED by GI on account of low hemoglobin 1. Acute on chronic anemia ? Patient hemoglobin admission was 6.3 was admitted to a monitored bed, an order given for patient to be transfused 2 unit PRBC (awaiting blood transfusion?patient was found to have antibodies). Hemoglobin down to 5.3. Patient is on dual antiplatelet therapy with aspirin and Plavix held. 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 12/31/2021; Patient seen and scheduled to undergo EGD with push enteroscopy by Dr. Montague this morning. Patient hemoglobin level pending 01/01/2022; EGD performed on 12/31/2021 impressions and recommendations as below Impressions : - Normal esophagus. - Two non-bleeding angiodysplastic lesions in the stomach.? Treated with a?monopolar probe. - Three bleeding angiodysplastic lesions in the duodenum.? Treated with a heater?probe. - One non-bleeding angiodysplastic lesion in the jejunum.? Treated with a heater?probe. Recommendations : - Discharge patient to home. - Resume previous diet. - Continue present medications. - Await pathology results. 2. Chronic right upper quadrant pain ? Secondary to biliary dyskinesia. Plan is for patient to undergo surgical int ervention at [facility] given her significant cardiac comorbidities. 3. Coronary artery disease ? Status post CABG patient dual antiplatelet therapy held in view of her anemia ? 01/01/2022 patient antiplatelet therapy resumed on discharge 4. Valvular heart disease ? With history of aortic valve replacement 2 previous occasion (last valvular replacement performed in November 2021) 5. Paroxysmal A. fib ? Rate controlled ? Patient not on systemic anticoagulation due to recurrent GI bleed 6. Dyslipidemia ? Patient apparently allergic to statins on ezetimibe as well as niacin 7. Carotid artery disease ? With previous bilateral CEA 8. Hypertension - Blood pressure controlled 9. GERD ? Patient is on PPI 10. Vitamin B12 deficiency ? Patient is on supplement 11. DVT prophylaxis ? Bilateral SCDs 12. Severe protein-calorie malnutrition ? In the context of chronic disease related to inadequate oral intake as evidenced by calculated wt loss~18-20% x past 6-7 months and PO meeting less than 50% estimated nutrition needs. Given signs/symptoms of malnutrition, will liberalize diet to Regular. Will add 120ml ensure clear 4 times per day w/ medpass as tolerated. Please reweigh patient, will trend weights closely as available. Additional ONS as needed. Restrict carbohydrates in diet as needed if blood glucose rises. Medications at Discharge Home Medications ezetimibe 10 mg tablet 10 mg PO QHS cholesterol 09/01/13 pantoprazole 40 mg tablet,delayed release 40 mg PO DAILY gerd 09/01/13 nitroglycerin 0.4 mg sublingual tablet 0.4 mg sublingual Q5M PRN Chest Pain #25 tabs 10/05/18 niacin (inositol niacinate) 500 mg capsule 1,000 mg PO BID supplement 04/12/19 furosemide 20 mg tablet (Lasix) 20 mg PO DAILY FLUID 12/15/20 clopidogrel 75 mg tablet 75 mg PO DAILY blood thinner 04/18/21 levocetirizine 5 mg tablet (Xyzal) 5 mg PO DAILY supplement 07/15/21 cholecalciferol (vitamin D3) 125 mcg (5,000 unit) tablet (Vitamin D3) 125 mcg PO DAILY supplement 09/26/21 ascorbic acid (vitamin C) 1,000 mg tablet 1 g PO DAILY SUPPLEMENT 12/29/21 aspirin 81 mg tablet,delayed release 81 mg PO DAILY HEALTH MAINTENANCE 12/29/21 cyanocobalamin (vitamin B-12) 1,000 mcg tablet 1,000 mcg PO DAILY SUPPLEMENT 12/29/21 ferrous sulfate 325 mg (65 mg iron) tablet (FeroSul) 325 mg PO BIDCM SUPPLEMENT 12/29/21 Hospital Course Procedures EGD Summary of Care Provided Minutes Spent on Discharge: 35 Physical Exam Narrative GENERAL: cooperative HEENT: Atraumatic; EYES; Anicteric, Normal Conjunctiva NECK; supple, normal thyroid, RESPIRATORY: Diminished to auscultation CARDIOVASCULAR: Regular S1 S2, GI: soft, normoactive bowel sounds, : No Renal angle tenderness; EXTREMITIES: No edema, no clubbing, MUSCULOSKELETAL: no muscle wasting NEURO: Awake; no lateralizing signs. SKIN: No Rash PSYCH; Flat affect Medical Records Data Medical Nutrition Assessment Dietitian: Malnutrition Criteria Met Start: 12/30/21 13:02 Freq: Status: Active Protocol: Document 12/30/21 13:03 RMA (Rec: 12/30/21 13:03 RMA [id number]) Nutrition Malnutrition Evidence of Malnutrition Exists Yes Malnutrition (severe): Chronic Evidenced By Suboptimal Energy Intake ( Severe),Weight Loss (Severe) Clinical Problem Chronic Disease or Condition Related Malnutrition Etiology Severe protein-calorie malnutrition in the context of chronic disease related to inadequate oral intake Signs/Symptoms as evidenced by calculated wt loss~18-20% x past 6-7 months and PO meeting less than 50% estimated nutrition needs Status Active Problem Recommendation Dietitian Recommendations/Changes Given signs/symptoms of malnutrition, will liberalize diet to Regular. Will add 120ml ensure clear 4 times per day w/ medpass as tolerated. Please reweigh patient, will trend weights closely as available. Additional ONS as needed. Restrict carbohydrates in diet as needed if blood glucose rises. Weight / BMI Weight Weight: 54.9 kg Body Mass Index (BMI) 22.1 ABG / Lab / Microbiology Data Result Diagrams: 01/01/22 06:14 01/01/22 06:14 Laboratory: Laboratory Results - last 24 hr 12/31/21 21:35: WBC 8.2, RBC 3.80 L, Hgb 9.5 L, Hct 32.5 L, MCV 85.5, MCH 25.0 L , MCHC 29.2 L D, RDW Std Deviation 52.4 H, RDW Coeff of Velasquez 16.8 H, Plt Count 3 35, MPV 9.9 12/31/21 21:35: Sodium 141, Potassium 4.2, Chloride 105, Carbon Dioxide 30.0, Anion Gap 6, BUN 11, Creatinine 0.83, Estim Creat Clear Calc 42.04, Est GFR (MDRD) Af Amer 85, Est GFR (MDRD) Non-Af 70, BUN/Creatinine Ratio 13.3, Glucose 99, Calcium 9.1, Magnesium 2.1, Total Bilirubin 1.00, AST 25, ALT 20, Alkaline Phosphatase 71, Total Protein 6.7, Albumin 3.4, Globulin 3.3, Albumin/Globulin Ratio 1.0 01/01/22 06:14: WBC 7.8, RBC 3.72 L, Hgb 9.6 L, Hct 31.9 L, MCV 85.8, MCH 25.8 L , MCHC 30.1 L, RDW Std Deviation 53.0 H, RDW Coeff of Velasquez 17.0 H, Plt Count 315, MPV 9.5, Immature Gran % (Auto) 0.100, Neut % (Auto) 76.9 H, Lymph % (Auto) 9.0 L, [place] % (Auto) 7.7, Eos % (Auto) 5.5 H, Baso % (Auto) 0.8, Absolute Neuts (auto) 6.0, Absolute Lymphs (auto) 0.70 L, Nucleated RBC % 0 01/01/22 06:14: Sodium 140, Potassium 3.9, Chloride 106, Carbon Dioxide 30.0, Anion Gap 4 L, BUN 9, Creatinine 0.82, Estim Creat Clear Calc 42.56, Est GFR (MDRD) Af Amer 86, Est GFR (MDRD) Non-Af 71, BUN/Creatinine Ratio 10.9, Glucose 99, Calcium 9.0, Phosphorus 4.2 D/C Instructions Discharge Diet: No restrictions Discharge Activity: Return to Normal Activity Call your doctor if you observe: Fever of 101 or Higher, Shortness of breath, Fainting spells and Chest pain Meaningful Use Info Meaningful Use Diagnoses (Choose all that apply): None applicable Discharge Plan Admission Admit Date/Time: 12/29/21 19:54 Attending Provider: Ari Madrid Primary Care Provider: Daisha Ramirez Consulting Providers: Carolann Naranjo Discharge Orders/Prescriptions Prescriptions: Continued nitroglycerin 0.4 mg tablet, sublingual 0.4 mg SUBLINGUAL Q5M PRN (Reason: Chest Pain) Qty: 25 1RF levocetirizine [Xyzal] 5 mg tablet 5 mg PO DAILY pantoprazole 40 MG tablet 40 mg PO DAILY Label Comments: stomach acid ezetimibe 10 MG tablet 10 mg PO QHS Label Comments: cholesterol niacin (inositol niacinate) 500 MG capsule 1,000 mg PO BID furosemide [Lasix] 20 mg Tablet 20 mg PO DAILY clopidogrel 75 mg tablet 75 mg PO DAILY Hold Instructions: Hold until appointment with Dr. Montague. cholecalciferol (vitamin D3) [Vitamin D3] 125 mcg (5,000 unit) Tablet 125 mcg PO DAILY ascorbic acid (vitamin C) 1,000 mg Tablet 1 g PO DAILY cyanocobalamin (vitamin B-12) 1,000 mcg Tablet 1,000 mcg PO DAILY aspirin 81 mg Tablet,Delayed Release (Dr/Ec) 81 mg PO DAILY ferrous sulfate [FeroSul] 325 mg (65 mg iron) tablet 325 mg PO BIDCM Referrals / Follow Up: Daisha Ramirez DO [Primary Care Provider] - Within 1 Week Bairon Montague DO [Med Staff - Active Staff] - Within 2 Weeks Disposition Disposition (needs filled in before D/C Order can be placed): Home, Self Care Charges/Coding Visit Charges Inpatient E&M: 69706 Disch Hosp
--- NOTE | 2022-01-01 14:10 | CASEMGMT ---
This RN CM to room to discuss d/c plan and pt states no concerns with going home at time of discharge. Pt states no need for any further therapy at discharge and voices no further questions/concerns/needs. SStaten RN CM
--- NOTE | 2022-01-01 14:36 | PHA.DC.MR ---
Pharmacy Service has performed discharge medication reconciliation for this patient. The patient's discharge medication list was reviewed for discrepancies and discrepancies were resolved. Home Medications ezetimibe 10 mg tablet 10 mg PO QHS cholesterol 09/01/13 pantoprazole 40 mg tablet,delayed release 40 mg PO DAILY gerd 09/01/13 nitroglycerin 0.4 mg sublingual tablet 0.4 mg sublingual Q5M PRN Chest Pain #25 tabs 10/05/18 niacin (inositol niacinate) 500 mg capsule 1,000 mg PO BID supplement 04/12/19 furosemide 20 mg tablet (Lasix) 20 mg PO DAILY FLUID 12/15/20 clopidogrel 75 mg tablet 75 mg PO DAILY blood thinner 04/18/21 levocetirizine 5 mg tablet (Xyzal) 5 mg PO DAILY supplement 07/15/21 cholecalciferol (vitamin D3) 125 mcg (5,000 unit) tablet (Vitamin D3) 125 mcg PO DAILY supplement 09/26/21 ascorbic acid (vitamin C) 1,000 mg tablet 1 g PO DAILY SUPPLEMENT 12/29/21 aspirin 81 mg tablet,delayed release 81 mg PO DAILY HEALTH MAINTENANCE 12/29/21 cyanocobalamin (vitamin B-12) 1,000 mcg tablet 1,000 mcg PO DAILY SUPPLEMENT 12/29/21 ferrous sulfate 325 mg (65 mg iron) tablet (FeroSul) 325 mg PO BIDCM SUPPLEMENT 12/29/21
--- NOTE | 2022-01-01 16:23 | PN_ITS ---
Subjective Subjective Patient underwent enteroscopy yesterday for an acute upper GI bleed. She is doing very well today. She does not have abdominal pain. She is tolerating a diet. Objective Data Objective Data Vital Signs: Vital Signs Temp Pulse Resp BP Pulse Ox O2 Del Method 98.2 F 78 16 137/57 H 96 Room Air 01/01/22 15:46 01/01/22 15:46 01/01/22 15:46 01/01/22 15:46 01/01/22 15:46 01/01/22 15:46 Oxygen Delivery Method Room Air Weight: 121 lb 0.54 oz Body Mass Index (BMI) 22.1 Intake & Output: Intake and Output for Last 24 Hours 12/30/21 12/31/21 01/01/22 23:59 23:59 23:59 Intake Total 3839 / 3839 400 / 400 Balance 3839 / 3839 400 / 400 Medical Nutrition Assessment Dietitian: Malnutrition Criteria Met Start: 12/30/21 1 3:02 Freq: Status: Active Protocol: Document 12/30/21 13:03 RMA (Rec: 12/30/21 13:03 RMA [id number]) Nutrition Malnutrition Evidence of Malnutrition Exists Yes Malnutrition (severe): Chronic Evidenced By Suboptimal Energy Intake ( Severe),Weight Loss (Severe) Clinical Problem Chronic Disease or Condition Related Malnutrition Etiology Severe protein-calorie malnutrition in the context of chronic disease related to inadequate oral intake Signs/Symptoms as evidenced by calculated wt loss~18-20% x past 6-7 months and PO meeting less than 50% estimated nutrition needs Status Active Problem Recommendation Dietitian Recommendations/Changes Given signs/symptoms of malnutrition, will liberalize diet to Regular. Will add 120ml ensure clear 4 times per day w/ medpass as tolerated. Please reweigh patient, will trend weights closely as available. Additional ONS as needed. Restrict carbohydrates in diet as needed if blood glucose rises. Lab / Micro Data Result Diagrams: 01/01/22 06:14 01/01/22 06:14 Labs: Laboratory Results - last 24 hr 12/31/21 21:35: WBC 8.2, RBC 3.80 L, Hgb 9.5 L, Hct 32.5 L, MCV 85.5, MCH 25.0 L , MCHC 29.2 L D, RDW Std Deviation 52.4 H, RDW Coeff of Velasquez 16.8 H, Plt Count 335, MPV 9.9 12/31/21 21:35: Sodium 141, Potassium 4.2, Chloride 105, Carbon Dioxide 30.0, Anion Gap 6, BUN 11, Creatinine 0.83, Estim Creat Clear Calc 42.04, Est GFR (MDRD) Af Amer 85, Est GFR (MDRD) Non-Af 70, BUN/Creatinine Ratio 13.3, Glucose 99, Calcium 9.1, Magnesium 2.1, Total Bilirubin 1.00, AST 25, ALT 20, Alkaline Phosphatase 71, Total Protein 6.7, Albumin 3.4, Globulin 3.3, Albumin/Globulin Ratio 1.0 01/01/22 06:14: WBC 7.8, RBC 3.72 L, Hgb 9.6 L, Hct 31.9 L, MCV 85.8, MCH 25.8 L , MCHC 30.1 L, RDW Std Deviation 53.0 H, RDW Coeff of Velasquez 17.0 H, Plt Count 315, MPV 9.5, Immature Gran % (Auto) 0.100, Neut % (Auto) 76.9 H, Lymph % (Auto) 9.0 L, [place] % (Auto) 7.7, Eos % (Auto) 5.5 H, Baso % (Auto) 0.8, Absolute Neuts (auto) 6.0, Absolute Lymphs (auto) 0.70 L, Nucleated RBC % 0 01/01/22 06:14: Sodium 140, Potassium 3.9, Chloride 106, Carbon Dioxide 30.0, Anion Gap 4 L, BUN 9, Creatinine 0.82, Estim Creat Clear Calc 42.56, Est GFR (MDRD) Af Amer 86, Est GFR (MDRD) Non-Af 71, BUN/Creatinine Ratio 10.9, Glucose 99, Calcium 9.0, Phosphorus 4.2 Physical Exam Narrative GENERAL: cooperative HEENT: Atraumatic; EYES; Anicteric, Normal Conjunctiva NECK; supple, normal thyroid, RESPIRATORY: Diminished to auscultation CARDIOVASCULAR: Regular S1 S2, GI: soft, normoactive bowel sounds, : No Renal angle tenderness; EXTREMITIES: No edema, no clubbing, MUSCULOSKELETAL: no muscle wasting NEURO: Awake; no lateralizing signs. SKIN: No Rash PSYCH; Flat affect Assessment & Plan Assessment/Plan (1) Duodenal arteriovenous malformation: PLAN: Status post endoscopic treatment Of duodenal AVMs. No sign of bleeding at this time. (2) Anemia requiring transfusions: PLAN: Recurrent small bowel GI bleed status post treatment endoscopically. She will need a repeat capsule endoscopy to make sure she does not have any other potential bleeding sources of her small bowel. Recommend oral iron therapy twice a day with vitamin C. Follow-up in the clinic next available visit Charges/Coding Visit Charges Inpatient E&M: 51709 Subs Hosp L2
== END 2022-01-01 17:11 | disposition home or self-care (01) | DRG 377 ==
LOC: ED 20:08 → PCU 20:15
PROVIDERS: Internal Medicine Gastroenterology; Admitting Provider Student in an Organized Health Care Education/Training Program; Emergency Provider Emergency Medicine; PCP Internal Medicine; Visit Provider Internal Medicine
PROC: 0DJ08ZZ Inspection of Upper Intestinal Tract, Via Natural or Artificial Opening Endoscopic (ICD-10-PCS; CPT 43235; principal; 2021-12-31 11:40)
DX: K31.811 Angiodysplasia of stomach and duodenum with bleeding (principal); E43 Unspecified severe protein-calorie malnutrition; K80.50 Calculus of bile duct without cholangitis or cholecystitis without obstruction; E11.9 Type 2 diabetes mellitus without complications; D50.0 Iron deficiency anemia secondary to blood loss (chronic); E53.8 Deficiency of other specified B group vitamins; I48.0 Paroxysmal atrial fibrillation; I77.9 Disorder of arteries and arterioles, unspecified; E78.00 Pure hypercholesterolemia, unspecified; E78.5 Hyperlipidemia, unspecified; K82.8 Other specified diseases of gallbladder; I25.10 Atherosclerotic heart disease of native coronary artery without angina pectoris; I35.9 Nonrheumatic aortic valve disorder, unspecified; I10 Essential (primary) hypertension; K21.9 Gastro-esophageal reflux disease without esophagitis; Z66 Do not resuscitate; Z51.5 Encounter for palliative care; Z79.02 Long term (current) use of antithrombotics/antiplatelets; Z79.82 Long term (current) use of aspirin; Z87.891 Personal history of nicotine dependence; Z95.2 Presence of prosthetic heart valve; Z95.1 Presence of aortocoronary bypass graft
CPT/HCPCS: 36415; 80048; 80053; 80076; 82150; 83690; 83735; 84100; 85025; 85027; 85610; 85730; 86850; 86870; 86900; 86901; 86920; 86921; 86922; 99285; J7030; J7040; J7120; P9016; A4216; J2405

== ENCOUNTER → 2022-01-29 | Outpatient (CLI) | payer MEDICARE, SELFPAY ==
[2022-01-29 17:46] LABS: Absolute Lymphocyte Count 1.14 X10^3/uL (0.83-4.51); Absolute Neutrophil Count 5.8 X10^3/uL (2.0-7.7); Basophil# 0.03 X10^3/uL; Basophil% 0.4 % (0-1); Eosinophil# 0.33 X10^3/uL; Eosinophils% 4.1 % (0-5); Hematocrit 30.8 % (37-47); Hemoglobin 8.9 g/dL (12.0-15.0); Lymphocyte # 1.14 X10^3/ul (0.83-4.51); Lymphocyte % 14.2 % (19-41); Mean Corp Hgb Conc 28.9 g/dL (32-36); Mean Corpuscular Hgb 25.4 pg (27.0-32.0); Mean Corpuscular Volume 87.7 fL (81-99); Mean Platelet Vol. 10.4 fl (6.2-12.0); Monocyte# 0.72 X10^3/uL; NRBC Flagged by Analyzer 0 % (0-5); Neutrophil # 5.78 X10^3/uL (2.7-7.7); Neutrophil % 71.9 % (47-70); Platelet Count 271 K/mm3 (150-450); RBC Distribution Width CV 16.9 % (11.6-14.6); RBC Distribution Width SD 54.2 fl (35.1-43.9); Red Blood Count 3.51 M/mm3 (4.2-5.4)
== END | disposition home or self-care (01) ==
LOC: MTLAB 15:24
PROVIDERS: PCP Internal Medicine; Referring Provider Internal Medicine; Visit Provider Internal Medicine
DX: D64.9 Anemia, unspecified (principal)
CPT/HCPCS: 36415; 85025

== ENCOUNTER → 2022-02-26 | Outpatient (CLI) | payer MEDICARE, SELFPAY ==
[2022-02-26 14:09] LABS: Basophil# 0.04 X10^3/uL; Basophil% 0.5 % (0-1); Eosinophil# 0.39 X10^3/uL; Eosinophils% 4.6 % (0-5); Hematocrit 29.2 % (37-47); Hemoglobin 8.2 g/dL (12.0-15.0); Lymphocyte % 11.9 % (19-41); Mean Corp Hgb Conc 28.1 g/dL (32-36); Mean Corpuscular Hgb 23.8 pg (27.0-32.0); Mean Corpuscular Volume 84.6 fL (81-99); Monocyte# 0.94 X10^3/uL; Monocyte% 11.2 % (0-10); NRBC Flagged by Analyzer 0 % (0-5); Neutrophil # 6.02 X10^3/uL (2.7-7.7); Neutrophil % 71.4 % (47-70); Platelet Count 237 K/mm3 (150-450); RBC Distribution Width SD 49.9 fl (35.1-43.9); Red Blood Count 3.45 M/mm3 (4.2-5.4); White Blood Count 8.4 K/mm3 (4.4-11.0)
[2022-02-26 14:41] LABS: Iron 21 ug/dL (50-170); Iron Binding Capacity,Total 393 ug/dL (250-450); PERCENT IRON SATURATION 5.3 % (15.0-55.0)
[2022-02-26 15:00] LABS: Ferritin 12 ng/mL (8-252)
== END | disposition home or self-care (01) ==
LOC: LAB 13:12
PROVIDERS: PCP Internal Medicine; Referring Provider Internal Medicine Gastroenterology; Visit Provider Internal Medicine Gastroenterology
DX: D64.9 Anemia, unspecified (principal)
CPT/HCPCS: 36415; 82728; 83540; 83550; 85025

== ENCOUNTER → 2022-03-31 | Outpatient (CLI) | payer MEDICARE, SELFPAY ==
[2022-03-31 15:13] LABS: Absolute Lymphocyte Count 0.81 X10^3/uL (0.83-4.51); Absolute Neutrophil Count 7.1 X10^3/uL (2.0-7.7); Basophil# 0.05 X10^3/uL; Basophil% 0.5 % (0-1); Eosinophil# 0.45 X10^3/uL; Eosinophils% 4.8 % (0-5); Hematocrit 31.4 % (37-47); Hemoglobin 8.8 g/dL (12.0-15.0); Lymphocyte # 0.81 X10^3/ul (0.83-4.51); Lymphocyte % 8.7 % (19-41); Mean Corpuscular Hgb 23.1 pg (27.0-32.0); Mean Corpuscular Volume 82.4 fL (81-99); Mean Platelet Vol. 9.7 fl (6.2-12.0); Monocyte% 9.7 % (0-10); NRBC Flagged by Analyzer 0 % (0-5); Neutrophil # 7.07 X10^3/uL (2.7-7.7); Neutrophil % 75.9 % (47-70); Platelet Count 369 K/mm3 (150-450); RBC Distribution Width CV 16.5 % (11.6-14.6); RBC Distribution Width SD 49.5 fl (35.1-43.9); Red Blood Count 3.81 M/mm3 (4.2-5.4); White Blood Count 9.3 K/mm3 (4.4-11.0)
== END | disposition home or self-care (01) ==
LOC: MTLAB 13:14
PROVIDERS: PCP Internal Medicine; Referring Provider Internal Medicine; Visit Provider Internal Medicine
DX: D64.9 Anemia, unspecified (principal)
CPT/HCPCS: 36415; 85025

== ENCOUNTER → 2022-05-24 | Outpatient (CLI) | payer MEDICARE, SELFPAY ==
[2022-05-24 15:42] LABS: Absolute Neutrophil Count 6.3 X10^3/uL (2.0-7.7); Basophil# 0.06 X10^3/uL; Basophil% 0.7 % (0-1); Eosinophil# 0.23 X10^3/uL; Eosinophils% 2.8 % (0-5); Hematocrit 29.6 % (37-47); Hemoglobin 8.6 g/dL (12.0-15.0); Mean Corp Hgb Conc 29.1 g/dL (32-36); Mean Corpuscular Hgb 23.8 pg (27.0-32.0); Mean Corpuscular Volume 81.8 fL (81-99); Mean Platelet Vol. 9.7 fl (6.2-12.0); Monocyte# 0.73 X10^3/uL; Monocyte% 8.7 % (0-10); NRBC Flagged by Analyzer 0 % (0-5); Neutrophil % 75.4 % (47-70); Platelet Count 321 K/mm3 (150-450); RBC Distribution Width CV 17.9 % (11.6-14.6); RBC Distribution Width SD 51.8 fl (35.1-43.9); Red Blood Count 3.62 M/mm3 (4.2-5.4); White Blood Count 8.4 K/mm3 (4.4-11.0)
[2022-05-24 15:57] LABS: Ferritin 9 ng/mL (8-252); Iron 22 ug/dL (50-170); Iron Binding Capacity,Total 457 ug/dL (250-450); PERCENT IRON SATURATION 4.8 % (15.0-55.0)
== END | disposition home or self-care (01) ==
LOC: LAB 13:58
PROVIDERS: PCP Internal Medicine; Referring Provider Internal Medicine Gastroenterology; Visit Provider Internal Medicine Gastroenterology
DX: L40.9 Psoriasis, unspecified (principal); D64.9 Anemia, unspecified; K80.50 Calculus of bile duct without cholangitis or cholecystitis without obstruction
CPT/HCPCS: 36415; 82728; 83540; 83550; 85025

== ENCOUNTER 2022-11-04 18:16 | Inpatient (IN) | payer MEDICARE, SELFPAY ==
[2022-11-04 18:18] VITALS: BP 140/44; PULSE 68; RESP 16; TEMP 36.3; O2SAT 94; BMI 25.9
--- NOTE | 2022-11-04 18:53 | EKG12_ITS ---
Test Reason : ARM PAIN Blood Pressure : / mmHG Vent. Rate : 067 BPM Atrial Rate : 067 BPM P-R Int : 188 ms QRS Dur : 156 ms QT Int : 450 ms P-R-T Axes : 090 -30 135 degrees QTc Int : 475 ms Normal sinus rhythm Left axis deviation Left bundle branch block Abnormal ECG Confirmed by FAYE DELGADILLO, KAREN ([id number]), newspaper managing editor CHRISTIN BARTHOLOMEW ([id number]) on 11/05/2022 12:59:50 PM Referred By: Confirmed By:KAREN MCKINNEY MD
--- NOTE | 2022-11-04 18:54 | EDS_ITS ---
HPI History of Present Illness Chief Complaint: General Illness Informant: patient Onset/Context/Timing Onset: Days (3) Context: Gradual Onset Timing: Continuous Quality: Aching Location: Bilateral lower extremities Worsened by: Movement Relieved by: Nothing Narrative Narrative: Patient presents with lower extremity pain that has been getting worse over the past 3 days. Patient states it is gradually getting worse. Patient states that today she was doing some laundry and felt lightheaded. Patient states she has also had some pain in her right axilla and right scapular area. Patient states this pain radiates up into her neck. Patient describes her pain as aching. Patient states it is worse with certain movements. Patient denies any fevers or chills. Patient denies any nausea or vomiting. Patient does admit to some shortness of breath. Patient denies any chest pain. [facility] Medical History (Updated 11/04/22 @ 22:[address] Ria Leong MD) Atherosclerotic heart disease of [place] coronary artery without angina pectoris Bilateral carotid artery stenosis Biliary colic CAD (coronary artery disease) Jayson's syndrome Essential hypertension Former smoker Gastrointestinal bleeding, upper GERD (gastroesophageal reflux disease) History of left heart catheterization (LHC) (~07/14/20) Hypertension Iron deficiency anemia due to chronic blood loss Nonrheumatic aortic (valve) stenosis [place] (obstructive sleep apnea) Osteoarthritis Paroxysmal atrial fibrillation Psoriasis Pure hypercholesterolemia Sleep disorder TIA (transient ischemic attack) Tobacco abuse Type 2 diabetes mellitus Home Medications ezetimibe 10 mg tablet 10 mg PO QHS cholesterol 09/01/13 [History Last Taken 12/28/21] pantoprazole 40 mg tablet,delayed release 40 mg PO DAILY gerd 09/01/13 [History Last Taken 12/29/21] nitroglycerin 0.4 mg sublingual tablet 0.4 mg sublingual Q5M PRN Chest Pain #25 tabs 10/05/18 [Rx Last Taken 04/12/19] niacin (inositol niacinate) 500 mg capsule 1,000 mg PO BID supplement 04/12/19 [History Last Taken 12/29/21] furosemide 20 mg tablet (Lasix) 20 mg PO DAILY PRN FLUID 12/15/20 [History Last Taken 08/27/21] clopidogrel 75 mg tablet 75 mg PO DAILY blood thinner 04/18/21 [History Last Taken 12/29/21] levocetirizine 5 mg tablet (Xyzal) 5 mg PO DAILY supplement 07/15/21 [History Last Taken 12/28/21] cholecalciferol (vitamin D3) 125 mcg (5,000 unit) tablet (Vitamin D3) 125 mcg PO DAILY supplement 09/26/21 [History Last Taken 12/29/21] ascorbic acid (vitamin C) 1,000 mg tablet 1 g PO DAILY SUPPLEMENT 12/29/21 [ History Last Taken 12/29/21] aspirin 81 mg tablet,delayed release 81 mg PO DAILY HEALTH MAINTENANCE 12/29/21 [History Last Taken 12/28/21] cyanocobalamin (vitamin B-12) 1,000 mcg tablet 1,000 mcg PO DAILY SUPPLEMENT 12/29/21 [History Last Taken 12/29/21] ferrous sulfate 325 mg (65 mg iron) tablet (FeroSul) 325 mg PO BIDCM SUPPLEMENT 12/29/21 [History Last Taken Unknown] tramadol 50 mg tablet 50 mg PO Q12H PRN pain #30 tabs 05/24/22 [Rx Last Taken Unknown] metoprolol tartrate 100 mg tablet 50 mg PO BID 11/04/22 [History Last Taken Unknown] Allergy/AdvReac Type Severity Reaction Status Date / Time Sulfa (Sulfonamide Allergy Severe HEART Verified 11/04/22 18:17 Antibiotics) RACING Latex, Natural Rubber Allergy Rash, Verified 11/04/22 18:17 psioriasis amoxicillin [From Augmentin] AdvReac Nausea Verified 11/04/22 18:17 atorvastatin [From Lipitor] AdvReac Other Verified 11/04/22 18:17 clavulanic acid AdvReac Nausea Verified 11/04/22 18:17 [From Augmentin] Iodinated Contrast Media AdvReac Other Verified 11/04/22 18:17 [CONTRASTS] lisinopril AdvReac Other Verified 11/04/22 18:17 niacin AdvReac Other Verified 11/04/22 18:17 [From Niaspan Extended-Release] red dye AdvReac NEEDS Verified 11/04/22 18:17 FOLLOW-UP rosuvastatin [From Crestor] AdvReac Other Verified 11/04/22 18:17 turkey AdvReac Rash Verified 11/04/22 18:17 Family History Mother Heart disease Diabetes Father Heart disease Cancer Sister Cancer COPD (chronic obstructive pulmonary disease) Surgical History History of aortic valve replacement with bioprosthetic valve (~09/06/13) History of bilateral carotid endarterectomy History of coronary artery bypass surgery (~09/06/13) History of left mastectomy (~1998) History of right mastectomy (~1998) History of tubal ligation Social History household members: none housing: house Smoking Status: Former smoker how long ago did patient quit smokin second hand exposure: No alcohol intake: never substance use type: does not use caffeine: Yes Type: coffee Number of servings: 2 and tea what type of physical activity do you participate in: none franci/judaism: Church seatbelt use: always do you feel safe at home: Yes ROS ROS ED Constitutional Constitutional ED: Denies chills or fever(s) Eyes Eyes: Denies blurry vision or change in vision ENT ENT ED: Denies rhinorrhea or sore throat Cardiovascular Cardiovascular: Denies chest pain or palpitations Respiratory/Chest Respiratory/Chest: Reports dyspnea; Denies cough Gastrointestinal Gastrointestinal: Denies nausea or vomiting Genitourinary Genitourinary ED: Denies dysuria or hematuria Musculoskeletal Musculoskeletal: Reports back pain and neck pain Integumentary Reports rash; Denies abscess Neurologic Neurologic: Denies headache(s) or weakness Allergic/Immunologic Allergic/Immunologic ED: Denies mouth swelling or urticaria EXAM Physical Exam Const Vital Signs: 11/04/22 18:18 11/04/22 18:26 11/04/22 21:41 Temperature 97.4 F L Temperature Source Temporal Pulse Rate 68 69 Respiratory Rate 16 19 H Respiratory Effort Normal Non-Labored Respiratory Pattern Normal Blood Pressure 140/44 H 137/53 H Blood Pressure Mean 76 81 Pulse Ox 94 96 Oxygen Delivery Method Room Air Room Air Positive well nourished and well developed General Appearance ED: well developed and NAD HEENT Reports moist mucous membranes Neck supple and no JVD Chest Wall inspection of chest normal and palpation of chest normal Chest Narrative: There is no tenderness over the chest wall or right axilla. There are no masses palpated. Resp normal respiratory effort and clear to auscultation bilaterally Cardio regular rate and regular rhythm GI normal to inspection, nondistended, normoactive bowel sounds and non-tender Palpation: soft Rectal Exam: normal sphincter tone and heme positive stool; Negative for mass Extremity General Extremety ED: Yes edema General Extremity: edema Neuro oriented x3, CN's II-XII intact bilaterally and no sensory deficits noted Sensorium / Orientation: alert Motor Exam: strength 5/5 throughout Psych mental status grossly normal MDM MDM MDM Narrative Medical decision making narrative: Differential diagnosis includes cardiac dysrhythmia, cardiac ischemia, urinary tract infection, pneumonia, viral illness, electrolyte abnormality, acute kidney injury, and congestive heart failure. EKG will be obtained to assess for cardiac dysrhythmia and cardiac ischemia. Chest x-ray will be obtained to assess for pneumonia. CBC will be obtained to assess for leukocytosis and anemia. Comprehensive metabolic profile will be obtained to assess for electrolyte abnormality, renal function, and hepatic function. Urinalysis will be obtained to assess for urinary tract infection. High-sensitivity troponin will be obtained to assess for cardiac ischemia. Lab Data Attestation: I reviewed the patient's lab results. Lab results narrative: CBC was reviewed. Hemoglobin was low at 6.7 and hematocrit was 23.6. Platelets were normal. Comprehensive metabolic profile was reviewed. BUN was 19 and creatinine was 1.29. The remainder was within normal limits. High-sensitivity troponin was reviewed and was normal at 46. Urinalysis was reviewed. Leukocyte esterase was 500 but there were 0-5 white blood cells. There is 1+ bacteria. Labs: Laboratory Results - last 24 hr 11/04/22 11/04/22 11/04/22 19:35 20:10 21:35 WBC 7.6 RBC 2.73 L Hgb 6.7 L Hct 23.6 L MCV 86.4 MCH 24.5 L MCHC 28.4 L RDW Std Deviation 55.0 H RDW Coeff of Velasquez 17.4 H Plt Count 274 MPV 10.3 Immature Gran % (Auto) 0.400 Neut % (Auto) 74.1 H Lymph % (Auto) 12.3 L [place] % (Auto) 8.7 Eos % (Auto) 3.7 Baso % (Auto) 0.8 Absolute Neuts (auto) 5.6 Absolute Lymphs (auto) 0.93 Nucleated RBC % 0 Sodium 141 Potassium 3.8 Chloride 107 Carbon Dioxide 27.0 Anion Gap 7 BUN 19 H Creatinine 1.29 H Estim Creat Clear Calc 25.37 Est GFR (MDRD) Af Amer 51 L Est GFR (MDRD) Non-Af 42 L BUN/Creatinine Ratio 14.7 Glucose 102 Calcium 8.0 L Total Bilirubin 0.50 AST 19 ALT 19 Alkaline Phosphatase 73 Troponin I High Sens 46 Total Protein 6.6 Albumin 3.3 Globulin 3.3 Albumin/Globulin Ratio 1.0 Urine Color Yellow Urine Clarity Clear Urine pH 6.0 Ur Specific [place] 1.015 Urine Protein 15 H Urine Glucose (UA) Normal Urine Ketones Negative Urine Occult Blood 25 H Urine Nitrite Negative Urine Bilirubin Negative Urine Urobilinogen Normal Ur Leukocyte Esterase 500 H Urine RBC 0 SEEN Urine WBC 0-5 SEEN Ur Squamous Epith Cells 0-5 SEEN Urine Bacteria 1+ Urine Mucus 0 SEEN Blood Type A POSITIVE Antibody Screen NEGATIVE Crossmatch See Detail Radiography Diagnostic Testing: Clinical Impression(s) from Imaging Studies Chest X-Ray 11/04/22 19:44 IMPRESSION: No active pulmonary disease. Cardiomegaly. Electronically Signed: Frankie Felton MD at 20:02 EDT , PA and lateral chest x-ray was obtained. There are 2 views. On my independent interpretation, lung ferrer are clear. There is cardiomegaly. Bony thorax is normal. There is no acute process noted. Radiologist also interpreted the x- ray and agrees. EKG Initial EKG: Attestation: I personally reviewed and interpreted this EKG as follows: Interpretation: Sinus Rhythm (67), LBBB and Non-Specific ST Changes Comments: EKG was obtained. On my independent interpretation, it showed a normal sinus rhythm with a rate of 67. OR interval is within normal limits, QRS interval is prolonged at 156 ms, and QTc interval is 475 ms. There is left axis deviation at -30. There is a left bundle branch block pattern. There are no acute ST or T wave changes. Prior EKG tracings: available for review Prior: Unchanged (11/07/2021) Management Discussion w/another healthcare provider: Hospitalist Additional Tests and Interventions Additional Tests or Interventions: Because of the bacteria in the urine, urine culture was ordered. Because of the anemia, we will for Hemoccult was ordered and was positive. Because of this, blood type and screen was ordered. Crossmatch was ordered. Treatment and Re-Evaluation :: Patient was advised of her findings. Patient is hemodynamically stable. Patient states she has had endoscopy by Dr. Montague in the past. case was discussed with the hospitalist. She stated that the patient had to be transfer red to [facility] and asked because the bleeding site was farther down the small bowel than Dr. Montague could take care of. Hospitalist called Dr. Montague who recommended transferring the patient to [facility] because of this. Case will be discussed with [facility] transfer line to be transferred there. Patient understands and is agreeable with the plan. All questions were answered. Care of the patient will be turned over the oncoming physician pending transfer to [facility]. Discharge Plan Triage Chief Complaint: General Illness ED Provider: David Boyd Dx/Rx/DC Orders Clinical Impression: Gastrointestinal bleeding, Anemia Prescriptions: No Action nitroglycerin 0.4 mg tablet, sublingual 0.4 mg SUBLINGUAL Q5M PRN (Reason: Chest Pain) Qty: 25 1RF levocetirizine [Xyzal] 5 mg tablet 5 mg PO DAILY tramadol 50 mg tablet 50 mg PO Q12H PRN (Reason: pain) Qty: 30 0RF pantoprazole 40 MG tablet 40 mg PO DAILY Patient Comments: stomach acid ezetimibe 10 MG tablet 10 mg PO QHS Patient Comments: cholesterol niacin (inositol niacinate) 500 MG capsule 1,000 mg PO BID furosemide [Lasix] 20 mg Tablet 20 mg PO DAILY PRN (Reason: FLUID) clopidogrel 75 mg tablet 75 mg PO DAILY Hold Instructions: Hold until appointment with Dr. Montague. cholecalciferol (vitamin D3) [Vitamin D3] 125 mcg (5,000 unit) Tablet 125 mcg PO DAILY ascorbic acid (vitamin C) 1,000 mg Tablet 1 g PO DAILY cyanocobalamin (vitamin B-12) 1,000 mcg Tablet 1,000 mcg PO DAILY aspirin 81 mg Tablet,Delayed Release (Dr/Ec) 81 mg PO DAILY ferrous sulfate [FeroSul] 325 mg (65 mg iron) tablet 325 mg PO BIDCM metoprolol tartrate 100 mg tablet 50 mg PO BID Patient Comments: TAKE 1 TABLET BY MOUTH TWICE A DAY Primary Care Provider: Daisha Ramirez Referrals: Daisha Ramirez, [Primary Care Provider] -
[2022-11-04 19:42] LABS: Absolute Lymphocyte Count 0.93 X10^3/uL (0.83-4.51); Absolute Neutrophil Count 5.6 X10^3/uL (2.0-7.7); Basophil# 0.06 X10^3/uL; Basophil% 0.8 % (0-1); Eosinophil# 0.28 X10^3/uL; Eosinophils% 3.7 % (0-5); Hematocrit 23.6 % (37-47); Hemoglobin 6.7 g/dL (12.0-15.0); Lymphocyte # 0.93 X10^3/ul (0.83-4.51); Lymphocyte % 12.3 % (19-41); Mean Corp Hgb Conc 28.4 g/dL (32-36); Mean Corpuscular Hgb 24.5 pg (27.0-32.0); Mean Corpuscular Volume 86.4 fL (81-99); Mean Platelet Vol. 10.3 fl (6.2-12.0); Monocyte# 0.66 X10^3/uL; Monocyte% 8.7 % (0-10); NRBC Flagged by Analyzer 0 % (0-5); Neutrophil # 5.63 X10^3/uL (2.7-7.7); Neutrophil % 74.1 % (47-70); Platelet Count 274 K/mm3 (150-450); RBC Distribution Width CV 17.4 % (11.6-14.6); Red Blood Count 2.73 M/mm3 (4.2-5.4); White Blood Count 7.6 K/mm3 (4.4-11.0)
--- NOTE | 2022-11-04 19:44 | RAD_ITS ---
STUDY: X-RAY CHEST REASON FOR EXAM: Female, 82 years old. Weakness TECHNIQUE: PA and lateral views of the chest. COMPARISON: 07/20/2021 FINDINGS: Status post median sternotomy with left atrial appendage closure device and probable aortic valve prosthesis. Status post bilateral axillary lymph node dissection. The lungs are clear and expanded. There is no demonstrated pleural abnormality. There is moderate cardiac enlargement. Normal mediastinum and erasmo. Normal visualized pulmonary arteries. Normal visualized aortic arch and descending thoracic aorta. Normal visualized thoracic spine. Normal visualized ribs, clavicles, and shoulders. There is no demonstrated abnormality of the visualized soft tissue structures of the upper abdomen. RAD/Chest PA and Lateral IMPRESSION: No active pulmonary disease. Cardiomegaly. Electronically Signed: Frankie Felton MD at 20:02 EDT ,
[2022-11-04 20:01] LABS: AST(SGOT) 19 U/L (15-37); Alanine Aminotransfer ALT/SGPT 19 U/L (13-56); Albumin, Serum 3.3 g/dL (3.2-5.0); Alkaline Phosphatase 73 U/L (45-117); Anion Gap 7 (5-15); BUN 19 mg/dL (7-18); BUN/Creat Ratio 14.7 RATIO (10-20); Chloride 107 mmol/L (98-107); Creatinine, Serum 1.29 mg/dL (0.55-1.02); EST Glomerular Filtration Rate 42 mL/min (>60); Est Glom Filt Rate - Afr Amer 51 mL/min (>60); Estimated Creatinine Clearance 25.37 ml/min; Globulin 3.3 g/dL (2.2-4.2); Glucose 102 mg/dL (74-106); Potassium 3.8 mmol/L (3.5-5.1); Protein, Total 6.6 g/dL (6.4-8.2); Sodium Level 141 mmol/L (136-145); Troponin-I HS 46 pg/mL (3.0-54.0)
[2022-11-04 20:16] LABS: Mucous, Urine 0 SEEN /hpf (<or=2+); Red Blood Cells-Urine 0 SEEN /hpf (0-5)
[2022-11-04 20:34] LABS: Color, Urine Yellow (Yellow); Glucose, Dipstick Normal (Normal); Ketone-Dipstick Negative (Negative); Leukocyte Esterase-Dipstick 500 /ul (Negative); Nitrite-Dipstick Negative (Negative); Occult Blood-Urine 25 /ul (Negative); Protein-Dipstick 15 mg/dl (Negative); Specific Gravity, Urine 1.015 (1.002-1.030); Urine Bilirubin Dipstick Negative (Negative); Urine Clarity Clear (Clear); Urine Urobilinogen Normal (Normal)
[2022-11-04 20:41] LABS: Bacteria 1+ /hpf (None Seen)
[2022-11-04 20:42] LABS: Squamous Epithelial Cells - UA 0-5 SEEN /hpf (5-10); White Blood Cells 0-5 SEEN /hpf (0-5)
[2022-11-04 21:41] VITALS: BP 137/53; PULSE 69; RESP 19; O2SAT 96
[2022-11-04 23:45] VITALS: BP 153/69; PULSE 71; RESP 18; TEMP 36.8; O2SAT 97
[2022-11-05] VITALS (11 sets, daily range): BP systolic 124–153; BP diastolic 55–70; PULSE 67–79; RESP 15–20; TEMP 36.6–36.9; O2SAT 94–99; BMI 26.3; BMI 27.4
[2022-11-05 02:05] LABS: Hematocrit 25.4 % (37-47); Hemoglobin 7.4 g/dL (12.0-15.0)
--- NOTE | 2022-11-05 02:36 | PCM.HP.STD ---
HPI - General General Date of Admission: 11/05/22 Date of Service: 11/05/22 Chief Complaint: LH, dizziness, body aches, dyspnea. HPI Narrative The patient is an 82 y/o F w/ PMHx: Chronic normocytic anemia/Fe deficiency anemia on chronic IV and oral Fe supplementation, CAD s/p CABG, HTN, HLD, Carotid sease s/p BL CEA, GERD, PAF, DEN[place], Hx TIA, Former tobacco use, Valvular heart disease s/p AVR bioprosthetic, Hx Breast CA s/p BL mastectomy, Diabetes mellitus type II, history of GI bleeds following w/ Dr. Montague w/ most recent evaluation 09/14/2019 for ongoing evaluation biliary colic prior which resolved with cholecystectomy with no diarrhea with recommended ongoing nonfat diet for at least 6 weeks as well as chronic anemia/iron deficiency anemia on oral and IV iron transfusions with recommendation for continued oral iron with vitamin C and PPI therapy with history of bleeding duodenal AV malformations causing recurrent transfusion needs with possible future repeat capsule endoscopy needs pending hemoglobin trending as well as history of gastric AVMs posttreatment with again continue PPI therapy who now represents to the [facility] ED on 11/04/2022 with history of lower extremity cramping and pain and gradually worsening with lightheadedness and dizziness on day of presentation more so when she has not been active reported symptoms notably when she was attempting to do laundry with right-sided axilla and scapular discomfort radiating to her neck described as an aching worse with certain movements with no recent fevers or chills, nausea or emesis as well as dyspnea prompting ED evaluation secondary concerns for recurrent anemia. She noted soft normal appearing colored stools at home but did have a dark appearing stool while in the ED. Work-up in the ED included T97.4, heart rate 68, BP 140/44, respiratory rate 16, 94% on room air, CBC with WC 7.6, hemoglobin 6.7, MCV 86.4, platelet 274 without marked shift, CMP with BUN/creatinine 19/1.29, hepatic profile unremarkable, troponin 46, urinalysis with specific gravity 1.015, occult blood 25, negative nitrite however leukocyte Estrace 500 with 1+ urine bacteria but no urine WBCs or RBCs noted with urine culture pending, stool guaiac positive, chest x-ray with no acute cardiopulmonary findings with cardiomegaly. In the ED patient with type and cross for 1 unit PRBC administration. Discussed case with ED physician as well as Dr. Clari BLANCO who recommended given recent capsule with small bowel GI bleeding transfer to tertiary facility for evaluation of the small bowel section which cannot be accessed at [facility]. ED physician contacted [facility] and patient was accepted however they requested repeat hemoglobin following ED PRBC administration completion which was noted to be 7.4. Unfortunately upon re-discussion for transition to [facility] they did note there to be significantly prolonged wait therefore patient admitted pending [facility] bed. [facility] Medical History (Updated 11/04/22 @ 22:[address] Ria Leong MD) Atherosclerotic heart disease of [place] coronary artery without angina pectoris Bilateral carotid artery stenosis Biliary colic CAD (coronary artery disease) Jayson's syndrome Essential hypertension Former smoker Gastrointestinal bleeding, upper GERD (gastroesophageal reflux disease) History of left heart catheterization (LHC) (~07/14/20) Hypertension Iron deficiency anemia due to chronic blood loss Nonrheumatic aortic (valve) stenosis DENVER (obstructive sleep apnea) Osteoarthritis Paroxysmal atrial fibrillation Psoriasis Pure hypercholesterolemia Sleep disorder TIA (transient ischemic attack) Tobacco abuse Type 2 diabetes mellitus Home Medications ezetimibe 10 mg tablet 10 mg PO QHS cholesterol 09/01/13 [History Last Taken 12/28/21] pantoprazole 40 mg tablet,delayed release 40 mg PO DAILY gerd 09/01/13 [History Last Taken 12/29/21] nitroglycerin 0.4 mg sublingual tablet 0.4 mg sublingual Q5M PRN Chest Pain #25 tabs 10/05/18 [Rx Last Taken 04/12/19] niacin (inositol niacinate) 500 mg capsule 1,000 mg PO BID supplement 04/12/19 [History Last Taken 12/29/21] furosemide 20 mg tablet (Lasix) 20 mg PO DAILY PRN FLUID 12/15/20 [History Last Taken 08/27/21] clopidogrel 75 mg tablet 75 mg PO DAILY blood thinner 04/18/21 [History Last Taken 12/29/21] levocetirizine 5 mg tablet (Xyzal) 5 mg PO DAILY supplement 07/15/21 [History Last Taken 12/28/21] cholecalciferol (vitamin D3) 125 mcg (5,000 unit) tablet (Vitamin D3) 125 mcg PO DAILY supplement 09/26/21 [History Last Taken 12/29/21] ascorbic acid (vitamin C) 1,000 mg tablet 1 g PO DAILY SUPPLEMENT 12/29/21 [History Last Taken 12/29/21] aspirin 81 mg tablet,delayed release 81 mg PO DAILY HEALTH MAINTENANCE 12/29/21 [History Last Taken 12/28/21] cyanocobalamin (vitamin B-12) 1,000 mcg tablet 1,000 mcg PO DAILY SUPPLEMENT 12/29/21 [History Last Taken 12/29/21] ferrous sulfate 325 mg (65 mg iron) tablet (FeroSul) 325 mg PO BIDCM SUPPLEMENT 12/29/21 [History Last Taken Unknown] tramadol 50 mg tablet 50 mg PO Q12H PRN pain #30 tabs 05/24/22 [Rx Last Taken Unknown] metoprolol tartrate 100 mg tablet 50 mg PO BID 11/04/22 [History Last Taken Unknown] Allergy/AdvReac Type Severity Reaction Status Date / Time Sulfa (Sulfonamide Allergy Severe HEART Verified 11/04/22 18:17 Antibiotics) RACING Latex, Natural Rubber Allergy Rash, Verified 11/04/22 18:17 psioriasis amoxicillin [From Augmentin] AdvReac Nausea Verified 11/04/22 18:17 atorvastatin [From Lipitor] AdvReac Other Verified 11/04/22 18:17 clavulanic acid AdvReac Nausea Verified 11/04/22 18:17 [From Augmentin] Iodinated Contrast Media AdvReac Other Verified 11/04/22 18:17 [CONTRASTS] lisinopril AdvReac Other Verified 11/04/22 18:17 niacin AdvReac Other Verified 11/04/22 18:17 [From Niaspan Extended-Release] red dye AdvReac NEEDS Verified 11/04/22 18:17 FOLLOW-UP rosuvastatin [From Crestor] AdvReac Other Verified 11/04/22 18:17 turkey AdvReac Rash Verified 11/04/22 18:17 Family History Mother Heart disease Diabetes Father Heart disease Cancer Sister Cancer COPD (chronic obstructive pulmonary disease) Surgical History History of aortic valve replacement with bioprosthetic valve (~09/06/13) History of bilateral carotid endarterectomy History of coronary artery bypass surgery (~09/06/13) History of left mastectomy (~1998) History of right mastectomy (~1998) History of tubal ligation Social History household members: none housing: house Smoking Status: Former smoker how long ago did patient quit smokin second hand exposure: No alcohol intake: never substance use type: does not use caffeine: Yes Type: coffee Number of servings: 2 and tea what type of physical activity do you participate in: none franci/advent: Advent seatbelt use: always do you feel safe at home: Yes ROS ROS Narrative Admission Review of Systems: CONSTITUTIONAL: No weight loss, fever, chills, + weakness or fatigue. HEENT: Eyes: No visual loss, blurred vision, double vision or yellow sclerae. Ears, Nose, Throat: No hearing loss, sneezing, congestion, runny nose or sore throat. SKIN: + psoriatic skin changes. CARDIOVASCULAR: + LH, dizziness, palpitations. No chest pain, chest pressure or chest discomfort, edema, orthopnea, syncopal events. RESPIRATORY: + shortness of breath. No cough or sputum, wheezing, hemoptysis. GASTROINTESTINAL: + + dark appearing stool, more soft. No abdominal pain, anorexia, nausea, emesis. GENITOURINARY: No dysuria, frequency, urgency or retention. NEUROLOGICAL: + LH, dizziness. No headache, syncope, paralysis, ataxia, numbness or tingling in the extremities, focal weakness, change in bowel or bladder control, seizure. MUSCULOSKELETAL: + muscle, back pain, joint pain or stiffness. HEMATOLOGIC: + anemia, bleeding or bruising. LYMPHATICS: No enlarged nodes. No history of splenectomy. PSYCHIATRIC: No history of depression or anxiety. ENDOCRINOLOGIC: No reports of sweating, cold or heat intolerance. No polyuria or polydipsia. ALLERGIES: No history of asthma, hives, eczema or rhinitis. Vital Signs Vital Signs Vital Signs: 11/04/22 18:18 11/04/22 18:26 11/04/22 21:41 Temperature 97.4 F L Temperature Source Temporal Pulse Rate 68 69 Respiratory Rate 16 19 H Respiratory Effort Normal Non-Labored Respiratory Pattern Normal Blood Pressure 140/44 H 137/53 H Blood Pressure Mean 76 81 Pulse Ox 94 96 Oxygen Delivery Method Room Air Room Air Weight Weight: 141 lb Body Mass Index (BMI) 25.9 Physical Exam Narrative Physical Examination: General: Awake, alert, oriented x 3 and cooperative, seated upright in the ED bed in no apparent distress, fatigued appearing. Skin: Pale color, normal turgor, no icterus, no cyanosis. HEENT: AT/NC, EOMI, PERRLA, mildly dry MM, no carotid bruits or JVD noted. Lungs: Mild diminished, greater bases, appropriate effort, no rales, ronchi or wheezing. Heart: Currently regular rate and rhythm; no gallop, rub audible, + SM. Abdomen: Soft, NTTP, ND, hyperactive bowel sounds, no obvious HSM. Extremities: No cyanosis, clubbing, or edema. Neurological: Patient awake, alert, oriented as noted, cognitive function intact; pupils equally reactive to light and accommodation, cranial nerves II-XII grossly normal, moving all 4 extremities, no focal deficits, strength moderately globally decreased secondary to acute presentation. Psychiatric: Affect appears normal, talkative, no acute evidence of depressive or anxiety feelings. Results Lab / Micro Data 11/05/22 02:01 11/04/22 19:35 Labs: Laboratory Results - last 24 hr 11/04/22 19:35: WBC 7.6, RBC 2.73 L, Hgb 6.7 L, Hct 23.6 L, MCV 86.4, MCH 24.5 L, MCHC 28.4 L, RDW Std Deviation 55.0 H, RDW Coeff of Velasquez 17.4 H, Plt Count 274, MPV 10.3, Immature Gran % (Auto) 0.400, Neut % (Auto) 74.1 H, Lymph % (Auto) 12.3 L, Vermilion % (Auto) 8.7, Eos % (Auto) 3.7, Baso % (Auto) 0.8, Absolute Neuts (auto) 5.6, Absolute Lymphs (auto) 0.93, Nucleated RBC % 0, Sodium 141, Potassium 3.8, Chloride 107, Carbon Dioxide 27.0, Anion Gap 7, BUN 19 H, Creatinine 1.29 H, Estim Creat Clear Calc 25.37, Est GFR (MDRD) Af Amer 51 L, Est GFR (MDRD) Non-Af 42 L, BUN/Creatinine Ratio 14.7, Glucose 102, Calcium 8.0 L, Total Bilirubin 0.50, AST 19, ALT 19, Alkaline Phosphatase 73, Troponin I High Sens 46, Total Protein 6.6, Albumin 3.3, Globulin 3.3, Albumin/Globulin Ratio 1.0 11/04/22 20:10: Urine Color Yellow, Urine Clarity Clear, Urine pH 6.0, Ur Specific Watkins 1.015, Urine Protein 15 H, Urine Glucose (UA) Normal, Urine Ketones Negative, Urine Occult Blood 25 H, Urine Nitrite Negative, Urine Bilirubin Negative, Urine Urobilinogen Normal, Ur Leukocyte Esterase 500 H, Urine RBC 0 SEEN, Urine WBC 0-5 SEEN, Ur Squamous Epith Cells 0-5 SEEN, Urine Bacteria 1+, Urine Mucus 0 SEEN 11/04/22 21:35: Crossmatch See Detail Micro: Microbiology 11/04/22 20:49 Stool Stool Occult Blood (ORLY) - Final Occult Blood Positive Radiology Impression Chest X-Ray 11/04/22 19:44 IMPRESSION: No active pulmonary disease. Cardiomegaly. Electronically Signed: Frankie Felton MD at 20:02 EDT , Assessment & Plan Assessment/Plan (1) Gastrointestinal bleeding: PLAN: Plan The patient is an 82 y/o F w/ PMHx: Chronic normocytic anemia/Fe deficiency anemia on chronic IV and oral Fe supplementation, CAD s/p CABG, HTN, HLD, Carotid sease s/p BL CEA, GERD, PAF, [place], Hx TIA, Former tobacco use, Valvular heart disease s/p AVR bioprosthetic, Hx Breast CA s/p BL mastectomy, Diabetes mellitus type II, history of GI bleeds following w/ Friend who now presents to the [facility] ED on 11/04/2022 with history of lower extremity cramping and pain and gradually worsening with lightheadedness and dizziness as well as dyspnea. #1. Acute on Chronic GI Bleed w/ resultant Acute Blood Loss Anemia on chronic normocytic anemia/iron deficiency anemia: Will admit to [facility] telemetry given stable vital signs, maintain on judicious IV fluids, hold antiplatelet therapy, will continue to trend H&H, continue with planned PRBC administration initiated per ED with further as needed pending repeat levels, maintain on IV PPI, allow clears only with n.p.o. status after midnight, plan transfer to [facility] once bed available, continue PRBC administration as needed but from discussions with GI as outpatient capsule study most recently likely small bowel GI bleed. If she does not transfer in the next 24 hours would then plan to involve gastroenterology Dr. Montague until transfer obtained. #2. CAD: Status post CABG, will hold all antiplatelet therapy, clarifying if on metoprolol as had been previously, not on SOCORRO inhibitor or ARB, not on statin therapy but on ezetimibe. #3. Hypertension: Continue home regimen including Lasix with hold parameters especially given presentation #1 and clarifying if on metoprolol as had been prior but not on current list, PRN hydralazine. #4. Hyperlipidemia: Not on statin therapy, will continue ezetimibe. #5. Bilateral carotid stenosis: Status post bilateral CEA, holding antiplatelet therapies as noted with #1, continue hypertensive regimen, anti-hyperlipidemia regimen. #6. History of diabetes mellitus type II: Not on medication, last hemoglobin A1c noted 5.1% 11/10/2021, likely diet controlled, will defer any Accu-Cheks and sliding scale. #7. Valvular heart disease: Status post AVR x 2, bioprosthetic valve, last noted echo 01/01/2021 with normal LV systolic function, EF 55 to 60% with mild concentric LVH, moderate pulmonary hypertension with PASP 55 mmHg, severe MILES 0.77 cm?, mild AI, bioprosthetic AV present. #8. History TIA: Holding antiplatelet therapy, continue hypertensive regimen, continue ezetimibe regimen. #9. PAF: Clarifying if on metoprolol as had been previously but not on current list, not anticoagulant appropriate at this time as noted. #10. Former tobacco use: Encourage continued tobacco cessation. #11. GERD: Maintained on IV PPI as noted. #12. [place]: CPAP q HS if amenable. #13. DVT prophylaxis: SCDs, holding chemoprophylaxis given acute presentation number 1. #14. CODE status: Patient MICHELLE is her niece Yvonne now and LW is in place. Prior it has been her son Don but was changed. Discussed CODE status at length including difference between FULL code, DNR-CCA and DNR-CC status. Following discussions about the differences in these status, requested DNR-CCA, no intubation status. Advanced Care Planning Face to Face Time: 16 minutes. Admission Evaluation Time spent evaluating chart, patient history, patient evaluation, care planning and discussion with specialists: 75 minutes. Charges/Coding Visit Charges Inpatient E&M: 74720 Init Hosp L3 Procedures Hospitalists Procedures: 00171 Advncd Care Plan 30 Min
[2022-11-05] MEDS: 0.9% Normal Saline 1,000 ML 100 ML IV (03:55)
[2022-11-05 06:45] LABS: Absolute Lymphocyte Count 0.97 X10^3/uL (0.83-4.51); Absolute Neutrophil Count 5.1 X10^3/uL (2.0-7.7); Basophil# 0.05 X10^3/uL; Basophil% 0.7 % (0-1); Eosinophil# 0.28 X10^3/uL; Eosinophils% 3.9 % (0-5); Hematocrit 26.6 % (37-47); Hemoglobin 7.6 g/dL (12.0-15.0); Lymphocyte # 0.97 X10^3/ul (0.83-4.51); Lymphocyte % 13.6 % (19-41); Mean Corp Hgb Conc 28.6 g/dL (32-36); Mean Corpuscular Hgb 25.2 pg (27.0-32.0); Mean Corpuscular Volume 88.1 fL (81-99); Mean Platelet Vol. 10.2 fl (6.2-12.0); Monocyte# 0.67 X10^3/uL; Monocyte% 9.4 % (0-10); NRBC Flagged by Analyzer 0 % (0-5); Neutrophil # 5.12 X10^3/uL (2.7-7.7); Neutrophil % 71.8 % (47-70); Platelet Count 251 K/mm3 (150-450); RBC Distribution Width CV 17.2 % (11.6-14.6); RBC Distribution Width SD 55.5 fl (35.1-43.9); Red Blood Count 3.02 M/mm3 (4.2-5.4); White Blood Count 7.1 K/mm3 (4.4-11.0)
[2022-11-05 07:25] LABS: AST(SGOT) 19 U/L (15-37); Alanine Aminotransfer ALT/SGPT 17 U/L (13-56); Albumin, Serum 2.9 g/dL (3.2-5.0); Alkaline Phosphatase 58 U/L (45-117); Anion Gap 4 (5-15); BUN 17 mg/dL (7-18); BUN/Creat Ratio 15.6 RATIO (10-20); Calcium,Total 8.2 mg/dL (8.5-10.1); Chloride 112 mmol/L (98-107); Creatinine, Serum 1.09 mg/dL (0.55-1.02); EST Glomerular Filtration Rate 51 mL/min (>60); Est Glom Filt Rate - Afr Amer 62 mL/min (>60); Estimated Creatinine Clearance 31.47 ml/min; Glucose 88 mg/dL (74-106); Protein, Total 5.9 g/dL (6.4-8.2); Sodium Level 142 mmol/L (136-145)
--- NOTE | 2022-11-05 07:44 | NURSING ---
called [facility] transfer center, aware pt still awaiting bed assignment, no bed at this time
[2022-11-05] MEDS: Lactated Ringers 1,000 ML 75 ML IV (08:27)
[2022-11-05] MEDS: Metoprolol Tartrate 50 MG Tablet PO ×2 (08:32→22:01)
--- NOTE | 2022-11-05 10:00 | CASEMGMT ---
[facility] Discharge Planning Assessment: Face to Face with patient for initial transition planning/care coordination assessment. [facility] introduced self and role at [facility], pt alert, answering questions appropriately, voices understanding and is agreeable to participating in assessment.? Care providers, pharmacy,?and demographics verified. ? Admitting dx: GI Bleed, ABLA PCP: James Specialists: Clari (gastroenterology), Anthony ([facility] fitness coach), Nathanael ([facility] Vascular), [facility] Surgeon Preferred Pharmacy: [facility] Insurance: [employer] [facility] Prescription Benefit:?yes LNOK: son Kolby, aurora Russell (HPOA) Living Arrangements: Pt lives alone in a single story home with no steps to enter. Pt states she is independent with all ADLs including self care and household tasks. Transportation: Pt drives and her niece assists as needed or for long distances DME: cane, walker, tub bench, shower chair, grab bars, transport w/c, medical alert, adjustable bed, glucometer (doesn't use) SNF: none HHC: Had home PT after heart OR ? Plan: Transfer to [facility] for ongoing evaluation and treatment Will continue to monitor and assist with care coordination as needed. Mary Mishra RN CM
--- NOTE | 2022-11-05 11:44 | CASEMGMT ---
RN CM: Tertiary facilities in network with pt's [employer] MCR policy include: [facility], [facility], [facility], Mary Mishra RN CM
--- NOTE | 2022-11-05 15:29 | PN.HOSP_ITS ---
Reason for Visit Reason for Visit: Diagnoses Gastrointestinal hemorrhage, unspecified (11/05/22) Subjective Subjective Follow up acute anemia for occult GI Bleed. Objective Data Objective Data Vital Signs: Vital Signs Temp Pulse Resp BP Pulse Ox O2 Del Method 98.3 F 70 18 153/64 H 98 Room Air 11/05/22 03:47 11/05/22 03:47 11/05/22 03:47 11/05/22 03:47 11/05/22 03:47 11/05/22 03:50 Oxygen Delivery Method Room Air Weight: 143 lb 15.39 oz Body Mass Index (BMI) 26.3 Intake & Output: Intake and Output for Last 24 Hours 11/03/22 11/04/22 11/05/22 23:59 23:59 23:59 Intake Total 0 / 0 510 / 510 Output Total 0 / 0 Balance 0 / 0 510 / 510 Lab / Micro Data 11/05/22 05:50 11/05/22 05:50 Labs: Laboratory Results - last 24 hr 11/04/22 19:35: WBC 7.6, RBC 2.73 L, Hgb 6.7 L, Hct 23.6 L, MCV 86.4, MCH 24.5 L , MCHC 28.4 L, RDW Std Deviation 55.0 H, RDW Coeff of Velasquez 17.4 H, Plt Count 274, MPV 10.3, Immature Gran % (Auto) 0.400, Neut % (Auto) 74.1 H, Lymph % (Auto) 12.3 L, [place] % (Auto) 8.7, Eos % (Auto) 3.7, Baso % (Auto) 0.8, Absolute Neuts (auto) 5.6, Absolute Lymphs (auto) 0.93, Nucleated RBC % 0, Sodium 141, Potassium 3.8, Chloride 107, Carbon Dioxide 27.0, Anion Gap 7, BUN 19 H, Creatinine 1.29 H, Estim Creat Clear Calc 25.37, Est GFR (MDRD) Af Amer 51 L, Est GFR (MDRD) Non-Af 42 L, BUN/Creatinine Ratio 14.7, Glucose 102, Calcium 8.0 L, Total Bilirubin 0.50, AST 19, ALT 19, Alkaline Phosphatase 73, Troponin I High Sens 46, Total Protein 6.6, Albumin 3.3, Globulin 3.3, Albumin/Globulin Ratio 1.0 11/04/22 20:10: Urine Color Yellow, Urine Clarity Clear, Urine pH 6.0, Ur Specific [place] 1.015, Urine Protein 15 H, Urine Glucose (UA) Normal, Urine Ketones Negative, Urine Occult Blood 25 H, Urine Nitrite Negative, Urine Bilirubin Negative, Urine Urobilinogen Normal, Ur Leukocyte Esterase 500 H, Urine RBC 0 SEEN, Urine WBC 0-5 SEEN, Ur Squamous Epith Cells 0-5 SEEN, Urine Bacteria 1+, Urine Mucus 0 SEEN 11/04/22 21:35: Blood Type A POSITIVE, Antibody Screen NEGATIVE, Crossmatch See Detail 11/05/22 02:01: Hgb 7.4 L, Hct 25.4 L 11/05/22 05:50: WBC 7.1, RBC 3.02 L, Hgb 7.6 L, Hct 26.6 L, MCV 88.1, MCH 25.2 L , MCHC 28.6 L, RDW Std Deviation 55.5 H, RDW Coeff of Velasquez 17.2 H, Plt Count 251, MPV 10.2, Immature Gran % (Auto) 0.600, Neut % (Auto) 71.8 H, Lymph % (Auto) 13.6 L, [place] % (Auto) 9.4, Eos % (Auto) 3.9, Baso % (Auto) 0.7, Absolute Neuts (auto) 5.1, Absolute Lymphs (auto) 0.97, Nucleated RBC % 0 Micro: Microbiology 11/04/22 20:49 Stool Stool Occult Blood (ORLY) - Final Occult Blood Positive Radiography Diagnostic Testing: Radiology Impression Chest X-Ray 11/04/22 19:44 IMPRESSION: No active pulmonary disease. Cardiomegaly. Electronically Signed: Frankie Felton MD at 20:02 EDT , Physical Exam Narrative Patient denies obvious external bleeding. She states she had lap agnes in [facility] in June 2022 Assessment & Plan Assessment/Plan (1) Gastrointestinal bleeding: QUALIFIERS: GI bleed type/associated pathology: unspecified gastrointestinal hemorrhage type Qualified Code(s): K92.2 - Gastrointestinal hemorrhage, unspecified PLAN: Plan The patient is an 82 y/o F Who came to ED for lower extremity pain and cramping for past 3 days progressively getting worse. She also felt lightheaded while doing laundry. Patient also complaining of aching pain over right axilla and scapula radiating to the neck as fever or chills. #1. Acute on Chronic GI Bleed complicating into acute blood loss anemia on chronic normocytic anemia/iron deficiency anemia most likely from small pan l/occult GI bleed: [facility] pending transfer to [facility] as advised by Dr. Montague. Bleeding site was further down the small bowel that Dr. Montague could reach. Patient had 1 unit of PRBC transfusion done. Last hemoglobin 7.6. 250 mg IV iron ordered. Stool for occult blood positive. Capsule endoscopy in August 11, 2021 found multiple bleeding lesions starting at 20 minutes. Microbiology Past 72 Hours 11/04/22 20:49 Stool Stool Occult Blood (ORLY) - Final Occult Blood Positive Laboratory Results 11/04/22 19:35: WBC 7.6, RBC 2.73 L, Hgb 6.7 L, Hct 23.6 L, MCV 86.4, MCH 24.5 L , MCHC 28.4 L, RDW Std Deviation 55.0 H, RDW Coeff of Velasquez 17.4 H, Plt Count 274, MPV 10.3, Immature Gran % (Auto) 0.400, Neut % (Auto) 74.1 H, Lymph % (Auto) 12.3 L, [place] % (Auto) 8.7, Eos % (Auto) 3.7, Baso % (Auto) 0.8, Absolute Neuts (auto) 5.6, Absolute Lymphs (auto) 0.93, Nucleated RBC % 0, Sodium 141, Potassium 3.8, Chloride 107, Carbon Dioxide 27.0, Anion Gap 7, BUN 19 H, Creatinine 1.29 H, Estim Creat Clear Calc 25.37, Est GFR (MDRD) Af Amer 51 L, Est GFR (MDRD) Non-Af 42 L, BUN/Creatinine Ratio 14.7, Glucose 102, Calcium 8.0 L, Total Bilirubin 0.50, AST 19, ALT 19, Alkaline Phosphatase 73, Troponin I High Sens 46, Total Protein 6.6, Albumin 3.3, Globulin 3.3, Albumin/Globulin Ratio 1.0 11/04/22 20:10: Urine Color Yellow, Urine Clarity Clear, Urine pH 6.0, Ur Specific [place] 1.015, Urine Protein 15 H, Urine Glucose (UA) Normal, Urine Ketones Negative, Urine Occult Blood 25 H, Urine Nitrite Negative, Urine Bilirubin Negative, Urine Urobilinogen Normal, Ur Leukocyte Esterase 500 H, Urine RBC 0 SEEN, Urine WBC 0-5 SEEN, Ur Squamous Epith Cells 0-5 SEEN, Urine Bacteria 1+, Urine Mucus 0 SEEN 11/04/22 21:35: Blood Type A POSITIVE, Antibody Screen NEGATIVE, Crossmatch See Detail 11/05/22 02:01: Hgb 7.4 L, Hct 25.4 L 11/05/22 05:50: WBC 7.1, RBC 3.02 L, Hgb 7.6 L, Hct 26.6 L, MCV 88.1, MCH 25.2 L , MCHC 28.6 L, RDW Std Deviation 55.5 H, RDW Coeff of Velasquez 17.2 H, Plt Count 251, MPV 10.2, Immature Gran % (Auto) 0.600, Neut % (Auto) 71.8 H, Lymph % (Auto) 13.6 L, [place] % (Auto) 9.4, Eos % (Auto) 3.9, Baso % (Auto) 0.7, Absolute Neuts (auto) 5.1, Absolute Lymphs (auto) 0.97, Nucleated RBC % 0, Sodium 142, Potassium 4.0, Chloride 112 H, Carbon Dioxide 26.0, Anion Gap 4 L, BUN 17, Creatinine 1.09 H, Estim Creat Clear Calc 31.47, Est GFR (MDRD) Af Amer 62, Est GFR (MDRD) Non-Af 51 L, BUN/Creatinine Ratio 15.6, Glucose 88, Calcium 8.2 L, Total Bilirubin 0.90, AST 19, ALT 17, Alkaline Phosphatase 58, Total Protein 5.9 L, Albumin 2.9 L, Globulin 3.0, Albumin/Globulin Ratio 1.0 #2. CAD: Status post CABG: All antiplatelet agents are on hold. Patient on metoprolol and ezetimibe. Not on SOCORRO inhibitor or ARB, not on statin therapy #3. Hypertension: Continue home regimen including Lasix with hold parameters #4. Hyperlipidemia: continue ezetimibe. #5. Bilateral carotid stenosis: Status post bilateral CEA as mentioned above. On antihypertensive medications #6. History of diabetes mellitus type II: Not on medication, last hemoglobin A1c noted 5.1% 11/10/2021. #7. Valvular heart disease: Status post AVR x 2, bioprosthetic valve, last noted echo 01/01/2021 with normal LV systolic function, EF 55 to 60% with mild concentric LVH, moderate pulmonary hypertension with PASP 55 mmHg, severe MILES 0.77 cm?, mild AI, bioprosthetic AV present. She had first AVR in 2013 along with CABG and second TAVR in November 2021 #8. History TIA: Holding antiplatelet therapy, continue hypertensive regimen, continue ezetimibe regimen. #9. PAF: Patient not on anticoagulant treatment. Already on metoprolol. #10. Former tobacco use: Encourage continued tobacco cessation. #11. GERD: Maintained on IV PPI as noted. #12. [place]: CPAP q HS if amenable. #13. DVT prophylaxis: SCDs, holding chemoprophylaxis given acute presentation number 1. #14. CODE status: Patient MICHELLE is her niece Yvonne now and LW is in place. Prior it has been her son Don but was changed. Discussed CODE status at length including difference between FULL code, DNR-CCA and DNR-CC status. Charges/Coding Visit Charges Inpatient E&M: 63153 Subs Hosp L2
--- NOTE | 2022-11-05 16:15 | NURSING ---
talked with Nata at [facility] transfer center, aware still no bed assignment available for patient.
[2022-11-05] MEDS: Ezetimibe 10 MG Tablet PO (22:01)
--- NOTE | 2022-11-05 23:53 | CPS ---
Patient refused PAP therapy for the night. Stated that she doesn't wear one at home.
[2022-11-06] VITALS (7 sets, daily range): BP systolic 126–149; BP diastolic 54–59; PULSE 67–77; RESP 16–18; TEMP 36.6–36.7; O2SAT 93–100; BMI 28.1
[2022-11-06 06:57] LABS: Anion Gap 5 (5-15); BUN 15 mg/dL (7-18); BUN/Creat Ratio 12.6 RATIO (10-20); Calcium,Total 8.1 mg/dL (8.5-10.1); Chloride 111 mmol/L (98-107); Creatinine, Serum 1.19 mg/dL (0.55-1.02); EST Glomerular Filtration Rate 46 mL/min (>60); Est Glom Filt Rate - Afr Amer 56 mL/min (>60); Estimated Creatinine Clearance 28.83 ml/min; Glucose 107 mg/dL (74-106); Potassium 4.3 mmol/L (3.5-5.1); Sodium Level 142 mmol/L (136-145)
[2022-11-06 07:00] LABS: Absolute Lymphocyte Count 0.64 X10^3/uL (0.83-4.51); Basophil# 0.04 X10^3/uL; Basophil% 0.6 % (0-1); Eosinophil# 0.28 X10^3/uL; Eosinophils% 4.4 % (0-5); Hematocrit 38.9 % (37-47); Hemoglobin 11.3 g/dL (12.0-15.0); Lymphocyte # 0.64 X10^3/ul (0.83-4.51); Mean Corpuscular Hgb 25.4 pg (27.0-32.0); Mean Corpuscular Volume 87.4 fL (81-99); Mean Platelet Vol. 9.6 fl (6.2-12.0); Monocyte# 0.41 X10^3/uL; Monocyte% 6.4 % (0-10); NRBC Flagged by Analyzer 0 % (0-5); Neutrophil # 4.99 X10^3/uL (2.7-7.7); Platelet Count 164 K/mm3 (150-450); RBC Distribution Width CV 17.3 % (11.6-14.6); RBC Distribution Width SD 56.1 fl (35.1-43.9); Red Blood Count 4.45 M/mm3 (4.2-5.4); White Blood Count 6.4 K/mm3 (4.4-11.0)
[2022-11-06] MEDS: Metoprolol Tartrate 50 MG Tablet PO ×2 (10:59→22:29)
[2022-11-06] MEDS: 0.9% Saline Lock 10 ML Syringe IV ×3 (11:31→22:30)
--- NOTE | 2022-11-06 16:19 | PCM.PN.HOSP ---
Reason for Visit Reason for Visit: Diagnoses Gastrointestinal hemorrhage, unspecified (11/05/22) Subjective Subjective Follow-up for acute anemia possible occult GI bleed. Objective Data Objective Data Vital Signs: Vital Signs Temp Pulse Resp BP Pulse Ox O2 Del Method 98.0 F 69 18 126/57 H 97 Room Air 11/06/22 10:53 11/06/22 10:59 11/06/22 10:53 11/06/22 10:53 11/06/22 10:53 11/06/22 10:53 Oxygen Delivery Method Room Air Weight: 153 lb 0.013 oz Body Mass Index (BMI) 28.1 Intake & Output: Intake and Output for Last 24 Hours 11/04/22 11/05/22 11/06/22 23:59 23:59 23:59 Intake Total 0 / 0 2537.92 / 2537.92 2029 Output Total 0 / 0 Balance 0 / 0 2537.92 / 2537.92 2029 Lab / Micro Data 11/06/22 05:48 11/06/22 05:48 Labs: Laboratory Results - last 24 hr 11/06/22 05:48: WBC 6.4, RBC 4.45, Hgb 11.3 L, Hct 38.9, MCV 87.4, MCH 25.4 L, MCHC 29.0 L, RDW Std Deviation 56.1 H, RDW Coeff of Velasquez 17.3 H, Plt Count 164, MPV 9.6, Immature Gran % (Auto) 0.600, Neut % (Auto) 78.0 H, Lymph % (Auto) 10.0 L, Lamb % (Auto) 6.4, Eos % (Auto) 4.4, Baso % (Auto) 0.6, Absolute Neuts (auto) 5.0, Absolute Lymphs (auto) 0.64 L, Nucleated RBC % 0, Sodium 142, Potassium 4.3, Chloride 111 H, Carbon Dioxide 26.0, Anion Gap 5, BUN 15, Creatinine 1.19 H, Estim Creat Clear Calc 28.83, Est GFR (MDRD) Af Amer 56 L, Est GFR (MDRD) Non-Af 46 L, BUN/Creatinine Ratio 12.6, Glucose 107 H, Calcium 8.1 L Micro: Microbiology 11/05/22 16:10 Urine, Clean Catch Urine Culture - Preliminary Mixed Gram Positive Organisms 11/04/22 20:49 Stool Stool Occult Blood (ORLY) - Final Occult Blood Positive Physical Exam Narrative Patient denies obvious external bleeding. She states she had lap agnes in [facility] in July 2022 Patient hemoglobin is 11.3. Patient frustrated with staying here. No external bleeding since admission. General: Alert, Oriented x3, Cooperative, BMI 28.0 kg/m? HEENT: Atraumatic, PERRLA, EOMI, Normocephalic Oral: Oral mucosa moist. No Gingival or Mucosal Lesions/ Ulcerations Neck: Supple, No JVD, Negative Carotid Bruits Lungs: Air entry diminished in bilateral lung bases. No crepitation/rhonchi Cardiovascular: Regular rate, Regular Rhythm, Normal S1, Normal S2, No murmurs Abdomen: Bowel Sounds Present, Soft, Non Tender, Non-Distended. No hepatosplenomegaly. : No renal angle tenderness. No suprapubic tenderness. Extremities: No edema, Capillary Refill Less than 3 Seconds Skin: No rashes, No breakdown Musculoskeletal: No Tenderness to Palpation of Joints or Extremities Neurological: Cranial nerves II-XII grossly intact, DTR 2+/4 and Symmetrical, Neuro grossly intact Psych/Mental Status: Normal Affect, Appropriate. Assessment & Plan Assessment/Plan (1) Gastrointestinal bleeding: QUALIFIERS: GI bleed type/associated pathology: unspecified gastrointestinal hemorrhage type Qualified Code(s): K92.2 - Gastrointestinal hemorrhage, unspecified PLAN: Plan The patient is an 82 y/o F Who came to ED for lower extremity pain and cramping for past 3 days progressively getting worse. She also felt lightheaded while doing laundry. Patient also complaining of aching pain over right axilla and scapula radiating to the neck as fever or chills. #1. Acute on Chronic GI Bleed complicating into acute blood loss anemia on chronic normocytic anemia/iron deficiency anemia most likely from small bowel/occult GI bleed: Patient is admitted on [facility] floor in interim while pending transfer to [facility] as advised by Dr. Montague. Bleeding site was further down the small bowel that Dr. Montague could reach. Patient had 1 unit of PRBC transfusion done. Last hemoglobin 7.6. 250 mg IV iron ordered. Stool for occult blood positive. Capsule endoscopy in August 11, 2021 found multiple bleeding lesions starting at 20 minutes. 11/06: Hemoglobin is 11.3 improved after 1 unit of PRBC transfusion and iron infusion. I called [facility] they do not have bed yet. Patient frustrated. She wants to go home but advised that she needs a small bowel endoscopy to find source of occult bleeding. Urine culture shows mixed gram-positive organism. No UTI. Patient not on antibiotic #2. CAD: Status post CABG: All antiplatelet agents are on hold. Patient on metoprolol and ezetimibe. Not on SOCORRO inhibitor or ARB, not on statin therapy #3. Hypertension: Continue home regimen including Lasix with hold parameters #4. Hyperlipidemia: continue ezetimibe. #5. Bilateral carotid stenosis: Status post bilateral CEA as mentioned above. On antihypertensive medications #6. History of diabetes mellitus type II: Not on medication, last hemoglobin A1c noted 5.1% 11/10/2021. #7. Valvular heart disease: Status post AVR x 2, bioprosthetic valve, last noted echo 01/01/2021 with normal LV systolic function, EF 55 to 60% with mild concentric LVH, moderate pulmonary hypertension with PASP 55 mmHg, severe MILES 0.77 cm?, mild AI, bioprosthetic AV present. She had first AVR in 2013 along with CABG and second TAVR in November 2021 #8. History TIA: Holding antiplatelet therapy, continue hypertensive regimen, continue ezetimibe regimen. #9. PAF: Patient not on anticoagulant treatment. Already on metoprolol. #10. Former tobacco use: Encourage continued tobacco cessation. #11. GERD: Maintained on IV PPI as noted. #12. [place]: CPAP q HS if amenable. #13. DVT prophylaxis: SCDs, holding chemoprophylaxis given acute presentation number 1. #14. CODE status: Patient MICHELLE is her niece Yvonne now and LW is in place. Prior it has been her son Don but was changed. Discussed CODE status at length including difference between FULL code, DNR-CCA and DNR-CC status. Charges/Coding Visit Charges Inpatient E&M: 33643 Subs Hosp L2
[2022-11-06] MEDS: Ezetimibe 10 MG Tablet PO (22:29)
[2022-11-07 05:24] VITALS: BP 112/40; PULSE 70; RESP 18; TEMP 36.9; O2SAT 96
[2022-11-07 06:00] VITALS: BMI 27.6
[2022-11-07 06:08] LABS: Absolute Neutrophil Count 7.3 X10^3/uL (2.0-7.7); Basophil# 0.06 X10^3/uL; Basophil% 0.6 % (0-1); Eosinophil# 0.45 X10^3/uL; Eosinophils% 4.7 % (0-5); Hemoglobin 7.7 g/dL (12.0-15.0); Lymphocyte % 9.3 % (19-41); Mean Corp Hgb Conc 29.6 g/dL (32-36); Mean Corpuscular Hgb 26.1 pg (27.0-32.0); Mean Corpuscular Volume 88.1 fL (81-99); Monocyte# 0.91 X10^3/uL; Monocyte% 9.4 % (0-10); NRBC Flagged by Analyzer 0.2 % (0-5); Neutrophil % 75.7 % (47-70); Platelet Count 270 K/mm3 (150-450); RBC Distribution Width CV 17.5 % (11.6-14.6); RBC Distribution Width SD 56.7 fl (35.1-43.9); Red Blood Count 2.95 M/mm3 (4.2-5.4); White Blood Count 9.7 K/mm3 (4.4-11.0)
[2022-11-07 06:35] LABS: Anion Gap 4 (5-15); BUN 8 mg/dL (7-18); BUN/Creat Ratio 7.5 RATIO (10-20); Calcium,Total 8.2 mg/dL (8.5-10.1); Chloride 113 mmol/L (98-107); Creatinine, Serum 1.07 mg/dL (0.55-1.02); EST Glomerular Filtration Rate 52 mL/min (>60); Est Glom Filt Rate - Afr Amer 63 mL/min (>60); Estimated Creatinine Clearance 32.06 ml/min; Glucose 88 mg/dL (74-106); Potassium 4.4 mmol/L (3.5-5.1); Sodium Level 143 mmol/L (136-145)
[2022-11-07 07:29] VITALS: O2SAT 95
[2022-11-07 09:40] VITALS: BP 161/68; PULSE 87; RESP 18; TEMP 36.8; O2SAT 95
[2022-11-07 09:45] VITALS: PULSE 87
[2022-11-07] MEDS: Metoprolol Tartrate 50 MG Tablet PO (09:45)
[2022-11-07] MEDS: 0.9% Saline Lock 10 ML Syringe IV ×2 (09:54→12:27)
--- NOTE | 2022-11-07 10:20 | PCM.PN.HOSP ---
Reason for Visit Reason for Visit: Diagnoses Gastrointestinal hemorrhage, unspecified (11/05/22) Subjective Subjective Patient hemoglobin is 7.7. IV iron ordered. Objective Data Objective Data Vital Signs: Vital Signs Temp Pulse Resp BP Pulse Ox O2 Del Method 98.2 F 87 18 161/68 H 95 Room Air 11/07/22 09:40 11/07/22 09:45 11/07/22 09:40 11/07/22 09:40 11/07/22 09:40 11/07/22 09:40 Oxygen Delivery Method Room Air Weight: 150 lb 5.684 oz Body Mass Index (BMI) 27.6 Intake & Output: Intake and Output for Last 24 Hours 11/05/22 11/06/22 11/07/22 23:59 23:59 23:59 Intake Total 2537.92 / 2537.92 2640 / 2640 500 / 500 Output Total 0 / 0 Balance 2537.92 / 2537.92 2640 / 2640 500 / 500 Lab / Micro Data 11/07/22 05:22 11/07/22 05:22 Labs: Laboratory Results - last 24 hr 11/07/22 05:22: WBC 9.7, RBC 2.95 L, Hgb 7.7 L, Hct 26.0 L, MCV 88.1, MCH 26.1 L, MCHC 29.6 L, RDW Std Deviation 56.7 H, RDW Coeff of Velasquez 17.5 H, Plt Count 270, MPV 10.0, Immature Gran % (Auto) 0.300, Neut % (Auto) 75.7 H, Lymph % (Auto) 9.3 L, [place] % (Auto) 9.4, Eos % (Auto) 4.7, Baso % (Auto) 0.6, Absolute Neuts (auto) 7.3, Absolute Lymphs (auto) 0.90, Nucleated RBC % 0.2, Sodium 143, Potassium 4.4, Chloride 113 H, Carbon Dioxide 26.0, Anion Gap 4 L, BUN 8, Creatinine 1.07 H, Estim Creat Clear Calc 32.06, Est GFR (MDRD) Af Amer 63, Est GFR (MDRD) Non-Af 52 L, BUN/Creatinine Ratio 7.5 L, Glucose 88, Calcium 8.2 L Micro: Microbiology 11/05/22 16:10 Urine, Clean Catch Urine Culture - Final Mixed Gram Positive Organisms 11/04/22 20:49 Stool Stool Occult Blood (ORLY) - Final Occult Blood Positive Physical Exam Narrative Patient has a history of chronic iron deficiency anemia and saw egg setter Dr. Villafuerte in July 2021. Patient denies obvious external bleeding. She states she had lap agnes in [facility] in July 2022. She also has right breast cancer status post bilateral mastectomy in 1998. Hemoglobin dropped to 7.8 from 9.3 yesterday. Unclear is lab error or real. Patient had bowel movement in the morning and does not look red/brown or black. Patient dots in both eyes after restart of iron infusion. This started about 20 minutes ago. CTA pneumology ordered. No other focal symptoms. Physical exam: General: Alert, Oriented x3, Cooperative, BMI 28.0 kg/m? HEENT: Atraumatic, PERRLA, EOMI, Normocephalic Oral: Oral mucosa moist. No Gingival or Mucosal Lesions/ Ulcerations Neck: Supple, No JVD, Negative Carotid Bruits Lungs: Air entry diminished in bilateral lung bases. No crepitation/rhonchi Cardiovascular: Regular rate, Regular Rhythm, Normal S1, Normal S2, artificial aortic valve click present Abdomen: Bowel Sounds Present, Soft, Non Tender, Non-Distended. No hepatosplenomegaly. : No renal angle tenderness. No suprapubic tenderness. Extremities: No edema, Capillary Refill Less than 3 Seconds Skin: No rashes, No breakdown Musculoskeletal: No Tenderness to Palpation of Joints or Extremities Neurological: Cranial nerves II-XII grossly intact, DTR 2+/4 and Symmetrical, Neuro grossly intact Psych/Mental Status: Normal Affect, Appropriate. Assessment & Plan Assessment/Plan (1) Gastrointestinal bleeding: QUALIFIERS: GI bleed type/associated pathology: unspecified gastrointestinal hemorrhage type Qualified Code(s): K92.2 - Gastrointestinal hemorrhage, unspecified PLAN: Plan The patient is an 82 y/o F Who came to ED for lower extremity pain and cramping for past 3 days progressively getting worse. She also felt lightheaded while doing laundry. Patient also complaining of aching pain over right axilla and scapula radiating to the neck as fever or chills. #1. Acute on Chronic GI Bleed complicating into acute blood loss anemia on chronic normocytic anemia/iron deficiency anemia most likely from small bowel/occult GI bleed: Patient is admitted on MedSurg floor in interim while pending transfer to [facility] as advised by Dr. Montague. Bleeding site was further down the small bowel that Dr. Montague could reach. Patient had 1 unit of PRBC transfusion done. Last hemoglobin 7.6. 250 mg IV iron ordered. Stool for occult blood positive. Capsule endoscopy in August 11, 2021 found multiple bleeding lesions starting at 20 minutes. 11/07: Hemoglobin 7.7. Iron infusion 250 mg IV ordered. With patient getting an infusion she is seeing dots in both eyes. IV iron infusion started. She has history of bilateral carotid endarterectomy for history of TIA and bilateral carotid stenosis. CT head without contrast ordered. History is not suggestive of stroke. Patient is also of anxious personality. She is very particular and precise with her medications administration. I talked to given clinical business analyst myself on 11/06/2022 for distill. Not open. Possible today evening. #2. CAD: Status post CABG: All antiplatelet agents are on hold. Patient on metoprolol and ezetimibe. Not on SOCORRO inhibitor or ARB, not on statin therapy #3. Hypertension: Continue home regimen including Lasix with hold parameters #4. Hyperlipidemia: continue ezetimibe. #5. Bilateral carotid stenosis: Status post bilateral CEA as mentioned above. On antihypertensive medications #6. History of diabetes mellitus type II: Not on medication, last hemoglobin A1c noted 5.1% 11/10/2021. #7. Valvular heart disease: Status post AVR x 2, bioprosthetic valve, last noted echo 01/01/2021 with normal LV systolic function, EF 55 to 60% with mild concentric LVH, moderate pulmonary hypertension with PASP 55 mmHg, severe MILES 0.77 cm?, mild AI, bioprosthetic AV present. She had first AVR in 2013 along with CABG and second TAVR in November 2021 #8. History TIA: Holding antiplatelet therapy, continue hypertensive regimen, continue ezetimibe regimen. #9. PAF: Patient not on anticoagulant treatment. Already on metoprolol. #10. Former tobacco use: Encourage continued tobacco cessation. #11. GERD: Maintained on IV PPI as noted. #12. [place]: CPAP q HS if amenable. #13. DVT prophylaxis: SCDs, holding chemoprophylaxis given acute presentation number 1. #14. CODE status: Patient MICHELLE is her niece Yvonne now and LW is in place. Prior it has been her son Don but was changed. Discussed CODE status at length including difference between FULL code, DNR-CCA and DNR-CC status. Microbiology Past 72 Hours 11/05/22 16:10 Urine, Clean Catch Urine Culture - Final Mixed Gram Positive Organisms 11/04/22 20:49 Stool Stool Occult Blood (ORLY) - Final Occult Blood Positive Laboratory Results 11/07/22 05:22: WBC 9.7, RBC 2.95 L, Hgb 7.7 L, Hct 26.0 L, MCV 88.1, MCH 26.1 L, MCHC 29.6 L, RDW Std Deviation 56.7 H, RDW Coeff of Velasquez 17.5 H, Plt Count 270, MPV 10.0, Immature Gran % (Auto) 0.300, Neut % (Auto) 75.7 H, Lymph % (Auto) 9.3 L, [place] % (Auto) 9.4, Eos % (Auto) 4.7, Baso % (Auto) 0.6, Absolute Neuts (auto) 7.3, Absolute Lymphs (auto) 0.90, Nucleated RBC % 0.2, Sodium 143, Potassium 4.4, Chloride 113 H, Carbon Dioxide 26.0, Anion Gap 4 L, BUN 8, Creatinine 1.07 H, Estim Creat Clear Calc 32.06, Est GFR (MDRD) Af Amer 63, Est GFR (MDRD) Non-Af 52 L, BUN/Creatinine Ratio 7.5 L, Glucose 88, Calcium 8.2 L Charges/Coding Visit Charges Inpatient E&M: 44376 Subs Hosp L2
--- NOTE | 2022-11-07 12:05 | NURSING ---
This Nurse called to room by pt asking for Nurse to urgently come see her. PT states, I'm having a TIA. pt states she has had TIA's in the past and I know what its like. Pt states she gets dots in her eyes when she has a TIA. Pt states dot is in both eyes. Pt denies BUENO, Double vision, Loss of Vision. Pt also states her hip hurts and the double vision is all from the iron and the iron infusion is giving her the TIA. This RN stopped the Iron infusion and this RN called dr. Costa to inform. Tongue midline, smile is even, no drooping, hand grasp strong and equal. BS was 101. BP 145/71 Hr 74 with initial assessment, Pt A&OX3 but getting agitated with staff when asking question more then once. Dr. Costa is aware of all the above. 2nd set of Vitals, 149/62, HR 78. spo2 95% on RA. At this time as RN has typed this Note pt states that dots in eyes is gone. it does that only lasts 15minutes usually.
--- NOTE | 2022-11-07 12:11 | CT_ITS ---
INDICATION: TIA EXAMINATION: CT BRAIN - CT Head or Brain W/O Contrast Injection TECHNIQUE: Multiple axial images were obtained of the head without intravenous contrast. A radiation dose optimization technique was used for this scan. IV Contrast dosage and agent: None. RADIATION DOSAGE (If Supplied By Facility): CTDIvol = ( 44.99 ) mGy, DLP = ( 745.49 ) mGycm COMPARISON: No prior examinations are available for comparison. FINDINGS: BRAIN PARENCHYMA: No intra- or extra-axial hemorrhage. No evidence of acute infarct. No intracranial mass or mass effect. There is preservation of the odonnell/white matter interface. Posterior fossa structures are unremarkable. Atherosclerotic calcifications of the cavernous internal carotid arteries. CSF SPACES: Appropriate for age. No hydrocephalus. Basal cisterns are patent. CALVARIUM, SKULL BASE, PARANASAL SINUSES AND MASTOID AIR CELLS: Clear. No discrete lytic or blastic abnormalities. ORBITS: Both globes, extraocular muscles, optic nerves and retrobulbar fat appear unremarkable. ASPECTS Score for Acute Strokes: 10 CT/Brain/Head without Contrast IMPRESSION: 1. No acute intracranial process. 2. Intracranial atherosclerotic calcifications of the internal carotid arteries.. Electronically Signed: Charles Bolivar MD at 14:11 EDT ,
[2022-11-07 12:47] LABS: Bedside Glucose 101 mg/dL (74-106)
--- NOTE | 2022-11-07 16:47 | PCM.DC.SUM ---
Providers Date of Admission: 11/05/22 Date of Discharge: 11/07/22 Primary Care Physician: Dr. Daisha Ramirez DO Reason For Visit: GI BLEED, ACUTE BLOOD LOSS ANEMIA Diagnosis Discharge Diagnosis (1) Gastrointestinal bleeding: Status: Acute Code(s): K92.2 - Gastrointestinal hemorrhage, unspecified Qualifiers: GI bleed type/associated pathology: unspecified gastrointestinal hemorrhage type Qualified Code(s): K92.2 - Gastrointestinal hemorrhage, unspecified Plan The patient is an 82 y/o F Who came to ED for lower extremity pain and cramping for past 3 days progressively getting worse. She also felt lightheaded while doing laundry. Patient also complaining of aching pain over right axilla and scapula radiating to the neck as fever or chills. #1. Acute on Chronic GI Bleed complicating into acute blood loss anemia on chronic normocytic anemia/iron deficiency anemia most likely from small bowel/occult GI bleed: Patient is admitted on [facility] floor in interim while pending transfer to [facility] as advised by Dr. Montague. Bleeding site was further down the small bowel that Dr. Montague could reach. Patient had 1 unit of PRBC transfusion done. Last hemoglobin 7.6. 250 mg IV iron ordered. Stool for occult blood positive. 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 Villafuerte in July 2021. Capsule endoscopy in August 11, 2021 found multiple bleeding lesions starting at 20 minutes. 11/07: Hemoglobin 7.7. Iron infusion 250 mg IV ordered. With patient getting an infusion she is seeing dots in both eyes. IV iron infusion started. She has history of bilateral carotid endarterectomy for history of TIA and bilateral carotid stenosis. CT head without contrast ordered. History is not suggestive of stroke. CT head without contrast was done. No acute intracranial process/abnormality. Intracranial atherosclerosis calcification of cavernous segment of ICA. Patient guarded the bed including clinic and being discharged clinically. #2. CAD: Status post CABG: All antiplatelet agents are on hold. Patient on metoprolol and ezetimibe. Not on SOCORRO inhibitor or ARB, not on statin therapy; allergy to statins. #3. Hypertension: Continue home regimen including Lasix with hold parameters #4. Hyperlipidemia: continue ezetimibe. #5. Bilateral carotid stenosis: Status post bilateral CEA as mentioned above. On antihypertensive medications #6. History of diabetes mellitus type II: Not on medication, last hemoglobin A1c noted 5.1% 11/10/2021. #7. Valvular heart disease: Status post AVR x 2, bioprosthetic valve, last noted echo 01/01/2021 with normal LV systolic function, EF 55 to 60% with mild concentric LVH, moderate pulmonary hypertension with PASP 55 mmHg, severe MILES 0.77 cm?, mild AI, bioprosthetic AV present. She had first AVR in 2013 along with CABG and second TAVR in November 2021 #8. History TIA: Holding antiplatelet therapy, continue hypertensive regimen, continue ezetimibe regimen. #9. PAF: Patient not on anticoagulant treatment. Already on metoprolol. #10. Former tobacco use: Encourage continued tobacco cessation. #11. GERD: Maintained on IV PPI as noted. #12. [place]: CPAP q HS if amenable. #13. DVT prophylaxis: SCDs, holding chemoprophylaxis given acute presentation number 1. 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 CODE status: Patient MICHELLE is her niece Yvonne now and LW is in place. Prior it has been her son Don but was changed. Discussed CODE status at length including difference between FULL code, DNR-CCA and DNR-CC status. The patient is transferred to [facility] in stable hemodynamically condition for further management Microbiology Past 72 Hours 11/05/22 16:10 Urine, Clean Catch Urine Culture - Final Mixed Gram Positive Organisms 11/04/22 20:49 Stool Stool Occult Blood (ORLY) - Final Occult Blood Positive Laboratory Results 11/07/22 05:22: WBC 9.7, RBC 2.95 L, Hgb 7.7 L, Hct 26.0 L, MCV 88.1, MCH 26.1 L, MCHC 29.6 L, RDW Std Deviation 56.7 H, RDW Coeff of Velasquez 17.5 H, Plt Count 270, MPV 10.0, Immature Gran % (Auto) 0.300, Neut % (Auto) 75.7 H, Lymph % (Auto) 9.3 L, Dickens % (Auto) 9.4, Eos % (Auto) 4.7, Baso % (Auto) 0.6, Absolute Neuts (auto) 7.3, Absolute Lymphs (auto) 0.90, Nucleated RBC % 0.2, Sodium 143, Potassium 4.4, Chloride 113 H, Carbon Dioxide 26.0, Anion Gap 4 L, BUN 8, Creatinine 1.07 H, Estim Creat Clear Calc 32.06, Est GFR (MDRD) Af Amer 63, Est GFR (MDRD) Non-Af 52 L, BUN/Creatinine Ratio 7.5 L, Glucose 88, Calcium 8.2 L Medications at Discharge Home Medications ezetimibe 10 mg tablet 10 mg PO QHS cholesterol 09/01/13 pantoprazole 40 mg tablet,delayed release 40 mg PO DAILY gerd 09/01/13 nitroglycerin 0.4 mg sublingual tablet 0.4 mg sublingual Q5M PRN Chest Pain #25 tabs 10/05/18 niacin (inositol niacinate) 500 mg capsule 1,000 mg PO BID supplement 04/12/19 furosemide 20 mg tablet (Lasix) 20 mg PO DAILY PRN FLUID 12/15/20 clopidogrel 75 mg tablet 75 mg PO DAILY blood thinner 04/18/21 levocetirizine 5 mg tablet (Xyzal) 5 mg PO DAILY supplement 07/15/21 cholecalciferol (vitamin D3) 125 mcg (5,000 unit) tablet (Vitamin D3) 125 mcg PO DAILY supplement 09/26/21 ascorbic acid (vitamin C) 1,000 mg tablet 1 g PO DAILY SUPPLEMENT 12/29/21 aspirin 81 mg tablet,delayed release 81 mg PO DAILY HEALTH MAINTENANCE 12/29/21 cyanocobalamin (vitamin B-12) 1,000 mcg tablet 1,000 mcg PO DAILY SUPPLEMENT 12/29/21 ferrous sulfate 325 mg (65 mg iron) tablet (FeroSul) 325 mg PO BIDCM SUPPLEMENT 12/29/21 tramadol 50 mg tablet 50 mg PO Q12H PRN pain #30 tabs 05/24/22 metoprolol tartrate 100 mg tablet 50 mg PO BID 11/04/22 Physical Exam Narrative Please see this note of the same date. Weight / BMI Weight Weight: 150 lb 5.684 oz Body Mass Index (BMI) 27.6 ABG / Lab / Microbiology Data 11/07/22 05:22 11/07/22 05:22 Laboratory: Laboratory Results - last 24 hr 11/07/22 05:22: WBC 9.7, RBC 2.95 L, Hgb 7.7 L, Hct 26.0 L, MCV 88.1, MCH 26.1 L, MCHC 29.6 L, RDW Std Deviation 56.7 H, RDW Coeff of Velasquez 17.5 H, Plt Count 270, MPV 10.0, Immature Gran % (Auto) 0.300, Neut % (Auto) 75.7 H, Lymph % (Auto) 9.3 L, Dickens % (Auto) 9.4, Eos % (Auto) 4.7, Baso % (Auto) 0.6, Absolute Neuts (auto) 7.3, Absolute Lymphs (auto) 0.90, Nucleated RBC % 0.2, Sodium 143, Potassium 4.4, Chloride 113 H, Carbon Dioxide 26.0, Anion Gap 4 L, BUN 8, Creatinine 1.07 H, Estim Creat Clear Calc 32.06, Est GFR (MDRD) Af Amer 63, Est GFR (MDRD) Non-Af 52 L, BUN/Creatinine Ratio 7.5 L, Glucose 88, Calcium 8.2 L 11/07/22 12:09: POC Glucose 101 Microbiology: Microbiology 11/05/22 16:10 Urine, Clean Catch Urine Culture - Final Mixed Gram Positive Organisms 11/04/22 20:49 Stool Stool Occult Blood (ORLY) - Final Occult Blood Positive Radiography Diagnostic Testing: Radiology Impression Brain CT 11/07/22 12:11 IMPRESSION: 1. No acute intracranial process. 2. Intracranial atherosclerotic calcifications of the internal carotid arteries.. Electronically Signed: Charles Bolivar MD at 14:11 EDT , Meaningful Use Info Meaningful Use Diagnoses (Choose all that apply): None applicable Discharge Plan Admission Admit Date/Time: 11/05/22 02:37 Attending Provider: Adrienne Bowden Primary Care Provider: Daisha Ramirez Consulting Providers: Ria Leong; Patrice Costa Discharge Orders/Prescriptions Prescriptions: No Action nitroglycerin 0.4 mg tablet, sublingual 0.4 mg SUBLINGUAL Q5M PRN (Reason: Chest Pain) Qty: 25 1RF levocetirizine [Xyzal] 5 mg tablet 5 mg PO DAILY tramadol 50 mg tablet 50 mg PO Q12H PRN (Reason: pain) Qty: 30 0RF pantoprazole 40 MG tablet 40 mg PO DAILY Patient Comments: stomach acid ezetimibe 10 MG tablet 10 mg PO QHS Patient Comments: cholesterol niacin (inositol niacinate) 500 MG capsule 1,000 mg PO BID furosemide [Lasix] 20 mg Tablet 20 mg PO DAILY PRN (Reason: FLUID) clopidogrel 75 mg tablet 75 mg PO DAILY Hold Instructions: Hold until appointment with Dr. Montague. cholecalciferol (vitamin D3) [Vitamin D3] 125 mcg (5,000 unit) Tablet 125 mcg PO DAILY ascorbic acid (vitamin C) 1,000 mg Tablet 1 g PO DAILY cyanocobalamin (vitamin B-12) 1,000 mcg Tablet 1,000 mcg PO DAILY aspirin 81 mg Tablet,Delayed Release (Dr/Ec) 81 mg PO DAILY ferrous sulfate [FeroSul] 325 mg (65 mg iron) tablet 325 mg PO BIDCM metoprolol tartrate 100 mg tablet 50 mg PO BID Patient Comments: TAKE 1 TABLET BY MOUTH TWICE A DAY Referrals / Follow Up: Daisha Ramirez DO [Primary Care Provider] - Disposition Disposition (needs filled in before D/C Order can be placed): Acute Care Hospital Charges/Coding Addendum Addendum: Please cancel the billing charge of the progress note of the same date. Visit Charges Inpatient E&M: 79076 Disch Hosp >30min
[2022-11-07 16:56] VITALS: BP 122/50; PULSE 72; RESP 18; TEMP 37.9; O2SAT 95
[2022-11-07 17:00] VITALS: O2SAT 100
[2022-11-07] MEDS: Acetaminophen 325 MG Tablet 650 MG PO (17:08)
== END 2022-11-07 19:50 | disposition short-term general hospital (02) | DRG 812 ==
LOC: ED 19:24 → MS3 11-05 02:49
PROVIDERS: Emergency Medicine; Internal Medicine; Admitting Provider Family Medicine; Emergency Provider Emergency Medicine; PCP Internal Medicine; Visit Provider Internal Medicine
DX: D62 Acute posthemorrhagic anemia (principal); E11.9 Type 2 diabetes mellitus without complications; I67.2 Cerebral atherosclerosis; I48.0 Paroxysmal atrial fibrillation; E78.00 Pure hypercholesterolemia, unspecified; G47.33 Obstructive sleep apnea (adult) (pediatric); I35.1 Nonrheumatic aortic (valve) insufficiency; I10 Essential (primary) hypertension; I65.23 Occlusion and stenosis of bilateral carotid arteries; K21.9 Gastro-esophageal reflux disease without esophagitis; I25.10 Atherosclerotic heart disease of native coronary artery without angina pectoris; E78.5 Hyperlipidemia, unspecified; D50.9 Iron deficiency anemia, unspecified; Z79.82 Long term (current) use of aspirin; Z79.02 Long term (current) use of antithrombotics/antiplatelets; Z87.891 Personal history of nicotine dependence; Z66 Do not resuscitate; Z95.3 Presence of xenogenic heart valve; Z51.5 Encounter for palliative care; Z95.1 Presence of aortocoronary bypass graft; Z86.73 Personal history of transient ischemic attack (TIA), and cerebral infarction without residual deficits
CPT/HCPCS: 36415; 70450; 71046; 80048; 80053; 81001; 82274; 82962; 84484; 85014; 85018; 85025; 86850; 86900; 86901; 86902; 86920; 86921; 86922; 87086; 87088; 93005; 94668; 99285; J7030; J7040; J7050; J7120; P9016; A4216; J2916

== ENCOUNTER 2022-11-28 16:54 | Emergency (ER) | payer MEDICARE, SELFPAY ==
[2022-11-28 16:56] VITALS: BP 137/55; PULSE 74; RESP 14; TEMP 36.7; O2SAT 99; BMI 25.1
--- NOTE | 2022-11-28 17:12 | EKG12_ITS ---
Test Reason : GEN ILLNESS Blood Pressure : / mmHG Vent. Rate : 075 BPM Atrial Rate : 075 BPM P-R Int : 200 ms QRS Dur : 154 ms QT Int : 436 ms P-R-T Axes : 058 -35 125 degrees QTc Int : 486 ms Normal sinus rhythm Left axis deviation Left bundle branch block Abnormal ECG Confirmed by FAYE DELGADILLO, KAREN ([id number]), assignment editor CHRISTIN BARTHOLOMEW ([id number]) on 11/29/2022 1:30:46 PM Referred By: Confirmed By:KAREN MCKINNEY MD
--- NOTE | 2022-11-28 17:13 | EX.ED.DYSGE1 ---
HPI <SHELLEY Garcia - Last Filed: 11/28/22 18:44> History of Present Illness Chief Complaint: Mental Status Change Narrative Narrative: 82-year-old female with PMH of HTN, HLD, DM2, TIA, CABG, valve replacement presents via EMS for reported confusion per the triage note. However, patient tells me that she is here because she has had an ulcer on her tongue for a long time and it started bleeding over the last 4 days. Was bleeding quite heavily yesterday and filled up a small cup. She is concerned her blood counts could be low. It bled again today when she was cleaning her dentures and her niece called EMS. She is on Plavix for history of TIA. She also states she sneezed earlier and had nosebleed from the right side. She denies coughing up blood or blood in her urine or stool. PFSH <SHELLEY Garcia - Last Filed: 11/28/22 18:44> [facility] Medical History (Updated 11/28/22 @ 18:04 by SHELLEY Garcia) Anemia Atherosclerotic heart disease of [place] coronary artery without angina pectoris Bilateral carotid artery stenosis Biliary colic CAD (coronary artery disease) Jayson's syndrome Essential hypertension Former smoker Gastrointestinal bleeding Gastrointestinal bleeding, upper GERD (gastroesophageal reflux disease) History of left heart catheterization (LHC) (~07/14/20) Hypertension Iron deficiency anemia due to chronic blood loss Nonrheumatic aortic (valve) stenosis [place] (obstructive sleep apnea) Osteoarthritis Paroxysmal atrial fibrillation Psoriasis Pure hypercholesterolemia Sleep disorder TIA (transient ischemic attack) Tobacco abuse Type 2 diabetes mellitus Home Medications ezetimibe 10 mg tablet 10 mg PO QHS cholesterol 09/01/13 [History Last Taken 12/28/21] pantoprazole 40 mg tablet,delayed release 40 mg PO DAILY gerd 09/01/13 [History Last Taken 12/29/21] nitroglycerin 0.4 mg sublingual tablet 0.4 mg sublingual Q5M PRN Chest Pain #25 tabs 10/05/18 [Rx Last Taken 04/12/19] niacin (inositol niacinate) 500 mg capsule 1,000 mg PO BID supplement 04/12/19 [History Last Taken 12/29/21] furosemide 20 mg tablet (Lasix) 20 mg PO DAILY PRN FLUID 12/15/20 [History Last Taken 08/27/21] clopidogrel 75 mg tablet 75 mg PO DAILY blood thinner 04/18/21 [History Last Taken 12/29/21] levocetirizine 5 mg tablet (Xyzal) 5 mg PO DAILY supplement 07/15/21 [History Last Taken 12/28/21] cholecalciferol (vitamin D3) 125 mcg (5,000 unit) tablet (Vitamin D3) 125 mcg PO DAILY supplement 09/26/21 [History Last Taken 12/29/21] ascorbic acid (vitamin C) 1,000 mg tablet 1 g PO DAILY SUPPLEMENT 12/29/21 [History Last Taken 12/29/21] aspirin 81 mg tablet,delayed release 81 mg PO DAILY HEALTH MAINTENANCE 12/29/21 [History Last Taken 12/28/21] cyanocobalamin (vitamin B-12) 1,000 mcg tablet 1,000 mcg PO DAILY SUPPLEMENT 12/29/21 [History Last Taken 12/29/21] ferrous sulfate 325 mg (65 mg iron) tablet (FeroSul) 325 mg PO BIDCM SUPPLEMENT 12/29/21 [History Last Taken Unknown] tramadol 50 mg tablet 50 mg PO Q12H PRN pain #30 tabs 05/24/22 [Rx Last Taken Unknown] metoprolol tartrate 100 mg tablet 50 mg PO BID 11/04/22 [History Last Taken Unknown] Allergy/AdvReac Type Severity Reaction Status Date / Time Sulfa (Sulfonamide Allergy Severe HEART Verified 11/04/22 18:17 Antibiotics) RACING Latex, Natural Rubber Allergy Rash, Verified 11/04/22 18:17 psioriasis amoxicillin [From Augmentin] AdvReac Nausea Verified 11/04/22 18:17 atorvastatin [From Lipitor] AdvReac Other Verified 11/04/22 18:17 clavulanic acid AdvReac Nausea Verified 11/04/22 18:17 [From Augmentin] Iodinated Contrast Media AdvReac Other Verified 11/04/22 18:17 [CONTRASTS] lisinopril AdvReac Other Verified 11/04/22 18:17 niacin AdvReac Other Verified 11/04/22 18:17 [From Niaspan Extended-Release] red dye AdvReac NEEDS Verified 11/04/22 18:17 FOLLOW-UP rosuvastatin [From Crestor] AdvReac Other Verified 11/04/22 18:17 turkey AdvReac Rash Verified 11/04/22 18:17 Family History Mother Heart disease Diabetes Father Heart disease Cancer Sister Cancer COPD (chronic obstructive pulmonary disease) Surgical History History of aortic valve replacement with bioprosthetic valve (~09/06/13) History of bilateral carotid endarterectomy History of coronary artery bypass surgery (~09/06/13) History of left mastectomy (~1998) History of right mastectomy (~1998) History of tubal ligation Social History household members: none housing: house Smoking Status: Former smoker how long ago did patient quit smokin second hand exposure: No alcohol intake: never substance use type: does not use caffeine: Yes Type: coffee Number of servings: 2 and tea what type of physical activity do you participate in: none franci/baptist: Congregational seatbelt use: always do you feel safe at home: Yes ROS <SHELLEY Garcia - Last Filed: 11/28/22 18:44> ROS ED ROS Narrative Constitutional: Negative for fever, chills, malaise. CVS: Negative for chest pain. Respiratory: Negative for shortness of breath, cough. GI: Negative for abdominal pain, nausea, vomiting, diarrhea, melena, hematochezia. : Negative for dysuria, frequency. Neuro: Negative for headache, motor/sensory dysfunction. EXAM <SHELLEY Garcia - Last Filed: 11/28/22 18:44> Physical Exam Narrative Exam Narrative: CONST: Patient sitting in no acute distress. EYES: Normal inspection. PERRLA, EOMI. ENT: Moist mucous membranes, small circular ulcer right tongue with no active bleeding. Nares clear with no epistaxis. NECK: Normal inspection. RESP: Diffuse crackles, speaking in full sentences in no distress. CVS: Regular rate and rhythm, audible click from prior valve replacement. ABD: Soft and nontender, no guarding or rebound, nondistended, no hepatosplenomegaly. SKIN: Color normal, no rash, warm, dry, intact. EXTREMITIES: Normal appearance, no pedal edema. NEURO: Oriented x4. PSYCH: Normal affect. Const Vital Signs: 11/28/22 16:56 11/28/22 18:14 Temperature 98.0 F Temperature Source Oral Pulse Rate 74 81 Respiratory Rate 14 18 Blood Pressure 137/55 H 144/67 H Blood Pressure Mean 82 92 Pulse Ox 99 96 Oxygen Delivery Method Room Air Room Air <Dr. Tj Jain MD - Last Filed: 11/28/22 18:09> Physical Exam Const Vital Signs: 11/28/22 16:56 11/28/22 18:14 Temperature 98.0 F Temperature Source Oral Pulse Rate 74 81 Respiratory Rate 14 18 Blood Pressure 137/55 H 144/67 H Blood Pressure Mean 82 92 Pulse Ox 99 96 Oxygen Delivery Method Room Air Room Air MDM <SHELLEY Garcia - Last Filed: 11/28/22 18:44> MDM MDM Narrative Medical decision making narrative: History gathered from: Patient and niece Initially only patient was present she states she is here because she has a tongue lesion that is been present for over a year and its been bleeding for the last 4 days. Is not bleeding currently. She is on Plavix for history of TIA. She appears well and nontoxic and has normal vital signs. There is a small circular tongue lesion with no active bleeding. Triage note had listed confusion as a possible reason she is here but she is alert and oriented x4 and has no focal neurological deficits. CBC shows normal white count of 6.0. Her hemoglobin of 8.4 is higher than previous and no transfusion is needed. BMP is unremarkable. Urinalysis negative. Her tongue lesion did start to rebleed here and I superficially injected 1% lidocaine with epinephrine with good hemostasis. I spoke with the patient's niece ambulate to get more history. She states she has been talking the patient over the last couple days on the phone and she had reported feeling weak. Today at home she told her blood pressure was 105 over 50s so the niece called the squad. She did not actually see the patient in person. Here her vitals have remained normal. Her work-up is negative. Niece is comfortable picking her up. I discussed the importance of follow-up with Dr. Meek for this tongue lesion as they need to rule out cancer. She expressed understanding and was discharged in stable condition. I have personally performed a face to face assessment of the patient and have reviewed the LEXUS Note. I performed a substantive portion of the visit including all aspects of the following. 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 She is on Plavix. No other blood thinners. Family also concerned she might have a change in mental status but displayed lady is completely awake and alert.] Exam is [well-appearing 82-year-old female. Vital signs stable afebrile. H EENT exam unremarkable other than she is an ulceration about the size of a dime on the right anterior aspect of her tongue. Initially my first talking to her it was not bleeding at all then it started bleeding and looks like its small arterial bleed to the bright red blood. She is upper and lower dentures in. Neck nontender. No lymphadenopathy. Lungs clear to auscultation. Heart regular rhythm no murmur. Abdomen soft nontender. Moving all 4 extremities.] Medical Decision Making [the bleeding of the tongue wound will be injected with lidocaine with epinephrine to see if we controlled the bleeding. She has follow-up appointment with her ENT. We did do screening labs for the change in mental status which were unremarkable.] Other additions or changes: [None] Lab Data Attestation: I reviewed the patient's lab results. Labs: Laboratory Results - last 24 hr 11/28/22 11/28/22 17:20 17:45 WBC 6.0 RBC 3.10 L Hgb 8.4 L Hct 27.6 L MCV 89.0 MCH 27.1 MCHC 30.4 L RDW Std Deviation 67.3 H RDW Coeff of Velasquez 20.6 H Plt Count 358 MPV 8.9 Immature Gran % (Auto) 0.300 Neut % (Auto) 63.9 Lymph % (Auto) 21.2 Custer % (Auto) 9.7 Eos % (Auto) 3.2 Baso % (Auto) 1.7 H Absolute Neuts (auto) 3.8 Absolute Lymphs (auto) 1.27 Nucleated RBC % 0 Differential Comment SCANNED Sodium 137 Potassium 4.0 Chloride 106 Carbon Dioxide 27.0 Anion Gap 4 L BUN 12 Creatinine 1.14 H Estim Creat Clear Calc 30.09 Est GFR (MDRD) Af Amer 59 L Est GFR (MDRD) Non-Af 49 L BUN/Creatinine Ratio 10.5 Glucose 93 Calcium 8.3 L Urine Color Straw Urine Clarity Clear Urine pH 6.5 Ur Specific Benedict 1.010 Urine Protein Negative Urine Glucose (UA) Normal Urine Ketones Negative Urine Occult Blood Negative Urine Nitrite Negative Urine Bilirubin Negative Urine Urobilinogen Normal Ur Leukocyte Esterase Negative Urine RBC 0-5 SEEN Urine WBC 0-5 SEEN Ur Squamous Epith Cells 0-5 SEEN Urine Bacteria 0 SEEN Urine Mucus 0 SEEN EKG Initial EKG: Attestation: I personally reviewed and interpreted this EKG as follows: Comments: ED attending interpretation is normal sinus rhythm at 75 bpm, left axis deviation, left bundle branch block No STEMI criteria Unchanged from EKG on November 04, 2022 Prior EKG tracings: available for review Prior: Unchanged <Dr. Tj Jain MD - Last Filed: 11/28/22 18:09> [facility] Narrative Medical decision making narrative: History gathered from: Patient and niece Initially only patient was present she states she is here because she has a tongue lesion that is been present for over a year and its been bleeding for the last 4 days. Is not bleeding currently. She is on Plavix for history of TIA. She appears well and nontoxic and has normal vital signs. There is a small circular tongue lesion with no active bleeding. Triage note had listed confusion as a possible reason she is here but she is alert and oriented x4 and has no focal neurological deficits. CBC shows normal white count of 6.0. Her hemoglobin of 8.4 is higher than previous and no transfusion is needed. BMP is unremarkable. Urinalysis negative. I have personally performed a face to face assessment of the patient and have reviewed the LEXUS Note. I performed a substantive portion of the visit including all aspects of the following. 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 She is on Plavix. No other blood thinners. Family also concerned she might have a change in mental status but displayed lady is completely awake and alert.] Exam is [well-appearing 82-year-old female. Vital signs stable afebrile. H EENT exam unremarkable other than she is an ulceration about the size of a dime on the right anterior aspect of her tongue. Initially my first talking to her it was not bleeding at all then it started bleeding and looks like its small arterial bleed to the bright red blood. She is upper and lower dentures in. Neck nontender. No lymphadenopathy. Lungs clear to auscultation. Heart regular rhythm no murmur. Abdomen soft nontender. Moving all 4 extremities.] Medical Decision Making [the bleeding of the tongue wound will be injected with lidocaine with epinephrine to see if we controlled the bleeding. She has follow-up appointment with her ENT. We did do screening labs for the change in mental status which were unremarkable.] Other additions or changes: [None] History & Record Review Discussion w/independent historian: Patient and Family Lab Data Lab results narrative: CBC shows a white count of 6. H&H 8.4 and 27.6 which is her baseline anemia. Platelets 358. Electrolytes show a gap of 4. BUN and creatinine of 12 and 1.1. Glucose 93. UA is negative. Labs: Laboratory Results - last 24 hr 11/28/22 11/28/22 17:20 17:45 WBC 6.0 RBC 3.10 L Hgb 8.4 L Hct 27.6 L MCV 89.0 MCH 27.1 MCHC 30.4 L RDW Std Deviation 67.3 H RDW Coeff of Velasquez 20.6 H Plt Count 358 MPV 8.9 Immature Gran % (Auto) 0.300 Neut % (Auto) 63.9 Lymph % (Auto) 21.2 [place] % (Auto) 9.7 Eos % (Auto) 3.2 Baso % (Auto) 1.7 H Absolute Neuts (auto) 3.8 Absolute Lymphs (auto) 1.27 Nucleated RBC % 0 Differential Comment SCANNED Sodium 137 Potassium 4.0 Chloride 106 Carbon Dioxide 27.0 Anion Gap 4 L BUN 12 Creatinine 1.14 H Estim Creat Clear Calc 30.09 Est GFR (MDRD) Af Amer 59 L Est GFR (MDRD) Non-Af 49 L BUN/Creatinine Ratio 10.5 Glucose 93 Calcium 8.3 L Urine Color Straw Urine Clarity Clear Urine pH 6.5 Ur Specific Benedict 1.010 Urine Protein Negative Urine Glucose (UA) Normal Urine Ketones Negative Urine Occult Blood Negative Urine Nitrite Negative Urine Bilirubin Negative Urine Urobilinogen Normal Ur Leukocyte Esterase Negative Urine RBC 0-5 SEEN Urine WBC 0-5 SEEN Ur Squamous Epith Cells 0-5 SEEN Urine Bacteria 0 SEEN Urine Mucus 0 SEEN Discharge Plan Triage Chief Complaint: Mental Status Change ED Midlevel Provider: Bess Olivera ED Provider: Tj Jain Dx/Rx/DC Orders Clinical Impression: Tongue lesion, Chronic anemia Instructions: Anemia Prescriptions: No Action nitroglycerin 0.4 mg tablet, sublingual 0.4 mg SUBLINGUAL Q5M PRN (Reason: Chest Pain) Qty: 25 1RF levocetirizine [Xyzal] 5 mg tablet 5 mg PO DAILY tramadol 50 mg tablet 50 mg PO Q12H PRN (Reason: pain) Qty: 30 0RF pantoprazole 40 MG tablet 40 mg PO DAILY Patient Comments: stomach acid ezetimibe 10 MG tablet 10 mg PO QHS Patient Comments: cholesterol niacin (inositol niacinate) 500 MG capsule 1,000 mg PO BID furosemide [Lasix] 20 mg Tablet 20 mg PO DAILY PRN (Reason: FLUID) clopidogrel 75 mg tablet 75 mg PO DAILY Hold Instructions: Hold until appointment with Dr. Montague. cholecalciferol (vitamin D3) [Vitamin D3] 125 mcg (5,000 unit) Tablet 125 mcg PO DAILY ascorbic acid (vitamin C) 1,000 mg Tablet 1 g PO DAILY cyanocobalamin (vitamin B-12) 1,000 mcg Tablet 1,000 mcg PO DAILY aspirin 81 mg Tablet,Delayed Release (Dr/Ec) 81 mg PO DAILY ferrous sulfate [FeroSul] 325 mg (65 mg iron) tablet 325 mg PO BIDCM metoprolol tartrate 100 mg tablet 50 mg PO BID Patient Comments: TAKE 1 TABLET BY MOUTH TWICE A DAY Primary Care Provider: Daisha Ramirez Referrals: Kalyan Meek MD [Med Staff - Courtesy Staff] - Daisha Ramirez DO [Primary Care Provider] - Activity Restrictions/Additional Instructions: Please call Dr. Meek's office to be seen for your tongue lesion. Today your blood counts were above 8 and you do not need a transfusion. Disposition Disposition: Home, Self Care
[2022-11-28 17:31] LABS: Absolute Lymphocyte Count 1.27 X10^3/uL (0.83-4.51); Absolute Neutrophil Count 3.8 X10^3/uL (2.0-7.7); Basophil% 1.7 % (0-1); Eosinophil# 0.19 X10^3/uL; Eosinophils% 3.2 % (0-5); Hematocrit 27.6 % (37-47); Hemoglobin 8.4 g/dL (12.0-15.0); Lymphocyte # 1.27 X10^3/ul (0.83-4.51); Lymphocyte % 21.2 % (19-41); Mean Corp Hgb Conc 30.4 g/dL (32-36); Mean Corpuscular Hgb 27.1 pg (27.0-32.0); Mean Platelet Vol. 8.9 fl (6.2-12.0); Monocyte# 0.58 X10^3/uL; Monocyte% 9.7 % (0-10); NRBC Flagged by Analyzer 0 % (0-5); Neutrophil # 3.83 X10^3/uL (2.7-7.7); Neutrophil % 63.9 % (47-70); POSITIVE MORPHOLOGY YES; Platelet Count 358 K/mm3 (150-450); RBC Distribution Width CV 20.6 % (11.6-14.6); RBC Distribution Width SD 67.3 fl (35.1-43.9)
[2022-11-28 17:33] LABS: Differential Indicated SCAN CRITERIA MET
[2022-11-28 17:45] LABS: Anion Gap 4 (5-15); BUN 12 mg/dL (7-18); BUN/Creat Ratio 10.5 RATIO (10-20); Calcium,Total 8.3 mg/dL (8.5-10.1); Chloride 106 mmol/L (98-107); Creatinine, Serum 1.14 mg/dL (0.55-1.02); EST Glomerular Filtration Rate 49 mL/min (>60); Est Glom Filt Rate - Afr Amer 59 mL/min (>60); Estimated Creatinine Clearance 30.09 ml/min; Glucose 93 mg/dL (74-106); Sodium Level 137 mmol/L (136-145)
[2022-11-28 17:54] LABS: Bacteria 0 SEEN /hpf (None Seen); Color, Urine Straw (Yellow); Glucose, Dipstick Normal (Normal); Ketone-Dipstick Negative (Negative); Leukocyte Esterase-Dipstick Negative /ul (Negative); Mucous, Urine 0 SEEN /hpf (<or=2+); Nitrite-Dipstick Negative (Negative); Occult Blood-Urine Negative /ul (Negative); Protein-Dipstick Negative (Negative); Urine Bilirubin Dipstick Negative (Negative); Urine Clarity Clear (Clear); Urine Urobilinogen Normal (Normal); Urine pH 6.5 (5.0 - 8.0)
[2022-11-28 18:01] LABS: Red Blood Cells-Urine 0-5 SEEN /hpf (0-5); Squamous Epithelial Cells - UA 0-5 SEEN /hpf (5-10); White Blood Cells 0-5 SEEN /hpf (0-5)
[2022-11-28 18:05] LABS: Differential Comment SCANNED
[2022-11-28 18:14] VITALS: BP 144/67; PULSE 81; RESP 18; O2SAT 96
== END 2022-11-28 18:48 | disposition home or self-care (01) ==
PROVIDERS: Physician Assistant; Emergency Provider Emergency Medicine; PCP Internal Medicine; Visit Provider Emergency Medicine
DX: R41.82 Altered mental status, unspecified (principal); E11.9 Type 2 diabetes mellitus without complications; I10 Essential (primary) hypertension; I25.10 Atherosclerotic heart disease of native coronary artery without angina pectoris; Z87.891 Personal history of nicotine dependence; D64.9 Anemia, unspecified; E78.00 Pure hypercholesterolemia, unspecified; Z95.1 Presence of aortocoronary bypass graft; Z86.73 Personal history of transient ischemic attack (TIA), and cerebral infarction without residual deficits; K14.8 Other diseases of tongue
CPT/HCPCS: 80048; 81001; 85025; 93005; 99285; A4216

== ENCOUNTER 2022-12-13 07:14 | Day surgery (SDC) | payer MEDICARE, SELFPAY ==
[2022-12-08 12:32] LABS: Hematocrit 30.9 % (37-47); Hemoglobin 8.9 g/dL (12.0-15.0); Mean Corp Hgb Conc 28.8 g/dL (32-36); Mean Corpuscular Hgb 26.4 pg (27.0-32.0); Mean Corpuscular Volume 91.7 fL (81-99); Mean Platelet Vol. 10.1 fl (6.2-12.0); Platelet Count 220 K/mm3 (150-450); RBC Distribution Width CV 19.2 % (11.6-14.6); RBC Distribution Width SD 64.9 fl (35.1-43.9); Red Blood Count 3.37 M/mm3 (4.2-5.4); White Blood Count 5.3 K/mm3 (4.4-11.0)
[2022-12-08 12:57] LABS: Anion Gap 5 (5-15); BUN 10 mg/dL (7-18); BUN/Creat Ratio 9.6 RATIO (10-20); Calcium,Total 8.6 mg/dL (8.5-10.1); Chloride 109 mmol/L (98-107); Creatinine, Serum 1.04 mg/dL (0.55-1.02); EST Glomerular Filtration Rate 54 mL/min (>60); Est Glom Filt Rate - Afr Amer 65 mL/min (>60); Glucose 93 mg/dL (74-106); Potassium 3.9 mmol/L (3.5-5.1); Sodium Level 142 mmol/L (136-145)
[2022-12-13] VITALS (7 sets, daily range): BP systolic 116–131; BP diastolic 45–60; PULSE 64–70; RESP 16; TEMP 36.3–36.9; O2SAT 87–97; BMI 24.7
--- NOTE | 2022-12-13 | IMM_PTH ---
PATIENT: SAMMY SOLOMON [place] [facility] [place][id number] AGE/SX: 82/F ROOM: RE12/13/[address]: Dr. Toro Meek MD : 1940 BED: DIS: 12/13/2022 SPEC #: [id number] RECD: 12/14/22 14:14 STATUS: JANIS REQ #: [id number] KEMAL: 12/13/22 00:[address]: Toro Meek DEPT: IMMUNOHISTOCHEMISTRY RECD BY: Rajwinder Jennings ENTERED: 12/14/22 14:15 SP TYPE: IMMUNO OTHR DR: Dr. aDisha Ramirez DO Tissues: Tongue, NOS Procedures: CD31 (initial) CD34 (add) FACTOR VIII (add) PHYSICIAN & INSTITUTION [place] [id number] SPECIMEN INFORMATION: Tissue Source: Tongue lesion Clinical Info: Benign neoplasm of tongue Specimen Number: [id number] CPT code: 23245, 48935 x2 METHODOLOGY: Deparaffinized sections of prefer/formalin-fixed tissue or PAP/DQ stained slides are incubated with monoclonal/polyclonal antibodies/oligonucleotide probes. Localization is made via biotin free immunoperoxidase method. Appropriate controls are performed and reacted as expected. Results on target cell population are indicated in the following table: RESULTS: ANTIBODY / CLONE RESULT CD31 (ROXANNE/70A) positive Factor VIII (R Ag) positive CD34 (QBEnd-10) positive These tests were developed and their performance characteristics determined by [facility]. They may not have been cleared or approved by the U.S. Food and Drug Administration. The FDA has determined that such clearance or approval is not necessary. The above immunohistochemical/dualISH markers are ordered and reviewed by the Pathologist. INTERPRETATION: Tongue lesion, biopsy: - Consistent with capillary hemangioma AM:yumiko 12/15/22
[2022-12-13] MEDS: Lactated Ringers 1,000 ML 15 ML IV (08:05)
--- NOTE | 2022-12-13 09:18 | PCM.DC.SUM ---
Providers Primary Care Physician: Dr. Daisha Ramirez DO Reason For Visit: Excision, Oral Lesion Medications at Discharge Home Medications ezetimibe 10 mg tablet 10 mg PO QHS cholesterol 09/01/13 pantoprazole 40 mg tablet,delayed release 40 mg PO DAILY gerd 09/01/13 nitroglycerin 0.4 mg sublingual tablet 0.4 mg sublingual Q5M PRN Chest Pain #25 tabs 10/05/18 niacin (inositol niacinate) 500 mg capsule 1,000 mg PO BID supplement 04/12/19 furosemide 20 mg tablet (Lasix) 20 mg PO DAILY PRN FLUID 12/15/20 clopidogrel 75 mg tablet 75 mg PO DAILY blood thinner 04/18/21 aspirin 81 mg tablet,delayed release 81 mg PO DAILY HEALTH MAINTENANCE 12/29/21 metoprolol tartrate 100 mg tablet 50 mg PO BID 11/04/22 acetaminophen 325 mg capsule 325 mg PO Q6H PRN pain 12/07/22 Weight / BMI Weight Weight: 61.5 kg Body Mass Index (BMI) 24.7 ABG / Lab / Microbiology Data 12/08/22 12:09 12/08/22 12:09 D/C Instructions Discharge Diet: Soft diet Additional Instructions: Take your last antibiotic today Please Follow Up With: Toro Meek MD When: 2 weeks Meaningful Use Info Meaningful Use Diagnoses (Choose all that apply): None applicable Discharge Plan Admission Attending Provider: Toro Meek Primary Care Provider: Daisha Ramirez Discharge Orders/Prescriptions Prescriptions: No Action nitroglycerin 0.4 mg tablet, sublingual 0.4 mg SUBLINGUAL Q5M PRN (Reason: Chest Pain) Qty: 25 1RF pantoprazole 40 MG tablet 40 mg PO DAILY Patient Comments: stomach acid ezetimibe 10 MG tablet 10 mg PO QHS Patient Comments: cholesterol niacin (inositol niacinate) 500 MG capsule 1,000 mg PO BID furosemide [Lasix] 20 mg Tablet 20 mg PO DAILY PRN (Reason: FLUID) clopidogrel 75 mg tablet 75 mg PO DAILY Hold Instructions: Hold until appointment with Dr. Montague. aspirin 81 mg Tablet,Delayed Release (Dr/Ec) 81 mg PO DAILY metoprolol tartrate 100 mg tablet 50 mg PO BID Patient Comments: TAKE 1 TABLET BY MOUTH TWICE A DAY acetaminophen 325 mg capsule 325 mg PO Q6H PRN (Reason: pain) Referrals / Follow Up: Daisha Ramirez DO [Primary Care Provider] - Disposition Disposition (needs filled in before D/C Order can be placed): Home, Self Care
--- NOTE | 2022-12-13 09:25 | TOBX_PTH ---
PATIENT: SAMMY SOLOMON [place] [facility] [id number] AGE/SX: 82/F ROOM: RE12/13/[address]: Dr. Toro Meek MD : 1940 BED: DIS: 12/13/2022 SPEC #: [id number] RECD: 12/13/22 12:59 STATUS: JANIS REAly #: [id number] KEMAL: 12/13/22 09:[address]: Toro Meek DEPT: SURGICAL PATHOLOGY RECD BY: Yanna Denise ENTERED: 12/13/22 13:27 SP TYPE: TONGUE BX OTHR DR: Dr. Daisha Ramirez, Tissues: Tongue, NOS Procedures: Special Stain Group I Surgery Specimen Level IV GMS Stain (control) HEADER OPERATION: Excision oral lesion PRE-OP DIAGNOSIS: Benign neoplasm of tongue TISSUE SUBMITTED: Tongue lesion MICROSCOPIC DIAGNOSIS Tongue lesion, biopsy: Consistent with capillary hemangioma. Focal acute inflammation. Negative for fungal organisms. See comment. AM:bruno 12/14/2022 COMMENT Immunohistochemistry ([id number]) supports the above diagnosis. GMS stain with matched control was used in the evaluation of this case. MICROSCOPIC DESCRIPTION Slides are reviewed. GROSS DESCRIPTION Received in fixative is one container labeled with the patient's name and designated tongue lesion. The specimen consists of an irregular fragment of light bah mucosa measuring 0.6 x 0.5 x 0.2 cm. The specimen is totally submitted in one cassette. / AM:bruno 12/13/2022 TC:5 CPT: 25464, 04706
[2022-12-13] MEDS: Clindamycin 900 MG/50 ML BAG 75 MG IV (09:41)
[2022-12-13] MEDS: Lidocaine 1% /Epi 1:100 (20ml) 20 ML Vial (09:46)
--- NOTE | 2022-12-13 09:54 | OP.PCM_ITS ---
Report of Operation Date of Procedure: 12/13/22 Pre-Operative Diagnosis: tongue lesion Post-Operative Diagnosis: same Surgery/Procedure Performed:: excision tongue lesion (anterior 2/3rds) with closure Surgeon: Toro Meek Type of Anesthesia: Local MAC Anesthesiologist: Alexandro Schmitt Estimated Blood Loss (mL): minimal Description of Procedure: The patient was taken to the operating room on 12/13/2022. She was placed in the supine position on the operating table. She was given local MAC anesthesia. The head of bed was elevated 30 degrees. Patient was draped sterilely. A side- biting mouthgag was used to keep the mouth open. The tongue was held anteriorly with gauze. 1% lidocaine with epinephrine was injected into the mucosa surro unding the lesion. After sufficient vasoconstriction and anesthesia, the lesion was excised in an ellipse with a 15 blade. This was sent for permanent section. Hemostasis was achieved with bipolar cautery. I then closed the incision with interrupted 4-0 chromic. The patient was then awoken and brought to the recovery room in stable condition. Blood loss minimal, replacement none. Sponge, needle, and instrument count were correct at the end the procedure.
== END 2022-12-13 11:14 | disposition home or self-care (01) ==
LOC: SDC 07:15 → AC 07:15
PROVIDERS: PCP Internal Medicine; Referring Provider Otolaryngology; Visit Provider Otolaryngology
PROC: (CPT 41112; principal; 2022-12-13 09:15)
DX: D10.1 Benign neoplasm of tongue (principal); Z87.891 Personal history of nicotine dependence; Z85.3 Personal history of malignant neoplasm of breast
CPT/HCPCS: 41112; 00170; 36415; 80048; 85027; 88305; 88312; 88341; 88342; J7120; J2405

== ENCOUNTER → 2023-04-28 | Outpatient (CLI) | payer MEDICARE, SELFPAY ==
--- NOTE | 2023-04-28 15:38 | RAD_ITS ---
STUDY: X-RAY - UNILATERAL RIBS ( RIGHT ) REASON FOR EXAM: Female, 82 years old. RIB PAIN TECHNIQUE: 4 view(s) of the ribs. COMPARISON: Chest x-ray 11/04/2022. FINDINGS: There is severe demineralization of the osseous structures which diminishes the diagnostic sensitivity of this examination, however there is no visualized rib fracture. Diffuse interstitial prominence, progressed in suggestive of interstitial lung disease, interstitial pneumonitis or interstitial edema. Midline sternotomy wires with evidence of cardiac surgery. Right-sided axillary surgical clips. RAD/Ribs Unil 2V No CXR IMPRESSION: Diffuse osteopenia with no distinct fracture seen. Electronically Signed: Demetria Knight MD at 17:11 EST ,
--- NOTE | 2023-04-28 15:38 | RAD_ITS ---
STUDY: X-RAY - RIGHT SHOULDER REASON FOR EXAM: Female, 82 years old. SHOULDER PAIN TECHNIQUE: 4 view(s) of the shoulder. COMPARISON: None. FINDINGS: Normal glenohumeral articulation. Normal acromioclavicular joint. Normal acromion. Normal humeral head and visualized proximal humerus. The soft tissue structures are unremarkable. There is no demonstrated fracture. Normal visualized pulmonary apex. RAD/Shoulder min 2 Views IMPRESSION: Normal x-ray examination of the shoulder. Electronically Signed: Kenny Scott MD at 19:54 EST ,
[2023-04-28 18:03] LABS: Erythrocyte Sedimentation Rate 12 mm/hr (0-30)
[2023-04-28 18:38] LABS: CRP 9.97 mg/L (0.0-3.0)
== END | disposition home or self-care (01) ==
LOC: MTLAB 15:36
PROVIDERS: PCP Internal Medicine; Referring Provider Internal Medicine; Visit Provider Internal Medicine
DX: Z85.3 Personal history of malignant neoplasm of breast (principal); R07.81 Pleurodynia; M25.511 Pain in right shoulder
CPT/HCPCS: 36415; 71100; 73030; 85652; 86140

== ENCOUNTER → 2023-06-06 | Outpatient (CLI) | payer MEDICARE, SELFPAY ==
[2023-06-06 11:30] LABS: Bacteria 0 SEEN /hpf (None Seen); Mucous, Urine 0 SEEN /hpf (<or=2+)
[2023-06-06 15:38] LABS: Absolute Lymphocyte Count 0.75 X10^3/uL (0.83-4.51); Absolute Neutrophil Count 5.5 X10^3/uL (2.0-7.7); Basophil# 0.07 X10^3/uL; Basophil% 0.9 % (0-1); Eosinophil# 0.28 X10^3/uL; Eosinophils% 3.8 % (0-5); Hematocrit 26.5 % (37-47); Hemoglobin 6.9 g/dL (12.0-15.0); Lymphocyte # 0.75 X10^3/ul (0.83-4.51); Lymphocyte % 10.1 % (19-41); Mean Corpuscular Hgb 20.8 pg (27.0-32.0); Mean Corpuscular Volume 80.1 fL (81-99); Monocyte# 0.81 X10^3/uL; Monocyte% 10.9 % (0-10); NRBC Flagged by Analyzer 0 % (0-5); Neutrophil # 5.51 X10^3/uL (2.7-7.7); Neutrophil % 73.9 % (47-70); Platelet Count 233 K/mm3 (150-450); RBC Distribution Width CV 17.8 % (11.6-14.6); RBC Distribution Width SD 52.2 fl (35.1-43.9); Red Blood Count 3.31 M/mm3 (4.2-5.4); White Blood Count 7.5 K/mm3 (4.4-11.0)
[2023-06-06 15:39] LABS: Color, Urine Yellow (Yellow); Glucose, Dipstick Normal (Normal); Ketone-Dipstick 5 mg/dl (Negative); Leukocyte Esterase-Dipstick 25 /ul (Negative); Nitrite-Dipstick Negative (Negative); Occult Blood-Urine Negative /ul (Negative); Protein-Dipstick 30 mg/dl (Negative); Specific Gravity, Urine 1.025 (1.002-1.030); Urine Bilirubin Dipstick Negative (Negative); Urine Clarity Clear (Clear); Urine Urobilinogen 1 mg/dl (Normal)
[2023-06-06 15:52] LABS: Red Blood Cells-Urine 0-5 SEEN /hpf (0-5); Squamous Epithelial Cells - UA 0-5 SEEN /hpf (5-10); White Blood Cells 0-5 SEEN /hpf (0-5)
[2023-06-06 15:56] LABS: Microalbumin:Creatinine Ratio 107.5 mg/g CRE (<30 mg/g CRE)
[2023-06-06 16:19] LABS: AST(SGOT) 18 U/L (15-37); Alanine Aminotransfer ALT/SGPT 19 U/L (13-56); Albumin, Serum 3.5 g/dL (3.2-5.0); Alkaline Phosphatase 67 U/L (45-117); Anion Gap 9 (5-15); BUN 23 mg/dL (7-18); BUN/Creat Ratio 16.3 RATIO (10-20); Calcium,Total 8.6 mg/dL (8.5-10.1); Chloride 108 mmol/L (98-107); Cholesterol 104 mg/dL (200); Creatinine, Serum 1.41 mg/dL (0.55-1.02); EST Glomerular Filtration Rate 38 mL/min (>60); Est Glom Filt Rate - Afr Amer 46 mL/min (>60); Globulin 3.5 g/dL (2.2-4.2); Glucose 96 mg/dL (74-106); High Density Lipoprotein 40 mg/dL; Potassium 3.7 mmol/L (3.5-5.1); Sodium Level 144 mmol/L (136-145); Thyroid Stim Hormone (TSH) 4.57 uIU/mL (0.358-3.74); Triglycerides 64 mg/dL; Very Low Density Lipoprotein 13 mg/dL (5-40)
== END | disposition home or self-care (01) ==
PROVIDERS: PCP Internal Medicine; Referring Provider Internal Medicine; Visit Provider Internal Medicine
DX: E11.9 Type 2 diabetes mellitus without complications (principal); E78.00 Pure hypercholesterolemia, unspecified
CPT/HCPCS: 36415; 80053; 80061; 81001; 82043; 82570; 84443; 85025

== ENCOUNTER 2023-06-09 12:59 | Inpatient (IN) | payer MEDICARE, SELFPAY ==
[2023-06-09] VITALS (17 sets, daily range): BP systolic 119–153; BP diastolic 51–85; PULSE 71–86; RESP 16–22; TEMP 36.4–36.8; O2SAT 94–100; BMI 29.3; BMI 28.5
--- NOTE | 2023-06-09 13:25 | EDS_ITS ---
HPI <JACLYN Camacho - Last Filed: 06/09/23 15:24> History of Present Illness Chief Complaint: Abn Labs Narrative Narrative: Patient is a 82-year-old female with history of CABG hypertension type 2 diabetes history of anemia who takes Plavix presenting to the emergency department for generalized weakness feeling of fatigue, low blood count.Okay patient's hemoglobin was 6.9 patient's hemoglobin is 6.9 on the 12th of this month, it is now the 15th. Patient denies any other blood loss. Patient denies any blood in her stool. Patient that she does have pain to her right lower quadrant. Patient was told to come to the emergency department for blood tra nsfusion. She denies any other injury. She denies any fever or chills. Just tiredness. PFS <JACLYN Camacho - Last Filed: 06/09/23 15:24> [facility], [facility] Medical History (Updated 06/09/23 @ 15:[address] Tj Jain MD) Anemia Atherosclerotic heart disease of [place] coronary artery without angina pectoris Bilateral carotid artery stenosis Biliary colic CAD (coronary artery disease) Cancer Cardiology follow-up encounter Chronic cough Jayson's syndrome Essential hypertension Former smoker Gastric reflux Gastrointestinal bleeding Gastrointestinal bleeding, upper GERD (gastroesophageal reflux disease) Heart murmur High cholesterol History of echocardiogram History of edema History of GI bleed History of left heart catheterization (LHC) (~07/14/20) History of stress test Hypertension Iron deficiency anemia due to chronic blood loss Nonrheumatic aortic (valve) stenosis [place] (obstructive sleep apnea) Osteoarthritis Paroxysmal atrial fibrillation PONV (postoperative nausea and vomiting) Psoriasis Pure hypercholesterolemia Sleep disorder TIA (transient ischemic attack) TIA (transient ischemic attack) Tobacco abuse Type 2 diabetes mellitus Walker as ambulation aid Wears dentures Wears glasses Home Medications ezetimibe 10 mg tablet 10 mg PO QHS cholesterol 09/01/13 [History Last Taken 06/08/23] pantoprazole 40 mg tablet,delayed release 40 mg PO DAILY gerd 09/01/13 [History Last Taken 06/09/23] nitroglycerin 0.4 mg sublingual tablet 0.4 mg sublingual Q5M PRN Chest Pain #25 tabs 10/05/18 [Rx Last Taken 04/12/19] niacin (inositol niacinate) 500 mg capsule 1,000 mg PO BID supplement 04/12/19 [History Last Taken 06/09/23] furosemide 20 mg tablet (Lasix) 20 mg PO DAILY PRN FLUID 12/15/20 [History Last Taken 06/06/23] clopidogrel 75 mg tablet 75 mg PO DAILY blood thinner 04/18/21 [History Last Taken 06/09/23] clobetasol 0.05 % topical cream 1 applic topical PRN PSORISIS 06/09/23 [History Last Taken Unknown] methylprednisolone 4 mg tablets in a dose pack 4 mg PO UD 06/09/23 [History Last Taken Unknown] metoprolol tartrate 50 mg tablet 50 mg PO Q12H 06/09/23 [History Last Taken 06/09/23] Allergy/AdvReac Type Severity Reaction Status Date / Time Sulfa (Sulfonamide Allergy Severe HEART Verified 06/09/23 13:00 Antibiotics) RACING Latex, Natural Rubber Allergy Rash, Verified 06/09/23 13:00 psioriasis amoxicillin [From Augmentin] AdvReac Nausea Verified 06/09/23 13:00 atorvastatin [From Lipitor] AdvReac Other Verified 06/09/23 13:00 clavulanic acid AdvReac Nausea Verified 06/09/23 13:00 [From Augmentin] Iodinated Contrast Media AdvReac Other Verified 06/09/23 13:00 [CONTRASTS] lisinopril AdvReac Other Verified 06/09/23 13:00 red dye AdvReac NEEDS Verified 06/09/23 13:00 FOLLOW-UP rosuvastatin [From Crestor] AdvReac Other Verified 06/09/23 13:00 turkey AdvReac Rash Verified 06/09/23 13:00 Family History Mother Heart disease Diabetes Father Heart disease Cancer Sister Cancer COPD (chronic obstructive pulmonary disease) Surgical History History of aortic valve replacement with bioprosthetic valve (~09/06/13) History of bilateral carotid endarterectomy History of cardiac catheterization History of coronary artery bypass surgery (~09/06/13) History of esophagogastroduodenoscopy (EGD) History of left mastectomy (~1998) History of right mastectomy (~1998) History of tubal ligation Hx of colonoscopy Social History household members: none housing: house Smoking Status: Former smoker how long ago did patient quit smokin second hand exposure: No alcohol intake: never substance use type: does not use caffeine: Yes Type: coffee Number of servings: 2 and tea what type of physical activity do you participate in: none 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 Positive for weakness, positive for low blood count Eyes: Negative for vision loss, vision change, double vision ENT: Negative for any sore throat, ear pain, congestion Cardiovascular: Negative for any chest pain, tightness, palpitations Respiratory: Negative for any cough, sputum production, hemoptysis, dyspnea, dyspnea on exertion, orthopnea Gastrointestinal: Negative for any nausea, vomiting, diarrhea, constipation, blood in stool, blood in vomit. Positive for abdominal pain : Negative for any urinary frequency, dysuria, retention, blood in urine Muscle skeletal: Negative for any neck pain, back pain Neurological: Negative for any headache, syncope, dizziness Skin: Negative for any rashes, itching, abrasions, lacerations Psychiatric: Negative for any depression, anxiety, stress, suicidal ideation, homicidal ideation Hematologic: Negative for any excessive bruising, easy bleeding EXAM <JACLYN Camacho - Last Filed: 06/09/23 15:24> Physical Exam Narrative Exam Narrative: Vital signs reviewed. Patient appears to be in no obvious respiratory distress. HEET: Head normocephalic atraumatic, TMs clear bilaterally. Posterior pharynx is clear, dry mucous membranes. Nares clear bilaterally. Neck: Supple with no lymphadenopathy or tenderness. No signs of meningismus. Cardiac: Regular rate and rhythm no murmurs gallops or rubs, equal peripheral pulses bilaterally. Respiratory: Lungs clear to auscultation bilaterally. No chest tenderness. Abdomen: Soft, tenderness to the right lower quadrant, nondistended. No abdominal bruit or pulsatile masses. No hepatosplenomegaly Extremities: No peripheral edema, no signs of gross trauma or deformity. Active full range of motion of all extremities. Neuro: Cranial nerves II through XII intact, no focal neurological deficits. Skin: Clean dry and intact with no rash, purpura, petechiae, vesicles or pustules. Backs/flank: No CVA tenderness, no midline spinal tenderness, no deformity. Psych: Normal mood and affect. No SI, HI or acute psychosis. Rectal exam: Completed with female nurse foam machine operator, chronic hemorrhoids, no acute bleeding, no sam blood, rectal exam showed minimal stool in the rectal vault, light-colored stool, no dark stool, no dark tarry stool or bright red blood. Const Vital Signs: 06/09/23 13:00 06/09/23 13:04 06/09/23 15:08 Temperature 97.5 F L 98.0 F Temperature Source Temporal Oral Pulse Rate 72 72 Respiratory Rate 18 17 Respiratory Effort Normal Non-Labored Blood Pressure 129/51 H 131/59 H Blood Pressure Mean 77 83 Blood Pressure Source Monitor Blood Pressure Position Semi-Fowlers Blood Pressure Location Left Arm Pulse Ox 100 95 Oxygen Delivery Method Room Air Room Air 06/09/23 15:13 06/09/23 15:19 06/09/23 15:00 Temperature 98.0 F 98 F Temperature Source Oral Pulse Rate 71 73 73 Respiratory Rate 18 18 22 H Respiratory Effort Blood Pressure 131/57 H 119/67 Blood Pressure Mean 81 84 Blood Pressure Source Monitor Blood Pressure Position Semi-Fowlers Blood Pressure Location Left Arm Pulse Ox 95 97 94 Oxygen Delivery Method Room Air Room Air 06/09/23 15:28 Temperature 98.1 F Temperature Source Oral Pulse Rate 72 Respiratory Rate 18 Respiratory Effort Blood Pressure 126/56 H Blood Pressure Mean 79 Blood Pressure Source Monitor Blood Pressure Position Semi-Fowlers Blood Pressure Location Left Arm Pulse Ox 95 Oxygen Delivery Method Room Air Positive well nourished <Dr. Tj Jain MD - Last Filed: 06/09/23 15:31> Physical Exam Const Vital Signs: 06/09/23 13:00 06/09/23 13:04 06/09/23 15:08 Temperature 97.5 F L 98.0 F Temperature Source Temporal Oral Pulse Rate 72 72 Respiratory Rate 18 17 Respiratory Effort Normal Non-Labored Blood Pressure 129/51 H 131/59 H Blood Pressure Mean 77 83 Blood Pressure Source Monitor Blood Pressure Position Semi-Fowlers Blood Pressure Location Left Arm Pulse Ox 100 95 Oxygen Delivery Method Room Air Room Air 06/09/23 15:13 06/09/23 15:19 06/09/23 15:00 Temperature 98.0 F 98 F Temperature Source Oral Pulse Rate 71 73 73 Respiratory Rate 18 18 22 H Respiratory Effort Blood Pressure 131/57 H 119/67 Blood Pressure Mean 81 84 Blood Pressure Source Monitor Blood Pressure Position Semi-Fowlers Blood Pressure Location Left Arm Pulse Ox 95 97 94 Oxygen Delivery Method Room Air Room Air 06/09/23 15:28 Temperature 98.1 F Temperature Source Oral Pulse Rate 72 Respiratory Rate 18 Respiratory Effort Blood Pressure 126/56 H Blood Pressure Mean 79 Blood Pressure Source Monitor Blood Pressure Position Semi-Fowlers Blood Pressure Location Left Arm Pulse Ox 95 Oxygen Delivery Method Room Air DIAMOND <JACLYN Camacho - Last Filed: 06/09/23 15:24> [facility] Lab Data Labs: Laboratory Results - last 24 hr 06/09/23 13:45 WBC 7.2 RBC 3.30 L Hgb 7.0 L Hct 26.1 L MCV 79.1 L MCH 21.2 L MCHC 26.8 L RDW Std Deviation 51.8 H RDW Coeff of Velasquez 18.1 H Plt Count 254 MPV 10.3 Immature Gran % (Auto) 0.300 Neut % (Auto) 74.3 H Lymph % (Auto) 11.0 L [place] % (Auto) 11.9 H Eos % (Auto) 1.5 Baso % (Auto) 1.0 Absolute Neuts (auto) 5.4 Absolute Lymphs (auto) 0.79 L Nucleated RBC % 0 Sodium 141 Potassium 3.8 Chloride 107 Carbon Dioxide 31.0 Anion Gap 3 L BUN 23 H Creatinine 1.44 H Est GFR (MDRD) Af Amer 45 L Est GFR (MDRD) Non-Af 37 L BUN/Creatinine Ratio 16.0 Glucose 128 H Calcium 8.4 L Total Bilirubin 1.60 H AST 19 ALT 19 Alkaline Phosphatase 62 Total Protein 6.5 Albumin 3.3 Globulin 3.2 Albumin/Globulin Ratio 1.0 Lipase 79 H Blood Type A POSITIVE Antibody Screen NEGATIVE Crossmatch See Detail Treatment and Re-Evaluation :: Differential diagnosis includes however is not limited to: Lower GI bleed, bleeding hemorrhoid, upper GI bleed, mass, acute appendicitis, acute on chronic anemia. Patient appears to be in no obvious distress, vital signs are stable. Presenting to the emergency department with abdominal pain, low hemoglobin. Patient patient states that she is been having right-sided abdominal pain has been getting worse. On my examination, I see no obvious signs of bleeding, patient's stool was light-colored. This will be sent to the lab. Patient's CBC, chemistries, lipase will be ordered. Patient will be typed and crossed for 2 units of packed red blood cells, depending on the patient's hemoglobin, patient will receive blood. CT of the abdomen pelvis without contrast will be ordered just to rule out a mass or stranding. All radiologic examinations were read, reviewed by the emergency department attending. From these reads, a plan of care will be put in place. Patient's laboratory values show CBC with anemia, patient's white blood cell count is 7.2, hemoglobin is 7.0. Yesterday she was 6.9. November of last year she was 8.9, this seems to be baseline. Patient does seem to have some renal sufficiency with a creatinine of 1.4, patient's electrolytes are unremarkable, GFR is 37. Patient's glucose 128, total bilirubin 1.6. Patient lipase slightly elevated 79, this is nonspecific.. Patient is positive for blood in stool. Patient received type and cross and received 1 unit of packed red blood cells. I will speak out to the hospitalist to get the patient admitted. <Dr. Tj Jain MD - Last Filed: 06/09/23 15:31> [facility] Narrative Medical decision making narrative: I have personally performed a face to face assessment of the patient and have reviewed the LEXUS Note. I performed a substantive portion of the visit including all aspects of the following. My valentin findings include: History is [82-year-old female history of prior GI bleed. Sent in due to outpatient labs showed a low hemoglobin. Primary care physician wanted the patient transfused. Patient denies any complaints and just being fatigued and generally weak. She denies any hematemesis or melena that she has noted. She is on Plavix. Also aspirin. 21. A 2-year-old female. Vital signs stable afebrile. H EENT exam unremarkable. Neck nontender no JVD. Lungs clear to auscultation bilaterally. Heart regular rhythm no murmur.] Abdomen soft and nontender. Moving all 4 extremities. Nontender. Bilateral lower extremity 1+ pitting edema. No cords. No calf tenderness. Neurologically she is awake and alert with no focal motor deficits.] Medical Decision Making [elderly female with anemia on labs with a hemoglobin of 7. Heme positive stool. She will be typed and crossed and transfused 1 unit. We have the hospitalist on page for admission. She is heme positive on her. Stool.] Other additions or changes: [None] Patient told the nurse that she has some midsternal chest pain. EKG shows a sinus rhythm rate is 73 no acute signs of [place] or ischemia. There is a left bundle branch block. Troponin level was also sent. That is pending. Lab Data Attestation: I reviewed the patient's lab results. Lab results narrative: CBC shows a white count of 7. H&H is 7 and 26. Recent lab was 6.9 and hemoglobin previously higher than that. Electrolytes unremarkable. BUN 23 creatinine 1.44. Liver enzymes unremarkable. Stool Hemoccult positive. Labs: Laboratory Results - last 24 hr 06/09/23 13:45 WBC 7.2 RBC 3.30 L Hgb 7.0 L Hct 26.1 L MCV 79.1 L MCH 21.2 L MCHC 26.8 L RDW Std Deviation 51.8 H RDW Coeff of Velasquez 18.1 H Plt Count 254 MPV 10.3 Immature Gran % (Auto) 0.300 Neut % (Auto) 74.3 H Lymph % (Auto) 11.0 L [place] % (Auto) 11.9 H Eos % (Auto) 1.5 Baso % (Auto) 1.0 Absolute Neuts (auto) 5.4 Absolute Lymphs (auto) 0.79 L Nucleated RBC % 0 Sodium 141 Potassium 3.8 Chloride 107 Carbon Dioxide 31.0 Anion Gap 3 L BUN 23 H Creatinine 1.44 H Est GFR (MDRD) Af Amer 45 L Est GFR (MDRD) Non-Af 37 L BUN/Creatinine Ratio 16.0 Glucose 128 H Calcium 8.4 L Total Bilirubin 1.60 H AST 19 ALT 19 Alkaline Phosphatase 62 Total Protein 6.5 Albumin 3.3 Globulin 3.2 Albumin/Globulin Ratio 1.0 Lipase 79 H Blood Type A POSITIVE Antibody Screen NEGATIVE Crossmatch See Detail Rhythm Strip Rhythm Strip: Sinus Rhythm Rate: 73 Ectopy: None EKG Initial EKG: Attestation: I personally reviewed and interpreted this EKG as follows: Interpretation: Sinus Rhythm and No Acute Injury Pattern Comments: Normal sinus rhythm rate of 73 no acute signs of [place] or ischemia. Left bundle branch block. History of left bundle branch block. Prior EKG tracings: available for review Prior: Unchanged Discharge Plan Dx/Rx/DC Orders Clinical Impression: Anemia, Acute GI bleeding, History of diabetes mellitus Disposition Disposition: Acute Care Hospital [facility]
[2023-06-09 14:05] LABS: Absolute Lymphocyte Count 0.79 X10^3/uL (0.83-4.51); Absolute Neutrophil Count 5.4 X10^3/uL (2.0-7.7); Basophil# 0.07 X10^3/uL; Eosinophil# 0.11 X10^3/uL; Eosinophils% 1.5 % (0-5); Hematocrit 26.1 % (37-47); Lymphocyte # 0.79 X10^3/ul (0.83-4.51); Mean Corp Hgb Conc 26.8 g/dL (32-36); Mean Corpuscular Hgb 21.2 pg (27.0-32.0); Mean Corpuscular Volume 79.1 fL (81-99); Mean Platelet Vol. 10.3 fl (6.2-12.0); Monocyte# 0.86 X10^3/uL; Monocyte% 11.9 % (0-10); NRBC Flagged by Analyzer 0 % (0-5); Neutrophil # 5.35 X10^3/uL (2.7-7.7); Neutrophil % 74.3 % (47-70); Platelet Count 254 K/mm3 (150-450); RBC Distribution Width CV 18.1 % (11.6-14.6); RBC Distribution Width SD 51.8 fl (35.1-43.9); White Blood Count 7.2 K/mm3 (4.4-11.0)
[2023-06-09 14:20] LABS: AST(SGOT) 19 U/L (15-37); Alanine Aminotransfer ALT/SGPT 19 U/L (13-56); Albumin, Serum 3.3 g/dL (3.2-5.0); Alkaline Phosphatase 62 U/L (45-117); Anion Gap 3 (5-15); BUN 23 mg/dL (7-18); Calcium,Total 8.4 mg/dL (8.5-10.1); Chloride 107 mmol/L (98-107); Creatinine, Serum 1.44 mg/dL (0.55-1.02); EST Glomerular Filtration Rate 37 mL/min (>60); Est Glom Filt Rate - Afr Amer 45 mL/min (>60); Globulin 3.2 g/dL (2.2-4.2); Glucose 128 mg/dL (74-106); Lipase 79 U/L (13-75); Potassium 3.8 mmol/L (3.5-5.1); Protein, Total 6.5 g/dL (6.4-8.2); Sodium Level 141 mmol/L (136-145)
--- NOTE | 2023-06-09 15:18 | EKG12_ITS ---
Test Reason : CP Blood Pressure : / mmHG Vent. Rate : 073 BPM Atrial Rate : 073 BPM P-R Int : 176 ms QRS Dur : 148 ms QT Int : 438 ms P-R-T Axes : 047 -11 152 degrees QTc Int : 482 ms Normal sinus rhythm Left bundle branch block Abnormal ECG Confirmed by Donnie Carbajal ([id number]), film editor CHRISTIN BARTHOLOMEW ([id number]) on 06/10/2023 9:45:29 AM Referred By: Confirmed By:Donnie Carbajal
--- NOTE | 2023-06-09 15:57 | PCM.HP.STD ---
HPI - General General Date of Admission: 06/09/23 Date of Service: 06/09/23 Chief Complaint: Abn Labs-Anemia HPI Narrative SAMMY SOLOMON, is a 82 F who presented to the emergency department due to abnormal labs. She had been at her primary care's office complaining of increased lower extremity edema and shortness of breath. CBC was drawn and she was found to be anemic with a hemoglobin of 7. 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 This was thought to be related to her aortic valve disease. She had a history of an aortic valve replacement 2014 and then had a TAVR performed in November 2021. At the time of my questioning she was noted to have increased lower extremity edema and she states this has been ongoing for about 3 weeks now. She states her primary care physician had increased her Lasix but she had not noticed much of a decrease in her swelling. She does have some concomitant shortness of breath that has been coinciding with the onset of her increased edema. She does not think she has had an echo done since her valve replacement in 2021. She was surprised to learn that she had had blood in her stool. She states she has had no dark tarry stools or bloody bowel movements. She denies any nausea or vomiting. 1 unit of packed red blood cells has been ordered in the emergency department and request for admission was made. Vital signs on presentation showed temperature of 98, blood pressure 137/68, heart rate 75, respiratory rate 16 oxygen saturations were 94% on room air. Her CBC shows a normal white count but she does have a hemoglobin of 7.0. She has microcytic with an MCV of 79.1. Platelet count is normal. Chemistry panel shows normal electrolytes with stable BUN and creatinine at 23 and 1.44. Her serum glucose was 128 and her total bilirubin was 1.6 with normal AST and ALT. Troponin was 35. Lipase was slightly elevated at 79 patient was not having any nausea or vomiting. BNP was asked to be drawn and is pending at the time of admission. Chest x-ray was also pending at the time of admission. EKG shows normal sinus rhythm with a rate of 73 and no ectopy, she has a chronic left bundle branch block when compared to previous it stable and no ST-T wave changes concerning for acute ischemia. Intervals are normal. As noted above, she was given 1 unit of packed red blood cells in the emergency department. I did find that she had lower extremity edema which has been new in the last 3 weeks and she will also be treated for heart failure. Her last echocardiogram here was done in 2020 which was prior to her TAVR in 2021 which showed an EF of 55 to 60%, mild concentric LVH, moderate pulmonary hypertension with a right ventricular systolic pressure of 55 mmHg and severe aortic valve stenosis. [facility] Medical History (Updated 06/09/23 @ 17:[address] Adrienne Bowden, DO) Anemia Atherosclerotic heart disease of [place] coronary artery without angina pectoris Bilateral carotid artery stenosis Biliary colic CAD (coronary artery disease) Cancer Cardiology follow-up encounter Chronic cough Jayson's syndrome Essential hypertension Former smoker Gastric reflux Gastrointestinal bleeding Gastrointestinal bleeding, upper GERD (gastroesophageal reflux disease) Heart murmur High cholesterol History of echocardiogram History of edema History of GI bleed History of left heart catheterization (LHC) (~07/14/20) History of stress test Hypertension Iron deficiency anemia due to chronic blood loss Nonrheumatic aortic (valve) stenosis [place] (obstructive sleep apnea) Osteoarthritis Paroxysmal atrial fibrillation PONV (postoperative nausea and vomiting) Psoriasis Pulmonary artery hypertension Pure hypercholesterolemia Sleep disorder TIA (transient ischemic attack) TIA (transient ischemic attack) Tobacco abuse Type 2 diabetes mellitus Walker as ambulation aid Wears dentures Wears glasses Home Medications ezetimibe 10 mg tablet 10 mg PO QHS cholesterol 09/01/13 [History Last Taken 06/08/23] pantoprazole 40 mg tablet,delayed release 40 mg PO DAILY gerd 09/01/13 [History Last Taken 06/09/23] nitroglycerin 0.4 mg sublingual tablet 0.4 mg sublingual Q5M PRN Chest Pain #25 tabs 10/05/18 [Rx Last Taken 04/12/19] niacin (inositol niacinate) 500 mg capsule 1,000 mg PO BID supplement 04/12/19 [History Last Taken 06/09/23] furosemide 20 mg tablet (Lasix) 20 mg PO DAILY PRN FLUID 12/15/20 [History Last Taken 06/06/23] clopidogrel 75 mg tablet 75 mg PO DAILY blood thinner 04/18/21 [History Last Taken 06/09/23] clobetasol 0.05 % topical cream 1 applic topical PRN PSORISIS 06/09/23 [History Last Taken Unknown] methylprednisolone 4 mg tablets in a dose pack 4 mg PO UD 06/09/23 [History Last Taken Unknown] metoprolol tartrate 50 mg tablet 50 mg PO Q12H 06/09/23 [History Last Taken 06/09/23] Allergy/AdvReac Type Severity Reaction Status Date / Time Sulfa (Sulfonamide Allergy Severe HEART Verified 06/09/23 13:00 Antibiotics) RACING Latex, Natural Rubber Allergy Rash, Verified 06/09/23 13:00 psioriasis amoxicillin [From Augmentin] AdvReac Nausea Verified 06/09/23 13:00 atorvastatin [From Lipitor] AdvReac Other Verified 06/09/23 13:00 clavulanic acid AdvReac Nausea Verified 06/09/23 13:00 [From Augmentin] Iodinated Contrast Media AdvReac Other Verified 06/09/23 13:00 [CONTRASTS] lisinopril AdvReac Other Verified 06/09/23 13:00 red dye AdvReac NEEDS Verified 06/09/23 13:00 FOLLOW-UP rosuvastatin [From Crestor] AdvReac Other Verified 06/09/23 13:00 turkey AdvReac Rash Verified 06/09/23 13:00 Family History Mother Heart disease Diabetes Father Heart disease Cancer Sister Cancer COPD (chronic obstructive pulmonary disease) Surgical History (Updated 06/09/23 @ 17:[address] Adrienne Bowden DO) History of aortic valve replacement with bioprosthetic valve (~09/06/13) History of bilateral carotid endarterectomy History of cardiac catheterization History of cholecystectomy History of coronary artery bypass surgery (~09/06/13) History of esophagogastroduodenoscopy (EGD) History of left mastectomy (~1998) History of right mastectomy (~1998) History of tubal ligation Hx of colonoscopy S/P insertion of iliac artery stent S/P TAVR (transcatheter aortic valve replacement) Social History household members: none housing: house Smoking Status: Former smoker how long ago did patient quit smokin second hand exposure: No alcohol intake: never substance use type: does not use caffeine: Yes Type: coffee Number of servings: 2 and tea what type of physical activity do you participate in: none franci/taoism: Yarsanism seatbelt use: always do you feel safe at home: Yes ROS Constitutional Constitutional: Reports change in weight and weakness; Denies anorexia, chills, fatigue, fever(s), malaise, night sweats or other Eyes Eyes: Denies blurry vision, change in eye color, change in vision, discharge from eye(s), double vision, erythema, eye pain, loss of vision or other ENT HEENT: Reports abnormal hearing and hearing loss; Denies dysphagia, ear pain, epistaxis, headache(s), nasal congestion, nasal discharge, post nasal drip, sinus pressure, sore throat or other Cardiovascular Cardiovascular: Reports dyspnea on exertion and edema; Denies chest pain, claudication, lightheadedness, orthopnea, palpitations, paroxysmal nocturnal dyspnea, rapid heart rate, syncope or other Respiratory/Chest Respiratory/Chest: Reports dyspnea and shortness of breath with exertion; Denies cough, excessive phlegm production, hemoptysis, productive cough, shortness of breath at rest, wheezing or other Gastrointestinal Gastrointestinal: Denies abdominal pain, coffee ground emesis, constipation, diarrhea, dyspepsia, hematemesis, hematochezia, loose stools, melena, nausea, vomiting or other Genitourinary Genitourinary: Denies burning urination, difficulty urinating, dysuria, hematuria, nocturia, urinary frequency, urinary hesitancy, urinary incontinence, urinary urgency or other Musculoskeletal Musculoskeletal: Reports back pain; Denies arthralgias, joint pain, joint stiffness, joint swelling, myalgias, neck pain or other Neurologic Neurologic: Denies abnormal gait, abnormal speech, confusion, disequilibrium, dizziness, focal weakness, headache(s), numbness, paresthesias, seizure-like activity, seizures, syncope, tingling, tremor(s) or other Psychiatric Psychiatric: Denies anxiety, depression, homicidal ideation, suicidal ideation or other Endocrine Endocrinology: Denies change in body appearance, cold intolerance, excessive sweating, heat intolerance, polydipsia, polyuria or other Hematologic/Lymphatic Hematologic/Lymphatic: Denies anemia, easy bleeding, easy bruising, lymphadenopathy or other Allergic/Immunologic Allergic/Immunologic: Denies rhinitis, hives, eczemia, asthma or other Vital Signs Vital Signs Vital Signs: 06/09/23 13:00 06/09/23 13:04 06/09/23 15:08 Temperature 97.5 F L 98.0 F Temperature Source Temporal Oral Pulse Rate 72 72 Respiratory Rate 18 17 Respiratory Effort Normal Non-Labored Blood Pressure 129/51 H 131/59 H Blood Pressure Mean 77 83 Blood Pressure Source Monitor Blood Pressure Position Semi-Fowlers Blood Pressure Location Left Arm Pulse Ox 100 95 Oxygen Delivery Method Room Air Room Air 06/09/23 15:13 06/09/23 15:19 06/09/23 15:00 Temperature 98.0 F 98 F Temperature Source Oral Pulse Rate 71 73 73 Respiratory Rate 18 18 22 H Respiratory Effort Blood Pressure 131/57 H 119/67 Blood Pressure Mean 81 84 Blood Pressure Source Monitor Blood Pressure Position Semi-Fowlers Blood Pressure Location Left Arm Pulse Ox 95 97 94 Oxygen Delivery Method Room Air Room Air 06/09/23 15:28 Temperature 98.1 F Temperature Source Oral Pulse Rate 72 Respiratory Rate 18 Respiratory Effort Blood Pressure 126/56 H Blood Pressure Mean 79 Blood Pressure Source Monitor Blood Pressure Position Semi-Fowlers Blood Pressure Location Left Arm Pulse Ox 95 Oxygen Delivery Method Room Air Weight Weight: 72.8 kg Body Mass Index (BMI) 29.3 Physical Exam Const alert, oriented x3, no apparent distress and well nourished; Negative for healthy appearing Constitutional Narrative: Overweight, elderly white female, sitting up in bed, appears comfortable and nontoxic, is pale, appears mildly frail and chronically ill General Appearance: cooperative HEENT normocephalic, head/scalp atraumatic and moist oral mucous membranes HEENT Narrative: Mild hearing loss, Mallampati is 2, no thrush Eyes PERRL and EOMs intact bilaterally Eyes Narrative: Conjunctiva pallor bilaterally, no scleral icterus Neck no lymphadenopathy and supple Neck Narrative: Cardiac murmur that radiates to carotids bilaterally Resp normal respiratory effort, no retractions, no use of accessory muscles and No clear to auscultation bilaterally Resp Narrative: Crackles at bases bilaterally Auscultation: crackles; Negative for rhonchi or wheezes Cardio regular rate, regular rhythm, S1 normal heart sound, S2 normal heart sound, no rub, no gallops and no clicks; Negative for no murmurs Cardio Narrative: 3 out of 6 systolic murmur loaded mostly at the right upper sternal border GI normal to inspection, nondistended, normoactive bowel sounds, soft to palpation and non-tender Extremity Extremity Narrative: 2+ bilateral lower extremity pitting edema, no clot cyanosis or clubbing Skin No no rashes or lesions noted, No no wounds, skin turgor normal, no jaundice, no petechiae and no mottling Skin Narrative: Scattered areas of psoriasis with no signs of infection, skin is pale Neuro oriented x3, CN's II-XII intact bilaterally, moves all extremities and no focal motor deficits Neuro Narrative: Generalized weakness noted with no focal deficits Speech: speech normal Psych affect normal Psych Narrative: Patient is quite verbose, appears comfortable and nontoxic, very pleasant Results Lab / Micro Data 06/09/23 13:45 06/09/23 13:45 Labs: Laboratory Results - last 24 hr 06/09/23 13:45: WBC 7.2, RBC 3.30 L, Hgb 7.0 L, Hct 26.1 L, MCV 79.1 L, MCH 21.2 L, MCHC 26.8 L, RDW Std Deviation 51.8 H, RDW Coeff of Velasquez 18.1 H, Plt Count 254, MPV 10.3, Immature Gran % (Auto) 0.300, Neut % (Auto) 74.3 H, Lymph % (Auto) 11.0 L, [place] % (Auto) 11.9 H, Eos % (Auto) 1.5, Baso % (Auto) 1.0, Absolute Neuts (auto) 5.4, Absolute Lymphs (auto) 0.79 L, Nucleated RBC % 0, Sodium 141, Potassium 3.8, Chloride 107, Carbon Dioxide 31.0, Anion Gap 3 L, BUN 23 H, Creatinine 1.44 H, Est GFR (MDRD) Af Amer 45 L, Est GFR (MDRD) Non-Af 37 L, BUN/Creatinine Ratio 16.0, Glucose 128 H, Calcium 8.4 L, Total Bilirubin 1.60 H, AST 19, ALT 19, Alkaline Phosphatase 62, Total Protein 6.5, Albumin 3.3, Globulin 3.2, Albumin/Globulin Ratio 1.0, Lipase 79 H, Blood Type A POSITIVE, Antibody Screen NEGATIVE, Crossmatch See Detail Micro: Microbiology 06/09/23 14:03 Stool Stool Occult Blood (ORLY) - Final Occult Blood Positive Rhythm Strip Rhythm Strip: Sinus Rhythm Rate: 73 Ectopy: None Assessment & Plan Assessment/Plan (1) Acute GI bleeding: (2) Anemia: PLAN: Plan GIB -Patient with history of multiple gastric, duodenal, and further small bowel AVMs -Likely related to aortic valve disease -Had TAVR in November 2021 -Last EGD was 2021 at which time she had a normal esophagus, 2 nonbleeding angiodysplastic lesions in the stomach, 3 angiodysplastic lesions in the duodenum and 1 in the jejunum which were treated -Patient with worsening anemia and guaiac positive stool -Protonix IV twice daily -N.p.o. after midnight -Consult gastroenterology for EGD--> discussed case with Dr. Montague Acute on Chronic Anemia -Baseline hemoglobin appears to been running between 8 and 9 -Current hemoglobin is 7.0 -Give 1 unit packed red blood cells -Cycle hemoglobin every 6 hours x 4 -Treatment for GI bleed as above Acute on chronic heart failure preserved ejection fraction/lower extremity edema -Patient with lower extremity edema that has been problematic over the last 2 to 3 weeks -Has not really responded to outpatient oral Lasix -Chest x-ray she looks like she has somewhat volume overload -BNP is markedly elevated and close to 2000 -Check echocardiogram -Lower extremity Jamel bandages -Lasix drip -Repeat BMP at 2200 and again in a.m. as long as BMP at 2200 is stable -Fluid restricted diet -Sodium restricted diet -Daily weights -Accurate I's and O's -Last echocardiogram here was done in 2020 which was prior to her TAVR in 2021 which showed an EF of 55 to 60%, mild concentric LVH, moderate pulmonary hypertension with a right ventricular systolic pressure of 55 mmHg and severe aortic valve stenosis -Hold on cardiology consult at this time however may need some input Hyperbilirubinemia -Suspect related to passive congestion from acute acute on chronic heart failure -Repeat in a.m. CAD/aortic valve stenosis/hyperlipidemia/hypertension -Patient is status post CABG and aortic valve in 2014 -Continue home niacin -Continue home Zetia -Continue home metoprolol -TAVR in November 2021 -Will hold home aspirin and Plavix for now due to GI bleeding -Echocardiogram is pending History of gastritis/history of duodenal ulcer/GERD -See above -IV Protonix p.o. twice daily History of DM-2 -It appears the patient is not on any medications for this -Nonfasting blood sugar on admission was 128 -Most recent A1c was 5.1 on 11/10/2021 which is not consistent with diabetes -Will not get A1c at this time as patient is fairly anemic Psoriasis -Continue topicals History of tobacco abuse -Remote -No acute issues DVT prophylaxis -SCDs -Hold chemoprophylaxis with anemia CODE STATUS -DNR CCA with no intubation as verified on admission Charges/Coding Visit Charges Inpatient E&M: 36506 Init Hosp L3
[2023-06-09 16:10] LABS: Troponin-I HS 35 pg/mL (3.0-54.0)
--- NOTE | 2023-06-09 17:11 | ECHOD_ITS ---
Reason For Study: CHF Procedure This was a 2D Doppler, Color Flow transthoracic echocardiogram. Exam performed portable in patient room. Left Ventricle Normal LV size. The estimated ejection fraction is 45 %. Unable to assess diastolic dysfunction. Septal hypokinesis. Right Ventricle Normal RV size. Normal systolic function. Atria There is mild biatrial dilatation. No doppler evidence for ASD. Mitral Valve There is moderate mitral annular calcification. There is no mitral valve stenosis. Mild (1+) mitral valve insufficiency. Tricuspid Valve There is no tricuspid stenosis. Mild to moderate (1-2+) tricuspid valve insufficiency. Pulmonary artery systolic pressure is 45 mmHg. Aortic Valve There is no aortic stenosis. Trivial aortic valve insufficiency. Stable appearing bioprosthetic aortic valve apparatus. Pulmonic Valve There is no pulmonic valvular stenosis. No pulmonic valve insufficiency. Great Vessels Normal aortic root. Pericardium/Pleural No pericardial effusion. MMode/2D Measurements & Calculations LVIDd: 4.4 cm IVSd: 1.6 cm LVOT diam: 1.8 cm LVIDs: 3.3 cm LVPWd: 1.5 cm LVOT area: 2.6 cm2 FS: 24.9 % Ao root diam: 2.8 cm LAV(MOD-bp): 57.7 ml LVAd ap4: 27.6 cm2 LAV(MOD-bp) Indexed: 33.5 ml/m2 LVLd ap4: 7.5 cm LAV(MOD-sp2): 46.6 ml EDV(MOD-sp4): 82.9 ml LAV(MOD-sp4): 67.7 ml EDV(sp4-el): 86.3 ml LVAs ap4: 20.8 cm2 LVLs ap4: 6.8 cm ESV(MOD-sp4): 52.3 ml ESV(sp4-el): 53.8 ml EF(MOD-sp4): 36.9 % EF(sp4-el): 37.7 % LVAd ap2: 35.3 cm2 SV(MOD-sp4): 30.6 ml SV(MOD-sp2): 42.4 ml LVLd ap2: 7.9 cm EDV(MOD-sp2): 126.8 ml EDV(sp2-el): 133.4 ml LVAs ap2: 28.3 cm2 LVLs ap2: 7.7 cm ESV(MOD-sp2): 84.4 ml ESV(sp2-el): 88.4 ml EF(MOD-sp2): 33.4 % SV(sp4-el): 32.5 ml LA dimension(2D): 4.4 cm LA A4 area: 21.6 cm2 RA A4 area: 17.2 cm2 TAPSE: 1.3 cm Time Measurements MV dec time: 0.27 sec Doppler Measurements & Calculations MV E max andrews: 161.5 cm/sec Lat Peak E' Andrews: 7.7 cm/sec Med Peak E' Andrews: 2.6 cm/sec MV A max andrews: 113.6 cm/sec E/E' lat: 21.0 E/E' med: 61.7 MV E/A: 1.4 MV V2 max: 181.0 cm/sec MV P1/2t max andrews: 176.0 cm/sec Ao V2 max: 308.9 cm/sec MV max P.1 mmHg MV P1/2t: 69.3 msec Ao max P.2 mmHg MV V2 mean: 111.1 cm/sec Ao V2 mean: 208.3 cm/sec MV mean P.6 mmHg MV dec slope: 744.2 cm/sec2 Ao mean P.7 mmHg MV V2 VTI: 35.9 cm MVA(P1/2t): 3.2 cm2 Ao V2 VTI: 66.5 cm AV (velocity ratio): 0.62 MVA(VTI): 2.9 cm2 MILES(I,D): 1.6 cm2 MILES(V,D): 1.5 cm2 LV V1 max: 182.9 cm/sec SV(LVOT): 105.7 ml PA V2 max: 112.7 cm/sec LV V1 max P.4 mmHg LV V1 mean P.9 mmHg LV V1 mean: 121.9 cm/sec LV V1 VTI: 41.2 cm TR max andrews: 293.1 cm/sec TR max P.4 mmHg ECHO/Echo Complete Interpretation Summary The estimated ejection fraction is 45 %. Unable to assess diastolic dysfunction. Mild (1+) mitral valve insufficiency. There is mild biatrial dilatation. Ordering Physician: Adrienne Bowden Referring Physician: Daisha Ramirez M.D. Performed By: Kourtney Dominguez RDCS
[2023-06-09 17:26] LABS: BNP,B-Type NATRIURETIC PEPTIDE 1986.4 pg/mL (0-100)
--- NOTE | 2023-06-09 17:30 | EX.PCM.CON.G ---
HPI Consult Data Date of Consult: 06/09/23 HPI Narrative Reason for Consultation: Anemia HPI Narrative: SAMMY SOLOMON, is a 82 F who presents with progressive weakness and fatigue. She was discovered to have a hemoglobin of 6.9. 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 She is u underwent an upper endoscopy and colonoscopy along Pap capsule endoscopy by myself for persistently low hemoglobin. She has a history of CAD status post PTCA with stents and gastroesophageal reflux disease. She is on aspirin and Plavix on a daily basis. [facility] Medical History (Updated 06/09/23 @ 17:[address] Adrienne Bowden, DO) Anemia Atherosclerotic heart disease of [place] coronary artery without angina pectoris Bilateral carotid artery stenosis Biliary colic CAD (coronary artery disease) Cancer Cardiology follow-up encounter Chronic cough Jayson's syndrome Essential hypertension Former smoker Gastric reflux Gastrointestinal bleeding Gastrointestinal bleeding, upper GERD (gastroesophageal reflux disease) Heart murmur High cholesterol History of echocardiogram History of edema History of GI bleed History of left heart catheterization (LHC) (~07/14/20) History of stress test Hypertension Iron deficiency anemia due to chronic blood loss Nonrheumatic aortic (valve) stenosis [place] (obstructive sleep apnea) Osteoarthritis Paroxysmal atrial fibrillation PONV (postoperative nausea and vomiting) Psoriasis Pulmonary artery hypertension Pure hypercholesterolemia Sleep disorder TIA (transient ischemic attack) TIA (transient ischemic attack) Tobacco abuse Type 2 diabetes mellitus Walker as ambulation aid Wears dentures Wears glasses Home Medications ezetimibe 10 mg tablet 10 mg PO QHS cholesterol 09/01/13 [History Last Taken 06/08/23] pantoprazole 40 mg tablet,delayed release 40 mg PO DAILY gerd 09/01/13 [History Last Taken 06/09/23] nitroglycerin 0.4 mg sublingual tablet 0.4 mg sublingual Q5M PRN Chest Pain #25 tabs 10/05/18 [Rx Last Taken 04/12/19] niacin (inositol niacinate) 500 mg capsule 1,000 mg PO BID supplement 04/12/19 [History Last Taken 06/09/23] furosemide 20 mg tablet (Lasix) 20 mg PO DAILY PRN FLUID 12/15/20 [History Last Taken 06/06/23] clopidogrel 75 mg tablet 75 mg PO DAILY blood thinner 04/18/21 [History Last Taken 06/09/23] clobetasol 0.05 % topical cream 1 applic topical PRN PSORISIS 06/09/23 [History Last Taken Unknown] methylprednisolone 4 mg tablets in a dose pack 4 mg PO UD 06/09/23 [History Last Taken Unknown] metoprolol tartrate 50 mg tablet 50 mg PO Q12H 06/09/23 [History Last Taken 06/09/23] Allergy/AdvReac Type Severity Reaction Status Date / Time Sulfa (Sulfonamide Allergy Severe HEART Verified 06/09/23 13:00 Antibiotics) RACING Latex, Natural Rubber Allergy Rash, Verified 06/09/23 13:00 psioriasis amoxicillin [From Augmentin] AdvReac Nausea Verified 06/09/23 13:00 atorvastatin [From Lipitor] AdvReac Other Verified 06/09/23 13:00 clavulanic acid AdvReac Nausea Verified 06/09/23 13:00 [From Augmentin] Iodinated Contrast Media AdvReac Other Verified 06/09/23 13:00 [CONTRASTS] lisinopril AdvReac Other Verified 06/09/23 13:00 red dye AdvReac NEEDS Verified 06/09/23 13:00 FOLLOW-UP rosuvastatin [From Crestor] AdvReac Other Verified 06/09/23 13:00 turkey AdvReac Rash Verified 06/09/23 13:00 Family History Mother Heart disease Diabetes Father Heart disease Cancer Sister Cancer COPD (chronic obstructive pulmonary disease) Surgical History (Updated 06/09/23 @ 17:[address] Adrienne Bowden DO) History of aortic valve replacement with bioprosthetic valve (~09/06/13) History of bilateral carotid endarterectomy History of cardiac catheterization History of cholecystectomy History of coronary artery bypass surgery (~09/06/13) History of esophagogastroduodenoscopy (EGD) History of left mastectomy (~1998) History of right mastectomy (~1998) History of tubal ligation Hx of colonoscopy S/P insertion of iliac artery stent S/P TAVR (transcatheter aortic valve replacement) Social History household members: none housing: house Smoking Status: Former smoker how long ago did patient quit smokin second hand exposure: No alcohol intake: never substance use type: does not use caffeine: Yes Type: coffee Number of servings: 2 and tea what type of physical activity do you participate in: none 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 seatbelt use: always do you feel safe at home: Yes ROS Constitutional Constitutional: Reports change in weight and weakness; Denies anorexia, chills, fatigue, fever(s), malaise, night sweats or other Eyes Eyes: Denies blurry vision, change in eye color, change in vision, discharge from eye(s), double vision, erythema, eye pain, loss of vision or other ENT HEENT: Reports abnormal hearing and hearing loss; Denies dysphagia, ear pain, epistaxis, headache(s), nasal congestion, nasal discharge, post nasal drip, sinus pressure, sore throat or other Cardiovascular Cardiovascular: Reports dyspnea on exertion and edema; Denies chest pain, claudication, lightheadedness, orthopnea, palpitations, paroxysmal nocturnal dyspnea, rapid heart rate, syncope or other Respiratory/Chest Respiratory/Chest: Reports dyspnea and shortness of breath with exertion; Denies cough, excessive phlegm production, hemoptysis, productive cough, shortness of breath at rest, wheezing or other Gastrointestinal Gastrointestinal: Denies abdominal pain, coffee ground emesis, constipation, diarrhea, dyspepsia, hematemesis, hematochezia, loose stools, melena, nausea, vomiting or other Genitourinary Genitourinary: Denies burning urination, difficulty urinating, dysuria, hematuria, nocturia, urinary frequency, urinary hesitancy, urinary incontinence, urinary urgency or other Musculoskeletal Musculoskeletal: Reports back pain; Denies arthralgias, joint pain, joint stiffness, joint swelling, myalgias, neck pain or other Neurologic Neurologic: Denies abnormal gait, abnormal speech, confusion, disequilibrium, dizziness, focal weakness, headache(s), numbness, paresthesias, seizure-like activity, seizures, syncope, tingling, tremor(s) or other Psychiatric Psychiatric: Denies anxiety, depression, homicidal ideation, suicidal ideation or other Endocrine Endocrinology: Denies change in body appearance, cold intolerance, excessive sweating, heat intolerance, polydipsia, polyuria or other Hematologic/Lymphatic Hematologic/Lymphatic: Denies anemia, easy bleeding, easy bruising, lymphadenopathy or other Allergic/Immunologic Allergic/Immunologic: Denies rhinitis, hives, eczemia, asthma or other Lab / Micro Data 06/09/23 13:45 06/09/23 13:45 Labs: Laboratory Results - last 24 hr 06/09/23 13:45: WBC 7.2, RBC 3.30 L, Hgb 7.0 L, Hct 26.1 L, MCV 79.1 L, MCH 21.2 L, MCHC 26.8 L, RDW Std Deviation 51.8 H, RDW Coeff of Velasquez 18.1 H, Plt Count 254, MPV 10.3, Immature Gran % (Auto) 0.300, Neut % (Auto) 74.3 H, Lymph % (Auto) 11.0 L, [place] % (Auto) 11.9 H, Eos % (Auto) 1.5, Baso % (Auto) 1.0, Absolute Neuts (auto) 5.4, Absolute Lymphs (auto) 0.79 L, Nucleated RBC % 0, Sodium 141, Potassium 3.8, Chloride 107, Carbon Dioxide 31.0, Anion Gap 3 L, BUN 23 H, Creatinine 1.44 H, Est GFR (MDRD) Af Amer 45 L, Est GFR (MDRD) Non-Af 37 L, BUN/Creatinine Ratio 16.0, Glucose 128 H, Calcium 8.4 L, Total Bilirubin 1.60 H, AST 19, ALT 19, Alkaline Phosphatase 62, B-Natriuretic Peptide 1986.4 H, Total Protein 6.5, Albumin 3.3, Globulin 3.2, Albumin/Globulin Ratio 1.0, Lipase 79 H, Blood Type A POSITIVE, Antibody Screen NEGATIVE, Crossmatch See Detail 06/09/23 15:37: Troponin I High Sens 35 Micro: Microbiology 06/09/23 14:03 Stool Stool Occult Blood (ORLY) - Final Occult Blood Positive Rhythm Strip Rhythm Strip: Sinus Rhythm Rate: 73 Ectopy: None Assessment & Plan Assessment/Plan (1) Anemia requiring transfusions: PLAN: Patient should undergo deep enteroscopy. If that is negative. I will order CT angiography to see if she has any active bleeding tonight. She should undergo an EGD with push enteroscopy tomorrow. She was explained alternatives, risk, benefits including outstanding bleeding, infection, sepsis, perforation, need for emergency or . She will have an ASA of 3.
--- NOTE | 2023-06-09 17:45 | RAD_ITS ---
STUDY: X-RAY CHEST REASON FOR EXAM: Female, 82 years old. sob TECHNIQUE: AP portable COMPARISON: November 04, 2022 FINDINGS: There is a very small left pleural effusion and left basilar atelectasis. Postop change status post median sternotomy and aortic valve replacement and left atrial appendage clip placement. Heart is upper normal in size.. Normal mediastinum and erasmo. Normal visualized pulmonary arteries. Mildly calcified aortic arch and descending thoracic aorta. Dorsal spine and shoulders demonstrate degenerative change. Normal visualized ribs, and clavicles. There are surgical clips within the axilla bilaterally There is no demonstrated abnormality of the visualized soft tissue structures of the upper abdomen. RAD/Chest 1 View (Portable) IMPRESSION: Small left pleural effusion and left minor lower lobe atelectasis. Electronically Signed: Michael Jiménez MD at 18:48 EST ,
[2023-06-09] MEDS: Furosemide 40 MG/4 ML Vial IV (18:00)
[2023-06-09] MEDS: Metoprolol Tartrate 50 MG Tablet PO (21:53)
[2023-06-09] MEDS: Ezetimibe 10 MG Tablet PO (21:53)
[2023-06-09] MEDS: Furosemide 500 MG in Empty Viaflex 50 mL 1 EACH CONT INF (21:54)
[2023-06-09] MEDS: Pantoprazole Sodium 40 MG in 0.9% Normal Saline (100mL MB+) 100 ML 330 MG IV (22:20)
[2023-06-09 23:28] LABS: Hematocrit 30.8 % (37-47); Hemoglobin 8.9 g/dL (12.0-15.0)
[2023-06-09 23:44] LABS: Anion Gap 7 (5-15); BUN 24 mg/dL (7-18); BUN/Creat Ratio 15.8 RATIO (10-20); Calcium,Total 8.6 mg/dL (8.5-10.1); Chloride 108 mmol/L (98-107); Creatinine, Serum 1.52 mg/dL (0.55-1.02); EST Glomerular Filtration Rate 35 mL/min (>60); Est Glom Filt Rate - Afr Amer 42 mL/min (>60); Glucose 140 mg/dL (74-106); Potassium 3.8 mmol/L (3.5-5.1); Sodium Level 143 mmol/L (136-145)
[2023-06-10] VITALS (9 sets, daily range): BP systolic 93–152; BP diastolic 36–77; PULSE 76–88; RESP 14–16; TEMP 36.4–37.1; O2SAT 92–98
[2023-06-10 06:36] LABS: Absolute Neutrophil Count 6.1 X10^3/uL (2.0-7.7); Basophil# 0.11 X10^3/uL; Basophil% 1.3 % (0-1); Eosinophil# 0.26 X10^3/uL; Hematocrit 32.4 % (37-47); Hemoglobin 9.4 g/dL (12.0-15.0); Lymphocyte % 12.8 % (19-41); Mean Corpuscular Hgb 22.9 pg (27.0-32.0); Mean Platelet Vol. 9.9 fl (6.2-12.0); Monocyte# 1.05 X10^3/uL; Monocyte% 12.2 % (0-10); NRBC Flagged by Analyzer 0.2 % (0-5); Neutrophil # 6.05 X10^3/uL (2.7-7.7); Neutrophil % 70.2 % (47-70); Platelet Count 244 K/mm3 (150-450); RBC Distribution Width CV 19.1 % (11.6-14.6); RBC Distribution Width SD 54.7 fl (35.1-43.9); White Blood Count 8.6 K/mm3 (4.4-11.0)
[2023-06-10 07:06] LABS: AST(SGOT) 22 U/L (15-37); Alanine Aminotransfer ALT/SGPT 20 U/L (13-56); Albumin, Serum 3.6 g/dL (3.2-5.0); Alkaline Phosphatase 70 U/L (45-117); Anion Gap 4 (5-15); BUN 24 mg/dL (7-18); BUN/Creat Ratio 15.1 RATIO (10-20); Calcium,Total 9.2 mg/dL (8.5-10.1); Chloride 103 mmol/L (98-107); Creatinine, Serum 1.59 mg/dL (0.55-1.02); EST Glomerular Filtration Rate 33 mL/min (>60); Est Glom Filt Rate - Afr Amer 40 mL/min (>60); Estimated Creatinine Clearance 25.14 ml/min; Globulin 3.5 g/dL (2.2-4.2); Glucose 108 mg/dL (74-106); Magnesium 1.8 mg/dL (1.6-2.6); Phosphorus 3.4 mg/dL (2.5-4.9); Potassium 3.6 mmol/L (3.5-5.1); Protein, Total 7.1 g/dL (6.4-8.2); Sodium Level 140 mmol/L (136-145)
--- NOTE | 2023-06-10 08:14 | PN.HOSP_ITS ---
Reason for Visit Reason for Visit: Diagnoses Anemia, unspecified (06/09/23) Gastrointestinal hemorrhage, unspecified (06/09/23) Subjective Subjective Feels well. No active bleeding at this time. Objective Data Objective Data Vital Signs: Vital Signs Temp Pulse Resp BP Pulse Ox O2 Del Method 36.6 C 77 16 152/70 H 97 Room Air 06/10/23 04:00 06/10/23 04:00 06/10/23 04:00 06/10/23 04:00 06/10/23 04:00 06/10/23 05:17 Oxygen Delivery Method Room Air Weight: 70.8 kg Body Mass Index (BMI) 28.5 Intake & Output: Intake and Output for Last 24 Hours 06/08/23 06/09/23 06/10/23 23:59 23:59 23:59 Intake Total 352 / 402 50 / 50 Output Total 150 / 775 1775 / 1775 Balance 202 / -373 -1725 / -1725 Lab / Micro Data 06/10/23 11:20 06/10/23 06:10 Labs: Laboratory Results - last 24 hr 06/09/23 13:45: WBC 7.2, RBC 3.30 L, Hgb 7.0 L, Hct 26.1 L, MCV 79.1 L, MCH 21.2 L, MCHC 26.8 L, RDW Std Deviation 51.8 H, RDW Coeff of Velasquez 18.1 H, Plt Count 254, MPV 10.3, Immature Gran % (Auto) 0.300, Neut % (Auto) 74.3 H, Lymph % (Auto) 11.0 L, [place] % (Auto) 11.9 H, Eos % (Auto) 1.5, Baso % (Auto) 1.0, Absolute Neuts (auto) 5.4, Absolute Lymphs (auto) 0.79 L, Nucleated RBC % 0, Sodium 141, Potassium 3.8, Chloride 107, Carbon Dioxide 31.0, Anion Gap 3 L, BUN 23 H, Creatinine 1.44 H, Est GFR (MDRD) Af Amer 45 L, Est GFR (MDRD) Non-Af 37 L , BUN/Creatinine Ratio 16.0, Glucose 128 H, Calcium 8.4 L, Total Bilirubin 1.60 H, AST 19, ALT 19, Alkaline Phosphatase 62, B-Natriuretic Peptide 1986.4 H, Total Protein 6.5, Albumin 3.3, Globulin 3.2, Albumin/Globulin Ratio 1.0, Lipase 79 H, Blood Type A POSITIVE, Antibody Screen NEGATIVE, Crossmatch See Detail 06/09/23 15:37: Troponin I High Sens 35 06/09/23 23:17: Hgb 8.9 L, Hct 30.8 L, Sodium 143, Potassium 3.8, Chloride 108 H , Carbon Dioxide 28.0, Anion Gap 7, BUN 24 H, Creatinine 1.52 H, Estim Creat Clear Calc 26.30, Est GFR (MDRD) Af Amer 42 L, Est GFR (MDRD) Non-Af 35 L, BUN/Creatinine Ratio 15.8, Glucose 140 H, Calcium 8.6 06/10/23 06:10: WBC 8.6, RBC 4.10 L, Hgb 9.4 L, Hct 32.4 L, MCV 79.0 L, MCH 22.9 L, MCHC 29.0 L D, RDW Std Deviation 54.7 H, RDW Coeff of Velasquez 19.1 H, Plt Count 244, MPV 9.9, Immature Gran % (Auto) 0.500, Neut % (Auto) 70.2 H, Lymph % (Auto) 12.8 L, [place] % (Auto) 12.2 H, Eos % (Auto) 3.0, Baso % (Auto) 1.3 H, Absolute Neuts (auto) 6.1, Absolute Lymphs (auto) 1.10, Nucleated RBC % 0.2, Sodium 140, Potassium 3.6, Chloride 103, Carbon Dioxide 33.0 H, Anion Gap 4 L, BUN 24 H, Creatinine 1.59 H, Estim Creat Clear Calc 25.14, Est GFR (MDRD) Af Amer 40 L, Est GFR (MDRD) Non-Af 33 L, BUN/Creatinine Ratio 15.1, Glucose 108 H, Calcium 9.2, Phosphorus 3.4, Magnesium 1.8, Total Bilirubin 2.60 H, AST 22, ALT 20, Alkaline Phosphatase 70, Total Protein 7.1, Albumin 3.6, Globulin 3.5, Albumin /Globulin Ratio 1.0 Micro: Microbiology 06/09/23 14:03 Stool Stool Occult Blood (ORLY) - Final Occult Blood Positive Radiography Diagnostic Testing: Radiology Impression Chest X-Ray 06/09/23 17:45 IMPRESSION: Small left pleural effusion and left minor lower lobe atelectasis. Electronically Signed: Michael Jiménez MD at 18:48 EST , Rhythm Strip Rhythm Strip: Sinus Rhythm Rate: 73 Ectopy: None Physical Exam Const alert and no apparent distress HEENT head/scalp atraumatic and moist oral mucous membranes Resp normal respiratory effort, no retractions, no use of accessory muscles and clear to auscultation bilaterally Cardio regular rate, regular rhythm, S1 normal heart sound and S2 normal heart sound GI normal to inspection, nondistended, normoactive bowel sounds, soft to palpation, non-tender and non-distended Extremity normal to inspection and full ROM Assessment & Plan Assessment/Plan (1) Acute GI bleeding: (2) Anemia: PLAN: Plan GIB * Patient with history of multiple gastric, duodenal, and further small bowel AVMs. Likely related to aortic valve disease. Had TAVR in November 2021 * Last EGD was 2021 at which time she had a normal esophagus, 2 nonbleeding angiodysplastic lesions in the stomach, 3 angiodysplastic lesions in the duodenum and 1 in the jejunum which were treated * IV pantoprazole BID * GI consult, plan is for EGD with push enteroscopy. Acute on Chronic Anemia * Baseline hemoglobin appears to been running between 8 and 9 * Admission hemoglobin is 7.0, transfused 2 units and hemoglobin currently 9.7 * Monitor Acute on chronic heart failure reduced ejection fraction * Patient with lower extremity edema that has been problematic over the last 2 to 3 weeks * Fluid restricted diet. Sodium restricted . Daily weights. Accurate I's and O's * Echocardiogram shows an EF of 45%. Mild mitral valve insufficiency. Mild biatrial dilation. Last echocardiogram here was done in 2020 which was prior to her TAVR in 2021 which showed an EF of 55 to 60%, mild concentric LVH, moderate pulmonary hypertension with a right ventricular systolic pressure of 55 mmHg and severe aortic valve stenosis * Patient currently on room air. Chest x-ray had some small pleural effusions. * DC furosemide drip and change back to p.o. * Follow up with cardiology as outpt. Hyperbilirubinemia * Suspect related to passive congestion from acute acute on chronic heart failure Chronic conditions: * CAD/aortic valve stenosis/hyperlipidemia/hypertension: Patient is status post CABG and aortic valve in 2014. Continue home niacin. Continue home Zetia. Continue home metoprolol. TAVR in November 2021. Will hold home aspirin and Plavix for now due to GI bleeding. Echocardiogram is pending * History of gastritis/history of duodenal ulcer/GERD * History of DM-2-It appears the patient is not on any medications for this. Nonfasting blood sugar on admission was 128. Most recent A1c was 5.1 on 11/10/2021 which is not consistent with diabetes. * Psoriasis-Continue topicals * History of tobacco [id number] acute issues DVT prophylaxis -SCDs -Hold chemoprophylaxis with anemia CODE STATUS -DNR CCA with no intubation Charges/Coding Visit Charges Inpatient E&M: 47198 Subs Hosp L2
[2023-06-10] MEDS: Pantoprazole Sodium 40 MG in 0.9% Normal Saline (100mL MB+) 100 ML 330 MG IV ×2 (09:46→23:58)
--- NOTE | 2023-06-10 11:10 | CASEMGMT ---
[facility] Face to Face with patient for initial transition planning/care coordination assessment. RN CM introduced self and role at [facility]. Patient lying in bed, alert and oriented. Patient willing to participate in assessment and is able to answer all questions appropriately. Care providers, pharmacy, and demographics verified. Patient wishes to discharge home, denies need for home health at this time. Patient states she has no further needs or concerns at this time. CM to follow for discharge planning needs that may arise. PCP: James Specialists: Friend, GI; Espinoza, equipment service lead; [employer] Preferred Pharmacy: [facility] Insurance: PPT [employer] [facility] Prescription Benefit: yes Living Will/HPOA: yes, niece Yvonne Robbins LNOK: Niece Living Arrangements: Patient lives alone in a single story home with 2 steps to enter. Patient is independent at home. Transportation: self, niece DME/HHC: Patient has shower chair, cane, rollator, and grab bars at home. Patient has been to [facility] int the past. Patient has had [facility]HC in the past. Disposition Plan: Patient to discharge home with family support and follow-up plans in place. Mamta SOTO, RN, CM
[2023-06-10 11:51] LABS: Hematocrit 33.3 % (37-47); Hemoglobin 9.7 g/dL (12.0-15.0)
[2023-06-10] MEDS: Furosemide 500 MG in Empty Viaflex 50 mL 1 EACH CONT INF (14:52)
[2023-06-10 17:24] LABS: Hemoglobin 10.8 g/dL (12.0-15.0)
[2023-06-10] MEDS: Lactated Ringers 1,000 ML 15 ML IV (17:57)
--- NOTE | 2023-06-10 21:34 | OP.EGD_ITS ---
Patient Name: Ivanna Swann Procedure Date: 06/10/2023 9:15 PM Date of : 1940 Age: 82 Procedure: Upper GI endoscopy Indications: Iron deficiency anemia Providers: Bairon Montague DO Medicines: Monitored Anesthesia Care Patient Profile: This is an 82 year old female. Refer to note in patient chart for documentation of history and physical. Patient has symptoms. Complications: No immediate complications. Procedure: Pre-Anesthesia Assessment: - Prior to the procedure, a History and Physical was performed, and patient medications and allergies were reviewed. The patient is competent. The risks and benefits of the procedure and the sedation options and risks were discussed with the patient. All questions were answered and informed consent was obtained. Patient identification and proposed procedure were verified by the physician in the pre-procedure area. Mental Status Examination: alert and oriented. Airway Examination: normal oropharyngeal airway and neck mobility. Respiratory Examination: clear to auscultation. CV Examination: normal. Prophylactic Antibiotics: The patient does not require prophylactic antibiotics. Prior Anticoagulants: The patient has taken no anticoagulant or antiplatelet agents. ASA Grade Assessment: II - A patient with mild systemic disease. After reviewing the risks and benefits, the patient was deemed in satisfactory condition to undergo the procedure. The anesthesia plan was to use monitored anesthesia care (MAC). Immediately prior to administration of medications, the patient was re-assessed for adequacy to receive sedatives. The heart rate, respiratory rate, oxygen saturations, blood pressure, adequacy of pulmonary ventilation, and response to care were monitored throughout the procedure. The physical status of the patient was re-assessed after the procedure. After obtaining informed consent, the endoscope was passed under direct vision. Throughout the procedure, the patient's blood pressure, pulse, and oxygen saturations were monitored continuously. The Colonoscope was introduced through the mouth, and advanced to the second part of duodenum. The upper GI endoscopy was accomplished without difficulty. The patient tolerated the procedure well. Moderate Sedation: Moderate (conscious) sedation was personally administered by an anesthesia professional. The following parameters were monitored: oxygen saturation, heart rate, blood pressure, respiratory rate, EKG, adequacy of pulmonary ventilation, and response to care. Scope In: 9:21:32 PM Scope Out: 9:31:01 PM Total Procedure Duration Time 0 hours 9 minutes 29 seconds Findings: The examined esophagus was normal. A hiatal hernia was present. The entire examined stomach was normal. The third portion of the duodenum was normal. Impression: - Normal esophagus. - Hiatal hernia. - Normal stomach. - Normal third portion of the duodenum. - No specimens collected. Recommendation: - Return [facility] to [facility] for [facility] care. - Resume regular diet. - Continue present medications. Procedure Code(s): --- Professional --- 88514, Esophagogastroduodenoscopy, flexible, transoral; diagnostic, including collection of specimen(s) by brushing or washing, when performed (separate procedure) CPT copyright 2021 [employer]. All rights reserved. The codes documented in this report are preliminary and upon music therapy specialist review may be revised to meet current compliance requirements. Bairon Montague DO 06/10/2023 9:34:15 PM This report has been signed electronically. Number of Addenda: 0 Note Initiated On: 06/10/2023 9:15 PM
--- NOTE | 2023-06-10 21:34 | OP.CCLET_ITS ---
06/10/2023 Daisha Ramirez [address] [place] [address] Re : Upper GI endoscopy procedure for Ivanna Shree Dear Dr. Ramirez This procedure was performed on Saturday, June 10, 2023. My impressions and recommendations are as follows: Impressions : - Normal esophagus. - Hiatal hernia. - Normal stomach. - Normal third portion of the duodenum. - No specimens collected. Recommendations : - Return [facility] to [facility] for ongoing care. - Resume regular diet. - Continue present medications. My findings are described in the full procedure note, which is enclosed. If I can be of further assistance, please feel free to contact me at . Sincerely, Bairon Montague, 06/10/2023 9:34:15 PM This report has been signed electronically.
[2023-06-10] MEDS: Metoprolol Tartrate 50 MG Tablet PO (23:54)
[2023-06-10] MEDS: Ezetimibe 10 MG Tablet PO (23:58)
[2023-06-11] VITALS: BP 116/47; PULSE 87; RESP 16; TEMP 36.6; O2SAT 92
[2023-06-11 02:00] VITALS: BP 114/50; PULSE 74; RESP 16; TEMP 36.6; O2SAT 96
[2023-06-11 06:09] LABS: Absolute Lymphocyte Count 0.97 X10^3/uL (0.83-4.51); Absolute Neutrophil Count 6.5 X10^3/uL (2.0-7.7); Basophil# 0.07 X10^3/uL; Basophil% 0.8 % (0-1); Eosinophil# 0.33 X10^3/uL; Eosinophils% 3.7 % (0-5); Hematocrit 33.8 % (37-47); Hemoglobin 9.7 g/dL (12.0-15.0); Lymphocyte # 0.97 X10^3/ul (0.83-4.51); Lymphocyte % 10.9 % (19-41); Mean Corp Hgb Conc 28.7 g/dL (32-36); Mean Corpuscular Hgb 22.8 pg (27.0-32.0); Mean Corpuscular Volume 79.3 fL (81-99); Mean Platelet Vol. 9.7 fl (6.2-12.0); Monocyte# 0.97 X10^3/uL; Monocyte% 10.9 % (0-10); NRBC Flagged by Analyzer 0 % (0-5); Neutrophil # 6.54 X10^3/uL (2.7-7.7); Neutrophil % 73.4 % (47-70); Platelet Count 250 K/mm3 (150-450); RBC Distribution Width CV 19.9 % (11.6-14.6); RBC Distribution Width SD 56.5 fl (35.1-43.9); Red Blood Count 4.26 M/mm3 (4.2-5.4); White Blood Count 8.9 K/mm3 (4.4-11.0)
[2023-06-11 06:51] LABS: ALB/GLOB Ratio 1.1 RATIO (0.9-2.4); AST(SGOT) 20 U/L (15-37); Alanine Aminotransfer ALT/SGPT 14 U/L (13-56); Albumin, Serum 3.2 g/dL (3.2-5.0); Alkaline Phosphatase 62 U/L (45-117); Anion Gap 5 (5-15); BUN 24 mg/dL (7-18); Calcium,Total 8.7 mg/dL (8.5-10.1); Chloride 99 mmol/L (98-107); EST Glomerular Filtration Rate 35 mL/min (>60); Est Glom Filt Rate - Afr Amer 43 mL/min (>60); Estimated Creatinine Clearance 26.65 ml/min; Glucose 72 mg/dL (74-106); Potassium 3.2 mmol/L (3.5-5.1); Protein, Total 6.2 g/dL (6.4-8.2); Sodium Level 141 mmol/L (136-145)
--- NOTE | 2023-06-11 08:03 | PN.HOSP_ITS ---
Reason for Visit Reason for Visit: Diagnoses Anemia, unspecified (06/09/23) Gastrointestinal hemorrhage, unspecified (06/09/23) Subjective Subjective No bleeding. Feeling well. Anxious to go home. Objective Data Objective Data Vital Signs: Vital Signs Temp Pulse Resp BP Pulse Ox O2 Del Method 36.6 C 74 16 114/50 L 96 Room Air 06/11/23 02:00 06/11/23 02:00 06/11/23 02:00 06/11/23 02:00 06/11/23 02:00 06/11/23 05:26 Oxygen Delivery Method Room Air Weight: 70.8 kg Body Mass Index (BMI) 28.5 Intake & Output: Intake and Output for Last 24 Hours 06/09/23 06/10/23 06/11/23 23:59 23:59 23:59 Intake Total 352 / 402 196.90 / 206.90 120 / 120 Output Total 150 / 775 2075 / 2075 250 / 250 Balance 202 / -373 -1878.10 / -1868.10 -130 / -130 Lab / Micro Data 06/11/23 05:23 06/11/23 05:23 Labs: Laboratory Results - last 24 hr 06/09/23 13:45: Crossmatch See Detail 06/10/23 11:20: Hgb 9.7 L, Hct 33.3 L 06/10/23 17:05: Hgb 10.8 L, Hct 37.0 06/11/23 05:23: WBC 8.9, RBC 4.26, Hgb 9.7 L, Hct 33.8 L, MCV 79.3 L, MCH 22.8 L , MCHC 28.7 L, RDW Std Deviation 56.5 H, RDW Coeff of Velasquez 19.9 H, Plt Count 250, MPV 9.7, Immature Gran % (Auto) 0.300, Neut % (Auto) 73.4 H, Lymph % (Auto) 10.9 L, [place] % (Auto) 10.9 H, Eos % (Auto) 3.7, Baso % (Auto) 0.8, Absolute Neuts (auto) 6.5, Absolute Lymphs (auto) 0.97, Nucleated RBC % 0, Sodium 141, Potassium 3.2 L, Chloride 99, Carbon Dioxide 37.0 H, Anion Gap 5, BUN 24 H, Creatinine 1.50 H, Estim Creat Clear Calc 26.65, Est GFR (MDRD) Af Amer 43 L, Est GFR (MDRD) Non-Af 35 L, BUN/Creatinine Ratio 16.0, Glucose 72 L, Calcium 8.7, Total Bilirubin 3.50 H, AST 20, ALT 14, Alkaline Phosphatase 62, Total Protein 6.2 L, Albumin 3.2, Globulin 3.0, Albumin/Globulin Ratio 1.1 Micro: Microbiology 06/09/23 14:03 Stool Stool Occult Blood (ORLY) - Final Occult Blood Positive Radiography Diagnostic Testing: Radiology Impression Echocardiogram 06/09/23 17:11 Interpretation Summary The estimated ejection fraction is 45 %. Unable to assess diastolic dysfunction. Mild (1+) mitral valve insufficiency. There is mild biatrial dilatation. Ordering Physician: Adrienne Bowden Referring Physician: Daisha Ramirez M.D. Performed By: Kourtney Dominguez RDCS Rhythm Strip Rhythm Strip: Sinus Rhythm Rate: 73 Ectopy: None Physical Exam Const alert and no apparent distress HEENT head/scalp atraumatic and moist oral mucous membranes Resp normal respiratory effort, no retractions, no use of accessory muscles and clear to auscultation bilaterally Cardio regular rate, regular rhythm, S1 normal heart sound and S2 normal heart sound GI normal to inspection, nondistended, normoactive bowel sounds Assessment & Plan Assessment/Plan (1) Acute GI bleeding: (2) Anemia: PLAN: Plan GIB * Patient with history of multiple gastric, duodenal, and further small bowel AVMs. Likely related to aortic valve disease. Had TAVR in November 2021 * EGD 06/10: unremarkable. * Cannot rule out source of bleeding at this time, but if present, would likely be slow. * Follow up with GI as outpt. * Resume clopidogrel in 3 days. 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 Sodium restricted . Daily weights. Accurate I's and O's * Echocardiogram shows an EF of 45%. Mild mitral valve insufficiency. Mild biatrial dilation. Last echocardiogram here was done in 2020 which was prior to her TAVR in 2021 which showed an EF of 55 to 60%, mild concentric LVH, moderate pulmonary hypertension with a right ventricular systolic pressure of 55 mmHg and severe aortic valve stenosis * Patient currently on room air. Chest x-ray had some small pleural effusions. * DC furosemide drip and change back to p.o. * Follow up with cardiology as outpt. Hyperbilirubinemia * Suspect related to passive congestion from acute acute on chronic heart failure Chronic conditions: * CAD/aortic valve stenosis/hyperlipidemia/hypertension: Patient is status post CABG and aortic valve in 2014. Continue home niacin. Continue home Zetia. Continue home metoprolol. TAVR in November 2021. Will hold home aspirin and Plavix for now due to GI bleeding. * History of gastritis/history of duodenal ulcer/GERD * History of DM-2-It appears the patient is not on any medications for this. Nonfasting blood sugar on admission was 128. Most recent A1c was 5.1 on 11/10/2021 which is not consistent with diabetes. * Psoriasis-Continue topicals * History of tobacco [id number] acute issues DVT prophylaxis -SCDs -Hold chemoprophylaxis with anemia CODE STATUS -DNR CCA with no intubation
[2023-06-11 08:13] VITALS: O2SAT 98
[2023-06-11 09:41] VITALS: BP 137/51; PULSE 81; RESP 16; TEMP 36.4; O2SAT 98
[2023-06-11] MEDS: Potassium Chloride Oral Tablet 20 MEQ 40 MEQ PO (09:45)
[2023-06-11 09:46] VITALS: BP 137/51; PULSE 81
[2023-06-11] MEDS: Metoprolol Tartrate 50 MG Tablet PO (09:46)
[2023-06-11] MEDS: Furosemide 40 MG Tablet PO (09:46)
[2023-06-11] MEDS: Pantoprazole Sodium 40 MG Tablet PO (09:46)
--- NOTE | 2023-06-11 10:55 | DS.PCM_ITS ---
Providers Date of Admission: 06/09/23 Primary Care Physician: Dr. Daisha Ramirez, Consultations 06/09/23 17:11 Consult: Gastroenterology Routine Consulting Provider: [facility] Reason for Consult: GI bleed EMERGENT Consult: No MD Notified: Yes Date Notified: 06/09/23 Time Notified: 15:52 Method of Notification: Verbal Reason For Visit: GIB ANEMIA Diagnosis Discharge Diagnosis (1) Acute GI bleeding: Status: Acute Code(s): K92.2 - Gastrointestinal hemorrhage, unspecified (2) Anemia: Status: Acute Code(s): D64.9 - Anemia, unspecified Plan GIB * Patient with history of multiple gastric, duodenal, and further small bowel AVMs. Likely related to aortic valve disease. Had TAVR in November 2021 * EGD 06/10: unremarkable. * Cannot rule out source of bleeding at this time, but if present, would likely be slow. * Follow up with GI as outpt. * Resume clopidogrel in 3 days. 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 Sodium restricted . Daily weights. Accurate I's and O's * Echocardiogram shows an EF of 45%. Mild mitral valve insufficiency. Mild biatrial dilation. Last echocardiogram here was done in 2020 which was prior to her TAVR in 2021 which showed an EF of 55 to 60%, mild concentric LVH, moderate pulmonary hypertension with a right ventricular systolic pressure of 55 mmHg and severe aortic valve stenosis * Patient currently on room air. Chest x-ray had some small pleural effusions. * DC furosemide drip and change back to p.o. * Follow up with cardiology as outpt. Hyperbilirubinemia * Suspect related to passive congestion from acute acute on chronic heart failure Chronic conditions: * CAD/aortic valve stenosis/hyperlipidemia/hypertension: Patient is status post CABG and aortic valve in 2014. Continue home niacin. Continue home Zetia. Continue home metoprolol. TAVR in November 2021. Will hold home aspirin and Plavix for now due to GI bleeding. * History of gastritis/history of duodenal ulcer/GERD * History of DM-2-It appears the patient is not on any medications for this. Nonfasting blood sugar on admission was 128. Most recent A1c was 5.1 on 11/10/2021 which is not consistent with diabetes. * Psoriasis-Continue topicals * History of tobacco [id number] acute issues DVT prophylaxis -SCDs -Hold chemoprophylaxis with anemia CODE STATUS -DNR CCA with no intubation Medications at Discharge Home Medications ezetimibe 10 mg tablet 10 mg PO QHS cholesterol 09/01/13 pantoprazole 40 mg tablet,delayed release 40 mg PO DAILY gerd 09/01/13 nitroglycerin 0.4 mg sublingual tablet 0.4 mg sublingual Q5M PRN Chest Pain #25 tabs 10/05/18 niacin (inositol niacinate) 500 mg capsule 1,000 mg PO BID supplement 04/12/19 clopidogrel 75 mg tablet 75 mg PO DAILY blood thinner 04/18/21 clobetasol 0.05 % topical cream 1 applic topical PRN PSORISIS 06/09/23 metoprolol tartrate 50 mg tablet 50 mg PO Q12H 06/09/23 furosemide 40 mg tablet 40 mg PO DAILY #30 tabs 06/11/23 lisinopril 5 mg tablet 5 mg PO DAILY #30 tabs 06/11/23 potassium chloride 10 mEq tablet,extended release 10 meq PO DAILY #30 tabs 06/11/23 Weight / BMI Weight Weight: 70.8 kg Body Mass Index (BMI) 28.5 ABG / Lab / Microbiology Data 06/11/23 05:23 06/11/23 05:23 Laboratory: Laboratory Results - last 24 hr 06/09/23 13:45: Crossmatch See Detail 06/10/23 11:20: Hgb 9.7 L, Hct 33.3 L 06/10/23 17:05: Hgb 10.8 L, Hct 37.0 06/11/23 05:23: WBC 8.9, RBC 4.26, Hgb 9.7 L, Hct 33.8 L, MCV 79.3 L, MCH 22.8 L , MCHC 28.7 L, RDW Std Deviation 56.5 H, RDW Coeff of Velasquez 19.9 H, Plt Count 250, MPV 9.7, Immature Gran % (Auto) 0.300, Neut % (Auto) 73.4 H, Lymph % (Auto) 10.9 L, [place] % (Auto) 10.9 H, Eos % (Auto) 3.7, Baso % (Auto) 0.8, Absolute Neuts (auto) 6.5, Absolute Lymphs (auto) 0.97, Nucleated RBC % 0, Sodium 141, Potassium 3.2 L, Chloride 99, Carbon Dioxide 37.0 H, Anion Gap 5, BUN 24 H, Creatinine 1.50 H, Estim Creat Clear Calc 26.65, Est GFR (MDRD) Af Amer 43 L, Est GFR (MDRD) Non-Af 35 L, BUN/Creatinine Ratio 16.0, Glucose 72 L, Calcium 8.7, Total Bilirubin 3.50 H, AST 20, ALT 14, Alkaline Phosphatase 62, Total Protein 6.2 L, Albumin 3.2, Globulin 3.0, Albumin/Globulin Ratio 1.1 Microbiology: Microbiology 06/09/23 14:03 Stool Stool Occult Blood (ORLY) - Final Occult Blood Positive Radiography Diagnostic Testing: Radiology Impression Echocardiogram 06/09/23 17:11 Interpretation Summary The estimated ejection fraction is 45 %. Unable to assess diastolic dysfunction. Mild (1+) mitral valve insufficiency. There is mild biatrial dilatation. Ordering Physician: Adrienne Bowden Referring Physician: Daisha Ramirez M.D. Performed By: Kourtney Dominguez RDCS D/C Instructions Discharge Diet: Low fat / Low cholesterol, 8 Cup Fluid Restriction and 2000 mg Sodium Diet Meaningful Use Info Meaningful Use Diagnoses (Choose all that apply): None applicable Discharge Plan Admission Admit Date/Time: 06/09/23 15:56 Primary Reason for Your Visit: anemia Attending Provider: David Mcguire Primary Care Provider: Daisha Ramirez Consulting Providers: Adrienne Bowden Instructions Patient Instructions: Heart Failure Meds, Heart Failure: Tracking Your Weight, Heart Failure: Being Active, Heart Failure Make Changes Diet, Heart Failure: Medications to Help Your Heart Additional Instructions / Restrictions: You had anemia. Your EGD was normal. Severe stomach and first part of small bowel and esophagus were normal. Possibly may have some bleeding source elsewhere but that was not identified. He will follow-up Dr. Montague for evaluation down the road. In the meantime, hold off on your clopidogrel for the next few days. Would like for you to follow-up with your primary care provider to have your blood count checked periodically. He also had heart failure. We did treat you with furosemide he did well. We will continue with furosemide. I want you to follow-up with your wood heel back liner for further evaluation and monitoring in the next month or 2. Discharge Orders/Prescriptions Prescriptions: New furosemide 40 mg Tablet 40 mg PO DAILY Qty: 30 0RF lisinopril 5 mg tablet 5 mg PO DAILY Qty: 30 0RF potassium chloride 10 mEq tablet extended release 10 meq PO DAILY Qty: 30 0RF Continued nitroglycerin 0.4 mg tablet, sublingual 0.4 mg SUBLINGUAL Q5M PRN (Reason: Chest Pain) Qty: 25 1RF pantoprazole 40 MG tablet 40 mg PO DAILY Patient Comments: stomach acid ezetimibe 10 MG tablet 10 mg PO QHS Patient Comments: cholesterol niacin (inositol niacinate) 500 MG capsule 1,000 mg PO BID clobetasol 0.05 % cream 1 applic TOPICAL PRN metoprolol tartrate 50 mg tablet 50 mg PO Q12H Patient Comments: TAKE 1 TABLET BY MOUTH TWICE A DAY Held clopidogrel 75 mg tablet 75 mg PO DAILY Hold Instructions: Resume on 06/14/23. Discontinued furosemide [Lasix] 20 mg Tablet 20 mg PO DAILY PRN (Reason: FLUID) Patient Comments: TOOK 40MG SAT, SUN, AND MON PER PCP INSTRUCTIONS THEN STOPPED AFTER SEEING DR THOMSON PER HIS INSTRUCTION methylprednisolone 4 mg tablets,dose pack 4 mg PO UD Patient Comments: TAKE BY MOUTH DIRECTED ON PACKAGE. HAS NOT STARTED, BUT HAS MEDICATION AT HOME Referrals / Follow Up: [facility] [Provider Group] - Within 3 Months Daisha Ramirez DO [Primary Care Provider] - Within 2 Weeks Disposition Disposition (needs filled in before D/C Order can be placed): Home, Self Care Charges/Coding Visit Charges Inpatient E&M: 46124 Disch Hosp >30min
--- NOTE | 2023-06-11 13:45 | NURSING ---
Message left for patient to not take lisinopril due to allergy per Dr. Mcguire and if any questions to call the hospital.
== END 2023-06-11 13:39 | disposition home or self-care (01) | DRG 377 ==
LOC: ED 15:22 → PCU 16:40
PROVIDERS: Internal Medicine Gastroenterology; Nurse Practitioner; Admitting Provider Internal Medicine; Emergency Provider Emergency Medicine; PCP Internal Medicine
PROC: 0DJ08ZZ Inspection of Upper Intestinal Tract, Via Natural or Artificial Opening Endoscopic (ICD-10-PCS; CPT 43235; principal; 2023-06-10 19:20)
DX: K92.2 Gastrointestinal hemorrhage, unspecified (principal); I50.33 Acute on chronic diastolic (congestive) heart failure; I27.20 Pulmonary hypertension, unspecified; E11.9 Type 2 diabetes mellitus without complications; D64.9 Anemia, unspecified; E78.5 Hyperlipidemia, unspecified; I11.0 Hypertensive heart disease with heart failure; I35.0 Nonrheumatic aortic (valve) stenosis; I44.7 Left bundle-branch block, unspecified; L40.9 Psoriasis, unspecified; I25.10 Atherosclerotic heart disease of native coronary artery without angina pectoris; K44.9 Diaphragmatic hernia without obstruction or gangrene; E80.7 Disorder of bilirubin metabolism, unspecified; Z66 Do not resuscitate; Z79.02 Long term (current) use of antithrombotics/antiplatelets; Z87.891 Personal history of nicotine dependence
CPT/HCPCS: 36415; 71045; 80048; 80053; 80061; 81001; 82043; 82274; 82570; 83690; 83735; 83880; 84100; 84443; 84484; 85014; 85018; 85025; 86850; 86900; 86901; 86920; 86921; 86922; 93005; 93306; 97162; 97165; 97802; 99285; J7040; J7120; P9016; A4216; J1940

== ENCOUNTER → 2024-02-27 | Outpatient (CLI) | payer MEDICARE, SELFPAY ==
[2024-02-27 15:54] LABS: Absolute Lymphocyte Count 0.98 X10^3/uL (0.83-4.51); Absolute Neutrophil Count 6.3 X10^3/uL (2.0-7.7); Basophil# 0.07 X10^3/uL; Basophil% 0.8 % (0-1); Eosinophil# 0.28 X10^3/uL; Eosinophils% 3.4 % (0-5); Hematocrit 29.1 % (37-47); Hemoglobin 7.9 g/dL (12.0-15.0); Lymphocyte # 0.98 X10^3/ul (0.83-4.51); Lymphocyte % 11.7 % (19-41); Mean Corp Hgb Conc 27.1 g/dL (32-36); Mean Corpuscular Hgb 22.4 pg (27.0-32.0); Mean Corpuscular Volume 82.7 fL (81-99); Mean Platelet Vol. 9.4 fl (6.2-12.0); Monocyte# 0.69 X10^3/uL; Monocyte% 8.3 % (0-10); NRBC Flagged by Analyzer 0 % (0-5); Neutrophil # 6.29 X10^3/uL (2.7-7.7); Neutrophil % 75.3 % (47-70); Platelet Count 283 K/mm3 (150-450); RBC Distribution Width SD 48.4 fl (35.1-43.9); Red Blood Count 3.52 M/mm3 (4.2-5.4); White Blood Count 8.4 K/mm3 (4.4-11.0)
[2024-02-27 16:14] LABS: International Normalized Ratio 1.3; Prothrombin Time (Protime)PT. 15.7 SECONDS (11.7-14.9)
[2024-02-27 16:17] LABS: Iron 21 ug/dL (50-170); Iron Binding Capacity,Total 581 ug/dL (250-450); PERCENT IRON SATURATION 3.6 % (15.0-55.0)
== END | disposition home or self-care (01) ==
LOC: LAB 14:56
PROVIDERS: PCP Internal Medicine
DX: D50.0 Iron deficiency anemia secondary to blood loss (chronic) (principal)
CPT/HCPCS: 36415; 83540; 83550; 85025; 85610

== ENCOUNTER → 2024-02-28 | Outpatient (CLI) | payer MEDICARE, SELFPAY | END | disposition home or self-care (01) | LOC: MTLAB 09:59 | PROVIDERS: PCP Internal Medicine | DX: D50.0 Iron deficiency anemia secondary to blood loss (chronic) (principal) | CPT/HCPCS: 82274 ==

== ENCOUNTER 2024-03-05 18:38 | Emergency (ER) | payer MEDICARE, SELFPAY ==
[2024-03-05 18:40] VITALS: BP 143/66; PULSE 87; RESP 17; TEMP 36.8; O2SAT 98; BMI 26.7
[2024-03-05 18:56] VITALS: BMI 26.7
[2024-03-05 19:18] LABS: Bedside Glucose 125 mg/dL (74-106)
[2024-03-05 19:24] LABS: Absolute Lymphocyte Count 1.11 X10^3/uL (0.83-4.51); Absolute Neutrophil Count 5.6 X10^3/uL (2.0-7.7); Basophil# 0.06 X10^3/uL; Basophil% 0.8 % (0-1); Eosinophil# 0.28 X10^3/uL; Eosinophils% 3.5 % (0-5); Hematocrit 29.8 % (37-47); Hemoglobin 8.4 g/dL (12.0-15.0); Lymphocyte # 1.11 X10^3/ul (0.83-4.51); Mean Corp Hgb Conc 28.2 g/dL (32-36); Mean Corpuscular Hgb 22.7 pg (27.0-32.0); Mean Corpuscular Volume 80.5 fL (81-99); Mean Platelet Vol. 9.6 fl (6.2-12.0); Monocyte# 0.88 X10^3/uL; Monocyte% 11.1 % (0-10); NRBC Flagged by Analyzer 0 % (0-5); Neutrophil # 5.55 X10^3/uL (2.7-7.7); Neutrophil % 70.1 % (47-70); Platelet Count 284 K/mm3 (150-450); RBC Distribution Width CV 15.9 % (11.6-14.6); RBC Distribution Width SD 47.3 fl (35.1-43.9); White Blood Count 7.9 K/mm3 (4.4-11.0)
[2024-03-05 19:43] LABS: Anion Gap 6 (5-15); BUN 22 mg/dL (7-18); BUN/Creat Ratio 15.9 RATIO (10-20); Calcium,Total 8.9 mg/dL (8.5-10.1); Chloride 101 mmol/L (98-107); Creatinine, Serum 1.38 mg/dL (0.55-1.02); EST Glomerular Filtration Rate 39 mL/min (>60); Est Glom Filt Rate - Afr Amer 47 mL/min (>60); Estimated Creatinine Clearance 27.61 ml/min; Glucose 117 mg/dL (74-106); Sodium Level 138 mmol/L (136-145); Troponin-I HS (w/2H Reflex) 31 pg/mL (3.0-54.0)
[2024-03-05 19:51] LABS: BNP,B-Type NATRIURETIC PEPTIDE 1034.7 pg/mL (0-100)
[2024-03-05 20:10] VITALS: BP 157/61; PULSE 87; RESP 16; O2SAT 100
[2024-03-05 21:18] LABS: Reflex Troponin-HS? (from REC) Y
[2024-03-05 22:00] VITALS: BP 102/61; PULSE 85; RESP 16; O2SAT 93
[2024-03-05 22:09] LABS: Troponin-I HS 42 pg/mL (3.0-54.0)
== END 2024-03-05 22:58 | disposition home or self-care (01) ==
PROVIDERS: Emergency Provider Emergency Medicine; PCP Internal Medicine; Visit Provider Emergency Medicine
DX: G43.909 Migraine, unspecified, not intractable, without status migrainosus (principal); I11.0 Hypertensive heart disease with heart failure; I50.9 Heart failure, unspecified; I48.91 Unspecified atrial fibrillation; E11.51 Type 2 diabetes mellitus with diabetic peripheral angiopathy without gangrene; Z87.891 Personal history of nicotine dependence; E78.00 Pure hypercholesterolemia, unspecified; Z95.2 Presence of prosthetic heart valve; R07.9 Chest pain, unspecified; D64.9 Anemia, unspecified; I25.10 Atherosclerotic heart disease of native coronary artery without angina pectoris; R06.00 Dyspnea, unspecified; I44.0 Atrioventricular block, first degree; Z95.1 Presence of aortocoronary bypass graft; Z86.73 Personal history of transient ischemic attack (TIA), and cerebral infarction without residual deficits; G47.33 Obstructive sleep apnea (adult) (pediatric); Z90.49 Acquired absence of other specified parts of digestive tract; Z98.51 Tubal ligation status
CPT/HCPCS: 71046; 80048; 82962; 83880; 84484; 85025; 93005; 99285; A4216

== ENCOUNTER 2024-03-07 13:23 | Day surgery (SDC) | payer MEDICARE, SELFPAY ==
[2024-03-07] VITALS (7 sets, daily range): BP systolic 88–146; BP diastolic 36–67; PULSE 61–87; RESP 16–18; TEMP 36.4–36.5; O2SAT 95–98; BMI 24.2
--- NOTE | 2024-03-07 14:38 | HP.PCM_ITS ---
History and Physical Date of Admission: 03/07/24 Chief Complaint: Low Hgb Details: SAMMY SOLOMON, is a 83 F who presents to the office today for FU with complaints of acute on chronic blood loss anemia. She was last hospitalized at [facility] in May of this year, received a transfusion of PRBCs and had a negative EGD with push endoscopy at that time. She was sent here today by her PCP for down-trending hemoglobin levels. 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 She denies dark tarry stools and sam bleeding per rectum. She reports shortness of breath with exertion. She reports spontaneous epistaxis x1 episode that lasted maybe five minutes and stopped on its own last month. She's on Plavix for her aortic valve replacement and reports easy bruising. She denies feeling lightheaded or dizzy. ROS Const Constitutional: Positive for fatigue and weakness; No chills, fever(s) or weight change Eyes Eyes: No change in vision ENT ENT: No abnormal hearing or difficulty swallowing Resp Respiratory: No cough Cardio Cardiology: Positive for dyspnea on exertion and palpitations; No chest pain at rest, chest pain with exertion or leg pain with exertion Gastro GI: No abdominal pain, belching, bloating, change in bowel habits, change in stool character, coffee ground emesis, constipation, cramping, diarrhea, heartburn, difficulty swallowing, feeling full early, excessive flatus, incontinent of stools, Vomiting blood/hematemesis, Blood in stool, loose stools, Black,tarry stools, nausea/dyspepsia, pain with swallowing, vomiting or other Genitourinary-Female: No difficulty urinating Musc Musculoskeletal: Positive for abnormal gait, joint pain, back pain, muscle cramps and muscle weakness; No leg pain with exertion Skin Skin: No yellowing of the eye or itchy eyes Neuro Neurology: Positive for abnormal gait and weakness; No abnormal hearing Psych Psychiatric: No anxiety and No depression Endo Endocrine: Positive for fatigue; No cold intolerance, heat intolerance or weight change Aller/Imm Allergy/Immunologic: No food intolerance or itchy eyes Oscar/Lymp Hematologic/Lymphatic: Positive for easy bruising; No easy bleeding Exam Const General: cooperative Nutritional Appearance: average body habitus Orientation: alert [facility] Head: normal to inspection Ears: hearing grossly normal bilaterally Nose: external nose normal Face and sinus: normal facial exam and face symmetric Mouth: 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) Eyes General: appearance normal, both eyes and all related structures Sclera: sclerae normal Neck Neck: normal visual inspection and full ROM Neck mass: No Chest Chest palpation & inspection: normal inspection of the chest Resp Effort & Inspection: normal respiratory effort, able to speak in complete sentences and symmetric chest movement GI Inspection: normal to inspection Auscultation: normal bowel sounds Palpation: soft Skin General: ecchymosis Lesions: no lesions Rashes: no rashes Wounds: no wounds Neuro General: patient alert, patient awake, patient oriented x3 and moves all extremities Cognition: normal cognition Speech: speech normal Gait: normal gait Extrem General: full ROM Psych Appearance: well kempt Mental Status: mental status grossly normal Mood: congruent mood Affect: normal affect Speech and Movement: speech and movement normal Attitude: cooperative Thought Process: normal Assessment and Plan Assessment and Plan (1) Blood loss anemia: Status: Acute Comment: Acute on chronic Orders: Orders CTA Abd/Pelvis W/WO Contrast Today D50.0 - Iron deficiency anemia secondary to blood loss (chronic) CBC W/Diff, Automated Today D64.9 - Anemia, unspecified Prothrombin Time w/INR Today D50.0 - Iron deficiency anemia secondary to blood loss (chronic) Stool Occult Blood iFOB Today D50.0 - Iron deficiency anemia secondary to blood loss (chronic) Iron+Iron Binding Capacity Today D50.0 - Iron deficiency anemia secondary to blood loss (chronic) Plan Labs: 10.15.24 hgb 8.4 2.17.24 hgb 9.7, MCV 79.3 83y F presents for consultation of anemia with PMH of multiple gastric, duodenal, and further small bowel AVMs. Likely related to aortic valve disease. Had TAVR . Admitted to [facility] for acute GIB with occult positive stools-->EGD unremarkable at that time for cause of bleeding. Hgb had dropped to 6.9 that admission, transfused 2u PRBCs and hgb up to 9.7 at discharge. Clopidogrel was resumed post discharge. Discussed plans with her at length. She is agreeable to upper endoscopy. She adamantly is refusing lower endoscopy, stating, I don't see blood. My stool is not dark or tarry. I have a BM like clockwork, never miss a day. I don't go more than once a day. I've never had a problem below. I have too much going on while I'm trying to sell my house to deal with prepping for a lower scope. I don't want to do that. Maybe if we can't find the bleeding on the upper testing, and I sell my house, then I'll think about it. * blood for CBC, PT/INR, iron studies * stool for OB * Abd/pelvis CTa for active bleeding * EGD w/push for upper GIB * call results * office follow-up I have examined the patient and the H&P has been reviewed. There are no clinical changes since date of exam.
--- NOTE | 2024-03-07 15:08 | OP.EGD_ITS ---
Patient Name: Ivanna Swann Procedure Date: 03/07/2024 2:44 PM Date of : 1940 Age: 83 Procedure: Upper GI endoscopy Indications: Acute post hemorrhagic anemia, Iron deficiency anemia secondary to chronic blood loss, Iron deficiency anemia, Melena Providers: Bairon Montague DO Referring MD: Daisha Ramirez Medicines: Monitored Anesthesia Care Patient Profile: This is an 83 year old female. Refer to note in patient chart for documentation of history and physical. Patient has symptoms. Complications: No immediate complications. Procedure: Pre-Anesthesia Assessment: - Prior to the procedure, a History and Physical was performed, and patient medications and allergies were reviewed. The patient is competent. The risks and benefits of the procedure and the sedation options and risks were discussed with the patient. All questions were answered and informed consent was obtained. Patient identification and proposed procedure were verified by the physician in the pre-procedure area. Mental Status Examination: alert and oriented. Airway Examination: normal oropharyngeal airway and neck mobility. Respiratory Examination: clear to auscultation. CV Examination: normal. Prophylactic Antibiotics: The patient does not require prophylactic antibiotics. Prior Anticoagulants: The patient has taken no anticoagulant or antiplatelet agents except for NSAID medication. ASA Grade Assessment: III - A patient with severe systemic disease. After reviewing the risks and benefits, the patient was deemed in satisfactory condition to undergo the procedure. The anesthesia plan was to use monitored anesthesia care (MAC). Immediately prior to administration of medications, the patient was re-assessed for adequacy to receive sedatives. The heart rate, respiratory rate, oxygen saturations, blood pressure, adequacy of pulmonary ventilation, and response to care were monitored throughout the procedure. The physical status of the patient was re-assessed after the procedure. After obtaining informed consent, the endoscope was passed under direct vision. Throughout the procedure, the patient's blood pressure, pulse, and oxygen saturations were monitored continuously. The Colonoscope was introduced through the mouth, and advanced to the jejunum. The upper GI endoscopy was accomplished without difficulty. The patient tolerated the procedure well. Scope In: 2:52:54 PM Scope Out: 3:03:02 PM Total Procedure Duration Time 0 hours 10 minutes 8 seconds Findings: The examined esophagus was normal. A medium-sized hiatal hernia was present. The cardia and gastric fundus were normal on retroflexion. No gross lesions were noted in the fourth portion of the duodenum. Three 5 mm angiodysplastic lesions with bleeding were found in the jejunum. Coagulation for hemostasis using heater probe was successful. Estimated blood loss was minimal. Impression: - Normal esophagus. - Medium-sized hiatal hernia. - No gross lesions in the fourth portion of the duodenum. 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 Treated with a heater probe. - No specimens collected. Recommendation: - Discharge patient to home. - Resume previous diet. - Continue present medications. Procedure Code(s): --- Professional --- 65986, Esophagogastroduodenoscopy, flexible, transoral; with control of bleeding, any method CPT copyright 2021 [employer]. All rights reserved. The codes documented in this report are preliminary and upon manager hiv review may be revised to meet current compliance requirements. Bairon Montague DO 03/07/2024 3:07:56 PM This report has been signed electronically. Number of Addenda: 0 Note Initiated On: 03/07/2024 2:44 PM
--- NOTE | 2024-03-07 15:08 | OP.CCLET_ITS ---
03/07/2024 Daisha Ramirez [address] [place] [address] Re : Upper GI endoscopy procedure for Ivanna Shree Dear Dr. Ramirez This procedure was performed on Thursday, March 07, 2024. My impressions and recommendations are as follows: Impressions : - Normal esophagus. - Medium-sized hiatal hernia. - No gross lesions in the fourth portion of the duodenum. 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 Treated with a heater probe. - No specimens collected. Recommendations : - Discharge patient to home. - Resume previous diet. - Continue present medications. My findings are described in the full procedure note, which is enclosed. If I can be of further assistance, please feel free to contact me at . Sincerely, Bairon Montague, 03/07/2024 3:07:56 PM This report has been signed electronically.
--- NOTE | 2024-03-07 15:15 | PCM.POST.ANE ---
Anesthesia: Postop Eval I Current Vital Signs Temperature: 97.7 F Pulse Rate: 61 Blood Pressure: 103/67 Respiratory Rate: 18 Pulse Ox: 97 Oxygen Delivery Method: Room Air Assessment Airway patent: Yes Spontaneous unlabored respirations: Yes Mental status: Asleep nausea: No Vomiting: No Anesthesia Complication: No Fluid Hydration Crystalloid volume administer (ml): 30 Total IV fluid infused: 30 Progress Note Anesthesia document: Postop Eval 1 completed: Yes
--- NOTE | 2024-03-07 17:07 | PCM.POSTANE2 ---
Anesthesia Postop Eval I Sum Postop Eval Completion status Anesthesia document: Postop Eval 1 completed: Yes Anesthesia Postop Eval I Summary Anesthesia Postop Eval I Summary: Anesthesia Postop Eval I: Assessment Summary Airway patent Yes 03/07/24 15:16 [email or web address] Spontaneous unlabored Yes 03/07/24 15:16 [email or web address] respirations Mental status Asleep 03/07/24 15:16 [email or web address] nausea No 03/07/24 15:16 [email or web address] Vomiting No 03/07/24 15:16 [email or web address] Anesthesia Postop Eval I: Fluid Summary Crystalloid volume administer 30 03/07/24 15:16 [email or web address] (ml) Colloids volume administered ( ml) Blood Product volume administered (ml) Total IV fluid infused 30 03/07/24 15:16 [email or web address] Anesthesia Postop Eval I: Summary Notes Anesthesia Complication No 03/07/24 15:16 [email or web address] Anesthesia Complication Comment: Post-operative progress note Anesthesia: Postop Eval II Evaluation Mental status: Awake and Calm Pain Level: 0 nausea: No Vomiting: No Complications Anesthesia Complication: No
== END 2024-03-07 16:12 | disposition home or self-care (01) ==
LOC: EN 13:24 → AC 13:26
PROVIDERS: PCP Internal Medicine; Referring Provider Internal Medicine; Visit Provider Internal Medicine Gastroenterology
PROC: 0DJ08ZZ Inspection of Upper Intestinal Tract, Via Natural or Artificial Opening Endoscopic (ICD-10-PCS; CPT 43235; principal; 2024-03-07 14:25)
DX: D50.0 Iron deficiency anemia secondary to blood loss (chronic) (principal); K44.9 Diaphragmatic hernia without obstruction or gangrene; Z95.2 Presence of prosthetic heart valve; Z79.02 Long term (current) use of antithrombotics/antiplatelets; K31.811 Angiodysplasia of stomach and duodenum with bleeding
CPT/HCPCS: 43255; A4216; J2405

== ENCOUNTER 2024-03-08 10:57 | Emergency (ER) | payer MEDICARE, SELFPAY ==
[2024-03-08 10:58] VITALS: BP 134/72; PULSE 74; RESP 18; TEMP 36.7; O2SAT 97; BMI 26.2
[2024-03-08 11:30] VITALS: BP 135/68; BP 139/51; BP 150/62; PULSE 78; PULSE 79
--- NOTE | 2024-03-08 11:30 | EKG12_ITS ---
Test Reason : DIZZY Blood Pressure : */* mmHG Vent. Rate : 71 BPM Atrial Rate : 71 BPM P-R Int : 208 ms QRS Dur : 160 ms QT Int : 446 ms P-R-T Axes : 67 -34 125 degrees QTcB Int : 484 ms Normal sinus rhythm Left axis deviation Left bundle branch block Abnormal ECG Confirmed by CHRISTINA DELGADILLO, JANE ([id number]), editor book EN HERNANDEZ ([id number]) on 03/13/2024 7:48:49 AM Referred By: Confirmed By: JANE VASQUEZ MD
[2024-03-08 12:02] LABS: Absolute Lymphocyte Count 1.01 X10^3/uL (0.83-4.51); Absolute Neutrophil Count 5.6 X10^3/uL (2.0-7.7); Basophil# 0.07 X10^3/uL; Basophil% 0.9 % (0-1); Eosinophil# 0.24 X10^3/uL; Eosinophils% 3.1 % (0-5); Hematocrit 31.1 % (37-47); Hemoglobin 8.7 g/dL (12.0-15.0); Lymphocyte # 1.01 X10^3/ul (0.83-4.51); Lymphocyte % 13.1 % (19-41); Mean Corpuscular Hgb 22.8 pg (27.0-32.0); Mean Corpuscular Volume 81.6 fL (81-99); Monocyte# 0.77 X10^3/uL; NRBC Flagged by Analyzer 0 % (0-5); Neutrophil # 5.63 X10^3/uL (2.7-7.7); Neutrophil % 72.8 % (47-70); Platelet Count 300 K/mm3 (150-450); RBC Distribution Width CV 16.1 % (11.6-14.6); RBC Distribution Width SD 47.7 fl (35.1-43.9); Red Blood Count 3.81 M/mm3 (4.2-5.4); White Blood Count 7.7 K/mm3 (4.4-11.0)
[2024-03-08 12:20] LABS: AST(SGOT) 16 U/L (15-37); Alanine Aminotransfer ALT/SGPT 13 U/L (13-56); Albumin, Serum 3.8 g/dL (3.2-5.0); Alkaline Phosphatase 79 U/L (45-117); Anion Gap 7 (5-15); BUN 28 mg/dL (7-18); BUN/Creat Ratio 17.2 RATIO (10-20); Calcium,Total 8.9 mg/dL (8.5-10.1); Chloride 100 mmol/L (98-107); Creatinine, Serum 1.63 mg/dL (0.55-1.02); EST Glomerular Filtration Rate 32 mL/min (>60); Est Glom Filt Rate - Afr Amer 39 mL/min (>60); Estimated Creatinine Clearance 23.14 ml/min; Globulin 3.8 g/dL (2.2-4.2); Glucose 96 mg/dL (74-106); Potassium 3.6 mmol/L (3.5-5.1); Protein, Total 7.6 g/dL (6.4-8.2); Sodium Level 138 mmol/L (136-145)
[2024-03-08 12:55] LABS: Red Blood Cells-Urine 0 SEEN /hpf (0-5)
[2024-03-08 12:57] VITALS: BP 130/53; PULSE 83; RESP 17; O2SAT 94
[2024-03-08 12:57] LABS: Color, Urine Yellow (Yellow); Glucose, Dipstick Normal (Normal); Ketone-Dipstick Negative (Negative); Leukocyte Esterase-Dipstick 500 /ul (Negative); Nitrite-Dipstick Negative (Negative); Occult Blood-Urine Negative /ul (Negative); Protein-Dipstick 15 mg/dl (Negative); Specific Gravity, Urine 1.015 (1.002-1.030); Urine Bilirubin Dipstick Negative (Negative); Urine Clarity Sl. Cloudy (Clear); Urine Urobilinogen Normal (Normal)
--- NOTE | 2024-03-08 13:08 | EDS_ITS ---
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 Montague. Patient presents today for follow Ard[place] because of the procedure. When she got home she drank some water but then also received some bad news about a cousin that had couple weeks ago but she just found out about it yesterday. She also is currently moving. She notes that this morning when she woke up she felt fine. She was making tea when all of a sudden she notes her head felt strange and her body was acting weird. She felt like she was going to pass out. She sat down and when did not go away she called 911. She is then brought to the emergency room. She notes she is only had some chicken and also to eat since her EGD yesterday. Denies any black or blood in her stool. Denies any chest pain or shortness of breath or difficulty breathing. Denies abdominal pain. No other complaints or concerns at this time. [facility] Medical History Pulmonary artery hypertension History of diabetes mellitus Anemia History of stress test History of echocardiogram Wears glasses Wears dentures Cancer Walker as ambulation aid High cholesterol PONV (postoperative nausea and vomiting) TIA (transient ischemic attack) History of GI bleed Gastric reflux Chronic cough History of edema Cardiology follow-up encounter Heart murmur Anemia Gastrointestinal bleeding Gastric AVM Duodenal arteriovenous malformation Former smoker Hypertension Anemia Gastrointestinal bleeding, upper Over 65 years old Biliary colic Iron deficiency anemia due to chronic blood loss Coronary artery disease Severe aortic stenosis History of coronary artery disease History of left heart catheterization (LHC) (~07/14/20) Bilateral carotid artery stenosis Type 2 diabetes mellitus TIA (transient ischemic attack) Nonrheumatic aortic (valve) stenosis Jayson's syndrome Pure hypercholesterolemia Paroxysmal atrial fibrillation Essential hypertension Atherosclerotic heart disease of [place] coronary artery without angina pectoris Sleep disorder breathing GERD (gastroesophageal reflux disease) Psoriasis CAD (coronary artery disease) Osteoarthritis Sleep disorder Tobacco abuse [place] (obstructive sleep apnea) Home Medications ?Medication ?Instructions ?Recorded ?Last Taken ?Type ezetimibe 10 mg tablet 10 mg PO QHS cholesterol 09/01/13 06/08/23 History pantoprazole 40 mg tablet,delayed 40 mg PO DAILY gerd 09/01/13 06/09/23 History release nitroglycerin 0.4 mg sublingual 0.4 mg sublingual Q5M PRN Chest 10/05/18 04/12/19 Rx tablet Pain #25 tabs niacin (inositol niacinate) 500 mg 1,000 mg PO BID supplement 04/12/19 06/09/23 History capsule clopidogrel 75 mg tablet 75 mg PO DAILY blood thinner 04/18/21 03/04/24 History metoprolol tartrate 50 mg tablet 50 mg PO Q12H blood pressure 06/09/23 03/07/24 09:00 History potassium chloride 10 mEq 10 meq PO DAILY #30 tabs 06/11/23 Unknown Rx tablet,extended release ascorbic acid (vitamin C) 1,000 mg 1 g PO DAILY 03/06/24 Unknown History tablet (C-1000) calcipotriene-betamethasone 0.005 1 applic topical DAILY PRN PSORASIS 03/06/24 Unknown History %-0.064 % topical ointment cholecalciferol (vitamin D3) 50 50 mcg PO DAILY 03/06/24 Unknown History mcg (2,000 unit) tablet (Thera-D) furosemide 40 mg tablet 40 mg PO Q12H 03/06/24 Unknown History Allergy/AdvReac Type Severity Reaction Status Date / Time Sulfa (Sulfonamide Allergy Severe HEART Verified 03/08/24 11:02 Antibiotics) RACING Latex, Natural Rubber Allergy Rash, Verified 03/08/24 11:02 psioriasis amoxicillin (From Augmentin) AdvReac Nausea Verified 03/08/24 11:02 atorvastatin (From Lipitor) AdvReac Other Verified 03/08/24 11:02 clavulanic acid (From AdvReac Nausea Verified 03/08/24 11:02 Augmentin) Iodinated Contrast Media AdvReac Other Verified 03/08/24 11:02 (CONTRASTS) lisinopril AdvReac Other Verified 03/08/24 11:02 red dye AdvReac NEEDS Verified 03/08/24 11:02 FOLLOW-UP rosuvastatin (From Crestor) AdvReac Other Verified 03/08/24 11:02 turkey AdvReac Rash Verified 03/08/24 11:02 Family History Mother Heart disease Diabetes Father Heart disease Cancer Sister Cancer COPD (chronic obstructive pulmonary disease) Surgical History S/P insertion of iliac artery stent History of cholecystectomy S/P TAVR (transcatheter aortic valve replacement) History of cardiac catheterization History of esophagogastroduodenoscopy (EGD) Hx of colonoscopy History of heart valve replacement History of tubal ligation History of bilateral carotid endarterectomy History of left mastectomy (~1998) History of right mastectomy (~1998) History of aortic valve replacement with bioprosthetic valve (~09/06/13) History of coronary artery bypass surgery (~09/06/13) Social History household members: none housing: house Smoking Status: Former smoker how long ago did patient quit smokin second hand exposure: No alcohol intake: never substance use type: does not use caffeine: Yes Type: coffee Number of servings: 2 and tea what type of physical activity do you participate in: none franci/voodoo: Worship seatbelt use: always do you feel safe at home: Yes ROS ROS ED Constitutional Constitutional ED: Reports other Details: Lightheaded, near syncope ; Denies chills or fever(s) Eyes Eyes: Denies change in vision ENT ENT ED: Denies sore throat Cardiovascular Cardiovascular: Denies chest pain Respiratory/Chest Respiratory/Chest: Denies cough or dyspnea Gastrointestinal Gastrointestinal: Denies abdominal pain, diarrhea, melena, nausea or vomiting Musculoskeletal Musculoskeletal: Reports neck pain; Denies arthralgias or myalgias Integumentary Denies Abrasions or rash Neurologic Neurologic: Reports other Details: Tingling sensation to the right side of her face Psychiatric Psychiatric: Reports anxiety EXAM Physical Exam Const Vital Signs: 03/08/24 10:58 03/08/24 11:30 03/08/24 12:57 Temperature 98.0 F Temperature Source Oral Pulse Rate 74 83 Pulse Rate [Lying] 78 Pulse Rate [Sitting (for 1 minute prior to obtaining)] 79 Pulse Rate [Standing (for 1 minute prior to obtaining)] 79 Respiratory Rate 18 17 Blood Pressure 134/72 H 130/53 H Blood Pressure [Lying] 139/51 H Blood Pressure [Sitting (for 1 minute prior to obtaining)] 150/62 H Blood Pressure [Standing (for 1 minute prior to obtaining)] 135/68 H Blood Pressure Mean 92 78 Blood Pressure Mean [Lying] 80 Blood Pressure Mean [Sitting (for 1 minute prior to obtaining)] 91 Blood Pressure Mean [Standing (for 1 minute prior to obtaining)] 90 Pulse Ox 97 94 Oxygen Delivery Method Room Air Room Air 03/08/24 14:00 Temperature Temperature Source Pulse Rate 79 Pulse Rate [Lying] Pulse Rate [Sitting (for 1 minute prior to obtaining)] Pulse Rate [Standing (for 1 minute prior to obtaining)] Respiratory Rate 20 H Blood Pressure 123/57 H Blood Pressure [Lying] Blood Pressure [Sitting (for 1 minute prior to obtaining)] Blood Pressure [Standing (for 1 minute prior to obtaining)] Blood Pressure Mean 79 Blood Pressure Mean [Lying] Blood Pressure Mean [Sitting (for 1 minute prior to obtaining)] Blood Pressure Mean [Standing (for 1 minute prior to obtaining)] Pulse Ox 94 Oxygen Delivery Method Room Air Positive well nourished and well developed General Appearance ED: well developed and NAD HEENT Reports moist mucous membranes HEENT Narrative: Sensation intact to light touch. The patient notes a slight paresthesia to the left side of her face. Negative for trauma Eyes PERRL Neck supple Chest Wall inspection of chest normal Resp normal respiratory effort and clear to auscultation bilaterally Cardio regular rate and regular rhythm GI normal to inspection, nondistended, normoactive bowel sounds and non-tender Back/Spine Back/Spine Narrative: No midline neck tenderness. Mild right paraspinal tenderness to palpation Cervical Spine: Negative for cervical spine tenderness Thoracic Spine / Upper Back: Negative for thoracic spinal tenderness Lumbar Spine / Lower Back: Negative for lumbar spinal tenderness Extremity normal to inspection Neuro oriented x3 Sensorium / Orientation: alert Motor Exam: Negative for general weakness Psych mental status grossly normal Skin no rashes or lesions noted and no wounds MDM MDM MDM Narrative Medical decision making narrative: Patient is evaluated for an episode of near syncope. Patient had an EGD yesterday with treatment of angiodysplastic lesions of the duodenum. Differential includes acute hemorrhage, dehydration, near syncope, arrhythmia, electrolyte abnormalities. Hemoglobin actually uptrending now at 8.7 however I suspect she is slightly hemoconcentrated this is stable. Her creatinine is 1.63 which is very mildly above her baseline again consistent with some mild dehydration. Her BUN is stable and mildly elevated at 28. Urinalysis is likely consistent with some contamination as it does have 0-5 squamous epithelial cells but will send for culture. She is not reporting any urinary symptoms and does not have a leukocytosis. Nitrites are negative. EKG does not show any acute arrhythmia. Orthostatic vital signs Are overall negative the patient is dizzy when she stands up. Patient is given a liter of IV fluids. Will be given p.o. challenge. She tolerates this will be discharged home. Was given dose of Tylenol as I suspect she has some neck pain/spasm likely associated with positioning during her EGD yesterday. Given that she has no further symptoms, remains hemodynamically stable and is stable labs I do not think she requires admission to the hospital. Patient is agreeable this plan of care. Patient is also given p.o. challenge in the emergency room. Lab Data Attestation: I reviewed the patient's lab results. Labs: Laboratory Results - last 24 hr 03/08/24 03/08/24 11:07 12:52 WBC 7.7 RBC 3.81 L Hgb 8.7 L Hct 31.1 L MCV 81.6 MCH 22.8 L MCHC 28.0 L RDW Std Deviation 47.7 H RDW Coeff of Velasquez 16.1 H Plt Count 300 MPV 10.0 Immature Gran % (Auto) 0.100 Neut % (Auto) 72.8 H Lymph % (Auto) 13.1 L [place] % (Auto) 10.0 Eos % (Auto) 3.1 Baso % (Auto) 0.9 Absolute Neuts (auto) 5.6 Absolute Lymphs (auto) 1.01 Nucleated RBC % 0 Sodium 138 Potassium 3.6 Chloride 100 Carbon Dioxide 31.0 Anion Gap 7 BUN 28 H Creatinine 1.63 H Estim Creat Clear Calc 23.14 Est GFR (MDRD) Af Amer 39 L Est GFR (MDRD) Non-Af 32 L BUN/Creatinine Ratio 17.2 Glucose 96 Calcium 8.9 Total Bilirubin 1.30 H AST 16 ALT 13 Alkaline Phosphatase 79 Total Protein 7.6 Albumin 3.8 Globulin 3.8 Albumin/Globulin Ratio 1.0 Urine Color Yellow Urine Clarity Sl. Cloudy Urine pH 6.0 Ur Specific [place] 1.015 Urine Protein 15 H Urine Glucose (UA) Normal Urine Ketones Negative Urine Occult Blood Negative Urine Nitrite Negative Urine Bilirubin Negative Urine Urobilinogen Normal Ur Leukocyte Esterase 500 H Urine RBC 0 SEEN Urine WBC 5-10 SEEN Ur Squamous Epith Cells 0-5 SEEN Urine Bacteria 1+ Urine Mucus 1+ Rhythm Strip Rhythm Strip: Sinus Rhythm Rate: 71 Ectopy: None EKG Initial EKG: Attestation: I personally reviewed and interpreted this EKG as follows: Interpretation: Sinus Rhythm Comments: Normal sinus rhythm at a rate of 71 bpm Left axis deviation Left bundle branch block Normal ST segments Prior EKG tracings: available for review Prior: Unchanged Discharge Plan Triage Chief Complaint: Dizziness ED Provider: Tiara Tai Dx/Rx/DC Orders Clinical Impression: Acute dehydration, Near syncope Instructions: ED Dehydration (Adult), ED Near-Fainting, Uncertain Cause Prescriptions: No Action nitroglycerin 0.4 mg tablet, sublingual 0.4 mg SUBLINGUAL Q5M PRN (Reason: Chest Pain) Qty: 25 1RF pantoprazole 40 MG tablet 40 mg PO DAILY Patient Comments: stomach acid ezetimibe 10 MG tablet 10 mg PO QHS Patient Comments: cholesterol niacin (inositol niacinate) 500 MG capsule 1,000 mg PO BID clopidogrel 75 mg tablet 75 mg PO DAILY Patient Comments: ON HOLD, FOR EGD 03/07 metoprolol tartrate 50 mg tablet 50 mg PO Q12H Patient Comments: TAKE 1 TABLET BY MOUTH TWICE A DAY potassium chloride 10 mEq tablet extended release 10 meq PO DAILY Qty: 30 0RF calcipotriene-betamethasone 0.005-0.064 % ointment 1 applic topical DAILY PRN (Reason: PSORASIS) cholecalciferol (vitamin D3) [Thera-D] 50 mcg (2,000 unit) tablet 50 mcg PO DAILY ascorbic acid (vitamin C) [C-1000] 1,000 mg tablet 1 g PO DAILY furosemide 40 mg Tablet 40 mg PO Q12H Primary Care Provider: Dasiha Ramirez Referrals: Daisha Ramirez DO [Primary Care Provider] - Activity Restrictions/Additional Instructions: Please increase your fluid and food intake today. Switch having 1 of dehydration.Take Tylenol as needed for your neck pain. Return if you have progression worsening your symptoms. Print Language: Serbian Disposition Disposition: Home, Self Care
[2024-03-08 13:09] LABS: Bacteria 1+ /hpf (None Seen); Mucous, Urine 1+ /hpf (<or=2+); Squamous Epithelial Cells - UA 0-5 SEEN /hpf (5-10); White Blood Cells 5-10 SEEN /hpf (0-5)
[2024-03-08] MEDS: 0.9% Normal Saline (1000mL) 1,000 ML 999 ML IV (13:32)
[2024-03-08 14:00] VITALS: BP 123/57; PULSE 79; RESP 20; O2SAT 94
[2024-03-08] MEDS: Acetaminophen 325 MG Tablet 650 MG PO (15:09)
[2024-03-08 15:42] VITALS: BP 123/57; PULSE 79; RESP 20; TEMP 36.6; O2SAT 94
[2024-03-08 16:00] VITALS: BP 148/68; PULSE 81
== END 2024-03-08 16:48 | disposition home or self-care (01) ==
PROVIDERS: Emergency Provider Emergency Medicine; PCP Internal Medicine; Visit Provider Emergency Medicine
DX: E86.0 Dehydration (principal); I11.0 Hypertensive heart disease with heart failure; I50.30 Unspecified diastolic (congestive) heart failure; I48.0 Paroxysmal atrial fibrillation; E11.9 Type 2 diabetes mellitus without complications; R55 Syncope and collapse; I44.7 Left bundle-branch block, unspecified; I35.0 Nonrheumatic aortic (valve) stenosis; K21.9 Gastro-esophageal reflux disease without esophagitis; I25.10 Atherosclerotic heart disease of native coronary artery without angina pectoris; L40.9 Psoriasis, unspecified; E78.00 Pure hypercholesterolemia, unspecified; G47.33 Obstructive sleep apnea (adult) (pediatric); G43.B0 Ophthalmoplegic migraine, not intractable; M19.90 Unspecified osteoarthritis, unspecified site; Z88.2 Allergy status to sulfonamides; Z88.0 Allergy status to penicillin; Z95.2 Presence of prosthetic heart valve; Z95.1 Presence of aortocoronary bypass graft; Z86.73 Personal history of transient ischemic attack (TIA), and cerebral infarction without residual deficits; Z79.02 Long term (current) use of antithrombotics/antiplatelets; Z87.19 Personal history of other diseases of the digestive system; Z90.49 Acquired absence of other specified parts of digestive tract; Z79.899 Other long term (current) drug therapy; Z87.891 Personal history of nicotine dependence
CPT/HCPCS: 80053; 81001; 85025; 87086; 87088; 93005; 96360; 99285; J7030; A4216

== ENCOUNTER → 2024-06-01 | Outpatient (CLI) | payer MEDICARE, SELFPAY ==
--- NOTE | 2024-06-01 12:59 | ART_ITS ---
Reason For Study Reason For Study: PVD Procedure A bilateral lower extremity continuous wave Doppler with analog waveform analysis,segmental pressures,and ankle brachial indexes with exercise. Left Segmental Pressures Left brachial= 127mmHg. Left high thigh = 136mmHg. Left low thigh = 104mmHg. Left calf = 101mmHg. Left posterior tibial artery = 103mmHg. Left dorsalis pedis artery = 98mmHg. Left digit = 88 mmHg. The left dorsalis pedis waveforms are monophasic. The left posterior tibial artery waveforms are biphasic. Right Segmental Pressures Right high thigh = 133mmHg. Right low thigh = 89mmHg. Right calf = 74mmHg. Right posterior tibial artery = 83mmHg. Right dorsalis pedis artery = 81mmHg. Right digit = 83 mmHg. The right dorsalis pedis waveforms are monophasic. The right posterior tibial artery waveforms are biphasic. Indices The right ankle brachial index by the dorsalis pedis is 0.64. The right ankle brachial index by the posterior tibial artery is 0.65. The right digital-brachial index is 0.65. The right ankle brachial index by the posterior tibial artery post exercise is 0.49. The left ankle brachial index by the dorsalis pedis is 0.77. The left ankle brachial index by the posterior tibial artery is 0.81. The left digital-brachial index is 0.69. The left posterior tibial artery index post exercise is 0.60. VL/Lower Ext Art Exam w/ Exercise Interpretation Summary Right VIVIAN 0.65, moderate arterial insufficiency. Doppler/PVR waveforms and segm ental pressures reveal proximal femoral disease. Right lower extremity with abnormal response to exercise and post exercise VIVIAN in the moderate category. Left VIVIAN 0.81, moderate arterial insufficiency. Doppler/PVR waveforms and segme ntal pressures reveal proximal femoral disease. Left lower extremity with abnormal response to exercise and post exercise VIVIAN i n the moderate category. Ordering Physician: Lizeth Copeland Referring Physician: Daisha Ramirez M.D. Performed By: FELIPA GANT RVT
--- NOTE | 2024-06-01 12:59 | CDU_ITS ---
Reason For Study Reason For Study: S/P bilateral CEA Rt. Velocities/BP Lt. Velocities/BP Prox CCA 44.1/7.1 cm/sec. Prox CCA 110.4/18.2 cm/sec. Mid CCA 67.0/14.2 cm/sec. Mid CCA 90.0/15.1 cm/sec. Dist CCA 74.4/11.8 cm/sec. Dist CCA 97.4/20.0 cm/sec. Prox ICA 321.7/29.2 cm/sec. Prox ICA 304.8/55.9 cm/sec. Mid ICA 219.2/25.5 cm/sec. Mid ICA 243.4/23.6 cm/sec. Dist ICA 108.9/19.4 cm/sec. Dist ICA 112.6/20.4 cm/sec. Rt. ICA/CCA = 4.8. Lt. ICA/CCA = 3.9. Prox ECA 374.2/0.0 cm/sec. Prox ECA 187.4/6.0 cm/sec. Rt. Vert. 74.2/15.7 cm/sec. Lt. Vert. 114.8/18.2 cm/sec. Right Extracranial There is heterogeneous, irregular atherosclerotic plaque noted in the right common carotid artery. There is heterogeneous, irregular atherosclerotic plaque noted in the right internal carotid artery. There is heterogeneous, irregular atherosclerotic plaque noted in the right external carotid artery. Antegrade flow is noted in the right vertebral artery. Left Extracranial There is heterogeneous, irregular atherosclerotic plaque noted in the left common carotid artery. There is heterogeneous, irregular atherosclerotic plaque noted in the left internal carotid artery. There is heterogeneous, irregular atherosclerotic plaque noted in the left external carotid artery. Antegrade flow is noted in the left vertebral artery. Procedure Carotid Duplex [id number]. This is a Carotid Duplex examination using B-mode, color flow and specral Doppler. Exam performed in department. Preliminary report given to Maegan Montez LPN. VL/Carotid Duplex Ultrasound Interpretation Summary Severe (>70%) stenosis right extracranial internal carotid. Severe (>70%) stenosis left extracranial internal carotid. Patent and antegrade vertebrals bilaterally. Ordering Physician: Lizeth Copeland Referring Physician: Daisha Ramirez M.D. Performed By: Mamta Riggins RVT and Student
== END | disposition home or self-care (01) ==
LOC: CVS 12:59
PROVIDERS: PCP Internal Medicine; Referring Provider Physician Assistant; Visit Provider Physician Assistant
DX: I73.9 Peripheral vascular disease, unspecified (principal); I65.23 Occlusion and stenosis of bilateral carotid arteries
CPT/HCPCS: 93880; 93924

== ENCOUNTER 2024-06-15 02:43 | Emergency (ER) | payer MEDICARE, SELFPAY ==
[2024-06-15 02:46] VITALS: BP 134/58; PULSE 69; RESP 18; TEMP 37; O2SAT 99; BMI 28.0
--- NOTE | 2024-06-15 02:50 | EX.ED.DYSGE1 ---
HPI History of Present Illness Chief Complaint: Cold Sx Informant: patient Onset/Context/Timing Onset: Hours (1) Context: Gradual Onset Timing: Continuous Quality: Dry Location: Mouth Worsened by: Nothing Relieved by: Nothing Narrative Narrative: Patient presents with a dry mouth and shortness of breath that began approximate 1 hour prior to arrival. Patient states has been constant. Patient states she has been having a cough but denies any sputum production. Patient denies any fevers or chills. Patient states she has had some nasal congestion and rhinorrhea. Patient denies any chest pain. Patient denies any nausea or vomiting. Patient denies any diarrhea. Patient denies any headaches or sinus pressure. [facility] Medical History Bilateral carotid artery stenosis Pulmonary artery hypertension History of diabetes mellitus Anemia History of stress test History of echocardiogram Wears glasses Wears dentures Cancer Walker as ambulation aid High cholesterol PONV (postoperative nausea and vomiting) TIA (transient ischemic attack) History of GI bleed Gastric reflux Chronic cough History of edema Cardiology follow-up encounter Heart murmur Anemia Gastrointestinal bleeding Gastric AVM Duodenal arteriovenous malformation Former smoker Hypertension Anemia Gastrointestinal bleeding, upper Over 65 years old Biliary colic Iron deficiency anemia due to chronic blood loss Coronary artery disease Severe aortic stenosis History of coronary artery disease History of left heart catheterization (LHC) (~07/14/20) Type 2 diabetes mellitus TIA (transient ischemic attack) Nonrheumatic aortic (valve) stenosis Jayson's syndrome Pure hypercholesterolemia Paroxysmal atrial fibrillation Essential hypertension Atherosclerotic heart disease of cahto coronary artery without angina pectoris Sleep disorder breathing GERD (gastroesophageal reflux disease) Psoriasis CAD (coronary artery disease) Osteoarthritis Sleep disorder Tobacco abuse [place] (obstructive sleep apnea) Home Medications ?Medication ?Instructions ?Recorded ?Last Taken ?Type ezetimibe 10 mg tablet 10 mg PO QHS cholesterol 09/01/13 06/08/23 History pantoprazole 40 mg tablet,delayed 40 mg PO DAILY gerd 09/01/13 06/09/23 History release nitroglycerin 0.4 mg sublingual 0.4 mg sublingual Q5M PRN Chest 10/05/18 04/12/19 Rx tablet Pain #25 tabs niacin (inositol niacinate) 500 mg 1,000 mg PO BID supplement 04/12/19 06/09/23 History capsule clopidogrel 75 mg tablet 75 mg PO DAILY blood thinner 04/18/21 03/04/24 History metoprolol tartrate 50 mg tablet 50 mg PO Q12H blood pressure 06/09/23 03/07/24 09:00 History potassium chloride 10 mEq 10 meq PO DAILY #30 tabs 06/11/23 Unknown Rx tablet,extended release ascorbic acid (vitamin C) 1,000 mg 1 g PO DAILY 03/06/24 Unknown History tablet (C-1000) calcipotriene-betamethasone 0.005 1 applic topical DAILY PRN PSORASIS 03/06/24 Unknown History %-0.064 % topical ointment cholecalciferol (vitamin D3) 50 50 mcg PO DAILY 03/06/24 Unknown History mcg (2,000 unit) tablet (Thera-D) furosemide 40 mg tablet 40 mg PO Q12H 03/06/24 Unknown History azithromycin 250 mg tablet 250 mg PO DAILY #4 TABLETS 06/15/24 Unknown Rx Allergy/AdvReac Type Severity Reaction Status Date / Time Sulfa (Sulfonamide Allergy Severe HEART Verified 06/15/24 02:46 Antibiotics) RACING Latex, Natural Rubber Allergy Rash, Verified 06/15/24 02:46 psioriasis amoxicillin (From Augmentin) AdvReac Nausea Verified 06/15/24 02:46 atorvastatin (From Lipitor) AdvReac Other Verified 06/15/24 02:46 clavulanic acid (From AdvReac Nausea Verified 06/15/24 02:46 Augmentin) Iodinated Contrast Media AdvReac Other Verified 06/15/24 02:46 (CONTRASTS) lisinopril AdvReac Other Verified 06/15/24 02:46 red dye AdvReac NEEDS Verified 06/15/24 02:46 FOLLOW-UP rosuvastatin (From Crestor) AdvReac Other Verified 06/15/24 02:46 turkey AdvReac Rash Verified 06/15/24 02:46 Family History Mother Heart disease Diabetes Father Heart disease Cancer Sister Cancer COPD (chronic obstructive pulmonary disease) Surgical History S/P insertion of iliac artery stent History of cholecystectomy S/P TAVR (transcatheter aortic valve replacement) History of cardiac catheterization History of esophagogastroduodenoscopy (EGD) Hx of colonoscopy History of heart valve replacement History of tubal ligation History of bilateral carotid endarterectomy History of left mastectomy (~1998) History of right mastectomy (~1998) History of aortic valve replacement with bioprosthetic valve (~09/06/13) History of coronary artery bypass surgery (~09/06/13) Social History household members: none housing: house Smoking Status: Former smoker how long ago did patient quit smokin second hand exposure: No alcohol intake: never substance use type: does not use caffeine: Yes Type: coffee Number of servings: 2 and tea what type of physical activity do you participate in: none franci/yazidism: Oriental Orthodox seatbelt use: always do you feel safe at home: Yes ROS ROS ED Constitutional Constitutional ED: Denies chills or fever(s) Eyes Eyes: Denies blurry vision or change in vision ENT ENT ED: Reports rhinorrhea; Denies sore throat Cardiovascular Cardiovascular: Denies chest pain or palpitations Respiratory/Chest Respiratory/Chest: Reports cough and dyspnea Gastrointestinal Gastrointestinal: Denies nausea or vomiting Genitourinary Genitourinary ED: Reports urinary frequency; Denies dysuria or hematuria Musculoskeletal Musculoskeletal: Reports back pain; Denies neck pain Integumentary Denies abscess or rash Neurologic Neurologic: Denies headache(s) or weakness Allergic/Immunologic Allergic/Immunologic ED: Denies mouth swelling or urticaria EXAM Physical Exam Const Vital Signs: 06/15/24 02:46 06/15/24 03:20 06/15/24 04:44 Temperature 98.6 F Temperature Source Oral Pulse Rate 69 74 73 Respiratory Rate 18 18 18 Respiratory Pattern Normal Blood Pressure 134/58 H Blood Pressure Mean 83 Pulse Ox 99 94 Oxygen Delivery Method Room Air Room Air Positive well nourished and well developed General Appearance ED: well developed and NAD Neck supple and no JVD Resp normal respiratory effort Auscultation: rhonchi Cardio regular rate and regular rhythm GI non-tender and non-distended Palpation: soft Extremity normal to inspection Neuro oriented x3, CN's II-XII intact bilaterally and no sensory deficits noted Sensorium / Orientation: alert Motor Exam: strength 5/5 throughout Psych mental status grossly normal MDM MDM MDM Narrative Medical decision making narrative: Differential diagnosis includes viral upper respiratory infection, pneumonia, bronchitis, electrolyte abnormality, and dehydration. Chest x-ray will be obtained to assess for pneumonia and bronchitis. CBC will be obtained to assess for leukocytosis and anemia. Basic metabolic profile will be obtained to assess for electrolyte abnormality and renal function. COVID-19, influenza, and RSV PCR will be obtained to assess for viral illness. Lab Data Attestation: I reviewed the patient's lab results. Lab results narrative: CBC was reviewed. There is mild anemia with a hemoglobin of 7.7 and hematocrit 27.5. Platelets were normal. White blood cell count was normal. Basic metabolic profile was reviewed. BUN was slightly elevated 23 and creatinine was 1.31. These are consistent with previous results. Labs: Laboratory Results - last 24 hr 06/15/24 03:23 WBC 8.9 RBC 3.54 L Hgb 7.7 L Hct 27.5 L MCV 77.7 L MCH 21.8 L MCHC 28.0 L RDW Std Deviation 47.7 H RDW Coeff of Velasquez 16.7 H Plt Count 277 MPV 9.4 Immature Gran % (Auto) 0.600 Neut % (Auto) 67.1 Lymph % (Auto) 13.3 L [place] % (Auto) 13.7 H Eos % (Auto) 4.6 Baso % (Auto) 0.7 Absolute Neuts (auto) 6.0 Absolute Lymphs (auto) 1.19 Nucleated RBC % 0 Sodium 137 Potassium 4.2 Chloride 103 Carbon Dioxide 28.0 Anion Gap 6 BUN 23 H Creatinine 1.31 H Estim Creat Clear Calc 29.70 Est GFR (MDRD) Af Amer 50 L Est GFR (MDRD) Non-Af 41 L BUN/Creatinine Ratio 17.6 Glucose 109 H Calcium 8.9 Radiography Chest X-Ray - ED: 2 View, Read by ED Physician, Read by Radiologist and Right Infiltrate Diagnostic Testing: Clinical Impression(s) from Imaging Studies Chest X-Ray 06/15/24 03:03 IMPRESSION: New 6.5 cm opacity projects over the right mid lung on the PA view, compared to the 03/05/2024 study, suspicious for pneumonia. Recommend continued radiologic follow-up to document resolution. Reading Location: [facility] PA and lateral chest x-ray was obtained. There are 2 views. On my independent interpretation, there is a right upper lobe infiltrate. There is no cardiomegaly noted. Bony thorax is normal. Radiologist also interpreted the x-ray and agrees. Treatment and Re-Evaluation :: Patient was given a DuoNeb aerosol here. Patient was given a dose of Zithromax here. Patient was given a prescription for Zithromax. Patient was instructed to drink plenty of fluids. Patient was instructed to follow-up with her primary care physician in 5 to 7 days. Patient was instructed to return if worse in any way. Patient understood and was agreeable with the plan. All questions were answered. Discharge Plan Triage Chief Complaint: Cold Sx ED Provider: David Boyd Dx/Rx/DC Orders Clinical Impression: Pneumonia, Anemia Instructions: ED Pneumonia (Adult) Prescriptions: New azithromycin 250 mg tablet 250 mg PO DAILY Qty: 4 0RF No Action nitroglycerin 0.4 mg tablet, sublingual 0.4 mg SUBLINGUAL Q5M PRN (Reason: Chest Pain) Qty: 25 1RF pantoprazole 40 MG tablet 40 mg PO DAILY Patient Comments: stomach acid ezetimibe 10 MG tablet 10 mg PO QHS Patient Comments: cholesterol niacin (inositol niacinate) 500 MG capsule 1,000 mg PO BID clopidogrel 75 mg tablet 75 mg PO DAILY Patient Comments: ON HOLD, FOR EGD 03/07 metoprolol tartrate 50 mg tablet 50 mg PO Q12H Patient Comments: TAKE 1 TABLET BY MOUTH TWICE A DAY potassium chloride 10 mEq tablet extended release 10 meq PO DAILY Qty: 30 0RF calcipotriene-betamethasone 0.005-0.064 % ointment 1 applic topical DAILY PRN (Reason: PSORASIS) cholecalciferol (vitamin D3) [Thera-D] 50 mcg (2,000 unit) tablet 50 mcg PO DAILY ascorbic acid (vitamin C) [C-1000] 1,000 mg tablet 1 g PO DAILY furosemide 40 mg Tablet 40 mg PO Q12H Primary Care Provider: Daisha Ramirez Referrals: Daisha Ramirez DO [Primary Care Provider] - 5-7 Days Print Language: Kinyarwanda Disposition Disposition: Home, Self Care
--- NOTE | 2024-06-15 03:03 | RAD_ITS ---
PROCEDURE: PA and lateral chest radiographs, two views REASON FOR EXAM: Cough TECHNIQUE: PA and lateral chest radiographs were obtained. COMPARISON: 03/05/2024 FINDINGS: The cardiomediastinal silhouette is similar. Sternotomy wires remain. Bones are osteopenic with degenerative changes in the spine. Bilateral axillary surgical clips are present. Minimal blunting of the left costophrenic angle on the PA view is similar. There is a new vague 6.5 cm opacity projecting over the right mid lung on the PA view. This is not well demonstrated on the lateral projection. RAD/Chest PA and Lateral IMPRESSION: New 6.5 cm opacity projects over the right mid lung on the PA view, compared to the 03/05/2024 study, suspicious for pneumonia. Recommend continued radiologic follow-up to document resolution. Reading Location: [facility]
--- NOTE | 2024-06-15 03:16 | ED.RN ---
Started placing alchol on the pt's left arm to start an IV and then pt became very demanding. don't you dare put that IV there, don't you put it there Matheus broke a needle off. This nurse put more alchol on the her left arm and then she started,What's taking so long,do you know what your doing. Advised her that this nurse was looking for the right vein. Pt then stated,Don't you touch me,don't you touch me. Meli,the charge nurse,came in and another nurse attempted.
[2024-06-15] MEDS: Ipratropium/Albuterol Sulfate 3 ML AMPUL.NEB INHALATION (03:18)
[2024-06-15 03:20] VITALS: PULSE 74; RESP 18
[2024-06-15 03:36] LABS: Absolute Lymphocyte Count 1.19 X10^3/uL (0.83-4.51); Basophil# 0.06 X10^3/uL; Basophil% 0.7 % (0-1); Eosinophil# 0.41 X10^3/uL; Eosinophils% 4.6 % (0-5); Hematocrit 27.5 % (37-47); Hemoglobin 7.7 g/dL (12.0-15.0); Lymphocyte # 1.19 X10^3/ul (0.83-4.51); Lymphocyte % 13.3 % (19-41); Mean Corpuscular Hgb 21.8 pg (27.0-32.0); Mean Corpuscular Volume 77.7 fL (81-99); Mean Platelet Vol. 9.4 fl (6.2-12.0); Monocyte# 1.22 X10^3/uL; Monocyte% 13.7 % (0-10); NRBC Flagged by Analyzer 0 % (0-5); Neutrophil % 67.1 % (47-70); Platelet Count 277 K/mm3 (150-450); RBC Distribution Width CV 16.7 % (11.6-14.6); RBC Distribution Width SD 47.7 fl (35.1-43.9); Red Blood Count 3.54 M/mm3 (4.2-5.4); White Blood Count 8.9 K/mm3 (4.4-11.0)
[2024-06-15 04:04] LABS: Anion Gap 6 (5-15); BUN 23 mg/dL (7-18); BUN/Creat Ratio 17.6 RATIO (10-20); Calcium,Total 8.9 mg/dL (8.5-10.1); Chloride 103 mmol/L (98-107); Creatinine, Serum 1.31 mg/dL (0.55-1.02); EST Glomerular Filtration Rate 41 mL/min (>60); Est Glom Filt Rate - Afr Amer 50 mL/min (>60); Glucose 109 mg/dL (74-106); Potassium 4.2 mmol/L (3.5-5.1); Sodium Level 137 mmol/L (136-145)
[2024-06-15 04:44] VITALS: PULSE 73; RESP 18; O2SAT 94
[2024-06-15] MEDS: Azithromycin 250 MG Tablet 500 MG PO (05:27)
== END 2024-06-15 05:35 | disposition home or self-care (01) ==
PROVIDERS: Emergency Provider Emergency Medicine; PCP Internal Medicine; Visit Provider Emergency Medicine
DX: J18.9 Pneumonia, unspecified organism (principal); E11.9 Type 2 diabetes mellitus without complications; D64.9 Anemia, unspecified; E78.00 Pure hypercholesterolemia, unspecified; I10 Essential (primary) hypertension; Z87.891 Personal history of nicotine dependence; I25.10 Atherosclerotic heart disease of native coronary artery without angina pectoris; M54.9 Dorsalgia, unspecified; Z95.2 Presence of prosthetic heart valve; Z90.49 Acquired absence of other specified parts of digestive tract; Z98.51 Tubal ligation status; Z95.1 Presence of aortocoronary bypass graft; Z86.73 Personal history of transient ischemic attack (TIA), and cerebral infarction without residual deficits
CPT/HCPCS: 71046; 80048; 85025; 87631; 94640; 99285; A4216

== ENCOUNTER 2024-06-17 02:36 | Emergency (ER) | payer MEDICARE, SELFPAY ==
[2024-06-17] VITALS (40 sets, daily range): BP systolic 107–153; BP diastolic 34–126; PULSE 53–85; RESP 12–21; TEMP 36.6–36.8; O2SAT 46–100; BMI 26.7
--- NOTE | 2024-06-17 02:51 | EKG12_ITS ---
Test Reason : DYSRHYTHMIA Blood Pressure : */* mmHG Vent. Rate : 71 BPM Atrial Rate : 71 BPM P-R Int : 206 ms QRS Dur : 158 ms QT Int : 450 ms P-R-T Axes : 46 -31 123 degrees QTcB Int : 489 ms Normal sinus rhythm Left axis deviation Left bundle branch block Abnormal ECG Confirmed by Donnie Carbajal ([id number]), marketing editor EN HERNANDEZ ([id number]) on 06/18/2024 10:28:15 AM Referred By: SHERI Confirmed By: Donnie Carbajal
[2024-06-17 02:57] LABS: Absolute Lymphocyte Count 1.05 X10^3/uL (0.83-4.51); Absolute Neutrophil Count 7.5 X10^3/uL (2.0-7.7); Basophil# 0.07 X10^3/uL; Basophil% 0.7 % (0-1); Eosinophil# 0.38 X10^3/uL; Eosinophils% 3.6 % (0-5); Hematocrit 26.2 % (37-47); Hemoglobin 7.4 g/dL (12.0-15.0); Lymphocyte # 1.05 X10^3/ul (0.83-4.51); Mean Corp Hgb Conc 28.2 g/dL (32-36); Mean Corpuscular Hgb 22.2 pg (27.0-32.0); Mean Corpuscular Volume 78.4 fL (81-99); Mean Platelet Vol. 9.4 fl (6.2-12.0); Monocyte# 1.38 X10^3/uL; Monocyte% 13.2 % (0-10); NRBC Flagged by Analyzer 0 % (0-5); Neutrophil # 7.53 X10^3/uL (2.7-7.7); Neutrophil % 71.8 % (47-70); Platelet Count 337 K/mm3 (150-450); RBC Distribution Width SD 48.1 fl (35.1-43.9); Red Blood Count 3.34 M/mm3 (4.2-5.4); White Blood Count 10.5 K/mm3 (4.4-11.0)
--- NOTE | 2024-06-17 03:02 | RAD_ITS ---
PROCEDURE: CHEST 1 VIEW (PORTABLE) REASON FOR EXAM: Chest pain TECHNIQUE: Frontal view of the chest. COMPARISON: 06/15/2024 FINDINGS: Heart size is mildly enlarged. Left atrial appendage clip There are atherosclerotic calcifications of the thoracic aorta. The lungs are clear. Degenerative changes are identified within the thoracic spine. Median sternotomy wires. RAD/Chest 1 View (Portable) IMPRESSION: Cardiomegaly with no acute pulmonary disease Reading Location: [facility]
[2024-06-17 03:19] LABS: Anion Gap 9 (5-15); BUN 24 mg/dL (7-18); BUN/Creat Ratio 16.8 RATIO (10-20); Calcium,Total 9.1 mg/dL (8.5-10.1); Chloride 101 mmol/L (98-107); Creatinine, Serum 1.43 mg/dL (0.55-1.02); EST Glomerular Filtration Rate 37 mL/min (>60); Est Glom Filt Rate - Afr Amer 45 mL/min (>60); Estimated Creatinine Clearance 26.64 ml/min; Glucose 133 mg/dL (74-106); Sodium Level 137 mmol/L (136-145); Troponin-I HS (w/2H Reflex) 44 pg/mL (3.0-54.0)
--- NOTE | 2024-06-17 03:20 | CT_ITS ---
PROCEDURE: CTA CHEST WITH CONTRAST REASON FOR EXAM: CHEST PAIN. PATIENT LOST BALANCE AND FELL ONTO HER TABLE. RIB PAIN AND HEADACHE. TECHNIQUE: Contiguous axial scans of 1.25 mm slice thicknesses. Sagittal and coronal reconstruction images were obtained. One or more dose reduction techniques were used (e.g., automated exposure control, adjustment of mA and/or kv according to patient size, use of iterative reconstruction technique). IV CONTRAST: ISOVUE 370. 100 ML. COMPARISON: CHEST RADIOGRAPHS DATED 06/15/2024 AND 06/17/2024. FINDINGS: Hardware: None. Lymph nodes: No mediastinal hilar or axillary lymphadenopathy. Heart: Mild cardiac enlargement. RV/LV Diameter Ratio: N/A Thoracic Aorta: No thoracic aortic aneurysm or dissection. A stent graft at the aortic root. Ascending aorta diameter measures 3.0 cm. Atherosclerotic calcific disease of the aorta. Pulmonary Vessels: No evidence of acute pulmonary emboli through the major subsegmental branches. Lungs and Airways: Centrilobular emphysematous changes. New area of consolidation in the left lower lobe, axial image 83 measuring 2.2 times 1.2 cm with spiculated margin. Smaller areas of parenchymal scarring in the dependent lungs. Pleura: At least a 25% left lung pneumothorax. No signs of tension. Upper Abdomen: Visualized portions of the upper abdominal viscera are unremarkable. Severe atherosclerotic calcification of the aorta and visceral arteries. Bones: No evidence of acute rib fracture. Median sternotomy wires. Multilevel spondylosis. Exaggerated kyphosis of the thoracic spine. Soft tissues: Unremarkable. CT/CTA Chest W/WO Contrast IMPRESSION: 1. A 25% LEFT LUNG PNEUMOTHORAX without signs of tension. 2. A SOFT TISSUE MASS DENSITY in the left lower lobe. Can not exclude maligna ncy. 3. CENTRILOBULAR EMPHYSEMATOUS CHANGES. 4. STENT GRAFT at the aortic root. 5. Severe ATHEROSCLEROTIC calcific disease. 6. NO EVIDENCE OF RIB FRACTURE. 7. Nonacute findings detailed above. Reading Location: [facility]
[2024-06-17] MEDS: Morphine 2 MG/ML Syringe IV (03:28)
[2024-06-17] MEDS: 0.9% Normal Saline (500mL Bag) 500 ML 999 ML IV (03:28)
[2024-06-17] MEDS: Ondansetron 4 MG/2 ML Vial IV (03:28)
[2024-06-17 04:53] LABS: Reflex Troponin-HS? (from REC) Y
--- NOTE | 2024-06-17 05:31 | PCM.HP.STD ---
HPI - General General Date of Admission: 06/17/24 Date of Service: 06/17/24 Chief Complaint: Chest pain HPI Narrative The patient is an 83 y/o F w/ PMHx: CKD stage III unclear subtype per GFR trending, Chronic normocytic anemia/Fe deficiency anemia on chronic IV and oral Fe supplementation, CAD s/p CABG, HTN, HLD, Carotid disease s/p BL CEA, GERD, PAF, DEN[place], Hx TIA, Former tobacco use, Valvular heart disease s/p AVR bioprosthetic, Hx Breast CA s/p BL mastectomy, Diabetes mellitus type II, History GI bleeds following w/ Dr. Montague, recent ED evaluation 06/15/2024 with mild dyspnea starting 1 hour prior to arrival with mild nasal congestion and rhinorrhea with no chest discomfort or any other symptoms at that time with unremarkable plain film and negative COVID/influenza/RSV PCR with hemoglobin 7.7, BUN/creatinine 23/1.31 consistent with previous with administration of DuoNeb therapy, azithromycin and discharged on Z-Deion with plan to follow-up outpatient with PCP who now re-presents to the [facility] ED on 06/17/2024 with history of recently moving into a new trailer which had been cleaning out with episode of lightheadedness and dizziness when bending while cleaning out her kitten liter box with near syncopal event, hitting her head on the window but alert following with then sudden onset severe intractable L sided 10/10 chest pain starting 1 hour prior to ED arrival prompting EMS call. She described as tight, stabbing, squeezing radiating toward the back noted to be 9 out of 10 in severity eventually improving the ED to 4 out of 10 in severity. Workup in the ED included T97.9, heart rate 73, BP 132/63, respiratory rate 15, 97% on room air with most recent repeat vitals heart rate 68, BP 121/53, respiratory rate 15, 93% on room air, CBC with WBC 10.5, human 7.4, MCV 78.4, platelet 337 without marked shift, BMP with BUN/creatinine 24/1.43, GFR 37, glucose 133, troponin 44, chest x-ray with cardiomegaly with no acute pulmonary disease, chest CTA with a 25% left lung pneumothorax without any signs of tension, soft tissue mass density in the left lower lobe with inability to exclude malignancies, centrilobular emphysematous change, stent graft at the aortic root, severe sclerotic calcific disease, no evidence of any rib fractures, EKG with sinus rhythm with L BBB with no acute evidence of ischemia. ED noted intention to place chest tube and discussed case with Dr. Boyle who will manage chest tube. [facility] Medical History Bilateral carotid artery stenosis Pulmonary artery hypertension History of diabetes mellitus Anemia History of stress test History of echocardiogram Wears glasses Wears dentures Cancer Walker as ambulation aid High cholesterol PONV (postoperative nausea and vomiting) TIA (transient ischemic attack) History of GI bleed Gastric reflux Chronic cough History of edema Cardiology follow-up encounter Heart murmur Anemia Gastrointestinal bleeding Gastric AVM Duodenal arteriovenous malformation Former smoker Hypertension Anemia Gastrointestinal bleeding, upper Over 65 years old Biliary colic Iron deficiency anemia due to chronic blood loss Coronary artery disease Severe aortic stenosis History of coronary artery disease History of left heart catheterization (LHC) (~07/14/20) Type 2 diabetes mellitus TIA (transient ischemic attack) Nonrheumatic aortic (valve) stenosis Jayson's syndrome Pure hypercholesterolemia Paroxysmal atrial fibrillation Essential hypertension Atherosclerotic heart disease of [place] coronary artery without angina pectoris Sleep disorder breathing GERD (gastroesophageal reflux disease) Psoriasis CAD (coronary artery disease) Osteoarthritis Sleep disorder Tobacco abuse DENVER (obstructive sleep apnea) Home Medications ?Medication ?Instructions ?Recorded ?Last Taken ?Type ezetimibe 10 mg tablet 10 mg PO QHS cholesterol 09/01/13 06/08/23 History pantoprazole 40 mg tablet,delayed 40 mg PO DAILY gerd 09/01/13 06/09/23 History release nitroglycerin 0.4 mg sublingual 0.4 mg sublingual Q5M PRN Chest 10/05/18 04/12/19 Rx tablet Pain #25 tabs niacin (inositol niacinate) 500 mg 1,000 mg PO BID supplement 04/12/19 06/09/23 History capsule clopidogrel 75 mg tablet 75 mg PO DAILY blood thinner 04/18/21 03/04/24 History metoprolol tartrate 50 mg tablet 50 mg PO Q12H blood pressure 06/09/23 03/07/24 09:00 History potassium chloride 10 mEq 10 meq PO DAILY #30 tabs 06/11/23 Unknown Rx tablet,extended release ascorbic acid (vitamin C) 1,000 mg 1 g PO DAILY 03/06/24 Unknown History tablet (C-1000) calcipotriene-betamethasone 0.005 1 applic topical DAILY PRN PSORASIS 03/06/24 Unknown History %-0.064 % topical ointment cholecalciferol (vitamin D3) 50 50 mcg PO DAILY 03/06/24 Unknown History mcg (2,000 unit) tablet (Thera-D) furosemide 40 mg tablet 40 mg PO Q12H 03/06/24 Unknown History Allergy/AdvReac Type Severity Reaction Status Date / Time Sulfa (Sulfonamide Allergy Severe HEART Verified 06/17/24 02:44 Antibiotics) RACING Latex, Natural Rubber Allergy Rash, Verified 06/17/24 02:44 psioriasis amoxicillin (From Augmentin) AdvReac Nausea Verified 06/17/24 02:44 atorvastatin (From Lipitor) AdvReac Other Verified 06/17/24 02:44 clavulanic acid (From AdvReac Nausea Verified 06/17/24 02:44 Augmentin) Iodinated Contrast Media AdvReac Other Verified 06/17/24 02:44 (CONTRASTS) lisinopril AdvReac Other Verified 06/17/24 02:44 red dye AdvReac NEEDS Verified 06/17/24 02:44 FOLLOW-UP rosuvastatin (From Crestor) AdvReac Other Verified 06/17/24 02:44 turkey AdvReac Rash Verified 06/17/24 02:44 Family History Mother Heart disease Diabetes Father Heart disease Cancer Sister Cancer COPD (chronic obstructive pulmonary disease) Surgical History S/P insertion of iliac artery stent History of cholecystectomy S/P TAVR (transcatheter aortic valve replacement) History of cardiac catheterization History of esophagogastroduodenoscopy (EGD) Hx of colonoscopy History of heart valve replacement History of tubal ligation History of bilateral carotid endarterectomy History of left mastectomy (~1998) History of right mastectomy (~1998) History of aortic valve replacement with bioprosthetic valve (~09/06/13) History of coronary artery bypass surgery (~09/06/13) Social History household members: none housing: house Smoking Status: Former smoker how long ago did patient quit smokin second hand exposure: No alcohol intake: never substance use type: does not use caffeine: Yes Type: coffee Number of servings: 2 and tea what type of physical activity do you participate in: none franci/pentecostal: Christianity seatbelt use: always do you feel safe at home: Yes ROS ROS Narrative Admission Review of Systems: CONSTITUTIONAL: No weight loss, fever, chills, + weakness or fatigue. HEENT: + LH, dizziness. Eyes: No visual loss, blurred vision, double vision or yellow sclerae. Ears, Nose, Throat: No hearing loss, sneezing, congestion, runny nose or sore throat. SKIN: No rash or itching, lesions, wounds aside from + psoriatic skin changes. CARDIOVASCULAR: + LH, dizziness, near syncopal, chest pain. No edema, orthopnea, palpitations. RESPIRATORY: + Dyspnea, mild cough. No marked sputum, wheezing, hemoptysis. GASTROINTESTINAL: No anorexia, nausea, vomiting or diarrhea, abdominal pain, melena, BRBPR. GENITOURINARY: No dysuria, frequency, urgency or retention. NEUROLOGICAL: + LH, dizziness, near syncopal event. No headache, paralysis, ataxia, numbness or tingling in the extremities, focal weakness, change in bowel or bladder control, seizure. MUSCULOSKELETAL: + muscle, back pain, joint pain or stiffness. HEMATOLOGIC: + chronic anemia, easy bleeding/bruising. LYMPHATICS: No enlarged nodes. No history of splenectomy. PSYCHIATRIC: No history of depression or anxiety. ENDOCRINOLOGIC: No reports of sweating, cold or heat intolerance. No polyuria or polydipsia. ALLERGIES: No history of asthma, hives, eczema or rhinitis. Vital Signs Vital Signs Vital Signs: 06/17/24 02:36 06/17/24 02:40 06/17/24 02:55 Temperature 97.9 F Temperature Source Oral Pulse Rate 73 Respiratory Rate 15 Respiratory Effort Normal Non-Labored Blood Pressure 132/63 H Blood Pressure Mean 86 Pulse Ox 97 98 Oxygen Delivery Method Room Air Room Air 06/17/24 03:36 06/17/24 04:00 06/17/24 05:00 Temperature Temperature Source Pulse Rate 72 68 69 Respiratory Rate 18 15 18 Respiratory Effort Blood Pressure 118/34 L 121/53 H 126/50 H Blood Pressure Mean 62 75 75 Pulse Ox 100 93 99 Oxygen Delivery Method Room Air Room Air Room Air Weight Weight: 146 lb 6.191 oz Body Mass Index (BMI) 26.7 Physical Exam Narrative Physical Examination: General: Awake, alert, oriented x 3 and cooperative, laying in ED bed, notes ongoing persistent left chest discomfort and mild dyspnea but she is talking very rapidly and appears to have no evidence of severe dyspnea with stable oxygenation on monitor. Skin: Normal color, normal turgor, no icterus, no cyanosis except occasional stage ecchymoses, abrasion. HEENT: AT/NC, EOMI, PERRLA, MMM, no carotid bruits or JVD noted. Lungs: Diminished, greater bases, no evidence any distress, no rales, ronchi or wheezing. Heart: Regular rate and rhythm; no gallop, rub audible, +SM. Abdomen: Soft, NTTP, ND, mildly hyperactive BS, no HSM. Extremities: No cyanosis, clubbing, or edema. Neurological: Patient awake, alert, oriented as noted, cognitive function intact; pupils equally reactive to light and accommodation, cranial nerves gross normal, moving all 4 extremities, no focal deficits, strength moderately to severely globally decreased secondary to acute presentation. Psychiatric: Affect appears fatigued, no acute evidence of depressive or anxiety feelings. Results Lab / Micro Data 06/17/24 02:20 06/17/24 02:20 Labs: Laboratory Results - last 24 hr 06/17/24 02:20: WBC 10.5, RBC 3.34 L, Hgb 7.4 L, Hct 26.2 L, MCV 78.4 L, MCH 22.2 L, MCHC 28.2 L, RDW Std Deviation 48.1 H, RDW Coeff of Velasquez 17.0 H, Plt Count 337, MPV 9.4, Immature Gran % (Auto) 0.700, Neut % (Auto) 71.8 H, Lymph % (Auto) 10.0 L, [place] % (Auto) 13.2 H, Eos % (Auto) 3.6, Baso % (Auto) 0.7, Absolute Neuts (auto) 7.5, Absolute Lymphs (auto) 1.05, Nucleated RBC % 0, Sodium 137, Potassium 4.0, Chloride 101, Carbon Dioxide 27.0, Anion Gap 9, BUN 24 H, Creatinine 1.43 H, Estim Creat Clear Calc 26.64, Est GFR (MDRD) Af Amer 45 L, Est GFR (MDRD) Non-Af 37 L, BUN/Creatinine Ratio 16.8, Glucose 133 H, Calcium 9.1, Troponin I High Sens 44 Imaging Radiology Impression Chest X-Ray 06/17/24 03:02 IMPRESSION: Cardiomegaly with no acute pulmonary disease Reading Location: [facility] Chest CTA 06/17/24 03:20 IMPRESSION: 1. A 25% LEFT LUNG PNEUMOTHORAX without signs of tension. 2. A SOFT TISSUE MASS DENSITY in the left lower lobe. Can not exclude malignancy. 3. CENTRILOBULAR EMPHYSEMATOUS CHANGES. 4. STENT GRAFT at the aortic root. 5. Severe ATHEROSCLEROTIC calcific disease. 6. NO EVIDENCE OF RIB FRACTURE. 7. Nonacute findings detailed above. Reading Location: [facility] Assessment & Plan Assessment/Plan (1) Pneumothorax: PLAN: Plan The patient is an 83 y/o F w/ PMHx: CKD stage III unclear subtype per GFR trending, Chronic normocytic anemia/Fe deficiency anemia on chronic IV and oral Fe supplementation, CAD s/p CABG, HTN, HLD, Carotid disease s/p BL CEA, GERD, PAF, [place], Hx TIA, Former tobacco use, Valvular heart disease s/p AVR bioprosthetic, Hx Breast CA s/p BL mastectomy, Diabetes mellitus type II, History GI bleeds following w/ Friend who now presents to the [facility] ED on 06/17/2024 with history of recently moving into a new trailer which had been cleaning out with episode of lightheadedness and dizziness when bending while cleaning out her kitten liter box with near syncopal event, hitting her head on the window but alert following with then sudden onset severe intractable L sided 10/10 chest pain starting 1 hour prior to ED arrival prompting EMS call. #1. Chest discomfort secondary to left-sided lung pneumothorax: Will admit to PCU, continue oxygen supplementation, continue chest tube per surgery direction, will plan repeat serial chest x-rays as needed, as long as no evidence of any bleeding we will continue patient Plavix therapy 06/17/2024, defer immediate chemoprophylaxis however, will have as needed pain regimen, antinausea regimen, continue cycle cardiac enzymes, magnesium level requested, will repeat EKGs as needed, PT/OT/case management consulted for discharge planning. #2. Incidentally noted left lower lobe soft tissue mass density, unclear etiology: CT imaging with soft tissue mass density in the left lower lobe with inability to exclude malignancy, will request pulmonary consultation, will need follow-up outpatient to further pursue especially given current presentation with pneumothorax and need for chest tube placement any kind of concept of biopsy would be deferred. #3. Centrilobular emphysematous changes: CT imaging with noted centrilobular emphysematous changes, does have former tobacco use history, will maintain on ATC budesonide therapy,. Albuterol, encourage head of bed and I-S. #4. Chronic Kidney Disease Stage III, unclear subtype per GFR trending: Admission BUN/Cr 24/1.43, GFR 37, baseline renal function primarily 1.3-1.6, repeat BMP in AM. #5. Chronic microcytic anemia/iron deficiency anemia with history of GI bleed: Admission hemoglobin 7.4, MCV 78.4, recent 06/15/2024 hemoglobin 7.7 with baseline primarily ranging from 7-8, will closely monitor, continue iron supplementation. #6. CAD: Status post CABG and noted also stent graft aortic root, continue Plavix cautiously, continue metoprolol, not on SOCORRO inhibitor/AR B nor on statin therapy. #7. Hypertension: Continue home metoprolol, Lasix home regimen with hold parameters as needed, as needed IV hydralazine. #8. Hyperlipidemia: Not on statin therapy, will continue ezetimibe. #9. Bilateral carotid stenosis: Status post bilateral CEA, cautiously continue Plavix regimen, continue hypertensive regimen, ezetimibe. #10. History of diabetes mellitus type II: Not on medication, last hemoglobin A1c noted 5.1% 11/10/2021, diet controlled, will defer any Accu-Cheks and sliding scale. #11. Valvular heart disease: Status post AVR x 2, bioprosthetic valve, last noted echo 06/09/2023 with EF 45%, mild MV insufficiency, mild biatrial dilatation, stable appearing bioprosthetic aortic valve apparatus. #12. History TIA: Continue Plavix, not on statin therapy per current regimen but on ezetimibe, continue metoprolol, not on SOCORRO/ARB #13. PAF: Continue metoprolol home regimen, not chronically anticoagulated. #14. Former tobacco use: Encourage continued tobacco cessation. #15. GERD with history of GI bleed: Maintained on PPI. #16. [place]: Given current presentation will hold CPAP usage, continue nasal cannula supplementation in the interim. #17. History of breast cancer: Patient with history of previous breast cancer, status post bilateral mastectomy, unclear exact type or further intervention, in remission, encourage continued outpatient follow-up as previously arranged. #18. DVT prophylaxis: SCDs, holding chemoprophylaxis given recent chest tube placement, add once clinically appropriate. #19. CODE status: Patient HCPOA is her niece Yvonne now and LW is in place. Discussed CODE status at length including difference between FULL code, DNR-CCA and DNR-CC status. Following discussions about the differences in these status, requested DNR-CCA, no intubation status. Advanced Care Planning Face to Face Time: 16 minutes. Charges/Coding Visit Charges Inpatient E&M: 66406 Init Hosp L3 Procedures Hospitalists Procedures: 19944 Advncd Care Plan 30 Min
--- NOTE | 2024-06-17 05:37 | EX.ED.DYSGE1 ---
HPI History of Present Illness Chief Complaint: Chest Pain Informant: patient and EMS Narrative Narrative: Patient is 83-year-old female with past medical history of chronic anemia hypertension [id number] diabetes and previous TIAs currently on Plavix. She was seen in the ER 2 days ago secondary to chest discomfort and cough and was found to have right sided pneumonia. At that time she was not septic or hypoxic so she was placed on antibiotics and discharged home. Patient states that this evening she was at home when she got sudden onset left-sided chest pain that was sharp in nature. She denies any trauma fevers or chills but states that she was concerned that this was cardiac in nature and therefore called EMS to bring her in for evaluation. She states she took 3 home nitro without any symptom improvement and also took baby aspirin also without any symptom improvement. [facility] Medical History Bilateral carotid artery stenosis Pulmonary artery hypertension History of diabetes mellitus Anemia History of stress test History of echocardiogram Wears glasses Wears dentures Cancer Walker as ambulation aid High cholesterol PONV (postoperative nausea and vomiting) TIA (transient ischemic attack) History of GI bleed Gastric reflux Chronic cough History of edema Cardiology follow-up encounter Heart murmur Anemia Gastrointestinal bleeding Gastric AVM Duodenal arteriovenous malformation Former smoker Hypertension Anemia Gastrointestinal bleeding, upper Over 65 years old Biliary colic Iron deficiency anemia due to chronic blood loss Coronary artery disease Severe aortic stenosis History of coronary artery disease History of left heart catheterization (LHC) (~07/14/20) Type 2 diabetes mellitus TIA (transient ischemic attack) Nonrheumatic aortic (valve) stenosis Jayson's syndrome Pure hypercholesterolemia Paroxysmal atrial fibrillation Essential hypertension Atherosclerotic heart disease of [place] coronary artery without angina pectoris Sleep disorder breathing GERD (gastroesophageal reflux disease) Psoriasis CAD (coronary artery disease) Osteoarthritis Sleep disorder Tobacco abuse [place] (obstructive sleep apnea) Home Medications ?Medication ?Instructions ?Recorded ?Last Taken ?Type ezetimibe 10 mg tablet 10 mg PO QHS cholesterol 09/01/13 06/08/23 History pantoprazole 40 mg tablet,delayed 40 mg PO DAILY gerd 09/01/13 06/09/23 History release nitroglycerin 0.4 mg sublingual 0.4 mg sublingual Q5M PRN Chest 10/05/18 04/12/19 Rx tablet Pain #25 tabs niacin (inositol niacinate) 500 mg 1,000 mg PO BID supplement 04/12/19 06/09/23 History capsule clopidogrel 75 mg tablet 75 mg PO DAILY blood thinner 04/18/21 03/04/24 History metoprolol tartrate 50 mg tablet 50 mg PO Q12H blood pressure 06/09/23 03/07/24 09:00 History potassium chloride 10 mEq 10 meq PO DAILY #30 tabs 06/11/23 Unknown Rx tablet,extended release ascorbic acid (vitamin C) 1,000 mg 1 g PO DAILY 03/06/24 Unknown History tablet (C-1000) calcipotriene-betamethasone 0.005 1 applic topical DAILY PRN PSORASIS 03/06/24 Unknown History %-0.064 % topical ointment cholecalciferol (vitamin D3) 50 50 mcg PO DAILY 03/06/24 Unknown History mcg (2,000 unit) tablet (Thera-D) furosemide 40 mg tablet 40 mg PO Q12H 03/06/24 Unknown History Allergy/AdvReac Type Severity Reaction Status Date / Time Sulfa (Sulfonamide Allergy Severe HEART Verified 06/17/24 02:44 Antibiotics) RACING Latex, Natural Rubber Allergy Rash, Verified 06/17/24 02:44 psioriasis amoxicillin (From Augmentin) AdvReac Nausea Verified 06/17/24 02:44 atorvastatin (From Lipitor) AdvReac Other Verified 06/17/24 02:44 clavulanic acid (From AdvReac Nausea Verified 06/17/24 02:44 Augmentin) Iodinated Contrast Media AdvReac Other Verified 06/17/24 02:44 (CONTRASTS) lisinopril AdvReac Other Verified 06/17/24 02:44 red dye AdvReac NEEDS Verified 06/17/24 02:44 FOLLOW-UP rosuvastatin (From Crestor) AdvReac Other Verified 06/17/24 02:44 turkey AdvReac Rash Verified 06/17/24 02:44 Family History Mother Heart disease Diabetes Father Heart disease Cancer Sister Cancer COPD (chronic obstructive pulmonary disease) Surgical History S/P insertion of iliac artery stent History of cholecystectomy S/P TAVR (transcatheter aortic valve replacement) History of cardiac catheterization History of esophagogastroduodenoscopy (EGD) Hx of colonoscopy History of heart valve replacement History of tubal ligation History of bilateral carotid endarterectomy History of left mastectomy (~1998) History of right mastectomy (~1998) History of aortic valve replacement with bioprosthetic valve (~09/06/13) History of coronary artery bypass surgery (~09/06/13) Social History household members: none housing: house Smoking Status: Former smoker how long ago did patient quit smokin second hand exposure: No alcohol intake: never substance use type: does not use caffeine: Yes Type: coffee Number of servings: 2 and tea what type of physical activity do you participate in: none franci/scientologist: Worship seatbelt use: always do you feel safe at home: Yes ROS ROS ED Constitutional Constitutional ED: Denies chills or fever(s) Eyes Eyes: Denies change in vision ENT ENT ED: Denies sore throat Cardiovascular Cardiovascular: Reports chest pain; Denies palpitations or racing heartbeat Respiratory/Chest Respiratory/Chest: Reports cough; Denies dyspnea Gastrointestinal Gastrointestinal: Denies abdominal pain, diarrhea, nausea or vomiting Genitourinary Genitourinary ED: Denies dysuria Musculoskeletal Musculoskeletal: Denies back pain Integumentary Denies rash Neurologic Neurologic: Denies headache(s) Hematologic/Lymphatic Hematologic/Lymphatic: Reports easy bleeding and easy bruising EXAM Physical Exam Const Vital Signs: 06/17/24 02:36 06/17/24 02:40 06/17/24 02:55 Temperature 97.9 F Temperature Source Oral Pulse Rate 73 Respiratory Rate 15 Respiratory Effort Normal Non-Labored Blood Pressure 132/63 H Blood Pressure Mean 86 Pulse Ox 97 98 Oxygen Delivery Method Room Air Room Air 06/17/24 03:36 06/17/24 04:00 06/17/24 05:00 Temperature Temperature Source Pulse Rate 72 68 69 Respiratory Rate 18 15 18 Respiratory Effort Blood Pressure 118/34 L 121/53 H 126/50 H Blood Pressure Mean 62 75 75 Pulse Ox 100 93 99 Oxygen Delivery Method Room Air Room Air Room Air Positive well nourished and well developed General Appearance ED: well developed; Negative for pallor HEENT HEENT Narrative: No tongue or lip swelling no oral lesions no airway edema or compromise Eyes PERRL and EOMs intact bilaterally General Eye ED: Negative for scleral icterus Neck supple and no JVD Chest Wall Chest Narrative: Patient's had bilateral mastectomies. There is pain on palpation along the left anterior lateral chest wall rib regions 4-6 without obvious bony deformity or crepitus No overlying soft tissue changes to suggest trauma or infection Resp normal respiratory effort Resp Narrative: Breath sounds are diminished throughout with faint expiratory wheeze in the bilateral lower lobes No nasal flaring retractions tachypnea or accessory muscle use Cardio regular rate and regular rhythm Rate: other Other Details: Radial and carotid pulses are equal and symmetric GI normal to inspection, nondistended, normoactive bowel sounds, non-tender, non-distended and no masses GI Narrative: No voluntary guarding no rigidity or pulsatile mass Auscultation: normoactive bowel sounds Palpation: soft Extremity normal to inspection Extremity Narrative: No asymmetric edema no pitting edema negative Homans' sign bilaterally Neuro oriented x3 and CN's II-XII intact bilaterally Sensorium / Orientation: alert Motor Exam: strength 5/5 throughout Psych mental status grossly normal Skin no rashes or lesions noted General Skin Exam: Negative for jaundice or pallor MDM MDM MDM Narrative Medical decision making narrative: Patient arrived to the ER with stable vitals and reported sudden onset of sharp left-sided chest pain without trauma. She has history of coronary artery disease and there is concern for acute coronary syndrome versus cardiac dysrhythmia. She was recently admitted with pneumonia so there is concern for worsening of this versus is spontaneous pneumothorax. Basic blood work is obtained and shows a initial troponin of 44 and delta trending down to a value of 38. Chart review reveals this is near her baseline troponins and therefore this goes against acute coronary syndrome. Her hemoglobin and hematocrit are low at 7.4 and 26 per chart review reveals this is chronic for her and near baseline. Workup shows mild renal insufficiency but chart review reveals this is her baseline as well and there is no clinically significant electrolyte abnormality. As patient could also have potential dissection or pulmonary embolus I did elect to perform a CTA. CTA reveals no PE or dissection and it shows resolution of the recent pneumonia but there is now 25% left-sided pneumothorax without tension. As the pneumothorax is spontaneous I did not feel there was a need for a large size chest tube. I did discuss the case with general surgery on-call Dr. Boyle who agrees that a small chest tube can be placed at this time to drain the air within the chest cavity but there is no need for a large chest tube as this is spontaneous and not secondary to fracture or hemothorax. As the patient will need to be watched to ensure improvement of the pneumothorax and medicine/hospitalist doctor was contacted and she does agree to accept her for further care The patient was cleaned and prepped in sterile fashion with chlorhexidine. 8 mL of 2% lidocaine with epinephrine was then used to anesthetize the skin in local fashion over top of the left mid axillary line rib region 4-5. A 8 Pashto pigtail catheter was then inserted into the chest wall. I was attempting to thread the catheter over top of the rib into the intercostal space. And as I enter the pleural cavity unfortunate there was return of pulsatile dark red blood. The catheter was removed immediately and pressure was held across the chest wall. There was no continued bleeding noted from the site. A ultrasound was then placed over top the chest and there was visualization of a small pericardial effusion. With the misplacement of the pigtail catheter and now small pericardial effusion there is concern for trauma to the pericardium/heart. Secondary to this I did not feel that it was safe to keep the patient at this facility as we do not have cardiothoracic surgery. Therefore I reached out to [facility] and discussed the case with her cardiothoracic surgeon. He states that it is unlikely the heart was pierced as the patient is hemodynamically stable but as this is still a possibility it is in her best interest to come to their facility so he can evaluate the patient and decide if there is need for intervention. The patient is on Plavix and also received aspirin tonight and therefore he does agree with administration of DDAVP. I did inform the cardiothoracic surgeon that I will not attempt a repeat chest tube based on the complication from the initial attempt. He states he agrees with this and can have a performed when the patient arrives to their facility He also recommends the patient receive a repeat CTA as she is hemodynamically stable to try and elicit the exact site of bleeding The patient was informed of the complication and need for transfer and she is agreeable to this History & Record Review Discussion w/independent historian: Patient Lab Data Attestation: I reviewed the patient's lab results. Labs: Laboratory Results - last 24 hr 06/17/24 06/17/24 02:20 05:09 WBC 10.5 RBC 3.34 L Hgb 7.4 L Hct 26.2 L MCV 78.4 L MCH 22.2 L MCHC 28.2 L RDW Std Deviation 48.1 H RDW Coeff of Velasquez 17.0 H Plt Count 337 MPV 9.4 Immature Gran % (Auto) 0.700 Neut % (Auto) 71.8 H Lymph % (Auto) 10.0 L Carbon % (Auto) 13.2 H Eos % (Auto) 3.6 Baso % (Auto) 0.7 Absolute Neuts (auto) 7.5 Absolute Lymphs (auto) 1.05 Nucleated RBC % 0 Sodium 137 Potassium 4.0 Chloride 101 Carbon Dioxide 27.0 Anion Gap 9 BUN 24 H Creatinine 1.43 H Estim Creat Clear Calc 26.64 Est GFR (MDRD) Af Amer 45 L Est GFR (MDRD) Non-Af 37 L BUN/Creatinine Ratio 16.8 Glucose 133 H Calcium 9.1 Magnesium 1.7 Troponin I High Sens 44 38 Radiography Diagnostic Testing: Clinical Impression(s) from Imaging Studies Chest X-Ray 06/17/24 03:02 IMPRESSION: Cardiomegaly with no acute pulmonary disease [facility] Chest CTA 06/17/24 03:20 IMPRESSION: 1. A 25% LEFT LUNG PNEUMOTHORAX without signs of tension. 2. A SOFT TISSUE MASS DENSITY in the left lower lobe. Can not exclude malignancy. 3. CENTRILOBULAR EMPHYSEMATOUS CHANGES. 4. STENT GRAFT at the aortic root. 5. Severe ATHEROSCLEROTIC calcific disease. 6. NO EVIDENCE OF RIB FRACTURE. 7. Nonacute findings detailed above. Reading Location: [facility] Chest x-ray as interpreted by the emergency medicine physician reveals cardiomegaly without infiltrate or pleural effusion but there is question of a small left-sided pneumothorax Discharge Plan Triage Chief Complaint: Chest Pain ED Provider: Brad Howard Dx/Rx/DC Orders Clinical Impression: Spontaneous pneumothorax, Acute pericardial effusion, Chronic anemia, Type 2 diabetes mellitus Primary Care Provider: Daisha Ramirez Disposition Disposition: Acute Care Hospital Discharge Location: [facility]
[2024-06-17 05:47] LABS: Troponin-I HS 38 pg/mL (3.0-54.0)
[2024-06-17] MEDS: Lidocaine 2% /Epi 1:100 (20ml) 20 ML VIAL INFILT (06:00)
[2024-06-17] MEDS: Propofol 200 MG/20 ML Vial IV BOLUS (06:06)
[2024-06-17] MEDS: Midazolam 5 MG/ML Syringe IV (06:10)
[2024-06-17 06:28] LABS: Magnesium 1.7 mg/dL (1.6-2.6)
--- NOTE | 2024-06-17 06:35 | ED.RN ---
During the conscious sedation procedure for this patient, the tube was not in the correct place and required repositioning. However, during the repositioning of the tube, the patient was waking up and more sedation medications were administered to assist with the patient's comfort. When the physician adjusted the tube and removed the needle, blood came out of the tube instead of air. However, due to the patient's deep sedation level, it was difficult to assess how the patient was doing. This RN obtained the portable US machine for the physician at the bedside and called for respiratory therapist to come to the room. Upon reentering the room, the physician requested that the patient would bagged using the Ambu-bag in order to assist in the patient's breathing. The patient's heart rhythm remained constant, the patient's peripheral and central pulses were strong and consistent with the monitor throughout the entire procedure; see vital signs charted during sedation procedure and post procedure. The patient woke up from the sedation medications and is alert and oriented.
--- NOTE | 2024-06-17 06:42 | ED.RN ---
CALLED [facility] @ [phone] THEY WILL CALL BACK TO TALK TO DR LEMA
--- NOTE | 2024-06-17 06:55 | CT_ITS ---
PROCEDURE: CTA CHEST WITH CONTRAST REASON FOR EXAM: UNABLE TO OBTAINED CHEST TUBE PLACEMENT. RIB PAIN. PATIENT FELL ONTO TABLE. TECHNIQUE: Contiguous axial scans of mm slice thicknesses. Sagittal and coronal reconstruction images were obtained. One or more dose reduction techniques were used (e.g., automated exposure control, adjustment of mA and/or kv according to patient size, use of iterative reconstruction technique). IV CONTRAST: ISOVUE 370 100 ML. COMPARISON: EARLIER CTA CHEST STUDY DATED 06/17/2024. FINDINGS: No significant change when compared to the previous study. A 25% left lung pneumothorax without signs of tension. Centrilobular emphysematous changes. Stable soft tissue density in the left lower lobe. Mild pleural thickening in the right lower hemithorax. Cardiac enlargement. No rib fractures are demonstrated. Severe atherosclerotic calcific disease of the aorta and visceral arteries. CT/CTA Chest W/WO Contrast IMPRESSION: 1. Stable left lung pneumothorax 2. No other significant changes are demonstrated in the chest when compared to the earlier study of 06/17/2024. Reading Location: [facility]
--- NOTE | 2024-06-17 07:01 | PN.HOSP_ITS ---
Hospitalist Note ED physician notified Hospitalist service that there may have been complications during CT chest. He contacted [facility] and patient was accepted there and waiting transport. There was some concern for possible vascular damage. He physician notes intent to obtain repeat CTPA and regardless of findings transfer to tertiary facility.
[2024-06-17] MEDS: DESMOPRESSIN ACETATE IV (07:32)
[2024-06-17] MEDS: NORMAL SALINE 0.9% IV (07:32)
[2024-06-17] MEDS: Midazolam 2 MG/2 ML Syringe IV (07:37)
[2024-06-17] MEDS: fentaNYL 100 MCG/2 ML Ampul 25 MCG IV (07:37)
--- NOTE | 2024-06-17 07:50 | RAD_ITS ---
PROCEDURE: CHEST 1 VIEW (PORTABLE) REASON FOR EXAM: Chest tube displacement TECHNIQUE: Frontal view of the chest. COMPARISON: 06/17/2024 at 0346 hours FINDINGS: Left upper lobe pigtail chest tube, partially in the lung cavity. Pigtail uncoiled. Left atrial appendage clip. Heart size is mildly enlarged. The mediastinal contour is unremarkable. Left basilar opacity The bones are unremarkable. RAD/Chest 1 View (Portable) IMPRESSION: 1. Left upper lung chest tube with pigtail uncoiled and near dislodgement 2. Cardiomegaly with left basilar opacity which may represent atelectasis, airs pace disease, and/or pleural effusion Reading Location: [facility]
--- NOTE | 2024-06-17 08:07 | ED.RN ---
Addendum entered by Shaila Butler 06/17/24 09:12: Addendum added due to new critical patient in department and need for documentation from this RN. After patient given medication, oxygen administered via nasal cannula with end tidal included. pts o2 sats decrease to 87% and 5L oxygen administered. end tidal remains 36. Dr. Loving begins set up of sterile procedure of a pigtail chest tube placement. while setting up procedure, life flight crew arrives. pt is moderately sedated and oxygenating well. life flight ELECTRICAL LOGGING ENGINEER comes into patient room and begins to attempt to interview the patient even though she is sedated. ELECTRICAL LOGGING ENGINEER from flight crew begins to remove this rns pulse ox from patients finger. this rn kindly asks the ELECTRICAL LOGGING ENGINEER to replace the pulse ox for need for monitoring during sedation. ELECTRICAL LOGGING ENGINEER re-applies pulse ox. while attempting to apply sterile drape, Dr. Loving asks this RN to pull the plastic from adhesive. ELECTRICAL LOGGING ENGINEER from flight crew attempts to grab sterile drape and help remove plastic from adhesive- dr. loving informs the ELECTRICAL LOGGING ENGINEER that he could do it and to not grab the sterile drape. pt continues to have O2 saturations above 92% and Dr. Loving is attempting to get chest tube in proper place. ELECTRICAL LOGGING ENGINEER continues to attempt to move forward with her assessment. ELECTRICAL LOGGING ENGINEER voices concern that pts o2 sats were decreasing- this rn did not note any below 92%. ELECTRICAL LOGGING ENGINEER attempts to remove pt from nasal cannula with end tidal to place a NRB at 15L O2. this RN lets ELECTRICAL LOGGING ENGINEER know to leave nasal cannula in place due to need for monitoring of end tidal. procedure completed without complication. dr loving applies xeroform vaseline impregnated dressing to site and split gauze after securing chest tube with sutures. dressing taped down by this rn. Original Note: upon attempting to do a procedural sedation for chest tube placement by dr loving, this rn was not able to do the procedural sedation documentation. prior to procedure vitals obtained and charted under pre-procedure documentation. procedure: 25 mcg fentanyl and 2 mg versed given per the verbal order of Dr. Loving via IV push.
== END 2024-06-17 09:12 | disposition short-term general hospital (02) ==
LOC: ED 03:07 → PCU 07:26
PROVIDERS: Family Medicine; Emergency Provider Emergency Medicine; PCP Internal Medicine; Visit Provider Emergency Medicine
DX: J93.83 Other pneumothorax (principal); E11.9 Type 2 diabetes mellitus without complications; J90 Pleural effusion, not elsewhere classified; D64.9 Anemia, unspecified; G47.33 Obstructive sleep apnea (adult) (pediatric); Z86.73 Personal history of transient ischemic attack (TIA), and cerebral infarction without residual deficits; Z95.1 Presence of aortocoronary bypass graft; Z87.891 Personal history of nicotine dependence
CPT/HCPCS: 71045; 71275; 80048; 83735; 84484; 85025; 93005; 96361; 96374; 96375; 99152; 99153; 99285; Q9967; A4216; J2405; J2597

== ENCOUNTER 2024-06-30 02:49 | Emergency (ER) | payer MEDICARE, SELFPAY ==
[2024-06-30] VITALS (8 sets, daily range): BP systolic 126–173; BP diastolic 57–86; PULSE 72–103; RESP 12–22; TEMP 36.7; O2SAT 94–97; BMI 27.2
--- NOTE | 2024-06-30 03:07 | ED.VIS.DYS ---
HPI History of Present Illness Chief Complaint: Shortness of Breath Informant: patient and EMS Narrative Narrative: 83-year-old presenting for dyspnea. She had a pneumothorax and was treated here, transferred to [facility] Because of an accidental iatrogenic pericardial effusion during the initial thoracostomy placement. She has been home for about a week, having had her chest tube removed a day or 2 prior to discharge, and ever since she had dyspnea with exertion that gets better when she rests. However tonight she rested and the dyspnea would not get better which is why she called 911 to come and be evaluated. She denies any chest discomfort like she had when she had the pneumothorax. She has been having back spasms and that preceded the pneumothorax, but it is left mid back, she states that seem to be worse she has been taking tizanidine for that. She denies any leg pain or swelling, no GI symptoms, no syncope or palpitations. [facility] Medical History Bilateral carotid artery stenosis Pulmonary artery hypertension History of diabetes mellitus Anemia History of stress test History of echocardiogram Wears glasses Wears dentures Cancer Walker as ambulation aid High cholesterol PONV (postoperative nausea and vomiting) TIA (transient ischemic attack) History of GI bleed Gastric reflux Chronic cough History of edema Cardiology follow-up encounter Heart murmur Anemia Gastrointestinal bleeding Gastric AVM Duodenal arteriovenous malformation Former smoker Hypertension Anemia Gastrointestinal bleeding, upper Over 65 years old Biliary colic Iron deficiency anemia due to chronic blood loss Coronary artery disease Severe aortic stenosis History of coronary artery disease History of left heart catheterization (LHC) (~07/14/20) Type 2 diabetes mellitus TIA (transient ischemic attack) Nonrheumatic aortic (valve) stenosis Jayson's syndrome Pure hypercholesterolemia Paroxysmal atrial fibrillation Essential hypertension Atherosclerotic heart disease of cahuilla coronary artery without angina pectoris Sleep disorder breathing GERD (gastroesophageal reflux disease) Psoriasis CAD (coronary artery disease) Osteoarthritis Sleep disorder Tobacco abuse [place] (obstructive sleep apnea) Home Medications ?Medication ?Instructions ?Recorded ?Last Taken ?Type ezetimibe 10 mg tablet 10 mg PO QHS cholesterol 09/01/13 06/08/23 History pantoprazole 40 mg tablet,delayed 40 mg PO DAILY gerd 09/01/13 06/09/23 History release nitroglycerin 0.4 mg sublingual 0.4 mg sublingual Q5M PRN Chest 10/05/18 04/12/19 Rx tablet Pain #25 tabs niacin (inositol niacinate) 500 mg 1,000 mg PO BID supplement 04/12/19 06/09/23 History capsule clopidogrel 75 mg tablet 75 mg PO DAILY blood thinner 04/18/21 03/04/24 History metoprolol tartrate 50 mg tablet 50 mg PO Q12H blood pressure 06/09/23 03/07/24 09:00 History potassium chloride 10 mEq 10 meq PO DAILY #30 tabs 06/11/23 Unknown Rx tablet,extended release calcipotriene-betamethasone 0.005 1 applic topical DAILY PRN PSORASIS 03/06/24 Unknown History %-0.064 % topical ointment cholecalciferol (vitamin D3) 50 50 mcg PO DAILY 03/06/24 Unknown History mcg (2,000 unit) tablet (Thera-D) furosemide 40 mg tablet 40 mg PO Q12H 03/06/24 Unknown History cyclobenzaprine 5 mg tablet 5 mg PO TID PRN muscle spasm #30 06/28/24 Unknown Rx tabs tizanidine 4 mg capsule 4 mg PO QHS PRN 06/28/24 Unknown History Allergy/AdvReac Type Severity Reaction Status Date / Time Sulfa (Sulfonamide Allergy Severe HEART Verified 06/28/24 14:57 Antibiotics) RACING Latex, Natural Rubber Allergy Rash, Verified 06/28/24 14:57 psioriasis amoxicillin (From Augmentin) AdvReac Nausea Verified 06/28/24 14:57 atorvastatin (From Lipitor) AdvReac Other Verified 06/28/24 14:57 clavulanic acid (From AdvReac Nausea Verified 06/28/24 14:57 Augmentin) Iodinated Contrast Media AdvReac Other Verified 06/28/24 14:57 (CONTRASTS) lisinopril AdvReac Other Verified 06/28/24 14:57 red dye AdvReac NEEDS Verified 06/28/24 14:57 FOLLOW-UP rosuvastatin (From Crestor) AdvReac Other Verified 06/28/24 14:57 turkey AdvReac Rash Verified 06/28/24 14:57 Family History Mother Heart disease Diabetes Father Heart disease Cancer Sister Cancer COPD (chronic obstructive pulmonary disease) Surgical History S/P insertion of iliac artery stent History of cholecystectomy S/P TAVR (transcatheter aortic valve replacement) History of cardiac catheterization History of esophagogastroduodenoscopy (EGD) Hx of colonoscopy History of heart valve replacement History of tubal ligation History of bilateral carotid endarterectomy History of left mastectomy (~1998) History of right mastectomy (~1998) History of aortic valve replacement with bioprosthetic valve (~09/06/13) History of coronary artery bypass surgery (~09/06/13) Social History household members: none housing: house Smoking Status: Former smoker how long ago did patient quit smokin second hand exposure: No alcohol intake: never substance use type: does not use caffeine: Yes Type: coffee Number of servings: 2 and tea what type of physical activity do you participate in: none franci/mormon: Mandaeism seatbelt use: always do you feel safe at home: Yes EXAM Physical Exam Const Vital Signs: 06/30/24 02:52 06/30/24 02:59 06/30/24 03:35 Temperature 98.0 F Temperature Source Oral Pulse Rate 103 H Respiratory Rate 22 H Respiratory Effort Normal Non-Labored Respiratory Depth Normal Respiratory Pattern Normal Blood Pressure 173/86 H Blood Pressure Mean 115 Pulse Ox 95 97 Oxygen Delivery Method Room Air Room Air Room Air 06/30/24 04:52 06/30/24 06:00 Temperature Temperature Source Pulse Rate 74 72 Respiratory Rate 16 12 Respiratory Effort Respiratory Depth Respiratory Pattern Blood Pressure 153/64 H 137/67 H Blood Pressure Mean 93 90 Pulse Ox 95 96 Oxygen Delivery Method Room Air Room Air MDM MDM MDM Narrative Medical decision making narrative: Given patient's recent history of a spontaneous pneumothorax, I started with 2 view chest inspiration/expiration views, on my interpretation showed no recurrent pneumothorax, but she does have some blunting of the left CVA. I agree with the radiology interpretation. She does not have JVD or hypotension, but also given that she recently had a pericardial injury as well as a hospitalization, I sent her for CTA in order to rule out pulmonary embolus and worsening pericardial effusion. She has a documented possible reaction to iodinated contrast media, however when she was here 2-3 weeks ago, she had CT angiography without reaction and without pretreatment. In the meantime, labs were obtained, they show mildly nonspecifically elevated troponin at 32 but a very high proBNP at 18 494, I reviewed an old echocardiogram showing an ejection fraction of 45%, she is on furosemide 40 mg twice daily so I gave her Lasix 40 mg IV. EKG shows a stable of bundle branch block. I reviewed the CT images as well as the result which I agree with; it shows left greater than right pleural effusions, there is no significant pericardial effusion, there is no pneumothorax, and there are findings consistent with congestive heart failure/right-sided congestion/pulmonary edema., And no pulmonary embolus After the IV Lasix, she definitely states she feels better. Her blood pressure is better 137/67, she is not hypoxic at rest. Her second troponin came back at 36, a little elevated from 32 but less than the delta 6 change. Our new high-sensitivity troponin protocol in this case calls for a third measurement at 4 hours. If the delta is less than 6, it would be inconsistent with acute coronary syndrome/anginal equivalent. I offered admission, the patient states if possible she really does not want to stay and wants to go home. I advised her that if she ambulates without hypoxemia, and her third troponin returns with a delta less than 6, then I would be happy to discharge her home with close outpatient follow-up with cardiology, she used to see Dr. Aponte locally, and if that is the case I would advise her to take her Lasix 40 mg twice daily for the next 2 or 3 days and then go back to her once daily. She states that since she was admitted to the hospital recently, they kept her off of her Lasix and clopidogrel, because she had some bleeding, and she did restart them since she was discharged recently. This may be the reason that she is a little fluid overloaded right now and I think that is probably the cause of her dyspnea. She is comfortable with that overall plan; checked out to oncoming ED physician at shift change to check her repeat troponin at 4 hours. History & Record Review Additional record(s) reviewed:: Prior ED visit and Prior labs Lab Data Attestation: I reviewed the patient's lab results. Labs: Laboratory Results - last 24 hr 06/30/24 06/30/24 03:25 05:45 WBC 10.3 RBC 3.82 L Hgb 8.7 L Hct 31.0 L MCV 81.2 MCH 22.8 L MCHC 28.1 L RDW Std Deviation 54.4 H RDW Coeff of Velasquez 18.6 H Plt Count 444 MPV 9.1 Immature Gran % (Auto) 0.600 Neut % (Auto) 76.1 H Lymph % (Auto) 9.7 L [place] % (Auto) 7.2 Eos % (Auto) 5.5 H Baso % (Auto) 0.9 Absolute Neuts (auto) 7.8 H Absolute Lymphs (auto) 1.00 Nucleated RBC % 0 Sodium 140 Potassium 4.2 Chloride 103 Carbon Dioxide 23.1 Anion Gap 14 BUN 15 Creatinine 1.22 H Estim Creat Clear Calc 30.65 L Est GFR (MDRD) Non-Af 44 L BUN/Creatinine Ratio 12.1 Glucose 157 H Calcium 8.8 Troponin T High Sens 32 H Troponin T Hi Sens 2 Hr 36 [place] [address] H Radiography Diagnostic Testing: Clinical Impression(s) from Imaging Studies Chest X-Ray 06/30/24 03:40 IMPRESSION: Left thoracostomy tube no longer present. No pneumothorax identified. Blunting of the left costophrenic angle now present consistent with small pleural fluid/effusion. Streaky retrocardiac opacity may represent atelectasis. Suggestion of the subtle septal lines especially on the right now seen may represent possible interstitial pulmonary edema, clinically correlate. Reading Location: [id number] Chest CTA 06/30/24 04:18 IMPRESSION: No evidence of filling defect to suggest pulmonary embolism. Status post median sternotomy, aortic valve stent and left atrial appendage closure device again noted. Cardiomegaly. No pericardial effusion. Reflux of contrast into the inferior vena cava and hepatic veins can be seen with degree of right heart dysfunction, nonspecific. Small left larger than right pleural effusions. No pneumothorax. The central airways are patent. Diffuse bronchial wall thickening may represent bronchitis, nonspecific. Septal thickening may represent mild interstitial edema. Mdwi-atvniwr-obes-right base platelike areas of atelectasis which is confluent with the subpleural noncalcified pulmonary nodule in the left lower lobe limiting its evaluation. Correlate with history. No focal consolidation. Enlarged pretracheal node axial 163 again seen. Ectatic thoracic aorta appears unchanged. No dissection identified. Atherosclerotic changes again noted. There is now branching air within the left lobe of the liver most suggestive of pneumobilia, correlate for possible history of sphincterotomy. One or more dose reduction techniques were used (e.g., Automated exposure control, adjustment of the mA and/or kV according to patient size, use of iterative reconstruction technique). Reading Location: [facility] Rhythm Strip Rhythm Strip: Sinus Rhythm Rate: 90 Ectopy: None EKG Initial EKG: Attestation: I personally reviewed and interpreted this EKG as follows: Interpretation: Sinus Rhythm, No Acute Injury Pattern and LBBB Prior EKG tracings: available for review Prior: Unchanged Discharge Plan Triage Chief Complaint: Shortness of Breath ED Provider: Blayne Zapata Dx/Rx/DC Orders Clinical Impression: Acute on chronic heart failure with preserved ejection fraction, Pleural effusion, left Instructions: ED Heart Failure, Congestive (CHF) Prescriptions: Continued nitroglycerin 0.4 mg tablet, sublingual 0.4 mg SUBLINGUAL Q5M PRN (Reason: Chest Pain) Qty: 25 1RF tizanidine 4 mg capsule 4 mg PO QHS PRN cyclobenzaprine 5 mg tablet 5 mg PO TID PRN (Reason: muscle spasm) Qty: 30 0RF pantoprazole 40 MG tablet 40 mg PO DAILY Patient Comments: stomach acid ezetimibe 10 MG tablet 10 mg PO QHS Patient Comments: cholesterol niacin (inositol niacinate) 500 MG capsule 1,000 mg PO BID clopidogrel 75 mg tablet 75 mg PO DAILY Patient Comments: ON HOLD, FOR EGD 03/07 metoprolol tartrate 50 mg tablet 50 mg PO Q12H Patient Comments: TAKE 1 TABLET BY MOUTH TWICE A DAY potassium chloride 10 mEq tablet extended release 10 meq PO DAILY Qty: 30 0RF calcipotriene-betamethasone 0.005-0.064 % ointment 1 applic topical DAILY PRN (Reason: PSORASIS) cholecalciferol (vitamin D3) [Thera-D] 50 mcg (2,000 unit) tablet 50 mcg PO DAILY furosemide 40 mg Tablet 40 mg PO Q12H Primary Care Provider: Daisha Ramirez Referrals: Daisha Ramirez DO [Primary Care Provider] - Donnie Carbajal MD [Med Staff - Active Staff] - As soon as possible Activity Restrictions/Additional Instructions: If you have been taking your Lasix just in the mornings, take it twice daily for the next 2 to 3 days, then go back to once daily until you see cardiology in follow-up. Print Language: Icelandic
[2024-06-30 03:37] LABS: Absolute Neutrophil Count 7.8 X10^3/uL (2.0-7.7); Basophil# 0.09 X10^3/uL; Basophil% 0.9 % (0-1); Eosinophil# 0.56 X10^3/uL; Eosinophils% 5.5 % (0-5); Hemoglobin 8.7 g/dL (12.0-15.0); Lymphocyte % 9.7 % (19-41); Mean Corp Hgb Conc 28.1 g/dL (32-36); Mean Corpuscular Hgb 22.8 pg (27.0-32.0); Mean Corpuscular Volume 81.2 fL (81-99); Mean Platelet Vol. 9.1 fl (6.2-12.0); Monocyte# 0.74 X10^3/uL; Monocyte% 7.2 % (0-10); NRBC Flagged by Analyzer 0 % (0-5); Neutrophil # 7.81 X10^3/uL (2.7-7.7); Neutrophil % 76.1 % (47-70); Platelet Count 444 K/mm3 (150-450); RBC Distribution Width CV 18.6 % (11.6-14.6); RBC Distribution Width SD 54.4 fl (35.1-43.9); Red Blood Count 3.82 M/mm3 (4.2-5.4); White Blood Count 10.3 K/mm3 (4.4-11.0)
--- NOTE | 2024-06-30 03:40 | RAD_ITS ---
PROCEDURE: CHEST INSP/EXP 2 VIEW REASON FOR EXAM: Shortness of breath, recent thoracostomy removal on the left TECHNIQUE: AP view of the chest with inspiration and expiration, 2 images COMPARISON: 06/17/2024 FINDINGS: Left thoracostomy tube no longer present. No pneumothorax identified. No evidence of air trapping. Blunting of the left costophrenic angle now present consistent with small pleural fluid/effusion. Streaky retrocardiac opacity may represent atelectasis. Suggestion of the subtle septal lines especially on the right now seen may represent possible interstitial pulmonary edema, clinically correlate. Status post median sternotomy, aortic valve replacement/stent, left atrial appendage closure device and bilateral chest wall surgical clips again noted. Cardiac silhouette not significantly changed in appearance. Atherosclerotic calcifications of the aortic arch again noted. RAD/Chest Insp/Exp 2 View IMPRESSION: Left thoracostomy tube no longer present. No pneumothorax identified. Blunting of the left costophrenic angle now present consistent with small pleur al fluid/effusion. Streaky retrocardiac opacity may represent atelectasis. Suggestion of the subtle septal lines especially on the right now seen may repr esent possible interstitial pulmonary edema, clinically correlate. Reading Location: [id number]
[2024-06-30 03:54] LABS: Anion Gap 14 (5-15); BUN 15 mg/dL (4-19); BUN/Creat Ratio 12.1 RATIO (10-20); Calcium,Total 8.8 mg/dL (7.6-11.0); Carbon Dioxide 23.1 mmol/L (21.0-32.0); Chloride 103 mmol/L (98-108); Creatinine, Serum 1.22 mg/dL (0.70-1.20); EST Glomerular Filtration Rate 44 (>60); Estimated Creatinine Clearance 30.65 ml/min (50-250); Glucose 157 mg/dL (70-99); Potassium 4.2 mmol/L (3.3-5.1); Sodium Level 140 mmol/L (133-145)
[2024-06-30 04:17] LABS: Pro- Brain NATRIURETIC PEPTIDE 18494 pg/mL (<=1800); Troponin T High Sensitivity 32 ng/L (<=14)
--- NOTE | 2024-06-30 04:18 | CT_ITS ---
PROCEDURE: CTA CHEST W/WO CONTRAST REASON FOR EXAM: Shortness of breath, recent pericardial injury/thoracostomy TECHNIQUE: CTA imaging of the chest with intravenous contrast. 3D reconstructions. Coronal and sagittal reformatted and MIP images CONTRAST: 75 cc Isovue 370 COMPARISON: 06/17/2024 FINDINGS: Increased thoracic kyphosis is again noted. No evidence of filling defect to suggest pulmonary embolism. Status post median sternotomy, aortic valve stent and left atrial appendage closure device again noted. Cardiomegaly. No pericardial effusion. Reflux of contrast into the inferior vena cava and hepatic veins can be seen with degree of right heart dysfunction, nonspecific. Small left larger than right pleural effusions. No pneumothorax. The central airways are patent. Diffuse bronchial wall thickening may represent bronchitis, nonspecific. Septal thickening may represent mild interstitial edema. Orli-jlesbyw-wuip-right base platelike areas of atelectasis which is confluent with the subpleural noncalcified pulmonary nodule in the left lower lobe limiting its evaluation. Correlate with history. No focal consolidation. Enlarged pretracheal node axial 163 again seen. Ectatic thoracic aorta appears unchanged. No dissection identified. Atherosclerotic changes again noted. There is now branching air within the left lobe of the liver most suggestive of pneumobilia, correlate for possible history of sphincterotomy. CT/CTA Chest W/WO Contrast IMPRESSION: No evidence of filling defect to suggest pulmonary embolism. Status post median sternotomy, aortic valve stent and left atrial appendage olive sure device again noted. Cardiomegaly. No pericardial effusion. Reflux of contrast into the inferior vena cava and hepatic veins can be seen wi th degree of right heart dysfunction, nonspecific. Small left larger than right pleural effusions. No pneumothorax. The central airways are patent. Diffuse bronchial wall thickening may represen t bronchitis, nonspecific. Septal thickening may represent mild interstitial edema. Ywkz-fgepesk-cdwh-right base platelike areas of atelectasis which is confluent with the subpleural noncalcified pulmonary nodule in the left lower lobe limiting its evaluation. Correlate with history. No fo nicolás consolidation. Enlarged pretracheal node axial 163 again seen. Ectatic thoracic aorta appears unchanged. No dissection identified. Atheroscler otic changes again noted. There is now branching air within the left lobe of the liver most suggestive of pneumobilia, correlate for possible history of sphincterotomy. One or more dose reduction techniques were used (e.g., Automated exposure contr ol, adjustment of the mA and/or kV according to patient size, use of iterative reconstruction technique). Reading Location: [id number]
[2024-06-30] MEDS: Furosemide 40 MG/4 ML Vial IV (05:11)
[2024-06-30 06:29] LABS: Troponin T High Sens 2 HR 36 ng/L (<=14)
[2024-06-30 08:45] LABS: Troponin T High Sens 4 HR 38 ng/L (<=14)
== END 2024-06-30 09:18 | disposition home or self-care (01) ==
PROVIDERS: Emergency Provider Emergency Medicine; PCP Internal Medicine; Visit Provider Emergency Medicine
DX: I11.0 Hypertensive heart disease with heart failure (principal); I50.33 Acute on chronic diastolic (congestive) heart failure; E11.9 Type 2 diabetes mellitus without complications; I25.10 Atherosclerotic heart disease of native coronary artery without angina pectoris; E78.00 Pure hypercholesterolemia, unspecified; I45.4 Nonspecific intraventricular block; Z87.891 Personal history of nicotine dependence; J90 Pleural effusion, not elsewhere classified; Z86.73 Personal history of transient ischemic attack (TIA), and cerebral infarction without residual deficits; G47.33 Obstructive sleep apnea (adult) (pediatric); Z90.49 Acquired absence of other specified parts of digestive tract; Z98.51 Tubal ligation status; Z95.1 Presence of aortocoronary bypass graft; Z95.3 Presence of xenogenic heart valve
CPT/HCPCS: 71046; 71275; 80048; 83880; 84484; 85025; 93005; 96374; 99285; Q9967; A4216; J1940

== ENCOUNTER 2024-08-02 13:00 | Outpatient (RCR) | payer MEDICARE, SELFPAY ==
--- NOTE | 2024-07-03 15:42 | HP.PTEVAL_ITS ---
Patient's Visit Information Visit Information Visit Information: SAMMY SOLOMON is a 83 year old F referred to Physical Therapy by SHELLEY Skaggs with a diagnosis of Thoracic back pain. Date of Evaluation: 07/03/24 Physical Therapist: David Ma, MONTRELLT, OCS, CSCS Visit Plan Frequency: 2x /Week Duration: 4-6 Weeks Plan: Seems muscular in scapular thoracic area and needs more movement and strength to this area. 2x/week for 4 weeks for 1. MH and STM/DTR to thoracic paraspinals 2. scapular and spinal ROM exerciss to HEP 3. core and general strength to HEP May use ball DTR technique on thoracic and scap mm and teach to patient IE HEP: scapualr circles 20x, slouch overcorrect 20x, chair thoracic rotation 20x all 3x/day Subjective Subjective: LBP intermittently, started back in early May. She had PT for her shoulder and while doing exercises at [facility] and flared up back. 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 No other treatment for LB except tylenol and uses heating pad. Tylenol helps for a bit. x rays show degenerated back. Worse with walking and better with sitting. Legs are OK, they cramp up soemtimes which wakes her up and she feels is related to her back pain. Not employed. Spends day doing very little. Lives alone in trailer with railing but will build ramp. Basic ADLs: all I. Worse pain vasquez. Exercises: none Hobbbies: TV Pain LBP: Pain Intensity (Out of 10): 2 Pain Intensity Range: 0 and 9 Objective Objective: psoriasis on low back. Tender to palpation R > L mid thoracic parapsin als and into lower rhomboids and trap. Kyphotic thoracic spine structurally with stiff scapula and limited thoracic rotation adn ext continuing into lumbar area. spinal multisegmental AROM ext max limited and painful mid thoracic and lumbar, SB max deficits and painful ipsilaterally thoracic, flexion min limited adn weakness recovering with pain and preferring to use UE. reflexes 1/3 patella and achilles B Sensation LE WNL to gross light touch in B LE. Strength hips 3/5, core 3/5, knees 3+/5 ext adn flexion, ankles 4-/5, no myotomal abnormalities. Slight pain with UE flexion testing in LB. Balance/Special Test Scores Functional Gait Assessment Score: 21 % Disability: 30.0000 Oswestry Low Back Score: 27 Goals Goal 1:: Back pain 1/10 at worst and 80% better. Goal Time Frame: 4-6 Weeks Goal 2:: I appropriate HEP to limit future problems(spinal core strength adn ROM) Goal Time Frame: 4-6 Weeks Goal 3:: sleep without waking at night due to pain/cramping Goal Time Frame: 4-6 Weeks Goal 4:: 15 or less oswestry Goal Time Frame: 4-6 Weeks Rehabilitation Potential Physical Therapy Diagnosis: back pain, stiffness and weakness limiting comfortable function. Rehabilitation Potential: Good Anticipated Interventions Patient/Client Instruction: Educate patient on: Condition and Plan of Care For the Purpose of:: To decrease pain, To increase ROM, To improve muscle performance and motor function, To increase tolerance to activity/condition/position and To improve health of tissue Therapeutic Exercise to Include: Strength training, Postural training, Flexibilty training, Relaxation training, Passive ROM and Active ROM For the Purpose of:: To decrease pain, To increase ROM, To improve nutrient delivery to tissue, To improve muscle performance and motor function, To increase tolerance to activity/condition/position, To improve ability of physical actions for home/community/work/leisure and To improve gait and locomotor functions Manual Therapy Techniques to Include: Trigger point massage, Mobilization, Passive ROM and Soft tissue mobilization For the Purpose of:: To decrease pain, To increase ROM, To improve nutrient delivery to tissue, To improve muscle performance and motor function and To increase tolerance to activity/condition/position Thermo therapy (hot pack): Yes For the Purpose of:: To decrease pain and To improve nutrient delivery to tissue Text: Thank you for the opportunity to evaluate your patient. For Medicare and Medicare HMO plans, please review the plan of care and approve it. It will need to be FAXED BACK to us at [phone] for Medicare purposes. For Medicare only, by signing this I certify the plan of care. Please let me know if there are questions or concerns regarding this plan of car e. Physician Signature: Date:
--- NOTE | 2024-08-02 13:14 | HP.PTDCSUM ---
Discharge Summary D/C summary: It has been my pleasure to treat SAMMY SOLOMON referred by SHELLEY Skaggs, with the diagnosis of Thoracic back pain for a total of 9 visit(s). Discharge Date: 08/02/24 Please see the following information for a summary of their discharge status. Subjective Subjective: Overall is having much less frequent episodes. last one yesterday. Has not had to take tylenol. Was moving a chair yesterday and it hurt back short lived and heat on helps within 10 minutes. Much improvement in the last week. Will see edgardo next week. No f/u with ortho. Pain LBP: Pain Intensity (Out of 10): 0 Overall Improvement % Improvement: 90 Objective Objective/Function: Lumbar ext is max limited, flexion min limited, SB B mod limited. slight pain with extension trasnintly. Walking normally at this point. Goals Goal 1:: Back pain 1/10 at worst and 80% better. Goal Progress: Progressing Goal 2:: I appropriate HEP to limit future problems(spinal core strength adn ROM) Goal Progress: Goal Met Goal 3:: sleep without waking at night due to pain/cramping Goal Progress: Goal Met Goal 4:: 15 or less oswestry Goal Progress: Progressing Plan Plan: d/c D/C Information d/c sentence: If there are questions or concerns regarding this patient's physical therapy, please feel free to call me at [phone]. Thank you for the referral of this patient. Sincerely, David Ma, DPT, OCS, CSCS Balance/Gait/Functional tests Balance/Special Test Scores Functional Gait Assessment Score: 21 % Disability: 30.0000 Oswestry Low Back Score: 17 Improvement % Improvement: 90
== END 2024-08-02 19:00 | disposition home or self-care (01) ==
LOC: PT 13:00
PROVIDERS: PCP Internal Medicine; Visit Provider Student in an Organized Health Care Education/Training Program
DX: S23.9XXD Sprain of unspecified parts of thorax, subsequent encounter (principal); M54.6 Pain in thoracic spine
CPT/HCPCS: 97110; 97140; 97161; 97164

== ENCOUNTER → 2024-09-05 | Outpatient (CLI) | payer MEDICARE, SELFPAY ==
--- NOTE | 2024-09-05 13:44 | ECHOD_ITS ---
Reason For Study Reason For Study: PROSTHETIC HEART VALVE Procedure This was a 2D Doppler, Color Flow transthoracic echocardiogram. Exam performed in department. Left Ventricle Normal LV size. Moderate concentric left ventricular hypertrophy. The left ventricular ejection fraction is 40 %. Moderate segmental systolic dysfunction (see wall motion). There are regional wall motion abnormalities as specified. Right Ventricle Normal RV size. Normal systolic function. Atria Normal left atrium. Normal right atrium. Mitral Valve There is mild to moderate mitral annular calcification. Mild-Moderate (1-2+) eccentric mitral valve insufficiency. Tricuspid Valve Normal tricuspid valve. Mild to moderate (1-2+) tricuspid valve insufficiency. Pulmonary artery systolic pressure is 54 mmHg. Aortic Valve Peak aortic valve gradient 32 mmHg. Mean aortic valve gradient 18 mmHg. Bioprosthetic aortic valve. Pulmonic Valve Normal pulmonic valve. Great Vessels Mildly calcified aortic root. The pulmonary artery is normal size. Inferior vena cava collapse with sniff. Pericardium/Pleural No pericardial effusion. MMode/2D Measurements & Calculations LVIDd: 4.4 cm IVSd: 1.6 cm LVOT diam: 1.8 cm LVIDs: 3.4 cm LVPWd: 1.5 cm LVOT area: 2.6 cm2 RVDd: 3.6 cm FS: 23.4 % Ao root diam: 3.1 cm LAV(MOD-bp): 58.8 ml LVAd ap4: 29.0 cm2 LAV(MOD-bp) Indexed: 36.4 ml/m2 LVLd ap4: 7.1 cm LAV(MOD-sp2): 56.5 ml EDV(MOD-sp4): 95.5 ml LAV(MOD-sp4): 61.2 ml EDV(sp4-el): 100.9 ml LVAs ap4: 19.9 cm2 LVLs ap4: 5.9 cm ESV(MOD-sp4): 53.8 ml ESV(sp4-el): 57.0 ml EF(MOD-sp4): 43.7 % EF(sp4-el): 43.5 % LVAd ap2: 33.9 cm2 SV(MOD-sp4): 41.8 ml SV(MOD-sp2): 43.5 ml LVLd ap2: 7.7 cm SI(MOD-sp4): 25.9 ml/m2 SI(MOD-sp2): 26.9 ml/m2 EDV(MOD-sp2): 123.0 ml EDV(sp2-el): 125.7 ml LVAs ap2: 26.1 cm2 LVLs ap2: 7.1 cm ESV(MOD-sp2): 79.5 ml ESV(sp2-el): 81.7 ml EF(MOD-sp2): 35.4 % SV(sp4-el): 43.9 ml LA dimension(2D): 4.2 cm LA A4 area: 20.0 cm2 RA A4 area: 18.0 cm2 TAPSE: 1.3 cm Time Measurements MV dec time: 0.26 sec Doppler Measurements & Calculations MV E max andrews: 158.0 cm/sec Lat Peak E' Andrews: 9.2 cm/sec Med Peak E' Andrews: 3.6 cm/sec MV A max andrews: 90.9 cm/sec E/E' lat: 17.2 E/E' med: 43.4 MV E/A: 1.7 MV V2 max: 180.0 cm/sec MV P1/2t max andrews: 184.4 cm/sec Ao V2 max: 284.4 cm/sec MV max P.0 mmHg MV P1/2t: 73.1 msec Ao max P.4 mmHg MV V2 mean: 110.5 cm/sec Ao V2 mean: 201.3 cm/sec MV mean P.4 mmHg MV dec slope: 739.4 cm/sec2 Ao mean P.0 mmHg MV V2 VTI: 36.6 cm MVA(P1/2t): 3.0 cm2 Ao V2 VTI: 63.3 cm AV (velocity ratio): 0.59 MVA(VTI): 2.6 cm2 MILES(I,D): 1.5 cm2 MILES(V,D): 1.5 cm2 LV V1 max: 163.7 cm/sec SV(LVOT): 96.2 ml PA V2 max: 104.1 cm/sec LV V1 max P.0 mmHg LV V1 mean P.3 mmHg LV V1 mean: 116.9 cm/sec LV V1 VTI: 37.6 cm TR max andrews: 349.6 cm/sec TR max P.9 mmHg ECHO/Echo Complete Interpretation Summary Normal LV size. The left ventricular ejection fraction is 40 %. Moderate concentric left ventricular hypertrophy. Moderate segmental systolic dysfunction (see wall motion). There are regional wall motion abnormalities as specified. Bioprosthetic aortic valve. Mean aortic valve gradient 18 mmHg. Ordering Physician: Donnie Carbajal Referring Physician: CELE OLVERA Performed By: Heather Mckeon RDCS
== END | disposition home or self-care (01) ==
LOC: CVS 13:44
PROVIDERS: PCP Internal Medicine; Referring Provider Internal Medicine Cardiovascular Disease; Visit Provider Internal Medicine Cardiovascular Disease
DX: I50.33 Acute on chronic diastolic (congestive) heart failure (principal)
CPT/HCPCS: 93306

== ENCOUNTER → 2024-09-24 | Outpatient (CLI) | payer MEDICARE, SELFPAY ==
--- NOTE | 2024-09-24 16:40 | RAD_ITS ---
PROCEDURE: CHEST PA AND LATERAL 09/24/2024 REASON FOR EXAM: PLEURAL EFFUSION TECHNIQUE: Frontal and lateral views of the chest. COMPARISON: 06/30/2024. FINDINGS: Unchanged emphysema. Mild left pleural effusion. Blunting of the right costophrenic angle, probably adhesions. Enlarged cardiac silhouette. Normal mediastinum and erasmo. Normal visualized pulmonary arteries. Atheromatous plaques of the visualized aortic arch and descending thoracic aorta. Diffuse spondylosis of the visualized thoracic spine. Normal visualized ribs, clavicles. Degenerative joint disease. There is no demonstrated abnormality of the visualized soft tissue structures of the upper abdomen. RAD/Chest PA and Lateral IMPRESSION: Unchanged emphysema. Mild left pleural effusion. Blunting of the right costophrenic angle, probably adhesions. Enlarged cardiac silhouette. Reading [facility]
--- NOTE | 2024-09-24 16:40 | RAD_ITS ---
PROCEDURE: THORACIC SPINE 2 VIEWS 09/24/2024 REASON FOR EXAM: THORACIC BACK PAIN TECHNIQUE: Single 2 view of the thoracic spine COMPARISON: None. FINDINGS: Osteopenia of the visualized bones. Mild benign chronic compression deformities of the midthoracic vertebral bodies. Secondary increase in the degree of dorsal kyphosis with exaggerated lumbar lordosis. There are diffuse spondylotic changes. Findings are demonstrated to by diffuse disc space narrowing, osteophyte formation and degenerative endplate sclerosis. There is diffuse facet joint arthropathy with secondary bilateral neural foramina narrowing. No fracture or dislocation is seen. No aggressive lytic or blastic bony lesion is noted. Left pleural effusion/atelectasis. Metallic clips of the chest wall. Unchanged cardiomegaly. RAD/Thoracic Spine 2 Views IMPRESSION: No evidence for acute abnormality. Reading [facility]
--- NOTE | 2024-09-24 16:41 | RAD_ITS ---
PROCEDURE: SPECIAL CXR (OBL/DECUB/A/L) 09/24/2024 REASON FOR EXAM: PLEURAL EFFUSION, RIGHT DECUB TECHNIQUE: 1 views of the chest. COMPARISON: 06/30/2024. FINDINGS: Unremarkable median sternotomy wires. Blunting of the right costophrenic angle which is probably secondary to adhesions. No significant free flowing right pleural effusion is identified on the right decubitus view. Unchanged blunting of the left costophrenic angle. Enlarged cardiac silhouette. Normal mediastinum and erasmo. Normal visualized pulmonary arteries. Atheromatous plaques of the visualized aortic arch and descending thoracic aorta. Diffuse spondylosis of the visualized thoracic spine. Normal visualized ribs, clavicles. Degenerative joint disease. There is no demonstrated abnormality of the visualized soft tissue structures of the upper abdomen. Metallic clips are again noted overlying the left chest wall. RAD/Special CXR (Obl/Decub/A/L) IMPRESSION: Unremarkable median sternotomy wires. Blunting of the right costophrenic angle which is probably secondary to adhesio ns. No significant free flowing right pleural effusion is identified on the right d ecubitus view. Unchanged blunting of the left costophrenic angle. Enlarged cardiac silhouette. Reading Location: [facility]
--- NOTE | 2024-09-24 16:41 | RAD_ITS ---
PROCEDURE: SPECIAL CXR (OBL/DECUB/A/L) 09/24/2024 REASON FOR EXAM: PLEURAL EFFUSION, LEFT DECUB TECHNIQUE: 1 views of the chest. COMPARISON: 06/30/2024. FINDINGS: Mild free-flowing left pleural effusion is noted on the left decubitus view. Blunting of the right costophrenic angle, probably adhesions. Emphysema. Unremarkable median sternotomy wires. Enlarged cardiac silhouette. Normal mediastinum and erasmo. Normal visualized pulmonary arteries. Atheromatous plaques of the visualized aortic arch and descending thoracic aorta. Diffuse spondylosis of the visualized thoracic spine. Normal visualized ribs, clavicles. Degenerative joint disease. There is no demonstrated abnormality of the visualized soft tissue structures of the upper abdomen. RAD/Special CXR (Obl/Decub/A/L) IMPRESSION: Mild free-flowing left pleural effusion is noted on the left decubitus view. Blunting of the right costophrenic angle, probably adhesions. Emphysema. Unremarkable median sternotomy wires. Enlarged cardiac silhouette. [facility]
== END | disposition home or self-care (01) ==
LOC: MTRAD 16:38
PROVIDERS: PCP Internal Medicine; Referring Provider Internal Medicine; Visit Provider Internal Medicine
DX: J90 Pleural effusion, not elsewhere classified (principal); M54.6 Pain in thoracic spine
CPT/HCPCS: 71046; 72070

== ENCOUNTER 2024-09-25 01:29 | Emergency (ER) | payer MEDICARE, SELFPAY ==
[2024-09-25 01:30] VITALS: BP 151/59; PULSE 102; RESP 25; TEMP 36.8; O2SAT 93; BMI 27.6
--- NOTE | 2024-09-25 01:34 | EKG12_ITS ---
Test Reason : CP Blood Pressure : */* mmHG Vent. Rate : 101 BPM Atrial Rate : 101 BPM P-R Int : 184 ms QRS Dur : 150 ms QT Int : 382 ms P-R-T Axes : 85 -28 126 degrees QTcB Int : 495 ms Sinus tachycardia with Premature atrial complexes Left bundle branch block Abnormal ECG Confirmed by CHRISTINA DELGADILLO, JANE ([id number]), metropolitan editor CHRISTIN BARTHOLOMEW ([id number]) on 10/01/2024 7:03:16 AM Referred By: Confirmed By: JANE VASQUEZ MD
--- NOTE | 2024-09-25 01:39 | ED.VIS.CHEST ---
HPI History of Present Illness Chief Complaint: Palpitations [facility] Medical History Acute hypoxic respiratory failure Pericardial effusion Bilateral carotid artery stenosis Pulmonary artery hypertension History of diabetes mellitus Anemia History of stress test History of echocardiogram Wears glasses Wears dentures Cancer Walker as ambulation aid High cholesterol PONV (postoperative nausea and vomiting) TIA (transient ischemic attack) History of GI bleed Gastric reflux Chronic cough History of edema Cardiology follow-up encounter Heart murmur Anemia Gastrointestinal bleeding Gastric AVM Duodenal arteriovenous malformation Former smoker Hypertension Anemia Gastrointestinal bleeding, upper Over 65 years old Biliary colic Iron deficiency anemia due to chronic blood loss Coronary artery disease Severe aortic stenosis History of coronary artery disease History of left heart catheterization (LHC) (~07/14/20) Type 2 diabetes mellitus TIA (transient ischemic attack) Nonrheumatic aortic (valve) stenosis Jayson's syndrome Pure hypercholesterolemia Paroxysmal atrial fibrillation Essential hypertension Atherosclerotic heart disease of burns [place] coronary artery without angina pectoris Sleep disorder breathing GERD (gastroesophageal reflux disease) Psoriasis CAD (coronary artery disease) Osteoarthritis Sleep disorder Tobacco abuse [place] (obstructive sleep apnea) Home Medications ?Medication ?Instructions ?Recorded ?Last Taken ?Type ezetimibe 10 mg tablet 10 mg PO QHS cholesterol 09/01/13 06/08/23 History pantoprazole 40 mg tablet,delayed 40 mg PO DAILY gerd 09/01/13 06/09/23 History release nitroglycerin 0.4 mg sublingual 0.4 mg sublingual Q5M PRN Chest 10/05/18 04/12/19 Rx tablet Pain #25 tabs clopidogrel 75 mg tablet 75 mg PO DAILY blood thinner 04/18/21 03/04/24 History metoprolol tartrate 50 mg tablet 50 mg PO Q12H blood pressure 06/09/23 03/07/24 09:00 History potassium chloride 10 mEq 10 meq PO DAILY #30 tabs 06/11/23 Unknown Rx tablet,extended release calcipotriene-betamethasone 0.005 1 applic topical DAILY PRN PSORASIS 03/06/24 Unknown History %-0.064 % topical ointment cholecalciferol (vitamin D3) 50 50 mcg PO DAILY 03/06/24 Unknown History mcg (2,000 unit) tablet (Thera-D) cyclobenzaprine 5 mg tablet 5 mg PO TID PRN muscle spasm #30 06/28/24 Unknown Rx tabs tizanidine 4 mg capsule 4 mg PO QHS PRN 06/28/24 Unknown History acetaminophen 500 mg tablet 500 mg PO Q6H PRN 07/20/24 Unknown History (Tylenol Extra Strength) furosemide 40 mg tablet 40 mg PO QAM 07/20/24 Unknown History iron,carbonyl 65 mg-vitamin C 125 1 tab PO QDAY 07/20/24 Unknown History mg tablet,delayed release (Vitron-C) lorazepam 0.5 mg tablet (Ativan) 0.5 mg PO QDAY PRN 07/20/24 Unknown History sertraline 25 mg tablet 25 mg PO BID 07/20/24 Unknown History Allergy/AdvReac Type Severity Reaction Status Date / Time Sulfa (Sulfonamide Allergy Severe HEART Verified 08/13/24 14:29 Antibiotics) RACING Latex, Natural Rubber Allergy Rash, Verified 08/13/24 14:29 psioriasis amoxicillin (From Augmentin) AdvReac Nausea Verified 08/13/24 14:29 atorvastatin (From Lipitor) AdvReac Other Verified 08/13/24 14:29 clavulanic acid (From AdvReac Nausea Verified 08/13/24 14:29 Augmentin) Iodinated Contrast Media AdvReac Other Verified 08/13/24 14:29 (CONTRASTS) lisinopril AdvReac Other Verified 08/13/24 14:29 red dye AdvReac NEEDS Verified 08/13/24 14:29 FOLLOW-UP rosuvastatin (From Crestor) AdvReac Other Verified 08/13/24 14:29 turkey AdvReac Rash Verified 08/13/24 14:29 Family History Mother Heart disease Diabetes Breast cancer Hypertension Father Heart disease Cancer Sister Cancer COPD (chronic obstructive pulmonary disease) Surgical History S/P insertion of iliac artery stent History of cholecystectomy S/P TAVR (transcatheter aortic valve replacement) History of cardiac catheterization History of esophagogastroduodenoscopy (EGD) Hx of colonoscopy History of heart valve replacement History of tubal ligation History of bilateral carotid endarterectomy History of left mastectomy (~1998) History of right mastectomy (~1998) History of aortic valve replacement with bioprosthetic valve (~09/06/13) History of coronary artery bypass surgery (~09/06/13) Social History household members: none housing: house Smoking Status: Former smoker how long ago did patient quit smokin second hand exposure: No alcohol intake: never substance use type: does not use caffeine: Yes Type: coffee Number of servings: 2 and tea what type of physical activity do you participate in: none franci/christianity: Advent seatbelt use: always do you feel safe at home: Yes EXAM Physical Exam Const Vital Signs: 09/25/24 01:30 09/25/24 02:29 09/25/24 02:29 Temperature 98.3 F Temperature Source Oral Pulse Rate 102 H 93 Respiratory Rate 25 H 18 Blood Pressure 151/59 H 148/62 H Blood Pressure Mean 89 90 Pulse Ox 93 91 Oxygen Delivery Method Room Air Room Air Room Air 09/25/24 03:00 09/25/24 04:00 Temperature Temperature Source Pulse Rate 97 93 Respiratory Rate 17 17 Blood Pressure 162/79 H 136/60 H Blood Pressure Mean 106 85 Pulse Ox 97 Oxygen Delivery Method Room Air Room Air MDM MDM MDM Narrative Medical decision making narrative: HISTORY OF PRESENT ILLNESS: Chief complaint: Palpitations 84-year-old female presents with palpitation, shortness of breath. Notes symptoms have been intermittent. The patient further states she has had increased dyspnea on exertion for last several days. Denies chest pain. Denies vomiting. Denies cough fever or chills. Denies new lower extremity swelling or weight gain. Denies orthopnea or paroxysmal nocturnal dyspnea. Denies bleeding diathesis. The patient denies recent surgery in the last 4 weeks or immobilization in the last 3 days, denies previous diagnosis of DVT or PE, hemoptysis, unilateral leg swelling or malignancy with treatment the last 6 months or palliative. No estrogen use noted. REVIEW OF SYSTEMS: Pertinent positives: Shortness of breath, palpitations, dyspnea on exertion Pertinent negatives: Orthopnea, chest pain, syncope PHYSICAL EXAM: Nursing triage notes reviewed, Vital signs reviewed Constitutional: please see mdm HENT: MMM Eyes: Pupils equal round and reactive to light, Extraocular muscles intact Neck: No stridor, no JVD, full neck ROM Lungs: Clear to auscultation, No wheezing or rales. No increased work of breathing, no conversational dyspnea, no accessory muscle use, no nasal flaring. No respiratory distress noted Heart: Regular rate and rhythm, No murmurs, No rubs and No gallops, 2+ distal pulses (radial, femoral, posterior tibial) in all extremities Abdomen: Soft, there is no tenderness, rigidity, rebound or guarding, no obvious peritoneal signs, no palpable pulsatile abdominal masses, no auscultated abdominal bruit : No CVAT Extremities: 1+ pitting edema bilateral Neuro: No new focal neurological deficits, cranial nerves II through XII intact, 5/5 strength in all present extremities. Intact sensation to light touch in all present extremities, 2+ reflexes bilateral patella tendons. Skin: No rash or lesions noted MEDICAL DECISION MAKING: Chief Complaint: please see HPI External records reviewed: Factors affecting care: CAD, hyperlipidemia, type 2 diabetes, anemia, history of pericardial effusion, pneumothorax Social determinants of health: none History obtained from others: none Consults: Hospitalist (Dr. Leong)?agree with admission recommended PCU full. MDM Narrative: Patient was hemodynamically stable, afebrile and nontoxic-appearing. Exam without obvious rales, respiratory distress. I considered the following differential diagnosis: ACS, arrhythmia, anemia, electrolyte disturbance, pneumonia, CHF exacerbation, PE, While I considered PE the patient is low risk Wells score despite initial mild tachycardia 102. Given low risk Wells score the patient has a low risk for PE and as such I did not obtain additional labs images such as D-dimer or CTA of the chest. ALL IMAGES (IF OBTAINED) HAVE BEEN PERSONALLY REVIEWED AND INTERPRETED BY MYSELF. EKG with sinus tachycardia rate 101, left axis deviation, no STEMI, similar morphology to prior CBC with no leukocytosis, chronic anemia essentially baseline, no thrombocytopenia No coagulopathy BMP without significant electrolyte abnormalities, no sign of endorgan hypoperfusion or metabolic acidosis with normal bicarb and anion gap, noted baseline CKD High-sensitivity troponin is negative, no evidence of myocardial ischemia BNP elevated consistent with CHF exacerbation I have personally reviewed the patient's chest x-ray. X-ray shows cardiomegaly and left-sided pleural effusion. Radiologist noted pulmonary venous congestion consistent with CHF exacerbation. History, physical exam and labs images consistent with CHF exacerbation. Given signs of heart failure gave IV Lasix. Will admit to PCU for further diuresis. The patient and/or family, caregivers express understanding. The patient and/or family, caregivers agrees with the plan. Shared decision making: I will have a discussion with the patient and or visitors regarding risk/benefits of further testing or admission. They will be made aware of of the risk/benefits inherent in this decision they will be given the opportunity to voice understanding. Total critical care time today provided was at least 0 minutes. This excludes separately billable procedures. Critical care time (if documented) is secondary to the patient having high probability of clinically significant/life threatening deterioration in the patient's condition which required my urgent intervention. Impression: 1. Dyspnea on exertion 2. CHF exacerbation 3. History of hypertension Dispo: Admit to PCU This note was generated with [employer] dictation software. It may contain incorrect words, spelling, and punctuation that were not noted in review of the chart prior to signing. Lab Data Labs: Laboratory Results - last 24 hr 09/25/24 09/25/24 01:35 02:10 WBC 10.0 RBC 3.60 L Hgb 8.2 L Hct 29.4 L MCV 81.7 MCH 22.8 L MCHC 27.9 L RDW Std Deviation 50.4 H RDW Coeff of Velasquez 16.9 H Plt Count 254 MPV 9.6 Immature Gran % (Auto) 0.400 Neut % (Auto) 76.1 H Lymph % (Auto) 10.4 L [place] % (Auto) 8.3 Eos % (Auto) 4.0 Baso % (Auto) 0.8 Absolute Neuts (auto) 7.6 Absolute Lymphs (auto) 1.04 Nucleated RBC % 0 PT 16.7 H INR 1.3 Sodium 141 Potassium 3.8 Chloride 100 Carbon Dioxide 26.6 Anion Gap 14 BUN 22 H Creatinine 1.50 H Estim Creat Clear Calc 25.34 L Est GFR (MDRD) Non-Af 34 L BUN/Creatinine Ratio 14.9 Glucose 161 H Calcium 9.1 Troponin T High Sens 43 [place] [address] H Radiography Diagnostic Testing: Clinical Impression(s) from Imaging Studies Chest X-Ray 09/25/24 03:12 IMPRESSION: Blunting of the left costophrenic angle, probably adhesions. Metallic clips are noted in the left chest wall. Unremarkable median sternotomy wires. Mild central pulmonary venous congestion. Reading Location: [place] [id number] Discharge Plan Triage Chief Complaint: Palpitations ED Provider: Jagjit Hardwick Dx/Rx/DC Orders Prescriptions: No Action nitroglycerin 0.4 mg tablet, sublingual 0.4 mg SUBLINGUAL Q5M PRN (Reason: Chest Pain) Qty: 25 1RF tizanidine 4 mg capsule 4 mg PO QHS PRN cyclobenzaprine 5 mg tablet 5 mg PO TID PRN (Reason: muscle spasm) Qty: 30 0RF sertraline 25 mg tablet 25 mg PO BID acetaminophen [Tylenol Extra Strength] 500 mg tablet 500 mg PO Q6H PRN lorazepam [Ativan] 0.5 mg tablet 0.5 mg PO QDAY PRN Vitron-C 65 mg iron- 125 mg tablet,delayed release (DR/EC) 1 tab PO QDAY pantoprazole 40 MG tablet 40 mg PO DAILY Patient Comments: stomach acid ezetimibe 10 MG tablet 10 mg PO QHS Patient Comments: cholesterol clopidogrel 75 mg tablet 75 mg PO DAILY Patient Comments: ON HOLD, FOR EGD 03/07 metoprolol tartrate 50 mg tablet 50 mg PO Q12H Patient Comments: TAKE 1 TABLET BY MOUTH TWICE A DAY potassium chloride 10 mEq tablet extended release 10 meq PO DAILY Qty: 30 0RF calcipotriene-betamethasone 0.005-0.064 % ointment 1 applic topical DAILY PRN (Reason: PSORASIS) cholecalciferol (vitamin D3) [Thera-D] 50 mcg (2,000 unit) tablet 50 mcg PO DAILY furosemide 40 mg tablet 40 mg PO QAM Primary Care Provider: Daisha Ramirez Referrals: Daisha Ramirez DO [Primary Care Provider] - Print Language: Singaporean
[2024-09-25 01:51] LABS: Absolute Lymphocyte Count 1.04 X10^3/uL (0.83-4.51); Absolute Neutrophil Count 7.6 X10^3/uL (2.0-7.7); Basophil# 0.08 X10^3/uL; Basophil% 0.8 % (0-1); Hematocrit 29.4 % (37-47); Hemoglobin 8.2 g/dL (12.0-15.0); Lymphocyte # 1.04 X10^3/ul (0.83-4.51); Lymphocyte % 10.4 % (19-41); Mean Corp Hgb Conc 27.9 g/dL (32-36); Mean Corpuscular Hgb 22.8 pg (27.0-32.0); Mean Corpuscular Volume 81.7 fL (81-99); Mean Platelet Vol. 9.6 fl (6.2-12.0); Monocyte# 0.83 X10^3/uL; Monocyte% 8.3 % (0-10); NRBC Flagged by Analyzer 0 % (0-5); Neutrophil # 7.63 X10^3/uL (2.7-7.7); Neutrophil % 76.1 % (47-70); Platelet Count 254 K/mm3 (150-450); RBC Distribution Width CV 16.9 % (11.6-14.6); RBC Distribution Width SD 50.4 fl (35.1-43.9)
[2024-09-25 02:12] LABS: Anion Gap 14 (5-15); BUN 22 mg/dL (4-19); BUN/Creat Ratio 14.9 RATIO (10-20); Calcium,Total 9.1 mg/dL (7.6-11.0); Carbon Dioxide 26.6 mmol/L (21.0-32.0); Chloride 100 mmol/L (98-108); EST Glomerular Filtration Rate 34 (>60); Estimated Creatinine Clearance 25.34 ml/min (50-250); Glucose 161 mg/dL (70-99); Potassium 3.8 mmol/L (3.3-5.1); Sodium Level 141 mmol/L (133-145); Troponin T High Sensitivity 43 ng/L (<=14)
[2024-09-25 02:23] LABS: International Normalized Ratio 1.3; Prothrombin Time (Protime)PT. 16.7 SECONDS (11.7-14.9)
[2024-09-25 02:29] VITALS: BP 148/62; PULSE 93; RESP 18; O2SAT 91
[2024-09-25 02:52] LABS: Pro- Brain NATRIURETIC PEPTIDE 28816 pg/mL (<=1800)
[2024-09-25 03:00] VITALS: BP 162/79; PULSE 97; RESP 17; O2SAT 94; O2SAT 97
--- NOTE | 2024-09-25 03:12 | RAD_ITS ---
PROCEDURE: CHEST 1 VIEW (PORTABLE) 09/25/2024 REASON FOR EXAM: CHEST PAIN TECHNIQUE: Frontal view of the chest. COMPARISON: 06/17/2024. FINDINGS: Blunting of the left costophrenic angle, probably adhesions. Metallic clips are noted in the left chest wall. Unremarkable median sternotomy wires. Enlarged cardiac silhouette. Mild central pulmonary venous congestion. Normal mediastinum and erasmo. Normal visualized pulmonary arteries. Atheromatous plaques of the visualized aortic arch and descending thoracic aorta. Diffuse spondylosis of the visualized thoracic spine. Normal visualized ribs, clavicles. Degenerative joint disease. There is no demonstrated abnormality of the visualized soft tissue structures of the upper abdomen. RAD/Chest 1 View (Portable) IMPRESSION: Blunting of the left costophrenic angle, probably adhesions. Metallic clips are noted in the left chest wall. Unremarkable median sternotomy wires. Mild central pulmonary venous congestion. Reading [facility]
[2024-09-25 04:00] VITALS: BP 136/60; PULSE 93; PULSE 97; RESP 17; TEMP 36.6; O2SAT 93
[2024-09-25] MEDS: Furosemide 40 MG/4 ML Vial IV (04:08)
--- NOTE | 2024-09-25 04:10 | HP.PCM.HOS_ITS ---
HPI - General General Date of Admission: 09/25/24 Date of Service: 09/25/24 Chief Complaint: Dyspnea, weight gain, orthopnea, edema. HPI Narrative The patient is an 83 y/o F w/ PMHx: CKD stage III unclear subtype per GFR trending, Chronic normocytic anemia/Fe deficiency anemia on chronic IV and oral Fe supplementation, CAD s/p CABG, HTN, HLD, Carotid disease s/p BL CEA, GERD, PAF, DENVER, Hx TIA, Former tobacco use, Valvular heart disease s/p AVR bioprosthetic, Hx Breast CA s/p BL mastectomy, Diabetes mellitus type II, History GI bleeds following w/ Friend, recent admission to [facility] 05/2024 following a spontaneous pneumothorax with resulting hemothorax after attempted chest tube placement with noted recovery who presents to the [facility] ED on 09/25/2024 with onset of chest discomfort described as pressure-like sensation/tightness in the sternal region with palpitations/racing heart sensation in addition to tachypnea and dyspnea occurring at rest with racing heart sensation intermittently throughout the day however given worsening and not resolving prompted eventual ED evaluation to be cautious. Patient has increased edema, weight gain and orthopnea. Workup in the ED included T98.3, heart rate 102, BP 151/59, respiratory rate 25, 93% on room air with most recent repeat vitals heart rate 97, BP 162/79, respiratory rate 17, 97% room air, CBC with WC 10, hemoglobin 8.2, MCV 81.7, platelet 254 without marked shift, coags with PT 16.7 otherwise not marked appearing, BMP with BUN/creatinine 22/1.50, GFR 34, glucose 161, troponin 43, [place] [address], chest x-ray with blunting of the left costophrenic angle probably adhesions, metal clips noted left chest wall, unremarkable median sternotomy wires, mild central pulmonary venous congestion, EKG with sinus tachycardia with no acute evidence of ischemia. Weight gain 08/13/24 139 lb->09/25/24 151 lb although she notes that she actually this recent past month was down to 131 pounds. in the ED patient ministered Lasix 40 mg IV x 1. Even just getting up to the bedside commode and back into the ED bed she notes causes her significant shortness of breath. [facility] Medical History (Updated 09/25/24 @ 04:[address] Ria Leong MD) Pericardial effusion Bilateral carotid artery stenosis Pulmonary artery hypertension History of diabetes mellitus Anemia History of stress test History of echocardiogram Wears glasses Wears dentures Cancer Walker as ambulation aid High cholesterol PONV (postoperative nausea and vomiting) TIA (transient ischemic attack) History of GI bleed Gastric reflux Chronic cough History of edema Cardiology follow-up encounter Heart murmur Anemia Gastrointestinal bleeding Gastric AVM Duodenal arteriovenous malformation Former smoker Hypertension Anemia Gastrointestinal bleeding, upper Over 65 years old Biliary colic Iron deficiency anemia due to chronic blood loss Coronary artery disease Severe aortic stenosis History of coronary artery disease History of left heart catheterization (LHC) (~07/14/20) Type 2 diabetes mellitus TIA (transient ischemic attack) Nonrheumatic aortic (valve) stenosis Jayson's syndrome Pure hypercholesterolemia Paroxysmal atrial fibrillation Essential hypertension Atherosclerotic heart disease of kenaitze coronary artery without angina pectoris Sleep disorder breathing GERD (gastroesophageal reflux disease) Psoriasis CAD (coronary artery disease) Osteoarthritis Sleep disorder Tobacco abuse DENVER (obstructive sleep apnea) Home Medications ?Medication ?Instructions ?Recorded ?Last Taken ?Type ezetimibe 10 mg tablet 10 mg PO QHS cholesterol 02/0506/08/23 History pantoprazole 40 mg tablet,delayed 40 mg PO DAILY gerd 09/01/13 06/09/23 History release nitroglycerin 0.4 mg sublingual 0.4 mg sublingual Q5M PRN Chest 10/05/18 04/12/19 Rx tablet Pain #25 tabs clopidogrel 75 mg tablet 75 mg PO DAILY blood thinner 04/18/21 03/04/24 History metoprolol tartrate 50 mg tablet 50 mg PO Q12H blood p ressure 06/09/23 03/07/24 09:00 History potassium chloride 10 mEq 10 meq PO DAILY LASIX #30 ta bs 06/11/23 Unknown Rx tablet,extended release calcipotriene-betamethasone 0.005 1 applic topical ISAAC LY PRN PSORASIS 03/06/24 Unknown History %-0.064 % topical ointment cholecalciferol (vitamin D3) 50 50 mcg PO DAILY Unknown History mcg (2,000 unit) tablet (Thera-D) cyclobenzaprine 5 mg tablet 5 mg PO TID PRN muscle spa sm #30 06/28/24 Unknown Rx tabs tizanidine 4 mg capsule 4 mg PO QHS PRN 06/28/24 Unk nown History acetaminophen 500 mg tablet 500 mg PO Q6H PRN PAIN/FEV ER 07/20/24 Unknown History (Tylenol Extra Strength) furosemide 40 mg tablet 40 mg PO QAM SWELLING Unknown History iron,carbonyl 65 mg-vitamin C 125 1 tab PO QDAY Unknown History mg tablet,delayed release (Vitron-C) lorazepam 0.5 mg tablet (Ativan) 0.5 mg PO QDAY PRN Unknown History sertraline 25 mg tablet 25 mg PO BID 07/20/24 Unknow n History Allergy/AdvReac Type Severity Reaction Status Date / Time Sulfa (Sulfonamide Allergy Severe HEART Verified 09/25/24 04:10 Antibiotics) RACING blue dye Allergy Intermediate Swelling Verified 09/25/24 04:28 yellow dye Allergy Intermediate Swelling Verified 09/25/24 04:28 Latex, Natural Rubber Allergy Rash, Verified 09/25/24 04:10 psioriasis amoxicillin (From Augmentin) AdvReac Nausea Verified 09/25/24 04:10 atorvastatin (From Lipitor) AdvReac Other Verified 09/25/24 04:10 clavulanic acid (From AdvReac Nausea Verified 09/25/24 04:10 Augmentin) Iodinated Contrast Media AdvReac Other Verified 09/25/24 04:10 (CONTRASTS) lisinopril AdvReac Other Verified 09/25/24 04:10 red dye AdvReac NEEDS Verified 09/25/24 04:10 FOLLOW-UP rosuvastatin (From Crestor) AdvReac Other Verified 09/25/24 04:10 turkey AdvReac Rash Verified 09/25/24 04:10 Family History Mother Heart disease Diabetes Breast cancer Hypertension Father Heart disease Cancer Sister Cancer COPD (chronic obstructive pulmonary disease) Surgical History S/P insertion of iliac artery stent History of cholecystectomy S/P TAVR (transcatheter aortic valve replacement) History of cardiac catheterization History of esophagogastroduodenoscopy (EGD) Hx of colonoscopy History of heart valve replacement History of tubal ligation History of bilateral carotid endarterectomy History of left mastectomy (~1998) History of right mastectomy (~1998) History of aortic valve replacement with bioprosthetic valve (~09/06/13) History of coronary artery bypass surgery (~09/06/13) Social History household members: none housing: house Smoking Status: Former smoker how long ago did patient quit smokin second hand exposure: No alcohol intake: never substance use type: does not use caffeine: Yes Type: coffee Number of servings: 2 and tea what type of physical activity do you participate in: none franci/confucianist: Catholic seatbelt use: always do you feel safe at home: Yes ROS ROS Narrative Admission Review of Systems: CONSTITUTIONAL: No weight loss, fever, chills, + weakness or fatigue. HEENT: Eyes: No visual loss, blurred vision, double vision or yellow sclerae. Ears, Nose, Throat: No hearing loss, sneezing, congestion, runny nose or sore throat. SKIN: No rash or itching, lesions, wounds aside from + psoriatic skin changes. CARDIOVASCULAR: + Chest pain/tightness, palpitations, edema, orthopnea. No syncopal events. RESPIRATORY: + Dyspnea, occasional wheezing. No marked coug, productive sputum, hemoptysis. GASTROINTESTINAL: No anorexia, nausea, vomiting or diarrhea, abdominal pain, melena, BRBPR. GENITOURINARY: No dysuria, frequency, urgency or retention. NEUROLOGICAL: No headache, dizziness, paralysis, ataxia, numbness or tingling in the extremities, focal weakness, change in bowel or bladder control, seizure. MUSCULOSKELETAL: + muscle, back pain, joint pain or stiffness. HEMATOLOGIC: + chronic anemia, easy bleeding/bruising. LYMPHATICS: No enlarged nodes. No history of splenectomy. PSYCHIATRIC: + Hx anxiety and depression. ENDOCRINOLOGIC: No reports of sweating, cold or heat intolerance. No polyuria or polydipsia. ALLERGIES: No history of asthma, hives, eczema or rhinitis. Vital Signs Vital Signs Vital Signs: 09/25/24 01:30 09/25/24 02:29 09/25/24 02:29 Temperature 98.3 F Temperature Source Oral Pulse Rate 102 H 93 Respiratory Rate 25 H 18 Blood Pressure 151/59 H 148/62 H Blood Pressure Mean 89 90 Pulse Ox 93 91 Oxygen Delivery Method Room Air Room Air Room Air 09/25/24 03:00 09/25/24 04:00 09/25/24 04:00 Temperature 97.8 F Temperature Source Pulse Rate 97 93 97 Respiratory Rate 17 17 17 Blood Pressure 162/79 H 136/60 H 136/60 H Blood Pressure Mean 106 85 85 Pulse Ox 97 93 Oxygen Delivery Method Room Air Room Air Weight Weight: 151 lb 3.794 oz Body Mass Index (BMI) 27.6 Physical Exam Narrative Physical Examination: General: Awake, alert, oriented x 3 and cooperative, seated upright in the ED bed, recent transition from bedside commode to the ED bed with evident dyspnea. Skin: Normal color, normal turgor, no icterus, no cyanosis except occasional stage ecchymoses, abrasion. HEENT: AT/NC, EOMI, PERRLA, MMM, no carotid bruits, + JVD noted. Lungs: Diminished, greater bases, mild increased respiratory rate but no obvious distress, distant rales, no current wheezing but diminished. Heart: Mildly tachycardic with regular rhythm; no gallop, rub audible, +SM. Abdomen: Soft, NTTP, ND, distant normal BS, no appreciated HSM. Extremities: No cyanosis, no clubbing, very mild ankle 1+ edema. Neurological: Patient awake, alert, oriented as noted, cognitive function intact; pupils equally reactive to light and accommodation, cranial nerves gross normal, moving all 4 extremities, no focal deficits, strength severely globally decreased secondary to acute presentation. Psychiatric: Affect appears fatigued, no acute evidence of depressive or anxiety feelings but does have underlying history. Results Lab / Micro Data 09/25/24 01:35 09/25/24 01:35 Labs: Laboratory Results - last 24 hr 09/25/24 01:35: WBC 10.0, RBC 3.60 L, Hgb 8.2 L, Hct 29.4 L, MCV 81.7, MCH 22.8 L, MCHC 27.9 L, RDW Std Deviation 50.4 H, RDW Coeff of Velasquez 16.9 H, Plt Count 254, MPV 9.6, Immature Gran % (Auto) 0.400, Neut % (Auto) 76.1 H, Lymph % (Auto) 10.4 L, [place] % (Auto) 8.3, Eos % (Auto) 4.0, Baso % (Auto) 0.8, Absolute Neuts (auto) 7.6, Absolute Lymphs (auto) 1.04, Nucleated RBC % 0, Sodium 141, Potassium 3.8, Chloride 100, Carbon Dioxide 26.6, Anion Gap 14, BUN 22 H, C reatinine 1.50 H, Estim Creat Clear Calc 25.34 L, Est GFR (MDRD) Non-Af 34 L, BUN/Creatinine Ratio 14.9, Glucose 161 H, Calcium 9.1, Troponin T High Sens 43 H D, [place] [address] H 09/25/24 02:10: PT 16.7 H, INR 1.3 Imaging Radiology Impression Chest X-Ray 09/25/24 03:12 IMPRESSION: Blunting of the left costophrenic angle, probably adhesions. Metallic clips are noted in the left chest wall. Unremarkable median sternotomy wires. Mild central pulmonary venous congestion. Reading [facility] Assessment & Plan Assessment/Plan (1) Acute exacerbation of chronic heart failure: PLAN: Plan The patient is an 83 y/o F w/ PMHx: CKD stage III unclear subtype per GFR trending, Chronic normocytic anemia/Fe deficiency anemia on chronic IV and oral Fe supplementation, CAD s/p CABG, HTN, HLD, Carotid disease s/p BL CEA, GERD, PAF, DEN[place], Hx TIA, Former tobacco use, Valvular heart disease s/p AVR bioprosthetic, Hx Breast CA s/p BL mastectomy, Diabetes mellitus type II, History GI bleeds following w/ Friend, recent admission to [facility] 05/2024 following a spontaneous pneumothorax with resulting hemothorax after attempted chest tube placement with noted recovery who presents to the [facility] ED on 09/25/2024 with onset of chest discomfort described as pressure-like sensation/tightness in the sternal region with palpitations/racing heart sensation in addition to tachypnea and dyspnea occurring at rest with racing heart sensation intermittently throughout the day however given worsening and not resolving prompted eventual ED evaluation to be cautious. #1. Palpitations, chest tightness/discomfort secondary to Suspected Acute Decompensated HF, chart reported pEF however EF reduced on most recent ECHO, ? rEF with associated elevated cardiac enzymes suspected secondary to possibly demand component: Patient administered IV lasix in the ED, will admit to PCU, maintain on cardiac telemetry, obtain cardiac enzyme series, obtain serial EKGs, continue IV lasix diuresis, monitor I/Os, maintain on intake restriction, continue medical therapy, obtain TSH and magnesium level. Most recent ECHO noted 09/05/2024 with normal LV size, LVEF 40%, moderate concentric LVH, moderate segmental systolic dysfunction, bioprosthetic AV, mean AV gradient 18 mmHg. Most recent evaluation with a pre-TAVR cath demonstrating YOO to LAD widely patent, circumflex totally occluded however fills via patent saphenous vein graft, right coronary with minimal disease with LVEF 45% at that time 11/2021. Will [address] snug SOCORRO wraps. #2. Valvular heart disease: Status post AVR x 2, bioprosthetic valve, last noted echo 09/05/2024 with normal LV size, LVEF 40%, moderate concentric LVH, moderate segmental systolic dysfunction, bioprosthetic AV, mean AV gradient 18 mmHg. #3. Suspected Underlying COPD/Prior CT evidence Centrilobular emphysematous changes: Former tobacco use history, given pulmonary symptom complaints will maintain on ATC budesonide therapy, PRN albuterol, encourage HOB and I-S. #4. Chronic Kidney Disease Stage III, unclear subtype per GFR trending: Admission BUN/Cr 22/1.50, GFR 34, baseline renal function primarily 1.3-1.6, repeat BMP in AM. #5. Chronic microcytic anemia/iron deficiency anemia with history of GI bleed: Admission hemoglobin 8.2, MCV 81.7, baseline primarily ranging from 7-8, will closely monitor, continue iron supplementation. #6. CAD: Status post CABG (YOO to the LAD and a vein graft to the OM branch of the circumflex) and noted also stent graft aortic root, continue Plavix cautiously, continue metoprolol, not on SOCORRO inhibitor/AR B nor on statin therapy. #7. Hypertension: Continue home metoprolol, IV Lasix as noted above, as needed IV hydralazine. #8. Hyperlipidemia: Not on statin therapy, will continue ezetimibe. FLP in AM. #9. Bilateral carotid stenosis, peripheral vascular disease: Status post bilateral CEA as well as status post right internal iliac stent noted to have been performed during her previous TAVR, cautiously continue Plavix regimen, continue hypertensive regimen, ezetimibe, following with vascular surgeon Dr. Guzmán. #10. History of diabetes mellitus type II: Not on medication, last hemoglobin A1c noted 5.1% 11/10/2021, diet controlled, will defer any Accu-Cheks and sliding scale. #11. History TIA: Continue Plavix, not on statin therapy per current regimen but on ezetimibe, continue hypertensive regimen, no diabetic history. #12. PAF: Continue metoprolol home regimen, not chronically anticoagulated. With significant chronic iron deficiency anemia history as noted above #13. Former tobacco use: Encourage continued tobacco cessation. #14. GERD with history of GI bleed: Maintained on PPI. #15. DENVER: Will continue CPAP nightly. #16. History of breast cancer: Unclear specific type of breast cancer, status post bilateral mastectomy, unclear exact type or further intervention, in remission, encourage continued outpatient follow-up as previously arranged. #17. DVT prophylaxis: Heparin. #18. CODE status: Patient MICHELLE is her niece Yvonne now and LW in place. Discussed CODE status at length including difference between FULL code, DNR-CCA and DNR-CC status. Following discussions about the differences in these status, requested DNR-CCA, no intubation status. Examples discussed and confirmed continuation of DNR-CCA, no intubation status. Advanced Care Planning Face to Face Time: 16 minutes. Charges/Coding Visit Charges Inpatient E&M: 87999 Init Hosp L3 Procedures Hospitalists Procedures: 33282 Advncd Care Plan 30 Min
[2024-09-25 05:00] VITALS: BP 143/53; PULSE 92; RESP 18
[2024-09-25 05:28] LABS: Magnesium 1.7 mg/dL (1.5-2.2)
[2024-09-25 06:02] VITALS: BP 143/53; PULSE 92; RESP 18; TEMP 36.6; O2SAT 92
[2024-09-25 06:24] LABS: Troponin T High Sens 2 HR 50 ng/L (<=14)
== END 2024-09-25 06:04 | disposition left against medical advice (07) ==
LOC: ED 04:13 → PCU 04:26
PROVIDERS: Family Medicine; Emergency Provider Emergency Medicine; PCP Internal Medicine; Visit Provider Emergency Medicine
DX: R06.00 Dyspnea, unspecified (principal); I11.0 Hypertensive heart disease with heart failure; I50.9 Heart failure, unspecified; R07.9 Chest pain, unspecified; R94.31 Abnormal electrocardiogram [ECG] [EKG]; I44.7 Left bundle-branch block, unspecified; Z86.73 Personal history of transient ischemic attack (TIA), and cerebral infarction without residual deficits; Z90.49 Acquired absence of other specified parts of digestive tract; Z98.51 Tubal ligation status; Z95.2 Presence of prosthetic heart valve; Z95.1 Presence of aortocoronary bypass graft; Z87.891 Personal history of nicotine dependence; I25.10 Atherosclerotic heart disease of native coronary artery without angina pectoris; K21.9 Gastro-esophageal reflux disease without esophagitis; G47.33 Obstructive sleep apnea (adult) (pediatric)
CPT/HCPCS: 71045; 80048; 83735; 83880; 84484; 85025; 85610; 93005; 96374; 99285; A4216; J1938

== ENCOUNTER → 2024-11-21 | Outpatient (CLI) | payer MEDICARE, SELFPAY ==
--- NOTE | 2024-11-21 10:36 | MRI_ITS ---
PROCEDURE: SPINE THORACIC (ROUTINE), 11/21/2024 REASON FOR EXAM: PAIN TECHNIQUE: Multisequence multiplanar MR of the thoracic spine was performed without IV contrast. COMPARISON: 09/24/2024 FINDINGS: Axial sequences are mildly/moderately motion degraded. Exam is slightly limited by oblique plane of axial imaging through the upper and lower thoracic spine related to exaggeration of the normal thoracic kyphosis. Vertebral body heights are preserved. No suspicious marrow signal abnormality. Mild degenerative type marrow signal changes noted along the anterior endplates at T9-T12 where there are small degenerative anterior disc/osteophyte complexes. Exaggerated thoracic kyphosis as above, similar to 09/24/2024. Trace likely degenerative grade 1 anterolisthesis at T2-3 not well seen previously possibly due to demineralization. Grossly unremarkable appearance of the thoracic cord. Diffuse disc desiccation. Variable disc height loss up to mild/moderate and greatest anteriorly from T4-T12 in part related to exaggeration of the normal thoracic kyphosis. Minimal diffuse disc bulging at T8-T9 with superimposed minute RIGHT paracentral disc protrusion. Minimal diffuse disc bulging also present at T11-T12 and T12- L1. Slightly more prominent but still mild disc bulging is seen at L1-L2, but incompletely imaged. Multilevel spondylosis of the imaged lower cervical spine similarly not well evaluated. No significant thoracic foraminal or spinal canal stenosis identified. Small LEFT and trace RIGHT pleural effusions. MRI/Spine Thoracic (Routine) IMPRESSION: 1. Overall mild multilevel spondylosis as detailed. No high-grade foraminal or spinal canal stenosis identified. 2. Small LEFT and trace RIGHT pleural effusions. 3. Additional description as above. Reading Location: [id number]
== END | disposition home or self-care (01) ==
LOC: OPMRI 10:33
PROVIDERS: PCP Internal Medicine; Referring Provider Student in an Organized Health Care Education/Training Program; Visit Provider Student in an Organized Health Care Education/Training Program
DX: M54.6 Pain in thoracic spine (principal); M40.14 Other secondary kyphosis, thoracic region
CPT/HCPCS: 72146

== ENCOUNTER 2024-11-26 16:06 | Emergency (ER) | payer MEDICARE, SELFPAY ==
[2024-11-26 16:07] VITALS: BP 119/52; PULSE 71; RESP 16; TEMP 36.6; O2SAT 98
[2024-11-26 16:08] VITALS: BMI 24.0
[2024-11-26 17:26] VITALS: BP 121/63; BP 123/70; BP 127/67; PULSE 78; PULSE 80; PULSE 88
--- NOTE | 2024-11-26 17:26 | EKG12_ITS ---
Test Reason : Blood Pressure : */* mmHG Vent. Rate : 78 BPM Atrial Rate : 78 BPM P-R Int : 194 ms QRS Dur : 150 ms QT Int : 440 ms P-R-T Axes : 70 -25 133 degrees QTcB Int : 501 ms Normal sinus rhythm Left bundle branch block Abnormal ECG When compared with ECG of 25-Sep-2024 01:38, Premature atrial complexes are no longer Present Confirmed by FAYE DELGADILLO, KAREN ([id number]), digital editor CHRISTIN BARTHOLOMEW ([id number]) on 11/29/2024 6:33:28 AM Referred By: Confirmed By: KAREN MCKINNEY MD
[2024-11-26 17:39] LABS: Hematocrit 26.4 % (37-47); Hemoglobin 7.6 g/dL (12.0-15.0); Immature Granulocytes Count 0.030 X10^3/uL (0.0-0.0); Mean Corp Hgb Conc 28.8 g/dL (32-36); Mean Corpuscular Volume 81.0 fL (81-99); Mean Platelet Vol. 9.8 fl (6.2-12.0); NRBC Flagged by Analyzer 0 % (0-5); Platelet Count 281 K/mm3 (150-450); RBC Distribution Width CV 17.5 % (11.6-14.6); RBC Distribution Width SD 51.8 fl (35.1-43.9); Red Blood Count 3.26 M/mm3 (4.2-5.4); White Blood Count 8.7 K/mm3 (4.4-11.0)
[2024-11-26 18:07] VITALS: BP 136/68; PULSE 78; RESP 18; O2SAT 97
[2024-11-26 18:13] LABS: Anion Gap 16 (5-15); BUN 25 mg/dL (4-19); BUN/Creat Ratio 15.3 RATIO (10-20); Calcium,Total 9.1 mg/dL (7.6-11.0); Carbon Dioxide 24.9 mmol/L (21.0-32.0); Chloride 97 mmol/L (98-108); Estimated Creatinine Clearance 20.87 ml/min (50-250); Glucose 108 mg/dL (70-99); Potassium 4.0 mmol/L (3.3-5.1)
--- NOTE | 2024-11-26 19:09 | EX.ED.DYSGE1 ---
HPI History of Present Illness Chief Complaint: Syncope Detail of Chief Complaint: Sickle episode while walking to the restroom Informant: patient Onset/Context/Timing Onset: Today Context: Sudden Onset Timing: Intermittent Quality: Patient passed out woke up on the floor Location: Walking to the restroom at home Current Severity: Gone Maximum Severity: Severe Worsened by: Unknown Relieved by: Not applicable Associated Symptoms Associated Symptoms: [place]ott nauseous and was sweaty Narrative Narrative: Patient is an 84-year-old woman. She has history of coronary disease, CHF, type 2 diabetes, hyperlipidemia, carotid artery stenosis status post carotid endarterectomy and iron deficiency anemia. She also had a stroke that affected her right side with paresthesia as the only residual. Patient presently denies headache. She denies double vision, blurry vision loss of vision. Denies trouble speech or swallowing. Denies renal ears decreased hearing. Denies neck pain or neck stiffness. She denies chest pain or chest discomfort. She denies shortness of breath, difficulty breathing. She denies abdominal pain. She denies vomiting, black or maroon stool. She denies bright red blood per rectum. She denies dysuria, frequency, urgency or hematuria. Prior similar symptoms: No Recent Illness/Hospitalization: No PFSH PFSH Medical History Pericardial effusion Bilateral carotid artery stenosis Pulmonary artery hypertension History of diabetes mellitus Anemia History of stress test History of echocardiogram Wears glasses Wears dentures Cancer Walker as ambulation aid High cholesterol PONV (postoperative nausea and vomiting) TIA (transient ischemic attack) History of GI bleed Gastric reflux Chronic cough History of edema Cardiology follow-up encounter Heart murmur Anemia Gastrointestinal bleeding Gastric AVM Duodenal arteriovenous malformation Former smoker Hypertension Anemia Gastrointestinal bleeding, upper Over 65 years old Biliary colic Iron deficiency anemia due to chronic blood loss Coronary artery disease Severe aortic stenosis History of coronary artery disease History of left heart catheterization (LHC) (~07/14/20) Type 2 diabetes mellitus TIA (transient ischemic attack) Nonrheumatic aortic (valve) stenosis Jayson's syndrome Pure hypercholesterolemia Paroxysmal atrial fibrillation Essential hypertension Atherosclerotic heart disease of [place] coronary artery without angina pectoris Sleep disorder breathing GERD (gastroesophageal reflux disease) Psoriasis CAD (coronary artery disease) Osteoarthritis Sleep disorder Tobacco abuse [place] (obstructive sleep apnea) Home Medications ?Medication ?Instructions ?Recorded ?Last Taken ?Type ezetimibe 10 mg tablet 10 mg PO QHS cholesterol 09/01/13 06/08/23 History pantoprazole 40 mg tablet,delayed 40 mg PO DAILY gerd 09/01/13 06/09/23 History release nitroglycerin 0.4 mg sublingual 0.4 mg sublingual Q5M PRN Chest 10/05/18 04/12/19 Rx tablet Pain #25 tabs clopidogrel 75 mg tablet 75 mg PO DAILY blood thinner 04/18/21 03/04/24 History metoprolol tartrate 50 mg tablet 50 mg PO Q12H blood pressure 06/09/23 03/07/24 09:00 History potassium chloride 10 mEq 10 meq PO DAILY LASIX #30 tabs 06/11/23 Unknown Rx tablet,extended release calcipotriene-betamethasone 0.005 1 applic topical DAILY PRN PSORASIS 03/06/24 Unknown History %-0.064 % topical ointment cholecalciferol (vitamin D3) 50 50 mcg PO DAILY 03/06/24 Unknown History mcg (2,000 unit) tablet (Thera-D) tizanidine 4 mg capsule 4 mg PO QHS PRN 06/28/24 Unknown History acetaminophen 500 mg tablet 500 mg PO Q6H PRN PAIN/FEVER 07/20/24 Unknown History (Tylenol Extra Strength) furosemide 40 mg tablet 40 mg PO QAM SWELLING 07/20/24 Unknown History iron,carbonyl 65 mg-vitamin C 125 1 tab PO QDAY 07/20/24 Unknown History mg tablet,delayed release (Vitron-C) lorazepam 0.5 mg tablet (Ativan) 0.5 mg PO QDAY PRN 07/20/24 Unknown History sertraline 25 mg tablet 25 mg PO BID 07/20/24 Unknown History cyclobenzaprine 5 mg tablet 5 mg PO TID PRN muscle spasm #30 11/26/24 Unknown Rx tabs Allergy/AdvReac Type Severity Reaction Status Date / Time Sulfa (Sulfonamide Allergy Severe HEART Verified 11/26/24 16:09 Antibiotics) RACING blue dye Allergy Intermediate Swelling Verified 11/26/24 16:09 yellow dye Allergy Intermediate Swelling Verified 11/26/24 16:09 Latex, Natural Rubber Allergy Rash, Verified 11/26/24 16:09 psioriasis amoxicillin (From Augmentin) AdvReac Nausea Verified 11/26/24 16:09 atorvastatin (From Lipitor) AdvReac Other Verified 11/26/24 16:09 clavulanic acid (From AdvReac Nausea Verified 11/26/24 16:09 Augmentin) Iodinated Contrast Media AdvReac Other Verified 11/26/24 16:09 (CONTRASTS) lisinopril AdvReac Other Verified 11/26/24 16:09 red dye AdvReac NEEDS Verified 11/26/24 16:09 FOLLOW-UP rosuvastatin (From Crestor) AdvReac Other Verified 11/26/24 16:09 turkey AdvReac Rash Verified 11/26/24 16:09 Family History Mother Heart disease Diabetes Breast cancer Hypertension Father Heart disease Cancer Sister Cancer COPD (chronic obstructive pulmonary disease) Surgical History S/P insertion of iliac artery stent History of cholecystectomy S/P TAVR (transcatheter aortic valve replacement) History of cardiac catheterization History of esophagogastroduodenoscopy (EGD) Hx of colonoscopy History of heart valve replacement History of tubal ligation History of bilateral carotid endarterectomy History of left mastectomy (~1998) History of right mastectomy (~1998) History of aortic valve replacement with bioprosthetic valve (~09/06/13) History of coronary artery bypass surgery (~09/06/13) Social History household members: none housing: house Smoking Status: Former smoker how long ago did patient quit smokin second hand exposure: No alcohol intake: never substance use type: does not use caffeine: Yes Type: coffee Number of servings: 2 and tea what type of physical activity do you participate in: none franci/sikh: Zoroastrian seatbelt use: always do you feel safe at home: Yes ROS ROS ED Constitutional Constitutional ED: Denies chills, fever(s), subjective or sweats Eyes Eyes: Denies blurry vision, change in vision or diplopia ENT ENT ED: Denies ear pain, rhinorrhea or sore throat Cardiovascular Cardiovascular: Denies chest pain or palpitations Respiratory/Chest Respiratory/Chest: Denies cough, dyspnea or dyspnea on exertion Gastrointestinal Gastrointestinal: Reports nausea; Denies abdominal pain, diarrhea, melena or vomiting Genitourinary Genitourinary ED: Denies dysuria, hematuria or urinary frequency Musculoskeletal Musculoskeletal: Denies arthralgias, back pain or myalgias Integumentary Denies Abrasions or rash Neurologic Neurologic: Reports weakness; Denies headache(s) or paresthesias Psychiatric Psychiatric: Denies anxiety or depression Endocrine Endocrinology: Denies cold intolerance or heat intolerance Hematologic/Lymphatic Hematologic/Lymphatic: Reports systems reviewed and no addt'l complaints, except as documented EXAM Physical Exam Const Vital Signs: 11/26/24 16:07 11/26/24 17:05 11/26/24 17:26 Temperature 98 F Temperature Source Oral Pulse Rate 71 Pulse Rate [Lying] 78 Pulse Rate [Sitting (for 1 minute prior to obtaining)] 80 Pulse Rate [Standing (for 1 minute prior to obtaining)] 88 Respiratory Rate 16 Respiratory Effort Normal Non-Labored Respiratory Pattern Normal Blood Pressure 119/52 L Blood Pressure [Lying] 123/70 H Blood Pressure [Sitting (for 1 minute prior to obtaining)] 127/67 H Blood Pressure [Standing (for 1 minute prior to obtaining)] 121/63 H Blood Pressure Mean 74 Blood Pressure Mean [Lying] 87 Blood Pressure Mean [Sitting (for 1 minute prior to obtaining)] 87 Blood Pressure Mean [Standing (for 1 minute prior to obtaining)] 82 Pulse Ox 98 Oxygen Delivery Method Room Air 11/26/24 18:07 Temperature Temperature Source Pulse Rate 78 Pulse Rate [Lying] Pulse Rate [Sitting (for 1 minute prior to obtaining)] Pulse Rate [Standing (for 1 minute prior to obtaining)] Respiratory Rate 18 Respiratory Effort Respiratory Pattern Blood Pressure 136/68 H Blood Pressure [Lying] Blood Pressure [Sitting (for 1 minute prior to obtaining)] Blood Pressure [Standing (for 1 minute prior to obtaining)] Blood Pressure Mean 90 Blood Pressure Mean [Lying] Blood Pressure Mean [Sitting (for 1 minute prior to obtaining)] Blood Pressure Mean [Standing (for 1 minute prior to obtaining)] Pulse Ox 97 Oxygen Delivery Method Room Air Positive well nourished and well developed Constitutional Narrative: Vital signs noted. Orthostatic vital signs are negative. General Appearance ED: well developed and NAD; Negative for cyanotic, diaphoretic or pallor HEENT Reports dry mucous membranes HEENT Narrative: Head is atraumatic and normocephalic. Ears normal. No clinical signs of basilar skull fracture. No septal deviation hematoma. No dental trauma. Mouth ED: Yes dry mucous membranes Mouth: dry mucous membranes Eyes PERRL and EOMs intact bilaterally General Eye ED: Negative for pale conjunctiva or scleral icterus Neck no lymphadenopathy, supple and no JVD Neck Narrative: No midline pain posterior neck pain. Resp normal respiratory effort and clear to auscultation bilaterally Cardio regular rate, regular rhythm, S1 normal heart sound, S2 normal heart sound and no murmurs GI normal to inspection, nondistended, normoactive bowel sounds, non-tender and no masses; Negative for hepatosplenomegaly GI Narrative: There is no palp pulsatile mass. There is no abdominal bruit. Back/Spine Back/Spine Narrative: Inspection of the back is normal. Extremity normal to inspection General Extremety ED: Negative for edema or tenderness General Extremity: Negative for edema Neuro oriented x3, CN's II-XII intact bilaterally and no sensory deficits noted Neuro Narrative: There is no dysmetria. There is no clonus or Babinski sign noted. Sensorium / Orientation: alert Motor Exam: strength 5/5 throughout Psych mental status grossly normal Skin no rashes or lesions noted, no wounds and skin turgor normal General Skin Exam: Negative for elasticity normal, jaundice or pallor MDM MDM MDM Narrative Medical decision making narrative: Patient with syncopal episode. Since she has multiple medical problems we will obtain EKG to see if there are any dysrhythmia or any ischemic changes. Chest x-ray was obtained to evaluate for pneumothorax since she has history of spontaneous pneumothorax. She did report some mild shortness of breath. Will obtain CBC since she appears pale and has history of iron deficiency anemia. BMP to assess BUN to creatinine ratio, renal function and electrolytes. Lab Data Attestation: I reviewed the patient's lab results. Lab results narrative: CBC reveals anemia. She has history of anemia. She varies between mid 7 to mid 8 range. BMP reveals an elevated BUN/creatinine of 25 and 1.66. BUN is at her baseline. Creatinine is actually slightly improved from prior. Labs: Laboratory Results - last 24 hr 11/26/24 16:51 WBC 8.7 RBC 3.26 L Hgb 7.6 L Hct 26.4 L MCV 81.0 MCH 23.3 L MCHC 28.8 L RDW Std Deviation 51.8 H RDW Coeff of Velasquez 17.5 H Plt Count 281 MPV 9.8 Immature Gran % (Auto) 0.300 Neut % (Auto) 72.4 H Lymph % (Auto) 12.4 L [place] % (Auto) 9.7 Eos % (Auto) 4.5 Baso % (Auto) 0.7 Absolute Neuts (auto) 6.3 Absolute Lymphs (auto) 1.07 Nucleated RBC % 0 Sodium 138 Potassium 4.0 Chloride 97 L Carbon Dioxide 24.9 Anion Gap 16 H BUN 25 H Creatinine 1.66 H Estim Creat Clear Calc 20.87 L Est GFR (MDRD) Non-Af 30 L BUN/Creatinine Ratio 15.3 Glucose 108 H Calcium 9.1 EKG Initial EKG: Attestation: I personally reviewed and interpreted this EKG as follows: Interpretation: Sinus Rhythm (Rate is 78. There is a left bundle branch block. FL interval is 194 ms. Cures duration 50 ms. QT duration of 140 ms. [place] is to the left. This is unchanged from prior.) Treatment and Re-Evaluation :: Patient was informed of results. She feels back to normal. She was instructed take one of her iron tablets twice a day. Keep her appointment with Dr. La for later this month. Discharge Plan Triage Chief Complaint: Syncope ED Provider: Mir Campos Dx/Rx/DC Orders Clinical Impression: Vasovagal syncope, S/P insertion of iliac artery stent, Type 2 diabetes mellitus, CAD (coronary atherosclerotic disease) without angina pectoris, Hyperlipidemia, Bilateral carotid artery stenosis, Iron deficiency anemia, Complete left bundle branch block Instructions: ED Anemia, Iron-Deficiency (Adult), ED Fainting, Vagal Reaction Prescriptions: No Action nitroglycerin 0.4 mg tablet, sublingual 0.4 mg SUBLINGUAL Q5M PRN (Reason: Chest Pain) Qty: 25 1RF tizanidine 4 mg capsule 4 mg PO QHS PRN sertraline 25 mg tablet 25 mg PO BID acetaminophen [Tylenol Extra Strength] 500 mg tablet 500 mg PO Q6H PRN (Reason: PAIN/FEVER) lorazepam [Ativan] 0.5 mg tablet 0.5 mg PO QDAY PRN Vitron-C 65 mg iron- 125 mg tablet,delayed release (DR/EC) 1 tab PO QDAY pantoprazole 40 MG tablet 40 mg PO DAILY Patient Comments: stomach acid ezetimibe 10 MG tablet 10 mg PO QHS Patient Comments: cholesterol clopidogrel 75 mg tablet 75 mg PO DAILY Patient Comments: ON HOLD, FOR EGD 03/07 metoprolol tartrate 50 mg tablet 50 mg PO Q12H Patient Comments: TAKE 1 TABLET BY MOUTH TWICE A DAY potassium chloride 10 mEq tablet extended release 10 meq PO DAILY Qty: 30 0RF calcipotriene-betamethasone 0.005-0.064 % ointment 1 applic topical DAILY PRN (Reason: PSORASIS) cholecalciferol (vitamin D3) [Thera-D] 50 mcg (2,000 unit) tablet 50 mcg PO DAILY furosemide 40 mg tablet 40 mg PO QAM cyclobenzaprine 5 mg tablet 5 mg PO TID PRN (Reason: muscle spasm) Qty: 30 0RF Primary Care Provider: Daisha Ramirez Referrals: Daisha Ramirez DO [Primary Care Provider] - Keep Deb appointment Activity Restrictions/Additional Instructions: Take 1 iron tablet twice a day. 2. Keep your appointment with Dr. Ramirez scheduled for later this month Print Language: Uzbek Disposition Disposition: Home, Self Care
[2024-11-26 19:14] VITALS: BP 129/69; PULSE 83; RESP 24; TEMP 36.6; O2SAT 94
== END 2024-11-26 19:16 | disposition home or self-care (01) ==
PROVIDERS: Emergency Provider Emergency Medicine; PCP Internal Medicine; Visit Provider Emergency Medicine
DX: R55 Syncope and collapse (principal); E11.9 Type 2 diabetes mellitus without complications; I25.10 Atherosclerotic heart disease of native coronary artery without angina pectoris; Z95.820 Peripheral vascular angioplasty status with implants and grafts; I65.23 Occlusion and stenosis of bilateral carotid arteries; Z87.891 Personal history of nicotine dependence; D50.9 Iron deficiency anemia, unspecified; I44.7 Left bundle-branch block, unspecified; Z86.73 Personal history of transient ischemic attack (TIA), and cerebral infarction without residual deficits; E78.5 Hyperlipidemia, unspecified; R53.1 Weakness; R11.0 Nausea; Z98.51 Tubal ligation status; Z95.2 Presence of prosthetic heart valve; Z95.1 Presence of aortocoronary bypass graft; Z90.49 Acquired absence of other specified parts of digestive tract; Z90.13 Acquired absence of bilateral breasts and nipples
CPT/HCPCS: 80048; 85025; 93005; 99285; A4216

== ENCOUNTER → 2025-01-15 | Outpatient (CLI) | payer MEDICARE, SELFPAY ==
[2025-01-15 13:00] LABS: Hematocrit 37.6 % (37-47); Hemoglobin 11.0 g/dL (12.0-15.0); Immature Granulocytes Count 0.050 X10^3/uL (0.0-0.0); Mean Corp Hgb Conc 29.3 g/dL (32-36); Mean Corpuscular Volume 93.1 fL (81-99); Mean Platelet Vol. 10.3 fl (6.2-12.0); NRBC Flagged by Analyzer 0 % (0-5); POSITIVE MORPHOLOGY YES; Platelet Count 221 K/mm3 (150-450); RBC Distribution Width CV 21.4 % (11.6-14.6); RBC Distribution Width SD 72.8 fl (35.1-43.9); Red Blood Count 4.04 M/mm3 (4.2-5.4); White Blood Count 7.5 K/mm3 (4.4-11.0)
[2025-01-15 13:01] LABS: Differential Indicated SCAN CRITERIA MET
[2025-01-15 14:13] LABS: Anisocytosis 1+
== END | disposition home or self-care (01) ==
LOC: MTLAB 09:47
PROVIDERS: PCP Internal Medicine; Referring Provider Internal Medicine; Visit Provider Internal Medicine
DX: D64.9 Anemia, unspecified (principal)
CPT/HCPCS: 36415; 85025

== ENCOUNTER 2025-03-04 15:10 | Emergency (ER) | payer MEDICARE, SELFPAY ==
[2025-03-04 15:14] VITALS: BP 145/62; PULSE 91; RESP 18; TEMP 35.9; O2SAT 96
--- NOTE | 2025-03-04 15:47 | ED.RN ---
called for EKG
--- NOTE | 2025-03-04 15:59 | EKG12_ITS ---
Test Reason : Blood Pressure : */* mmHG Vent. Rate : 83 BPM Atrial Rate : 83 BPM P-R Int : 202 ms QRS Dur : 158 ms QT Int : 424 ms P-R-T Axes : 78 -32 121 degrees QTcB Int : 498 ms Normal sinus rhythm Left axis deviation Left bundle branch block Abnormal ECG Confirmed by Donnie Carbajal ([id number]), legal editor EN HERNANDEZ ([id number]) on 03/06/2025 10:50:19 AM Referred By: Confirmed By: Donnie Carbajal
--- NOTE | 2025-03-04 16:07 | EX.ED.DYSGE1 ---
HPI History of Present Illness Chief Complaint: Nausea/Vomiting Narrative Narrative: Chief complaint and HPI: 84-year-old female with past medical history of CAD status post CABG, history of valve replacement not on blood thinner, DM2, HTN, HLD, history of pneumothorax presents for evaluation of intermittent right neck and shoulder pain. Patient states she recently moved to a trailer in [place]. States she has been doing a lot of physical activities such as lifting boxes and placing things on shelves. States that states for the past week she has been having intermittent right neck and shoulder pain. States sometimes it radiates into the right chest. States she notices worse with lifting. States today she developed some nausea so she presented to the emergency department. Currently denying any pain. She denies any fever, chills, shortness of breath, abdominal pain, vomiting, numbness or tingling. Has been taking all of her medication. Review of systems: See HPI Medications: As listed on the chart Allergies: As listed on the chart PFSH: Per chart Vital signs: As listed on the chart. Reviewed. Physical exam: Gen: A&O x3, NAD Head: Normocephalic, atraumatic Eyes: No sclera icterus, conjunctiva clear ENT: Moist mucous membranes Neck: Trachea midline, No JVD, full range of motion, no midline spinal tenderness, patient has tenderness to palpation of the paraspinal musculature of the right cervical spine as well as the superior trapezius muscle-this recreates her pain CV: RRR, no murmurs, no peripheral edema, patient has tenderness to palpation of the right chest and costochondral angles of the right ribs-this recreates her pain, radial pulses +2 bilaterally Resp: Lungs CTA BL, no w/r/c GI: Abd soft, non-distended, non-tender, no r/r/g Musc: Full ROM, no deformity Skin: Warm, diffuse psoriasis Neuro: Alert, oriented, grossly intact, sensation intact Psych: Cooperative, appropriate mood and affect [facility] Medical History (Updated 12/04/24 @ 16:20 by Kyrie Enciso [employer]ER, [employer]-C) Pneumothorax Pericardial effusion Bilateral carotid artery stenosis Pulmonary artery hypertension History of diabetes mellitus Anemia History of stress test History of echocardiogram Wears glasses Wears dentures Cancer Walker as ambulation aid High cholesterol PONV (postoperative nausea and vomiting) TIA (transient ischemic attack) History of GI bleed Gastric reflux Chronic cough History of edema Cardiology follow-up encounter Heart murmur Anemia Gastrointestinal bleeding Gastric AVM Duodenal arteriovenous malformation Former smoker Hypertension Anemia Gastrointestinal bleeding, upper Over 65 years old Biliary colic Iron deficiency anemia due to chronic blood loss Coronary artery disease Severe aortic stenosis History of coronary artery disease History of left heart catheterization (LHC) (~07/14/20) Type 2 diabetes mellitus TIA (transient ischemic attack) Nonrheumatic aortic (valve) stenosis Jayson's syndrome Pure hypercholesterolemia Paroxysmal atrial fibrillation Essential hypertension Atherosclerotic heart disease of nik[place]ki coronary artery without angina pectoris Sleep disorder breathing GERD (gastroesophageal reflux disease) Psoriasis CAD (coronary artery disease) Osteoarthritis Sleep disorder Tobacco abuse [place] (obstructive sleep apnea) Home Medications ?Medication ?Instructions ?Recorded ?Last Taken ?Type ezetimibe 10 mg tablet 10 mg PO QHS cholesterol 09/01/13 03/03/25 History pantoprazole 40 mg tablet,delayed 40 mg PO DAILY gerd 09/01/13 03/04/25 History release nitroglycerin 0.4 mg sublingual 0.4 mg sublingual Q5M PRN Chest 10/05/18 04/12/19 Rx tablet Pain #25 tabs clopidogrel 75 mg tablet 75 mg PO DAILY blood thinner 04/18/21 03/04/25 History metoprolol tartrate 50 mg tablet 50 mg PO Q12H blood pressure 06/09/23 03/04/25 History potassium chloride 10 mEq 10 meq PO DAILY LASIX #30 tabs 06/11/23 03/03/25 Rx tablet,extended release calcipotriene-betamethasone 0.005 1 applic topical DAILY PRN PSORASIS 03/06/24 03/03/25 History %-0.064 % topical ointment acetaminophen 500 mg tablet 500 mg PO Q6H PRN PAIN/FEVER 07/20/24 Unknown History (Tylenol Extra Strength) furosemide 40 mg tablet 40 mg PO QAM SWELLING 07/20/24 03/03/25 History niacin 500 mg tablet 1,000 mg PO BID 03/04/25 Unknown History Allergy/AdvReac Type Severity Reaction Status Date / Time Sulfa (Sulfonamide Allergy Severe HEART Verified 12/04/24 14:53 Antibiotics) RACING blue dye Allergy Intermediate Swelling Verified 12/04/24 14:53 yellow dye Allergy Intermediate Swelling Verified 12/04/24 14:53 Latex, Natural Rubber Allergy Rash, Verified 12/04/24 14:53 psioriasis amoxicillin (From Augmentin) AdvReac Nausea Verified 12/04/24 14:53 atorvastatin (From Lipitor) AdvReac Other Verified 12/04/24 14:53 clavulanic acid (From AdvReac Nausea Verified 12/04/24 14:53 Augmentin) Iodinated Contrast Media AdvReac Other Verified 12/04/24 14:53 (CONTRASTS) lisinopril AdvReac Other Verified 12/04/24 14:53 red dye AdvReac NEEDS Verified 12/04/24 14:53 FOLLOW-UP rosuvastatin (From Crestor) AdvReac Other Verified 12/04/24 14:53 turkey AdvReac Rash Verified 12/04/24 14:53 Family History Mother Heart disease Diabetes Breast cancer Hypertension Father Heart disease Cancer Sister Cancer COPD (chronic obstructive pulmonary disease) Surgical History (Updated 12/04/24 @ 15:25 by Kyrie Enciso [employer], [employer]-C) S/P insertion of iliac artery stent History of cholecystectomy S/P TAVR (transcatheter aortic valve replacement) History of cardiac catheterization History of esophagogastroduodenoscopy (EGD) Hx of colonoscopy History of heart valve replacement History of tubal ligation History of bilateral carotid endarterectomy History of left mastectomy (~1998) History of right mastectomy (~1998) History of aortic valve replacement with bioprosthetic valve (~09/06/13) History of coronary artery bypass surgery (~09/06/13) Social History household members: none housing: house Smoking Status: Former smoker how long ago did patient quit smokin second hand exposure: No alcohol intake: never substance use type: does not use caffeine: Yes Type: coffee Number of servings: 2 and tea what type of physical activity do you participate in: none franci/restorationism: Confucianist seatbelt use: always do you feel safe at home: Yes EXAM Physical Exam Const Vital Signs: 03/04/25 15:14 03/04/25 18:35 Temperature 96.6 F L Temperature Source Temporal Pulse Rate 91 83 Respiratory Rate 18 17 Blood Pressure 145/62 H 136/71 H Blood Pressure Mean 89 92 Pulse Ox 96 99 Oxygen Delivery Method Room Air MDM MDM MDM Narrative Medical decision making narrative: 84-year-old female with past medical history of CAD status post CABG, history of valve replacement not on blood thinner, DM2, HTN, HLD, history of pneumothorax presents for evaluation of intermittent right neck and shoulder pain. Patient states she recently moved to a trailer in [place]. States she has been doing a lot of physical activities such as lifting boxes and placing things on shelves. States that states for the past week she has been having intermittent right neck and shoulder pain. States sometimes it radiates into the right chest. States she notices worse with lifting. States today she developed some nausea so she presented to the emergency department. Currently denying any pain. On chart review, patient follows with our cardiology group. She has had a TAVR. Patient has bilateral internal carotid artery stenosis greater than 70% in which she was referred to Dr. Guzmán. Her last echocardiogram was 09/05/2024 in which her EF was 40%. Her last cardiac catheterization was in 2020. Differential diagnosis includes but is not limited to musculoskeletal pain, CAD, electrolyte abnormality, CHF. Aspirin ordered for pain. Cardiac workup. CBC without leukocytosis. Patient has stable anemia with hemoglobin 11.9. Platelets unremarkable. CMP shows baseline renal insufficiency with creatinine of 1.25. Troponin 34 and 37. Delta troponin 3. I do feel that this may be her baseline troponin as on previous labs her troponins is in the 40s and 30s. BNP elevated at 14,805. Patient has not fluid overloaded on exam or chest x-ray. This is actually downtrending from September at 28,816. Patient's pain is atypical and reproducible. I do think this is myofascial. Patient's heart score is a 4 due to age, troponins, and past medical history. Places her at moderate risk. However again her chest pain is atypical. However given patient follows with the cardiology team, I did speak with Dr. Carbajal. Patient was discussed. He reviewed the EKG. Agrees with discharge home. Follow-up outpatient. Patient was updated all results confirmed understand the plan. Patient will discharge home. I do not feel comfortable giving her muscle relaxers given that she lives alone and they can increase weakness, falls, confusion. Patient feels that they did not work in the past. I did offer Lidoderm patch although she states she does not want to have this. Therefore recommended Tylenol. Follow-up with PCP and cardiology. She confirmed understanding. She has not followed up with Dr. Guzmán for her stenosis in her neck. I did recommend her following up. EKG: Interpreted by me/EM physician: EKG shows normal sinus rhythm with left bundle branch block. Heart rate 83. Patient has a known left bundle branch block and this is similar to previous EKG. Diagnostic: Interpreted by me/EM physician: Chest x-ray with cardiomegaly and mild vascular congestion without any large effusion, pneumonia, pneumothorax. Radiology in agreement. Impression: 1. Right-sided chest pain, atypical 2. Chronic kidney 3. Chronic renal insufficiency Lab Data Labs: Laboratory Results - last 24 hr 03/04/25 03/04/25 16:31 18:28 WBC 7.4 RBC 4.11 L Hgb 11.9 L Hct 38.6 MCV 93.9 MCH 29.0 MCHC 30.8 L RDW Std Deviation 56.6 H RDW Coeff of Velasquez 16.3 H Plt Count 209 MPV 11.0 Immature Gran % (Auto) 0.400 Neut % (Auto) 76.8 H Lymph % (Auto) 9.9 L [place] % (Auto) 9.0 Eos % (Auto) 3.2 Baso % (Auto) 0.7 Absolute Neuts (auto) 5.7 Absolute Lymphs (auto) 0.74 L Nucleated RBC % 0 Sodium 140 Potassium 3.8 Chloride 101 Carbon Dioxide 24.6 Anion Gap 14 BUN 12 Creatinine 1.25 H Estim Creat Clear Calc 28.87 L Est GFR (MDRD) Non-Af 43 L BUN/Creatinine Ratio 9.4 L Glucose 102 H Calcium 9.4 Troponin T High Sens 34 H D Troponin T Hi Sens 2 Hr 37 [place] [address] H Radiography Diagnostic Testing: Clinical Impression(s) from Imaging Studies Chest X-Ray 03/04/25 16:40 IMPRESSION: Cardiomegaly. Mild interstitial edema versus emphysematous lung changes. No appreciable focal consolidation or sizable pleural effusion. Reading Location: [facility] Discharge Plan Triage Chief Complaint: Nausea/Vomiting Other Complaint: Upper Extremity Injury ED Provider: Robbin Wetzel Dx/Rx/DC Orders Prescriptions: No Action nitroglycerin 0.4 mg tablet, sublingual 0.4 mg SUBLINGUAL Q5M PRN (Reason: Chest Pain) Qty: 25 1RF acetaminophen [Tylenol Extra Strength] 500 mg tablet 500 mg PO Q6H PRN (Reason: PAIN/FEVER) pantoprazole 40 MG tablet 40 mg PO DAILY Patient Comments: stomach acid ezetimibe 10 MG tablet 10 mg PO QHS Patient Comments: cholesterol clopidogrel 75 mg tablet 75 mg PO DAILY Patient Comments: ON HOLD, FOR EGD 03/07 metoprolol tartrate 50 mg tablet 50 mg PO Q12H Patient Comments: TAKE 1 TABLET BY MOUTH TWICE A DAY potassium chloride 10 mEq tablet extended release 10 meq PO DAILY Qty: 30 0RF calcipotriene-betamethasone 0.005-0.064 % ointment 1 applic topical DAILY PRN (Reason: PSORASIS) furosemide 40 mg tablet 40 mg PO QAM niacin 500 mg tablet 1,000 mg PO BID Primary Care Provider: Daisha Ramirez Referrals: Daisha Ramirez DO [Primary Care Provider, Internal Medicine] Print Language: Polish
[2025-03-04 16:35] VITALS: BMI 24.7
--- NOTE | 2025-03-04 16:40 | RAD_ITS ---
PROCEDURE: CHEST PA AND LATERAL 03/04/2025 REASON FOR EXAM: CHEST PAIN TECHNIQUE: Procedure Code: RADCXR Modality: DX Procedure: CHEST PA AND LATERAL COMPARISON: 09/25/2024 FINDINGS: Cardiomegaly. Aortic atherosclerotic calcification. TAVR and left atrial appendage clip hardware. Evidence of CABG with multiple mediastinal surgical clips and sternotomy wires. No appreciable focal consolidation, pneumothorax or sizable pleural effusion. Mild diffuse interstitial reticular opacities may reflect interstitial edema or chronic interstitial emphysematous lung changes. Multilevel degenerative changes of the spine with exaggerated thoracic kyphosis. Multiple bilateral axillary surgical clips. RAD/Chest PA and Lateral IMPRESSION: Cardiomegaly. Mild interstitial edema versus emphysematous lung changes. No appreciable focal consolidation or sizable pleural effusion. Reading Location: [id number]
[2025-03-04 16:48] LABS: Hematocrit 38.6 % (37-47); Hemoglobin 11.9 g/dL (12.0-15.0); Immature Granulocytes Count 0.030 X10^3/uL (0.0-0.0); Mean Corp Hgb Conc 30.8 g/dL (32-36); Mean Corpuscular Volume 93.9 fL (81-99); Mean Platelet Vol. 11.0 fl (6.2-12.0); NRBC Flagged by Analyzer 0 % (0-5); Platelet Count 209 K/mm3 (150-450); RBC Distribution Width CV 16.3 % (11.6-14.6); RBC Distribution Width SD 56.6 fl (35.1-43.9); Red Blood Count 4.11 M/mm3 (4.2-5.4); White Blood Count 7.4 K/mm3 (4.4-11.0)
[2025-03-04 17:21] LABS: Anion Gap 14 (5-15); BUN 12 mg/dL (4-19); BUN/Creat Ratio 9.4 RATIO (10-20); Calcium,Total 9.4 mg/dL (7.6-11.0); Carbon Dioxide 24.6 mmol/L (21.0-32.0); Chloride 101 mmol/L (98-108); Estimated Creatinine Clearance 28.87 ml/min (50-250); Glucose 102 mg/dL (70-99); Potassium 3.8 mmol/L (3.3-5.1); Pro- Brain NATRIURETIC PEPTIDE 14805 pg/mL (<=1800); Troponin T High Sensitivity 34 ng/L (<=14)
[2025-03-04 18:35] VITALS: BP 136/71; PULSE 83; RESP 17; O2SAT 99
[2025-03-04 19:30] LABS: Troponin T High Sens 2 HR 37 ng/L (<=14)
[2025-03-04 20:00] VITALS: BP 136/79; PULSE 82; RESP 18; TEMP 36.4; O2SAT 95
== END 2025-03-04 20:25 | disposition home or self-care (01) ==
PROVIDERS: Emergency Provider Surgery; PCP Internal Medicine; Visit Provider Surgery
DX: R07.89 Other chest pain (principal); E11.22 Type 2 diabetes mellitus with diabetic chronic kidney disease; M48.02 Spinal stenosis, cervical region; I25.10 Atherosclerotic heart disease of native coronary artery without angina pectoris; I12.9 Hypertensive chronic kidney disease with stage 1 through stage 4 chronic kidney disease, or unspecified chronic kidney disease; D64.9 Anemia, unspecified; Z87.891 Personal history of nicotine dependence; E78.00 Pure hypercholesterolemia, unspecified; I65.23 Occlusion and stenosis of bilateral carotid arteries; Z95.1 Presence of aortocoronary bypass graft; E78.5 Hyperlipidemia, unspecified; Z98.51 Tubal ligation status; Z90.49 Acquired absence of other specified parts of digestive tract; Z95.2 Presence of prosthetic heart valve; Z90.12 Acquired absence of left breast and nipple; Z86.73 Personal history of transient ischemic attack (TIA), and cerebral infarction without residual deficits; R11.0 Nausea; M54.2 Cervicalgia; M25.511 Pain in right shoulder; N18.9 Chronic kidney disease, unspecified; I44.7 Left bundle-branch block, unspecified
CPT/HCPCS: 71046; 80048; 83880; 84484; 85025; 93005; 99285; A4216

== ENCOUNTER 2025-04-03 13:12 | Observation (INO) | payer MEDICARE, SELFPAY ==
[2025-04-03] VITALS (12 sets, daily range): BP systolic 125–168; BP diastolic 51–84; PULSE 68–115; RESP 12–21; TEMP 36.5–36.7; O2SAT 92–100; BMI 23.6
--- NOTE | 2025-04-03 13:35 | RAD_ITS ---
PROCEDURE: CHEST 1 VIEW (PORTABLE) 04/03/2025 REASON FOR EXAM: CHEST PAIN TECHNIQUE: Frontal view of the chest. COMPARISON: None FINDINGS: Hardware: Left atrial appendage clip is noted. Sternotomy wires are noted without evidence of dehiscence. Heart: Cardiac and mediastinal contours are stable. Lungs: No significant change in the appearance of the lungs. Bones: The bones are unremarkable. RAD/Chest 1 View (Portable) IMPRESSION: No Acute Findings. Reading Location: [facility]
--- NOTE | 2025-04-03 13:35 | EKG12_ITS ---
Test Reason : repeat Blood Pressure : */* mmHG Vent. Rate : 92 BPM Atrial Rate : 92 BPM P-R Int : 190 ms QRS Dur : 154 ms QT Int : 406 ms P-R-T Axes : 82 -28 126 degrees QTcB Int : 502 ms Sinus rhythm with Premature atrial complexes Left bundle branch block Abnormal ECG Confirmed by CHRISTINA DELGADILLO, JANE ([id number]), commissioning editor EN HERNANDEZ ([id number]) on 04/08/2025 6:20:53 AM Referred By: Confirmed By: JANE VASQUEZ MD
[2025-04-03 13:51] LABS: Hematocrit 33.9 % (37-47); Hemoglobin 10.5 g/dL (12.0-15.0); Immature Granulocytes Count 0.020 X10^3/uL (0.0-0.0); Mean Corp Hgb Conc 31.0 g/dL (32-36); Mean Corpuscular Volume 94.4 fL (81-99); Mean Platelet Vol. 10.6 fl (6.2-12.0); NRBC Flagged by Analyzer 0 % (0-5); Platelet Count 279 K/mm3 (150-450); RBC Distribution Width CV 14.8 % (11.6-14.6); RBC Distribution Width SD 50.7 fl (35.1-43.9); Red Blood Count 3.59 M/mm3 (4.2-5.4); White Blood Count 7.6 K/mm3 (4.4-11.0)
--- NOTE | 2025-04-03 14:05 | ED.VIS.CHEST ---
HPI History of Present Illness Chief Complaint: Chest Pain Detail of Chief Complaint: Chest pain that is sharp pressure Informant: patient Onset/Context/Timing Onset: Today and Yesterday (Yesterday after walking to the dog raiser and today after activity) Activity at onset: sudden Timing: Intermittent Quality: Positive for Dull and Pressure Location: - (Mid to left of center) Current Severity: Mild Maximum Severity: Severe Worsened By: Exertion Relieved By: NTG Associated Symptoms: Positive for Nausea and Dyspnea; Negative for Vomiting, Diaphoresis, Cough, Fever, Lightheadedness, Acid Reflux or Palpitations Narrative Narrative: Patient is a 84-year-old female. She has known coronary artery disease. She is status post bypass graft surgery with aortic valve replacement in 2013. The right coronary artery had minimal disease. She underwent a TAVR are procedure. November 2021. She had to have this done otherwise they would not operate on her for her gallbladder disease. She has an EF of 45%. She also has a history of peripheral arterial disease and is scheduled to see Dr. Guzmán. She does not give symptoms of claudication.. She also states she has carotid disease is pretty significant. She has not had a stroke.. Patient she was admitted earlier this year. For a pneumothorax and hemothorax. She was transferred to a tertiary center, [facility]. Per nurse practitioner Nithya Duval patient was doing well from a cardiac standpoint. She did make comment that patient been having intermittent chest pain and is located on the left side. That this does occur with exertion. She also admits to me that she has had some palpitations. She has not checked her heart rate to see if it is rapid. Today she had chest discomfort with activity with nausea and dyspnea. Patient does have some chronic orthopnea. It is unchanged. She does have some mild edema of her lower extremities. She has been sitting more. Today she required 3 nitroglycerin to alleviate her significant pain. She has a mild discomfort that she describes on the left side at this time. Prior Similar Symptoms: Yes and With Prior Angina CVD Risk Factors: Positive for Hypertension, Diabetes, Hypercholesterolemia and Smoking (Former) PE Risk Factors: Negative for Recent Travel/Surgery, Recent Immobilization, Prior DVT or PE, Cancer or OCP + Smoking + >/=35 TAD Risk Factors: Positive for Hypertension; Negative for Marfan's Syndrome or Family History [facility] Medical History Carotid occlusion, bilateral Cervical radiculopathy Coronary artery disease Pneumothorax Pericardial effusion Bilateral carotid artery stenosis Pulmonary artery hypertension History of diabetes mellitus Anemia History of stress test History of echocardiogram Wears glasses Wears dentures Cancer Walker as ambulation aid High cholesterol PONV (postoperative nausea and vomiting) TIA (transient ischemic attack) History of GI bleed Gastric reflux Chronic cough History of edema Cardiology follow-up encounter Heart murmur Anemia Gastrointestinal bleeding Gastric AVM Duodenal arteriovenous malformation Former smoker Hypertension Anemia Gastrointestinal bleeding, upper Over 65 years old Biliary colic Iron deficiency anemia due to chronic blood loss Severe aortic stenosis History of coronary artery disease History of left heart catheterization (LHC) (~07/14/20) Type 2 diabetes mellitus TIA (transient ischemic attack) Nonrheumatic aortic (valve) stenosis Jayson's syndrome Pure hypercholesterolemia Paroxysmal atrial fibrillation Essential hypertension Atherosclerotic heart disease of [place] coronary artery without angina pectoris Sleep disorder breathing GERD (gastroesophageal reflux disease) Psoriasis CAD (coronary artery disease) Osteoarthritis Sleep disorder Tobacco abuse [place] (obstructive sleep apnea) Home Medications ?Medication ?Instructions ?Recorded ?Last Taken ?Type ezetimibe 10 mg tablet 10 mg PO QHS cholesterol 09/01/13 03/03/25 History pantoprazole 40 mg tablet,delayed 40 mg PO DAILY gerd 09/01/13 03/04/25 History release clopidogrel 75 mg tablet 75 mg PO DAILY blood thinner 04/18/21 03/04/25 History metoprolol tartrate 50 mg tablet 50 mg PO Q12H blood pressure 06/09/23 03/04/25 History potassium chloride 10 mEq 10 meq PO DAILY LASIX #30 tabs 06/11/23 03/03/25 Rx tablet,extended release calcipotriene-betamethasone 0.005 1 applic topical DAILY PRN PSORASIS 03/06/24 03/03/25 History %-0.064 % topical ointment acetaminophen 500 mg tablet 500 mg PO Q6H PRN PAIN/FEVER 07/20/24 Unknown History (Tylenol Extra Strength) furosemide 40 mg tablet 40 mg PO QAM SWELLING 07/20/24 03/03/25 History niacin 500 mg tablet 1,000 mg PO BID 03/04/25 Unknown History nitroglycerin 0.4 mg sublingual 0.4 mg sublingual Q5M PRN Chest 04/02/25 Unknown Rx tablet Pain #25 tabs Allergy/AdvReac Type Severity Reaction Status Date / Time Sulfa (Sulfonamide Allergy Severe HEART Verified 04/03/25 13:17 Antibiotics) RACING blue dye Allergy Intermediate Swelling Verified 04/03/25 13:17 yellow dye Allergy Intermediate Swelling Verified 04/03/25 13:17 Latex, Natural Rubber Allergy Rash, Verified 04/03/25 13:17 psioriasis amoxicillin (From Augmentin) AdvReac Nausea Verified 04/03/25 13:17 atorvastatin (From Lipitor) AdvReac Other Verified 04/03/25 13:17 clavulanic acid (From AdvReac Nausea Verified 04/03/25 13:17 Augmentin) Iodinated Contrast Media AdvReac Other Verified 04/03/25 13:17 (CONTRASTS) lisinopril AdvReac Other Verified 04/03/25 13:17 red dye AdvReac NEEDS Verified 04/03/25 13:17 FOLLOW-UP rosuvastatin (From Crestor) AdvReac Other Verified 04/03/25 13:17 turkey AdvReac Rash Verified 04/03/25 13:17 Family History Mother Heart disease Diabetes Breast cancer Hypertension Father Heart disease Cancer Sister Cancer COPD (chronic obstructive pulmonary disease) Surgical History S/P insertion of iliac artery stent History of cholecystectomy S/P TAVR (transcatheter aortic valve replacement) History of cardiac catheterization History of esophagogastroduodenoscopy (EGD) Hx of colonoscopy History of heart valve replacement History of tubal ligation History of bilateral carotid endarterectomy History of left mastectomy (~1998) History of right mastectomy (~1998) History of aortic valve replacement with bioprosthetic valve (~09/06/13) History of coronary artery bypass surgery (~09/06/13) Social History household members: none housing: house Smoking Status: Former smoker how long ago did patient quit smokin second hand exposure: No alcohol intake: never substance use type: does not use caffeine: Yes Type: coffee Number of servings: 2 and tea what type of physical activity do you participate in: none franci/voodoo: Bahai seatbelt use: always do you feel safe at home: Yes ROS ROS ED Constitutional Constitutional ED: Denies chills, fever(s), subjective, sweats or weight loss Eyes Eyes: Reports none ENT ENT ED: Denies ear pain or rhinorrhea Cardiovascular Cardiovascular: Reports as per HPI; Denies orthopnea or paroxysmal nocturnal dyspnea Respiratory/Chest Respiratory/Chest: Reports dyspnea on exertion; Denies cough, dyspnea, orthopnea or paroxysmal nocturnal dyspnea Gastrointestinal Gastrointestinal: Denies abdominal pain, diarrhea, nausea or vomiting Genitourinary Genitourinary ED: Denies dysuria, hematuria or urinary frequency Musculoskeletal Musculoskeletal: Denies arthralgias, back pain or myalgias Integumentary Denies rash Neurologic Neurologic: Denies paresthesias or weakness Psychiatric Psychiatric: Denies anxiety or depression Endocrine Endocrinology: Denies cold intolerance or heat intolerance Hematologic/Lymphatic Hematologic/Lymphatic: Denies easy bleeding or easy bruising Allergic/Immunologic Allergic/Immunologic ED: Denies mouth swelling or tongue swelling EXAM Physical Exam Const Vital Signs: 04/03/25 13:13 04/03/25 13:20 04/03/25 13:37 Temperature 97.7 F L Temperature Source Oral Pulse Rate 79 Respiratory Rate 12 Respiratory Effort Normal Blood Pressure 140/66 H Blood Pressure Mean 90 Pulse Ox 100 Oxygen Delivery Method Room Air Room Air 04/03/25 14:00 04/03/25 14:13 04/03/25 14:30 Temperature Temperature Source Pulse Rate 68 75 83 Respiratory Rate 15 21 H 14 Respiratory Effort Blood Pressure 125/51 H 125/51 H Blood Pressure Mean 75 75 Pulse Ox 97 95 100 Oxygen Delivery Method Room Air 04/03/25 15:02 04/03/25 16:00 04/03/25 17:00 Temperature Temperature Source Pulse Rate 108 H 115 H 99 Respiratory Rate 16 21 H 17 Respiratory Effort Blood Pressure 159/84 H 150/81 H 165/65 H Blood Pressure Mean 109 102 98 Pulse Ox 92 98 100 Oxygen Delivery Method Room Air Positive well nourished and well developed General Appearance ED: well developed and NAD HEENT Reports TM's clear and moist mucous membranes normocephalic and atraumatic Tympanic Membrane ED: Yes TM's clear Eyes PERRL and EOMs intact bilaterally General Eye ED: Negative for pale conjunctiva or scleral icterus Neck no lymphadenopathy, supple and no JVD Chest Wall inspection of chest normal and palpation of chest normal Chest Narrative: Median sternotomy scar noted. The scar is well-healed. Resp normal respiratory effort and clear to auscultation bilaterally Cardio regular rate, regular rhythm, S1 normal heart sound and S2 normal heart sound Peripheral Pulses: radial pulses present and dorsalis pedis pulses present; Negative for posterior tibial pulses present GI normal to inspection, nondistended, normoactive bowel sounds, soft to palpation, non-tender, non-distended and no masses; Negative for hepatosplenomegaly GI Narrative: There is no palpable pulsatile mass. There is no abdominal bruit. Extremity Extremity Narrative: Very minimal pitting edema. Neuro oriented x3, CN's II-XII intact bilaterally and no sensory deficits noted Sensorium / Orientation: awake and alert Psych mental status grossly normal Skin no rashes or lesions noted and no wounds MDM MDM MDM Narrative Medical decision making narrative: Differential diagnosis is noncardiac versus cardiac. Noncardiac would include GERD, chest pain of unknown etiology, pneumonia, history and physical not consistent with thoracic aortic dissection, pulmonary embolus. History and physical is concerning for angina especially since the discomfort today radiated to her right shoulder and arm which raises concern for cardiac since this would indicate a 3 times likelihood of this being cardiac. History & Record Review Discussion w/independent historian: Patient Lab Data Attestation: I reviewed the patient's lab results. Lab results narrative: CBC reveals mild anemia with normal indices. Labs: Laboratory Results - last 24 hr 04/03/25 04/03/25 13:00 15:04 WBC 7.6 RBC 3.59 L Hgb 10.5 L Hct 33.9 L MCV 94.4 MCH 29.2 MCHC 31.0 L RDW Std Deviation 50.7 H RDW Coeff of Velasquez 14.8 H Plt Count 279 MPV 10.6 Immature Gran % (Auto) 0.300 Neut % (Auto) 73.7 H Lymph % (Auto) 11.6 L [place] % (Auto) 10.3 H Eos % (Auto) 3.4 Baso % (Auto) 0.7 Absolute Neuts (auto) 5.6 Absolute Lymphs (auto) 0.88 Nucleated RBC % 0 Sodium 141 Potassium 4.0 Chloride 98 Carbon Dioxide 28.1 Anion Gap 15 BUN 14 Creatinine 1.35 H Est GFR (MDRD) Non-Af 39 L BUN/Creatinine Ratio 10.2 Glucose 125 H Calcium 9.3 Troponin T High Sens 34 H Troponin T Hi Sens 2 Hr 30 H Radiography Chest X-Ray - ED: 1 View and Read by ED Physician (Single view portable chest x-ray independent review interpreted by me at 1405 reveals no acute process. Cardiac silhouette and size unremarkable. There is some mild chronic changes of the lung parenchyma. There is no effusion, cephalization or infiltrate. Osseous structures reveal no acute abnor) Diagnostic Testing: Clinical Impression(s) from Imaging Studies Chest X-Ray 04/03/25 13:35 IMPRESSION: No Acute Findings. Reading Location: [facility] EKG Initial EKG: Attestation: I personally reviewed and interpreted this EKG as follows: Interpretation: Sinus Rhythm (69 is the rate. She has a left bundle branch block. There is no acute ischemic changes. UT interval is under 70 ms. QS duration 50 ms. QT durations 452 ms.) Management Discussion w/another healthcare provider: Hospitalist (Hospitalist was paged.) and Supervisor Curing Room (Dr. Hernandez who is on-call for the [place] [facility] has been paged. Dr. Ari Hernandez did see patient. He recommended bringing patient in overnight in light of her multiple risk factors even though her troponin is flat .) Treatment and Re-Evaluation :: Monitor reveals wide-complex irregularity. This is either A-fib, paroxysmal, versus sinus with frequent ventricular premature beats, monophasic, with nonsustained V. tach up to 6 or 7 beats. If it A-fib this may represent a parent beats and could possibly be Adarsh's phenomenon. Discharge Plan Dx/Rx/DC Orders Clinical Impression: Exertional chest pain, Coronary artery disease, Hypertension, Hyperlipidemia, Type 2 diabetes mellitus, PAD (peripheral artery disease), S/P insertion of iliac artery stent Disposition Disposition: Acute Care Hospital [facility]
[2025-04-03 14:29] LABS: Anion Gap 15 (5-15); BUN 14 mg/dL (4-19); BUN/Creat Ratio 10.2 RATIO (10-20); Calcium,Total 9.3 mg/dL (7.6-11.0); Carbon Dioxide 28.1 mmol/L (21.0-32.0); Chloride 98 mmol/L (98-108); Glucose 125 mg/dL (70-99); Potassium 4.0 mmol/L (3.3-5.1); Troponin T High Sensitivity 34 ng/L (<=14)
[2025-04-03 15:37] LABS: Troponin T High Sens 2 HR 30 ng/L (<=14)
--- NOTE | 2025-04-03 17:08 | PCM.CONS.C ---
Assessment & Plan Assessment/Plan (1) Chest pain: PLAN: - Described as sudden, unpredictable, 7 out of 10 severity, located just inferior to the nipple, nonradiating, stabbing in character. Patient denies any chest pain like this previously, and notes no predictable exertional symptoms - HST: 34-->30, (baseline 30s to 50s), EKG with left bundle branch block, unchanged from previous - Troponins elevated in the setting of severe chronic coronary disease/chronic myocardial injury and also in the setting of CKD, current creatinine 1.35 - Etiology of chest pain is likely musculoskeletal; presentation is not consistent with ACS and possibly progression of stable angina - Patient currently chest pain-free and hemodynamically stable Recommendations - Admit overnight to monitor for recurrence of chest pain in light of significant history - Activity as tolerated, please draw troponins and repeat EKG if patient has any more episodes of chest pain - Continue home metoprolol tartrate 50 mg every 12 hours - Continue Plavix 75 mg daily, Zetia 10 mg daily, furosemide 40 mg daily - Goal blood pressure is less than 130/80 can trial amlodipine 5 mg daily for blood pressure control if no allergies/contraindication - Will determine need for any repeat cardiac testing tomorrow HPI Consult Data Date of Consult: 04/03/25 HPI Narrative Reason for Consultation: Chest pain HPI Narrative: SAMMY SOLOMON, is a 84 F with past medical history of CABG and surgical bioprosthetic aortic valve replacement in 2013, valve in valve TAVR in 2021, peripheral vascular disease status post right internal iliac stent, bilateral carotid artery stenosis greater than 70%, history of spontaneous pneumothorax requiring admission in 05/2024. Cardiology consulted for chest pain. Home medications include: Plavix 75 mg daily, Zetia 10 mg daily, Lasix 40 mg daily, metoprolol tartrate 50 mg daily every 12, pantoprazole 40 mg daily. Patient does not appear to be on a statin. Patient seen at bedside in the ED. Patient admits that earlier today at approximately 930-10 AM, she began to feel sudden onset stabbing pain directly over her nipple area. She felt this after arising from the couch and walking to the bathroom. This pain did not radiate and remained constant for around 20-30 minutes. She describes it as a few episodes of shooting pain that then remain remained constant, severity 7 out of 10. She has experienced brief shooting/stabbing pains in her nipple and rib area. However, usually this just lasted a couple seconds and had not lasted minutes. She notably saw Nithya Duval NP at [facility] yesterday. She notes that she had a few episodes of shooting type pain on the way at the elevator. This only lasted seconds to under 2 minutes. She has had this pain before, and so this did not worry her. She called EMS because the pain was unrelenting. She was chest pain-free on arrival to [facility] ED. She notes she was moving heavy furniture 2 days ago, pushing it 30 to 60 feet across her trailer. HST: 34 (1300)--> 30 (1504). She has baseline troponin elevation at 30s to 50s. EKG was unchanged and showed left bundle branch block. Patient is currently hemodynamically stable, asymptomatic since her episode at 10AM. She is having PVCs on the monitor, for which she is asymptomatic. [facility] Medical History Carotid occlusion, bilateral Cervical radiculopathy Coronary artery disease Pneumothorax Pericardial effusion Bilateral carotid artery stenosis Pulmonary artery hypertension History of diabetes mellitus Anemia History of stress test History of echocardiogram Wears glasses Wears dentures Cancer Walker as ambulation aid High cholesterol PONV (postoperative nausea and vomiting) TIA (transient ischemic attack) History of GI bleed Gastric reflux Chronic cough History of edema Cardiology follow-up encounter Heart murmur Anemia Gastrointestinal bleeding Gastric AVM Duodenal arteriovenous malformation Former smoker Hypertension Anemia Gastrointestinal bleeding, upper Over 65 years old Biliary colic Iron deficiency anemia due to chronic blood loss Severe aortic stenosis History of coronary artery disease History of left heart catheterization (LHC) (~07/14/20) Type 2 diabetes mellitus TIA (transient ischemic attack) Nonrheumatic aortic (valve) stenosis Jayson's syndrome Pure hypercholesterolemia Paroxysmal atrial fibrillation Essential hypertension Atherosclerotic heart disease of [place] coronary artery without angina pectoris Sleep disorder breathing GERD (gastroesophageal reflux disease) Psoriasis CAD (coronary artery disease) Osteoarthritis Sleep disorder Tobacco abuse [place] (obstructive sleep apnea) Home Medications ?Medication ?Instructions ?Recorded ?Last Taken ?Type ezetimibe 10 mg tablet 10 mg PO QHS cholesterol 09/01/13 03/03/25 History pantoprazole 40 mg tablet,delayed 40 mg PO DAILY gerd 09/01/13 03/04/25 History release clopidogrel 75 mg tablet 75 mg PO DAILY blood thinner 04/18/21 03/04/25 History metoprolol tartrate 50 mg tablet 50 mg PO Q12H blood pressure 06/09/23 03/04/25 History potassium chloride 10 mEq 10 meq PO DAILY LASIX #30 tabs 06/11/23 03/03/25 Rx tablet,extended release calcipotriene-betamethasone 0.005 1 applic topical DAILY PRN PSORASIS 03/06/24 03/03/25 History %-0.064 % topical ointment acetaminophen 500 mg tablet 500 mg PO Q6H PRN PAIN/FEVER 07/20/24 Unknown History (Tylenol Extra Strength) furosemide 40 mg tablet 40 mg PO QAM SWELLING 07/20/24 03/03/25 History niacin 500 mg tablet 1,000 mg PO BID 03/04/25 Unknown History nitroglycerin 0.4 mg sublingual 0.4 mg sublingual Q5M PRN Chest 04/02/25 Unknown Rx tablet Pain #25 tabs Allergy/AdvReac Type Severity Reaction Status Date / Time Sulfa (Sulfonamide Allergy Severe HEART Verified 04/03/25 13:17 Antibiotics) RACING blue dye Allergy Intermediate Swelling Verified 04/03/25 13:17 yellow dye Allergy Intermediate Swelling Verified 04/03/25 13:17 Latex, Natural Rubber Allergy Rash, Verified 04/03/25 13:17 psioriasis amoxicillin (From Augmentin) AdvReac Nausea Verified 04/03/25 13:17 atorvastatin (From Lipitor) AdvReac Other Verified 04/03/25 13:17 clavulanic acid (From AdvReac Nausea Verified 04/03/25 13:17 Augmentin) Iodinated Contrast Media AdvReac Other Verified 04/03/25 13:17 (CONTRASTS) lisinopril AdvReac Other Verified 04/03/25 13:17 red dye AdvReac NEEDS Verified 04/03/25 13:17 FOLLOW-UP rosuvastatin (From Crestor) AdvReac Other Verified 04/03/25 13:17 turkey AdvReac Rash Verified 04/03/25 13:17 Family History Mother Heart disease Diabetes Breast cancer Hypertension Father Heart disease Cancer Sister Cancer COPD (chronic obstructive pulmonary disease) Surgical History S/P insertion of iliac artery stent History of cholecystectomy S/P TAVR (transcatheter aortic valve replacement) History of cardiac catheterization History of esophagogastroduodenoscopy (EGD) Hx of colonoscopy History of heart valve replacement History of tubal ligation History of bilateral carotid endarterectomy History of left mastectomy (~1998) History of right mastectomy (~1998) History of aortic valve replacement with bioprosthetic valve (~09/06/13) History of coronary artery bypass surgery (~09/06/13) Social History household members: none housing: house Smoking Status: Former smoker how long ago did patient quit smokin second hand exposure: No alcohol intake: never substance use type: does not use caffeine: Yes Type: coffee Number of servings: 2 and tea what type of physical activity do you participate in: none franci/cheondoism: Confucianism seatbelt use: always do you feel safe at home: Yes ROS ROS Narrative 14 point ROS reviewed, and negative less specified in HPI above. Physical Exam Narrative ?Gen: A&Ox3, NAD ?HEENT: Normocephalic/Atraumatic, MMM ?Neck: Supple, no JVD ?Pulm: Normal work of breathing, CTA bilaterally with no wheezes or crackles ?CV: RRR, normal S1/S2, no m/r/g ?Abd: Soft, NT/ND ?Extr: Warm to touch, no LE edema, distal pulses intact and symmetric in upper and lower extremities ?Neuro: No gross focal deficits, normal speech ?Psych: Normal affect, answers questions appropriately Objective Data Vital Signs: Vital Signs Temp Pulse Resp BP Pulse Ox O2 Del Method 97.7 F L 115 H 21 H 150/81 H 98 Room Air 04/03/25 13:13 04/03/25 16:00 04/03/25 16:00 04/03/25 16:00 04/03/25 16:00 04/03/25 14:13 Oxygen Delivery Method Room Air Intake & Output: Intake and Output for Last 24 Hours 04/01/25 04/02/25 04/03/25 23:59 23:59 23:59 Intake Total 0 / 0 Balance 0 / 0 Lab / Micro Data 04/03/25 13:00 04/03/25 13:00 Labs: Laboratory Results - last 24 hr 04/03/25 13:00: WBC 7.6, RBC 3.59 L, Hgb 10.5 L, Hct 33.9 L, MCV 94.4, MCH 29.2, MCHC 31.0 L, RDW Std Deviation 50.7 H, RDW Coeff of Velasquez 14.8 H, Plt Count 279, MPV 10.6, Immature Gran % (Auto) 0.300, Neut % (Auto) 73.7 H, Lymph % (Auto) 11.6 L, [place] % (Auto) 10.3 H, Eos % (Auto) 3.4, Baso % (Auto) 0.7, Absolute Neuts (auto) 5.6, Absolute Lymphs (auto) 0.88, Nucleated RBC % 0, Sodium 141, Potassium 4.0, Chloride 98, Carbon Dioxide 28.1, Anion Gap 15, BUN 14, Creatinine 1.35 H, Est GFR (MDRD) Non-Af 39 L, BUN/Creatinine Ratio 10.2, Glucose 125 H, Calcium 9.3, Troponin T High Sens 34 H 04/03/25 15:04: Troponin T Hi Sens 2 Hr 30 H ABG Data Interpretation: Chest CTA 06/30/2024 IMPRESSION: No evidence of filling defect to suggest pulmonary embolism. Status post median sternotomy, aortic valve stent and left atrial appendage closure device again noted. Cardiomegaly. No pericardial effusion. Reflux of contrast into the inferior vena cava and hepatic veins can be seen with degree of right heart dysfunction, nonspecific. Small left larger than right pleural effusions. No pneumothorax. The central airways are patent. Diffuse bronchial wall thickening may represent bronchitis, nonspecific. Septal thickening may represent mild interstitial edema. Vlri-dzzbovf-bsii-right base platelike areas of atelectasis which is confluent with the subpleural noncalcified pulmonary nodule in the left lower lobe limiting its evaluation. Correlate with history. No focal consolidation. Enlarged pretracheal node axial 163 again seen. Ectatic thoracic aorta appears unchanged. No dissection identified. Atherosclerotic changes again noted. There is now branching air within the left lobe of the liver most suggestive of pneumobilia, correlate for possible history of sphincterotomy. Carotid Duplex Ultrasound 06/01/2024 Interpretation Summary Severe (>70%) stenosis right extracranial internal carotid. Severe (>70%) stenosis left extracranial internal carotid. Patent and antegrade vertebrals bilaterally. Echocardiogram 06/10/2023 Interpretation Summary The estimated ejection fraction is 45 %. Unable to assess diastolic dysfunction. Mild (1+) mitral valve insufficiency. There is mild biatrial dilatation. Zio Monitor 11/25/2021 Interpretation Patient had a minimum HR of 56 BPM Maximum HR of 226 BPM Average HR of 89 BPM Predominant underlying rhythm was sinus rhythm. Bundle Branch Block/IVCD was present. 1 run of ventricular tachycardia occurred lasting 5 beats with a max rate of 162 BPM (avg 135 BPM). 8 supraventricular tachycardia runs occurred, the run with the fastest interval lasting 5 beats with a maximum rate of 226 BPM, the longest lasting 18 beats with an average rate of 130 BPM. Some episodes of supraventricular tachycardia may be possible atrial tachycardia with variable block. Isolated SVE's were rare, SVE couplets were rare, and SVE triplets were rare. Isolated VE's were rare, VE couplets were rare, and no VET triplets were present. Ventricular bigeminy and trigeminy were present. Cardiac Catheterization 07/14/2020 Coronary Angiography Left Main: Large caliber vessel with mild diffuse disease Left Anterior Descending: Large caliber vessel. The proximal vessel has mild diffuse disease as do the first and second diagonal branches. The mid distal vessel has a severe stenosis. Circumflex: Moderate caliber nondominant vessel occluded in the midportion of the vessel. Right Coronary Artery: Large caliber dominant vessel with mild diffuse disease Collaterals: None Grafts: YOO-LAD: Patent graft anastomosed to the mid distal LAD. The apical and distal LAD have mild to moderate diffuse disease SVG-OM: Large graft with minimal disease. Is anastomose the obtuse marginal branches. The tejon vessel have mild diffuse disease Stress Test 05/15/2020 Impression: 1. Pharmacologic (Regadenoson) evaluation 2. Peak pharmacologic ECG with no obvious ECG changes. 3. There were no cardiac dysrhythmias pretest, during pharmacologic infusion, or recovery. 4. Nuclear images pending Impression: 1. Rest and stress SPECT Cardiolite nuclear imaging demonstrate relative uniform tracer uptake and myocardial perfusion appearing within normal limits. 2. The gated Cardiolite study reports an LVEF of 59%. Cardiology Labs/Tests 04/03/25 13:00: WBC 7.6, RBC 3.59 L, Hgb 10.5 L, Hct 33.9 L, MCV 94.4, MCH 29.2, MCHC 31.0 L, Plt Count 279, MPV 10.6, Immature Gran % (Auto) 0.300, Neut % (Auto) 73.7 H, Lymph % (Auto) 11.6 L, [place] % (Auto) 10.3 H, Eos % (Auto) 3.4, Baso % (Auto) 0.7, Absolute Neuts (auto) 5.6, Nucleated RBC % 0, Sodium 141, Potassium 4.0, Chloride 98, Carbon Dioxide 28.1, Anion Gap 15, BUN 14, Creatinine 1.35 H, Est GFR (MDRD) Non-Af 39 L, BUN/Creatinine Ratio 10.2, Glucose 125 H, Calcium 9.3 Rhythm: EKG: ECHO: Stress Test: Cardiac Cath: PCI: CT Surgery: Holter monitor: EPS: PPM: CXR: Chest CT Scan: Radiography Diagnostic Testing: Radiology Impression Chest X-Ray 04/03/25 13:35 IMPRESSION: No Acute Findings. Reading Location: [facility] Risk Score for UA/STEMI Assesmment (YES = 1) Risk Stratification Applicable: No
[2025-04-03 18:10] LABS: Troponin T High Sens 4 HR 28 ng/L (<=14)
--- NOTE | 2025-04-03 18:12 | HP.PCM.HOS_ITS ---
HPI - General General Date of Service: 04/03/25 Chief Complaint: Chest pain HPI Narrative SAMMY SOLOMON, is a 84 F who presents complaining of chest pain today. Patient is complaining of left-sided chest pain that was pressure-like radiating up into her right arm and then up into her jaw. Presented to the emergency room. Was seen here last month for similar and had some troponins are elevated at that time and discussion with cardiology at that time patient was discharged home. Patient was seen by cardiology here recommends be patient being brought into determine if any additional testing would be necessary. Patient is experiencing palpitations in her chest. No shortness of breath. [ ] [facility] Medical History Carotid occlusion, bilateral Cervical radiculopathy Coronary artery disease Pneumothorax Pericardial effusion Bilateral carotid artery stenosis Pulmonary artery hypertension History of diabetes mellitus Anemia History of stress test History of echocardiogram Wears glasses Wears dentures Cancer Walker as ambulation aid High cholesterol PONV (postoperative nausea and vomiting) TIA (transient ischemic attack) History of GI bleed Gastric reflux Chronic cough History of edema Cardiology follow-up encounter Heart murmur Anemia Gastrointestinal bleeding Gastric AVM Duodenal arteriovenous malformation Former smoker Hypertension Anemia Gastrointestinal bleeding, upper Over 65 years old Biliary colic Iron deficiency anemia due to chronic blood loss Severe aortic stenosis History of coronary artery disease History of left heart catheterization (LHC) (~07/14/20) Type 2 diabetes mellitus TIA (transient ischemic attack) Nonrheumatic aortic (valve) stenosis Jayson's syndrome Pure hypercholesterolemia Paroxysmal atrial fibrillation Essential hypertension Atherosclerotic heart disease of [place] coronary artery without angina pectoris Sleep disorder breathing GERD (gastroesophageal reflux disease) Psoriasis CAD (coronary artery disease) Osteoarthritis Sleep disorder Tobacco abuse [place] (obstructive sleep apnea) Home Medications ?Medication ?Instructions ?Recorded ?Last Taken ?Type ezetimibe 10 mg tablet 10 mg PO QHS cholesterol 02/0503/03/25 History pantoprazole 40 mg tablet,delayed 40 mg PO DAILY gerd 09/01/13 03/04/25 History release clopidogrel 75 mg tablet 75 mg PO DAILY blood thinner 04/18/21 03/04/25 History metoprolol tartrate 50 mg tablet 50 mg PO Q12H blood p ressure 06/09/23 03/04/25 History potassium chloride 10 mEq 10 meq PO DAILY LASIX #30 ta bs 06/11/23 03/03/25 Rx tablet,extended release calcipotriene-betamethasone 0.005 1 applic topical ISAAC LY PRN PSORASIS 03/06/24 03/03/25 History %-0.064 % topical ointment acetaminophen 500 mg tablet 500 mg PO Q6H PRN PAIN/FEV ER 07/20/24 Unknown History (Tylenol Extra Strength) furosemide 40 mg tablet 40 mg PO QAM SWELLING 03/03/25 History niacin 500 mg tablet 1,000 mg PO BID 03/04/25 Unk nown History nitroglycerin 0.4 mg sublingual 0.4 mg sublingual Q5M PRN Chest 04/02/25 Unknown Rx tablet Pain #25 tabs Allergy/AdvReac Type Severity Reaction Status Date / Time Sulfa (Sulfonamide Allergy Severe HEART Verified 04/03/25 13:17 Antibiotics) RACING blue dye Allergy Intermediate Swelling Verified 04/03/25 13:17 yellow dye Allergy Intermediate Swelling Verified 04/03/25 13:17 Latex, Natural Rubber Allergy Rash, Verified 04/03/25 13:17 psioriasis amoxicillin (From Augmentin) AdvReac Nausea Verified 04/03/25 13:17 atorvastatin (From Lipitor) AdvReac Other Verified 04/03/25 13:17 clavulanic acid (From AdvReac Nausea Verified 04/03/25 13:17 Augmentin) Iodinated Contrast Media AdvReac Other Verified 04/03/25 13:17 (CONTRASTS) lisinopril AdvReac Other Verified 04/03/25 13:17 red dye AdvReac NEEDS Verified 04/03/25 13:17 FOLLOW-UP rosuvastatin (From Crestor) AdvReac Other Verified 04/03/25 13:17 turkey AdvReac Rash Verified 04/03/25 13:17 Family History Mother Heart disease Diabetes Breast cancer Hypertension Father Heart disease Cancer Sister Cancer COPD (chronic obstructive pulmonary disease) Surgical History S/P insertion of iliac artery stent History of cholecystectomy S/P TAVR (transcatheter aortic valve replacement) History of cardiac catheterization History of esophagogastroduodenoscopy (EGD) Hx of colonoscopy History of heart valve replacement History of tubal ligation History of bilateral carotid endarterectomy History of left mastectomy (~1998) History of right mastectomy (~1998) History of aortic valve replacement with bioprosthetic valve (~09/06/13) History of coronary artery bypass surgery (~09/06/13) Social History household members: none housing: house Smoking Status: Former smoker how long ago did patient quit smokin second hand exposure: No alcohol intake: never substance use type: does not use caffeine: Yes Type: coffee Number of servings: 2 and tea what type of physical activity do you participate in: none franci/tenriism: Sikh seatbelt use: always do you feel safe at home: Yes ROS ROS Narrative All review of systems were negative except as mentioned above in the history of present illness and the other review of systems. Vital Signs Vital Signs Vital Signs: 04/03/25 13:13 04/03/25 13:20 04/03/25 13:37 Temperature 36.5 C L Temperature Source Oral Pulse Rate 79 Respiratory Rate 12 Respiratory Effort Normal Blood Pressure 140/66 H Blood Pressure Mean 90 Pulse Ox 100 Oxygen Delivery Method Room Air Room Air 04/03/25 14:00 04/03/25 14:13 04/03/25 14:30 Temperature Temperature Source Pulse Rate 68 75 83 Respiratory Rate 15 21 H 14 Respiratory Effort Blood Pressure 125/51 H 125/51 H Blood Pressure Mean 75 75 Pulse Ox 97 95 100 Oxygen Delivery Method Room Air 04/03/25 15:02 04/03/25 16:00 04/03/25 17:00 Temperature Temperature Source Pulse Rate 108 H 115 H 99 Respiratory Rate 16 21 H 17 Respiratory Effort Blood Pressure 159/84 H 150/81 H 165/65 H Blood Pressure Mean 109 102 98 Pulse Ox 92 98 100 Oxygen Delivery Method Room Air Physical Exam Const alert and no apparent distress HEENT normocephalic and head/scalp atraumatic Resp normal respiratory effort, no retractions, no use of accessory muscles and clear to auscultation bilaterally Cardio regular rate, regular rhythm, S1 normal heart sound and S2 normal heart sound Cardio Narrative: Visible pulsations of the heart over the left chest. GI normal to inspection, nondistended, normoactive bowel sounds, soft to palpation, non-tender and non-distended Neuro Sensorium / Orientation: awake, alert, oriented to person, oriented to place and oriented to time Psych affect normal Results Lab / Micro Data Attestation: I reviewed the patient's lab results. 04/03/25 13:00 04/03/25 13:00 Labs: Laboratory Results - last 24 hr 04/03/25 13:00: WBC 7.6, RBC 3.59 L, Hgb 10.5 L, Hct 33.9 L, MCV 94.4, MCH 29.2, MCHC 31.0 L, RDW Std Deviation 50.7 H, RDW Coeff of Velasquez 14.8 H, Plt Count 279, MPV 10.6, Immature Gran % (Auto) 0.300, Neut % (Auto) 73.7 H, Lymph % (Auto) 11.6 L, [place] % (Auto) 10.3 H, Eos % (Auto) 3.4, Baso % (Auto) 0.7, Absolute Neuts (auto) 5.6, Absolute Lymphs (auto) 0.88, Nucleated RBC % 0, Sodium 141, Potassium 4.0, Chloride 98, Carbon Dioxide 28.1, Anion Gap 15, BUN 14, C reatinine 1.35 H, Est GFR (MDRD) Non-Af 39 L, BUN/Creatinine Ratio 10.2, Glucose 125 H, Calcium 9.3, Troponin T High Sens 34 H 04/03/25 15:04: Troponin T Hi Sens 2 Hr 30 H 04/03/25 17:30: Troponin T Hi Sens 4Hr 28 H EKG Initial EKG: Attestation: I personally reviewed and interpreted this EKG as follows: Prior EKG tracings: available for review EKG Rhythm Intrepretation: Sinus Rhythm (Left bundle branch block.) Imaging Radiology Impression Chest X-Ray 04/03/25 13:35 IMPRESSION: No Acute Findings. Reading Location: [facility] Assessment & Plan Assessment/Plan (1) Chest pain: PLAN: In the setting of PAD. Patient will be brought into the hospital under observation status. Consultation to cardiology. Will put an order for a stress test in case cardiology decides for it to be done that we do not delay her stay by another day by waiting on her having stress test. Cardiology does not feel the patient needs a stress test and that could be canceled. Troponins are elevated though this appears to be more chronic than actually an acute issue. Not associated with demand ischemia or primary event either. Will start the patient on aspirin PLAN: Plan PAD: Continue with clopidogrel VTE prophylaxis: Low risk given observation status. CODE STATUS: I discussed with the patient and the patient at this point in time wishes to be full code. Charges/Coding Visit Charges Inpatient E&M: 32257 Init Hosp L2
[2025-04-03] MEDS: 0.9% Saline Lock 10 ML Syringe IV (20:20)
--- NOTE | 2025-04-03 20:25 | EKG12_ITS ---
Test Reason : CP ADMIT Blood Pressure : */* mmHG Vent. Rate : 91 BPM Atrial Rate : 91 BPM P-R Int : 212 ms QRS Dur : 152 ms QT Int : 404 ms P-R-T Axes : 87 -29 119 degrees QTcB Int : 496 ms Sinus rhythm with 1st degree A-V block Left bundle branch block Abnormal ECG When compared with ECG of 03-Apr-2025 17:37, MANUAL COMPARISON REQUIRED DATA IS UNCONFIRMED Confirmed by CHRISTINA DELGADILLO, JANE ([id number]), associate editor CHRISTIN BARTHOLOMEW ([id number]) on 04/08/2025 8:54:32 AM Referred By: KEIRA Confirmed By: JANE VASQUEZ MD
--- NOTE | 2025-04-03 20:40 | EKG12_ITS ---
Test Reason : cp Blood Pressure : */* mmHG Vent. Rate : 69 BPM Atrial Rate : 69 BPM P-R Int : 170 ms QRS Dur : 158 ms QT Int : 452 ms P-R-T Axes : 69 -28 125 degrees QTcB Int : 484 ms Normal sinus rhythm Left bundle branch block Abnormal ECG Confirmed by CHRISTINA DELGADILLO, JANE ([id number]), technical writer and editor EN HERNANDEZ ([id number]) on 04/08/2025 6:21:31 AM Referred By: Confirmed By: JANE VASQUEZ MD
[2025-04-04 00:20] VITALS: BP 103/51; PULSE 63; RESP 16; TEMP 36.6; O2SAT 95
[2025-04-04 04:05] VITALS: BP 123/49; PULSE 73; RESP 14; TEMP 36.9; O2SAT 96
--- NOTE | 2025-04-04 05:55 | EKG12_ITS ---
Test Reason : STRESS TEST Blood Pressure : */* mmHG Vent. Rate : 80 BPM Atrial Rate : 80 BPM P-R Int : 206 ms QRS Dur : 158 ms QT Int : 436 ms P-R-T Axes : 80 -36 122 degrees QTcB Int : 502 ms Normal sinus rhythm Left axis deviation Left bundle branch block Abnormal ECG When compared with ECG of 03-Apr-2025 20:25, MANUAL COMPARISON REQUIRED DATA IS UNCONFIRMED Confirmed by CHRISTINA DELGADILLO, JANE ([id number]), mapping editor EN HERNANDEZ ([id number]) on 04/08/2025 6:37:58 AM Referred By: KEIRA Confirmed By: JANE VASQUEZ MD
[2025-04-04 06:19] LABS: Hematocrit 33.7 % (37-47); Hemoglobin 10.6 g/dL (12.0-15.0); Immature Granulocytes Count 0.030 X10^3/uL (0.0-0.0); Mean Corp Hgb Conc 31.5 g/dL (32-36); Mean Corpuscular Volume 93.9 fL (81-99); Mean Platelet Vol. 10.4 fl (6.2-12.0); NRBC Flagged by Analyzer 0 % (0-5); Platelet Count 250 K/mm3 (150-450); RBC Distribution Width CV 14.8 % (11.6-14.6); RBC Distribution Width SD 50.9 fl (35.1-43.9); Red Blood Count 3.59 M/mm3 (4.2-5.4); White Blood Count 7.6 K/mm3 (4.4-11.0)
[2025-04-04 07:02] LABS: Anion Gap 12 (5-15); BUN 15 mg/dL (4-19); BUN/Creat Ratio 10.9 RATIO (10-20); Calcium,Total 9.2 mg/dL (7.6-11.0); Carbon Dioxide 29.2 mmol/L (21.0-32.0); Chloride 101 mmol/L (98-108); Estimated Creatinine Clearance 24.18 ml/min (50-250); Glucose 79 mg/dL (70-99); Potassium 3.5 mmol/L (3.3-5.1)
--- NOTE | 2025-04-04 08:43 | PCM.PN.HOSP ---
Reason for Visit Chief Complaint: Chest pain Subjective Subjective Feeling well. Had some sharp chest pain last night, but this resolved. Objective Data Objective Data Vital Signs: Vital Signs Temp Pulse Resp BP Pulse Ox O2 Del Method 36.9 C 73 14 123/49 H 96 Room Air 04/04/25 04:05 04/04/25 04:05 04/04/25 04:05 04/04/25 04:05 04/04/25 04:05 04/04/25 04:10 Oxygen Delivery Method Room Air Weight: 58.695 kg Body Mass Index (BMI) 23.6 Intake & Output: Intake and Output for Last 24 Hours 04/02/25 04/03/25 04/04/25 23:59 23:59 23:59 Intake Total 480 / 480 0 / 0 Balance 480 / 480 0 / 0 Lab / Micro Data 04/04/25 05:44 04/04/25 05:44 Labs: Laboratory Results - last 24 hr 04/03/25 13:00: WBC 7.6, RBC 3.59 L, Hgb 10.5 L, Hct 33.9 L, MCV 94.4, MCH 29.2, MCHC 31.0 L, RDW Std Deviation 50.7 H, RDW Coeff of Velasquez 14.8 H, Plt Count 279, MPV 10.6, Immature Gran % (Auto) 0.300, Neut % (Auto) 73.7 H, Lymph % (Auto) 11.6 L, [place] % (Auto) 10.3 H, Eos % (Auto) 3.4, Baso % (Auto) 0.7, Absolute Neuts (auto) 5.6, Absolute Lymphs (auto) 0.88, Nucleated RBC % 0, Sodium 141, Potassium 4.0, Chloride 98, Carbon Dioxide 28.1, Anion Gap 15, BUN 14, Creatinine 1.35 H, Est GFR (MDRD) Non-Af 39 L, BUN/Creatinine Ratio 10.2, Glucose 125 H, Calcium 9.3, Troponin T High Sens 34 H 04/03/25 15:04: Troponin T Hi Sens 2 Hr 30 H 04/03/25 17:30: Troponin T Hi Sens 4Hr 28 H 04/04/25 05:44: WBC 7.6, RBC 3.59 L, Hgb 10.6 L, Hct 33.7 L, MCV 93.9, MCH 29.5, MCHC 31.5 L, RDW Std Deviation 50.9 H, RDW Coeff of Velasquez 14.8 H, Plt Count 250, MPV 10.4, Immature Gran % (Auto) 0.400, Neut % (Auto) 76.8 H, Lymph % (Auto) 9.2 L, [place] % (Auto) 9.4, Eos % (Auto) 3.7, Baso % (Auto) 0.5, Absolute Neuts (auto) 5.9, Absolute Lymphs (auto) 0.70 L, Nucleated RBC % 0, Sodium 142, Potassium 3.5, Chloride 101, Carbon Dioxide 29.2, Anion Gap 12, BUN 15, Creatinine 1.37 H, Estim Creat Clear Calc 24.18 L, Est GFR (MDRD) Non-Af 38 L, BUN/Creatinine Ratio 10.9, Glucose 79, Calcium 9.2 Radiography Diagnostic Testing: Radiology Impression Chest X-Ray 04/03/25 13:35 IMPRESSION: No Acute Findings. Reading Location: [facility] Physical Exam Const alert and no apparent distress Constitutional Narrative: normal gait. non-toxic. plaque lesions on leg and back. Assessment & Plan Assessment/Plan (1) Chest pain: PLAN: In the setting of PAD. Patient will be brought into the hospital under observation status. Consultation to cardiology. Will put an order for a stress test in case cardiology decides for it to be done that we do not delay her stay by another day by waiting on her having stress test. Troponins are elevated though this appears to be more chronic than actually an acute issue. Not associated with demand ischemia or primary event either. ASA ordered, but pt declined given yellow dye allergy. Seen by cardiology today who feels her symptoms are musculoskeletal. No additional work up at this time. Also, recommending low-dose amiolodipine. PLAN: Plan PAD: Continue with clopidogrel psoriasis VTE prophylaxis: Low risk given observation status. CODE STATUS: I discussed with the patient and the patient at this point in time wishes to be full code.
--- NOTE | 2025-04-04 08:52 | PN.CARD_ITS ---
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 Cardiology consulted for chest pain. Patient overnight remained HDS. No episodes of chest pain similar to presentation yesterday. She feels her baseline. 14 point ROS reviewed, and negative unless specified in HPI above. Objective Data Vital Signs: Vital Signs Temp Pulse Resp BP Pulse Ox O2 Del Method 98.4 F 73 14 123/49 H 96 Room Air 04/04/25 04:05 04/04/25 04:05 04/04/25 04:05 04/04/25 04:05 04/04/25 04:05 04/04/25 04:10 Oxygen Delivery Method Room Air Weight: 129 lb 6.4 oz Body Mass Index (BMI) 23.6 Intake & Output: Intake and Output for Last 24 Hours 04/02/25 04/03/25 04/04/25 23:59 23:59 23:59 Intake Total 480 / 480 0 / 0 Balance 480 / 480 0 / 0 Lab / Micro Data 04/04/25 05:44 04/04/25 05:44 Labs: Laboratory Results - last 24 hr 04/03/25 13:00: WBC 7.6, RBC 3.59 L, Hgb 10.5 L, Hct 33.9 L, MCV 94.4, MCH 29.2, MCHC 31.0 L, RDW Std Deviation 50.7 H, RDW Coeff of Velasquez 14.8 H, Plt Count 279, MPV 10.6, Immature Gran % (Auto) 0.300, Neut % (Auto) 73.7 H, Lymph % (Auto) 11.6 L, [place] % (Auto) 10.3 H, Eos % (Auto) 3.4, Baso % (Auto) 0.7, Absolute Neuts (auto) 5.6, Absolute Lymphs (auto) 0.88, Nucleated RBC % 0, Sodium 141, Potassium 4.0, Chloride 98, Carbon Dioxide 28.1, Anion Gap 15, BUN 14, C reatinine 1.35 H, Est GFR (MDRD) Non-Af 39 L, BUN/Creatinine Ratio 10.2, Glucose 125 H, Calcium 9.3, Troponin T High Sens 34 H 04/03/25 15:04: Troponin T Hi Sens 2 Hr 30 H 04/03/25 17:30: Troponin T Hi Sens 4Hr 28 H 04/04/25 05:44: WBC 7.6, RBC 3.59 L, Hgb 10.6 L, Hct 33.7 L, MCV 93.9, MCH 29.5, MCHC 31.5 L, RDW Std Deviation 50.9 H, RDW Coeff of Velasquez 14.8 H, Plt Count 250, MPV 10.4, Immature Gran % (Auto) 0.400, Neut % (Auto) 76.8 H, Lymph % (Auto) 9.2 L, [place] % (Auto) 9.4, Eos % (Auto) 3.7, Baso % (Auto) 0.5, Absolute Neuts (auto) 5.9, Absolute Lymphs (auto) 0.70 L, Nucleated RBC % 0, Sodium 142, Potassium 3.5, Chloride 101, Carbon Dioxide 29.2, Anion Gap 12, BUN 15, Creatinine 1.37 H, Estim Creat Clear Calc 24.18 L, Est GFR (MDRD) Non-Af 38 L, BUN/Creatinine Ratio 10.9, Glucose 79, Calcium 9.2 Cardiology Labs/Tests 04/03/25 13:00: WBC 7.6, RBC 3.59 L, Hgb 10.5 L, Hct 33.9 L, MCV 94.4, MCH 29.2, MCHC 31.0 L, Plt Count 279, MPV 10.6, Immature Gran % (Auto) 0.300, Neut % (Auto) 73.7 H, Lymph % (Auto) 11.6 L, [place] % (Auto) 10.3 H, Eos % (Auto) 3.4, Baso % (Auto) 0.7, Absolute Neuts (auto) 5.6, Nucleated RBC % 0, Sodium 141, Potassium 4.0, Chloride 98, Carbon Dioxide 28.1, Anion Gap 15, BUN 14, C reatinine 1.35 H, Est GFR (MDRD) Non-Af 39 L, BUN/Creatinine Ratio 10.2, Glucose 125 H, Calcium 9.3 04/04/25 05:44: WBC 7.6, RBC 3.59 L, Hgb 10.6 L, Hct 33.7 L, MCV 93.9, MCH 29.5, MCHC 31.5 L, Plt Count 250, MPV 10.4, Immature Gran % (Auto) 0.400, Neut % (Auto) 76.8 H, Lymph % (Auto) 9.2 L, [place] % (Auto) 9.4, Eos % (Auto) 3.7, Baso % (Auto) 0.5, Absolute Neuts (auto) 5.9, Nucleated RBC % 0, Sodium 142, Potassium 3.5, Chloride 101, Carbon Dioxide 29.2, Anion Gap 12, BUN 15, Creatinine 1.37 H, Est GFR (MDRD) Non-Af 38 L, BUN/Creatinine Ratio 10.9, Glucose 79, Calcium 9.2 Rhythm: EKG: ECHO: Stress Test: Cardiac Cath: PCI: CT Surgery: Holter monitor: EPS: PPM: CXR: Chest CT Scan: Radiography Diagnostic Testing: Radiology Impression Chest X-Ray 04/03/25 13:35 IMPRESSION: No Acute Findings. Reading Location: [facility] Physical Exam Narrative ?Gen: A&Ox3, NAD ?HEENT: Normocephalic/Atraumatic, MMM ?Neck: Supple, no JVD ?Pulm: Normal work of breathing, CTA bilaterally with no wheezes or crackles ?CV: RRR, normal S1/S2, no m/r/g ?Abd: Soft, NT/ND ?Extr: Warm to touch, no LE edema, distal pulses intact and symmetric in upper and lower extremities ?Neuro: No gross focal deficits, normal speech ?Psych: Normal affect, answers questions appropriately Assessment & Plan Assessment/Plan (1) Chest pain: PLAN: Assessment/Plan (1) Chest pain: PLAN: - Described as sudden, unpredictable, 7 out of 10 severity, located just inferior to the nipple, nonradiating, stabbing in character. Patient denies any chest pain like this previously, and notes no predictable exertional symptoms - HST: 34-->30, (baseline 30s to 50s), EKG with left bundle branch block, unchanged from previous - Troponins elevated in the setting of severe chronic coronary disease/chronic myocardial injury and also in the setting of CKD, current creatinine 1.35 - Etiology of chest pain is likely musculoskeletal; presentation is not consistent with ACS and possibly progression of stable angina - Patient currently chest pain-free and hemodynamically stable Recommendations - No further cardiac testing needed at this time - Continue home metoprolol tartrate 50 mg every 12 hours - Continue Plavix 75 mg daily, Zetia 10 mg daily, furosemide 40 mg daily - Goal blood pressure is less than 130/80; reasonable to start amlodipine 2.5 mg daily and uptitrate as tolerated if needed for blood pressure control/no contraindications and would also be beneficial if there is a component of stable angina
[2025-04-04 09:17] VITALS: BP 128/64; PULSE 86; RESP 18; TEMP 36.8; O2SAT 92
--- NOTE | 2025-04-04 10:12 | PCM.DC.SUM ---
Providers Date of Admission: 04/03/25 Primary Care Physician: Dr. Daisha Ramirez, DO Consultations 04/03/25 18:53 Consult: Cardiology Routine Consulting Provider: Ari Hernandez Reason for Consult: chest pain EMERGENT Consult: No MD Notified: Yes Date Notified: 04/03/25 Time Notified: 17:42 Method of Notification: ED Physician Initiated Reason For Visit: CHEST PAIN Diagnosis Discharge Diagnosis (1) Chest pain: Status: Acute Code(s): R07.9 - Chest pain, unspecified Plan: In the setting of PAD. Patient will be brought into the hospital under observation status. Consultation to cardiology. Will put an order for a stress test in case cardiology decides for it to be done that we do not delay her stay by another day by waiting on her having stress test. Troponins are elevated though this appears to be more chronic than actually an acute issue. Not associated with demand ischemia or primary event either. ASA ordered, but pt declined given yellow dye allergy. Seen by cardiology today who feels her symptoms are musculoskeletal. No additional work up at this time. Also, recommending low-dose amlodipine, however, pt with a blue-dye allergy, so will hold off. Plan PAD: Continue with clopidogrel psoriasis VTE prophylaxis: Low risk given observation status. CODE STATUS: I discussed with the patient and the patient at this point in time wishes to be full code. Medications at Discharge Home Medications ezetimibe 10 mg tablet 10 mg PO QHS cholesterol 09/01/13 pantoprazole 40 mg tablet,delayed release 40 mg PO DAILY gerd 09/01/13 clopidogrel 75 mg tablet 75 mg PO DAILY blood thinner 04/18/21 metoprolol tartrate 50 mg tablet 50 mg PO Q12H blood pressure 06/09/23 potassium chloride 10 mEq tablet,extended release 10 meq PO DAILY LASIX #30 tabs 06/11/23 calcipotriene-betamethasone 0.005 %-0.064 % topical ointment 1 applic topical DAILY PRN PSORASIS 03/06/24 acetaminophen 500 mg tablet (Tylenol Extra Strength) 500 mg PO Q6H PRN PAIN/FEVER 07/20/24 furosemide 40 mg tablet 40 mg PO QAM SWELLING 07/20/24 niacin 500 mg tablet 1,000 mg PO BID 03/04/25 nitroglycerin 0.4 mg sublingual tablet 0.4 mg sublingual Q5M PRN Chest Pain #25 tabs 04/02/25 Hospital Course Operations None Procedures None Weight / BMI Weight Weight: 58.695 kg Body Mass Index (BMI) 23.6 ABG / Lab / Microbiology Data 04/04/25 05:44 04/04/25 05:44 Laboratory: Laboratory Results - last 24 hr 04/03/25 13:00: WBC 7.6, RBC 3.59 L, Hgb 10.5 L, Hct 33.9 L, MCV 94.4, MCH 29.2, MCHC 31.0 L, RDW Std Deviation 50.7 H, RDW Coeff of Velasquez 14.8 H, Plt Count 279, MPV 10.6, Immature Gran % (Auto) 0.300, Neut % (Auto) 73.7 H, Lymph % (Auto) 11.6 L, [place] % (Auto) 10.3 H, Eos % (Auto) 3.4, Baso % (Auto) 0.7, Absolute Neuts (auto) 5.6, Absolute Lymphs (auto) 0.88, Nucleated RBC % 0, Sodium 141, Potassium 4.0, Chloride 98, Carbon Dioxide 28.1, Anion Gap 15, BUN 14, Creatinine 1.35 H, Est GFR (MDRD) Non-Af 39 L, BUN/Creatinine Ratio 10.2, Glucose 125 H, Calcium 9.3, Troponin T High Sens 34 H 04/03/25 15:04: Troponin T Hi Sens 2 Hr 30 H 04/03/25 17:30: Troponin T Hi Sens 4Hr 28 H 04/04/25 05:44: WBC 7.6, RBC 3.59 L, Hgb 10.6 L, Hct 33.7 L, MCV 93.9, MCH 29.5, MCHC 31.5 L, RDW Std Deviation 50.9 H, RDW Coeff of Velasquez 14.8 H, Plt Count 250, MPV 10.4, Immature Gran % (Auto) 0.400, Neut % (Auto) 76.8 H, Lymph % (Auto) 9.2 L, [place] % (Auto) 9.4, Eos % (Auto) 3.7, Baso % (Auto) 0.5, Absolute Neuts (auto) 5.9, Absolute Lymphs (auto) 0.70 L, Nucleated RBC % 0, Sodium 142, Potassium 3.5, Chloride 101, Carbon Dioxide 29.2, Anion Gap 12, BUN 15, Creatinine 1.37 H, Estim Creat Clear Calc 24.18 L, Est GFR (MDRD) Non-Af 38 L, BUN/Creatinine Ratio 10.9, Glucose 79, Calcium 9.2 Radiography Diagnostic Testing: Radiology Impression Chest X-Ray 04/03/25 13:35 IMPRESSION: No Acute Findings. Reading Location: [facility] D/C Instructions DC O2, CPAP, BIPAP Needs Home O2 Discharge instructions: No Meaningful Use Info Meaningful Use Meaningful Use Diagnoses (Choose all that apply): None applicable Discharge Plan Admission Admit Date/Time: 04/03/25 17:39 Primary Reason for Your Visit: chest pain Attending Provider: David Mcguire Primary Care Provider: Daisha Ramirez Consulting Providers: Ari Hernandez Discharge Orders/Prescriptions Prescriptions: Continued acetaminophen [Tylenol Extra Strength] 500 mg tablet 500 mg PO Q6H PRN (Reason: PAIN/FEVER) nitroglycerin 0.4 mg tablet, sublingual 0.4 mg SUBLINGUAL Q5M PRN (Reason: Chest Pain) Qty: 25 1RF pantoprazole 40 MG tablet 40 mg PO DAILY Patient Comments: stomach acid ezetimibe 10 MG tablet 10 mg PO QHS Patient Comments: cholesterol clopidogrel 75 mg tablet 75 mg PO DAILY Patient Comments: ON HOLD, FOR EGD 03/07 metoprolol tartrate 50 mg tablet 50 mg PO Q12H Patient Comments: TAKE 1 TABLET BY MOUTH TWICE A DAY potassium chloride 10 mEq tablet extended release 10 meq PO DAILY Qty: 30 0RF calcipotriene-betamethasone 0.005-0.064 % ointment 1 applic topical DAILY PRN (Reason: PSORASIS) furosemide 40 mg tablet 40 mg PO QAM niacin 500 mg tablet 1,000 mg PO BID Referrals / Follow Up: [facility] [Provider Group] - 05/27/25 2:15 pm David Guzmán MD [Med Staff - Active Staff, Vascular Surgery] - 04/12/25 3:00 pm Daisha Ramirez DO [Primary Care Provider, Internal Medicine] - Within 2 Weeks Disposition Disposition (needs filled in before D/C Order can be placed): Home, Self Care Charges/Coding Visit Charges Inpatient E&M: 59286 Disch Hosp
--- NOTE | 2025-04-04 11:15 | CASEMGMT ---
Patient has order for discharge. RN CM in to discuss needs at discharge. Patient denies needs or help at discharge. Patient had no further questions or concerns.
--- NOTE | 2025-04-04 11:16 | PHA.DC.MR.R ---
Pharmacy [facility] Reconciliation Pharmacy Service has performed discharge medication reconciliation for this patient. The patient's discharge medication list was reviewed for discrepancies and discrepancies were resolved. Medications at Discharge Home Medications ezetimibe 10 mg tablet 10 mg PO QHS cholesterol 09/01/13 pantoprazole 40 mg tablet,delayed release 40 mg PO DAILY gerd 09/01/13 clopidogrel 75 mg tablet 75 mg PO DAILY blood thinner 04/18/21 metoprolol tartrate 50 mg tablet 50 mg PO Q12H blood pressure 06/09/23 potassium chloride 10 mEq tablet,extended release 10 meq PO DAILY LASIX #30 tabs 06/11/23 calcipotriene-betamethasone 0.005 %-0.064 % topical ointment 1 applic topical DAILY PRN PSORASIS 03/06/24 acetaminophen 500 mg tablet (Tylenol Extra Strength) 500 mg PO Q6H PRN PAIN/FEVER 07/20/24 furosemide 40 mg tablet 40 mg PO QAM SWELLING 07/20/24 niacin 500 mg tablet 1,000 mg PO BID 03/04/25 nitroglycerin 0.4 mg sublingual tablet 0.4 mg sublingual Q5M PRN Chest Pain #25 tabs 04/02/25
== END 2025-04-04 11:28 | disposition home or self-care (01) ==
LOC: ED 17:37 → PCU 18:44
PROVIDERS: Emergency Provider Emergency Medicine; PCP Internal Medicine
DX: R07.89 Other chest pain (principal); I48.0 Paroxysmal atrial fibrillation; E11.51 Type 2 diabetes mellitus with diabetic peripheral angiopathy without gangrene; Z87.891 Personal history of nicotine dependence; J94.2 Hemothorax; Z79.02 Long term (current) use of antithrombotics/antiplatelets; E78.00 Pure hypercholesterolemia, unspecified; R00.2 Palpitations; I25.10 Atherosclerotic heart disease of native coronary artery without angina pectoris; K21.9 Gastro-esophageal reflux disease without esophagitis; Z79.899 Other long term (current) drug therapy; I10 Essential (primary) hypertension; R06.01 Orthopnea; Z95.2 Presence of prosthetic heart valve; G47.33 Obstructive sleep apnea (adult) (pediatric); I44.7 Left bundle-branch block, unspecified
CPT/HCPCS: 36415; 71045; 80048; 84484; 85025; 93005; 99221; 99285; A4216; G0378; J2785